=== PATIENT | female | born 1945 | race Caucasian/White ===

== ENCOUNTER 2018-04-29 09:47 | Emergency (ER) | payer MEDICARE, SELFPAY ==
[2018-04-29 09:48] VITALS: BP 160/95; PULSE 89; RESP 18; TEMP 36.4; O2SAT 100; BMI 30.2
--- NOTE | 2018-04-29 10:44 | RAD_ITS ---
STUDY: X-RAY - RIGHT CLAVICLE REASON FOR EXAM: Female, 72 years old. History of fall. Bruising TECHNIQUE: 2 view(s) of the clavicle. COMPARISON: None. FINDINGS: Nondisplaced distal clavicular fracture. No evidence of shoulder dislocation. RAD/Clavicle IMPRESSION: Nondisplaced distal clavicular fracture Electronically Signed: Moe Eller DO at 11:24 EST Tel , Service support ,
[2018-04-29] MEDS: Diphth,Pertuss(Acell),Tet Vac 0.5 ML Vial IM (10:52)
--- NOTE | 2018-04-29 11:38 | ED.VISSUMM ---
- ER Visit Summary Date of Service: 04/29/18 Chief Complaint: Fall History of Present Illness: The patient is a 72 F who presents with right shoulder injury that occurred after a fall last night. Patient states she tripped and fell on her right side. Patient denies any head injury or loss of consciousness. Patient states the pain is worse over the right shoulder. Patient states the pain is worse with any movement. Patient also admits to skin tears of her right forearm. Patient denies any head injury or loss of consciousness. Patient denies any paresthesias or weakness. Physical Examination: Vital signs are stable. Patient is afebrile. Patient is in no acute distress. Musculoskeletal exam reveals tenderness, edema, and ecchymosis over the right clavicle. There is painful range of motion with the right shoulder. There is no deformity noted. There is no tenderness over the cervical spine but there is some mild tenderness of the right cervical paraspinal muscles. There is good range of motion. Strength is 5/5 bilaterally upper and lower extremities. There are no sensory deficits noted. Heart was regular rate and rhythm. Lungs are clear and equal bilaterally. Skin is warm dry. There are superficial skin tears over the ulnar aspect of the right forearm. There is no active bleeding noted. There is no pain over the elbow or forearm. The remaining physical exam is within normal limits. Test Results: X-rays of the right clavicle were obtained. There is a nondisplaced fracture of the distal right clavicle. Emergency Department Course and Treatment: The wounds were cleaned and dressed. Patient was given a tetanus booster. Patient was given a right arm sling for pain. Patient was instructed to follow-up with her primary care physician in 7-10 days. Patient and her understood and were agreeable with the plan. All questions were answered. Disposition: Discharge home Impression: Right clavicle fracture This note was generated with [employer] dictation software. It may contain incorrect words, spelling, and punctuation that were not noted in review of the chart prior to signing ED Disposition - Plan for ED Patient: Disposition: Home or Assisted Living Diagnosis: Right clavicle fracture, Skin tear of right forearm without complication Instructions: ED Fx Clavicle Referrals: Jose Carlos Pompa MD [Primary Care Provider] -
--- NOTE | 2018-04-29 11:46 | ED.DCSUM_ITS ---
- ER Visit Summary Date of Service: 04/29/18 Chief Complaint: Fall History of Present Illness: The patient is a 72 F who presents with right shoulder injury that occurred after a fall last night. Patient states she tripped and fell on her right side. Patient denies any head injury or loss of consciousness. Patient states the pain is worse over the right shoulder. Patient states the pain is worse with any movement. Patient also admits to skin tears of her right forearm. Patient denies any head injury or loss of consciousness. Patient denies any paresthesias or weakness. Physical Examination: Vital signs are stable. Patient is afebrile. Patient is in no acute distress. Musculoskeletal exam reveals tenderness, edema, and ecchymosis over the right clavicle. There is painful range of motion with the right shoulder. There is no deformity noted. There is no tenderness over the cervical spine but there is some mild tenderness of the right cervical paraspinal muscles. There is good range of motion. Strength is 5/5 bilaterally upper and lower extremities. There are no sensory deficits noted. Heart was regular rate and rhythm. Lungs are clear and equal bilaterally. Skin is warm dry. There are superficial skin tears over the ulnar aspect of the right forearm. There is no active bleeding noted. There is no pain over the elbow or forearm. The remaining physical exam is within normal limits. Test Results: X-rays of the right clavicle were obtained. There is a nondisplaced fracture of the distal right clavicle. Emergency Department Course and Treatment: The wounds were cleaned and dressed. Patient was given a tetanus booster. Patient was given a right arm sling for pain. Patient was instructed to follow-up with her primary care physician in 7- 10 days. Patient and her understood and were agreeable with the plan. All questions were answered. Disposition: Discharge home Impression: Right clavicle fracture This note was generated with [employer] dictation software. It may contain incorrect words, spelling, and punctuation that were not noted in review of the chart prior to signing ED Disposition - Plan for ED Patient: Disposition: Home or Assisted Living Diagnosis: Right clavicle fracture, Skin tear of right forearm without complication Instructions: ED Fx Clavicle Referrals: Jose Carlos Pompa MD [Primary Care Provider] -
== END 2018-04-29 11:55 | disposition home or self-care (01) ==
PROVIDERS: Emergency Provider Emergency Medicine; Family Provider Family Medicine; PCP Family Medicine
DX: S42.001A Fracture of unspecified part of right clavicle, initial encounter for closed fracture (principal); S51.811A Laceration without foreign body of right forearm, initial encounter; W18.09XA Striking against other object with subsequent fall, initial encounter; Y93.9 Activity, unspecified; Y92.89 Other specified places as the place of occurrence of the external cause; Y99.9 Unspecified external cause status; Z23 Encounter for immunization; M79.7 Fibromyalgia; M81.0 Age-related osteoporosis without current pathological fracture
CPT/HCPCS: 73000; 90471; 90715; 99284

== ENCOUNTER 2018-11-28 14:06 | Emergency (ER) | payer MEDICARE, SELFPAY ==
[2018-11-28 14:07] VITALS: BP 142/59; PULSE 101; RESP 15; TEMP 36.6; O2SAT 95; BMI 26.4
--- NOTE | 2018-11-28 14:28 | RAD_ITS ---
STUDY: X-RAY - PELVIS AND RIGHT HIP REASON FOR EXAM: Female, 73 years old. Right hip pain following a fall. TECHNIQUE: 3 views of the pelvis and hip. COMPARISON: Comparison is made with prior examination dated December 01, 2015. FINDINGS: Moderate amount of fecal material is seen in the colon. Normal visualized soft tissue structures. Normal bilateral iliac wings, sacroiliac joints and visualized sacrum. Healed right superior and inferior pubic rami fracture. Normal pubic symphysis. Normal bilateral ischial tuberosities. Status post intramedullary adolfo and compression screw fixation of the right intertrochanteric fracture. Normal acetabulum. Normal hip joint. RAD/HIP, UNI W/ Pelvis 2-3 Views IMPRESSION: Healed right superior and inferior pubic rami fractures. Prior ORIF of the right intertrochanteric fracture. Electronically Signed: Ha Stephen, at 15:08 EDT , Service support ,
--- NOTE | 2018-11-28 14:39 | ED.DCSUM_ITS ---
- ER Visit Summary Date of Service: 11/28/18 Chief Complaint: Right hip pain History of Present Illness: The patient is a 73 F who states that today she sustained a fall after tripping on sidewalk and landing on the left hip. She notes superficial abrasion to the right palm. She is eventually able to get up and ambulate. She typically uses a cane and is now switched to a walker. She denies striking her head or any neck or back pain. She notes pain over the medial aspect of the right upper thigh and hip. She has had prior ORIF by Dr. Chavez in 2016 of the left hip (intramedullary rodding and compression screw) Physical Examination: Afebrile vital signs are stable Gen: Well-nourished well-developed Head: Normocephalic atraumatic Eyes: Perrl EOMI ENT: TMs clear no rhinorrhea moist mucous membranes Neck: Supple no lymphadenopathy no JVD nontender CVS: Regular rate rhythm no murmurs normal S1-S2 Respiratory: No distress clear to auscultation bilaterally chest nontender Abdomen: Soft nontender nondistended normal bowel sounds no masses Back: Nontender Extremity: Tender to palpation of the medial proximal thigh. Negative logroll. No shortening. No rotation. Neurovascular intact distal no edema Skin: Normal color no rash Neuro: alert orientated ?3 CN II-XII intact normal strength sensation reflexes Psych: Normal affect normal mood Test Results: X-rays of the right hip and pelvis were obtained this was read as negative for acute fracture Emergency Department Course and Treatment: She was instructed to use her walker. Ice the area anti-inflammatories. Follow-up with primary care if not improving Impression: 1. Mechanical fall 2. Right hip contusion This note was generated with [employer] dictation software. It may contain incorrect words, spelling, and punctuation that were not noted in review of the chart prior to signing ED Disposition - Plan for ED Patient: Disposition: Home or Assisted Living Instructions: Hip Contusion Referrals: Jose Carlos Pompa MD [Primary Care Provider] - 1 Week if not improving
== END 2018-11-28 15:31 | disposition home or self-care (01) ==
PROVIDERS: Emergency Provider Emergency Medicine; Family Provider Family Medicine; PCP Family Medicine
DX: S60.511A Abrasion of right hand, initial encounter (principal); S70.01XA Contusion of right hip, initial encounter; W01.0XXA Fall on same level from slipping, tripping and stumbling without subsequent striking against object, initial encounter; Y92.480 Sidewalk as the place of occurrence of the external cause
CPT/HCPCS: 73502; 99283

== ENCOUNTER 2020-05-22 08:08 | Outpatient (RCR) | payer MEDICARE, SELFPAY ==
[2020-05-22] MEDS: COVID-19 VACC, MRNA(PFIZER)/PF 30 MCG/0.3 ML SYRINGE IM (18:31)
[2020-06-12] MEDS: COVID-19 VACC, MRNA(PFIZER)/PF 30 MCG/0.3 ML SYRINGE IM (18:29)
== END 2020-08-19 23:59 ==
LOC: IMMUN 08:08
PROVIDERS: PCP Family Medicine; Referring Provider Family Medicine; Visit Provider Family Medicine
DX: Z23 Encounter for immunization (principal)
CPT/HCPCS: 0001A; 0002A; 91300

== ENCOUNTER 2022-09-07 16:56 | Inpatient (IN) | payer MEDICARE, SELFPAY ==
[2022-09-07] VITALS (7 sets, daily range): BP systolic 95–176; BP diastolic 60–100; PULSE 86–94; RESP 14–18; TEMP 36.1–36.6; O2SAT 92–100; BMI 30.4; BMI 27.2
--- NOTE | 2022-09-07 17:11 | EKG12_ITS ---
Test Reason : LE PAIN Blood Pressure : / mmHG Vent. Rate : 093 BPM Atrial Rate : 093 BPM P-R Int : 140 ms QRS Dur : 068 ms QT Int : 388 ms P-R-T Axes : 046 010 038 degrees QTc Int : 482 ms Normal sinus rhythm Normal ECG Confirmed by CAITLIN SCHMIDT, TAYLOR ([id number]), script editor ARASH BARRAZA ([id number]) on 09/08/2022 10:05:09 AM Referred By: Confirmed By:TAYLOR TUCKER MD
[2022-09-07 17:35] LABS: Absolute Lymphocyte Count 1.37 X10^3/uL (0.83-4.51); Absolute Neutrophil Count 5.5 X10^3/uL (2.0-7.7); Basophil# 0.05 X10^3/uL; Basophil% 0.6 % (0-1); Eosinophils% 3.8 % (0-5); Hemoglobin 11.7 g/dL (12.0-15.0); Lymphocyte # 1.37 X10^3/ul (0.83-4.51); Lymphocyte % 17.5 % (19-41); Mean Corp Hgb Conc 32.5 g/dL (32-36); Mean Corpuscular Hgb 30.8 pg (27.0-32.0); Mean Corpuscular Volume 94.7 fL (81-99); Mean Platelet Vol. 9.8 fl (6.2-12.0); Monocyte% 7.7 % (0-10); NRBC Flagged by Analyzer 0 % (0-5); Neutrophil # 5.48 X10^3/uL (2.7-7.7); Neutrophil % 70.1 % (47-70); Platelet Count 296 K/mm3 (150-450); RBC Distribution Width SD 45.5 fl (35.1-43.9); White Blood Count 7.8 K/mm3 (4.4-11.0)
--- NOTE | 2022-09-07 17:35 | RAD_ITS ---
INDICATION: pain EXAMINATION/TECHNIQUE: X-RAY - XR Hip Unilateral with Pelvis when performed; 2-3 Views COMPARISON: 11/28/2018. FINDINGS: Acute, comminuted basicervical fracture of the left femoral neck with mild lateral displacement of the femoral shaft and mild varus angulation. No additional fracture. Prior internal fixation of the right hip. No destructive bone changes. Joint spaces are well-maintained. Normal alignment. Soft tissues are unremarkable. No radiopaque foreign body or soft tissue gas. RAD/HIP, UNI W/ Pelvis 2-3 Views IMPRESSION: Acute fracture of the left femoral neck. Electronically Signed: Janette Levine MD at 18:06 EDT Reading Location ID and State: [id number] / Tel , Service support ,
--- NOTE | 2022-09-07 17:35 | RAD_ITS ---
INDICATION: preop EXAMINATION/TECHNIQUE: X-RAY - XR Chest 1 View COMPARISON: 03/17/2016. FINDINGS: LINES/DEVICES: None. LUNGS: No consolidation, edema or effusion. No pneumothorax. MEDIASTINUM AND CARDIOVASCULAR STRUCTURES: Cardiac silhouette not enlarged. Central airways and mediastinal contour are unremarkable. BONES AND SOFT TISSUES: Prior lower thoracic vertebroplasty. Old healed right rib fractures. RAD/Chest 1 View (Portable) IMPRESSION: No radiographic evidence of acute cardiopulmonary disease. Electronically Signed: Janette Levine MD at 18:12 EDT Reading Location ID and State: [id number] / Tel , Service support ,
[2022-09-07 18:09] LABS: Anion Gap 7 (5-15); BUN 21 mg/dL (7-18); BUN/Creat Ratio 25.9 RATIO (10-20); Calcium,Total 8.4 mg/dL (8.5-10.1); Chloride 111 mmol/L (98-107); Creatinine, Serum 0.81 mg/dL (0.55-1.02); EST Glomerular Filtration Rate 73 mL/min (>60); Est Glom Filt Rate - Afr Amer 89 mL/min (>60); Estimated Creatinine Clearance 45.98 ml/min; Glucose 102 mg/dL (74-106); Potassium 4.2 mmol/L (3.5-5.1); Sodium Level 140 mmol/L (136-145)
[2022-09-07 18:32] LABS: Mucous, Urine 0 SEEN /hpf (<or=2+)
[2022-09-07 18:33] LABS: Color, Urine Yellow (Yellow); Glucose, Dipstick Normal (Normal); Ketone-Dipstick 5 mg/dl (Negative); Leukocyte Esterase-Dipstick 25 /ul (Negative); Nitrite-Dipstick Positive (Negative); Occult Blood-Urine 50 /ul (Negative); Protein-Dipstick 15 mg/dl (Negative); Urine Bilirubin Dipstick Negative (Negative); Urine Clarity Sl. Cloudy (Clear); Urine Urobilinogen Normal (Normal)
[2022-09-07] MEDS: Morphine 4 MG/ML Syringe IV ×2 (18:50→19:50)
--- NOTE | 2022-09-07 18:59 | ED.VIS.LOWEX ---
HPI History of Present Illness Chief Complaint: Lower Extremity Injury Narrative Narrative: 76-year-old female status post mechanical fall after tripping and falling onto her left hip. She is unable to ambulate. She was transported by EMS. Report is that they gave her 200 mcg of fentanyl. Patient still having some pain. Denies hitting head or LOC. She is not on anticoagulation. She has history of right hip fracture distantly. [facility] Medical History Fibromyalgia Osteoporosis Home Medications calcium carbonate 600 mg calcium (1,500 mg) tablet 600 mg PO DAILY ##30 06/19/15 [Rx Last Taken Unknown] cholecalciferol (vitamin D3) 25 mcg (1,000 unit) tablet (Vitamin D3) 2,000 unit PO DAILY ##30 06/19/15 [Rx Last Taken Unknown] fluoxetine 20 mg capsule 20 mg PO BID ##60 06/19/15 [Rx Last Taken Unknown] cszedhss-wff-ajrof acid 0.4 mg-lycopene 300 mcg-lutein 250 mcg tablet (Centrum Silver) 1 ea PO DAILY ##30 06/19/15 [Rx Last Taken Unknown] acetaminophen 325 mg tablet (Tylenol) 650 mg PO Q6H PRN PRN Mild Pain (scale 0-3)/T>100.7 ##0 03/20/16 [Rx Last Taken Unknown] alendronate 70 mg tablet (Fosamax) 70 mg PO QWEEK ##1 03/20/16 [Rx Last Taken Unknown] aluminum-mag hydroxide-simethicone 400 mg-400 mg-40 mg/5 mL oral susp (Mag-Al Plus Extra Strength) 30 ml PO Q6H PRN PRN Gastric Burning ##0 03/20/16 [Rx Last Taken Unknown] cyclobenzaprine 10 mg tablet 5 mg PO TID PRN PRN Muscle Spasm ##0 03/20/16 [Rx Last Taken Unknown] docusate sodium 100 mg capsule (DOK) 200 mg PO BID PRN PRN Constipation ##0 03/20/16 [Rx Last Taken Unknown] levothyroxine 112 mcg tablet 88 mcg PO DAILY@0600 04/29/18 [History Last Taken Unknown] Allergy/AdvReac Type Severity Reaction Status Date / Time codeine Allergy Unknown Verified 09/07/22 17:01 codeine phosphate AdvReac Unknown Verified 09/07/22 17:01 [From Tylenol-Codeine #3] nabumetone [From Relafen] AdvReac Unknown Verified 09/07/22 17:01 naproxen AdvReac Unknown Verified 09/07/22 17:01 Social History Smoking Status: Never smoker ROS ROS ED Constitutional Constitutional ED: Denies chills, fever(s) or sweats Eyes Eyes: Denies blurry vision or change in vision ENT ENT ED: Denies ear pain or sore throat Cardiovascular Cardiovascular: Denies chest pain, palpitations or racing heartbeat Respiratory/Chest Respiratory/Chest: Denies cough, dyspnea or sputum Gastrointestinal Gastrointestinal: Denies abdominal pain, constipation, diarrhea, nausea or vomiting Genitourinary Genitourinary ED: Denies dysuria, hematuria or urinary frequency Musculoskeletal Musculoskeletal: Reports other Details: Pain in left hip Integumentary Denies abscess, Abrasions or rash Neurologic Neurologic: Denies headache(s), paresthesias or weakness Psychiatric Psychiatric: Denies anxiety, depression, suicidal ideation or suicidal thoughts Endocrine Endocrinology: Denies polydipsia or polyuria EXAM Physical Exam Const Vital Signs: 09/07/22 16:57 Temperature 97.5 F L Temperature Source Oral Pulse Rate 94 Respiratory Rate 16 Blood Pressure 159/100 H Blood Pressure Mean 119 Pulse Ox 97 Oxygen Delivery Method Room Air Positive well nourished General Appearance ED: NAD HEENT Reports moist mucous membranes normocephalic and atraumatic Resp normal respiratory effort and no retractions Cardio regular rate and regular rhythm Extremity Extremity Narrative: Tenderness palpation left greater trochanter. Positive logroll on the left. Neuro oriented x3 and CN's II-XII intact bilaterally Sensorium / Orientation: alert Psych mental status grossly normal Skin no wounds MDM MDM MDM Narrative Medical decision making narrative: Patient presenting with left hip pain. She states it was a mechanical fall. No head injury or LOC. She is not have any other complaints. CBC was obtained to assess white blood cell count, hemoglobin, platelets, differential. BMP to assess renal function, electrolytes. Urinalysis to assess for UTI. Encinas catheter was placed for patient comfort that she is not can be able to ambulate. Left hip x-ray was obtained as well as a chest x-ray for preoperative planning. EKG was also obtained for this reason. GI my interpretation shows normal sinus rhythm with a ventricular rate 93 bpm without sign of ischemic change or ectopy. Chest x-ray shows no acute process on my interpretation. Radiologist interprets this and agrees. Left hip x-ray shows a femoral neck fracture on my interpretation. Radiology interprets this and agrees. Urinalysis concerning for UTI so she was given a gram of Rocephin. Discussed with Dr. Manriquez. Will discuss with the hospitalist for admission. Impression: 1. Mechanical fall 2. Left hip fracture 3. UTI Lab Data Attestation: I reviewed the patient's lab results. Labs: Laboratory Results - last 24 hr 09/07/22 09/07/22 09/07/22 17:25 17:25 18:25 WBC 7.8 RBC 3.80 L Hgb 11.7 L Hct 36.0 L MCV 94.7 MCH 30.8 MCHC 32.5 RDW Std Deviation 45.5 H RDW Coeff of Serafin 13.0 Plt Count 296 MPV 9.8 Immature Gran % (Auto) 0.300 Neut % (Auto) 70.1 H Lymph % (Auto) 17.5 L Noble % (Auto) 7.7 Eos % (Auto) 3.8 Baso % (Auto) 0.6 Absolute Neuts (auto) 5.5 Absolute Lymphs (auto) 1.37 Nucleated RBC % 0 Sodium 140 Potassium 4.2 Chloride 111 H Carbon Dioxide 22.0 Anion Gap 7 BUN 21 H Creatinine 0.81 Estim Creat Clear Calc 45.98 Est GFR (MDRD) Af Amer 89 Est GFR (MDRD) Non-Af 73 BUN/Creatinine Ratio 25.9 H Glucose 102 Calcium 8.4 L Urine Color Yellow Urine Clarity Sl. Cloudy Urine pH 6.0 Ur Specific [place] 1.020 Urine Protein 15 H Urine Glucose (UA) Normal Urine Ketones 5 H Urine Occult Blood 50 H Urine Nitrite Positive H Urine Bilirubin Negative Urine Urobilinogen Normal Ur Leukocyte Esterase 25 H Radiography Diagnostic Testing: Clinical Impression(s) from Imaging Studies Chest X-Ray 09/07/22 17:35 IMPRESSION: No radiographic evidence of acute cardiopulmonary disease. Electronically Signed: Janette Levine MD at 18:12 EDT Reading Location ID and State: [id number] / Tel , Service support , Hip/Pelvis X-Ray 09/07/22 17:35 IMPRESSION: Acute fracture of the left femoral neck. Electronically Signed: Janette Levine MD at 18:06 EDT , Discharge Plan Triage Chief Complaint: Lower Extremity Injury ED Provider: Giancarlo Wooten Dx/Rx/DC Orders Prescriptions: No Action cholecalciferol (vitamin D3) [Vitamin D3] 1,000 UNIT tablet 2,000 unit PO DAILY Qty: 30 0RF calcium carbonate 600 MG tablet 600 mg PO DAILY Qty: 30 0RF fluoxetine 20 MG capsule 20 mg PO BID Qty: 60 0RF vuneikox-ctp-WB-lycopen-lutein [Centrum Silver] 1 EACH tablet 1 ea PO DAILY Qty: 30 0RF cyclobenzaprine 10 MG tablet 5 mg PO TID PRN PRN (Reason: Muscle Spasm) Qty: 0 0RF acetaminophen [Tylenol] 325 MG tablet 650 mg PO Q6H PRN PRN (Reason: Mild Pain (scale 0-3)/T>100.7) Qty: 0 0RF docusate sodium [DOK] 100 MG capsule 200 mg PO BID PRN PRN (Reason: Constipation ) Qty: 0 0RF alum-mag hydroxide-simeth [Mag-Al Plus Extra Strength] 30 ML suspension 30 ml PO Q6H PRN PRN (Reason: Gastric Burning) Qty: 0 0RF alendronate [Fosamax] 70 MG tablet 70 mg PO QWEEK Qty: 1 0RF levothyroxine 112 MCG tablet 88 mcg PO DAILY@0600 Primary Care Provider: Jose Carlos Pompa Referrals: Jose Carlos Pompa MD [Primary Care Provider] -
[2022-09-07 19:03] LABS: Amorphous Sediment 1+ URATE; Bacteria RARE /hpf (None Seen); Red Blood Cells-Urine 0-5 SEEN /hpf (0-5); Squamous Epithelial Cells - UA 0-5 SEEN /hpf (5-10); White Blood Cells 0-5 SEEN /hpf (0-5)
--- NOTE | 2022-09-07 19:13 | PCM.HP.STD ---
HPI - General General Date of Service: 09/07/22 Chief Complaint: Fall, L hip pain. HPI Narrative The patient is a 76 y/o F w/ PMHx: Chronic normocytic anemia, HLD, GERD, Anxiety and Depression, Hypothyroidism, PAF remotely not on any chronic anticoagulant therapy, Fibromylagia who presents to the [facility] ED on 09/07/22 with history unfortunately chemical fall following tripping and landing on her left hip unable to ambulate with intractable pain prompting EMS call with administration of 200 mcg total of fentanyl while in her pain with no loss of consciousness and nor any history of hitting her head. She does admit to recent several day history of urinary frequency and mild dysuria as well as sensation of incompletely emptying her bladder. Despite recent morphine administration in the ED she notes currently pain is severe, sharp, worse with any movement of the left lower extremity, tentative 10. Work-up in the ED included T97.5, heart rate 94, respiratory rate 16, BP 159/100, 97% room air, CBC with WC 7.8, hemoglobin 11.7, MCV 94.7, platelet 296 without marked shift, BMP with chloride 111, BUN/creatinine 21/0.81, urinalysis not completely resulted but currently specific remedy 1.020, ketone 5, occult blood 50, positive nitrite, 25 leukocyte Estrace, awaiting urine RBC/WBC/urine bacteria assessment, chest x-ray with no acute cardiopulmonary findings, plain film of the left hip with an acute fracture of the left femoral neck demonstrated, EKG SR without acute evidence of ischemia. In the ED patient ministered morphine 4 mg IV x1, Rocephin 1 g IV x1. ED discussed case with Dr. Manriquez. [facility] Medical History (Updated 09/07/22 @ 19:[address] Yessenia Andres MD) Anxiety and depression Chronic anemia Fibromyalgia GERD (gastroesophageal reflux disease) HLD (hyperlipidemia) Hypothyroid Obesity Osteoporosis PAF (paroxysmal atrial fibrillation) Home Medications alendronate 70 mg tablet 70 mg PO UD 09/07/22 [History Last Taken Unknown] atorvastatin 20 mg tablet 20 mg PO QHS 09/07/22 [History Last Taken Unknown] fluoxetine 40 mg capsule 40 mg PO DAILY 09/07/22 [History Last Taken Unknown] levothyroxine 75 mcg tablet 75 mcg PO DAILY 09/07/22 [History Last Taken Unknown] omeprazole 20 mg capsule,delayed release 20 mg PO DAILY 09/07/22 [History Last Taken Unknown] Allergy/AdvReac Type Severity Reaction Status Date / Time codeine Allergy Unknown Verified 09/07/22 17:01 codeine phosphate AdvReac Unknown Verified 09/07/22 17:01 [From Tylenol-Codeine #3] nabumetone [From Relafen] AdvReac Unknown Verified 09/07/22 17:01 naproxen AdvReac Unknown Verified 09/07/22 17:01 Family History (Updated 09/07/22 @ 19:[address] Yessenia Andres MD) Mother Cancer Father Cancer Surgical History (Updated 09/07/22 @ 19:[address] Yessenia Andres MD) H/O ovarian cystectomy History of section History of total right hip replacement S/P kyphoplasty S/P ORIF (open reduction internal fixation) fracture Social History (Updated 09/07/22 @ 19:[address] Yessenia Andres MD) household members: spouse Smoking Status: Never smoker alcohol intake: never substance use type: does not use ROS ROS Narrative Admission Review of Systems: CONSTITUTIONAL: No weight loss, fever, chills, + weakness or fatigue. HEENT: Eyes: No visual loss, blurred vision, double vision or yellow sclerae. Ears, Nose, Throat: No hearing loss, sneezing, congestion, runny nose or sore throat. SKIN: No rash or itching, lesions, wounds. CARDIOVASCULAR: No chest pain, chest pressure or chest discomfort, palpitations, edema, orthopnea, syncopal events. RESPIRATORY: No shortness of breath, cough or sputum, wheezing, hemoptysis. GASTROINTESTINAL: No anorexia, nausea, vomiting or diarrhea, abdominal pain, melena, BRBPR. GENITOURINARY: + Dysuria, sensation retention/incomplete emptying, frequency. NEUROLOGICAL: No headache, dizziness, syncope, paralysis, ataxia, numbness or tingling in the extremities, focal weakness, change in bowel or bladder control, seizure. MUSCULOSKELETAL: + muscle, back pain, joint pain or stiffness. HEMATOLOGIC: + anemia. LYMPHATICS: No enlarged nodes. No history of splenectomy. PSYCHIATRIC: + history of depression or anxiety. ENDOCRINOLOGIC: No reports of sweating, cold or heat intolerance. No polyuria or polydipsia. ALLERGIES: No history of asthma, hives, eczema or rhinitis. Vital Signs Vital Signs Vital Signs: 09/07/22 16:57 Temperature 97.5 F L Temperature Source Oral Pulse Rate 94 Respiratory Rate 16 Blood Pressure 159/100 H Blood Pressure Mean 119 Pulse Ox 97 Oxygen Delivery Method Room Air Weight Weight: 165 lb 2.02 oz Body Mass Index (BMI) 30.4 Physical Exam Narrative Physical Examination: General: Awake, alert, oriented x 3 and cooperative, laying in the ED bed, uncomfortable appearing, reporting 10 of 10 left hip pain. Skin: Normal color, normal turgor, no icterus, no cyanosis. HEENT: AT/NC, EOMI, PERRLA, mildly dry MM, no carotid bruits or JVD noted. Lungs: Mildly diminished, greater bases, proper effort, no rales, ronchi or wheezing. Heart: Currently regular rate and rhythm; no gallop, rub audible. Abdomen: Soft, obese, NTTP, ND, normal BS, no HSM. Extremities: No cyanosis, no clubbing, peripheral pulses intact, status post fall with left hip fracture with external rotation noted. Neurological: Patient awake, alert, oriented as noted, cognitive function intact; pupils equally reactive to light and accommodation, cranial nerves grossly normal, moving extremities however limited left lower extremity given recent fall with hip fracture, accordingly strength severely globally decreased. Psychiatric: Affect appears uncomfortable, no acute evidence of depressive or anxiety feelings but does have underlying history. Results Lab / Micro Data Result Diagrams: 09/07/22 17:25 09/07/22 17:25 Labs: Laboratory Results - last 24 hr 09/07/22 17:25: WBC 7.8, RBC 3.80 L, Hgb 11.7 L, Hct 36.0 L, MCV 94.7, MCH 30.8, MCHC 32.5, RDW Std Deviation 45.5 H, RDW Coeff of Serafin 13.0, Plt Count 296, MPV 9.8, Immature Gran % (Auto) 0.300, Neut % (Auto) 70.1 H, Lymph % (Auto) 17.5 L, [place] % (Auto) 7.7, Eos % (Auto) 3.8, Baso % (Auto) 0.6, Absolute Neuts (auto) 5.5, Absolute Lymphs (auto) 1.37, Nucleated RBC % 0 09/07/22 17:25: Sodium 140, Potassium 4.2, Chloride 111 H, Carbon Dioxide 22.0, Anion Gap 7, BUN 21 H, Creatinine 0.81, Estim Creat Clear Calc 45.98, Est GFR (MDRD) Af Amer 89, Est GFR (MDRD) Non-Af 73, BUN/Creatinine Ratio 25.9 H, Glucose 102, Calcium 8.4 L 09/07/22 18:25: Urine Color Yellow, Urine Clarity Sl. Cloudy, Urine pH 6.0, Ur Specific [place] 1.020, Urine Protein 15 H, Urine Glucose (UA) Normal, Urine Ketones 5 H, Urine Occult Blood 50 H, Urine Nitrite Positive H, Urine Bilirubin Negative, Urine Urobilinogen Normal, Ur Leukocyte Esterase 25 H, Urine RBC 0-5 SEEN, Urine WBC 0-5 SEEN, Ur Squamous Epith Cells 0-5 SEEN, Amorphous Sediment 1+ URATE, Urine Bacteria RARE, Urine Mucus 0 SEEN Radiology Impression Chest X-Ray 09/07/22 17:35 IMPRESSION: No radiographic evidence of acute cardiopulmonary disease. Electronically Signed: Janette Levine MD at 18:12 EDT Reading Location ID and State: Keanu Paiz MD Tel , Service support , Hip/Pelvis X-Ray 09/07/22 17:35 IMPRESSION: Acute fracture of the left femoral neck. Electronically Signed: Janette Levine MD at 18:06 EDT Reading Location ID and State: Keanu Paiz MD Tel , Service support , Assessment & Plan Assessment/Plan (1) Hip fracture: PLAN: Plan The patient is a 76 y/o F w/ PMHx: Chronic normocytic anemia, HLD, GERD, Anxiety and Depression, Hypothyroidism, PAF remotely not on any chronic anticoagulant therapy, Fibromylagia who presents to the [facility] ED on 09/07/22 with history unfortunately chemical fall following tripping and landing on her left hip unable to ambulate with intractable pain prompting EMS call with administration of 200 mcg total of fentanyl while in her pain with no loss of consciousness and nor any history of hitting her head. #1. General debility, left hip pain s/p mechanical fall w/ left femoral neck fracture: Plain film noting left femoral neck. Orthopedic surgery consulted from ED. Will admit to MS, maintain NPO after midnight, continue gentle IVFs, pending UCx w/ concern UTI, continue treatment as noted #2, fuller placement, monitor I/Os, frequent positioning, fall precautions, as needed pain, anti-emetic regimen. PT/OT following operative intervention. CM consulted for discharge planning. Per surgical risk calculator given patient's underlying history, ED evaluation including imaging and EKG would consider patient appropriate risk to proceed to operative intervention. EKG with SR without acute findings. Labs baseline stable. No history of chest pain or dyspnea, able to perform normal activities limited only by arthritic disease and fibromyalgia. Discussed case and agreement with progression with orthopedic surgery. #2. Acute Urinary Tract Infection: UA upon ED evaluation remarkable although full urinalysis is pending but suspicion, pending UCx, will continue IVFs, monitor I/Os, continue IV Rocephin w/ transition as able pending sensitivities and speciation. #3. Elevated BP without hypertensive diagnosis: Significantly elevated BP upon presentation, likely pain related, will continue closely monitor and add regimen if appropriate, as needed IV hydralazine in interim. #4. Hypothyroidism: We will continue patient on levothyroxine regimen. #5. Hyperlipidemia: We will continue patient on statin therapy. #6. History remote PAF: Patient not on any rate or rhythm agent, not anticoagulated possibly secondary to high fall risk, noted history remotely, most recent echocardiogram noted 2012 but again she has had no recurrence, echo with normal LV size, LV systolic function normal, EF 55%, mild SANKET, mild TVI. #7. Obesity: Weight loss and lifestyle changes encouraged. #8. GERD: We will continue patient home PPI. #9. Chronic normocytic anemia: Admission hemoglobin 11.7, MCV 94.7, baseline hemoglobin appears primarily 10-11 although most recent prior noted 03/17/2016 13.2, has vacillated over the years, will continue to trend. #10. Anxiety and depression: We will continue patient home fluoxetine home regimen. #11. DVT prophylaxis: SCDs, defer chemoprophylaxis for planned operative intervention. #12. CODE status: Patient does not have healthcare power of [employer] Supervisor in place however she does have a living will set up. Her who is present regardless she notes would be her decision-maker if she was unable. Discussed CODE status at length including difference between FULL code, DNR-CCA and DNR-CC status. Following discussions about the differences in these status, requested Full Code status. Advanced Care Planning Face to Face Time: 16 minutes. Admission Evaluation Time spent evaluating chart, patient history, patient evaluation, care planning and discussion with specialists: 75 minutes. Charges/Coding Visit Charges Inpatient E&M: 69425 Init Hosp L3 Procedures Hospitalists Procedures: 19059 Advncd Care Plan 30 Min
[2022-09-07] MEDS: Ceftriaxone 1 GM/50 ML BAG IV (19:21)
--- NOTE | 2022-09-07 20:29 | CON.PCM.OR_ITS ---
HPI Consult Data Date of Consult: 09/07/22 HPI Narrative Reason for Consultation: Left hip fracture HPI Narrative: MICAELA COCHRAN, is a 76 F who presents after mechanical fall from standing height onto the left side earlier today. She was brought to [facility] emergency department where x-rays revealed a comminuted intertrochanteric left femur fracture. Patient was admitted under the service of hospitalist. Saw the patient in consultation this evening. She denied any head injury or loss consciousness. Denies any other new pain. Denies fevers, chills, nausea vomiting, chest pain or shortness of breath. Patient is a community ambulator with utilization of both a cane and a walker intermittently. She denies any a ntecedent left hip or groin pain. [facility] Medical History (Updated 09/07/22 @ 19:[address] Yessenia Andres MD) Anxiety and depression Chronic anemia Fibromyalgia GERD (gastroesophageal reflux disease) HLD (hyperlipidemia) Hypothyroid Obesity Osteoporosis PAF (paroxysmal atrial fibrillation) Home Medications alendronate 70 mg tablet 70 mg PO UD 09/07/22 [History Last Taken Unknown] atorvastatin 20 mg tablet 20 mg PO QHS 09/07/22 [History Last Taken Unknown] fluoxetine 40 mg capsule 40 mg PO DAILY 09/07/22 [History Last Taken Unknown] levothyroxine 75 mcg tablet 75 mcg PO DAILY 09/07/22 [History Last Taken Unknown] omeprazole 20 mg capsule,delayed release 20 mg PO DAILY 09/07/22 [History Last Taken Unknown] Allergy/AdvReac Type Severity Reaction Status Date / Time codeine Allergy Unknown Verified 09/07/22 17:01 codeine phosphate AdvReac Unknown Verified 09/07/22 17:01 [From Tylenol-Codeine #3] nabumetone [From Relafen] AdvReac Unknown Verified 09/07/22 17:01 naproxen AdvReac Unknown Verified 09/07/22 17:01 Family History (Updated 09/07/22 @ 19:[address] Yessenia Andres MD) Mother Cancer Father Cancer Surgical History (Updated 09/07/22 @ 19:[address] Yessenia Andres MD) H/O ovarian cystectomy History of section History of total right hip replacement S/P kyphoplasty S/P ORIF (open reduction internal fixation) fracture Social History (Updated 09/07/22 @ 19:[address] Yessenia Andres MD) household members: spouse Smoking Status: Never smoker alcohol intake: never substance use type: does not use ROS ROS Narrative 12 point review systems obtained, negative unless otherwise noted in HPI. Vital Signs Vital Signs Vital Signs: 09/07/22 16:57 09/07/22 19:00 09/07/22 20:03 Temperature 97.5 F L 97 F L Temperature Source Oral Temporal Pulse Rate 94 92 91 Respiratory Rate 16 15 14 Blood Pressure 159/100 H 176/98 H 159/91 H Blood Pressure Mean 119 124 113 Pulse Ox 97 100 92 Oxygen Delivery Method Room Air Room Air Room Air Weight Weight: 165 lb 2.02 oz Body Mass Index (BMI) 30.4 Physical Exam Narrative General -A&Ox3, NAD, appears stated age. Vital signs stable, afebrile. Respiratory -normal work of breathing, no intercostal retractions. CV -pulses regular, brisk capillary refill ?4 limbs. Abdomen-soft, nontender, nondistended. No guarding, rigidity, rebound tenderness. Musculoskeletal/neurologic -full range of motion nontender throughout bilateral upper extremities, right lower extremity with full sensation and strength in all dermatomes and myotomes. No midline cervical tenderness. Left lower extremity-no obvious deformity. Pain with logroll of the left lower extremity. Nontender throughout the left knee femoral shaft, tibial shaft and left foot/ankle. Brisk capillary refill. Sensation intact light touch L3-S1 dermatomes. DF, PF, EHL intact. DP, PT 2+. Pelvis is stable, nontender. Skin is intact without lacerations, abrasions. No ecchymosis noted. Lab / Micro Data Result Diagrams: 09/07/22 17:25 09/07/22 17:25 Labs: Laboratory Results - last 24 hr 09/07/22 17:25: WBC 7.8, RBC 3.80 L, Hgb 11.7 L, Hct 36.0 L, MCV 94.7, MCH 30.8, MCHC 32.5, RDW Std Deviation 45.5 H, RDW Coeff of Serafin 13.0, Plt Count 296, MPV 9.8, Immature Gran % (Auto) 0.300, Neut % (Auto) 70.1 H, Lymph % (Auto) 17.5 L, [place] % (Auto) 7.7, Eos % (Auto) 3.8, Baso % (Auto) 0.6, Absolute Neuts (auto) 5.5, Absolute Lymphs (auto) 1.37, Nucleated RBC % 0 09/07/22 17:25: Sodium 140, Potassium 4.2, Chloride 111 H, Carbon Dioxide 22.0, Anion Gap 7, BUN 21 H, Creatinine 0.81, Estim Creat Clear Calc 45.98, Est GFR (MDRD) Af Amer 89, Est GFR (MDRD) Non-Af 73, BUN/Creatinine Ratio 25.9 H, Glucose 102, Calcium 8.4 L 09/07/22 18:25: Urine Color Yellow, Urine Clarity Sl. Cloudy, Urine pH 6.0, Ur Specific [place] 1.020, Urine Protein 15 H, Urine Glucose (UA) Normal, Urine Ketones 5 H, Urine Occult Blood 50 H, Urine Nitrite Positive H, Urine Bilirubin Negative, Urine Urobilinogen Normal, Ur Leukocyte Esterase 25 H, Urine RBC 0-5 SEEN, Urine WBC 0-5 SEEN, Ur Squamous Epith Cells 0-5 SEEN, Amorphous Sediment 1+ URATE, Urine Bacteria RARE, Urine Mucus 0 SEEN Radiology Impression Chest X-Ray 09/07/22 17:35 IMPRESSION: No radiographic evidence of acute cardiopulmonary disease. Electronically Signed: Janette Levine MD at 18:12 EDT Reading Location ID and State: Keanu Paiz MD Tel , Service support , Hip/Pelvis X-Ray 09/07/22 17:35 IMPRESSION: Acute fracture of the left femoral neck. Electronically Signed: Janette Levine MD at 18:06 EDT Reading Location ID and State: Keanu Paiz MD Tel , Service support , Assessment & Plan Assessment/Plan (1) Hip fracture: PLAN: Patient sustained a left intertrochanteric proximal femur fracture. -Closed, neurovascularly intact -Isolated injury -Recommending surgical intervention in the form of left femur cephalomedullary nailing -I discussed the procedure-its risks, benefits and alternative. Risks include but are not limited to bleeding, infection, loss of life or limb, risk of anesthesia, persistent pain or disability, need for additional surgery, nonunion, malunion, failure of orthopedic hardware, neurovascular injury, DVT or PE. Patient expressed understanding these risks and wished proceed with surgery. -Maintenance IV fluids, clear liquid diet after midnight n.p.o. at 2 hours prior to surgery -Type and screen -2 g Ancef on-call to the OR -Bedrest, heel protectors -Plan to proceed with surgery later today when OR becomes available Thank you for this consultation.
[2022-09-07] MEDS: 0.9% Saline Lock 10 ML Syringe IV (21:46)
[2022-09-07] MEDS: Senna/Docusate Sodium 1 Tablet 2 TABLET PO (21:46)
[2022-09-07] MEDS: 0.9% Normal Saline 1,000 ML 75 ML IV (21:46)
[2022-09-07] MEDS: Morphine 2 MG/ML Syringe IV (21:46)
[2022-09-07] MEDS: Atorvastatin Calcium 20 MG Tablet PO (21:46)
[2022-09-07] MEDS: hydrALAZINE 20 MG/ML Vial 10 MG IV (21:48)
[2022-09-08] VITALS (10 sets, daily range): BP systolic 107–141; BP diastolic 61–96; PULSE 93–104; RESP 16–22; TEMP 36.1–37.4; O2SAT 93–96; BMI 27.3
[2022-09-08] MEDS: Acetaminophen 325 MG Tablet 650 MG PO (00:15)
[2022-09-08] MEDS: oxyCODONE 5 MG Tablet PO (00:15)
--- NOTE | 2022-09-08 04:36 | RAD_ITS ---
INDICATION: pre op EXAMINATION/TECHNIQUE: X-RAY - XR Chest 1 View COMPARISON: 09/07/2022. FINDINGS: LINES/DEVICES: None. LUNGS: No consolidation or evidence of an effusion. No evidence of edema or a pneumothorax. MEDIASTINUM AND CARDIOVASCULAR STRUCTURES: Cardiac silhouette is normal in size and contour. Mediastinum is unremarkable. Moderate size hiatal hernia. BONES AND SOFT TISSUES: No acute abnormality. RAD/Chest 1 View (Portable) IMPRESSION: 1. No evidence of acute cardiopulmonary disease. 2. Moderate size hiatal hernia. Electronically Signed: Ramone hCandler DO at 7:19 EDT ,
--- NOTE | 2022-09-08 07:18 | PN.HOSP_ITS ---
Reason for Visit Reason for Visit: Diagnoses Fracture of unspecified part of neck of unspecified femur, initial encounter for closed fracture (09/07/22) Subjective Subjective No events overnight. States that she falls frequently. Objective Data Objective Data Vital Signs: Vital Signs Temp Pulse Resp BP Pulse Ox O2 Del Method 36.6 C 93 16 108/66 93 Room Air 09/08/22 00:11 09/08/22 00:11 09/08/22 00:11 09/08/22 00:11 09/08/22 00:11 09/08/22 01:52 Oxygen Delivery Method Room Air Weight: 63.276 kg Body Mass Index (BMI) 27.2 Intake & Output: Intake and Output for Last 24 Hours 09/06/22 09/07/22 09/08/22 23:59 23:59 23:59 Intake Total 50 / 50 Output Total 450 / 450 Balance 50 / -400 -450 / -450 Lab / Micro Data 09/08/22 05:35 09/08/22 05:35 Labs: Laboratory Results - last 24 hr 09/07/22 17:25: WBC 7.8, RBC 3.80 L, Hgb 11.7 L, Hct 36.0 L, MCV 94.7, MCH 30.8, MCHC 32.5, RDW Std Deviation 45.5 H, RDW Coeff of Serafin 13.0, Plt Count 296, MPV 9.8, Immature Gran % (Auto) 0.300, Neut % (Auto) 70.1 H, Lymph % (Auto) 17.5 L, [place] % (Auto) 7.7, Eos % (Auto) 3.8, Baso % (Auto) 0.6, Absolute Neuts (auto) 5.5, Absolute Lymphs (auto) 1.37, Nucleated RBC % 0, Sodium 140, Potassium 4.2, Chloride 111 H, Carbon Dioxide 22.0, Anion Gap 7, BUN 21 H, Creatinine 0.81, Estim Creat Clear Calc 45.98, Est GFR (MDRD) Af Amer 89, Est GFR (MDRD) Non-Af 73, BUN/Creatinine Ratio 25.9 H, Glucose 102, Calcium 8.4 L 09/07/22 18:25: Urine Color Yellow, Urine Clarity Sl. Cloudy, Urine pH 6.0, Ur Specific [place] 1.020, Urine Protein 15 H, Urine Glucose (UA) Normal, Urine Ketones 5 H, Urine Occult Blood 50 H, Urine Nitrite Positive H, Urine Bilirubin Negative, Urine Urobilinogen Normal, Ur Leukocyte Esterase 25 H, Urine RBC 0-5 SEEN, Urine WBC 0-5 SEEN, Ur Squamous Epith Cells 0-5 SEEN, Amorphous Sediment 1+ URATE, Urine Bacteria RARE, Urine Mucus 0 SEEN Radiography Diagnostic Testing: Radiology Impression Chest X-Ray 09/07/22 17:35 IMPRESSION: No radiographic evidence of acute cardiopulmonary disease. Electronically Signed: Janette Levine MD at 18:12 EDT Reading Location ID and State: [id number] / Tel , Service support , Hip/Pelvis X-Ray 09/07/22 17:35 IMPRESSION: Acute fracture of the left femoral neck. Electronically Signed: Janette Levine MD at 18:06 EDT Reading Location ID and State: Keanu Paiz MD Tel , Service support , Physical Exam Const alert and no apparent distress HEENT head/scalp atraumatic and moist oral mucous membranes Resp normal respiratory effort, no retractions, no use of accessory muscles and clear to auscultation bilaterally Cardio regular rate, regular rhythm, S1 normal heart sound and S2 normal heart sound GI normal to inspection, nondistended, normoactive bowel sounds, soft to palpation and non-tender Assessment & Plan Assessment/Plan (1) Hip fracture: QUALIFIERS: Encounter type: initial encounter Fracture type: closed Laterality: left Qualified Code(s): S72.002A - Fracture of unspecified part of neck of left femur, initial encounter for closed fracture PLAN: Left femoral neck fracture. Orthopedic surgery consulted from ED. continue treatment as noted #2, fuller placement, monitor I/Os, frequent p ositioning, fall precautions, as needed pain, anti-emetic regimen. PT/OT following operative intervention. CM consulted for discharge planning. Check 25 OH D level. Per surgical risk calculator given patient's underlying history, ED evaluation including imaging and EKG would consider patient appropriate risk to proceed to operative intervention. EKG with SR without acute findings. Labs baseline stable. No history of chest pain or dyspnea, able to perform normal activities limited only by arthritic disease and fibromyalgia. Discussed case and agreement with progression with orthopedic surgery. PLAN: Plan Acute Urinary Tract Infection: ruled out. DC CTX. Elevated BP without hypertensive diagnosis: resolved. Significantly elevated BP upon presentation, likely pain related, will continue closely monitor and add regimen if appropriate, as needed IV hydralazine in interim. Chronic conditions: * Hypothyroidism: We will continue patient on levothyroxine regimen. * Hyperlipidemia: We will continue patient on statin therapy. * History remote PAF: Patient not on any rate or rhythm agent, not anticoagulated possibly secondary to high fall risk, noted history remotely, most recent echocardiogram noted 2012 but again she has had no recurrence, echo with normal LV size, LV systolic function normal, EF 55%, mild SANKET, mild TVI. * Obesity: Weight loss and lifestyle changes encouraged. * GERD: We will continue patient home PPI. * Chronic normocytic anemia: Admission hemoglobin 11.7, MCV 94.7, baseline hemoglobin appears primarily 10-11 although most recent prior noted 03/17/2016 13.2, has vacillated over the years, will continue to trend. * Anxiety and depression: We will continue patient home fluoxetine home regimen. DVT prophylaxis: SCDs, defer chemoprophylaxis for planned operative intervention. CODE status: Full Charges/Coding Visit Charges Inpatient E&M: 95130 Subs Hosp L2
[2022-09-08 07:20] LABS: Absolute Lymphocyte Count 1.18 X10^3/uL (0.83-4.51); Absolute Neutrophil Count 8.8 X10^3/uL (2.0-7.7); Basophil# 0.03 X10^3/uL; Basophil% 0.3 % (0-1); Hematocrit 33.4 % (37-47); Hemoglobin 10.7 g/dL (12.0-15.0); Lymphocyte # 1.18 X10^3/ul (0.83-4.51); Lymphocyte % 10.9 % (19-41); Mean Corpuscular Hgb 30.4 pg (27.0-32.0); Mean Corpuscular Volume 94.9 fL (81-99); Mean Platelet Vol. 10.3 fl (6.2-12.0); Monocyte# 0.77 X10^3/uL; Monocyte% 7.1 % (0-10); NRBC Flagged by Analyzer 0 % (0-5); Neutrophil # 8.84 X10^3/uL (2.7-7.7); Neutrophil % 81.2 % (47-70); Platelet Count 328 K/mm3 (150-450); RBC Distribution Width CV 13.2 % (11.6-14.6); Red Blood Count 3.52 M/mm3 (4.2-5.4); White Blood Count 10.9 K/mm3 (4.4-11.0)
[2022-09-08 07:42] LABS: ALB/GLOB Ratio 0.8 RATIO (0.9-2.4); AST(SGOT) 25 U/L (15-37); Alanine Aminotransfer ALT/SGPT 22 U/L (13-56); Albumin, Serum 2.9 g/dL (3.2-5.0); Alkaline Phosphatase 97 U/L (45-117); Anion Gap 7 (5-15); BUN 19 mg/dL (7-18); BUN/Creat Ratio 23.9 RATIO (10-20); Calcium,Total 8.2 mg/dL (8.5-10.1); Chloride 111 mmol/L (98-107); Creatinine, Serum 0.79 mg/dL (0.55-1.02); EST Glomerular Filtration Rate 75 mL/min (>60); Est Glom Filt Rate - Afr Amer 91 mL/min (>60); Estimated Creatinine Clearance 35.45 ml/min; Globulin 3.8 g/dL (2.2-4.2); Glucose 125 mg/dL (74-106); Potassium 4.2 mmol/L (3.5-5.1); Protein, Total 6.7 g/dL (6.4-8.2); Sodium Level 140 mmol/L (136-145); Thyroid Stim Hormone (TSH) 0.59 uIU/mL (0.358-3.74)
[2022-09-08 07:58] LABS: International Normalized Ratio 1.1; Prothrombin Time (Protime)PT. 14.3 SECONDS (11.7-14.9)
[2022-09-08 07:59] LABS: Partial Thromboplast Time 27.3 Seconds (24.1-36.2)
[2022-09-08] MEDS: Morphine 2 MG/ML Syringe IV ×2 (08:05→14:29)
[2022-09-08] MEDS: 0.9% Saline Lock 10 ML Syringe IV (08:05)
[2022-09-08] MEDS: 0.9% Normal Saline 1,000 ML 75 ML IV (10:04)
--- NOTE | 2022-09-08 12:02 | CASEMGMT ---
Addendum entered by Michelle Roth 09/13/22 10:50: Correction: Insurance: [employer] LNOK: Ankur Gibson, Original Note: RN RAY Assessment: Face to Face with pt for initial transition planning/care coordination assessment. RN RAY introduced self and role at [facility], pt voices understanding and consents to assessment. Pt is A/O x4 and answers all questions appropriately at this time. Pt sitting up in bed with dtr and analytical lead at bedside. Pt agreeable to assessment with visitors present. Care providers, pharmacy, and demographics verified/updated. Admitting Dx: Fall, L hip fracture PCP:[facility] Specialists:Pt denies Preferred Pharmacy: [facility] Insurance: Ankur Gibson, Prescription Benefit: yes LNOK: Vjzanjoseluis Rob Living Arrangements: Pt lives with in a single story home with 4 steps to enter with a rail. Pt reports she is I in ADL's and denies concerns at home. Transportation: Pt has not driven for a year. Pt or dtr transports pt to medical appts. DME/HHC/SNF: Pt has a cane and walker at home. Pt also has a shower chair but does not use. Pt has had HHC in the past but is unsure of the name of the agency. Pt has been to [facility]. Pt to go to OR today. Pt aware RN RAY or MATILDE will follow after surgery and therapy evals. Pt agreeable to this. Pt states no further concerns/needs. CM to follow. Advised pt to ask CM if any further question/concerns/needs arise, voices understanding. Pt Goal: TBD Plan: TBD pending OR and therapy evals
--- NOTE | 2022-09-08 14:51 | CHAPLAIN ---
Type of Pastoral Visit _x__ Initial Visit ___ Follow-up Visit ___ On-call Visit ___ General Patient Visit ___ Spiritual Assessment ___ Family Conference ___ Bereavement ___ Rapid Response ___ Code Blue ___ Other (describe below) Pastoral Care Referral From _x__ Patient ___ Family ___ Nurse ___ Physician ___ Maxillofacial Pathology ___ Facilities Technician ___ Other (describe below) Sacrament/Intervention _x__ Active listening ___ Anointing ___ Methodist ___ Bereavement ___ Communion ___ [place] exploration ___ _x__ Life review _x__ Prayer ___ Reconciliation ___ Sacrament of Sick _x__ Supportive presence ___ Wedding ___ Other (describe below) Pastoral Comments met with patient two hours prior to her surgery time; pt is alone in room and admits to some anxiety and pain; offer of presence, time to talk for diversion, prayer are welcomed;
[2022-09-08] MEDS: Morphine 4 MG/ML Syringe IV (17:52)
--- NOTE | 2022-09-08 18:02 | NURSING ---
pt to surgery via bed
--- NOTE | 2022-09-08 18:38 | RAD_ITS ---
STUDY: X-RAY - PELVIS AND LEFT HIP REASON FOR EXAM: Female, 76 years old. GAMMA NAIL TECHNIQUE: 1 views of the pelvis and hip. COMPARISON: 09/07/2022 FINDINGS: 90 seconds of fluoroscopy for left hip was utilized in the operating room during open reduction internal fixation of fracture of the femoral neck and 13 images are significant for interpretation. . RAD/Hip 1 view with Pelvis IMPRESSION: Fluoroscopy during open reduction internal fixation of femoral neck fracture. Electronically Signed: Ankur Gauthier MD at 20:33 EDT ,
[2022-09-08] MEDS: Cefazolin 2 GM in 0.9% Normal Saline 100 ML IV (18:55)
--- NOTE | 2022-09-08 20:27 | OP.PCM_ITS ---
Report of Operation Date of Procedure: 09/08/22 Description of Surgical Findings:: Preoperative diagnosis: Left intertrochanteric proximal femur fracture Postoperative diagnosis: Left intertrochanteric proximal femur fracture Procedure: Treatment of intertrochanteric hip fracture with intramedullary nail left femur Surgeon: Saúl Manriquez DO Anesthesia: General endotracheal Anesthesiologist: Dr. Benson Complications: None Drains: None Estimated blood loss: 250 cc Urinary output: None recorded IV fluids: 400 cc crystalloid Specimens: None Surgical implants: [place] Gamma3 Cephalomedullary Nail 125 degree 10 x 360 mm left, 10.5 mm x 85 mm lag screw, Interlocking screw size 5 mm x 32.5 mm and 5 x 375. mm Surgical indications: This is a 76 F who presents presented to [facility] emergency department after a mechanical fall in her garage after her foot sunk into a grate.she landed on her left side. X-rays in the ED revealed a comminuted left intertrochanteric femur fracture. She was admitted under the service of the hospitalist. Orthopedics was consulted for surgical recommendations.I recommended cephalomedullary nail fixation of her left intertrochanteric proximal femur fracture. The risks, benefits, alternatives to procedure reviewed with the patient. The risks of the surgery included bleeding, infection, loss of life or limb, malunion, nonunion, damage to vital structures, neurovascular injury, failure of orthopedic hardware, need for additional surgery, persistent pain or disability, risk of anesthesia. The patient expressed understanding of these risks and agreed to proceed with surgery. Blood consent was also obtained. Description of procedure: Patient was seen in preoperative holding area. She was identified by name, medical record number, date of . The operative extremity was marked with a surgical marker. We confirmed informed consent with the patient and questions were answered to her satisfaction. Patient was brought to the operative suite, and general anesthesia was induced on her hospital bed. Endotracheal tube was secured. After adequate anesthesia, patient was transferred to a fracture table with all bony prominences being well-padded. A perineal post was placed to secure the patient on the table. We then applied a ski boot which was well-padded to the operative extremity. The well leg was dropped into extension and secured to the axial post of the fracture table with a pillow and Coban. The left arm was brought across patient's chest with a blanket on her chest. We then performed a closed reduction maneuver with external rotation, traction, internal rotation and adduction. Fluoroscopic images were obtained. Fracture appeared to be acceptably reduced following closed reduction. We then prepped and draped the right lower extremity in normal, sterile orthopedic fashion. A timeout was performed with all parties in attendance in agreement with the side, site, and operation be performed. 2 g Ancef was administered prior to incision. No concerns were voiced and we elected to proceed. I first used fluoroscopy to karlene the level of the fracture and planned incision for insertion of the cephalomedullary nail device. In line with the long axis of the femur, 4 fingerbreadths proximal to the tip of the greater trochanter, a full-thickness skin incision was planned.. Skin was sharply incised with 10 blade scalpel, carried into the subcutaneous tissues. The IT band was encountered and split and planned trajectory of the nail placement. The greater trochanter was then able to be palpated digitally. I then placed a threaded guidewire just medial to the tip of the greater trochanter and in the anterior third of it on the lateral. Opening reamer was then placed over top of the guidewire after placement was confirmed on C arm. A ball-tipped guidewire then was passed into the intramedullary canal after reamer was removed. We used C arm to confirm our placement within the bone. We then sequentially reamed to a final diameter of 11.5 mm using flexible reamers. Reduction was again confirmed. We selected her nail to be 10 x 360 mm. Reamers were removed. Nail was assembled on the back table. We placed it over the ball-tipped guidewire and impacted to an appropriate depth. Rotation was confirmed on the lateral. Drill sleeve was placed through the targeting guide. We drilled the pin for the lag screw at an appropriate position and depth, tip to apex distance less than 25 mm on AP and lateral combined. Depth gauge was used to measure the length of the screw, 85 mm. Prior to drilling, I applied a lateral translation of the femoral neck with a bone hook placed to the lag screw incision. We then used the cannulated drill to drill to an appropriate depth. Drill was removed, drill pin left in place. Lag screw was placed over top of the drill pin and tightened to an appropriate depth. Setscrew was then placed and tightened, and then turned back a quarter turn to allow the lag screw to slide. I then utilized perfect igiugig technique distally to perform to interlocking screws in the static and dynamic slots of the nail. Lateral skin was sharply incised as well as the IT band. I drilled bicortically utilizing perfect igiugig technique. Appropriately sized screws were placed with excellent cortical purchase. Final fluoroscopic images were obtained. We irrigated the wounds copiously with normal saline solution. Hemostasis was excellent at this point. We then closed the deeper layers, IT band with 0 Vicryl. Intradermal buried stitches of 2-0 Vicryl were utilized and skin finally reapproximated with skin madeline. Sterile compression dressing of Xeroform, 4 x 4's, and Tegaderm was applied. Patient tolerated procedure well without complication. She was transferred back to her hospital bed and subsequently to PACU in stable condition. Intraoperative medications: 2 g Ancef IV Post Operative Plan: Weightbearing: Weightbearing as tolerated left lower extremity with a walker Antibiotics: Ancef 2 g x 3 doses postoperatively, 1 dose given preoperatively DVT Prophylaxis: Lovenox to start tomorrow morning Encinas: None Dressing: Dry sterile dressing changes daily and as needed for saturation X-Rays: 2 weeks postop in the office Follow-up: 2 weeks post-operatively with me in the office
[2022-09-08] MEDS: Senna/Docusate Sodium 1 Tablet 2 TABLET PO (23:57)
[2022-09-08] MEDS: Atorvastatin Calcium 20 MG Tablet PO (23:57)
[2022-09-08] MEDS: Nystatin Powder 15gm Bottle 1 APPLIC TOPICAL (23:59)
[2022-09-09] VITALS (9 sets, daily range): BP systolic 109–138; BP diastolic 56–72; PULSE 98–103; RESP 16–17; TEMP 36.4–36.7; O2SAT 89–97
[2022-09-09] MEDS: Cefazolin 2 GM in 0.9% Normal Saline 100 ML IV ×3 (03:19→18:21)
[2022-09-09] MEDS: Levothyroxine 75 MCG Tablet PO (05:22)
[2022-09-09] MEDS: Enoxaparin 40 MG/0.4 ML Syringe SC (05:22)
[2022-09-09 06:14] LABS: Absolute Lymphocyte Count 0.94 X10^3/uL (0.83-4.51); Absolute Neutrophil Count 7.2 X10^3/uL (2.0-7.7); Basophil# 0.03 X10^3/uL; Basophil% 0.3 % (0-1); Eosinophil# 0.01 X10^3/uL; Eosinophils% 0.1 % (0-5); Hematocrit 25.9 % (37-47); Hemoglobin 8.2 g/dL (12.0-15.0); Lymphocyte # 0.94 X10^3/ul (0.83-4.51); Lymphocyte % 10.2 % (19-41); Mean Corp Hgb Conc 31.7 g/dL (32-36); Mean Corpuscular Hgb 30.6 pg (27.0-32.0); Mean Corpuscular Volume 96.6 fL (81-99); Mean Platelet Vol. 9.7 fl (6.2-12.0); Monocyte# 1.01 X10^3/uL; Monocyte% 10.9 % (0-10); NRBC Flagged by Analyzer 0 % (0-5); Neutrophil # 7.22 X10^3/uL (2.7-7.7); Platelet Count 230 K/mm3 (150-450); RBC Distribution Width CV 13.3 % (11.6-14.6); RBC Distribution Width SD 47.9 fl (35.1-43.9); Red Blood Count 2.68 M/mm3 (4.2-5.4); White Blood Count 9.3 K/mm3 (4.4-11.0)
[2022-09-09] MEDS: oxyCODONE 5 MG Tablet PO ×3 (06:28→19:45)
[2022-09-09] MEDS: 0.9% Normal Saline 1,000 ML 75 ML IV ×2 (06:30→20:54)
[2022-09-09 06:40] LABS: Anion Gap 6 (5-15); BUN 14 mg/dL (7-18); BUN/Creat Ratio 21.7 RATIO (10-20); Calcium,Total 7.8 mg/dL (8.5-10.1); Chloride 111 mmol/L (98-107); Creatinine, Serum 0.64 mg/dL (0.55-1.02); EST Glomerular Filtration Rate 96 mL/min (>60); Est Glom Filt Rate - Afr Amer 116 mL/min (>60); Estimated Creatinine Clearance 49.24 ml/min; Glucose 122 mg/dL (74-106); Potassium 4.1 mmol/L (3.5-5.1); Sodium Level 140 mmol/L (136-145)
[2022-09-09 08:16] LABS: Vitamin D,25 Hydroxy 81.1 ng/mL
--- NOTE | 2022-09-09 08:43 | PN.HOSP_ITS ---
Reason for Visit Reason for Visit: Diagnoses Fracture of unspecified part of neck of left femur, initial encounter for closed fracture (09/07/22) Fracture of unspecified part of neck of unspecified femur, initial encounter for closed fracture (09/07/22) Subjective Subjective Feeling well. Objective Data Objective Data Vital Signs: Vital Signs Temp Pulse Resp BP Pulse Ox O2 Del Method O2 Flow Rate 36.5 C L 98 16 119/68 94 Room Air 2 09/09/22 05:18 09/09/22 05:18 09/09/22 05:18 09/09/22 05:18 09/09/22 07:20 09/09/22 07:20 09/09/22 05:18 Oxygen Flow Rate (L/min) 2 Oxygen Delivery Method Room Air Weight: 63.2 kg Body Mass Index (BMI) 27.3 Intake & Output: Intake and Output for Last 24 Hours 09/07/22 09/08/22 09/09/22 23:59 23:59 23:59 Intake Total 50 / 50 2032.5 / 2082.5 460 / 460 Output Total 1875 / 1975 300 / 300 Balance 50 / -400 157.5 / 107.5 160 / 160 Lab / Micro Data 09/09/22 06:00 09/09/22 06:00 Labs: Laboratory Results - last 24 hr 09/09/22 06:00: WBC 9.3, RBC 2.68 L, Hgb 8.2 L, Hct 25.9 L, MCV 96.6, MCH 30.6, MCHC 31.7 L, RDW Std Deviation 47.9 H, RDW Coeff of Serafin 13.3, Plt Count 230, MPV 9.7, Immature Gran % (Auto) 0.500, Neut % (Auto) 78.0 H, Lymph % (Auto) 10.2 L, [place] % (Auto) 10.9 H, Eos % (Auto) 0.1, Baso % (Auto) 0.3, Absolute Neuts (auto) 7.2, Absolute Lymphs (auto) 0.94, Nucleated RBC % 0, Sodium 140, Potassium 4.1, Chloride 111 H, Carbon Dioxide 23.0, Anion Gap 6, BUN 14, Creatinine 0.64, Estim Creat Clear Calc 49.24, Est GFR (MDRD) Af Amer 116, Est GFR (MDRD) Non-Af 96, B UN/Creatinine Ratio 21.7 H, Glucose 122 H, Calcium 7.8 L, Vitamin D 25-Hydroxy 81.1 Micro: Microbiology 09/07/22 18:25 Urine Catheter - Encinas Urine Culture - Final Escherichia coli Radiography Diagnostic Testing: Radiology Impression Hip/Pelvis X-Ray 09/08/22 18:38 IMPRESSION: Fluoroscopy during open reduction internal fixation of femoral neck fracture. Electronically Signed: Ankur Gauthier MD at 20:33 EDT , Physical Exam Const alert and no apparent distress Constitutional Narrative: working with therapy. HEENT head/scalp atraumatic and moist oral mucous membranes Cardio regular rate Extremity Extremity Narrative: left hip surgical site bandaged. some ecchymosis. Assessment & Plan Assessment/Plan (1) Hip fracture: QUALIFIERS: Encounter type: initial encounter Fracture type: closed Laterality: left Qualified Code(s): S72.002A - Fracture of unspecified part of neck of left femur, initial encounter for closed fracture PLAN: Left femoral neck fracture. PT/OT following operative intervention. CM consulted for discharge planning. 25 OH D level 81.1 09/08: treatment of intertrochanteric hip fracture with intramedullary nail left femur (2) Acute blood loss anemia: PLAN: Hg dropped from 11.7 to 8.2 No need for transfusion at this time Monitor PLAN: Plan Acute Urinary Tract Infection: ruled out. DC CTX. UCx positive, but only 0-5 WBCs. No treatment indicated at this time. Elevated BP without hypertensive diagnosis: resolved. Significantly elevated BP upon presentation, likely pain related, will continue closely monitor and add regimen if appropriate, as needed IV hydralazine in interim. Chronic conditions: * Hypothyroidism: We will continue patient on levothyroxine regimen. * Hyperlipidemia: We will continue patient on statin therapy. * History remote PAF: Patient not on any rate or rhythm agent, not anticoagulated possibly secondary to high fall risk, noted history remotely, most recent echocardiogram noted 2012 but again she has had no recurrence, echo with normal LV size, LV systolic function normal, EF 55%, mild SANKET, mild TVI. * Obesity: Weight loss and lifestyle changes encouraged. * GERD: We will continue patient home PPI. * Chronic normocytic anemia: Admission hemoglobin 11.7, MCV 94.7, baseline hemoglobin appears primarily 10-11 although most recent prior noted 03/17/2016 13.2, has vacillated over the years, will continue to trend. * Anxiety and depression: We will continue patient home fluoxetine home regimen. DVT prophylaxis: SCDs, defer chemoprophylaxis for planned operative intervention. CODE status: Full Charges/Coding Visit Charges Inpatient E&M: 36342 Subs Hosp L2
[2022-09-09] MEDS: Pantoprazole Sodium 20 MG Tablet PO (08:52)
[2022-09-09] MEDS: Calcium Carbonate 500 MG Tablet PO ×3 (08:53→16:36)
[2022-09-09] MEDS: Fluoxetine HCl 40 MG CAPSULE PO (08:53)
[2022-09-09] MEDS: Senna/Docusate Sodium 1 Tablet 2 TABLET PO ×2 (08:53→20:58)
[2022-09-09] MEDS: Nystatin Powder 15gm Bottle 1 APPLIC TOPICAL ×2 (08:53→20:58)
--- NOTE | 2022-09-09 13:55 | CASEMGMT ---
Social Work Pt stating she is unsure if she has completed a HCPOA or a living will. SW provided written information on completing advanced directives. TANVIR Gonsalez
--- NOTE | 2022-09-09 14:13 | CASEMGMT ---
Addendum entered by Annie Mckeon 09/09/22 14:37: Social work TCU is able to accept pt and precert to be started at this time. SW met with pt and updated that TCU can accept and on insurance process. SW offered to call pt to update and pt declined stating she will notify him when he visits later today. Plan: TCU, pending TANVIR Romero Original Note: Social Work SW met with pt to discuss discharge plan. Pt lives at home with her spouse but does state she was having problems caring for herself at home prior to fall. Therapy is recommending SNF placement for rehab prior to return home. A list of SNF providers including quality and resource use data and consistent with the patient?s preferred geographic region, medical needs, and insurance network were provided from the [employer] Guide. Pt preferred provider is [facility]. Referral made to TCU. SW will await determination. Pt will need precert prior to discharge to SNF. PLan: TCU, pending acceptance and TANVIR Romero
--- NOTE | 2022-09-09 16:53 | PCM.PN.ORT ---
Subjective Subjective Late entry note: Patient was seen at 0900 this morning Patient seen and examined. She reports her pain to be well controlled. Denies fevers, chills, nausea vomiting, chest pain or shortness of breath. Patient had set up at bedside with nursing staff earlier this morning. Objective Data Objective Data Vital Signs: Vital Signs Temp Pulse Resp BP Pulse Ox O2 Del Method O2 Flow Rate 97.6 F L 103 H 16 109/71 96 Nasal Cannula 2 09/09/22 15:49 09/09/22 15:49 09/09/22 15:49 09/09/22 15:49 09/09/22 15:49 09/09/22 15:49 09/09/22 15:49 Oxygen Flow Rate (L/min) 2 Oxygen Delivery Method Nasal Cannula Weight: 139 lb 5.314 oz Body Mass Index (BMI) 27.3 Intake & Output: Intake and Output for Last 24 Hours 09/07/22 09/08/22 09/09/22 23:59 23:59 23:59 Intake Total 50 / 50 2032.5 / 2082.5 950 / 950 Output Total 1875 / 1975 300 / 300 Balance 50 / -400 157.5 / 107.5 650 / 650 Lab / Micro Data 09/09/22 06:00 09/09/22 06:00 Labs: Laboratory Results - last 24 hr 09/09/22 06:00: WBC 9.3, RBC 2.68 L, Hgb 8.2 L, Hct 25.9 L, MCV 96.6, MCH 30.6, MCHC 31.7 L, RDW Std Deviation 47.9 H, RDW Coeff of Serafin 13.3, Plt Count 230, MPV 9.7, Immature Gran % (Auto) 0.500, Neut % (Auto) 78.0 H, Lymph % (Auto) 10.2 L, [place] % (Auto) 10.9 H, Eos % (Auto) 0.1, Baso % (Auto) 0.3, Absolute Neuts (auto) 7.2, Absolute Lymphs (auto) 0.94, Nucleated RBC % 0, Sodium 140, Potassium 4.1, Chloride 111 H, Carbon Dioxide 23.0, Anion Gap 6, BUN 14, Creatinine 0.64, Estim Creat Clear Calc 49.24, Est GFR (MDRD) Af Amer 116, Est GFR (MDRD) Non-Af 96, BUN/Creatinine Ratio 21.7 H, Glucose 122 H, Calcium 7.8 L, Vitamin D 25-Hydroxy 81.1 Micro: Microbiology 09/07/22 18:25 Urine Catheter - Encinas Urine Culture - Final Escherichia coli Radiography Diagnostic Testing: Radiology Impression Hip/Pelvis X-Ray 09/08/22 18:38 IMPRESSION: Fluoroscopy during open reduction internal fixation of femoral neck fracture. Electronically Signed: Ankur Gauthier MD at 20:33 EDT , Physical Exam Narrative General - A&Ox3, NAD. VSS/AF Left lower extremity -incisional dressing shows scant serosanguineous drainage, otherwise clean dry and intact. SILT Sural, Saphenous, SPN, DPN, Tibial N. distributions. DP, PT 2+. BCR. DF, PF, EHL 5/5. No calf TTP. Assessment & Plan Assessment/Plan (1) Closed intertrochanteric fracture of left femur: QUALIFIERS: Encounter type: initial encounter Fracture alignment: displaced Qualified Code(s): S72.142A - Displaced intertrochanteric fracture of left femur, initial encounter for closed fracture PLAN: POD#1 s/p left femur CMN -Expected drop in hemoglobin consistent with acute blood loss anemia secondary to surgery - Pain control - Medicine following for medical management - PT/OT-weightbearing as tolerated left lower extremity - DVT PPX -Lovenox, SCDs, ANNABELLE hutchinson, early mobilization - Case management - D/C planning
[2022-09-09] MEDS: Morphine 2 MG/ML Syringe IV (20:53)
[2022-09-09] MEDS: Atorvastatin Calcium 20 MG Tablet PO (20:58)
[2022-09-10] VITALS (13 sets, daily range): BP systolic 98–139; BP diastolic 57–74; PULSE 102–116; RESP 16; TEMP 36.6–37.5; O2SAT 92–98
[2022-09-10] MEDS: Levothyroxine 75 MCG Tablet PO (05:31)
[2022-09-10] MEDS: Enoxaparin 40 MG/0.4 ML Syringe SC (05:31)
[2022-09-10 06:13] LABS: Hematocrit 21.5 % (37-47); Hemoglobin 6.8 g/dL (12.0-15.0); Mean Corp Hgb Conc 31.6 g/dL (32-36); Mean Corpuscular Hgb 30.6 pg (27.0-32.0); Mean Corpuscular Volume 96.8 fL (81-99); Mean Platelet Vol. 9.9 fl (6.2-12.0); Platelet Count 214 K/mm3 (150-450); RBC Distribution Width CV 13.2 % (11.6-14.6); Red Blood Count 2.22 M/mm3 (4.2-5.4); White Blood Count 9.8 K/mm3 (4.4-11.0)
[2022-09-10] MEDS: oxyCODONE 5 MG Tablet PO (06:44)
--- NOTE | 2022-09-10 07:54 | PN.ORTHO_ITS ---
Subjective Subjective Patient seen and examined. She reports some soreness in her left hip but otherwise denies any new complaints. Up with therapy yesterday. Denies fevers, chills, nausea vomiting, chest pain or shortness of breath, dizziness, lightheadedness. Does report some general fatigue. Objective Data Objective Data Vital Signs: Vital Signs Temp Pulse Resp BP Pulse Ox O2 Del Method O2 Flow Rate 98.8 F 102 H 16 119/62 92 Nasal Cannula 2 09/10/22 03:13 09/10/22 03:13 09/10/22 03:13 09/10/22 03:13 09/10/22 03:13 09/10/22 03:13 09/10/22 03:13 Oxygen Flow Rate (L/min) 2 Oxygen Delivery Method Nasal Cannula Weight: 139 lb 5.314 oz Body Mass Index (BMI) 27.3 Intake & Output: Intake and Output for Last 24 Hours 09/08/22 09/09/22 09/10/22 23:59 23:59 23:59 Intake Total 2032.5 / 2082.5 1890.00 / 2090.00 400 / 400 Output Total 1874 / 1975 550 / 750 375 / 375 Balance 157.5 / 107.5 1340.00 / 1340.00 25 / 25 Lab / Micro Data 09/10/22 05:45 09/09/22 06:00 Labs: Laboratory Results - last 24 hr 09/09/22 06:00: Vitamin D 25-Hydroxy 81.1 09/10/22 05:45: WBC 9.8, RBC 2.22 L, Hgb 6.8 L, Hct 21.5 L, MCV 96.8, MCH 30.6, MCHC 31.6 L, RDW Std Deviation 47.0 H, RDW Coeff of Serafin 13.2, Plt Count 214, MPV 9.9 Micro: Microbiology 09/07/22 18:25 Urine Catheter - Encinas Urine Culture - Final Escherichia coli Physical Exam Narrative General - A&Ox3, NAD. VSS/AF Left lower extremity -scant serosanguineous drainage noted on dressings, otherwise clean dry and intact. No ecchymosis is noted. Compartments are soft and compressible. SILT Sural, Saphenous, SPN, DPN, Tibial N. distributions. DP, PT 2+. BCR. DF, PF, EHL 5/5. No calf TTP. Assessment & Plan Assessment/Plan (1) Closed intertrochanteric fracture of left femur: QUALIFIERS: Encounter type: initial encounter Fracture alignment: displaced Qualified Code(s): S72.142A - Displaced intertrochanteric fracture of left femur, initial encounter for closed fracture PLAN: POD#2 s/p left femur CMN -Continue acute blood loss anemia noted. Hemoglobin under 7 this morning. 2 u nits packed red blood cells ordered. Recheck H&H tomorrow. No obvious hematoma on exam. Hold Lovenox tomorrow morning until recheck hemoglobin. - Pain control - Medicine following for medical management - PT/OT-weightbearing as tolerated left lower extremity - DVT PPX -Lovenox, [place], ANNABELLE hutchinson, early mobilization - Case management - D/C planning
--- NOTE | 2022-09-10 08:34 | PN.HOSP_ITS ---
Reason for Visit Reason for Visit: Diagnoses Acute posthemorrhagic anemia (09/07/22) Fracture of unspecified part of neck of left femur, initial encounter for closed fracture (09/07/22) Fracture of unspecified part of neck of unspecified femur, initial encounter for closed fracture (09/07/22) Displaced intertrochanteric fracture of left femur, initial encounter for closed fracture (09/07/22) Subjective Subjective Feels well. No events overnight. Objective Data Objective Data Vital Signs: Vital Signs Temp Pulse Resp BP Pulse Ox O2 Del Method O2 Flow Rate 37.1 C 102 H 16 119/62 92 Nasal Cannula 2 09/10/22 03:13 09/10/22 03:13 09/10/22 03:13 09/10/22 03:13 09/10/22 08:04 09/10/22 08:04 09/10/22 08:04 Oxygen Flow Rate (L/min) 2 Oxygen Delivery Method Nasal Cannula Weight: 63.2 kg Body Mass Index (BMI) 27.3 Intake & Output: Intake and Output for Last 24 Hours 09/08/22 09/09/22 09/10/22 23:59 23:59 23:59 Intake Total 2032.5 / 2082.5 1890.00 / 2090.00 400 / 400 Output Total 1874 / 1975 550 / 750 375 / 375 Balance 157.5 / 107.5 1340.00 / 1340.00 25 / 25 Lab / Micro Data 09/10/22 05:45 09/09/22 06:00 Labs: Laboratory Results - last 24 hr 09/08/22 05:35: Crossmatch See Detail 09/10/22 05:45: WBC 9.8, RBC 2.22 L, Hgb 6.8 L, Hct 21.5 L, MCV 96.8, MCH 30.6, MCHC 31.6 L, RDW Std Deviation 47.0 H, RDW Coeff of Serafin 13.2, Plt Count 214, MPV 9.9 Micro: Microbiology 09/07/22 18:25 Urine Catheter - Encinas Urine Culture - Final Escherichia coli Physical Exam Const alert and no apparent distress Extremity Extremity Narrative: left hip bandage intact. no obvious left hip hematoma. Assessment & Plan Assessment/Plan (1) Hip fracture: QUALIFIERS: Encounter type: initial encounter Fracture type: closed Laterality: left Qualified Code(s): S72.002A - Fracture of unspecified part of neck of left femur, initial encounter for closed fracture PLAN: Left femoral neck fracture. PT/OT following operative intervention. CM consulted for discharge planning. 25 OH D level 81.1 09/08: treatment of intertrochanteric hip fracture with intramedullary nail left femur (2) Acute blood loss anemia: PLAN: Hg dropped from 11.7 to 6.8 Transfuse and monitor PLAN: Plan Acute Urinary Tract Infection: ruled out. DC CTX. UCx positive, but only 0-5 WBCs. No treatment indicated at this time. Elevated BP without hypertensive diagnosis: resolved. Significantly elevated BP upon presentation, likely pain related, will continue closely monitor and add regimen if appropriate, as needed IV hydralazine in interim. Chronic conditions: * Hypothyroidism: We will continue patient on levothyroxine regimen. * Hyperlipidemia: We will continue patient on statin therapy. * History remote PAF: Patient not on any rate or rhythm agent, not anticoagulated possibly secondary to high fall risk, noted history remotely, most recent echocardiogram noted 2012 but again she has had no recurrence, echo with normal LV size, LV systolic function normal, EF 55%, mild SANKET, mild TVI. * Obesity: Weight loss and lifestyle changes encouraged. * GERD: We will continue patient home PPI. * Chronic normocytic anemia: Admission hemoglobin 11.7, MCV 94.7, baseline hemoglobin appears primarily 10-11 although most recent prior noted 03/17/2016 13.2, has vacillated over the years, will continue to trend. * Anxiety and depression: We will continue patient home fluoxetine home regimen. DVT prophylaxis: SCDs CODE status: Full Discharged to TCU. Continue to monitor H/H.
[2022-09-10] MEDS: Nystatin Powder 15gm Bottle 1 APPLIC TOPICAL (08:45)
[2022-09-10] MEDS: Calcium Carbonate 500 MG Tablet PO ×2 (08:45→11:11)
[2022-09-10] MEDS: Fluoxetine HCl 40 MG CAPSULE PO (08:46)
[2022-09-10] MEDS: Pantoprazole Sodium 20 MG Tablet PO (08:46)
[2022-09-10] MEDS: Senna/Docusate Sodium 1 Tablet 2 TABLET PO (08:46)
--- NOTE | 2022-09-10 09:37 | CASEMGMT ---
Addendum entered by Annie Mckeon 09/10/22 11:13: Per Physician, pt is ready for discharge today. Discharge orders faxed to TCU and Adrianne in T[facility] notified that pt will be admitted today. Disposition: TCU, skilled level of care [facility] Original Note: Social Work Precert has been obtained for admission to TCU. Physician updated. SW met with pt and updated that authorization has been obtained and pt can d/c when medically ready. With pt permission, phone call to pt spouse and VM left regarding dischage plan. Plan: TCU, when medically ready [facility]
--- NOTE | 2022-09-10 10:08 | TREXTCAR_ITS ---
Diet Diet Order/Speech Therapy: 09/09/22 09:00 Diet: Regular - General Is pt able to select menu?: Yes Wound(s) LEFT HIP/LEG: Wound Type: Surgical Incision Therapies Weight Bearing: Weight bearing as tolerated Physical Therapy: Eval and Treat Occupational Therapy: Eval and Treat Problem/Diagnosis (1) Hip fracture: Status: Acute Code(s): S72.009A - Fracture of unspecified part of neck of unspecified femur, initial encounter for closed fracture Plan: Left femoral neck fracture. PT/OT following operative intervention. CM consulted for discharge planning. 25 OH D level 81.1 09/08: treatment of intertrochanteric hip fracture with intramedullary nail left femur (2) Acute blood loss anemia: Status: Acute Code(s): D62 - Acute posthemorrhagic anemia Plan: Hg dropped from 11.7 to 6.8 Transfuse and monitor Plan Acute Urinary Tract Infection: ruled out. DC CTX. UCx positive, but only 0-5 WBCs. No treatment indicated at this time. Elevated BP without hypertensive diagnosis: resolved. Significantly elevated BP upon presentation, likely pain related, will continue closely monitor and add regimen if appropriate, as needed IV hydralazine in interim. Chronic conditions: * Hypothyroidism: We will continue patient on levothyroxine regimen. * Hyperlipidemia: We will continue patient on statin therapy. * History remote PAF: Patient not on any rate or rhythm agent, not a nticoagulated possibly secondary to high fall risk, noted history remotely, most recent echocardiogram noted 2012 but again she has had no recurrence, echo with normal LV size, LV systolic function normal, EF 55%, mild SANKET, mild TVI. * Obesity: Weight loss and lifestyle changes encouraged. * GERD: We will continue patient home PPI. * Chronic normocytic anemia: Admission hemoglobin 11.7, MCV 94.7, baseline hemoglobin appears primarily 10-11 although most recent prior noted 03/17/2016 13.2, has vacillated over the years, will continue to trend. * Anxiety and depression: We will continue patient home fluoxetine home regimen. DVT prophylaxis: SCDs CODE status: Full Discharged to TCU. Continue to monitor H/H. Allergies/Procedures Done in Hospital Allergies codeine Allergy (Verified 09/07/22 17:01) Unknown codeine phosphate [From Tylenol-Codeine #3] Adverse Reaction (Verified 09/07/22 17:01) Unknown nabumetone [From Relafen] Adverse Reaction (Verified 09/07/22 17:01) Unknown naproxen Adverse Reaction (Verified 09/07/22 17:01) Unknown Procedures: - (left hip IM nail. ) Type of Care/Length of Stay Estimated LOS: Convalescent Care Less Than 30 days Type of Care Needed: Skilled Rehab Potential: Good Prognosis: Good Additional Orders/Day of Discharge Day of Discharge: 09/10/22 Discharge Plan Admission Admit Date/Time: 09/07/22 19:15 Primary Reason for Your Visit: left hip fracture Attending Provider: Luis Ashley Primary Care Provider: Jose Carlos Pompa Consulting Providers: Yessenia Andres; Saúl Manriquez Discharge Orders/Prescriptions Prescriptions: New calcium carbonate 200 mg calcium (500 mg) Tablet,Chewable 500 mg PO TIDCM Qty: 30 0RF enoxaparin 40 mg/0.4 mL Syringe 40 mg subcut 0600 Qty: 4 0RF Rx Instructions: start 09/12/22 melatonin 3 mg Tablet 3 mg PO QHS PRN PRN (Reason: Insomnia) Qty: 0 0RF nystatin [Nyamyc] 100,000 unit/gram Powder 1 applic topical BID Qty: 0 0RF Protocol: *Topical Application Instructions APPLICATION INSTRUCTIONS: under breasts oxycodone 5 mg Tablet 5 mg PO Q6H PRN (Reason: pain) 3 Days Qty: 12 0RF sennosides-docusate sodium [Stool Softener-Stimulant Laxat] 8.6-50 mg Tablet 2 tab PO BID Qty: 0 0RF Continued fluoxetine 40 mg capsule 40 mg PO DAILY atorvastatin 20 mg tablet 20 mg PO QHS alendronate 70 mg tablet 70 mg PO UD Rx Instructions: weekly. omeprazole 20 mg capsule,delayed release(DR/EC) 20 mg PO DAILY levothyroxine 75 mcg tablet 75 mcg PO DAILY Referrals / Follow Up: Jose Carlos Pompa MD [Primary Care Provider] - Within 2 Weeks Saúl Manriquez DO [Med Staff - Active Staff] - Within 2 Weeks Disposition Disposition (needs filled in before D/C Order can be placed): Care Home Facility (1) Hip fracture Qualifiers: Encounter type: initial encounter Fracture type: closed Laterality: left Qualified Code(s): S72.002A - Fracture of unspecified part of neck of left femur, initial encounter for closed fracture
--- NOTE | 2022-09-10 10:15 | DS.PCM_ITS ---
Providers Date of Admission: 09/07/22 Primary Care Physician: Dr. Jose Carlos Pompa MD Consultations 09/07/22 21:00 Consult: Orthopedics Routine Consulting Provider: Saúl Manriquez Reason for Consult: Hip fracture, fall EMERGENT Consult: No MD Notified: Yes Date Notified: 09/07/22 Time Notified: 19:17 Method of Notification: ED Physician Initiated Reason For Visit: FALL, L HIP FRACTURE Diagnosis Discharge Diagnosis (1) Hip fracture: Status: Acute Code(s): S72.009A - Fracture of unspecified part of neck of unspecified femur, initial encounter for closed fracture Qualifiers: Encounter type: initial encounter Fracture type: closed Laterality: left Qualified Code(s): S72.002A - Fracture of unspecified part of neck of left femur, initial encounter for closed fracture Plan: Left femoral neck fracture. PT/OT following operative intervention. CM consulted for discharge planning. 25 OH D level 81.1 09/08: treatment of intertrochanteric hip fracture with intramedullary nail left femur (2) Acute blood loss anemia: Status: Acute Code(s): D62 - Acute posthemorrhagic anemia Plan: Hg dropped from 11.7 to 6.8 Transfuse and monitor Plan Acute Urinary Tract Infection: ruled out. DC CTX. UCx positive, but only 0-5 WBCs. No treatment indicated at this time. Elevated BP without hypertensive diagnosis: resolved. Significantly elevated BP upon presentation, likely pain related, will continue closely monitor and add regimen if appropriate, as needed IV hydralazine in interim. Chronic conditions: * Hypothyroidism: We will continue patient on levothyroxine regimen. * Hyperlipidemia: We will continue patient on statin therapy. * History remote PAF: Patient not on any rate or rhythm agent, not anticoagulated possibly secondary to high fall risk, noted history remotely, most recent echocardiogram noted 2012 but again she has had no recurrence, echo with normal LV size, LV systolic function normal, EF 55%, mild SANKET, mild TVI. * Obesity: Weight loss and lifestyle changes encouraged. * GERD: We will continue patient home PPI. * Chronic normocytic anemia: Admission hemoglobin 11.7, MCV 94.7, baseline hemoglobin appears primarily 10-11 although most recent prior noted 03/17/2016 13.2, has vacillated over the years, will continue to trend. * Anxiety and depression: We will continue patient home fluoxetine home regimen. DVT prophylaxis: SCDs CODE status: Full Discharged to TCU. Continue to monitor H/H. Medications at Discharge Home Medications alendronate 70 mg tablet 70 mg PO UD osteoporosis 09/07/22 atorvastatin 20 mg tablet 20 mg PO QHS HLD 09/07/22 fluoxetine 40 mg capsule 40 mg PO DAILY depression 09/07/22 levothyroxine 75 mcg tablet 75 mcg PO DAILY thyroid 09/07/22 omeprazole 20 mg capsule,delayed release 20 mg PO DAILY GERD 09/07/22 calcium carbonate 200 mg calcium (500 mg) chewable tablet 500 mg (2.5 x 200 mg calcium (500 mg)) PO TIDCM #30 tabs 09/10/22 enoxaparin 40 mg/0.4 mL subcutaneous syringe 40 mg (0.4 mL) subcut 0600 #4 mL 09/10/22 melatonin 3 mg tablet 3 mg PO QHS PRN PRN Insomnia #0 tabs 09/10/22 nystatin 100,000 unit/gram topical powder (Nyamyc) 1 applic topical BID #0 grams 09/10/22 oxycodone 5 mg tablet 5 mg PO Q6H PRN pain 3 days #12 tabs 09/10/22 sennosides 8.6 mg-docusate sodium 50 mg tablet (Stool Softener-Stimulant Laxative) 2 tab PO BID #0 tabs 09/10/22 Hospital Course Operations - (left hip IM nail. ) Summary of Care Provided Minutes Spent on Discharge: 32 Weight / BMI Weight Weight: 63.2 kg Body Mass Index (BMI) 27.3 ABG / Lab / Microbiology Data 09/10/22 05:45 09/09/22 06:00 Laboratory: Laboratory Results - last 24 hr 09/08/22 05:35: Crossmatch See Detail 09/10/22 05:45: WBC 9.8, RBC 2.22 L, Hgb 6.8 L, Hct 21.5 L, MCV 96.8, MCH 30.6, MCHC 31.6 L, RDW Std Deviation 47.0 H, RDW Coeff of Serafin 13.2, Plt Count 214, MPV 9.9 Microbiology: Microbiology 09/07/22 18:25 Urine Catheter - Encinas Urine Culture - Final Escherichia coli Meaningful Use Info Meaningful Use Diagnoses (Choose all that apply): None applicable Discharge Plan Admission Admit Date/Time: 09/07/22 19:15 Primary Reason for Your Visit: left hip fracture Attending Provider: Luis Ashley Primary Care Provider: Jose Carlos Pompa Consulting Providers: Yessenia Andres; Saúl Manriquez Instructions Additional Instructions / Restrictions: SCDs while in bed. Continue enoxaparin for 30 days once it started on 09/12. Discharge Orders/Prescriptions Prescriptions: New calcium carbonate 200 mg calcium (500 mg) Tablet,Chewable 500 mg PO TIDCM Qty: 30 0RF enoxaparin 40 mg/0.4 mL Syringe 40 mg subcut 0600 Qty: 4 0RF Rx Instructions: start 09/12/22 melatonin 3 mg Tablet 3 mg PO QHS PRN PRN (Reason: Insomnia) Qty: 0 0RF nystatin [Nyamyc] 100,000 unit/gram Powder 1 applic topical BID Qty: 0 0RF Protocol: *Topical Application Instructions APPLICATION INSTRUCTIONS: under breasts oxycodone 5 mg Tablet 5 mg PO Q6H PRN (Reason: pain) 3 Days Qty: 12 0RF sennosides-docusate sodium [Stool Softener-Stimulant Laxat] 8.6-50 mg Tablet 2 tab PO BID Qty: 0 0RF Continued fluoxetine 40 mg capsule 40 mg PO DAILY atorvastatin 20 mg tablet 20 mg PO QHS alendronate 70 mg tablet 70 mg PO UD Rx Instructions: weekly. omeprazole 20 mg capsule,delayed release(DR/EC) 20 mg PO DAILY levothyroxine 75 mcg tablet 75 mcg PO DAILY Referrals / Follow Up: Jose Carlos Pompa MD [Primary Care Provider] - Within 2 Weeks Saúl Manriquez DO [Med Staff - Active Staff] - Within 2 Weeks Disposition Disposition (needs filled in before D/C Order can be placed): [facility] Charges/Coding Visit Charges Inpatient E&M: 18819 Disch Hosp >30min
== END 2022-09-10 15:23 | disposition skilled nursing facility (03) | DRG 481 ==
LOC: ED 19:36 → MS3 20:21
PROVIDERS: Anesthesiology; Student in an Organized Health Care Education/Training Program; Admitting Provider Family Medicine; Emergency Provider Student in an Organized Health Care Education/Training Program; PCP Family Medicine
PROC: 0QS736Z Reposition Left Upper Femur with Intramedullary Internal Fixation Device, Percutaneous Approach (ICD-10-PCS; CPT 27245; principal; 2022-09-08 08:00)
DX: S72.142A Displaced intertrochanteric fracture of left femur, initial encounter for closed fracture (principal); D62 Acute posthemorrhagic anemia; I48.0 Paroxysmal atrial fibrillation; E03.9 Hypothyroidism, unspecified; E78.5 Hyperlipidemia, unspecified; K21.9 Gastro-esophageal reflux disease without esophagitis; F32.A Depression, unspecified; W19.XXXA Unspecified fall, initial encounter; Z79.83 Long term (current) use of bisphosphonates; R03.0 Elevated blood-pressure reading, without diagnosis of hypertension; E66.9 Obesity, unspecified
CPT/HCPCS: 36415; 51702; 71045; 73501; 73502; 76000; 80048; 80053; 81001; 82306; 84443; 85025; 85027; 85610; 85730; 86850; 86900; 86901; 86920; 87077; 87086; 87088; 87186; 93005; 97162; 97166; 99285; C1713; J7030; J7050; P9016; A4216

== ENCOUNTER 2022-09-10 15:30 | Inpatient (IN) | payer MEDICARE, SELFPAY ==
[2022-09-10 15:43] VITALS: BMI 28.7
[2022-09-10 15:47] VITALS: BP 162/82; PULSE 101; RESP 16; TEMP 36.8; O2SAT 97
[2022-09-10 15:59] VITALS: BMI 28.5
[2022-09-10 16:22] VITALS: BMI 28.5
--- NOTE | 2022-09-10 17:15 | HP.PCM_ITS ---
[facility] - General General Date of Admission: 09/10/22 Date of Service: 09/10/22 Chief Complaint: Physical debility due to recent Hip fracture with ORIF. HPI Narrative MICAELA COCHRAN, is a 76 YO F with a past medical history of chronic normocytic anemia, hyperlipidemia, GERD, anxiety/depression, hypothyroidism, remote PAF (not currently on chronic anticoagulation), fibromyalgia and osteoporosis who presented to the emergency department at [facility] on 09/07/2022 after a mechanical fall at home. She tripped and fell on her left hip and then was unable to ambulate and had severe pain in the left hip. X-ray in the emergency department showed a fracture of the left femoral neck. Significant lab from the emergency department showed an elevated BUN at 21 with a creatinine of 0.81. White blood cell count was normal and the hemoglobin was 11.7. UA was positive for nitrite and there were 0-5 WBCs per high-power field with rare bacteria. A Encinas catheter was inserted in the emergency department and the UA was drawn from the Encinas catheter. It later grew greater than 100,000 colonies of a pansensitive E. coli. She was admitted to the hospitalist service and a consult was placed for Dr. Manriquez. She was taken to the OR on 09/08/2022 and had an intramedullary nail inserted in the left femur. Post-operatively the HGB dropped to 6.8 from 11.7 at admission. I suspect this was due to a combination of acute blood loss from surgery and hydration. She was very dry at admission and the true HGB was likely not 11.7 but lower. BUN on 09/09/2022 was 14, down from 21 at admission and the creatinine had dropped from 0.81-0.64 which is within her baseline. She was transfused and then transferred to the Transitional Care Unit for strengthening prior to returning home. She is on Oxygen and I am not sure why......she has not had a pulse ox < 90 since admission to the hospital. She has been persistently tachycardic for the past 2 days. She tells me that she is not on oxygen at home and she does not have a Encinas at home. She uses a walker or cane to ambulate at home. She has falls. In the past she has had a right hip fracture secondary to a fall and has also had a vertebral fracture and had a kyphoplasty done by Dr. Jennings. At one point in time she has been on OxyContin. 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 [facility] Medical History (Updated 09/10/22 @ 18:[address] Celeste Lloyd, DO) Anxiety and depression Chronic anemia Closed right hip fracture Fibromyalgia GERD (gastroesophageal reflux disease) HLD (hyperlipidemia) Hypertension Hypothyroid Migraines Non-smoker Obesity Osteoporosis PAF (paroxysmal atrial fibrillation) Paroxysmal atrial fibrillation Sleep apnea Syncope T12 compression fracture Home Medications alendronate 70 mg tablet 70 mg PO UD osteoporosis 09/07/22 [History Last Taken Unknown] atorvastatin 20 mg tablet 20 mg PO QHS HLD 09/07/22 [History Last Taken 09/09/22] fluoxetine 40 mg capsule 40 mg PO DAILY depression 09/07/22 [History Last Taken 09/10/22] levothyroxine 75 mcg tablet 75 mcg PO DAILY thyroid 09/07/22 [History Last Taken 09/10/22] omeprazole 20 mg capsule,delayed release 20 mg PO DAILY GERD 09/07/22 [History Last Taken 09/10/22] calcium carbonate 200 mg calcium (500 mg) chewable tablet 500 mg (2.5 x 200 mg calcium (500 mg)) PO TIDCM supplement #30 tabs 09/10/22 [Rx Last Taken 09/10/22] enoxaparin 40 mg/0.4 mL subcutaneous syringe 40 mg (0.4 mL) subcut 0600 blood thinner #4 mL 09/10/22 [Rx Last Taken 09/10/22] melatonin 3 mg tablet 3 mg PO QHS PRN PRN Insomnia #0 tabs 09/10/22 [Rx Last Taken 09/09/22] nystatin 100,000 unit/gram topical powder (Nyamyc) 1 applic topical BID redness/yeast #0 grams 09/10/22 [Rx Last Taken Unknown] oxycodone 5 mg tablet 5 mg PO Q6H PRN pain 3 days #12 tabs 09/10/22 [Rx Last Taken 09/10/22] sennosides 8.6 mg-docusate sodium 50 mg tablet (Stool Softener-Stimulant Laxative) 2 tab PO BID stool softener #0 tabs 09/10/22 [Rx Last Taken 09/10/22] Allergy/AdvReac Type Severity Reaction Status Date / Time codeine Allergy Unknown Verified 09/07/22 17:01 codeine phosphate AdvReac Unknown Verified 09/07/22 17:01 [From Tylenol-Codeine #3] nabumetone [From Relafen] AdvReac Unknown Verified 09/07/22 17:01 naproxen AdvReac Unknown Verified 09/07/22 17:01 Family History Mother Cancer Father Cancer Surgical History (Updated 09/10/22 @ 18:[address] Celeste Lloyd DO) H/O ovarian cystectomy History of section History of total right hip replacement S/P kyphoplasty S/P ORIF (open reduction internal fixation) fracture S/P ORIF (open reduction internal fixation) fracture Social History household members: spouse Smoking Status: Never smoker alcohol intake: never substance use type: does not use ROS Constitutional Constitutional: Reports weakness; Denies anorexia, change in weight, chills, fatigue, fever(s) or night sweats Eyes Eyes: Denies blurry vision, change in vision, eye pain or loss of vision ENT HEENT: Denies abnormal hearing, dysphagia, headache(s), hearing loss, nasal congestion or sore throat Cardiovascular Cardiovascular: Denies chest pain, dyspnea on exertion, edema, lightheadedness, orthopnea, palpitations, paroxysmal nocturnal dyspnea or syncope Respiratory/Chest Respiratory/Chest: Denies cough, dyspnea, shortness of breath at rest, shortness of breath with exertion or wheezing Gastrointestinal Gastrointestinal: Denies abdominal pain, constipation, diarrhea, dyspepsia, hematemesis, hematochezia, nausea or vomiting Genitourinary Genitourinary: Reports urinary frequency, urinary incontinence, urinary urgency and other Details: She had urinary frequency and urgency prior to being admitted to the hospital and was diagnosed with an E. coli urinary tract infection while in the hospital. She tells me that at home she is sometimes incontinent of both stool and urine. ; Denies dysuria, hematuria, nocturia or urinary hesitancy Musculoskeletal Musculoskeletal: Denies back pain, joint pain, joint swelling or neck pain Integumentary Integumentary: Denies jaundice, pruritus or rash Neurologic Neurologic: Denies confusion, disequilibrium, dizziness, focal weakness, headache(s), paresthesias, seizures or tremor(s) Psychiatric Psychiatric: Reports anxiety and depression; Denies homicidal ideation or suicidal ideation Endocrine Endocrinology: Denies change in body appearance, polydipsia or polyuria Hematologic/Lymphatic Hematologic/Lymphatic: Denies easy bleeding, easy bruising or lymphadenopathy Allergic/Immunologic Allergic/Immunologic: Denies rhinitis, eczemia or asthma Vital Signs Vital Signs Vital Signs: 09/10/22 15:47 09/10/22 16:47 Temperature 98.3 F Temperature Source Oral Pulse Rate 101 H Pulse Rhythm Regular Pulse Strength Normal (2+) Respiratory Rate 16 Respiratory Effort Normal Non-Labored Respiratory Depth Normal Respiratory Pattern Normal Blood Pressure 162/82 H Blood Pressure Mean 108 Blood Pressure Source Monitor Blood Pressure Position Semi-Fowlers Blood Pressure Location Right Arm Pulse Ox 97 Oxygen Delivery Method Nasal Cannula Nasal Cannula Oxygen Flow Rate (L/min) 1.5 1.5 Weight Weight: 146 lb 3 oz Body Mass Index (BMI) 28.5 Physical Exam Const alert, oriented x3 and no apparent distress Constitutional Narrative: Seems older than stated age. She is pleasant and cooperative. She is a little slow to respond to questions at times. General Appearance: cooperative and well kempt HEENT normocephalic, head/scalp atraumatic and moist oral mucous membranes HEENT Narrative: No thrush. Eyes EOMs intact bilaterally, conjunctivae normal and no scleral icterus Eyes Narrative: No DC from the eyes. Making good eye contact when I am talking to her. No visual field cuts. General Eye: normal appearance of both eyes; Negative for exophthalmos or proptosis Chest Chest: symmetrical chest wall rise Resp normal respiratory effort and no use of accessory muscles Resp Narrative: CTA anterior and lateral.....unable to lean forward enough for me to listen to her lungs posteriorly. Not tachypneic, no labored respirations. Effort and Inspection: able to speak in complete sentences Cardio regular rate, regular rhythm, no murmurs, no rub and no gallops Cardio Narrative: No ectopy GI normal to inspection, nondistended, normoactive bowel sounds, soft to palpation and non-tender GI Narrative: No guarding with palpation. Tells me that she has not had a BM since admission. Last BM recorded was on 09/07/22. no CVA tenderness Narrative: Urine in the Encinas bag is pale yellow and clear. Bladder / Kidney Exam: catheter in place Extremity normal capillary refill, no calf tenderness and no pedal edema Skin no jaundice General Skin Exam: no breakdown Rashes: no rashes Wound Narrative: The incision still has the silver dressing on it......will examine when the dressing is discontinued. Neuro oriented x3, CN's II-XII intact bilaterally and moves all extremities Neuro Narrative: Able to follow commands. Psych cooperative, affect normal and speech normal Appearance: grossly normal and appropriate Assessment & Plan Assessment/Plan (1) Physical debility: (2) Fall: QUALIFIERS: Encounter type: subsequent encounter Qualified Code(s): W19.XXXD - Unspecified fall, subsequent encounter PLAN: Mechanical - has a hx of frequent falls (3) Closed intertrochanteric fracture of left femur: QUALIFIERS: Encounter type: initial encounter Fracture alignment: displaced Qualified Code(s): S72.142A - Displaced intertrochanteric fracture of left femur, initial encounter for closed fracture (4) S/P ORIF (open reduction internal fixation) fracture: PLAN: Dr. Manriquez on 09/08/2022 (5) Acute blood loss anemia: PLAN: On chronic anemia (6) UTI (urinary tract infection): QUALIFIERS: Urinary tract infection type: acute cystitis Hematuria presence: without hematuria Qualified Code(s): N30.00 - Acute cystitis without hematuria PLAN: Due to villegas sensitive E. Coli. Has had 5 doses of IV antibiotics while in the hospital......Ceftriaxone X1 and 4 doses of IV Ancef. Will check a UA....I suspect the infection has resolved. (7) Urinary incontinence: QUALIFIERS: Urinary Incontinence type: unspecified incontinence Qualified Code(s): R32 - Unspecified urinary incontinence (8) Fecal incontinence: QUALIFIERS: Fecal incontinence type: unspecified Qualified Code(s): R15.9 - Full incontinence of feces (9) Sleep apnea: QUALIFIERS: Sleep apnea type: unspecified type Qualified Code(s): G47.30 - Sleep apnea, unspecified PLAN: Plan PLAN PT for gait stability OT for ADL's Analgesics as needed Bowel protocol Fall precautions Assess for Anxiety/Depression GI prophylaxis with pantoprazole DVT prophylaxis with enoxaparin Follow up with Dr. Pompa and Dr. Manriquez following DC from IP Rehab AM lab including CMP, CBC, Mag, iron studies, B12, folate and Phos UA to check for resolution of E. Coli UTI Obtain records from Dr. Pompa including a med list and a problem list DC Encinas in the AM Make O2 PRN........if the pulse ox is less than 90. Charges/Coding Visit Charges Inpatient E&M: 95777 SNF Init L2
[2022-09-10] MEDS: Nystatin Powder 15gm Bottle 1 APPLIC TOPICAL (18:47)
[2022-09-10] MEDS: Senna/Docusate Sodium 1 Tablet 2 TABLET PO (18:47)
[2022-09-10] MEDS: Calcium Carbonate 500 MG Tablet PO (18:47)
[2022-09-10] MEDS: MELATONIN 3 MG TABLET PO (22:02)
[2022-09-10] MEDS: Atorvastatin Calcium 20 MG Tablet PO (22:02)
[2022-09-11] MEDS: Fluoxetine HCl 40 MG CAPSULE PO (05:49)
[2022-09-11] MEDS: Pantoprazole Sodium 20 MG Tablet PO (05:49)
[2022-09-11] MEDS: Nystatin Powder 15gm Bottle 1 APPLIC TOPICAL ×2 (05:50→17:13)
[2022-09-11] MEDS: Levothyroxine 75 MCG Tablet PO (05:50)
[2022-09-11] MEDS: Senna/Docusate Sodium 1 Tablet 2 TABLET PO ×2 (05:50→17:13)
[2022-09-11 06:59] LABS: Squamous Epithelial Cells - UA 0 SEEN /hpf (5-10); White Blood Cells 0 SEEN /hpf (0-5)
[2022-09-11 07:01] LABS: Color, Urine Yellow (Yellow); Glucose, Dipstick Normal (Normal); Leukocyte Esterase-Dipstick 25 /ul (Negative); Nitrite-Dipstick Negative (Negative); Occult Blood-Urine 25 /ul (Negative); Protein-Dipstick 30 mg/dl (Negative); Specific Gravity, Urine 1.025 (1.002-1.030); Urine Bilirubin Dipstick Negative (Negative); Urine Clarity Clear (Clear); Urine Urobilinogen Normal (Normal)
[2022-09-11 07:07] LABS: Ketone-Dipstick 150 mg/dl (Negative)
[2022-09-11 07:11] LABS: Mucous, Urine 2+ /hpf (<or=2+); Red Blood Cells-Urine 0-5 SEEN /hpf (0-5)
[2022-09-11 08:07] LABS: AST(SGOT) 33 U/L (15-37); Alanine Aminotransfer ALT/SGPT 19 U/L (13-56); Albumin, Serum 1.9 g/dL (3.2-5.0); Alkaline Phosphatase 101 U/L (45-117); Anion Gap 7 (5-15); BUN 10 mg/dL (7-18); BUN/Creat Ratio 21.8 RATIO (10-20); Bilirubin, Direct 0.34 mg/dL (0.00-0.30); Calcium,Total 7.9 mg/dL (8.5-10.1); Chloride 107 mmol/L (98-107); Creatinine, Serum 0.46 mg/dL (0.55-1.02); EST Glomerular Filtration Rate 142 mL/min (>60); Est Glom Filt Rate - Afr Amer 171 mL/min (>60); Estimated Creatinine Clearance 35.45 ml/min; Globulin 3.8 g/dL (2.2-4.2); Glucose 104 mg/dL (74-106); Potassium 3.4 mmol/L (3.5-5.1); Protein, Total 5.7 g/dL (6.4-8.2); Sodium Level 137 mmol/L (136-145)
[2022-09-11] MEDS: Calcium Carbonate 500 MG Tablet PO ×3 (08:17→17:13)
[2022-09-11 08:20] LABS: Ferritin 66 ng/mL (8-252); Iron 13 ug/dL (50-170); Iron Binding Capacity,Total 191 ug/dL (250-450); PERCENT IRON SATURATION 6.8 % (15.0-55.0); Phosphorus 2.4 mg/dL (2.5-4.9)
[2022-09-11] MEDS: Tuberculin,Purif.prot.deriv. 50 TU/ML Vial 0.1 ML ID (11:53)
[2022-09-11 15:23] VITALS: BP 138/77; PULSE 100; RESP 15; TEMP 36.9; O2SAT 92
--- NOTE | 2022-09-11 17:24 | PCM.PN.BLA ---
Progress Note Afebrile Vital signs stable Maintaining appropriate oxygen saturation of 92% on room air. I reviewed all labs done this morning. She had a CMP and also iron studies, folate and B12. B12 is still pending. Folate is normal at 19.9. The ferritin is 66 which is normal but this is an acute phase reactant and is likely falsely elevated. The serum iron is only 13 and the iron saturation is 6.8% and this is after she was transfused with packed red blood cells yesterday. Total bilirubin is mildly increased at 1.2. Potassium is low at 3.4 and the BUN is 10 with a creatinine of 0.46 and a BUN/creatinine ratio of 21.8. Estimated creatinine clearance is 35.45. Calcium corrected for hypoalbuminemia is within normal limits. Magnesium is normal but phosphorus is low at 2.4. She had a urine sent today and there are no white blood cells and no bacteria reported. Specific gravity is on the high end at 1.025 and she has protein and ketones in her urine. She is not diabetic. She is on no hypoglycemic agents. Impressions 1. dehydration 2. Ketonuria is likely due to poor intake - she only took 25-49% of lunch and I do not see intake for breakfast recorded. MM are very dry. 3. Hypokalemia 4. Hypophosphatemia 5. Iron deficiency Order IV iron sucrose 100 mg today and if no adverse reaction to this will prescribe 200 mg IV daily for 4 doses Check a hemoccult stool Gently hydrate and recheck a BMP on Tuesday and also check a Phos. Supplement K and phos. Recheck a CBC on Tuesday also
[2022-09-11] MEDS: CLARIFY ORDER NOTE (18:19)
[2022-09-11] MEDS: 0.9% Saline Lock 10 ML Syringe IV (18:47)
[2022-09-11] MEDS: Atorvastatin Calcium 20 MG Tablet PO (20:26)
--- NOTE | 2022-09-11 20:43 | NURSING ---
When assisting [employer] with getting patient to bed, patient noted to have several blisters on left leg around where dressings were placed post surgery. Dressings removed, ABD's applied with paper tape. Will continue to monitor.
--- NOTE | 2022-09-12 01:30 | NURSING ---
Phosphate infusion complete. Patient noted to have reddened area to left inner elbow just above IV site, area somewhat firm, but patient denies any pain. IV discontinued at this time. Attempts x 3 to insert new IV unsuccessful. Patient does have IV to right hand. Potassium in Lactated ringers running at this IV site. Will continue to monitor.
[2022-09-12] MEDS: Senna/Docusate Sodium 1 Tablet 2 TABLET PO ×2 (04:36→17:42)
[2022-09-12] MEDS: Enoxaparin 40 MG/0.4 ML Syringe SC (04:36)
[2022-09-12] MEDS: Levothyroxine 75 MCG Tablet PO (04:36)
[2022-09-12] MEDS: Pantoprazole Sodium 20 MG Tablet PO (04:36)
[2022-09-12] MEDS: Fluoxetine HCl 40 MG CAPSULE PO (04:36)
[2022-09-12] MEDS: Nystatin Powder 15gm Bottle 1 APPLIC TOPICAL ×2 (05:13→18:50)
--- NOTE | 2022-09-12 05:14 | NURSING ---
IV started in left hand, 22G in place, flushes without difficulty. Patient tolerated well. Will continue to monitor.
[2022-09-12 07:03] LABS: Absolute Lymphocyte Count 1.12 X10^3/uL (0.83-4.51); Absolute Neutrophil Count 6.1 X10^3/uL (2.0-7.7); Basophil# 0.05 X10^3/uL; Basophil% 0.6 % (0-1); Eosinophil# 0.38 X10^3/uL; Eosinophils% 4.4 % (0-5); Hematocrit 27.4 % (37-47); Lymphocyte # 1.12 X10^3/ul (0.83-4.51); Mean Corp Hgb Conc 32.8 g/dL (32-36); Mean Corpuscular Volume 91.3 fL (81-99); Monocyte# 0.91 X10^3/uL; Monocyte% 10.6 % (0-10); NRBC Flagged by Analyzer 0.2 % (0-5); Neutrophil # 6.07 X10^3/uL (2.7-7.7); Neutrophil % 70.7 % (47-70); Platelet Count 275 K/mm3 (150-450); RBC Distribution Width CV 14.9 % (11.6-14.6); RBC Distribution Width SD 49.9 fl (35.1-43.9); White Blood Count 8.6 K/mm3 (4.4-11.0)
[2022-09-12] MEDS: Calcium Carbonate 500 MG Tablet PO ×3 (08:45→17:42)
[2022-09-12] MEDS: Sodium Ferric Gluconat 250 MG in 0.9% Normal Saline 250 ML 135 MG IV (11:05)
[2022-09-12] MEDS: 0.9% Saline Lock 10 ML Syringe IV (11:05)
[2022-09-12] MEDS: oxyCODONE 5 MG Tablet PO (11:19)
[2022-09-12 13:21] VITALS: BP 108/57; PULSE 104; RESP 18; TEMP 36.6; O2SAT 92
[2022-09-12 20:21] VITALS: PULSE 98; RESP 18; O2SAT 95
[2022-09-12] MEDS: Atorvastatin Calcium 20 MG Tablet PO (20:54)
[2022-09-13] MEDS: Senna/Docusate Sodium 1 Tablet 2 TABLET PO ×2 (04:56→17:32)
[2022-09-13] MEDS: Enoxaparin 40 MG/0.4 ML Syringe SC (04:56)
[2022-09-13] MEDS: Fluoxetine HCl 40 MG CAPSULE PO (04:56)
[2022-09-13] MEDS: Pantoprazole Sodium 20 MG Tablet PO (04:56)
[2022-09-13] MEDS: Levothyroxine 75 MCG Tablet PO (04:57)
[2022-09-13] MEDS: Nystatin Powder 15gm Bottle 1 APPLIC TOPICAL ×2 (05:02→17:32)
[2022-09-13 05:44] LABS: Absolute Lymphocyte Count 1.16 X10^3/uL (0.83-4.51); Absolute Neutrophil Count 5.8 X10^3/uL (2.0-7.7); Basophil# 0.06 X10^3/uL; Basophil% 0.7 % (0-1); Eosinophil# 0.47 X10^3/uL; Eosinophils% 5.5 % (0-5); Hematocrit 28.4 % (37-47); Hemoglobin 9.1 g/dL (12.0-15.0); Lymphocyte # 1.16 X10^3/ul (0.83-4.51); Lymphocyte % 13.6 % (19-41); Mean Corpuscular Hgb 29.7 pg (27.0-32.0); Mean Corpuscular Volume 92.8 fL (81-99); Mean Platelet Vol. 9.5 fl (6.2-12.0); Monocyte# 0.99 X10^3/uL; Monocyte% 11.6 % (0-10); NRBC Flagged by Analyzer 0 % (0-5); Neutrophil # 5.77 X10^3/uL (2.7-7.7); Neutrophil % 67.5 % (47-70); Platelet Count 323 K/mm3 (150-450); RBC Distribution Width SD 50.5 fl (35.1-43.9); Red Blood Count 3.06 M/mm3 (4.2-5.4); White Blood Count 8.5 K/mm3 (4.4-11.0)
[2022-09-13 06:11] LABS: Anion Gap 5 (5-15); BUN 10 mg/dL (7-18); BUN/Creat Ratio 22.9 RATIO (10-20); Calcium,Total 7.9 mg/dL (8.5-10.1); Chloride 110 mmol/L (98-107); Creatinine, Serum 0.44 mg/dL (0.55-1.02); EST Glomerular Filtration Rate 150 mL/min (>60); Est Glom Filt Rate - Afr Amer 181 mL/min (>60); Estimated Creatinine Clearance 35.45 ml/min; Glucose 97 mg/dL (74-106); Phosphorus 3.1 mg/dL (2.5-4.9); Potassium 3.5 mmol/L (3.5-5.1); Sodium Level 140 mmol/L (136-145)
[2022-09-13] MEDS: Calcium Carbonate 500 MG Tablet PO ×3 (08:24→17:32)
[2022-09-13] MEDS: Sodium Ferric Gluconat 250 MG in 0.9% Normal Saline 250 ML 135 MG IV (09:09)
[2022-09-13] MEDS: 0.9% Saline Lock 10 ML Syringe IV ×2 (09:13→21:50)
[2022-09-13 09:53] LABS: Vitamin B12 298 pg/mL (211-911)
--- NOTE | 2022-09-13 12:03 | NURSING ---
Cardiology Clinical Consultant Note; Activity Asset: Sarah Decker is independent in her choice of daily activities. When not in therapy she enjoys visits w/her family, friends and assessment analyst. She reads the daily bread, her magazines and works on word puzzles. She welcomes visit from the haul truck driver and therapy dog. Staff will remind her of daily activities and respect her right to say 'no.
--- NOTE | 2022-09-13 13:15 | NURSING ---
fuller removed at this time per MD order. resting in recliner chair, call light in reach. dressings removed from LT hip incisions, small amt of drng noted to proximal incision. Left all incisions IRRIGATION EQUIPMENT REMOVER d/t large blisters around incisions. pad placed under pt to protect clothing/chair. pt pleasant and cooperative with standing and assessing skin.
[2022-09-13 13:16] VITALS: PULSE 100; RESP 18; O2SAT 92
--- NOTE | 2022-09-13 15:29 | CASEMGMT ---
Social Work See attached social work assessment for completed details. Met with patient in room, introduced self and outreach and education social worker role. Patient agreeable to speak with this outreach and education social worker. Patient spouse present, patient provided verbal permission for this outreach and education social worker to speak openly with patient spouse present. Patient plans to discharge to home with spouse at time of discharge. This outreach and education social worker communicating that insurance update is due on 09/15/2022 with no guarantee of continued stay approval, patient voiced understanding. MOLST form completed with patient, patient wishes to be a Full Code, this outreach and education social worker updated nursing staff. Patient to continue with further care and treatment on the TCU. PLAN: Home with spouse Jose Raul SHORT, CORNELL
[2022-09-13 16:00] VITALS: BP 136/75; PULSE 97; RESP 17; TEMP 36.7; O2SAT 94
[2022-09-13] MEDS: Atorvastatin Calcium 20 MG Tablet PO (21:52)
[2022-09-14] MEDS: oxyCODONE 5 MG Tablet PO ×2 (00:51→23:48)
[2022-09-14] MEDS: MELATONIN 3 MG TABLET PO ×2 (00:51→23:48)
[2022-09-14 06:10] LABS: Absolute Lymphocyte Count 1.29 X10^3/uL (0.83-4.51); Absolute Neutrophil Count 6.7 X10^3/uL (2.0-7.7); Basophil# 0.07 X10^3/uL; Basophil% 0.7 % (0-1); Eosinophil# 0.46 X10^3/uL; Eosinophils% 4.7 % (0-5); Hematocrit 30.2 % (37-47); Hemoglobin 9.5 g/dL (12.0-15.0); Lymphocyte # 1.29 X10^3/ul (0.83-4.51); Lymphocyte % 13.1 % (19-41); Mean Corp Hgb Conc 31.5 g/dL (32-36); Mean Corpuscular Hgb 29.5 pg (27.0-32.0); Mean Corpuscular Volume 93.8 fL (81-99); Mean Platelet Vol. 9.5 fl (6.2-12.0); Monocyte# 1.12 X10^3/uL; Monocyte% 11.4 % (0-10); NRBC Flagged by Analyzer 0 % (0-5); Neutrophil # 6.67 X10^3/uL (2.7-7.7); Neutrophil % 67.7 % (47-70); Platelet Count 401 K/mm3 (150-450); RBC Distribution Width CV 14.9 % (11.6-14.6); RBC Distribution Width SD 50.6 fl (35.1-43.9); Red Blood Count 3.22 M/mm3 (4.2-5.4); White Blood Count 9.9 K/mm3 (4.4-11.0)
[2022-09-14] MEDS: Pantoprazole Sodium 20 MG Tablet PO (06:23)
[2022-09-14] MEDS: Senna/Docusate Sodium 1 Tablet 2 TABLET PO ×2 (06:23→17:44)
[2022-09-14] MEDS: Levothyroxine 75 MCG Tablet PO (06:24)
[2022-09-14] MEDS: Fluoxetine HCl 40 MG CAPSULE PO (06:24)
[2022-09-14] MEDS: Enoxaparin 40 MG/0.4 ML Syringe SC (06:24)
[2022-09-14] MEDS: Nystatin Powder 15gm Bottle 1 APPLIC TOPICAL ×2 (06:24→17:44)
[2022-09-14] MEDS: Sodium Ferric Gluconat 250 MG in 0.9% Normal Saline 250 ML 135 MG IV (06:51)
[2022-09-14] MEDS: Calcium Carbonate 500 MG Tablet PO ×3 (08:30→17:44)
[2022-09-14 09:32] VITALS: PULSE 99; RESP 17; O2SAT 94
[2022-09-14 14:50] VITALS: BMI 29.2
[2022-09-14 16:00] VITALS: BP 135/72; PULSE 88; RESP 14; TEMP 37; O2SAT 91
[2022-09-14] MEDS: Atorvastatin Calcium 20 MG Tablet PO (22:37)
[2022-09-14] MEDS: 0.9% Saline Lock 10 ML Syringe IV (22:40)
[2022-09-14 23:22] VITALS: PULSE 90; RESP 16; O2SAT 91
[2022-09-15] MEDS: Levothyroxine 75 MCG Tablet PO (05:30)
[2022-09-15] MEDS: Enoxaparin 40 MG/0.4 ML Syringe SC (05:30)
[2022-09-15] MEDS: Fluoxetine HCl 40 MG CAPSULE PO (05:30)
[2022-09-15] MEDS: Nystatin Powder 15gm Bottle 1 APPLIC TOPICAL ×2 (05:31→17:44)
[2022-09-15] MEDS: Senna/Docusate Sodium 1 Tablet 2 TABLET PO ×2 (05:31→17:43)
[2022-09-15] MEDS: Pantoprazole Sodium 20 MG Tablet PO (05:31)
[2022-09-15] MEDS: oxyCODONE 5 MG Tablet PO ×2 (05:42→17:43)
[2022-09-15 05:50] LABS: Absolute Lymphocyte Count 1.31 X10^3/uL (0.83-4.51); Absolute Neutrophil Count 6.5 X10^3/uL (2.0-7.7); Basophil# 0.06 X10^3/uL; Basophil% 0.6 % (0-1); Eosinophil# 0.51 X10^3/uL; Eosinophils% 5.3 % (0-5); Hematocrit 28.9 % (37-47); Hemoglobin 9.5 g/dL (12.0-15.0); Lymphocyte # 1.31 X10^3/ul (0.83-4.51); Lymphocyte % 13.6 % (19-41); Mean Corp Hgb Conc 32.9 g/dL (32-36); Mean Corpuscular Hgb 30.4 pg (27.0-32.0); Mean Corpuscular Volume 92.3 fL (81-99); Mean Platelet Vol. 9.2 fl (6.2-12.0); Monocyte# 1.03 X10^3/uL; Monocyte% 10.7 % (0-10); NRBC Flagged by Analyzer 0.3 % (0-5); Neutrophil % 67.4 % (47-70); Platelet Count 427 K/mm3 (150-450); RBC Distribution Width SD 49.2 fl (35.1-43.9); Red Blood Count 3.13 M/mm3 (4.2-5.4); White Blood Count 9.6 K/mm3 (4.4-11.0)
[2022-09-15 07:27] VITALS: O2SAT 94
[2022-09-15] MEDS: Calcium Carbonate 500 MG Tablet PO ×3 (08:09→17:43)
[2022-09-15 13:31] VITALS: BP 137/78; PULSE 87; RESP 14; TEMP 36.1; O2SAT 93
--- NOTE | 2022-09-15 15:52 | NURSING ---
Call from Dr. Manriquez's office. Per his staff he will come see the patient here on TCU for a follow up. They said it will probably be on 09/23.
[2022-09-15] MEDS: Acetaminophen 500 MG Tablet 1000 MG PO (21:23)
[2022-09-15] MEDS: Atorvastatin Calcium 20 MG Tablet PO (21:23)
[2022-09-16] MEDS: Enoxaparin 40 MG/0.4 ML Syringe SC (04:26)
[2022-09-16] MEDS: oxyCODONE 5 MG Tablet PO (04:26)
[2022-09-16] MEDS: Levothyroxine 75 MCG Tablet PO (04:26)
[2022-09-16] MEDS: Senna/Docusate Sodium 1 Tablet 2 TABLET PO ×2 (04:26→17:12)
[2022-09-16] MEDS: Fluoxetine HCl 40 MG CAPSULE PO (04:27)
[2022-09-16] MEDS: Pantoprazole Sodium 20 MG Tablet PO (04:27)
[2022-09-16] MEDS: Acetaminophen 500 MG Tablet 1000 MG PO ×3 (04:28→21:47)
[2022-09-16] MEDS: Nystatin Powder 15gm Bottle 1 APPLIC TOPICAL ×2 (04:38→17:13)
[2022-09-16 05:46] LABS: Absolute Lymphocyte Count 1.81 X10^3/uL (0.83-4.51); Basophil# 0.07 X10^3/uL; Basophil% 0.7 % (0-1); Eosinophil# 0.56 X10^3/uL; Eosinophils% 5.8 % (0-5); Hematocrit 30.8 % (37-47); Hemoglobin 9.7 g/dL (12.0-15.0); Lymphocyte # 1.81 X10^3/ul (0.83-4.51); Lymphocyte % 18.8 % (19-41); Mean Corp Hgb Conc 31.5 g/dL (32-36); Mean Corpuscular Hgb 30.3 pg (27.0-32.0); Mean Corpuscular Volume 96.3 fL (81-99); Mean Platelet Vol. 9.2 fl (6.2-12.0); Monocyte# 0.99 X10^3/uL; Monocyte% 10.3 % (0-10); NRBC Flagged by Analyzer 0.3 % (0-5); Neutrophil # 5.98 X10^3/uL (2.7-7.7); Neutrophil % 62.2 % (47-70); Platelet Count 490 K/mm3 (150-450); RBC Distribution Width CV 15.5 % (11.6-14.6); RBC Distribution Width SD 51.8 fl (35.1-43.9); White Blood Count 9.6 K/mm3 (4.4-11.0)
[2022-09-16] MEDS: Calcium Carbonate 500 MG Tablet PO ×3 (07:58→17:12)
[2022-09-16] MEDS: 0.9% Saline Lock 10 ML Syringe IV (14:07)
[2022-09-16 16:00] VITALS: BP 131/77; PULSE 87; RESP 16; TEMP 36.6; O2SAT 93
[2022-09-16 17:16] VITALS: O2SAT 93
[2022-09-16 21:28] VITALS: PULSE 85; RESP 16; O2SAT 98
[2022-09-16] MEDS: Atorvastatin Calcium 20 MG Tablet PO (21:50)
[2022-09-17] MEDS: Pantoprazole Sodium 20 MG Tablet PO (05:18)
[2022-09-17] MEDS: Enoxaparin 40 MG/0.4 ML Syringe SC (05:18)
[2022-09-17] MEDS: Fluoxetine HCl 40 MG CAPSULE PO (05:18)
[2022-09-17] MEDS: Senna/Docusate Sodium 1 Tablet 2 TABLET PO ×2 (05:18→17:01)
[2022-09-17] MEDS: Levothyroxine 75 MCG Tablet PO (05:18)
[2022-09-17] MEDS: Nystatin Powder 15gm Bottle 1 APPLIC TOPICAL ×2 (05:20→17:02)
[2022-09-17] MEDS: Acetaminophen 500 MG Tablet 1000 MG PO ×3 (05:20→23:16)
[2022-09-17 05:45] LABS: Absolute Lymphocyte Count 1.71 X10^3/uL (0.83-4.51); Basophil# 0.09 X10^3/uL; Basophil% 0.9 % (0-1); Eosinophil# 0.43 X10^3/uL; Eosinophils% 4.1 % (0-5); Hematocrit 32.1 % (37-47); Hemoglobin 10.2 g/dL (12.0-15.0); Lymphocyte # 1.71 X10^3/ul (0.83-4.51); Lymphocyte % 16.4 % (19-41); Mean Corp Hgb Conc 31.8 g/dL (32-36); Mean Corpuscular Hgb 30.2 pg (27.0-32.0); Mean Platelet Vol. 9.1 fl (6.2-12.0); Monocyte# 0.87 X10^3/uL; Monocyte% 8.3 % (0-10); NRBC Flagged by Analyzer 0 % (0-5); Neutrophil % 67.2 % (47-70); Platelet Count 570 K/mm3 (150-450); RBC Distribution Width CV 15.7 % (11.6-14.6); RBC Distribution Width SD 51.2 fl (35.1-43.9); Red Blood Count 3.38 M/mm3 (4.2-5.4); White Blood Count 10.4 K/mm3 (4.4-11.0)
[2022-09-17] MEDS: Calcium Carbonate 500 MG Tablet PO ×3 (07:44→17:01)
--- NOTE | 2022-09-17 09:38 | NURSING ---
High School Football Coach Note; MDS Complete
[2022-09-17] MEDS: oxyCODONE 5 MG Tablet PO ×2 (09:57→20:09)
--- NOTE | 2022-09-17 11:24 | CASEMGMT ---
Social Work BIMS () and PHQ-9 (10/07) completed for MDS assessment. SW explored positive responses. Pt expressed having the lack of mobility impacts her interest and mood. Pt is not as physically active, not burning as many calories, thus loss of appetite, per pt. Pt also explained her 9 year old dog two days after pt admitted, and that has impacted her mood. SW empathized with pt. Provided emotional support. Offered ongoing supportive visits, as needed. SW will continue to monitor. DEJA AshW
--- NOTE | 2022-09-17 15:22 | PCM.PN.DRR ---
TCU RX Drug Regimen Review Subjective/Objective Subjective/Objective: Subjective: TCU Admit. 76 YOF presented to [facility] ED on 09/07 after fall at home. Admitted to TCU on 09/10 for rehabilitation and strengthening prior to discharge home Objective: Allergies codeine Allergy (Verified 09/07/22 17:01) Unknown codeine phosphate [From Tylenol-Codeine #3] Adverse Reaction (Verified 09/07/22 17:01) Unknown nabumetone [From Relafen] Adverse Reaction (Verified 09/07/22 17:01) Unknown naproxen Adverse Reaction (Verified 09/07/22 17:01) Unknown Current Medications Generic Name Dose Route Start Last Admin Trade Name Freq PRN Reason Stop Dose Admin Acetaminophen 1,000 mg 09/15/22 17:45 09/17/22 14:03 Acetaminophen 500 Mg Tablet PO 1,000 mg Q8 LUANA Administration Alendronate Sodium 70 mg 09/20/22 06:00 Alendronate Sodium 70 Mg Tablet PO Mo@0600 LUANA Atorvastatin Calcium 20 mg 09/10/22 22:00 09/16/22 21:50 Atorvastatin Calcium 20 Mg Tablet PO 20 mg QHS LUANA Administration Calcium Carbonate 500 mg 09/10/22 17:45 09/17/22 12:31 Calcium Carbonate 500 Mg Tablet PO 500 mg TIDCM LUANA Administration Enoxaparin Sodium 40 mg 09/12/22 06:00 09/17/22 05:18 Enoxaparin 40 Mg/0.4 Ml Syringe SC 40 mg 0600 LUANA Administration Fluoxetine HCl 40 mg 09/11/22 06:00 09/17/22 05:18 Fluoxetine Hcl 40 Mg Capsule PO 40 mg DAILY LUANA Administration Sodium Chloride 250 mls @ 15 mls/hr 09/10/22 15:45 09/14/22 09:10 IV Infused .[id number] PRN Infusion Saline Flush Levothyroxine Sodium 75 mcg 09/11/22 06:00 09/17/22 05:18 Levothyroxine 75 Mcg Tablet PO 75 mcg DAILY LUANA Administration Melatonin 3 mg 09/10/22 16:14 09/14/22 23:48 Melatonin 3 Mg Tablet PO 3 mg QHS PRN PRN Administration Insomnia Nystatin 1 applic 09/10/22 18:00 09/17/22 05:20 Nystatin Powder 15gm Bottle TOPICAL 1 applic BID LUANA Administration Protocol Oxycodone HCl 5 mg 09/10/22 16:19 09/17/22 09:57 Oxycodone 5 Mg Tablet PO 5 mg Q6H PRN PRN Administration Pain Score 1-10 Pantoprazole Sodium 20 mg 09/11/22 06:00 09/17/22 05:18 Pantoprazole Sodium 20 Mg Tablet PO 20 mg DAILY LUANA Administration Senna/Docusate Sodium 2 tablet 09/10/22 18:00 09/17/22 05:18 Senna/Docusate Sodium 1 Tablet PO 2 tablet BID LUANA Administration Sodium Chloride 10 - 40 ml 09/10/22 15:45 09/16/22 14:07 0.9% Saline Lock 10 Ml Syringe IV 10 ml UD PRN Administration SALINE FLUSH Tuberculin PPD 0.1 ml 09/18/22 10:00 Tuberculin,Purif.Prot.Deriv. 50 Tu/Ml Vial ID 09/18/22 10:01 X1 ONE Problem List (Updated 09/10/22 @ 18:[address] Celeste Lloyd, DO) Fecal incontinence (Acute) Urinary incontinence (Acute) Sleep apnea (Acute) S/P ORIF (open reduction internal fixation) fracture (Acute) Fall (Acute) Physical debility (Acute) Closed intertrochanteric fracture of left femur (Acute) Acute blood loss anemia (Acute) UTI (urinary tract infection) (Acute) Vital Signs Temp Pulse Resp BP Pulse Ox O2 Del Method O2 Flow Rate 97.9 F 85 16 131/77 H 98 Room Air 1.5 09/16/22 16:00 09/16/22 21:28 09/16/22 21:28 09/16/22 16:00 09/16/22 21:28 09/17/22 08:22 09/10/22 16:47 Oxygen Flow Rate (L/min) 1.5 Oxygen Delivery Method Room Air Weight: 68.084 kg Body Mass Index (BMI) 29.2 Sodium 140 mmol/L (136-145) 09/13/22 05:27 Potassium 3.5 mmol/L (3.5-5.1) 09/13/22 05:27 Chloride 110 mmol/L (98-107) H 09/13/22 05:27 Carbon Dioxide 25.0 mmol/L (21.0-32.0) 09/13/22 05:27 Anion Gap 5 (5-15) 09/13/22 05:27 BUN 10 mg/dL (7-18) 09/13/22 05:27 Creatinine 0.44 mg/dL (0.55-1.02) L 09/13/22 05:27 Est GFR (MDRD) Af Amer 181 mL/min (>60) 09/13/22 05:27 Est GFR (MDRD) Non-Af 150 mL/min (>60) 09/13/22 05:27 BUN/Creatinine Ratio 22.9 RATIO (10-20) H 09/13/22 05:27 Glucose 97 mg/dL (74-106) 09/13/22 05:27 Assessment/Plan: 1. Pain: Tylenol 1000mg PO Q8H, oxycodone 5mg PO q6H PRN pain (1-10). Please continue to monitor pain, oversedation, PRN medication use. Pt has had 7 doses of oxycodone to date (for pain 2-10/21 in hip. Pain reassessment: 04/23) 2. DVT prophylaxis: Enoxaparin 40mg SC Daily. Please continue to monitor for s/s of DVT, increased bleeding and bruising, renal function (last Scr: 0.44, CrCl: 35.45 on 09/17), H & H (Hgb: 10.2, Hct: 32.1 on 09/17). 3. Bowel: Senna/docusate 2 T PO BID. Please continue to monitor for increased/decreased constipation/diarrhea. Pt has had 3 bowel movements to date. 4. GI prophylaxis/GERD: Pantprozole 20mg PO daily, TUMS 1 T PO TIDCM. Please continue to monitor for s/s of GERD, educate on non-pharmacological means to prevent GERD symptoms. 5. Hypothyroidism: Levothyroxine 75mcg PO daily. Please continue to monitor TSH/T4 (last TSH: 0.59 on 09/08), s/s of hypo/hyperthyroidism.? 6. Osteoporosis: Alendronate 70mg PO once weekly on tuesday. Please continue to monitor for falls/fractures, BMD. 7. Hyperlipidemia: Atorvastatin 20mg PO QHS. Please continue to monitor muscle pain, lipid panel, s/s of Cardiovascular event.? 8. Insomnia: Melatonin 3mg PO QHS PRN insomnia. Please continue to monitor for oversedation, PRN medication use. Pt has had 3 doses of melatonin to date Assessment/Plan for indications treated with psychotropic medications: 9. Anxiety/Depression: Fluoxetine 40mg PO Daily. Please consider GDR by 04/06 if clinically indicated. Please continue to monitor mental status, fall/fractures (BEERs criteria), suicidal ideation (Black box warning) Medical chart and medication regimen reviewed. The following medication irregularities or issues were identified: 1. Atorvastatin: Please consider updated lipid panel if clinically indicated. Thanks. Date Date of Note:: 09/17/22
[2022-09-17 15:53] VITALS: BP 138/82; PULSE 90; RESP 16; TEMP 36.2; O2SAT 95
[2022-09-17] MEDS: Atorvastatin Calcium 20 MG Tablet PO (23:15)
[2022-09-18] MEDS: Pantoprazole Sodium 20 MG Tablet PO (06:25)
[2022-09-18] MEDS: Levothyroxine 75 MCG Tablet PO (06:26)
[2022-09-18] MEDS: Fluoxetine HCl 40 MG CAPSULE PO (06:26)
[2022-09-18] MEDS: Acetaminophen 500 MG Tablet 1000 MG PO ×3 (06:27→22:27)
[2022-09-18] MEDS: Enoxaparin 40 MG/0.4 ML Syringe SC (06:27)
[2022-09-18] MEDS: Nystatin Powder 15gm Bottle 1 APPLIC TOPICAL ×2 (06:27→17:37)
[2022-09-18] MEDS: 0.9% Saline Lock 10 ML Syringe IV (06:35)
[2022-09-18 07:25] VITALS: O2SAT 95
[2022-09-18] MEDS: Calcium Carbonate 500 MG Tablet PO ×3 (08:16→17:36)
[2022-09-18 08:43] LABS: Anion Gap 5 (5-15); BUN 13 mg/dL (7-18); BUN/Creat Ratio 20.7 RATIO (10-20); Calcium,Total 8.4 mg/dL (8.5-10.1); Chloride 107 mmol/L (98-107); Creatinine, Serum 0.63 mg/dL (0.55-1.02); EST Glomerular Filtration Rate 98 mL/min (>60); Est Glom Filt Rate - Afr Amer 119 mL/min (>60); Estimated Creatinine Clearance 35.45 ml/min; Glucose 112 mg/dL (74-106); Potassium 4.2 mmol/L (3.5-5.1); Sodium Level 138 mmol/L (136-145)
[2022-09-18] MEDS: Tuberculin,Purif.prot.deriv. 50 TU/ML Vial 0.1 ML ID (10:29)
[2022-09-18 13:55] VITALS: BP 132/74; PULSE 86; RESP 16; TEMP 36.4; O2SAT 95
[2022-09-18] MEDS: Atorvastatin Calcium 20 MG Tablet PO (22:28)
[2022-09-19] MEDS: Fluoxetine HCl 40 MG CAPSULE PO (06:43)
[2022-09-19] MEDS: Nystatin Powder 15gm Bottle 1 APPLIC TOPICAL ×2 (06:43→16:59)
[2022-09-19] MEDS: Enoxaparin 40 MG/0.4 ML Syringe SC (06:43)
[2022-09-19] MEDS: Levothyroxine 75 MCG Tablet PO (06:44)
[2022-09-19] MEDS: Pantoprazole Sodium 20 MG Tablet PO (06:44)
[2022-09-19] MEDS: Acetaminophen 500 MG Tablet 1000 MG PO ×3 (06:47→20:41)
[2022-09-19 07:00] VITALS: O2SAT 95
[2022-09-19] MEDS: Calcium Carbonate 500 MG Tablet PO ×3 (07:59→17:00)
[2022-09-19 14:27] VITALS: BP 129/72; PULSE 88; RESP 16; TEMP 36.1; O2SAT 95
[2022-09-19] MEDS: Atorvastatin Calcium 20 MG Tablet PO (20:40)
[2022-09-20] MEDS: Levothyroxine 75 MCG Tablet PO (05:25)
[2022-09-20] MEDS: Fluoxetine HCl 40 MG CAPSULE PO (05:25)
[2022-09-20] MEDS: Pantoprazole Sodium 20 MG Tablet PO (05:25)
[2022-09-20] MEDS: Enoxaparin 40 MG/0.4 ML Syringe SC (05:25)
[2022-09-20] MEDS: Senna/Docusate Sodium 1 Tablet 2 TABLET PO ×2 (05:25→17:46)
[2022-09-20] MEDS: Acetaminophen 500 MG Tablet 1000 MG PO ×3 (05:25→21:21)
[2022-09-20] MEDS: Alendronate Sodium 70 MG Tablet PO (05:25)
[2022-09-20] MEDS: Nystatin Powder 15gm Bottle 1 APPLIC TOPICAL ×2 (05:26→17:46)
[2022-09-20 06:46] VITALS: O2SAT 94
[2022-09-20] MEDS: Calcium Carbonate 500 MG Tablet PO ×3 (07:49→17:46)
[2022-09-20 14:03] VITALS: BP 116/74; PULSE 87; RESP 14; TEMP 36.6; O2SAT 93
[2022-09-20] MEDS: Atorvastatin Calcium 20 MG Tablet PO (21:21)
[2022-09-21] MEDS: Pantoprazole Sodium 20 MG Tablet PO (04:46)
[2022-09-21] MEDS: oxyCODONE 5 MG Tablet PO ×2 (04:46→10:46)
[2022-09-21] MEDS: Senna/Docusate Sodium 1 Tablet 2 TABLET PO ×2 (04:47→17:36)
[2022-09-21] MEDS: Levothyroxine 75 MCG Tablet PO (04:47)
[2022-09-21] MEDS: Enoxaparin 40 MG/0.4 ML Syringe SC (04:47)
[2022-09-21] MEDS: Fluoxetine HCl 40 MG CAPSULE PO (04:47)
[2022-09-21] MEDS: Acetaminophen 500 MG Tablet 1000 MG PO ×3 (04:49→21:57)
[2022-09-21] MEDS: Nystatin Powder 15gm Bottle 1 APPLIC TOPICAL ×2 (04:55→17:38)
[2022-09-21] MEDS: Calcium Carbonate 500 MG Tablet PO ×3 (09:02→17:36)
[2022-09-21 09:45] VITALS: O2SAT 93
[2022-09-21 15:54] VITALS: BP 124/78; PULSE 86; RESP 15; TEMP 36.2; O2SAT 97
[2022-09-21 16:18] VITALS: BMI 26.9
[2022-09-21] MEDS: Atorvastatin Calcium 20 MG Tablet PO (21:57)
[2022-09-22] MEDS: oxyCODONE 5 MG Tablet PO ×2 (05:04→17:21)
[2022-09-22] MEDS: Pantoprazole Sodium 20 MG Tablet PO (05:05)
[2022-09-22] MEDS: Levothyroxine 75 MCG Tablet PO (05:05)
[2022-09-22] MEDS: Senna/Docusate Sodium 1 Tablet 2 TABLET PO ×2 (05:05→17:17)
[2022-09-22] MEDS: Acetaminophen 500 MG Tablet 1000 MG PO ×3 (05:05→20:42)
[2022-09-22] MEDS: Fluoxetine HCl 40 MG CAPSULE PO (05:05)
[2022-09-22] MEDS: Enoxaparin 40 MG/0.4 ML Syringe SC (05:05)
[2022-09-22] MEDS: Nystatin Powder 15gm Bottle 1 APPLIC TOPICAL ×2 (05:11→17:22)
[2022-09-22 07:25] VITALS: O2SAT 96
--- NOTE | 2022-09-22 07:39 | MDS.RN ---
Information for the mds was obtained from review of the clinical record, interview of resident, staff, and direct observation of resident's care.
[2022-09-22] MEDS: Calcium Carbonate 500 MG Tablet PO ×3 (07:51→17:17)
--- NOTE | 2022-09-22 10:18 | CASEMGMT ---
Social Work IDT met with patient and for care plan meeting. Discussed patient's progress in PT/OT/SN. Educated to [facility] insurance with NRD 09/23 with EDC 10/01 and continued stay is not guaranteed with each review. Pt's goal is to DC home with . Pt has 4 ROBIN home. Offered therapy training. SW will continue to follow for DC Planning. Jerilyn Sadler, OPTICAL COATING TECHNICIAN [employer]
[2022-09-22 15:22] VITALS: BP 128/76; PULSE 87; RESP 16; TEMP 35.9; O2SAT 96
[2022-09-22] MEDS: Atorvastatin Calcium 20 MG Tablet PO (20:42)
[2022-09-23] MEDS: Pantoprazole Sodium 20 MG Tablet PO (05:10)
[2022-09-23] MEDS: Fluoxetine HCl 40 MG CAPSULE PO (05:10)
[2022-09-23] MEDS: Acetaminophen 500 MG Tablet 1000 MG PO ×3 (05:10→22:08)
[2022-09-23] MEDS: Levothyroxine 75 MCG Tablet PO (05:10)
[2022-09-23] MEDS: Enoxaparin 40 MG/0.4 ML Syringe SC (05:10)
[2022-09-23] MEDS: Nystatin Powder 15gm Bottle 1 APPLIC TOPICAL ×2 (05:20→17:34)
[2022-09-23] MEDS: Calcium Carbonate 500 MG Tablet PO ×3 (08:37→17:34)
[2022-09-23] MEDS: oxyCODONE 5 MG Tablet PO ×2 (13:24→22:08)
[2022-09-23 14:47] VITALS: BP 133/64; PULSE 85; RESP 16; TEMP 36; O2SAT 96
[2022-09-23] MEDS: Senna/Docusate Sodium 1 Tablet 2 TABLET PO (17:35)
[2022-09-23] MEDS: Atorvastatin Calcium 20 MG Tablet PO (21:56)
[2022-09-24] MEDS: Acetaminophen 500 MG Tablet 1000 MG PO ×3 (05:24→19:38)
[2022-09-24] MEDS: Fluoxetine HCl 40 MG CAPSULE PO (05:26)
[2022-09-24] MEDS: Levothyroxine 75 MCG Tablet PO (05:26)
[2022-09-24] MEDS: oxyCODONE 5 MG Tablet PO (05:26)
[2022-09-24] MEDS: Enoxaparin 40 MG/0.4 ML Syringe SC (05:27)
[2022-09-24] MEDS: Nystatin Powder 15gm Bottle 1 APPLIC TOPICAL ×2 (05:27→17:39)
[2022-09-24] MEDS: Pantoprazole Sodium 20 MG Tablet PO (05:27)
[2022-09-24] MEDS: Senna/Docusate Sodium 1 Tablet 2 TABLET PO ×2 (05:27→17:39)
[2022-09-24] MEDS: Calcium Carbonate 500 MG Tablet PO ×3 (08:14→17:39)
--- NOTE | 2022-09-24 11:39 | RAD_ITS ---
INDICATION: s/p left hip nailing EXAMINATION/TECHNIQUE: X-RAY - XR Hip Unilateral with Pelvis when performed; 2-3 Views: AP pelvis with AP and lateral left femur COMPARISON: 09/07/2022 FINDINGS: PELVIC BONES: Antegrade femoral intramedullary adolfo with femoral neck interlocking adolfo with improved alignment of known intratrochanteric fracture. Mild displacement of lesser trochanter is unchanged. 2 distal femoral interlocking screws are present. No distal femur fracture. Normal left femoral head alignment within the acetabulum. Sacroiliac joints are unremarkable. No widening of the pubic symphysis. Normal right hip alignment with prior femoral internal fixation. SOFT TISSUES: Left lateral pelvic skin madeline and lateral distal femur skin madeline are placed. RAD/HIP, UNI W/ Pelvis 2-3 Views IMPRESSION: Internal fixation of left intratrochanteric fracture without evidence of early complication. Electronically Signed: Randy Sheehan MD at 4:39 EDT ,
--- NOTE | 2022-09-24 12:18 | PN.ORTHO_ITS ---
Subjective Subjective Patient seen and examined. Reports some soreness in her left hip. She is ambulating with a walker with physical therapy. Denies any fevers, chills, nausea vomiting, chest pain or shortness of breath. Objective Data Objective Data General - A&Ox3, NAD. VSS/AF. Able to stand at bedside unassisted. Left lower extremity -incisions are healing well with madeline in place. No erythema or drainage. SILT Sural, Saphenous, SPN, DPN, Tibial N. distributions. DP, PT 2+. BCR. DF, PF, EHL 5/5. No calf TTP. Vital Signs: Vital Signs Temp Pulse Resp BP Pulse Ox O2 Del Method O2 Flow Rate 96.8 F L 85 16 133/64 H 96 Room Air 1.5 09/23/22 14:47 09/23/22 14:47 09/23/22 14:47 09/23/22 14:47 09/23/22 14:47 09/23/22 14:47 09/10/22 16:47 Oxygen Flow Rate (L/min) 1.5 Oxygen Delivery Method Room Air Weight: 138 lb Body Mass Index (BMI) 26.9 Intake & Output: Intake and Output for Last 24 Hours 09/22/22 09/23/22 09/24/22 23:59 23:59 23:59 Intake Total 360 / 360 560 / 560 240 / 240 Balance 360 / 360 560 / 560 240 / 240 Lab / Micro Data 09/17/22 05:29 09/18/22 07:30 Micro: Microbiology 09/13/22 Unknown Stool Stool Occult Blood (YARITZA) - Final Assessment & Plan Assessment/Plan (1) S/P ORIF (open reduction internal fixation) fracture: PLAN: 2 weeks status post left femur CMN -X-rays ordered today left hip for postoperative evaluation -Continue mobilization with therapy -Weightbearing as tolerated left lower extremity -28 days anticoagulation prophylaxis recommended from my standpoint -Plan to follow-up 6 weeks postoperatively in the office with new x-rays. -Mcrae Helena to be removed by nursing staff, order placed today. Please not hesitate to call if any questions or concerns arise in the meantime.
--- NOTE | 2022-09-24 13:53 | NURSING ---
madeline removed from left upper leg incisions without incident. Patient tolerated well. Incisions open to air as ordered no drainage or redness
[2022-09-24 14:15] VITALS: BP 131/71; PULSE 54; RESP 15; TEMP 35.8; O2SAT 91
[2022-09-24] MEDS: Atorvastatin Calcium 20 MG Tablet PO (19:40)
[2022-09-24 19:47] VITALS: PULSE 84; RESP 16; O2SAT 98
[2022-09-25] MEDS: Nystatin Powder 15gm Bottle 1 APPLIC TOPICAL ×2 (04:37→18:04)
[2022-09-25] MEDS: oxyCODONE 5 MG Tablet PO ×2 (04:37→13:55)
[2022-09-25] MEDS: Fluoxetine HCl 40 MG CAPSULE PO (04:38)
[2022-09-25] MEDS: Pantoprazole Sodium 20 MG Tablet PO (04:38)
[2022-09-25] MEDS: Levothyroxine 75 MCG Tablet PO (04:38)
[2022-09-25] MEDS: Acetaminophen 500 MG Tablet 1000 MG PO ×3 (04:38→21:29)
[2022-09-25] MEDS: Enoxaparin 40 MG/0.4 ML Syringe SC (04:39)
[2022-09-25] MEDS: Senna/Docusate Sodium 1 Tablet 2 TABLET PO (04:39)
[2022-09-25] MEDS: Calcium Carbonate 500 MG Tablet PO ×3 (07:47→18:04)
[2022-09-25 07:48] LABS: Anion Gap 7 (5-15); BUN 18 mg/dL (7-18); BUN/Creat Ratio 26.4 RATIO (10-20); Calcium,Total 8.6 mg/dL (8.5-10.1); Chloride 110 mmol/L (98-107); Creatinine, Serum 0.68 mg/dL (0.55-1.02); EST Glomerular Filtration Rate 89 mL/min (>60); Est Glom Filt Rate - Afr Amer 108 mL/min (>60); Estimated Creatinine Clearance 35.45 ml/min; Glucose 93 mg/dL (74-106); Potassium 4.1 mmol/L (3.5-5.1); Sodium Level 142 mmol/L (136-145)
[2022-09-25 15:49] VITALS: BP 137/73; PULSE 87; RESP 16; TEMP 36.3; O2SAT 96
[2022-09-25] MEDS: Atorvastatin Calcium 20 MG Tablet PO (21:20)
[2022-09-26 06:33] LABS: Absolute Lymphocyte Count 1.63 X10^3/uL (0.83-4.51); Absolute Neutrophil Count 4.1 X10^3/uL (2.0-7.7); Basophil% 1.5 % (0-1); Eosinophil# 0.28 X10^3/uL; Eosinophils% 4.2 % (0-5); Hematocrit 35.3 % (37-47); Lymphocyte # 1.63 X10^3/ul (0.83-4.51); Lymphocyte % 24.5 % (19-41); Mean Corp Hgb Conc 31.2 g/dL (32-36); Mean Corpuscular Hgb 30.1 pg (27.0-32.0); Mean Corpuscular Volume 96.7 fL (81-99); Mean Platelet Vol. 9.3 fl (6.2-12.0); Monocyte# 0.56 X10^3/uL; Monocyte% 8.4 % (0-10); NRBC Flagged by Analyzer 0 % (0-5); Neutrophil # 4.07 X10^3/uL (2.7-7.7); Neutrophil % 61.1 % (47-70); Platelet Count 584 K/mm3 (150-450); RBC Distribution Width CV 16.8 % (11.6-14.6); RBC Distribution Width SD 59.7 fl (35.1-43.9); Red Blood Count 3.65 M/mm3 (4.2-5.4); White Blood Count 6.7 K/mm3 (4.4-11.0)
[2022-09-26] MEDS: Fluoxetine HCl 40 MG CAPSULE PO (06:38)
[2022-09-26] MEDS: oxyCODONE 5 MG Tablet PO ×3 (06:38→22:19)
[2022-09-26] MEDS: Levothyroxine 75 MCG Tablet PO (06:39)
[2022-09-26] MEDS: Pantoprazole Sodium 20 MG Tablet PO (06:39)
[2022-09-26] MEDS: Enoxaparin 40 MG/0.4 ML Syringe SC (06:40)
[2022-09-26] MEDS: Nystatin Powder 15gm Bottle 1 APPLIC TOPICAL ×2 (06:40→18:04)
[2022-09-26] MEDS: Acetaminophen 500 MG Tablet 1000 MG PO ×3 (06:42→21:12)
[2022-09-26] MEDS: Calcium Carbonate 500 MG Tablet PO ×3 (09:09→18:03)
[2022-09-26 16:00] VITALS: BP 148/77; PULSE 82; RESP 17; TEMP 36.4; O2SAT 96
[2022-09-26] MEDS: Atorvastatin Calcium 20 MG Tablet PO (21:12)
[2022-09-27] MEDS: Fluoxetine HCl 40 MG CAPSULE PO (04:49)
[2022-09-27] MEDS: Acetaminophen 500 MG Tablet 1000 MG PO ×3 (04:49→20:42)
[2022-09-27] MEDS: Levothyroxine 75 MCG Tablet PO (04:49)
[2022-09-27] MEDS: Senna/Docusate Sodium 1 Tablet 2 TABLET PO (04:49)
[2022-09-27] MEDS: Pantoprazole Sodium 20 MG Tablet PO (04:50)
[2022-09-27] MEDS: Alendronate Sodium 70 MG Tablet PO (04:50)
[2022-09-27] MEDS: Enoxaparin 40 MG/0.4 ML Syringe SC (04:50)
[2022-09-27] MEDS: Nystatin Powder 15gm Bottle 1 APPLIC TOPICAL ×2 (04:51→17:30)
[2022-09-27] MEDS: Calcium Carbonate 500 MG Tablet PO ×3 (07:53→17:28)
[2022-09-27] MEDS: oxyCODONE 5 MG Tablet PO (09:01)
[2022-09-27 13:48] VITALS: BP 121/73; PULSE 80; RESP 18; TEMP 36.6; O2SAT 93
--- NOTE | 2022-09-27 14:31 | NURSING ---
Offered BV covid booster, education about vaccine provided. Patient says she's unsure what to do. Asked if she wanted time to think about it and she said she did. Will check back later this week to see if she's made a decision.
[2022-09-27] MEDS: Atorvastatin Calcium 20 MG Tablet PO (20:42)
[2022-09-28] MEDS: oxyCODONE 5 MG Tablet PO ×2 (03:49→22:30)
[2022-09-28] MEDS: Nystatin Powder 15gm Bottle 1 APPLIC TOPICAL ×2 (05:19→17:25)
[2022-09-28] MEDS: Acetaminophen 500 MG Tablet 1000 MG PO ×3 (05:19→19:38)
[2022-09-28] MEDS: Senna/Docusate Sodium 1 Tablet 2 TABLET PO ×2 (05:19→17:24)
[2022-09-28] MEDS: Fluoxetine HCl 40 MG CAPSULE PO (05:19)
[2022-09-28] MEDS: Levothyroxine 75 MCG Tablet PO (05:19)
[2022-09-28] MEDS: Enoxaparin 40 MG/0.4 ML Syringe SC (05:19)
[2022-09-28] MEDS: Pantoprazole Sodium 20 MG Tablet PO (05:19)
[2022-09-28 08:20] VITALS: BMI 26.6
[2022-09-28] MEDS: Calcium Carbonate 500 MG Tablet PO ×3 (08:33→17:24)
--- NOTE | 2022-09-28 11:22 | CASEMGMT ---
Addendum entered by Jerilyn Sadler 09/29/22 13:24: SW spoke with and /pt is requesting outpatient therapy at [facility]. SW faxed referral to [facility] for PT/OT. Original Note: Social Work Insurance issued LCD 09/30, DC 10/01. SW spoke with pt and pt feels ready to DC home. SW phoned to update. agreeable to DC. SW educated to HHC vs OP therapy. prefers HHC. will visit pt this afternoon and can review HHC list. states pt has a walker and does not have any other DME needs. to transport. SW left printed list of skilled HHC agencies with quality and resource data via [employer] Guide in pt's room for to make selections. Plan: DC home with 10/01, HHC PT/OT DEJA AshW
[2022-09-28 12:49] VITALS: BP 129/76; PULSE 64; RESP 16; TEMP 36.6; O2SAT 98
[2022-09-28] MEDS: Atorvastatin Calcium 20 MG Tablet PO (19:38)
[2022-09-28 19:43] VITALS: PULSE 95; RESP 16; O2SAT 100
--- NOTE | 2022-09-28 21:21 | DS.PCM_ITS ---
Providers Date of Admission: 09/10/22 Primary Care Physician: Dr. Jose Carlos Pompa MD Reason For Visit: left hip fracture Diagnosis Discharge Diagnosis (1) S/P ORIF (open reduction internal fixation) fracture: Status: Acute Code(s): Z98.890 - Other specified postprocedural states; Z87.81 - Personal history of (healed) traumatic fracture Medications at Discharge Home Medications alendronate 70 mg tablet 70 mg PO UD osteoporosis 09/07/22 atorvastatin 20 mg tablet 20 mg PO QHS HLD 09/07/22 fluoxetine 40 mg capsule 40 mg PO DAILY depression 09/07/22 levothyroxine 75 mcg tablet 75 mcg PO DAILY thyroid 09/07/22 omeprazole 20 mg capsule,delayed release 20 mg PO DAILY GERD 09/07/22 calcium carbonate 200 mg calcium (500 mg) chewable tablet 500 mg (2.5 x 200 mg calcium (500 mg)) PO TIDCM supplement #30 tabs 09/10/22 oxycodone 5 mg tablet 5 mg PO Q6H PRN PRN Pain Score 1-10 7 days #28 tabs 09/28/22 sennosides 8.6 mg-docusate sodium 50 mg tablet (Stool Softener-Stimulant Laxative) 2 tab PO BID 30 days #120 tabs 09/28/22 Hospital Course Operations - (See below.) Procedures None Summary of Care Provided Minutes Spent on Discharge: 35 Hospital Course: 76 year old female with below past medical history hospitalized for left hip fracture, underwent intramedullary nail left femur 09/08/2022, complicated by urinary tract infection, admitted to TCU with debility, here for rehabilitation, strengthening, prior to discharge home with . Discharge home with 10/01/2022, Home Health Care PT/OT. Physical Exam Const alert General Appearance: cooperative HEENT normocephalic Eyes PERRL and EOMs intact bilaterally Neck supple, no JVD and no carotid bruits Resp normal respiratory effort, normal air movement and clear to auscultation bilaterally Cardio regular rate and regular rhythm GI normal to inspection, nondistended, normoactive bowel sounds, non-tender and non-distended Extremity normal capillary refill General Extremity: Negative for edema Skin no rashes or lesions noted General Skin Exam: no breakdown Psych affect normal Appearance: appropriate Weight / BMI Weight Weight: 61.507 kg Body Mass Index (BMI) 26.6 ABG / Lab / Microbiology Data 09/26/22 06:26 09/25/22 06:00 Microbiology: Microbiology 09/13/22 Unknown Stool Stool Occult Blood (YARITZA) - Final D/C Instructions Discharge Diet: No restrictions Discharge Activity: Return to Normal Activity, May Shower and Use Walker Weight Bearing Status: Weight bearing as tolerated Call your doctor if you observe: Fever of 101 or Higher, Inability to urinate, Inability to have a bowel movement, Shortness of breath, Dizziness, Fainting spells, Swelling in the ankles, Chest pain and Uncontrolled pain Additional Instructions: Discharge home with 10/01/2022, Home Health Care PT/OT. Please Follow Up With: Saúl Manriquez DO When: As scheduled. Meaningful Use Info Meaningful Use Diagnoses (Choose all that apply): None applicable Discharge Plan Admission Admit Date/Time: 09/10/22 15:30 Primary Reason for Your Visit: Debility. Attending Provider: Odilon Rodríguez Chi Primary Care Provider: Jose Carlos Pompa Instructions Additional Instructions / Restrictions: Discharge home with 10/01/2022, Home Health Care PT/OT. Discharge Orders/Prescriptions Prescriptions: New sennosides-docusate sodium [Stool Softener-Stimulant Laxat] 8.6-50 mg Tablet 2 tab PO BID 30 Days Qty: 120 0RF oxycodone 5 mg Tablet 5 mg PO Q6H PRN PRN (Reason: Pain Score 1-10) 7 Days Qty: 28 0RF Continued fluoxetine 40 mg capsule 40 mg PO DAILY atorvastatin 20 mg tablet 20 mg PO QHS alendronate 70 mg tablet 70 mg PO UD Rx Instructions: weekly. omeprazole 20 mg capsule,delayed release(DR/EC) 20 mg PO DAILY levothyroxine 75 mcg tablet 75 mcg PO DAILY calcium carbonate 200 mg calcium (500 mg) Tablet,Chewable 500 mg PO TIDCM Qty: 30 0RF Discontinued enoxaparin 40 mg/0.4 mL Syringe 40 mg subcut 0600 Qty: 4 0RF Rx Instructions: start 09/12/22 melatonin 3 mg Tablet 3 mg PO QHS PRN PRN (Reason: Insomnia) Qty: 0 0RF nystatin [Nyamyc] 100,000 unit/gram Powder 1 applic topical BID Qty: 0 0RF Protocol: *Topical Application Instructions APPLICATION INSTRUCTIONS: under breasts oxycodone 5 mg Tablet 5 mg PO Q6H PRN (Reason: pain) 3 Days Qty: 12 0RF sennosides-docusate sodium [Stool Softener-Stimulant Laxat] 8.6-50 mg Tablet 2 tab PO BID Qty: 0 0RF Referrals / Follow Up: Jose Carlos Pompa MD [Primary Care Provider] - 10/04/22 11:00 am (will see AMI Gagnon Please arrive by 10:45a) Disposition Disposition (needs filled in before D/C Order can be placed): [facility]
[2022-09-28] MEDS: MELATONIN 3 MG TABLET PO (22:30)
--- NOTE | 2022-09-29 04:06 | NURSING ---
While doing rounds, patient noted to be awake with nosebleed. Stated that it has been happening on and off the last couple of days. Encouraged her to keep applying pressure. Will continue to monitor.
[2022-09-29] MEDS: oxyCODONE 5 MG Tablet PO ×3 (04:34→22:29)
[2022-09-29] MEDS: Acetaminophen 500 MG Tablet 1000 MG PO ×3 (04:35→22:12)
[2022-09-29] MEDS: Senna/Docusate Sodium 1 Tablet 2 TABLET PO ×2 (04:35→18:06)
[2022-09-29] MEDS: Fluoxetine HCl 40 MG CAPSULE PO (04:35)
[2022-09-29] MEDS: Levothyroxine 75 MCG Tablet PO (04:35)
[2022-09-29] MEDS: Pantoprazole Sodium 20 MG Tablet PO (04:36)
[2022-09-29] MEDS: Nystatin Powder 15gm Bottle 1 APPLIC TOPICAL ×2 (04:37→18:06)
[2022-09-29] MEDS: Calcium Carbonate 500 MG Tablet PO ×3 (08:51→18:06)
[2022-09-29 15:54] VITALS: BP 125/69; PULSE 87; RESP 18; TEMP 35.8; O2SAT 92
[2022-09-29] MEDS: Atorvastatin Calcium 20 MG Tablet PO (22:25)
[2022-09-29] MEDS: MELATONIN 3 MG TABLET PO (22:29)
[2022-09-30] MEDS: Acetaminophen 500 MG Tablet 1000 MG PO ×3 (04:59→20:27)
[2022-09-30] MEDS: Pantoprazole Sodium 20 MG Tablet PO (05:00)
[2022-09-30] MEDS: Fluoxetine HCl 40 MG CAPSULE PO (05:00)
[2022-09-30] MEDS: Nystatin Powder 15gm Bottle 1 APPLIC TOPICAL ×2 (05:00→17:55)
[2022-09-30] MEDS: Senna/Docusate Sodium 1 Tablet 2 TABLET PO (05:00)
[2022-09-30] MEDS: Levothyroxine 75 MCG Tablet PO (05:00)
[2022-09-30] MEDS: Calcium Carbonate 500 MG Tablet PO ×3 (08:30→17:55)
[2022-09-30] MEDS: oxyCODONE 5 MG Tablet PO (09:59)
--- NOTE | 2022-09-30 10:55 | CASEMGMT ---
Social Work BIMS () and PHQ-9 (11/07) completed for MDS assessment. SW noted pt's score increased by one. remains positive for feeling down, trouble sleeping and poor appetite. SW left written communication for Dr for possible start of medication. Jerilyn Sadler, MOTOR EQUIPMENT LIEUTENANT G[employer]NER'S MATE M
[2022-09-30 14:24] VITALS: BP 150/69; PULSE 78; RESP 16; TEMP 35.9; O2SAT 92
[2022-09-30] MEDS: Atorvastatin Calcium 20 MG Tablet PO (20:27)
[2022-10-01 05:20] VITALS: BP 136/75; PULSE 80; RESP 16; TEMP 36.4; O2SAT 94
[2022-10-01] MEDS: Fluoxetine HCl 40 MG CAPSULE PO (05:25)
[2022-10-01] MEDS: Pantoprazole Sodium 20 MG Tablet PO (05:25)
[2022-10-01] MEDS: Senna/Docusate Sodium 1 Tablet 2 TABLET PO (05:25)
[2022-10-01] MEDS: Levothyroxine 75 MCG Tablet PO (05:26)
[2022-10-01] MEDS: Acetaminophen 500 MG Tablet 1000 MG PO (05:26)
[2022-10-01] MEDS: Nystatin Powder 15gm Bottle 1 APPLIC TOPICAL (06:24)
[2022-10-01] MEDS: Calcium Carbonate 500 MG Tablet PO (08:48)
[2022-10-01 09:50] VITALS: BP 130/70; PULSE 83; RESP 16; TEMP 36.8; O2SAT 99
== END 2022-10-01 11:18 | disposition home health service (06) | DRG 560 ==
PROVIDERS: Internal Medicine; Admitting Provider Family Medicine Geriatric Medicine; PCP Family Medicine; Visit Provider Family Medicine Geriatric Medicine
DX: S72.142D Displaced intertrochanteric fracture of left femur, subsequent encounter for closed fracture with routine healing (principal); N30.01 Acute cystitis with hematuria; I48.0 Paroxysmal atrial fibrillation; E78.5 Hyperlipidemia, unspecified; G47.30 Sleep apnea, unspecified; I10 Essential (primary) hypertension; W19.XXXD Unspecified fall, subsequent encounter; K21.9 Gastro-esophageal reflux disease without esophagitis; M79.7 Fibromyalgia; E03.9 Hypothyroidism, unspecified; F32.A Depression, unspecified; F41.9 Anxiety disorder, unspecified; B96.20 Unspecified Escherichia coli [E. coli] as the cause of diseases classified elsewhere; Z79.01 Long term (current) use of anticoagulants; Z79.83 Long term (current) use of bisphosphonates; Z79.899 Other long term (current) drug therapy; Z79.890 Hormone replacement therapy
CPT/HCPCS: 36415; 73502; 80048; 80076; 81001; 82274; 82607; 82728; 82746; 83540; 83550; 83735; 84100; 85025; 97110; 97116; 97163; 97166; 97530; 97535; 97802; J1756; J7050; J7120; A4216; J2916

== ENCOUNTER → 2022-11-11 | Outpatient (CLI) | payer MEDICARE, SELFPAY ==
--- NOTE | 2022-11-11 12:26 | BD_ITS ---
STUDY: DUAL ENERGY X-RAY ABSORPTIOMETRY / DXA REASON FOR EXAM: Female, 77 years old. 733.00OsteoporosisBONE DENSITY REASON FOR EXAM TECHNIQUE: Bone Mineral Density (BMD) measurements of lumbar spine and left forearm were obtained. COMPARISON: None. FINDINGS: Lumbar Spine (L1-L4): g/cm2 (0.704) / T-score (-3.1) / Z-score (-0.7) Findings are suggestive of osteoporosis with a high fracture risk. Left Forearm: g/cm2 (0.378) / T-score (-3.7) / Z-score (-1.3) BD/Dexa Bone Density Study IMPRESSION: The patient is considered osteoporotic as outlined below according to World Mitchell Organization (WHO) criteria with a high fracture risk. Reference Information: The T-score is the number of standard deviations above or below the standard which is normal for young adults at their peak bone mineral density. The World Health Organization (WHO) interprets the T-scores as follows: Above -1 Normal bone density Between -1 and -2.5 Osteopenia Equal to / or below -2.5 Osteoporosis As a practical clinical guideline, osteopenia may be graded as follows: Mild -1 through -1.5 Moderate -1.6 through -2.0 Severe -2.1 through -2.4 The Z-score is the number of standard deviations above or below age-matched controls. A Z-score of less than -1.5 would be considered abnormal. References: 1. NIH Osteoporosis and Related Bone Diseases www osteo.org 2. International Society for Clinical Densitometry www iscd.org 3. National Osteoporosis Foundation www nof.org Electronically Signed: Ha Stephen MD at 11:11 EDT ,
== END | disposition home or self-care (01) ==
LOC: OPBD 12:08
PROVIDERS: PCP Family Medicine; Referring Provider Student in an Organized Health Care Education/Training Program; Visit Provider Student in an Organized Health Care Education/Training Program
DX: M85.80 Other specified disorders of bone density and structure, unspecified site (principal); M81.0 Age-related osteoporosis without current pathological fracture
CPT/HCPCS: 77080

== ENCOUNTER 2022-12-01 13:30 | Outpatient (RCR) | payer MEDICARE, SELFPAY ==
--- NOTE | 2022-10-05 12:48 | HP.PTEVAL ---
Patient's Visit Information Visit Information Visit Information: MICAELA COCHRAN is a 76 year old F referred to Physical Therapy by Dr. Odilon Rodríguez MD with a diagnosis of Left Hip Fracture. Date of Evaluation: 10/05/22 Physical Therapist: Chhaya Martinez DPT Visit Plan Frequency: 2-3x /Week Duration: 4 Weeks Plan: Focus on functional mobility- gait, LE strength, endurance. HEP Reviewed from TCU- educated on importance of movement and NOT sitting all day Subjective Subjective: Patient reports that she broke her left hip- she just got out of TCU on Tuesday and they sent her home and to outpatient therapy. She fell at home- she was trying to be careful but she took a wrong step. She is not very stable so before she fell she was using a cane and her and is now using a rollator. She has three stairs to enter but their samaritan is putting a ramp onto the home. She is able to get in/out but its hard. She feels a little more stiff since she got home. Single story once she is inside. She has had a lot of apts since she got out. Before the fall she was up more during the day but sat during the evening. Prior to the fall she was doing all of her own dressing, bathing, cooking and cleaning. She is now having her help her with all of her ADL's. She is sleeping in her bed- she is getting in/out with assistance from her . Sleep: wakes her up some but better than when she was in the hospital. Worst in the last 48 hours: 10/10 Agg: movement. She is not moving as much as she was in the hospital. Eases: pain medication. Pain is located in the thigh and its described as achy. She reports that she tries to do the exercises. PMHx/Meds: see d/c notes from TCU. Goals are to get back to walking Objective Objective: Posture: FH, RS- can correct with verbal and tactile cues but does not maintain Gait: antalgic- decreased stance on the left LE with step to gait pattern- FWW- 150 feet with SBA for safety HR: able with UE A TR: unable in standing but able in sitting Balance: weight shift but unable to SLS ROM: WFL in all planes Strength: Core: poor, Hip: Flexion: 3+/5, Extn: 4-/5, Abd: 4/5, Add: 4/5 Knee: 4/5, Ankle: 4/5 Flex: HS: severe, Gastroc: mod Balance/Special Test Scores Lower Extremity Functional Score: 6 30 Second Chair Rise Test Seconds: 7 Goals Goal 1:: Patient will be I with HEP and progression Goal Time Frame: 4-6 Weeks Goal 2:: Patient will ambulate >300 feet with LRD Goal Time Frame: 4-6 Weeks Goal 3:: Patient will sit to stand 10x in 30 sec Goal Time Frame: 4-6 Weeks Goal 4:: Patient will report 80% improvement Goal Time Frame: 4-6 Weeks Rehabilitation Potential Physical Therapy Diagnosis: Patient presents with hypomobility s/p left hip fracture- she has decreased LE strength, core strength/stabilization, flex and muscular endurance leading to abnormal gait and decreased ability to perform ADL's. Rehabilitation Potential: Fair Anticipated Interventions Patient/Client Instruction: Educate patient on: Benefits of Fitness Program Therapeutic Exercise to Include: Strength training, Endurance training, Balance training, Coordination, Agility training, Body mechanics, Postural training, Flexibilty training, Gait and locomotor training, Neuromotor development, Dynamic Lumbar Stabilization and Scapular Strength/Stabilization For the Purpose of:: To improve muscle performance and motor function Cryotherapy (ice pack, ice massage): Yes Thermo therapy (hot pack): Yes Text: Thank you for the opportunity to evaluate your patient. For Medicare and Medicare HMO plans, please review the plan of care and approve it. It will need to be FAXED BACK to us at [phone] for Medicare purposes. For Medicare only, by signing this I certify the plan of care. Please let me know if there are questions or concerns regarding this plan of care. Physician Signature: Date:
--- NOTE | 2022-12-01 14:17 | HP.PTDCSUM ---
Discharge Summary D/C summary: It has been my pleasure to treat MICAELA COCHRAN referred by Dr. Odilon Rodríguez MD, with the diagnosis of Left Hip Fracture for a total of 17 visit(s). Discharge Date: Please see the following information for a summary of their discharge status. Subjective Subjective: Patient reports that she was using a walker prior to the fall- she is helping make the meals again. Patient reports that she feels that she is back to her baseline. She has intermittent pain in the leg abdi when she sits in the car. She goes back to see the MD in Dec or January- and she also has a primary care doctor too. She had a bone density scan. She feels that she is ready to continue the exercises at home. Pain Left hip: Pain Intensity (Out of 10): 2 Overall Improvement % Improvement: 100 Objective Objective/Function: Posture: FH, RS- can correct with verbal and tactile cues but does not maintain Gait: slightly antalgic- rollator- good zion- safe- >300 feet HR/TR: able with UE A Balance: weight shift but unable to SLS ROM: WFL in all planes Strength: Core: fair, Hip: Flexion: 4/5, Extn: 4/5, Abd: 4+/5, Add: 4+/5 Knee: 4+/5, Ankle: 4+/5 Flex: HS: severe, Gastroc: mod Goals Goal 1:: Patient will be I with HEP and progression Goal Progress: Goal Met Goal 2:: Patient will ambulate >300 feet with LRD Goal Progress: Goal Met Goal 3:: Patient will sit to stand 10x in 30 sec Goal Progress: Progressing Goal 4:: Patient will report 80% improvement Goal Progress: Goal Met Plan Plan: 12/01/22: Discharge to I HEP- encouraged her to continue HEP. 11/03/22: Continue 2x a week 4 weeks. Focus on functional mobility- gait, LE strength, endurance. HEP Reviewed from TCU- educated on importance of movement and NOT sitting all day D/C Information d/c sentence: If there are questions or concerns regarding this patient's physical therapy, please feel free to call me at [phone]. Thank you for the referral of this patient. Sincerely, Chhaya Martinez, DPT Balance/Gait/Functional tests Balance/Special Test Scores Lower Extremity Functional Score: 28 30 Second Chair Rise Test Seconds: 7 Improvement % Improvement: 100
== END 2022-12-01 14:28 | disposition home or self-care (01) ==
LOC: PT 13:30
PROVIDERS: PCP Family Medicine; Referring Provider Family Medicine Geriatric Medicine; Visit Provider Family Medicine Geriatric Medicine
DX: S72.002D Fracture of unspecified part of neck of left femur, subsequent encounter for closed fracture with routine healing (principal)
CPT/HCPCS: 97110; 97162; 97164

== ENCOUNTER 2023-05-25 12:48 | Emergency (ER) | payer MEDICARE, SELFPAY ==
[2023-05-25] VITALS (20 sets, daily range): BP systolic 149–158; BP diastolic 78–82; PULSE 85–97; RESP 12–32; TEMP 36–36.8; O2SAT 95–100; BMI 27.7
--- NOTE | 2023-05-25 13:10 | EKG12_ITS ---
Test Reason : DIZZINESS Blood Pressure : / mmHG Vent. Rate : 088 BPM Atrial Rate : 088 BPM P-R Int : 150 ms QRS Dur : 070 ms QT Int : 388 ms P-R-T Axes : 052 -07 027 degrees QTc Int : 469 ms Normal sinus rhythm Nonspecific ST abnormality Abnormal ECG BASELINE ARTIFACT Confirmed by Renaldo Ruiz ([id number]), editor trade journal ANA MARIA SOTO ([id number]) on 05/27/2023 2:04:50 PM Referred By: Confirmed By:Renaldo Ruiz
--- NOTE | 2023-05-25 13:10 | EDS_ITS ---
HPI History of Present Illness Chief Complaint: Dizziness Informant: patient and spouse/S.O. Onset/Context/Timing Onset: Today and Yesterday Context: Gradual Onset Timing: Continuous Current Severity: Mild Maximum Severity: Mild Narrative Narrative: 77-year-old female history of anemia, hypertension and A-fib. No prior stroke or mini stroke. No history of vertigo. Says since yesterday she has had at times room spinning dizziness. Denies any specific headaches. No falls or head trauma. Does not believe she is on any blood thinners. She has chronic upper and lower extremity weakness from a underlying neurological condition. She was diagnosed by neurologist at [facility] 5 to 10 years ago. But denies any new changes to her arms or legs. No worsening weakness or numbness. Prior similar symptoms: No Recent Illness/Hospitalization: No PFSH PFS Medical History Anxiety and depression Chronic anemia Closed right hip fracture Fibromyalgia GERD (gastroesophageal reflux disease) HLD (hyperlipidemia) Hypertension Hypothyroid Migraines Non-smoker Obesity Osteoporosis PAF (paroxysmal atrial fibrillation) Paroxysmal atrial fibrillation Sleep apnea Syncope T12 compression fracture Home Medications alendronate 70 mg tablet 70 mg PO UD osteoporosis 09/07/22 [History Last Taken Unknown] atorvastatin 20 mg tablet 20 mg PO QHS HLD 09/07/22 [History Last Taken 09/09/22] fluoxetine 40 mg capsule 40 mg PO DAILY depression 09/07/22 [History Last Taken 09/10/22] levothyroxine 75 mcg tablet 75 mcg PO DAILY thyroid 09/07/22 [History Last Taken 09/10/22] omeprazole 20 mg capsule,delayed release 20 mg PO DAILY GERD 09/07/22 [History Last Taken 09/10/22] calcium carbonate 200 mg calcium (500 mg) chewable tablet 500 mg (2.5 x 200 mg calcium (500 mg)) PO TIDCM supplement #30 tabs 09/10/22 [Rx Last Taken 09/10/22] oxycodone 5 mg tablet 5 mg PO Q6H PRN PRN Pain Score 1-10 7 days #28 tabs 09/28/22 [Rx Last Taken Unknown] sennosides 8.6 mg-docusate sodium 50 mg tablet (Stool Softener-Stimulant Laxative) 2 tab PO BID 30 days #120 tabs 09/28/22 [Rx Last Taken Unknown] meclizine 25 mg chewable tablet (Antivert) 25 mg PO TID PRN dizziness #14 tabs 05/25/23 [Rx Last Taken Unknown] Allergy/AdvReac Type Severity Reaction Status Date / Time codeine Allergy Unknown Verified 05/25/23 12:49 codeine phosphate AdvReac Unknown Verified 05/25/23 12:49 [From Tylenol-Codeine #3] nabumetone [From Relafen] AdvReac Unknown Verified 05/25/23 12:49 naproxen AdvReac Unknown Verified 05/25/23 12:49 Family History Mother Cancer Father Cancer Surgical History H/O ovarian cystectomy History of section History of total right hip replacement S/P kyphoplasty S/P ORIF (open reduction internal fixation) fracture S/P ORIF (open reduction internal fixation) fracture Social History household members: spouse Smoking Status: Never smoker alcohol intake: never substance use type: does not use ROS ROS ED ROS Narrative Dizziness. Otherwise denies recent illness. Review of Systems ROS Unobtainable: Denies due to encephalopathy Constitutional Constitutional ED: Denies chills or fever(s) Eyes Eyes: Denies blurry vision ENT ENT ED: Denies ear pain Cardiovascular Cardiovascular: Denies chest pain or palpitations Respiratory/Chest Respiratory/Chest: Denies cough or dyspnea Gastrointestinal Gastrointestinal: Denies abdominal pain, diarrhea, nausea or vomiting Genitourinary Genitourinary ED: Denies dysuria or hematuria Musculoskeletal Musculoskeletal: Denies arthralgias Integumentary Denies abscess Neurologic Neurologic: Denies headache(s) Psychiatric Psychiatric: Denies anxiety or depression Endocrine Endocrinology: Denies cold intolerance Hematologic/Lymphatic Hematologic/Lymphatic: Reports none Allergic/Immunologic Allergic/Immunologic ED: Denies mouth swelling, tongue swelling or urticaria EXAM Physical Exam Narrative Exam Narrative: Well-appearing 77-year-old female. Vital signs stable afebrile. Pulse ox 100% on room air no signs hypoxia. H EENT exam pupils are reactive light extra motions are intact. No facial droop. Normal speech. No trauma to her head or scalp. Bilateral cerumen in both ear canals. Neck nontender. Lungs clear. Heart regular rhythm rate about 95 no murmur. Chest wall and ribs nontender. Abdomen soft nontender. Normal bowel sounds no peritoneal signs. Moving all 4 extremities. 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 Dorsi plantarflexion intact. Fingertip to nose within normal limits. She can raise either leg off the bed. She has generalized upper and lower extremity weakness but it is her baseline. Const Vital Signs: 05/25/23 12:49 05/25/23 14:10 05/25/23 14:20 Temperature 96.8 F L Temperature Source Temporal Pulse Rate 96 93 88 Respiratory Rate 16 32 H 16 Blood Pressure 153/78 H Blood Pressure Mean 103 Pulse Ox 100 Oxygen Delivery Method Room Air 05/25/23 14:30 05/25/23 14:40 05/25/23 14:50 Temperature Temperature Source Pulse Rate 90 88 91 Respiratory Rate 17 20 H 17 Blood Pressure Blood Pressure Mean Pulse Ox Oxygen Delivery Method 05/25/23 15:00 05/25/23 15:10 05/25/23 15:20 Temperature Temperature Source Pulse Rate 92 94 97 Respiratory Rate 15 21 H 32 H Blood Pressure 158/79 H Blood Pressure Mean 103 Pulse Ox Oxygen Delivery Method Positive well nourished and well developed; Negative for obese, cachectic, contractures or unkempt General Appearance ED: well developed and NAD; Negative for unkempt, cachectic, contractures, cyanotic, diaphoretic or pallor Nutritional Appearance: Negative for cachectic or obese HEENT Reports moist mucous membranes; Denies TM's clear or dry mucous membranes HEENT Narrative: Bilateral earwax. Negative for trauma or tenderness Tympanic Membrane ED: Negative for TM's clear Mouth ED: No dry mucous membranes Mouth: No dry mucous membranes Eyes PERRL and EOMs intact bilaterally General Eye ED: Negative for pale conjunctiva, scleral icterus or other Neck no lymphadenopathy, supple and no JVD General: Negative for tenderness Lymph Lymphatic: Negative for other Chest Wall inspection of chest normal and palpation of chest normal Chest: Negative for other Resp normal respiratory effort and clear to auscultation bilaterally Effort and Inspection: Negative for retractions Auscultation: Negative for rales, rhonchi or wheezes Cardio regular rate, regular rhythm, S1 normal heart sound, S2 normal heart sound and no murmurs Palpation: Negative for palpable S3 Rate: Negative for bradycardia Rhythm: Negative for abnormal rhythm GI normal to inspection, nondistended, normoactive bowel sounds, non-tender, non- distended and no masses Inspection: Negative for abdominal distention Auscultation: normoactive bowel sounds Palpation: soft; Negative for tender or guarding Bladder / Kidney Exam: No other Back/Spine no CVA tenderness General Back: Negative for CVA tenderness Cervical Spine: Negative for cervical spine tenderness Thoracic Spine / Upper Back: Negative for thoracic spinal tenderness Lumbar Spine / Lower Back: Negative for lumbar spinal tenderness Extremity normal to inspection General Extremety ED: Negative for edema or tenderness General Extremity: Negative for edema Neuro oriented x3 and CN's II-XII intact bilaterally Sensorium / Orientation: alert; Negative for orientation impaired, lethargic or stuporous Motor Exam: strength 5/5 throughout Psych mental status grossly normal Appearance: Negative for unkempt Attitude: No agitated Mood & Affect: Negative for depressed, anxious or tearful Skin no rashes or lesions noted and no wounds General Skin Exam: elasticity normal; Negative for jaundice or pallor Lesions: No lesion noted Rashes: No rashes noted Trauma: Negative for abrasion Wounds: Negative for wounds noted MDM MDM MDM Narrative Medical decision making narrative: 77-year-old female with room spinning dizziness. Exam is basically unremarkable. Negative Hallpike. She does have bilateral cerumen impactions. CAT scan and labs are pending. Repeat exam at 3:18 PM patient doing well. No significant change. Awaiting ears to be irrigated. Again negative Hallpike. Normal neurologic exam. We have discussed her test results. Nurses are going to irrigate her ears. She will be checked out to the afternoon physician. I have written up ongoing instructions and a prescription for Antivert to be treated as vertigo. History & Record Review Discussion w/independent historian: Patient Additional record(s) reviewed:: Prior inpatient record, Prior outpatient record, Prior ED visit, Prior labs and No prior records Lab Data Attestation: I reviewed the patient's lab results. Lab results narrative: CBC is unremarkable with a white count of 7. H&H 12 and 39. Platelets 301. Chemistries show a gap of 9. BUN 25 creatinine 0.7. Glucose 84. Labs: Laboratory Results - last 24 hr 05/25/23 13:51 WBC 7.4 RBC 4.06 L Hgb 12.5 Hct 39.2 MCV 96.6 MCH 30.8 MCHC 31.9 L RDW Std Deviation 43.7 RDW Coeff of Serafin 12.3 Plt Count 301 MPV 9.8 Immature Gran % (Auto) 0.300 Neut % (Auto) 57.4 Lymph % (Auto) 25.8 Sheridan % (Auto) 9.6 Eos % (Auto) 5.8 H Baso % (Auto) 1.1 H Absolute Neuts (auto) 4.2 Absolute Lymphs (auto) 1.91 Nucleated RBC % 0 Sodium 142 Potassium 4.0 Chloride 110 H Carbon Dioxide 23.0 Anion Gap 9 BUN 25 H Creatinine 0.76 Estim Creat Clear Calc 50.10 Est GFR (MDRD) Af Amer 96 Est GFR (MDRD) Non-Af 79 BUN/Creatinine Ratio 33.0 H Glucose 84 Calcium 9.0 Radiography Diagnostic Testing: Clinical Impression(s) from Imaging Studies Brain CT 05/25/23 14:02 IMPRESSION: Chronic involutional changes of the brain. Electronically Signed: Ha Stephen MD at 14:20 EDT , Rhythm Strip Rhythm Strip: Sinus Rhythm Rate: 88 Ectopy: None EKG Initial EKG: Attestation: I personally reviewed and interpreted this EKG as follows: Interpretation: Sinus Rhythm and No Acute Injury Pattern Comments: Normal sinus rhythm rate 88 no acute signs of DC, ischemia or dysrhythmia. Discharge Plan Triage Chief Complaint: Dizziness ED Provider: Carroll Weaver Dx/Rx/DC Orders Clinical Impression: Dizziness, Vertigo Instructions: ED Vertigo, Unspecified Prescriptions: New meclizine [Antivert] 25 mg tablet,chewable 25 mg PO TID PRN (Reason: dizziness) Qty: 14 0RF No Action fluoxetine 40 mg capsule 40 mg PO DAILY atorvastatin 20 mg tablet 20 mg PO QHS alendronate 70 mg tablet 70 mg PO UD Rx Instructions: weekly. omeprazole 20 mg capsule,delayed release(DR/EC) 20 mg PO DAILY levothyroxine 75 mcg tablet 75 mcg PO DAILY calcium carbonate 200 mg calcium (500 mg) Tablet,Chewable 500 mg PO TIDCM Qty: 30 0RF sennosides-docusate sodium [Stool Softener-Stimulant Laxat] 8.6-50 mg Tablet 2 tab PO BID 30 Days Qty: 120 0RF oxycodone 5 mg Tablet 5 mg PO Q6H PRN PRN (Reason: Pain Score 1-10) 7 Days Qty: 28 0RF Primary Care Provider: Jose Carlos Pompa Referrals: Jose Carlos Pompa MD [Primary Care Provider] - 3-5 Days Activity Restrictions/Additional Instructions: This may be secondary to vertigo which is where your balance center is off. You can use Antivert to help improve those symptoms. You can use it up to 3 times a day as needed. If you do not need it you need to take it at all. If not improving follow-up your primary care physician. Disposition Disposition: Home, Self Care
--- NOTE | 2023-05-25 14:02 | CT_ITS ---
STUDY: CT BRAIN WITHOUT CONTRAST REASON FOR EXAM: Female, 77 years old. Dizziness RADIATION DOSAGE (If Supplied By Facility): CTDIvol = ( 44.99 ) mGy, DLP = ( 779.24 ) mGycm TECHNIQUE: Transaxial CT imaging of the brain was performed without administration of intravenous contrast material. Individualized dose optimization techniques were used for this CT. COMPARISON: Comparison is made with prior study October 27, 2012. FINDINGS: Normal soft tissue structures. Normal calvarium. There is mild cerebral atrophy with widening of the extra-axial spaces and ventricular dilatation. There are areas of decreased attenuation within the white matter tracts of the supratentorial brain, consistent with microvascular disease changes. There are small punctate calcifications of the basal ganglia which are seen in the aging brain as a normal variant. Normal brainstem. Normal cerebellum. There is no intracranial hemorrhage. There are no findings of an acute ischemic infarction. Normal visualized paranasal sinuses. CT/Brain/Head without Contrast IMPRESSION: Chronic involutional changes of the brain. Electronically Signed: Ha Stephen MD at 14:20 EDT ,
[2023-05-25 14:05] LABS: Absolute Lymphocyte Count 1.91 X10^3/uL (0.83-4.51); Absolute Neutrophil Count 4.2 X10^3/uL (2.0-7.7); Basophil# 0.08 X10^3/uL; Basophil% 1.1 % (0-1); Eosinophil# 0.43 X10^3/uL; Eosinophils% 5.8 % (0-5); Hematocrit 39.2 % (37-47); Hemoglobin 12.5 g/dL (12.0-15.0); Lymphocyte # 1.91 X10^3/ul (0.83-4.51); Lymphocyte % 25.8 % (19-41); Mean Corp Hgb Conc 31.9 g/dL (32-36); Mean Corpuscular Hgb 30.8 pg (27.0-32.0); Mean Corpuscular Volume 96.6 fL (81-99); Mean Platelet Vol. 9.8 fl (6.2-12.0); Monocyte# 0.71 X10^3/uL; Monocyte% 9.6 % (0-10); NRBC Flagged by Analyzer 0 % (0-5); Neutrophil # 4.24 X10^3/uL (2.7-7.7); Neutrophil % 57.4 % (47-70); Platelet Count 301 K/mm3 (150-450); RBC Distribution Width CV 12.3 % (11.6-14.6); RBC Distribution Width SD 43.7 fl (35.1-43.9); Red Blood Count 4.06 M/mm3 (4.2-5.4); White Blood Count 7.4 K/mm3 (4.4-11.0)
[2023-05-25 14:18] LABS: Anion Gap 9 (5-15); BUN 25 mg/dL (7-18); Chloride 110 mmol/L (98-107); Creatinine, Serum 0.76 mg/dL (0.55-1.02); EST Glomerular Filtration Rate 79 mL/min (>60); Est Glom Filt Rate - Afr Amer 96 mL/min (>60); Glucose 84 mg/dL (74-106); Sodium Level 142 mmol/L (136-145)
[2023-05-25] MEDS: Carbamide Peroxide 15 ML Bottle 5 DRP OTIC (14:35)
--- OUTSIDE RECORDS SUMMARY | 2023-05-25 21:31 | XMS RPT_ITS | CCD ---
Author Name Unknown Address [address] [place] [address] Organization [facility] Care Team Providers Care Brand Communications Manager Name Role Phone Vera Pelletier MD Primary Care Provider [phone] OPAL CAICEDO Referring Unavailable VERA PELLETIER Primary Care Unavailable VERA PELLETIER Primary Care Unavailable VERA PELLETIER Referring Unavailable SAKSHI GORMAN Attending Unavailable VERA PELLETIER Primary Care Unavailable OPAL CAICEDO Attending Unavailable VERA PELLETIER Primary Care Unavailable Vera Pelletier MD Primary Care Provider Allergies Allergy Classification Reported Allergen(s) Allergy Type Date of Onset Reaction(s) Facility (20 sources) Clarithromycin; Translations: [CLARITHROMYCIN] Drug Allergy 6 Unknown [facility] (20 sources) Codeine; Translations: [CODEINE] Drug Allergy 7 [facility] (20 sources) nabumetone; Translations: [NABUMETONE] Drug Allergy 6 Unknown [facility] (20 sources) Naproxen; Translations: [NAPROXEN] Drug Allergy 8 Rash [facility] Work Phone: (20 sources) tylenol#3 [Other] Propensity to adverse reactions 6 Unknown [facility] (1 source) OTHER; Translations: [OTHER] Propensity to adverse reactions (disorder) 6 [facility] (1 source) Acetaminophen / Codeine Drug Allergy 4 Unknown [facility] Work Phone: Medications Current Medications Medication Drug Class(es) Dates Sig (Normalized) Sig (Original) omeprazole 20 mg delayed release oral capsule (20 sources) Proton Pump Inhibitor Start: 12-07-2021 End: 12-27-2023 take 1 capsule by mouth once daily before breakfast omeprazole (PRILOSEC) 20 mg capsule Indications: Heart burn Take 1 capsule by mouth daily before breakfast. 1/2 hr before meal. 90 capsule 3 12/27/2022 12/27/2023 Active Completed/Discontinued Medications Medication Drug Class(es) Dates Sig (Normalized) Sig (Original) alendronic acid 70 mg oral tablet (20 sources) Bisphosphonate Start: 10-16-2020 End: 12-09-2022 take 1 tablet by mouth every week alendronate (FOSAMAX) 70 mg tablet Indications: Osteoporosis, unspecified osteoporosis type, unspecified pathological fracture presence Take 1 tablet by mouth one time a week. 12 tablet 3 12/09/2022 Active Problems Active Problems Problem Classification Problem Date Documented Da te Episodic/Chronic Acute posthemorrhagic anemia (2 sources) Acute posthemorrhagic anemia; Translations: [Acute posthemorrhagic anemia] Onset: 01-05-2023 01-05-2023 Episodic Disorders of lipid metabolism (20 sources) Mixed hyperlipidemia; Translations: [Mixed hyperlipidemia] Onset: 03-12-2020 Chronic Fracture of neck of femur (hip) (2 sources) Closed fracture of hip; Translations: [Fracture of unspecified part of neck of left femur, sequela] Onset: 01-05-2023 01-05-2023 Episodic Genitourinary symptoms and ill-defined conditions (1 source) Urge incontinence of urine; Translations: [Urge incontinence] Chronic Immunizations and screening for infectious disease (1 source) Encounter for immunization; Translations: [Encounter for immunization] Onset: 01-05-2023 Episodic Mood disorders (20 sources) Recurrent major depressive episodes; Translations: [Major depressive disorder, recurrent, unspecified] Onset: 03-16-2005 Chronic Nutritional deficiencies (20 sources) Vitamin D deficiency; Translations: [Vitamin D deficiency, unspecified] Onset: 07-28-2009 Chronic Osteoporosis (20 sources) Osteoporosis; Translations: [Other osteoporosis without current pathological fracture] Onset: 03-16-2005 Chronic Other gastrointestinal disorders (6 sources) Heartburn; Translations: [Heartburn] Episodic Other hereditary and degenerative nervous system conditions (20 sources) Primary lateral sclerosis; 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 06-11-2013 Chronic Other screening for suspected conditions (not mental disorders or infectious disease) (8 sources) Patient encounter status; Translations: [Encounter for screening mammogram for malignant neoplasm of breast] Onset: 01-05-2023 Episodic Paralysis (20 sources) Paralysis; 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, unspecified] Onset: 11-23-2007 04-10-2009 Chronic Thyroid disorders (20 sources) Hypothyroidism; Translations: [Other specified hypothyroidism] Onset: 03-16-2005 Chronic Past or Other Problems Problem Classification Problem Date Documented Da te Episodic/Chronic Deficiency and other anemia (20 sources) Anemia; Translations: [Anemia, unspecified] Onset: 12-09-2008 Episodic Headache; including migraine (20 sources) Headache; Translations: [Headache] Onset: 03-16-2005 03-16-2005 Episodic Other connective tissue disease (20 sources) Muscle pain; Translations: [Myalgia, unspecified site] Onset: 03-16-2005 07-03-2015 Episodic Other fractures (20 sources) Compression fracture of vertebral column; Translations: [Collapsed vertebra, not elsewhere classified, site unspecified, initial encounter for fracture] Onset: 01-24-2013 01-24-2013 Episodic Spondylosis; intervertebral disc disorders; other back problems (20 sources) Backache; Translations: [Dorsalgia, unspecified] Onset: 01-24-2013 01-24-2013 Episodic Results Test Name Value Interpretation Reference Range Facil ity Vital Signs Date Time Vital Sign Value Performing Clinician Aloki malachi 01-05-2023 12:51-0400 Body weight 61.24 kg Sakshi Gorman APRN.CNP Work Phone: [facility] 01-05-2023 12:51-0400 Diastolic blood pressure 88 mm[Hg] Sakshi Gorman APRN.CNP Work Phone: [facility] 01-05-2023 12:51-0400 Heart rate 86 /min Sakshi Gorman APRN.CNP Work Phone: [facility] 01-05-2023 12:51-0400 Respiratory rate 16 /min Sakshi Gorman APRN.CNP Work Phone: [facility] 01-05-2023 12:51-0400 SaO2% (BldA) [Mass fraction] 98 % Sakshi Tannhof EXHAUSTER.LOADING MACHINE OPERATOR Work Phone: [facility] 01-05-2023 12:51-0400 Systolic blood pressure 128 mm[Hg] Sakshi Tannhof EXHAUSTER.LOADING MACHINE OPERATOR Work Phone: [facility] 12-24-2021 12:09-0400 Diastolic blood pressure 90 mm[Hg] Sakshi Tannhof EXHAUSTER.LOADING MACHINE OPERATOR Work Phone: [facility] 12-24-2021 12:09-0400 Systolic blood pressure 119 mm[Hg] Sakshi Tannhof EXHAUSTER.LOADING MACHINE OPERATOR Work Phone: [facility] 12-24-2021 10:59-0400 Body weight 62.6 kg Sakshi Tannhof EXHAUSTER.LOADING MACHINE OPERATOR Work Phone: [facility] 12-24-2021 10:59-0400 Heart rate 85 /min Sakshi Tannhof EXHAUSTER.LOADING MACHINE OPERATOR Work Phone: [facility] 12-24-2021 10:59-0400 Respiratory rate 16 /min Sakshi Tannhof EXHAUSTER.LOADING MACHINE OPERATOR Work Phone: [facility] 12-24-2021 10:59-0400 SaO2% (BldA) [Mass fraction] 96 % Sakshi Tannhof EXHAUSTER.LOADING MACHINE OPERATOR Work Phone: [facility] 08-24-2021 10:53-0400 Body height 150.5 cm Shanta Washington EXHAUSTER.LOADING MACHINE OPERATOR Work Phone: [facility] 08-24-2021 10:53-0400 Body weight 63.05 kg Shanta Washington EXHAUSTER.LOADING MACHINE OPERATOR Work Phone: [facility] 08-24-2021 10:53-0400 Diastolic blood pressure 80 mm[Hg] Shanta Washington EXHAUSTER.LOADING MACHINE OPERATOR Work Phone: [facility] 08-24-2021 10:53-0400 Heart rate 83 /min Shanta Washington EXHAUSTER.LOADING MACHINE OPERATOR Work Phone: [facility] 08-24-2021 10:53-0400 SaO2% (BldA) [Mass fraction] 98 % Shanta Washington EXHAUSTER.LOADING MACHINE OPERATOR Work Phone: [facility] 08-24-2021 10:53-0400 Systolic blood pressure 132 mm[Hg] Shanta Washington EXHAUSTER.LOADING MACHINE OPERATOR Work Phone: [facility] 06-22-2021 11:38-0400 Body weight 63.19 kg Vera Pelletier MD Work Phone: [facility] 06-22-2021 11:38-0400 Diastolic blood pressure 74 mm[Hg] Vera Pelletier MD Work Phone: [facility] 06-22-2021 11:38-0400 Heart rate 68 /min Vera Pelletier MD Work Phone: [facility] 06-22-2021 11:38-0400 Respiratory rate 16 /min Vera Pelletier MD Work Phone: [facility] 06-22-2021 11:38-0400 Systolic blood pressure 118 mm[Hg] Vera Pelletier MD Work Phone: [facility] Encounters Encounter Date Encounter Type Care Provider Facility Start: 04-07-2023 Refill Vera arriola MD Work Phone: [address] [place] [address] Start: 03-18-2023 End: 03-19-2023 ambulatory OPAL CAICEDO Facility:[facility] Start: 01-28-2023 Telephone encounter Opal rivera EXHAUSTER.LOADING MACHINE OPERATOR Work Phone: [facility] Procedures Date Procedure Procedure Detail Performing Clinician Start: 01-05-2023 INFLUENZA VACCINE, P RSV FREE, AGE 65+ YR, HIGH DOSE, QUADRIVALENT (FLUZONE HIGH-DOSE) Sakshi Gorman EXHAUSTER.LOADING MACHINE OPERATOR Work Phone: Start: 12-24-2021 INFLUENZA SEASONAL QUADRIVALENT HIGH DOSE AGE 65+ Sakshi Gorman APRN.LOADING MACHINE OPERATOR Work Phone: Start: 07-03-2021 Lipid 1996 panel - S vineet or Plasma Vera Pelletier MD Work Phone: Start: 06-24-2021 End: 06-24-2021 Mammography Vera Pelletier MD Work Phone: Start: 01-01-2019 Mammography Vera mendes MD Work Phone: Plan of Treatment Date Care Activity Detail Author Start: 04-29-2028 Urine microalbumin profile DTaP,Tdap,Td Vaccine (4 - Td or Tdap) [facility] Start: 04-04-2028 Urine microalbumin profile [facility] Start: 07-03-2026 Lipid 1996 panel - S vineet or Plasma Lipid Screening [facility] Start: 07-03-2026 Lipid panel Lipid Screening [facility] Start: 07-03-2026 LIPID SCREEN LIPID SCREEN [facility] Start: 01-19-2026 Cologuard (FIT-DNA) Cologuard (FIT-D NA) [facility] Start: 01-19-2026 Colorectal Cancer Screening Colorectal Cancer Screening [facility] Start: 01-19-2026 Screening for malign ant neoplasm of colon [facility] Start: 01-05-2026 [facility] Start: 12-17-2025 LIPID SCREEN LIPID SCREEN [facility] Start: 07-03-2024 DIABETES SCREEN DIABETES SCREEN [facility] Start: 07-03-2024 [facility] Start: 01-06-2024 Annual PCP Team Lace Machine Operator hieu Disease Visit Annual PCP Team Chronic Disease Visit [facility] Start: 12-18-2023 DIABETES SCREEN DIABETES SCREEN [facility] Start: 10-05-2023 ANNUAL PCP TEAM ADMINISTRATOR SOCIAL WELFARE HIEU DISEASE VISIT ANNUAL PCP TEAM CHRONIC DISEASE VISIT [facility] Start: 03-14-2023 Advance Directive Discussion Advance Directive Discussion [facility] Start: 12-24-2022 ANNUAL PCP TEAM ADMINISTRATOR SOCIAL WELFARE HIEU DISEASE VISIT ANNUAL PCP TEAM CHRONIC DISEASE VISIT [facility] Start: 11-12-2022 Covid-19 Vaccine ( season) Covid-19 Vaccine () [facility] Start: 11-12-2022 Influenza vaccination [facility] Start: 06-24-2022 End: 08-24-2022 25-hydroxyvitamin D3 [Mass/volume] in Serum or Plasma VITAMIN D 25 HYDROXY Lab Routine Vitamin D deficiency Expected: 06/24/2022, Expires: 08/24/2022 [facility] Work Phone: Immunizations Immunization Date Immunization Notes Care Provider Deepika rodriguez 01-05-2023 influenza (HD-IIV4) vaccine, age 65+ yr, high dose, quadrivalent, PF (FLUZONE HIGH-DOSE) Sakshi Gorman EXHAUSTER.LOADING MACHINE OPERATOR Work Phone: [facility] 12-24-2021 influenza, high-dose , quadrivalent vaccine (FLUZONE HIGH DOSE QUADRIVALENT) Sakshi Gorman EXHAUSTER.LOADING MACHINE OPERATOR Work Phone: [facility] 12-24-2021 influenza virus vacc ine, unspecified formulation Vera Pelletier MD Work Phone: [facility] 12-17-2020 influenza, high-dose , quadrivalent vaccine (FLUZONE HIGH DOSE QUADRIVALENT) Vera Pelletier MD Work Phone: [facility] 03-12-2020 influenza, high-dose , quadrivalent vaccine (FLUZONE HIGH DOSE QUADRIVALENT) Vera Pelletier MD Work Phone: [facility] 11-24-2018 influenza, high dose seasonal, preservative-free Vera Pelletier MD Work Phone: [facility] 11-24-2017 influenza, high dose seasonal, preservative-free Vera Pelletier MD Work Phone: [facility] 11-26-2016 influenza, high dose seasonal, preservative-free Vera Pelletier MD Work Phone: [facility] 01-30-2015 influenza, high dose seasonal, preservative-free Vera Pelletier MD Work Phone: [facility] 01-30-2015 pneumococcal conjuga te vaccine, 13 valent Vera Pelletier MD Work Phone: [facility] 01-25-2013 influenza virus vacc ine, unspecified formulation Vera Pelletier MD Work Phone: [facility] 10-28-2012 pneumococcal polysaccharide vaccine, 23 valent Vera Pelletier MD Work Phone: [facility] 02-19-2011 influenza virus vacc ine, unspecified formulation Vera Pelletier MD Work Phone: [facility] Work Phone: 03-19-2010 influenza virus vacc ine, unspecified formulation Vera Pelletier MD Work Phone: [facility] Work Phone: 11-06-2004 diphtheria and tetan us toxoids, adsorbed for pediatric use Vera Pelletier MD Work Phone: [facility] Work Phone: Payers Date Payer Category Payer Medicare HU[employer]NA MEDICARE HU[employer]NA MEDICARE PPO [id number] 2020-Present [phone] [id number] [place] [address] PPO [id number] 2020 Medicare HUMANA MEDICARE HU[employer]NA MEDICARE PPO [id number] 2020-Present [phone] [place] [address] PPO [id number] 2020 Medicare [id number] Social History Date Type Detail Facility Start: 12-24-2021 Tobacco smoking stat [facility] Never smoked tobacco [facility] Start: 06-22-2021 End: 01-05-2023 Alcohol intake Current non-drinker of alcohol (finding) [facility] Start: 1945 Sex Assigned At Not on file [facility] Start: 06-12-2021 End: 12-24-2021 Exposure to SARS-CoV-2 (event) Not sure [facility] Start: 12-24-2021 Tobacco use and exposure Smoke less tobacco non-user [facility] Start: 11-24-2018 End: 10-04-2022 History of Social function [facility] Start: 11-24-2018 End: 10-04-2022 Tobacco use panel [facility] Adult Depression Scr eening Assessment 0 [facility] Clinical Notes 06-22-2021 to 04-07-2023 Telephone Encounter - Vera Pelletier MD - 04/07/2023 4:35 PM ESTTelephone Encounter - Carrie Villalta MA - 04/07/2023 4:04 PM ESTPatient InstructionsPatient Instructions Note Date & Type Note Facility 04-07-2023 Miscellaneous Notes OK to refill as ordered Vera Pelletier MD HEMANT: 01/05/23 with AT NOV: 07/07/23-6 month F/U with AT Last refill: 04/05/22 With 270 and 1 refills Carrie Villalta MA Patient has been identified by name and date of : Yes, Provider Dr. Pelletier Date 04/07/2023 Time 3:45 Spouse phones for refill(s): Requested Prescriptions Pending Prescriptions Disp Refills cyclobenzaprine (FLEXERIL) 5 mg tablet 270 tablet 1 Sig: Take 1 tablet by mouth three times a day as needed. Date of last office visit in primary care: Visit date not found Date of next office visit in primary care: Visit date not found Please advise. Thank you. Bekah Goff. documented in this encounter [facility] 03-17-2023 Note HNO ID: [id number] Author: ?, ?, ? Service: ? Author Type: ? Type: Progress Notes Filed: 03/17/2023 17:28 Note Text: POPULATION HEALTH NAVIGATION OUTREACH Action/FYI Letter received and sent to be mailed Navigation Signature: Мария Guevara March 17, 2023 5:28 PM [facility] 03-17-2023 Note HNO ID: [id number] Author: BRANDY PERRY MA Service: ? Author Type: Director For [employer] Type: Progress Notes Filed: 03/17/2023 14:28 Note Text: POPULATION HEALTH NAVIGATION OUTREACH Action/FYI Patient is on HCC list for below gaps and needs appt to address : Unavailable due to report malfunction Care gaps/appts to address: Return in about 6 months (around 07/07/2023) for 6 Month Check . Well exam Outcomes: Attempted to call- no answer- unable to LM-vm not set up no mychart Letter printed to [place] for mailing. Patient Identified by Name and : NO Outreach Outcome/Action Unable to reach patient: Phone number not valid / voicemail full Letter mailed Did you use a PCP flex slot to schedule this appointment? N/A Reason for Outreach HCC or suspected condition Payer: Payor: HUMANA MEDICARE / Plan: [employer] MEDICARE PPO / Product Type: PPO / Care Gap Reviewed:: Annual Wellness visit Follow-up appointment Reminder: Reminder note to check Health Maintenance for items below Health Maintenance items due: Shingrix Vaccine(1 of 2) Never done RSV Vaccine(1 - 1-dose 60+ series) Never done Covid-19 Vaccine( season) due on 11/12/2022 Advance Directive Discussion due on 03/14/2023 Navigation Signature: Brandy Perry MA March 17, 2023 2:24 PM [facility] 03-17-2023 Note Patient Outreach (NE TNAV) BRIANNE COCHRAN ([id number]) 1945 F Date Time Provider Department 03/17/23 BRANDY PERRY During your visit today, we recorded the following information about you: Brandy Perry MA 03/17/2023 2:28 PM Signed POPULATION HEALTH NAVIGATION OUTREACH Action/FYI Patient is on HCC list for below gaps and needs appt to address : Unavailable due to report malfunction Care gaps/appts to address: Return in about 6 months (around 07/07/2023) for 6 Month Check . Well exam Outcomes: Attempted to call- no answer- unable to LM-vm not set up no mychart Letter printed to [place] for mailing. Patient Identified by Name and : NO Outreach Outcome/Action Unable to reach patient: Phone number not valid / voicemail full Letter mailed Did you use a PCP flex slot to schedule this appointment? N/A Reason for Outreach HCC or suspected condition Payer: Payor: HUMANA MEDICARE / Plan: [employer]NA MEDICARE PPO / Product Type: PPO / Care Gap Reviewed:: Annual Wellness visit Follow-up appointment Reminder: Reminder note to check Health Maintenance for items below Health Maintenance items due: Shingrix Vaccine(1 of 2) Never done RSV Vaccine(1 - 1-dose 60+ series) Never done Covid-19 Vaccine( season) due on 11/12/2022 Advance Directive Discussion due on 03/14/2023 Navigation Signature: Brandy Perry MA March 17, 2023 2:24 PM Мария Guevara 03/17/2023 5:28 PM Signed POPULATION HEALTH NAVIGATION OUTREACH Action/FYI Letter received and sent to be mailed Navigation Signature: Мария Guevara March 17, 2023 5:28 PM Allergies As of Date: 03/17/2023 Noted Allergy Reaction BIAXIN (CLARITHROMYCIN) 03/16/2005 16 - Unknown Comments: Doesn't remember, was a long time ago CODEINE 01/05/2007 Comments: unknown-long time ago NAPROXEN 11/23/2007 2 - Rash Comments: Generalized, nonpruritic RELAFEN (NABUMETONE) 03/16/2005 16 - Unknown Comments: Doesn't remember tylenol#3 [Other] 03/16/2005 16 - Unknown Comments: Doesn't remember Date Reviewed: 01/05/2023 Reviewed by: Sakshi Gorman APRN.LOADING MACHINE OPERATOR - Fully Assessed Reason for Visit: Population Health Navigation Outreach [3910] Cmt: HCC Prescriptions as of 03/17/2023 - levothyroxine (SYNTHROID) 88 mcg tablet Take 1 tablet by mouth once daily. - FLUoxetine (PROZAC) 40 mg capsule Take 1 capsule by mouth once daily. - omeprazole (PRILOSEC) 20 mg capsule Take 1 capsule by mouth daily before breakfast. 1/2 hr before meal. - alendronate (FOSAMAX) 70 mg tablet Take 1 tablet by mouth one time a week. - atorvastatin (LIPITOR) 20 mg tablet Take 1 tablet by mouth once daily. - oxyCODONE IR (ROXICODONE) 5 mg immediate release tablet Take 1 tablet by mouth as directed. D/C from [facility]; for HIP fracture - senna-docusate (SENNA-S) 8.6-50 mg per tablet Take 1 tablet by mouth twice daily. - cyclobenzaprine (FLEXERIL) 5 mg tablet TAKE 1 TABLET THREE TIMES DAILY NEEDED - triamcinolone (KENALOG) 0.025 % ointment Apply 1 application to affected area twice daily. - MULTIVITS W-FE,OTHER MIN/LUT (CENTRUM SILVER ULTRA WOMEN'S ORAL) Take 1 tablet by mouth once daily. - calcium carbonate 600 mg-cholecalciferol 400 units 600 mg-10 mcg (400 unit) tab Take 1 tablet by mouth once daily. - Cholecalciferol, Vitamin D3, 2,000 unit ORAL Cap Take 1 capsule by mouth once daily. 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 Pt voices understanding. Madelaine Nath RN Please the patient know that her cologuard testing was normal. This screening is valid for three years. Opal Caicedo APRN.BERNIE documented in this encounter [facility] 01-06-2023 Miscellaneous Notes Already addressed in other note Vera Pelletier MD documented in this encounter [facility] 01-05-2023 Note HNO ID: [id number] Author: Sakshi Gorman APRN.BERNIE Service: ? Author Type: Nurse Practitioner Type: Progress Notes Filed: 01/05/2023 1:44 PM Note Text: This is a 77 year old female who presents today with: Patient presents with: Follow Up: 3 month follow up HISTORY OF PRESENT ILLNESS: Brianne Cochran is a 77 year old female. No chief complaint on file. 3 month follow up Anemia due to blood loss: Repeat labs due for stability. Will have completed today. Closed Fracture Left Hip: Hospital follow up completed in September. Completed PT and released from Orthopedics. Refers that her hip is doing well but has noted left leg pain when sitting in certain positions. Lipids: Taking Lipitor 20 mg daily. Watching diet and staying active. Denies any leg pain. Thyroid: Taking Synthroid 75 mcg daily. Denies any difficulty swallowing, palpitations, or heat/cold intolerances. ALIN/Depression: Taking Prozac 40 mg daily. Symptoms well controlled with medication. Denies any increased sadness, anxiety, SI/HI. Osteoporosis: Fosamax 70 mg weekly. Taking Calcium Incontinence: Noticed about 1 month ago would have the urge to urinate quickly. Will feel like she cant get to the bathroom in time. Has had a couple of accidents. No dysuria or hematuria. Vaccines: Would like flu vaccine PAST MEDICAL HISTORY: PAST MEDICAL HISTORY Diagnosis Date Adjustment disorder with depressed mood Breast calcifications 12/2016 Depression Iron deficiency anemia, unspecified Lateral sclerosis Migraine headache without aura <=1 per month as of May 2013 Myalgia and myositis, unspecified Osteoarthritis Spastic paresis (HCC) Unspecified hypothyroidism PAST SURGICAL HISTORY Procedure Laterality Date BREAST BIOPSY Left 12/16/2016 [facility]-Dr. Sandhu DELIVERY ONLY , low transverse x 2 HIP SURGERY HX Left 09/08/2022 Left, femur fracture. Dr. Benson PAST SURGICAL HISTORY OF cyst removed from ovaries ALLERGIES Biaxin [Clarithromycin], Codeine, Naproxen, Relafen [Nabumetone], and Tylenol#3 [Other] MEDICATIONS Current Outpatient Medications Medication Sig omeprazole (PRILOSEC) 20 mg capsule Take 1 capsule by mouth daily before breakfast. 1/2 hr before meal. alendronate (FOSAMAX) 70 mg tablet Take 1 tablet by mouth one time a week. atorvastatin (LIPITOR) 20 mg tablet Take 1 tablet by mouth once daily. oxyCODONE IR (ROXICODONE) 5 mg immediate release tablet Take 1 tablet by mouth as directed. D/C from [facility]; for HIP fracture senna-docusate (SENNA-S) 8.6-50 mg per tablet Take 1 tablet by mouth twice daily. levothyroxine (SYNTHROID) 75 mcg tablet TAKE 1 TABLET EVERY DAY cyclobenzaprine (FLEXERIL) 5 mg tablet TAKE 1 TABLET THREE TIMES DAILY NEEDED FLUoxetine (PROZAC) 40 mg capsule TAKE 1 CAPSULE EVERY DAY triamcinolone (KENALOG) 0.025 % ointment Apply 1 application to affected area twice daily. MULTIVITS W-FE,OTHER MIN/LUT (CENTRUM SILVER ULTRA WOMEN'S ORAL) Take 1 tablet by mouth once daily. calcium carbonate 600 mg-cholecalciferol 400 units 600 mg-10 mcg (400 unit) tab Take 1 tablet by mouth once daily. Cholecalciferol, Vitamin D3, 2,000 unit ORAL Cap Take 1 capsule by mouth once daily. (Patient taking differently: Take 0.5 capsules by mouth once daily.) No current facility-administered medications for this visit. FAMILY HISTORY Problem Relation Age of Onset Psychiatry Father Cancer Father lymphoma Headache Father other (HTN) Father Cancer Mother brain mets Psychiatry Mother depression/anxiety Headache Mother other (HTN) Mother Colon Cancer Other none Coronary Artery Disease Other none Breast Cancer Sister Social History Tobacco Use Smoking status: Never Smokeless tobacco: Never Vaping Use Vaping Use: Never used Substance Use Topics Alcohol use: No Drug use: No REVIEW OF SYSTEMS GENERAL: No weight loss, malaise or fevers/chills HEENT: Negative for frequent or significant headaches, No changes in hearing or vision. NECK: Negative for lumps, goiter, pain and significant neck swelling RESPIRATORY: Negative for cough, hemoptysis, wheezing, dyspnea or shortness of breath CARDIOVASCULAR: Negative for chest pain, leg swelling, orthopnea, or palpitations GI: No nausea, vomiting, or diarrhea/constipation. No hematochezia/melena. No heartburn or reflux symptoms. : No history of dysuria, frequency or incontinence MUSCULOSKELETAL: Negative for joint pain or swelling. SKIN: Negative for lesions, rash, and itching ENDOCRINE: Negative for cold or heat intolerance, polyuria, polydipsia and goiter NEURO: No history of headaches, syncope, paralysis, seizures or tremors MOOD: Negative for depression, anxiety, or suicidal ideation. EXAM: BP 128/88 Pulse 86 Resp 16 Wt 61.2 kg (135 lb) SpO2 98% BMI 27.04 kg/m? PHYSICAL EXAM: General Appearance: Well appearing, alert, in no acute distress, well-hydrated, wel (more content not included)... [facility] 01-05-2023 Instructions Sakshi Gorman APRN.CNP - 01/05/2023 1:19 PM EDT Get labs completed Continue to take all medication as prescribed. Recommend considering another round of physical therapy if needed Cologuard stool tesitng will be mailed to your home. Flu vaccine given today, may get covid booster or RSV vaccine in the future. Follow up in 6 months. documented in this encounter [facility] 01-05-2023 History of Presen t illness Narrative This is a 77 year old female who presents today with: Patient presents with: Follow Up: 3 month follow up HISTORY OF PRESENT ILLNESS: Brianne Cochran is a 77 year old female. No chief complaint on file. 3 month follow up Anemia due to blood loss: Repeat labs due for stability. Will have completed today. Closed Fracture Left Hip: Hospital follow up completed in September. Completed PT and released from Orthopedics. Refers that her hip is doing well but has noted left leg pain when sitting in certain positions. Lipids: Taking Lipitor 20 mg daily. Watching diet and staying active. Denies any leg pain. Thyroid: Taking Synthroid 75 mcg daily. Denies any difficulty swallowing, palpitations, or heat/cold intolerances. ALIN/Depression: Taking Prozac 40 mg daily. Symptoms well controlled with medication. Denies any increased sadness, anxiety, SI/HI. Osteoporosis: Fosamax 70 mg weekly. Taking Calcium Incontinence: Noticed about 1 month ago would have the urge to urinate quickly. Will feel like she cant get to the bathroom in time. Has had a couple of accidents. No dysuria or hematuria. Vaccines: Would like flu vaccine PAST MEDICAL HISTORY: PAST MEDICAL HISTORY Diagnosis Date Adjustment disorder with depressed mood Breast calcifications 12/2016 Depression Iron deficiency anemia, unspecified Lateral sclerosis Migraine headache without aura <=1 per month as of May 2013 Myalgia and myositis, unspecified Osteoarthritis Spastic paresis (HCC) Unspecified hypothyroidism PAST SURGICAL HISTORY Procedure Laterality Date BREAST BIOPSY Left 12/16/2016 [facility]-Dr. Sandhu DELIVERY ONLY , low transverse x 2 HIP SURGERY HX Left 09/08/2022 Left, femur fracture. Dr. Benson PAST SURGICAL HISTORY OF cyst removed from ovaries ALLERGIES Biaxin [Clarithromycin], Codeine, Naproxen, Relafen [Nabumetone], and Tylenol#3 [Other] MEDICATIONS Current Outpatient Medications Medication Sig omeprazole (PRILOSEC) 20 mg capsule Take 1 capsule by mouth daily before breakfast. 1/2 hr before meal. alendronate (FOSAMAX) 70 mg tablet Take 1 tablet by mouth one time a week. atorvastatin (LIPITOR) 20 mg tablet Take 1 tablet by mouth once daily. oxyCODONE IR (ROXICODONE) 5 mg immediate release tablet Take 1 tablet by mouth as directed. D/C from [facility]; for HIP fracture senna-docusate (SENNA-S) 8.6-50 mg per tablet Take 1 tablet by mouth twice daily. levothyroxine (SYNTHROID) 75 mcg tablet TAKE 1 TABLET EVERY DAY cyclobenzaprine (FLEXERIL) 5 mg tablet TAKE 1 TABLET THREE TIMES DAILY NEEDED FLUoxetine (PROZAC) 40 mg capsule TAKE 1 CAPSULE EVERY DAY triamcinolone (KENALOG) 0.025 % ointment Apply 1 application to affected area twice daily. MULTIVITS W-FE,OTHER MIN/LUT (CENTRUM SILVER ULTRA WOMEN'S ORAL) Take 1 tablet by mouth once daily. calcium carbonate 600 mg-cholecalciferol 400 units 600 mg-10 mcg (400 unit) tab Take 1 tablet by mouth once daily. Cholecalciferol, Vitamin D3, 2,000 unit ORAL Cap Take 1 capsule by mouth once daily. (Patient taking differently: Take 0.5 capsules by mouth once daily.) No current facility-administered medications for this visit. FAMILY HISTORY Problem Relation Age of Onset Psychiatry Father Cancer Father lymphoma Headache Father other (HTN) Father Cancer Mother brain mets Psychiatry Mother depression/anxiety Headache Mother other (HTN) Mother Colon Cancer Other none Coronary Artery Disease Other none Breast Cancer Sister Social History Tobacco Use Smoking status: Never Smokeless tobacco: Never Vaping Use Vaping Use: Never used Substance Use Topics Alcohol use: No Drug use: No REVIEW OF SYSTEMS GENERAL: No weight loss, malaise or fevers/chills HEENT: Negative for frequent or significant headaches, No changes in hearing or vision. NECK: Negative for lumps, goiter, pain and significant neck swelling RESPIRATORY: Negative for cough, hemoptysis, wheezing, dyspnea or shortness of breath CARDIOVASCULAR: Negative for chest pain, leg swelling, orthopnea, or palpitations GI: No nausea, vomiting, or diarrhea/constipation. No hematochezia/melena. No heartburn or reflux symptoms. : No history of dysuria, frequency or incontinence MUSCULOSKELETAL: Negative for joint pain or swelling. SKIN: Negative for lesions, rash, and itching ENDOCRINE: Negative for cold or heat intolerance, polyuria, polydipsia and goiter NEURO: No history of headaches, syncope, paralysis, seizures or tremors MOOD: Negative for depression, anxiety, or suicidal ideation. EXAM: BP 128/88 Pulse 86 Resp 16 Wt 61.2 kg (135 lb) SpO2 98% BMI 27.04 kg/m PHYSICAL EXAM: General Appearance: Well appearing, alert, in no acute distress, well-hydrated, well nourished.. Skin: Skin color, texture, turgor normal, no suspicious rashes or lesions. Head: Normocephalic, no masses, lesions, tenderness or abnormalities. Eyes: Anicteric sclera. Pupils are equally round and reactive to light. Extraocular movements are intact. . Lungs: Lungs clear to auscultation. No wheezing, rhonchi, rales.. Heart: RRR without murmur, gallop, or rubs. No ectopy. Extremities: No deformities, edema, skin discoloration, clubbing or cyanosis. Good capillary refill. . Musculoskeletal: No joint swelling, deformity, or tenderness. Peripheral Pulses: Normal, Capillary refill <2secs, strong peripheral pulses, Pulses palpable. Neurologic: Gait normal. Reflexes normal and symmetric. Sensation grossly intact.. ASSESSMENT/PLAN: 1. Closed fracture of left hip, sequela - ICD9: 905.3, ICD10: S72.002S (primary diagnosis) - Recommend continuing at home PT exercises to help strengthen the legs ad hips. 2. Acute blood loss anemia - ICD9: 285.1, ICD10: D62 - Get labs completed today for reassessment. 3. Hyperlipidemia, mixed - ICD9: 272.2, ICD10: E78.2 - Controlled - Continue current medications - Counseled on healthy diet and regular exercise 4. Episode of recurrent major depressive disorder, unspecified depression episode severity (HCC) - ICD9: 296.30, ICD10: F33.9 - Stable, refill provided. - FLUOXETINE 40 MG CAPSULE 5. Osteoporosis, unspecified osteoporosis type, unspecified pathological fracture presence - ICD9: 733.00, ICD10: M81.0 - continue tx with alendronate (Fosamax) - Reviewed the need for Calcium and Vitamin D supplements and weight bearing exercise as tolerated 6. Other specified hypothyroidism - ICD9: 244.8, ICD10: E03.8 - Instructed patient on importance of taking on an empty stomach either first thing in the morning or at bedtime. - Continue to take medication as prescribed. 7. Screening for colon cancer - ICD9: V76.51, ICD10: Z12.11 - COLOGUARD 8. Encounter for immunization - ICD9: V03.89, ICD10: Z23 - VIS provided. - INFLUENZA VACCINE, PRSV FREE, AGE 65+ YR, HIGH DOSE, QUADRIVALENT (FLUZONE HIGH-DOSE) Follow-up in 6 months or sooner pending test results. Discussed treatment plan and patient voices understanding. Patient's questions answered appropriately. Medications and potential side effects were discussed and patient voices understanding. Sakshi Tannhof, EXHAUSTER.BERNIE This note was partially generated using Circa voice recognition system. Note was reviewed for accuracy. There may be minor misspellings or grammar miscues with Keybroker[employer] voice recognition. documented in this encounter [facility] 12-27-2022 Miscellaneous Notes The following approved medication requests have been transmitted electronically. Requested Prescriptions Signed Prescriptions Disp Refills omeprazole (PRILOSEC) 20 mg capsule 90 capsule 3 Sig: Take 1 capsule by mouth daily before breakfast. 1/2 hr before meal. Authorizing Provider: SAKSHI GORMAN APRN.CNP documented in this encounter [facility] 12-09-2022 Miscellaneous Notes OK to refill as ordered Vera Pelletier MD Last OV: 10/04/22 Next OV: 01/06/23 Last Rx: 10/23/21 #12 w/3. Please send Rx in as I believe this was sent in, incorrectly by the person below. Lisa Fairchild Ma Patient has been identified by name and date of : Yes Last office visit in this department: 10/04/2022 RX INSTRUCTIONS: Patient aware RX will be sent to pharmacy. No need to notify patient. Patient phones requesting refills as follows: Requested Prescriptions Pending Prescriptions Disp Refills alendronate (FOSAMAX) 70 mg tablet 12 tablet 3 Sig: Take 1 tablet by mouth one time a week. Please review and advise. Ayaz Mayer documented in this encounter [facility] 12-01-2022 Note Patient Outreach (IN TMMN) BRIANNE COCHRAN ([id number]) 1945 F Date Time Provider Department 12/01/22 VERA PELLETIER During your visit today, we recorded the following information about you: Allergies As of Date: 12/01/2022 Noted Allergy Reaction BIAXIN (CLARITHROMYCIN) 03/16/2005 16 - Unknown Comments: Doesn't remember, was a long time ago CODEINE 01/05/2007 Comments: unknown-long time ago NAPROXEN 11/23/2007 2 - Rash Comments: Generalized, nonpruritic RELAFEN (NABUMETONE) 03/16/2005 16 - Unknown Comments: Doesn't remember tylenol#3 [Other] 03/16/2005 16 - Unknown Comments: Doesn't remember Date Reviewed: 10/04/2022 Reviewed by: Carrie Villalta MA - Fully Assessed Visit Diagnosis:Encounter for screening mammogram for breast cancer [Z12.31] Order(s):[facility] SCREEN[facility] [[id number]] Order #: [id number] FUTURE Prescriptions as of 12/06/2022 - atorvastatin (LIPITOR) 20 mg tablet Take 1 tablet by mouth once daily. - oxyCODONE IR (ROXICODONE) 5 mg immediate release tablet Take 1 tablet by mouth as directed. D/C from [facility]; for HIP fracture - senna-docusate (SENNA-S) 8.6-50 mg per tablet Take 1 tablet by mouth twice daily. - levothyroxine (SYNTHROID) 75 mcg tablet TAKE 1 TABLET EVERY DAY - cyclobenzaprine (FLEXERIL) 5 mg tablet TAKE 1 TABLET THREE TIMES DAILY NEEDED - FLUoxetine (PROZAC) 40 mg capsule TAKE 1 CAPSULE EVERY DAY - omeprazole (PRILOSEC) 20 mg capsule Take 1 capsule by mouth daily before breakfast. 1/2 hr before meal. - alendronate (FOSAMAX) 70 mg tablet Take 1 tablet by mouth one time a week. - triamcinolone (KENALOG) 0.025 % ointment Apply 1 application to affected area twice daily. - MULTIVITS W-FE,OTHER MIN/LUT (CENTRUM SILVER ULTRA WOMEN'S ORAL) Take 1 tablet by mouth once daily. - calcium carbonate 600 mg-cholecalciferol 400 units 600 mg-10 mcg (400 unit) tab Take 1 tablet by mouth once daily. - Cholecalciferol, Vitamin D3, 2,000 unit ORAL Cap Take 1 capsule by mouth once daily. 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 N/A Reason for Outreach Care Gap or Scheduling/Wellness visits Payer: Payor: [employer] MEDICARE / Plan: [employer] MEDICARE PPO / Product Type: PPO / Care Gap Reviewed:: Breast Cancer screening Colorectal Cancer Screening Reminder: Reminder note to check Health Maintenance for items below Health Maintenance items due: SHINGRIX VACCINE(1 of 2) Never done COVID-19 VACCINE(3 - Pfizer series) due on 08/07/2020 COLORECTAL CANCER SCREENING due on 12/23/2021 ADVANCE DIRECTIVE DISCUSSION Never done MAMMOGRAM due on 06/24/2022 Navigation Signature: Mel Christine MA November 08, 2022 12:21 PM [facility] 11-08-2022 Note Patient Outreach (NE TNKATIE) BRIANNE COCHRAN ([id number]) 1945 F Date Time Provider Department 11/08/22 MEL CHRISTINE During your visit today, we recorded the following information about you: Mel Christine MA 11/08/2022 2:32 PM Signed POPULATION HEALTH NAVIGATION OUTREACH Action/ Due: colonoscopy, mammogram (active order) [facility] GAPS: G83.9 - Paralysis, unspecified - [id number] Last Billed 06/22/2021 F33.9 - Major depressive disorder, recurrent episode (HCC) - [id number] Last Billed 12/24/2021 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 N/A Reason for Outreach Care Gap or Scheduling/Wellness visits Payer: Payor: [employer] MEDICARE / Plan: [employer] MEDICARE PPO / Product Type: PPO / Care Gap Reviewed:: Breast Cancer screening Colorectal Cancer Screening Reminder: Reminder note to check Health Maintenance for items below Health Maintenance items due: SHINGRIX VACCINE(1 of 2) Never done COVID-19 VACCINE(3 - Pfizer series) due on 08/07/2020 COLORECTAL CANCER SCREENING due on 12/23/2021 ADVANCE DIRECTIVE DISCUSSION Never done MAMMOGRAM due on 06/24/2022 Navigation Signature: Mel Christine MA November 08, 2022 12:21 PM Allergies As of Date: 11/08/2022 Noted Allergy Reaction BIAXIN (CLARITHROMYCIN) 03/16/2005 16 - Unknown Comments: Doesn't remember, was a long time ago CODEINE 01/05/2007 Comments: unknown-long time ago NAPROXEN 11/23/2007 2 - Rash Comments: Generalized, nonpruritic RELAFEN (NABUMETONE) 03/16/2005 16 - Unknown Comments: Doesn't remember tylenol#3 [Other] 03/16/2005 16 - Unknown Comments: Doesn't remember Date Reviewed: 10/04/2022 Reviewed by: Carrie Villalta MA - Fully Assessed Reason for Visit: Population Health Navigation Outreach [3910] Cmt: [employer] Prescriptions as of 11/08/2022 - atorvastatin (LIPITOR) 20 mg tablet Take 1 tablet by mouth once daily. - oxyCODONE IR (ROXICODONE) 5 mg immediate release tablet Take 1 tablet by mouth as directed. D/C from [facility]; for HIP fracture - senna-docusate (SENNA-S) 8.6-50 mg per tablet Take 1 tablet by mouth twice daily. - levothyroxine (SYNTHROID) 75 mcg tablet TAKE 1 TABLET EVERY DAY - cyclobenzaprine (FLEXERIL) 5 mg tablet TAKE 1 TABLET THREE TIMES DAILY NEEDED - FLUoxetine (PROZAC) 40 mg capsule TAKE 1 CAPSULE EVERY DAY - omeprazole (PRILOSEC) 20 mg capsule Take 1 capsule by mouth daily before breakfast. 1/2 hr before meal. - alendronate (FOSAMAX) 70 mg tablet Take 1 tablet by mouth one time a week. - triamcinolone (KENALOG) 0.025 % ointment Apply 1 application to affected area twice daily. - MULTIVITS W-FE,OTHER MIN/LUT (CENTRUM SILVER ULTRA WOMEN'S ORAL) Take 1 tablet by mouth once daily. - calcium carbonate 600 mg-cholecalciferol 400 units 600 mg-10 mcg (400 unit) tab Take 1 tablet by mouth once daily. - Cholecalciferol, Vitamin D3, 2,000 unit ORAL Cap Take 1 capsule by mouth once daily. 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
F33.9 - Major depressive disorder, recurrent episode (HCC) - [id number] Last Billed 12/24/2021
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 N/A Reason for Outreach Care Gap or Scheduling/Wellness visits Payer: Payor: [employer] MEDICARE / Plan: [employer] MEDICARE PPO / Product Type: PPO / Care Gap Reviewed:: Breast Cancer screening Colorectal Cancer Screening Reminder: Reminder note to check Health Maintenance for items below Health Maintenance items due: SHINGRIX VACCINE(1 of 2) Never done COVID-19 VACCINE(3 - Pfizer series) due on 08/07/2020 COLORECTAL CANCER SCREENING due on 12/23/2021 ADVANCE DIRECTIVE DISCUSSION Never done MAMMOGRAM due on 06/24/2022 Navigation Signature: Mel Christine MA November 08, 2022 12:21 PM documented in this encounter [facility] 10-04-2022 Note HNO ID: [id number] Author: Opal Caicedo APRN.LOADING MACHINE OPERATOR Service: ? Author Type: Nurse Practitioner Type: Progress Notes Filed: 10/04/2022 11:19 AM Note Text: Chief Complaint Patient presents with: ER F/U: [facility] 09/07/22; LEFT hip fracture HPI Brianne Cochran is a 76 year old female who presents here today for Hospital Discharge Follow up. Here with family member. And in a wheelchair as patient is unable to walk. Patient is here for hospital follow-up. Patient suffered a fall on 09/07 and went to the ER at [facility]. Had a fracture of the proximal left femur. Had subsequent intertrochanteric hip femur nailing completed. Surgeon was Dr. Manriquez. This occurred on 09/08. Had postop anemia. On September 10 her hemoglobin was 6.8, hematocrit 21.5%. September 26, her hemoglobin was 11.0 and hematocrit 35.3%. Her CMP on September 26 was normal. She spent some time in [facility], including their transitional care unit. She has been home for 4 days. She has been home, she has noticed some difficulty with ambulating. Using a walker at home. Stating that it feels different than when she was in a transitional care unit. Feels like a pressure sensation in the left hip area. She denies any chest pain, shortness of breath, dizziness, syncope. She denies any diffuse left leg swelling. It has slowly improved since her surgery. She has no calf pain. She has no fevers. She does not have a follow-up scheduled with her orthopedic surgeon. We will provide her with the contact number. Past medical history, appointments, medications, allergies reviewed. EXAM: BP 136/78 Pulse 76 Resp 16 Wt 61.2 kg (135 lb) SpO2 97% BMI 27.04 kg/m? General Appearance: Well appearing, alert, in no acute distress, well-hydrated, well nourished.. Lungs: Lungs clear to auscultation. No wheezing, rhonchi, rales.. Heart: RRR without murmur, gallop, or rubs. No ectopy. Extremities: No deformities, trace edema around lateral side of left ankle. ASSESSMENT/PLAN: 1. Closed fracture of left hip, sequela - ICD9: 905.3, ICD10: S72.002S (primary diagnosis) -Continue with plan to see physical therapy at [facility] tomorrow, provided patient with surgeon contact number. Encouraged her to call to schedule follow-up. 2. Acute blood loss anemia - ICD9: 285.1, ICD10: D62 -Blood counts were normal 5 days ago, repeat in 3 months to demonstrate stability. - CBC + DIFF 3. Hospital discharge follow-up - ICD9: V67.59, ICD10: Z09 -See above 4. Hypothyroidism, unspecified type - ICD9: 244.9, ICD10: E03.9 -Continue with levothyroxine as prescribed, check TSH in 3 months - COMP METABOLIC PANEL - TSH BLD Opal Caicedo APRN.LOADING MACHINE OPERATOR RTO in 3 months, sooner if needed. I spent a total of 32 minutes on the date of the service which included preparing to see the patient, [id number] patient care, completing clinical documentation, obtaining and/or reviewing separately obtained history, performing a medically appropriate examination, counseling and educating the patient/family/caregiver, and ordering medications, tests, or procedures. This note was partly generated using Circa voice recognition dictation and may contain some misspelled or inaccurate words missed on review. 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 N/A Reason for Outreach HCC or suspected condition Payer: Payor: HUMANA MEDICARE / Plan: HU[employer]NA MEDICARE PPO / Product Type: PPO / Care Gap Reviewed:: Annual Wellness visit Breast Cancer screening Colorectal Cancer Screening Reminder: Reminder note to check Health Maintenance for items below Health Maintenance items due: SHINGRIX VACCINE(1 of 2) Never done COVID-19 VACCINE(3 - Booster for Pfizer series) due on 08/07/2020 COLORECTAL CANCER SCREENING due on 12/23/2021 ADVANCE DIRECTIVE DISCUSSION Never done MAMMOGRAM due on 06/24/2022 Navigation Signature: Brandy Perry MA September 16, 2022 10:22 AM Allergies As of Date: 09/16/2022 Noted Allergy Reaction BIAXIN (CLARITHROMYCIN) 03/16/2005 16 - Unknown Comments: Doesn't remember, was a long time ago CODEINE 01/05/2007 Comments: unknown-long time ago NAPROXEN 11/23/2007 2 - Rash Comments: Generalized, nonpruritic RELAFEN (NABUMETONE) 03/16/2005 16 - Unknown Comments: Doesn't remember tylenol#3 [Other] 03/16/2005 16 - Unknown Comments: Doesn't remember Date Reviewed: 12/24/2021 Reviewed by: Sakshi Gorman APRN.LOADING MACHINE OPERATOR - Fully Assessed Reason for Visit: Population Health Navigation Outreach [3910] Cmt: HCC Prescriptions as of 09/16/2022 - levothyroxine (SYNTHROID) 75 mcg tablet TAKE 1 TABLET EVERY DAY - cyclobenzaprine (FLEXERIL) 5 mg tablet TAKE 1 TABLET THREE TIMES DAILY NEEDED - FLUoxetine (PROZAC) 40 mg capsule TAKE 1 CAPSULE EVERY DAY - omeprazole (PRILOSEC) 20 mg capsule Take 1 capsule by mouth daily before breakfast. 1/2 hr before meal. - alendronate (FOSAMAX) 70 mg tablet Take 1 tablet by mouth one time a week. - atorvastatin (LIPITOR) 20 mg tablet TAKE 1 TABLET EVERY DAY - triamcinolone (KENALOG) 0.025 % ointment Apply 1 application to affected area twice daily. - MULTIVITS W-FE,OTHER MIN/LUT (CENTRUM SILVER ULTRA WOMEN'S ORAL) Take 1 tablet by mouth once daily. - calcium carbonate 600 mg-cholecalciferol 400 units 600 mg-10 mcg (400 unit) tab Take 1 tablet by mouth once daily. - Cholecalciferol, Vitamin D3, 2,000 unit ORAL Cap Take 1 capsule by mouth once daily. 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 N/A Reason for Outreach HCC or suspected condition Payer: Payor: HUMANA MEDICARE / Plan: HU[employer]NA MEDICARE PPO / Product Type: PPO / Care Gap Reviewed:: Annual Wellness visit Breast Cancer screening Colorectal Cancer Screening Reminder: Reminder note to check Health Maintenance for items below Health Maintenance items due: SHINGRIX VACCINE(1 of 2) Never done COVID-19 VACCINE(3 - Booster for Pfizer series) due on 08/07/2020 COLORECTAL CANCER SCREENING due on 12/23/2021 ADVANCE DIRECTIVE DISCUSSION Never done MAMMOGRAM due on 06/24/2022 Navigation Signature: Brandy Perry MA September 16, 2022 10:22 AM [facility] 09-16-2022 History of Presen t illness Narrative POPULATION HEALTH NAVIGATION OUTREACH Action/I Patient is on HCC list for below gaps and needs appt to address : G83.9 - Paralysis, unspecified - [id number] Last Billed 06/22/2021
F33.9 - Major depressive disorder, recurrent episode (HCC) - [id number] Last Billed 12/24/2021
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
Care gaps/appts to address: Well exam COLORECTAL CANCER SCREENING MAMMOGRAM Outcomes: Spoke to pt- she is currently admitted to [facility] for a fall- will call upon discharge to [facility] follow up Patient Identified by Name and : YES, via phone Outreach Outcome/Action Spoke to patient / parent / legal guardian: Patient will return the call or ask for return call Did you use a PCP flex slot to schedule this appointment? N/A Reason for Outreach HCC or suspected condition Payer: Payor: HUMANA MEDICARE / Plan: HUMANA MEDICARE PPO / Product Type: PPO / Care Gap Reviewed:: Annual Wellness visit Breast Cancer screening Colorectal Cancer Screening Reminder: Reminder note to check Health Maintenance for items below Health Maintenance items due: SHINGRIX VACCINE(1 of 2) Never done COVID-19 VACCINE(3 - Booster for Pfizer series) due on 08/07/2020 COLORECTAL CANCER SCREENING due on 12/23/2021 ADVANCE DIRECTIVE DISCUSSION Never done MAMMOGRAM due on 06/24/2022 Navigation Signature: Brandy Perry MA September 16, 2022 10:22 AM documented in this encounter [facility] 08-10-2022 Note HNO ID: [id number] Author: Brandy Perry MA Service: ? 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 no mychart Patient Identified by Name and : NO Outreach Outcome/Action Unable to reach patient: Left message Did you use a PCP flex slot to schedule this appointment? N/A Reason for Outreach HCC or suspected condition Payer: Payor: HUMANA MEDICARE / Plan: HUMANA MEDICARE PPO / Product Type: PPO / Care Gap Reviewed:: Annual Wellness visit Breast Cancer screening Colorectal Cancer Screening Reminder: Reminder note to check Health Maintenance for items below Health Maintenance items due: SHINGRIX VACCINE(1 of 2) Never done COVID-19 VACCINE(3 - Booster for Pfizer series) due on 08/07/2020 COLORECTAL CANCER SCREENING due on 12/23/2021 ADVANCE DIRECTIVE DISCUSSION Never done MAMMOGRAM due on 06/24/2022 Navigation Signature: Brandy Perry MA August 10, 2022 2:27 PM [facility] 08-10-2022 History of Presen t illness Narrative POPULATION HEALTH NAVIGATION OUTREACH Action/FYI Patient is on HCC list for below gaps and needs appt to address : G83.9 - Paralysis, unspecified - [id number] Last Billed 06/22/2021
F33.9 - Major depressive disorder, recurrent episode (HCC) - [id number] Last Billed 12/24/2021
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
Care gaps/appts to address: Well exam COLORECTAL CANCER SCREENING MAMMOGRAM Outcomes: Left message for patient to call me back directly to schedule. no mychart Patient Identified by Name and : NO Outreach Outcome/Action Unable to reach patient: Left message Did you use a PCP flex slot to schedule this appointment? N/A Reason for Outreach HCC or suspected condition Payer: Payor: [employer] MEDICARE / Plan: HUMANA MEDICARE PPO / Product Type: PPO / Care Gap Reviewed:: Annual Wellness visit Breast Cancer screening Colorectal Cancer Screening Reminder: Reminder note to check Health Maintenance for items below Health Maintenance items due: SHINGRIX VACCINE(1 of 2) Never done COVID-19 VACCINE(3 - Booster for Pfizer series) due on 08/07/2020 COLORECTAL CANCER SCREENING due on 12/23/2021 ADVANCE DIRECTIVE DISCUSSION Never done MAMMOGRAM due on 06/24/2022 Navigation Signature: Brandy Perry MA August 10, 2022 2:27 PM documented in this encounter [facility] 08-10-2022 Note Patient Outreach (NE TNAV) BRIANNE COCHRAN ([id number]) 1945 F Date Time Provider Department 08/10/22 BRANDY PERRY During your visit today, we recorded the following information about you: Brandy Perry MA 08/10/2022 2:31 PM Signed POPULATION HEALTH NAVIGATION OUTREACH Action/ Patient is on HCC list for below gaps and needs appt to address : G83.9 - Paralysis, unspecified - [id number] Last Billed 06/22/2021 F33.9 - Major depressive disorder, recurrent episode (HCC) - [id number] Last Billed 12/24/2021 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 no mychart Patient Identified by Name and : NO Outreach Outcome/Action Unable to reach patient: Left message Did you use a PCP flex slot to schedule this appointment? N/A Reason for Outreach HCC or suspected condition Payer: Payor: HUMANA MEDICARE / Plan: HUMANA MEDICARE PPO / Product Type: PPO / Care Gap Reviewed:: Annual Wellness visit Breast Cancer screening Colorectal Cancer Screening Reminder: Reminder note to check Health Maintenance for items below Health Maintenance items due: SHINGRIX VACCINE(1 of 2) Never done COVID-19 VACCINE(3 - Booster for Pfizer series) due on 08/07/2020 COLORECTAL CANCER SCREENING due on 12/23/2021 ADVANCE DIRECTIVE DISCUSSION Never done MAMMOGRAM due on 06/24/2022 Navigation Signature: Brandy Perry MA August 10, 2022 2:27 PM Allergies As of Date: 08/10/2022 Noted Allergy Reaction BIAXIN (CLARITHROMYCIN) 03/16/2005 16 - Unknown Comments: Doesn't remember, was a long time ago CODEINE 01/05/2007 Comments: unknown-long time ago NAPROXEN 11/23/2007 2 - Rash Comments: Generalized, nonpruritic RELAFEN (NABUMETONE) 03/16/2005 16 - Unknown Comments: Doesn't remember tylenol#3 [Other] 03/16/2005 16 - Unknown Comments: Doesn't remember Date Reviewed: 12/24/2021 Reviewed by: Sakshi Gorman APRN.LOADING MACHINE OPERATOR - Fully Assessed Reason for Visit: Population Health Navigation Outreach [3910] Cmt: [facility] Prescriptions as of 08/10/2022 - levothyroxine (SYNTHROID) 75 mcg tablet TAKE 1 TABLET EVERY DAY - cyclobenzaprine (FLEXERIL) 5 mg tablet TAKE 1 TABLET THREE TIMES DAILY NEEDED - FLUoxetine (PROZAC) 40 mg capsule TAKE 1 CAPSULE EVERY DAY - omeprazole (PRILOSEC) 20 mg capsule Take 1 capsule by mouth daily before breakfast. 1/2 hr before meal. - alendronate (FOSAMAX) 70 mg tablet Take 1 tablet by mouth one time a week. - atorvastatin (LIPITOR) 20 mg tablet TAKE 1 TABLET EVERY DAY - triamcinolone (KENALOG) 0.025 % ointment Apply 1 application to affected area twice daily. - MULTIVITS W-FE,OTHER MIN/LUT (CENTRUM SILVER ULTRA WOMEN'S ORAL) Take 1 tablet by mouth once daily. - calcium carbonate 600 mg-cholecalciferol 400 units 600 mg-10 mcg (400 unit) tab Take 1 tablet by mouth once daily. - Cholecalciferol, Vitamin D3, 2,000 unit ORAL Cap Take 1 capsule by mouth once daily. 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 Mona Day LPN documented in this encounter [facility] 03-25-2022 Miscellaneous Notes Spoke with pt who agrees to have mailed to home address on file. Lisa Fairchild Ma Rx printed for parking chris Pelletier MD Routed to PCP to complete. Will call to see if pt wants mailed to home or seed cone picker, once complete. Lisa Fairchild Ma Type of form: renewal of disability placard Form received via delivered to wrong providers mailbox When form is completed, contact pt for further instructions. Form has been forwarded to provider's nurse. Nick Lamar LPN documented in this encounter [facility] 01-28-2022 Miscellaneous Notes OK to refill as ordered Vera Pelletier MD Patient has been identified by name and date of : Yes Last office visit in this department: 12/24/2021 RX INSTRUCTIONS: Patient aware RX will be sent to pharmacy. No need to notify patient. Patient phones requesting refills as follows: Requested Prescriptions Pending Prescriptions Disp Refills omeprazole (PRILOSEC) 20 mg capsule 30 capsule 3 Sig: Take 1 capsule by mouth daily before breakfast. 1/2 hr before meal. Please review and advise. Radha Prince documented in this encounter [facility] 12-24-2021 Instructions Sakshi Gorman APRN.BERNIE - 12/24/2021 11:27 AM EDT Get repeat fasting labs in 6 months, 06/24/2021 Recommend setting a bathroom schedule to see if incontinence improves. Schedule appointment for Mammogram in June. You can consider colonoscopy or stool testing next year. Continue to eat a balanced diet. Follow up in 6 months or sooner as needed. documented in this encounter [facility] 12-24-2021 History of Presen t illness Narrative This is a 76 year old female who presents today with: Patient presents with: 6 Month Exam HISTORY OF PRESENT ILLNESS: Brianne Cochran is a 76 year old female. Patient presents with: 6 Month Exam Here in the office for 6-month follow-up. Lipids: Taking Lipitor 20 mg daily. Watching diet and staying active. Denies any leg pain. Thyroid: Taking Synthroid 75 mcg daily. Denies any difficulty swallowing, palpitations, or heat/cold intolerances. ALIN/Depression: Taking Prozac 40 mg daily. Symptoms well controlled with medication. Denies any increased sadness, anxiety, SI/HI. Osteoporosis: Fosamax 70 mg weekly. Incontinence: Noticed about 1 month ago would have the urge to urinate quickly. Will feel like she cant get to the bathroom in time. Has had a couple of accidents. No dysuria or hematuria. Labs completed in June, CMP, lipids, CBC, TSH, and vitamin D all within normal limits. Colonoscopy: Occult stool testing in 2020 was normal. Mammogram: Due in June 2022, past mammogram have been normal. Vaccines: Would like flu vaccine today. PAST MEDICAL HISTORY: PAST MEDICAL HISTORY Diagnosis Date Adjustment disorder with depressed mood Breast calcifications 12/2016 Depression Iron deficiency anemia, unspecified Lateral sclerosis Migraine headache without aura <=1 per month as of May 2013 Myalgia and myositis, unspecified Osteoarthritis Spastic paresis (HCC) Unspecified hypothyroidism PAST SURGICAL HISTORY Procedure Laterality Date BREAST BIOPSY Left 12/16/2016 [facility]-Dr. Sandhu DELIVERY ONLY , low transverse x 2 PAST SURGICAL HISTORY OF cyst removed from ovaries ALLERGIES Biaxin [Clarithromycin], Codeine, Naproxen, Relafen [Nabumetone], and Tylenol#3 [Other] MEDICATIONS Current Outpatient Medications Medication Sig omeprazole (PRILOSEC) 20 mg capsule Take 1 capsule by mouth daily before breakfast. 1/2 hr before meal. cyclobenzaprine (FLEXERIL) 5 mg tablet Take 1 tablet by mouth three times daily as needed. alendronate (FOSAMAX) 70 mg tablet Take 1 tablet by mouth one time a week. atorvastatin (LIPITOR) 20 mg tablet TAKE 1 TABLET EVERY DAY levothyroxine (SYNTHROID) 75 mcg tablet TAKE 1 TABLET ONCE DAILY FLUoxetine HCl (PROZAC) 40 mg capsule Take 1 capsule by mouth once daily. triamcinolone (KENALOG) 0.025 % ointment Apply 1 application to affected area twice daily. MULTIVITS W-FE,OTHER MIN/LUT (CENTRUM SILVER ULTRA WOMEN'S ORAL) Take 1 tablet by mouth once daily. calcium carbonate 600 mg-cholecalciferol 400 units (CALCIUM 600 + D) 600 mg(1,500mg) -400 unit Tab Take 1 tablet by mouth once daily. Cholecalciferol, Vitamin D3, 2,000 unit ORAL Cap Take 1 capsule by mouth once daily. (Patient taking differently: Take 0.5 capsules by mouth once daily.) No current facility-administered medications for this visit. FAMILY HISTORY Problem Relation Age of Onset Psychiatry Father Cancer Father lymphoma Headache Father other (HTN) Father Cancer Mother brain mets Psychiatry Mother depression/anxiety Headache Mother other (HTN) Mother Colon Cancer Other none Coronary Artery Disease Other none Breast Cancer Sister Social History Tobacco Use Smoking status: Never Smokeless tobacco: Never Vaping Use Vaping Use: Never used Substance Use Topics Alcohol use: No Drug use: No REVIEW OF SYSTEMS GENERAL: No weight loss, malaise or fevers/chills HEENT: Negative for frequent or significant headaches, No changes in hearing or vision. NECK: Negative for lumps, goiter, pain and significant neck swelling RESPIRATORY: Negative for cough, hemoptysis, wheezing, dyspnea or shortness of breath CARDIOVASCULAR: Negative for chest pain, leg swelling, orthopnea, or palpitations GI: No nausea, vomiting, or diarrhea/constipation. No hematochezia/melena. No heartburn or reflux symptoms. : + Incontinence MUSCULOSKELETAL: Negative for joint pain or swelling. SKIN: Negative for lesions, rash, and itching ENDOCRINE: Negative for cold or heat intolerance, polyuria, polydipsia and goiter NEURO: No history of headaches, syncope, paralysis, seizures or tremors MOOD: Negative for depression, anxiety, or suicidal ideation. EXAM: BP 142/90 Pulse 85 Resp 16 Wt 62.6 kg (138 lb) SpO2 96% BMI 27.64 kg/m BP 119/90 Pulse 85 Resp 16 Wt 62.6 kg (138 lb) SpO2 96% BMI 27.64 kg/m PHYSICAL EXAM: General Appearance: Well appearing, alert, in no acute distress, well-hydrated, well nourished. Skin: Skin color, texture, turgor normal, no suspicious rashes or lesions. Head: Normocephalic, no masses, lesions, tenderness or abnormalities. Eyes: Anicteric sclera. Extraocular movements are intact. Lungs: Lungs clear to auscultation. No wheezing, rhonchi, rales. Heart: RRR without murmur, gallop, or rubs. No ectopy. Extremities: No deformities, edema, skin discoloration, clubbing or cyanosis. Good capillary refill. Peripheral Pulses: Normal, Capillary refill <2secs, strong peripheral pulses, Pulses palpable. Neurologic: Gait normal. Reflexes normal and symmetric. Sensation grossly intact. ASSESSMENT/PLAN: 1. Hyperlipidemia, mixed - ICD9: 272.2, ICD10: E78.2 (primary diagnosis) - to be determined upon return of lab results - Continue current medication. - Get repeat labs in 6 months. - COMP METABOLIC PANEL - LIPID PANEL BASIC 2. Episode of recurrent major depressive disorder, unspecified depression episode severity (HCC) - ICD9: 296.30, ICD10: F33.9 - Continue to take Prozac. 3. Osteoporosis, unspecified osteoporosis type, unspecified pathological fracture presence - ICD9: 733.00, ICD10: M81.0 - continue tx with alendronate (Fosamax) - Reviewed the need for Calcium and Vitamin D supplements and weight bearing exercise as tolerated - CBC + DIFF 4. Hypothyroidism, unspecified type - ICD9: 244.9, ICD10: E03.9 - Instructed patient on importance of taking on an empty stomach either first thing in the morning or at bedtime. Stable - Continue current medications - TSH BLD 5. Vitamin D deficiency - ICD9: 268.9, ICD10: E55.9 - Continue to take OTC supplement. - VITAMIN D 25 HYDROXY 6. Encounter for screening mammogram for malignant neoplasm of breast - ICD9: V76.12, ICD10: Z12.31 - [place] SCREENING 7. Urge incontinence - ICD9: 788.31, ICD10: N39.41 - Denied wanting further workup or treatment at this time. - Recommend setting a bathroom schedule to see if symptoms improve. - Discussed possible causes, if needed can refer to urology, Dr. Chaidez Local to Rob. 8. Encounter for immunization - ICD9: V03.89, ICD10: Z23 - VIS provided. - INFLUENZA SEASONAL QUADRIVALENT HIGH DOSE AGE 65+ Follow-up in 6 months or sooner as needed. Discussed treatment plan and patient voices understanding. Patient's questions answered appropriately. Medications and potential side effects were discussed and patient voices understanding. Sakshi Gorman APRN.LOADING MACHINE OPERATOR This note was partially generated using Lexy recognition system. Note was reviewed for accuracy. There may be minor misspellings or grammar miscues with [employer] voice recognition. documented in this encounter [facility] 12-07-2021 Miscellaneous Notes The following approved medication requests have been transmitted electronically. Requested Prescriptions Pending Prescriptions Disp Refills omeprazole (PRILOSEC) 20 mg capsule 30 capsule 3 Sig: Take 1 capsule by mouth daily before breakfast. 1/2 hr before meal. Opal Caicedo APRN.CNP Last office visit: 06/22/21 F/u scheduled: 12/23/21 Nettie Brandt Ma Patient has been identified by name and date of : Yes Patient phones for refill(s): Requested Prescriptions Pending Prescriptions Disp Refills omeprazole (PRILOSEC) 20 mg capsule 30 capsule 3 Sig: Take 1 capsule by mouth daily before breakfast. 1/2 hr before meal. Date of last office visit in primary care: 06-22-21 Last 2 Encounter Wt Readings: Date: Wt: 08/24/2021 63 kg (139 lb) 06/22/2021 63.2 kg (139 lb 4.8 oz) Previous labs/tests for medication: Not applicable Please advise. Thank you. Millie Sterling documented in this encounter [facility] 10-27-2021 Miscellaneous Notes The following approved medication requests have been transmitted electronically. Requested Prescriptions Pending Prescriptions Disp Refills cyclobenzaprine (FLEXERIL) 5 mg tablet 270 tablet 1 Sig: Take 1 tablet by mouth three times daily as needed. Opal Caicedo APRN.CNP Patient last visit with PCP 06/22/21 Follow up appointment scheduled 12/23/21 Hayley Bridges Ma Patient has been identified by name and date of : Yes Requested Prescriptions Pending Prescriptions Disp Refills cyclobenzaprine (FLEXERIL) 5 mg tablet 270 tablet 1 Sig: Take 1 tablet by mouth three times daily as needed. RX INSTRUCTIONS: Patient aware RX will be sent to pharmacy. No need to notify patient. Annetta Baig documented in this encounter [facility] 10-23-2021 Miscellaneous Notes The following approved medication requests have been transmitted electronically. Requested Prescriptions Pending Prescriptions Disp Refills alendronate (FOSAMAX) 70 mg tablet 12 tablet 3 Sig: Take 1 tablet by mouth one time a week. Opal Caicedo APRN.CNP Patient has been identified by name and date of : Yes Requested Prescriptions Pending Prescriptions Disp Refills alendronate (FOSAMAX) 70 mg tablet 12 tablet 3 Sig: Take 1 tablet by mouth one time a week. HEMANT-06/22/21 Labs-07/03/21 NOV-12/23/21 med filled 10/16/20 RX INSTRUCTIONS: Patient aware RX will be sent to pharmacy. No need to notify patient. Annetta Baig documented in this encounter [facility] 09-11-2021 Miscellaneous Notes The following approved medication requests have been transmitted electronically. Pending Prescriptions Disp Refills OMEPRAZOLE 20 MG CAPSULE,DELAYED RELEASE 30 capsule 3 Sig: Take 1 capsule by mouth daily before breakfast. 1/2 hr before meal. HENNA: No Opal Caicedo APRN.CNP Patient has been identified by name and date of : Yes Pending Prescriptions Disp Refills OMEPRAZOLE 20 MG CAPSULE,DELAYED RELEASE 90 capsule 2 Sig: Take 1 capsule by mouth daily before breakfast. 1/2 hr before meal. HENNA: No HEMANT-06/22/21 Labs-07/03/21 NOV-12/23/21 med filled 06/22/21 RX INSTRUCTIONS: Patient aware RX escripted to mail away pharmacy. No need to notify patient. Mandy Wilson Pss documented in this encounter [facility] 08-24-2021 Instructions Shanta Washington APRN.BERNIE - 08/24/2021 11:20 AM EDT Continue omeprazole 20mg daily on empty stomach and wait 30 min before eating Avoid NSAIDs (such as Advil, Ibuprofen, Excedrin, Mobic), tobacco, alcohol, carbonated beverages, caffeine, chocolate, tomato based sauces, spicy/fatty foods, and peppermint Avoid eating large meals. Avoid eating less than 3 hours before bed. Weight loss. Elevate the head of the bed 6 inches, or at least invest in a wedge pillow. documented in this encounter [facility] 08-24-2021 History of Presen t illness Narrative CHIEF COMPLAINT: Patient presents with: Heartburn: with sharp chest pain treats with omeprazole This consult was requested by Vera Pelletier MD for an opinion regarding heartburn . My final recommendations will be communicated to the requesting health care provider by way of the shared medical record for internal providers or letter via the [employer] for external providers. Brianne Cochran is a 75 year old female who presents for heartburn HPI: Patient was having heartburn, chest pain and nausea and was placed omeprazole 20mg daily in 06/2021 and patient reports this has been improving symptoms. She reports when she was having symptoms they would occur at bedtime. She reports in the past took omeprazole She denies dysphagia, heartburn, or regurgitation She reports at times will need to take NSAIDs for HALL - Denies taking this frequently. Denies having EGD done in the past Record Review: [facility] / Outside records reviewed. PAST MEDICAL HISTORY Diagnosis Date Adjustment disorder with depressed mood Breast calcifications 12/2016 Depression Iron deficiency anemia, unspecified Lateral sclerosis Migraine headache without aura <=1 per month as of May 2013 Myalgia and myositis, unspecified Osteoarthritis Spastic paresis (HCC) Unspecified hypothyroidism PAST SURGICAL HISTORY Procedure Laterality Date BREAST BIOPSY Left 12/16/2016 [facility]-Dr. Sandhu DELIVERY ONLY , low transverse x 2 PAST SURGICAL HISTORY OF cyst removed from ovaries Allergies: ALLERGIES Allergen Reactions Biaxin [Clarithromy* Unknown Doesn't remember, was a long time ago Codeine unknown-long time ago Naproxen Rash Generalized, nonpruritic Relafen [Nabumetone] Unknown Doesn't remember Tylenol#3 [Other] Unknown Doesn't remember Medications: atorvastatin (LIPITOR) 20 mg tablet TAKE 1 TABLET EVERY DAY levothyroxine (SYNTHROID) 75 mcg tablet TAKE 1 TABLET ONCE DAILY omeprazole (PRILOSEC) 20 mg capsule Take 1 capsule by mouth daily before breakfast. 1/2 hr before meal. FLUoxetine HCl (PROZAC) 40 mg capsule Take 1 capsule by mouth once daily. cyclobenzaprine (FLEXERIL) 5 mg tablet Take 1 tablet by mouth three times daily as needed. alendronate (FOSAMAX) 70 mg tablet Take 1 tablet by mouth one time a week. triamcinolone (KENALOG) 0.025 % ointment Apply 1 application to affected area twice daily. MULTIVITS W-FE,OTHER MIN/LUT (CENTRUM SILVER ULTRA WOMEN'S ORAL) Take 1 tablet by mouth once daily. calcium carbonate 600 mg-cholecalciferol 400 units (CALCIUM 600 + D) 600 mg(1,500mg) -400 unit Tab Take 1 tablet by mouth once daily. Cholecalciferol, Vitamin D3, 2,000 unit ORAL Cap Take 1 capsule by mouth once daily. 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 Are you taking any blood thinners? No Physical Examination: BP 132/80 Pulse 83 Ht 4' 11.252 (1.51m) Wt 139 lb (63.1kg) SpO2 98% BMI 27.84 kg/(m^2). Physical Exam Constitutional: Appearance: Normal appearance. She is normal weight. HENT: Head: Normocephalic and atraumatic. Eyes: Extraocular Movements: Extraocular movements intact. Pupils: Pupils are equal, round, and reactive to light. Cardiovascular: Rate and Rhythm: Normal rate and regular rhythm. Pulses: Normal pulses. Heart sounds: Normal heart sounds. Pulmonary: Effort: Pulmonary effort is normal. Breath sounds: Normal breath sounds. Abdominal: General: Abdomen is flat. Bowel sounds are normal. Palpations: Abdomen is soft. Musculoskeletal: General: Normal range of motion. Cervical back: Normal range of motion and neck supple. Skin: General: Skin is warm and dry. Neurological: General: No focal deficit present. Mental Status: She is alert and oriented to person, place, and time. Psychiatric: Mood and Affect: Mood normal. Behavior: Behavior normal. ASSESSMENT: Heart burn PLAN: Assessment/Plan (R12) Heart burn 1. Heart burn - Patient reports was having symptoms of heartburn, nausea and chest pain. Since starting omeprazole 20mg in June she reports her symptoms have improved. At this time will continue to monitor. Discussed GERD lifestyle changes - CONSULT TO GASTROENTEROLOGY Follow up in office 3 months/PRN. Recommended to please call office/go to ER if fever, chills, chest pain, SOB, diarrhea, nausea, emesis, worsening abdominal pain, dehydration occurs I spent a total of 30 minutes on the date of the service which included preparing to see the patient, [id number] patient care, completing clinical documentation, obtaining and/or reviewing separately obtained history, performing a medically appropriate examination, counseling and educating the patient/family/caregiver, ordering medications, tests, or procedures, communicating with other HCPs (not separately reported), independently interpreting results (not separately reported), communicating results to the patient/family/caregiver, and care coordination (not separately reported). Shanta Washington APRN.CNP DATE: 08/24/21 TIME: 10:30 AM documented in this encounter [facility] 08-17-2021 Miscellaneous Notes OK to refill as ordered Vera Pelletier MD Patient phones requesting refills as follows: Pending Prescriptions Disp Refills ATORVASTATIN 20 MG TABLET 90 tablet 2 Sig: TAKE 1 TABLET EVERY DAY HENNA: Yes HEMANT-06/22/21 Labs-06/22/21 NOV-12/23/21 med filled 12/24/20 ends Please review and advise. Mona Day LPN documented in this encounter [facility] 07-13-2021 Miscellaneous Notes TC to patient who verbalizes understanding of providers message below. No questions at this time. SERA Hardin Please inform patient that her vitamin D level is adequate. Continue on current supplement. Her TSH is at target range. Continue on current dose of Levothyroxine. Her complete blood count is normal, no anemia. Cholesterol panel is good. Other labs are fine. Opal Caicedo APRN.BERNIE documented in this encounter [facility] 06-24-2021 Miscellaneous Notes Letter mailed to pt notifying her of normal mammogram and recommendation below from PCP. Lisa Fairchild Ma Please notify patient that her mammogram is normal; recheck in 1 year Vera Pelletier MD documented in this encounter [facility] 06-24-2021 Miscellaneous Notes June 24, 2021 PID: [id number] Brianne Cochran [address] [place] [address] Dear Ms. Cochran, We are pleased to inform you that the results of your recent breast imaging exam on 06/24/2021 are normal. Early detection of cancer is very important. We also understand recommendations regarding breast cancer screening are controversial. Please discuss with your primary care provider which strategy is best for you and whether a mammogram is right for you. Your imaging studies and report will be kept on file at [facility] as part of your permanent medical record and are available for your continuing care. Thank you for allowing us to help in meeting your health care needs. Sincerely, Dr. Diaz Interpreting Radiologist [facility] (Normal over 40) documented in this encounter [facility] 06-24-2021 History of Presen t illness Narrative Radiology Service Progress Note PATIENT NAME: Brianne Cochran DATE OF SERVICE: June 24, 2021 TIME: 10:10 AM PATIENT IDENTITY VERIFICATION COMPLETED USING TWO (2) IDENTIFIERS: Name and Date of confirmed by patient verbally. FALL SCREENING: Has the patient had 2 falls in the last year or 1 fall with injury or currently using an Ambulatory Assistive Device (Walker, Cane, Wheelchair, Crutches, etc.)? Yes, Patient High Risk for Falls What interventions were put in place to prevent falls during this visit? Increased Observations by Caregivers Patient uses a cane PATIENT GENDER DATA: Female. status: : No status: NO. PATIENT RELEVANT IMPLANT DATA REVIEWED: Not Applicable RADIOLOGY DEPARTMENT: Mammography PERIPHERAL IV DATA: Not applicable SIGNED BY: Kinjal Fowler [employer] June 24, 2021 10:10 AM documented in this encounter [facility] 06-22-2021 History of Presen t illness Narrative Chief Complaint Patient presents with: 6 Month Exam HPI Brianne Cochran is a 75 year old female who presents here today for 6 month follow up. Denies any bowel or urinary issues. Has been having issues with heartburn, nausea, pain in the upper mid stomach off and on for the past few months. She has tried using Omeprazole which did help, has only been taking it when she needs it. Does not get the sx every day. She notices it more at night. She has tried to avoid eating too late at night and not drinking pop towards the night. Denies any trouble swallowing. No history of heartburn in the past. Thyroid: Taking Synthroid 75 mcg daily. No missed dosages. Lipid: taking Lipitor 20 mg daily, tolerating well, no myalgia or gi upset. Denies any regular exercise, tries to watch diet. She tried doing a little exercise and stated she hurt for days so doesn't think she wants to do that again. Depression/ALIN: Stable on Prozac 40 mg daily. Osteoporosis: Taking Fosamax 70 mg once a week. Has not done the Bone Density Test or Mammogram that was ordered. Past medical history, appointments, medications, allergies reviewed. Previous Medical History PAST MEDICAL HISTORY Diagnosis Date Adjustment disorder with depressed mood Breast calcifications 12/2016 Depression Iron deficiency anemia, unspecified Lateral sclerosis Migraine headache without aura <=1 per month as of May 2013 Myalgia and myositis, unspecified Osteoarthritis Spastic paresis (HCC) Unspecified hypothyroidism Previous Surgical History PAST SURGICAL HISTORY Procedure Laterality Date BREAST BIOPSY Left 12/16/2016 [facility]-Dr. Sandhu DELIVERY ONLY , low transverse x 2 PAST SURGICAL HISTORY OF cyst removed from ovaries Family History FAMILY HISTORY Problem Relation Age of Onset Psychiatry Father Cancer Father lymphoma Headache Father other (HTN) Father Cancer Mother brain mets Psychiatry Mother depression/anxiety Headache Mother other (HTN) Mother Colon Cancer Other none Coronary Artery Disease Other none Breast Cancer Sister Patient Allergies ALLERGIES Allergen Reactions Biaxin [Clarithromy* Unknown Doesn't remember, was a long time ago Codeine unknown-long time ago Naproxen Rash Generalized, nonpruritic Relafen [Nabumetone] Unknown Doesn't remember Tylenol#3 [Other] Unknown Doesn't remember Current Medications Current Outpatient Medications on File Prior to Visit Medication Sig FLUoxetine HCl (PROZAC) 40 mg capsule Take 1 capsule by mouth once daily. cyclobenzaprine (FLEXERIL) 5 mg tablet Take 1 tablet by mouth three times daily as needed. atorvastatin (LIPITOR) 20 mg tablet Take 1 tablet by mouth once daily. alendronate (FOSAMAX) 70 mg tablet Take 1 tablet by mouth one time a week. levothyroxine (SYNTHROID) 75 mcg tablet Take 1 tablet by mouth once daily. triamcinolone (KENALOG) 0.025 % ointment Apply 1 application to affected area twice daily. (Patient not taking: Reported on 12/17/2020 ) MULTIVITS W-FE,OTHER MIN/LUT (CENTRUM SILVER ULTRA WOMEN'S ORAL) Take 1 tablet by mouth once daily. calcium carbonate 600 mg-cholecalciferol 400 units (CALCIUM 600 + D) 600 mg(1,500mg) -400 unit Tab Take 1 tablet by mouth once daily. Cholecalciferol, Vitamin D3, 2,000 unit ORAL Cap Take 1 capsule by mouth once daily. (Patient taking differently: Take 0.5 capsules by mouth once daily.) No current facility-administered medications on file prior to visit. Social History Social History Tobacco Use Smoking status: Never Smoker Smokeless tobacco: Never Used Vaping Use Vaping Use: Never used Substance Use Topics Alcohol use: No Drug use: No EXAM: BP 118/74 Pulse 68 Resp 16 Wt 63.2 kg (139 lb 4.8 oz) BMI 28.08 kg/m General Appearance: Well appearing, alert, in no acute distress, well-hydrated, well nourished.. Neck: Supple, no adenopathy; thyroid symmetric, normal size. Lungs: Lungs clear to auscultation. No wheezing, rhonchi, rales.. Heart: RRR without murmur, gallop, or rubs. No ectopy. Abdomen: Normal abdominal exam, Abdomen soft, non-tender. Bowel sounds normal. No masses, organomegaly. Health Maintenance List SHINGRIX VACCINE(1 of 2) Never done MAMMOGRAM due on 01/02/2020 COVID-19 VACCINE(3 - Booster for Pfizer series) due on 11/12/2020 ADVANCE DIRECTIVE DISCUSSION Never done ANNUAL PCP TEAM CHRONIC DISEASE VISIT due on 12/17/2021 COLORECTAL CANCER SCREENING due on 12/23/2021 DIABETES SCREEN due on 12/18/2023 LIPID SCREEN due on 12/17/2025 DTAP,TDAP,TD(3 - Td or Tdap) due on 04/04/2028 BONE DENSITY Completed INFLUENZA Completed HEPATITIS C SCREENING Completed PNEUMOVAX AGE 65 AND OVER WITH 5YR LOOKBACK Completed MENINGOCOCCAL CONJUGATE Aged Out Data reviewed none ASSESSMENT/PLAN: 1. Episode of recurrent major depressive disorder, unspecified depression episode severity (HCC) - ICD9: 296.30, ICD10: F33.9 (primary diagnosis) Stable Continue current medications. 2. Hyperlipidemia, mixed - ICD9: 272.2, ICD10: E78.2 - to be determined upon return of lab results - Continue current medication. - Encouraged following a low fat, low cholesterol diet. - Discussed the benefits of regular aerobic exercise and weight loss. 3. Other specified hypothyroidism - ICD9: 244.8, ICD10: E03.8 - Instructed patient on importance of taking on an empty stomach either first thing in the morning or at bedtime. Continue current medications. 4. Other osteoporosis without current pathological fracture - ICD9: 733.09, ICD10: M81.8 - continue tx with alendronate (Fosamax) - Reviewed the need for Calcium and Vitamin D supplements and weight bearing exercise as tolerated 5. Vitamin D deficiency - ICD9: 268.9, ICD10: E55.9 Continue current medications. Check labs 6. Heart burn - ICD9: 787.1, ICD10: R12 New onset Consult Gastro for consideration for EGD, given new onset symptoms in 75 year old Rx given for Omeprazole 7. Anemia, unspecified type - ICD9: 285.9, ICD10: D64.9 Check CBC with Diff 8. Encounter for screening mammogram for malignant neoplasm of breast - ICD9: V76.12, ICD10: Z12.31 Mammogram order placed Follow up in 6 months. Will call with lab results. I agree with the Chief Complaint, ROS, and Past Histories independently gathered by the clinical account support manager and the remaining scribed note accurately describes my personal service to the patient. Medical Decision Making: Problems: Moderate: New problem with uncertain prognosis and 2+ stable chronic illnesses Data: Unique test(s) ordered: 3+ Risk: Moderate: Drug management Medical Decision Making Level: 4 - Moderate Vera Pelletier MD The documentation for this note was completed by Nettie Brandt Ma acting as scribe for Vera Pelletier MD. June 22, 2021 11:33 AM. Nettie Brandt Ma documented in this encounter [facility] 06-22-2021 Nurse Note Falls Risk Intake: 1. Patient age 65 or over, unsteady, or was advised to use special equipment to aid ambulation (i.e., cane or walker)? Yes 2. Has the patient had two falls in the past year, or one with injury? No 3. Does the patient need to use their hands when pushing up from chair, or hold onto furniture when ambulating at home? Yes 4. Is the patient worried about falling? Yes Please inform patient that answering Yes to one or more of the questions above can increase their risk of falling Patient is at greater risk for falls. Falls Instruction: Teaching document below - reviewed and given to patient [facility] - Preventing Falls and Maintaining Balance documented in this encounter [facility] Diagnosis Encounter for screening mammogram for malignant neoplasm of breast Other screening mammogram [facility] Diagnosis Hyperlipidemia, mixed Mixed hyperlipidemia [facility] Diagnosis Heart burn Heartburn [facility] Diagnosis Osteoporosis, unspecified osteoporosis type, unspecified pathological fracture presence [facility] Diagnosis Primary lateral sclerosis (HCC) Primary lateral sclerosis [facility] Diagnosis Heart burn Heartburn [facility] Diagnosis Hyperlipidemia, mixed- Primary Mixed hyperlipidemia Episode of recurrent major depressive disorder, unspecified depression episode severity (HCC) Osteoporosis, unspecified osteoporosis type, unspecified pathological fracture presence Hypothyroidism, unspecified type Vitamin D deficiency Unspecified vitamin D deficiency Encounter for screening mammogram for malignant neoplasm of breast Other screening mammogram Urge incontinence Encounter for immunization Need for other specified prophylactic vaccination against single bacterial disease [facility] Diagnosis Encounter for screening mammogram for breast cancer documented in this encounter [facility] note* Diagnosis Osteoporosis, unspecified osteoporosis type, unspecified pathological fracture presence documented in this encounter [facility] note* Diagnosis Heart burn- Primary Heartburn documented in this encounter [facility] note* Diagnosis Closed fracture of left hip, sequela- Primary Acute blood loss anemia Acute posthemorrhagic anemia Hyperlipidemia, mixed Mixed hyperlipidemia Episode of recurrent major depressive disorder, unspecified depression episode severity (HCC) Osteoporosis, unspecified osteoporosis type, unspecified pathological fracture presence Other specified hypothyroidism Screening for colon cancer Special screening for malignant neoplasms, colon Encounter for immunization Need for other specified prophylactic vaccination against single bacterial disease documented in this encounter [facility] note* Diagnosis Primary lateral sclerosis (HCC) Primary lateral sclerosis documented in this encounter [facility] for referral (narrative)* Diagnostic Procedure Only (Routine) - Authorized Specialty Diagnoses / Procedures Referred By Farshad huggins Referred To Contact [facility] Diagnoses Encounter for screening mammogram for malignant neoplasm of breast Procedures GENOVEVA SCREENING SCREENING MAMMOGRAPHY BI 2-VIEW BREAST INC CAD Vera Pelletier MD [address] [place] [id number] [facility] [address] [facility] [place] [place] [address] Referral ID Status Reason Start Date Expiration Date Visits Requested Visits Authorized [id number] Authorized Auto-Generat ed Referral 06/22/2021 07/22/2022 1 1 * Consult, Test, Treat (Routine) - Authorized Specialty Diagnoses / Procedures Referred By Farshad huggins Referred To Contact Gastroenterology Diagnoses Heart burn Procedures CONSULT TO GASTROENTEROLOGY OFFICE/OUTPATIENT [facility] 60-74 MINUTES Vera Pelletier MD [address] [place] [id number] Referral ID Status Reason Start Date Expiration Date Visits Requested Visits Authorized [id number] Authorized PCP Requested Referral 06/22/2021 06/22/2022 1 1 [facility] for referral (narrative)* Diagnostic Procedure Only (Routine) - Closed Specialty Diagnoses / Procedures Referred By Farshad huggins Referred To Contact [facility] Diagnoses Encounter for screening mammogram for malignant neoplasm of breast Procedures GENOVEVA SCREENING SCREENING MAMMOGRAPHY BI 2-VIEW BREAST INC Vera Mobley MD [address] [place] [address] [facility] [address] [place] [address] Referral ID Status Reason Start Date Expiration Date V isits Requested Visits Authorized [id number] Closed Auto-Generate d Referral 06/22/2021 07/22/2022 1 1 T [facility] for referral (narrative)* Diagnostic Procedure Only (Routine) - Pending Review Specialty Diagnoses / Procedures Referred By Farshad t Referred To Contact [facility] Diagnoses Encounter for screening mammogram for malignant neoplasm of breast Procedures GENOVEVA SCREENING SCREENING MAMMOGRAPHY BI 2-VIEW BREAST INC Sakshi Burris APRN.CNP [address] [place] [address] [facility] [address] [address] Referral ID Status Reason Start Date Expiration Date Visits Requested Visits Authorized [id number] Pending Review Auto-Generat ed Referral 06/24/2022 01/23/2023 1 1 T [facility] for referral (narrative)* Diagnostic Procedure Only (Routine) - Pending Review Specialty Diagnoses / Procedures Referred By Olgaac t Referred To Contact [facility] Diagnoses Encounter for screening mammogram for breast cancer Procedures GENOVEVA SCREENING SCREENING MAMMOGRAPHY BI 2-VIEW BREAST INC Vera Mobley MD [address] [place] [address] [facility] [address] [place] [address] Referral ID Status Reason Start Date Expiration Date Visits Requested Visits Authorized [id number] Pending Review Auto-Generat ed Referral 12/01/2022 12/31/2023 1 [facility] Diagnostic Procedure Only (Routine) - Closed Specialty Diagnoses / Procedures Referred By Contac t Referred To Contact [facility] Diagnoses Encounter for screening mammogram for malignant neoplasm of breast Procedures GENOVEVA SCREENING SCREENING MAMMOGRAPHY BI 2-VIEW BREAST INC CAD Vera Pelletier MD [address] [place] [address] [facility] [address] [place] [address] Referral ID Status Reason Start Date Expiration Date V isits Requested Visits Authorized [id number] Closed Auto-Generate d Referral 06/22/2021 07/22/2022 1 1 [facility] Summary Purpose Family History No Family History Records Found Advance Directives No Advanced Directives Records Found Additional Source Comments Source Comments (unrecognize d section and content) In the event this informatio n is protected by the Federal Confidentiality of Alcohol and Drug Abuse Patient Records regulations: The Federal rules restrict any use of the information to criminally investigate or prosecute any alcohol or drug abuse patient.[facility] the event this information is protected by the Federal Confidentiality of Alcohol and Drug Abuse Patient Records regulations: The Federal rules restrict any use of the information to criminally investigate or prosecute any alcohol or drug abuse patient.[facility] CampusIn the event this information is protected by the Federal Confidentiality of Alcohol and Drug Abuse Patient Records regulations: The Federal rules restrict any use of the information to criminally investigate or prosecute any alcohol or drug abuse patient.[facility] CampusIn the event this information is protected by the Federal Confidentiality of Alcohol and Drug Abuse Patient Records regulations: The Federal rules restrict any use of the information to criminally investigate or prosecute any alcohol or drug abuse patient.[facility] CampusIn the event this information is protected by the Federal Confidentiality of Alcohol and Drug Abuse Patient Records regulations: The Federal rules restrict any use of the information to criminally investigate or prosecute any alcohol or drug abuse patient.[facility] CampusIn the event this information is protected by the Federal Confidentiality of Alcohol and Drug Abuse Patient Records regulations: The Federal rules restrict any use of the information to criminally investigate or prosecute any alcohol or drug abuse patient.[facility] CampusIn the event this information is protected by the Federal Confidentiality of Alcohol and Drug Abuse Patient Records regulations: The Federal rules restrict any use of the information to criminally investigate or prosecute any alcohol or drug abuse patient.[facility] CampusIn the event this information is protected by the Federal Confidentiality of Alcohol and Drug Abuse Patient Records regulations: The Federal rules restrict any use of the information to criminally investigate or prosecute any alcohol or drug abuse patient.[facility] CampusIn the event this information is protected by the Federal Confidentiality of Alcohol and Drug Abuse Patient Records regulations: The Federal rules restrict any use of the information to criminally investigate or prosecute any alcohol or drug abuse patient.[facility] CampusIn the event this information is protected by the Federal Confidentiality of Alcohol and Drug Abuse Patient Records regulations: The Federal rules restrict any use of the information to criminally investigate or prosecute any alcohol or drug abuse patient.[facility] CampusIn the event this information is protected by the Federal Confidentiality of Alcohol and Drug Abuse Patient Records regulations: The Federal rules restrict any use of the information to criminally investigate or prosecute any alcohol or drug abuse patient.[facility] CampusIn the event this information is protected by the Federal Confidentiality of Alcohol and Drug Abuse Patient Records regulations: The Federal rules restrict any use of the information to criminally investigate or prosecute any alcohol or drug abuse patient.[facility] CampusIn the event this information is protected by the Federal Confidentiality of Alcohol and Drug Abuse Patient Records regulations: The Federal rules restrict any use of the information to criminally investigate or prosecute any alcohol or drug abuse patient.[facility] CampusIn the event this information is protected by the Federal Confidentiality of Alcohol and Drug Abuse Patient Records regulations: The Federal rules restrict any use of the information to criminally investigate or prosecute any alcohol or drug abuse patient.[facility] CampusIn the event this information is protected by the Federal Confidentiality of Alcohol and Drug Abuse Patient Records regulations: The Federal rules restrict any use of the information to criminally investigate or prosecute any alcohol or drug abuse patient.[facility] CampusIn the event this information is protected by the Federal Confidentiality of Alcohol and Drug Abuse Patient Records regulations: The Federal rules restrict any use of the information to criminally investigate or prosecute any alcohol or drug abuse patient.[facility] CampusIn the event this information is protected by the Federal Confidentiality of Alcohol and Drug Abuse Patient Records regulations: The Federal rules restrict any use of the information to criminally investigate or prosecute any alcohol or drug abuse patient.[facility] CampusIn the event this information is protected by the Federal Confidentiality of Alcohol and Drug Abuse Patient Records regulations: The Federal rules restrict any use of the information to criminally investigate or prosecute any alcohol or drug abuse patient.[facility] the event this information is protected by the Federal Confidentiality of Alcohol and Drug Abuse Patient Records regulations: The Federal rules restrict any use of the information to criminally investigate or prosecute any alcohol or drug abuse patient.[facility] CampusIn the event this information is protected by the Federal Confidentiality of Alcohol and Drug Abuse Patient Records regulations: The Federal rules restrict any use of the information to criminally investigate or prosecute any alcohol or drug abuse patient.[facility] CampusIn the event this information is protected by the Federal Confidentiality of Alcohol and Drug Abuse Patient Records regulations: The Federal rules restrict any use of the information to criminally investigate or prosecute any alcohol or drug abuse patient.[facility] CampusIn the event this information is protected by the Federal Confidentiality of Alcohol and Drug Abuse Patient Records regulations: The Federal rules restrict any use of the information to criminally investigate or prosecute any alcohol or drug abuse patient.[facility] CampusIn the event this information is protected by the Federal Confidentiality of Alcohol and Drug Abuse Patient Records regulations: The Federal rules restrict any use of the information to criminally investigate or prosecute any alcohol or drug abuse patient.[facility] CampusIn the event this information is protected by the Federal Confidentiality of Alcohol and Drug Abuse Patient Records regulations: The Federal rules restrict any use of the information to criminally investigate or prosecute any alcohol or drug abuse patient.[facility] CampusIn the event this information is protected by the Federal Confidentiality of Alcohol and Drug Abuse Patient Records regulations: The Federal rules restrict any use of the information to criminally investigate or prosecute any alcohol or drug abuse patient.[facility] Reason for Visit (unrecogniz ed section and content) Reason Comments Results Reason Comments Refill Request Reason Comments 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 Specialty Diagnoses / Procedures Referred By Farshad huggins Referred To Contact Gastroenterology Diagnoses Heart burn Procedures CONSULT TO GASTROENTEROLOGY OFFICE/OUTPATIENT [facility] MDM 60-74 MINUTES Vera Pelletier MD [address] [place] [address] Referral ID Status Reason Start Date Expiration Date V isits Requested Visits Authorized [id number] Closed PCP Requested Referral 06/22/2021 06/22/2022 1 1 Reason Onset Date Comments Refill Request 09/11/2021 Reason Onset Date Comments Refill Request 10/23/2021 Reason Onset Date Comments Refill Request 10/27/2021 Reason Onset Date Comments Refill Request 12/05/2021 Reason Comments 6 Month Exam Reason Onset Date Comments Refill Request 01/28/2022 Reason Comments Forms Reason Onset Date Comments Population Health Navigation Outreach 08/10/2022 HCC Reason Onset Date Comments Population Health Navigation Outreach 09/16/2022 HCC Reason Onset Date Comments Population Health Navigation Outreach 11/08/2022 [employer] Reason Onset Date Comments Refill Request 12/09/2022 Reason Comments Orders Medication Refill. Reason Comments Follow Up 3 month follow up Care Teams (unrecognized sec tion and content) Brand Communications Manager Relationship Specialty Start Date End Date Vera Pelletier MD [address] [place], [place] [id number] PCP - General Family Practice 12/06/11 Brand Communications Manager Relationship Specialty Start Date End Date Vera Pelletier MD [address] [place] [address] PCP - General Family Practice 12/06/11 Brand Communications Manager Relationship Specialty Start Date End Date Vera Pelletier MD [address] [place] [address] PCP - General Family Practice 12/06/11 Brand Communications Manager Relationship Specialty Start Date End Date Vera Pelletier MD [address] [place], [place] [id number] PCP - General Family Practice 12/06/11 Brand Communications Manager Relationship Specialty Start Date End Date Vera Pelletier MD [address] [place] [address] PCP - General Family Practice 12/06/11 Brand Communications Manager Relationship Specialty Start Date End Date Vera Pelletier MD [address] [place] [address] PCP - General Family Medicine 12/06/11 Brand Communications Manager Relationship Specialty Start Date End Date Vera Pelletier MD [address] [place] [address] PCP - General Family Medicine 12/06/11 Brand Communications Manager Relationship Specialty Start Date End Date Vera Pelletier MD [address] [place] [address] PCP - General Family Medicine 12/06/11 Brand Communications Manager Relationship Specialty Start Date End Date Vera Pelletier MD [address] [place] [address] PCP - General Family Medicine 12/06/11 Brand Communications Manager Relationship Specialty Start Date End Date Vera Pelletier MD [address] [place] [address] PCP - General Family Medicine 12/06/11 Brand Communications Manager Relationship Specialty Start Date End Date Vera Pelletier MD [address] [place] [address] PCP - General Family Medicine 12/06/11 Brand Communications Manager Relationship Specialty Start Date End Date Vera Pelletier MD [address] [place] [address] PCP - General Family Medicine 12/06/11 Brand Communications Manager Relationship Specialty Start Date End Date Vera Pelletier MD [address] [place], [place] [id number] PCP - General Family Medicine 12/06/11 Brand Communications Manager Relationship Specialty Start Date End Date Vera Pelletier MD [address] [place], [place] [id number] PCP - General Family Medicine 12/06/11 Brand Communications Manager Relationship Specialty Start Date End Date Vera Pelletier MD [address] [place], [place] [id number] PCP - General Family Medicine 12/06/11 Brand Communications Manager Relationship Specialty Start Date End Date Vera Pelletier MD [address] [place], [place] [id number] PCP - General Family Medicine 12/06/11 INFORMATION SOURCE (unrecogn ized section and content) FOR RECORDS PERTAINING TO PATIENTS WHO ARE OR HAVE BEEN ENROLLED IN A CHEMICAL DEPENDENCY/SUBSTANCEABUSE PROGRAM, SOME INFORMATION MAY BE OMITTED. This clinical summary was aggregated from multiple sources. Caution should be exercised in using it in the provision of clinical care. This summary normalizes information from multiple sources, and as a consequence, information in this document may materially change the coding, format and clinical context of patient data. In addition, data may be omitted in some cases. CLINICAL DECISIONS SHOULD BE BASED ON THE PRIMARY CLINICAL RECORDS. [facility] [employer] [facility]. provides no warranty or guarantee of the accuracy or completeness of information in this document.
== END 2023-05-25 17:36 | disposition home or self-care (01) ==
PROVIDERS: Emergency Provider Emergency Medicine; PCP Family Medicine; Visit Provider Emergency Medicine
DX: R42 Dizziness and giddiness (principal); I48.0 Paroxysmal atrial fibrillation; I10 Essential (primary) hypertension; E78.5 Hyperlipidemia, unspecified; M81.0 Age-related osteoporosis without current pathological fracture; K21.9 Gastro-esophageal reflux disease without esophagitis; F41.8 Other specified anxiety disorders; E03.9 Hypothyroidism, unspecified; Z79.899 Other long term (current) drug therapy; Z90.6 Acquired absence of other parts of urinary tract; Z96.641 Presence of right artificial hip joint; H61.23 Impacted cerumen, bilateral
CPT/HCPCS: 70450; 80048; 85025; 93005; 99283; A4216

== ENCOUNTER 2023-11-03 11:10 | Inpatient (IN) | payer MEDICARE, SELFPAY ==
[2023-11-03 11:10] VITALS: BP 124/74; PULSE 99; RESP 12; TEMP 36.6; O2SAT 96
--- NOTE | 2023-11-03 11:41 | EDS_ITS ---
HPI History of Present Illness Chief Complaint: Weakness Detail of Chief Complaint: Generalized weakness. Fatigue. Informant: patient and family Onset/Context/Timing Onset: Today and Yesterday Context: Gradual Onset Timing: Continuous Current Severity: Moderate Maximum Severity: Moderate Narrative Narrative: 78-year-old female history of eighth fib and hypothyroidism anemia. 62 send really felt well last 2 days complain generalized weakness and fatigue. Denies any vomiting had mild nausea yesterday it is resolved. No diarrhea or fever. No melena or dysuria. No chest pain or shortness of breath. Said today she does try to walk out of her house and she has so weak she had to have help. Prior similar symptoms: No Recent Illness/Hospitalization: No PFSH PFSH Medical History Non-smoker Sleep apnea Hypertension Migraines Chronic anemia Obesity Anxiety and depression GERD (gastroesophageal reflux disease) HLD (hyperlipidemia) PAF (paroxysmal atrial fibrillation) Fibromyalgia Osteoporosis Paroxysmal atrial fibrillation T12 compression fracture Closed right hip fracture Syncope Hypothyroid Home Medications ?Medication ?Instructions ?Recorded ?Last Taken ?Type alendronate 70 mg tablet 70 mg PO UD osteoporosis 09/07/22 Unknown History atorvastatin 20 mg tablet 20 mg PO QHS HLD 09/07/22 09/09/22 History fluoxetine 40 mg capsule 40 mg PO DAILY depression 09/07/22 09/10/22 History levothyroxine 75 mcg tablet 75 mcg PO DAILY thyroid 09/07/22 09/10/22 History omeprazole 20 mg capsule,delayed 20 mg PO DAILY GERD 09/07/22 09/10/22 History release calcium carbonate 500 mg (2.5 x 200 mg calcium (500 09/10/22 09/10/22 Rx mg)) PO TIDCM supplement #30 tabs oxycodone 5 mg tablet 5 mg PO Q6H PRN PRN Pain Score 09/28/22 Unknown Rx 1-10 7 days #28 tabs sennosides 8.6 mg-docusate sodium 2 tab PO BID 30 days #120 tabs 09/28/22 Unknown Rx 50 mg tablet (Stool Softener-Stimulant Laxative) meclizine 25 mg chewable tablet 25 mg PO TID PRN dizziness #14 tabs 05/25/23 Unknown Rx (Antivert) Allergy/AdvReac Type Severity Reaction Status Date / Time codeine Allergy Unknown Verified 11/03/23 11:11 codeine phosphate (From AdvReac Unknown Verified 11/03/23 11:11 Tylenol-Codeine #3) nabumetone (From Relafen) AdvReac Unknown Verified 11/03/23 11:11 naproxen AdvReac Unknown Verified 11/03/23 11:11 Family History Mother Cancer Father Cancer Surgical History S/P ORIF (open reduction internal fixation) fracture History of section H/O ovarian cystectomy History of total right hip replacement S/P kyphoplasty S/P ORIF (open reduction internal fixation) fracture Social History household members: spouse Smoking Status: Never smoker alcohol intake: never substance use type: does not use ROS ROS ED ROS Narrative Generalized weakness. Nausea resolved. No dysuria. No fever. No melena. No diarrhea. Review of Systems ROS Unobtainable: Denies due to encephalopathy Constitutional Constitutional ED: Denies chills or fever(s) Eyes Eyes: Denies blurry vision ENT ENT ED: Denies ear pain Cardiovascular Cardiovascular: Denies chest pain Respiratory/Chest Respiratory/Chest: Denies cough or dyspnea Gastrointestinal Gastrointestinal: Reports nausea; Denies abdominal pain, diarrhea or vomiting Genitourinary Genitourinary ED: Denies dysuria or hematuria Musculoskeletal Musculoskeletal: Denies arthralgias or back pain Integumentary Denies abscess or Abrasions Neurologic Neurologic: Denies headache(s) Psychiatric Psychiatric: Denies anxiety or depression Endocrine Endocrinology: Denies cold intolerance Hematologic/Lymphatic Hematologic/Lymphatic: Reports none Allergic/Immunologic Allergic/Immunologic ED: Denies mouth swelling, tongue swelling or urticaria EXAM Physical Exam Narrative Exam Narrative: 78-year-old female no acute distress sitting in bed. Family at bedside. Vital signs are stable afebrile. Pulse ox 96% on room air no signs hypoxia. H EENT exam unremarkable. No droop. No trauma mildly dry mucous membranes. Normal speech. Neck nontender no lymphadenopathy. Lungs clear to auscultation bilaterally. Heart regular rhythm no murmur. Chest wall nontender. Abdomen soft nontender. Moving all 4 extremities. 5 out of 5 optics engineer strength. Dorsi plantarflexion intact. Fingertip to nose within normal limits. She can lift either leg. Neurologically she is awake alert. Normal speech no droop. NIH 0. But she is generally weak all over. Const Vital Signs: 11/03/23 11:10 11/03/23 11:21 11/03/23 13:11 Temperature 98 F Temperature Source Temporal Pulse Rate 99 86 Respiratory Rate 12 17 Respiratory Effort Normal Non-Labored Respiratory Pattern Normal Blood Pressure 124/74 H 148/86 H Blood Pressure Mean 90 106 Pulse Ox 96 96 Oxygen Delivery Method Room Air Positive well nourished and well developed; Negative for obese, cachectic, contractures or unkempt General Appearance ED: well developed and NAD; Negative for unkempt, cachectic, contractures, cyanotic, diaphoretic or pallor Nutritional Appearance: Negative for cachectic or obese HEENT Reports dry mucous membranes; Denies moist mucous membranes Negative for trauma or tenderness Mouth ED: Yes dry mucous membranes Mouth: dry mucous membranes Eyes PERRL and EOMs intact bilaterally General Eye ED: Negative for pale conjunctiva or scleral icterus Neck no lymphadenopathy, supple and no JVD General: Negative for tenderness Lymph Lymphatic: Negative for other Chest Wall inspection of chest normal and palpation of chest normal Chest: Negative for other Resp normal respiratory effort and clear to auscultation bilaterally Effort and Inspection: Negative for retractions Auscultation: Negative for rales, rhonchi, wheezes or diminished lung sounds Cardio regular rate, regular rhythm, S1 normal heart sound, S2 normal heart sound and no murmurs Rhythm: Negative for abnormal rhythm GI normal to inspection, nondistended, normoactive bowel sounds, non-tender, non- distended and no masses Inspection: Negative for abdominal distention Palpation: soft; Negative for tender, guarding, mass or rebound tenderness present Back/Spine no CVA tenderness General Back: Negative for CVA tenderness Cervical Spine: Negative for cervical spine tenderness Thoracic Spine / Upper Back: Negative for thoracic spinal tenderness or paraspinal muscle tenderness Lumbar Spine / Lower Back: Negative for lumbar spinal tenderness Extremity normal to inspection General Extremety ED: Negative for edema or tenderness General Extremity: Negative for edema Neuro oriented x3 and CN's II-XII intact bilaterally Sensorium / Orientation: alert; Negative for orientation impaired or lethargic Motor Exam: strength 5/5 throughout; Negative for general weakness or strength abnormal Psych mental status grossly normal Appearance: Negative for unkempt Attitude: No agitated Mood & Affect: Negative for depressed or anxious Skin no rashes or lesions noted and no wounds General Skin Exam: Negative for jaundice or pallor Lesions: No lesion noted Rashes: No rashes noted Trauma: Negative for abrasion Wounds: Negative for wounds noted MDM MDM MDM Narrative Medical decision making narrative: 78-year-old female generalized weakness and fatigue. Exam benign but she does seem generally weak. No acute signs of stroke. She may be dehydrated. Screening labs to be obtained and she will be treated with a liter normal saline. Rule out UTI other signs of infection versus electrolyte abnormalities versus other etiologies. Repeat exam unchanged at 2:42 PM. Given the amount of weakness she has I do not think she can be discharged home. She cannot really get up and walk. Due to the UTI she will be treated with IV Rocephin. Urine culture was sent. She has been given IV fluids. History & Record Review Discussion w/independent historian: Patient Additional record(s) reviewed:: Prior inpatient record, Prior outpatient record, Prior ED visit and Prior labs Lab Data Attestation: I reviewed the patient's lab results. Lab results narrative: CBC white count 7. H&H 13 and 41. Platelets 334. Electrolytes show gap 8. Normal BUN and creatinine. Glucose 110. Troponin is normal at 8. Urine looks infected with positive nitrates 10-25 white cells and 4+ bacteria. Culture will be sent. Due to her generalized weakness she will be admitted. Labs: Laboratory Results - last 24 hr 11/03/23 11/03/23 11:50 12:44 WBC 7.2 RBC 4.44 Hgb 13.3 Hct 41.6 MCV 93.7 MCH 30.0 MCHC 32.0 RDW Std Deviation 42.7 RDW Coeff of Serafin 12.3 Plt Count 334 MPV 10.2 Immature Gran % (Auto) 0.100 Neut % (Auto) 68.9 Lymph % (Auto) 20.2 [place] % (Auto) 6.6 Eos % (Auto) 3.2 Baso % (Auto) 1.0 Absolute Neuts (auto) 4.9 Absolute Lymphs (auto) 1.45 Nucleated RBC % 0 Sodium 140 Potassium 3.7 Chloride 106 Carbon Dioxide 26.0 Anion Gap 8 BUN 16 Creatinine 0.85 Est GFR (MDRD) Af Amer 84 Est GFR (MDRD) Non-Af 69 BUN/Creatinine Ratio 18.9 Glucose 110 H Calcium 9.3 Troponin I High Sens 8 Urine Color Yellow Urine Clarity Cloudy Urine pH 7.0 Ur Specific [place] 1.010 Urine Protein 15 H Urine Glucose (UA) Normal Urine Ketones Negative Urine Occult Blood 50 H Urine Nitrite Positive H Urine Bilirubin Negative Urine Urobilinogen Normal Ur Leukocyte Esterase 100 H Urine RBC 0-5 SEEN Urine WBC 10-25 SEEN Ur Squamous Epith Cells 0-5 SEEN Urine Bacteria 4+ Urine Mucus RARE Radiography Chest X-Ray - ED: 1 View, Read by ED Physician, Read by Radiologist, Heart, Lungs, Mediastinum, Bony Structures, No Acute Disease and Chronic Changes Diagnostic Testing: Clinical Impression(s) from Imaging Studies Chest X-Ray 11/03/23 11:55 IMPRESSION: Stable chest with no acute or active cardiopulmonary disease. Electronically Signed: Duane Ya MD at 12:18 EDT Reading Location ID and State: [facility] / [place] , Service support , Chest x-ray portable, single view interpreted both by myself and the radiologist shows no acute abnormality. Normal cardiac silhouette. Normal lung myers. Rhythm Strip Rhythm Strip: Sinus Rhythm Rate: 90 Ectopy: None EKG Initial EKG: Attestation: I personally reviewed and interpreted this EKG as follows: Interpretation: Sinus Rhythm and No Acute Injury Pattern Comments: Normal sinus rhythm rate of 90 no acute signs of NC nor ischemia. Discharge Plan Triage Chief Complaint: Weakness ED Provider: Carroll Weaver Dx/Rx/DC Orders Clinical Impression: Generalized weakness, Acute UTI, Unable to ambulate, History of atrial fibrillation Prescriptions: No Action fluoxetine 40 mg capsule 40 mg PO DAILY atorvastatin 20 mg tablet 20 mg PO QHS alendronate 70 mg tablet 70 mg PO UD Rx Instructions: weekly. omeprazole 20 mg capsule,delayed release(DR/EC) 20 mg PO DAILY levothyroxine 75 mcg tablet 75 mcg PO DAILY calcium carbonate 200 mg calcium (500 mg) Tablet,Chewable 500 mg PO TIDCM Qty: 30 0RF sennosides-docusate sodium [Stool Softener-Stimulant Laxat] 8.6-50 mg Tablet 2 tab PO BID 30 Days Qty: 120 0RF oxycodone 5 mg Tablet 5 mg PO Q6H PRN PRN (Reason: Pain Score 1-10) 7 Days Qty: 28 0RF meclizine [Antivert] 25 mg tablet,chewable 25 mg PO TID PRN (Reason: dizziness) Qty: 14 0RF Primary Care Provider: Jose Carlos Pompa Referrals: Jose Carlos Pompa MD [Primary Care Provider] - Print Language: Ukrainian Disposition Disposition: Acute Care Hospital [facility]
[2023-11-03] MEDS: 0.9% Normal Saline (1000mL) 1,000 ML 1000 ML IV (11:51)
--- NOTE | 2023-11-03 11:55 | RAD_ITS ---
STUDY: X-RAY CHEST REASON FOR EXAM: Female, 78 years old. Weakness. TECHNIQUE: Single frontal view of the chest. COMPARISON: September 08, 2022 FINDINGS: Stable mild hyperinflation. There is no demonstrated pleural abnormality. Mild cardiomegaly unchanged. Normal mediastinum and colin. Normal visualized pulmonary arteries. Aortic tortuosity with calcification unchanged. Kyphoplasty of a lower thoracic vertebral body. Healed right ribs laterally unchanged. Small hiatal hernia. RAD/Chest 1 View (Portable) IMPRESSION: Stable chest with no acute or active cardiopulmonary disease. Electronically Signed: Duane Ya MD at 12:18 EDT ,
[2023-11-03 12:23] LABS: Absolute Lymphocyte Count 1.45 X10^3/uL (0.83-4.51); Absolute Neutrophil Count 4.9 X10^3/uL (2.0-7.7); Basophil# 0.07 X10^3/uL; Eosinophil# 0.23 X10^3/uL; Eosinophils% 3.2 % (0-5); Hematocrit 41.6 % (37-47); Hemoglobin 13.3 g/dL (12.0-15.0); Lymphocyte # 1.45 X10^3/ul (0.83-4.51); Lymphocyte % 20.2 % (19-41); Mean Corpuscular Volume 93.7 fL (81-99); Mean Platelet Vol. 10.2 fl (6.2-12.0); Monocyte# 0.47 X10^3/uL; Monocyte% 6.6 % (0-10); NRBC Flagged by Analyzer 0 % (0-5); Neutrophil # 4.94 X10^3/uL (2.7-7.7); Neutrophil % 68.9 % (47-70); Platelet Count 334 K/mm3 (150-450); RBC Distribution Width CV 12.3 % (11.6-14.6); RBC Distribution Width SD 42.7 fl (35.1-43.9); Red Blood Count 4.44 M/mm3 (4.2-5.4); White Blood Count 7.2 K/mm3 (4.4-11.0)
[2023-11-03 12:26] LABS: Anion Gap 8 (5-15); BUN 16 mg/dL (7-18); BUN/Creat Ratio 18.9 RATIO (10-20); Calcium,Total 9.3 mg/dL (8.5-10.1); Chloride 106 mmol/L (98-107); Creatinine, Serum 0.85 mg/dL (0.55-1.02); EST Glomerular Filtration Rate 69 mL/min (>60); Est Glom Filt Rate - Afr Amer 84 mL/min (>60); Glucose 110 mg/dL (74-106); Potassium 3.7 mmol/L (3.5-5.1); Sodium Level 140 mmol/L (136-145); Troponin-I HS 8 pg/mL (3.0-54.0)
[2023-11-03 12:50] LABS: Color, Urine Yellow (Yellow); Glucose, Dipstick Normal (Normal); Ketone-Dipstick Negative (Negative); Leukocyte Esterase-Dipstick 100 /ul (Negative); Nitrite-Dipstick Positive (Negative); Occult Blood-Urine 50 /ul (Negative); Protein-Dipstick 15 mg/dl (Negative); Urine Bilirubin Dipstick Negative (Negative); Urine Clarity Cloudy (Clear); Urine Urobilinogen Normal (Normal)
[2023-11-03 12:55] LABS: Red Blood Cells-Urine 0-5 SEEN /hpf (0-5); Squamous Epithelial Cells - UA 0-5 SEEN /hpf (5-10); White Blood Cells 10-25 SEEN /hpf (0-5)
[2023-11-03 12:56] LABS: Bacteria 4+ /hpf (None Seen); Mucous, Urine RARE /hpf (<or=2+)
[2023-11-03 13:11] VITALS: BP 148/86; PULSE 86; RESP 17; O2SAT 96
[2023-11-03] MEDS: Ceftriaxone 1 GM/50 ML BAG IV (14:52)
[2023-11-03 14:57] VITALS: BP 135/85; PULSE 85; RESP 15; TEMP 36.1; O2SAT 98
--- NOTE | 2023-11-03 15:33 | PCM.HP.STD ---
HPI - General General Date of Admission: 11/03/23 Date of Service: 11/03/23 Chief Complaint: Generalized weakness, dizziness for last 2 days. HPI Narrative MICAELA COCHRAN, is a 78 F was brought to ED for dizziness that started yesterday when she was not feeling well, generalized weakness and in bed all day yesterday. In the morning today she felt very weak and she could not climb down on steps. She said she could not walk and required help in order to walk. Her baseline is walking on cane. She also had nausea and felt like chills but denies fever. She does not have focal signs and symptoms pointing to TIA or stroke. In ED, UA shows positive for pyuria but she denies symptoms of burning micturition/dysuria, increased frequency or urgency or new symptoms. She had a UTI in the past Vital signs in the ED within normal limit. No fever. Labs, chest x-ray and EKG reviewed discussion assessment and. [facility] Medical History Non-smoker Sleep apnea Hypertension Migraines Chronic anemia Obesity Anxiety and depression GERD (gastroesophageal reflux disease) HLD (hyperlipidemia) PAF (paroxysmal atrial fibrillation) Fibromyalgia Osteoporosis Paroxysmal atrial fibrillation T12 compression fracture Closed right hip fracture Syncope Hypothyroid Home Medications ?Medication ?Instructions ?Recorded ?Last Taken ?Type alendronate 70 mg tablet 70 mg PO UD osteoporosis 09/07/22 Unknown History atorvastatin 20 mg tablet 20 mg PO QHS HLD 09/07/22 09/09/22 History fluoxetine 40 mg capsule 40 mg PO DAILY depression 09/07/22 09/10/22 History levothyroxine 75 mcg tablet 75 mcg PO DAILY thyroid 09/07/22 09/10/22 History omeprazole 20 mg capsule,delayed 20 mg PO DAILY GERD 09/07/22 09/10/22 History release calcium carbonate 500 mg (2.5 x 200 mg calcium (500 09/10/22 09/10/22 Rx mg)) PO TIDCM supplement #30 tabs oxycodone 5 mg tablet 5 mg PO Q6H PRN PRN Pain Score 09/28/22 Unknown Rx 1-10 7 days #28 tabs sennosides 8.6 mg-docusate sodium 2 tab PO BID 30 days #120 tabs 09/28/22 Unknown Rx 50 mg tablet (Stool Softener-Stimulant Laxative) meclizine 25 mg chewable tablet 25 mg PO TID PRN dizziness #14 tabs 05/25/23 Unknown Rx (Antivert) Allergy/AdvReac Type Severity Reaction Status Date / Time codeine Allergy Unknown Verified 11/03/23 11:11 codeine phosphate (From AdvReac Unknown Verified 11/03/23 11:11 Tylenol-Codeine #3) nabumetone (From Relafen) AdvReac Unknown Verified 11/03/23 11:11 naproxen AdvReac Unknown Verified 11/03/23 11:11 Family History Mother Cancer Father Cancer Surgical History S/P ORIF (open reduction internal fixation) fracture History of section H/O ovarian cystectomy History of total right hip replacement S/P kyphoplasty S/P ORIF (open reduction internal fixation) fracture Social History household members: spouse Smoking Status: Never smoker alcohol intake: never substance use type: does not use ROS ROS Narrative Constitutional: Reports acute onset of generalized fatigue and weakness. No fever. HEENT: Mild dizziness. No vertigo. No diplopia/loss of vision or hemianopia. Reports systems reviewed and no addt'l complaints, except as documented Respiratory/Chest: No acute shortness of breath or respiratory distress or wheezing. CVS: No chest pain pressure or tightness. No syncope. Gastrointestinal: Mild nausea but no vomiting. Denies coffee ground emesis, hematemesis or melena Genitourinary: Denies burning urination or new urinary tract symptoms Musculoskeletal: Denies acute joint pain or limited range of motion. No acute injury Neurologic: Denies seizure-like symptoms. No acute strokelike symptoms skin: No ulcer. No rash Endocrinology: Reports systems reviewed and no addt'l complaints, except as documented Hematologic/Lymphatic: Reports systems reviewed and no addt'l complaints, except as documented Rest 14 ROS are negative except as mentioned in HPI Vital Signs Vital Signs Vital Signs: 11/03/23 11:10 11/03/23 11:21 11/03/23 13:11 Temperature 98 F Temperature Source Temporal Pulse Rate 99 86 Respiratory Rate 12 17 Respiratory Effort Normal Non-Labored Respiratory Pattern Normal Blood Pressure 124/74 H 148/86 H Blood Pressure Mean 90 106 Pulse Ox 96 96 Oxygen Delivery Method Room Air 11/03/23 14:57 Temperature 97 F L Temperature Source Pulse Rate 85 Respiratory Rate 15 Respiratory Effort Respiratory Pattern Blood Pressure 135/85 H Blood Pressure Mean 101 Pulse Ox 98 Oxygen Delivery Method Physical Exam Narrative General: Alert, Oriented x3, Cooperative. Looks fatigued and tired. HEENT: Atraumatic, PERRLA, EOMI, Normocephalic Oral: Oral mucosa dry no Gingival or Mucosal Lesions/ Ulcerations Neck: Supple, No JVD, Negative Carotid Bruits Chest wall/Lungs: Air entry diminished in bilateral lung bases. No crepitation/rhonchi Cardiovascular: Regular rate, Regular Rhythm, Normal S1, Normal S2, No M/G/R Abdomen: Bowel Sounds Present, Soft, Non Tender, Non-Distended : No dysuria. No renal angle tenderness. No suprapubic tenderness. Extremities: No edema, Capillary Refill Less than 3 Seconds Skin: No rashes, No breakdown Musculoskeletal: Muscle strength 4/5 at both knees and hip joints. History of bilateral hip fracture status post ORIF. No acute tenderness to Palpation of Joints or Extremities Neurological: Cranial nerves II-XII grossly intact, DTR 2+/4. No acute focal neurological deficit. Psych/Mental Status: Flat affect Results Lab / Micro Data 11/03/23 11:50 11/03/23 11:50 Labs: Laboratory Results - last 24 hr 11/03/23 11:50: WBC 7.2, RBC 4.44, Hgb 13.3, Hct 41.6, MCV 93.7, MCH 30.0, MCHC 32.0, RDW Std Deviation 42.7, RDW Coeff of Serafin 12.3, Plt Count 334, MPV 10.2, Immature Gran % (Auto) 0.100, Neut % (Auto) 68.9, Lymph % (Auto) 20.2, [place] % (Auto) 6.6, Eos % (Auto) 3.2, Baso % (Auto) 1.0, Absolute Neuts (auto) 4.9, Absolute Lymphs (auto) 1.45, Nucleated RBC % 0, Sodium 140, Potassium 3.7, Chloride 106, Carbon Dioxide 26.0, Anion Gap 8, BUN 16, Creatinine 0.85, Est GFR (MDRD) Af Amer 84, Est GFR (MDRD) Non-Af 69, BUN/Creatinine Ratio 18.9, Glucose 110 H, Calcium 9.3, Troponin I High Sens 8 11/03/23 12:44: Urine Color Yellow, Urine Clarity Cloudy, Urine pH 7.0, Ur Specific [place] 1.010, Urine Protein 15 H, Urine Glucose (UA) Normal, Urine Ketones Negative, Urine Occult Blood 50 H, Urine Nitrite Positive H, Urine Bilirubin Negative, Urine Urobilinogen Normal, Ur Leukocyte Esterase 100 H, Urine RBC 0-5 SEEN, Urine WBC 10-25 SEEN, Ur Squamous Epith Cells 0-5 SEEN, Urine Bacteria 4+, Urine Mucus RARE Rhythm Strip Rhythm Strip: Sinus Rhythm Rate: 90 Ectopy: None Imaging Radiology Impression Chest X-Ray 11/03/23 11:55 IMPRESSION: Stable chest with no acute or active cardiopulmonary disease. Electronically Signed: Duane Ya MD at 12:18 EDT , Assessment & Plan Assessment/Plan (1) Generalized weakness: PLAN: Plan This is 78-year-old female came to ED for acute onset of fatigue, dizziness, generalized weakness not able to walk even with a cane. 1. Acute onset of fatigue/generalized weakness: More than her baseline: [facility]. She had chronic bilateral weakness secondary to bilateral hip/femur fracture in the past and kyphoplasty. Her presentation does not seem to be acute stroke or TIA. PT OT ordered. Incentive spirometry. Chest x-ray does not show any acute or active cardiopulmonary disease. Twelve-lead EKG shows normal sinus rhythm 90 beats per 1, QTc 479 ms. She was last admitted in August 2022 for left humeral neck fracture. 2. Abnormal UA, possible UTI: Urine nitrite positive, LE 100, WBC 10-25 cells, bacteria 4+. Most likely UTI with nitrite and LE positive. Started on IV ceftriaxone in the ED and continue. Urine culture pending. 3. History of transient/remote PAF: As mentioned above EKG normal sinus rhythm. Not on anticoagulant. Heart rate is controlled. Last 2D echo in March 2016 patient showed normal LV size, systolic function, EF 55%, mild AI and TR. No acute symptoms pertaining to ACS or heart failure. Troponin done in ED normal. 4. Other comorbidities include dyslipidemia, hypothyroidism, GERD, anxiety and depression: Home medication reconciliation done. No acute issues. 5. DVT prophylaxis, moderate risk: Enoxaparin 40 mill subcu daily ordered. Living will/advanced directive/end of life care: Patient does not have living will or advanced directive. 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 Patient does want artificial life support including intubation, tube feed, ventilator and/chest compression, central venous catheter, vasopressor and DC shock if needed Total time spent in [id number] encounter in discussion of advanced directive 17 minutes. Laboratory Results 11/03/23 11:50: WBC 7.2, RBC 4.44, Hgb 13.3, Hct 41.6, MCV 93.7, MCH 30.0, MCHC 32.0, RDW Std Deviation 42.7, RDW Coeff of Serafin 12.3, Plt Count 334, MPV 10.2, Immature Gran % (Auto) 0.100, Neut % (Auto) 68.9, Lymph % (Auto) 20.2, [place] % (Auto) 6.6, Eos % (Auto) 3.2, Baso % (Auto) 1.0, Absolute Neuts (auto) 4.9, Absolute Lymphs (auto) 1.45, Nucleated RBC % 0, Sodium 140, Potassium 3.7, Chloride 106, Carbon Dioxide 26.0, Anion Gap 8, BUN 16, Creatinine 0.85, Est GFR (MDRD) Af Amer 84, Est GFR (MDRD) Non-Af 69, BUN/Creatinine Ratio 18.9, Glucose 110 H, Calcium 9.3, Phosphorus 3.6, Magnesium 2.0, Troponin I High Sens 8 11/03/23 12:44: Urine Color Yellow, Urine Clarity Cloudy, Urine pH 7.0, Ur Specific [place] 1.010, Urine Protein 15 H, Urine Glucose (UA) Normal, Urine Ketones Negative, Urine Occult Blood 50 H, Urine Nitrite Positive H, Urine Bilirubin Negative, Urine Urobilinogen Normal, Ur Leukocyte Esterase 100 H, Urine RBC 0-5 SEEN, Urine WBC 10-25 SEEN, Ur Squamous Epith Cells 0-5 SEEN, Urine Bacteria 4+, Urine Mucus RARE Clinical Impression(s) from Imaging Studies Chest X-Ray 11/03/23 11:55 IMPRESSION: Stable chest with no acute or active cardiopulmonary disease. Charges/Coding Visit Charges Inpatient E&M: 75864 Init Hosp L3 Procedures Hospitalists Procedures: 87972 Advncd Care Plan 30 Min
[2023-11-03 16:20] LABS: Phosphorus 3.6 mg/dL (2.5-4.9)
[2023-11-03 16:38] VITALS: BMI 26.4
[2023-11-03 17:04] VITALS: BP 149/88; PULSE 84; RESP 18; TEMP 36.4; O2SAT 97
[2023-11-03] MEDS: KCL 20MEQ in 0.9% NS 20 MEQ/1,000 ML IV.SOLN. 100 MEQ IV (19:56)
[2023-11-03 22:55] VITALS: BP 144/88; PULSE 89; RESP 18; TEMP 36.7; O2SAT 94
[2023-11-04 01:52] VITALS: BP 124/79; PULSE 84; RESP 15; TEMP 36.6; O2SAT 95
[2023-11-04] MEDS: 0.9% Saline Lock 10 ML Syringe IV (02:04)
[2023-11-04 05:07] VITALS: BMI 26.6
[2023-11-04 06:53] VITALS: BP 144/82; PULSE 82; RESP 15; TEMP 36.5; O2SAT 98
[2023-11-04 07:10] LABS: Absolute Lymphocyte Count 2.26 X10^3/uL (0.83-4.51); Absolute Neutrophil Count 4.4 X10^3/uL (2.0-7.7); Basophil# 0.08 X10^3/uL; Eosinophils% 5.1 % (0-5); Hematocrit 36.9 % (37-47); Lymphocyte # 2.26 X10^3/ul (0.83-4.51); Lymphocyte % 28.9 % (19-41); Mean Corp Hgb Conc 32.5 g/dL (32-36); Mean Corpuscular Hgb 30.6 pg (27.0-32.0); Mean Corpuscular Volume 94.1 fL (81-99); Mean Platelet Vol. 10.2 fl (6.2-12.0); NRBC Flagged by Analyzer 0 % (0-5); Neutrophil # 4.35 X10^3/uL (2.7-7.7); Neutrophil % 55.7 % (47-70); Platelet Count 289 K/mm3 (150-450); RBC Distribution Width CV 12.6 % (11.6-14.6); RBC Distribution Width SD 43.3 fl (35.1-43.9); Red Blood Count 3.92 M/mm3 (4.2-5.4); White Blood Count 7.8 K/mm3 (4.4-11.0)
--- NOTE | 2023-11-04 07:21 | PCM.PN.HOSP ---
Reason for Visit Reason for Visit: Diagnoses Weakness (11/03/23) Subjective Subjective Patient is a 78-year-old lady admitted with progressive generalized weakness found to have abnormal urinalysis consistent with cystitis admitted to regular nursing floor for further management Objective Data Objective Data Vital Signs: Vital Signs Temp Pulse Resp BP Pulse Ox O2 Del Method 97.7 F L 82 15 144/82 H 98 Room Air 11/04/23 06:53 11/04/23 06:53 11/04/23 06:53 11/04/23 06:53 11/04/23 06:53 11/04/23 06:53 Oxygen Delivery Method Room Air Weight: 62 kg Body Mass Index (BMI) 26.6 Intake & Output: Intake and Output for Last 24 Hours 11/02/23 11/03/23 11/04/23 23:59 23:59 23:59 Intake Total 1270 / 1470 815 / 815 Balance 1270 / 1470 815 / 815 Lab / Micro Data 11/04/23 06:04 11/04/23 06:04 Labs: Laboratory Results - last 24 hr 11/03/23 11:50: WBC 7.2, RBC 4.44, Hgb 13.3, Hct 41.6, MCV 93.7, MCH 30.0, MCHC 32.0, RDW Std Deviation 42.7, RDW Coeff of Serafin 12.3, Plt Count 334, MPV 10.2, Immature Gran % (Auto) 0.100, Neut % (Auto) 68.9, Lymph % (Auto) 20.2, [place] % (Auto) 6.6, Eos % (Auto) 3.2, Baso % (Auto) 1.0, Absolute Neuts (auto) 4.9, Absolute Lymphs (auto) 1.45, Nucleated RBC % 0, Sodium 140, Potassium 3.7, Chloride 106, Carbon Dioxide 26.0, Anion Gap 8, BUN 16, Creatinine 0.85, Est GFR (MDRD) Af Amer 84, Est GFR (MDRD) Non-Af 69, BUN/Creatinine Ratio 18.9, Glucose 110 H, Calcium 9.3, Phosphorus 3.6, Magnesium 2.0, Troponin I High Sens 8 11/03/23 12:44: Urine Color Yellow, Urine Clarity Cloudy, Urine pH 7.0, Ur Specific [place] 1.010, Urine Protein 15 H, Urine Glucose (UA) Normal, Urine Ketones Negative, Urine Occult Blood 50 H, Urine Nitrite Positive H, Urine Bilirubin Negative, Urine Urobilinogen Normal, Ur Leukocyte Esterase 100 H, Urine RBC 0-5 SEEN, Urine WBC 10-25 SEEN, Ur Squamous Epith Cells 0-5 SEEN, Urine Bacteria 4+, Urine Mucus RARE 11/04/23 06:04: WBC 7.8, RBC 3.92 L, Hgb 12.0, Hct 36.9 L, MCV 94.1, MCH 30.6, MCHC 32.5, RDW Std Deviation 43.3, RDW Coeff of Serafin 12.6, Plt Count 289, MPV 10.2, Immature Gran % (Auto) 0.300, Neut % (Auto) 55.7, Lymph % (Auto) 28.9, [place] % (Auto) 9.0, Eos % (Auto) 5.1 H, Baso % (Auto) 1.0, Absolute Neuts (auto) 4.4, Absolute Lymphs (auto) 2.26, Nucleated RBC % 0 Radiography Diagnostic Testing: Radiology Impression Chest X-Ray 11/03/23 11:55 IMPRESSION: Stable chest with no acute or active cardiopulmonary disease. Electronically Signed: Duane Ya MD at 12:18 EDT , Rhythm Strip Rhythm Strip: Sinus Rhythm Rate: 90 Ectopy: None Physical Exam Narrative GENERAL: cooperative HEENT: Atraumatic; normocephalic EYES; Anicteric, Normal Conjunctiva NECK; supple, normal thyroid, RESPIRATORY: Diminished to auscultation CARDIOVASCULAR: Regular S1 S2, GI: soft, normoactive bowel sounds, : No Renal angle tenderness; EXTREMITIES: No edema, no clubbing, MUSCULOSKELETAL: no muscle wasting NEURO: Awake; no lateralizing signs. SKIN: No Rash PSYCH; Flat affect Assessment & Plan Assessment/Plan (1) Generalized weakness: PLAN: Plan Patient is a 78-year-old lady admitted with progressive generalized weakness found to have abnormal urinalysis consistent with cystitis admitted to regular nursing floor for further management 1. Acute cystitis ? Patient has been admitted to regular nursing floor started on ceftriaxone urine culture sent 2. Physical deconditioning ? Requested for PT OT eval and social work coordinator to assist with discharge planning 3. Hypothyroidism ? Patient is on levothyroxine home dose continued 4. Paroxysmal atrial fibrillation ? Patient EKG on admission?sinus rhythm 5. GERD ? Patient is on PPI 6. Depression ? Patient is on fluoxetine 7. Dyslipidemia ?Patient is on statin therapy, continued at home dose 8. Osteoporosis ? Patient is on alendronate 8. DVT prophylaxis ? On enoxaparin Time spent in the patient's overall evaluation,decision-making process, review of diagnostic data, adjustment of management, discussion with other providers, nursing nursing and ancillary staff involved in patient's care documentation, 38 Minutes Charges/Coding Visit Charges Inpatient E&M: 64785 Subs Hosp L2
[2023-11-04 08:06] LABS: Anion Gap 7 (5-15); BUN 20 mg/dL (7-18); BUN/Creat Ratio 33.6 RATIO (10-20); Calcium,Total 8.3 mg/dL (8.5-10.1); Chloride 110 mmol/L (98-107); EST Glomerular Filtration Rate 104 mL/min (>60); Est Glom Filt Rate - Afr Amer 126 mL/min (>60); Estimated Creatinine Clearance 49.21 ml/min; Glucose 95 mg/dL (74-106); Potassium 3.7 mmol/L (3.5-5.1); Sodium Level 141 mmol/L (136-145)
--- NOTE | 2023-11-04 09:30 | CASEMGMT ---
KHADAR BELL Face to Face with patient for initial transition planning/care coordination assessment. RN CM introduced self and role at [facility]. Patient lying in bed, alert and oriented. Patient willing to participate in assessment and is able to answer all questions appropriately. Care providers, pharmacy, and demographics verified. Strata: 2 PCP: Aletha Specialists: none Preferred Pharmacy: [facility] Insurance: [employer] [facility] Prescription Benefit: yes Living Will/HPOA: yes, Ankur Gibson LNOK: Living Arrangements: Patient lives with in a single story home with ramp to enter the home. Patient states she toilets self, assists with bathing and dressing. Transportation: DME/HHC: Patient has shower chair, raised toilet, cane, walker, at home . Patient had been to [facility] and [facility] in the past. Patient has had HHC in the past but could not recall agency. Patient wishes to discharge home, will monitor progress with therapy. Patient states she has no further needs or concerns at this time. CM to follow for discharge planning needs that may arise. Disposition Plan: TBD, pending progress with therapy, anticipate HHC at discharge. Valorie PERKINS, RN, CM
[2023-11-04] MEDS: Enoxaparin 40 MG/0.4 ML Syringe SC (10:04)
[2023-11-04] MEDS: Ceftriaxone 1 GM/50 ML BAG IV (10:04)
[2023-11-04 11:50] VITALS: BP 154/95; PULSE 93; RESP 16; TEMP 36.6; O2SAT 99
--- NOTE | 2023-11-04 12:27 | CHAPLAIN ---
Type of Pastoral Visit _x__ Initial Visit ___ Follow-up Visit ___ On-call Visit ___ General Patient Visit ___ Spiritual Assessment ___ Family Conference ___ Bereavement ___ Rapid Response ___ Code Blue ___ Other (describe below) Pastoral Care Referral From _x__ Patient ___ Family ___ Nurse ___ Physician ___ Production Machine Operator ___ Gas Turbine Assembler ___ Other (describe below) Sacrament/Intervention ___ Active listening ___ Anointing ___ Yarsanism ___ Bereavement ___ Communion ___ [place] exploration ___ ___ Life review ___ Prayer ___ Reconciliation ___ Sacrament of Sick _x__ Supportive presence ___ Wedding ___ Other (describe below) Pastoral Comments a brief hello to the patient who got a phone call and preferred to talk to that friend; pt says return to visit is optional
--- NOTE | 2023-11-04 13:32 | CASEMGMT ---
KHADAR BELL NOTE: Therapy evals have been completed and verbal report received from them, stating pt is safe to discharge home and does not need HHC. RN RAY to room. Pt sitting up in chair. @ bedside. Introduced self and role. Pt states she feels she is back to her baseline and also feels she does not need HHC. Discussed OP therapy and she declines this as well, stating she plans to work on exercises @ home that she has been given in the past, as well as walk around for exercise. agreeable to this plan as well. They were made aware if they change their mind about HHC or OP therapy once returning home, to discuss this w/her PCP. They voice understanding. Pt and both deny having any discharge needs/concerns at this time. Wil PERKINS RN CM
[2023-11-04 16:21] VITALS: BP 147/85; PULSE 86; RESP 15; TEMP 36.3; O2SAT 97
[2023-11-04 20:28] VITALS: BP 128/89; PULSE 95; RESP 18; TEMP 36.3; O2SAT 96
[2023-11-05 04:44] VITALS: BP 125/74; PULSE 79; RESP 16; TEMP 36.4; O2SAT 96
[2023-11-05 06:00] VITALS: BMI 26.2
[2023-11-05 06:10] LABS: Absolute Lymphocyte Count 2.17 X10^3/uL (0.83-4.51); Absolute Neutrophil Count 4.1 X10^3/uL (2.0-7.7); Basophil# 0.08 X10^3/uL; Basophil% 1.1 % (0-1); Eosinophils% 6.7 % (0-5); Hematocrit 38.7 % (37-47); Hemoglobin 12.3 g/dL (12.0-15.0); Lymphocyte # 2.17 X10^3/ul (0.83-4.51); Mean Corp Hgb Conc 31.8 g/dL (32-36); Mean Corpuscular Volume 94.4 fL (81-99); NRBC Flagged by Analyzer 0 % (0-5); Neutrophil # 4.12 X10^3/uL (2.7-7.7); Neutrophil % 54.9 % (47-70); Platelet Count 260 K/mm3 (150-450); RBC Distribution Width CV 12.4 % (11.6-14.6); RBC Distribution Width SD 42.9 fl (35.1-43.9); White Blood Count 7.5 K/mm3 (4.4-11.0)
[2023-11-05 06:55] LABS: Anion Gap 7 (5-15); BUN 21 mg/dL (7-18); BUN/Creat Ratio 33.3 RATIO (10-20); Calcium,Total 8.4 mg/dL (8.5-10.1); Chloride 110 mmol/L (98-107); Creatinine, Serum 0.63 mg/dL (0.55-1.02); EST Glomerular Filtration Rate 98 mL/min (>60); Est Glom Filt Rate - Afr Amer 118 mL/min (>60); Estimated Creatinine Clearance 48.79 ml/min; Glucose 80 mg/dL (74-106); Sodium Level 136 mmol/L (136-145)
--- NOTE | 2023-11-05 07:08 | PN.HOSP_ITS ---
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; [place] Count >100,000 CFU/mL Objective Data Objective Data Vital Signs: Vital Signs Temp Pulse Resp BP Pulse Ox O2 Del Method 97.5 F L 79 16 125/74 H 96 Room Air 11/05/23 04:44 11/05/23 04:44 11/05/23 04:44 11/05/23 04:44 11/05/23 04:44 11/05/23 04:44 Oxygen Delivery Method Room Air Weight: 60.9 kg Body Mass Index (BMI) 26.2 Intake & Output: Intake and Output for Last 24 Hours 11/03/23 11/04/23 11/05/23 23:59 23:59 23:59 Intake Total 1270 / 1470 1585 / 1585 200 / 200 Balance 1270 / 1470 1585 / 1585 200 / 200 Lab / Micro Data 11/05/23 05:10 11/05/23 05:10 Labs: Laboratory Results - last 24 hr 11/04/23 06:04: WBC 7.8, RBC 3.92 L, Hgb 12.0, Hct 36.9 L, MCV 94.1, MCH 30.6, MCHC 32.5, RDW Std Deviation 43.3, RDW Coeff of Serafin 12.6, Plt Count 289, MPV 10.2, Immature Gran % (Auto) 0.300, Neut % (Auto) 55.7, Lymph % (Auto) 28.9, [place] % (Auto) 9.0, Eos % (Auto) 5.1 H, Baso % (Auto) 1.0, Absolute Neuts (auto) 4.4, Absolute Lymphs (auto) 2.26, Nucleated RBC % 0, Sodium 141, Potassium 3.7, Chloride 110 H, Carbon Dioxide 24.0, Anion Gap 7, BUN 20 H, Creatinine 0.60, Estim Creat Clear Calc 49.21, Est GFR (MDRD) Af Amer 126, Est GFR (MDRD) Non-Af 104, BUN/Creatinine Ratio 33.6 H, Glucose 95, Calcium 8.3 L 11/05/23 05:10: WBC 7.5, RBC 4.10 L, Hgb 12.3, Hct 38.7, MCV 94.4, MCH 30.0, M CHC 31.8 L, RDW Std Deviation 42.9, RDW Coeff of Serafin 12.4, Plt Count 260, MPV 10.0, Immature Gran % (Auto) 0.300, Neut % (Auto) 54.9, Lymph % (Auto) 29.0, [place] % (Auto) 8.0, Eos % (Auto) 6.7 H, Baso % (Auto) 1.1 H, Absolute Neuts (auto) 4.1, Absolute Lymphs (auto) 2.17, Nucleated RBC % 0, Sodium 136, Potassium 4.0, Chloride 110 H, Carbon Dioxide 19.0 L, Anion Gap 7, BUN 21 H, Creatinine 0.63, Estim Creat Clear Calc 48.79, Est GFR (MDRD) Af Amer 118, Est GFR (MDRD) Non-Af 98, BUN/Creatinine Ratio 33.3 H, Glucose 80, Calcium 8.4 L Micro: Microbiology 11/03/23 12:44 Urine, Catheterized Urine Culture - Preliminary 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 SKIN: No Rash PSYCH; Flat affect Assessment & Plan Assessment/Plan (1) Generalized weakness: PLAN: Plan Patient is a 78-year-old lady admitted with progressive generalized weakness found to have abnormal urinalysis consistent with cystitis admitted to regular nursing floor for further management 1. Acute cystitis ? 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 Physical deconditioning ? Requested for PT OT eval and social psychologist to assist with discharge planning 3. Hypothyroidism ? Patient is on levothyroxine home dose continued 4. Paroxysmal atrial fibrillation ? Patient EKG on admission?sinus rhythm 5. GERD ? Patient is on PPI 6. Depression ? Patient is on fluoxetine 7. Dyslipidemia ?Patient is on statin therapy, continued at home dose 8. Osteoporosis ? Patient is on alendronate 8. DVT prophylaxis ? On enoxaparin Time spent in the patient's overall evaluation,decision-making process, review of diagnostic data, adjustment of management, discussion with other providers, nursing nursing and ancillary staff involved in patient's care documentation, 36 Minutes Charges/Coding Visit Charges Inpatient E&M: 24608 Subs Hosp L2
[2023-11-05 09:24] VITALS: BP 147/97; PULSE 81; RESP 18; TEMP 36.8; O2SAT 97
[2023-11-05] MEDS: 0.9% Saline Lock 10 ML Syringe IV (09:29)
[2023-11-05] MEDS: Ceftriaxone 1 GM/50 ML BAG IV (09:29)
[2023-11-05] MEDS: Enoxaparin 40 MG/0.4 ML Syringe SC (09:30)
--- NOTE | 2023-11-05 11:27 | PCM.DC.SUM ---
Providers Date of Admission: 11/03/23 Date of Discharge: 11/05/23 Primary Care Physician: Dr. Jose Carlos Pompa MD Reason For Visit: GEN WEAKNESS Diagnosis Discharge Diagnosis (1) Generalized weakness: Status: Acute Code(s): R53.1 - Weakness Plan Patient is a 78-year-old lady admitted with progressive generalized weakness found to have abnormal urinalysis consistent with cystitis admitted to regular nursing floor for further management 1. Acute cystitis ? Patient has been admitted to regular nursing floor started on ceftriaxone urine culture sent -11/05/2023; Patient urine cultures so far positive for GNR lactose medical transcription; [place] Count >100,000 CFU/mL ? Urine cultures came back positive for E. coli; patient was discharged on ciprofloxacin 2. Physical deconditioning ? Requested for PT OT eval and delinquency prevention social worker to assist with discharge planning 3. Hypothyroidism ? Patient is on levothyroxine home dose continued 4. Paroxysmal atrial fibrillation ? Patient EKG on admission?sinus rhythm 5. GERD ? Patient is on PPI 6. Depression ? Patient is on fluoxetine 7. Dyslipidemia ?Patient is on statin therapy, continued at home dose 8. Osteoporosis ? Patient is on alendronate 8. DVT prophylaxis ? On enoxaparin Time spent in the patient's overall evaluation,decision-making process, review of diagnostic data, adjustment of management, discussion with other providers, nursing nursing and ancillary staff involved in patient's care documentation, 36 Minutes Medications at Discharge Home Medications alendronate 70 mg tablet 70 mg PO UD osteoporosis 09/07/22 atorvastatin 20 mg tablet 20 mg PO QHS HLD 09/07/22 fluoxetine 40 mg capsule 40 mg PO DAILY depression 09/07/22 levothyroxine 75 mcg tablet 75 mcg PO DAILY thyroid 09/07/22 omeprazole 20 mg capsule,delayed release 20 mg PO DAILY GERD 09/07/22 calcium carbonate 500 mg (2.5 x 200 mg calcium (500 mg)) PO TIDCM supplement #30 tabs 09/10/22 oxycodone 5 mg tablet 5 mg PO Q6H PRN PRN Pain Score 1-10 7 days #28 tabs 09/28/22 sennosides 8.6 mg-docusate sodium 50 mg tablet (Stool Softener-Stimulant Laxative) 2 tab PO BID 30 days #120 tabs 09/28/22 meclizine 25 mg chewable tablet (Antivert) 25 mg PO TID PRN dizziness #14 tabs 05/25/23 ciprofloxacin HCl 500 mg tablet (Cipro) 500 mg PO BID #14 tabs 11/05/23 Physical Exam Narrative GENERAL: cooperative HEENT: Atraumatic; normocephalic EYES; Anicteric, Normal Conjunctiva NECK; supple, normal thyroid, RESPIRATORY: Diminished to auscultation CARDIOVASCULAR: Regular S1 S2, GI: soft, normoactive bowel sounds, : No Renal angle tenderness; EXTREMITIES: No edema, no clubbing, MUSCULOSKELETAL: no muscle wasting NEURO: Awake; no lateralizing signs. SKIN: No Rash PSYCH; Flat affect Weight / BMI Weight Weight: 60.9 kg Body Mass Index (BMI) 26.2 ABG / Lab / Microbiology Data 11/05/23 05:10 11/05/23 05:10 Laboratory: Laboratory Results - last 24 hr 11/05/23 05:10: WBC 7.5, RBC 4.10 L, Hgb 12.3, Hct 38.7, MCV 94.4, MCH 30.0, MCHC 31.8 L, RDW Std Deviation 42.9, RDW Coeff of Serafin 12.4, Plt Count 260, MPV 10.0, Immature Gran % (Auto) 0.300, Neut % (Auto) 54.9, Lymph % (Auto) 29.0, [place] % (Auto) 8.0, Eos % (Auto) 6.7 H, Baso % (Auto) 1.1 H, Absolute Neuts (auto) 4.1, Absolute Lymphs (auto) 2.17, Nucleated RBC % 0, Sodium 136, Potassium 4.0, Chloride 110 H, Carbon Dioxide 19.0 L, Anion Gap 7, BUN 21 H, Creatinine 0.63, Estim Creat Clear Calc 48.79, Est GFR (MDRD) Af Amer 118, Est GFR (MDRD) Non-Af 98, BUN/Creatinine Ratio 33.3 H, Glucose 80, Calcium 8.4 L Microbiology: Microbiology 11/03/23 12:44 Urine, Catheterized Urine Culture - Final Escherichia coli D/C Instructions Discharge Diet: No restrictions Discharge Activity: Return to Normal Activity Call your doctor if you observe: Fever of 101 or Higher, Shortness of breath, Fainting spells and Chest pain Meaningful Use Info Meaningful Use Meaningful Use Diagnoses (Choose all that apply): None applicable Ischemic Stroke Statin Dosing Therapy Reference: STATIN DOSE THERAPY REFERENCE: * Patients > 75 years receive moderate or high dose statin therapy. * Patients 75 years or YOUNGER should receive HIGH intensity statin dose unless contraindicated. You will be required to document reason for non-treatment if statin daily dose does not meet guidelines. HIGH DOSE STATIN THERAPY DAILY Atorvastatin > than or = to 40 mg Rosuvastatin > than or = to 20 mg Amlodipine + Atorvastatin > than or = to 2.5/40 mg Ezetimibe + Simvastatin 10/80 mg Simvastatin 80mg Discharge Plan Admission Admit Date/Time: 11/03/23 15:33 Attending Provider: Venancio Shrestha Primary Care Provider: Jose Carlos Pompa Consulting Providers: James Sánchez Discharge Orders/Prescriptions Prescriptions: New ciprofloxacin HCl [Cipro] 500 mg tablet 500 mg PO BID Qty: 14 0RF Continued fluoxetine 40 mg capsule 40 mg PO DAILY atorvastatin 20 mg tablet 20 mg PO QHS alendronate 70 mg tablet 70 mg PO UD Rx Instructions: weekly. omeprazole 20 mg capsule,delayed release(DR/EC) 20 mg PO DAILY levothyroxine 75 mcg tablet 75 mcg PO DAILY calcium carbonate 200 mg calcium (500 mg) Tablet,Chewable 500 mg PO TIDCM Qty: 30 0RF sennosides-docusate sodium [Stool Softener-Stimulant Laxat] 8.6-50 mg Tablet 2 tab PO BID 30 Days Qty: 120 0RF oxycodone 5 mg Tablet 5 mg PO Q6H PRN PRN (Reason: Pain Score 1-10) 7 Days Qty: 28 0RF meclizine [Antivert] 25 mg tablet,chewable 25 mg PO TID PRN (Reason: dizziness) Qty: 14 0RF Referrals / Follow Up: Jose Carlos Pompa MD [Primary Care Provider] - Within 1 Week Disposition Disposition (needs filled in before D/C Order can be placed): Home, Self Care Charges/Coding Visit Charges Inpatient E&M: 74844 Disch Hosp >30min
[2023-11-05 14:44] VITALS: BP 133/82; PULSE 98; RESP 16; TEMP 36.6; O2SAT 98
== END 2023-11-05 14:43 | disposition home or self-care (01) | DRG 690 ==
LOC: ED 14:43 → MS3 16:05
PROVIDERS: Admitting Provider Internal Medicine; Emergency Provider Emergency Medicine; PCP Family Medicine; Visit Provider Internal Medicine
DX: N30.00 Acute cystitis without hematuria (principal); B96.20 Unspecified Escherichia coli [E. coli] as the cause of diseases classified elsewhere; E03.9 Hypothyroidism, unspecified; I35.1 Nonrheumatic aortic (valve) insufficiency; I10 Essential (primary) hypertension; F32.A Depression, unspecified; I48.0 Paroxysmal atrial fibrillation; E78.5 Hyperlipidemia, unspecified; K21.9 Gastro-esophageal reflux disease without esophagitis; Z51.5 Encounter for palliative care; Z66 Do not resuscitate; M81.0 Age-related osteoporosis without current pathological fracture; Z87.440 Personal history of urinary (tract) infections
CPT/HCPCS: 36415; 71045; 80048; 81001; 83735; 84100; 84484; 85025; 87077; 87086; 87088; 87186; 93005; 94668; 97162; 97165; 99285; J7030; P9612; A4216

== ENCOUNTER 2024-05-05 15:03 | Emergency (ER) | payer MEDICARE, SELFPAY ==
[2024-05-05 15:04] VITALS: BP 177/89; PULSE 88; RESP 16; TEMP 36.6; O2SAT 96
--- NOTE | 2024-05-05 15:22 | CT_ITS ---
PROCEDURE: CHEST WITHOUT CONTRAST REASON FOR EXAM: Left rib trauma TECHNIQUE: Chest CT without contrast. COMPARISON: None. FINDINGS: Hardware: None. Lymph nodes: No mediastinal hilar or axillary lymphadenopathy. Heart and Vasculature: Coronary artery calcifications are noted. Atherosclerotic calcifications of the thoracic aorta. Thoracic aorta and pulmonary arteries have normal contours; noncontrast technique limits evaluation. Lungs and Airways: Mild dependent atelectasis and scarring. Pleura: No pleural effusion. No pneumothorax. Upper Abdomen: Visualized portions of the upper abdominal viscera are unremarkable. Bones: Nondisplaced posterior 10th and 11th right rib fractures and nondisplaced lateral 4th, 5th, 6, 7th, and 8th left rib fractures. There is severe compression fracture of T11. Vertebroplasty has been performed on T12. Other: Moderate hiatal hernia. CT/Chest without Contrast IMPRESSION: 1. Multiple bilateral rib fractures 2. Compression fracture of T11; treated compression fracture at T12 One or more dose reduction techniques were used (e.g., Automated exposure contr ol, adjustment of the mA and/or kV according to patient size, use of iterative reconstruction technique). Reading Location: [facility]
--- NOTE | 2024-05-05 15:25 | ED.VIS.FALL ---
HPI HPI - Fall History of Present Illness Chief Complaint: Fall Narrative Narrative: 78-year-old female past medical history of frequent falls, experienced a fall today when she was going to go to the stove in the kitchen. At times, she often gets tripped up on her own feet and falls. She has a baseline general weakness according to her . Although he was not there at the time, he was only a few minutes away. They came home and put her in the car. She states that after she fell, she banged her right wrist on the floor trying to prevent her fall and brace it. She sustained a skin tear to her left proximal forearm as well. She denies hitting her head or loss of consciousness, states she does not take a blood thinner. She complains of left-sided posterior rib pain. No difficulty breathing. No other injuries. She is unsure of her last tetanus immunization. [facility] Medical History Non-smoker Sleep apnea Hypertension Migraines Chronic anemia Obesity Anxiety and depression GERD (gastroesophageal reflux disease) HLD (hyperlipidemia) PAF (paroxysmal atrial fibrillation) Fibromyalgia Osteoporosis Paroxysmal atrial fibrillation T12 compression fracture Closed right hip fracture Syncope Hypothyroid Home Medications ?Medication ?Instructions ?Recorded ?Last Taken ?Type alendronate 70 mg tablet 70 mg PO UD osteoporosis 09/07/22 Unknown History atorvastatin 20 mg tablet 20 mg PO QHS HLD 09/07/22 09/09/22 History fluoxetine 40 mg capsule 40 mg PO DAILY depression 09/07/22 09/10/22 History omeprazole 20 mg capsule,delayed 20 mg PO DAILY GERD 09/07/22 09/10/22 History release calcium carbonate 500 mg (2.5 x 200 mg calcium (500 09/10/22 09/10/22 Rx mg)) PO TIDCM supplement #30 tabs oxycodone 5 mg tablet 5 mg PO Q6H PRN PRN Pain Score 09/28/22 Unknown Rx 1-10 7 days #28 tabs sennosides 8.6 mg-docusate sodium 2 tab PO BID 30 days #120 tabs 09/28/22 Unknown Rx 50 mg tablet (Stool Softener-Stimulant Laxative) levothyroxine 100 mcg tablet 100 mcg PO DAILY 05/05/24 Unknown History Allergy/AdvReac Type Severity Reaction Status Date / Time codeine Allergy Unknown Verified 05/05/24 15:08 codeine phosphate (From AdvReac Unknown Verified 05/05/24 15:08 Tylenol-Codeine #3) nabumetone (From Relafen) AdvReac Unknown Verified 05/05/24 15:08 naproxen AdvReac Unknown Verified 05/05/24 15:08 Family History Mother Cancer Father Cancer Surgical History S/P ORIF (open reduction internal fixation) fracture History of section H/O ovarian cystectomy History of total right hip replacement S/P kyphoplasty S/P ORIF (open reduction internal fixation) fracture Social History household members: spouse Smoking Status: Never smoker alcohol intake: never substance use type: does not use ROS ROS ED ROS Narrative Review of systems positive for right wrist pain and bruising as well as left proximal forearm skin tear with hematoma and tenderness. No elbow pain on the left. She is right-hand dominant. She also complains of left-sided posterior rib pain worse with movement. No headache or neck pain. Denies other injury. EXAM Physical Exam Narrative Exam Narrative: GCS 15. ABCs are intact. Neck soft and supple without meningismus. Mild tenderness to palpation left posterior ribs. No crepitance. Cardiovascular examination reveals a regular rate and rhythm. Lungs are clear to auscultation bilaterally with equal breath sounds. Abdomen is soft and nontender. Inspection of the right wrist does reveal mild ecchymosis about the right wrist running linearly. She is neurovascularly intact distally with palpable radial pulse and able to oppose thumb. Good capillary refill of fingers. Full range of motion of digits. No crepitance or pain with flexion extension of right wrist. Uninjured at the right elbow and above. Inspection of the left forearm does reveal a moderately sized skin tear at least 3 to 4 cm with underlying hematoma distally. She is able to flex and extend her left elbow as well. Palpable radial pulse distally. Neurological examination nonfocal and nonlateralizing. Const Vital Signs: 05/05/24 15:04 05/05/24 15:32 Temperature 97.8 F Temperature Source Temporal Pulse Rate 88 Respiratory Rate 16 Blood Pressure 177/89 H Blood Pressure Mean 118 Pulse Ox 96 Oxygen Delivery Method Room Air MDM MDM MDM Narrative Medical decision making narrative: I reviewed the patient's prior records and her last Tdap was in 2019, within 6 years and current. Her wound will be cleansed and dressed. Differential diagnosis includes but not limited to right wrist fracture versus contusion and left forearm contusion versus fracture of the radius and/or ulna. Regarding her left chest tenderness, concern would be for rib contusion versus fracture. I do not feel she requires CT imaging of the brain or of the neck. She is at her baseline according to her . She was given an oxycodone tablet for analgesia which she had been previously prescribed. On my independent interpretation of the left forearm x-rays, there is no evidence of an acute fracture but noted hematoma and swelling laterally. I reviewed the radiology report which confirms that there is no evidence of fracture. On my independent interpretation of the right wrist x-rays in 3 views, there is no evidence of an acute fracture. I reviewed the radiology report which confirms my independent interpretation. I reviewed the radiology report of the CT of the chest. There are multiple bilateral rib fractures. They are mainly posterior #10 and 11 on the right and 4 through 8 on the left without evidence of pneumothorax. Given her multiple rib fractures, although her pulse ox is 96% on room air, given her age I feel she meets geriatric trauma criteria. I will add CBC, CMP, EKG, and EtOH level. I do feel that the patient will require transfer for at least observation. Patient was discussed with the [facility] transfer line. I discussed patient with Dr. Gray and she accepts her in transfer. I did obtain an EKG prior to transfer and interpreted it myself independently which demonstrates normal sinus rhythm at 96 bpm without ectopy or acute ST changes. No STEMI. She does have slightly prolonged QT interval at 492 ms. Disposition is transferred in stable condition. History & Record Review Discussion w/independent historian: Patient and Family Lab Data Attestation: I reviewed the patient's lab results. Labs: Laboratory Results - last 24 hr 05/05/24 16:25 WBC 10.1 RBC 4.23 Hgb 13.1 Hct 39.6 MCV 93.6 MCH 31.0 MCHC 33.1 RDW Std Deviation 43.2 RDW Coeff of Serafin 12.5 Plt Count 316 MPV 10.1 Immature Gran % (Auto) 0.500 Neut % (Auto) 84.9 H Lymph % (Auto) 8.9 L [place] % (Auto) 4.2 Eos % (Auto) 0.9 Baso % (Auto) 0.6 Absolute Neuts (auto) 8.6 H Absolute Lymphs (auto) 0.90 Nucleated RBC % 0 Radiography Diagnostic Testing: Clinical Impression(s) from Imaging Studies Chest CT 05/05/24 15:22 IMPRESSION: 1. Multiple bilateral rib fractures 2. Compression fracture of T11; treated compression fracture at T12 One or more dose reduction techniques were used (e.g., Automated exposure control, adjustment of the mA and/or kV according to patient size, use of iterative reconstruction technique). [facility] 05/05/24 15:44 IMPRESSION: Degenerative changes with no acute osseous abnormality in the left forearm Reading Location: [facility] Wrist X-Ray 05/05/24 15:44 IMPRESSION: Degenerative changes with no acute osseous abnormality of the right wrist Reading Location: [facility] Management Discussion w/another healthcare provider: [employer] (Dr. Sears, Trauma transfer line) Discharge Plan Triage Chief Complaint: Fall ED Provider: Edmundo Judd Dx/Rx/DC Orders Clinical Impression: Fall, Multiple rib fractures, Contusion of right wrist Prescriptions: No Action fluoxetine 40 mg capsule 40 mg PO DAILY atorvastatin 20 mg tablet 20 mg PO QHS alendronate 70 mg tablet 70 mg PO UD Rx Instructions: weekly. omeprazole 20 mg capsule,delayed release(DR/EC) 20 mg PO DAILY calcium carbonate 200 mg calcium (500 mg) Tablet,Chewable 500 mg PO TIDCM Qty: 30 0RF sennosides-docusate sodium [Stool Softener-Stimulant Laxat] 8.6-50 mg Tablet 2 tab PO BID 30 Days Qty: 120 0RF oxycodone 5 mg Tablet 5 mg PO Q6H PRN PRN (Reason: Pain Score 1-10) 7 Days Qty: 28 0RF levothyroxine 100 mcg tablet 100 mcg PO DAILY Patient Comments: [NO ORIGINAL SIG] Primary Care Provider: Jose Carlos Pompa Referrals: Jose Carlos Pompa MD [Primary Care Provider] - Print Language: [place]
--- NOTE | 2024-05-05 15:44 | RAD_ITS ---
PROCEDURE: WRIST MIN 3 VIEWS REASON FOR EXAM: Trauma TECHNIQUE: Three views of the right wrist COMPARISON: None. FINDINGS: RIGHT WRIST: No visible fracture. No suspicious bone lesion. Osteopenia. Moderate joint space narrowing in the radiocarpal joint. Normal alignment. Soft tissues are unremarkable. RAD/Wrist min 3 Views IMPRESSION: Degenerative changes with no acute osseous abnormality of the right wrist Reading Location: [facility]
--- NOTE | 2024-05-05 15:44 | RAD_ITS ---
PROCEDURE: FOREARM 2 VIEWS REASON FOR EXAM: Trauma TECHNIQUE: Two views of the left forearm COMPARISON: None. FINDINGS: LEFT FOREARM: No fracture. No suspicious bone lesion. Mild osteopenia Normal alignment at the wrist and elbow. Soft tissues are unremarkable. RAD/Forearm 2 Views IMPRESSION: Degenerative changes with no acute osseous abnormality in the left forearm Reading Location: [facility]
[2024-05-05] MEDS: oxyCODONE 5 MG Tablet PO (16:04)
[2024-05-05 16:06] VITALS: BMI 27.0
--- NOTE | 2024-05-05 16:14 | EKG12_ITS ---
Test Reason : FALL Blood Pressure : */* mmHG Vent. Rate : 96 BPM Atrial Rate : 96 BPM P-R Int : 142 ms QRS Dur : 74 ms QT Int : 390 ms P-R-T Axes : 14 -8 39 degrees QTcB Int : 492 ms Normal sinus rhythm Nonspecific ST abnormality Prolonged QT Abnormal ECG BASELINE ARTIFACT Confirmed by Renaldo Ruiz ([id number]), editor magazine [facility] ([id number]) on 05/07/2024 10:16:02 AM Referred By: Confirmed By: Renaldo Ruiz
[2024-05-05 16:31] LABS: Absolute Neutrophil Count 8.6 X10^3/uL (2.0-7.7); Basophil# 0.06 X10^3/uL; Basophil% 0.6 % (0-1); Eosinophil# 0.09 X10^3/uL; Eosinophils% 0.9 % (0-5); Hematocrit 39.6 % (37-47); Hemoglobin 13.1 g/dL (12.0-15.0); Lymphocyte % 8.9 % (19-41); Mean Corp Hgb Conc 33.1 g/dL (32-36); Mean Corpuscular Volume 93.6 fL (81-99); Mean Platelet Vol. 10.1 fl (6.2-12.0); Monocyte# 0.42 X10^3/uL; Monocyte% 4.2 % (0-10); NRBC Flagged by Analyzer 0 % (0-5); Neutrophil # 8.56 X10^3/uL (2.7-7.7); Neutrophil % 84.9 % (47-70); Platelet Count 316 K/mm3 (150-450); RBC Distribution Width CV 12.5 % (11.6-14.6); RBC Distribution Width SD 43.2 fl (35.1-43.9); Red Blood Count 4.23 M/mm3 (4.2-5.4); White Blood Count 10.1 K/mm3 (4.4-11.0)
[2024-05-05 16:59] VITALS: BP 161/85; PULSE 95; RESP 18; TEMP 36.6; O2SAT 95
[2024-05-05 17:00] LABS: Alcohol, Blood (Medical)-Serum < 3.0 mg/dL
[2024-05-05 17:09] LABS: ALB/GLOB Ratio 0.8 RATIO (0.9-2.4); AST(SGOT) 34 U/L (15-37); Alanine Aminotransfer ALT/SGPT 39 U/L (13-56); Albumin, Serum 3.7 g/dL (3.2-5.0); Alkaline Phosphatase 105 U/L (45-117); Anion Gap 8 (5-15); BUN 18 mg/dL (7-18); BUN/Creat Ratio 25.6 RATIO (10-20); Calcium,Total 9.7 mg/dL (8.5-10.1); Chloride 108 mmol/L (98-107); EST Glomerular Filtration Rate 86 mL/min (>60); Est Glom Filt Rate - Afr Amer 104 mL/min (>60); Estimated Creatinine Clearance 49.51 ml/min; Globulin 4.4 g/dL (2.2-4.2); Glucose 106 mg/dL (74-106); Potassium 4.2 mmol/L (3.5-5.1); Protein, Total 8.1 g/dL (6.4-8.2); Sodium Level 139 mmol/L (136-145)
[2024-05-05 19:00] VITALS: BP 159/86; PULSE 95; RESP 18; O2SAT 95
== END 2024-05-05 19:55 | disposition short-term general hospital (02) ==
LOC: ED 15:28
PROVIDERS: Emergency Provider Emergency Medicine; PCP Family Medicine; Visit Provider Emergency Medicine
DX: S22.43XA Multiple fractures of ribs, bilateral, initial encounter for closed fracture (principal); E78.5 Hyperlipidemia, unspecified; I10 Essential (primary) hypertension; S60.211A Contusion of right wrist, initial encounter; W19.XXXA Unspecified fall, initial encounter; S51.802A Unspecified open wound of left forearm, initial encounter; E03.9 Hypothyroidism, unspecified; R29.6 Repeated falls; K21.9 Gastro-esophageal reflux disease without esophagitis; F41.9 Anxiety disorder, unspecified; F32.A Depression, unspecified
CPT/HCPCS: 71250; 73090; 73110; 80053; 82077; 85025; 93005; 99283; A4216

== ENCOUNTER 2024-05-09 21:36 | Inpatient (IN) | payer MEDICARE, SELFPAY ==
[2024-05-09 21:55] VITALS: BP 159/83; PULSE 84; RESP 16; TEMP 36.7; O2SAT 97; BMI 25.2
--- NOTE | 2024-05-09 22:54 | NURSING ---
Per Dr. Rodríguez will address admission in AM via confidential backline text. Duplicate synthroid and fluoxetine orders noted on discharge med list, written communication left for Dr. Rodríguez review in AM
[2024-05-09] MEDS: Senna/Docusate Sodium 1 Tablet PO (23:21)
[2024-05-09] MEDS: Gabapentin 100 MG Capsule PO (23:21)
[2024-05-10] MEDS: Methocarbamol 500 MG Tablet PO (00:37)
[2024-05-10 05:47] LABS: Absolute Lymphocyte Count 2.19 X10^3/uL (0.83-4.51); Absolute Neutrophil Count 4.6 X10^3/uL (2.0-7.7); Basophil# 0.06 X10^3/uL; Basophil% 0.7 % (0-1); Eosinophil# 0.52 X10^3/uL; Eosinophils% 6.4 % (0-5); Hematocrit 37.2 % (37-47); Lymphocyte # 2.19 X10^3/ul (0.83-4.51); Lymphocyte % 26.9 % (19-41); Mean Corp Hgb Conc 32.3 g/dL (32-36); Mean Corpuscular Hgb 30.6 pg (27.0-32.0); Mean Corpuscular Volume 94.9 fL (81-99); Mean Platelet Vol. 10.1 fl (6.2-12.0); Monocyte# 0.71 X10^3/uL; Monocyte% 8.7 % (0-10); NRBC Flagged by Analyzer 0 % (0-5); Neutrophil # 4.63 X10^3/uL (2.7-7.7); Neutrophil % 57.1 % (47-70); Platelet Count 304 K/mm3 (150-450); RBC Distribution Width CV 12.9 % (11.6-14.6); RBC Distribution Width SD 44.9 fl (35.1-43.9); Red Blood Count 3.92 M/mm3 (4.2-5.4); White Blood Count 8.1 K/mm3 (4.4-11.0)
[2024-05-10] MEDS: Gabapentin 100 MG Capsule PO ×3 (06:09→21:08)
[2024-05-10] MEDS: Levothyroxine 100 MCG Tablet PO (06:09)
[2024-05-10] MEDS: Acetaminophen 325 MG Tablet 975 MG PO (06:10)
[2024-05-10 06:47] LABS: Anion Gap 12 (5-15); BUN 23 mg/dL (4-19); BUN/Creat Ratio 41.5 RATIO (10-20); Carbon Dioxide 23.6 mmol/L (22.0-29.0); Chloride 104 mmol/L (96-108); Creatinine, Serum 0.6 mg/dL (0.6-1.0); EST Glomerular Filtration Rate 94 (>60); Glucose 92 mg/dL (70-99); Potassium 4.6 mmol/L (3.3-5.1); Sodium Level 140 mmol/L (133-145)
[2024-05-10 06:55] VITALS: O2SAT 96
--- NOTE | 2024-05-10 07:44 | PCM.HP.STD ---
[facility] General Date of Admission: 05/09/24 Date of Service: 05/10/24 Chief Complaint: Here for rehabilitation. [facility] Narrative MICAELA COCHRAN, is a 78 Female who presents with followin05/05/2024 Admit to [facility] for ground level fall, trauma. Traumatic injuries: 1. Nondisplaced posterior 10th and 11th right rib fractures. 2. Nondisplaced lateral 4th-8th left rib fractures. 3. Severe compression fracture of T11. Neurosurgery was consulted to help manage her spine fracture. Ultimately all of her injuries were treated conservatively with non-operative management. She was given a TLSO back brace to wear whenever she was out of bed. She was given as needed pain medication. A repeat chest x-ray was completed on 05/06/2024 and was stable. She was evaluated by physical therapy who recommended placement at [facility]. 05/09/2024 Admit to TCU with debility, here for rehabilitation, strengthening, prior to discharge home with . [facility] Medical History (Updated 05/10/24 @ 07:[address] Odilon Rodríguez MD) Hypothyroid Non-smoker Sleep apnea Hypertension Migraines Chronic anemia Obesity Anxiety and depression GERD (gastroesophageal reflux disease) HLD (hyperlipidemia) PAF (paroxysmal atrial fibrillation) Fibromyalgia Osteoporosis Paroxysmal atrial fibrillation T12 compression fracture Closed right hip fracture Syncope Home Medications ?Medication ?Instructions ?Recorded ?Last Taken ?Type alendronate 70 mg tablet 70 mg PO UD osteoporosis 09/07/22 Unknown History atorvastatin 20 mg tablet 20 mg PO QHS HLD 09/07/22 09/09/22 History fluoxetine 40 mg capsule 40 mg PO DAILY depression 09/07/22 09/10/22 History omeprazole 20 mg capsule,delayed 20 mg PO DAILY GERD 09/07/22 05/09/24 History release calcium carbonate 500 mg (2.5 x 200 mg calcium (500 09/10/22 09/10/22 Rx mg)) PO TIDCM supplement #30 tabs oxycodone 5 mg tablet 5 mg PO Q6H PRN PRN Pain Score 09/28/22 05/09/24 18:10 Rx 1-10 7 days #28 tabs sennosides 8.6 mg-docusate sodium 2 tab PO BID 30 days #120 tabs 09/28/22 Unknown Rx 50 mg tablet (Stool Softener-Stimulant Laxative) levothyroxine 100 mcg tablet 100 mcg PO DAILY THYROID 05/05/24 05/09/24 History meclizine 25 mg chewable tablet 25 mg PO TID PRN PRN dizziness 05/09/24 Unknown History Allergy/AdvReac Type Severity Reaction Status Date / Time codeine Allergy Unknown Verified 05/05/24 15:08 codeine phosphate (From AdvReac Unknown Verified 05/05/24 15:08 Tylenol-Codeine #3) nabumetone (From Relafen) AdvReac Unknown Verified 05/05/24 15:08 naproxen AdvReac Unknown Verified 05/05/24 15:08 Family History Mother Cancer Father Cancer Surgical History S/P ORIF (open reduction internal fixation) fracture History of section H/O ovarian cystectomy History of total right hip replacement S/P kyphoplasty S/P ORIF (open reduction internal fixation) fracture Social History household members: spouse Smoking Status: Never smoker alcohol intake: never substance use type: does not use ROS Constitutional Constitutional: Reports weakness; Denies chills, fever(s) or weight gain ENT HEENT: Denies headache(s), nasal congestion or nasal discharge Cardiovascular Cardiovascular: Denies chest pain or palpitations Respiratory/Chest Respiratory/Chest: Denies cough, excessive phlegm production or shortness of breath with exertion Gastrointestinal Gastrointestinal: Denies abdominal pain, nausea or vomiting Genitourinary Genitourinary: Denies dysuria Musculoskeletal Musculoskeletal: Denies joint pain or joint swelling Integumentary Integumentary: Denies rash or wounds Neurologic Neurologic: Denies focal weakness, numbness or tingling Psychiatric Psychiatric: Denies anxiety, auditory hallucinations, depression, homicidal ideation or suicidal ideation Vital Signs Vital Signs Vital Signs: 05/09/24 21:55 05/09/24 21:55 Temperature 98.0 F Temperature Source Temporal Pulse Rate 84 84 Pulse Rhythm Regular Pulse Strength Normal (2+) Respiratory Rate 16 16 Respiratory Effort Normal Non-Labored Respiratory Depth Normal Respiratory Pattern Normal Blood Pressure 159/83 H Blood Pressure Mean 108 Pulse Ox 97 Oxygen Delivery Method Nasal Cannula Nasal Cannula Oxygen Flow Rate (L/min) 2 2 Weight Weight: 58.542 kg Body Mass Index (BMI) 25.2 Physical Exam Const alert General Appearance: cooperative HEENT normocephalic Eyes PERRL and EOMs intact bilaterally Neck supple, no JVD and no carotid bruits Resp normal respiratory effort, normal air movement and clear to auscultation bilaterally Cardio regular rate and regular rhythm GI normal to inspection, nondistended, normoactive bowel sounds, non-tender and non-distended Extremity normal capillary refill General Extremity: Negative for edema Skin no rashes or lesions noted General Skin Exam: no breakdown Psych affect normal Appearance: appropriate Results Lab / Micro Data 05/10/24 05:15 05/10/24 05:15 Labs: Laboratory Results - last 24 hr 05/10/24 05:15: WBC 8.1, RBC 3.92 L, Hgb 12.0, Hct 37.2, MCV 94.9, MCH 30.6, MCHC 32.3, RDW Std Deviation 44.9 H, RDW Coeff of Serafin 12.9, Plt Count 304, MPV 10.1, Immature Gran % (Auto) 0.200, Neut % (Auto) 57.1, Lymph % (Auto) 26.9, [place] % (Auto) 8.7, Eos % (Auto) 6.4 H, Baso % (Auto) 0.7, Absolute Neuts (auto) 4.6, Absolute Lymphs (auto) 2.19, Nucleated RBC % 0, Sodium 140, Potassium 4.6, Chloride Direct 104, Carbon Dioxide 23.6, Anion Gap 12, BUN 23 H, Creatinine 0.6, Estim Creat Clear Calc 47.90, Est GFR (MDRD) Non-Af 94, BUN/Creatinine Ratio 41.5 H, Glucose 92, Calcium 9.0 Assessment & Plan Assessment/Plan (1) Debility: (2) Multiple rib fractures: (3) Compression fracture of T11 vertebra: (4) Osteoporosis: (5) HLD (hyperlipidemia): (6) Depression: (7) Hypothyroid: QUALIFIERS: Hypothyroidism type: unspecified Qualified Code(s): E03.9 - Hypothyroidism, unspecified (8) GERD (gastroesophageal reflux disease): (9) BPPV (benign paroxysmal positional vertigo): (10) Migraines: PLAN: Plan 78 year old female with below past medical history hospitalized for fall, multiple rib fractures, compression fracture T11, treated non-operatively, admitted to TCU with debility, here for rehabilitation, strengthening, prior to discharge home with . Debility - PT/OT. Dysphagia - ST. Pain - Tylenol 1000mg q8, Oxycodone 5mg q4 prn pain (1-10), Lidoderm 1 patch td daily. Bowel - Miralax 17gm daily, senna/colace 2 tablets bid, Magnesium citrate 300mL po x 1 dose, KUB. Adult immunization - Administer pneumonia vaccine, covid vaccine, flu vaccine as appropriate. DVT prophylaxis - Lovenox 40mg sc daily. Osteoporosis - Alendronate 70mg qweek, Calcium D 1 tablet daily, Vitamin D3 50mcg daily. 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 Neuropathic pain - Gabapentin 100mg tid thru 05/23/2024. Hypothyroidism - Levothyroxine 100mcg daily. BPPV - Meclizine 25mg tid prn. Muscle spasm - Robaxin 500mg tid prn. Nutrition - MVI 1 tablet daily. GERD - Pantoprazole 20mg daily. Rash - Triamcinolone cream topical bid.
[2024-05-10] MEDS: Senna/Docusate Sodium 1 Tablet 2 TABLET PO ×2 (09:03→21:08)
[2024-05-10] MEDS: Pantoprazole Sodium 20 MG Tablet PO (09:03)
[2024-05-10] MEDS: Multivitamins,Ther W-Minerals Tablet 1 TABLET PO (09:04)
[2024-05-10] MEDS: Calcium Carb/Vitamin D 1 TABLET Tablet PO (09:04)
[2024-05-10] MEDS: Cholecalciferol (VIT D3) 25 MCG TABLET (1,000 UNITS) 50 MCG PO (09:04)
[2024-05-10] MEDS: Fluoxetine HCl 40 MG CAPSULE PO (09:04)
[2024-05-10] MEDS: Polyethylene Glycol 3350 17 GM PACKET PO (09:04)
[2024-05-10] MEDS: Lidocaine 5% Patch 1 PATCH TOPICAL (09:05)
[2024-05-10] MEDS: Triamcinolone 0.1% Ointment 15 gm tube 1 APPLIC TOPICAL (09:06)
--- NOTE | 2024-05-10 09:14 | NURSING ---
Addendum entered by Lexis Boyle 05/10/24 09:32: Call back from Tory, she clarified brace only needs to be worn for comfort. Asked about follow-up appts, she said she has one scheduled for June 18, at 10:00. Xrays scheduled for 944 same morning. Original Note: Left VM with Dr. Akers's office about brace, asking if resident could be allowed to use only with long ambulation as it's bulky and uncomfortable while sitting up. Await return call.
[2024-05-10 09:22] VITALS: BP 133/74; PULSE 105; RESP 16; TEMP 36.4; O2SAT 98
--- NOTE | 2024-05-10 09:25 | RAD_ITS ---
PROCEDURE: ABDOMEN SINGLE VIEW REASON FOR EXAM: Constipation TECHNIQUE: Single view abdomen. COMPARISON: None FINDINGS: Bowel gas pattern is normal. No evidence of bowel obstruction. Large amount of fecal debris throughout the colon. No suspicious calcifications. Status post vertebral body augmentation at T12. compression screws and intramedullary rods are noted fixing old bilateral intertrochanteric fractures. Osteoporosis. Old fracture deformity of the right superior and inferior pubic rami. RAD/Abdomen Single View IMPRESSION: Large amount of fecal debris throughout the colon consistent with constipation. Other nonacute findings detailed above. Reading Location: [place] [id number]
[2024-05-10] MEDS: Tuberculin,Purif.prot.deriv. 50 TU/ML Vial 0.1 ML ID (10:54)
[2024-05-10] MEDS: Magnesium Citrate 300 ML PO (10:54)
[2024-05-10] MEDS: FLU VACCINE **HIGH DOSE** TV 24-25 180 MCG/0.5 ML SYRINGE IM (10:54)
--- NOTE | 2024-05-10 14:07 | CASEMGMT ---
Social Work SW met with patient to complete initial assessment. Introduced self and role. Verified/updated contacts. Patient confirmed code status full code. Educated to [facility] insurance with [employer] 05/14 and continued stay is not guaranteed with each review. Pt's goal is to return home with . SW will continue to follow for DC planning. Jerilyn Sadler MSW COSTUME SHOP COORDINATOR
[2024-05-10] MEDS: Acetaminophen 500 MG Tablet 1000 MG PO ×2 (14:22→21:09)
--- NOTE | 2024-05-10 15:09 | PCM.PN.DRR ---
Documented by User: Mildred Salas 05/10/24 15:26 TCU RX Drug Regimen Review Subjective/Objective Subjective/Objective Subjective: TCU Admission. 78 YOF presented to ER after a fall, transferred to [facility]. Hospitalized for fall, multiple rib fractures, compression fracture T11, treated non-operatively. Admitted to TCU with debility for strengthening and rehabilitation. Objective: Allergies codeine Allergy (Verified 05/05/24 15:08) Unknown codeine phosphate (From Tylenol-Codeine #3) Adverse Reaction (Verified 05/05/24 15:08) Unknown nabumetone (From Relafen) Adverse Reaction (Verified 05/05/24 15:08) Unknown naproxen Adverse Reaction (Verified 05/05/24 15:08) Unknown Current Medications Generic Name Dose Route Start Last Admin Trade Name Freq PRN Reason Stop Dose Admin Acetaminophen 1,000 mg 05/10/24 14:00 05/10/24 14:22 Acetaminophen 500 Mg Tablet PO 1,000 mg Q8 LUANA Administration Alendronate Sodium 70 mg 05/13/24 06:00 Alendronate Sodium 70 Mg Tablet PO Isbell@0600 LUANA Atorvastatin Calcium 20 mg 05/10/24 22:00 Atorvastatin Calcium 20 Mg Tablet PO QHS LUANA Calcium/Vitamin D 1 tablet 05/10/24 08:00 05/10/24 09:04 Calcium Carb/Vitamin D 1 Tablet Tablet PO 1 tablet DAILYCM LUANA Administration Cholecalciferol 50 mcg 05/10/24 10:00 05/10/24 09:04 Cholecalciferol (Vit D3) 25 Mcg Tablet (1,000 Units) PO 50 mcg DAILY LUANA Administration Enoxaparin Sodium 40 mg 05/11/24 06:00 Enoxaparin 40 Mg/0.4 Ml Syringe SC DAILY@0600 LUANA Fluoxetine HCl 40 mg 05/10/24 10:00 05/10/24 09:04 Fluoxetine Hcl 40 Mg Capsule PO 40 mg DAILY LUANA Administration Gabapentin 100 mg 05/09/24 22:37 05/10/24 14:22 Gabapentin 100 Mg Capsule PO 05/23/24 22:38 100 mg Q8 LUANA Administration Levothyroxine Sodium 100 mcg 05/10/24 06:00 05/10/24 06:09 Levothyroxine 100 Mcg Tablet PO 100 mcg DAILY@0600 [facility] Administration Lidocaine 1 patch 05/10/24 10:00 05/10/24 09:05 Lidocaine 5% Patch TOPICAL 1 patch DAILY LUANA Administration Protocol Meclizine HCl 25 mg 05/09/24 22:20 Meclizine Hcl 25 Mg Tablet PO TID PRN PRN dizziness Methocarbamol 500 mg 05/09/24 22:39 05/10/24 00:37 Methocarbamol 500 Mg Tablet PO 500 mg TID PRN PRN Administration muscle spasm Multivitamins/Minerals 1 tablet 05/10/24 08:00 05/10/24 09:04 Multivitamins,Ther W-Minerals Tablet PO 1 tablet DAILYCM LUANA Administration Oxycodone HCl 5 mg 05/10/24 07:43 Oxycodone 5 Mg Tablet PO Q4H PRN PRN Pain Score 1-10 Pantoprazole Sodium 20 mg 05/10/24 10:00 05/10/24 09:03 Pantoprazole Sodium 20 Mg Tablet PO 20 mg DAILY LUANA Administration Polyethylene Glycol 17 gm 05/10/24 10:00 05/10/24 09:04 Polyethylene Glycol 3350 17 Gm Packet PO 17 gm DAILY LUANA Administration Senna/Docusate Sodium 2 tablet 05/10/24 10:00 05/10/24 09:03 Senna/Docusate Sodium 1 Tablet PO 2 tablet BID LUANA Administration Sodium Chloride 10 - 40 ml 05/09/24 23:03 0.9% Saline Lock 10 Ml Syringe IV UD PRN SALINE FLUSH Triamcinolone Acetonide 1 applic 05/09/24 22:30 05/10/24 09:06 Triamcinolone 0.1% Ointment 15 Gm Tube TOPICAL 1 appful BID LUANA Administration Protocol Tuberculin PPD 0.1 ml 05/17/24 10:00 Tuberculin,Purif.Prot.Deriv. 50 Tu/Ml Vial ID 05/17/24 10:01 X1 ONE Problem List Migraines (Acute) BPPV (benign paroxysmal positional vertigo) (Acute) GERD (gastroesophageal reflux disease) (Acute) Hypothyroid (Acute) Depression (Acute) HLD (hyperlipidemia) (Acute) Osteoporosis (Acute) Debility (Acute) Compression fracture of T11 vertebra (Acute) Multiple rib fractures (Acute) Vital Signs Temp Pulse Resp BP Pulse Ox O2 Del Method O2 Flow Rate 97.6 F L 105 H 16 133/74 H 98 Nasal Cannula 2 05/10/24 09:22 05/10/24 09:22 05/10/24 09:22 05/10/24 09:22 05/10/24 09:22 05/10/24 09:22 05/10/24 11:26 Oxygen Flow Rate (L/min) 2 Oxygen Delivery Method Nasal Cannula Weight: 58.542 kg Body Mass Index (BMI) 25.2 Sodium 140 mmol/L (133-145) 05/10/24 05:15 Potassium 4.6 mmol/L (3.3-5.1) 05/10/24 05:15 Carbon Dioxide 23.6 mmol/L (22.0-29.0) 05/10/24 05:15 Anion Gap 12 (5-15) 05/10/24 05:15 BUN 23 mg/dL (4-19) H 05/10/24 05:15 Creatinine 0.6 mg/dL (0.6-1.0) 05/10/24 05:15 Est GFR (MDRD) Non-Af 94 (>60) 05/10/24 05:15 BUN/Creatinine Ratio 41.5 RATIO (10-20) H 05/10/24 05:15 Glucose 92 mg/dL (70-99) 05/10/24 05:15 Assessment/Plan: 1. Pain: acetaminophen 1000mg PO Q8, oxycodone 5mg PO Q4H PRN pain (1-10) and lidocaine 5% patch topical daily. Please continue to monitor for increased pain, rash and PRN usage. 2. Bowel: Miralax 17gm PO daily, senna/docusate 2T PO BID and magnesium citrate 300mL PO x1 today. Please continue to monitor for constipation and PRN usage. Last documented bowel movement 05/05. 3. DVT prophylaxis: enoxaparin 40mg SC daily. Please continue to monitor for S/S of bleeding/DVT, hemoglobin (last 12g/dL), platelets (last 304,000) and renal function. 4. Osteoporosis: alendronate 70mg PO weekly, calcium/vitamin D 1T PO daily and cholecalciferol 50mcg PO daily. Please continue to monitor calcium (last 9mg/dL), vitamin D (last 09/09/22), renal function, jaw pain and BMD. Please administer alendronate first thing in the morning with a full glass of water on an empty stomach. 5. Hypothyroidism: levothyroxine 100mcg PO daily. Please continue to monitor TSH (last 09/08/22) and S/S of hypo/hyperthyroidism. 6. BPPV: meclizine 25mg PO TID PRN dizziness. No doses given. Please continue to monitor for PRN usage and dizziness. 7. Muscle spasm: methocarbamol 500mg PO TID PRN muscle spasm. Resident has had 1 dose. Please continue to monitor for PRN usage, muscle spasm and anticholinergic side effects (BEERs). 8. GERD: pantoprazole 20mg PO daily. Please continue to monitor for S/S of GERD and diarrhea (BEERs). 9. Rash: triamcinolone cream topical BID. Please continue to monitor for rash. 10. Nutrition: multivitamin with minerals. Please continue to monitor. 11. Hyperlipidemia: atorvastatin 20mg PO QHS. Please consider ordering a lipid panel as the last panel is from 2016. Thanks. Please continue to monitor for muscle pain and LFTs (last 05/05/24). Assessment/Plan for indications treated with psychotropic medications: 1. Depression: fluoxetine 40mg PO daily. Please see physician note regarding GDR. Please continue to monitor for suicidal ideation (suicidal ideation), falls/fractures (BEERs) and sodium (last 140mmol/L). 2. Neuropathic pain: gabapentin 100mg PO TID thru 05/23/24. Please continue to monitor for neuropathic pain, confusion, renal function and falls/fractures (BEERs). Medical chart and medication regimen reviewed. The following medication irregularities or issues were identified: 1. Atorvastatin 20mg PO QHS. Please consider ordering a lipid panel as the last panel is from 2016. Thanks. Date Date of Note: 05/10/24 Documented by User: Dr. Odilon Rodríguez MD 05/10/24 17:22 TCU RX Drug Regimen Review Provider Comments Provider responsibility Provider Comments to Recommendations by Pharmacy Agree
[2024-05-10 20:13] VITALS: PULSE 65; RESP 18
[2024-05-10] MEDS: Atorvastatin Calcium 20 MG Tablet PO (21:10)
[2024-05-11] MEDS: Acetaminophen 500 MG Tablet 1000 MG PO ×3 (05:22→21:13)
[2024-05-11] MEDS: Enoxaparin 40 MG/0.4 ML Syringe SC (05:22)
[2024-05-11] MEDS: Levothyroxine 100 MCG Tablet PO (05:22)
[2024-05-11] MEDS: Gabapentin 100 MG Capsule PO ×3 (05:22→21:13)
--- NOTE | 2024-05-11 06:58 | NURSING ---
Pt. requests Kenalog be changed to PRN, crackles auscultated to posterior lower lobes bilat. Written communication left for .
[2024-05-11 07:48] LABS: Cholesterol 124 mg/dL (<=200); High Density Lipoprotein 52 mg/dL; Low Density Lipoprotein Calc. 59 mg/dL; Triglycerides 65 mg/dL; Very Low Density Lipoprotein 13 mg/dL (5-40)
--- NOTE | 2024-05-11 07:49 | RAD_ITS ---
PROCEDURE: CHEST PA AND LATERAL REASON FOR EXAM: Bibasilar crackles. TECHNIQUE: PA and lateral chest radiographs were obtained. COMPARISON: Comparison is made with prior study dated November 03, 2023 FINDINGS: Mild cardiomegaly. Bibasilar patchy infiltrates worse on the left side with blunting of the left costophrenic angle. Linear densities in the right mid lung suggestive of atelectasis. Healed right rib fractures. Calcification of the aortic arch. Large hiatal hernia. Almost complete collapse of the L1 vertebrae with prior vertebroplasty. RAD/Chest PA and Lateral IMPRESSION: Patchy bibasilar infiltrates more prominent on the left side with blunting of t he left costophrenic angle. Increased markings in the right mid lung. Large hiatal hernia. Reading Location: [id number]
[2024-05-11] MEDS: Multivitamins,Ther W-Minerals Tablet 1 TABLET PO (09:07)
[2024-05-11] MEDS: Senna/Docusate Sodium 1 Tablet 2 TABLET PO ×2 (09:07→21:13)
[2024-05-11] MEDS: Lidocaine 5% Patch 1 PATCH TOPICAL (09:07)
[2024-05-11] MEDS: Cholecalciferol (VIT D3) 25 MCG TABLET (1,000 UNITS) 50 MCG PO (09:07)
[2024-05-11] MEDS: Pantoprazole Sodium 20 MG Tablet PO (09:07)
[2024-05-11] MEDS: Polyethylene Glycol 3350 17 GM PACKET PO (09:07)
[2024-05-11] MEDS: Calcium Carb/Vitamin D 1 TABLET Tablet PO (09:07)
[2024-05-11] MEDS: Fluoxetine HCl 40 MG CAPSULE PO (09:07)
[2024-05-11 09:11] VITALS: BP 122/72; PULSE 96; RESP 16; TEMP 36.7; O2SAT 92
[2024-05-11] MEDS: Electrolyte Solution/Peg's 4000 ML 1000 ML PO (09:44)
[2024-05-11 13:42] VITALS: O2SAT 93
[2024-05-11] MEDS: levoFLOXacin 750 MG Tablet PO (15:41)
--- NOTE | 2024-05-11 15:52 | CHAPLAIN ---
Type of Pastoral Visit _x__ Initial Visit ___ Follow-up Visit ___ On-call Visit ___ General Patient Visit ___ Spiritual Assessment ___ Family Conference ___ Bereavement ___ Rapid Response ___ Code Blue ___ Other (describe below) Pastoral Care Referral From _x__ Patient ___ Family ___ Nurse ___ Physician ___ Video Production Assistant ___ Geochemical Manager ___ Other (describe below) Sacrament/Intervention _x__ Active listening ___ Anointing ___ Denominational ___ Bereavement ___ Communion _x__ [place] exploration ___ ___ Life review _x__ Prayer ___ Reconciliation ___ Sacrament of Sick _x__ Supportive presence ___ Wedding ___ Other (describe below) Pastoral Comments patient and spouse are in the room; both are welcoming but patient says that she hopes to get a nap soon; offered support and listened to patient lament her recent falls and injury with a sense of being so clumsy; patient has a good connection with a local orthodox and has many family members that live close by; both welcome a prayer for today; brief visit since pt wanted to rest
[2024-05-11] MEDS: Atorvastatin Calcium 20 MG Tablet PO (21:13)
[2024-05-12] MEDS: Acetaminophen 500 MG Tablet 1000 MG PO ×3 (05:00→21:03)
[2024-05-12] MEDS: Gabapentin 100 MG Capsule PO ×3 (05:00→21:03)
[2024-05-12] MEDS: Levothyroxine 100 MCG Tablet PO (05:00)
[2024-05-12] MEDS: Enoxaparin 40 MG/0.4 ML Syringe SC (05:00)
[2024-05-12 07:35] VITALS: O2SAT 93
[2024-05-12] MEDS: Lidocaine 5% Patch 1 PATCH TOPICAL (09:39)
[2024-05-12] MEDS: Calcium Carb/Vitamin D 1 TABLET Tablet PO (09:40)
[2024-05-12] MEDS: Multivitamins,Ther W-Minerals Tablet 1 TABLET PO (09:40)
[2024-05-12] MEDS: Polyethylene Glycol 3350 17 GM PACKET PO (09:40)
[2024-05-12] MEDS: Cholecalciferol (VIT D3) 25 MCG TABLET (1,000 UNITS) 50 MCG PO (09:40)
[2024-05-12] MEDS: Pantoprazole Sodium 20 MG Tablet PO (09:40)
[2024-05-12] MEDS: Fluoxetine HCl 40 MG CAPSULE PO (09:40)
[2024-05-12] MEDS: Senna/Docusate Sodium 1 Tablet 2 TABLET PO ×2 (09:40→21:03)
[2024-05-12 14:28] VITALS: BP 121/78; PULSE 100; RESP 20; TEMP 36.7; O2SAT 94
--- NOTE | 2024-05-12 18:56 | NURSING ---
Pt C/O of not being able to sleep last night. Dr. Rodríguez Updated N.O. for Melatonin 3mg PRN QHS. Order read back.
[2024-05-12] MEDS: Atorvastatin Calcium 20 MG Tablet PO (21:03)
[2024-05-12 21:20] VITALS: PULSE 89; RESP 16; O2SAT 95
[2024-05-12] MEDS: MELATONIN 3 MG TABLET PO (22:24)
[2024-05-13] MEDS: Enoxaparin 40 MG/0.4 ML Syringe SC (06:17)
[2024-05-13] MEDS: Levothyroxine 100 MCG Tablet PO (06:18)
[2024-05-13] MEDS: levoFLOXacin 750 MG Tablet PO (06:19)
[2024-05-13] MEDS: Acetaminophen 500 MG Tablet 1000 MG PO ×3 (06:19→21:29)
[2024-05-13] MEDS: Alendronate Sodium 70 MG Tablet PO (06:19)
[2024-05-13] MEDS: Gabapentin 100 MG Capsule PO ×3 (06:22→21:28)
[2024-05-13 08:05] VITALS: O2SAT 93
[2024-05-13] MEDS: Calcium Carb/Vitamin D 1 TABLET Tablet PO (08:12)
[2024-05-13] MEDS: Multivitamins,Ther W-Minerals Tablet 1 TABLET PO (08:12)
[2024-05-13] MEDS: Pantoprazole Sodium 20 MG Tablet PO (09:21)
[2024-05-13] MEDS: Lidocaine 5% Patch 1 PATCH TOPICAL (09:21)
[2024-05-13] MEDS: Polyethylene Glycol 3350 17 GM PACKET PO (09:21)
[2024-05-13] MEDS: Fluoxetine HCl 40 MG CAPSULE PO (09:22)
[2024-05-13] MEDS: Senna/Docusate Sodium 1 Tablet 2 TABLET PO ×2 (09:23→21:30)
[2024-05-13] MEDS: Cholecalciferol (VIT D3) 25 MCG TABLET (1,000 UNITS) 50 MCG PO (13:08)
[2024-05-13 15:47] VITALS: BP 130/72; PULSE 91; RESP 17; TEMP 36.4; O2SAT 95
[2024-05-13] MEDS: Atorvastatin Calcium 20 MG Tablet PO (21:29)
[2024-05-14] MEDS: Gabapentin 100 MG Capsule PO ×3 (06:15→20:41)
[2024-05-14] MEDS: Enoxaparin 40 MG/0.4 ML Syringe SC (06:15)
[2024-05-14] MEDS: Levothyroxine 100 MCG Tablet PO (06:15)
[2024-05-14] MEDS: Acetaminophen 500 MG Tablet 1000 MG PO ×3 (06:25→20:41)
[2024-05-14] MEDS: Senna/Docusate Sodium 1 Tablet 2 TABLET PO (07:54)
[2024-05-14] MEDS: Lidocaine 5% Patch 1 PATCH TOPICAL (07:54)
[2024-05-14] MEDS: Polyethylene Glycol 3350 17 GM PACKET PO (07:54)
[2024-05-14] MEDS: Multivitamins,Ther W-Minerals Tablet 1 TABLET PO (07:54)
[2024-05-14] MEDS: Cholecalciferol (VIT D3) 25 MCG TABLET (1,000 UNITS) 50 MCG PO (07:54)
[2024-05-14] MEDS: Pantoprazole Sodium 20 MG Tablet PO (07:54)
[2024-05-14] MEDS: Calcium Carb/Vitamin D 1 TABLET Tablet PO (07:54)
[2024-05-14] MEDS: Fluoxetine HCl 40 MG CAPSULE PO (07:54)
[2024-05-14 08:00] VITALS: BP 128/72; PULSE 93; RESP 18; O2SAT 95
--- NOTE | 2024-05-14 08:22 | NURSING ---
Radiation Protection Technician Note; Activity Asset: Sarah Decker has returned to TCU for Therapy. She remains in dependent in her choice of daily activities. Brianne enjoys reading, tv, word puzzles, talking w/others and spending time w/family and friends. She welcomes visits from the electronic parts designer and therapy dog when available. Staff will encourage social activities, remind her of groups activities and respect her right to say no.
[2024-05-14 09:28] VITALS: O2SAT 94
--- NOTE | 2024-05-14 10:36 | NURSING ---
Offered covid vaccine, VIS provided. Resident declines at this time.
[2024-05-14 11:46] VITALS: O2SAT 92
[2024-05-14 13:15] VITALS: PULSE 93; RESP 18; O2SAT 95
--- NOTE | 2024-05-14 13:47 | NURSING ---
Dressing to left forearm changed per orders. Tolerated well. Scant amount of drainage noted on old bandage. Area cleansed and dried. Adaptic applied topically to wound bed. Cover with gauze and wrapped with Kerlix. No C/O's voiced.
[2024-05-14] MEDS: Magnesium Citrate 300 ML PO (17:31)
[2024-05-14] MEDS: Atorvastatin Calcium 20 MG Tablet PO (20:42)
[2024-05-15] MEDS: Enoxaparin 40 MG/0.4 ML Syringe SC (05:45)
[2024-05-15] MEDS: levoFLOXacin 750 MG Tablet PO (05:45)
[2024-05-15] MEDS: Gabapentin 100 MG Capsule PO ×3 (05:46→21:17)
[2024-05-15] MEDS: Acetaminophen 500 MG Tablet 1000 MG PO ×3 (05:46→21:17)
[2024-05-15] MEDS: Levothyroxine 100 MCG Tablet PO (05:46)
[2024-05-15] MEDS: Pantoprazole Sodium 20 MG Tablet PO (07:46)
[2024-05-15] MEDS: Cholecalciferol (VIT D3) 25 MCG TABLET (1,000 UNITS) 50 MCG PO (07:46)
[2024-05-15] MEDS: Fluoxetine HCl 40 MG CAPSULE PO (07:46)
[2024-05-15] MEDS: Calcium Carb/Vitamin D 1 TABLET Tablet PO (07:46)
[2024-05-15] MEDS: Polyethylene Glycol 3350 17 GM PACKET PO (07:46)
[2024-05-15] MEDS: Multivitamins,Ther W-Minerals Tablet 1 TABLET PO (07:46)
[2024-05-15] MEDS: Senna/Docusate Sodium 1 Tablet 2 TABLET PO (07:46)
[2024-05-15] MEDS: Lidocaine 5% Patch 1 PATCH TOPICAL (07:46)
[2024-05-15 09:49] VITALS: BP 121/67; PULSE 82; RESP 18; TEMP 36.2; O2SAT 99
[2024-05-15 10:00] VITALS: O2SAT 99
[2024-05-15 13:31] VITALS: BMI 25.9
[2024-05-15] MEDS: Atorvastatin Calcium 20 MG Tablet PO (21:17)
[2024-05-16] MEDS: Enoxaparin 40 MG/0.4 ML Syringe SC (06:16)
[2024-05-16] MEDS: Levothyroxine 100 MCG Tablet PO (06:16)
[2024-05-16] MEDS: Gabapentin 100 MG Capsule PO ×3 (06:16→21:45)
[2024-05-16] MEDS: Acetaminophen 500 MG Tablet 1000 MG PO ×3 (06:16→21:47)
[2024-05-16 08:00] VITALS: BP 133/77; PULSE 80; RESP 17; TEMP 36.2; O2SAT 92
[2024-05-16] MEDS: Fluoxetine HCl 40 MG CAPSULE PO (08:07)
[2024-05-16] MEDS: Calcium Carb/Vitamin D 1 TABLET Tablet PO (08:07)
[2024-05-16] MEDS: Cholecalciferol (VIT D3) 25 MCG TABLET (1,000 UNITS) 50 MCG PO (08:07)
[2024-05-16] MEDS: Lidocaine 5% Patch 1 PATCH TOPICAL (08:08)
[2024-05-16] MEDS: Multivitamins,Ther W-Minerals Tablet 1 TABLET PO (08:08)
[2024-05-16] MEDS: Pantoprazole Sodium 20 MG Tablet PO (08:08)
[2024-05-16] MEDS: Senna/Docusate Sodium 1 Tablet 2 TABLET PO (08:10)
--- NOTE | 2024-05-16 08:30 | NURSING ---
Collection Systems Technician Note; MDS for 05/16/2024 Complete
--- NOTE | 2024-05-16 13:25 | CASEMGMT ---
Social Work IDT met with patient, , son, dtr, dtr's friend and aerospace engineer for care plan meeting. Discussed patient's progress in PT/OT/ST/SN. Educated to [facility] insurance with [employer] 05/18 and continued stay is not guaranteed with each review. Provided with written communication on insurance process and copay coverage during stay. Pt has spinal precautions and mild cognitive impairment. Encouraged to participate in therapy training to ensure he can care for pt at home. Recommended pt has 04/10 assistance. All parties expressed understanding. Pt is new on O22 as well. SW will continue to follow to assist with DC planning. Jerilyn Sadler INSURANCE BILLING SPECIALIST PHARMACY CLERK
[2024-05-16 14:12] VITALS: O2SAT 96
--- NOTE | 2024-05-16 16:41 | CASEMGMT ---
Social Work SW completed BIMS () and PHQ-2 () for MDS assessment. Jerilyn Sadler [employer]IGARET[employer] MACHINES MECHANIC ROUGH AND TRUING MACHINE OPERATOR
[2024-05-16] MEDS: Methocarbamol 500 MG Tablet PO (21:47)
[2024-05-16] MEDS: Atorvastatin Calcium 20 MG Tablet PO (21:47)
[2024-05-17] MEDS: Acetaminophen 500 MG Tablet 1000 MG PO ×3 (06:21→21:12)
[2024-05-17] MEDS: Gabapentin 100 MG Capsule PO ×3 (06:21→21:24)
[2024-05-17] MEDS: Levothyroxine 100 MCG Tablet PO (06:21)
[2024-05-17] MEDS: Methocarbamol 500 MG Tablet PO (06:21)
[2024-05-17] MEDS: Enoxaparin 40 MG/0.4 ML Syringe SC (06:21)
[2024-05-17] MEDS: levoFLOXacin 750 MG Tablet PO (06:21)
[2024-05-17 06:59] LABS: Absolute Lymphocyte Count 2.21 X10^3/uL (0.83-4.51); Absolute Neutrophil Count 4.9 X10^3/uL (2.0-7.7); Basophil# 0.09 X10^3/uL; Basophil% 1.1 % (0-1); Eosinophil# 0.38 X10^3/uL; Eosinophils% 4.5 % (0-5); Hematocrit 33.6 % (37-47); Lymphocyte # 2.21 X10^3/ul (0.83-4.51); Lymphocyte % 26.2 % (19-41); Mean Corp Hgb Conc 32.7 g/dL (32-36); Mean Corpuscular Hgb 31.2 pg (27.0-32.0); Mean Corpuscular Volume 95.2 fL (81-99); Mean Platelet Vol. 9.7 fl (6.2-12.0); Monocyte# 0.87 X10^3/uL; Monocyte% 10.3 % (0-10); NRBC Flagged by Analyzer 0 % (0-5); Neutrophil # 4.85 X10^3/uL (2.7-7.7); Neutrophil % 57.3 % (47-70); Platelet Count 435 K/mm3 (150-450); RBC Distribution Width CV 13.6 % (11.6-14.6); RBC Distribution Width SD 47.1 fl (35.1-43.9); Red Blood Count 3.53 M/mm3 (4.2-5.4); White Blood Count 8.5 K/mm3 (4.4-11.0)
[2024-05-17 07:35] LABS: Anion Gap 13 (5-15); BUN 24 mg/dL (4-19); BUN/Creat Ratio 34.2 RATIO (10-20); Calcium 8.6 mg/dL (7.6-11.0); Chloride 105 mmol/L (96-108); EST Glomerular Filtration Rate 90 (>60); Estimated Creatinine Clearance 48.49 ml/min (50-250); Glucose 90 mg/dL (70-99); Potassium 4.2 mmol/L (3.3-5.1); Sodium Level 139 mmol/L (133-145)
[2024-05-17] MEDS: Senna/Docusate Sodium 1 Tablet 2 TABLET PO ×2 (07:53→21:25)
[2024-05-17] MEDS: Multivitamins,Ther W-Minerals Tablet 1 TABLET PO (07:53)
[2024-05-17] MEDS: Fluoxetine HCl 40 MG CAPSULE PO (07:53)
[2024-05-17] MEDS: Cholecalciferol (VIT D3) 25 MCG TABLET (1,000 UNITS) 50 MCG PO (07:53)
[2024-05-17] MEDS: Pantoprazole Sodium 20 MG Tablet PO (07:53)
[2024-05-17] MEDS: Calcium Carb/Vitamin D 1 TABLET Tablet PO (07:53)
[2024-05-17] MEDS: Lidocaine 5% Patch 1 PATCH TOPICAL (07:53)
[2024-05-17 09:35] VITALS: BP 126/75; PULSE 90; RESP 18; TEMP 36.4; O2SAT 95
[2024-05-17] MEDS: Tuberculin,Purif.prot.deriv. 50 TU/ML Vial 0.1 ML ID (11:58)
[2024-05-17] MEDS: Atorvastatin Calcium 20 MG Tablet PO (21:25)
[2024-05-18] MEDS: Enoxaparin 40 MG/0.4 ML Syringe SC (05:32)
[2024-05-18] MEDS: Levothyroxine 100 MCG Tablet PO (05:32)
[2024-05-18] MEDS: Gabapentin 100 MG Capsule PO ×3 (05:32→22:12)
[2024-05-18] MEDS: Acetaminophen 500 MG Tablet 1000 MG PO ×3 (05:32→22:14)
[2024-05-18] MEDS: Fluoxetine HCl 40 MG CAPSULE PO (08:30)
[2024-05-18] MEDS: Multivitamins,Ther W-Minerals Tablet 1 TABLET PO (08:30)
[2024-05-18] MEDS: Calcium Carb/Vitamin D 1 TABLET Tablet PO (08:30)
[2024-05-18] MEDS: Senna/Docusate Sodium 1 Tablet 2 TABLET PO ×2 (08:31→22:13)
[2024-05-18] MEDS: Cholecalciferol (VIT D3) 25 MCG TABLET (1,000 UNITS) 50 MCG PO (08:31)
[2024-05-18] MEDS: Pantoprazole Sodium 20 MG Tablet PO (08:31)
[2024-05-18] MEDS: Polyethylene Glycol 3350 17 GM PACKET PO (08:31)
[2024-05-18] MEDS: Lidocaine 5% Patch 1 PATCH TOPICAL (08:31)
[2024-05-18 08:45] VITALS: BP 119/72; PULSE 89; RESP 18; TEMP 36.3; O2SAT 92
[2024-05-18 13:30] VITALS: PULSE 89; RESP 18; O2SAT 92
[2024-05-18] MEDS: Methocarbamol 500 MG Tablet PO (22:12)
[2024-05-18] MEDS: Atorvastatin Calcium 20 MG Tablet PO (22:15)
[2024-05-19] MEDS: Enoxaparin 40 MG/0.4 ML Syringe SC (06:53)
[2024-05-19] MEDS: Gabapentin 100 MG Capsule PO ×3 (06:53→21:00)
[2024-05-19] MEDS: Acetaminophen 500 MG Tablet 1000 MG PO ×3 (06:53→21:00)
[2024-05-19] MEDS: Levothyroxine 100 MCG Tablet PO (06:54)
[2024-05-19] MEDS: levoFLOXacin 750 MG Tablet PO (06:55)
[2024-05-19 06:57] VITALS: PULSE 77; RESP 16; O2SAT 95
[2024-05-19] MEDS: Multivitamins,Ther W-Minerals Tablet 1 TABLET PO (07:50)
[2024-05-19] MEDS: Cholecalciferol (VIT D3) 25 MCG TABLET (1,000 UNITS) 50 MCG PO (07:51)
[2024-05-19] MEDS: Calcium Carb/Vitamin D 1 TABLET Tablet PO (07:51)
[2024-05-19] MEDS: Lidocaine 5% Patch 1 PATCH TOPICAL (07:51)
[2024-05-19] MEDS: Fluoxetine HCl 40 MG CAPSULE PO (07:51)
[2024-05-19] MEDS: Senna/Docusate Sodium 1 Tablet 2 TABLET PO ×2 (07:51→21:00)
[2024-05-19] MEDS: Pantoprazole Sodium 20 MG Tablet PO (07:51)
[2024-05-19 13:40] VITALS: BP 144/75; PULSE 72; RESP 16; TEMP 36.6
[2024-05-19 16:33] VITALS: O2SAT 97
[2024-05-19] MEDS: Atorvastatin Calcium 20 MG Tablet PO (21:00)
[2024-05-20] MEDS: Enoxaparin 40 MG/0.4 ML Syringe SC (06:23)
[2024-05-20] MEDS: Gabapentin 100 MG Capsule PO ×3 (06:26→21:54)
[2024-05-20] MEDS: Acetaminophen 500 MG Tablet 1000 MG PO ×3 (06:26→21:54)
[2024-05-20] MEDS: Alendronate Sodium 70 MG Tablet PO (06:26)
[2024-05-20] MEDS: Levothyroxine 100 MCG Tablet PO (06:27)
[2024-05-20 07:06] VITALS: O2SAT 98
[2024-05-20 08:00] VITALS: BP 115/66; PULSE 88; RESP 16; TEMP 36.4; O2SAT 92
[2024-05-20] MEDS: Polyethylene Glycol 3350 17 GM PACKET PO (09:01)
[2024-05-20] MEDS: Lidocaine 5% Patch 1 PATCH TOPICAL (09:01)
[2024-05-20] MEDS: Pantoprazole Sodium 20 MG Tablet PO (09:02)
[2024-05-20] MEDS: Calcium Carb/Vitamin D 1 TABLET Tablet PO (09:02)
[2024-05-20] MEDS: Senna/Docusate Sodium 1 Tablet 2 TABLET PO (09:02)
[2024-05-20] MEDS: Cholecalciferol (VIT D3) 25 MCG TABLET (1,000 UNITS) 50 MCG PO (09:02)
[2024-05-20] MEDS: Fluoxetine HCl 40 MG CAPSULE PO (09:02)
[2024-05-20] MEDS: Multivitamins,Ther W-Minerals Tablet 1 TABLET PO (09:02)
[2024-05-20 09:30] VITALS: PULSE 88; RESP 16; O2SAT 92
[2024-05-20] MEDS: Atorvastatin Calcium 20 MG Tablet PO (21:54)
[2024-05-21] MEDS: Gabapentin 100 MG Capsule PO ×3 (06:27→21:02)
[2024-05-21] MEDS: Levothyroxine 100 MCG Tablet PO (06:28)
[2024-05-21] MEDS: Acetaminophen 500 MG Tablet 1000 MG PO ×3 (06:28→21:02)
[2024-05-21] MEDS: Enoxaparin 40 MG/0.4 ML Syringe SC (06:28)
[2024-05-21 07:20] VITALS: O2SAT 98
[2024-05-21] MEDS: Lidocaine 5% Patch 1 PATCH TOPICAL (08:08)
[2024-05-21] MEDS: Multivitamins,Ther W-Minerals Tablet 1 TABLET PO (08:10)
[2024-05-21] MEDS: Cholecalciferol (VIT D3) 25 MCG TABLET (1,000 UNITS) 50 MCG PO (08:10)
[2024-05-21] MEDS: Calcium Carb/Vitamin D 1 TABLET Tablet PO (08:10)
[2024-05-21] MEDS: Pantoprazole Sodium 20 MG Tablet PO (08:10)
[2024-05-21] MEDS: Fluoxetine HCl 40 MG CAPSULE PO (08:10)
--- NOTE | 2024-05-21 13:57 | MDS.RN ---
Information for the MDS was obtained from review of the clinical record, interview of resident, staff, and direct observation of resident?s care.
[2024-05-21 14:22] VITALS: BP 138/78; PULSE 76; RESP 16; TEMP 36.3; O2SAT 96
[2024-05-21 21:00] VITALS: PULSE 80; RESP 18; O2SAT 93
[2024-05-21] MEDS: Atorvastatin Calcium 20 MG Tablet PO (21:02)
[2024-05-22 01:00] VITALS: PULSE 87; RESP 16; O2SAT 95
[2024-05-22] MEDS: Acetaminophen 500 MG Tablet 1000 MG PO ×3 (06:29→21:18)
[2024-05-22] MEDS: Enoxaparin 40 MG/0.4 ML Syringe SC (06:29)
[2024-05-22] MEDS: Gabapentin 100 MG Capsule PO ×3 (06:29→21:18)
[2024-05-22] MEDS: Levothyroxine 100 MCG Tablet PO (06:29)
[2024-05-22] MEDS: Calcium Carb/Vitamin D 1 TABLET Tablet PO (08:34)
[2024-05-22] MEDS: Lidocaine 5% Patch 1 PATCH TOPICAL (08:34)
[2024-05-22] MEDS: Pantoprazole Sodium 20 MG Tablet PO (08:34)
[2024-05-22] MEDS: Cholecalciferol (VIT D3) 25 MCG TABLET (1,000 UNITS) 50 MCG PO (08:34)
[2024-05-22] MEDS: Fluoxetine HCl 40 MG CAPSULE PO (08:34)
[2024-05-22] MEDS: Multivitamins,Ther W-Minerals Tablet 1 TABLET PO (08:34)
[2024-05-22 09:38] VITALS: O2SAT 94
--- NOTE | 2024-05-22 10:02 | CASEMGMT ---
Addendum entered by Jerilyn Sadler 05/23/24 14:44: Pt is tolerating room air and no longer needs O2. [employer] updated. Addendum entered by Jerilyn Sadler 05/22/24 14:26: After family training, MAC requesting FWW for pt at home. Pt stated her current FWW is from [facility]. SW sent referral to [employer]. Addendum entered by Jerilyn Sadler 05/22/24 10:12: HHC SN was ordered as well. Original Note: Social Work Insurance issued LCD 05/24, DC 05/25 SW phoned to notify of DC date. Explained appeal rights. is ready for pt to come home. SW offered for to attend therapy session for hands-on training. stated he will be visiting this afternoon. Pt receives OT apprx 1300. agreed to be present. SW recommending skilled HHC. agreed and denied preference. SW offered list of agencies that include quality and resource data. agreed to [facility], but to ensure pt is agreeable as well. SW confirmed. to transport home. - SW updated MAC on family training. - SW spoke with pt on above. Pt agreeable to DC home with [facility]. Pt will get updated O2 testing to determine need for home. Likely will need at home and SW to refer to [employer]. - SW phoned referral to [facility] for PT/OT/ST. Referred to [employer] to O2. Plan: DC home with 05/25, [facility] PT/OT/ST, new O2. Jerilyn Sadler COMPENSATION ANALYST BUSINESS SUPPORT LIAISON
[2024-05-22 12:09] VITALS: BMI 25.4
[2024-05-22 15:05] VITALS: BP 133/72; PULSE 75; RESP 18; TEMP 36.5; O2SAT 95
[2024-05-22 15:21] VITALS: BP 133/72; PULSE 75; RESP 18; TEMP 36.5; O2SAT 93
--- NOTE | 2024-05-22 19:59 | PCM.DC.SUM ---
Providers Date of Admission: 05/09/24 Primary Care Physician: Dr. Jose Carlos Pompa MD Consultations 05/22/24 19:14 Consult: Onc/Wound/school childcare attendant Routine Comment: Reason For Visit: RIB FRACTURES Diagnosis Discharge Diagnosis (1) Debility: Status: Acute Code(s): R53.81 - Other malaise (2) Multiple rib fractures: Status: Inactive Code(s): S22.49XA - Multiple fractures of ribs, unspecified side, initial encounter for closed fracture (3) Compression fracture of T11 vertebra: Status: Inactive Code(s): S22.080A - Wedge compression fracture of T11-T12 vertebra, initial encounter for closed fracture (4) Osteoporosis: Status: Acute Code(s): M81.0 - Age-related osteoporosis without current pathological fracture (5) HLD (hyperlipidemia): Status: Acute Code(s): E78.5 - Hyperlipidemia, unspecified (6) Depression: Status: Acute Code(s): F32.A - Depression, unspecified (7) Hypothyroid: Status: Acute Code(s): E03.9 - Hypothyroidism, unspecified Qualifiers: Hypothyroidism type: unspecified Qualified Code(s): E03.9 - Hypothyroidism, unspecified (8) GERD (gastroesophageal reflux disease): Status: Acute Code(s): K21.9 - Gastro-esophageal reflux disease without esophagitis (9) BPPV (benign paroxysmal positional vertigo): Status: Acute Code(s): H81.10 - Benign paroxysmal vertigo, unspecified ear (10) Migraines: Status: Acute Code(s): G43.909 - Migraine, unspecified, not intractable, without status migrainosus Plan 78 year old female with below past medical history hospitalized for fall, multiple rib fractures, compression fracture T11, treated non-operatively, admitted to TCU with debility, here for rehabilitation, strengthening, prior to discharge home with . Debility - PT/OT. Dysphagia - ST. Pain - Tylenol 1000mg q8, Oxycodone 5mg q4 prn pain (1-10), Lidoderm 1 patch td daily. Bowel - Miralax 17gm daily, senna/colace 2 tablets bid, Magnesium citrate 300mL po x 1 dose, KUB. Adult immunization - Administer pneumonia vaccine, covid vaccine, flu vaccine as appropriate. DVT prophylaxis - Lovenox 40mg sc daily. Osteoporosis - Alendronate 70mg qweek, Calcium D 1 tablet daily, Vitamin D3 50mcg daily. Depression - Fluoxetine 40mg daily, stable chronic retirement use, GDR not recommended. Neuropathic pain - Gabapentin 100mg tid thru 05/23/2024. Hypothyroidism - Levothyroxine 100mcg daily. BPPV - Meclizine 25mg tid prn. Muscle spasm - Robaxin 500mg tid prn. Nutrition - MVI 1 tablet daily. GERD - Pantoprazole 20mg daily. Rash - Triamcinolone cream topical bid. Medications at Discharge Home Medications alendronate 70 mg tablet 70 mg PO UD osteoporosis 09/07/22 atorvastatin 20 mg tablet 20 mg PO QHS HLD 09/07/22 fluoxetine 40 mg capsule 40 mg PO DAILY depression 09/07/22 omeprazole 20 mg capsule,delayed release 20 mg PO DAILY GERD 09/07/22 calcium carbonate 500 mg (2.5 x 200 mg calcium (500 mg)) PO TIDCM supplement #30 tabs 09/10/22 levothyroxine 100 mcg tablet 100 mcg PO DAILY THYROID 05/05/24 acetaminophen 500 mg tablet 1,000 mg (2 x 500 mg) PO Q8 #0 tabs 05/22/24 cholecalciferol (vitamin D3) 25 mcg (1,000 unit) tablet 50 mcg (2 x 25 mcg (1,000 unit)) PO DAILY #0 tabs 05/22/24 gabapentin 100 mg capsule 100 mg PO Q8 30 days #90 caps 05/22/24 methocarbamol 500 mg tablet 500 mg PO TID PRN PRN muscle spasm 30 days #90 tabs 05/22/24 multivitamin-iron 9 mg-folic acid 400 mcg-calcium and minerals tablet (Therapeutic-M) 1 tab PO DAILYCM #0 tabs 05/22/24 Hospital Course Operations None Procedures None Summary of Care Provided Minutes Spent on Discharge: 35 Hospital Course: 78 year old female with below past medical history hospitalized for fall, multiple rib fractures, compression fracture T11, treated non-operatively, admitted to TCU with debility, here for rehabilitation, strengthening, prior to discharge home with . Discharge home with 05/25/2024, [facility] PT/OT/ST, new O2. Oxygen: Patient requires 1LPM of oxygen via nasal cannula d/t chronic respiratory failure 2/2 multiple rib fractures; requires a concentrator and portable O2 tanks to allow patient to be mobile in the home and the community; O2 will improve the patient's condition in the home setting. Physical Exam Const alert General Appearance: cooperative HEENT normocephalic Eyes PERRL and EOMs intact bilaterally Neck supple, no JVD and no carotid bruits Resp normal respiratory effort, normal air movement and clear to auscultation bilaterally Cardio regular rate and regular rhythm GI normal to inspection, nondistended, normoactive bowel sounds, non-tender and non-distended Extremity normal capillary refill General Extremity: Negative for edema Skin no rashes or lesions noted General Skin Exam: no breakdown Psych affect normal Appearance: appropriate Weight / BMI Weight Weight: 59.137 kg Body Mass Index (BMI) 25.4 ABG / Lab / Microbiology Data 05/17/24 05:14 05/17/24 05:14 D/C Instructions Discharge Diet: No restrictions Discharge Activity: Return to Normal Activity, May Shower and Use Walker Weight Bearing Status: Weight bearing as tolerated Call your doctor if you observe: Fever of 101 or Higher, Inability to urinate, Inability to have a bowel movement, Shortness of breath, Dizziness, Fainting spells, Swelling in the ankles, Chest pain and Uncontrolled pain DC O2, CPAP, BIPAP Needs PSN CPAP & BiPAP: BiPAP & CPAP Settings per PSN Fraction of Inspired Oxygen ( 99 05/15/24 11:50 FIO2) Home O2 Discharge instructions: Yes Type of respiratory needs?: Oxygen Oxygen frequency: Continuous Continuous oxygen liters per minute: 1 DC home with Oxygen: Yes Home O2 MD Review: I have reviewed the oxygen testing, and the patient qualifies for home oxygen equipment and portability. The patient is mobile in the home and the community. Please Follow Up With: TERRANCE AKERS MD When: As scheduled. Meaningful Use Info Meaningful Use Meaningful Use Diagnoses (Choose all that apply): None applicable Ischemic Stroke Statin Dosing Therapy Reference: STATIN DOSE THERAPY REFERENCE: * Patients > 75 years receive moderate or high dose statin therapy. * Patients 75 years or YOUNGER should receive HIGH intensity statin dose unless contraindicated. You will be required to document reason for non-treatment if statin daily dose does not meet guidelines. HIGH DOSE STATIN THERAPY DAILY Atorvastatin > than or = to 40 mg Rosuvastatin > than or = to 20 mg Amlodipine + Atorvastatin > than or = to 2.5/40 mg Ezetimibe + Simvastatin 10/80 mg Simvastatin 80mg Discharge Plan Admission Admit Date/Time: 05/09/24 21:36 Primary Reason for Your Visit: Debility. Attending Provider: Odilon Rodríguez Chi Primary Care Provider: Jose Carlos Pompa Instructions Additional Instructions / Restrictions: Discharge home with 05/25/2024, [facility] PT/OT/ST, new O2. Oxygen: Patient requires 1LPM of oxygen via nasal cannula d/t chronic respiratory failure 2/2 multiple rib fractures; requires a concentrator and portable O2 tanks to allow patient to be mobile in the home and the community; O2 will improve the patient's condition in the home setting. Discharge Orders/Prescriptions Prescriptions: New methocarbamol 500 mg Tablet 500 mg PO TID PRN PRN (Reason: muscle spasm) 30 Days Qty: 90 0RF acetaminophen 500 mg Tablet 1,000 mg PO Q8 Qty: 0 0RF gabapentin 100 mg Capsule 100 mg PO Q8 30 Days Qty: 90 0RF cholecalciferol (vitamin D3) 25 mcg (1,000 unit) Tablet 50 mcg PO DAILY Qty: 0 0RF Therapeutic-M 9 mg iron-400 mcg Tablet 1 tab PO DAILYCM Qty: 0 0RF Continued fluoxetine 40 mg capsule 40 mg PO DAILY atorvastatin 20 mg tablet 20 mg PO QHS alendronate 70 mg tablet 70 mg PO UD Rx Instructions: weekly. omeprazole 20 mg capsule,delayed release(DR/EC) 20 mg PO DAILY calcium carbonate 200 mg calcium (500 mg) Tablet,Chewable 500 mg PO TIDCM Qty: 30 0RF levothyroxine 100 mcg tablet 100 mcg PO DAILY Patient Comments: [NO ORIGINAL SIG] Discontinued sennosides-docusate sodium [Stool Softener-Stimulant Laxat] 8.6-50 mg Tablet 2 tab PO BID 30 Days Qty: 120 0RF oxycodone 5 mg Tablet 5 mg PO Q6H PRN PRN (Reason: Pain Score 1-10) 7 Days Qty: 28 0RF meclizine 25 mg tablet,chewable 25 mg PO TID PRN PRN (Reason: dizziness) Referrals / Follow Up: Terrance Akers [Other] - 06/18/24 9:45 am (Xrays at [address] Akers at 1000) Jose Carlos Pompa MD [Primary Care Provider] - (pt will make appt ) Disposition Disposition (needs filled in before D/C Order can be placed): Home Health Service
[2024-05-22] MEDS: Atorvastatin Calcium 20 MG Tablet PO (21:18)
[2024-05-23 00:37] VITALS: RESP 16; O2SAT 92
[2024-05-23] MEDS: Enoxaparin 40 MG/0.4 ML Syringe SC (05:40)
[2024-05-23] MEDS: Gabapentin 100 MG Capsule PO ×3 (05:40→21:29)
[2024-05-23] MEDS: Levothyroxine 100 MCG Tablet PO (05:41)
[2024-05-23] MEDS: Acetaminophen 500 MG Tablet 1000 MG PO ×3 (05:41→21:30)
[2024-05-23 08:00] VITALS: O2SAT 95; O2SAT 96
[2024-05-23 09:20] VITALS: BP 117/64; PULSE 81; RESP 18; O2SAT 93
[2024-05-23] MEDS: Pantoprazole Sodium 20 MG Tablet PO (09:23)
[2024-05-23] MEDS: Senna/Docusate Sodium 1 Tablet 2 TABLET PO ×2 (09:23→21:30)
[2024-05-23] MEDS: Lidocaine 5% Patch 1 PATCH TOPICAL (09:24)
[2024-05-23] MEDS: Calcium Carb/Vitamin D 1 TABLET Tablet PO (09:24)
[2024-05-23] MEDS: Multivitamins,Ther W-Minerals Tablet 1 TABLET PO (09:24)
[2024-05-23] MEDS: Fluoxetine HCl 40 MG CAPSULE PO (09:24)
[2024-05-23] MEDS: Cholecalciferol (VIT D3) 25 MCG TABLET (1,000 UNITS) 50 MCG PO (09:24)
--- NOTE | 2024-05-23 12:13 | CASEMGMT ---
BIMS () and PHQ2 () interviews completed on this date for MDS assessment. TANVIR Gonsalez
[2024-05-23 15:13] VITALS: TEMP 36.3
[2024-05-23] MEDS: Atorvastatin Calcium 20 MG Tablet PO (21:30)
[2024-05-23 21:35] VITALS: PULSE 74; RESP 14; O2SAT 96
[2024-05-24] MEDS: Levothyroxine 100 MCG Tablet PO (04:58)
[2024-05-24] MEDS: Acetaminophen 500 MG Tablet 1000 MG PO ×3 (04:58→21:56)
[2024-05-24] MEDS: Enoxaparin 40 MG/0.4 ML Syringe SC (04:58)
[2024-05-24 06:05] LABS: Absolute Lymphocyte Count 2.11 X10^3/uL (0.83-4.51); Absolute Neutrophil Count 4.5 X10^3/uL (2.0-7.7); Basophil# 0.05 X10^3/uL; Basophil% 0.6 % (0-1); Eosinophil# 0.35 X10^3/uL; Eosinophils% 4.5 % (0-5); Hematocrit 34.2 % (37-47); Hemoglobin 11.4 g/dL (12.0-15.0); Lymphocyte # 2.11 X10^3/ul (0.83-4.51); Lymphocyte % 27.4 % (19-41); Mean Corp Hgb Conc 33.3 g/dL (32-36); Mean Corpuscular Hgb 31.2 pg (27.0-32.0); Mean Corpuscular Volume 93.7 fL (81-99); Mean Platelet Vol. 9.3 fl (6.2-12.0); Monocyte# 0.63 X10^3/uL; Monocyte% 8.2 % (0-10); NRBC Flagged by Analyzer 0 % (0-5); Neutrophil # 4.54 X10^3/uL (2.7-7.7); Neutrophil % 58.9 % (47-70); Platelet Count 477 K/mm3 (150-450); RBC Distribution Width CV 13.9 % (11.6-14.6); RBC Distribution Width SD 47.6 fl (35.1-43.9); Red Blood Count 3.65 M/mm3 (4.2-5.4); White Blood Count 7.7 K/mm3 (4.4-11.0)
[2024-05-24 06:43] LABS: Anion Gap 13 (5-15); BUN 19 mg/dL (4-19); BUN/Creat Ratio 31.4 RATIO (10-20); Calcium 8.5 mg/dL (7.6-11.0); Carbon Dioxide 20.9 mmol/L (22.0-29.0); Chloride 106 mmol/L (96-108); Creatinine, Serum 0.61 mg/dL (0.70-1.20); EST Glomerular Filtration Rate 93 (>60); Estimated Creatinine Clearance 48.12 ml/min (50-250); Glucose 86 mg/dL (70-99); Potassium 4.1 mmol/L (3.3-5.1); Sodium Level 139 mmol/L (133-145)
[2024-05-24] MEDS: Calcium Carb/Vitamin D 1 TABLET Tablet PO (07:59)
[2024-05-24] MEDS: Multivitamins,Ther W-Minerals Tablet 1 TABLET PO (07:59)
[2024-05-24] MEDS: Lidocaine 5% Patch 1 PATCH TOPICAL (07:59)
[2024-05-24] MEDS: Pantoprazole Sodium 20 MG Tablet PO (08:00)
[2024-05-24] MEDS: Senna/Docusate Sodium 1 Tablet 2 TABLET PO (08:00)
[2024-05-24] MEDS: Fluoxetine HCl 40 MG CAPSULE PO (08:00)
[2024-05-24] MEDS: Cholecalciferol (VIT D3) 25 MCG TABLET (1,000 UNITS) 50 MCG PO (08:01)
--- NOTE | 2024-05-24 11:03 | MDS.RN ---
Pain assessment for MDS complete.
[2024-05-24 13:45] VITALS: BP 115/63; PULSE 76; RESP 14; TEMP 36.3; O2SAT 95
[2024-05-24] MEDS: Atorvastatin Calcium 20 MG Tablet PO (21:56)
[2024-05-24] MEDS: Methocarbamol 500 MG Tablet PO (22:16)
[2024-05-25] MEDS: Enoxaparin 40 MG/0.4 ML Syringe SC (05:20)
[2024-05-25] MEDS: Acetaminophen 500 MG Tablet 1000 MG PO (05:20)
[2024-05-25] MEDS: Levothyroxine 100 MCG Tablet PO (05:20)
[2024-05-25 05:27] VITALS: PULSE 77; RESP 16; O2SAT 95
[2024-05-25] MEDS: Lidocaine 5% Patch 1 PATCH TOPICAL (07:50)
[2024-05-25] MEDS: Multivitamins,Ther W-Minerals Tablet 1 TABLET PO (07:50)
[2024-05-25] MEDS: Calcium Carb/Vitamin D 1 TABLET Tablet PO (07:50)
[2024-05-25] MEDS: Fluoxetine HCl 40 MG CAPSULE PO (07:51)
[2024-05-25] MEDS: Cholecalciferol (VIT D3) 25 MCG TABLET (1,000 UNITS) 50 MCG PO (07:51)
[2024-05-25] MEDS: Pantoprazole Sodium 20 MG Tablet PO (07:51)
[2024-05-25 11:00] VITALS: BP 158/82; PULSE 75; RESP 16; TEMP 36.6; O2SAT 95
== END 2024-05-25 11:35 | disposition home health service (06) | DRG 559 ==
PROVIDERS: Admitting Provider Family Medicine Geriatric Medicine; PCP Family Medicine; Visit Provider Family Medicine Geriatric Medicine
DX: M80.0AXD Age-related osteoporosis with current pathological fracture, other site, subsequent encounter for fracture with routine healing (principal); J18.9 Pneumonia, unspecified organism; J96.10 Chronic respiratory failure, unspecified whether with hypoxia or hypercapnia; E03.9 Hypothyroidism, unspecified; I48.0 Paroxysmal atrial fibrillation; G62.9 Polyneuropathy, unspecified; F32.A Depression, unspecified; I10 Essential (primary) hypertension; E78.5 Hyperlipidemia, unspecified; K21.9 Gastro-esophageal reflux disease without esophagitis; W18.30XD Fall on same level, unspecified, subsequent encounter; M79.7 Fibromyalgia; H81.10 Benign paroxysmal vertigo, unspecified ear; M80.08XD Age-related osteoporosis with current pathological fracture, vertebra(e), subsequent encounter for fracture with routine healing; Z79.899 Other long term (current) drug therapy; Z79.890 Hormone replacement therapy; Z23 Encounter for immunization; Y95 Nosocomial condition
CPT/HCPCS: 36415; 71046; 74018; 80048; 80061; 85025; 90662; 92508; 92523; 92610; 97110; 97116; 97129; 97130; 97162; 97166; 97530; 97535; 97802; G0008

== ENCOUNTER 2024-08-21 15:44 | Emergency (ER) | payer MEDICARE, SELFPAY ==
[2024-08-21 15:44] VITALS: BP 159/88; PULSE 86; RESP 18; TEMP 36.3; O2SAT 98
--- NOTE | 2024-08-21 16:14 | EX.ED.DYSGE1 ---
HPI History of Present Illness Chief Complaint: Nosebleed Detail of Chief Complaint: Spontaneous nosebleed left naris Informant: patient Onset/Context/Timing Onset: Hours (45 minutes prior to arrival) Context: Sudden Onset Timing: Continuous Quality: Bleeding from left naris Location: Left Current Severity: Mild Maximum Severity: Mild Worsened by: Nothing Relieved by: Nothing Associated Symptoms Associated Symptoms: None Narrative Narrative: Patient is a 78-year-old woman. She states she was sitting when she noted blood from the left nares. There is no trauma. She does not have history of hypertension. She is not on antithrombotic or anticoagulant to her knowledge. She states she took 2 acetaminophen prior to the nosebleed. Patient denies headache. Patient [place] visual, ocular auditory symptoms. Prior similar symptoms: Yes Recent Illness/Hospitalization: No PFSH PFS Medical History Hypothyroid Non-smoker Sleep apnea Hypertension Migraines Chronic anemia Obesity Anxiety and depression GERD (gastroesophageal reflux disease) HLD (hyperlipidemia) PAF (paroxysmal atrial fibrillation) Fibromyalgia Osteoporosis Paroxysmal atrial fibrillation T12 compression fracture Closed right hip fracture Syncope Home Medications ?Medication ?Instructions ?Recorded ?Last Taken ?Type alendronate 70 mg tablet 70 mg PO UD osteoporosis 09/07/22 08/16/24 History atorvastatin 20 mg tablet 20 mg PO QHS HLD 09/07/22 09/09/22 History fluoxetine 40 mg capsule 40 mg PO DAILY depression 09/07/22 09/10/22 History omeprazole 20 mg capsule,delayed 20 mg PO DAILY GERD 09/07/22 05/09/24 History release calcium carbonate 500 mg (2.5 x 200 mg calcium (500 09/10/22 08/21/24 Rx mg)) PO TIDCM supplement #30 tabs levothyroxine 100 mcg tablet 100 mcg PO DAILY THYROID 05/05/24 08/21/24 History cholecalciferol (vitamin D3) 25 50 mcg (2 x 25 mcg (1,000 unit)) 05/22/24 Unknown Rx mcg (1,000 unit) tablet PO DAILY #0 tabs multivitamin-iron 9 mg-folic acid 1 tab PO DAILYCM #0 tabs 05/22/24 Unknown Rx 400 mcg-calcium and minerals tablet (Therapeutic-M) acetaminophen 500 mg tablet 1,000 mg PO Q8 PRN pain 08/21/24 08/21/24 History Allergy/AdvReac Type Severity Reaction Status Date / Time codeine Allergy Unknown Verified 08/21/24 15:45 codeine phosphate (From AdvReac Unknown Verified 08/21/24 15:45 Tylenol-Codeine #3) nabumetone (From Relafen) AdvReac Unknown Verified 08/21/24 15:45 naproxen AdvReac Unknown Verified 08/21/24 15:45 Family History Mother Cancer Father Cancer Surgical History S/P ORIF (open reduction internal fixation) fracture History of section H/O ovarian cystectomy History of total right hip replacement S/P kyphoplasty S/P ORIF (open reduction internal fixation) fracture Social History household members: spouse Smoking Status: Never smoker alcohol intake: never substance use type: does not use ROS ROS ED Constitutional Constitutional ED: Denies chills or fever(s) Eyes Eyes: Denies blurry vision or change in vision ENT ENT ED: Reports other Details: Per HPI narrative ; Denies ear pain, rhinorrhea or sore throat Cardiovascular Cardiovascular: Reports chest pain and palpitations Respiratory/Chest Respiratory/Chest: Reports dyspnea and dyspnea on exertion Hematologic/Lymphatic Hematologic/Lymphatic: Reports systems reviewed and no addt'l complaints, except as documented; Denies easy bleeding or easy bruising EXAM Physical Exam Const Vital Signs: 08/21/24 15:44 Temperature 97.4 F L Temperature Source Temporal Pulse Rate 86 Respiratory Rate 18 Blood Pressure 159/88 H Blood Pressure Mean 111 Pulse Ox 98 Oxygen Delivery Method Room Air Positive well nourished and well developed General Appearance ED: well developed and NAD; Negative for pallor HEENT Reports moist mucous membranes HEENT Narrative: Head is atraumatic and normocephalic. Ears normal. In the middle of Calci-Mix plexus on the left there is a small arterial bleed noted. Plan is to anesthetize her nose using Hilaria solution and then cauterized the area around the bleeding site. Eyes PERRL and EOMs intact bilaterally General Eye ED: Negative for pale conjunctiva or scleral icterus Resp normal respiratory effort Cardio regular rate and regular rhythm Neuro oriented x3 and CN's II-XII intact bilaterally Sensorium / Orientation: alert Psych mental status grossly normal Skin no rashes or lesions noted, no wounds and skin turgor normal General Skin Exam: Negative for jaundice or pallor MDM MDM MDM Narrative Medical decision making narrative: Patient with spontaneous epistaxis due to arterial bleed on the left. Plan is to anesthetize area and then cauterized using silver nitrate. Patient's blood pressure is elevated. Review of her meds indicates she is on no antihypertensive medication. Procedures Other Procedures Procedure(s): Left naris was anesthetized using Hilaria solution. After 20 minutes passed the saturated cotton with manage solution was removed. There was no active bleeding noted. The area was cauterized i.e. around the bleeding site. There is no further bleeding. In light of this patient was discharged to home with appropriate home-going instructions. Discharge Plan Triage Chief Complaint: Nosebleed ED Provider: Graham Lozano Dx/Rx/DC Orders Clinical Impression: Acute anterior epistaxis, HLD (hyperlipidemia), GERD (gastroesophageal reflux disease), Elevated blood-pressure reading without diagnosis of hypertension, History of hypothyroidism Instructions: ED Epistaxis (Adult), ED Hypertension, To Be Confirmed Prescriptions: No Action fluoxetine 40 mg capsule 40 mg PO DAILY atorvastatin 20 mg tablet 20 mg PO QHS Patient Comments: PT THINKS SHE IS TAKING SOMETHING FOR CHOLESTEROL AND THAT IT MAY BE ATORVASTATIN alendronate 70 mg tablet 70 mg PO UD Rx Instructions: weekly. omeprazole 20 mg capsule,delayed release(DR/EC) 20 mg PO DAILY calcium carbonate 200 mg calcium (500 mg) Tablet,Chewable 500 mg PO TIDCM Qty: 30 0RF cholecalciferol (vitamin D3) 25 mcg (1,000 unit) Tablet 50 mcg PO DAILY Qty: 0 0RF Therapeutic-M 9 mg iron-400 mcg Tablet 1 tab PO DAILYCM Qty: 0 0RF levothyroxine 100 mcg tablet 100 mcg PO DAILY Patient Comments: [NO ORIGINAL SIG] acetaminophen 500 mg Tablet 1,000 mg PO Q8 PRN (Reason: pain) Primary Care Provider: Jose Carlos Pompa Referrals: Jose Carlos Pompa MD [Primary Care Provider] - 1-2 Weeks Activity Restrictions/Additional Instructions: Need to make an appointment to see your doctor, Dr. Jose Carlos Pompa, for blood pressure recheck in 1 to 2 weeks. Your blood pressure was elevated in the emergency department at 159/88. Since you do not have a history of hypertension no further action/workup is needed. Is needed rechecked. Print Language: [place] Island[place] Disposition Disposition: Home, Self Care
[2024-08-21] MEDS: Mixture 30 ML Bottle TOPICAL (16:15)
[2024-08-21] MEDS: Silver Nitrate (BKC) 3 EACH TOPICAL (16:25)
[2024-08-21 17:54] VITALS: BP 168/84; PULSE 74; RESP 16; TEMP 36.3; O2SAT 98
== END 2024-08-21 17:54 | disposition home or self-care (01) ==
PROVIDERS: Emergency Provider Emergency Medicine; PCP Family Medicine; Visit Provider Emergency Medicine
DX: R04.0 Epistaxis (principal); E78.5 Hyperlipidemia, unspecified; R03.0 Elevated blood-pressure reading, without diagnosis of hypertension; K21.9 Gastro-esophageal reflux disease without esophagitis; E03.9 Hypothyroidism, unspecified
CPT/HCPCS: 30901; 99282

== ENCOUNTER 2024-09-13 14:54 | Emergency (ER) | payer MEDICARE, SELFPAY ==
[2024-09-13 14:56] VITALS: BP 147/89; PULSE 94; RESP 18; TEMP 36.3; O2SAT 98
[2024-09-13 16:48] VITALS: BP 141/86; PULSE 89; RESP 16; TEMP 36.6; O2SAT 99
== END 2024-09-13 16:50 | disposition home or self-care (01) ==
PROVIDERS: Emergency Provider Emergency Medicine; PCP Family Medicine; Visit Provider Emergency Medicine
DX: S80.01XA Contusion of right knee, initial encounter (principal); M25.461 Effusion, right knee; I10 Essential (primary) hypertension; E78.5 Hyperlipidemia, unspecified; R29.6 Repeated falls; Z91.81 History of falling; K21.9 Gastro-esophageal reflux disease without esophagitis; Z96.641 Presence of right artificial hip joint; S30.0XXA Contusion of lower back and pelvis, initial encounter; W18.30XA Fall on same level, unspecified, initial encounter
CPT/HCPCS: 73502; 73564; 99282

== ENCOUNTER 2024-09-23 10:23 | Emergency (ER) | payer MEDICARE, SELFPAY ==
[2024-09-23 10:24] VITALS: BP 153/91; PULSE 88; RESP 14; TEMP 36.8; O2SAT 96
--- NOTE | 2024-09-23 10:30 | EX.ED.DYSGE1 ---
HPI History of Present Illness Chief Complaint: Weakness [facility] Medical History Hypothyroid Non-smoker Sleep apnea Hypertension Migraines Chronic anemia Obesity Anxiety and depression GERD (gastroesophageal reflux disease) HLD (hyperlipidemia) PAF (paroxysmal atrial fibrillation) Fibromyalgia Osteoporosis Paroxysmal atrial fibrillation T12 compression fracture Closed right hip fracture Syncope Home Medications ?Medication ?Instructions ?Recorded ?Last Taken ?Type alendronate 70 mg tablet 70 mg PO UD osteoporosis 09/07/22 08/16/24 History atorvastatin 20 mg tablet 20 mg PO QHS HLD 09/07/22 09/09/22 History fluoxetine 40 mg capsule 40 mg PO DAILY depression 09/07/22 09/10/22 History omeprazole 20 mg capsule,delayed 20 mg PO DAILY GERD 09/07/22 05/09/24 History release calcium carbonate 500 mg (2.5 x 200 mg calcium (500 09/10/22 08/21/24 Rx mg)) PO TIDCM supplement #30 tabs levothyroxine 100 mcg tablet 100 mcg PO DAILY THYROID 05/05/24 08/21/24 History cholecalciferol (vitamin D3) 25 50 mcg (2 x 25 mcg (1,000 unit)) 05/22/24 Unknown Rx mcg (1,000 unit) tablet PO DAILY #0 tabs multivitamin-iron 9 mg-folic acid 1 tab PO DAILYCM #0 tabs 05/22/24 Unknown Rx 400 mcg-calcium and minerals tablet (Therapeutic-M) acetaminophen 500 mg tablet 1,000 mg PO Q8 PRN pain 08/21/24 08/21/24 History ondansetron 4 mg disintegrating 4 mg PO Q8H PRN PRN Nausea #10 tabs 09/23/24 Unknown Rx tablet Allergy/AdvReac Type Severity Reaction Status Date / Time codeine Allergy Unknown Verified 09/23/24 10:25 codeine phosphate (From AdvReac Unknown Verified 09/23/24 10:25 Tylenol-Codeine #3) nabumetone (From Relafen) AdvReac Unknown Verified 09/23/24 10:25 naproxen AdvReac Unknown Verified 09/23/24 10:25 Family History Mother Cancer Father Cancer Surgical History S/P ORIF (open reduction internal fixation) fracture History of section H/O ovarian cystectomy History of total right hip replacement S/P kyphoplasty S/P ORIF (open reduction internal fixation) fracture Social History household members: spouse Smoking Status: Never smoker alcohol intake: never substance use type: does not use EXAM Physical Exam Const Vital Signs: 09/23/24 10:24 09/23/24 10:25 09/23/24 12:23 Temperature 98.3 F Temperature Source Oral Pulse Rate 88 78 Respiratory Rate 14 15 Respiratory Effort Normal Respiratory Pattern Normal Blood Pressure 153/91 H 166/94 H Blood Pressure Mean 111 118 Pulse Ox 96 98 Oxygen Delivery Method Room Air Room Air 09/23/24 14:00 Temperature Temperature Source Pulse Rate 74 Respiratory Rate 16 Respiratory Effort Respiratory Pattern Blood Pressure 181/91 H Blood Pressure Mean 121 Pulse Ox 93 Oxygen Delivery Method Room Air MDM MDM MDM Narrative Medical decision making narrative: HISTORY OF PRESENT ILLNESS: Chief complaint: Fatigue 78-year-old female presents with feeling rundown. She notes this has been going on for 3 days. She states she had a fall 10 days ago and injured her right knee and right hip. States she is able to ambulate although difficulty secondary diffuse weakness. notes decreased p.o. intake and she has been feeling more fatigued the last 3 days. Denies any head trauma or loss of conscious during initial fall they both deny any new headaches, chest pain, shortness of breath, palpitations, cough, fever, chills. Denies any abdominal pain, vomiting, diarrhea, nausea. Denies difficulty urination, urgency, frequency. Denies paleness of skin. Denies any new falls. REVIEW OF SYSTEMS: Pertinent positives: Fatigue Pertinent negatives: As per HPI PHYSICAL EXAM: Nursing triage notes reviewed, Vital signs reviewed Constitutional: please see mdm HENT: MMM Eyes: Pupils equal round and reactive to light, Extraocular muscles intact Neck: No stridor, no JVD, full neck ROM Lungs: Clear to auscultation, No wheezing or rales. No increased work of breathing, no conversational dyspnea, no accessory muscle use, no nasal flaring. No respiratory distress noted Heart: Regular rate and rhythm, No murmurs, No rubs and No gallops, 2+ distal pulses (radial, femoral, posterior tibial) in all extremities Abdomen: Soft, there is no tenderness, rigidity, rebound or guarding, no obvious peritoneal signs, no palpable pulsatile abdominal masses, no auscultated abdominal bruit : No CVAT Extremities: No edema Neuro: No new focal neurological deficits, cranial nerves II through XII intact, 5/5 strength in all present extremities. Intact sensation to light touch in all present extremities, 2+ reflexes bilateral patella tendons. Skin: No rash or lesions noted MEDICAL DECISION MAKING: Chief Complaint: please see HPI External records reviewed: Reviewed prior cardiovascular testing: Reviewed echocardiogram from 2017 which showed ejection fraction of 65%. No wall motion abnormalities were noted during the study. Factors affecting care: Atrial fibrillation no anticoagulation osteoporosis, hyperlipidemia, GERD hypothyroidism, Social determinants of health: none History obtained from others: none Consults: none [facility] Narrative: The patient was initially hemodynamically stable, afebrile and nontoxic-appearing. Exam without focal neurologic deficits. Noted healing ecchymosis to the right knee. No abdominal TTP. Lungs were clear no murmurs or auscultated rhythm abnormalities. I considered the following differential diagnosis: Dehydration, UTI, hypothyroidism, arrhythmia, ACS, anemia, electrolyte disturbance, pneumonia, viral illness amongst others I obtained a broad lab and imaging to further determine if the patient was suffering from a life-threatening etiology. Initially treated the patient with a 500 cc bolus of normal saline given report of decreased p.o. intake ALL IMAGES (IF OBTAINED) HAVE BEEN PERSONALLY REVIEWED AND INTERPRETED BY MYSELF. EKG with normal sinus rhythm, left axis deviation, prolonged QTc interval with a 485, no STEMI, no arrhythmia. I have personally reviewed the patient's chest x-ray. Chest x-ray is unremarkable for pulmonary edema, pneumothorax, pneumonia or focal cardiopulmonary abnormality. CBC without leukocytosis, severe anemia, no thrombocytopenia. High-sensitivity troponin is negative, no evidence of myocardial ischemia Lipase is wnl indicating no pancreatic inflammation. TSH elevated consistent hypothyroidism, T4 normal, T3 slightly low again consistent with hypothyroidism will encourage continuation of home levothyroxine COVID flu RSV negative BMP without significant electrolyte abnormalities, there is a anion gap of suggest endorgan hypoperfusion likely suggesting dehydration in the clinical context of decreased p.o. intake. LFTs with slight elevations in AST, ALT and alk phos has no right upper quadrant abdominal pain, no GI specific symptoms such as nausea or vomiting. She is not jaundiced. Will encourage outpatient follow-up Urinalysis without UTI The patient was able to ambulate here in the ED without significant difficulty with her home walker. Her labs images suggest no acute life or limb threatening etiology. Likely dehydration from decreased p.o. intake. Will prescribe Zofran encouraged increase oral fluid intake The patient and/or family, caregivers express understanding. The patient and/or family, caregivers agrees with the plan. Shared decision making: I will have a discussion with the patient and or visitors regarding risk/benefits of further testing or admission. They will be made aware of of the risk/benefits inherent in this decision they will be given the opportunity to voice understanding. Total critical care time today provided was at least 0 minutes. This excludes separately billable procedures. Critical care time (if documented) is secondary to the patient having high probability of clinically significant/life threatening deterioration in the patient's condition which required my urgent intervention. Impression: 1. Fatigue 2. Dehydration Dispo: Discharge This note was generated with [employer] dictation software. It may contain incorrect words, spelling, and punctuation that were not noted in review of the chart prior to signing. Lab Data Labs: Laboratory Results - last 24 hr 09/23/24 09/23/24 10:44 12:54 WBC 9.4 RBC 4.18 L Hgb 12.8 Hct 38.3 MCV 91.6 MCH 30.6 MCHC 33.4 RDW Std Deviation 41.5 RDW Coeff of Serafin 12.4 Plt Count 442 MPV 9.4 Sodium 138 Potassium 3.7 Chloride 99 Carbon Dioxide 21.8 Anion Gap 17 H BUN 14 Creatinine 0.66 L Est GFR (MDRD) Non-Af 91 BUN/Creatinine Ratio 21.4 H Glucose 104 H Calcium 9.8 Total Bilirubin 0.75 AST 45 H ALT 63 H Alkaline Phosphatase 300 H Troponin T High Sens 10 Total Protein 7.9 Albumin 3.9 Globulin 4.0 Albumin/Globulin Ratio 1.0 Lipase 23 TSH 22.800 H Free T4 1.20 Free T3 pg/dL 1.5 L Urine Color Yellow Urine Clarity Clear Urine pH 6.0 Ur Specific [place] 1.015 Urine Protein 30 H Urine Glucose (UA) Normal Urine Ketones 15 H Urine Occult Blood 25 H Urine Nitrite Negative Urine Bilirubin Negative Urine Urobilinogen Normal Ur Leukocyte Esterase 25 H Urine RBC 0-5 SEEN Urine WBC 0-5 SEEN Ur Squamous Epith Cells 0-5 SEEN Calcium Oxalate Crystal 1+ Urine Bacteria 0 SEEN Urine Mucus 2+ Radiography Diagnostic Testing: Clinical Impression(s) from Imaging Studies Chest X-Ray 09/23/24 10:55 IMPRESSION: No Acute Findings. Reading Location: [facility] Discharge Plan Triage Chief Complaint: Weakness ED Provider: Arcenio Trammell Dx/Rx/DC Orders Clinical Impression: Acute dehydration, Hypothyroid Instructions: ED Dehydration (Adult) Prescriptions: New ondansetron 4 mg tablet,disintegrating 4 mg PO Q8H PRN PRN (Reason: Nausea) Qty: 10 0RF No Action fluoxetine 40 mg capsule 40 mg PO DAILY atorvastatin 20 mg tablet 20 mg PO QHS Patient Comments: PT THINKS SHE IS TAKING SOMETHING FOR CHOLESTEROL AND THAT IT MAY BE ATORVASTATIN alendronate 70 mg tablet 70 mg PO UD Rx Instructions: weekly. omeprazole 20 mg capsule,delayed release(DR/EC) 20 mg PO DAILY calcium carbonate 200 mg calcium (500 mg) Tablet,Chewable 500 mg PO TIDCM Qty: 30 0RF cholecalciferol (vitamin D3) 25 mcg (1,000 unit) Tablet 50 mcg PO DAILY Qty: 0 0RF Therapeutic-M 9 mg iron-400 mcg Tablet 1 tab PO DAILYCM Qty: 0 0RF levothyroxine 100 mcg tablet 100 mcg PO DAILY Patient Comments: [NO ORIGINAL SIG] acetaminophen 500 mg Tablet 1,000 mg PO Q8 PRN (Reason: pain) Primary Care Provider: Jose Carlos Pompa Referrals: Jose Carlos Pompa MD [Primary Care Provider] - Activity Restrictions/Additional Instructions: Thank you for trusting us with your care today! Your presentation is likely secondary to dehydration and hypothyroidism. Please drink plenty of electrolyte containing beverages such as Body Armor, Pedialyte or Gatorade. Please follow with your primary care physician for further treatment of hypothyroidism. Please continue taking your already prescribed levothyroxine. This likely need to be adjusted Please take Tylenol (2 pills, 650 mg), ibuprofen (2 pills, 400 mg) every 6 hours as needed for pain and fever control. Please return to the emergency department if your symptoms change or worsen. Please follow with your primary care physician for further outpatient evaluation and management. Print Language: Kinyarwanda Disposition Disposition: Home, Self Care
--- NOTE | 2024-09-23 10:44 | EKG12_ITS ---
Test Reason : WEAKNESS Blood Pressure : */* mmHG Vent. Rate : 81 BPM Atrial Rate : 81 BPM P-R Int : 136 ms QRS Dur : 72 ms QT Int : 418 ms P-R-T Axes : 44 1 59 degrees QTcB Int : 485 ms Normal sinus rhythm QTcB >= 480 msec Abnormal ECG Confirmed by Renaldo Ruiz ([id number]), deputy editor in chief ANA MARIA SOTO ([id number]) on 09/24/2024 1:10:24 PM Referred By: Confirmed By: Renaldo Ruiz
--- NOTE | 2024-09-23 10:55 | RAD_ITS ---
PROCEDURE: CHEST 1 VIEW (PORTABLE) 09/23/2024 REASON FOR EXAM: FATIGUE TECHNIQUE: Frontal view of the chest. COMPARISON: Chest radiograph 05/11/2024. FINDINGS: Hardware: Prior cement augmentation of the lower thoracic spine. Heart: The heart size is normal. Lungs: No focal consolidation, pleural effusion or pneumothorax. Bones: Degenerative changes are identified within the thoracic spine. Chronic bilateral rib fracture deformities. RAD/Chest 1 View (Portable) IMPRESSION: No Acute Findings. Reading Location: [id number]
[2024-09-23 11:18] LABS: Hematocrit 38.3 % (37-47); Hemoglobin 12.8 g/dL (12.0-15.0); Mean Corp Hgb Conc 33.4 g/dL (32-36); Mean Corpuscular Volume 91.6 fL (81-99); Mean Platelet Vol. 9.4 fl (6.2-12.0); Platelet Count 442 K/mm3 (150-450); RBC Distribution Width CV 12.4 % (11.6-14.6); RBC Distribution Width SD 41.5 fl (35.1-43.9); Red Blood Count 4.18 M/mm3 (4.2-5.4); White Blood Count 9.4 K/mm3 (4.4-11.0)
[2024-09-23 11:24] LABS: Troponin T High Sensitivity 10 ng/L (<=14)
--- OUTSIDE RECORDS SUMMARY | 2024-09-23 11:36 | XMS RPT_ITS | CCD ---
Author Organization [facility] CliniSyva Care Team Providers Care Bulb Sorter Name Role Phone Vera Pompa MD Primary Care Provider Dr. Vera Pompa Primary Care Provider Dr. Giancarlo Wooten Emergency Provider [phone] Dr. Yessenia Andres Attending Provider Dr. Yessenia Andres Admit Provider Dr. Yessenia Andres Other Provider Dr. Saúl Manriquez Other Provider [phone] Dr. Luis Ashley Attending Provider Dr. Luis Ashley Other Provider Vera Pompa MD Primary Care Provider Dr. Odilon Rodríguez Chi Admit Provider Dr. Odilon Rodríguez Chi Other Provider Dr. Celeste Lloyd Attending Provider Vera Pompa MD Primary Care Provider Tannhof CORPORATE BOND TRADER.AUTOMATION ANALYST, Apryl Unavailable Kalin CORPORATE BOND TRADER.AUTOMATION ANALYST, Luis Enriuqe Unavailable Dr. Vera Pompa MD Primary Care Provider Edmundo Judd MD Attending Provider Edmundo Judd MD Emergency Provider Dr. Odilon Rodríguez MD, Chi Admit Provider Dr. Odilon Rodríguez MD, Chi Attending Provider CYNTHIA TOMAS Referring Unavailable VERA POMPA Primary Care Unavailable NUZHAT NAIK Attending Unavailable CYNTHIA TOAMS Referring Unavailable VERA POMPA Primary Care Unavailable VERA POMPA Primary Care Unavailable HORACE NOGUERA RHONDA Admitting UnavailTERRANCE Clark Consulting Unavailable SILVINO JONES Attending Unavailable Sherif CORPORATE BOND TRADER.AUTOMATION ANALYST, Apryl Unavailable Unavail able Blake SCHMIDT, Dr. Stevenson Emergency Provider Dr. Vera Pompa MD Primary Care Provider Dr. Graham Lozano MD Attending Provider [phone] Owen SCHMIDT, Dr. Hodges Emergency Provider Venancio Shrestha Attending Unavailable Gonzalo, James Consulting Unavailable Gonzalo, James Admitting Unavailable Eldercinthay, Vera Primary Care Unavailable Marcos, Odilon Chi Attending Unavailable Marcos, Odilon Chi Admitting Unavailable Elderzeusck, Vera Primary Care Unavailable Eldercinthya, Vera Primary Care Unavailable Edmundo Judd Attending Unavailable Carroll Weaver Attending Unavailable Eldercinthya, Vera Primary Care Unavailable Graham Lozano Attending Unavailable Eldercinthya, Vera Primary Care Unavailable Venancio Shrestha Attending Unavailable Gonzalo, James Admitting Unavailable Gonzalo, James Consulting Unavailable Aletha, Vera Primary Care Unavailable Venancio Shrestha Consulting Unavailable Gonzalo, James Attending Unavailable VERA POMPA Attending Unavailable VERA POMPA Primary Care Unavailable Allergies Allergy Classification Reported Allergen(s) Allergy Type Date of Onset Reaction(s) Facility Acetaminophen / Codeine (3 sources) Acetaminophen / Codeine Drug Allergy 04-07-19 24 Unknown [facility] Work Phone: Macrolides (antibiotic) (3 sources) Clarithromycin Drug Allergy 03-16-19 Unknown [facility] NSAIDs (6 sources) Naproxen Drug Allergy 03-16-19 06 Rash, Unknown [facility] Work Phone: Opioid Agonists (3 sources) Codeine Drug Allergy 01-06-20 07 [facility] (20 sources) Clarithromycin; Translations: [CLARITHROMYCIN] Drug Allergy 03-16-19 Unknown [facility] (20 sources) Codeine; Translations: [CODEINE] Drug Allergy 01-06-20 07 Unknown [facility] (20 sources) nabumetone; Translations: [NABUMETONE] Drug Allergy 03-16-19 06 Unknown [facility] (20 sources) Naproxen; Translations: [NAPROXEN] Drug Allergy 11-23-19 08 Rash [facility] Work Phone: (20 sources) tylenol#3 [Other] Propensity to adverse reactions 03-16-19 06 Unknown [facility] (9 sources) Codeine; Translations: [codeine phosphate] Drug Allergy 09-08-19 23 Unknown [facility] (20 sources) Acetaminophen / Codeine; Translations: [ACETAMINOPHEN-COD EINE] Drug Allergy 04-07-19 24 Unknown [facility] Work Phone: (1 source) Codeine Drug Allergy 09-14-19 25 [facility] Repository (1 source) nabumetone Drug Allergy 09-14-19 25 [facility] Repository (1 source) Naproxen Drug Allergy 09-14-19 [facility] Repository Medications Current Medications Medication Drug Class(es) Dates Sig (Normalized) Sig (Original) acetaminophen 500 mg oral tablet (20 sources) Start: 05-22-2024 End: 08-21-2024 acetaminophen (TYLENOL) 500 mg tablet 1,000 mg. 05/22/2024 Active Start: 05-09-2024 End: 06-08-2024 take 3 tablets by mouth every eight hours acetaminophen (TYLENOL) 325 mg tablet Take 3 tablets by mouth every 8 hours. 270 tablet 05/09/2024 06/08/2024 Active Start: 03-20-2016 End: 09-07-2022 Acetaminophen (Tylenol) 325 MG tablet Discontinued 650 mg PO EVERY 6 HOURS NEEDED as needed for Mild Pain (scale 0-3)/T>100.7 0 0 March 20, 2016 1:00am September 07, 2022 7:21pm Start: 06-10-2015 End: 09-07-2022 take 2 tablets by mouth every six hours as needed for pain Acetaminophen (Tylenol) 325 MG tablet Discontinued 650 mg PO EVERY 6 HOURS NEEDED as needed for Pain 0 0 June 10, 2015 12:00am March 20, 2016 11:09am alendronic acid 70 mg oral tablet (20 sources) Bisphosphonate Start: 03-20-2016 End: 11-08-2023 take 1 tablet by mouth every week alendronate (FOSAMAX) 70 mg tablet Indications: Osteoporosis, unspecified osteoporosis type, unspecified pathological fracture presence Take 1 tablet by mouth one time a week. 12 tablet 3 11/08/2023 Active Start: 03-17-2016 End: 03-20-2016 take 1 tablet by mouth once daily Alendronate (Fosamax) 70 MG tablet Discontinued 70 mg PO DAILY March 17, 2016 1:00am March 20, 2016 11:21am Comment on above: Take 1 tablet by james th one time a week. atorvastatin 20 mg oral tablet (20 sources) HMG-CoA Reductase Inhibitor Start: 2 End: take 1 tablet by mouth once daily atorvastatin (LIPITOR) 20 mg tablet Indications: Hyperlipidemia, mixed Take 1 tablet by mouth once daily. 90 tablet 3 10/07/2023 Active Start: 12-24-2020 take 1 tablet by james th once daily atorvastatin (LIPITOR) 20 mg tablet Indications: Hyperlipidemia, mixed Take 1 tablet by mouth once daily. 90 tablet 2 12/24/2020 Active Comment on above: Take 1 tablet by james th once daily. TAKE 1 TABLET EVERY DAY calcium carbonate 500 mg chewable tablet (20 sources) Start: 09-10-2022 take 1 tablet by mouth three times daily at mealtime Calcium Carbonate 200 mg calcium (500 mg) Tablet,Chewable Active 500 mg PO 3 TIMES DAILY WITH MEALS September 10, 2022 12:00am supplement Start: 06-05-2015 End: 09-07-2022 take 1 tablet by mouth once daily Calcium Carbonate 600 MG tablet Discontinued 600 mg PO DAILY June 19, 2015 9:57pm September 07, 2022 7:21pm calcium carbonate 1500 mg / cholecalciferol 0.01 mg oral tablet (20 sources) Vitamin D Start: 09-01-2012 take 1 tablet by mouth once daily calcium carbonate 600 mg-cholecalciferol 400 units 600 mg-10 mcg (400 unit) tab Take 1 tablet by mouth once daily. 09/01/2012 Active Comment on above: Take 1 tablet by james th once daily. carbamide peroxide 65 mg/ml otic solution (1 source) Start: 05-30-2023 End: 06-04-2023 carbamide peroxide (DEBROX) 6.5 % otic solution Indications: Bilateral impacted cerumen Use 5 Drops in both ears two times a day for 5 days. 15 mL 0 05/30/2023 06/04/2023 Active Comment on above: Use 5 Drops in both ears two times a day for 5 days. cholecalciferol 0.025 mg oral tablet (20 sources) Vitamin D Start: 05-22-2024 take 1 tablet by mouth once daily Cholecalciferol (Vitamin D3) 25 mcg (1,000 unit) Tablet Active 50 ug PO DAILY 0 May 22, 2024 12:00am Start: 06-19-2015 End: 09-07-2022 take 2 tablets by mouth once daily Cholecalciferol (Vitamin D3) (Vitamin D3) 1,000 UNIT tablet Discontinued 2000 U PO DAILY 30 June 19, 2015 12:00am September 07, 2022 7:21pm Start: 01-14-2013 End: 06-19-2015 take 1 tablet by mouth once daily Cholecalciferol (Vitamin D3) (Vitamin D3) 2,000 UNIT tablet Discontinued 2000 U PO DAILY January 14, 2013 12:00am June 19, 2015 9:55pm Start: 06-22-2011 take 1 capsule by mo [facility] once daily Cholecalciferol, Vitamin D3, 2,000 unit ORAL Cap Take 1 capsule by mouth once daily. 0 06/22/2011 Active Comment on above: Take 1 capsule by mo [facility] once daily. cyclobenzaprine hydrochloride 5 mg oral tablet (20 sources) Muscle Relaxant Start: 08-24-19 take 1 tablet by mouth three times daily as needed cyclobenzaprine (FLEXERIL) 5 mg tablet Indications: Primary lateral sclerosis (HCC) Take 1 tablet by mouth three times a day as needed. 270 tablet 1 08/23/2024 Active Start: 01-29-2021 End: 10-21-2023 take 1 tablet by mouth three times daily as needed cyclobenzaprine (FLEXERIL) 5 mg tablet Indications: Primary lateral sclerosis (HCC) Take 1 tablet by mouth three times a day as needed. 270 tablet 1 10/21/2023 Active Start: 03-20-2016 End: 09-07-2022 take 5 mg by mouth three times daily as needed for muscle spasms Cyclobenzaprine 10 MG tablet Discontinued 5 mg PO 3 TIMES DAILY NEEDED as needed for Muscle Spasm 0 March 20, 2016 1:00am September 07, 2022 7:21pm Start: 03-20-2016 End: 09-07-2022 take 5 mg by mouth three times daily as needed Cyclobenzaprine Discontinued 5 MG PO 3 TIMES DAILY NEEDED 0 March 20, 2016 1:00am September 07, 2022 7:21pm Comment on above: Take 1 tablet by james three times daily as needed. TAKE 1 TABLET THREE TIMES DAILY NEEDED Take 1 tablet by james th three times a day as needed. FLUoxetine 40 mg oral capsule (20 sources) Serotonin Reuptake Inhibitor Start: 02-03-2022 End: 06-21-2024 take 1 capsule by mouth once daily FLUoxetine (PROZAC) 40 mg capsule Indications: Episode of recurrent major depressive disorder, unspecified depression episode severity Take 1 capsule by mouth once daily. 90 capsule 3 05/31/2024 Active Start: 03-30-2021 take 1 capsule by mo [facility] once daily FLUoxetine HCl (PROZAC) 40 mg capsule Indications: Episode of recurrent major depressive disorder, unspecified depression episode severity (HCC) Take 1 capsule by mouth once daily. 90 capsule 3 03/30/2021 Active Start: 01-14-2013 End: 09-07-2022 take 1 capsule by mouth twice daily Fluoxetine 20 MG capsule Discontinued 20 mg PO TWICE A DAY 60 0 June 19, 2015 9:57pm September 07, 2022 7:21pm Comment on above: Take 1 capsule by mo [facility] once daily. TAKE 1 CAPSULE EVERY DAY levothyroxine sodium 0.1 mg oral tablet (20 sources) l-Thyroxine Start: End: take 1 tablet by mouth once daily levothyroxine (SYNTHROID) 100 mcg tablet Indications: Hypothyroidism, unspecified type Take 1 tablet by mouth once daily. 90 tablet 3 12/05/2023 Active Start: 01-06-2023 take 1 tablet by james once daily levothyroxine (SYNTHROID) 88 mcg tablet Indications: Hypothyroidism, unspecified type Take 1 tablet by mouth once daily. 90 tablet 0 01/06/2023 Active Start: 05-19-2022 End: 05-05-2024 take 1 tablet by mouth once daily Levothyroxine 75 mcg tablet Discontinued 75 ug PO DAILY September 07, 2022 12:00am May 05, 2024 5:40pm thyroid Start: 07-01-2021 levothyroxine (SYNTHROID) 75 mcg tablet Indications: Hypothyroidism, unspecified type TAKE 1 TABLET ONCE DAILY 90 tablet 3 07/01/2021 Active Start: 08-19-2020 take 1 tablet by james th once daily levothyroxine (SYNTHROID) 75 mcg tablet Indications: Hypothyroidism, unspecified type Take 1 tablet by mouth once daily. 90 tablet 3 08/19/2020 Active Start: 04-29-2018 End: 09-07-2022 Levothyroxine 112 MCG tablet Discontinued 88 ug PO DAILY@0600 April 29, 2018 11:22am September 07, 2022 7:21pm Start: 04-29-2018 End: 09-07-2022 take 88 ug by mouth once daily Levothyroxine Discontinued 88 MCG PO DAILY@0600 April 29, 2018 11:22am September 07, 2022 7:21pm Start: 03-20-2016 End: 04-29-2018 take 1 tablet by mouth once daily Levothyroxine 112 MCG tablet Discontinued 112 ug PO DAILY@0600 0 March 20, 2016 1:00am April 29, 2018 11:22am Start: 01-14-2013 End: 03-20-2016 take 1 tablet by mouth once daily Levothyroxine 88 MCG tablet Discontinued 88 ug PO DAILY 30 0 June 19, 2015 9:57pm March 20, 2016 11:11am Comment on above: Take 1 tablet by james once daily. TAKE 1 TABLET ONCE D AILY TAKE 1 TABLET EVERY DAY Rljppmex-Xfmt-Pc-Ca lcium-Mins (Therapeutic-M) 9 mg iron-400 mcg Tablet (3 sources) Start: 05-22-2024 take 9 tablets by mouth once daily at mealtime Bupljexg-Nmbd-Vq- Calcium-Mins (Therapeutic-M) 9 mg iron-400 mcg Tablet Active 1 {tbl} PO DAILY WITH MEALS 0 May 22, 2024 12:00am Start: 05-22-2024 take 9 tablets by mo [facility] once daily at mealtime Qjhfimzk-Sfyu-Uk-Calcium-Mins (Therapeutic-M) 9 mg iron-400 mcg Tablet Active 1 {tbl} PO DAILY WITH MEALS May 22, 2024 12:00am MULTIVITS W-FE,OTHER MIN/LUT (CENTRUM SILVER ULTRA WOMEN'S ORAL) (20 sources) take 1 tablet by james th once daily MULTIVITS W-FE,OTHER MIN/LUT (CENTRUM SILVER ULTRA WOMEN'S ORAL) Take 1 tablet by mouth once daily. Active take 1 tablet by mouth once veronica y MULTIVITS W-FE,OTHER MIN/LUT (CENTRUM SILVER ULTRA WOMEN'S ORAL) Take 1 tablet by mouth once daily. 0 Active Comment on above: Take 1 tablet by james th once daily. omeprazole 20 mg delayed release oral capsule (20 sources) Proton Pump Inhibitor Start: 2 End: 6 take 1 capsule by mouth once daily before breakfast omeprazole (PRILOSEC) 20 mg capsule Indications: Heart burn Take 1 capsule by mouth daily before breakfast. 1/2 hr before meal. 90 capsule 3 08/28/2024 08/28/2025 Active Start: 06-22-2021 End: 12-05-2021 take 1 capsule by mouth once daily before breakfast omeprazole (PRILOSEC) 20 mg capsule Indications: Heart burn Take 1 capsule by mouth daily before breakfast. 1/2 hr before meal. 30 capsule 3 09/11/2021 12/05/2021 Discontinued Comment on above: Take 1 capsule by mo [facility] daily before breakfast. 1/2 hr before meal. oxyCODONE hydrochloride 5 mg oral tablet (20 sources) Opioid Agonist Start: 3 take 1 tablet by mouth once daily oxyCODONE IR (ROXICODONE) 5 mg immediate release tablet Take 1 tablet by mouth as directed. D/C from [facility]; for HIP fracture 09/29/2022 Active Start: 09-10-2022 End: 05-22-2024 take 1 tablet by mouth every six hours as needed for pain Oxycodone 5 mg Tablet Discontinued 5 mg PO EVERY 6 HOURS NEEDED as needed for Pain Score 1-10 28 7 0 September 28, 2022 May 22, 2024 8:05pm Status post open reduction and internal fixation (ORIF) of fracture Other specified postprocedural states Personal history of (healed) traumatic fracture Start: 06-10-2015 End: 06-19-2015 take 1 tablet by mouth every four hours as needed for pain Oxycodone 5 MG tablet Discontinued 5 mg PO EVERY 4 HOURS NEEDED as needed for Moderate Pain (pain scale 4-5) 60 0 June 10, 2015 12:00am June 19, 2015 9:56pm Comment on above: Take 1 tablet by james th as directed. D/C from [facility]; for HIP fracture triamcinolone acetonide 0.90272 mg/mg topical ointment (20 sources) Corticosteroid Start: 11-24-2017 triamcinolone (KENALOG) 0.025 % ointment Indications: Rash Apply 1 application to affected area twice daily. 15 g 1 11/24/2017 Active Comment on above: Apply 1 application to affected area twice daily. Completed/Discontinued Medications Medication Drug Class(es) Dates Sig (Normalized) Sig (Original) aluminum hydroxide 80 mg/ml / magnesium hydroxide 80 mg/ml / simethicone 8 mg/ml oral suspension (8 sources) Start: 03-20-2016 End: 09-07-2022 take 1 mL by mouth every six hours as needed Alum-Mag Hydroxide-Simeth (Mag-Al Plus Extra Strength) 30 ML suspension Discontinued 30 mL PO EVERY 6 HOURS NEEDED as needed for Gastric Burning 0 0 March 20, 2016 1:00am September 07, 2022 7:21pm Start: 03-20-2016 End: 09-07-2022 take 1 mL by mouth every six hours as needed Alum-Mag Hydroxide-Simeth (Mag-Al Plus Extra Strength) 30 ML suspension Discontinued 30 ML PO EVERY 6 HOURS NEEDED 0 March 20, 2016 1:00am September 07, 2022 7:21pm baclofen 10 mg oral tablet (16 sources) gamma-Aminobutyric Acid-ergic Agonist Start: 03-17-2016 End: 03-20-2016 take 1 tablet by mouth three times daily Baclofen 10 MG tablet Discontinued 10 mg PO THREE TIMES A DAY March 17, 2016 1:00am March 20, 2016 11:10am Start: 01-14-2013 End: 06-10-2015 take 1 tablet by mouth three times daily Baclofen 10 MG tablet Discontinued 10 mg PO THREE TIMES A DAY January 14, 2013 12:00am June 10, 2015 10:34am ciprofloxacin 500 mg oral tablet (3 sources) Quinolone Antimicrobial Start: 11-05-2023 End: 05-05-2024 take 1 tablet by mouth twice daily Ciprofloxacin Hcl (Cipro) 500 mg tablet Discontinued 500 mg PO TWICE A DAY 14 0 November 05, 2023 12:00am May 05, 2024 5:39pm docusate sodium 100 mg oral capsule (8 sources) Start: 03-20-2016 End: 09-07-2022 take 2 capsules by mouth twice daily as needed for constipation Docusate Sodium (Dok) 100 MG capsule Discontinued 200 mg PO TWICE DAILY NEEDED as needed for Constipation 0 0 March 20, 2016 1:00am September 07, 2022 7:21pm docusate sodium 50 mg / sennosides, longterm 8.6 mg oral tablet (20 sources) Start: 09-10-2022 End: 06-21-2024 Sennosides-Docusa te Sodium (Stool Softener-Stimulan t Laxat) 8.6-50 mg Tablet Discontinued 2 {tbl} PO TWICE A DAY 120 30 0 September 28, 2022 12:00am May 22, 2024 8:05pm Start: 06-10-2015 End: 06-19-2015 take 1 tablet by mouth twice daily Sennosides-Docusate Sodium (Stool Softener-Stimulant Laxat) 1 TABLET tablet Discontinued 2 {tbl} PO TWICE A DAY 0 June 10, 2015 12:00am June 19, 2015 9:56pm Comment on above: Take 1 tablet by james twice daily. 0.4 ml enoxaparin sodium 100 mg/ml prefilled syringe (7 sources) Low Molecular Weight Heparin Start: 09-11-19 End: 09-29-19 Enoxaparin 40 mg/0.4 mL Syringe Discontinued 40 mg SC 0600 4 0 September 10, 2022 12:00am September 28, 2022 9:24pm blood thinner start 09/12/22 ferrous sulfate 325 mg oral tablet (8 sources) Start: 06-10-19 16 End: 06-19-19 16 take 1 tablet by mouth twice daily at mealtime Ferrous Sulfate 325 MG tablet Discontinued 325 mg PO TWICE DAILY WITH MEALS 0 June 10, 2015 12:00am June 19, 2015 9:56pm gabapentin 100 mg oral capsule (14 sources) Anti-epileptic Agent Start: 05-09-19 End: 09-04-19 take 1 capsule by mouth every eight hours Gabapentin 100 mg Capsule Discontinued 100 mg PO EVERY 8 HOURS 90 30 0 May 22, 2024 12:00am August 21, 2024 4:55pm 1 ml heparin sodium, porcine 5000 unt/ml cartridge (8 sources) Unfractionated Heparin, Anti-coagulant Start: 06-10-19 End: 06-19-19 Heparin (Porcine) 5,000 UNITS/ML syringe Discontinued 5000 U SC TWICE A DAY 0 June 10, 2015 12:00am June 19, 2015 9:55pm USE FOR 3 WEEKS Start: 06-10-2015 End: 06-19-2015 Heparin (Porcine) Discontinu ed 5000 UNITS SC TWICE A DAY June 10, 2015 12:00am June 19, 2015 9:55pm USE FOR 3 WEEKS lidocaine 0.04 mg/mg medicated patch (11 sources) Antiarrhythmic, Amide Local Anesthetic Start: 05-09-2024 End: 09-03-2024 apply 1 dose transdermal route once daily lidocaine (SALONPAS) 4 % patch Apply 1 Patch as directed once daily. 05/09/2024 09/03/2024 Discontinued meclizine hydrochloride 25 mg chewable tablet (20 sources) Antiemetic Start: 05-25-2023 End: 09-03-2024 take 1 tablet by mouth three times daily as needed for dizziness Meclizine 25 mg tablet,chewable Discontinued 25 mg PO 3 TIMES DAILY NEEDED as needed for dizziness May 09, 2024 1:00am May 22, 2024 8:05pm Comment on above: CHEW AND SWALLOW 1 T ABLET THREE TIMES DAILY NEEDED FOR DIZZINESS melatonin 3 mg oral tablet (7 sources) Start: 09-10-2022 End: 09-28-2022 take 1 tablet by mouth at bedtime as needed Melatonin 3 mg Tablet Discontinued 3 mg PO AT BEDTIME NEEDED as needed for Insomnia 0 0 September 10, 2022 12:00am September 28, 2022 9:24pm methocarbamol 500 mg oral tablet (12 sources) Muscle Relaxant Start: 05-22-2024 End: 08-21-2024 take 1 tablet by mouth three times daily as needed for muscle spasms Methocarbamol 500 mg Tablet Discontinued 500 mg PO 3 TIMES DAILY NEEDED as needed for muscle spasm 90 30 0 May 22, 2024 12:00am August 21, 2024 4:55pm Fyqkbtqp-Jtp-Rn-Ly copen-Lutein (Centrum Silver) 1 EACH tablet (16 sources) Start: 06-19-2015 End: 09-07-2022 take 1 tablet by mouth once daily Balmezny-Igl-Ay-L ycopen-Lutein (Centrum Silver) 1 EACH tablet Discontinued 1 NMA PO DAILY 30 0 June 19, 2015 9:57pm September 07, 2022 7:21pm Start: 06-19-2015 End: 09-07-2022 take 1 tablet by mouth once daily Uzlqhbju-Scu-Nl-Lycopen-Lutein (Centrum Silver) 1 EACH tablet Discontinued 1 NMA PO DAILY June 19, 2015 9:57pm September 07, 2022 7:21pm Start: 06-19-2015 End: 09-07-2022 take 1 tablet by mouth once daily Uwvfnnrv-Qxi-Qn-Lycopen-Lutein (Centrum Silver) 1 EACH tablet Discontinued 1 EACH PO DAILY June 19, 2015 9:57pm September 07, 2022 7:21pm Start: 06-05-2015 End: 06-19-2015 take 1 tablet by mouth once daily Alukuaye-Fxl-Cw-Lycopen-Lutein (Centrum Silver) 1 EACH tablet Discontinued 1 NMA PO DAILY June 05, 2015 12:00am June 19, 2015 9:57pm Start: 06-05-2015 End: 06-19-2015 take 1 tablet by mouth once daily Liwdarwb-Cmo-Sd-Lycopen-Lutein (Centrum Silver) 1 EACH tablet Discontinued 1 EACH PO DAILY June 05, 2015 12:00am June 19, 2015 9:57pm nystatin 100 unt/mg topical powder (7 sources) Polyene Antifungal Start: 09-10-2022 End: 09-28-2022 Nystatin (Nyamyc) 100,000 unit/gram Powder Discontinued 1 NMA TOPICAL TWICE A DAY 0 0 September 10, 2022 12:00am September 28, 2022 9:24pm redness/yeast Please contact the information source for Protocol details. Start: 09-10-2022 End: 09-28-2022 Nystatin (Nyamyc) 100,000 un it/gram Powder Discontinued 1 APPLIC TOPICAL TWICE A DAY 0 September 10, 2022 12:00am September 28, 2022 9:24pm polyethylene glycol 3350 29539 mg powder for oral solution (5 sources) Osmotic Laxative Start: 05-09-2024 End: 06-21-2024 polyethylene glycol 3350 17 gram packet Take 1 Packet by mouth once daily. Dissolve dose in 4 - 8 ounces of liquid and take as directed. 05/09/2024 06/21/2024 Discontinued propranolol hydrochloride 20 mg oral tablet (16 sources) beta-Adrenergic Azra Start: 01-14-2013 End: 03-20-2016 take 20 mg by mouth twice daily Propranolol HCl Discontinued 20 mg PO TWICE A DAY 60 0 June 19, 2015 9:57pm March 20, 2016 11:11am Problems Active Problems Problem Classification Problem Date Documented Da te Episodic/Chronic Acute posthemorrhagic anemia (13 sources) Acute posthemorrhagic anemia; Translations: [Acute posthemorrhagic anemia] 09-09-2022 Episodic Anxiety disorders (1 source) Mixed anxiety and depressive disorder; Translations: [Other specified anxiety disorders] 09-01-2023 Chronic Cardiac dysrhythmias (8 sources) Paroxysmal atrial fibrillation; Translations: [Paroxysmal atrial fibrillation] 03-20-2016 Chronic Comment on above: not a candidate for anticoagulation due to falls Conditions associated with dizziness or vertigo (16 sources) Dizziness; Translations: [Dizziness and giddiness] 05-25-2023 Episodic Deficiency and other anemia (2 sources) Anemia due to blood loss; Translations: [Iron deficiency anemia secondary to blood loss (chronic)] 06-10-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 Disorders of lipid metabolism (20 sources) Mixed hyperlipidemia; Translations: [Mixed hyperlipidemia] Onset: Chronic Esophageal disorders (6 sources) Gastroesophageal reflux disease; Translations: [Gastro-esophageal reflux disease without esophagitis] 05-10-2024 Chronic Fracture of neck of femur (hip) (20 sources) Fracture of bone of hip region; Translations: [Fracture of unspecified part of neck of unspecified femur, initial encounter for closed fracture] 06-05-2015 Episodic Fracture of upper limb (8 sources) Fracture of clavicle; Translations: [Fracture of unspecified part of right clavicle, initial encounter for closed fracture] 04-30-2018 Episodic Genitourinary symptoms and ill-defined conditions (9 sources) Urge incontinence of urine; Translations: [Urge incontinence] Chronic Comment on above: intermittent Headache; including migraine (6 sources) Migraine; Translations: [Migraine, unspecified, not intractable, without status migrainosus] 05-10-2024 Chronic Mood disorders (20 sources) Recurrent major depressive episodes; Translations: [Major depressive disorder, recurrent, unspecified] Onset: 6 Chronic Nutritional deficiencies (20 sources) Vitamin D deficiency; Translations: [Vitamin D deficiency, unspecified] Onset: 0 Chronic Open wounds of extremities (9 sources) Tear of skin; Translations: [Laceration without foreign body of right forearm, initial encounter] Onset: 04-30-2018 Episodic Osteoporosis (20 sources) Osteoporosis; Translations: [Other osteoporosis without current pathological fracture] Onset: 6 Chronic Other aftercare (1 source) Post-discharge follow-up; Translations: [Encounter for follow-up examination after completed treatment for conditions other than malignant neoplasm] 05-27-2023 Episodic Other aftercare (1 source) Long-term current use of bisphosphonates; Translations: [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 bisphosphonates] 09-03-2024 Episodic Other aftercare (1 source) 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; Translations: [Long-term (current) use of other medications] 09-03-2024 Episodic Other circulatory disease (3 sources) H/O: atrial fibrillation; Translations: [Personal history of other diseases of the circulatory system] 11-03-2023 Episodic Other circulatory disease (2 sources) Elevated blood-pressure reading without diagnosis of hypertension; Translations: [Elevated blood-pressure reading, without diagnosis of hypertension] 08-21-2024 Episodic Other ear and sense organ disorders (4 sources) Impacted cerumen; Translations: [Impacted cerumen, unspecified ear] 05-25-2023 Episodic Other ear and sense organ disorders (1 source) Impacted cerumen of bilateral ears; Translations: [Impacted cerumen, bilateral] 05-30-2023 Episodic Other fractures (6 sources) Compression fracture of thoracic spine; Translations: [Wedge compression fracture of T11-T12 vertebra, initial encounter for closed fracture] 05-13-2024 Episodic Other fractures (1 source) Wedge compression fracture of T11-T12 vertebra, sequela; Translations: [Closed wedge compression fracture of T12 vertebra, sequela] Onset: Episodic Other fractures (1 source) Wedge compression fracture of T11-T12 vertebra, initial encounter for closed fracture; Translations: [Closed wedge compression fracture of T11 vertebra, initial encounter ([facility])] Onset: 5 Episodic Other gastrointestinal disorders (8 sources) Heartburn; Translations: [Heartburn] Episodic Other gastrointestinal disorders (6 sources) Incontinence of feces; Translations: [Full incontinence of feces] 10-09-2022 Episodic Comment on above: intermittent Other gastrointestinal disorders (2 sources) Full incontinence of feces; Translations: [Full incontinence of feces] 10-01-2022 Episodic Other hereditary and degenerative nervous system conditions (20 sources) Primary lateral sclerosis; 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] Onset: 4 06-11-2013 Chronic Other hereditary and degenerative nervous system conditions (1 source) Primary lateral sclerosis; 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)] Onset: 4 Chronic Other injuries and conditions due to external causes (1 source) History of fall; Translations: [History of falling] 09-03-2024 Episodic Other nervous system disorders (3 sources) Unable to walk; Translations: [Difficulty in walking, not elsewhere classified] 11-13-2023 Chronic Other nervous system disorders (11 sources) Abnormal gait; Translations: [Unsteadiness on feet] Onset: 5 06-21-2024 Episodic Other nervous system disorders (1 source) Unsteadiness on feet; Translations: [Gait instability] Onset: 5 Episodic Other non-traumatic joint disorders (1 source) Ankle edema; Translations: [Effusion, right ankle] 08-31-2023 Episodic Other non-traumatic joint disorders (1 source) Effusion of right knee joint; Translations: [Effusion, right knee] 09-13-2024 Episodic Other nutritional; endocrine; and metabolic disorders (2 sources) H/O: hypothyroidism; Translations: [Personal history of other endocrine, nutritional and metabolic disease] 08-21-2024 Episodic Other screening for suspected conditions (not mental disorders or infectious disease) (8 sources) Patient encounter status; Translations: [Encounter for screening mammogram for malignant neoplasm of breast] Episodic Other upper respiratory disease (2 sources) Anterior epistaxis; Translations: [Epistaxis] 08-21-2024 Episodic Other upper respiratory disease (1 source) Epistaxis; Translations: [Epistaxis] Onset: 5 Episodic Residual codes; unclassified (6 sources) Sleep apnea; Translations: [Sleep apnea, unspecified] 10-09-2022 Chronic Residual codes; unclassified (2 sources) Sleep apnea, unspecified; Translations: [Unspecified sleep apnea] 10-01-2022 Chronic Residual codes; unclassified (14 sources) History of operation on musculoskeletal system; Translations: [Other specified postprocedural states] 09-07-2022 Episodic Residual codes; unclassified (8 sources) H/O Spinal surgery; Translations: [Other specified postprocedural states] 09-07-2022 Episodic Comment on above: T12 - 03/18/16 Residual codes; unclassified (2 sources) Other specified postprocedural states; Translations: [Other postprocedural status] 10-01-2022 Episodic Residual codes; unclassified (1 source) Bilateral lower limb edema; Translations: [Localized edema] 08-29-2023 Episodic Screening and history of mental health and substance abuse codes (1 source) Encounter for screening examination for other mental health and behavioral disorders; Translations: [Encounter for screening examination for other mental health and behavioral disorders] Onset: 5 Episodic Spondylosis; intervertebral disc disorders; other back problems (10 sources) Lumbar spondylosis; Translations: [Spondylosis without myelopathy or radiculopathy, lumbar region] Onset: 5 06-21-2024 Chronic Superficial injury; contusion (5 sources) Right wrist contusion; Translations: [Contusion of right wrist, initial encounter] 05-13-2024 Episodic Thyroid disorders (20 sources) Hypothyroidism; Translations: [Other specified hypothyroidism] Onset: 6 Chronic Unclassified (3 sources) Xrays at 0945 Unclassified (3 sources) pt will make appt Unclassified (1 source) Age-related osteoporosis with current pathological fracture, other site, subsequent encounter for fracture with routine healing; Translations: [Age-related osteoporosis with current pathological fracture, other site, subsequent encounter for fracture with routine healing] Onset: 5 Urinary tract infections (12 sources) Urinary tract infectious disease; Translations: [Urinary tract infection, site not specified] 09-08-2022 Episodic Past or Other Problems Problem Classification Problem Date Documented Date Episodic/Chronic Deficiency and other anemia (20 sources) Anemia; Translations: [Anemia, unspecified] Onset: 12-09-2008 Episodic Deficiency and other anemia (1 source) Anemia, unspecified; Translations: [Anemia, unspecified type] Onset: 12-09-2008 Episodic E Codes: Fall (20 sources) Fall; Translations: [Unspecified fall, initial encounter] Onset: 05-06-2024 10-09-2022 Episodic Headache; including migraine (20 sources) Headache; Translations: [Headache] Onset: 03-16-2005 03-16-2005 Episodic Malaise and fatigue (19 sources) Asthenia; Translations: [Other malaise] Onset: 11-05-2023 10-09-2022 Episodic Other connective tissue disease (20 sources) Muscle pain; Translations: [Myalgia, unspecified site] Onset: 03-16-2005 07-03-2015 Episodic Other fractures (20 sources) Compression fracture of vertebral column; Translations: [Collapsed vertebra, not elsewhere classified, site unspecified, initial encounter for fracture] Onset: 01-24-2013 01-24-2013 Episodic Other fractures (20 sources) Fracture of twelfth thoracic vertebra; Translations: [Wedge compression fracture of T11-T12 vertebra, initial encounter for closed fracture] Onset: 05-06-2024 03-17-2016 Episodic Other fractures (19 sources) Fracture of multiple ribs ; Translations: [Multiple fractures of ribs, unspecified side, initial encounter for closed fracture] Onset: 05-06-2024 05-08-2024 Episodic Other fractures (13 sources) Closed fracture of multiple left and right ribs; Translations: [Multiple fractures of ribs, bilateral, initial encounter for closed fracture] Onset: 05-06-2024 05-09-2024 Episodic Other fractures (14 sources) Closed fracture thoracic vertebra, wedge; Translations: [Wedge compression fracture of T11-T12 vertebra, subsequent encounter for fracture with routine healing] Onset: 05-08-2024 05-08-2024 Episodic Other fractures (2 sources) Multiple fractures of ribs, bilateral, initial encounter for closed fracture; Translations: [Closed fracture of multiple ribs of both sides, initial encounter] Onset: 05-09-2024 Episodic Other injuries and conditions due to external causes (13 sources) Traumatic injury; Translations: [Injury, unspecified, initial encounter] Onset: 05-08-2024 05-08-2024 Episodic Other lower respiratory disease (13 sources) Respiratory insufficiency; Translations: [Other abnormalities of breathing] Onset: 05-07-2024 05-07-2024 Episodic Other nervous system disorders (13 sources) Acute pain due to injury; Translations: [Acute pain due to trauma] Onset: 05-07-2024 05-07-2024 Episodic Paralysis (20 sources) Paralysis; 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, unspecified] Onset: 11-23-2007 Resolved: 09-03-2024 04-10-2009 Chronic Spondylosis; intervertebral disc disorders; other back problems (20 sources) Backache; Translations: [Dorsalgia, unspecified] Onset: 01-24-2013 01-24-2013 Episodic Syncope (20 sources) Syncope; Translations: [Syncope and collapse] Onset: 05-08-2024 03-17-2016 Episodic Results Test Name Value Interpretation Reference Range Facility Emergency Department Summary on 09-13-2024 Emergency Department Summary [facility] Medical Records Department [address] [place] [address] Emergency Department Summary 09/13/24 MR#: [id number] Acct: [id number] Name: BRIANNE COCHRAN Rep #: [id number] : 1945 78 From: Carroll Weaver MD PCP: Dr. Vera Pompa MD Status:REG ER Location: ED HPI HPI - Fall History of Present Illness Chief Complaint: Fall Informant: patient Occured/Mechanism Occurred: Today and Hours Mechanism/Context: Yes same level fall Usually ambulates: Without assistance Pain/Injury Pain Location: lower extremity (Right hip and right knee pain post fall.) Quality of Pain: Sharp Current Severity: Moderate Maximum Severity: Moderate Associated Symptoms Associated Symptoms: Negative for Parasthesias, Weakness, Loss of function, Inability to ambulate, Loss of consciousness or Amnesia Narrative Narrative: 78 year-old female says she occasionally falls at home. Today she just lost her balance fell on the hardwood floor. Injuring her right knee and right hip. Denies any head injury. No headache. No LOC. This occurred around 130 today. Complaining primarily of right knee and right leg posterior hip iliac crest pain. She believes she hit her knee and then landed on her buttock. She is on no blood thinners. She denies recent illness or recent hospitalization. Prior similar symptoms: Yes Recent Illness/Hospitalizati on: No PFSH PFSH Medical History Hypothyroid Non-smoker Sleep apnea Hypertension Migraines Chronic anemia Obesity Anxiety and depression GERD (gastroesophageal reflux disease) HLD (hyperlipidemia) PAF (paroxysmal atrial fibrillation) Fibromyalgia Osteoporosis Paroxysmal atrial fibrillation T12 compression fracture Closed right hip fracture Syncope Home Medications ???Medication ???Instructions ???Recorded ???Last Taken ???Type alendronate 70 mg tablet 70 mg PO UD osteoporosis 09/07/22 08/16/24 History atorvastatin 20 mg tablet 20 mg PO QHS HLD 09/07/22 09/09/22 History fluoxetine 40 mg capsule 40 mg PO DAILY depression 09/07/22 09/10/22 History omeprazole 20 mg capsule,delayed 20 mg PO DAILY GERD 09/07/2205/09 History release calcium carbonate 500 mg (2.5 x 200 mg calcium (500 09/10/22 08/21/24 Rx mg)) PO TIDCM supplement #30 tabs levothyroxine 100 mcg tablet 100 mcg PO DAILY THYROID 05/05/24 08/21/24 History cholecalciferol (vitamin D3) 25 50 mcg (2 x 25 mcg (1,000 unit)) 0 05/22/24 Unknown Rx mcg (1,000 unit) tablet PO DAILY #0 tabs multivitamin-iron 9 mg-folic acid 1 tab PO DAILYCM #0 tabs 05/22/24 Unknown Rx 400 mcg-calcium and minerals tablet (Therapeutic-M) acetaminophen 500 mg tablet 1,000 mg PO Q8 PRN pain 08/21/24 0 08/21/24 History Allergy/AdvReac Type Severity Reaction Status Date / Time codeine Allergy Unknown Verified 09/13/24 14:56 codeine phosphate (From AdvReac Unknown Verified 09/13/24 14:56 Tylenol-Codeine #3) nabumetone (From Relafen) AdvReac Unknown Verified 09/13/24 14:56 naproxen AdvReac Unknown Verified 09/13/24 14:56 Family History Mother Cancer Father Cancer Surgical History S/P ORIF (open reduction internal fixation) fracture History of section H/O ovarian cystectomy History of total right hip replacement S/P kyphoplasty S/P ORIF (open reduction internal fixation) fracture Social History household members: spouse Smoking Status: Never smoker alcohol intake: never substance use type: does not use ROS ROS ED ROS Narrative Denies recent illness Constitutional Constitutional ED: Denies chills Eyes Eyes: Denies blurry vision ENT ENT ED: Denies ear pain Cardiovascular Cardiovascular: Denies chest pain Respiratory/Chest Respiratory/Chest: Denies cough or dyspnea Gastrointestinal Gastrointestinal: Denies abdominal pain Genitourinary Genitourinary ED: Denies dysuria or hematuria Musculoskeletal Musculoskeletal: Denies arthralgias Integumentary Denies abscess Neurologic Neurologic: Denies headache(s) Psychiatric Psychiatric: Denies anxiety Endocrine Endocrinology: Denies polydipsia, polyphagia or polyuria Hematologic/Lymphatic Hematologic/Lymphatic : Denies easy bleeding or easy bruising Allergic/Immunologic Allergic/Immunologic ED: Denies mouth swelling, tongue swelling or urticaria EXAM Physical Exam Narrative Exam Narrative: 78-year-old female sitting upright in a wheelchair in triage room 2 due to current volume and acuity. Vital signs are stable afebrile. No acute distress. Currently no family present. H EENT exam pupils round react light. Mytrex membranes. No traum (more content not included)... Normal [facility] HIP, UNI W/ Pelvis 2-3 Views on 09-13-2024 HIP, UNI W/ Pelvis 2-[address] [facility] Imaging Services [address] [place] [address] HIP, UNI W/ Pelvis 2-3 Views MR#: [id number] Acct: [id number] Name: BRIANNE COCHRAN Rep #: [id number] : 1945 F 78 From: Yanci Jo nd, MD PCP: Dr. Vera Pompa MD Status: REG ER Study: HIP, UNI W/ Pelvis 2-3 Views Date of Exam: 06/05 Exam# [id number] Ordering Dr: Carroll Weaver MD PROCEDURE: HIP, UNI W/ PELVIS 2-3 VIEWS 09/13/2024 REASON FOR EXAM: FALL AND PAIN TECHNIQUE: HIP, UNI W/ PELVIS 2-3 VIEWS COMPARISON: Prior hip and pelvis radiographs 09/24/2022. FINDINGS: Bones: Increased interval bone demineralization. Prior ORIF of the bilateral hips, unchanged. Interval osseous healing of the prior left lesser trochanter fracture. No obvious acute fracture. Joints: Normal alignment. Moderate degenerative changes. Soft tissues: Soft tissues are unremarkable. Other: The visualized bowel loops are normal caliber. RAD/HIP, UNI W/ Pelvis 2-3 Views IMPRESSION: Prior ORIF of the bilateral hips. No obvious acute fracture. Reading Location: [facility] CC: Dr. Carroll Weaver MD; Dr. Vera Pompa MD Dip Dyer: Signed Normal [facility] Knee 4 or More Viewson 09-[address] [facility] Imaging Services [facility] [place] [address] Knee 4 or More Views MR#: [id number] Acct: [id number] Name: BRIANNE COCHRAN Rep #: [id number] : 1945 F 78 From: Yanci Jo nd, MD PCP: Dr. Vera Pompa MD Status: REG ER Study: Knee 4 or More Views Date of Exam: 09/13/24 Exam# [id number] Ordering Dr: Carroll Weaver MD PROCEDURE: KNEE 4 OR MORE VIEWS 09/13/2024 REASON FOR EXAM: FALL AND PAIN TECHNIQUE: KNEE 4 OR MORE VIEWS COMPARISON: None. FINDINGS: Bones: Severe diffuse bone demineralization. No obvious acute fracture. No aggressive osseous lesion. Joints: Moderate degenerative changes. Effusion: Small joint effusion. Soft tissues: Soft tissues are unremarkable. RAD/Knee 4 or More Views IMPRESSION: Severe diffuse bone demineralization, which limits osseous evaluation. No obvious acute fracture. Small effusion. Reading Location: [facility] CC: Dr. Carroll Weaver MD; Dr. Vera Pompa MD Dip Dyer: Signed [facility] CNOVon 09-03-2024 CNOV Office Visit (FAMPWS ) DIMASBETZYBRIANNE Ricardo ([id number]) 1945 F Date Time Provider Department 09/03/24 12:00 PM VERA POMPA FAMPWS During your visit today, we recorded the following information about you: Pulse Respiration Blood pressure Weight 86/minute 16/minute 128/78 59.8 kg Height 1.499 m Vera Pompa MD 09/03/2024 12:39 PM Signed Brianne Cochran is a 78 year old female here for a Medicare wellness visit. Medicare Health Risk Assessment General Health Fair Exercise: Minutes/Day 0 min Exercise: Days/Week 0 days Alcohol: Daily Use Never Alcohol: Drinks/Day Patient does not drink Alcohol: 6 or more drinks Never Feel off balance Yes (uses a walker) Concerns: Teeth/Dentures No Concerns: Sexual function No Troubled by feelings None of the above Frequency: Eating healthy diet More than half the days ADLs requiring help None of the above; Driving Safety precautions in home/vehicle Yes Smoke, vape, chews tobacco No Difficulty hearing No Difficulty seeing Yes Current Providers Specialists: I have reviewed specialist-related care of the patient in the medical record. Current care team: Patient Care Team: Vera Pompa MD as PCP - General (Family Medicine) Luis Enrique Caicedo APRN.CNP as Medical Assistant Cardiology (Family Medicine) Medical/Family history review Reviewed and updated problem list, medical/surgical/fami ly/social history, medications, and allergies. Opioid use review Opioid Medications (last 90 days) No data to display Anxiety/Depression screening PHQ-2 Score: 1 (Lower risk for depression) Recommendation: no further intervention at this time Cognitive screening Mini Cog Score: 4 Cognitive screening reviewed and No further action needed (score 3-5). Functional Observation Was the patient's Timed Up AND Go test unsteady or >= 12 seconds? Yes Advance Care Planning Surrogate decision maker and/or advance care plan documented Measurements BP 128/78 Pulse 86 Resp 16 Ht 149.9 cm (4' 11) Wt 59.8 kg (131 lb 13.4 oz) SpO2 99% BMI 26.63 kg/m? Vision Screening: Right: 20/40 Left: 20/ 40 Both: 2030 Assessment/Plan Medicare annual wellness visit, initial (Z00.00) - Counseled on healthy diet and regular exercise - Fall avoidance information provided - Personalized prevention plan provided - Discussed need for and benefit of weight loss. BMI 26.63 kg/(m2) Chief Complaint Patient presents with: Medicare Wellness Exam Follow up HPI Brianne Cochran is a 78 year old female who presents here today for follow up BP and Nose bleed. Here with . Brianne Cochran is a 78-year-old female, with a history of falls, osteoporosis, and depression, presenting for a Medicare Annual Wellness Visit. Brianne reports difficulty with mobility and balance, stating, It's just hard for me to do anything. She uses a walker for ambulation and has experienced multiple falls, with the most recent fall occurring a few months ago. She also had a fall earlier this year, resulting in rib fractures and a compression fracture of the spine, for which she was hospitalized and underwent rehabilitation. She reports recovery from these injuries but notes a perceived worsening of strength and balance over time, stating, I feel like it's getting worse, I can't do nothing anymore. She denies understanding the cause of her falls, stating, I don't know why. Brianne has a son who lives nearby and monitors her well-being, especially in the evenings. She has a ramp built by her religious to facilitate easier access to her home. She has participated in physical therapy in the past but has not done so recently. She possesses weights and resistance bands at home but admits to forgetting to use them regularly. Brianne was seen in the emergency room a few weeks ago for a nosebleed, which was treated with cauterization. She denies a history of epistaxis and reports no issues since the incident. She is currently on multiple medications, including levothyroxine 100 mcg daily, atorvastatin 20 mg daily, omeprazole, fluoxetine for depression, calcium, and alendronate once a week for osteoporosis. She denies current use of gabapentin and has Flexeril prescribed as needed. She reports doing okay on her medications and denies needing any refills at this time. Brianne tries to maintain a healthy diet, consuming vegetables and fruits daily, but admits to enjoying ice cream and candy. She denies seeing any other specialists and has advanced directives set up, though they have not been distributed. Past medical history, appointments, medications, allergies reviewed. Previous Medical History PAST MEDICAL HISTORY Diagnosis Date Adjustment disorder with depressed mood Breast calcifications 12/2016 Depression Iron deficiency anemia, unspecified Lateral sclerosis Migraine headache without aura < (more content not included)... Normal [facility] Emergency Department Summary on 08-21-2024 Emergency Department Summary [facility] Medical Records Department [address] [address] Emergency Department Summary 08/21/24 MR#: [id number] Acct: [id number] Name: BRIANNE COCHRAN Rep #: [id number] : 1945 78 From: Graham Lzoano MD PCP: Dr. Vera Pompa MD Status:REG ER Location: ED HPI History of Present Illness Chief Complaint: Nosebleed Detail of Chief Complaint: Spontaneous nosebleed left naris Informant: patient Onset/Context/Timing Onset: Hours (45 minutes prior to arrival) Context: Sudden Onset Timing: Continuous Quality: Bleeding from left naris Location: Left Current Severity: Mild Maximum Severity: Mild Worsened by: Nothing Relieved by: Nothing Associated Symptoms Associated Symptoms: None Narrative Narrative: Patient is a 78-year-old woman. She states she was sitting when she noted blood from the left nares. There is no trauma. She does not have history of hypertension. She is not on antithrombotic or anticoagulant to her knowledge. She states she took 2 acetaminophen prior to the nosebleed. Patient denies headache. Patient [place] visual, ocular auditory symptoms. Prior similar symptoms: Yes Recent Illness/Hospitalizati on: No PFSH PFSH Medical History Hypothyroid Non-smoker Sleep apnea Hypertension Migraines Chronic anemia Obesity Anxiety and depression GERD (gastroesophageal reflux disease) HLD (hyperlipidemia) PAF (paroxysmal atrial fibrillation) Fibromyalgia Osteoporosis Paroxysmal atrial fibrillation T12 compression fracture Closed right hip fracture Syncope Home Medications ???Medication ???Instructions ???Recorded ???Last Taken ???Type alendronate 70 mg tablet 70 mg PO UD osteoporosis 09/07/22 08/16/24 History atorvastatin 20 mg tablet 20 mg PO QHS HLD 09/07/22 09/09/22 History fluoxetine 40 mg capsule 40 mg PO DAILY depression 09/07/22 09/10/22 History omeprazole 20 mg capsule,delayed 20 mg PO DAILY GERD 09/07/2205/09 History release calcium carbonate 500 mg (2.5 x 200 mg calcium (500 09/10/22 08/21/24 Rx mg)) PO TIDCM supplement #30 tabs levothyroxine 100 mcg tablet 100 mcg PO DAILY THYROID 05/05/24 08/21/24 History cholecalciferol (vitamin D3) 25 50 mcg (2 x 25 mcg (1,000 unit)) 0 05/22/24 Unknown Rx mcg (1,000 unit) tablet PO DAILY #0 tabs multivitamin-iron 9 mg-folic acid 1 tab PO DAILYCM #0 tabs 05/22/24 Unknown Rx 400 mcg-calcium and minerals tablet (Therapeutic-M) acetaminophen 500 mg tablet 1,000 mg PO Q8 PRN pain 08/21/24 0 08/21/24 History Allergy/AdvReac Type Severity Reaction Status Date / Time codeine Allergy Unknown Verified 08/21/24 15:45 codeine phosphate (From AdvReac Unknown Verified 08/21/24 15:45 Tylenol-Codeine #3) nabumetone (From Relafen) AdvReac Unknown Verified 08/21/24 15:45 naproxen AdvReac Unknown Verified 08/21/24 15:45 Family History Mother Cancer Father Cancer Surgical History S/P ORIF (open reduction internal fixation) fracture History of section H/O ovarian cystectomy History of total right hip replacement S/P kyphoplasty S/P ORIF (open reduction internal fixation) fracture Social History household members: spouse Smoking Status: Never smoker alcohol intake: never substance use type: does not use ROS ROS ED Constitutional Constitutional ED: Denies chills or fever(s) Eyes Eyes: Denies blurry vision or change in vision ENT ENT ED: Reports other Details: Per HPI narrative ; Denies ear pain, rhinorrhea or sore throat Cardiovascular Cardiovascular: Reports chest pain and palpitations Respiratory/Chest Respiratory/Chest: Reports dyspnea and dyspnea on exertion Hematologic/Lymphatic Hematologic/Lymphatic : Reports systems reviewed and no addt'l complaints, except as documented; Denies easy bleeding or easy bruising EXAM Physical Exam Const Vital Signs: 08/21/24 15:44 Temperature 97.4 F L Temperature Source Temporal Pulse Rate 86 Respiratory Rate 18 Blood Pressure 159/88 H Blood Pressure Mean 111 Pulse Ox 98 Oxygen Delivery Method Room Air Positive well nourished and well developed General Appearance ED: well developed and NAD; Negative for pallor HEENT Reports moist mucous membranes HEENT Narrative: Head is atraumatic and normocephalic. Ears normal. In the middle of Calci-Mix plexus on the left there is a small arterial bleed noted. Plan is to anesthetize her nose using Hilaria solution and then cauterized the area around the bleeding site. Eyes PERRL and EOMs intact bilaterally General Eye ED: Negative for pale conjunctiva or scle (more content not included)... Normal [facility] 06-22-2024 [facility] Telephone ([facility]) BRIANNE COCHRAN ([id number]) 1945 F Date Time Provider Department 06/22/24 [facility] During your visit today, we recorded the following information about you: Nuzhat Naik APRN.[facility] 06/22/2024 9:43 AM Signed Patient last seen in the office on 06/21/2024 by myself. Please refer to office note for complete documentation. Patient had known compression deformities at T11 and T12 with associated thoracolumbar kyphosis. Thoracolumbar x-rays were unable to be viewed at office visit due to computer difficulties. Thoracolumbar x-rays performed on 06/21/2024 reviewed, unchanged compared to previous imaging. Redemonstration of severe compression deformity at T11. Known compression fracture at T12 with previous kyphosis. Stable alignment compared to previous imaging. Attempted to contact patient to discuss radiographic imaging results, no answer. Unable to leave voicemail as voicemail box has not been set up yet. At last office visit, patient denied back or radicular pain. She had not been utilizing TLSO brace. Recommend continuing plan of care as previously discussed with patient to include gradually increasing activity as tolerated but caution not to overdo activity can continue TLSO brace as needed for comfort and support. Recommended participation in physical therapy for gait instability and fall prevention. Follow-up with neurosurgery on an as-needed basis if any new or worsening symptoms arise. @JAYLENE@ Nuzhat Naik APRN-[facility] Allergies As of Date: 06/22/2024 Noted Allergy Reaction ACETAMINOPHEN-CODEINE 04/07/2023 16 - Unknown BIAXIN (CLARITHROMYCIN) 03/16/2005 16 - Unknown Comments: Doesn't remember, was a long time ago CODEINE 01/05/2007 Comments: unknown-long time ago NAPROXEN 11/23/2007 2 - Rash Comments: Generalized, nonpruritic RELAFEN (NABUMETONE) 03/16/2005 16 - Unknown Comments: Doesn't remember Date Reviewed: 06/21/2024 Reviewed by: Josefina Schuster MA - Fully Assessed Prescriptions as of 06/22/2024 - acetaminophen (TYLENOL) 500 mg tablet 1,000 mg. - methocarbamol (ROBAXIN) 500 mg tablet Take 500 mg by mouth three times a day as needed. - FLUoxetine (PROZAC) 40 mg capsule Take 1 capsule by mouth once daily. - gabapentin (NEURONTIN) 100 mg capsule Take 1 capsule by mouth every 8 hours for 14 days. - lidocaine (SALONPAS) 4 % patch Apply 1 Patch as directed once daily. - levothyroxine (SYNTHROID) 100 mcg tablet Take 1 tablet by mouth once daily. - alendronate (FOSAMAX) 70 mg tablet Take 1 tablet by mouth one time a week. - omeprazole (PRILOSEC) 20 mg capsule Take 1 capsule by mouth daily before breakfast. 1/2 hr before meal. - atorvastatin (LIPITOR) 20 mg tablet Take 1 tablet by mouth once daily. - meclizine 25 mg chewable tablet(s) CHEW AND SWALLOW 1 TABLET THREE TIMES DAILY NEEDED FOR DIZZINESS - triamcinolone (KENALOG) 0.025 % ointment Apply [...] once daily. 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] 06/11/2013 Hyperlipidemia, mixed [E78.2] 03/12/2020 Multiple rib fractures involving four or more r*05/06/2024 Fall [W19.XXXA] 05/06/2024 Multiple closed fractures of ribs of both sides*05/06/2024 Closed wedge compression fracture of T12 verteb*05/06/2024 Acute pain due to trauma [G89.11] 05/07/2024 Acute respiratory insufficiency [R06.89] 05/07/2024 Closed wedge compression fracture of T11 verteb*05/08/2024 Trauma [T14.90XA] 05/08/2024 Syncope and collapse [R55] 05/08/2024 Lumbar spondylosis [M47.816] 06/21/2024 Gait instability [R26.81] 06/21/2024 Encounter Status:Closed by NUZHAT NAIK on 06/22/24 [facility] 06-21-2024 [facility] Office Visit ([facility]) BRIANNE COCHRAN ([id number]) 1945 F Date Time Provider Department 06/21/24 2:00 PM [facility] During your visit today, we recorded the following information about you: Pulse Blood pressure Weight Height 84/minute 131/84 59 kg 1.524 m Nuzhat Naik APRN.[employer] 06/21/2024 2:42 PM Signed SPINE SURGERY FOLLOW UP NOTE Nuzhat Naik APRN-[facility] Date of visit: June 21, 2024 Patient Name: Ms.Joyce Ricardo Cochran Date of : 1945 Current Age: [age] year old Sex: female MRN/E# [id number] Last Office Visit: 05/10/2024 Chief Complaint: Patient presents with: [facility] Neurosurgery Encounter: Dr. Benedict progress note from 05/06/24: NS plan of care - MRI reviewed; chronic T11, T12 fractures. No edema to suggest any acuity. Pain seems to be coming from rib fractures. Neuro intact on exam. TLSO brace for comfort. Upright films in brace. Will repeat XR in 6 weeks in the outpatient setting. Terrance Benedict MD HPI: Ms.Joyce Ricardo Cochran presented to [facility] on 05/05/2024 after a ground level fall. Neurosurgery, Dr. Benedict, consulted for thoracic fractures. MRI of thoracic spine reviewed by Dr. Benedict and noted chronic T11 and 12 fracture with no edema to suggest acuity. Nonoperative management with a TLSO brace for comfort was recommended. She was asked to follow-up outpatient with neurosurgery in 6 weeks time with repeat thoracic x-rays, prompting her visit today. Brianne is a 78-year-old female presenting for follow-up after a recent hospitalization. Brianne reports significant improvement in back pain, currently rating it as 0/10. She does not endorse any sharp, shooting, or stabbing pain radiating into her legs. She has not been wearing her TLSO brace, which was previously recommended for comfort and support. She does not report any falls since her last hospitalization. She describes difficulty with leg strength, particularly when climbing stairs, and notes a decrease in arm strength. She has not been participating in physical therapy recently but expresses willingness to resume exercises at home. Symptoms: Gait instability. Denied back or radicular pain PAIN EVALUATION No data found in the last 1 encounters. PAST MEDICAL HISTORY Diagnosis Date Adjustment disorder with depressed mood Breast calcifications 12/2016 Depression Iron deficiency anemia, unspecified Lateral sclerosis Migraine headache without aura <=1 per month as of May 2013 Myalgia and myositis, unspecified Osteoarthritis Spastic paresis (HCC) Unspecified hypothyroidism PAST SURGICAL HISTORY Procedure Laterality Date BREAST BIOPSY Left 12/16/2016 [facility]-Dr. Sandhu DELIVERY ONLY , low transverse x 2 HIP SURGERY HX Left 09/08/[address], [address] Benson PAST SURGICAL HISTORY OF cyst removed from ovaries FAMILY HISTORY Problem Relation Age of Onset Psychiatry Father Cancer Father lymphoma Headache Father other (HTN) Father Cancer Mother brain mets Psychiatry Mother depression/anxiety Headache Mother other (HTN) Mother Colon Cancer Other none Coronary Artery Disease Other none Breast Cancer Sister ALLERGIES Allergen Reactions Acetaminophen-Codei* Unknown Biaxin [Clarithromy* Unknown Doesn't remember, was a long time ago Codeine unknown-long time ago Naproxen Rash Generalized, nonpruritic Relafen [Nabumetone] Unknown Doesn't remember Current Outpatient Medications Medication Sig Dispense Refill acetaminophen (TYLENOL) 500 mg tablet 1,000 mg. methocarbamol (ROBAXIN) 500 mg tablet Take 500 mg by mouth three times a day as needed. FLUoxetine (PROZAC) 40 mg capsule Take 1 capsule by mouth once daily. 90 capsule 3 gabapentin (NEURONTIN) 100 mg capsule Take 1 capsule by mouth every 8 hours for 14 days. 42 capsule 0 levothyroxine (SYNTHROID) 100 mcg tablet Take 1 tablet by mouth once daily. 90 tablet 3 alendronate (FOSAMAX) 70 mg tablet Take 1 tablet by mouth one time a week. 12 tablet 3 omeprazole (PRILOSEC) 20 mg capsule Take 1 capsule by mouth daily before breakfast. 1/2 hr before meal. 90 capsule 3 atorvastatin (LIPITOR) 20 mg tablet Take 1 tablet by mouth once daily. 90 tablet 3 meclizine 25 mg chewable tablet(s) CHEW AND SWALLOW 1 TABLET THREE TIMES DAILY NEEDED FOR DIZZINESS triamcinolone (KENALOG) 0.025 % ointment Apply 1 application to affected area twice daily. 15 g 1 MULTIVITS W-FE,OTHER MIN/LUT (CENTRUM SILVER ULTRA WOMEN'S ORAL) Take 1 tablet by mouth once daily. calcium carbonate 600 mg-cholecalciferol 400 units 600 mg-10 mcg (400 unit) tab Take 1 tablet by mouth once daily. Cholecalciferol, Vitamin D3, 2,000 unit ORAL Cap Take 1 capsule by mouth once daily. 0 lidocaine (SALONPAS) 4 % patch Apply 1 Patch as directed once daily. (Patient not taking: Reporte (more content not included)... Normal [facility] XR THORACO LUMBAR JNCT 2V AP /LATon 06-21-2024 XR THORACO LUMBAR JNCT 2V AP/LAT * * *Final Report* * * DATE OF EXAM: Jun 21 2024 2:38PM [id number] - XR THORACO LUMBAR JNCT 2V AP/LAT / PROCEDURE REASON: Closed wedge compression fracture of T11 vertebra, initial encounter ([facility]) * * * * Physician Interpretation * * * * EXAMINATION: XR THORACO LUMBAR JNCT 2V AP/LAT HISTORY: closed wedge compression of T11, 6 week follow up Closed wedge compression fracture of T11 vertebra, initial encounter ([facility]) . TECHNIQUE: XR THORACO LUMBAR JNCT 2V AP/LAT Laterality: NOT APPLICABLE Number of different views (projections): 2 M: XB_1 COMPARISON: Radiograph 05/07/2024 and MRI 05/06/2024 RESULT: There is again noted to be a severe compression fracture of T11 with 90% loss of vertebral body height. This is similar compared to prior. Also again noted is a chronic compression fracture with vertebroplasty cement of T12. This is similar compared to prior. There is some retropulsion of the posterior portion of the vertebral body with no obvious change compared to prior. No other significant abnormality. IMPRESSION: Fractures of T11 and T12 with no obvious change compared to prior. No new abnormality is seen. Dip Dyer: REANNA Transcribe Date/Time: Jun 26 2024 12:27P Dictated by : GUERDA DIAZ MD This examination was interpreted and the report reviewed and electronically signed by: GUERDA DIAZ MD on Jun 26 2024 12:31PM EST [id number] Normal [facility] Basic Metabolic Profile (BMP )on 06-07-2024 Anion Gap Normal 5-15 [facility] Comment on above: Result Comment: Canc elled via OM: Order cancelled - Patient discharged Performed By: #### L 100.0100, L500.2500 #### [facility] [address] [facility] [address] BUN Normal 4-19 [facility] Comment on above: Result Comment: Canc elled via OM: Order cancelled - Patient discharged Performed By: #### L 100.0100, L500.2500 #### [facility] [address] [place], [address] BUN/CRE Normal 10-20 [facility] Comment on above: Result Comment: Canc elled via OM: Order cancelled - Patient discharged Performed By: #### L 100.0100, L500.2500 #### [facility] [address] [place], [address] Calcium Normal 7.6-11.0 [facility] Comment on above: Result Comment: Canc elled via OM: Order cancelled - Patient discharged Performed By: #### L 100.0100, L500.2500 #### [facility] [address] [place], [address] Chloride Normal 96-108 [facility] Comment on above: Result Comment: Canc elled via OM: Order cancelled - Patient discharged Performed By: #### L 100.0100, L500.2500 #### [facility] [address] [place], [address] CO2 Normal 22.0-29.0 [facility] Comment on above: Result Comment: Canc elled via OM: Order cancelled - Patient discharged Performed By: #### L 100.0100, L500.2500 #### [facility] [address] [place], [address] CREAT,SERUM Normal 0.6-1.0 [facility] Comment on above: Result Comment: Canc elled via OM: Order cancelled - Patient discharged Performed By: #### L 100.0100, L500.2500 #### [facility] [address] [place], [address] eGFR Normal >60 [facility] Comment on above: Result Comment: Canc elled via OM: Order cancelled - Patient discharged Performed By: #### L 100.0100, L500.2500 #### [facility] [address] [place], [address] GLU Normal 70-99 [facility] Comment on above: Result Comment: Canc elled via OM: Order cancelled - Patient discharged Performed By: #### L 100.0100, L500.2500 #### [facility] [address] [place], [address] Potassium Normal 3.3-5.1 [facility] Comment on above: Result Comment: Canc elled via OM: Order cancelled - Patient discharged Performed By: #### L 100.0100, L500.2500 #### [facility] [address] [place], [address] Sodium Normal 133-145 [facility] Comment on above: Result Comment: Canc elled via OM: Order cancelled - Patient discharged Performed By: #### L 100.0100, L500.2500 #### [facility] [address] [place], [address] CBC W/Diff, Automatedon 03-2 Absolute Neut Normal 2.0-7.7 [facility] Comment on above: Result Comment: Canc elled via OM: Order cancelled - Patient discharged Performed By: #### L 100.0100, L500.2500 #### [facility] [address] [place], [address] HCT Normal 37-47 [facility] Comment on above: Result Comment: Canc elled via OM: Order cancelled - Patient discharged Performed By: #### L 100.0100, L500.2500 #### [facility] [address] [place], [address] HGB Normal 12.0-15.0 [facility] Comment on above: Result Comment: Canc elled via OM: Order cancelled - Patient discharged Performed By: #### L 100.0100, L500.2500 #### [facility] [address] [place], [address] MCH Normal 27.0-32.0 [facility] Comment on above: Result Comment: Canc elled via OM: Order cancelled - Patient discharged Performed By: #### L 100.0100, L500.2500 #### [facility] [address] [place], [address] MCHC Normal 32-36 [facility] Comment on above: Result Comment: Canc elled via OM: Order cancelled - Patient discharged Performed By: #### L 100.0100, L500.2500 #### [facility] [address] [place], [address] MCV Normal 81-99 [facility] Comment on above: Result Comment: Canc elled via OM: Order cancelled - Patient discharged Performed By: #### L 100.0100, L500.2500 #### [facility] [address] [place], [address] NEUT% Normal 47-70 [facility] Comment on above: Result Comment: Canc elled via OM: Order cancelled - Patient discharged Performed By: #### L 100.0100, L500.2500 #### [facility] [address] [place], [address] PLT Normal 150-450 [facility] Comment on above: Result Comment: Canc elled via OM: Order cancelled - Patient discharged Performed By: #### L 100.0100, L500.2500 #### [facility] [address] [place], [address] RBC Normal 4.2-5.4 [facility] Comment on above: Result Comment: Canc elled via OM: Order cancelled - Patient discharged Performed By: #### L 100.0100, L500.2500 #### [facility] [address] [place], [address] RDW CV Normal 11.6-14.6 [facility] Comment on above: Result Comment: Canc elled via OM: Order cancelled - Patient discharged Performed By: #### L 100.0100, L500.2500 #### [facility] [address] [place], [address] RDW SD Normal 35.1-43.9 [facility] Comment on above: Result Comment: Canc elled via OM: Order cancelled - Patient discharged Performed By: #### L 100.0100, L500.2500 #### [facility] [address] [place], [address] WBC Normal 4.4-11.0 [facility] Comment on above: Result Comment: Canc elled via OM: Order cancelled - Patient discharged Performed By: #### L 100.0100, L500.2500 #### [facility] [address] [place], [address] Basic Metabolic Profile (BMP )on 05-31-2024 Anion Gap Normal 5-15 [facility] Comment on above: Result Comment: Canc elled via OM: Order cancelled - Patient discharged Performed By: #### L 100.0100, L500.2500 #### [facility] [address] [place], [address] BUN Normal 4-19 [facility] Comment on above: Result Comment: Canc elled via OM: Order cancelled - Patient discharged Performed By: #### L 100.0100, L500.2500 #### [facility] [address] [place], [address] BUN/CRE Normal 10-20 [facility] Comment on above: Result Comment: Canc elled via OM: Order cancelled - Patient discharged Performed By: #### L 100.0100, L500.2500 #### [facility] [address] [place], [address] Calcium Normal 7.6-11.0 [facility] Comment on above: Result Comment: Canc elled via OM: Order cancelled - Patient discharged Performed By: #### L 100.0100, L500.2500 #### [facility] [address] [place], [address] Chloride Normal 96-108 [facility] Comment on above: Result Comment: Canc elled via OM: Order cancelled - Patient discharged Performed By: #### L 100.0100, L500.2500 #### [facility] [address] [place], [address] CO2 Normal 22.0-29.0 [facility] Comment on above: Result Comment: Canc elled via OM: Order cancelled - Patient discharged Performed By: #### L 100.0100, L500.2500 #### [facility] [address] [place], [address] CREAT,SERUM Normal 0.6-1.0 [facility] Comment on above: Result Comment: Canc elled via OM: Order cancelled - Patient discharged Performed By: #### L 100.0100, L500.2500 #### [facility] [address] [place], [address] eGFR Normal >60 [facility] Comment on above: Result Comment: Canc elled via OM: Order cancelled - Patient discharged Performed By: #### L 100.0100, L500.2500 #### [facility] [address] [place], [address] GLU Normal 70-99 [facility] Comment on above: Result Comment: Canc elled via OM: Order cancelled - Patient discharged Performed By: #### L 100.0100, L500.2500 #### [facility] [address] [place], [address] Potassium Normal 3.3-5.1 [facility] Comment on above: Result Comment: Canc elled via OM: Order cancelled - Patient discharged Performed By: #### L 100.0100, L500.2500 #### [facility] [address] [place], [address] Sodium Normal 133-145 [facility] Comment on above: Result Comment: Canc elled via OM: Order cancelled - Patient discharged Performed By: #### L 100.0100, L500.2500 #### [facility] [address] [place], [address] CBC W/Diff, Automatedon 03-2 0-2024 Absolute Neut Normal 2.0-7.7 [facility] Comment on above: Result Comment: Canc elled via OM: Order cancelled - Patient discharged Performed By: #### L 100.0100, L500.2500 #### [facility] [address] [place], [address] HCT Normal 37-47 [facility] Comment on above: Result Comment: Canc elled via OM: Order cancelled - Patient discharged Performed By: #### L 100.0100, L500.2500 #### [facility] [address] [place], [address] HGB Normal 12.0-15.0 [facility] Comment on above: Result Comment: Canc elled via OM: Order cancelled - Patient discharged Performed By: #### L 100.0100, L500.2500 #### [facility] [address] [place], [address] MCH Normal 27.0-32.0 [facility] Comment on above: Result Comment: Canc elled via OM: Order cancelled - Patient discharged Performed By: #### L 100.0100, L500.2500 #### [facility] [address] [place], [address] MCHC Normal 32-36 [facility] Comment on above: Result Comment: Canc elled via OM: Order cancelled - Patient discharged Performed By: #### L 100.0100, L500.2500 #### [facility] [address] [place], [address] MCV Normal 81-99 [facility] Comment on above: Result Comment: Canc elled via OM: Order cancelled - Patient discharged Performed By: #### L 100.0100, L500.2500 #### [facility] [address] [place], [address] NEUT% Normal 47-70 [facility] Comment on above: Result Comment: Canc elled via OM: Order cancelled - Patient discharged Performed By: #### L 100.0100, L500.2500 #### [facility] [address] [place], [address] PLT Normal 150-450 [facility] Comment on above: Result Comment: Canc elled via OM: Order cancelled - Patient discharged Performed By: #### L 100.0100, L500.2500 #### [facility] [address] [place], [address] RBC Normal 4.2-5.4 [facility] Comment on above: Result Comment: Canc elled via OM: Order cancelled - Patient discharged Performed By: #### L 100.0100, L500.2500 #### [facility] [address] [place], [address] RDW CV Normal 11.6-14.6 [facility] Comment on above: Result Comment: Canc elled via OM: Order cancelled - Patient discharged Performed By: #### L 100.0100, L500.2500 #### [facility] [address] [place], [address] RDW SD Normal 35.1-43.9 [facility] Comment on above: Result Comment: Canc elled via OM: Order cancelled - Patient discharged Performed By: #### L 100.0100, L500.2500 #### [facility] [address] [place], [address] WBC Normal 4.4-11.0 [facility] Comment on above: Result Comment: Canc elled via OM: Order cancelled - Patient discharged Performed By: #### L 100.0100, L500.2500 #### [facility] [address] [place], [address] CNCOon 05-31-2024 CNCO Letter Text Normal [facility] CNPKelly 05-25-2024 [facility] BRIANNE COCHRAN ([id number]) 1945 F Date Time Provider Department 05/25/24 VERA POMPA [facility] During your visit today, we recorded the following information about you: Madelaine Nath RN 05/25/2024 10:56 AM Signed [place] Staff Respiratory Therapist with [facility] called and reports Pt is scheduled to be discharged from [facility] on 05/25/24 for bibasilar pneumonia, rib fracture, and back fracture. She states the Pt is supposed to be going home on O2, but they still have to do the walking test. She is asking if provider will follow for SN/PT/OT/ST. She states she may send a nurse out this weekend because the Pt may get sent home on O2 or they may go out on Tuesday05/28/24. Please call and advise. Vera Pompa MD 05/25/2024 11:50 AM Signed Yes, I will follow for SN/PT/OT/ST MD Pham [place] Amanda, KHADAR 05/25/2024 11:56 AM Signed [place] Staff Respiratory Therapist with [facility] called and is notified of providers message and instructions. She voices understanding. Madelaine Nath RN Allergies As of Date: 05/25/2024 Noted Allergy Reaction ACETAMINOPHEN-CODEINE 04/07/2023 16 - Unknown BIAXIN (CLARITHROMYCIN) 03/16/2005 16 - Unknown Comments: Doesn't remember, was a long time ago CODEINE 01/05/2007 Comments: unknown-long time ago NAPROXEN 11/23/2007 2 - Rash Comments: Generalized, nonpruritic RELAFEN (NABUMETONE) 03/16/2005 16 - Unknown Comments: Doesn't remember Date Reviewed: 05/06/2024 Reviewed by: Sheryl Solitario, KHADAR - Fully Assessed Reason for Visit: Follow HH Orders [Other] Prescriptions as of 05/25/2024 - acetaminophen (TYLENOL) 325 mg tablet Take 3 tablets by mouth every 8 hours. - gabapentin (NEURONTIN) 100 mg capsule Take 1 capsule by mouth every 8 hours for 14 days. - lidocaine (SALONPAS) 4 % patch Apply 1 Patch as directed once daily. - polyethylene glycol 3350 17 gram packet Take 1 Packet by mouth once daily. Dissolve dose in 4 - 8 ounces of liquid and take as directed. - levothyroxine (SYNTHROID) 100 mcg tablet Take 1 tablet by mouth once daily. - levothyroxine (SYNTHROID) 100 mcg tablet Take 1 tablet by mouth once daily. Take on empty stomach - alendronate (FOSAMAX) 70 mg tablet Take 1 tablet by mouth one time a week. - omeprazole (PRILOSEC) 20 mg capsule Take 1 capsule by mouth daily before breakfast. 1/2 hr before meal. - atorvastatin (LIPITOR) 20 mg tablet Take 1 tablet by mouth once daily. - FLUoxetine (PROZAC) 40 mg capsule Take 1 capsule by mouth once daily. - meclizine 25 mg chewable tablet(s) CHEW AND SWALLOW 1 TABLET THREE TIMES DAILY NEEDED FOR DIZZINESS - FLUoxetine (PROZAC) 40 mg capsule Take 1 capsule by mouth once daily. - senna-docusate (SENNA-S) 8.6-50 mg per tablet Take 1 tablet by mouth twice daily. - triamcinolone (KENALOG) 0.025 % ointment Apply [...] once daily. 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] 06/11/2013 Hyperlipidemia, mixed [E78.2] 03/12/2020 Multiple rib fractures involving four or more r*05/06/2024 Fall [W19.XXXA] 05/06/2024 Multiple closed fractures of ribs of both sides*05/06/2024 Closed wedge compression fracture of T12 verteb*05/06/2024 Acute pain due to trauma [G89.11] 05/07/2024 Acute respiratory insufficiency [R06.89] 05/07/2024 Closed wedge compression fracture of T11 verteb*05/08/2024 Trauma [T14.90XA] 05/08/2024 Syncope and collapse [R55] 05/08/2024 Encounter Status:Closed by MADELAINE NATH on 05/25/24 Normal [facility] Absolute lymphocyte countOrd ered By: Odilon Rodríguez on 05-24-2024 Lymphocytes Auto (Unsp spec) [#/Vol] 2.11 10*3/uL 0.83-4.51 [facility] Absolute neutrophil countOrd ered By: [facility] Marcos on 05-24-2024 Neutrophils (Bld) [#/Vol] 4.5 10*3/uL 2.0-7.7 [facility] Automated lymphocyte count a s percentage of total leukocytesOrdered By: Odilon Rodríguez on 05-24-2024 Lymphocytes/100 WBC Auto (Unsp spec) 27.4 % 19-41 [facility] BUN/creatinine ratioOrdered By: Odilon Rodríguez on 05-24-2024 Urea nitrogen/Creatinine [Mass ratio] 31.4 mg/mg High [facility] Basic Metabolic Profile (BMP )on 05-24-2024 Anion gap [Moles/Vol] 13 mmol/L Normal 5-15 [facility] Comment on above: Performed By: #### L 500.2500, L100.0100 #### [facility] [address] [place], [place], [address] BUN/CRE 31.4 RATIO High 12-31 [facility] Comment on above: Performed By: #### L 500.2500, L100.0100 #### [facility] [address] [place], [address] Calcium [Mass/Vol] 8.5 mg/dL Normal 7.6-11.0 [facility] Comment on above: Performed By: #### L 500.2500, L100.0100 #### [facility] [address] [place], [address] Chloride [Moles/Vol] 106 mmol/L Normal 96-108 [facility] Comment on above: Performed By: #### L 500.2500, L100.0100 #### [facility] [address] [place], [address] CO2 [Moles/Vol] 20.9 mmol/L Low 22.0-29.0 [facility] Comment on above: Performed By: #### L 500.2500, L100.0100 #### [facility] [address] [place], [address] Creatinine [Mass/Vol] 0.61 mg/dL Low 0.70-1.20 [facility] Comment on above: Performed By: #### L 500.2500, L100.0100 #### [facility] [address] [place], [address] ECRCL 48.12 ml/min Low 50-250 [facility] Comment on above: Performed By: #### L 500.2500, L100.0100 #### [facility] [address] [place], [address] GFR/1.73 sq M.predicted among non-blacks MDRD (S/P/Bld) [Vol rate/Area] 93 mL/min/{1.73_m2} Normal >60 [facility] Comment on above: Result Comment: mL/m in/1.73m2 CKD-EPI Creatinine Equation (2020) Performed By: #### L 500.2500, L100.0100 #### [facility] [address] [place], [address] Glucose [Mass/Vol] 86 mg/dL Normal 70-99 [facility] Comment on above: Performed By: #### L 500.2500, L100.0100 #### [facility] [address] [place], [address] Potassium [Moles/Vol] 4.1 mmol/L Normal 3.3-5.1 [facility] Comment on above: Performed By: #### L 500.2500, L100.0100 #### [facility] [address] [place], [address] Sodium [Moles/Vol] 139 mmol/L Normal 133-145 [facility] Comment on above: Performed By: #### L 500.2500, L100.0100 #### [facility] [address] [place], [address] Urea nitrogen [Mass/Vol] 19 mg/dL Normal 4-19 [facility] Comment on above: Performed By: #### L 500.2500, L100.0100 #### [facility] [address] [place], [address] Basophil percentageOrdered B y: Odilon Rodríguez on 05-24-2024 Basophils/100 WBC (Bld) 0.6 % 0-1 [facility] CBC W/Diff, Automatedon 05-12 Absolute Lymph 2.11 X10 3/uL Normal 0.83-4.51 [facility] Comment on above: Performed By: #### L 500.2500, L100.0100 #### [facility] [address] [place], [address] Absolute Neut 4.5 X10 3/uL Normal 2.0-7.7 [facility] Comment on above: Performed By: #### L 500.2500, L100.0100 #### [facility] [address] [place], [address] Basophils/100 WBC (Bld) 0.6 % Normal 0-1 [facility] Comment on above: Performed By: #### L 500.2500, L100.0100 #### [facility] [address] [place], [address] Eosinophils/100 WBC (Bld) 4.5 % Normal 0-5 [facility] Comment on above: Performed By: #### L 500.2500, L100.0100 #### [facility] [address] [place], [address] Erythrocyte distribution width (RBC) [Ratio] 13.9 % Normal 11.6-14.6 [facility] Comment on above: Performed By: #### L 500.2500, L100.0100 #### [facility] [address] [place], [address] Hematocrit (Bld) [Volume fraction] 34.2 % Low 37-47 [facility] Comment on above: Performed By: #### L 500.2500, L100.0100 #### [facility] [address] [place], [address] Hemoglobin (Bld) [Mass/Vol] 11.4 g/dL Low 12.0-15.0 [facility] Comment on above: Performed By: #### L 500.2500, L100.0100 #### [facility] [address] [place], [address] IG% 0.400 Normal 0.0-0.9 [facility] Comment on above: Result Comment: IG% - Immature Granulocytes (promyelocytes, myelocytes and metamyelocytes) > 1% indicates that a LEFT SHIFT is Present. Performed By: #### L 500.2500, L100.0100 #### [facility] [address] [place], [address] Lymphocytes/100 WBC (Bld) 27.4 % Normal 19-41 [facility] Comment on above: Performed By: #### L 500.2500, L100.0100 #### [facility] [address] [place], [address] MCH (RBC) [Entitic mass] 31.2 pg Normal 27.0-32.0 [facility] Comment on above: Performed By: #### L 500.2500, L100.0100 #### [facility] [address] [place], [address] MCHC (RBC) [Mass/Vol] 33.3 g/dL Normal 32-36 [facility] Comment on above: Performed By: #### L 500.2500, L100.0100 #### [facility] [address] [place], [address] MCV (RBC) [Entitic vol] 93.7 fL Normal 81-99 [facility] Comment on above: Performed By: #### L 500.2500, L100.0100 #### [facility] [address] [place], [address] Monocytes/100 WBC (Bld) 8.2 % Normal 0-10 [facility] Comment on above: Performed By: #### L 500.2500, L100.0100 #### [facility] [address] [place], [address] Neutrophils/100 WBC (Bld) 58.9 % Normal 47-70 [facility] Comment on above: Performed By: #### L 500.2500, L100.0100 #### [facility] [address] [place], [address] Nucleated RBC (Bld) [#/Vol] 0 10*3/uL Normal 0-5 [facility] Comment on above: Performed By: #### L 500.2500, L100.0100 #### [facility] [address] [place], [address] Platelet mean volume (Bld) [Entitic vol] 9.3 fL Normal 6.2-12.0 [facility] Comment on above: Performed By: #### L 500.2500, L100.0100 #### [facility] [address] [place], [address] Platelets (Bld) [#/Vol] 477 10*3/uL High 150-450 [facility] Comment on above: Performed By: #### L 500.2500, L100.0100 #### [facility] [address] [place], [address] RBC (Bld) [#/Vol] 3.65 10*6/uL Low 4.2-5.4 [facility] Comment on above: Performed By: #### L 500.2500, L100.0100 #### [facility] [address] [place], [address] RDW SD 47.6 fl High 35.1-43.9 [facility] Comment on above: Performed By: #### L 500.2500, L100.0100 #### [facility] [address] [place], [address] WBC (Bld) [#/Vol] 7.7 10*3/uL Normal 4.4-11.0 [facility] Comment on above: Performed By: #### L 500.2500, L100.0100 #### [facility] [address] [place], [address] Carbon dioxide measurementOr dered By: Odilon Rodríguez on 05-24-2024 CO2 [Moles/Vol] 20.9 mmol/L Low 22.0-29.0 [facility] Chloride measurementOrdered By: Odilon Rodríguez on 05-24-2024 Chloride [Moles/Vol] 106 mmol/L 96-108 [facility] Eosinophil percentageOrdered By: Odilon Rodríguez on 05-24-2024 Eosinophils/100 WBC (Bld) 4.5 % 0-5 [facility] Erythrocyte distribution wid th ratioOrdered By: Odilon Rodríguez on 05-24-2024 Erythrocyte distribution width (RBC) [Ratio] 13.9 % 11.6-14.6 [facility] Erythrocyte distribution wid th standard deviationOrdered By: Odilon Rodríguez on 05-24-2024 Erythrocyte distribution width (RBC) [Entitic vol] 47.6 fL High 35.1-43.9 [facility] Erythrocyte distribution width (RBC) [Ratio] 47.6 fl High 35.1-43.9 [facility] Estimation of creatinine magno aranceOrdered By: Odilon Rodríguez on 05-24-2024 Estimated Creatinine Clearance Calc 48.12 ml/min Low 50-250 [facility] GFR/1.73 sq M.predicted simba g non-blacks MDRD (S/P/Bld) [Vol rate/Area]Ordered By: Odilon Rodríguez on 05-24-2024 Estimated GFR (MDRD) Non-Af Amer 93 >60 [facility] Comment on above: mL/min/1.73m2 CKD-EP I Creatinine Equation (2020) Glomerular filtration rate ( GFR) estimation/1.73 sq m using serum, plasma, or whole bOrdered By: Odilon Rodríguez 05-24-2024 GFR/1.73 sq M.predicted among non-blacks MDRD (S/P/Bld) [Vol rate/Area] 93 mL/min/{1.73_m2} >60 [facility] Comment on above: mL/min/1.73m2 CKD-EP I Creatinine Equation (2020) Hematocrit Auto (Bld) [Volum e fraction]Ordered By: Odilon Rodríguez 05-24-2024 Hematocrit (Bld) [Volume fraction] 34.2 % Low 37-47 [facility] Hemoglobin measurementOrdere d By: Odilon Rodríguez 05-24-2024 Hemoglobin (Bld) [Mass/Vol] 11.4 g/dL Low 12.0-15.0 [facility] Immature granulocytes/100 WB C Auto (Bld)Ordered By: Odilon Rodríguez 05-24-2024 Immature granulocytes/100 WBC (Bld) 0.400 % 0.0-0.9 [facility] Comment on above: IG% - Immature Granu locytes (promyelocytes, myelocytes and metamyelocytes) > 1% indicates that a LEFT SHIFT is Present. Lymphocytes Auto (Unsp spec) [#/Vol]Ordered By: Odilon Rodríguez 05-24-2024 Lymphocytes (Bld) [#/Vol] 2.11 10*3/uL 0.83-4.51 [facility] Lymphocytes/100 WBC Auto (Un sp spec)Ordered By: Odilon Rodríguez on 05-24-2024 Lymphocytes/100 WBC (Bld) 27.4 % 19-41 [facility] MCV (mean corpuscular volume ) determinationOrdered By: Odilon Rodríguez on 05-24-2024 MCV (RBC) [Entitic vol] 93.7 fL 81-99 [facility] Mean corpuscular hemoglobin (MCH) determinationOrdered By: Odilon Rodríguez on 05-24-2024 MCH (RBC) [Entitic mass] 31.2 pg 27.0-32.0 [facility] Mean corpuscular hemoglobin concentration (MCHC) determinationOrdered By: Odilon Rodríguez on 05-24-2024 MCHC (RBC) [Mass/Vol] 33.3 g/dL 32-36 [facility] Mean platelet volume determi nationOrdered By: Odilon Rodríguez on 05-24-2024 Platelet mean volume (Bld) [Entitic vol] 9.3 fL 6.2-12.0 [facility] Monocyte percentageOrdered B y: Odilon Rodríguez on 05-24-2024 Monocytes/100 WBC (Bld) 8.2 % 0-10 [facility] Neutrophil percentageOrdered By: Odilon Rodríguez on 05-24-2024 Neutrophils/100 WBC (Bld) 58.9 % 47-70 [facility] Nucleated red blood cell per centageOrdered By: Odilon Rodríguez on 05-24-2024 Nucleated RBC/100 WBC (Bld) [Ratio] 0 % 0-5 [facility] Platelet countOrdered By: Christoph Rodríguez on 05-24-2024 Platelets (Bld) [#/Vol] 477 10*3/uL High 150-450 [facility] RBC Auto (Bld) [#/Vol]Ordere d By: Odilon Rodríguez on 05-24-2024 RBC (Bld) [#/Vol] 3.65 10*6/uL Low 4.2-5.4 [facility] Serum creatinine measurement (mass/volume)Ordered By: Odilon Rodríguez on 05-24-2024 Creatinine [Mass/Vol] 0.61 mg/dL Low 0.70-1.20 [facility] Serum glucose measurement (m ass/volume)Ordered By: Odilon Rodríguez on 05-24-2024 Glucose [Mass/Vol] 86 mg/dL 70-99 [facility] Serum or plasma anion gap de termination (moles/volume)Ordered By: Odilon Rodríguez on 05-24-2024 Anion gap [Moles/Vol] 13 mmol/L - [facility] Serum or plasma calcium criss urement (mass/volume)Ordered By: Odilon Rodríguez on 05-24-2024 Calcium [Mass/Vol] 8.5 mg/dL 7.6-11.0 [facility] Serum or plasma potassium me asurementOrdered By: Odilon Rodríguez on 05-24-2024 Potassium [Moles/Vol] 4.1 mmol/L 3.3-5.1 [facility] Serum or plasma sodium measu rement (moles/volume)Ordered By: Odilon Rodríguez on 05-24-2024 Sodium [Moles/Vol] 139 mmol/L 133-145 [facility] Serum or plasma urea nitroge n measurement (mass/volume)Ordered By: Odilon Rodríguez on 05-24-2024 Urea nitrogen [Mass/Vol] 19 mg/dL 4-19 [facility] White blood cell (WBC) count Ordered By: Odilon Rodríguez on 05-24-2024 WBC (Bld) [#/Vol] 7.7 10*3/uL 4.4-11.0 [facility] Basic Metabolic Profile (BMP )on 05-17-2024 Anion gap [Moles/Vol] 13 mmol/L Normal 07-26 [facility] Comment on above: Performed By: #### L 500.2500, L100.0100 #### [facility] [address] [place], [address] BUN/CRE 34.2 RATIO High 10-20 [facility] Comment on above: Performed By: #### L 500.2500, L100.0100 #### [facility] [address] [place], [address] Calcium [Mass/Vol] 8.6 mg/dL Normal 7.6-11.0 [facility] Comment on above: Performed By: #### L 500.2500, L100.0100 #### [facility] [address] [place], [address] Chloride [Moles/Vol] 105 mmol/L Normal 96-108 [facility] Comment on above: Performed By: #### L 500.2500, L100.0100 #### [facility] [address] [place], [address] CO2 [Moles/Vol] 21.0 mmol/L Low 22.0-29.0 [facility] Comment on above: Performed By: #### L 500.2500, L100.0100 #### [facility] [address] [place], [address] Creatinine [Mass/Vol] 0.70 mg/dL Normal 0.70-1.20 [facility] Comment on above: Performed By: #### L 500.2500, L100.0100 #### [facility] [address] [place], [address] ECRCL 48.49 ml/min Low 50-250 [facility] Comment on above: Performed By: #### L 500.2500, L100.0100 #### [facility] [address] [place], [address] GFR/1.73 sq M.predicted among non-blacks MDRD (S/P/Bld) [Vol rate/Area] 90 mL/min/{1.73_m2} Normal >60 [facility] Comment on above: Result Comment: mL/m in/1.73m2 CKD-EPI Creatinine Equation (2020) Performed By: #### L 500.2500, L100.0100 #### [facility] [address] [place], [address] Glucose [Mass/Vol] 90 mg/dL Normal 70-99 [facility] Comment on above: Performed By: #### L 500.2500, L100.0100 #### [facility] [address] [place], [address] Potassium [Moles/Vol] 4.2 mmol/L Normal 3.3-5.1 [facility] Comment on above: Performed By: #### L 500.2500, L100.0100 #### [facility] [address] [place], [address] Sodium [Moles/Vol] 139 mmol/L Normal 133-145 [facility] Comment on above: Performed By: #### L 500.2500, L100.0100 #### [facility] [address] [place], [address] Urea nitrogen [Mass/Vol] 24 mg/dL High 4-19 [facility] Comment on above: Performed By: #### L 500.2500, L100.0100 #### [facility] [address] [place], [address] CBC W/Diff, Automatedon 03-0 6-2024 Absolute Lymph 2.21 X10 3/uL Normal 0.83-4.51 [facility] Comment on above: Performed By: #### L 500.2500, L100.0100 #### [facility] [address] [place], [address] Absolute Neut 4.9 X10 3/uL Normal 2.0-7.7 [facility] Comment on above: Performed By: #### L 500.2500, L100.0100 #### [facility] [address] [place], [address] Basophils/100 WBC (Bld) 1.1 % High 0-1 [facility] Comment on above: Performed By: #### L 500.2500, L100.0100 #### [facility] [address] [place], [address] Eosinophils/100 WBC (Bld) 4.5 % Normal 0-5 [facility] Comment on above: Performed By: #### L 500.2500, L100.0100 #### [facility] [address] [place], [address] Erythrocyte distribution width (RBC) [Ratio] 13.6 % Normal 11.6-14.6 [facility] Comment on above: Performed By: #### L 500.2500, L100.0100 #### [facility] [address] [place], [address] Hematocrit (Bld) [Volume fraction] 33.6 % Low 37-47 [facility] Comment on above: Performed By: #### L 500.2500, L100.0100 #### [facility] [address] [place], [address] Hemoglobin (Bld) [Mass/Vol] 11.0 g/dL Low 12.0-15.0 [facility] Comment on above: Performed By: #### L 500.2500, L100.0100 #### [facility] [address] [place], [address] IG% 0.600 Normal 0.0-0.9 [facility] Comment on above: Result Comment: IG% - Immature Granulocytes (promyelocytes, myelocytes and metamyelocytes) > 1% indicates that a LEFT SHIFT is Present. Performed By: #### L 500.2500, L100.0100 #### [facility] [address] [place], [address] Lymphocytes/100 WBC (Bld) 26.2 % Normal 19-41 [facility] Comment on above: Performed By: #### L 500.2500, L100.0100 #### [facility] [address] [place], [address] MCH (RBC) [Entitic mass] 31.2 pg Normal 27.0-32.0 [facility] Comment on above: Performed By: #### L 500.2500, L100.0100 #### [facility] [address] [place], [address] MCHC (RBC) [Mass/Vol] 32.7 g/dL Normal 32-36 [facility] Comment on above: Performed By: #### L 500.2500, L100.0100 #### [facility] [address] [place], [address] MCV (RBC) [Entitic vol] 95.2 fL Normal 81-99 [facility] Comment on above: Performed By: #### L 500.2500, L100.0100 #### [facility] [address] [place], [address] Monocytes/100 WBC (Bld) 10.3 % High 0-10 [facility] Comment on above: Performed By: #### L 500.2500, L100.0100 #### [facility] [address] [place], [address] Neutrophils/100 WBC (Bld) 57.3 % Normal 47-70 [facility] Comment on above: Performed By: #### L 500.2500, L100.0100 #### [facility] [address] [place], [address] Nucleated RBC (Bld) [#/Vol] 0 10*3/uL Normal 0-5 [facility] Comment on above: Performed By: #### L 500.2500, L100.0100 #### [facility] [address] [place], [address] Platelet mean volume (Bld) [Entitic vol] 9.7 fL Normal 6.2-12.0 [facility] Comment on above: Performed By: #### L 500.2500, L100.0100 #### [facility] [address] [place], [address] Platelets (Bld) [#/Vol] 435 10*3/uL Normal 150-450 [facility] Comment on above: Performed By: #### L 500.2500, L100.0100 #### [facility] [address] [place], [address] RBC (Bld) [#/Vol] 3.53 10*6/uL Low 4.2-5.4 [facility] Comment on above: Performed By: #### L 500.2500, L100.0100 #### [facility] [address] [place], [address] RDW SD 47.1 fl High 35.1-43.9 [facility] Comment on above: Performed By: #### L 500.2500, L100.0100 #### [facility] [address] [place], [address] WBC (Bld) [#/Vol] 8.5 10*3/uL Normal 4.4-11.0 [facility] Comment on above: Performed By: #### L 500.2500, L100.0100 #### [facility] [address] [place], [address] Calculated very low density lipoprotein (VLDL) cholesterol measurementOrdered By: Odilon Rodríguez on 05-11-2024 Calculated very low density lipoprotein (VLDL) cholesterol measurement 13 mg/dL 5-40 [facility] VLDL Cholesterol 13 mg/dL 5-40 [facility] Chest PA and Lateralon 05-[address] L[address] [facility] Imaging Services [address] [place] [address] Chest PA and Lateral MR#: [id number] Acct: [id number] Name: BRIANNE COCHRAN Rep #: [id number] : 1945 F 78 From: Ha merchant MD PCP: Dr. Vera Pompa MD Status: ADM IN Study: Chest PA and Lateral Date of Exam: 05/11/24 Exam# [id number] Ordering Dr: Odilon Rodríguez MD PROCEDURE: CHEST PA AND LATERAL REASON FOR EXAM: Bibasilar crackles. TECHNIQUE: PA and lateral chest radiographs were obtained. COMPARISON: Comparison is made with prior study dated November 03, 2023 FINDINGS: Mild cardiomegaly. Bibasilar patchy infiltrates worse on the left side with blunting of the left costophrenic angle. Linear densities in the right mid lung suggestive of atelectasis. Healed right rib fractures. Calcification of the aortic arch. Large hiatal hernia. Almost complete collapse of the L1 vertebrae with prior vertebroplasty. RAD/Chest PA and Lateral IMPRESSION: Patchy bibasilar infiltrates more prominent on the left side with blunting of the left costophrenic angle. Increased markings in the right mid lung. Large hiatal hernia. Reading Location: [id number] CC: Dr. Vera Pompa MD; Dr. Odilon Rodríguez MD Dip Dyer: Signed Normal [facility] LDL calc ser/plasOrdered By: Odilon Rodríguez on 05-11-2024 Cholesterol in LDL [Mass/Vol] 59 mg/dL [facility] Comment on above: Dtzuswuxkc=249-413 m g/dL & Higher Ctvc=162 mg/dL or greater LDL Cholesterol, Calculated 59 mg/dL [facility] Comment on above: Phcxmnfmev=830-935 m g/dL & Higher Wxpc=767 mg/dL or greater Lipid Profileon 05-11-2024 CHOL:HDL 2.40 Normal [facility] Comment on above: Performed By: #### L 500.4100 #### [facility] [address] [place], [address] Cholesterol [Mass/Vol] 124 mg/dL Normal <=200 [facility] Comment on above: Result Comment: Chol esterol level, Desirable <200 mg/dL Borderline high cholesterol 200-239 mg/dL High cholesterol >=240 mg/dL Recommendations of the NCEP Adult Treatment Panel for the following risk-cutoff thresholds for the [place] population. Performed By: #### L 500.4100 #### [facility] [address] [place], [address] Cholesterol in HDL [Mass/Vol] 52 mg/dL Normal [facility] Comment on above: Result Comment: Mita onal Cholesterol Education Program (NCEP) guidelines: <40 mg/dL: Low HDL-cholesterol (major risk factor for CHD) >= 60 mg/dL: High HDL-cholesterol (negative risk factor for CHD) HDL-cholesterol is affected by a number of factors, e.g. smoking, exercise, hormones, sex and age. Performed By: #### L 500.4100 #### [facility] [address] [place], [address] Cholesterol in LDL [Mass/Vol] 59 mg/dL Normal [facility] Comment on above: Result Comment: Bord stjrjv=996-205 mg/dL Higher Ustb=381 mg/dL or greater Performed By: #### L 500.4100 #### [facility] [address] [place], [address] Cholesterol in VLDL [Mass/Vol] 13 mg/dL Normal 5-40 [facility] Comment on above: Performed By: #### L 500.4100 #### [facility] [address] [place], [address] Triglyceride [Mass/Vol] 65 mg/dL Normal [facility] Comment on above: Result Comment: The drugs N-Acetylcysteine and Metamizole may falsely depress this assay. Normal range: <150 mg/dL Borderline High: 150-199 mg/dL High: 200-499 mg/dL Very High: >500 mg/dL Performed By: #### L 500.4100 #### [facility] [address] [place], [address] Screening total cholesterol/ high density lipoprotein (HDL) cholesterol ratioOrdered By: Odilon Rodríguez on 05-11-2024 Cholesterol.total/Choles terol in HDL [Mass ratio] 2.40 {ratio} [facility] Serum or plasma cholesterol in HDL measurement (mass/volume)Ordered By: Odilon Rodríguez on 05-11-2024 Cholesterol in HDL [Mass/Vol] 52 mg/dL >40 [facility] Comment on above: National Cholesterol Education Program (NCEP) guidelines:<40 mg/dL: Low HDL-cholesterol (major risk factor for CHD)>= 60 mg/dL: High HDL-cholesterol (negative risk factor for CHD)HDL-cholesterol is affected by a number of factors, e.g. smoking, exercise, hormones, sex and age. Serum or plasma cholesterol measurement (mass/volume)Ordered By: Odilon Rodríguez on 05-11-2024 Cholesterol [Mass/Vol] 124 mg/dL <201 [facility] Comment on above: Cholesterol level, D esirable <200 mg/dLBorderline high cholesterol 200-239 mg/dLHigh cholesterol >=240 mg/dLRecommendations of the NCEP Adult Treatment Panel for the following risk-cutoff thresholds for the [place] population. Triglycerides measurementOrd ered By: Odilon Rodríguez on 05-11-2024 Triglyceride [Mass/Vol] 65 mg/dL <199 [facility] Comment on above: The drugs N-Acetylcy steine and Metamizole may falsely depress this assay. Normal range: <150 mg/dLBorderline High: 150-199 mg/dLHigh: 200-499 mg/dLVery High: >500 mg/dL Abdomen Single Viewon [address] [facility] Imaging Services [address] [place], [place] [address] Abdomen Single View MR#: [id number] Acct: [id number] Name: BRIANNE COCHRAN [place] Rep #: [id number] : 1945 F 78 From: Luis Peralta MD PCP: Dr. Vera Pompa MD Status: ADM IN Study: Abdomen Single View Date of Exam: 05/10/24 Exam# [id number] Ordering Dr: Odilon Rodríguez MD PROCEDURE: ABDOMEN SINGLE VIEW REASON FOR EXAM: Constipation TECHNIQUE: Single view abdomen. COMPARISON: None FINDINGS: Bowel gas pattern is normal. No evidence of bowel obstruction. Large amount of fecal debris throughout the colon. No suspicious calcifications. Status post vertebral body augmentation at T12. compression screws and intramedullary rods are noted fixing old bilateral intertrochanteric fractures. Osteoporosis. Old fracture deformity of the right superior and inferior pubic rami. RAD/Abdomen Single View IMPRESSION: Large amount of fecal debris throughout the colon consistent with constipation. Other nonacute findings detailed above. Reading Location: [place] [address] CC: Dr. Vera Pompa MD; Dr. Odilon Rodríguez MD Dip Dyer: Signed Normal [facility] Basic Metabolic Profile (BMP )on 05-10-2024 Anion gap [Moles/Vol] 12 mmol/L Normal 5-15 [facility] Comment on above: Performed By: #### L 501.5200, L501.2300 #### [facility] [address] [place], [address] BUN/CRE 41.5 RATIO High 10-20 [facility] Comment on above: Performed By: #### L 501.5200, L501.2300 #### [facility] [address] [place], [address] Calcium [Mass/Vol] 9.0 mg/dL Normal 7.6-11.0 [facility] Comment on above: Performed By: #### L 501.5200, L501.2300 #### [facility] [address] [place], [address] Chloride [Moles/Vol] 104 mmol/L Normal 96-108 [facility] Comment on above: Performed By: #### L 501.5200, L501.2300 #### [facility] [address] [place], [address] CO2 [Moles/Vol] 23.6 mmol/L Normal 22.0-29.0 [facility] Comment on above: Performed By: #### L 501.5200, L501.2300 #### [facility] [address] [place], [address] Creatinine [Mass/Vol] 0.6 mg/dL Normal 0.6-1.0 [facility] Comment on above: Performed By: #### L 501.5200, L501.2300 #### [facility] [address] [place], [address] ECRCL 47.90 ml/min Normal [facility] Comment on above: Performed By: #### L 501.5200, L501.2300 #### [facility] [address] [place], [address] GFR/1.73 sq M.predicted among non-blacks MDRD (S/P/Bld) [Vol rate/Area] 94 mL/min/{1.73_m2} Normal >60 [facility] Comment on above: Result Comment: mL/m in/1.73m2 CKD-EPI Creatinine Equation (2020) Performed By: #### L 501.5200, L501.2300 #### [facility] [address] [place], [address] Glucose [Mass/Vol] 92 mg/dL Normal 70-99 [facility] Comment on above: Performed By: #### L 501.5200, L501.2300 #### [facility] [address] [place], [address] Potassium [Moles/Vol] 4.6 mmol/L Normal 3.3-5.1 [facility] Comment on above: Performed By: #### L 501.5200, L501.2300 #### [facility] [address] [place], [address] Sodium [Moles/Vol] 140 mmol/L Normal 133-145 [facility] Comment on above: Performed By: #### L 501.5200, L501.2300 #### [facility] [address] [place], [address] Urea nitrogen [Mass/Vol] 23 mg/dL High 4-19 [facility] Comment on above: Performed By: #### L 501.5200, L501.2300 #### [facility] [address] [place], [address] CBC W/Diff, Automatedon - Absolute Lymph 2.19 X10 3/uL Normal 0.83-4.51 [facility] Comment on above: Performed By: #### L 501.5200, L501.2300 #### [facility] [address] [place], [address] Absolute Neut 4.6 X10 3/uL Normal 2.0-7.7 [facility] Comment on above: Performed By: #### L 501.5200, L501.2300 #### [facility] [address] [place], [address] Basophils/100 WBC (Bld) 0.7 % Normal 0-1 [facility] Comment on above: Performed By: #### L 501.5200, L501.2300 #### [facility] [address] [place], [address] Eosinophils/100 WBC (Bld) 6.4 % High 0-5 [facility] Comment on above: Performed By: #### L 501.5200, L501.2300 #### [facility] [address] [place], [address] Erythrocyte distribution width (RBC) [Ratio] 12.9 % Normal 11.6-14.6 [facility] Comment on above: Performed By: #### L 501.5200, L501.2300 #### [facility] [address] [place], [address] Hematocrit (Bld) [Volume fraction] 37.2 % Normal 37-47 [facility] Comment on above: Performed By: #### L 501.5200, L501.2300 #### [facility] [address] [place], [address] Hemoglobin (Bld) [Mass/Vol] 12.0 g/dL Normal 12.0-15.0 [facility] Comment on above: Performed By: #### L 501.5200, L501.2300 #### [facility] [address] [place], [address] IG% 0.200 Normal 0.0-0.9 [facility] Comment on above: Result Comment: IG% - Immature Granulocytes (promyelocytes, myelocytes and metamyelocytes) > 1% indicates that a LEFT SHIFT is Present. Performed By: #### L 501.5200, L501.2300 #### [facility] [address] [place], [address] Lymphocytes/100 WBC (Bld) 26.9 % Normal 19-41 [facility] Comment on above: Performed By: #### L 501.5200, L501.2300 #### [facility] [address] [place], [address] MCH (RBC) [Entitic mass] 30.6 pg Normal 27.0-32.0 [facility] Comment on above: Performed By: #### L 501.5200, L501.2300 #### [facility] [address] [place], [address] MCHC (RBC) [Mass/Vol] 32.3 g/dL Normal 32-36 [facility] Comment on above: Performed By: #### L 501.5200, L501.2300 #### [facility] [address] [place], [address] MCV (RBC) [Entitic vol] 94.9 fL Normal 81-99 [facility] Comment on above: Performed By: #### L 501.5200, L501.2300 #### [facility] [address] [place], [address] Monocytes/100 WBC (Bld) 8.7 % Normal 0-10 [facility] Comment on above: Performed By: #### L 501.5200, L501.2300 #### [facility] [address] [place], [address] Neutrophils/100 WBC (Bld) 57.1 % Normal 47-70 [facility] Comment on above: Performed By: #### L 501.5200, L501.2300 #### [facility] [address] [place], [address] Nucleated RBC (Bld) [#/Vol] 0 10*3/uL Normal 0-5 [facility] Comment on above: Performed By: #### L 501.0, L501.2300 #### [facility] [address] [place], [address] Platelet mean volume (Bld) [Entitic vol] 10.1 fL Normal 6.2-12.0 [facility] Comment on above: Performed By: #### L 501.0, L501.2300 #### [facility] [address] [place], [address] Platelets (Bld) [#/Vol] 304 10*3/uL Normal 150-450 [facility] Comment on above: Performed By: #### L 501.0, L501.2300 #### [facility] [address] [place], [address] RBC (Bld) [#/Vol] 3.92 10*6/uL Low 4.2-5.4 [facility] Comment on above: Performed By: #### L 501.5200, L501.2300 #### [facility] [address] [place], [address] RDW SD 44.9 fl High 35.1-43.9 [facility] Comment on above: Performed By: #### L 501.5200, L501.2300 #### [facility] [address] [place], [address] WBC (Bld) [#/Vol] 8.1 10*3/uL Normal 4.4-11.0 [facility] Comment on above: Performed By: #### L 501.5200, L501.2300 #### [facility] [address] [place], [address] CNPNon 05-10-2024 CNPN Telephone ([facility]AGCL[facility]) BRIANNE COCHRAN ([id number]) 1945 F Date Time Provider Department 05/10/24 [facility] During your visit today, we recorded the following information about you: Yancy Alonso RN 05/10/2024 9:27 AM Signed [place] nurse from [facility] [phone] called in regards to patiens brace. Verified per last hospital note patient was to wear TLSO for comfort. Verified with them she had a 6 week follow up visit with xray's. Verified time, date and location with them. She was thankful and understanding. Encouraged them to call with further questions or concerns. 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 - gabapentin (NEURONTIN) 100 mg capsule Take 1 capsule by mouth every 8 hours for 14 days. - lidocaine (SALONPAS) 4 % patch Apply 1 Patch as directed once daily. - methocarbamol (ROBAXIN) 500 mg tablet Take 1 tablet by mouth three times a day as needed for up to 14 days. - polyethylene glycol 3350 17 gram packet Take 1 Packet by mouth once daily. Dissolve dose in 4 - 8 ounces of liquid and take as directed. - oxyCODONE IR (ROXICODONE) 5 mg immediate release tablet Take 1 tablet by mouth every 6 hours as needed for pain for up to 1 day. - levothyroxine (SYNTHROID) 100 mcg tablet Take 1 tablet by mouth once daily. - levothyroxine (SYNTHROID) 100 mcg tablet Take 1 tablet by mouth once daily. Take on empty stomach - alendronate (FOSAMAX) 70 mg tablet Take 1 tablet by mouth one time a week. - omeprazole (PRILOSEC) 20 mg capsule Take 1 capsule by mouth daily before breakfast. 1/2 hr before meal. - atorvastatin (LIPITOR) 20 mg tablet Take 1 tablet by mouth once daily. - FLUoxetine (PROZAC) 40 mg capsule Take 1 capsule by mouth once daily. - meclizine 25 mg chewable tablet(s) CHEW AND SWALLOW 1 TABLET THREE TIMES DAILY NEEDED FOR DIZZINESS - FLUoxetine (PROZAC) 40 mg capsule Take 1 capsule by mouth once daily. - senna-docusate (SENNA-S) 8.6-50 mg per tablet Take 1 tablet by mouth twice daily. - triamcinolone (KENALOG) 0.025 % ointment Apply [...] once daily. 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] 06/11/2013 Hyperlipidemia, mixed [E78.2] 03/12/2020 Multiple rib fractures involving four or more r*05/06/2024 Fall [W19.XXXA] 05/06/2024 Multiple closed fractures of ribs of both sides*05/06/2024 Closed wedge compression fracture of T12 verteb*05/06/2024 Acute pain due to trauma [G89.11] 05/07/2024 Acute respiratory insufficiency [R06.89] 05/07/2024 Closed wedge compression fracture of T11 verteb*05/08/2024 Trauma [T14.90XA] 05/08/2024 Syncope and collapse [R55] 05/08/2024 Encounter Status:Closed by YANCY ALONSO on 05/10/24 Normal [facility] Basic metabolic 2000 panelon 05-09-2024 Anion gap [Moles/Vol] 12 mmol/L Normal 8-15 [facility] Comment on above: Order Comment: Speci men Type: BLOOD SPECIMENOrdering Facility: [facility] Address: [address] [place] [address] Performed By: #### 2 4321-2, 31966-6 ####[facility] LABORATORYCLIA [id number] [place] [address] [place] Calcium [Mass/Vol] 9.2 mg/dL Normal 8.5-10.2 [facility] Comment on above: Order Comment: Speci men Type: BLOOD SPECIMENOrdering Facility: [facility] Address: [address] [place] [address] Performed By: #### 2 4322, ####[facility] LABORATORYCLIA [id number] [place] [address] [place] Chloride [Moles/Vol] 108 mmol/L High 98-107 [facility] Comment on above: Order Comment: Speci men Type: BLOOD SPECIMENOrdering Facility: [facility] Address: [address] [place] [address] Performed By: #### 2 432-2, ####[facility] LABORATORYCLIA [id number] [place] [id number] [employer] [place] CO2 [Moles/Vol] 23 mmol/L Normal 22-30 [facility] Comment on above: Order Comment: Speci men Type: BLOOD SPECIMENOrdering Facility: [facility] Address: [address] [place] [address] Performed By: #### 2 4320-04, ####[facility] LABORATORYCLIA [id number] [address] [place] Creatinine [Mass/Vol] 0.59 mg/dL Normal 0.58-0.96 [facility] Comment on above: Order Comment: Speci men Type: BLOOD SPECIMENOrdering Facility: [facility] Address: [address] [place] [address] Performed By: #### 2 4320-04, ####[facility] LABORATORYCLIA [id number] [address] Creatinine and Glomerular filtration rate.predicted panel (S/P/Bld) 94 mL/min/1.73m??? Normal >=60 [facility] Comment on above: Order Comment: Speci men Type: BLOOD SPECIMENOrdering Facility: [facility] Address: [address] [place] [address] Result Comment: Reema mated Glomerular Filtration Rate (eGFR) is calculated using the 2020 CKD-EPI creatinine equation. This equation utilizes serum creatinine, sex, and age as parameters. The creatinine assay has traceable calibration to isotope dilution-mass spectrometry. Refer to KDIGO guidelines for clinical interpretation. In patients with unstable renal function, e.g. those with acute kidney injury, the eGFR may not accurately reflect actual GFR. Performed By: #### 2 4320-04, ####[facility] LABORATORYCLIA [id number] [place] [address] [place] Glucose [Mass/Vol] 104 mg/dL High 74-99 [facility] Comment on above: Order Comment: Speci men Type: BLOOD SPECIMENOrdering Facility: [facility] Address: [address] [place] [address] Result Comment: The [place] Diabetes Association (ADA) provides guidance for cutoff values for fasting glucose and random glucose. The ADA defines fasting as no caloric intake for at least 8 hours. Fasting plasma glucose results between 100 to 125 mg/dL indicate increased risk for diabetes (prediabetes). Fasting plasma glucose results greater than or equal to 126 mg/dL meet the criteria for diagnosis of diabetes. In the absence of unequivocal hyperglycemia, results should be confirmed by repeat testing. In a patient with classic symptoms of hyperglycemia or hyperglycemic crisis, random plasma glucose results greater than or equal to 200 mg/dL meet the criteria for diagnosis of diabetes. Reference: Standards of Medical Care in Diabetes 2016, [place] Diabetes Association. Diabetes Care. 2016.39(Suppl 1). Performed By: #### 2 4320-04, ####[facility] LABORATORYCLIA [id number] [place] [address] [place] Potassium [Moles/Vol] 4.6 mmol/L Normal 3.7-5.1 [facility] Comment on above: Order Comment: Glendy lizama Type: BLOOD SPECIMENOrdering Facility: [facility] Address: [address] [id number] Performed By: #### 2 4320-04, ####[facility] LABORATORYCLIA [id number] [place] [address] [place] Sodium [Moles/Vol] 143 mmol/L Normal 136-144 [facility] Comment on above: Order Comment: Madaii men Type: BLOOD SPECIMENOrdering Facility: [facility] Address: [address] [place] [address] Performed By: #### 2 4321-2, 81271-4 ####[facility] LABORATORYCLIA [id number] [place] [id number] [place] [facility] Urea nitrogen [Mass/Vol] 23 mg/dL High 7-21 [facility] Comment on above: Order Comment: Speci men Type: BLOOD SPECIMENOrdering Facility: [facility] Address: [address] [place] [address] Performed By: #### 2 4321-2, ####[facility] LABORATORYCLIA [id number] [address] [place] CBC panel Auto (Bld)on 05-09 Erythrocyte distribution width (RBC) [Ratio] 12.9 % Normal 11.5-15.0 [facility] Comment on above: Order Comment: Speci men Type: BLOOD SPECIMENOrdering Facility: [facility] Address: [address] [place] [address] Performed By: #### 5 8410-2 ####[facility] LABORATORYCLIA [id number] [address] OF [facility] Hematocrit (Bld) [Volume fraction] 37.8 % Normal 36.0-46.0 [facility] Comment on above: Order Comment: Speci men Type: BLOOD SPECIMENOrdering Facility: [facility] Address: [address] [place] [address] Performed By: #### 5 8410-2 ####[facility] LABORATORYCLIA [id number] [address] [place] Hemoglobin (Bld) [Mass/Vol] 12.2 g/dL Normal 11.5-15.5 [facility] Comment on above: Order Comment: Speci men Type: BLOOD SPECIMENOrdering Facility: [facility] Address: [address] [place] [address] Performed By: #### 5 8410-2 ####[facility] LABORATORYCLIA [id number] [address] MCH (RBC) [Entitic mass] 30.6 pg Normal 26.0-34.0 [facility] Comment on above: Order Comment: Speci men Type: BLOOD SPECIMENOrdering Facility: [facility] Address: [address] [place] [address] Performed By: #### 5 8410-2 ####[facility] LABORATORYCLIA [id number] [address] [place] MCHC (RBC) [Mass/Vol] 32.3 g/dL Normal 30.5-36.0 [facility] Comment on above: Order Comment: Speci men Type: BLOOD SPECIMENOrdering Facility: [facility] Address: [address] [place] [address] Performed By: #### 5 8410-2 ####[facility] LABORATORYCLIA [id number] [address] MCV (RBC) [Entitic vol] 94.7 fL Normal 80.0-100.0 [facility] Comment on above: Order Comment: Speci men Type: BLOOD SPECIMENOrdering Facility: [facility] Address: [address] [place] [address] Performed By: #### 5 8410-2 ####[facility] LABORATORYCLIA [id number] [address] Nucleated RBC (Bld) [#/Vol] 10*3/uL Normal <0.01 [facility] Comment on above: Order Comment: Speci men Type: BLOOD SPECIMENOrdering Facility: [facility] Address: [address] [place] [address] Performed By: #### 5 8410-2 ####[facility] LABORATORYCLIA [id number] [address] Platelet mean volume (Bld) [Entitic vol] 10.0 fL Normal 9.0-12.7 [facility] Comment on above: Order Comment: Speci men Type: BLOOD SPECIMENOrdering Facility: [facility] Address: [address] [place], [place] [address] Performed By: #### 5 8410-2 ####[facility] LABORATORYCLIA [id number] [address] Platelets (Bld) [#/Vol] 295 10*3/uL Normal 150-400 [facility] Comment on above: Order Comment: Speci men Type: BLOOD SPECIMENOrdering Facility: [facility] Address: [address] [place] [address] Performed By: #### 5 8410-2 ####[facility] LABORATORYCLIA [id number] [address] RBC (Bld) [#/Vol] 3.99 10*6/uL Normal 3.90-5.20 [facility] Comment on above: Order Comment: Speci men Type: BLOOD SPECIMENOrdering Facility: [facility] Address: [address] [place] [address] Performed By: #### 5 8410-2 ####[facility] LABORATORYCLIA [id number] [address] WBC (Bld) [#/Vol] 8.68 10*3/uL Normal 3.70-11.00 [facility] Comment on above: Order Comment: Speci men Type: BLOOD SPECIMENOrdering Facility: [facility] Address: [address] [place] [address] Performed By: #### 5 8410-2 ####[facility] LABORATORYCLIA [id number] [address] CNDSon 05-09-2024 CNDS HNO ID: [id number] Author: SILVINO JONES MD Service: General Surgery Author Type: Nurse Practitioner Type: Discharge Summary Filed: 05/10/2024 09:27 Note Text: Attestation signed by Silvino Jones MD at 05/10/2024 9:27 AM Attending Note I discussed with resident. The patient was not examined by the attending. I reviewed the resident's note. I agree with the resident's assessment and plan unless otherwise noted. Signature: Silvino Jones MD Date: 05/10/2024. Time: 9:27 AM DISCHARGE SUMMARY PATIENT NAME: Brianne Cochran Code Status: Full Code Highest Readmission Risk Score: 10 The 30 day readmissions risk score is derived from an internally validated risk model which evaluates patient level characteristics, utilization history, medication orders and lab results up until the day of discharge. Patients with a score of 39 or above are considered highest risk for readmission. Specific patient level drivers will be listed at the bottom of the summary. Admission Information Admission Information ADMIT DATE: 05/05/2024 DISCHARGE DATE: 05/09/2024 MY DOCTORS AND MEDICAL TEAM: My Main Hospital Doctor: Silvino Jones MD Primary Care Provider: Vera Pompa MD My Medical Team Members: Treatment Team: Attending Provider: Silvino Jones MD MY CONDITION AT DISCHARGE: Stable REASON I WAS IN THE HOSPITAL: For evaluation and treatment of injuries sustained from a fall. SUMMARY OF WHAT HAPPENED WHILE I WAS IN THE HOSPITAL: Patient was admitted to the intensive care unit under the trauma surgery service at [facility] on 05/05/2024 after sustaining a ground level fall. Her workup would reveal the following listed traumatic injuries: Traumatic Injuries: 1. Nondisplaced posterior 10th AND 11th right rib fractures 2. Nondisplaced lateral 4th-8th left rib fractures 3. Severe compression fracture of T11 Neurosurgery was consulted to help manage her spine fracture. Ultimately all of her injuries were treated conservatively with non-operative management. She was given a TLSO back brace to wear whenever she is out of bed. She was given as needed pain medication. A repeat chest x-ray was completed on 05/06 and was stable. She was evaluated by physical therapy who recommended placement at a correction facility. She was deemed medically stable for discharge to a correction facility on 05/09/2024. She will require follow up with neurosurgery and her primary care provider after hospital discharge. OTHER PROBLEMS/DIAGNOSIS: Principal Problem: Multiple fractures of ribs, bilateral, initial encounter for closed fracture Active Problems: Hypothyroidism Fall Closed wedge compression fracture of T12 vertebra (HCC) Acute pain due to trauma Acute respiratory insufficiency Closed wedge compression fracture of T11 vertebra with routine healing Trauma Syncope and collapse Resolved Problems: * No resolved hospital problems. * OPERATIONS PERFORMED WHILE IN THE HOSPITAL: None IMPORTANT TEST/PROCEDURES: No procedures performed TEST RESULTS NOT AVAILABLE AT THIS TIME: No pending results Discharge Disposition Discharge Disposition: Retirement Facility - Less than 30 Days Activity When You Leave the Hospital Do not bend over at the waist to lift heavy objects May walk with a walker No prolonged bedrest, longer than 8 hours in a 24 hour period Other: Please continue wearing your back brace whenever you are out of bed. Diet Instructions Avoid Alcohol Drink 6 to 8 glasses of fluids per day Resume your pre-hospital diet For Pain When You Leave the Hospital Apply a covered cold pack to the area If you become constipated, you may use any xpeh-dwj-vbmpmdf treatment such as Milk of Magnesia, Sennakot, Prune Juice, Suppositories, etc. in addition to the stool softener/fiber supplement Keep area at rest and elevate it to reduce pain and swelling No alcohol or driving while on pain medication Use acetaminophen (Tylenol) as recommended on the bottle Use the dispensed medication (see prescription) You should use an vrqp-huy-jpeebgu stool softener (Docusate sodium) and/or a fiber supplement (Metamucil, Fiber Con) every day while taking prescribed pain medication Call Your Doctor If Other: Please call your doctor or return to the ED if you develop any new or worsening numbness, tingling, burning, or weakness in your arms, hands, legs, or feet. You have difficulty urinating or pain when urinating You have lightheadedness, fainting, or confusion You have pain and swelling in your legs, especially if it is only on one side and not the other You have pain with urination, cloudy urine or foul smelling urine You have persistent nausea/vomiting over 24 hours You have persistent or heavy bleeding You (more content not included)... Normal [facility] Magnesium SerPl-mCncon 05-09 Magnesium [Mass/Vol] 1.9 mg/dL Normal 1.7-2.3 [facility] Comment on above: Order Comment: Speci men Type: BLOOD SPECIMENOrdering Facility: [facility] Address: [address] [place] [address] Performed By: #### 2 4321-2, 00920-6 ####[facility] LABORATORYCLIA [id number] [place] [address] [facility] THERAPY NTon 05-09-2024 THERAPY NT HNO ID: [id number] Author: PRISCA MARSHALL PT Service: Physical Therapy Author Type: Sanitation Director Type: Therapy (PT/OT/Speech/Resp) Filed: 05/09/2024 16:23 Note Text: Attestation signed by Prisca Marshall, PT at 05/09/2024 4:23 PM I reviewed and agree with the documentation corresponding to this therapy visit. SIGNATURE: Prisca Marshall, MIGUEL DATE: May 09, 2024 TIME: 4:23 PM Physical Therapy Treatment Summary SERVICE DATE: 05/09/2024 SERVICE TIME: 1008 to 0223 ROOM: [place] [address] PT 6 Clicks Score: 15 DISCHARGE RECOMMENDATIONS Subacute/SNF Recommended Discharge Disposition Due to: Functional deficits requiring ongoing therapy service prior to discharge home., Functional status decline, Requires multiple therapy disciplines ASSESSMENT Response to Therapy Interventions: Good Participation in Activities Patient with improved mobility this session. Patient with increased gait distances this session. Patient requiring up to moderate assist to mobilize this session. Patient continues to be recommended for subacute/SNF to improve strength, balance, endurance, increased ambulation distances with normalize gait pattern, and increased independence with functional task performance/mobility to prior level of function. Additional personnel present during visit: Jeanette Ko PRECAUTIONS Bed/Chair Alarm, Fall Risk, Lines/Tubes/Drains, Brace CURRENT HOSPITAL COURSE presented to ED after fall--found to have chronic T11, 12 compression fxs and R rib 10-11 fx, L rib 4-8 fx; TLSO for comfort Relevant Past Medical History: adjustment d/o, migraines, L hip fx s/p fixation; does report fall last month HOME LIVING Patient Lives With: Spouse Assistance Available: Part-Time Entry To Home: Stairs Tub/Shower Type: walk in shower Equipment Owned: Walker- Wheeled, Cane PRIOR FUNCTIONAL LEVEL Required Assistance, History of Falls Assistance Required With: Cleaning, Laundry, Meals, Shopping, Transportation pt ambulates with wh walker at baseline; reports fairl indep with self care, but spouse occasionally assists with LB dressing. Spouse provides transportation SUBJECTIVE agreeable to PT/mobility THERAPY DIAGNOSIS Reduced mobility-other, Muscle Weakness (generalized), Unsteadiness on feet, Abnormalities of gait and mobility-other TREATMENT INTERVENTIONS Therapeutic Exercise (99257), Therapeutic Activity (63277) Therapeutic Exercise (33285) Treatment Minutes: 14 $ Therapeutic Exercise (35905) Billed Units: 1 unit Patient completed BLE AROM (ankle pump, quad set, gluteal set, heel slide, hip abd/add to neutral, short arc quad, hip adductor squeeze) rib mobilization shoulder shrugs, rolls, retraction, shoulder elevated with hands clasped in front of body x 10 reps with cuing/set up amount of assist. Therapeutic Activity (35296) Treatment Minutes: 11 $ Therapeutic Activity (83661) Billed Units: 1 unit cuing/assist with rolling, scooting, log roll technique, transfer to/from various surface, standing balance with hand washing, and short distance gait training. Positioned for comfort at end of session. Timed Code Treatment (minutes): 25 Skilled Treatment Time (minutes): 25 TRAINING AND EDUCATION PROVIDED Assistive Device Use, Bed Mobility, Exercise Program, Gait Pattern, Reduction of Deviations, Positioning, Precautions/Restricti ons, Transfers THERAPEUTIC SKILLS USED Cues for Sequencing/Proper Technique for Activity, Cuing Tactile, Cuing Verbal, Cuing Visual, Movement Facilitation, Physical Assist, Postural Alignment Correction FUNCTIONAL STATUS mobility performed during session in bold, other mobility completed during prior session and may no longer be correct or appropriate to complete. Bed Mobility Rolling: Moderate Assistance assist with trunk/LE to roll to right Supine To Sit: Maximal Assistance, Additional Information via log roll technique, cuing for proper movements--assist with trunk/LEs Scooting: Minimal Assistance Transfers Sit To Stand: Minimal Assistance, Additional Information cuing to scoot forward, proper UE support, powering up with LEs Stand To Sit: Minimal Assistance, Additional Information cuing/assist to square up to seated surface, proper UE support, assist with eccentric control Bed to Chair Minimal Assistance Bed To Chair Transfer Type: Stepping Bed To Chair Transfer Equipment: Gait Belt, Wheeled Walker Gait Minimal Assistance, Additional Information cuing for proper posture, step length, walker management, object negotiation, safety with turning Gait Device: Wheeled Walker General Deviations/Observatio ns: Antalgic gait, [place] decreased, Difficulty changing direction/turning, Narrow Base of Support, Non-functional gait speed, Step lengt (more content not included)... Normal [facility] Basic metabolic 2000 panelon 05-08-2024 Anion gap [Moles/Vol] 10 mmol/L Normal 8-15 [facility] Comment on above: Order Comment: Speci men Type: BLOOD SPECIMENOrdering Facility: [facility] Address: [address] [place] [address] Performed By: #### 1 9123-9, 02918-9 ####[facility] LABORATORYCLIA [id number] [place] [address] [place] Calcium [Mass/Vol] 8.9 mg/dL Normal 8.5-10.2 [facility] Comment on above: Order Comment: Speci men Type: BLOOD SPECIMENOrdering Facility: [facility] Address: [address] [place] [address] Performed By: #### 1 9123-9, 86059-5 ####[facility] LABORATORYCLIA [id number] [address] OF [facility] Chloride [Moles/Vol] 102 mmol/L Normal 98-107 [facility] Comment on above: Order Comment: Speci men Type: BLOOD SPECIMENOrdering Facility: [facility] Address: [address] [place] [address] Performed By: #### 1 9123-9, 01231-0 ####[facility] LABORATORYCLIA [id number] [place] [id number] [facility] CO2 [Moles/Vol] 26 mmol/L Normal 22-30 [facility] Comment on above: Order Comment: Speci men Type: BLOOD SPECIMENOrdering Facility: [facility] Address: [address] [place] [address] Performed By: #### 1 9123-9, 51434-7 ####[facility] LABORATORYCLIA [id number] [address] OF [facility] Creatinine [Mass/Vol] 0.69 mg/dL Normal 0.58-0.96 [facility] Comment on above: Order Comment: Speci men Type: BLOOD SPECIMENOrdering Facility: [facility] Address: [address] [place] [address] Performed By: #### 1 9123-9, 53024-8 ####[facility] LABORATORYCLIA [id number] [address] Creatinine and Glomerular filtration rate.predicted panel (S/P/Bld) 90 mL/min/1.73m??? Normal >=60 [facility] Comment on above: Order Comment: Speci men Type: BLOOD SPECIMENOrdering Facility: [facility] Address: [address] [place] [address] Result Comment: Reema mated Glomerular Filtration Rate (eGFR) is calculated using the 2020 CKD-EPI creatinine equation. This equation utilizes serum creatinine, sex, and age as parameters. The creatinine assay has traceable calibration to isotope dilution-mass spectrometry. Refer to KDIGO guidelines for clinical interpretation. In patients with unstable renal function, e.g. those with acute kidney injury, the eGFR may not accurately reflect actual GFR. Performed By: #### 1 9123-9, 08882-7 ####[facility] LABORATORYCLIA [id number] [place] [address] [place] Glucose [Mass/Vol] 120 mg/dL High 74-99 [facility] Comment on above: Order Comment: Speci men Type: BLOOD SPECIMENOrdering Facility: [facility] Address: [address] [place] [address] Result Comment: The [place] Diabetes Association (ADA) provides guidance for cutoff values for fasting glucose and random glucose. The ADA defines fasting as no caloric intake for at least 8 hours. Fasting plasma glucose results between 100 to 125 mg/dL indicate increased risk for diabetes (prediabetes). Fasting plasma glucose results greater than or equal to 126 mg/dL meet the criteria for diagnosis of diabetes. In the absence of unequivocal hyperglycemia, results should be confirmed by repeat testing. In a patient with classic symptoms of hyperglycemia or hyperglycemic crisis, random plasma glucose results greater than or equal to 200 mg/dL meet the criteria for diagnosis of diabetes. Reference: Standards of Medical Care in Diabetes 2016, [place] Diabetes Association. Diabetes Care. 2016.39(Suppl 1). Performed By: #### 1 9123-9, 00726-9 ####[facility] LABORATORYCLIA [id number] [place] [address] [place] Potassium [Moles/Vol] 4.2 mmol/L Normal 3.7-5.1 [facility] Comment on above: Order Comment: Speci men Type: BLOOD SPECIMENOrdering Facility: [facility] Address: [address] [place] [address] Performed By: #### 1 91239, 40721-1 ####[facility] LABORATORYCLIA [id number] [place] [id number] [place] Sodium [Moles/Vol] 138 mmol/L Normal 136-144 [facility] Comment on above: Order Comment: Speci men Type: BLOOD SPECIMENOrdering Facility: [facility] Address: [address] [place] [address] Performed By: #### 1 91239, 50187-8 ####[facility] LABORATORYCLIA [id number] [address] [place] Urea nitrogen [Mass/Vol] 26 mg/dL High 7-21 [facility] Comment on above: Order Comment: Speci men Type: BLOOD SPECIMENOrdering Facility: [facility] Address: [address] [place] [address] Performed By: #### 1 9123-9, 06811-7 ####[facility] LABORATORYCLIA [id number] [address] OF [facility] CASE MANAGEMon 05-08-2024 CASE MANAGEM HNO ID: [id number] Author: MYRTLE PICKENS, ? Service: ? Author Type: ? Type: Care Mgt Progress Note Filed: 05/08/2024 14:26 Note Text: [facility] PRECERT NOTE [employer] MEDICARE PPO approved [facility] Facility for [facility]. Precert approved through 05/14. For any additional questions regarding approvals, transport or care management needs, please contact the CM assigned to this patient in the Treatment Team. SIGNATURE: Myrtle Pickens DATE: May 08, 2024 TIME: 2:25 PM Normal [facility] CBC panel Auto (Bld)on 05-08 Erythrocyte distribution width (RBC) [Ratio] 12.9 % Normal 11.5-15.0 [facility] Comment on above: Order Comment: Speci dl Type: BLOOD SPECIMENOrdering Facility: [facility] Address: [address] [place] [address] Performed By: #### 5 8410-2 ####[facility] LABORATORYCLIA [id number] [address] STATES OF [facility] Hematocrit (Bld) [Volume fraction] 42.6 % Normal 36.0-46.0 [facility] Comment on above: Order Comment: Speci men Type: BLOOD SPECIMENOrdering Facility: [facility] Address: [address] [place] [address] Performed By: #### 5 8410-2 ####[facility] LABORATORYCLIA [id number] [place] [address] [place] Hemoglobin (Bld) [Mass/Vol] 13.4 g/dL Normal 11.5-15.5 [facility] Comment on above: Order Comment: Speci men Type: BLOOD SPECIMENOrdering Facility: [facility] Address: [address] [place] [address] Performed By: #### 5 8410-2 ####[facility] LABORATORYCLIA [id number] [address] STATES OF [facility] MCH (RBC) [Entitic mass] 30.6 pg Normal 26.0-34.0 [facility] Comment on above: Order Comment: Speci men Type: BLOOD SPECIMENOrdering Facility: [facility] Address: [address] [place] [address] Performed By: #### 5 8410-2 ####[facility] LABORATORYCLIA [id number] [address] [place] MCHC (RBC) [Mass/Vol] 31.5 g/dL Normal 30.5-36.0 [facility] Comment on above: Order Comment: Speci men Type: BLOOD SPECIMENOrdering Facility: [facility] Address: [address] [place] [address] Performed By: #### 5 8410-2 ####[facility] LABORATORYCLIA [id number] [address] [place] MCV (RBC) [Entitic vol] 97.3 fL Normal 80.0-100.0 [facility] Comment on above: Order Comment: Speci men Type: BLOOD SPECIMENOrdering Facility: [facility] Address: [address] [place] [address] Performed By: #### 5 8410-2 ####[facility] LABORATORYCLIA [id number] [address] Nucleated RBC (Bld) [#/Vol] 10*3/uL Normal <0.01 [facility] Comment on above: Order Comment: Speci men Type: BLOOD SPECIMENOrdering Facility: [facility] Address: [address] [place] [address] Performed By: #### 5 8410-2 ####[facility] LABORATORYCLIA [id number] [place] [address] [place] Platelet mean volume (Bld) [Entitic vol] 9.9 fL Normal 9.0-12.7 [facility] Comment on above: Order Comment: Speci men Type: BLOOD SPECIMENOrdering Facility: [facility] Address: [address] [place] [address] Performed By: #### 5 8410-2 ####[facility] LABORATORYCLIA [id number] [place] [address] [place] Platelets (Bld) [#/Vol] 289 10*3/uL Normal 150-400 [facility] Comment on above: Order Comment: Speci men Type: BLOOD SPECIMENOrdering Facility: [facility] Address: [address] [place] [address] Performed By: #### 5 8410-2 ####[facility] LABORATORYCLIA [id number] [place] [address] [place] RBC (Bld) [#/Vol] 4.38 10*6/uL Normal 3.90-5.20 [facility] Comment on above: Order Comment: Speci men Type: BLOOD SPECIMENOrdering Facility: [facility] Address: [address] [place] [address] Performed By: #### 5 8410-2 ####[facility] LABORATORYCLIA [id number] [place] [address] [place] WBC (Bld) [#/Vol] 9.93 10*3/uL Normal 3.70-11.00 [facility] Comment on above: Order Comment: Speci men Type: BLOOD SPECIMENOrdering Facility: [facility] Address: [address] [place] [address] Performed By: #### 5 8410-2 ####[facility] LABORATORYCLIA [id number] [address] [place] CONSULTon 05-08-2024 CONSULT HNO ID: [id number] Author: SHANNAN BREEN MD Service: General Surgery Author Type: Resident Type: Consults Filed: 05/14/2024 22:29 Note Text: Attestation signed by Shannan Breen MD at 05/14/2024 10:29 PM Patient was seen and evaluated by myself on this day May 08, 2024. I agree with the presented documentation unless specifically noted. SIGNATURE: Shannan Breen MD PATIENT NAME: Brianne Cochran DATE: May 14, 2024 TIME: 10:28 PM Pager: [phone] CONSULT: CHEST WALL SERVICE SERVICE DATE: 05/08/2024 SERVICE TIME: 12:55 PM ASSESSMENT AND PLAN: Active Hospital Problems Diagnosis Date Noted Multiple fractures of ribs, bilateral, initial encounter for closed fracture 05/06/2024 Closed wedge compression fracture of T11 vertebra with routine healing 05/08/2024 Trauma 05/08/2024 Syncope and collapse 05/08/2024 Acute pain due to trauma 05/07/2024 Acute respiratory insufficiency 05/07/2024 Fall 05/06/2024 Closed wedge compression fracture of T12 vertebra (HCC) 05/06/2024 Hypothyroidism 03/16/2005 Brianne Cochran is a 78 year old female with a history of migraines, , and L hip fracture s/p repair, here as a trauma transfer from [place] after GLF at home on 05/05/2024. Her traumatic injuries include right rib 10-11 fractures, left rib 4-5-6-7-8 fractures, and a T11 compression fracture. She is being evaluated for the appropriateness of rib plating. Indications: Fracture locations: R CC A L P P RIB P P L A CC L 1 2 3 4 S 5 S 6 S 7 S 8 S 9 S 10 S: simple; W: wedge; C: complex *: offset: <10% cross-sectional overlap : displaced: no cross-sectional overlap (The above table may get intermittent updates to reflect the most accurate fracture pattern possible by using updated imaging or operating room findings.) Flail Chest: No Flail Segment: No Three or more fractures with > 50% displacement: No Currently Intubated: No If YES, failure to wean thought to be 2/2 rib fractures: No IF NO, Pulmonary derangements: RR >20: No Best IS: 400 IS < 50% predicted (chart below): Yes Pain with Inspiration > 5/10: Yes Poor Cough: Yes > 2 Pulmonary derangements: Yes Instability or clicking: No Hemothorax: No Pneumothorax: No If YES to either of the above, chest tube present: No Evidence of diaphragmatic injury: No Vit D Level on admission: 99.9 RibScore: 2 Ni BC, Julian B, Renata M, Flavioo J, [place] RT, Biffl W, Maikel J, Sagew CC, Pritchett C, Sellers C, Wilson EE, Kristin GJ, Jean FM. RibScore: A novel radiographic score based on fracture pattern that predicts pneumonia, respiratory failure, and tracheostomy. J Trauma Acute Care Surg. 2016 Mar;80(1):95-101. doi: 10.1097/TA.[id number] 356427. PMID: 43327066. One point for each of the following: six or more ribs fractured, bilateral fractures, flail chest, three or more severely (bicortical) displaced fractures, first rib fracture, and at least one fracture in each of the three anatomic areas. RFF Index: 14.6 (for supplemental O2, osteoarthritis) Zbigniew J, Nichol BJ, Britney EB, Paula L, Snehal M, David DA, Pa YOUNG. Rib Fracture Frailty Index: A risk stratification tool for geriatric patients with multiple rib fractures. J Trauma Acute Care Surg. 2020Feb 11;91(6):932-939. doi: 10.1097/TA.[id number] 969773. PMID: 68936650. Contraindications: Shock: No Severe TBI: No Acute [place]: No Relative Contraindications: Existing injuries that take precedence (spine, abdomen, vascular, pelvis): No Age < 18: No Significant comorbidities: No Unstable spine: No Empyema: No History of chest wall radiation: No Mild/Moderate TBI: No Critical decision points noted in red. Final recommendation based on above: rib plating is not indicated at this time. Patient has multiple rib fractures with decreased capacity on incentive spirometry, but her ribs are not significantly displaced and her supplemental O2 requirement is minimal at 2L currently. She does not have flail chest, pneumo/hemothorax, or diaphragmatic injury. Her RFF score is 14.6, placing her at the medium frailty risk category; however, this score was the result of her being on supplemental O2 and her history of osteoarthritis. Weaning her off O2 would be sufficient for her to drop into the low risk category. At this time I recommend continuing aggressive pulmonary hygiene and mobility with weaning of O2 as able as well as continuing multi-modal pain control. SIGNATURE: Duane Ramon MD PATIENT NAME: Brianne Cochran DATE: May 08, 2024 TIME: 12:54 PM Pager: [phone] Subjective Brianne Cochran is a 78 year old female with a history of migraines, , and L hip fracture (more content not included)... Normal [facility] ECHO LIMITEDon 05-08-2024 ECHO LIMITED Echocardiography Report: [facility] Date of service: 05/08/2024 10:10:[facility] Ordering physician: DAVID HOROWITZ Indication: Sustained atrial fibrillation Technologist: Radha Gilliam [facility] Interpreting physician: Forrest Coleman MD PATIENT: Name: MRS. BRIANNE COCHRAN : 1945 Age: 78 years Gender: F Primary rhythm: sinus. Height: 152.40 cm BSA: 1.62 m Weight: 61.69 kg BMI: 26.6 kg/m Heart rate 95 bpm Blood pressure 153/91 mmHg Technically difficult exam due to suboptimal positioning and bandages/chest tubes/wound. Color Doppler was utilized to interrogate the cardiac valves assessed and spectral Doppler was utilized to determine the flow velocities and pressure gradients reported in this exam. Myocardial strain analysis was performed in this exam to aid in the assessment of cardiac function. MEASUREMENTS: Value Indexed Normal Max aortic dimension 3.3 cm Ao < 3.8 LV ID (diastole) 4.1 cm (2D) 2.56 cm/m LV ID (systole) 2.5 cm (2D) 1.52 cm/m IVS, leaflet tips 0.9 cm (2D) Posterior wall thickness 1.0 cm (2D) Left ventricular mass 117 g (2D) 72 g/m Global peak long strain -18.3 % Ejection Fraction 75 % (visual est.) EF > 54 FINDINGS: LEFT VENTRICLE There is mild upper septal left ventricular hypertrophy. Left ventricular systolic function is hyperdynamic globally. Global LV myocardial strain is normal. Left ventricular diastolic function was not evaluated due to inconsistent or technically suboptimal data. Mitral annular lateral E/e': 9.7. Mitral annular septal E/e': 11.1. Wall Motion: All scored segments are normal. RIGHT VENTRICLE The right ventricle is normal in size. Right ventricular systolic function is normal. RV systolic tissue Doppler velocity is 18.0 cm/s. Estimated right ventricular systolic pressure is 27 mmHg consistent with normal pulmonary artery pressures. Estimated right atrial pressure is 3 mmHg based on IVC assessment. LEFT ATRIUM Unable to reliably measure LA volume due to technical limitations. RIGHT ATRIUM The right atrial cavity is normal in size. Inferior Vena Cava: The inferior vena cava appears normal measuring 1.5 cm. The vessel decreases greater than 50 percent with inspiration. MITRAL VALVE There is trace mitral valve regurgitation. There is no thickening. The pressure half time is 43 msec. The peak mitral E/A ratio is 0.66. The average mitral E/e' ratio is 10.4. The mitral flow deceleration time is 147 msec. TRICUSPID VALVE There is mild (1+) tricuspid valve regurgitation. There is no thickening. AORTIC VALVE Tricuspid aortic valve. There is no thickening. The peak gradient is 6 mmHg (peak velocity = 125.2 cm/s). The mean gradient is 3 mmHg. The LVOT mean velocity is 82.9 cm/s. The aortic VTI is 15.6 cm. The mean velocity in the aortic valve is 82.9 cm/s. The dimensionless valve index is 1.29. PULMONIC VALVE The pulmonic valve was not seen or not interrogated. AORTA The visualized aorta is normal in size. Measurements - Sinus: 3.3 cm. Sinotubular junction 2.4 cm. PERICARDIUM There is a trivial pericardial effusion. CONCLUSIONS: - Technically difficult exam due to suboptimal positioning and bandages/chest tubes/wound. - Exam indication: Sustained atrial fibrillation - There is mild upper septal left ventricular hypertrophy. Left ventricular systolic function is hyperdynamic. EF = 75 5% (visual est.) Left ventricular diastolic function was not evaluated due to inconsistent or technically suboptimal data. - The right ventricle is normal in size. Right ventricular systolic function is normal. -Resting LVOT gradient 9mmHg (93bpm), pt unable to valsalva. Gradient due to hyperdynamic LV. - Exam was compared with the prior OUTSIDE echocardiographic exam performed on 03/19/2016(RICHARD). * * * Final * * * CC [employer] Image : [id number] amicsSISUID Normal [facility] Magnesium SerPl-mCncon 05-08 Magnesium [Mass/Vol] 2.1 mg/dL Normal 1.7-2.3 [facility] Comment on above: Order Comment: Speci men Type: BLOOD SPECIMENOrdering Facility: [facility] Address: [address] [place] [address] Performed By: #### 1 9123-9, 29447-1 ####[facility] LABORATORYCLIA [id number] [address] [place] THERAPY NTon 05-08-2024 THERAPY NT HNO ID: [id number] Author: PRISCA MARSHALL PT Service: Physical Therapy Author Type: Physical Therapist Type: Therapy (PT/OT/Speech/Resp) Filed: 05/08/2024 14:00 Note Text: Physical Therapy Treatment Summary SERVICE DATE: 05/08/2024 SERVICE TIME: 1314 to 1331 ROOM: [place] [address] PT 6 Clicks Score: 12 DISCHARGE RECOMMENDATIONS Subacute/SNF Recommended Discharge Disposition Due to: Functional deficits requiring ongoing therapy service prior to discharge home., Functional status decline, Requires multiple therapy disciplines ASSESSMENT Response to Therapy Interventions: Good Participation in Activities, Pain, Low Activity Tolerance, Multiple Ongoing Medical Issues pt able to ambulate arounnd bed and get set up in recliner; family present and eager for visit PRECAUTIONS Bed/Chair Alarm, Fall Risk, Lines/Tubes/Drains, Brace CURRENT HOSPITAL COURSE presented to ED after fall--found to have chronic T11, 12 compression fxs and R rib 10-11 fx, L rib 4-8 fx; TLSO for comfort Relevant Past Medical History: adjustment d/o, migraines, L hip fx s/p fixation; does report fall last month HOME LIVING Patient Lives With: Spouse Assistance Available: Part-Time Entry To Home: Stairs Tub/Shower Type: walk in shower Equipment Owned: Walker- Wheeled, Cane PRIOR FUNCTIONAL LEVEL Required Assistance, History of Falls Assistance Required With: Cleaning, Laundry, Meals, Shopping, Transportation pt ambulates with wh walker at baseline; reports fairl indep with self care, but spouse occasionally assists with LB dressing. Spouse provides transportation SUBJECTIVE agreeable to PT/mobility THERAPY DIAGNOSIS Reduced mobility-other, Muscle Weakness (generalized), Unsteadiness on feet, Abnormalities of gait and mobility-other TREATMENT INTERVENTIONS Therapeutic Activity (03345) Timed Code Treatment (minutes): 17 Skilled Treatment Time (minutes): 17 Therapeutic Activity (53917) Treatment Minutes: 17 $ Therapeutic Activity (19536) Billed Units: 1 unit Cues for log roll technique for bed mobility--needed assist to roll onto side--cues to reach for rail but needed assist to come onto side then cues to bring LEs off bed and push trunk into upright position--needed assist to complete Cues for hand placement and safety with transfers Cues for wheeled walker use and safety TRAINING AND EDUCATION PROVIDED Bed Mobility, Benefits of In-Hospital Mobility, Discharge Planning, Disease Specific Education, Falls Prevention, Role of Physical Therapy, Transfers THERAPEUTIC SKILLS USED Activity Dosing, Assessment of Tolerance Including Vitals Response to Activity, Cues for Sequencing/Proper Technique for Activity, Physical Assist, Movement Facilitation FUNCTIONAL STATUS mobility performed during session in bold, other mobility completed during prior session(s) and may no longer be correct or appropriate to complete. Bed Mobility Rolling: Maximal Assistance, Additional Information cues to reach for bed rail and then needed assist to bring trunk onto side Supine To Sit: Maximal Assistance, Additional Information needed assist to bring LEs off bed and trunk into upright position--via log roll technique Transfers Sit To Stand: Moderate Assistance, Additional Information cues for hand placement and safety Stand To Sit: Minimal Assistance, Additional Information cues for hand placement and safety Bed to Chair Gait Moderate Assistance cues for upright posture and stay close to the walker Gait Device: Wheeled Walker General Deviations/Observatio ns: Antalgic gait, [place] decreased, Flexed trunk posture, Step length decreased Gait Distance (feet): ambulate around bed approx 15 feet Stairs GOALS Transfer Supine to/from Sit with: Contact Guard Assistance (via log roll) Transfer Sit to/from Stand with: Stand By Assistance Ambulate with: Stand By Assistance Distance: 40'x2 Device: Wheeled Walker Goal: sit to/from stand x10 reps SBA Rehab Potential: Good Progress Toward Goals: Progressing slower than expected PLAN PT Frequency: 6 Times Per Week (4-6) Treatment Interventions: Education, Functional Mobility Training, Balance Training, Strengthening SIGNATURE: Prisca Marshall, PT PATIENT NAME: Brianne Cochran DATE: May 08, 2024 TIME: 1:59 PM Normal [facility] Basic metabolic 2000 panelon 05-07-2024 Anion gap [Moles/Vol] 10 mmol/L Normal 8-15 [facility] Comment on above: Order Comment: Speci men Type: BLOOD SPECIMENOrdering Facility: [facility] Address: [address] [place] [address] Performed By: #### 2 432-, ####[facility] LABORATORYCLIA [id number] [place] [address] [place] Calcium [Mass/Vol] 8.7 mg/dL Normal 8.5-10.2 [facility] Comment on above: Order Comment: Speci men Type: BLOOD SPECIMENOrdering Facility: [facility] Address: [address] [place] [address] Performed By: #### 2 4321-, ####[facility] LABORATORYCLIA [id number] [place] [address] [place] Chloride [Moles/Vol] 106 mmol/L Normal 98-107 [facility] Comment on above: Order Comment: Speci men Type: BLOOD SPECIMENOrdering Facility: [facility] Address: [address] [place] [address] Performed By: #### 2 2, ####[facility] LABORATORYCLIA [id number] [address] CO2 [Moles/Vol] 24 mmol/L Normal 22-30 [facility] Comment on above: Order Comment: Speci men Type: BLOOD SPECIMENOrdering Facility: [facility] Address: [address] [place] [address] Performed By: #### 2 4320-04, ####[facility] LABORATORYCLIA [id number] [address] Creatinine [Mass/Vol] 0.65 mg/dL Normal 0.58-0.96 [facility] Comment on above: Order Comment: Speci men Type: BLOOD SPECIMENOrdering Facility: [facility] Address: [address] [place] [address] Performed By: #### 2 4320-04, ####[facility] LABORATORYCLIA [id number] [address] Creatinine and Glomerular filtration rate.predicted panel (S/P/Bld) 91 mL/min/1.73m??? Normal >=60 [facility] Comment on above: Order Comment: Speci men Type: BLOOD SPECIMENOrdering Facility: [facility] Address: [address] [place] [address] Result Comment: Reema mated Glomerular Filtration Rate (eGFR) is calculated using the 2020 CKD-EPI creatinine equation. This equation utilizes serum creatinine, sex, and age as parameters. The creatinine assay has traceable calibration to isotope dilution-mass spectrometry. Refer to KDIGO guidelines for clinical interpretation. In patients with unstable renal function, e.g. those with acute kidney injury, the eGFR may not accurately reflect actual GFR. Performed By: #### 2 4320-04, ####[facility] LABORATORYCLIA [id number] [place] [address] [place] Glucose [Mass/Vol] 117 mg/dL High 74-99 [facility] Comment on above: Order Comment: Glendy lizama Type: BLOOD SPECIMENOrdering Facility: [facility] Address: [address] [place], [place] [id number] Result Comment: The [place] Diabetes Association (ADA) provides guidance for cutoff values for fasting glucose and random glucose. The ADA defines fasting as no caloric intake for at least 8 hours. Fasting plasma glucose results between 100 to 125 mg/dL indicate increased risk for diabetes (prediabetes). Fasting plasma glucose results greater than or equal to 126 mg/dL meet the criteria for diagnosis of diabetes. In the absence of unequivocal hyperglycemia, results should be confirmed by repeat testing. In a patient with classic symptoms of hyperglycemia or hyperglycemic crisis, random plasma glucose results greater than or equal to 200 mg/dL meet the criteria for diagnosis of diabetes. Reference: Standards of Medical Care in Diabetes 2016, [place] Diabetes Association. Diabetes Care. 2016.39(Suppl 1). Performed By: #### 2 43203-15, ####[facility] LABORATORYCLIA [id number] [place] [address] [place] Potassium [Moles/Vol] 4.3 mmol/L Normal 3.7-5.1 [facility] Comment on above: Order Comment: Glendy lizama Type: BLOOD SPECIMENOrdering Facility: [facility] Address: [address] [place] [address] Performed By: #### 2 432 ####[facility] LABORATORYCLIA [id number] [place] [id number] [place] Sodium [Moles/Vol] 140 mmol/L Normal 136-144 [facility] Comment on above: Order Comment: Glendy lizama Type: BLOOD SPECIMENOrdering Facility: [facility] Address: [address] [place], [place] [address] Performed By: #### 2 432 ####[facility] LABORATORYCLIA [id number] [place] [address] [place] Urea nitrogen [Mass/Vol] 17 mg/dL Normal 7-21 [facility] Comment on above: Order Comment: Speci men Type: BLOOD SPECIMENOrdering Facility: [facility] Address: [address] [place] [address] Performed By: #### 2 4321-2, 92429-4 ####[facility]ORATORYCLIA [id number] [place] [address] [place] CBC panel Auto (Bld)on 05-07 Erythrocyte distribution width (RBC) [Ratio] 12.8 % Normal 11.5-15.0 [facility] Comment on above: Order Comment: Speci men Type: BLOOD SPECIMENOrdering Facility: [facility] Address: [address] [place] [address] Performed By: #### 5 8410-2 ####[facility] LABORATORYCLIA [id number] [address] [place] Hematocrit (Bld) [Volume fraction] 38.5 % Normal 36.0-46.0 [facility] Comment on above: Order Comment: Speci men Type: BLOOD SPECIMENOrdering Facility: [facility] Address: [address] [place] [address] Performed By: #### 5 8410-2 ####[facility]ORATORYCLIA [id number] [address] [place] Hemoglobin (Bld) [Mass/Vol] 12.4 g/dL Normal 11.5-15.5 [facility] Comment on above: Order Comment: Speci men Type: BLOOD SPECIMENOrdering Facility: [facility] Address: [address] [place] [address] Performed By: #### 5 8410-2 ####[facility] LABORATORYCLIA [id number] [address] [place] MCH (RBC) [Entitic mass] 30.9 pg Normal 26.0-34.0 [facility] Comment on above: Order Comment: Speci men Type: BLOOD SPECIMENOrdering Facility: [facility] Address: [address] [place] [address] Performed By: #### 5 8410-2 ####[facility] LABORATORYCLIA [id number] [address] MCHC (RBC) [Mass/Vol] 32.2 g/dL Normal 30.5-36.0 [facility] Comment on above: Order Comment: Speci men Type: BLOOD SPECIMENOrdering Facility: [facility] Address: [address] [place] [address] Performed By: #### 5 8410-2 ####[facility]ORATORYCLIA [id number] [address] [place] MCV (RBC) [Entitic vol] 96.0 fL Normal 80.0-100.0 [facility] Comment on above: Order Comment: Speci men Type: BLOOD SPECIMENOrdering Facility: [facility] Address: [address] [place] [address] Performed By: #### 5 8410-2 ####[facility] LABORATORYCLIA [id number] [address] OF [facility] Nucleated RBC (Bld) [#/Vol] 10*3/uL Normal <0.01 [facility] Comment on above: Order Comment: Speci men Type: BLOOD SPECIMENOrdering Facility: [facility] Address: [address] [place] [address] Performed By: #### 5 8410-2 ####[facility] LABORATORYCLIA [id number] [address] [facility] Platelet mean volume (Bld) [Entitic vol] 10.1 fL Normal 9.0-12.7 [facility] Comment on above: Order Comment: Speci men Type: BLOOD SPECIMENOrdering Facility: [facility] Address: [address] [place] [address] Performed By: #### 5 8410-2 ####[facility]ORATORYCLIA [id number] [address] [place] Platelets (Bld) [#/Vol] 302 10*3/uL Normal 150-400 [facility] Comment on above: Order Comment: Speci men Type: BLOOD SPECIMENOrdering Facility: [facility] Address: [address] [place] [address] Performed By: #### 5 8410-2 ####[facility]ORATORYCLIA [id number] [address] OF [facility] RBC (Bld) [#/Vol] 4.01 10*6/uL Normal 3.90-5.20 [facility] Comment on above: Order Comment: Speci men Type: BLOOD SPECIMENOrdering Facility: [facility] Address: [address] [place] [address] Performed By: #### 5 8410-2 ####[facility] LABORATORYCLIA [id number] [address] WBC (Bld) [#/Vol] 10.52 10*3/uL Normal 3.70-11.00 [facility] Comment on above: Order Comment: Speci men Type: BLOOD SPECIMENOrdering Facility: [facility] Address: [address] [place] [address] Performed By: #### 5 8410-2 ####[facility] LABORATORYCLIA [id number] [address] CONSULT PROGon 05-07-2024 CONSULT PROG HNO ID: [id number] Author: CRISSY GODDARD APRN.AUTOMATION ANALYST Service: Neurosurgery Author Type: Nurse Practitioner Type: Consult Progress Note Filed: 05/07/2024 10:33 Note Text: Neurosurgery Progress Note SERVICE DATE: 05/07/2024 SUBJECTIVE: NAEON. Patient denies back pain, endorses bilateral rib pain from fx with movement. OBJECTIVE: Vitals: Temp (24hrs), Av ?C (98.6 ?F), Min:36.8 ?C (98.3 ?F), Max:37.1 ?C (98.8 ?F) BP 127/74 Pulse 85 Temp 37.1 ?C (98.8 ?F) Resp 16 Ht 152.4 cm (5') Wt 59 kg (130 lb) SpO2 93% BMI 25.39 kg/m? O2 Therapy: Nasal Cannula IANDO: MEDICATIONS Current Facility-Administered Medications Medication Dose Route Frequency enoxaparin 30 mg injection (LOVENOX) 30 mg SUBCUTANEOUS q 12 HR methocarbamol 500 mg tab(s) (ROBAXIN) 500 mg ORAL TID PRN acetaminophen 975 mg tab(s) (TYLENOL) 975 mg ORAL q 8 H gabapentin 100 mg cap(s) (NEURONTIN) 100 mg ORAL q 8 H atorvastatin 20 mg tab(s) (LIPITOR) 20 mg ORAL DAILY pantoprazole DR 20 mg tab(s) (PROTONIX) 20 mg ORAL DAILY (6 AM) senna-docusate 8.6-50 mg 1 tablet (SENNA-S) 1 tablet ORAL BID FLUoxetine 40 mg cap(s) (PROzac) 40 mg ORAL DAILY levothyroxine 100 mcg tab(s) (SYNTHROID) 100 mcg ORAL DAILY (6 AM) ipratropium-albuterol 3 mL nebulizer solution (DUONEB) 3 mL INHALATION q 6 H PRN ondansetron 4 mg tab(s) (ZOFRAN) 4 mg ORAL q 6 H PRN Or ondansetron (PF) 4 mg injection (ZOFRAN) 4 mg INTRAVENOUS q 6 H PRN oxyCODONE IR 5-10 mg tab(s) (ROXICODONE) 5-10 mg ORAL q 6 H PRN sodium chloride 0.9 % (flush) 2-10 mL (BD POSIFLUSH) 2-10 mL INTRAVENOUS DIRECTED PRN And perflutren lipid microspheres 1.1 mg/mL 1.3 mL injection (DEFINITY) 1.3 mL INTRAVENOUS DIRECTED PRN lidocaine 4 % 1 Patch (SALONPAS) 1 Patch TRANSDERMAL DAILY And lidocaine patch - REMOVE OTHER AT BEDTIME And lidocaine - VERIFY PATCH OTHER q 8 H polyethylene glycol 3350 17 g packet 17 g ORAL DAILY Labs: Recent Labs 05/07/24 0253 05/06/24 0424 05/06/24 0102 NA 140 139 -- K 4.3 4.2 -- CHLOR 106 104 -- CO2 24 19* -- BUN 17 14 -- CREAT 0.65 0.52* -- GLUC 117* 156* -- ANION 10 16* -- CA 8.7 8.9 -- MG 1.9 1.7 -- P -- 3.3 -- WBC 10.52 8.12 -- HB 12.4 13.0 -- HCT 38.5 39.9 -- PLT 302 308 -- INR -- -- 1.0 Exam: GENERAL: Awake and alert; NAD; cooperative; pleasant NEURO: Orientedx3; speech clear and fluent; FAM; no arm drift STRENGTH: 5/5 BUE, 4/5 BLE HEENT: Normocephalic; atraumatic; perrl/eomi; no facial droop LUNGS: Unlabored breathing CARDIAC: Rate and rhythm as above ABDOMEN: Soft, non-tender, non-distended EXTREMITIES: No deformities, No edema SKIN: Skin color normal; Temperature normal; no rashes or lesions ASSESSMENT AND PLAN: Active Hospital Problems Diagnosis Date Noted Multiple rib fractures involving four or more ribs 05/06/2024 Acute pain due to trauma 05/07/2024 Acute respiratory insufficiency 05/07/2024 Fall 05/06/2024 Closed fracture of multiple ribs of both sides 05/06/2024 Closed wedge compression fracture of T12 vertebra (HCC) 05/06/2024 Hypothyroidism 03/16/2005 Myalgia 03/16/2005 Overview Note: fibromyalgia Ms. Cochran is a 78 y/o female that presents from OSH after a fall who is found to have multiple compression fx, T3, T11 and T12 - neuro as above - MRI C/T/L reviewed, no operative- appear chronic - TLSO for comfort - PT/OT eval and TX - pain management per primary - DVT ppx per primary - UR XR when brace arrives Parts of this note may have been copied from one of my previous notes and remain pertinent. The documentation has been reviewed and edited as necessary to support the clinical decision making for today's visit. SIGNATURE: Crissy Goddard APRN.AUTOMATION ANALYST PATIENT NAME: Brianne Cochran DATE: May 07, 2024 TIME: 10:21 AM Pager: [phone] [facility] Magnesium SerPl-mCncon 05-07 Magnesium [Mass/Vol] 1.9 mg/dL Normal 1.7-2.3 [facility] Comment on above: Order Comment: Speci men Type: BLOOD SPECIMENOrdering Facility: [facility] Address: [address] [place] [address] Performed By: #### 2 4321-2, 04592-7 ####[facility] LAB[facility]ATORYCLIA [id number] [address] STAPHYLOCOCCUS AUREUS AND MR SA SCREEN, PCR, NASALon 05-07-2024 S. aureus and MRSA panel LAVERNE+probe (Nose) Not detected Normal Not Detected [facility] Comment on above: Order Comment: Speci men Type: SWABOrdering Facility: [facility] Address: [address] [place] [address] Performed By: #### S APCR ####[facility] LABORATORYCLIA [id number] [place] [id number] [facility] THERAPY NTon 05-07-2024 THERAPY NT HNO ID: [id number] Author: PRISCA MARSHALL PT Service: Physical Therapy Author Type: Physical Therapist Type: Therapy (PT/OT/Speech/Resp) Filed: 05/07/2024 15:07 Note Text: Physical Therapy Evaluation Summary SERVICE DATE: 05/07/2024 SERVICE TIME: 1421 to 1436 ROOM: [place] [address] PT 6 Clicks Score: 14 DISCHARGE RECOMMENDATIONS Subacute/SNF Recommended Discharge Disposition Due to: Functional deficits requiring ongoing therapy service prior to discharge home., Functional status decline, Requires multiple therapy disciplines ASSESSMENT Response to Therapy Interventions: Good Participation in Activities, Low Activity Tolerance, Multiple Ongoing Medical Issues, Pain PRECAUTIONS Bed/Chair Alarm, Fall Risk, Lines/Tubes/Drains, Brace CURRENT HOSPITAL COURSE presented to ED after fall--found to have chronic T11, 12 compression fxs and R rib 10-11 fx, L rib 4-8 fx; TLSO for comfort Relevant Past Medical History: adjustment d/o, migraines, L hip fx s/p fixation; does report fall last month HOME LIVING Patient Lives With: Spouse Assistance Available: Part-Time Entry To Home: Stairs Tub/Shower Type: walk in shower Equipment Owned: Walker- Wheeled, Cane PRIOR FUNCTIONAL LEVEL Required Assistance, History of Falls Assistance Required With: Cleaning, Laundry, Meals, Shopping, Transportation pt ambulates with wh walker at baseline; reports fairl indep with self care, but spouse occasionally assists with LB dressing. Spouse provides transportation SUBJECTIVE agreeable to PT/mobility THERAPY DIAGNOSIS Reduced mobility-other, Muscle Weakness (generalized), Unsteadiness on feet, Abnormalities of gait and mobility-other TREATMENT INTERVENTIONS Evaluation Skilled Treatment Time (minutes): 15 $ Evaluation-Moderate (11945) Billed Units: 1 unit Cues for log roll technique--needed assist at LEs and trunk to achieve upright at edge of bed Cues for hand placement and safety with transfers Cues for wheeled walker use and upright posture Ambulate around bed and then rest at edge of bed and got recliner set up with alarm TRAINING AND EDUCATION PROVIDED Bed Mobility, Benefits of In-Hospital Mobility, Discharge Planning, Disease Specific Education, Falls Prevention, Home Safety, Role of Physical Therapy, Transfers THERAPEUTIC SKILLS USED Activity Dosing, Assessment of Tolerance Including Vitals Response to Activity, Cues for Sequencing/Proper Technique for Activity, Physical Assist, Movement Facilitation FUNCTIONAL STATUS Bed Mobility Rolling: Maximal Assistance, Additional Information cues to reach across body for railing and needed assist to roll onto side Supine To Sit: Maximal Assistance, Additional Information needed assist at LEs and trunk to achieve upright at EOB Transfers Sit To Stand: Additional Information, Minimal Assistance cues for hand placement and safety Stand To Sit: Minimal Assistance, Additional Information cues to reach back for bed and slowly sit down Bed to Chair Gait Moderate Assistance, Additional Information cues for upright posture and stay close to the walker Gait Device: Wheeled Walker General Deviations/Observatio ns: Antalgic gait, [place] decreased, Flexed trunk posture, Step length decreased Gait Distance (feet): ambulate around bed approx 12 feet Stairs Range of Motion: ROM Limitation Comments ROM Limitation Comments: limited bilat LE AROM in supine Strength: Strength Limitation Comments Strength Limitation Comments: unable to move fully against gravity GOALS Transfer Supine to/from Sit with: Contact Guard Assistance (via log roll) Transfer Sit to/from Stand with: Stand By Assistance Ambulate with: Stand By Assistance Distance: 40'x2 Device: Wheeled Walker Goal: sit to/from stand x10 reps SBA Rehab Potential: Good PLAN PT Frequency: 6 Times Per Week (4-6) Treatment Interventions: Education, Functional Mobility Training, Balance Training, Strengthening SIGNATURE: Prisca Marshall PT PATIENT NAME: Brianne Cochran DATE: May 07, 2024 TIME: 3:04 PM [facility] THERAPY NT HNO ID: [id number] Author: FRANCISCO J NAVARRO, OTR/L Service: Occupational Therapy Author Type: Occupational Therapist Type: Therapy (PT/OT/Speech/Resp) Filed: 05/07/2024 15:05 Note Text: Occupational Therapy Evaluation Summary SERVICE DATE: 05/07/2024 SERVICE TIME: 1437 to 1452 ROOM: [place] [address] OT 6 Clicks Score: 14 DISCHARGE RECOMMENDATIONS Subacute/SNF Recommended Discharge Disposition Due to: ADL impairment, Functional deficits requiring ongoing therapy service prior to discharge home., Functional status decline, Requires multiple therapy disciplines ASSESSMENT Response to Therapy Interventions: Good Participation in Activities, Pain Instructed in spine protection strategies during ADLs to maintain BLT precautions. Allowed time for teach-back. Needs ongoing education Provided instruction, cuing and facilitation for lower body dressing via figure-4 technique. Allowed time for patient to simulate but unable to complete. Would benefit from trial of AD. Facilitated transfer to bedside chair. Takes small, shuffling steps and requires min assist overall to maintain safety. Will continue to progress as able. Will benefit from placement at discharge to maximize safety/independence. PRECAUTIONS Bed/Chair Alarm, Fall Risk, Lines/Tubes/Drains, Brace CURRENT HOSPITAL COURSE presented to ED after fall--found to have chronic T11, 12 compression fxs and R rib 10-11 fx, L rib 4-8 fx; TLSO for comfort Relevant Past Medical History: adjustment d/o, migraines, L hip fx s/p fixation; does report fall last month HOME LIVING Patient Lives With: Spouse Assistance Available: Part-Time Entry To Home: Stairs Tub/Shower Type: walk in shower Equipment Owned: Walker- Wheeled, Cane PRIOR FUNCTIONAL LEVEL Required Assistance, History of Falls Assistance Required With: Cleaning, Laundry, Meals, Shopping, Transportation pt ambulates with wh walker at baseline; reports fairl indep with self care, but spouse occasionally assists with LB dressing. Spouse provides transportation Baseline Cognition: Oriented to self, Oriented to place, Oriented to time SUBJECTIVE awake, agreeable to OT session COGNITION Orientation Deficits: Not oriented to Time Responsiveness: Alert, Awake Follows Commands: 2-step Commands, Cueing Needed Cueing to Follow Commands: Minimum Attention Deficits: Divided Executive Function Deficits: Safety Awareness, Insight to Deficits THERAPY DIAGNOSIS Reduced mobility-other, Decreased activities of daily living (ADL), Muscle Weakness (generalized) TREATMENT INTERVENTIONS Evaluation Skilled Treatment Time (minutes): 15 $ Evaluation - Moderate (63889) Billed Units: 1 unit TRAINING AND EDUCATION PROVIDED Role of Occupational Therapy, Expected Functional Level, Discharge Planning, Lower Extremity Dressing, Lower Extremity Bathing, Safety/Judgment, Precautions/Restricti ons, Sling/Brace Management THERAPEUTIC SKILLS USED Activity Dosing, Cues for Sequencing/Proper Technique for Activity, Physical Assist, Therapeutic Use of Self, Movement Facilitation, Cuing Verbal FUNCTIONAL STATUS Activities of Daily Living Assist Level Additional Information Feeding Set Up Grooming Minimal Assistance Bathing Upper Body Moderate Assistance Bathing Lower Body Maximal Assistance Dressing Upper Body Moderate Assistance Dressing Lower Body Maximal Assistance, Additional Information unable to complete figure 4 technique. May benefit from AD next session Toileting Maximal Assistance Mobility Assist Level Additional Information Bed Mobility Sit to Stand Minimal Assistance Stand to Sit Minimal Assistance Bed to Chair Minimal Assistance Bed To Chair Transfer Type: Stepping Bed To Chair Transfer Equipment: Wheeled Walker Toilet/Commode Shower Functional Mobility Minimal Assistance Functional Mobility Device: Wheeled Walker Range of Motion: Functional ROM Within Precautions Strength: Strength Limitation Comments Strength Limitation Comments: 4-/5 throughout Vision Deficits: Wears Corrective Lenses GOALS Upper Body Bathing with: Contact Guard Assistance Upper Body Dressing with: Contact Guard Assistance Lower Body Bathing with: Moderate Assistance Lower Body Dressing with: Moderate Assistance Toilet Hygiene with: Minimal Assistance Toilet Transfer with: Minimal Assistance Tolerate (minutes of functional activity): 20 Functional Activity with: Minimal Assistance Demonstrate Competence with Education with: Verbal Cues Only (spine precautions, brace management) Rehab Potential: Fair PLAN OT Frequency: 2 Times Per Week Treatment Interventions: Education, Self Care/Home Management, Functional Mobility Training SIGNATURE: MELINDA Johnson PATIENT NAME: Brianne Cochran DATE: May 07, 2024 TIME: 3:03 PM [facility] THERAPY NT HNO ID: [id number] Author: PRISCA MARSHALL PT Service: Physical Therapy Author Type: Physical Therapist Type: Therapy (PT/OT/Speech/Resp) Filed: 05/07/2024 11:38 Note Text: PHYSICAL THERAPY MISSED VISIT SERVICE DATE: 05/07/2024 SERVICE TIME: 836 ROOM: [place] [address] Patient not seen due to Clinical Appropriateness (brace has not arrived yet). SIGNATURE: Prisca Marshall, PT PATIENT NAME: Brianne Cochran DATE: May 07, 2024 TIME: 9:00 AM PHYSICAL THERAPY MISSED VISIT SERVICE DATE: 05/07/2024 SERVICE TIME: 1134 ROOM: [place] [address] Patient not seen due to Test / Procedure. SIGNATURE: Prisca Marshall PT PATIENT NAME: Brianne Cochran DATE: May 07, 2024 TIME: 11:38 AM [facility] XR THORACO LUMBAR JNCT 2V AP /LATon 05-07-2024 XR THORACO LUMBAR JNCT 2V AP/LAT * * *Final Report* * * DATE OF EXAM: May 07 2024 11:58AM AKX [id number] - XR THORACO LUMBAR JNCT 2V AP/LAT / PROCEDURE REASON: Suspected fracture * * * * Physician Interpretation * * * * EXAMINATION: XR THORACO LUMBAR JNCT 2V AP/LAT HISTORY: UPRIGHT IN BRACE IMAGES OBTAINED SITTING Suspected fracture. TECHNIQUE: XR THORACO LUMBAR JNCT 2V AP/LAT Laterality: NOT APPLICABLE Number of different views (projections): 2 M: XB_1 COMPARISON: CT examination of the thoracic spine without contrast dated 05/06/2024. CT examination of the chest without contrast dated 05/05/2024. RESULT: Examination mildly limited, due to technique and patient rotation. Osteopenia. Again demonstrated are severe compression deformities of the T11 and T12 vertebral bodies with vertebral plana as well as postprocedural changes from previous vertebral body augmentation at T12. Previously demonstrated retropulsion of the posterior endplate at T11-T12 not well-visualized on this examination, due to technique. There is associated moderate thoracolumbar kyphosis centered at T11 and T12. Otherwise, vertebral heights are maintained. No discrete significant listhesis. Multilevel age-related degenerative changes of the thoracic and lumbar spine without discrete significant listhesis. Visualized pedicles appear to be intact. Again demonstrated are left-sided acute mildly displaced rib fractures. Again noted is large hiatal hernia. Again demonstrated is prominent amount of fecal material within mildly dilated large bowel loops throughout the abdomen and pelvis. No other significant abnormality. IMPRESSION: Little interval change regarding severe compression deformities of the T11 and T12 vertebral bodies with associated thoracolumbar kyphosis. Findings compatible with constipation again noted. Dip Dyer: REANNA Transcribe Date/Time: May 08 2024 7:46A Dictated by : ANDREI DELUCA MD This examination was interpreted and the report reviewed and electronically signed by: ANDREI DELUCA MD on May 08 2024 7:51AM EST [id number] Normal [facility] 25(OH)D3 SerPl-mCncon 2024 25-hydroxyvitamin D3 [Mass/Vol] 99.9 ng/mL Normal >=30.0 [facility] Comment on above: Order Comment: Speci men Type: BLOOD SPECIMENOrdering Facility: [facility] Address: [address] [place] [address] Result Comment: Clas sification of 25 OH Vitamin D status: Deficiency: <= 20.0 ng/ml. Insufficiency: 21.0-29.0 ng/ml. Sufficiency: >= 30.0 ng/ml. Performed By: #### 1 989-3 ####[facility] LABORATORYCLIA [id number] [address] ALLIED HEALTHon 05-06-2024 ALLIED HEALTH HNO ID: [id number] Author: MARIANNE PHILLIPS RT(R) Service: Radiology Author Type: Technologist Type: Allied Health Filed: 05/06/2024 09:08 Note Text: Radiology Service Progress Note PATIENT NAME: Brianne Cochran DATE OF SERVICE: May 06, 2024 TIME: 9:08 AM PATIENT IDENTITY VERIFICATION COMPLETED USING TWO (2) IDENTIFIERS: Name and Date of confirmed by patient verbally and Name and Date of confirmed by identification band. FALL SCREENING: Has the patient had 2 falls in the last year or 1 fall with injury or currently using an Ambulatory Assistive Device (Walker, Cane, Wheelchair, Crutches, etc.)? Emergency Room Patient: Screened in ED PATIENT GENDER DATA: Assigned female at . status: : No status: NO. PATIENT RELEVANT IMPLANT DATA REVIEWED: Yes PATIENT PRESENTS WITH AN IMPLANTABLE OR ATTACHED QUARTER FOLDER: No RADIOLOGY DEPARTMENT: MR; Exam(s) Completed: Spine: Cervical spine, Thoracic spine, and Lumbar spine PERIPHERAL IV DATA: Not applicable SIGNED BY: RT Landon(R) May 06, 2024 9:08 AM [facility]IED [facility] HNO ID: [id number] Author: JULIO LAEJANDRA RT(R) Service: Radiology Author Type: Technologist Type: Allied Health Filed: 05/06/2024 02:24 Note Text: Radiology Service Progress Note PATIENT NAME: Brianne Cochran DATE OF SERVICE: May 06, 2024 TIME: 2:23 AM PATIENT IDENTITY VERIFICATION COMPLETED USING TWO (2) IDENTIFIERS: Name and Date of confirmed by patient verbally and Name and Date of confirmed by identification band. FALL SCREENING: Has the patient had 2 falls in the last year or 1 fall with injury or currently using an Ambulatory Assistive Device (Walker, Cane, Wheelchair, Crutches, etc.)? Emergency Room Patient: Screened in ED PATIENT GENDER DATA: Assigned female at . status: : No status: NO. PATIENT RELEVANT IMPLANT DATA REVIEWED: Yes PATIENT PRESENTS WITH AN IMPLANTABLE OR ATTACHED QUARTER FOLDER: No RADIOLOGY DEPARTMENT: CT; Exam(s) Completed: Brain and Spine PERIPHERAL IV DATA: Inpatient: see LDA documentation SIGNED BY: RT Emery(R) May 06, 2024 2:23 AM Normal [facility] Amylase SerPl-cCncon 025 Amylase [Catalytic activity/Vol] 137 U/L High 30-104 [facility] Comment on above: Order Comment: Speci men Type: BLOOD SPECIMENOrdering Facility: [facility] Address: [address] [place] [address] Performed By: #### 3 040-3, 1798-8 ####[facility] LABORATORYCLIA [id number] [place] [address] [place] Basic metabolic 2000 panelon 05-06-2024 Anion gap [Moles/Vol] 16 mmol/L High 8-15 [facility] Comment on above: Order Comment: Speci men Type: BLOOD SPECIMENOrdering Facility: [facility] Address: [address] [place] [address] Performed By: #### 2 4321-2, 10471-5, 2777-1 ####[facility] LABORATORYCLIA [id number] [place] [address] [place] Calcium [Mass/Vol] 8.9 mg/dL Normal 8.5-10.2 [facility] Comment on above: Order Comment: Speci men Type: BLOOD SPECIMENOrdering Facility: [facility] Address: [address] [place] [address] Performed By: #### 2 4321-2, , 2776-03 ####[facility] LABORATORYCLIA [id number] [place] [id number] [place] Chloride [Moles/Vol] 104 mmol/L Normal 98-107 [facility] Comment on above: Order Comment: Speci men Type: BLOOD SPECIMENOrdering Facility: [facility] Address: [address] [place] [address] Performed By: #### 2 4321-2, , 2776-03 ####[facility] LABORATORYCLIA [id number] [address] STATES OF [facility] CO2 [Moles/Vol] 19 mmol/L Low 22-30 [facility] Comment on above: Order Comment: Speci men Type: BLOOD SPECIMENOrdering Facility: [facility] Address: [address] [place] [address] Performed By: #### 2 4321-2, , 2776-03 ####[facility] LABORATORYCLIA [id number] [place] [address] [place] Creatinine [Mass/Vol] 0.52 mg/dL Low 0.58-0.96 [facility] Comment on above: Order Comment: Speci men Type: BLOOD SPECIMENOrdering Facility: [facility] Address: [address] [place] [address] Performed By: #### 2 4321-2, , 2776-03 ####[facility] LABORATORYCLIA [id number] [place] [address] [place] Creatinine and Glomerular filtration rate.predicted panel (S/P/Bld) 96 mL/min/1.73m??? Normal >=60 [facility] Comment on above: Order Comment: Glendy lizama Type: BLOOD SPECIMENOrdering Facility: [facility] Address: [address] [place] [address] Result Comment: Reema mated Glomerular Filtration Rate (eGFR) is calculated using the 2020 CKD-EPI creatinine equation. This equation utilizes serum creatinine, sex, and age as parameters. The creatinine assay has traceable calibration to isotope dilution-mass spectrometry. Refer to KDIGO guidelines for clinical interpretation. In patients with unstable renal function, e.g. those with acute kidney injury, the eGFR may not accurately reflect actual GFR. Performed By: #### 2 4321-2, 71815-3, 2776-03 ####[facility] [id number] [place] [address] [place] Glucose [Mass/Vol] 156 mg/dL High 74-99 [facility] Comment on above: Order Comment: Glendy lizama Type: BLOOD SPECIMENOrdering Facility: [facility] Address: [address] [place] [address] Result Comment: The [place] Diabetes Association (ADA) provides guidance for cutoff values for fasting glucose and random glucose. The ADA defines fasting as no caloric intake for at least 8 hours. Fasting plasma glucose results between 100 to 125 mg/dL indicate increased risk for diabetes (prediabetes). Fasting plasma glucose results greater than or equal to 126 mg/dL meet the criteria for diagnosis of diabetes. In the absence of unequivocal hyperglycemia, results should be confirmed by repeat testing. In a patient with classic symptoms of hyperglycemia or hyperglycemic crisis, random plasma glucose results greater than or equal to 200 mg/dL meet the criteria for diagnosis of diabetes. Reference: Standards of Medical Care in Diabetes 2016, [place] Diabetes Association. Diabetes Care. 2016.39(Suppl 1). Performed By: #### 2 4321-2, 04043-5, 277- ####[facility] [id number] [place] [id number] [place] Potassium [Moles/Vol] 4.2 mmol/L Normal 3.7-5.1 [facility] Comment on above: Order Comment: Glendy lizama Type: BLOOD SPECIMENOrdering Facility: [facility] Address: [address] [place] [id number] Performed By: #### 2 4321-2, 49362-5, 2776-03 ####[facility] LABORATORYCLIA [id number] [address] [place] [facility] Sodium [Moles/Vol] 139 mmol/L Normal 136-144 [facility] Comment on above: Order Comment: Speci men Type: BLOOD SPECIMENOrdering Facility: [facility] Address: [address] [place] [address] Performed By: #### 2 4321-2, , 2776-03 ####[facility]ORATORYCLIA [id number] [address] [place] Urea nitrogen [Mass/Vol] 14 mg/dL Normal 7-21 [facility] Comment on above: Order Comment: Speci men Type: BLOOD SPECIMENOrdering Facility: [facility] Address: [address] [place] [address] Performed By: #### 2 4321-2, , 2776-03 ####[facility]ORATORYCLIA [id number] [address] [place] CBC panel Auto (Bld)on 05-06 Erythrocyte distribution width (RBC) [Ratio] 12.6 % Normal 11.5-15.0 [facility] Comment on above: Order Comment: Speci men Type: BLOOD SPECIMENOrdering Facility: [facility] Address: [address] [place] [address] Performed By: #### 5 8410-2 ####[facility] LABORATORYCLIA [id number] [address] [place] Hematocrit (Bld) [Volume fraction] 39.9 % Normal 36.0-46.0 [facility] [facility] Comment on above: Order Comment: Speci men Type: BLOOD SPECIMENOrdering Facility: [facility] Address: [address] [place] [address] Performed By: #### 5 8410-2 ####[facility]ATORYCLIA [id number] [address] [facility] Hemoglobin (Bld) [Mass/Vol] 13.0 g/dL Normal 11.5-15.5 [facility] Comment on above: Order Comment: Speci men Type: BLOOD SPECIMENOrdering Facility: [facility] Address: [address] [place] [address] Performed By: #### 5 8410-2 ####[facility] LABORATORYCLIA [id number] [address] MCH (RBC) [Entitic mass] 30.7 pg Normal 26.0-34.0 [facility] Comment on above: Order Comment: Speci men Type: BLOOD SPECIMENOrdering Facility: [facility] Address: [address] [place] [address] Performed By: #### 5 8410-2 ####[facility] LABORATORYCLIA [id number] [address] MCHC (RBC) [Mass/Vol] 32.6 g/dL Normal 30.5-36.0 [facility] Comment on above: Order Comment: Speci men Type: BLOOD SPECIMENOrdering Facility: [facility] Address: [address] [place] [address] Performed By: #### 5 8410-2 ####[facility] LABORATORYCLIA [id number] [address] MCV (RBC) [Entitic vol] 94.1 fL Normal 80.0-100.0 [facility] Comment on above: Order Comment: Speci men Type: BLOOD SPECIMENOrdering Facility: [facility] Address: [address] [place] [address] Performed By: #### 5 8410-2 ####[facility] LABORATORYCLIA [id number] [address] Nucleated RBC (Bld) [#/Vol] 10*3/uL Normal <0.01 [facility] Comment on above: Order Comment: Speci men Type: BLOOD SPECIMENOrdering Facility: [facility] Address: [address] [place] [address] Performed By: #### 5 8410-2 ####[facility] LABORATORYCLIA [id number] [address] Platelet mean volume (Bld) [Entitic vol] 10.0 fL Normal 9.0-12.7 [facility] Comment on above: Order Comment: Speci men Type: BLOOD SPECIMENOrdering Facility: [facility] Address: [address] [place] [address] Performed By: #### 5 8410-2 ####[facility] LABORATORYCLIA [id number] [address] [place] Platelets (Bld) [#/Vol] 308 10*3/uL Normal 150-400 [facility] Comment on above: Order Comment: Speci men Type: BLOOD SPECIMENOrdering Facility: [facility] Address: [address] [place] [address] Performed By: #### 5 8410-2 ####[facility] LABORATORYCLIA [id number] [address] [place] RBC (Bld) [#/Vol] 4.24 10*6/uL Normal 3.90-5.20 [facility] Comment on above: Order Comment: Speci men Type: BLOOD SPECIMENOrdering Facility: [facility] Address: [address] [place] [address] Performed By: #### 5 8410-2 ####[facility] LABORATORYCLIA [id number] [address] [place] WBC (Bld) [#/Vol] 8.12 10*3/uL Normal 3.70-11.00 [facility] Comment on above: Order Comment: Speci men Type: BLOOD SPECIMENOrdering Facility: [facility] Address: [address] [place] [address] Performed By: #### 5 8410-2 ####[facility] LABORATORYCLIA [id number] [address] CONFIRM BLOOD TYPEon 02-23-2 025 ABO O Normal [facility] Comment on above: Order Comment: Speci men Type: BLOOD SPECIMENOrdering Facility: [facility] Address: [address] [place] [address] Performed By: #### C ONABO ####[facility] BLOOD BANKCLIA [id number] [address] Rh Nom (Bld) Positive Normal [facility] Comment on above: Order Comment: Speci men Type: BLOOD SPECIMENOrdering Facility: [facility] Address: [address] [place] [address] Performed By: #### C ONABO ####[facility] BLOOD BANKCLIA [id number] [address] CONSULTon 05-06-2024 CONSULT HNO ID: [id number] Author: HORACE NOGUERA MD Service: General Surgery Author Type: Physician Type: Consults Filed: 05/06/2024 09:17 Note Text: Surgical ICU Consult Note This note was partially generated using beModel voice recognition system, and there may be some incorrect words, spellings, and punctuation that were not noted in checking the note before saving. SERVICE DATE: 05/06/2024 SERVICE TIME: 1:21 AM REASON: multiple rib fractures REQUESTING PHYSICIAN: Dr. Noguera PRIMARY CARE PHYSICIAN: Vera Pompa MD Subjective HISTORY OF PRESENT ILLNESS: 78 year old female w hx of migraines, L hip fx s/p repair, here as a trauma transfer from [place] after GLF at home, pt does not recall falling, does not recall if she passed out or she hit her head. Denies use of blood thinners GCS at Scene was 14. Minus one for confusion. Complains of pain in chest and tender to touch. CT Chest frm outside facility noticble for biltal rib fractures, T11 fx compression. Neg wrist R imagining, or L forearm imaging. PAST MEDICAL HISTORY Diagnosis Date Adjustment disorder with depressed mood Breast calcifications 12/2016 Depression Iron deficiency anemia, unspecified Lateral sclerosis Migraine headache without aura <=1 per month as of May 2013 Myalgia and myositis, unspecified Osteoarthritis Spastic paresis (HCC) Unspecified hypothyroidism PAST SURGICAL HISTORY Procedure Laterality Date BREAST BIOPSY Left 12/16/2016 [facility]-Dr. Sandhu DELIVERY ONLY , low transverse x 2 HIP SURGERY HX Left 09/08/[address], femur [address] Dr[address] Benson PAST SURGICAL HISTORY OF cyst removed from ovaries FAMILY HISTORY Problem Relation Age of Onset Psychiatry Father Cancer Father lymphoma Headache Father other (HTN) Father Cancer Mother brain mets Psychiatry Mother depression/anxiety Headache Mother other (HTN) Mother Colon Cancer Other none Coronary Artery Disease Other none Breast Cancer Sister Social History Tobacco Use Smoking status: Never Smokeless tobacco: Never Vaping Use Vaping status: Never Used Substance Use Topics Alcohol use: No Drug use: No (Not in a hospital admission) Current Facility-Administered Medications Medication Dose Route Frequency atorvastatin 20 mg tab(s) (LIPITOR) 20 mg ORAL DAILY pantoprazole DR 20 mg tab(s) (PROTONIX) 20 mg ORAL DAILY (6 AM) senna-docusate 8.6-50 mg 1 tablet (SENNA-S) 1 tablet ORAL BID FLUoxetine 40 mg cap(s) (PROzac) 40 mg ORAL DAILY levothyroxine 100 mcg tab(s) (SYNTHROID) 100 mcg ORAL DAILY (6 AM) lactated ringers iv infusion 75 mL/hr INTRAVENOUS CONTINUOUS acetaminophen 975 mg tab(s) (TYLENOL) 975 mg ORAL/FEEDING TUBE q 6 H ipratropium-albuterol 3 mL nebulizer solution (DUONEB) 3 mL INHALATION q 6 H PRN ondansetron 4 mg tab(s) (ZOFRAN) 4 mg ORAL q 6 H PRN Or ondansetron (PF) 4 mg injection (ZOFRAN) 4 mg INTRAVENOUS q 6 H PRN potassium chloride 20-40 mEq oral powder (KLOR-CON) 20-40 mEq ORAL/FEEDING TUBE PRN Or potassium chloride iv piggyback 20 mEq/100 mL 20 mEq INTRAVENOUS PRN magnesium sulfate iv piggyback in sterile water 2 g 50 mL 2 g INTRAVENOUS PRN calcium gluconate iv piggyback 2 g in NaCl (iso-osmotic) 100 mL 2 g INTRAVENOUS PRN(NO DISPENSE) oxyCODONE IR 5-10 mg tab(s) (ROXICODONE) 5-10 mg ORAL q 6 H PRN fentaNYL 50 mcg/mL 25 mcg injection (SUBLIMAZE) 25 mcg INTRAVENOUS q 2 H PRN sodium chloride 0.9 % (flush) 2-10 mL (BD POSIFLUSH) 2-10 mL INTRAVENOUS DIRECTED PRN And perflutren lipid microspheres 1.1 mg/mL 1.3 mL injection (DEFINITY) 1.3 mL INTRAVENOUS DIRECTED PRN ALLERGIES Allergen Reactions Acetaminophen-Codei* Unknown Biaxin [Clarithromy* Unknown Doesn't remember, was a long time ago Codeine unknown-long time ago Naproxen Rash Generalized, nonpruritic Relafen [Nabumetone] Unknown Doesn't remember COMPLETE REVIEW OF SYSTEMS: PAIN ASSESSMENT: . GENERAL: No weight loss, malaise or fevers NECK: Negative for lumps or significant neck swelling RESPIRATORY: Negative for cough, dyspnea or shortness of breath CARDIOVASCULAR: Negative for chest pain or palpitations GI: Negative for nausea or emesis : No history of dysuria, frequency or incontinence MUSCULOSKELETAL: Negative for joint pain or swelling SKIN: Negative for lesions, rash, and itching NEURO: No history of headaches or seizures Objective PHYSICAL EXAM: GENERAL: Alert, no distress, cooperative HEENT: Normocephalic, atraumatic, EOMI NECK: Trachea midline, no JVD SKIN: Color, texture, turgor normal. No rashes or lesions. LUNGS: Normal respiratory rate and effort, on room air CARDIAC: Normal rate, BP as below, good peripheral perfusion, warm extremtities ABDOMEN: soft, non tende,r non distended, no guarding EXTREMITIES: Normal, no deformities, edema, clubbing or skin discoloration. Good capillary refill. NEURO: Sensation grossly in (more content not included)... Normal [facility] CONSULT HNO ID: [id number] Author: LATRELL WOLF PA-C Service: Neurosurgery Author Type: Physician Mutual Fund Accountant Type: Consults Filed: 05/06/2024 01:30 Note Text: Attestation signed by Terrance Benedict MD at 05/06/2024 9:41 AM HANDP reviewed, and I agree with the above. 78F hx T11 burst fracture (seen initially on MRI in 2013), chronic T12 fracture s/p vertebroplasty (unclear timing), who presents after a fall. Her CT shows that her T11 fracture is largely stable compared to 2013, but she does have some slightly worsened kyphosis, likely due to the chronic T12 fracture. MRI T-spine pending. Will likely treat in a TLSO brace. Terrance Benedict MD CONSULT: NEUROSURGERY SERVICE SERVICE DATE: 05/06/2024 SERVICE TIME: 12 REASON FOR CONSULT: Trauma, T11 burst fracture REQUESTING PHYSICIAN: Dr. Bates PRIMARY CARE PHYSICIAN: Vrea Pompa MD Consultation requested by Dr. Horowitz for an opinion regarding T11 burst fracture. My final recommendations will be communicated back to the requesting physician by way of shared Medical record or letter to requesting physician via US mail. Trauma Level: Transfer Mechanism: Fall HISTORY OF PRESENT ILLNESS: Subjective Ms. Cochran is a 78 year old female with PMHx significant for OA, spastic paresis, MDD, JAN, who presents for trauma transfer from [place] after fall. Neurosurgery consulted for T11 burst fracture. Patient poor historian. Was grabbing firewood and twisted and fell, was not using walker at the time. Reports 10 back pain. Prior T12 fracture s/p kyphoplasty. Denies any difficulty with fine motor control. Has reported increasing falls. Antiplatelet/Anticoag ulants: Possible ASA use today, patient unsure Past Medical History: PAST MEDICAL HISTORY Diagnosis Date Adjustment disorder with depressed mood Breast calcifications 12/2016 Depression Iron deficiency anemia, unspecified Lateral sclerosis Migraine headache without aura <=1 per month as of May 2013 Myalgia and myositis, unspecified Osteoarthritis Spastic paresis (HCC) Unspecified hypothyroidism Past Surgical History: PAST SURGICAL HISTORY Procedure Laterality Date BREAST BIOPSY Left 12/16/2016 [facility]-Dr. Sandhu DELIVERY ONLY , low transverse x 2 HIP SURGERY HX Left 09/08/2022 Left, femur fracture. Dr. Benson PAST SURGICAL HISTORY OF cyst removed from ovaries Family History: FAMILY HISTORY Problem Relation Age of Onset Psychiatry Father Cancer Father lymphoma Headache Father other (HTN) Father Cancer Mother brain mets Psychiatry Mother depression/anxiety Headache Mother other (HTN) Mother Colon Cancer Other none Coronary Artery Disease Other none Breast Cancer Sister Social History: Social History Tobacco Use Smoking status: Never Smokeless tobacco: Never Vaping Use Vaping status: Never Used Substance Use Topics Alcohol use: No Drug use: No COMPLETE REVIEW OF SYSTEMS: 10 point ROS negative except as above Objective MEDS: (Not in a hospital admission) Current Facility-Administered Medications Medication Dose Route Frequency atorvastatin 20 mg tab(s) (LIPITOR) 20 mg ORAL DAILY pantoprazole DR 20 mg tab(s) (PROTONIX) 20 mg ORAL DAILY (6 AM) senna-docusate 8.6-50 mg 1 tablet (SENNA-S) 1 tablet ORAL BID FLUoxetine 40 mg cap(s) (PROzac) 40 mg ORAL DAILY levothyroxine 100 mcg tab(s) (SYNTHROID) 100 mcg ORAL DAILY (6 AM) lactated ringers iv infusion 75 mL/hr INTRAVENOUS CONTINUOUS acetaminophen 975 mg tab(s) (TYLENOL) 975 mg ORAL/FEEDING TUBE q 6 H ipratropium-albuterol 3 mL nebulizer solution (DUONEB) 3 mL INHALATION q 6 H PRN ondansetron 4 mg tab(s) (ZOFRAN) 4 mg ORAL q 6 H PRN Or ondansetron (PF) 4 mg injection (ZOFRAN) 4 mg INTRAVENOUS q 6 H PRN potassium chloride 20-40 mEq oral powder (KLOR-CON) 20-40 mEq ORAL/FEEDING TUBE PRN Or potassium chloride iv piggyback 20 mEq/100 mL 20 mEq INTRAVENOUS PRN magnesium sulfate iv piggyback in sterile water 2 g 50 mL 2 g INTRAVENOUS PRN calcium gluconate iv piggyback 2 g in NaCl (iso-osmotic) 100 mL 2 g INTRAVENOUS PRN(NO DISPENSE) oxyCODONE IR 5-10 mg tab(s) (ROXICODONE) 5-10 mg ORAL q 6 H PRN fentaNYL 50 mcg/mL 25 mcg injection (SUBLIMAZE) 25 mcg INTRAVENOUS q 2 H PRN Allergies As of Date: 05/05/2024 Allergen Noted Reaction ACETAMINOPHEN-CODEINE 04/07/2023 Unknown BIAXIN [CLARITHROMYCIN] 03/16/2005 Unknown CODEINE 01/05/2007 NAPROXEN 11/23/2007 Rash RELAFEN [NABUMETONE] 03/16/2005 Unknown Fully Assessed 05/05/2024 ALLERGIES: ALLERGIES Allergen Reactions Acetaminophen-Codei* Unknown Biaxin [Clarithromy* Unknown Doesn't remember, was a long time ago Codeine unknown-long time ago Naproxen Rash Generalized, nonpruritic Relafen [Nabumetone] U (more content not included)... Normal [facility] CT BRAIN WO IVCONon 05-06-19 CT BRAIN WO IVCON * * *Final Report* * * DATE OF EXAM: May 06 2024 2:21AM [facility] 0504 - CT BRAIN WO IVCON / PROCEDURE REASON: Head trauma, moderate-severe * * * * Physician Interpretation * * * * EXAMINATION: CT BRAIN WO IVCON CLINICAL HISTORY: TECHNIQUE: Serial axial images without IV contrast were obtained from the vertex to the foramen magnum. MQ: CTBWO_3 CT Radiation dose: Integrated Dose-Length Product (DLP) for this visit = 1039 mGy*cm CT Dose Reduction Employed: Automated exposure control(AEC) and iterative recon COMPARISON: None. RESULT: Localizer images: Post-operative change: None. Acute change: No evidence of an acute infarct or other acute parenchymal process. Hemorrhage: No evidence of acute intracranial hemorrhage. ECASS hemorrhagic transformation score: Not Applicable Mass Lesion / Mass Effect: There is no evidence of an intracranial mass or extraaxial fluid collection. No significant mass effect. Chronic change: Scattered patchy foci of low attenuation are present within the supratentorial white matter, a nonspecific finding that most commonly represents mild small vessel disease. Incidental mineralization in the bilateral deep quezada nuclei Parenchyma: There is mild to moderate generalized volume loss. The brain parenchyma is otherwise within normal limits for age. Ventricles: Ventricular enlargement concordant with the degree of parenchymal volume loss. Paranasal sinuses and skull base: The visualized paranasal sinuses are grossly clear. The skull base and imaged soft tissues are unremarkable. IMPRESSION: No acute intracranial abnormality. Dip Dyer: REANNA Transcribe Date/Time: May 06 2024 2:38A Dictated by : JACQUELINE FARMER MD This examination was interpreted and the report reviewed and electronically signed by: JACQUELINE FARMER MD on May 06 2024 2:42AM EST [id number] Normal [facility] CT CERVICAL SPINE WO IVCONon 05-06-2024 CT CERVICAL SPINE WO IVCON * * *Final Report* * * DATE OF EXAM: May 06 2024 2:21AM [facility] 0505 - CT CERVICAL SPINE WO IVCON / PROCEDURE REASON: Spine fracture, cervical, pathological * * * * Physician Interpretation * * * * EXAMINATION: CT CERVICAL SPINE WO IVCON CLINICAL HISTORY: Spine fracture, cervical, pathological TECHNIQUE: Spiral, high resolution axial unenhanced images were obtained from the skull base to the cervicothoracic junction with sagittal and coronal planar reconstructions. MQ: CTCSPWO_5 CT Radiation dose: Integrated CT Dose-Length Product (DLP) for this visit = 1039 mGy*cm CT Dose Reduction Employed: Automated exposure control(AEC) and iterative recon COMPARISON: None. RESULT: Counting reference: Craniocervical junction. Anatomic Variants: None. Mold Maker Helper (topogram) images: Alignment: Nonspecific straightening of the normal cervical lordosis. Craniocervical junction: Craniocervical junction is normal. Osseous structures/fracture: No evidence of a lytic or blastic process in the visualized spine. No evidence of acute or chronic fracture. Cervical soft tissues: The paraspinal soft tissues are within normal limits. Degenerative changes: Cervical spine degenerative changes as follows: Some degree of uncovertebral hypertrophy at every level with most significant facet changes at bilateral C3-4, right C4-5, and bilaterally slightly right greater than left C5-6. THIS RESULTS IN MILD TO MODERATE RIGHT, MILD LEFT FORAMINAL STENOSIS AT C3-4 MODERATE RIGHT, MILD TO MODERATE LEFT AT C4-5, AND MILD TO MODERATE LEFT, MILD RIGHT AT C5-6. ADDITIONALLY, LEFT AT C6-7 WITH NO SIGNIFICANT FORAMINAL STENOSIS AT C7-T1 WELL C2-3. Additionally, lordosis straightening in conjunction with discogenic disease including disc space loss with disc bulge and right central calcified protrusion and endplate osteophyte at C3-4, disc space loss with minimal disc bulge at C4-5 as well as C5-6 which also has slight adjacent endplate osteophyte. Minimal disc bulge with disc space loss at C6-7 with no significant discogenic disease at C7-T1. Also, disc space loss with disc bulge at C2-3 THIS RESULTS IN MINIMAL FLATTENING OF THE CERVICAL CORD WITH NO SIGNIFICANT STENOSIS AT C2-3, MILD TO POSSIBLY MILD TO MODERATE CENTRAL CANAL STENOSIS PARTICULARLY ON THE RIGHT AT C3-4, MILD TO AT MOST MILD TO MODERATE CENTRAL CANAL STENOSIS AT C4-5 AND C5-6 WITH AT MOST MILD CENTRAL CANAL STENOSIS AT C6-7. NO SIGNIFICANT CENTRAL CANAL STENOSIS AT C7-T1 OR THE INCLUDED UPPER THORACIC SPINE LEVELS IMPRESSION: No acute fracture or malalignment. Cervical spine degenerative changes with at most mild to moderate central canal stenosis involving C3-4, C4-5 and C5-6 as discussed above. Multilevel foraminal stenosis as discussed above. Anatomic Variant: None. Assume 7 cervical vertebrae with counting from the craniocervical junction. Dip Dyer: REANNA Transcribe Date/Time: May 06 2024 2:24A Dictated by : JACQUELINE FARMER MD This examination was interpreted and the report reviewed and electronically signed by: JACQUELINE FARMER MD on May 06 2024 2:38AM EST [id number] Normal [facility] CT LUMBAR SPINE WO IVCONon 0 05-06-2024 CT LUMBAR SPINE WO IVCON * * *Final Repo rt* * * DATE OF EXAM: May 06 2024 2:26AM [facility] 0508 - CT LUMBAR SPINE WO IVCON / PROCEDURE REASON: Low back pain, trauma * * * * Physician Interpretation * * * * EXAMINATION: CT LUMBAR SPINE WO IVCON CLINICAL HISTORY: Low back pain, trauma TECHNIQUE: Spiral, high resolution axial unenhanced images were obtained from the thoracolumbar junction to the sacrum with sagittal and coronal planar reconstructions. MQ: CTLSPWO_3 CT Radiation dose: Integrated Dose-Length Product (DLP) for this visit = 1068 mGy*cm. CT Dose Reduction Employed: Automated exposure control (AEC) COMPARISON: None. RESULT: Counting reference: Lumbosacral junction. For the purposes of this report, Mold Maker Helper (topogram) images: Alignment: Minimal retrolisthesis of L1 on L2. Bone marrow /fracture: No evidence of a lytic or blastic process in the visualized spine. No evidence of acute or chronic fracture. Paraspinal soft tissues: The paraspinal soft tissues planes are maintained. Lower thoracic spine: The visualized lower thoracic bony canal and foramina are patent. L1-L2: Mild to possibly mild to moderate central canal stenosis secondary to slight retrolisthesis, disc space loss, circumferential disc bulge eccentric right, and suggestion of some degree of overall slight pedicle shortening. No significant foraminal stenosis at this level. L2-L3: No significant central canal or foraminal stenosis. Incidental disc space loss with minimal disc bulge at this level. L3-L4: Mild to at most mild to moderate central canal stenosis related to disc space loss, circumferential disc bulge eccentric right, some degree of pedicle shortening, and facet hypertrophy/arthropat hy with minimal prominence of the ligamentum flavum. No significant foramen stenosis. L4-L5: Moderate to possibly moderate to severe central canal stenosis secondary to disc space loss/circumferential disc bulge, some degree of congenitally shortened pedicles, facet hypertrophy/arthropat hy, and ligamentum flavum thickening/calcificat ion. No significant foramen stenosis at this level. L5-S1: Mild to possibly mild to moderate central canal stenosis secondary to disc space loss, circumferential disc bulge which does come in somewhat close proximity to the bilateral intrathecal S1 nerve so correlation for any associated radiculopathy recommended. Additionally, central canal stenosis is also related to facet hypertrophy/arthropat hy and ligamentum flavum thickening in addition to some degree of overall congenitally shortened pedicles. No significant foramen stenosis. Partially imaged incidental nonspecific bladder wall distention. Sacrum and iliac wings: The visualized sacrum and iliac wings do not have acute fracture within limits of bony demineralization. IMPRESSION: No acute fracture or malalignment. Lumbar spine degenerative changes which are most severe at L4-5 where some degree of congenital pedicle shortening in conjunction with facet disease/ligamentum flavum thickening and disc bulge cause moderate to possibly moderate to severe central canal stenosis. Other incidental findings as above. Anatomic Lumbar Variant: Dip Dyer: PSCThea Transcribe Date/Time: May 06 2024 3:06A Dictated by : JACQUELINE FARMER MD This examination was interpreted and the report reviewed and electronically signed by: JACQUELINE FARMER MD on May 06 2024 3:20AM EST [id number] Normal [facility] CT THORACIC SPINE WO IVCONon 05-06-2024 CT THORACIC SPINE WO IVCON * * *Final Report* * * DATE OF EXAM: May 06 2024 2:26AM [facility] 0514 - CT THORACIC SPINE WO IVCON / PROCEDURE REASON: Spine fracture, thoracic, traumatic * * * * Physician Interpretation * * * * EXAMINATION: CT THORACIC SPINE WO IVCON CLINICAL HISTORY: Spine fracture, thoracic, traumatic TECHNIQUE: Spiral, high resolution unenhanced axial images were obtained from the cervicothoracic junction to the thoracolumbar junction with sagittal and coronal planar reconstructions. MQ: CTTSWO_3 CT Radiation dose: Integrated Dose-Length Product (DLP) for this visit = 1068 mGy*cm. CT Dose Reduction Employed: Automated exposure control (AEC) COMPARISON: MRI thoracic spine January 2013. RESULT: Counting reference: Cervicothoracic and lumbosacral junctions. Assume first thoracic rib is the T1 level. For the purposes of this report, Mold Maker Helper (topogram) images: Alignment: Intervally increased focal kyphosis at T11 and T12 from 2013 comparison Bone marrow / fracture: T11 compression fracture with vertebra plana morphology is similar in appearance to 2013 comparison as is similar appearance of somewhat extensive retropulsion causing moderate to possibly moderate to severe effacement of the central canal. New from 2013 compression fracture at T12 with near vertebral plana morphology as well as previous kyphoplasty which also has somewhat significant retropulsion which measures approximately 8 mm. This also results in moderate to severe effacement of the central canal best seen on image 248 series 3. Also, T3 compression fracture was present on 2013 exam and has similar morphology. Otherwise, no acute thoracic spine fracture. Right T11 and T12 chronic rib fractures. Incidental nonspecific T7 rounded subcentimeter sclerotic focus within the vertebral body. Image 46 series 7. Thoracic paraspinal soft tissues: Scattered atelectasis of the included lung myers as well as incidental small to moderate hiatal hernia. Some degree of nonsevere incidental coronary artery calcification. Additionally, incidental cholelithiasis with some degree of slight nonspecific distention of the partially included gallbladder. Incidental punctate left calyceal renal calcification. Degenerative change: Multilevel age-related degenerative changes of the thoracic spine with multilevel disc space loss, and discogenic disease with multilevel minimal disc bulges and/or protrusions. No significant central canal stenosis related to degenerative discogenic disease and/or facet disease. No severe foraminal stenosis. IMPRESSION: No acute thoracic spine fracture. T11 and T3 fractures were present on 2013 exam and have unchanged appearance. This includes unchanged retropulsion at T11 which causes moderate to possibly moderate to severe central canal effacement. Focal kyphosis at T11 and T12 has intervally increased from 2013 comparison. Any degree of associated cord compression can be further evaluated with ordered MRI. T12 fracture is new from 2013 but has kyphoplasty. This also causes moderate to possibly moderate to severe central canal effacement secondary to retropulsion from near vertebral plana morphology. Other relevant incidental findings as above Anatomic Thoracic/Lumbar Variant: Dip Dyer: REANNA Transcribe Date/Time: May 06 2024 2:42A Dictated by : JACQUELINE FARMER MD This examination was interpreted and the report reviewed and electronically signed by: JACQUELINE FARMER MD on May 06 2024 3:06AM EST [id number] Normal [facility] Calcium.ionized [Moles/Vol]o n 05-06-2024 Calcium.ionized (BldV) [Mass/Vol] 1.15 mmol/L Normal 1.08-1.30 [facility] Comment on above: Order Comment: Speci men Type: BLOOD SPECIMENOrdering Facility: [facility] Address: [address] [place] [address] Performed By: #### 1 995-0 ####[facility] [id number] [address] [place] [facility] Calcium.ionized adjusted to pH 7.4 (Bld) [Moles/Vol] 1.12 mmol/L Normal 1.08-1.30 [facility] Comment on above: Order Comment: Speci men Type: BLOOD SPECIMENOrdering Facility: [facility] Address: [address] [place] [address] Performed By: #### 1 995-0 ####[facility] LABORATORYCLIA [id number] [address] [place] ECG COMPLETEon 05-06-2024 ECG COMPLETE Ventricular Rate : 9 6 BPM Atrial Rate : 96 BPM P-R Interval : 148 ms QRS Duration : 66 ms Q-T Interval : 392 ms QTC Calculation(Bazett) : 495 ms Calculated P [place] : 38 degrees Calculated R [place] : -8 degrees Calculated T [place] : 25 degrees NORMAL SINUS RHYTHM LOW VOLTAGE QRS POSSIBLE LATERAL INFARCT , AGE UNDETERMINED ABNORMAL ECG NO PREVIOUS ECGS AVAILABLE Confirmed by MD HARRIS CAROL ([id number]) on 05/06/2024 8:06:44 AM NAME : BRIANNE COCHRAN PID : [id number] : 1945 Gender : Female Race : ORD : [id number] Procedure Date : May 06 2024 01:54:10 Edit Date : May 06 2024 08:06:49 Diagnosis: NORMAL SINUS RHYTHM LOW VOLTAGE QRS POSSIBLE LATERAL INFARCT , AGE UNDETERMINED ABNORMAL ECG NO PREVIOUS ECGS AVAILABLE Confirmed by MD HARRIS CAROL ([id number]) on 05/06/2024 8:06:44 AM Test Reason : Arrhythmia Location : 4 : AKED EM Overread By : MD HARRIS CAROL Edited By : MD HARRIS CAROL Referred By : , Acquired by : CHAR THOMASON [facility] ED NOTEon 05-06-2024 ED NOTE HNO ID: [id number] Author: RAPHAEL LANE RN Service: ? Author Type: Registered Nurse Type: ED Notes Filed: 05/06/2024 16:26 Note Text: Arterial line attempt not successful. Dr. Paiz at bedside to attempt. [facility] ED NOTE HNO ID: [id number] Author: DEVEN GÓMEZ, KHADAR Service: Emergency Medicine Author Type: Registered Nurse Type: ED Notes Filed: 05/06/2024 13:22 Note Text: [place] sandwich, applesauce, and jello given to patient along with macarena pola [facility] ED NOTE HNO ID: [id number] Author: EFE RICKETTS, KHADAR Service: ? Author Type: Registered Nurse Type: ED Notes Filed: 05/06/2024 02:38 Note Text: Pt back from CT scan, monitors reattached. Pt requesting sth for pain after the transfers from bed to table. [facility] ED NOTE HNO ID: [id number] Author: EFE RICKETTS, KHADAR Service: ? Author Type: Registered Nurse Type: ED Notes Filed: 05/06/2024 02:21 Note Text: Pt to CT in cart [facility] ED NOTE HNO ID: [id number] Author: EFE RICKETTS, RN Service: ? Author Type: Registered Nurse Type: ED Notes Filed: 05/06/2024 01:46 Note Text: CT notified of pt. Normal [facility] ED PROV NOTEon 05-06-2024 ED PROV NOTE HNO ID: [id number] Author: BC HARRIS MD Service: Emergency Medicine Author Type: Physician Type: ED Provider Notes Filed: 05/06/2024 14:36 Note Text: This patient was signed out to me by Dr. Horowitz. The patient was originally admitted to the surgical ICU. The surgical team has now downgraded her to a regular surgical floor. BC HARRIS 05/06/24 1436 Normal [facility] HIGH SENSITIVITY TROPONIN To n 05-06-2024 Troponin T.cardiac High sensitivity method [Mass/Vol] 20 ng/L High <12 [facility] Comment on above: Order Comment: Speci men Type: BLOOD SPECIMENOrdering Facility: [facility] Address: [address] [place] [address] Performed By: #### H STNT ####[facility] LABORATORYCLIA [id number] [address] [place] HISTORY PHYSICALon HISTORY PHYSICAL HNO ID: [id number] Author: HORACE NOGUERA MD Service: General Surgery Author Type: Physician Type: H&P Filed: 05/06/2024 09:19 Note Text: TRAUMA SURGERY [facility] ARRIVAL DATE: 05/05/2024 ARRIVAL TIME: 11:32 PM CATEGORY: consult INJURY DATE: 05/05/2024 INJURY TIME: 11:32 PM Subjective 78 year old female w hx of migraines, L hip fx s/p repair, here as a trauma transfer from [place] after GLF at home, pt does not recall falling, does not recall if she passed out or she hit her head. Denies use of blood thinners GCS at Scene was 14. Minus one for confusion. Complains of pain in chest and tender to touch. CT Chest frm outside facility noticble for biltal rib fractures, T11 fx compression. Neg wrist R imagining, or L forearm imaging. HPI/CHIEF COMPLAINT: GLF BRIEF DESCRIPTION OF INJURIES: rib fxs, T11 fx LAST FLUIDS/MEAL: 05/05 CODE STATUS: Discussed with patient FuLL code ALLERGIES Allergen Reactions Acetaminophen-Codei* Unknown Biaxin [Clarithromy* Unknown Doesn't remember, was a long time ago Codeine unknown-long time ago Naproxen Rash Generalized, nonpruritic Relafen [Nabumetone] Unknown Doesn't remember (Not in a hospital admission) DATE OF LAST TETANUS: unknown Immunization History Administered Date(s) Administered COVID-19 original vaccine, age 12+ yr, monovalent ([employer] - PURPLE TOP) 05/22/2020 06/12/2020 diphtheria tetanus (DT) vaccine, pediatric 11/06/2004 influenza (HD-IIV3) vaccine, age 65+ yr, high dose, trivalent, PF (FLUZONE HIGH-DOSE) 01/30/2015 11/26/2016 11/24/2017 11/24/2018 influenza (HD-IIV4) vaccine, age 65+ yr, high dose, quadrivalent, PF (FLUZONE HIGH-DOSE) 03/12/2020 12/17/2020 12/24/2021 01/05/2023 influenza vaccine, unspecified formulation 03/19/2010 02/19/2011 01/25/2013 pneumococcal conjugate (PCV13) vaccine, 13 valent (PREVNAR 13) 01/30/2015 pneumococcal polysaccharide (PPV23) vaccine, 23 valent (PNEUMOVAX 23) 10/28/2012 PAST MEDICAL HISTORY Diagnosis Date Adjustment disorder with depressed mood Breast calcifications 12/2016 Depression Iron deficiency anemia, unspecified Lateral sclerosis Migraine headache without aura <=1 per month as of May 2013 Myalgia and myositis, unspecified Osteoarthritis Spastic paresis (HCC) Unspecified hypothyroidism PAST SURGICAL HISTORY Procedure Laterality Date BREAST BIOPSY Left 12/16/2016 [facility]-Dr. Sandhu DELIVERY ONLY , low transverse x 2 HIP SURGERY HX Left 09/08/2022 Left, femur fracture. Dr. Benson PAST SURGICAL HISTORY OF cyst removed from ovaries Social History Tobacco Use Smoking status: Never Smokeless tobacco: Never Vaping Use Vaping status: Never Used Substance Use Topics Alcohol use: No Drug use: No FAMILY HISTORY Problem Relation Age of Onset Psychiatry Father Cancer Father lymphoma Headache Father other (HTN) Father Cancer Mother brain mets Psychiatry Mother depression/anxiety Headache Mother other (HTN) Mother Colon Cancer Other none Coronary Artery Disease Other none Breast Cancer Sister ROS: Is the patient having any pain? Yes LOCATION: Rib fx Constitutional: Negative Eye/Ear/Nose: Negative Respiratory: Negative Cardiovascular: Negative GI/Liver/Biliary: Negative Genitourinary: Negative Psychiatric: Negative Neurologic: Negative Musculoskeletal: Negative Integument: Negative Endocrine: Negative Heme/Lymph: Negative Objective PRIMARY SURVEY AIRWAY: Patent BREATHING: Breath sounds equal CIRCULATION: PT/DP 2, Radials 2, Femoral 2 DISABILITY: Eye: 4=Spontaneous Verbal: 4=Disoriented and Converses Motor: 6=Obeys Commands Total GCS: 15=4 Resp Rate: 10 to 29=4 Syst BP: > than 89=4 REVISED TRAUMA SCORE: 12 EXPOSE / ENVIRONMENT: Warm Blankets PROCEDURES: na SECONDARY SURVEY VITALS: 05/05/242054 BP: 177/93 Pulse: (!) 97 Resp: 20 Temp: 36.5 ?C (97.7 ?F) TempSrc: Oral SpO2: (!) 93% Weight: 61.7 kg (136 lb) Height: 152.4 cm (5') NEURO: Alert AND Oriented x 3, GCS 15, Cranial Nerves II-XII grossly Intact, Moves All Extremities, Strength Symmetrical, No Sensory Deficits. HEENT: Head: No lacerations or abrasions, no bony step-offs, midface stable to palpation. Eyes: PERRL, conjunctiva/corneas without lesions, EOMI. Ears: Canals without blood or CSF drainage, TMs clear, external ears without lacerations. Nose: Septum midline, no crepitus with motion. Throat: Oral mucosa without lacerations, teeth in place, tongue without lacerations. NECK: No midline pain with palpation, no lacerations/wounds, trachea midline. RESPIRATORY: No abrasions or contusions, no crepitus, chest wall without ttp, equal excursion. Unlabored breathing on 3LNC CARDIOVASCULAR: regular rate, good perfusion throughout ABDOMEN: Soft, non-distended, non-tender, no scars or lacerations, no rebound or guarding. No masses or organome (more content not included)... Normal [facility] Lipase SerPl-cCncon 05-06-19 25 Lipase [Catalytic activity/Vol] 11 U/L Low 16-61 [facility] Comment on above: Order Comment: Speci men Type: BLOOD SPECIMENOrdering Facility: [facility] Address: [facility] [address] Performed By: #### 3 040-3, 1798-8 ####[facility] LABORATORYCLIA [id number] [place] [address] [place] MRI CERVICAL SPINE WO IVCONo n 05-06-2024 MRI CERVICAL SPINE WO IVCON * * *Final Report* * * DATE OF EXAM: May 06 2024 9:10AM [place] 0297 - MRI CERVICAL SPINE WO IVCON / PROCEDURE REASON: Spinal stenosis, cervical * * * * Physician Interpretation * * * * EXAMINATION: MRI CERVICAL SPINE WO IVCON, MRI THORACIC SPINE WO IVCON, MRI LUMBAR SPINE WO IVCON CLINICAL HISTORY: Spinal stenosis, cervical TECHNIQUE: Routine cervical, thoracic, and lumbosacral spine MR protocol without gadolinium. MQ: [id number] COMPARISON: MRI cervical spine 03/27/2007. MRI thoracic spine 02/05/2013. CT of the cervical spine 05/06/2024. RESULT: CERVICAL: Counting reference: Craniocervical junction. Anatomic Variants: None. Localizer images: No additional findings. Alignment: Alignment is anatomic. Craniocervical junction: Craniocervical junction is normal. Cord: The cervical spinal cord is within normal limits of signal intensity and morphology. Bone marrow signal/fracture: No evidence of pathologic marrow infiltration. No evidence of prior fracture. Cervical soft tissues: The paraspinal soft tissues are within normal limits. Canal and foramina: C2-C3: Canal and foramina are patent. C3-C4: Disc/osteophyte complex bulge abuts cord ventrally. Facet and uncinate hypertrophy with mild bilateral foraminal stenosis, right greater than left. C4-C5: Disc/osteophyte complex bulge with cord abutment ventrally. No cord compression. Mild bilateral foraminal stenosis. C5-C6: Disc/osteophyte complex bulge abuts cord ventrally without compression. Facet and uncinate hypertrophy with mild bilateral foraminal stenosis, right greater than left. C6-C7: Disc/osteophyte complex bulge with partial effacement of the thecal sac anteriorly. No significant foraminal stenosis. C7-T1: Canal and foramina are patent. THORACIC: Counting reference: Craniocervical and lumbosacral junctions. For the purposes of this report, L4-5 is considered the level of the iliac crest and assume there are 5 lumbar-type vertebrae. Anatomic variant: None. Localizer images: No additional findings. Alignment: Increased kyphosis centered at T11-T12 secondary to severe compression deformities. Alignment of the thoracic region is otherwise preserved. Cord: The thoracic spinal cord is within normal limits of signal intensity and morphology. Bone marrow signal/fracture: Chronic compression deformity of T3 with 80% height loss, no retropulsion. Chronic compression deformity of T11 with vertebral planum appearance and mild retropulsion of the posterior wall contributing to mild to moderate spinal canal stenosis. No cord compression identified. There is chronic compression deformity of T12 with 80% height loss and vertebroplasty changes, retropulsion of the posterior wall of T12 contributing to mild to moderate spinal canal stenosis, no cord compression. No other thoracic compression deformity or pathologic bone marrow signal identified. Bone island is seen at T7 level. Thoracic soft tissues: The paraspinal soft tissues are within normal limits. Canal and foramina: Mild to moderate spinal canal stenosis at the level of T11 and T12 compression deformities with mild to moderate bilateral foraminal narrowing at T10-L1 levels bilaterally. No other significant canal or foraminal stenosis. LUMBAR: Counting reference: Craniocervical and lumbosacral junctions. For the purposes of this report, L4-5 is considered the level of the iliac crest and assume there are 5 lumbar-type vertebrae. Anatomic variant: None. Localizer images: Bilateral femoral hardware. Alignment: 2 mm retrolisthesis of L1 on L2. Alignment is otherwise preserved. Bone marrow signal/fracture: No evidence of pathologic marrow infiltration. No evidence of prior fracture. Conus: The conus is within normal limits of signal intensity and morphology. Paraspinal soft tissues: Paraspinal soft tissues are within normal limits. Canal and foramina: L1-L2: Retrolisthesis with mild spinal canal and mild lateral foraminal stenosis. L2-L3: Disc bulge with minimal bilateral foraminal narrowing. No significant canal narrowing. L3-L4: Disc bulge with mild spinal canal and mild bilateral foraminal stenosis. L4-L5: Disc bulge and facet/ligamentous hypertrophy resulting in drcn-kg-[id number] spinal canal stenosis and mild bilateral foraminal stenosis. L5-S1: Disc bulge with mild bilateral foraminal narrowing. No significant canal narrowing. Sacrum and iliac wings: The visualized sacrum and iliac wings are within normal limits. The presacral soft tissues are normal in appearance. IMPRESSION: Chronic compression deformities involving T3, T11 and T12 levels with retropulsion at T11 and T12 levels contributing to mild-moderate spinal canal stenosis. No cord compression. No bone marrow edema to suggest acute fracture elsewhere. Normal morphology and signal intensity of the spinal cord and cauda equina. No severe spinal flakito (more content not included)... Normal [facility] MRI LUMBAR SPINE WO IVCONon 05-06-2024 MRI LUMBAR SPINE WO IVCON * * *Final Report* * * DATE OF EXAM: May 06 2024 9:10AM [facility] 0303 - MRI LUMBAR SPINE WO IVCON / PROCEDURE REASON: Low back pain, trauma * * * * Physician Interpretation * * * * EXAMINATION: MRI CERVICAL SPINE WO IVCON, MRI THORACIC SPINE WO IVCON, MRI LUMBAR SPINE WO IVCON CLINICAL HISTORY: Spinal stenosis, cervical TECHNIQUE: Routine cervical, thoracic, and lumbosacral spine MR protocol without gadolinium. MQ: [id number]_3 COMPARISON: MRI cervical spine 03/27/2007. MRI thoracic spine 02/05/2013. CT of the cervical spine 05/06/2024. RESULT: CERVICAL: Counting reference: Craniocervical junction. Anatomic Variants: None. Localizer images: No additional findings. Alignment: Alignment is anatomic. Craniocervical junction: Craniocervical junction is normal. Cord: The cervical spinal cord is within normal limits of signal intensity and morphology. Bone marrow signal/fracture: No evidence of pathologic marrow infiltration. No evidence of prior fracture. Cervical soft tissues: The paraspinal soft tissues are within normal limits. Canal and foramina: C2-C3: Canal and foramina are patent. C3-C4: Disc/osteophyte complex bulge abuts cord ventrally. Facet and uncinate hypertrophy with mild bilateral foraminal stenosis, right greater than left. C4-C5: Disc/osteophyte complex bulge with cord abutment ventrally. No cord compression. Mild bilateral foraminal stenosis. C5-C6: Disc/osteophyte complex bulge abuts cord ventrally without compression. Facet and uncinate hypertrophy with mild bilateral foraminal stenosis, right greater than left. C6-C7: Disc/osteophyte complex bulge with partial effacement of the thecal sac anteriorly. No significant foraminal stenosis. C7-T1: Canal and foramina are patent. THORACIC: Counting reference: Craniocervical and lumbosacral junctions. For the purposes of this report, L4-5 is considered the level of the iliac crest and assume there are 5 lumbar-type vertebrae. Anatomic variant: None. Localizer images: No additional findings. Alignment: Increased kyphosis centered at T11-T12 secondary to severe compression deformities. Alignment of the thoracic region is otherwise preserved. Cord: The thoracic spinal cord is within normal limits of signal intensity and morphology. Bone marrow signal/fracture: Chronic compression deformity of T3 with 80% height loss, no retropulsion. Chronic compression deformity of T11 with vertebral planum appearance and mild retropulsion of the posterior wall contributing to mild to moderate spinal canal stenosis. No cord compression identified. There is chronic compression deformity of T12 with 80% height loss and vertebroplasty changes, retropulsion of the posterior wall of T12 contributing to mild to moderate spinal canal stenosis, no cord compression. No other thoracic compression deformity or pathologic bone marrow signal identified. Bone island is seen at T7 level. Thoracic soft tissues: The paraspinal soft tissues are within normal limits. Canal and foramina: Mild to moderate spinal canal stenosis at the level of T11 and T12 compression deformities with mild to moderate bilateral foraminal narrowing at T10-L1 levels bilaterally. No other significant canal or foraminal stenosis. LUMBAR: Counting reference: Craniocervical and lumbosacral junctions. For the purposes of this report, L4-5 is considered the level of the iliac crest and assume there are 5 lumbar-type vertebrae. Anatomic variant: None. Localizer images: Bilateral femoral hardware. Alignment: 2 mm retrolisthesis of L1 on L2. Alignment is otherwise preserved. Bone marrow signal/fracture: No evidence of pathologic marrow infiltration. No evidence of prior fracture. Conus: The conus is within normal limits of signal intensity and morphology. Paraspinal soft tissues: Paraspinal soft tissues are within normal limits. Canal and foramina: L1-L2: Retrolisthesis with mild spinal canal and mild lateral foraminal stenosis. L2-L3: Disc bulge with minimal bilateral foraminal narrowing. No significant canal narrowing. L3-L4: Disc bulge with mild spinal canal and mild bilateral foraminal stenosis. L4-L5: Disc bulge and facet/ligamentous hypertrophy resulting in iwtm-vo-cimdelon spinal canal stenosis and mild bilateral foraminal stenosis. L5-S1: Disc bulge with mild bilateral foraminal narrowing. No significant canal narrowing. Sacrum and iliac wings: The visualized sacrum and iliac wings are within normal limits. The presacral soft tissues are normal in appearance. IMPRESSION: Chronic compression deformities involving T3, T11 and T12 levels with retropulsion at T11 and T12 levels contributing to mild-moderate spinal canal stenosis. No cord compression. No bone marrow edema to suggest acute fracture elsewhere. Normal morphology and signal intensity of the spinal cord and cauda equina. No severe spinal canal sten (more content not included)... Normal [facility] MRI THORACIC SPINE WO IVCONo n 05-06-2024 MRI THORACIC SPINE WO IVCON * * *Final Report* * * DATE OF EXAM: May 06 2024 9:10AM [facility] 0325 - MRI THORACIC SPINE WO IVCON / PROCEDURE REASON: Spine fracture, thoracic, traumatic * * * * Physician Interpretation * * * * EXAMINATION: MRI CERVICAL SPINE WO IVCON, MRI THORACIC SPINE WO IVCON, MRI LUMBAR SPINE WO IVCON CLINICAL HISTORY: Spinal stenosis, cervical TECHNIQUE: Routine cervical, thoracic, and lumbosacral spine MR protocol without gadolinium. MQ: [id number]_[id number] COMPARISON: MRI cervical spine 03/27/2007. MRI thoracic spine 02/05/2013. CT of the cervical spine 05/06/2024. RESULT: CERVICAL: Counting reference: Craniocervical junction. Anatomic Variants: None. Localizer images: No additional findings. Alignment: Alignment is anatomic. Craniocervical junction: Craniocervical junction is normal. Cord: The cervical spinal cord is within normal limits of signal intensity and morphology. Bone marrow signal/fracture: No evidence of pathologic marrow infiltration. No evidence of prior fracture. Cervical soft tissues: The paraspinal soft tissues are within normal limits. Canal and foramina: C2-C3: Canal and foramina are patent. C3-C4: Disc/osteophyte complex bulge abuts cord ventrally. Facet and uncinate hypertrophy with mild bilateral foraminal stenosis, right greater than left. C4-C5: Disc/osteophyte complex bulge with cord abutment ventrally. No cord compression. Mild bilateral foraminal stenosis. C5-C6: Disc/osteophyte complex bulge abuts cord ventrally without compression. Facet and uncinate hypertrophy with mild bilateral foraminal stenosis, right greater than left. C6-C7: Disc/osteophyte complex bulge with partial effacement of the thecal sac anteriorly. No significant foraminal stenosis. C7-T1: Canal and foramina are patent. THORACIC: Counting reference: Craniocervical and lumbosacral junctions. For the purposes of this report, L4-5 is considered the level of the iliac crest and assume there are 5 lumbar-type vertebrae. Anatomic variant: None. Localizer images: No additional findings. Alignment: Increased kyphosis centered at T11-T12 secondary to severe compression deformities. Alignment of the thoracic region is otherwise preserved. Cord: The thoracic spinal cord is within normal limits of signal intensity and morphology. Bone marrow signal/fracture: Chronic compression deformity of T3 with 80% height loss, no retropulsion. Chronic compression deformity of T11 with vertebral planum appearance and mild retropulsion of the posterior wall contributing to mild to moderate spinal canal stenosis. No cord compression identified. There is chronic compression deformity of T12 with 80% height loss and vertebroplasty changes, retropulsion of the posterior wall of T12 contributing to mild to moderate spinal canal stenosis, no cord compression. No other thoracic compression deformity or pathologic bone marrow signal identified. Bone island is seen at T7 level. Thoracic soft tissues: The paraspinal soft tissues are within normal limits. Canal and foramina: Mild to moderate spinal canal stenosis at the level of T11 and T12 compression deformities with mild to moderate bilateral foraminal narrowing at T10-L1 levels bilaterally. No other significant canal or foraminal stenosis. LUMBAR: Counting reference: Craniocervical and lumbosacral junctions. For the purposes of this report, L4-5 is considered the level of the iliac crest and assume there are 5 lumbar-type vertebrae. Anatomic variant: None. Localizer images: Bilateral femoral hardware. Alignment: 2 mm retrolisthesis of L1 on L2. Alignment is otherwise preserved. Bone marrow signal/fracture: No evidence of pathologic marrow infiltration. No evidence of prior fracture. Conus: The conus is within normal limits of signal intensity and morphology. Paraspinal soft tissues: Paraspinal soft tissues are within normal limits. Canal and foramina: L1-L2: Retrolisthesis with mild spinal canal and mild lateral foraminal stenosis. L2-L3: Disc bulge with minimal bilateral foraminal narrowing. No significant canal narrowing. L3-L4: Disc bulge with mild spinal canal and mild bilateral foraminal stenosis. L4-L5: Disc bulge and facet/ligamentous hypertrophy resulting in aviv-lr-[id number] spinal canal stenosis and mild bilateral foraminal stenosis. L5-S1: Disc bulge with mild bilateral foraminal narrowing. No significant canal narrowing. Sacrum and iliac wings: The visualized sacrum and iliac wings are within normal limits. The presacral soft tissues are normal in appearance. IMPRESSION: Chronic compression deformities involving T3, T11 and T12 levels with retropulsion at T11 and T12 levels contributing to mild-moderate spinal canal stenosis. No cord compression. No bone marrow edema to suggest acute fracture elsewhere. Normal morphology and signal intensity of the spinal cord and cauda equina. No severe s (more content not included)... Normal [facility] Magnesium SerPl-mCncon 05-06 Magnesium [Mass/Vol] 1.7 mg/dL Normal 1.7-2.3 [facility] Comment on above: Order Comment: Glendy lizama Type: BLOOD SPECIMENOrdering Facility: [facility] Address: [address] [place] [address] Performed By: #### 2 4321-2, 08478-1, 2777-1 ####[facility] LABORATORYCLIA [id number] [place] [address] [place] PT panel Coag (PPP)on 2024 INR Coag (PPP) [Relative time] 1.0 {INR} Normal 0.9-1.3 [facility] Comment on above: Order Comment: Glendy lizama Type: BLOOD SPECIMENOrdering Facility: [facility] Address: [address] [place] [address] Result Comment: Maggi min K Antagonist (VKA) Therapeutic Range: INR 2 to 3 (Target INR of 2.5) Note: For patients treated with VKA drugs, such as warfarin, the [employer] 2012 Guideline recommends a therapeutic INR range of 2 to 3 (target INR of 2.5). This recommendation includes high-risk patients with antiphospholipid syndrome with previous arterial or venous thromboembolism, current-generation mechanical or bioprosthetic aortic heart valve replacement. Note: Patients with mechanical aortic valve replacement and additional risk factors for thromboembolic events (atrial fibrillation, previous thromboembolism, LV dysfunction, hypercoagulable conditions) or an older generation mechanical AVR (i.e., ball in-Cage) or any mechanical MVR should have a INR therapeutic range of 2.5 to 3.5 (target INR of 3). Reji GH, et al. Chest 2012, 141:7S-47S Malka RA, et al. [facility] 2017, 70: 252-289 Performed By: #### 3 4528-0, 20855-6 ####[facility] LABORATORYCLIA [id number] [place] [address] [place] PT Coag (PPP) [Time] 11.3 s Normal 9.7-13.0 [facility] Comment on above: Order Comment: Speci men Type: BLOOD SPECIMENOrdering Facility: [facility] Address: [address] [place] [address] Performed By: #### 3 4528-0, 30166-9 ####[facility] LABORATORYCLIA [id number] [place] [address] [place] Phosphate SerPl-mCncon 05-06 Phosphate [Mass/Vol] 3.3 mg/dL Normal 2.7-4.8 [facility] Comment on above: Order Comment: Speci men Type: BLOOD SPECIMENOrdering Facility: [facility] Address: [address] [place] [address] Performed By: #### 2 4321-2, 41681-3, 2777-1 ####[facility] LABORATORYCLIA [id number] [place] [address] [place] TYPE + SCREENon 05-06-2024 ABO O Normal [facility] Comment on above: Order Comment: Speci men Type: BLOOD SPECIMENOrdering Facility: [facility] Address: [address] [place] [address] Performed By: #### T SCR ####[facility] BLOOD BANKCLIA [id number] [place] [id number] [facility] Rh Nom (Bld) Positive Normal [facility] Comment on above: Order Comment: Speci men Type: BLOOD SPECIMENOrdering Facility: [facility] Address: [address] [place] [address] Performed By: #### T SCR ####[facility] BLOOD BANKCLIA [id number] [address] OF [facility] TYPE AND SCREEN EXPIRATION 05/09/2024 23:59 Normal [facility] Comment on above: Order Comment: Speci men Type: BLOOD SPECIMENOrdering Facility: [facility] Address: [address] [place] [address] Performed By: #### T SCR ####[facility] BLOOD BANKCLIA [id number] [address] Urinalysis complete panel (U )on 05-06-2024 Bilirubin Ql (U) Negative Normal Negative [facility] Comment on above: Order Comment: Speci men Type: URINE SPECIMENOrdering Facility: [facility] Address: [address] [place] [address] Performed By: #### 2 4356-8 ####[facility] LABORATORYCLIA [id number] [address] Clarity (Unsp spec) Turbid Abnormal Clear [facility] Comment on above: Order Comment: Speci men Type: URINE SPECIMENOrdering Facility: [facility] Address: [address] [place] [address] Performed By: #### 2 4356-8 ####[facility] LABORATORYCLIA [id number] [address] Color (U) Yellow Normal yellow [facility] Comment on above: Order Comment: Speci men Type: URINE SPECIMENOrdering Facility: [facility] Address: [address] [place] [address] Performed By: #### 2 4356-8 ####[facility] LABORATORYCLIA [id number] [address] Glucose Test strip (U) [Mass/Vol] Negative Normal Trace, Negative [facility] Comment on above: Order Comment: Speci men Type: URINE SPECIMENOrdering Facility: [facility] Address: [address] [place] [address] Performed By: #### 2 4356-8 ####[facility] LABORATORYCLIA [id number] [address] OF [facility] Hemoglobin Ql (U) Trace Normal Negative, Trace [facility] Comment on above: Order Comment: Speci men Type: URINE SPECIMENOrdering Facility: [facility] Address: [address] [place] [address] Performed By: #### 2 4356-8 ####[facility] LABORATORYCLIA [id number] [address] Ketones Ql (U) 2+ Abnormal Negative, Trace [facility] Comment on above: Order Comment: Speci men Type: URINE SPECIMENOrdering Facility: [facility] Address: [address] [place] [address] Performed By: #### 2 4356-8 ####[facility] LABORATORYCLIA [id number] [address] Leukocyte esterase Test strip Ql (U) 25 Bella/uL Normal Negative, 25 Bella/uL [facility] Comment on above: Order Comment: Speci men Type: URINE SPECIMENOrdering Facility: [facility] Address: [address] [place] [address] Performed By: #### 2 4356-8 ####[facility] LABORATORYCLIA [id number] [address] Nitrite Ql (U) Negative Normal Negative [facility] Comment on above: Order Comment: Speci men Type: URINE SPECIMENOrdering Facility: [facility] Address: [address] [place] [address] Performed By: #### 2 4356-8 ####[facility] LABORATORYCLIA [id number] [address] [place] pH (U) 6.0 [pH] Normal 5.0-8.0 [facility] Comment on above: Order Comment: Speci men Type: URINE SPECIMENOrdering Facility: [facility] Address: [address] [place] [address] Performed By: #### 2 4356-8 ####[facility] LABORATORYCLIA [id number] [place] [address] [place] Protein (U) [Mass/Vol] Trace Normal Trace , Negative [facility] Comment on above: Order Comment: Speci men Type: URINE SPECIMENOrdering Facility: [facility] Address: [address] [place] [address] Performed By: #### 2 4356-8 ####[facility] LABORATORYCLIA [id number] [address] [place] RBC LM.HPF (Urine sed) [#/Area] 3-5 /HPF Abnormal 0-3 /HPF [facility] Comment on above: Order Comment: Speci men Type: URINE SPECIMENOrdering Facility: [facility] Address: [address] [place] [address] Performed By: #### 2 4356-8 ####[facility] LABORATORYCLIA [id number] [address] [place] Specific gravity (U) [Rel density] 1.022 Normal 1.005-1.030 [facility] Comment on above: Order Comment: Speci men Type: URINE SPECIMENOrdering Facility: [facility] Address: [address] [place] [address] Performed By: #### 2 4356-8 ####[facility] LABORATORYCLIA [id number] [address] Urobilinogen Ql (U) Normal Normal Normal [facility] Comment on above: Order Comment: Speci men Type: URINE SPECIMENOrdering Facility: [facility] Address: [address] [place] [address] Performed By: #### 2 4356-8 ####[facility] LABORATORYCLIA [id number] [place] [address] [employer] [place] [facility] WBC LM.HPF (Urine sed) [#/Area] 0-5 /HPF Normal 0-5 /HPF [facility] Comment on above: Order Comment: Speci men Type: URINE SPECIMENOrdering Facility: [facility] Address: [address] [place] [address] Performed By: #### 2 4356-8 ####[facility] LABORATORYCLIA [id number] [place] [address] [employer] [place] XR CHEST 2V FRONTAL/LATon XR CHEST 2V FRONTAL/LAT * * *Final Repor t* * * DATE OF EXAM: May 06 2024 5:25AM AKX [id number] - XR CHEST 2V FRONTAL/LAT / PROCEDURE REASON: Chest Pain * * * * Physician Interpretation * * * * EXAMINATION: CHEST RADIOGRAPH (2 VIEW FRONTAL and LATERAL) CLINICAL HISTORY: Chest Pain MQ: [id number]_6 EXAM DATE/TIME: 05/06/2024 5:25 AM COMPARISON: 03/15/2013 RESULT: Lines, tubes, and devices: None. Lungs and pleura: Prominent bilateral interstitial opacities, similar to 2014. More focal infiltrate/consolidat ion in the left lower lung is new. No pneumothorax. Cardiomediastinal silhouette: Stable cardiomediastinal silhouette. Atherosclerotic calcifications of the aorta. Bones and soft tissues: Degenerative changes in the spine, kyphosis, osteopenia, and multiple age-indeterminate compression deformities. IMPRESSION: Prominent bilateral interstitial opacities, representing chronic interstitial changes, similar to the prior exam. More focal opacity noted in the left lung base could represent an acute infiltrate or consolidation. Degenerative changes in the spine, kyphosis, osteopenia, and multiple age indeterminate compression deformities. Consider additional imaging if there is back pain. Dip Dyer: REANNA Transcribe Date/Time: May 06 2024 8:08A Dictated by : CECILIA HARRIS MD This examination was interpreted and the report reviewed and electronically signed by: CECILIA HARRIS MD on May 06 2024 8:11AM EST [id number] Normal [facility] aPTT PPPon 05-06-2024 aPTT Coag (PPP) [Time] 28.2 s Normal 23.0-32.4 [facility] Comment on above: Order Comment: Speci men Type: BLOOD SPECIMENOrdering Facility: [facility] Address: [address] [place] [address] Performed By: #### 3 4528-0, 09902-1 ####[facility] LABORATORYCLIA [id number] [place] [address] [facility] 12 Lead EKGon 05-05-[address] [facility] [address] [place] [address] 12 Lead EKG 05/05/24 1621 MR#: [id number] Acct: [id number] Name: BRIANNE COCHRAN Rep #: [id number] : 1945 78 From: Renaldo Ruiz MD Attending Dr: Status: DEP ER Ordering Dr: Edmundo Judd MD Date: 05/05/24 Location: ED Sex: F C Admitted: Test Reason : FALL Blood Pressure : */* mmHG Vent. Rate : 96 BPM Atrial Rate : 96 BPM P-R Int : 142 ms QRS Dur : 74 ms QT Int : 390 ms P-R-T Axes : 14 -8 39 degrees QTcB Int : 492 ms Normal sinus rhythm Nonspecific ST abnormality Prolonged QT Abnormal ECG BASELINE ARTIFACT Confirmed by Renaldo Ruiz ([id number]), legal editor ANA MARIA SOTO ([id number]) on 05/07/2024 10:16:02 AM Referred By: Confirmed By: Renaldo Ruiz 05/07/24 1016 Date Renaldo Ruiz MD CC: Dr. Edmundo Judd MD; Dr. Vera Pompa MD Signed Normal [facility] Absolute lymphocyte countOrd ered By: Edmundo Judd on 05-05-2024 Lymphocytes Auto (Unsp spec) [#/Vol] 0.90 10*3/uL 0.83-4.51 [facility] Absolute neutrophil countOrd ered By: Edmundo Marinchris on 05-05-2024 Neutrophils (Bld) [#/Vol] 8.6 10*3/uL High 2.0-7.7 [facility] Albumin to globulin ratioOrd ered By: Edmundo Taniachris on 05-05-2024 Albumin/Globulin [Mass ratio] 0.8 {ratio} Low 0.9-2.4 [facility] Alcohol, Blood (Medical)-Ser umon 05-05-2024 SERUM ETOH < 3.0 Normal [facility] Comment on above: Result Comment: The serum:whole blood ethanol ratio is approximately 1.14 and varies slightly with hematocrit. Medical Alcohol reference interval and critical value in non-tolerant individuals; 50 - 100 Impairment 100 Intoxication 100 - 250 Severe Poisoning 250 - 400 Deep/possible fatal coma Performed By: #### L 501.5200, L501.2300 #### [facility] Laboratory [address] [place], [place], [address] Automated lymphocyte count a s percentage of total leukocytesOrdered By: Edmundo Judd on 05-05-2024 Lymphocytes/100 WBC Auto (Unsp spec) 8.9 % Low 19-41 [facility] Basophil percentageOrdered B y: Edmundo Taniachris on 05-05-2024 Basophils/100 WBC (Bld) 0.6 % 0-1 [facility] Bilirubin, totalOrdered By: Edmundo Judd on 05-05-2024 Bilirubin [Mass/Vol] 0.80 mg/dL 0.20-1.00 [facility] Comment on above: For patients on eltr ombopag therapy, use of Dimension [place] TBIL is not recommended. Blood urea nitrogen (BUN)/cr eatinine ratioOrdered By: Edmundo Judd on 05-05-2024 Urea nitrogen/Creatinine [Mass ratio] 25.6 mg/mg High 10-20 [facility] CBC W/Diff, Automatedon 04-15 Absolute Lymph 0.90 X10 3/uL Normal 0.83-4.51 [facility] Comment on above: Performed By: #### L 501.5200, L501.2300 #### [facility] [address] [place], [address] Absolute Neut 8.6 X10 3/uL High 2.0-7.7 [facility] Comment on above: Performed By: #### L 501.5200, L501.2300 #### [facility] [address] [place], [address] Basophils/100 WBC (Bld) 0.6 % Normal 0-1 [facility] Comment on above: Performed By: #### L 501.5200, L501.2300 #### [facility] [address] [place], [address] Eosinophils/100 WBC (Bld) 0.9 % Normal 0-5 [facility] Comment on above: Performed By: #### L 501.5200, L501.2300 #### [facility] [address] [place], [address] Erythrocyte distribution width (RBC) [Ratio] 12.5 % Normal 11.6-14.6 [facility] Comment on above: Performed By: #### L 501.5200, L501.2300 #### [facility] [address] [place], [address] Hematocrit (Bld) [Volume fraction] 39.6 % Normal 37-47 [facility] Comment on above: Performed By: #### L 501.5200, L501.2300 #### [facility] [address] [place], [address] Hemoglobin (Bld) [Mass/Vol] 13.1 g/dL Normal 12.0-15.0 [facility] Comment on above: Performed By: #### L 501.5200, L501.2300 #### [facility] [address] [place], [address] IG% 0.500 Normal 0.0-0.9 [facility] Comment on above: Result Comment: IG% - Immature Granulocytes (promyelocytes, myelocytes and metamyelocytes) > 1% indicates that a LEFT SHIFT is Present. Performed By: #### L 501.5200, L501.2300 #### [facility] [address] [place], [address] Lymphocytes/100 WBC (Bld) 8.9 % Low 19-41 [facility] Comment on above: Performed By: #### L 501.5200, L501.2300 #### [facility] [address] [place], [address] MCH (RBC) [Entitic mass] 31.0 pg Normal 27.0-32.0 [facility] Comment on above: Performed By: #### L 501.5200, L501.2300 #### [facility] [address] [place], [address] MCHC (RBC) [Mass/Vol] 33.1 g/dL Normal 32-36 [facility] Comment on above: Performed By: #### L 501.5200, L501.2300 #### [facility] [address] [place], [address] MCV (RBC) [Entitic vol] 93.6 fL Normal 81-99 [facility] Comment on above: Performed By: #### L 501.5200, L501.2300 #### [facility] [address] [place], [address] Monocytes/100 WBC (Bld) 4.2 % Normal 0-10 [facility] Comment on above: Performed By: #### L 501.5200, L501.2300 #### [facility] [address] [place], [address] Neutrophils/100 WBC (Bld) 84.9 % High 47-70 [facility] Comment on above: Performed By: #### L 501.5200, L501.2300 #### [facility] [address] [place], [address] Nucleated RBC (Bld) [#/Vol] 0 10*3/uL Normal 0-5 [facility] Comment on above: Performed By: #### L 501.5200, L501.2300 #### [facility] [address] [place], [address] Platelet mean volume (Bld) [Entitic vol] 10.1 fL Normal 6.2-12.0 [facility] Comment on above: Performed By: #### L 501.5200, L501.2300 #### [facility] [address] [place], [address] Platelets (Bld) [#/Vol] 316 10*3/uL Normal 150-450 [facility] Comment on above: Performed By: #### L 501.5200, L501.2300 #### [facility] [address] [place], [address] RBC (Bld) [#/Vol] 4.23 10*6/uL Normal 4.2-5.4 [facility] Comment on above: Performed By: #### L 501.5200, L501.2300 #### [facility] [address] [place], [address] RDW SD 43.2 fl Normal 35.1-43.9 [facility] Comment on above: Performed By: #### L 501.5200, L501.2300 #### [facility] [address] [place], [address] WBC (Bld) [#/Vol] 10.1 10*3/uL Normal 4.4-11.0 [facility] Comment on above: Performed By: #### L 501.5200, L501.2300 #### [facility] [address] [place], [address] Carbon dioxide measurementOr dered By: Edmundo Judd on 05-05-2024 CO2 [Moles/Vol] 23.0 mmol/L 21.0-32.0 [facility] Chest without Contraston Chest without Contrast [facility] Imaging Services [address] [place] [place] [address] Chest without Contrast MR#: [id number] Acct: [id number] Name: BRIANNE COCHRAN Rep #: [id number] : 1945 F 78 From: James Betancur MD PCP: Dr. Vera Pompa MD Status: REG ER Study: Chest without Contrast Date of Exam: 05/05/24 Exam# [id number] Ordering Dr: Edmundo Judd MD PROCEDURE: CHEST WITHOUT CONTRAST REASON FOR EXAM: Left rib trauma TECHNIQUE: Chest CT without contrast. COMPARISON: None. FINDINGS: Hardware: None. Lymph nodes: No mediastinal hilar or axillary lymphadenopathy. Heart and Vasculature: Coronary artery calcifications are noted. Atherosclerotic calcifications of the thoracic aorta. Thoracic aorta and pulmonary arteries have normal contours; noncontrast technique limits evaluation. Lungs and Airways: Mild dependent atelectasis and scarring. Pleura: No pleural effusion. No pneumothorax. Upper Abdomen: Visualized portions of the upper abdominal viscera are unremarkable. Bones: Nondisplaced posterior 10th and 11th right rib fractures and nondisplaced lateral 4th, 5th, 6, 7th, and 8th left rib fractures. There is severe compression fracture of T11. Vertebroplasty has been performed on T12. Other: Moderate hiatal hernia. CT/Chest without Contrast IMPRESSION: 1. Multiple bilateral rib fractures 2. Compression fracture of T11; treated compression fracture at T12 One or more dose reduction techniques were used (e.g., Automated exposure control, adjustment of the mA and/or kV according to patient size, use of iterative reconstruction technique). [facility] CC: Dr. Edmundo Judd MD; Dr. Vera Pompa MD Dip Dyer: Signed Normal [facility] Chloride measurementOrdered By: Edmundo Judd on 05-05-2024 Chloride [Moles/Vol] 108 mmol/L High 98-107 [facility] Comprehensive Metabolic Prof ilon 05-05-2024 Albumin [Mass/Vol] 3.7 g/dL Normal 3.2-5.0 [facility] Comment on above: Performed By: #### L 501.5200, L501.2300 #### [facility] [address] [place], [address] Albumin/Globulin [Mass ratio] 0.8 {ratio} Low 0.9-2.4 [facility] Comment on above: Performed By: #### L 501.5200, L501.2300 #### [facility] [address] [place], [address] ALK P 105 U/L Normal 45-117 [facility] Comment on above: Performed By: #### L 501.5200, L501.2300 #### [facility] [address] [place], [address] ALT [Catalytic activity/Vol] 39 U/L Normal 13-56 [facility] Comment on above: Performed By: #### L 501.5200, L501.2300 #### [facility] [address] [place], [address] AST [Catalytic activity/Vol] 34 U/L Normal 15-37 [facility] Comment on above: Result Comment: Slig ht Hemolysis, Result may be falsely increased. Performed By: #### L 501.5200, L501.2300 #### [facility] [address] [place], [address] Bilirubin [Mass/Vol] 0.80 mg/dL Normal 0.20-1.00 [facility] Comment on above: Result Comment: For patients on eltrombopag therapy, use of Dimension [place] TBIL is not recommended. Performed By: #### L 501.5200, L501.2300 #### [facility] [address] [place], [address] BUN/CRE 25.6 RATIO High 10-20 [facility] Comment on above: Performed By: #### L 501.5200, L501.2300 #### [facility] [address] [place], [address] CA,Total 9.7 mg/dL Normal 8.5-10.1 [facility] Comment on above: Performed By: #### L 501.5200, L501.2300 #### [facility] [address] [place], [address] Chloride [Moles/Vol] 108 mmol/L High 98-107 [facility] Comment on above: Performed By: #### L 501.5200, L501.2300 #### [facility] [address] [place], [address] CO2 [Moles/Vol] 23.0 mmol/L Normal 21.0-32.0 [facility] Comment on above: Performed By: #### L 501.5200, L501.2300 #### [facility] [address] [place], [address] Creatinine [Mass/Vol] 0.70 mg/dL Normal 0.55-1.02 [facility] Comment on above: Result Comment: The validity of the calculated GFR GFRAA in patients over 70 years has not been determined. Clinical correlation is essential. Performed By: #### L 501.5200, L501.2300 #### [facility] [address] [place], [address] ECRCL 49.51 ml/min Normal [facility] Comment on above: Performed By: #### L 501.5200, L501.2300 #### [facility] [address] [place], [address] EST GFR - AA 104 mL/min Normal >60 [facility] Comment on above: Result Comment: Afri can Welsh GFR Calc Performed By: #### L 501.5200, L501.2300 #### [facility] [address] [place], [address] GAP 8 Normal 5-15 [facility] Comment on above: Performed By: #### L 501.5200, L501.2300 #### [facility] [address] [place], [address] GFR/1.73 sq M.predicted among non-blacks MDRD (S/P/Bld) [Vol rate/Area] 86 mL/min/{1.73_m2} Normal >60 [facility] Comment on above: Result Comment: Non- GFR Calc Performed By: #### L 501.5200, L501.2300 #### [facility] [address] [place], [address] Globulin (S) [Mass/Vol] 4.4 g/dL High 2.2-4.2 [facility] Comment on above: Performed By: #### L 501.5200, L501.2300 #### [facility] [address] [place], [address] Glucose [Mass/Vol] 106 mg/dL Normal 74-106 [facility] Comment on above: Result Comment: Fast ing Glucose result from 100 to 125 mg/dL suggests IMPAIRED HOMEOSTASIS per A.D.A. criteria. Performed By: #### L 501.5200, L501.2300 #### [facility] [address] [place], [address] Potassium [Moles/Vol] 4.2 mmol/L Normal 3.5-5.1 [facility] Comment on above: Result Comment: Slig ht Hemolysis, Result may be falsely increased. Performed By: #### L 501.5200, L501.2300 #### [facility] [address] [place], [address] Sodium [Moles/Vol] 139 mmol/L Normal 136-145 [facility] Comment on above: Performed By: #### L 501.5200, L501.2300 #### [facility] [address] [place], [address] T PROT 8.1 g/dL Normal 6.4-8.2 [facility] Comment on above: Performed By: #### L 501.5200, L501.2300 #### [facility] [address] [place], [address] Urea nitrogen [Mass/Vol] 18 mg/dL Normal 7-18 [facility] Comment on above: Performed By: #### L 501.5200, L501.2300 #### [facility] [address] [place], [address] ED NOTEon 05-05-2024 ED NOTE HNO ID: [id number] Author: EFE RICKETTS RN Service: ? Author Type: Registered Nurse Type: ED Notes Filed: 05/06/2024 01:07 Note Text: CMS intact at 30 minutes post block. [facility] ED NOTE HNO ID: [id number] Author: EFE RICKETTS RN Service: ? Author Type: Registered Nurse Type: ED Notes Filed: 05/06/2024 01:06 Note Text: CMS intact @ 15 after nerve block. [facility] ED NOTE HNO ID: [id number] Author: EFE RICKETTS RN Service: ? Author Type: Registered Nurse Type: ED Notes Filed: 05/05/2024 21:21 Note Text: Pt on monitors, spo2, NBP from arrival to ED. Dr. Garcia and Dr. Harrington at bedside for nerve block procedure at this time. [facility] ED NOTE HNO ID: [id number] Author: EFE RICKETTS RN Service: ? Author Type: Registered Nurse Type: ED Notes Filed: 05/05/2024 21:06 Note Text: Placed on 2L nc d/t chest injury. 97% on 2L. [facility] ED PROV NOTEon 05-05-2024 ED PROV NOTE HNO ID: [id number] Author: NASREEN HARRINGTON MD Service: Emergency Medicine Author Type: Physician Type: ED Provider Notes Filed: 05/08/2024 21:29 Note Text: ED Provider Note Patient Name: Brianne Cochran : 1945 SERVICE DATE: 05/05/24 History Patient presents with: Functional Transfers: Pt arrives via [facility] from [facility] as transfer for trauma consult. Pt. Fell early this afternoon at home, sustained multiple b/l rib fx 4-8 on left side, as well as T12 compression fx. C-spine cleared. Pt arrives AANDO3, GCS 15. 93% on RA, Hx frequent falls recently. 78-year-old female presenting to the emergency department via EMS as transfer from [place] for trauma evaluation. Patient ports earlier this morning she sustained a fall while attempting to transport would from the stack into her furnace. She denies tripping over anything. She states that recently she has been having increasing ambulatory dysfunction resulting in falls. She denies preceding chest pain, shortness of breath, headache, dizziness, or syncope. Upon descent she hit her left back on the wood stove prior to falling to the floor. At present her only complaint is left-sided back pain. She currently rates it a 10 out of 10. She denies blood thinner complaints. Upon initial evaluation at [place] earlier today she was found to have nondisplaced posterior 10th and 11th rib fractures as well as nondisplaced lateral fourth, fifth, sixth, seventh and eighth left-sided rib fractures. Additional findings includesevere compression fracture of T11. Previous vertebroplasty on T12 mentioned. Labs completed at [place] including CBC, CMP, and alcohol level unrevealing. PAST MEDICAL HISTORY Diagnosis Date Adjustment disorder with depressed mood Breast calcifications 12/2016 Depression Iron deficiency anemia, unspecified Lateral sclerosis Migraine headache without aura <=1 per month as of May 2013 Myalgia and myositis, unspecified Osteoarthritis Spastic paresis (HCC) Unspecified hypothyroidism PAST SURGICAL HISTORY Procedure Laterality Date BREAST BIOPSY Left 12/16/2016 [facility]-Dr. Sandhu DELIVERY ONLY , low transverse x 2 HIP SURGERY HX Left 09/08/[address], [address] Benson PAST SURGICAL HISTORY OF cyst removed from ovaries FAMILY HISTORY Problem Relation Age of Onset Psychiatry Father Cancer Father lymphoma Headache Father other (HTN) Father Cancer Mother brain mets Psychiatry Mother depression/anxiety Headache Mother other (HTN) Mother Colon Cancer Other none Coronary Artery Disease Other none Breast Cancer Sister Social History Tobacco Use Smoking status: Never Smokeless tobacco: Never Vaping Use Vaping status: Never Used Substance and Sexual Activity Alcohol use: No Drug use: No Sexual activity: Not on file ALLERGIES Allergen Reactions Acetaminophen-Codei* Unknown Biaxin [Clarithromy* Unknown Doesn't remember, was a long time ago Codeine unknown-long time ago Naproxen Rash Generalized, nonpruritic Relafen [Nabumetone] Unknown Doesn't remember Review of Systems Respiratory: Negative for cough and shortness of breath. Cardiovascular: Negative for chest pain and leg swelling. Gastrointestinal: Negative for abdominal pain, diarrhea, nausea and vomiting. Genitourinary: Negative for dysuria and hematuria. Musculoskeletal: Positive for back pain (left). Negative for neck pain. Skin: Negative for rash and wound. Neurological: Negative for headaches. Physical Exam Vitals [05/05/242054] BP Pulse Temp Temp src Resp SpO2 Weight Height 177/93 (!) 97 36.5 ?C (97.7 ?F) Oral 20 (!) 93 % 61.7 kg (136 lb) 1.524 m (5') Physical Exam Vitals and nursing note reviewed. Constitutional: General: She is not in acute distress. Appearance: Normal appearance. She is not ill-appearing. HENT: Head: Normocephalic and atraumatic. Mouth/Throat: Comments: Tacky mucous membranes. Eyes: Conjunctiva/sclera: Conjunctivae normal. Pupils: Pupils are equal, round, and reactive to light. Cardiovascular: Rate and Rhythm: Normal rate and regular rhythm. Pulses: Radial pulses are 2+ on the right side and 2+ on the left side. Heart sounds: No murmur heard. Pulmonary: Effort: Pulmonary effort is normal. No respiratory distress. Breath sounds: Normal breath sounds. No decreased breath sounds. Abdominal: General: Abdomen is flat. Tenderness: There is no abdominal tenderness. Musculoskeletal: General: No swelling. Comments: Tenderness and bruising overlying left flank. Tenderness without overlying ecchymosis to right lower back. Patient moves all 4 extremities spontaneously. Skin: General: Skin is warm and dry. Findings: No rash. Comments: Large skin tear over left forearm. Some oozing of blood. Neurological: Mental Status: She is alert. Psychiatric: Mood and Affect: Mood (more content not included)... Normal [facility] Emergency Department Summary on 05-05-2024 Emergency Department Summary [facility] Medical Records Department [address] [place] [address] Emergency Department Summary 05/05/24 MR#: [id number] Acct: [id number] Name: BRIANNE COCHRAN Rep #: [id number] : 1945 78 From: Edmundo Judd MD PCP: Dr. Vera Pompa MD Status:REG ER Location: ED HPI HPI - Fall History of Present Illness Chief Complaint: Fall Narrative Narrative: 78-year-old female past medical history of frequent falls, experienced a fall today when she was going to go to the stove in the kitchen. At times, she often gets tripped up on her own feet and falls. She has a baseline general weakness according to her . Although he was not there at the time, he was only a few minutes away. They came home and put her in the car. She states that after she fell, she banged her right wrist on the floor trying to prevent her fall and brace it. She sustained a skin tear to her left proximal forearm as well. She denies hitting her head or loss of consciousness, states she does not take a blood thinner. She complains of left-sided posterior rib pain. No difficulty breathing. No other injuries. She is unsure of her last tetanus immunization. [facility] Medical History Non-smoker Sleep apnea Hypertension Migraines Chronic anemia Obesity Anxiety and depression GERD (gastroesophageal reflux disease) HLD (hyperlipidemia) PAF (paroxysmal atrial fibrillation) Fibromyalgia Osteoporosis Paroxysmal atrial fibrillation T12 compression fracture Closed right hip fracture Syncope Hypothyroid Home Medications ???Medication ???Instructions ???Recorded ???Last Taken ???Type alendronate 70 mg tablet 70 mg PO UD osteoporosis 09/07/22 Unknown History atorvastatin 20 mg tablet 20 mg PO QHS HLD 09/07/22 09/09/22 History fluoxetine 40 mg capsule 40 mg PO DAILY depression 09/07/22 09/10/22 History omeprazole 20 mg capsule,delayed 20 mg PO DAILY GERD 09/07/2209/10 History release calcium carbonate 500 mg (2.5 x 200 mg calcium (500 09/10/22 09/10/22 Rx mg)) PO TIDCM supplement #30 tabs oxycodone 5 mg tablet 5 mg PO Q6H PRN PRN Pain Score Unknown Rx 1-10 7 days #28 tabs sennosides 8.6 mg-docusate sodium 2 tab PO BID 30 days #120 tabs Unknown Rx 50 mg tablet (Stool Softener-Stimulant Laxative) levothyroxine 100 mcg tablet 100 mcg PO DAILY 05/05/24 Unknown History Allergy/AdvReac Type Severity Reaction Status Date / Time codeine Allergy Unknown Verified 05/05/24 15:08 codeine phosphate (From AdvReac Unknown Verified 05/05/24 15:08 Tylenol-Codeine #3) nabumetone (From Relafen) AdvReac Unknown Verified 05/05/24 15:08 naproxen AdvReac Unknown Verified 05/05/24 15:08 Family History Mother Cancer Father Cancer Surgical History S/P ORIF (open reduction internal fixation) fracture History of section H/O ovarian cystectomy History of total right hip replacement S/P kyphoplasty S/P ORIF (open reduction internal fixation) fracture Social History household members: spouse Smoking Status: Never smoker alcohol intake: never substance use type: does not use ROS ROS ED ROS Narrative Review of systems positive for right wrist pain and bruising as well as left proximal forearm skin tear with hematoma and tenderness. No elbow pain on the left. She is right-hand dominant. She also complains of left-sided posterior rib pain worse with movement. No headache or neck pain. Denies other injury. EXAM Physical Exam Narrative Exam Narrative: GCS 15. ABCs are intact. Neck soft and supple without meningismus. Mild tenderness to palpation left posterior ribs. No crepitance. Cardiovascular examination reveals a regular rate and rhythm. Lungs are clear to auscultation bilaterally with equal breath sounds. Abdomen is soft and nontender. Inspection of the right wrist does reveal mild ecchymosis about the right wrist running linearly. She is neurovascularly intact distally with palpable radial pulse and able to oppose thumb. Good capillary refill of fingers. Full range of motion of digits. No crepitance or pain with flexion extension of right wrist. Uninjured at the right elbow and above. Inspection of the left forearm does reveal a moderately sized skin tear at least 3 to 4 cm with underlying hematoma distally. She is able to flex and extend her left elbow as well. Palpable radial pulse distally. Neurological examination nonfocal and nonlateralizing. Const Vital Signs: 05/05/24 15:04 05/05/24 15:32 Temperature 97.8 F Temperature Source Temporal Pulse Rate 88 Respiratory Rate 16 (more content not included)... Normal [facility] Eosinophil percentageOrdered By: Edmundo Judd on 05-05-2024 Eosinophils/100 WBC (Bld) 0.9 % 0-5 [facility] Erythrocyte distribution wid th ratioOrdered By: Edmundo Judd on 05-05-2024 Erythrocyte distribution width (RBC) [Ratio] 12.5 % 11.6-14.6 [facility] Erythrocyte distribution wid th standard deviationOrdered By: Edmundo Judd on 05-05-2024 Erythrocyte distribution width (RBC) [Entitic vol] 43.2 fL 35.1-43.9 [facility] Erythrocyte distribution width (RBC) [Ratio] 43.2 fl 35.1-43.9 [facility] Estimated glomerular filtrat ion rate (GFR) AmericanOrdered By: Edmundo Judd on 05-05-2024 Estimated GFR (MDRD) Amer 104 mL/min >60 [facility] Comment on above: GFR Calc Estimation of creatinine magno aranceOrdered By: Edmundo Judd on 05-05-2024 Estimated Creatinine Clearance Calc 49.51 ml/min [facility] Forearm 2 Viewson 05-05-[address] [facility] Imaging Services [address] [place] [address] Forearm 2 Views MR#: [id number] Acct: [id number] Name: BRIANNE COCHRAN Rep #: [id number] : 1945 F 78 From: James Betancur MD PCP: Dr. Vear Pompa MD Status: REG ER Study: Forearm 2 Views Date of Exam: 05/05/24 Exam# [id number] Ordering Dr: Edmundo Judd MD PROCEDURE: FOREARM 2 VIEWS REASON FOR EXAM: Trauma TECHNIQUE: Two views of the left forearm COMPARISON: None. FINDINGS: LEFT FOREARM: No fracture. No suspicious bone lesion. Mild osteopenia Normal alignment at the wrist and elbow. Soft tissues are unremarkable. RAD/Forearm 2 Views IMPRESSION: Degenerative changes with no acute osseous abnormality in the left forearm Reading Location: [facility] CC: Dr. Edmundo Judd MD; Dr. Vera Pompa MD Dip Dyer: Signed Normal [facility] Glomerular filtration rate ( GFR) estimationOrdered By: Edmundo Judd on 05-05-2024 Estimated GFR (MDRD) Non-Af Amer 86 mL/min >60 [facility] Comment on above: Non- GFR Calc GFR/1.73 sq M.predicted among non-blacks MDRD (S/P/Bld) [Vol rate/Area] 86 mL/min/{1.73_m2} >60 [facility] Comment on above: Non- GFR Calc Glucose measurementOrdered B y: Edmundo Judd on 05-05-2024 Glucose [Mass/Vol] 106 mg/dL 74-106 [facility] Comment on above: Fasting Glucose resu lt from 100 to 125 mg/dL suggests IMPAIRED HOMEOSTASIS per A.D.A. criteria. Hematocrit Auto (Bld) [Volum e fraction]Ordered By: Edmundo Judd on 05-05-2024 Hematocrit (Bld) [Volume fraction] 39.6 % 37-47 [facility] Hemoglobin measurementOrdere d By: Edmundo Judd on 05-05-2024 Hemoglobin (Bld) [Mass/Vol] 13.1 g/dL 12.0-15.0 [facility] Immature granulocytes/100 WB C Auto (Bld)Ordered By: Edmundo Judd on 05-05-2024 Immature granulocytes/100 WBC (Bld) 0.500 % 0.0-0.9 [facility] Comment on above: IG% - Immature Granu locytes (promyelocytes, myelocytes and metamyelocytes) > 1% indicates that a LEFT SHIFT is Present. Laboratory - Chemistry and C hemistry - challengeOrdered By: Edmundo Judd on 05-05-2024 AST [Catalytic activity/Vol] 34 U/L 15-37 [facility] Comment on above: Slight Hemolysis, Re sult may be falsely increased. Lymphocytes Auto (Unsp spec) [#/Vol]Ordered By: Edmundo Judd on 05-05-2024 Lymphocytes (Bld) [#/Vol] 0.90 10*3/uL 0.83-4.51 [facility] Lymphocytes/100 WBC Auto (Un sp spec)Ordered By: Edmundo Judd on 05-05-2024 Lymphocytes/100 WBC (Bld) 8.9 % Low 19-41 [facility] MCV (mean corpuscular volume ) determinationOrdered By: Edmundo Judd on 05-05-2024 MCV (RBC) [Entitic vol] 93.6 fL 81-99 [facility] Mean corpuscular hemoglobin (MCH) determinationOrdered By: Edmundo Judd on 05-05-2024 MCH (RBC) [Entitic mass] 31.0 pg 27.0-32.0 [facility] Mean corpuscular hemoglobin concentration (MCHC) determinationOrdered By: Edmundo Judd on 05-05-2024 MCHC (RBC) [Mass/Vol] 33.1 g/dL 32-36 [facility] Mean platelet volume determi nationOrdered By: Edmundo Judd on 05-05-2024 Platelet mean volume (Bld) [Entitic vol] 10.1 fL 6.2-12.0 [facility] Monocyte percentageOrdered B y: Edmundo Judd on 05-05-2024 Monocytes/100 WBC (Bld) 4.2 % 0-10 [facility] Neutrophil percentageOrdered By: Edmundo Judd on 05-05-2024 Neutrophils/100 WBC (Bld) 84.9 % High 47-70 [facility] Nucleated red blood cell per centageOrdered By: Edmundo Judd on 05-05-2024 Nucleated RBC/100 WBC (Bld) [Ratio] 0 % 0-5 [facility] Platelet countOrdered By: Dennis Judd on 05-05-2024 Platelets (Bld) [#/Vol] 316 10*3/uL 150-450 [facility] Potassium measurementOrdered By: Edmundo Judd on 05-05-2024 Potassium [Moles/Vol] 4.2 mmol/L 3.5-5.1 [facility] Comment on above: Slight Hemolysis, Re sult may be falsely increased. RBC Auto (Bld) [#/Vol]Ordere d By: Edmundo Judd on 05-05-2024 RBC (Bld) [#/Vol] 4.23 10*6/uL 4.2-5.4 [facility] Serum anion gap measurementO rdered By: Edmundo Judd on 05-05-2024 Anion gap [Moles/Vol] 8 mmol/L 5-15 [facility] Serum ethanol measurementOrd ered By: Edmundo Judd on 05-05-2024 Ethyl Alcohol Level < 3.0 mg/dL [facility] Comment on above: The serum:whole bloo d ethanol ratio is approximately 1.14and varies slightly with hematocrit. Medical Alcohol reference interval and critical value innon-tolerant individuals; 50 - 100 Impairment 100 Intoxication 100 - 250 Severe Poisoning 250 - 400 Deep/possible fatal coma Serum globulin measurementOr dered By: Edmundo Judd on 05-05-2024 Globulin (S) [Mass/Vol] 4.4 g/dL High 2.2-4.2 [facility] Serum or plasma alanine spann otransferase (ALT) measurementOrdered By: Edmundo Judd on 05-05-2024 ALT [Catalytic activity/Vol] 39 U/L 13-56 [facility] Serum or plasma albumin criss urement (mass/volume)Ordered By: Edmundo Judd on 05-05-2024 Albumin [Mass/Vol] 3.7 g/dL 3.2-5.0 [facility] Serum or plasma alkaline irene sphatase measurementOrdered By: Edmundo Judd on 05-05-2024 ALP [Catalytic activity/Vol] 105 U/L 45-117 [facility] Serum or plasma calcium criss urement (mass/volume)Ordered By: Edmundo Judd on 05-05-2024 Calcium [Mass/Vol] 9.7 mg/dL 8.5-10.1 [facility] Serum or plasma creatinine m easurement (mass/volume)Ordered By: Edmundo Judd on 05-05-2024 Creatinine [Mass/Vol] 0.70 mg/dL 0.55-1.02 [facility] Comment on above: The validity of the calculated GFR & GFRAA in patients over 70 years has not been determined. Clinical correlation is essential. Serum or plasma urea nitroge n measurement (mass/volume)Ordered By: Edmundo Judd on 05-05-2024 Urea nitrogen [Mass/Vol] 18 mg/dL 7-18 [facility] Sodium levelOrdered By: Edmundo Judd on 05-05-2024 Sodium [Moles/Vol] 139 mmol/L 136-145 [facility] Total proteinOrdered By: Pola Judd on 05-05-2024 Protein [Mass/Vol] 8.1 g/dL 6.4-8.2 [facility] White blood cell (WBC) count Ordered By: Edmundo Judd on 05-05-2024 WBC (Bld) [#/Vol] 10.1 10*3/uL 4.4-11.0 [facility] Wrist min 3 Viewson 05-05-[address] [facility] Imaging Services [address] [place] [address] Wrist min 3 Views MR#: [id number] Acct: [id number] Name: BRIANNE COCHRAN Rep #: [id number] : 1945 F 78 From: James Betancur MD PCP: Dr. Vera Pompa MD Status: [facility] ER Study: Wrist min 3 Views Date of Exam: 05/05/24 Exam# [id number] Ordering Dr: Edmundo Judd MD PROCEDURE: WRIST MIN 3 VIEWS REASON FOR EXAM: Trauma TECHNIQUE: Three views of the right wrist COMPARISON: None. FINDINGS: RIGHT WRIST: No visible fracture. No suspicious bone lesion. Osteopenia. Moderate joint space narrowing in the radiocarpal joint. Normal alignment. Soft tissues are unremarkable. RAD/Wrist min 3 Views IMPRESSION: Degenerative changes with no acute osseous abnormality of the right wrist Reading Location: [facility] CC: Dr. Edmundo Judd MD; Dr. Vera Pompa MD Dip Dyer: Signed Normal [facility] 12-05-2023 [facility] Telephone (FAMWS) BRIANNE COCHRAN ([id number]) 1945 F Date Time Provider Department 12/05/23 APRYL GORMAN [facility] During your visit today, we recorded the following information about you: Allergies As of Date: 12/05/2023 Noted Allergy Reaction ACETAMINOPHEN-CODEINE 04/07/2023 16 - Unknown BIAXIN (CLARITHROMYCIN) 03/16/2005 16 - Unknown Comments: Doesn't remember, was a long time ago CODEINE 01/05/2007 Comments: unknown-long time ago NAPROXEN 11/23/2007 2 - Rash Comments: Generalized, nonpruritic RELAFEN (NABUMETONE) 03/16/2005 16 - Unknown Comments: Doesn't remember Date Reviewed: 09/01/2023 Reviewed by: Celso Day LPN - Fully Assessed Visit Diagnosis:Hypothyroid ism, unspecified type [E03.9] Prescriptions as of 12/30/2023 - levothyroxine (SYNTHROID) 100 mcg tablet Take 1 tablet by mouth once daily. - levothyroxine (SYNTHROID) 100 mcg tablet Take 1 tablet by mouth once daily. Take on empty stomach - alendronate (FOSAMAX) 70 mg tablet Take 1 tablet by mouth one time a week. - cyclobenzaprine (FLEXERIL) 5 mg tablet Take 1 tablet by mouth three times a day as needed. - omeprazole (PRILOSEC) 20 mg capsule Take 1 capsule by mouth daily before breakfast. 1/2 hr before meal. - atorvastatin (LIPITOR) 20 mg tablet Take 1 tablet by mouth once daily. - FLUoxetine (PROZAC) 40 mg capsule Take 1 capsule by mouth once daily. - meclizine 25 mg chewable tablet(s) CHEW AND SWALLOW 1 TABLET THREE TIMES DAILY NEEDED FOR DIZZINESS - FLUoxetine (PROZAC) 40 mg capsule Take 1 capsule by mouth once daily. - oxyCODONE IR (ROXICODONE) 5 mg immediate release tablet Take 1 tablet by mouth as directed. D/C from [facility]; for HIP fracture - senna-docusate (SENNA-S) 8.6-50 mg per tablet Take 1 tablet by mouth twice daily. - triamcinolone (KENALOG) 0.025 % ointment Apply [...] once daily. 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] 06/11/2013 Hyperlipidemia, mixed [E78.2] 03/12/2020 Encounter Status:Closed by CELSO DAY [facility]30/23 [facility] DIMASBRI[facility]NE Ricardo ([id number]) 1945 F Date Time Provider Department 12/05/23 APRYL GORMAN During your visit today, we recorded the following information about you: Celso Day LPN 12/05/2023 11:39 AM Signed .rx Allergies As of Date: 12/05/2023 Noted Allergy Reaction ACETAMINOPHEN-CODEINE 04/07/2023 16 - Unknown BIAXIN (CLARITHROMYCIN) 03/16/2005 16 - Unknown Comments: Doesn't remember, was a long time ago CODEINE 01/05/2007 Comments: unknown-long time ago NAPROXEN 11/23/2007 2 - Rash Comments: Generalized, nonpruritic RELAFEN (NABUMETONE) 03/16/2005 16 - Unknown Comments: Doesn't remember Date Reviewed: 09/01/2023 Reviewed by: Celso Day LPN - Fully Assessed Visit Diagnosis:Hypothyroid ism, unspecified type [E03.9] Order(s):levothyroxin e (SYNTHROID) 100 mcg tabletTake 1 tablet by mouth once daily.Disp: 90 tabletRfl: 3 levothyroxine (SYNTHROID) 100 mcg tabletTake 1 tablet by mouth once daily. Take on empty stomachDisp: 30 tabletRfl: 0 Prescriptions as of 12/05/2023 - levothyroxine (SYNTHROID) 100 mcg tablet Take 1 tablet by mouth once daily. - levothyroxine (SYNTHROID) 100 mcg tablet Take 1 tablet by mouth once daily. Take on empty stomach - alendronate (FOSAMAX) 70 mg tablet Take 1 tablet by mouth one time a week. - cyclobenzaprine (FLEXERIL) 5 mg tablet Take 1 tablet by mouth three times a day as needed. - omeprazole (PRILOSEC) 20 mg capsule Take 1 capsule by mouth daily before breakfast. 1/2 hr before meal. - atorvastatin (LIPITOR) 20 mg tablet Take 1 tablet by mouth once daily. - FLUoxetine (PROZAC) 40 mg capsule Take 1 capsule by mouth once daily. - meclizine 25 mg chewable tablet(s) CHEW AND SWALLOW 1 TABLET THREE TIMES DAILY NEEDED FOR DIZZINESS - FLUoxetine (PROZAC) 40 mg capsule Take 1 capsule by mouth once daily. - oxyCODONE IR (ROXICODONE) 5 mg immediate release tablet Take 1 tablet by mouth as directed. D/C from [facility]; for HIP fracture - senna-docusate (SENNA-S) 8.6-50 mg per tablet Take 1 tablet by mouth twice daily. - triamcinolone (KENALOG) 0.025 % ointment Apply [...] once daily. 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 Cosign required by APRYL GORMAN[[id number]] LEVOTHYROXINE 100 MCG TABLET 30 t* 0 12/05/2023 01/04/2024 Route: ORAL Sig: Take 1 tablet by mouth once daily. Take on empty stomach Cosign required by APRYL GORMAN[[id number]] Medications Discontinued During This Encounter Prescriptions - levothyroxine (SYNTHROID) 100 mcg tablet (Discontinued) Take 1 tablet by mouth once daily. Encounter Status:Closed by CELSO ADY on 12/05/23 Normal [facility] Basic Metabolic Profile (BMP )on 11-07-2023 BUN Normal 7-18 [facility] Comment on above: Result Comment: Canc elled via OM: Order cancelled - Patient discharged Performed By: #### L 100.0100, L500.2500 #### [facility] [address] [place], [address] BUN/CRE Normal 10-20 [facility] Comment on above: Result Comment: Canc elled via OM: Order cancelled - Patient discharged Performed By: #### L 100.0100, L500.2500 #### [facility] [address] [place], [address] CA,Total Normal 8.5-10.1 [facility] Comment on above: Result Comment: Canc elled via OM: Order cancelled - Patient discharged Performed By: #### L 100.0100, L500.2500 #### [facility] [address] [place], [address] CL Normal 98-107 [facility] Comment on above: Result Comment: Canc elled via OM: Order cancelled - Patient discharged Performed By: #### L 100.0100, L500.2500 #### [facility] [address] [place], [address] CO2 Normal 21.0-32.0 [facility] Comment on above: Result Comment: Canc elled via OM: Order cancelled - Patient discharged Performed By: #### L 100.0100, L500.2500 #### [facility] [address] [place], [address] CREAT,SERUM Normal 0.55-1.02 [facility] Comment on above: Result Comment: Canc elled via OM: Order cancelled - Patient discharged Performed By: #### L 100.0100, L500.2500 #### [facility] [address] [place], [address] EST GFR Normal >60 [facility] Comment on above: Result Comment: Canc elled via OM: Order cancelled - Patient discharged Performed By: #### L 100.0100, L500.2500 #### [facility] [address] [place], [address] EST GFR - AA Normal >60 [facility] Comment on above: Result Comment: Canc elled via OM: Order cancelled - Patient discharged Performed By: #### L 100.0100, L500.2500 #### [facility] [address] [place], [address] GAP Normal 5-15 [facility] Comment on above: Result Comment: Canc elled via OM: Order cancelled - Patient discharged Performed By: #### L 100.0100, L500.2500 #### [facility] [address] [place], [address] GLU Normal 74-106 [facility] Comment on above: Result Comment: Canc elled via OM: Order cancelled - Patient discharged Performed By: #### L 100.0100, L500.2500 #### [facility] [address] [place], [address] Potassium Normal 3.5-5.1 [facility] Comment on above: Result Comment: Canc elled via OM: Order cancelled - Patient discharged Performed By: #### L 100.0100, L500.2500 #### [facility] [address] [place], [address] Basic Metabolic Profile (BMP) Normal 136-145 [facility] Comment on above: Result Comment: Canc elled via OM: Order cancelled - Patient discharged Performed By: #### L 100.0100, L500.2500 #### [facility] [address] [place], [address] CBC W/Diff, Automatedon 08-2 Absolute Neut Normal 2.0-7.7 [facility] Comment on above: Result Comment: Canc elled via OM: Order cancelled - Patient discharged Performed By: #### L 100.0100, L500.2500 #### [facility] [address] [place], [address] HCT Normal 37-47 [facility] Comment on above: Result Comment: Canc elled via OM: Order cancelled - Patient discharged Performed By: #### L 100.0100, L500.2500 #### [facility] [address] [place], [address] HGB Normal 12.0-15.0 [facility] Comment on above: Result Comment: Canc elled via OM: Order cancelled - Patient discharged Performed By: #### L 100.0100, L500.2500 #### [facility] [address] [place], [address] MCH Normal 27.0-32.0 [facility] Comment on above: Result Comment: Canc elled via OM: Order cancelled - Patient discharged Performed By: #### L 100.0100, L500.2500 #### [facility] [address] [place], [address] MCHC Normal 32-36 [facility] Comment on above: Result Comment: Canc elled via OM: Order cancelled - Patient discharged Performed By: #### L 100.0100, L500.2500 #### [facility] [address] [place], [address] MCV Normal 81-99 [facility] Comment on above: Result Comment: Canc elled via OM: Order cancelled - Patient discharged Performed By: #### L 100.0100, L500.2500 #### [facility] [address] [place], [address] NEUT% Normal 47-70 [facility] Comment on above: Result Comment: Canc elled via OM: Order cancelled - Patient discharged Performed By: #### L 100.0100, L500.2500 #### [facility] [address] [place], [address] PLT Normal 150-450 [facility] Comment on above: Result Comment: Canc elled via OM: Order cancelled - Patient discharged Performed By: #### L 100.0100, L500.2500 #### [facility] [address] [place], [address] RBC Normal 4.2-5.4 [facility] Comment on above: Result Comment: Canc elled via OM: Order cancelled - Patient discharged Performed By: #### L 100.0100, L500.2500 #### [facility] [address] [place], [address] RDW CV Normal 11.6-14.6 [facility] Comment on above: Result Comment: Canc elled via OM: Order cancelled - Patient discharged Performed By: #### L 100.0100, L500.2500 #### [facility] [address] [place], [address] RDW SD Normal 35.1-43.9 [facility] Comment on above: Result Comment: Canc elled via OM: Order cancelled - Patient discharged Performed By: #### L 100.0100, L500.2500 #### [facility] [address] [place], [address] WBC Normal 4.4-11.0 [facility] Comment on above: Result Comment: Canc elled via OM: Order cancelled - Patient discharged Performed By: #### L 100.0100, L500.2500 #### [facility] [address] [place], [address] Basic Metabolic Profile (BMP )on 11-06-2023 BUN Normal 7-18 [facility] Comment on above: Result Comment: Canc elled via OM: Order cancelled - Patient discharged Performed By: #### L 501.5200, L501.2300 #### [facility] [address] [place], [address] BUN/CRE Normal 10-20 [facility] Comment on above: Result Comment: Canc elled via OM: Order cancelled - Patient discharged Performed By: #### L 501.5200, L501.2300 #### [facility] [address] [place], [address] CA,Total Normal 8.5-10.1 [facility] Comment on above: Result Comment: Canc elled via OM: Order cancelled - Patient discharged Performed By: #### L 501.5200, L501.2300 #### [facility] [address] [place], [address] CL Normal 98-107 [facility] Comment on above: Result Comment: Canc elled via OM: Order cancelled - Patient discharged Performed By: #### L 501.5200, L501.2300 #### [facility] [address] [place], [address] CO2 Normal 21.0-32.0 [facility] Comment on above: Result Comment: Canc elled via OM: Order cancelled - Patient discharged Performed By: #### L 501.5200, L501.2300 #### [facility] [address] [place], [address] CREAT,SERUM Normal 0.55-1.02 [facility] Comment on above: Result Comment: Canc elled via OM: Order cancelled - Patient discharged Performed By: #### L 501.5200, L501.2300 #### [facility] [address] [place], [address] EST GFR Normal >60 [facility] Comment on above: Result Comment: Canc elled via OM: Order cancelled - Patient discharged Performed By: #### L 501.5200, L501.2300 #### [facility] [address] [place], [address] EST GFR - AA Normal >60 [facility] Comment on above: Result Comment: Canc elled via OM: Order cancelled - Patient discharged Performed By: #### L 501.5200, L501.2300 #### [facility] [address] [place], [address] GAP Normal 5-15 [facility] Comment on above: Result Comment: Canc elled via OM: Order cancelled - Patient discharged Performed By: #### L 501.5200, L501.2300 #### [facility] [address] [place], [address] GLU Normal 74-106 [facility] Comment on above: Result Comment: Canc elled via OM: Order cancelled - Patient discharged Performed By: #### L 501.5200, L501.2300 #### [facility] [address] [place], [address] Potassium Normal 3.5-5.1 [facility] Comment on above: Result Comment: Canc elled via OM: Order cancelled - Patient discharged Performed By: #### L 501.5200, L501.2300 #### [facility] [address] [place], [address] Basic Metabolic Profile (BMP) Normal 136-145 [facility] Comment on above: Result Comment: Canc elled via OM: Order cancelled - Patient discharged Performed By: #### L 501.5200, L501.2300 #### [facility] [address] [place], [address] CBC W/Diff, Automatedon 08-2 Absolute Neut Normal 2.0-7.7 [facility] Comment on above: Result Comment: Canc elled via OM: Order cancelled - Patient discharged Performed By: #### L 501.5200, L501.2300 #### [facility] [address] [place], [address] HCT Normal 37-47 [facility] Comment on above: Result Comment: Canc elled via OM: Order cancelled - Patient discharged Performed By: #### L 501.5200, L501.2300 #### [facility] [address] [place], [address] HGB Normal 12.0-15.0 [facility] Comment on above: Result Comment: Canc elled via OM: Order cancelled - Patient discharged Performed By: #### L 501.5200, L501.2300 #### [facility] [address] [place], [address] MCH Normal 27.0-32.0 [facility] Comment on above: Result Comment: Canc elled via OM: Order cancelled - Patient discharged Performed By: #### L 501.5200, L501.2300 #### [facility] [address] [place], [address] MCHC Normal 32-36 [facility] Comment on above: Result Comment: Canc elled via OM: Order cancelled - Patient discharged Performed By: #### L 501.5200, L501.2300 #### [facility] [address] [place], [address] MCV Normal 81-99 [facility] Comment on above: Result Comment: Canc elled via OM: Order cancelled - Patient discharged Performed By: #### L 501.5200, L501.2300 #### [facility] [address] [place], [address] NEUT% Normal 47-70 [facility] Comment on above: Result Comment: Canc elled via OM: Order cancelled - Patient discharged Performed By: #### L 501.5200, L501.2300 #### [facility] [address] [place], [address] PLT Normal 150-450 [facility] Comment on above: Result Comment: Canc elled via OM: Order cancelled - Patient discharged Performed By: #### L 501.5200, L501.2300 #### [facility] [address] [place], [address] RBC Normal 4.2-5.4 [facility] Comment on above: Result Comment: Canc elled via OM: Order cancelled - Patient discharged Performed By: #### L 501.5200, L501.2300 #### [facility] [address] [place], [address] RDW CV Normal 11.6-14.6 [facility] Comment on above: Result Comment: Canc elled via OM: Order cancelled - Patient discharged Performed By: #### L 501.5200, L501.2300 #### [facility] [address] [place], [address] RDW SD Normal 35.1-43.9 [facility] Comment on above: Result Comment: Canc elled via OM: Order cancelled - Patient discharged Performed By: #### L 501.5200, L501.2300 #### [facility] [address] [place], [address] WBC Normal 4.4-11.0 [facility] Comment on above: Result Comment: Canc elled via OM: Order cancelled - Patient discharged Performed By: #### L 501.5200, L501.2300 #### [facility] [address] [place], [address] Basic Metabolic Profile (BMP )on 11-05-2023 BUN/CRE 33.3 RATIO High 10-20 [facility] Comment on above: Performed By: #### L 100.0100, L500.2500 #### [facility] [address] [place], [address] CA,Total 8.4 mg/dL Low 8.5-10.1 [facility] Comment on above: Performed By: #### L 100.0100, L500.2500 #### [facility] [address] [place], [address] Chloride [Moles/Vol] 110 mmol/L High 98-107 [facility] Comment on above: Performed By: #### L 100.0100, L500.2500 #### [facility] [address] [place], [address] CO2 [Moles/Vol] 19.0 mmol/L Low 21.0-32.0 [facility] Comment on above: Performed By: #### L 100.0100, L500.2500 #### [facility] [address] [place], [address] Creatinine [Mass/Vol] 0.63 mg/dL Normal 0.55-1.02 [facility] Comment on above: Result Comment: The validity of the calculated GFR GFRAA in patients over 70 years has not been determined. Clinical correlation is essential. Performed By: #### L 100.0100, L500.2500 #### [facility] [address] [place], [address] ECRCL 48.79 ml/min Normal [facility] Comment on above: Performed By: #### L 100.0100, L500.2500 #### [facility] [address] [place], [address] EST GFR - AA 118 mL/min Normal >60 [facility] Comment on above: Result Comment: Afri can [place] GFR Calc Performed By: #### L 100.0100, L500.2500 #### [facility] [address] [place], [address] GAP 7 Normal 5-15 [facility] Comment on above: Performed By: #### L 100.0100, L500.2500 #### [facility] [address] [place], [address] GFR/1.73 sq M.predicted among non-blacks MDRD (S/P/Bld) [Vol rate/Area] 98 mL/min/{1.73_m2} Normal >60 [facility] Comment on above: Result Comment: Non- GFR Calc Performed By: #### L 100.0100, L500.2500 #### [facility] [address] [place], [address] Glucose [Mass/Vol] 80 mg/dL Normal 74-106 [facility] Comment on above: Performed By: #### L 100.0100, L500.2500 #### [facility] [address] [place], [address] Potassium [Moles/Vol] 4.0 mmol/L Normal 3.5-5.1 [facility] Comment on above: Result Comment: Mode rate Hemolysis, Result may be falsely increased. Performed By: #### L 100.0100, L500.2500 #### [facility] [address] [place], [address] Sodium [Moles/Vol] 136 mmol/L Normal 136-145 [facility] Comment on above: Performed By: #### L 100.0100, L500.2500 #### [facility] [address] [place], [address] Urea nitrogen [Mass/Vol] 21 mg/dL High 7-18 [facility] Comment on above: Performed By: #### L 100.0100, L500.2500 #### [facility] [address] [place], [address] CBC W/Diff, Automatedon 08-2 4-2024 Absolute Lymph 2.17 X10 3/uL Normal 0.83-4.51 [facility] Comment on above: Performed By: #### L 100.0100, L500.2500 #### [facility] [address] [place], [address] Absolute Neut 4.1 X10 3/uL Normal 2.0-7.7 [facility] Comment on above: Performed By: #### L 100.0100, L500.2500 #### [facility] [address] [place], [address] Basophils/100 WBC (Bld) 1.1 % High 0-1 [facility] Comment on above: Performed By: #### L 100.0100, L500.2500 #### [facility] [address] [place], [address] Eosinophils/100 WBC (Bld) 6.7 % High 0-5 [facility] Comment on above: Performed By: #### L 100.0100, L500.2500 #### [facility] [address] [place], [address] Erythrocyte distribution width (RBC) [Ratio] 12.4 % Normal 11.6-14.6 [facility] Comment on above: Performed By: #### L 100.0100, L500.2500 #### [facility] [address] [place], [address] Hematocrit (Bld) [Volume fraction] 38.7 % Normal 37-47 [facility] Comment on above: Performed By: #### L 100.0100, L500.2500 #### [facility] [address] [place], [address] Hemoglobin (Bld) [Mass/Vol] 12.3 g/dL Normal 12.0-15.0 [facility] Comment on above: Performed By: #### L 100.0100, L500.2500 #### [facility] [address] [place], [address] IG% 0.300 Normal 0.0-0.9 [facility] Comment on above: Result Comment: IG% - Immature Granulocytes (promyelocytes, myelocytes and metamyelocytes) > 1% indicates that a LEFT SHIFT is Present. Performed By: #### L 100.0100, L500.2500 #### [facility] [address] [place], [address] Lymphocytes/100 WBC (Bld) 29.0 % Normal 19-41 [facility] Comment on above: Performed By: #### L 100.0100, L500.2500 #### [facility] [address] [place], [address] MCH (RBC) [Entitic mass] 30.0 pg Normal 27.0-32.0 [facility] Comment on above: Performed By: #### L 100.0100, L500.2500 #### [facility] [address] [place], [address] MCHC (RBC) [Mass/Vol] 31.8 g/dL Low 32-36 [facility] Comment on above: Performed By: #### L 100.0100, L500.2500 #### [facility] [address] [place], [address] MCV (RBC) [Entitic vol] 94.4 fL Normal 81-99 [facility] Comment on above: Performed By: #### L 100.0100, L500.2500 #### [facility] [address] [place], [address] Monocytes/100 WBC (Bld) 8.0 % Normal 0-10 [facility] Comment on above: Performed By: #### L 100.0100, L500.2500 #### [facility] [address] [place], [address] Neutrophils/100 WBC (Bld) 54.9 % Normal 47-70 [facility] [facility] Comment on above: Performed By: #### L 100.0100, L500.2500 #### [facility] [address] [place], [address] Nucleated RBC (Bld) [#/Vol] 0 10*3/uL Normal 0-5 [facility] Comment on above: Performed By: #### L 100.0100, L500.2500 #### [facility] [address] [place], [address] Platelet mean volume (Bld) [Entitic vol] 10.0 fL Normal 6.2-12.0 [facility] Comment on above: Performed By: #### L 100.0100, L500.2500 #### [facility] [address] [place], [address] Platelets (Bld) [#/Vol] 260 10*3/uL Normal 150-450 [facility] Comment on above: Performed By: #### L 100.0100, L500.2500 #### [facility] [address] [place], [address] RBC (Bld) [#/Vol] 4.10 10*6/uL Low 4.2-5.4 [facility] Comment on above: Performed By: #### L 100.0100, L500.2500 #### [facility] [address] [place], [address] RDW SD 42.9 fl Normal 35.1-43.9 [facility] Comment on above: Performed By: #### L 100.0100, L500.2500 #### [facility] [address] [place], [address] WBC (Bld) [#/Vol] 7.5 10*3/uL Normal 4.4-11.0 [facility] Comment on above: Performed By: #### L 100.0100, L500.2500 #### [facility] [address] [place], [address] Urine Cultureon 11-05-2023 [facility] Escherichia coli [place] Count >100,000 Escherichia coli: REACTION Ampicillin Islt YARITZA 8 S Ampicillin+Sulbac Islt YARITZA <=2 S ceFAZolin Islt YARITZA <=4 S Cefepime Islt YARITZA <=0.12 S cefTRIAXone Islt YARITZA <=0.25 S Ciprofloxacin Islt YARITZA <=0.25 S Ertapenem Islt YARITZA <=0.12 S B-Lactamase Extended Susc Islt NEG Gentamicin Islt YARITZA <=1 S Imipenem Islt YARITZA <=0.25 S levoFLOXacin Islt YARITZA <=0.12 S Nitrofurantoin Islt YARITZA <=16 S Pip+Tazo Islt YARITZA <=4 S Tobramycin Islt YARITZA <=1 S TMP SMX Islt YARITZA <=20 S Normal [facility] Comment on above: Performed By: #### L 100.0100, L500.2500 #### [facility] [address] [place], [address] Basic Metabolic Profile (BMP )on 11-04-2023 BUN/CRE 33.6 RATIO High 10-20 [facility] Comment on above: Performed By: #### L 100.0100, L500.2500 #### [facility] [address] [place], [address] CA,Total 8.3 mg/dL Low 8.5-10.1 [facility] Comment on above: Performed By: #### L 100.0100, L500.2500 #### [facility] [address] [place], [address] Chloride [Moles/Vol] 110 mmol/L High 98-107 [facility] Comment on above: Performed By: #### L 100.0100, L500.2500 #### [facility] [address] [place], [address] CO2 [Moles/Vol] 24.0 mmol/L Normal 21.0-32.0 [facility] Comment on above: Performed By: #### L 100.0100, L500.2500 #### [facility] [address] [place], [address] Creatinine [Mass/Vol] 0.60 mg/dL Normal 0.55-1.02 [facility] Comment on above: Result Comment: The validity of the calculated GFR GFRAA in patients over 70 years has not been determined. Clinical correlation is essential. Performed By: #### L 100.0100, L500.2500 #### [facility] [address] [place], [address] ECRCL 49.21 ml/min Normal [facility] Comment on above: Performed By: #### L 100.0100, L500.2500 #### [facility] [address] [place], [address] EST GFR - AA 126 mL/min Normal >60 [facility] Comment on above: Result Comment: Afri can Welsh GFR Calc Performed By: #### L 100.0100, L500.2500 #### [facility] [address] [place], [address] GAP 7 Normal 5-15 [facility] Comment on above: Performed By: #### L 100.0100, L500.2500 #### [facility] [address] [place], [address] GFR/1.73 sq M.predicted among non-blacks MDRD (S/P/Bld) [Vol rate/Area] 104 mL/min/{1.73_m2} Normal >60 [facility] Comment on above: Result Comment: Non- GFR Calc Performed By: #### L 100.0100, L500.2500 #### [facility] [address] [place], [address] Glucose [Mass/Vol] 95 mg/dL Normal 74-106 [facility] Comment on above: Performed By: #### L 100.0100, L500.2500 #### [facility] [address] [place], [address] Potassium [Moles/Vol] 3.7 mmol/L Normal 3.5-5.1 [facility] Comment on above: Performed By: #### L 100.0100, L500.2500 #### [facility] [address] [place], [address] Sodium [Moles/Vol] 141 mmol/L Normal 136-145 [facility] Comment on above: Performed By: #### L 100.0100, L500.2500 #### [facility] [address] [place], [address] Urea nitrogen [Mass/Vol] 20 mg/dL High 7-18 [facility] Comment on above: Performed By: #### L 100.0100, L500.2500 #### [facility] [address] [place], [address] CBC W/Diff, Automatedon 08-2 -2023 Absolute Lymph 2.26 X10 3/uL Normal 0.83-4.51 [facility] Comment on above: Performed By: #### L 100.0100, L500.2500 #### [facility] [address] [place], [address] Absolute Neut 4.4 X10 3/uL Normal 2.0-7.7 [facility] Comment on above: Performed By: #### L 100.0100, L500.2500 #### [facility] [address] [place], [address] Basophils/100 WBC (Bld) 1.0 % Normal 0-1 [facility] Comment on above: Performed By: #### L 100.0100, L500.2500 #### [facility] [address] [place], [address] Eosinophils/100 WBC (Bld) 5.1 % High 0-5 [facility] Comment on above: Performed By: #### L 100.0100, L500.2500 #### [facility] [address] [place], [address] Erythrocyte distribution width (RBC) [Ratio] 12.6 % Normal 11.6-14.6 [facility] Comment on above: Performed By: #### L 100.0100, L500.2500 #### [facility] [address] [place], [address] Hematocrit (Bld) [Volume fraction] 36.9 % Low 37-47 [facility] Comment on above: Performed By: #### L 100.0100, L500.2500 #### [facility] [address] [place], [address] Hemoglobin (Bld) [Mass/Vol] 12.0 g/dL Normal 12.0-15.0 [facility] Comment on above: Performed By: #### L 100.0100, L500.2500 #### [facility] [address] [place], [address] IG% 0.300 Normal 0.0-0.9 [facility] Comment on above: Result Comment: IG% - Immature Granulocytes (promyelocytes, myelocytes and metamyelocytes) > 1% indicates that a LEFT SHIFT is Present. Performed By: #### L 100.0100, L500.2500 #### [facility] [address] [place], [address] Lymphocytes/100 WBC (Bld) 28.9 % Normal 19-41 [facility] Comment on above: Performed By: #### L 100.0100, L500.2500 #### [facility] [address] [place], [address] MCH (RBC) [Entitic mass] 30.6 pg Normal 27.0-32.0 [facility] Comment on above: Performed By: #### L 100.0100, L500.2500 #### [facility] [address] [place], [address] MCHC (RBC) [Mass/Vol] 32.5 g/dL Normal 32-36 [facility] Comment on above: Performed By: #### L 100.0100, L500.2500 #### [facility] [address] [place], [address] MCV (RBC) [Entitic vol] 94.1 fL Normal 81-99 [facility] Comment on above: Performed By: #### L 100.0100, L500.2500 #### [facility] [address] [place], [address] Monocytes/100 WBC (Bld) 9.0 % Normal 0-10 [facility] Comment on above: Performed By: #### L 100.0100, L500.2500 #### [facility] [address] [place], [address] Neutrophils/100 WBC (Bld) 55.7 % Normal 47-70 [facility] Comment on above: Performed By: #### L 100.0100, L500.2500 #### [facility] [address] [place], [address] Nucleated RBC (Bld) [#/Vol] 0 10*3/uL Normal 0-5 [facility] Comment on above: Performed By: #### L 100.0100, L500.2500 #### [facility] [address] [place], [address] Platelet mean volume (Bld) [Entitic vol] 10.2 fL Normal 6.2-12.0 [facility] Comment on above: Performed By: #### L 100.0100, L500.2500 #### [facility] [address] [place], [address] Platelets (Bld) [#/Vol] 289 10*3/uL Normal 150-450 [facility] Comment on above: Performed By: #### L 100.0100, L500.2500 #### [facility] [address] [place], [address] RBC (Bld) [#/Vol] 3.92 10*6/uL Low 4.2-5.4 [facility] Comment on above: Performed By: #### L 100.0100, L500.2500 #### [facility] [address] [place], [address] RDW SD 43.3 fl Normal 35.1-43.9 [facility] Comment on above: Performed By: #### L 100.0100, L500.2500 #### [facility] [address] [place], [address] WBC (Bld) [#/Vol] 7.8 10*3/uL Normal 4.4-11.0 [facility] Comment on above: Performed By: #### L 100.0100, L500.2500 #### [facility] [address] [place], [address] Basic Metabolic Profile (BMP )on 11-03-2023 BUN/CRE 18.9 RATIO Normal 10-20 [facility] Comment on above: Order Comment: 'TROP ' Serial specimen #1, #2 or #3: 1 Performed By: #### L 100.0100, L500.2500 #### [facility] [address] [place], [address] CA,Total 9.3 mg/dL Normal 8.5-10.1 [facility] Comment on above: Order Comment: 'TROP ' Serial specimen #1, #2 or #3: 1 Performed By: #### L 100.0100, L500.2500 #### [facility] [address] [place], [address] Chloride [Moles/Vol] 106 mmol/L Normal 98-107 [facility] Comment on above: Order Comment: 'TROP ' Serial specimen #1, #2 or #3: 1 Performed By: #### L 100.0100, L500.2500 #### [facility] [address] [place], [address] CO2 [Moles/Vol] 26.0 mmol/L Normal 21.0-32.0 [facility] Comment on above: Order Comment: 'TROP ' Serial specimen #1, #2 or #3: 1 Performed By: #### L 100.0100, L500.2500 #### [facility] [address] [place], [address] Creatinine [Mass/Vol] 0.85 mg/dL Normal 0.55-1.02 [facility] Comment on above: Order Comment: 'TROP ' Serial specimen #1, #2 or #3: 1 Result Comment: The validity of the calculated GFR GFRAA in patients over 70 years has not been determined. Clinical correlation is essential. Performed By: #### L 100.0100, L500.2500 #### [facility] [address] [place], [address] EST GFR - AA 84 mL/min Normal >60 [facility] Comment on above: Order Comment: 'TROP ' Serial specimen #1, #2 or #3: 1 Result Comment: Afri can Welsh GFR Calc Performed By: #### L 100.0100, L500.2500 #### [facility] [address] [place], [address] GAP 8 Normal 5-15 [facility] Comment on above: Order Comment: 'TROP ' Serial specimen #1, #2 or #3: 1 Performed By: #### L 100.0100, L500.2500 #### [facility] [address] [place], [address] GFR/1.73 sq M.predicted among non-blacks MDRD (S/P/Bld) [Vol rate/Area] 69 mL/min/{1.73_m2} Normal >60 [facility] Comment on above: Order Comment: 'TROP ' Serial specimen #1, #2 or #3: 1 Result Comment: Non- GFR Calc Performed By: #### L 100.0100, L500.2500 #### [facility] [address] [place], [address] Glucose [Mass/Vol] 110 mg/dL High 74-106 [facility] Comment on above: Order Comment: 'TROP ' Serial specimen #1, #2 or #3: 1 Result Comment: Fast ing Glucose result from 100 to 125 mg/dL suggests IMPAIRED HOMEOSTASIS per A.D.A. criteria. Performed By: #### L 100.0100, L500.2500 #### [facility] [address] [place], [address] Potassium [Moles/Vol] 3.7 mmol/L Normal 3.5-5.1 [facility] Comment on above: Order Comment: 'TROP ' Serial specimen #1, #2 or #3: 1 Performed By: #### L 100.0100, L500.2500 #### [facility] [address] [place], [address] Sodium [Moles/Vol] 140 mmol/L Normal 136-145 [facility] Comment on above: Order Comment: 'TROP ' Serial specimen #1, #2 or #3: 1 Performed By: #### L 100.0100, L500.2500 #### [facility] [address] [place], [address] Urea nitrogen [Mass/Vol] 16 mg/dL Normal 7-18 [facility] Comment on above: Order Comment: 'TROP ' Serial specimen #1, #2 or #3: 1 Performed By: #### L 100.0100, L500.2500 #### [facility] [address] [place], [address] CBC W/Diff, Automatedon 08-2 -2023 Absolute Lymph 1.45 X10 3/uL Normal 0.83-4.51 [facility] Comment on above: Performed By: #### L 100.0100, L500.2500 #### [facility] [address] [place], [address] Absolute Neut 4.9 X10 3/uL Normal 2.0-7.7 [facility] Comment on above: Performed By: #### L 100.0100, L500.2500 #### [facility] [address] [place], [address] Basophils/100 WBC (Bld) 1.0 % Normal 0-1 [facility] Comment on above: Performed By: #### L 100.0100, L500.2500 #### [facility] [address] [place], [address] Eosinophils/100 WBC (Bld) 3.2 % Normal 0-5 [facility] Comment on above: Performed By: #### L 100.0100, L500.2500 #### [facility] [address] [place], [address] Erythrocyte distribution width (RBC) [Ratio] 12.3 % Normal 11.6-14.6 [facility] Comment on above: Performed By: #### L 100.0100, L500.2500 #### [facility] [address] [place], [address] Hematocrit (Bld) [Volume fraction] 41.6 % Normal 37-47 [facility] Comment on above: Performed By: #### L 100.0100, L500.2500 #### [facility] [address] [place], [address] Hemoglobin (Bld) [Mass/Vol] 13.3 g/dL Normal 12.0-15.0 [facility] Comment on above: Performed By: #### L 100.0100, L500.2500 #### [facility] [address] [place], [address] IG% 0.100 Normal 0.0-0.9 [facility] Comment on above: Result Comment: IG% - Immature Granulocytes (promyelocytes, myelocytes and metamyelocytes) > 1% indicates that a LEFT SHIFT is Present. Performed By: #### L 100.0100, L500.2500 #### [facility] [address] [place], [address] Lymphocytes/100 WBC (Bld) 20.2 % Normal 19-41 [facility] Comment on above: Performed By: #### L 100.0100, L500.2500 #### [facility] [address] [place], [address] MCH (RBC) [Entitic mass] 30.0 pg Normal 27.0-32.0 [facility] Comment on above: Performed By: #### L 100.0100, L500.2500 #### [facility] [address] [place], [address] MCHC (RBC) [Mass/Vol] 32.0 g/dL Normal 32-36 [facility] Comment on above: Performed By: #### L 100.0100, L500.2500 #### [facility] [address] [place], [address] MCV (RBC) [Entitic vol] 93.7 fL Normal 81-99 [facility] Comment on above: Performed By: #### L 100.0100, L500.2500 #### [facility] [address] [place], [address] Monocytes/100 WBC (Bld) 6.6 % Normal 0-10 [facility] Comment on above: Performed By: #### L 100.0100, L500.2500 #### [facility] [address] [place], [address] Neutrophils/100 WBC (Bld) 68.9 % Normal 47-70 [facility] Comment on above: Performed By: #### L 100.0100, L500.2500 #### [facility] [address] [place], [address] Nucleated RBC (Bld) [#/Vol] 0 10*3/uL Normal 0-5 [facility] Comment on above: Performed By: #### L 100.0100, L500.2500 #### [facility] [address] [place], [address] Platelet mean volume (Bld) [Entitic vol] 10.2 fL Normal 6.2-12.0 [facility] Comment on above: Performed By: #### L 100.0100, L500.2500 #### [facility] [address] [place], [address] Platelets (Bld) [#/Vol] 334 10*3/uL Normal 150-450 [facility] Comment on above: Performed By: #### L 100.0100, L500.2500 #### [facility] [address] [place], [address] RBC (Bld) [#/Vol] 4.44 10*6/uL Normal 4.2-5.4 [facility] Comment on above: Performed By: #### L 100.0100, L500.2500 #### [facility] [address] [place], [address] RDW SD 42.7 fl Normal 35.1-43.9 [facility] Comment on above: Performed By: #### L 100.0100, L500.2500 #### [facility] [address] [place], [address] WBC (Bld) [#/Vol] 7.2 10*3/uL Normal 4.4-11.0 [facility] Comment on above: Performed By: #### L 100.0100, L500.2500 #### [facility] [address] [place], [address] Chest 1 View (Portable)on Chest 1 View (Portable) [facility] Imaging Services [address] [place] [address] Chest 1 View (Portable) MR#: [id number] Acct: [id number] Name: BRIANNE COCHRAN Rep #: [id number] : 1945 F 78 From: Duane Ya MD PCP: Dr. Vera Pompa MD Status: REG ER Study: Chest 1 View (Portable) Date of Exam: 11/03/23 Exam# [id number] Ordering Dr: Carroll Weaver MD [id number] STUDY: X-RAY CHEST REASON FOR EXAM: Female, 78 years old. Weakness. TECHNIQUE: Single frontal view of the chest. COMPARISON: September 08, 2022 FINDINGS: Stable mild hyperinflation. There is no demonstrated pleural abnormality. Mild cardiomegaly unchanged. Normal mediastinum and colin. Normal visualized pulmonary arteries. Aortic tortuosity with calcification unchanged. Kyphoplasty of a lower thoracic vertebral body. Healed right ribs laterally unchanged. Small hiatal hernia. RAD/Chest 1 View (Portable) IMPRESSION: Stable chest with no acute or active cardiopulmonary disease. Electronically Signed: Duane Ya MD at 12:18 EDT , CC: Dr. Carroll Weaver MD; Dr. Vera Pompa MD Dip Dyer: Signed Normal [facility] Emergency Department Summary on 11-03-2023 Emergency Department Summary [facility] Medical Records Department [address] [place] [address] Emergency Department Summary 11/03/23 MR#: [id number] Acct: [id number] Name: BRIANNE COCHRAN Rep #: [id number] : 1945 78 From: Carroll Weaver MD PCP: Dr. Vera Pompa MD Status:ADM IN Location: MS3 [id number] HPI History of Present Illness Chief Complaint: Weakness Detail of Chief Complaint: Generalized weakness. Fatigue. Informant: patient and family Onset/Context/Timing Onset: Today and Yesterday Context: Gradual Onset Timing: Continuous Current Severity: Moderate Maximum Severity: Moderate Narrative Narrative: 78-year-old female history of eighth fib and hypothyroidism anemia. 62 send really felt well last 2 days complain generalized weakness and fatigue. Denies any vomiting had mild nausea yesterday it is resolved. No diarrhea or fever. No melena or dysuria. No chest pain or shortness of breath. Said today she does try to walk out of her house and she has so weak she had to have help. Prior similar symptoms: No Recent Illness/Hospitalizati on: No PFSH PFSH Medical History Non-smoker Sleep apnea Hypertension Migraines Chronic anemia Obesity Anxiety and depression GERD (gastroesophageal reflux disease) HLD (hyperlipidemia) PAF (paroxysmal atrial fibrillation) Fibromyalgia Osteoporosis Paroxysmal atrial fibrillation T12 compression fracture Closed right hip fracture Syncope Hypothyroid Home Medications ???Medication ???Instructions ???Recorded ???Last Taken ???Type alendronate 70 mg tablet 70 mg PO UD osteoporosis 09/07/22 Unknown History atorvastatin 20 mg tablet 20 mg PO QHS HLD 09/07/22 09/09/22 History fluoxetine 40 mg capsule 40 mg PO DAILY depression 09/07/22 09/10/22 History levothyroxine 75 mcg tablet 75 mcg PO DAILY thyroid 09/07/22 09/10/22 History omeprazole 20 mg capsule,delayed 20 mg PO DAILY GERD 09/07/22 09/10/22 History release calcium carbonate 500 mg (2.5 x 200 mg calcium (500 09/10/22 09/10/22 Rx mg)) PO TIDCM supplement #30 tabs oxycodone 5 mg tablet 5 mg PO Q6H PRN PRN Pain Score 09/28/22 Unknown Rx 1-10 7 days #28 tabs sennosides 8.6 mg-docusate sodium 2 tab PO BID 30 days #120 tabs 09/28/22 Unknown Rx 50 mg tablet (Stool Softener-Stimulant Laxative) meclizine 25 mg chewable tablet 25 mg PO TID PRN dizziness #14 tabs 05/25/23 Unknown Rx (Antivert) Allergy/AdvReac Type Severity Reaction Status Date / Time codeine Allergy Unknown Verified 11/03/23 11:11 codeine phosphate (From AdvReac Unknown Verified 11/03/23 11:11 Tylenol-Codeine #3) nabumetone (From Relafen) AdvReac Unknown Verified 11/03/23 11:11 naproxen AdvReac Unknown Verified 11/03/23 11:11 Family History Mother Cancer Father Cancer Surgical History S/P ORIF (open reduction internal fixation) fracture History of section H/O ovarian cystectomy History of total right hip replacement S/P kyphoplasty S/P ORIF (open reduction internal fixation) fracture Social History household members: spouse Smoking Status: Never smoker alcohol intake: never substance use type: does not use ROS ROS ED ROS Narrative Generalized weakness. Nausea resolved. No dysuria. No fever. No melena. No diarrhea. Review of Systems ROS Unobtainable: Denies due to encephalopathy Constitutional Constitutional ED: Denies chills or fever(s) Eyes Eyes: Denies blurry vision ENT ENT ED: Denies ear pain Cardiovascular Cardiovascular: Denies chest pain Respiratory/Chest Respiratory/Chest: Denies cough or dyspnea Gastrointestinal Gastrointestinal: Reports nausea; Denies abdominal pain, diarrhea or vomiting Genitourinary Genitourinary ED: Denies dysuria or hematuria Musculoskeletal Musculoskeletal: Denies arthralgias or back pain Integumentary Denies abscess or Abrasions Neurologic Neurologic: Denies headache(s) Psychiatric Psychiatric: Denies anxiety or depression Endocrine Endocrinology: Denies cold intolerance Hematologic/Lymphatic Hematologic/Lymphatic : Reports none Allergic/Immunologic Allergic/Immunologic ED: Denies mouth swelling, tongue swelling or urticaria EXAM Physical Exam Narrative Exam Narrative: 78-year-old female no acute distress sitting in bed. Family at bedside. Vital signs are stable afebrile. Pulse ox 96% on room air no signs hypoxia. H EENT exam unremarkable. No droop. No trauma mildly dry mucous membranes. Normal speech. Neck nontender no lymphadenopathy. Lungs clear to auscultation bilaterally. Heart regular rhythm no murmur. Chest wall nontender. Abdomen soft nontender. Moving all (more content not included)... Normal [facility] H AND P Exam - [place] 11-03-2023 H&P Exam - Hospitalist [facility] Medical Records Department [address] [place] [address] H P Exam - Hospitalist 11/03/23 1533 MR#: [id number] Acct: [id number] Name: BRIANNE COCHRAN Rep #: [id number] : 1945 78 From: James Sánchez MD PCP: Dr. Vera Pompa MD Status:ADM IN Location: AL3 [id number] HPI - General General Date of Admission: 11/03/23 Date of Service: 11/03/23 Chief Complaint: Generalized weakness, dizziness for last 2 days. HPI Narrative BRIANNE COCHRAN, is a 78 F was brought to ED for dizziness that started yesterday when she was not feeling well, generalized weakness and in bed all day yesterday. In the morning today she felt very weak and she could not climb down on steps. She said she could not walk and required help in order to walk. Her baseline is walking on cane. She also had nausea and felt like chills but denies fever. She does not have focal signs and symptoms pointing to TIA or stroke. In ED, UA shows positive for pyuria but she denies symptoms of burning micturition/dysuria, increased frequency or urgency or new symptoms. She had a UTI in the past Vital signs in the ED within normal limit. No fever. Labs, chest x-ray and EKG reviewed discussion assessment and. PFSH Medical History Non-smoker Sleep apnea Hypertension Migraines Chronic anemia Obesity Anxiety and depression GERD (gastroesophageal reflux disease) HLD (hyperlipidemia) PAF (paroxysmal atrial fibrillation) Fibromyalgia Osteoporosis Paroxysmal atrial fibrillation T12 compression fracture Closed right hip fracture Syncope Hypothyroid Home Medications ???Medication ???Instructions ???Recorded ???Last Taken ???Type alendronate 70 mg tablet 70 mg PO UD osteoporosis 09/07/22 Unknown History atorvastatin 20 mg tablet 20 mg PO QHS HLD 09/07/22 09/09/22 History fluoxetine 40 mg capsule 40 mg PO DAILY depression 09/07/22 09/10/22 History levothyroxine 75 mcg tablet 75 mcg PO DAILY thyroid 09/07/22 09/10/22 History omeprazole 20 mg capsule,delayed 20 mg PO DAILY GERD 09/07/22 09/10/22 History release calcium carbonate 500 mg (2.5 x 200 mg calcium (500 09/10/22 09/10/22 Rx mg)) PO TIDCM supplement #30 tabs oxycodone 5 mg tablet 5 mg PO Q6H PRN PRN Pain Score 09/28/22 Unknown Rx 1-10 7 days #28 tabs sennosides 8.6 mg-docusate sodium 2 tab PO BID 30 days #120 tabs 09/28/22 Unknown Rx 50 mg tablet (Stool Softener-Stimulant Laxative) meclizine 25 mg chewable tablet 25 mg PO TID PRN dizziness #14 tabs 05/25/23 Unknown Rx (Antivert) Allergy/AdvReac Type Severity Reaction Status Date / Time codeine Allergy Unknown Verified 11/03/23 11:11 codeine phosphate (From AdvReac Unknown Verified 11/03/23 11:11 Tylenol-Codeine #3) nabumetone (From Relafen) AdvReac Unknown Verified 11/03/23 11:11 naproxen AdvReac Unknown Verified 11/03/23 11:11 Family History Mother Cancer Father Cancer Surgical History S/P ORIF (open reduction internal fixation) fracture History of section H/O ovarian cystectomy History of total right hip replacement S/P kyphoplasty S/P ORIF (open reduction internal fixation) fracture Social History household members: spouse Smoking Status: Never smoker alcohol intake: never substance use type: does not use ROS ROS Narrative Constitutional: Reports acute onset of generalized fatigue and weakness. No fever. HEENT: Mild dizziness. No vertigo. No diplopia/loss of vision or hemianopia. Reports systems reviewed and no addt'l complaints, except as documented Respiratory/Chest: No acute shortness of breath or respiratory distress or wheezing. CVS: No chest pain pressure or tightness. No syncope. Gastrointestinal: Mild nausea but no vomiting. Denies coffee ground emesis, hematemesis or melena Genitourinary: Denies burning urination or new urinary tract symptoms Musculoskeletal: Denies acute joint pain or limited range of motion. No acute injury Neurologic: Denies seizure-like symptoms. No acute strokelike symptoms skin: No ulcer. No rash Endocrinology: Reports systems reviewed and no addt'l complaints, except as documented Hematologic/Lymphatic : Reports systems reviewed and no addt'l complaints, except as documented Rest 14 ROS are negative except as mentioned in HPI Vital Signs Vital Signs Vital Signs: 11/03/23 11:10 11/03/23 11:21 11/03/23 13:11 Temperature 98 F Temperature Source Temporal Pulse Rate 99 86 Respiratory Rate 12 17 Respiratory Effort Normal Non-Labored Respiratory Pattern Normal Blood Pressure 124/74 H 148/86 H Blood Pressure Mean 90 106 Pu (more content not included)... Normal [facility] L501.4020on 11-03-2023 TROPONIN-I HS 8 pg/mL Normal 3.0-54.0 [facility] Comment on above: Order Comment: 'TROP ' Serial specimen #1, #2 or #3: 1 Result Comment: Rose tapia Note: New Test Units and Gender Specific Reference Ranges. For more information see Policy Stat Procedure [place] High Sensitivity Troponin (TNIH) and attachments. Performed By: #### L 100.0100, L500.2500 #### [facility] Laboratory [facility] [place], [address] Magnesiumon 11-03-2023 Magnesium [Mass/Vol] 2.0 mg/dL Normal 1.6-2.6 [facility] Comment on above: Performed By: #### L 501.5200, L501.2300 #### [facility] Laboratory [address] [place], [address] Phosphoruson 11-03-2023 Phosphate [Mass/Vol] 3.6 mg/dL Normal 2.5-4.9 [facility] Comment on above: Performed By: #### L 501.5200, L501.2300 #### [facility] Laboratory [address] [place], [address] Urinalysis, Completeon 11-02 BACTERIA 4+ /hpf Normal None Seen [facility] Comment on above: Order Comment: CLEAN CATCH Performed By: #### L 400.0001 #### [facility] Laboratory [address] [place], [address] Mucus Ql (Urine sed) RARE Normal [facility] Comment on above: Order Comment: CLEAN CATCH Performed By: #### L 400.0001 #### [facility] [address] [place], [address] EPI,SQUAMOUS 0-5 SEEN Normal 5-10 [facility] Comment on above: Order Comment: CLEAN CATCH Performed By: #### L 400.0001 #### [facility] Laboratory [address] [place], [address] RBC 0-5 SEEN Normal 0-5 [facility] Comment on above: Order Comment: CLEAN CATCH Performed By: #### L 400.0001 #### [facility] Laboratory [address] [place], [address] WBC 10-25 SEEN Normal 0-5 [facility] Comment on above: Order Comment: CLEAN CATCH Performed By: #### L 400.0001 #### [facility] [address] [place], [address] CBC W Auto Differential pane l (Bld)on 08-29-2023 Basophils (Bld) [#/Vol] 0.07 10*3/uL [facility] Basophils/100 WBC (Bld) 0.9 % [facility] Differential cell count method Nom (Bld) Auto [facility] Eosinophils (Bld) [#/Vol] 0.39 10*3/uL [facility] Eosinophils/100 WBC (Bld) 4.8 % [facility] Erythrocyte distribution width (RBC) [Ratio] 12.8 % 11.5 - 15.0 % [facility] Hematocrit (Bld) [Volume fraction] 38.9 % 36.0 - 46.0 % [facility] Hemoglobin (Bld) [Mass/Vol] 12.4 g/dL 11.5 - 15.5 g/dL [facility] Immature granulocytes (Bld) [#/Vol] 0.03 10*3/uL [facility] Immature granulocytes/100 WBC (Bld) 0.4 % [facility] Lymphocytes (Bld) [#/Vol] 1.76 10*3/uL [facility] Lymphocytes/100 WBC (Bld) 21.7 % [facility] MCH (RBC) [Entitic mass] 30.5 pg 26. 0 - 34.0 pg [facility] MCHC (RBC) [Mass/Vol] 31.9 g/dL 30.5 - 36.0 g/dL [facility] MCV (RBC) [Entitic vol] 95.8 fL 80.0 - 100.0 fL [facility] Monocytes (Bld) [#/Vol] 0.68 10*3/uL [facility] Monocytes/100 WBC (Bld) 8.4 % [facility] Neutrophils (Bld) [#/Vol] 5.17 10*3/uL [facility] Neutrophils/100 WBC (Bld) 63.8 % [facility] Nucleated RBC (Bld) [#/Vol] [facility] Nucleated RBC/100 WBC (Bld) [Ratio] 0.0 % /100 WBC [facility] Platelet mean volume (Bld) [Entitic vol] 10.5 fL 9.0 - 12.7 fL [facility] Platelets (Bld) [#/Vol] 362 10*3/uL [facility] RBC (Bld) [#/Vol] 4.06 10*6/uL 3.90 - 5.2 0 m/uL [facility] WBC (Bld) [#/Vol] 8.10 10*3/uL [facility] Absolute lymphocyte countOrd ered By: Carroll Weaver on 05-25-2023 Lymphocytes Auto (Unsp spec) [#/Vol] 1.91 10*3/uL 0.83-4.51 [facility] Automated lymphocyte count a s percentage of total leukocytesOrdered By: Carroll Weaver on 05-25-2023 Lymphocytes/100 WBC Auto (Unsp spec) 25.8 % 19-41 [facility] Basophil percentageOrdered B y: Carroll Weaver on 05-25-2023 Basophils/100 WBC (Bld) 1.1 % 0-1 [facility] Chloride [Moles/Vol] 110 mmol/L 98-107 [facility] Eosinophils/100 WBC (Bld) 5.8 % 0-5 [facility] Glucose [Mass/Vol] 84 mg/dL 74-106 [facility] Hemoglobin (Bld) [Mass/Vol] 12.5 g/dL 12.0-15.0 [facility] Monocytes/100 WBC (Bld) 9.6 % 0-10 [facility] Neutrophils (Bld) [#/Vol] 4.2 10*3/uL 2.0-7.7 [facility] Neutrophils/100 WBC (Bld) 57.4 % 47-70 [facility] Potassium [Moles/Vol] 4.0 mmol/L 3.5-5.1 [facility] Sodium [Moles/Vol] 142 mmol/L 136-145 [facility] WBC (Bld) [#/Vol] 7.4 10*3/uL 4.4-11.0 [facility] Determination of erythrocyte mean corpuscular volume (MCV)Ordered By: Carroll Weaver on 05-25-2023 MCV (RBC) [Entitic vol] 96.6 fL 81-99 [facility] Erythrocyte distribution wid th ratioOrdered By: Carroll Weaver on 05-25-2023 Erythrocyte distribution width (RBC) [Ratio] 12.3 % 11.6-14.6 [facility] Erythrocyte distribution wid th standard deviationOrdered By: Carroll Weaver on 05-25-2023 Erythrocyte distribution width (RBC) [Entitic vol] 43.7 fL 35.1-43.9 [facility] Hematocrit Auto (Bld) [Volum e fraction]Ordered By: Carroll Weaver on 05-25-2023 Hematocrit (Bld) [Volume fraction] 39.2 % 37-47 [facility] Immature granulocytes/100 WB C Auto (Bld)Ordered By: Carroll Weaver on 05-25-2023 Immature granulocytes/100 WBC (Bld) 0.300 % 0.0-0.9 [facility] Comment on above: IG% - Immature Granu locytes (promyelocytes, myelocytes and metamyelocytes) > 1% indicates that a LEFT SHIFT is Present. Laboratory - Chemistry and C hemistry - challengeOrdered By: Carroll Weaver on 05-25-2023 CO2 [Moles/Vol] 23.0 mmol/L 21.0-32.0 [facility] Urea nitrogen/Creatinine [Mass ratio] 33.0 mg/mg 10-20 [facility] Laboratory - Hematology and Cell countsOrdered By: Carroll Weaver on 05-25-2023 MCH (RBC) [Entitic mass] 30.8 pg 27.0-32.0 [facility] MCHC (RBC) [Mass/Vol] 31.9 g/dL 32-36 [facility] Nucleated RBC/100 WBC (Bld) [Ratio] 0 % 0-5 [facility] Platelet mean volume (Bld) [Entitic vol] 9.8 fL 6.2-12.0 [facility] Platelets (Bld) [#/Vol] 301 10*3/uL 150-450 [facility] No Panel InformationOrdered By: Carroll Weaver on 05-25-2023 Estimated Creatinine Clearance Calc 50.10 ml/min [facility] Estimated GFR (MDRD) Amer 96 mL/min >60 [facility] Comment on above: GFR Calc Estimated GFR (MDRD) Non-Af Amer 79 mL/min >60 [facility] Comment on above: Non- GFR Calc RBC Auto (Bld) [#/Vol]Ordere d By: Carroll Weaver on 05-25-2023 RBC (Bld) [#/Vol] 4.06 10*6/uL 4.2-5.4 [facility] Serum or plasma calcium criss urement (mass/volume)Ordered By: Carroll Weaver on 05-25-2023 Calcium [Mass/Vol] 9.0 mg/dL 8.5-10.1 [facility] Serum or plasma creatinine m easurement (mass/volume)Ordered By: Carroll Weaver on 05-25-2023 Creatinine [Mass/Vol] 0.76 mg/dL 0.55-1.02 [facility] Comment on above: The validity of the calculated GFR & GFRAA in patients over 70 years has not been determined. Clinical correlation is essential. Serum or plasma urea nitroge n measurement (mass/volume)Ordered By: Carroll Weaver on 05-25-2023 Urea nitrogen [Mass/Vol] 25 mg/dL 7-18 [facility] Thin prep Papanicolaou smear with manual screeningOrdered By: Carroll Weaver on 05-25-2023 Thin prep Papanicolaou smear with manual screening 9 5-15 [facility] Absolute lymphocyte countOrd ered By: Odilon Rodríguez on 09-26-2022 Lymphocytes Auto (Unsp spec) [#/Vol] 1.63 10*3/uL 0.83-4.51 [facility] Basophil percentageOrdered B y: Odilon Rodríguez on 09-26-2022 Basophils/100 WBC (Bld) 1.5 % 0-1 [facility] Eosinophils/100 WBC (Bld) 4.2 % 0-5 [facility] Neutrophils (Bld) [#/Vol] 4.1 10*3/uL 2.0-7.7 [facility] Neutrophils/100 WBC (Bld) 61.1 % 47-70 [facility] WBC (Bld) [#/Vol] 6.7 10*3/uL 4.4-11.0 [facility] Blood erythrocytes count (nu mber/volume)Ordered By: Odilon Rodríguez on 09-26-2022 RBC (Bld) [#/Vol] 3.65 10*6/uL 4.2-5.4 [facility] Blood hemoglobin measurement (mass/volume)Ordered By: Odilon Rodríguez on 09-26-2022 Hemoglobin (Bld) [Mass/Vol] 11.0 g/dL 12.0-15.0 [facility] Blood lymphocytes/100 leukoc ytesOrdered By: Odilon Rodríguez on 09-26-2022 Lymphocytes/100 WBC (Bld) 24.5 % 19-41 [facility] Blood monocytes/100 leukocyt esOrdered By: Odilon Rodríguez on 09-26-2022 Monocytes/100 WBC (Bld) 8.4 % 0-10 [facility] Blood platelet mean volumeOr dered By: Odilon Rodríguez on 09-26-2022 Platelet mean volume (Bld) [Entitic vol] 9.3 fL 6.2-12.0 [facility] Determination of erythrocyte mean corpuscular volume (MCV)Ordered By: Odilon Rodríguez 09-26-2022 MCV (RBC) [Entitic vol] 96.7 fL 81-99 [facility] Hematocrit Auto (Bld) [Volum e fraction]Ordered By: Odilon Rodríguez 09-26-2022 Hematocrit (Bld) [Volume fraction] 35.3 % 37-47 [facility] Laboratory - Hematology and Cell countsOrdered By: Odilon Rodríguez 09-26-2022 Erythrocyte distribution width (RBC) [Entitic vol] 59.7 fL 35.1-43.9 [facility] Erythrocyte distribution width (RBC) [Ratio] 16.8 % 11.6-14.6 [facility] Immature granulocytes/100 WBC (Bld) 0.300 % 0.0-0.9 [facility] Comment on above: IG% - Immature Granu locytes (promyelocytes, myelocytes and metamyelocytes) > 1% indicates that a LEFT SHIFT is Present. MCH (RBC) [Entitic mass] 30.1 pg 27.0-32.0 [facility] Nucleated RBC/100 WBC (Bld) [Ratio] 0 % 0-5 [facility] MCHC Auto (RBC) [Mass/Vol]Or dered By: Odilon Rodríguez on 09-26-2022 MCHC (RBC) [Mass/Vol] 31.2 g/dL 32-36 [facility] Platelets bldOrdered By: Odilon Rodríguez on 09-26-2022 Platelets (Bld) [#/Vol] 584 10*3/uL 150-450 [facility] Basophil percentageOrdered B y: Celeste Prema on 09-25-2022 Chloride [Moles/Vol] 110 mmol/L 98-107 [facility] Glucose [Mass/Vol] 93 mg/dL 74-106 [facility] Potassium [Moles/Vol] 4.1 mmol/L 3.5-5.1 [facility] Sodium [Moles/Vol] 142 mmol/L 136-145 [facility] Laboratory - Chemistry and C hemistry - challengeOrdered By: Celeste Lloyd on 09-25-2022 CO2 [Moles/Vol] 25.0 mmol/L 21.0-32.0 [facility] Urea nitrogen/Creatinine [Mass ratio] 26.4 mg/mg 10-20 [facility] No Panel InformationOrdered By: Celeste Prema on 09-25-2022 Estimated Creatinine Clearance Calc 35.45 ml/min [facility] Estimated GFR (MDRD) Amer 108 mL/min >60 [facility] Comment on above: GFR Calc Estimated GFR (MDRD) Non-Af Amer 89 mL/min >60 [facility] Comment on above: Non- GFR Calc Serum or plasma calcium criss urement (mass/volume)Ordered By: Celeste Lloyd on 09-25-2022 Calcium [Mass/Vol] 8.6 mg/dL 8.5-10.1 [facility] Serum or plasma creatinine m easurement (mass/volume)Ordered By: Celeste Lloyd on 09-25-2022 Creatinine [Mass/Vol] 0.68 mg/dL 0.55-1.02 [facility] Comment on above: The validity of the calculated GFR & GFRAA in patients over 70 years has not been determined. Clinical correlation is essential. Serum or plasma urea nitroge n measurement (mass/volume)Ordered By: Celeste Lloyd on 09-25-2022 Urea nitrogen [Mass/Vol] 18 mg/dL 7-18 [facility] Thin prep Papanicolaou smear with manual screeningOrdered By: Celeste Lloyd on 09-25-2022 Thin prep Papanicolaou smear with manual screening 7 5-15 [facility] Basophil percentageOrdered B y: Celeste Lloyd on 09-13-2022 Basophil percentage 3.1 mg/dL 2.5-4.9 [facility] Stool gastrointestinal hemog lobin detection by immunologic methodOrdered By: Celeste Prema on 09-13-2022 Lower GI hemoglobin IA Ql (Stl) [facility] Basophil percentageOrdered B y: Celeste Comerperico on 09-11-2022 Bilirubin [Mass/Vol] 1.20 mg/dL 0.20-1.00 [facility] Comment on above: For patients on eltr ombopag therapy, use of Dimension [place] TBIL is not recommended. Protein [Mass/Vol] 5.7 g/dL 6.4-8.2 [facility] Basophil percentage 0 SEEN /hpf 0-5 [facility] Bilirubin Test strip Ql (U)O rdered By: Celeste Prema on 09-11-2022 Bilirubin Ql (U) Negative Negative [facility] Direct bilirubinOrdered By: Celeste Prema on 09-11-2022 Bilirubin.direct [Mass/Vol] 0.34 mg/dL 0.00-0.30 [facility] Iron measurement (mass/mass) Ordered By: Celeste Prema on 09-11-2022 Iron (Unsp spec) [Mass/Mass] 13 ug/dL 50-170 [facility] Ketones Test strip Ql (U)Ord ered By: Celeste Prema on 09-11-2022 Ketones Ql (U) 150 mg/dl Negative [facility] Comment on above: CRITICAL VALUE *HCRI TICAL VALUE VERIFIED. CALLED TO Giovanni LOYA RN [facility]09/11/22 0707 Gurvinder Etses.RESULTS READ BACK BY SAME. Laboratory - Chemistry and C hemistry - challengeOrdered By: Celeste Prema on 09-11-2022 ALP [Catalytic activity/Vol] 101 U/L 45-117 [facility] ALT [Catalytic activity/Vol] 19 U/L 13-56 [facility] Cobalamin (Vitamin B12) [Mass/Vol] 298 pg/mL 211-911 [facility] Globulin (S) [Mass/Vol] 3.8 g/dL 2.2-4.2 [facility] Magnesium [Mass/Vol] 2.0 mg/dL 1.6-2.6 [facility] Mucus LM Ql (Urine sed)Order ed By: Celeste Lloyd on 09-11-2022 Mucus Ql (Urine sed) 2+ /hpf [facility] Nitrite Test strip Ql (U)Ord ered By: Celeste Lloyd on 09-11-2022 Nitrite Ql (U) Negative Negative [facility] No Panel InformationOrdered By: Celeste Lloyd on 09-11-2022 Total Iron Binding Capacity 191 ug/dL 250-450 [facility] Protein Test strip Ql (U)Ord ered By: Celeste Lloyd on 09-11-2022 Protein Ql (U) 30 mg/dl Negative [facility] Serum or plasma albumin criss urement (mass/volume)Ordered By: Celeste Lloyd on 09-11-2022 Albumin [Mass/Vol] 1.9 g/dL 3.2-5.0 [facility] Serum or plasma ferritin trinity surement (mass/volume)Ordered By: Celeste Lloyd on 09-11-2022 Ferritin [Mass/Vol] 66 ng/mL 8-252 [facility] Serum or plasma folate measu rement (mass/volume)Ordered By: Celeste Lloyd on 09-11-2022 Folate [Mass/Vol] 19.90 ng/mL 3.1-55.4 [facility] Serum or plasma iron saturat ion measurement (mass fraction)Ordered By: Celeste Lloyd on 09-11-2022 Iron saturation [Mass fraction] 6.8 % 15.0-55.0 [facility] Squamous epithelial cells de tection in urine sediment by light microscopyOrdered By: Celeste Lloyd on 09-11-2022 Epithelial cells.squamous LM Ql (Urine sed) 0 SEEN /hpf 5-10 [facility] Thin prep Papanicolaou smear with manual screeningOrdered By: Celeste Lloyd on 09-11-2022 Thin prep Papanicolaou smear with manual screening 33 U/L 15-37 [facility] Urine blood detectionOrdered By: Celeste Lloyd on 09-11-2022 RBC Ql (U) 25 /ul Negative [facility] RBC Ql (U) 0-5 SEEN /hpf 0-5 [facility] Urine clarityOrdered By: Yola Lloyd on 09-11-2022 Clarity (U) Clear Clear [facility] Urine color determinationOrd ered By: Celeste Lloyd on 09-11-2022 Color (U) Yellow Yellow [facility] Urine glucose detectionOrder ed By: Celeste Lloyd on 09-11-2022 Glucose Ql (U) Normal mg/dl Normal [facility] Urine leukocyte esterase det ection by dipstickOrdered By: Celeste Lloyd on 09-11-2022 Leukocyte esterase Test strip Ql (U) 25 /ul Negative [facility] Urine pHOrdered By: Celeste delcid on 09-11-2022 pH (U) 6.0 [pH] 5.0 - 8.0 [facility] Urine sediment bacteria coun t by microscopy (number/high power field)Ordered By: Celeste Lloyd on 09-11-2022 Bacteria LM.HPF (Urine sed) [#/Area] Not Reportable [facility] Urine specific gravity measu rementOrdered By: Celeste Lloyd on 09-11-2022 Specific gravity (U) [Rel density] 1.025 1.002-1.030 [facility] Urobilinogen Auto test strip Ql (U)Ordered By: Celeste Lloyd on 09-11-2022 Urobilinogen Ql (U) Normal mg/dl Normal [facility] Basophil percentageOrdered B y: Saúl Manriquez on 09-10-2022 WBC (Bld) [#/Vol] 9.8 10*3/uL 4.4-11.0 [facility] Blood erythrocytes count (nu mber/volume)Ordered By: Saúl Manriquez on 09-10-2022 RBC (Bld) [#/Vol] 2.22 10*6/uL 4.2-5.4 [facility] Blood hemoglobin measurement (mass/volume)Ordered By: Saúl Manriquez on 09-10-2022 Hemoglobin (Bld) [Mass/Vol] 6.8 g/dL 12.0-15.0 [facility] Blood platelet mean volumeOr dered By: Saúl Manriquez on 09-10-2022 Platelet mean volume (Bld) [Entitic vol] 9.9 fL 6.2-12.0 [facility] Determination of erythrocyte mean corpuscular volume (MCV)Ordered By: Saúl Manriquez on 09-10-2022 MCV (RBC) [Entitic vol] 96.8 fL 81-99 [facility] Hematocrit Auto (Bld) [Volum e fraction]Ordered By: Saúl Manriquez on 09-10-2022 Hematocrit (Bld) [Volume fraction] 21.5 % 37-47 [facility] Laboratory - Hematology and Cell countsOrdered By: Saúl Manriquez on 09-10-2022 Erythrocyte distribution width (RBC) [Entitic vol] 47.0 fL 35.1-43.9 [facility] Erythrocyte distribution width (RBC) [Ratio] 13.2 % 11.6-14.6 [facility] MCH (RBC) [Entitic mass] 30.6 pg 27.0-32.0 [facility] MCHC Auto (RBC) [Mass/Vol]Or dered By: Saúl Manriquez on 09-10-2022 MCHC (RBC) [Mass/Vol] 31.6 g/dL 32-36 [facility] Platelets bldOrdered By: Alexy Manriquez on 09-10-2022 Platelets (Bld) [#/Vol] 214 10*3/uL 150-450 [facility] Absolute lymphocyte countOrd ered By: Luis Ashley on 09-09-2022 Lymphocytes Auto (Unsp spec) [#/Vol] 0.94 10*3/uL 0.83-4.51 [facility] Basophil percentageOrdered B y: Luis Ashley on 09-09-2022 Basophils/100 WBC (Bld) 0.3 % 0-1 [facility] Chloride [Moles/Vol] 111 mmol/L 98-107 [facility] Eosinophils/100 WBC (Bld) 0.1 % 0-5 [facility] Glucose [Mass/Vol] 122 mg/dL 74-106 [facility] Comment on above: Fasting Glucose resu lt from 100 to 125 mg/dL suggests IMPAIRED HOMEOSTASIS per A.D.A. criteria. Neutrophils (Bld) [#/Vol] 7.2 10*3/uL 2.0-7.7 [facility] Neutrophils/100 WBC (Bld) 78.0 % 47-70 [facility] Potassium [Moles/Vol] 4.1 mmol/L 3.5-5.1 [facility] Sodium [Moles/Vol] 140 mmol/L 136-145 [facility] Blood lymphocytes/100 leukoc ytesOrdered By: Luis Ashley on 09-09-2022 Lymphocytes/100 WBC (Bld) 10.2 % 19-41 [facility] Blood monocytes/100 leukocyt esOrdered By: Luis Ashley on 09-09-2022 Monocytes/100 WBC (Bld) 10.9 % 0-10 [facility] Laboratory - Chemistry and C hemistry - challengeOrdered By: Luis Ashley on 09-09-2022 CO2 [Moles/Vol] 23.0 mmol/L 21.0-32.0 [facility] Urea nitrogen/Creatinine [Mass ratio] 21.7 mg/mg 10-20 [facility] Laboratory - Hematology and Cell countsOrdered By: Luis Ashley on 09-09-2022 Immature granulocytes/100 WBC (Bld) 0.500 % 0.0-0.9 [facility] Comment on above: IG% - Immature Granu locytes (promyelocytes, myelocytes and metamyelocytes) > 1% indicates that a LEFT SHIFT is Present. Nucleated RBC/100 WBC (Bld) [Ratio] 0 % 0-5 [facility] No Panel InformationOrdered By: Luis Ashley on 09-09-2022 Estimated Creatinine Clearance Calc 49.24 ml/min [facility] Estimated GFR (MDRD) Amer 116 mL/min >60 [facility] Comment on above: GFR Calc Estimated GFR (MDRD) Non-Af Amer 96 mL/min >60 [facility] Comment on above: Non- GFR Calc Vitamin D 25-Hydroxy 81.1 ng/mL [facility] Comment on above: Vitamin D 25(OH) Sta tus Range Deficiency <20 ng/mL (50nmol/L) Insufficiency 20 - 30 ng/mL (50 - 75 nmol/L) Sufficiency 30 - 100 ng/mL (75 - 250 nmol/L) Toxicity >100 ng/mL (>250 nmol/L) Serum or plasma calcium criss urement (mass/volume)Ordered By: Luis Ashley on 09-09-2022 Calcium [Mass/Vol] 7.8 mg/dL 8.5-10.1 [facility] Serum or plasma creatinine m easurement (mass/volume)Ordered By: Luis Ashley on 09-09-2022 Creatinine [Mass/Vol] 0.64 mg/dL 0.55-1.02 [facility] Comment on above: The validity of the calculated GFR & GFRAA in patients over 70 years has not been determined. Clinical correlation is essential. Serum or plasma urea nitroge n measurement (mass/volume)Ordered By: Luis Ashley on 09-09-2022 Urea nitrogen [Mass/Vol] 14 mg/dL 7-18 [facility] Thin prep Papanicolaou smear with manual screeningOrdered By: Luis Ashley on 09-09-2022 Thin prep Papanicolaou smear with manual screening 6 5-15 [facility] Basophil percentageOrdered B y: Yessenia Andres on 09-08-2022 Bilirubin [Mass/Vol] 0.80 mg/dL 0.20-1.00 [facility] Comment on above: For patients on eltr ombopag therapy, use of Dimension [place] TBIL is not recommended. Protein [Mass/Vol] 6.7 g/dL 6.4-8.2 [facility] INR in Blood by Coagulation assayOrdered By: Pawel Raygoza on 09-08-2022 INR Coag (Bld) [Relative time] 1.1 {INR} [facility] Laboratory - Chemistry and C hemistry - challengeOrdered By: Yessenia Andres on 09-08-2022 ALP [Catalytic activity/Vol] 97 U/L 45-117 [facility] ALT [Catalytic activity/Vol] 22 U/L 13-56 [facility] Globulin (S) [Mass/Vol] 3.8 g/dL 2.2-4.2 [facility] Laboratory - CoagulationOrde red By: Pawel Raygoza on 09-08-2022 aPTT Coag (Bld) [Time] 27.3 s 24.1-36.2 [facility] PT Coag (PPP) [Time] 14.3 s 11.7-14.9 [facility] No Panel InformationOrdered By: Pawel Raygoza on 09-08-2022 Thyroid Stimulating Hormone (TSH) 0.59 uIU/mL 0.358-3.74 [facility] Serum or plasma albumin criss urement (mass/volume)Ordered By: Yessenia Andres on 09-08-2022 Albumin [Mass/Vol] 2.9 g/dL 3.2-5.0 [facility] Serum or plasma albumin/glob ulin mass ratioOrdered By: Yessenia White on 09-08-2022 Albumin/Globulin [Mass ratio] 0.8 {ratio} 0.9-2.4 [facility] Thin prep Papanicolaou smear with manual screeningOrdered By: Yessenia White on 09-08-2022 Thin prep Papanicolaou smear with manual screening 25 U/L 15-37 [facility] Absolute lymphocyte countOrd ered By: Dr. Wooten on 09-07-2022 Lymphocytes Auto (Unsp spec) [#/Vol] 1.37 10*3/uL 0.83-4.51 [facility] Amorphous sediment detection in urine sediment by light microscopyOrdered By: Dr. Wooten on 09-07-2022 Amorphous sediment LM Ql (Urine sed) 1+ URATE [facility] Basophil percentageOrdered B y: Dr. Wooten on 09-07-2022 Basophil percentage 0-5 SEEN /hpf 0-5 [facility] Basophils/100 WBC (Bld) 0.6 % 0-1 [facility] Chloride [Moles/Vol] 111 mmol/L 98-107 [facility] Eosinophils/100 WBC (Bld) 3.8 % 0-5 [facility] Glucose [Mass/Vol] 102 mg/dL 74-106 [facility] Comment on above: Fasting Glucose resu lt from 100 to 125 mg/dL suggests IMPAIRED HOMEOSTASIS per A.D.A. criteria. Neutrophils (Bld) [#/Vol] 5.5 10*3/uL 2.0-7.7 [facility] Neutrophils/100 WBC (Bld) 70.1 % 47-70 [facility] Potassium [Moles/Vol] 4.2 mmol/L 3.5-5.1 [facility] Sodium [Moles/Vol] 140 mmol/L 136-145 [facility] WBC (Bld) [#/Vol] 7.8 10*3/uL 4.4-11.0 [facility] Bilirubin Test strip Ql (U)O rdered By: Dr. Wooten on 09-07-2022 Bilirubin Ql (U) Negative Negative [facility] Blood erythrocytes count (nu mber/volume)Ordered By: Dr. Wooten on 09-07-2022 RBC (Bld) [#/Vol] 3.80 10*6/uL 4.2-5.4 [facility] Blood hemoglobin measurement (mass/volume)Ordered By: Dr. Wooten on 09-07-2022 Hemoglobin (Bld) [Mass/Vol] 11.7 g/dL 12.0-15.0 [facility] Blood lymphocytes/100 leukoc ytesOrdered By: Dr. Wooten on 09-07-2022 Lymphocytes/100 WBC (Bld) 17.5 % 19-41 [facility] Blood monocytes/100 leukocyt esOrdered By: Dr. Wooten on 09-07-2022 Monocytes/100 WBC (Bld) 7.7 % 0-10 [facility] Blood platelet mean volumeOr dered By: Dr. Wooten on 09-07-2022 Platelet mean volume (Bld) [Entitic vol] 9.8 fL 6.2-12.0 [facility] Culture, urineOrdered By: Agnieszka Andres on 09-07-2022 Bacteria identified Cx Nom (U) Escherichia coli [facility] Determination of erythrocyte mean corpuscular volume (MCV)Ordered By: Dr. Wooten on 09-07-2022 MCV (RBC) [Entitic vol] 94.7 fL 81-99 [facility] Hematocrit Auto (Bld) [Volum e fraction]Ordered By: Dr. Wooten on 09-07-2022 Hematocrit (Bld) [Volume fraction] 36.0 % 37-47 [facility] Ketones Test strip Ql (U)Ord ered By: Dr. Wooten on 09-07-2022 Ketones Ql (U) 5 mg/dl Negative [facility] Laboratory - Chemistry and C hemistry - challengeOrdered By: Dr. Wooten on 09-07-2022 CO2 [Moles/Vol] 22.0 mmol/L 21.0-32.0 [facility] Urea nitrogen/Creatinine [Mass ratio] 25.9 mg/mg 10-20 [facility] Laboratory - Hematology and Cell countsOrdered By: Dr. Wooten on 09-07-2022 Erythrocyte distribution width (RBC) [Entitic vol] 45.5 fL 35.1-43.9 [facility] Erythrocyte distribution width (RBC) [Ratio] 13.0 % 11.6-14.6 [facility] Immature granulocytes/100 WBC (Bld) 0.300 % 0.0-0.9 [facility] Comment on above: IG% - Immature Granu locytes (promyelocytes, myelocytes and metamyelocytes) > 1% indicates that a LEFT SHIFT is Present. MCH (RBC) [Entitic mass] 30.8 pg 27.0-32.0 [facility] Nucleated RBC/100 WBC (Bld) [Ratio] 0 % 0-5 [facility] MCHC Auto (RBC) [Mass/Vol]Or dered By: Dr. Wooten on 09-07-2022 MCHC (RBC) [Mass/Vol] 32.5 g/dL 32-36 [facility] Mucus LM Ql (Urine sed)Order ed By: Dr. Wooten on 09-07-2022 Mucus Ql (Urine sed) 0 SEEN /hpf [facility] Nitrite Test strip Ql (U)Ord ered By: Dr. Wooten on 09-07-2022 Nitrite Ql (U) Positive Negative [facility] No Panel InformationOrdered By: Dr. Wooten on 09-07-2022 Estimated Creatinine Clearance Calc 45.98 ml/min [facility] Estimated GFR (MDRD) Amer 89 mL/min >60 [facility] Comment on above: GFR Calc Estimated GFR (MDRD) Non-Af Amer 73 mL/min >60 [facility] Comment on above: Non- GFR Calc Platelets bldOrdered By: Dr. Wooten on 09-07-2022 Platelets (Bld) [#/Vol] 296 10*3/uL 150-450 [facility] Protein Test strip Ql (U)Ord ered By: Dr. Wooten on 09-07-2022 Protein Ql (U) 15 mg/dl Negative [facility] Serum or plasma calcium criss urement (mass/volume)Ordered By: Dr. Wooten on 09-07-2022 Calcium [Mass/Vol] 8.4 mg/dL 8.5-10.1 [facility] Serum or plasma creatinine m easurement (mass/volume)Ordered By: Dr. Wooten on 09-07-2022 Creatinine [Mass/Vol] 0.81 mg/dL 0.55-1.02 [facility] Comment on above: The validity of the calculated GFR & GFRAA in patients over 70 years has not been determined. Clinical correlation is essential. Serum or plasma urea nitroge n measurement (mass/volume)Ordered By: Dr. Wooten on 09-07-2022 Urea nitrogen [Mass/Vol] 21 mg/dL 7-18 [facility] Squamous epithelial cells de tection in urine sediment by light microscopyOrdered By: Dr. Wooten on 09-07-2022 Epithelial cells.squamous LM Ql (Urine sed) 0-5 SEEN /hpf 5-10 [facility] Thin prep Papanicolaou smear with manual screeningOrdered By: Dr. Wooten on 09-07-2022 Thin prep Papanicolaou smear with manual screening 7 5-15 [facility] Urine blood detectionOrdered By: Dr. Wooten on 09-07-2022 RBC Ql (U) 50 /ul Negative [facility] RBC Ql (U) 0-5 SEEN /hpf 0-5 [facility] Urine clarityOrdered By: Dr. Wooten on 09-07-2022 Clarity (U) Sl. Cloudy Clear [facility] Urine color determinationOrd ered By: Dr. Wooten on 09-07-2022 Color (U) Yellow Yellow [facility] Urine glucose detectionOrder ed By: Dr. Wooten on 09-07-2022 Glucose Ql (U) Normal mg/dl Normal [facility] Urine leukocyte esterase det ection by dipstickOrdered By: Dr. Wooten on 09-07-2022 Leukocyte esterase Test strip Ql (U) 25 /ul Negative [facility] Urine pHOrdered By: Dr. Farhat anderson on 09-07-2022 pH (U) 6.0 [pH] 5.0 - 8.0 [facility] Urine sediment bacteria coun t by microscopy (number/high power field)Ordered By: Dr. Wooten on 09-07-2022 Bacteria LM.HPF (Urine sed) [#/Area] RARE /hpf None Seen [facility] Urine specific gravity measu rementOrdered By: Dr. Wooten on 09-07-2022 Specific gravity (U) [Rel density] 1.020 1.002-1.030 [facility] Urobilinogen Auto test strip Ql (U)Ordered By: Dr. Wooten on 09-07-2022 Urobilinogen Ql (U) Normal mg/dl Normal [facility] GENOVEVA SCREENINGon 06-24-2021 [facility] Vital Signs Date Time Vital Sign Value Performing Clinician Facility 09-13-2024 16:48-0400 Body temperature 97.9 [degF] Dr. Vera Pompa MD Work Phone: [facility] 09-13-2024 16:48-0400 Diastolic blood pressure 86 mm[Hg] Dr. Vera Pompa MD Work Phone: [facility] 09-13-2024 16:48-0400 Heart rate 89 /min Dr. Vera Pompa MD Work Phone: [facility] 09-13-2024 16:48-0400 Respiratory rate 16 /min Dr. Vera Pompa MD Work Phone: [facility] 09-13-2024 16:48-0400 SaO2% (BldA) [Mass fraction] 99 % Dr. Vera Pompa MD Work Phone: [facility] 09-13-2024 16:48-0400 Systolic blood pressure 141 mm[Hg] Dr. Vera Pompa MD Work Phone: [facility] 09-13-2024 14:56-0400 Body height 149.[address] Vera Pompa MD Work Phone: [facility] 09-03-2024 11:57-0400 Body height 149.9 cm Vera Pompa MD Work Phone: [facility] 09-03-2024 11:57-0400 Body mass index (BMI) [Ratio] 26.63 kg/m2 Vera Pompa MD Work Phone: [facility] 09-03-2024 11:57-0400 Body weight 59.8 kg Vera Pompa MD Work Phone: [facility] 09-03-2024 11:57-0400 Diastolic blood pressure 78 mm[Hg] Vera Pompa MD Work Phone: [facility] 09-03-2024 11:57-0400 Heart rate 86 /min Vera Pompa MD Work Phone: [facility] 09-03-2024 11:57-0400 Respiratory rate 16 /min Vera Pompa MD Work Phone: [facility] 09-03-2024 11:57-0400 SaO2% (BldA) [Mass fraction] 99 % Vera Pompa MD Work Phone: [facility] 09-03-2024 11:57-0400 Systolic blood pressure 128 mm[Hg] Vera Pompa MD Work Phone: [facility] 08-21-2024 17:54-0400 Body temperature 97.4 [degF] Dr. Vera Pompa MD Work Phone: [facility] 08-21-2024 17:54-0400 Diastolic blood pressure 84 mm[Hg] Dr. Vera Pompa MD Work Phone: [facility] 08-21-2024 17:54-0400 Heart rate 74 /min Dr. Vera Pompa MD Work Phone: [facility] 08-21-2024 17:54-0400 Respiratory rate 16 /min Dr. Vera Pompa MD Work Phone: [facility] 08-21-2024 17:54-0400 SaO2% (BldA) [Mass fraction] 98 % Dr. Vera Pompa MD Work Phone: [facility] 08-21-2024 17:54-0400 Systolic blood pressure 168 mm[Hg] Dr. Vera Pompa MD Work Phone: [facility] 08-21-2024 15:44-0400 Body height 152.[address] Vera Pompa MD Work Phone: [facility] 06-21-2024 14:28-0400 Diastolic blood pressure 84 mm[Hg] Nuzhat Naik APRN.CNP Work Phone: [facility] 06-21-2024 14:28-0400 Systolic blood pressure 131 mm[Hg] Nuzhat Naik CORPORATE BOND TRADER.AUTOMATION ANALYST Work Phone: [facility] 06-21-2024 13:56-0400 Body height 152.4 cm Nuzhat Naik CORPORATE BOND TRADER.AUTOMATION ANALYST Work Phone: [facility] 06-21-2024 13:56-0400 Body mass index (BMI) [Ratio] 25.39 kg/m2 Nuzhat Naik CORPORATE BOND TRADER.AUTOMATION ANALYST Work Phone: [facility] 06-21-2024 13:56-0400 Body weight 58.97 kg Nuzhat Naik CORPORATE BOND TRADER.AUTOMATION ANALYST Work Phone: [facility] 06-21-2024 13:56-0400 Heart rate 84 /min Nuzhat Naik CORPORATE BOND TRADER.AUTOMATION ANALYST Work Phone: [facility] 06-21-2024 13:56-0400 SaO2% (BldA) [Mass fraction] 96 % Nuzhat Naik CORPORATE BOND TRADER.AUTOMATION ANALYST Work Phone: [facility] 05-25-2024 11:00-0400 Body temperature 97.9 [degF] Dr. Vera Pompa MD Work Phone: [facility] 05-25-2024 11:00-0400 Diastolic blood pressure 82 mm[Hg] Dr. Vera Pompa MD Work Phone: [facility] 05-25-2024 11:00-0400 Heart rate 75 /min Dr. Vera Pompa MD Work Phone: [facility] 05-25-2024 11:00-0400 Respiratory rate 16 /min Dr. Vera Pompa MD Work Phone: [facility] 05-25-2024 11:00-0400 SaO2% (BldA) [Mass fraction] 95 % Dr. Vera Pompa MD Work Phone: [facility] 05-25-2024 11:00-0400 Systolic blood pressure 158 mm[Hg] Dr. Vera Pompa MD Work Phone: 6(497)988-325436 [place] [address] 05-23-2024 13:17-0400 Inhaled oxygen flow rate 98 L/min Dr. Vera Pompa MD Work Phone: 1(464)145-540336 [place] [address] 05-22-2024 12:09-0400 Body mass index (BMI) [Ratio] 25.4 kg/m2 Dr. Vera Pompa MD Work Phone: 2(728)489-203436 [place] [address] 05-22-2024 12:09-0400 Body weight 59.[address] Vera Pompa MD Work Phone: 4(003)350-269336 [place] [address] 05-16-2024 13:39-0500 Body height 152.[address] Vera Pompa MD Work Phone: 3(980)389-869636 [place] [address] 05-15-2024 11:50-0500 Inhaled oxygen concentration 99 % Dr. Vera Pompa MD Work Phone: 8(701)[phone] [place] [address] 05-05-2024 19:00-0500 Diastolic blood pressure 86 mm[Hg] Dr. Vera Pompa MD Work Phone: 5(317)[phone] [place] [address] 05-05-2024 19:00-0500 Heart rate 95 /min Dr. Vera Pompa MD Work Phone: 9(950)364-500836 [place] [address] 05-05-2024 19:00-0500 Respiratory rate 18 /min Dr. Vera Pompa MD Work Phone: 6(420)321-680436 [place] [address] 05-05-2024 19:00-0500 SaO2% (BldA) [Mass fraction] 95 % Dr. Vera Pompa MD Work Phone: 2(188)934-100536 [place] [address] 05-05-2024 19:00-0500 Systolic blood pressure 159 mm[Hg] Dr. Vera Pompa MD Work Phone: 2(714)[phone] [place] [address] 05-05-2024 16:59-0500 Body temperature 97.9 [degF] Dr. Vera Pompa MD Work Phone: 3(062)771-625036 [place] [address] 05-05-2024 16:06-0500 Body mass index (BMI) [Ratio] 27 kg/m2 Dr. Vera Pompa MD Work Phone: [facility] 05-05-2024 16:06-0500 Body weight 62.[address] Vera Pompa MD Work Phone: [facility] 09-01-2023 09:43-0400 Body mass index (BMI) [Ratio] 27.24 kg/m2 Apryl Gorman CORPORATE BOND TRADER.AUTOMATION ANALYST Work Phone: [facility] 09-01-2023 09:43-0400 Body weight 61.69 kg Apryl Gorman CORPORATE BOND TRADER.AUTOMATION ANALYST Work Phone: [facility] 09-01-2023 09:43-0400 Diastolic blood pressure 80 mm[Hg] Apryl Gorman CORPORATE BOND TRADER.AUTOMATION ANALYST Work Phone: [facility] 09-01-2023 09:43-0400 Heart rate 83 /min Apryl Daniellef CORPORATE BOND TRADER.AUTOMATION ANALYST Work Phone: [facility] 09-01-2023 09:43-0400 Respiratory rate 16 /min Apryl Gorman CORPORATE BOND TRADER.AUTOMATION ANALYST Work Phone: [facility] 09-01-2023 09:43-0400 SaO2% (BldA) [Mass fraction] 95 % Apryl Gorman CORPORATE BOND TRADER.AUTOMATION ANALYST Work Phone: [facility] 09-01-2023 09:43-0400 Systolic blood pressure 114 mm[Hg] Apryl Gorman CORPORATE BOND TRADER.AUTOMATION ANALYST Work Phone: [facility] 08-29-2023 12:59-0400 Body mass index (BMI) [Ratio] 27.81 kg/m2 Julio Sheppard MD Work Phone: [facility] 08-29-2023 12:59-0400 Body temperature 98.29 [degF] Julio Sheppard MD Work Phone: [facility] 08-29-2023 12:59-0400 Body weight 63 kg Julio Sheppard MD Work Phone: [facility] 08-29-2023 12:59-0400 Diastolic blood pressure 84 mm[Hg] Julio Sheppard MD Work Phone: [facility] 08-29-2023 12:59-0400 Heart rate 99 /min Julio Sheppard MD Work Phone: [facility] 08-29-2023 12:59-0400 Respiratory rate 21 /min Julio Sheppard MD Work Phone: [facility] 08-29-2023 12:59-0400 SaO2% (BldA) [Mass fraction] 95 % Julio Sheppard MD Work Phone: [facility] 08-29-2023 12:59-0400 Systolic blood pressure 140 mm[Hg] Julio Sheppard MD Work Phone: [facility] 05-30-2023 12:27-0400 Body weight 63.05 kg Aprylyash Daniellef CORPORATE BOND TRADER.AUTOMATION ANALYST Work Phone: [facility] 05-30-2023 12:27-0400 Diastolic blood pressure 88 mm[Hg] Apryl Hernandezhof CORPORATE BOND TRADER.AUTOMATION ANALYST Work Phone: [facility] 05-30-2023 12:27-0400 Heart rate 90 /min Aprylyash Hernandezhof CORPORATE BOND TRADER.AUTOMATION ANALYST Work Phone: [facility] 05-30-2023 12:27-0400 Respiratory rate 16 /min Apryl Hernandezhof CORPORATE BOND TRADER.AUTOMATION ANALYST Work Phone: [facility] 05-30-2023 12:27-0400 SaO2% (BldA) [Mass fraction] 97 % Aprylyash Hernandezhof CORPORATE BOND TRADER.AUTOMATION ANALYST Work Phone: [facility] 05-30-2023 12:27-0400 Systolic blood pressure 136 mm[Hg] Apryl Tannhof CORPORATE BOND TRADER.AUTOMATION ANALYST Work Phone: [facility] 05-25-2023 17:35-0400 Body temperature 98.3 [degF] [facility] 05-25-2023 17:35-0400 Diastolic blood pressure 82 mm[Hg] [facility] 05-25-2023 17:35-0400 Heart rate 86 /min [facility] 05-25-2023 17:35-0400 Respiratory rate 16 /min [facility] 05-25-2023 17:35-0400 SaO2% (BldA) [Mass fraction] 95 % [facility] 05-25-2023 17:35-0400 Systolic blood pressure 149 mm[Hg] [facility] 05-25-2023 12:49-0400 Body height 149.86 cm [facility] 05-25-2023 12:49-0400 Body mass index (BMI) [Ratio] 27.7 kg/m2 [facility] 05-25-2023 12:49-0400 Body weight 62.32 kg [facility] 01-05-2023 12:51-0400 Body weight 61.24 kg Apryl Daniellef CORPORATE BOND TRADER.AUTOMATION ANALYST Work Phone: [facility] 01-05-2023 12:51-0400 Diastolic blood pressure 88 mm[Hg] Apryl Hernandezhof CORPORATE BOND TRADER.AUTOMATION ANALYST Work Phone: [facility] 01-05-2023 12:51-0400 Heart rate 86 /min Apryl Hernandezhof CORPORATE BOND TRADER.AUTOMATION ANALYST Work Phone: [facility] 01-05-2023 12:51-0400 Respiratory rate 16 /min Apryl Daniellef CORPORATE BOND TRADER.AUTOMATION ANALYST Work Phone: [facility] 01-05-2023 12:51-0400 SaO2% (BldA) [Mass fraction] 98 % Apryl Daniellef CORPORATE BOND TRADER.AUTOMATION ANALYST Work Phone: [facility] 01-05-2023 12:51-0400 Systolic blood pressure 128 mm[Hg] Apryl Hernandezhof CORPORATE BOND TRADER.AUTOMATION ANALYST Work Phone: [facility] 10-01-2022 09:50-0400 Body temperature 98.3 [degF] Dr. Vera Pompa Work Phone: [facility] 10-01-2022 09:50-0400 Diastolic blood pressure 70 mm[Hg] Dr. Vera Pompa Work Phone: 5(969)176-148954 [place] [address] 10-01-2022 09:50-0400 Heart rate 83 /min Dr. Vera Pompa Work Phone: 9(211)913-222836 [place] [address] 10-01-2022 09:50-0400 Respiratory rate 16 /min Dr. Vera Pompa Work Phone: 2(086)060-773336 [place] [address] 10-01-2022 09:50-0400 SaO2% (BldA) [Mass fraction] 99 % Dr. Vera Pompa Work Phone: 6(661)993-416536 [place] [address] 10-01-2022 09:50-0400 Systolic blood pressure 130 mm[Hg] Dr. Vera Pompa Work Phone: 3(399)172-666736 [place] [address] 09-28-2022 08:20-0400 Body mass index (BMI) [Ratio] 26.6 kg/m2 Dr. Vera Pompa Work Phone: 6(239)781-410336 [place] [address] 09-28-2022 08:20-0400 Body weight 61.[address] Vera Pompa Work Phone: 3(560)208-226936 [place] [address] 09-22-2022 12:01-0400 Body height 152.[address] Vera Pompa Work Phone: 5(505)418-838336 [place] [address] 09-10-2022 16:47-0400 Inhaled oxygen flow rate 1.5 L/min Dr. Vera Pompa Work Phone: 3(232)768-354036 [place] [address] 09-10-2022 13:29-0400 Body temperature 99.1 [degF] Dr. Vera Pompa Work Phone: 2(228)627-525436 [place] [address] 09-10-2022 13:29-0400 Diastolic blood pressure 74 mm[Hg] Dr. Vera Pompa Work Phone: 7(178)930-582736 [place] [address] 09-10-2022 13:29-0400 Heart rate 106 /min Dr. Vera Pompa Work Phone: 2(561)043-639036 [place] [address] 09-10-2022 13:29-0400 Inhaled oxygen flow rate 1.5 L/min Dr. Vera Pompa Work Phone: 5(038)758-939136 [place] [address] 09-10-2022 13:29-0400 Respiratory rate 16 /min Dr. Vera Pompa Work Phone: 9(995)396-814236 [place] [address] 09-10-2022 13:29-0400 SaO2% (BldA) [Mass fraction] 93 % Dr. Vera Pompa Work Phone: 1(760)867-158836 [place] [address] 09-10-2022 13:29-0400 Systolic blood pressure 127 mm[Hg] Dr. Vera Pompa Work Phone: 5(320)848-586736 [place] [address] 09-08-2022 14:16-0400 Body height 151.[address] Vera Pompa Work Phone: 6(872)371-944336 [place] [address] 09-08-2022 14:16-0400 Body mass index (BMI) [Ratio] 27.3 kg/m2 Dr. Vera Pompa Work Phone: 3(565)732-688336 [place] [address] 09-08-2022 14:16-0400 Body weight 63.[address] Vera Pompa Work Phone: 7(349)697-791536 [place] [address] 09-07-2022 20:03-0400 Body temperature 97 [degF] Dr. Vera Pompa Work Phone: 4(662)152-854736 [place] [address] 09-07-2022 20:03-0400 Diastolic blood pressure 91 mm[Hg] Dr. Vera Pompa Work Phone: 1(989)553-506436 [place] [address] 09-07-2022 20:03-0400 Heart rate 91 /min Dr. Vera Pompa Work Phone: 8(065)607-625036 [place] [address] 09-07-2022 20:03-0400 Respiratory rate 14 /min Dr. Vera Pompa Work Phone: 4(333)517-217436 [place] [address] 09-07-2022 20:03-0400 SaO2% (BldA) [Mass fraction] 92 % Dr. Vera Pompa Work Phone: 6(933)008-797836 [place] [address] 09-07-2022 20:03-0400 Systolic blood pressure 159 mm[Hg] Dr. Vera Pompa Work Phone: 1(481)059-094536 [place] [address] 09-07-2022 16:57-0400 Body height [address] Vera Pompa Work Phone: [facility] 09-07-2022 16:57-0400 Body mass index (BMI) [Ratio] 30.4 kg/m2 Dr. Vera Pompa Work Phone: [facility] 09-07-2022 16:57-0400 Body weight 74.[address] Vera Pompa Work Phone: [facility] 12-24-2021 12:09-0400 Diastolic blood pressure 90 mm[Hg] Apryl Hernandezhof CORPORATE BOND TRADER.AUTOMATION ANALYST Work Phone: [facility] 12-24-2021 12:09-0400 Systolic blood pressure 119 mm[Hg] Apryl Hernandezhof CORPORATE BOND TRADER.AUTOMATION ANALYST Work Phone: [facility] 12-24-2021 10:59-0400 Body weight 62.6 kg Apryl Hernandezhof CORPORATE BOND TRADER.AUTOMATION ANALYST Work Phone: [facility] 12-24-2021 10:59-0400 Heart rate 85 /min Apryl Hernandezhof CORPORATE BOND TRADER.AUTOMATION ANALYST Work Phone: [facility] 12-24-2021 10:59-0400 Respiratory rate 16 /min Apryl Hernandezhof CORPORATE BOND TRADER.AUTOMATION ANALYST Work Phone: [facility] 12-24-2021 10:59-0400 SaO2% (BldA) [Mass fraction] 96 % Aprylyash Hernandezhof CORPORATE BOND TRADER.AUTOMATION ANALYST Work Phone: [facility] 08-24-2021 10:53-0400 Body height 150.5 cm Shanta Washington CORPORATE BOND TRADER.AUTOMATION ANALYST Work Phone: [facility] 08-24-2021 10:53-0400 Body weight 63.05 kg Shanta Washington CORPORATE BOND TRADER.AUTOMATION ANALYST Work Phone: [facility] 08-24-2021 10:53-0400 Diastolic blood pressure 80 mm[Hg] Shanta Washington CORPORATE BOND TRADER.AUTOMATION ANALYST Work Phone: [facility] 08-24-2021 10:53-0400 Heart rate 83 /min Shanta Washington CORPORATE BOND TRADER.AUTOMATION ANALYST Work Phone: [facility] 08-24-2021 10:53-0400 SaO2% (BldA) [Mass fraction] 98 % Shanta Washington CORPORATE BOND TRADER.AUTOMATION ANALYST Work Phone: [facility] 08-24-2021 10:53-0400 Systolic blood pressure 132 mm[Hg] Shanta Washington CORPORATE BOND TRADER.AUTOMATION ANALYST Work Phone: [facility] 06-22-2021 11:38-0400 Body weight 63.19 kg Vera Pompa MD Work Phone: [facility] 06-22-2021 11:38-0400 Diastolic blood pressure 74 mm[Hg] Vera Pompa MD Work Phone: [facility] 06-22-2021 11:38-0400 Heart rate 68 /min Vera Pompa MD Work Phone: [facility] 06-22-2021 11:38-0400 Respiratory rate 16 /min Vera Pompa MD Work Phone: [facility] 06-22-2021 11:38-0400 Systolic blood pressure 118 mm[Hg] Vera Pompa MD Work Phone: [facility] Encounters Encounter Date Encounter Type Care Provider Facility Start: 09-18-2024 End: 09-18-2024 ambulatory Vera Pompa MD Work Phone: [facility] Comment on above: Allied Health Visit (Medication Adherence Outreach ) Start: 09-17-2024 End: 09-17-2024 ambulatory Flakito Roger RN [facility] Comment on above: JACQUES FOSTER RN ( Chart review per payor request) Start: 09-13-2024 End: 09-13-2024 Emergency department patient visit Dr. Vera Pompa MD Work Phone: -Emergency Department Work Phone: Start: 09-03-2024 End: 09-03-2024 Patient encounter procedure Vera Pompa MD Work Phone: [facility] Comment on above: Encounter for Medica re annual wellness exam (Primary Dx); Encounter for screening examination for other mental health and behavioral disorders; Osteoporosis, unspecified osteoporosis type, unspecified pathological fracture presence; Other specified hypothyroidism; Anemia, unspecified type; Hyperlipidemia, mixed; Primary lateral sclerosis (HCC); Major depressive disorder, single episode, in partial remission; skilled nursing (current) use of bisphosphonates; Long-term current use of proton pump inhibitor therapy; History of falling Start: 09-03-2024 End: 09-03-2024 ambulatory VERA POMPA Facility:[facility] Start: 08-28-2024 End: 08-28-2024 Refill Vera Pompa MD Work Phone: [facility] Comment on above: Refill Request Start: 08-22-2024 End: 08-28-2024 Refill Vera Pompa MD Work Phone: [facility] Comment on above: Refill Request Start: 08-21-2024 End: 08-21-2024 Emergency department patient visit Dr. Vera Pompa MD Work Phone: -Emergency Department Work Phone: Start: 07-03-2024 End: 07-03-2024 ambulatory Renea Leary RN Work Phone: [facility] Start: 07-03-2024 End: 07-03-2024 Coordination of care plan Renea Leary RN Work Phone: [facility] Comment on above: Care Coordination (/ ) Start: 06-22-2024 End: 06-22-2024 Telephone encounter Nuzhat Naik APRN.AUTOMATION ANALYST Work Phone: [facility] Start: 06-21-2024 End: 06-21-2024 Patient encounter procedure Nuzhat Naik APRN.AUTOMATION ANALYST Work Phone: [facility] Comment on above: Closed wedge kyle lópez fracture of T12 vertebra, sequela (Primary Dx); Gait instability Start: 06-21-2024 End: 06-21-2024 ambulatory [facility] Facility:[facility] Start: 06-21-2024 End: 06-21-2024 Subsequent hospital visit by physician X[facility] [employer] [facility] Comment on above: Closed wedge kyle lópez fracture of T11 vertebra, initial encounter ([facility]) [S22.080A] Start: 06-01-2024 End: 06-01-2024 ambulatory Luis Eduardo Banerjee MA [facility] [place] Start: 06-01-2024 End: 06-01-2024 Patient encounter procedure Luis Eduardo Banerjee MA [facility] [place] Comment on above: Population Health Na vigation Outreach ([employer] richard) Start: 05-31-2024 End: 05-31-2024 Refill [facility] [address] Comment on above: Refill Request Start: 05-25-2024 End: 05-25-2024 Telephone encounter Vera Pompa MD Work Phone: [facility] Comment on above: Follow HH Orders Start: 05-24-2024 End: 05-28-2024 Patient Outreach Vera Pompa MD Work Phone: [facility] Comment on above: Transition Of Care Start: 05-09-2024 End: 05-25-2024 Evaluation and management of inpatient Dr. Odilon Rodríguez MD -Transitional Care Unit Start: 05-05-2024 End: 05-09-2024 Evaluation and management of inpatient VERA POMPA Facility:[facility] Start: 05-05-2024 End: 05-05-2024 Emergency department patient visit Dr. Edmundo Judd MD -Emergency Department Work Phone: Start: 04-27-2024 End: 04-27-2024 ambulatory Luis Eduardo Banerjee MA [facility] [place] Start: 04-27-2024 End: 04-27-2024 Patient encounter procedure Luis Eduardo Banerjee MA [facility] [place] Comment on above: Population Health Na vigation Outreach ([employer] richard) Start: 12-05-2023 End: 12-30-2023 Telephone encounter pAryl Gorman APRN.CNP Work Phone: [facility] [place] Start: 11-08-2023 End: 11-08-2023 Refill Vear Pompa MD Work Phone: [facility] Comment on above: Refill Request Start: 11-07-2023 End: 11-30-2023 Patient Outreach Vera Pompa MD Work Phone: [facility] Comment on above: Transition Of Care Start: 11-03-2023 ambulatory [facility] Facility:[facility] Start: 11-03-2023 End: 11-05-2023 Evaluation and management of inpatient [facility] Facility:[facility] Start: 10-30-2023 End: 10-31-2023 Refill Luis Enrique Caicedo APRN.AUTOMATION ANALYST Work Phone: [facility] Comment on above: Refill Request Start: 10-21-2023 Refill Vera arriola MD Work Phone: [facility] Comment on above: Refill Request Start: 10-18-2023 Refill Vera arriola MD Work Phone: [facility] Comment on above: Refill Request Start: 10-07-2023 Refill Vera arriola MD Work Phone: [facility] Comment on above: Refill Request Start: 10-01-2023 Refill Luis Enrique PALACIO RN.AUTOMATION ANALYST Work Phone: [facility] Comment on above: Refill Request Start: 09-01-2023 End: 09-01-2023 Patient encounter procedure Apryl Gorman APRN.AUTOMATION ANALYST Work Phone: [facility] Comment on above: Hypothyroidism, unsp ecified type (Primary Dx); Ankle edema, bilateral; Hyperlipidemia, mixed; Anxiety with depression; Osteoporosis, unspecified osteoporosis type, unspecified pathological fracture presence Start: 08-30-2023 Telephone encounter Jeny lee APRN.AUTOMATION ANALYST Work Phone: [facility] Comment on above: Results Start: 08-29-2023 End: 08-29-2023 Office outpatient visit 25 minutes Julio Sheppard MD Work Phone: [facility] Comment on above: Bilateral leg edema (Primary Dx); Other specified hypothyroidism Start: 08-16-2023 Refill Luis Enrique PALACIO RN.AUTOMATION ANALYST Work Phone: [facility] Comment on above: Refill Request Start: 08-16-2023 Refill Vera arriola MD Work Phone: [facility] Comment on above: Refill Request Start: 08-10-2023 Telephone encounter Vera davies MD Work Phone: [facility] Comment on above: refill - short term Start: 06-07-2023 Refill Vera arriola MD Work Phone: [facility] Comment on above: Refill Request Start: 05-30-2023 End: 05-30-2023 Patient encounter procedure Apryl Gorman APRN.AUTOMATION ANALYST Work Phone: [facility] Comment on above: Hospital discharge f ollow-up (Primary Dx); Vertigo; Bilateral impacted cerumen Start: 05-25-2023 End: 05-25-2023 Emergency department patient visit [facility]-Emergency Department Work Phone: Start: 05-25-2023 End: 05-25-2023 Patient encounter procedure Julio Sheppard MD Work Phone: [facility] Comment on above: Dizziness (Primary D x) Start: 04-07-2023 Refill Vera arriola MD Work Phone: [address] [place] [address] Start: 01-28-2023 Telephone encounter Luis Enrique rivera CORPORATE BOND TRADER.AUTOMATION ANALYST Work Phone: [facility] Comment on above: Results Start: 01-06-2023 Telephone encounter Vera davies MD Work Phone: [facility] Start: 01-05-2023 End: 01-05-2023 Patient encounter procedure Apryl Gorman APRN.AUTOMATION ANALYST Work Phone: [facility] Comment on above: Closed fracture of l eft hip, sequela (Primary Dx); Acute blood loss anemia; Hyperlipidemia, mixed; Episode of recurrent major depressive disorder, unspecified depression episode severity (HCC); Osteoporosis, unspecified osteoporosis type, unspecified pathological fracture presence; Other specified hypothyroidism; Screening for colon cancer; Encounter for immunization Start: 12-27-2022 Telephone encounter Apryl Wilkerson milan GILL Work Phone: [facility] Comment on above: Orders (Medication R efill. ) Start: 12-09-2022 Refill Vera arriola MD Work Phone: [facility] Comment on above: Refill Request Start: 12-01-2022 End: 12-01-[address] Vera Pompa Work Phone: [facility] Work Phone: Start: 12-01-2022 End: 12-01-[address] Vera Pompa Work Phone: [facility]-Physical Therapy Work Phone: Start: 11-17-[address] Vera Pompa Work Phone: [facility]-Physical Therapy Work Phone: Start: 11-11-2022 End: 11-11-[address] Vera Pompa Work Phone: [facility] Work Phone: Start: 11-11-2022 End: 11-11-[address] Vera Pompa Work Phone: [facility]-Outpatient Bone Densitometry Work Phone: Start: 11-08-2022 ambulatory Mel Ye MA [facility] Comment on above: Population Health Na vigation Outreach ([employer]/) Start: 09-16-2022 [facility] [place] Comment on above: Population Health Na vigation Outreach (HCC) Start: 09-11-2022 Non-patient / Non-visit Dr. Alisa Pompa Work Phone: [facility] Work Phone: Start: 09-10-2022 End: 10-01-2022 Evaluation and management of inpatient Dr. Vera Pompa Work Phone: [facility]-Transitional Care Unit Start: 09-10-2022 Non-patient / Non-visit Dr. Alisa Pompa Work Phone: [facility] Work Phone: Start: 09-09-2022 Non-patient / Non-visit Dr. Alisa Pompa Work Phone: [facility] Work Phone: Start: 09-08-2022 Non-patient / Non-visit Dr. Alisa Pompa Work Phone: [facility] Work Phone: Start: 09-07-2022 End: 09-10-2022 Evaluation and management of inpatient Dr. Vera Pompa Work Phone: [facility]-Medical Surgical 3 Start: 09-07-2022 Non-patient / Non-visit Dr. Alisa Pompa Work Phone: [facility] Start: 08-10-2022 ambulatory Madyson Perry MA [facility] Comment on above: Population Health Na vigation Outreach (HCC) Start: 04-05-2022 Refill Luis Enrique PALACIO RN.AUTOMATION ANALYST Work Phone: [facility] Comment on above: Refill Request Start: 03-24-2022 Telephone encounter Vera davies MD Work Phone: [facility] Comment on above: Forms Start: 01-28-2022 Refill Vera arriola MD Work Phone: [facility] Comment on above: Refill Request Start: 12-24-2021 End: 12-24-2021 Patient encounter procedure Apryl Gorman APRN.AUTOMATION ANALYST Work Phone: [facility] Comment on above: Hyperlipidemia, mixe d (Primary Dx); Episode of recurrent major depressive disorder, unspecified depression episode severity (HCC); Osteoporosis, unspecified osteoporosis type, unspecified pathological fracture presence; Hypothyroidism, unspecified type; Vitamin D deficiency; Encounter for screening mammogram for malignant neoplasm of breast; Urge incontinence; Encounter for immunization Start: 12-05-2021 Refill Vera arriola MD Work Phone: [facility] Comment on above: Refill Request Start: 10-27-2021 Refill Vera arriola MD Work Phone: [facility] [place] Comment on above: Refill Request Start: 10-23-2021 Refill Vera arriola MD Work Phone: [facility] [place] Comment on above: Refill Request Start: 09-11-2021 Refill Vera arriola MD Work Phone: [facility] Comment on above: Refill Request Start: 08-24-2021 End: 08-24-2021 Patient encounter procedure Shanta Washington APRN.AUTOMATION ANALYST Work Phone: [facility] Comment on above: Heart burn Start: 08-14-2021 Refill Luis Enrique PALACIO RN.[facility] Work Phone: [facility] [place] Comment on above: Refill Request Start: 07-13-2021 Telephone encounter Luis Enrique rivera APRN.AUTOMATION ANALYST Work Phone: [facility] [place] Comment on above: Results Start: 06-24-2021 Documentation procedure Mammog teddy Coordinator [facility] Start: 06-24-2021 Letter encounter Mammography Coordinator [facility] Department Start: 06-24-2021 Telephone encounter Vera davies MD Work Phone: [facility] [place] Comment on above: Results Start: 06-24-2021 End: 06-24-2021 Subsequent hospital visit by physician Screen Mammo [facility] Comment on above: Encounter for screen ing mammogram for malignant neoplasm of breast [Z12.31] Start: 06-22-2021 End: 06-22-2021 Patient encounter procedure Vera Pompa MD Work Phone: [facility] [place] Comment on above: Episode of recurrent major depressive disorder, unspecified depression episode severity (HCC) (Primary Dx); Hyperlipidemia, mixed; Other specified hypothyroidism; Other osteoporosis without current pathological fracture; Vitamin D deficiency; Heart burn; Anemia, unspecified type; Encounter for screening mammogram for malignant neoplasm of breast Start: 04-10-2009 Patient encounter status Vera Pompa MD Work Phone: [facility] Work Phone: Procedures Date Procedure Procedure Detail Performing Clinician Start: 09-13-2024 Plain x-ray of pelvi s and lower extremity Dr. Vera Pompa MD Work Phone: Start: 09-13-2024 X-ray of knee, four or more views Dr. Vera Pompa MD Work Phone: Start: 05-24-[address] Vera Pompa MD Work Phone: Start: 05-11-2024 X-ray of chest, PA a nd lateral views Dr. Vera Pompa MD Work Phone: Start: 05-10-2024 Plain X-ray abdomen Dr. Vera Pompa MD Work Phone: Start: 05-06-2024 Antibody screen CYNTHIA TOMAS Comment on above: Order Comment: Speci men Type: BLOOD SPECIMENOrdering Facility: [facility] Address: [address] [place] [address] Performed By: #### T SCR ####[facility] BLOOD BANKCLIA [id number] [place] [address] [place] Start: 05-05-[address] Vera Pompa MD Work Phone: Start: 05-05-2024 Measurement of renal function Dr. Vera Pompa MD Work Phone: Comment on above: GFR Calc Start: 05-05-[address] Vera Pompa MD Work Phone: Comment on above: The serum:whole bloo d ethanol ratio is approximately 1.14and varies slightly with hematocrit. Medical Alcohol reference interval and critical value innon-tolerant individuals; 50 - 100 Impairment 100 Intoxication 100 - 250 Severe Poisoning 250 - 400 Deep/possible fatal coma Start: 05-05-2024 Plain x-ray of wrist Dr German Pompa MD Work Phone: Start: 05-05-2024 XR forearm, [address] Vera Pompa MD Work Phone: Start: 05-05-2024 CT of chest without contrast Dr. Vera Pompa MD Work Phone: Start: 05-25-2023 CT of head without contrast Start: 01-05-2023 INFLUENZA VACCINE, P RSV FREE, AGE 65+ YR, HIGH DOSE, QUADRIVALENT (FLUZONE HIGH-DOSE) Apryl Gorman CORPORATE BOND TRADER.AUTOMATION ANALYST Work Phone: Start: 11-11-2022 Dual energy X-ray absorptiometry Dr. Vera Pompa Work Phone: Start: 09-24-2022 Plain x-ray of pelvi s and lower extremity Dr. Vera Pompa Work Phone: Start: 09-13-2022 Measurement of occul t blood in stool specimen using immunoassay Dr. Vera Pompa Work Phone: Start: 09-08-2022 Fluoroscopic guidance Cathleen Pompa Work Phone: Start: 09-08-2022 Plain x-ray of pelvi s and lower extremity Dr. Vera Pompa Work Phone: Start: 09-08-2022 Open reduction of fr acture of femur with internal fixation Dr. Vera Pompa Work Phone: Start: 09-08-2022 Plain chest X-ray Dr. Duke Pompa Work Phone: Start: 09-07-2022 Plain chest X-ray Dr. Duke Pompa Work Phone: Start: 09-07-2022 Plain x-ray of pelvi s and lower extremity Dr. Vera Pompa Work Phone: Start: 09-07-[address] Vera Pompa Work Phone: Start: 12-24-2021 INFLUENZA SEASONAL QUADRIVALENT HIGH DOSE AGE 65+ Apryl Gorman BRIDGET Work Phone: Start: 07-03-2021 Lipid 1996 panel - S vineet or Plasma Vera Pompa MD Work Phone: Start: 06-24-2021 End: 06-24-2021 Mammography Vera Pompa MD Work Phone: Start: 01-01-2019 Mammography Vera mendes MD Work Phone: Plan of Treatment Date Care Activity Detail Author Start: 04-29-2028 Urine microalbumin profile DTa P,Tdap,Td Vaccine (4 - Td or Tdap) [facility] Start: 04-04-2028 Urine microalbumin profile [facility] Start: 05-09-2027 [facility] Start: 08-28-2026 [facility] Start: 07-03-2026 Lipid 1996 panel - S vineet or Plasma Lipid Screening [facility] Start: 07-03-2026 Lipid panel Lipid Screening 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 Annual PCP Team Chronic Disease Visit [facility] Start: 09-03-2025 Anxiety Screening Anxiety Screening [facility] Start: 09-03-2025 Covid-19 Vaccine ( season) Covid-19 Vaccine () [facility] Comment on above: Postponed from 11/12 (Declined at this time) Start: 11-12-2024 Influenza vaccination Influenza Vacc ine (#1) [facility] Start: 09-13-2024 [facility] Start: 09-03-2024 End: 12-03-2024 CBC panel - Blood by Automated count COMPLETE BLOOD COUNT Lab Routine Anemia, unspecified type Expected: 09/03/2024 (Approximate), Expires: 12/03/2024 [facility] Comment on above: Expected: 09/03/2024 (Approximate), Expires: 12/03/2024 Start: 09-03-2024 End: 12-03-2024 Comprehensive metabolic 2000 panel - Serum or Plasma COMPREHENSIVE METABOLIC PANEL Lab Routine Hyperlipidemia, mixed Expected: 09/03/2024 (Approximate), Expires: 12/03/2024 [facility] Work Phone: Comment on above: Expected: 09/03/2024 (Approximate), Expires: 12/03/2024 Start: 09-03-2024 End: 12-03-2024 Lipid 1996 panel - Serum or Plasma LIPID PANEL, FASTING Lab Routine Hyperlipidemia, mixed Expected: 09/03/2024 (Approximate), Expires: 12/03/2024 [facility] Comment on above: Expected: 09/03/2024 (Approximate), Expires: 12/03/2024 Start: 09-03-2024 End: 12-03-2024 Thyrotropin [Units/volume] in Serum or Plasma THYROID STIMULATING HORMONE Lab Routine Other specified hypothyroidism Expected: 09/03/2024 (Approximate), Expires: 12/03/2024 [facility] Comment on above: Expected: 09/03/2024 (Approximate), Expires: 12/03/2024 Start: 09-03-2024 End: 09-03-2024 Patient encounter procedure 09/03/2024 12:00 PM EDT Office Visit [facility] [address] [place] [id number] Vera Pompa MD [address] [place] [phone] medicare wellness/BP check [facility] Comment on above: medicare wellness/BP check Start: 08-31-2024 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 Annual PCP Team Chronic Disease Visit [facility] Start: 08-21-2024 [facility] Start: 08-21-2024 Control nasal hemorr jad anterior simple CONTROL OF NOSEBLEED [facility] Start: 07-03-2024 DIABETES SCREEN DIABETES SCREEN [facility] Start: 07-03-2024 Diabetes Screening Diabetes Screenin g [facility] Start: 06-18-2024 End: 06-18-2024 Patient encounter procedure [employer] [employer]REATH Comment on above: XR THORACO LUMBAR JU NCT 2V AP/LAT 6 week hosp f/u XR THORACOLUMBAR AP/ LAT Start: 05-31-2024 End: 05-31-2024 Patient encounter procedure 05/31/2024 2:20 PM EDT Office Visit Family Medicine [facility] [address] [place] [id number] Vera Pompa MD [address] [place] [phone] Hospital follow up Family [facility] Comment on above: Hospital follow up Start: 05-29-2024 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 Annual PCP Team Chronic Disease Visit [facility] Start: 05-25-2024 Patient discharge [facility] Start: 05-24-2024 Developing a treatme nt plan [facility] Start: 05-24-2024 Development of care plan [facility] Start: 05-24-2024 [facility] Start: 05-22-2024 Referral to service [facility] Start: 05-17-2024 End: 05-17-2024 Patient encounter procedure 05/17/2024 2:00 PM EST Office Visit Family Medicine [facility] [address] [place] [address] Vera Pompa MD [address] [place] [phone] follow up, influenza, hcc gap closure, review due Family [facility] Comment on above: follow up, influenza , hcc gap closure, review due hm Start: 05-11-2024 Speech therapy management [facility] Start: 05-10-2024 Speech therapy assessment [facility] Start: 05-10-2024 Development of care plan [facility] Start: 05-10-2024 Developing a treatme nt plan [facility] Start: 05-10-2024 Following clinical p athway protocol [facility] Start: 05-10-2024 End: 05-10-2024 [facility] Start: 05-10-2024 Application of device [facility] Start: 05-09-2024 Speech therapy assessment [facility] Start: 05-09-2024 Following clinical p athway protocol [facility] Start: 05-09-2024 Admission procedure [facility] Start: 05-09-2024 Introduction of urin rosanne catheter [facility] Start: 05-09-2024 Measuring intake and output [facility] Start: 05-09-2024 Patient referral to dietitian [facility] Start: 05-09-2024 Referral to occupati onal therapist [facility] Start: 05-09-2024 Referral to service [facility] Start: 05-09-2024 Vital signs measurements [facility] Start: 05-09-2024 [facility] Start: 05-05-2024 [facility] Start: 03-14-2024 Advance Directive Discussion Advance Directive Discussion [facility] Start: 03-14-2024 Medicare Advantage A nnual Wellness Visit Medicare Advantage Annual Wellness Visit [facility] Start: 01-18-2024 End: 01-18-2024 Patient encounter procedure 01/18/2024 3:00 PM EST Office Visit Family Mirian Ramos [address] [place] [address] Apryl Gorman, CORPORATE BOND TRADER.AUTOMATION ANALYST [address] [place] [address] 4 month follow up Family Mirian Ramos Comment on above: 4 month follow up Start: 01-06-2024 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 Annual PCP Team Chronic Disease Visit [facility] Start: 12-30-2023 End: 12-30-2023 Patient encounter procedure 12/30/2023 10:00 AM EDT Office Visit Family Mirian Ramos [address] [place] [id number] Apryl Gorman, CORPORATE BOND TRADER.AUTOMATION ANALYST [address] [place] [address] 4 month follow up and labs [facility] Comment on above: 4 month follow up an d labs Start: 12-18-2023 DIABETES SCREEN DIABETES SCREEN [facility] Start: 11-15-2023 End: 11-15-2023 Patient encounter procedure 11/15/2023 11:20 AM EDT Office Visit Family Medicine [facility] [address] [facility] [place] [address] Apryl Gorman, CORPORATE BOND TRADER.AUTOMATION ANALYST [address] [place], [place] [phone] TCM 14 day [facility] Hospital f/u [facility] Comment on above: TCM 14 day [facility] Hospi taylor f/u Start: 11-13-2023 Covid-19 Vaccine ( season) Covid-19 Vaccine ( season) [facility] Start: 11-13-2023 Covid-19 Vaccine ( season) Covid-19 Vaccine ( season) [facility] Start: 11-13-2023 Influenza vaccination Influenza Vacc ine (#1) [facility] Start: 10-05-2023 ANNUAL PCP TEAM PUGGER HELPER ALEXY DISEASE VISIT ANNUAL PCP TEAM CHRONIC DISEASE VISIT [facility] Start: 10-01-2023 End: 12-31-2023 Thyrotropin [Units/volume] in Serum or Plasma THYROID STIMULATING HORMONE Lab Routine Hypothyroidism, unspecified type Expected: 10/01/2023, Expires: 12/31/2023 [facility] Work Phone: Comment on above: Expected: 10/01/2023 , Expires: 12/31/2023 Start: 10-01-2023 End: 12-31-2023 Thyroxine (T4) free [Mass/volume] in Serum or Plasma T4 FREE/FREE THYROXINE Lab Routine Hypothyroidism, unspecified type Expected: 10/01/2023, Expires: 12/31/2023 [facility] Comment on above: Expected: 10/01/2023 , Expires: 12/31/2023 Start: 09-01-2023 End: 12-01-2023 Lipid 1996 panel - Serum or Plasma LIPID PANEL BASIC Lab Routine Hyperlipidemia, mixed Expected: 09/01/2023, Expires: 12/01/2023 [facility] Comment on above: Expected: 09/01/2023 , Expires: 12/01/2023 Start: 09-01-2023 End: 09-01-2023 Patient encounter procedure 09/01/2023 11:00 AM EDT Office Visit Family [facility] [place] [address] [place] [address] Apryl Gorman APRN.AUTOMATION ANALYST [address] [place] [address] f/u leg swelling and lab results [facility] Comment on above: f/u leg swelling and lab results Start: 08-29-2023 End: 11-28-2023 Comprehensive metabolic 2000 panel - Serum or Plasma [facility] Work Phone: Comment on above: Expected: 08/29/2023 , Expires: 11/28/2023 Start: 08-29-2023 End: 11-28-2023 Thyrotropin [Units/volume] in Serum or Plasma [facility] Comment on above: Expected: 08/29/2023 , Expires: 11/28/2023 Start: 05-25-2023 [facility] Start: 03-14-2023 Advance Directive Discussion Advance Directive Discussion [facility] Start: 12-24-2022 ANNUAL PCP TEAM PUGGER HELPER ALEXY DISEASE VISIT ANNUAL PCP TEAM CHRONIC DISEASE VISIT [facility] Start: 11-12-2022 Covid-19 Vaccine ( season) Covid-19 Vaccine ( season) [facility] Start: 11-12-2022 Influenza vaccination [facility] Start: 10-21-2022 RSV Vaccine (1 - 1-d ose 75+ series) RSV Vaccine (1 - 1-dose 75+ series) [facility] Start: 10-03-2022 Development of care plan [facility] Start: 10-01-2022 Patient discharge [facility] Start: 09-24-2022 [facility] Start: 09-11-2022 Development of care plan [facility] Start: 09-11-2022 Developing a treatme nt plan [facility] Start: 09-11-2022 Removal of urinary catheter [facility] Start: 09-10-2022 Admission procedure [facility] Start: 09-10-2022 Measuring intake and output [facility] Start: 09-10-2022 Patient referral to dietitian [facility] Start: 09-10-2022 Referral to occupati onal therapist [facility] Start: 09-10-2022 Referral to service [facility] Start: 09-10-2022 Vital signs measurements [facility] Start: 09-10-2022 End: 09-10-2022 [facility] Start: 09-10-2022 Following clinical p athway protocol [facility] Start: 09-10-2022 Patient discharge [facility] Start: 09-10-2022 End: 09-10-2022 Administration of blood product [facility] Start: 09-08-2022 Ambulation therapy management [facility] Start: 09-08-2022 Application of device [facility] Start: 09-08-2022 Exercises [facility] Start: 09-08-2022 Following clinical p athway protocol [facility] Start: 09-08-2022 Introduction of urin rosanne catheter [facility] Start: 09-08-2022 Neurovascular assessment [facility] Start: 09-08-2022 Patient education [facility] Start: 09-08-2022 Provision of activit y privileges [facility] Start: 09-08-2022 Recommendation to co ntinue with treatment [facility] Start: 09-08-2022 Referral to occupati onal therapist [facility] Start: 09-08-2022 Referral to service [facility] Start: 09-08-2022 Vital signs measurements [facility] Start: 09-08-2022 Wound care [facility] Start: 09-08-2022 End: 09-08-2022 [facility] Start: 09-08-2022 [facility] Start: 09-08-2022 End: 09-08-2022 Measuring intake and output [facility] Start: 09-07-2022 Following clinical p athway protocol [facility] Start: 09-07-2022 End: 09-07-2022 [facility] Start: 09-07-2022 Application of ice c ollar, cap or bag [facility] Start: 09-07-2022 Aspiration precautions [facility] Start: 09-07-2022 Assessment of risk o f venous thromboembolism [facility] Start: 09-07-2022 Bedrest [facility] Start: 09-07-2022 Consultation [facility] Start: 09-07-2022 Fall prevention [facility] Start: 09-07-2022 Inhalation therapy procedure [facility] Start: 09-07-2022 Insertion of cathete r into peripheral vein [facility] Start: 09-07-2022 Introduction of urin rosanne catheter [facility] Start: 09-07-2022 Neurovascular assessment [facility] Start: 09-07-2022 Oxygen therapy [facility] Start: 09-07-2022 Providing care accor ding to standard [facility] Start: 09-07-2022 Referral to occupati onal therapist [facility] Start: 09-07-2022 Referral to service [facility] Start: 09-07-2022 Skin care [facility] Start: 09-07-2022 Measuring intake and output [facility] Start: 09-07-2022 Admission procedure [facility] Start: 09-07-2022 Verification routine [facility] Start: 09-07-2022 [facility] Start: 06-24-2022 End: 08-24-2022 25-hydroxyvitamin D3 [Mass/volume] in Serum or Plasma VITAMIN D 25 HYDROXY Lab Routine Vitamin D deficiency Expected: 06/24/2022, Expires: 08/24/2022 [facility] Work Phone: Comment on above: Expected: 06/24/2022 , Expires: 08/24/2022 Start: 06-24-2022 End: 08-24-2022 CBC W Auto Differential panel - Blood CBC + DIFF Lab Routine Osteoporosis, unspecified osteoporosis type, unspecified pathological fracture presence Expected: 06/24/2022, Expires: 08/24/2022 [facility] Work Phone: Comment on above: Expected: 06/24/2022 , Expires: 08/24/2022 Start: 06-24-2022 End: 08-24-2022 Comprehensive metabolic 2000 panel - Serum or Plasma COMP METABOLIC PANEL Lab Routine Hyperlipidemia, mixed Expected: 06/24/2022, Expires: 08/24/2022 [facility] Work Phone: Comment on above: Expected: 06/24/2022 , Expires: 08/24/2022 Start: 06-24-2022 End: 08-24-2022 Lipid 1996 panel - Serum or Plasma LIPID PANEL BASIC Lab Routine Hyperlipidemia, mixed Expected: 06/24/2022, Expires: 08/24/2022 [facility] Work Phone: Comment on above: Expected: 06/24/2022 , Expires: 08/24/2022 Start: 06-24-2022 Mammography MAMMOGRAM [facility] Start: 06-24-2022 End: 01-23-2023 Screening mammography bi 2-view breast inc cad [facility] SCREENING Radiology Routine Encounter for screening mammogram for malignant neoplasm of breast Expected: 06/24/2022, Expires: 01/23/2023 [facility] Work Phone: Comment on above: Expected: 06/24/2022 , Expires: 01/23/2023 Start: 06-24-2022 End: 08-24-2022 Thyrotropin [Units/volume] in Serum or Plasma TSH BLD Lab Routine Hypothyroidism, unspecified type Expected: 06/24/2022, Expires: 08/24/2022 [facility] Work Phone: Comment on above: Expected: 06/24/2022 , Expires: 08/24/2022 Start: 06-22-2022 ANNUAL PCP TEAM PUGGER HELPER ALEXY DISEASE VISIT ANNUAL PCP TEAM CHRONIC DISEASE VISIT [facility] Start: 03-14-2022 ADVANCE DIRECTIVE DISCUSSION ADVANCE DIRECTIVE DISCUSSION [facility] Start: 12-23-2021 COLORECTAL CANCER SCREENING COLORECTAL CANCER SCREENING [facility] Start: 12-23-2021 FECAL OCCULT BLOOD FECAL OCCULT BLOO D [facility] Start: 12-23-2021 Screening for malign ant neoplasm of colon Fecal Occult Blood [facility] Start: 11-12-2021 Influenza vaccination INFLUENZA (#1) [facility] Start: 06-23-2021 End: 08-23-2021 CBC W Auto Differential panel - Blood CBC + DIFF Lab Routine Anemia, unspecified type Expected: 06/23/2021 (Approximate), Expires: 08/23/2021 [facility] Work Phone: Comment on above: Expected: 06/23/2021 (Approximate), Expires: 08/23/2021 Start: 06-23-2021 End: 08-23-2021 Comprehensive metabolic 2000 panel - Serum or Plasma COMP METABOLIC PANEL Lab Routine Hyperlipidemia, mixed Expected: 06/23/2021 (Approximate), Expires: 08/23/2021 [facility] Work Phone: Comment on above: Expected: 06/23/2021 (Approximate), Expires: 08/23/2021 Start: 06-23-2021 End: 08-23-2021 LIPID PANEL BASIC LIPID PANEL BASIC Lab Routine Hyperlipidemia, mixed Expected: 06/23/2021 (Approximate), Expires: 08/23/2021 [facility] Work Phone: Comment on above: Expected: 06/23/2021 (Approximate), Expires: 08/23/2021 Start: 06-23-2021 End: 08-23-2021 Thyrotropin [Units/volume] in Serum or Plasma TSH BLD Lab Routine Other specified hypothyroidism Expected: 06/23/2021 (Approximate), Expires: 08/23/2021 [facility] Work Phone: Comment on above: Expected: 06/23/2021 (Approximate), Expires: 08/23/2021 Start: 06-23-2021 End: 08-23-2021 VITAMIN D 25 HYDROXY VITAMIN D 25 HYDROXY Lab Routine Vitamin D deficiency Expected: 06/23/2021 (Approximate), Expires: 08/23/2021 [facility] Work Phone: Comment on above: Expected: 06/23/2021 (Approximate), Expires: 08/23/2021 Start: 03-14-2021 ADVANCE DIRECTIVE DISCUSSION ADVANCE DIRECTIVE DISCUSSION [facility] Start: 11-12-2020 COVID-19 VACCINE (3 - Booster for Pfizer series) COVID-19 VACCINE (3 - Booster for Pfizer series) [facility] Start: 08-07-2020 COVID-19 VACCINE (3 - Booster for Pfizer series) COVID-19 VACCINE (3 - Booster for Pfizer series) [facility] Start: 08-07-2020 COVID-19 VACCINE (3 - Pfizer series) COVID-19 VACCINE (3 - Pfizer series) [facility] Start: 01-02-2020 Mammography MAMMOGRAM [facility] Start: 05-22-2015 Screening for osteoporosis Bone Dens ity Screening [facility] Start: 2007 RSV Vaccine (1 - 1-d ose 60+ series) RSV Vaccine (1 - 1-dose 60+ series) [facility] Start: 10-21-1997 SHINGRIX VACCINE (1 of 2) OWENS GRIX VACCINE (1 of 2) [facility] Start: 10-21-1992 COLOGUARD (FIT-DNA) COLOGUARD (FIT-D NA) [facility] Start: 10-21-1992 Colonoscopy COLONOSCOPY [facility] Start: 10-21-[address] COLONOGRAPHY [facility] Start: 10-21-1992 Screening for malign ant neoplasm of colon [facility] Start: 10-21-1992 SIGMOIDOSCOPY SIGMOIDOSCOPY [facility] Start: 10-21-1965 Anxiety Screening Anxiety Screening [facility] Alanine aminotransfe rase [Enzymatic activity/volume] in Serum or Plasma [facility] Albumin [Mass/volume ] in Serum or Plasma [facility] Alkaline phosphatase [Enzymatic activity/volume] in Serum or Plasma [facility] Anion gap measurement [facility] Aspartate aminotrans ferase [Enzymatic activity/volume] in Serum or Plasma [facility] Bilirubin, total measurement [facility] BUN/Creatinine ratio [facility] Calcium [Mass/volume ] in Serum or Plasma [facility] Carbon dioxide, tota l [Moles/volume] in Serum or Plasma [facility] Chloride [Moles/volu me] in Serum or Plasma [facility] COLOGUARD COLOGUARD Lab Carline dunn Screening for colon cancer Ordered: 01/05/2023 [facility] Work Phone: Comment on above: Ordered: 01/05/2023 Creatinine [Moles/vo lume] in Serum or Plasma [facility] Glucose [Mass/volume ] in Serum or Plasma [facility] Hematocrit [Volume Fraction] of Blood [facility] Hemoglobin [Mass/vol ume] in Blood [facility] Leukocytes [#/volume ] in Blood [facility] End: 12-31-2023 [facility] SCREENING [facility] SCREENING Radiology Routine Encounter for screening mammogram for breast cancer 1 Occurrences starting 12/01/2022 until 12/31/2023 [facility] Work Phone: Comment on above: 1 Occurrences starti ng 12/01/2022 until 12/31/2023 Mean corpuscular hemoglobin concentration determination [facility] Mean corpuscular hemoglobin determination [facility] Measurement of renal function [facility] Neutrophil count [facility] Neutrophil percent differential count [facility] Patient Education [facility] Work Phone: Patient referral [facility] Work Phone: Platelets [#/volume] in Blood [facility] Potassium [Moles/vol ume] in Serum or Plasma [facility] Red blood cell count [facility] Red cell distributio n width determination [facility] End: 07-22-2022 Screening mammography bi 2-view breast inc cad [facility] SCREENING Radiology Routine Encounter for screening mammogram for malignant neoplasm of breast 1 Occurrences starting 06/22/2021 until 07/22/2022 [facility] Work Phone: Comment on above: 1 Occurrences starti ng 06/22/2021 until 07/22/2022 Sodium [Moles/volume ] in Serum or Plasma [facility] Total protein measurement [facility] Urea nitrogen [Mass/volume] in Serum or Plasma [facility] XR Spine thoracolumb ar junction 2 Views XR THORACO LUMBAR JUNCT 2V AP/LAT Radiology Routine Closed wedge compression fracture of T11 vertebra, initial encounter ([facility]) 06/21/2024 2:38 PM EDT [facility] Work Phone: [facility] Immunizations Immunization Date Immunization Notes Care Provider Deepika rodriguez 05-10-2024 influenza, high dose seasonal, preservative-free Dr. Vera Pompa MD Work Phone: [facility] 05-10-2024 influenza virus vacc ine, unspecified formulation Flakito Roger RN [facility] 01-05-2023 influenza (HD-IIV4) vaccine, age 65+ yr, high dose, quadrivalent, PF (FLUZONE HIGH-DOSE) Apryl Gorman CORPORATE BOND TRADER.AUTOMATION ANALYST Work Phone: [facility] 01-05-2023 influenza virus vacc ine, unspecified formulation Luis Enrique Caicedo CORPORATE BOND TRADER.AUTOMATION ANALYST Work Phone: [facility] 12-24-2021 Influenza, high dose seasonal Dr. Vera Pompa MD Work Phone: [facility] 12-24-2021 influenza, high dose seasonal, preservative-free Dr. Vera Pompa Work Phone: [facility] 12-24-2021 influenza, high-dose , quadrivalent vaccine (FLUZONE HIGH DOSE QUADRIVALENT) Apryl Gorman CORPORATE BOND TRADER.AUTOMATION ANALYST Work Phone: [facility] 12-24-2021 influenza virus vacc ine, unspecified formulation Vera Pompa MD Work Phone: [facility] 12-17-2020 influenza, high-dose , quadrivalent vaccine (FLUZONE HIGH DOSE QUADRIVALENT) Vera Pompa MD Work Phone: [facility] 06-12-2020 Covid (Pfizer) Dr. Vera stanley Work Phone: [facility] 05-22-2020 Covid (Pfizer) Dr. Vera stanley Work Phone: [facility] 03-12-2020 influenza, high-dose , quadrivalent vaccine (FLUZONE HIGH DOSE QUADRIVALENT) Vera Pompa MD Work Phone: [facility] 11-24-2018 influenza, high dose seasonal, preservative-free Vera Pompa MD Work Phone: [facility] 04-29-2018 tetanus toxoid, redu jarvis diphtheria toxoid, and acellular pertussis vaccine, adsorbed Dr. Vera Pompa Work Phone: [facility] 11-24-2017 influenza, high dose seasonal, preservative-free Vera Pompa MD Work Phone: [facility] 11-26-2016 influenza, high dose seasonal, preservative-free Vera Pompa MD Work Phone: [facility] 03-18-2016 influenza, injectabl e, quadrivalent, preservative free Dr. Vera Pompa Work Phone: [facility] 03-18-2016 influenza, seasonal, injectable Dr. Vera Pompa Work Phone: [facility] 01-30-2015 influenza, high dose seasonal, preservative-free Vera Pompa MD Work Phone: [facility] 01-30-2015 pneumococcal conjuga te vaccine, 13 valent Vera Pompa MD Work Phone: [facility] 12-12-[address] Vera Pompa Work Phone: [facility] 01-25-2013 influenza virus vacc ine, unspecified formulation Vera Pompa MD Work Phone: [facility] 10-28-2012 pneumococcal polysaccharide vaccine, 23 valent Vera Pompa MD Work Phone: [facility] 02-19-2011 influenza virus vacc ine, unspecified formulation Vera Pompa MD Work Phone: [facility] Work Phone: 03-19-2010 influenza virus vacc ine, unspecified formulation Vera Pompa MD Work Phone: [facility] Work Phone: 11-06-2004 diphtheria and tetan us toxoids, adsorbed for pediatric use Vera Pompa MD Work Phone: [facility] Work Phone: Payers Date Payer Category Payer Self-pay [id number] 2020 Medicare HUMANA MEDICARE HUMANA MEDICARE PPO [id number] 2020-Present [phone] [address] [place] [address] PPO [id number] 2020 Medicare HUMANA MEDICARE HUMANA MEDICARE PPO [id number] 2020-Present [phone] [place] [address] PPO [id number] 2020 Medicare (Managed Care) HUMANA EDICARE [id number] 2013 Medicare [id number] Medicare MEDICARE PART A B [id number] Unknown [id number] Unknown [id number] Unknown [id number] Unknown [id number] Unknown [id number] Unknown [id number] Unknown [id number] Unknown [id number] Social History Date Type Detail Facility Start: 12-24-2021 End: 09-13-2024 Tobacco smoking status NHIS Never smoked tobacco [facility] Start: 06-22-2021 End: 09-03-2024 Alcohol intake Current non-drinker of alcohol (finding) [facility] Start: 1945 Sex Assigned At Not on file [facility] Start: 06-12-2021 End: 12-24-2021 Exposure to SARS-CoV-2 (event) Not sure [facility] Start: 12-24-2021 Tobacco use and exposure Smokeless tobacco non-user [facility] Start: 09-07-2022 End: 05-25-2023 Tobacco smoking status MDIS Unknown if ever smoked [facility] Start: 03-19-2016 None [facility] Start: 09-07-2022 Homeless [facility] Start: 04-08-2016 Non-smoker [facility] Start: 1945 Sex Assigned At Female [facility] Start: 10-04-2022 End: 05-07-2024 History of Social function [facility] Start: 10-04-2022 End: 05-07-2024 Tobacco use panel [facility] Adult Depression Screening Assessment 0 [facility] Has the [employer], or water Yhat threatened to shut off services in your home in past 12Mo No [facility] (I/We) worried wheth er (my/our) food would run out before (I/we) got money to buy more. Never true [facility] Start: 05-25-2024 Sex Female (finding) [facility] How often to you hav e a drink containing alcohol? Never [facility] NEGATED: Highlighted shahram ang [facility] Medical Equipment Procedure Code Equipment Code Equipment Origin al Text Equipment Identifier Dates ORIF, hip, using Gamma nail LONG NAIL KIT FDA Start: 09-08-2022 ORIF, hip, using Gamma nail ([id number]) Orthopaedic bone screw, non-bioabsorbable, sterile [id number] FDA Start: 09-08-2022 ORIF, hip, using Gamma nail ([id number]) Orthopaedic bone screw, non-bioabsorbable, sterile [id number] FDA Start: 09-08-2022 ORIF, hip, using Gamma nail ([id number]) Orthopaedic bone screw, non-bioabsorbable, sterile ()[id number] FDA Start: 09-08-2022 ORIF, hip, using Gamma nail LONG NAIL KIT FDA Start: 09-08-2022 ORIF, hip, using Gamma nail LONG NAIL KIT FDA Start: 09-08-2022 ORIF, hip, using Gamma nail LONG NAIL KIT FDA Start: 09-08-2022 ORIF, hip, using Gamma nail LONG NAIL KIT FDA Start: 09-08-2022 ORIF, hip, using Gamma nail LONG NAIL KIT FDA Start: 09-08-2022 ORIF, hip, using Gamma nail LONG NAIL KIT FDA Start: 09-08-2022 Goals Date Patient Goal Desired Activity /State Functional Status Date Assessment Result Facility 09-03-2024 Total score [AUDIT-C] 0 09/04/19 25 12:02 PM Nettie Chi MA [facility] 05-25-2024 Functional status Chair;Bathroom Privileg e [facility] Work Phone: 05-23-2024 Functional status Tolerates Activity Well [facility] Work Phone: 05-09-2024 Are you deaf, or do you have serious difficulty hearing No 05/09/2024 5:10 PM Muna Cordero RN No [facility] 05-09-2024 Are you blind, or do you have serious difficulty seeing, even when wearing glasses No 05/09/2024 5:10 PM Muna Cordero RN No [facility] 05-09-2024 Do you have serious difficulty walking or climbing stairs Yes 05/09/2024 5:10 PM Muna Cordero RN Yes [facility] 05-09-2024 Do you have difficul ty dressing or bathing Yes 05/09/2024 5:10 PM Muna Cordero RN Yes [facility] 05-09-2024 Because of a physica l, mental, or emotional condition, do you have difficulty doing errands alone such as visiting a physician's office or shopping Yes 05/09/2024 5:10 PM Muna Cordero RN Yes [facility] 10-01-2022 Functional status Chair [facility] Work Phone: 09-10-2022 Functional status Bedrest [facility] Work Phone: 07-16-2014 Are you deaf, or do you have serious difficulty hearing No 07/16/2014 10:11 AM Nettie Chi MA No [facility] 07-16-2014 Are you blind, or do you have serious difficulty seeing, even when wearing glasses No 07/16/2014 10:11 AM Nettie Chi MA No [facility] 07-16-2014 Do you have serious difficulty walking or climbing stairs Yes 07/16/2014 10:11 AM Nettie Chi MA Yes [facility] 07-16-2014 Do you have difficul ty dressing or bathing No 07/16/2014 10:11 AM Nettie Chi MA No [facility] 07-16-2014 Because of a physica l, mental, or emotional condition, do you have difficulty doing errands alone such as visiting a physician's office or shopping No 07/16/2014 10:11 AM Nettie Chi MA No [facility] Mental Status Date Assessment Result Facility 05-25-2024 Cognitive function Voice/Name [facility] Work Phone: 05-17-2024 Cognitive function Appropriate;C [facility] Work Phone: 05-09-2024 Because of a physica l, mental, or emotional condition, do you have serious difficulty concentrating, remembering, or making decisions No 05/09/2024 5:10 PM Muna Cordero RN No [facility] 10-01-2022 Cognitive function Voice/Name [facility] Work Phone: 09-30-2022 [facility] 09-10-2022 Cognitive function Voice/Name [facility] Work Phone: 07-16-2014 Because of a physica l, mental, or emotional condition, do you have serious difficulty concentrating, remembering, or making decisions No 07/16/2014 10:11 AM EDT Nettie Brandt MA No [facility] Clinical Notes 06-22-2021 to 09-19-2024 Cynthia Vigil CPhT - 09/18/2024 3:22 PM Renea Canales MA - 09/17/2024 12:12 PM Flakito Call RN - 09/17/2024 11:54 AM EDT Note Date & Type Note Facility 09-19-2024 Note HNO ID: [id number] Author: RENEA CARL MA Service: ? Author Type: Engraving Plate Maker Type: Progress Notes Filed: 09/19/2024 08:31 Note Text: POPULATION HEALTH NAVIGATION OUTREACH Action/FYI CM Pool Message: Type: ACM A follow-up appointment is not noted in patient's record. We are forwarding this patient to Network [facility] to schedule a PCP follow-up appointment following recent 09/13/2024 [facility] visit. ED Follow up [facility] 09/13/24 Fall [facility] care gaps: Last wellness visit 09/03/24. Follow up due in February. MyChart Outcome: Final attempt. Patient has [employer] which does not allow a voice mail option. Not MyChart active. Reason for Outreach Community Monitoring/Network Navigator Pools AND Phone Line: CM Pool Care Gaps due: Follow-up Appointment Patient Contacted: Unable or unnecessary to reach patient: Unable to leave message Navigation Signature: Renea Carl MA September 19, 2024 8:27 AM [facility] 09-18-2024 Note HNO ID: [id number] Author: CYNTHIA VIGIL CPhT Service: ? Author Type: Casing Grader Type: Progress Notes Filed: 09/18/2024 15:23 Note Text: Patient is identified through a medication adherence outreach initiative based on pharmacy claims data from: [employer] Medication Adherence Category: Statins First Review Attribution Status: Correct attribution Medication(s) Atorvastatin 20 mg Medication Status per portal/Epic Reconcile Dispense: Not filled Medication Status per Profile Review: No issues per profile review Patient/provider appropriate for outreach? Yes Patient identified by name and Outreach to patient: Left Voicemail/message for return call What was primary intervention? Remind patient to supervisor opening and picking or fill Cynthia Vigil CPhT [facility] 09-18-2024 History of Present illness Narrative Patient is identified through a medication adherence outreach initiative based on pharmacy claims data from: [employer] Medication Adherence Category: Statins First Review Attribution Status: Correct attribution Medication(s) Atorvastatin 20 mg Medication Status per portal/Epic Reconcile Dispense: Not filled Medication Status per Profile Review: No issues per profile review Patient/provider appropriate for outreach? Yes Patient identified by name and Outreach to patient: Left Voicemail/message for return call What was primary intervention? Remind patient to supervisor opening and picking or fill Cynthia Vigil CPhT [facility] documented in this encounter [facility] 09-18-2024 Note Patient Outreach ( POHE) BRIANNE COCHRAN ([id number]) 1945 F Date Time Provider Department 09/18/24 VERA POMPA PHPOHE During your visit today, we recorded the following information about you: Cynthia Vigil CPhT 09/18/2024 3:23 PM Signed Patient is identified through a medication adherence outreach initiative based on pharmacy claims data from: [employer] Medication Adherence Category: Statins First Review Attribution Status: Correct attribution Medication(s) Atorvastatin 20 mg Medication Status per portal/Epic Reconcile Dispense: Not filled Medication Status per Profile Review: No issues per profile review Patient/provider appropriate for outreach? Yes Patient identified by name and Outreach to patient: Left Voicemail/message for return call What was primary intervention? Remind patient to supervisor opening and picking or fill Cynthia Vigil CPhT [facility] Pharm[facility] Team Allergies As of Date: 09/18/2024 Noted Allergy Reaction ACETAMINOPHEN-CODEINE 04/07/2023 16 - Unknown BIAXIN (CLARITHROMYCIN) 03/16/2005 16 - Unknown Comments: Doesn't remember, was a long time ago CODEINE 01/05/2007 Comments: unknown-long time ago NAPROXEN 11/23/2007 2 - Rash Comments: Generalized, nonpruritic RELAFEN (NABUMETONE) 03/16/2005 16 - Unknown Comments: Doesn't remember Date Reviewed: 09/03/2024 Reviewed by: Nettie Brandt MA - Fully Assessed Reason for Visit: Allied Health Visit [5] Cmt: Medication Adherence Outreach Prescriptions as of 09/18/2024 - omeprazole (PRILOSEC) 20 mg capsule Take 1 capsule by mouth daily before breakfast. 1/2 hr before meal. - cyclobenzaprine (FLEXERIL) 5 mg tablet Take 1 tablet by mouth three times a day as needed. - acetaminophen (TYLENOL) 500 mg tablet 1,000 mg. - methocarbamol (ROBAXIN) 500 mg tablet Take 500 mg by mouth three times a day as needed. - FLUoxetine (PROZAC) 40 mg capsule Take 1 capsule by mouth once daily. - levothyroxine (SYNTHROID) 100 mcg tablet Take 1 tablet by mouth once daily. - alendronate (FOSAMAX) 70 mg tablet Take 1 tablet by mouth one time a week. - atorvastatin (LIPITOR) 20 mg tablet Take 1 tablet by mouth once daily. - triamcinolone (KENALOG) 0.025 % ointment Apply [...] once daily. 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] 06/11/2013 Hyperlipidemia, mixed [E78.2] 03/12/2020 Multiple rib fractures involving four or more r*05/06/2024 Fall [W19.XXXA] 05/06/2024 Multiple closed fractures of ribs of both sides*05/06/2024 Closed wedge compression fracture of T12 verteb*05/06/2024 Acute pain due to trauma [G89.11] 05/07/2024 Acute respiratory insufficiency [R06.89] 05/07/2024 Closed wedge compression fracture of T11 verteb*05/08/2024 Trauma [T14.90XA] 05/08/2024 Syncope and collapse [R55] 05/08/2024 Lumbar spondylosis [M47.816] 06/21/2024 Gait instability [R26.81] 06/21/2024 Encounter Status:Closed by CYNTHIA VIGIL on 09/18/24 [facility] 09-17-2024 Note HNO ID: [id number] Author: RENEA CARL MA Service: ? Author Type: Engraving Plate Maker Type: Progress Notes Filed: 09/17/2024 12:20 Note Text: POPULATION HEALTH NAVIGATION OUTREACH Action/FYI CM Pool Message: Type: ACM A follow-up appointment is not noted in patient's record. We are forwarding this patient to [employer] to schedule a PCP follow-up appointment following recent 09/13/2024 [facility] visit. ED Follow up [facility] 09/13/24 Fall care gaps: Last wellness visit 09/03/24. Follow up due in February. MyChart Outcome: 1st attempt. Patient has [employer] which does not allow a voice mail option. Not MyChart active. Reason for Outreach Community Monitoring/Network Navigator Pools AND Phone Line: CM Pool Care Gaps due: Follow-up Appointment Patient Contacted: Unable or unnecessary to reach patient: Unable to leave message Navigation Signature: Renea Carl MA September 17, 2024 12:12 PM [facility] 09-17-2024 History of Present illness Narrative POPULATION HEALTH NAVIGATION OUTREACH Action/FYI CM Pool Message: Type: ACM A follow-up appointment is not noted in patient's record. We are forwarding this patient to [employer] to schedule a PCP follow-up appointment following recent 09/13/2024 [facility] visit. ED Follow up [facility] 09/13/24 Fall care gaps: Last wellness visit 09/03/24. Follow up due in February. MyChart Outcome: 1st attempt. Patient has [employer] which does not allow a voice mail option. Not MyChart active. Reason for Outreach Community Monitoring/Network Navigator Pools & Phone Line: CM Pool Care Gaps due: Follow-up Appointment Patient Contacted: Unable or unnecessary to reach patient: Unable to leave message Navigation Signature: Renea Carl MA September 17, 2024 12:12 PM Summary: Chart review per payor request ACM [place] RN Patient identified by name and date of . Reason for review or outreach: Chart Review [facility] Utilization REQUESTED ACTION/FYI: A follow-up appointment is not noted in patient's record. We are forwarding this patient to [facility] to schedule a PCP follow-up appointment following recent 09/13/2024 [facility] visit. Thank you! ED DIAGNOSES/REASON(S) FOR ED USE: 09/13/2024 [facility] for fall OTHER FINDINGS/SUMMARY: XR right hip/pelvis, XR right knee, labs Patient Attributed To: PALMA Payer: Sharif ALEMAN Action Taken: Referrals/Routed: [facility] Navigation: Appointment. Router to [facility] [[id number]] Contact made with patient: No, Chart review only. Signature: Flakito Roger RN documented in this encounter [facility] 09-17-2024 Note HNO ID: [id number] Author: FLAKITO ROGER RN Service: ? Author Type: Registered Nurse Type: Progress Notes Filed: 09/17/2024 11:59 Note Text: Summary: Chart review per payor request AC MARIETTA RN Patient identified by name and date of . Reason for review or outreach: Chart Review [facility] Utilization REQUESTED ACTION/FYI: A follow-up appointment is not noted in patient's record. We are forwarding this patient to [facility] to schedule a PCP follow-up appointment following recent 09/13/2024 [facility] visit. Thank you! ED DIAGNOSES/REASON(S) FOR ED USE: 09/13/2024 [facility] for fall OTHER FINDINGS/SUMMARY: XR right hip/pelvis, XR right knee, labs Patient Attributed To: PALMA Payer: Sharif ALEMAN Action Taken: Referrals/Routed: Population Health Navigation: Appointment. Router to [facility] [[id number]] Contact made with patient: No, Chart review only. Signature: Flakito Roger RN [facility] 09-17-2024 Note Patient Outreach ([facility] BRIANNE COCHRAN ([id number]) 1945 F Date Time Provider Department 09/17/[facility] During your visit today, we recorded the following information about you: Flakito Roger RN 09/17/2024 11:59 AM Signed ACM [place] RN Patient identified by name and date of . Reason for review or outreach: Chart Review [facility] Utilization REQUESTED ACTION/FYI: A follow-up appointment is not noted in patient's record. We are forwarding this patient to [facility] to schedule a PCP follow-up appointment following recent 09/13/2024 [facility] visit. Thank you! ED DIAGNOSES/REASON(S) FOR ED USE: 09/13/2024 [facility] for fall OTHER FINDINGS/SUMMARY: XR right hip/pelvis, XR right knee, labs Patient Attributed To: QAE Payer: Sharif ALEMAN Action Taken: Referrals/Routed: Population Health Navigation: Appointment. Router to [facility] [[id number]] Contact made with patient: No, Chart review only. Signature: KHADAR Ospina Lisa L, MA 09/17/2024 12:20 PM Signed POPULATION HEALTH NAVIGATION OUTREACH Action/FYI [facility] Message: Type: ACM A follow-up appointment is not noted in patient's record. We are forwarding this patient to [facility] to schedule a PCP follow-up appointment following recent 09/13/2024 [facility] visit. ED Follow up [facility] 09/13/24 Fall HM care gaps: Last wellness visit 09/03/24. Follow up due in February. MyChart Outcome: 1st attempt. Patient has [employer] which does not allow a voice mail option. Not MyChart active. Reason for Outreach Community Monitoring/Network Navigator Pools AND Phone Line: CM Pool Care Gaps due: Follow-up Appointment Patient Contacted: Unable or unnecessary to reach patient: Unable to leave message Navigation Signature: Renea Carl MA September 17, 2024 12:12 PM Renea Carl MA 09/19/2024 8:31 AM Signed POPULATION HEALTH NAVIGATION OUTREACH Action/FYI CM Pool Message: Type: ACM A follow-up appointment is not noted in patient's record. We are forwarding this patient to [facility] to schedule a PCP follow-up appointment following recent 09/13/2024 [facility] visit. ED Follow up [facility] 09/13/24 [facility] care gaps: Last wellness visit 09/03/24. Follow up due in February. MyChart Outcome: Final attempt. Patient has [employer] which does not allow a voice mail option. Not MyChart active. Reason for Outreach Community Monitoring/Network Navigator Pools AND Phone Line: CM Pool Care Gaps due: Follow-up Appointment Patient Contacted: Unable or unnecessary to reach patient: Unable to leave message Navigation Signature: Renea Carl MA September 19, 2024 8:27 AM Allergies As of Date: 09/17/2024 Noted Allergy Reaction ACETAMINOPHEN-CODEINE 04/07/2023 16 - Unknown BIAXIN (CLARITHROMYCIN) 03/16/2005 16 - Unknown Comments: Doesn't remember, was a long time ago CODEINE 01/05/2007 Comments: unknown-long time ago NAPROXEN 11/23/2007 2 - Rash Comments: Generalized, nonpruritic RELAFEN (NABUMETONE) 03/16/2005 16 - Unknown Comments: Doesn't remember Date Reviewed: 09/03/2024 Reviewed by: Nettie Brandt MA - Fully Assessed Reason for Visit: ACM MARIETTA RN [[id number]] Cmt: Chart review per payor request Prescriptions as of 09/19/2024 - omeprazole (PRILOSEC) 20 mg capsule Take 1 capsule by mouth daily before breakfast. 1/2 hr before meal. - cyclobenzaprine (FLEXERIL) 5 mg tablet Take 1 tablet by mouth three times a day as needed. - acetaminophen (TYLENOL) 500 mg tablet 1,000 mg. - methocarbamol (ROBAXIN) 500 mg tablet Take 500 mg by mouth three times a day as needed. - FLUoxetine (PROZAC) 40 mg capsule Take 1 capsule by mouth once daily. - levothyroxine (SYNTHROID) 100 mcg tablet Take 1 tablet by mouth once daily. - alendronate (FOSAMAX) 70 mg tablet Take 1 tablet by mouth one time a week. - atorvastatin (LIPITOR) 20 mg tablet Take 1 tablet by mouth once daily. - triamcinolone (KENALOG) 0.025 % ointment Apply [...] once daily. Problem List As Of Date 09/17/2024 Noted Resolved Major depressive disorder, recurrent episode (H*03/16/2005 Myalgia [M79.10] 03/16/2005 Osteoporosis [M81.0] 03/16/2005 HEADACHE [R51] 03/16/2005 Hypothyroidism [E03.9] 03/16/2005 Paralysis, unspecified [G83.9] 11/23/2007 09/03/2024 Anemia [D64.9] 12/09/2008 Routine Gynecological Examination [Z01.419] 04/10/2009 Class: Chronic Vitamin D Deficiency [E55.9] 07/28/2009 Buck (more content not included)... [facility] 09-13-2024 Discharge summary [facility] 09-13-2024 Radiology Diagnostic study note [facility] Imaging Services [address] [place] [address] HIP, UNI W/ Pelvis 2-3 Views MR#: [id number] Acct: [id number] Name: BRIANNE COCHRAN Rep #: [id number] : 1945 F 78 From: Charleen Foster MD PCP: Dr. Vera Pompa MD Status: RE G ER Study:HIP, UNI W/ Pelvis 2-3 Views Date of Ex am: 09/13/24 Exam# [id number] Ordering Dr: Giovanni Weaver MD PROCEDURE: HIP, UNI W/ PELVIS 2-3 VIEWS 09/13/2024 REASON FOR EXAM: FALL AND PAIN TECHNIQUE: HIP, UNI W/ PELVIS 2-3 VIEWS COMPARISON: Prior hip and pelvis radiographs 09/24/2022. FINDINGS: Bones: Increased interval bone demineralization. Prior ORIF of the bilateral hips, unchanged. Interval osseous healing of the prior left lesser trochanter fracture. No obvious acute fracture. Joints: Normal alignment. Moderate degenerative changes. Soft tissues: Soft tissues are unremarkable. Other: The visualized bowel loops are normal caliber. RAD/HIP, UNI W/ Pelvis 2-3 Views IMPRESSION: Prior ORIF of the bilateral hips. No obvious acute fracture. Reading Location: [facility] CC: Dr. Carroll Weaver MD; Dr. Vera Pompa MD ~ Dip Dyer: Signed [facility] [facility] 09-13-2024 Rad[address] note [facility] Imaging Services [address] [place] [address] [id number] Knee 4 or More Views MR#: [id number] Acct: [id number] Name: BRIANNE COCHRAN Rep #: [id number] : 1945 F 78 From: Charleen Foster MD PCP: Dr. Vera Pompa MD Status: RE G ER Study:Knee 4 or More Views Date of Exam: 09/13/24 Exam# [id number] Ordering Dr: Giovanni Weaver MD PROCEDURE: KNEE 4 OR MORE VIEWS 09/13/2024 REASON FOR EXAM: FALL AND PAIN TECHNIQUE: KNEE 4 OR MORE VIEWS COMPARISON: None. FINDINGS: Bones: Severe diffuse bone demineralization. No obvious acute fracture. No aggressive osseous lesion. Joints: Moderate degenerative changes. Effusion: Small joint effusion. Soft tissues: Soft tissues are unremarkable. RAD/Knee 4 or More Views IMPRESSION: Severe diffuse bone demineralization, which limits osseous evaluation. No obvious acute fracture. Small effusion. Reading Location: [facility] CC: Dr. Carroll Weaver MD; Dr. Vera Pompa MD ~ Dip Dyer: Signed [facility] 09-13-2024 Discharge summary Note Date/Time September 13, 2024 4:49p m [facility] Medical Records Department [address] [place] [address] Emergency Department Summary 09/13/24 MR#: [id number] Acct: [id number] Name: BRIANNE COCHRAN Rep #:[id number] : 1945 78 From: Carroll Weaver MD PCP: Dr. Vera Pompa MD Status:RE G ER Location: ED HPI HPI - Fall History of Present Illness Chief Complaint: Fall Informant: patient Occured/Mechanism Occurred: Today and Hours Mechanism/Context: Yes same level fall Usually ambulates: Without assistance Pain/Injury Pain Location: lower extremity (Right hip and right knee pain post fall.) Quality of Pain: Sharp Current Severity: Moderate Maximum Severity: Moderate Associated Symptoms Associated Symptoms: Negative for Parasthesias, Weakness, Loss of function, Inability to ambulate, Loss of consciousness or Amnesia Narrative Narrative: 78 year-old female says she occasionally falls at home. Today she just lost herbalance fell on the hardwood floor. Injuring her right knee and right hip. Denies any head injury. No headache. No LOC. This occurred around 130 today. Complaining primarily of right knee and right leg posterior hip iliac crest pain. She believes she hit her knee and then landed on her buttock. She is on no blood thinners. She denies recent illness or recent hospitalization. Prior similar symptoms: Yes Recent Illness/Hospitalization: No PFSH PFSH Medical History Hypothyroid Non-smoker Sleep apnea Hypertension Migraines Chronic anemia Obesity Anxiety and depression GERD (gastroesophageal reflux disease) HLD (hyperlipidemia) PAF (paroxysmal atrial fibrillation) Fibromyalgia Osteoporosis Paroxysmal atrial fibrillation T12 compression fracture Closed right hip fracture Syncope Home Medications ?Medication ?Instructions ?Recorded ?Last Taken ?Type alendronate 70 mg tablet 70 mg PO UD osteoporosis 08/16/24 History atorvastatin 20 mg tablet 20 mg PO QHS HLD 06/27/23 06 /29/23 History fluoxetine 40 mg capsule 40 mg PO DAILY depression 09/10/22 History omeprazole 20 mg capsule,delayed 20 mg PO DAILY GERD 0 09/07/22 05/09/24 History release calcium carbonate 500 mg (2.5 x 200 mg calcium (500 09/10/22 08/21/24 Rx mg)) PO TIDCM supplement #30 tabs levothyroxine 100 mcg tablet 100 mcg PO DAILY THYROID 05/05/24 08/21/24 History cholecalciferol (vitamin D3) 25 50 mcg (2 x 25 mcg (1, 000 unit)) 05/22/24 Unknown Rx mcg (1,000 unit) tablet PO DAILY #0 tabs multivitamin-iron 9 mg-folic acid 1 tab PO DAILYCM #0 tabs 05/22/24 Unknown Rx 400 mcg-calcium and minerals tablet (Therapeutic-M) acetaminophen 500 mg tablet 1,000 mg PO Q8 PRN pain 08/21/24 History Allergy/AdvReac Type Severity Reaction Status Date / Time codeine Allergy Unknown Verified 09/13/24 14:56 codeine phosphate (From AdvReac Unknown Verified 09/13/24 14:56 Tylenol-Codeine #3) nabumetone (From Relafen) AdvReac Unknown Verified 09/13/24 14:56 naproxen AdvReac Unknown Verified 09/13/24 14:56 Family History Mother Cancer Father Cancer Surgical History S/P ORIF (open reduction internal fixation) fracture History of section H/O ovarian cystectomy History of total right hip replacement S/P kyphoplasty S/P ORIF (open reduction internal fixation) fracture Social History household members: spouse Smoking Status: Never smoker alcohol intake: never substance use type: does not use ROS ROS ED ROS Narrative Denies recent illness Constitutional Constitutional ED: Denies chills Eyes Eyes: Denies blurry vision ENT ENT ED: Denies ear pain Cardiovascular Cardiovascular: Denies chest pain Respiratory/Chest Respiratory/Chest: Denies cough or dyspnea Gastrointestinal Gastrointestinal: Denies abdominal pain Genitourinary Genitourinary ED: Denies dysuria or hematuria Musculoskeletal Musculoskeletal: Denies arthralgias Integumentary Denies abscess Neurologic Neurologic: Denies headache(s) Psychiatric Psychiatric: Denies anxiety Endocrine Endocrinology: Denies polydipsia, polyphagia or polyuria Hematologic/Lymphatic Hematologic/Lymphatic: Denies easy bleeding or easy bruising Allergic/Immunologic Allergic/Immunologic ED: Denies mouth swelling, tongue swelling or urticaria EXAM Physical Exam Narrative Exam Narrative: 78-year-old female sitting upright in a wheelchair in triage room 2 due to current volume and acuity. Vital signs are stable afebrile. No acute distress. Currently no family present. H EENT exam pupils round react light. Mytrex membranes. No trauma or tenderness to her face or scalp. C-spine and back thoracic and lumbar spine all nontender. Mild tenderness right posterior iliac crest. Lungs clear to auscultation. Heart regular rhythm rate about 90 no murmur. Chest wall ribs nontender. Abdomen soft nontender. Pelvic girdle intact. She really does not have any significant right hip pain. There is no shortening or rotation. All appears to be primarily over the right iliac crest. Both femurs are nontender. The right knee is swollen and tender. Limited range of motion due to pain. Distal right lower leg tib-fib, right ankle and right foot are nontender. Normal dorsi plantarflexion. Both upper extremities are nontender without deformity. Neurologically she is awake and alert. Answering questions following commands. Const Vital Signs: 09/13/24 14:54 09/13/24 14:56 Temperature 97.4 F L Temperature Source Temporal Pulse Rate 94 Respiratory Rate 18 Respiratory Effort Normal Non-Labored Respiratory Depth Normal Respiratory Pattern Normal Blood Pressure 147/89 H Blood Pressure Mean 108 Pulse Ox 98 Oxygen Delivery Method Room Air Room Air Positive well nourished and well developed; Negative for obese, cachectic, contractures or unkempt General Appearance ED: well developed and NAD; Negative for unkempt, cachectic or contractures Nutritional Appearance: Negative for cachectic or obese HEENT Reports normocephalic atraumatic; Negative for trauma, contusion, hematoma or tenderness Eyes PERRL and EOMs intact bilaterally General Eye ED: Negative for pale conjunctiva or scleral icterus Neck full ROM, no lymphadenopathy and supple General: Negative for tenderness Chest Wall inspection of chest normal and palpation of chest normal Resp normal respiratory effort, no retractions and clear to auscultation bilaterally Cardio regular rate, regular rhythm, S1 normal heart sound, S2 normal heart sound and no murmurs Rate: Negative for bradycardia or tachycardic Rhythm: Negative for abnormal rhythm GI non-tender, non-distended and no masses Auscultation: normoactive bowel sounds Palpation: soft; Negative for guarding or rebound tenderness present Back/Spine no CVA tenderness Back/Spine Narrative: Cervical, thoracic and lumbar spine are all nontender. Mild tenderness right iliac crest. General Back: Negative for CVA tenderness Cervical Spine: Negative for cervical spine tenderness Thoracic Spine / Upper Back: Negative for ROM limited Lumbar Spine / Lower Back: lumbar spinal tenderness Extremity Extremity Narrative: Tenderness and swelling right knee. Decreased range of motion due to pain but she is able to flex and extend somewhat. Right hip, ankle and foot are nontender. Normal touch sensation. Normal dorsi plantarflexion. Neuro oriented x3 and CN's II-XII intact bilaterally Sensorium / Orientation: alert, oriented to person, oriented to place and oriented to time; Negative for orientation impaired, confused, lethargic or stuporous Motor Exam: strength 5/5 throughout; Negative for general weakness or strength abnormal Psych mental status grossly normal and thought process normal Appearance: Negative for unkempt Mood & Affect: Negative for depressed, anxious or tearful Skin Lesions: no lesions Rashes: no rashes Trauma: Negative for abrasion MDM MDM MDM Narrative Medical decision making narrative: 78-year-old female fell at home complaining of right knee and iliac crest pain on the right. She has bilateral femoral rods from prior falls. She denies any femur pain. X-rays of be obtained of her right knee, right hip and pelvis. Shetook Tylenol at home did not want a thing currently for pain. Initially seen intriage once the room becomes available to be brought back. Repeat exam patient is doing well. She has a mild to moderate effusion of the right knee. She therefore consented. Hip is no shortening or rotation. I did go over the films with the patient she has bilateral prior hip surgery from fractures not femoral rods like she thought. History & Record Review Discussion w/independent historian: Patient Additional record(s) reviewed:: Prior inpatient record, Prior outpatient record,Prior ED visit and Prior labs Radiography Diagnostic Testing: Clinical Impression(s) from Imaging Studies Knee X-Ray 09/13/24 15:19 IMPRESSION: Severe diffuse bone demineralization, which limits osseous evaluation. No obvious acute fracture. Small effusion. Reading Location: [facility] Hip/Pelvis X-Ray 09/13/24 16:00 IMPRESSION: Prior ORIF of the bilateral hips. No obvious acute fracture. Reading Location: [facility] Right hip and pelvis x-ray 3 views interpreted by myself shows prior hip surgerybilaterally. No acute fracture or dislocation of either the pelvis or the righthip. Also read by the radiologist agrees. Right knee x-ray, 4 views, interpreted by myself and the radiologist. Shows chronic degenerative changes. No fracture or dislocation. Discharge Plan Triage Chief Complaint: Fall ED Provider: Carroll Weaver Dx/Rx/DC Orders Clinical Impression: Fall, Contusion of knee, right, Effusion of right knee, Contusion of pelvis Instructions: ED Knee Effusion Prescriptions: No Action fluoxetine 40 mg capsule 40 mg PO DAILY atorvastatin 20 mg tablet 20 mg PO QHS Patient Comments: PT THINKS SHE IS TAKING SOMETHING FOR CHOLESTEROL AND THAT IT MAY BE ATORVASTATIN alendronate 70 mg tablet 70 mg PO UD Rx Instructions: weekly. omeprazole 20 mg capsule,delayed release(DR/EC) 20 mg PO DAILY calcium carbonate 200 mg calcium (500 mg) Tablet,Chewable 500 mg PO TIDCM Qty: 30 0RF cholecalciferol (vitamin D3) 25 mcg (1,000 unit) Tablet 50 mcg PO DAILY Qty: 0 0RF Therapeutic-M 9 mg iron-400 mcg Tablet 1 tab PO DAILYCM Qty: 0 0RF levothyroxine 100 mcg tablet 100 mcg PO DAILY Patient Comments: [NO ORIGINAL SIG] acetaminophen 500 mg Tablet 1,000 mg PO Q8 PRN (Reason: pain) Primary Care Provider: Vera Pompa Referrals: Vera Pompa MD [Primary Care Provider] - 1 Week if not improving Activity Restrictions/Additional Instructions: Tylenol and/or ibuprofen for pain and swelling. Ice and elevate your right knee is much as possible to decrease pain and swelling also your right buttock area. Follow-up with your doctor if not improving but the x-rays tonight showed no fracture of either the hip, pelvis or right knee. The swelling in the right knee may take several weeks to go away. If it is not improving follow-up. Print Language: Andorran Disposition Disposition: Home, Self Care What to do if you have Problems For any increased pain, shortness of breath, bleeding, nausea or vomiting, chestpain, or any unexpected problems, contact your Primary Care Provider. Call [facility] ([phone]) or report to the closest Emergency Room. Call 911 if necessary. 09/13/24 [id number] <Electronically signed by Carroll Weaver MD> Cosigner Signature (if applicable): CC: Dr. Vera Pompa MD ~ Signed [facility] Work Phone: [phone] Instructions* Patient Instructions* Vera Pompa MD - 09/03/2024 12:36 PM EDT We discussed your overall health and wellness: - Your Medicare wellness exam was completed today. - Your blood pressure was 128/78, which is within a healthy range. We discussed your history of falls and balance issues: - You reported that your strength and balance have been worsening over time, and you are unable to do as much as you used to. - You have not had any recent falls, but you mentioned two falls in the past, including one earlierthis year that resulted in rib and spine fractures. - You are encouraged to continue using your walker for safety and to avoid falls. - Physical therapy may be helpful to improve your strength and balance. You can also try doing strengthening exercises at home, such as using resistance bands or light weights, to maintain your strength and function. We discussed your medications: - You are currently taking the following medications: - Levothyroxine 100 mcg daily for your thyroid. - Lipitor (atorvastatin) 20 mg daily for cholesterol. - Omeprazole for your stomach. - Prozac (fluoxetine) for depression. - Calcium and Fosamax (alendronate) once weekly for osteoporosis. - Flexeril (cyclobenzaprine) as needed for muscle relaxation. - Gabapentin (Neurontin) was removed from your medication list, as you are no longer taking it. - You do not need any medication refills at this time. We discussed your diet and lifestyle: - You are encouraged to continue eating a healthy diet with plenty of fruits and vegetables. - Try to limit your intake of sweets and junk food, such as ice cream and candy. - Continue getting outside and walking in your yard with your walker when the weather permits, as fresh air and light activity are beneficial. We discussed your recent emergency room visit: - You were seen in the ER recently for a nosebleed, which was treated with cauterization. You have not had any further issues since then. We discussed your upcoming lab work: - You are due for fasting blood work to check your thyroid levels, cholesterol, and blood count. Please come to the clinic in the morning after fasting (no food or drink except water for 8-12 hours) within the next week to complete this. We discussed follow-up care: - You will follow up in 6 months. - Since I will be retiring in the fall, you may choose to establish care with another provider hereor with Apryl at her new location. Please let us know if you have any questions or concerns. [facility] History of Present illness Narrative* Vera Pompa MD - 09/03/2024 12:00 PM EDT Images from the original note were not included. Brianne Cochran is a 78 year old female here for a Medicare wellness visit. Medicare Health Risk Assessment General Health Fair Exercise: Minutes/Day 0 min Exercise: Days/Week 0 days Alcohol: Daily Use Never Alcohol: Drinks/Day Patient does not drink Alcohol: 6 or more drinks Never Feel off balance Yes (uses a walker) Concerns: Teeth/Dentures No Concerns: Sexual function No Troubled by feelings None of the above Frequency: Eating healthy diet More than half the days ADLs requiring help None of the above; Driving Safety precautions in home/vehicle Yes Smoke, vape, chews tobacco No Difficulty hearing No Difficulty seeing Yes Current Providers Specialists: I have reviewed specialist-related care of the patient in the medical record. Current care team: Patient Care Team: Vera Pompa MD as PCP - General (Family Medicine) Luis Enrique Caicedo APRN.AUTOMATION ANALYST as Medical Assistant Cardiology (Family Medicine) Medical/Family history review Reviewed and updated problem list, medical/surgical/family/social history, medications, and allergies. Opioid use review Opioid Medications (last 90 days) No data to display Anxiety/Depression screening PHQ-2 Score: 1 (Lower risk for depression) Recommendation: no further intervention at this time Cognitive screening Mini Cog Score: 4 Cognitive screening reviewed and No further action needed (score 3-5). Functional Observation Was the patient's Timed Up & Go test unsteady or >= 12 seconds? Yes Advance Care Planning Surrogate decision maker and/or advance care plan documented Measurements BP 128/78 Pulse 86 Resp 16 Ht 149.9 cm (4' 11) Wt 59.8 kg (131 lb 13.4 oz) SpO2 99% BMI 26.63 kg/m Vision Screening: Right: 40 Left: 20 40 Both: Assessment/Plan Medicare annual wellness visit, initial (Z00.00) - Counseled on healthy diet and regular exercise - Fall avoidance information provided - Personalized prevention plan provided - Discussed need for and benefit of weight loss. BMI 26.63 kg/(m^2) Chief Complaint Patient presents with: Medicare Wellness Exam Follow up HPI Brianne Cochran is a 78 year old female who presents here today for follow up BP and Nose bleed. Here with . Brianne Cochran is a 78-year-old female, with a history of falls, osteoporosis, and depression, presenting for a Medicare Annual Wellness Visit. Brianne reports difficulty with mobility and balance, stating, It's just hard for me to do anything. She uses a walker for ambulation and has experienced multiple falls, with the most recent fall occurring a few months ago. She also had a fall earlier this year, resulting in rib fractures and a compression fracture of the spine, for which she was hospitalized and underwent rehabilitation. She reports recovery from these injuries but notes a perceived worsening of strength and balance over time,stating, I feel like it's getting worse, I can't do nothing anymore. She denies understanding thecause of her falls, stating, I don't know why. Brianne has a son who lives nearby and monitors her well-being, especially in the evenings. She has aramp built by her religious to facilitate easier access to her home. She has participated in physical therapy in the past but has not done so recently. She possesses weights and resistance bands at homebut admits to forgetting to use them regularly. Brianne was seen in the emergency room a few weeks ago for a nosebleed, which was treated with cauterization. She denies a history of epistaxis and reports no issues since the incident. She is currently on multiple medications, including levothyroxine 100 mcg daily, atorvastatin 20 mgdaily, omeprazole, fluoxetine for depression, calcium, and alendronate once a week for osteoporosis. She denies current use of gabapentin and has Flexeril prescribed as needed. She reports doing okayon her medications and denies needing any refills at this time. Brianne tries to maintain a healthy diet, consuming vegetables and fruits daily, but admits to enjoying ice cream and candy. She denies seeing any other specialists and has advanced directives set up, though they have not been distributed. Past medical history, appointments, medications, allergies reviewed. [...] Procedure Laterality Date BREAST BIOPSY Left 12/16/2016 [facility]-Dr. Sandhu DELIVERY ONLY , low transverse x [...] Cancer Sister Patient Allergies ALLERGIES Allergen Reactions Acetaminophen-Codei* Unknown Biaxin [Clarithromy* Unknown Doesn't remember, was a long time ago Codeine unknown-long time ago Naproxen Rash Generalized, nonpruritic Relafen [Nabumetone] Unknown Doesn't remember Current Medications Current Outpatient Medications on File Prior to Visit Medication Sig omeprazole (PRILOSEC) 20 mg capsule Take 1 capsule by mouth daily before breakfast. 1/2 hr before meal. cyclobenzaprine (FLEXERIL) 5 mg tablet Take 1 tablet by mouth three times a day as needed. acetaminophen (TYLENOL) 500 mg tablet 1,000 mg. methocarbamol (ROBAXIN) 500 mg tablet Take 500 mg by mouth three times a day as needed. FLUoxetine (PROZAC) 40 mg capsule Take 1 capsule by mouth once daily. gabapentin (NEURONTIN) 100 mg capsule Take 1 capsule by mouth every 8 hours for 14 days. lidocaine (SALONPAS) 4 % patch Apply 1 Patch as directed once daily. (Patient not taking: Reported on 06/21/2024) levothyroxine (SYNTHROID) 100 mcg tablet Take 1 tablet by mouth once daily. alendronate (FOSAMAX) 70 mg tablet Take 1 tablet by mouth one time a week. atorvastatin (LIPITOR) 20 mg tablet Take 1 tablet by mouth once daily. meclizine 25 mg chewable tablet(s) CHEW AND SWALLOW 1 TABLET THREE TIMES DAILY NEEDED FOR DIZZINESS triamcinolone (KENALOG) 0.025 % ointment Apply 1 application to affected area twice daily. MULTIVITS W-FE,OTHER MIN/LUT (CENTRUM SILVER ULTRA WOMEN'S ORAL) Take 1 tablet by mouth once daily. calcium carbonate 600 mg-cholecalciferol 400 units 600 mg-10 mcg (400 unit) tab Take 1 tablet by mouth once daily. Cholecalciferol, Vitamin D3, 2,000 unit ORAL Cap Take 1 capsule by mouth once daily. No current facility-administered medications on file prior to visit. Social History Social History Tobacco Use Smoking status: Never Smokeless tobacco: Never Vaping Use Vaping status: Never Used Substance Use Topics Alcohol use: No Drug use: No EXAM: BP 128/78 Pulse 86 Resp 16 Ht 149.9 cm (4' 11) Wt 59.8 kg (131 lb 13.4 oz) SpO2 99% BMI 26.63 kg/m General Appearance: Well appearing, alert, in no acute distress, well-hydrated, well nourished. andWalker. Lungs: Lungs clear to auscultation. No wheezing, rhonchi, rales.. Heart: RRR without murmur, gallop, or rubs. No ectopy. Health Maintenance List Anxiety Screening Never done Shingrix Vaccine(1 of 2) Never done Bone Density Screening due on 05/22/2015 RSV Vaccine(1 - 1-dose 75+ series) Never done Advance Directive Discussion due on 03/14/2024 Medicare Advantage Annual Wellness Visit Never done Annual PCP Team Chronic Disease Visit due on 08/31/2024 Covid-19 Vaccine( season) due on 09/03/2025 Diabetes Screening due on 05/09/2027 DTaP,Tdap,Td Vaccine(4 - Td or Tdap) due on 04/29/2028 Influenza Vaccine Completed Hepatitis C Screening Completed Pneumococcal Vaccine: 50+ Completed Mammogram Screening Discontinued Colorectal Cancer Screening Discontinued Data reviewed none 1. Encounter for screening examination for other mental health and behavioral disorders (Z13.39) Screening performed during visit. 2. Osteoporosis, unspecified osteoporosis type, unspecified pathological fracture presence (M81.0) Managed with Fosamax once weekly. 3. Other specified hypothyroidism (E03.8) Stable on levothyroxine 100 mcg daily. - Ordered TSH level to monitor thyroid function. 4. Anemia, unspecified type (D64.9) - Ordered CBC to evaluate hemoglobin and hematocrit levels. 5. Hyperlipidemia, mixed (E78.2) Managed with atorvastatin 20 mg daily. - Ordered lipid panel to assess cholesterol levels. 6. 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 Patient reports difficulty with mobility and frequent falls. - Encouraged continuation of physical therapy exercises at home to maintain strength and balance. 7. 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 8. skilled nursing (current) use of bisphosphonates (Z79.83) Taking Fosamax once weekly. 9. Long-term current use of proton pump inhibitor therapy (Z79.899) Taking omeprazole for gastric acid suppression. 10. History of falling (Z91.81) Recent falls reported, with the last incident occurring a few months ago. Patient uses a walker formobility. - Reinforced the importance of using the walker consistently to prevent further falls. 11. Encounter for Medicare annual wellness exam (Z00.00) Completed during visit. Blood pressure recorded at 128/78 mmHg. - Scheduled follow-up in 6 months. I agree with the Chief Complaint, ROS, and Past Histories independently gathered by the clinical community support associate and the remaining scribed note accurately describes my personal service to the patient. Recording using ambient [employer] software for draft documentation of the visit was discussed with the patient/authorized senior human resources representative; all questions welcomed and answered. Patient/authorized senior human resources representative agreed to proceed Medical Decision Making: Problems: Moderate: 2+ stable chronic illnesses Data: Unique test(s) ordered: 3+ Risk: Moderate: Drug management Medical Decision Making Level: 4 - Moderate Vera Pompa MD The documentation for this note was completed by Nettie Brandt MA acting as scribe for Vera Pompa MD. September 03, 2024 12:06 PM. Nettie Brandt MA documented in this encounterK[facility] NoteHNO ID: [id number] Author: VERA POMPA MD Service: ? Author Type: Physician Type: Progress Notes Filed: 09/03/2024 12:39 Note Text: Brianne Cochran is a 78 year old female here for a Medicare wellness visit. Medicare Health Risk Assessment General Health Fair Exercise: Minutes/Day 0 min Exercise: Days/Week 0 days Alcohol: Daily Use Never Alcohol: Drinks/Day Patient does not drink Alcohol: 6 or more drinks Never Feel off balance Yes (uses a walker) Concerns: Teeth/Dentures No Concerns: Sexual function No Troubled by feelings None of the above Frequency: Eating healthy diet More than half the days ADLs requiring help None of the above; Driving Safety precautions in home/vehicle Yes Smoke, vape, chews tobacco No Difficulty hearing No Difficulty seeing Yes Current Providers Specialists: I have reviewed specialist-related care of the patient in the medical record. Current care team: Patient Care Team: Vera Pompa MD as PCP - General (Family Medicine) Luis Enrique Caicedo APRN.BERNIE as Medical Assistant Cardiology (Family Medicine) Medical/Family history review Reviewed and updated problem list, medical/surgical/family/social history, medications, and allergies. Opioid use review Opioid Medications (last 90 days) No data to display Anxiety/Depression screening PHQ-2 Score: 1 (Lower risk for depression) Recommendation: no further intervention at this time Cognitive screening Mini Cog Score: 4 Cognitive screening reviewed and No further action needed (score 3-5). Functional Observation Was the patient's Timed Up AND Go test unsteady or >= 12 seconds? Yes Advance Care Planning Surrogate decision maker and/or advance care plan documented Measurements BP 128/78 Pulse 86 Resp 16 Ht 149.9 cm (4' 11) Wt 59.8 kg (131 lb 13.4 oz) SpO2 99% BMI 26.63 kg/m? Vision Screening: Right: 20/40 Left: 20/ 40 Both: Assessment/Plan Medicare annual wellness visit, initial (Z00.00) - Counseled on healthy diet and regular exercise - Fall avoidance information provided - Personalized prevention plan provided - Discussed need for and benefit of weight loss. BMI 26.63 kg/(m2) Chief Complaint Patient presents with: Medicare Wellness Exam Follow up HPI Brianne Cochran is a 78 year old female who presents here today for follow up BP and Nose bleed. Here with . Brianne Cochran is a 78-year-old female, with a history of falls, osteoporosis, and depression, presenting for a Medicare Annual Wellness Visit. Brianne reports difficulty with mobility and balance, stating, It's just hard for me to do anything. She uses a walker for ambulation and has experienced multiple falls, with the most recent fall occurring a few months ago. She also had a fall earlier this year, resulting in rib fractures and a compression fracture of the spine, for which she was hospitalized and underwent rehabilitation. She reports recovery from these injuries but notes a perceived worsening of strength and balance over time, stating, I feel like it's getting worse, I can't do nothing anymore. She denies understanding the cause of her falls, stating, I don't know why. Brianne has a son who lives nearby and monitors her well-being, especially in the evenings. She has a ramp built by her religious to facilitate easier access to her home. She has participated in physical therapy in the past but has not done so recently. She possesses weights and resistance bands at home but admits to forgetting to use them regularly. Brianne was seen in the emergency room a few weeks ago for a nosebleed, which was treated with cauterization. She denies a history of epistaxis and reports no issues since the incident. She is currently on multiple medications, including levothyroxine 100 mcg daily, atorvastatin 20 mg daily, omeprazole, fluoxetine for depression, calcium, and alendronate once a week for osteoporosis. She denies current use of gabapentin and has Flexeril prescribed as needed. She reports doing okay on her medications and denies needing any refills at this time. Brianne tries to maintain a healthy diet, consuming vegetables and fruits daily, but admits to enjoying ice cream and candy. She denies seeing any other specialists and has advanced directives set up, though they have not been distributed. Past medical history, appointments, medications, allergies reviewed. [...] Procedure Laterality Date BREAST BIOPSY Left 12/16/2016 [facility]-Dr. Sandhu DELIVERY ONLY C-sect (more content not included)...[facility]06-17-2025 Telephone encounter Note* Telephone Encounter - Luis Enrique Caicedo APRN.CNP - 08/28/2024 9:47 AM EDT The following approved medication requests have been transmitted electronically. Requested Prescriptions Pending Prescriptions Disp Refills omeprazole (PRILOSEC) 20 mg capsule 90 capsule 3 Sig: Take 1 capsule by mouth daily before breakfast. 1/2 hr before meal. Luis Enrique Caicedo APRN.CNP [facility]06-17-2025 Miscellaneous Notes* Telephone Encounter - Luis Enrique Caicedo APRN.CNP - 08/28/2024 9:47 AM EDT The following approved medication requests have been transmitted electronically. Requested Prescriptions Pending Prescriptions Disp Refills omeprazole (PRILOSEC) 20 mg capsule 90 capsule 3 Sig: Take 1 capsule by mouth daily before breakfast. 1/2 hr before meal. Luis Enrique Caicedo APRN.CNP * Telephone Encounter - Carole Joy RN - 08/28/2024 9:22 AM EDT The patient has been identified by name and date of : Yes Caregiver verified no other encounters exist for this prescription request: Yes Caregiver confirmed with patient/requestor that no other refills are due, in the near future, with this provider at this time: Yes The last office visit in the department: 09/01/2023 Does the patient have a future office visit with this provider/department: 09/03/2024 Requested Prescriptions Pending Prescriptions Disp Refills omeprazole (PRILOSEC) 20 mg capsule 90 capsule 3 Sig: Take 1 capsule by mouth daily before breakfast. 1/2 hr before meal. Carole Joy RN August 28, 2024 9:22 AM documented in this encounterK[facility]06-[facility]-2025 Telephone encounter Note * Telephone Encounter - Carole Joy RN - 08/28/2024 9:22 AM EDT The patient has been identified by name and date of : Yes Caregiver verified no other encounters exist for this prescription request: Yes Caregiver confirmed with patient/requestor that no other refills are due, in the near future, with this provider at this time: Yes The last office visit in the department: 09/01/2023 Does the patient have a future office visit with this provider/department: 09/03/2024 Requested Prescriptions Pending Prescriptions Disp Refills omeprazole (PRILOSEC) 20 mg capsule 90 capsule 3 Sig: Take 1 capsule by mouth daily before breakfast. 1/2 hr before meal. Carole Joy RN August 28, 2024 9:22 AM [facility]06-12-2025 Telephone encounter Note* Telephone Encounter - Vera Pompa MD - 08/23/2024 8:16 AM EDT OK to refill as ordered Vera Pompa MD [facility]06-12-2025 Miscellaneous Notes* Telephone Encounter - Vera Pompa MD - 08/23/2024 8:16 AM EDT OK to refill as ordered Vera Pompa MD * Telephone Encounter - Celso Gutierres RN - 08/22/2024 11:16 AM EDT Next OV with Dr. Pompa on 09/03/24. Last visit with neurosurgery was 06/21/24. PT was recommended. * Telephone Encounter - Kim Golden - 08/22/2024 9:13 AM EDT Spouse, Berny is calling Vera Pompa MD today to request medication not on current med list: cyclobenzaprine (FLEXERIL) 5 mg tablet taking one tablet 3 times daily as needed Last filled on 01/02/2024 Please send to [facility] mail order for 90 day rx Patient has been identified by name and birthdate. Duration of symptoms: N/A Person calling: self Call patient at: at home [phone] (home) [phone] (cell) Was an appointment scheduled: No Kim Das documented in this encounterK[facility]06-[facility]-2025 Telephone encounter Note * Telephone Encounter - Celso Gutierres RN - 08/22/2024 11:16 AM EDT Next OV with Dr. Pompa on 09/03/24. Last visit with neurosurgery was 06/21/24. PT was recommended. [facility]06-11-20[facility] Telephone encounter Note* Telephone Encounter - Kim Golden - 08/22/2024 9:13 AM EDT Spouse, Berny is calling Vera Pompa MD today to request medication not on current med list: cyclobenzaprine (FLEXERIL) 5 mg tablet taking one tablet 3 times daily as needed Last filled on 01/02/2024 Please send to [facility] mail order for 90 day rx Patient has been identified by name and birthdate. Duration of symptoms: N/A Person calling: self Call patient at: at home [phone] (home) [phone] (cell) Was an appointment scheduled: Juliette Dsa [facility]06-10-2025 Discharge summary [facility] Medical Records Department [address] [place] [id number] Emergency Department Summary 08/21/24 MR#: [id number] Acct: [id number] Name: BRIANNE COCHRAN Rep #:[id number] : 1945 78 From: Graham Lozano MD PCP: Dr. Vera Pompa MD Status:RE G ER Location: ED HPI History of Present Illness Chief Complaint: Nosebleed Detail of Chief Complaint: Spontaneous nosebleed left naris Informant: patient Onset/Context/Timing Onset: Hours (45 minutes prior to arrival) Context: Sudden Onset Timing: Continuous Quality: Bleeding from left naris Location: Left Current Severity: Mild Maximum Severity: Mild Worsened by: Nothing Relieved by: Nothing Associated Symptoms Associated Symptoms: None Narrative Narrative: Patient is a 78-year-old woman. She states she was sitting when she noted bloodfrom the left nares.There is no trauma. She does not have history of hypertension. She is not on antithrombotic or anticoagulant to her knowledge. She states she took 2 acetaminophen prior to the nosebleed. Patient denies headache. Patient Nuys visual, ocular auditory symptoms. Prior similar symptoms: Yes Recent Illness/Hospitalization: No PFSH PFSH Medical History Hypothyroid Non-smoker Sleep apnea Hypertension Migraines Chronic anemia Obesity Anxiety and depression GERD (gastroesophageal reflux disease) HLD (hyperlipidemia) PAF (paroxysmal atrial fibrillation) Fibromyalgia Osteoporosis Paroxysmal atrial fibrillation T12 compression fracture Closed right hip fracture Syncope Home Medications ?Medication ?Instructions ?Recorded ?Last Taken ?Type alendronate 70 mg tablet 70 mg PO UD osteoporosis 08/16/24 History atorvastatin 20 mg tablet 20 mg PO QHS HLD 09/07/22 History fluoxetine 40 mg capsule 40 mg PO DAILY depression 09/10/22 History omeprazole 20 mg capsule,delayed 20 mg PO DAILY GERD 0 09/07/22 05/09/24 History release calcium carbonate 500 mg (2.5 x 200 mg calcium (500 09/10/22 08/21/24 Rx mg)) PO TIDCM supplement #30 tabs levothyroxine 100 mcg tablet 100 mcg PO DAILY THYROID 05/05/24 08/21/24 History cholecalciferol (vitamin D3) 25 50 mcg (2 x 25 mcg (1, 000 unit)) 05/22/24 Unknown Rx mcg (1,000 unit) tablet PO DAILY #0 tabs multivitamin-iron 9 mg-folic acid 1 tab PO DAILYCM #0 tabs 05/22/24 Unknown Rx 400 mcg-calcium and minerals tablet (Therapeutic-M) acetaminophen 500 mg tablet 1,000 mg PO Q8 PRN pain 08/21/24 History Allergy/AdvReac Type Severity Reaction Status Date / Time codeine Allergy Unknown Verified 08/21/24 15:45 codeine phosphate (From AdvReac Unknown Verified 08/21/24 15:45 Tylenol-Codeine #3) nabumetone (From Relafen) AdvReac Unknown Verified 08/21/24 15:45 naproxen AdvReac Unknown Verified 08/21/24 15:45 Family History Mother Cancer Father Cancer Surgical History S/P ORIF (open reduction internal fixation) fracture History of section H/O ovarian cystectomy History of total right hip replacement S/P kyphoplasty S/P ORIF (open reduction internal fixation) fracture Social History household members: spouse Smoking Status: Never smoker alcohol intake: never substance use type: does not use ROS ROS ED Constitutional Constitutional ED: Denies chills or fever(s) Eyes Eyes: Denies blurry vision or change in vision ENT ENT ED: Reports other Details: Per HPI narrative ; Denies ear pain, rhinorrhea or sore throat Cardiovascular Cardiovascular: Reports chest pain and palpitations Respiratory/Chest Respiratory/Chest: Reports dyspnea and dyspnea on exertion Hematologic/Lymphatic Hematologic/Lymphatic: Reports systems reviewed and no addt'l complaints, exceptas documented; Denies easy bleeding or easy bruising EXAM Physical Exam Const Vital Signs: 08/21/24 15:44 Temperature 97.4 F L Temperature Source Temporal Pulse Rate 86 Respiratory Rate 18 Blood Pressure 159/88 H Blood Pressure Mean 111 Pulse Ox 98 Oxygen Delivery Method Room Air Positive well nourished and well developed General Appearance ED: well developed and NAD; Negative for pallor HEENT Reports moist mucous membranes HEENT Narrative: Head is atraumatic and normocephalic. Ears normal. In the middle of Calci-Mix plexus on the left there is a small arterial bleed noted. Plan is to anesthetize her nose using Hilaria solution and then cauterized the area around the bleeding site. Eyes PERRL and EOMs intact bilaterally General Eye ED: Negative for pale conjunctiva or scleral icterus Resp normal respiratory effort Cardio regular rate and regular rhythm Neuro oriented x3 and CN's II-XII intact bilaterally Sensorium / Orientation: alert Psych mental status grossly normal Skin no rashes or lesions noted, no wounds and skin turgor normal General Skin Exam: Negative for jaundice or pallor MDM MDM MDM Narrative Medical decision making narrative: Patient with spontaneous epistaxis due to arterial bleed on the left. Plan is to anesthetize area and then cauterized using silver nitrate. Patient's blood pressure is elevated. Review of her meds indicates she is on no antihypertensive medication. Procedures Other Procedures Procedure(s): Left naris was anesthetized using Hilaria solution. After 20 minutes passed the saturated cotton with manage solution was removed. There wasno active bleeding noted. The area was cauterized i.e. around the bleeding site. There is no further bleeding. In light of this patient was [facility] with appropriate home-going instructions. Discharge Plan Triage Chief Complaint: Nosebleed ED Provider: Graham Lozano Dx/Rx/DC Orders Clinical Impression: Acute anterior epistaxis, HLD (hyperlipidemia), GERD (gastroesophageal reflux disease), Elevated blood-pressure reading without diagnosis of hypertension, History of hypothyroidism Instructions: ED Epistaxis (Adult), ED Hypertension, To Be Confirmed Prescriptions: No Action fluoxetine 40 mg capsule 40 mg PO DAILY atorvastatin 20 mg tablet 20 mg PO QHS Patient Comments: PT THINKS SHE IS TAKING SOMETHING FOR CHOLESTEROL AND THAT IT MAY BE ATORVASTATIN alendronate 70 mg tablet 70 mg PO UD Rx Instructions: weekly. omeprazole 20 mg capsule,delayed release(DR/EC) 20 mg PO DAILY calcium carbonate 200 mg calcium (500 mg) Tablet,Chewable 500 mg PO TIDCM Qty: 30 0RF cholecalciferol (vitamin D3) 25 mcg (1,000 unit) Tablet 50 mcg PO DAILY Qty: 0 0RF Therapeutic-M 9 mg iron-400 mcg Tablet 1 tab PO DAILYCM Qty: 0 0RF levothyroxine 100 mcg tablet 100 mcg PO DAILY Patient Comments: [NO ORIGINAL SIG] acetaminophen 500 mg Tablet 1,000 mg PO Q8 PRN (Reason: pain) Primary Care Provider: Vera Pompa Referrals: Vera Pompa MD [Primary Care Provider] - 1-2 Weeks Activity Restrictions/Additional Instructions: Need to make an appointment to see your doctor, Dr. Vera Pompa, for blood pressure recheck in 1 to 2 weeks. Your blood pressure was elevated in the emergency department at 159/88. Since you do not have a history of hypertensionno further action/workup is needed. Is needed rechecked. Print Language: Andorran Disposition Disposition: Home, Self Care What to do if you have Problems For any increased pain, shortness of breath, bleeding, nausea or vomiting, chestpain, or any unexpected problems, contact your Primary Care Provider. Call [facility] ([phone]) or report tothe closest Emergency Room. Call 911 if necessary. 08/21/241744 Cosigner Signature (if applicable): CC: Dr. Vera Pompa MD ~ Signed [facility]06-10-2025 Discharge summary Author Graham Lozano [facility] Note Date/Time August 21, 2024 5:45 pm [facility] Medical Records Department [address] [place] [address] Emergency Department Summary 08/21/24 MR#: [id number] Acct: [id number] Name: BRIANNE COCHRAN Rep #:[id number] : 1945 78 From: Graham Lozano MD PCP: Dr. Vera Pompa MD Status:RE G ER Location: ED HPI History of Present Illness Chief Complaint: Nosebleed Detail of Chief Complaint: Spontaneous nosebleed left naris Informant: patient Onset/Context/Timing Onset: Hours (45 minutes prior to arrival) Context: Sudden Onset Timing: Continuous Quality: Bleeding from left naris Location: Left Current Severity: Mild Maximum Severity: Mild Worsened by: Nothing Relieved by: Nothing Associated Symptoms Associated Symptoms: None Narrative Narrative: Patient is a 78-year-old woman. She states she was sitting when she noted bloodfrom the left nares. There is no trauma. She does not have history of hypertension. She is not on antithrombotic or anticoagulant to her knowledge. She states she took 2 acetaminophen prior to the nosebleed. Patient denies headache. Patient Nuys visual, ocular auditory symptoms. Prior similar symptoms: Yes Recent Illness/Hospitalization: No PFSH PFSH Medical History Hypothyroid Non-smoker Sleep apnea Hypertension Migraines Chronic anemia Obesity Anxiety and depression GERD (gastroesophageal reflux disease) HLD (hyperlipidemia) PAF (paroxysmal atrial fibrillation) Fibromyalgia Osteoporosis Paroxysmal atrial fibrillation T12 compression fracture Closed right hip fracture Syncope Home Medications ?Medication ?Instructions ?Recorded ?Last Taken ?Type alendronate 70 mg tablet 70 mg PO UD osteoporosis 08/16/24 History atorvastatin 20 mg tablet 20 mg PO QHS HLD 09/07/22 History fluoxetine 40 mg capsule 40 mg PO DAILY depression 09/10/22 History omeprazole 20 mg capsule,delayed 20 mg PO DAILY GERD 0 09/07/22 05/09/24 History release calcium carbonate 500 mg (2.5 x 200 mg calcium (500 09/10/22 08/21/24 Rx mg)) PO TIDCM supplement #30 tabs levothyroxine 100 mcg tablet 100 mcg PO DAILY THYROID 05/05/24 08/21/24 History cholecalciferol (vitamin D3) 25 50 mcg (2 x 25 mcg (1, 000 unit)) 05/22/24 Unknown Rx mcg (1,000 unit) tablet PO DAILY #0 tabs multivitamin-iron 9 mg-folic acid 1 tab PO DAILYCM #0 tabs 05/22/24 Unknown Rx 400 mcg-calcium and minerals tablet (Therapeutic-M) acetaminophen 500 mg tablet 1,000 mg PO Q8 PRN pain 08/21/24 History Allergy/AdvReac Type Severity Reaction Status Date / Time codeine Allergy Unknown Verified 08/21/24 15:45 codeine phosphate (From AdvReac Unknown Verified 08/21/24 15:45 Tylenol-Codeine #3) nabumetone (From Relafen) AdvReac Unknown Verified 08/21/24 15:45 naproxen AdvReac Unknown Verified 08/21/24 15:45 Family History Mother Cancer Father Cancer Surgical History S/P ORIF (open reduction internal fixation) fracture History of section H/O ovarian cystectomy History of total right hip replacement S/P kyphoplasty S/P ORIF (open reduction internal fixation) fracture Social History household members: spouse Smoking Status: Never smoker alcohol intake: never substance use type: does not use ROS ROS ED Constitutional Constitutional ED: Denies chills or fever(s) Eyes Eyes: Denies blurry vision or change in vision ENT ENT ED: Reports other Details: Per HPI narrative ; Denies ear pain, rhinorrhea or sore throat Cardiovascular Cardiovascular: Reports chest pain and palpitations Respiratory/Chest Respiratory/Chest: Reports dyspnea and dyspnea on exertion Hematologic/Lymphatic Hematologic/Lymphatic: Reports systems reviewed and no addt'l complaints, exceptas documented; Denies easy bleeding or easy bruising EXAM Physical Exam Const Vital Signs: 08/21/24 15:44 Temperature 97.4 F L Temperature Source Temporal Pulse Rate 86 Respiratory Rate 18 Blood Pressure 159/88 H Blood Pressure Mean 111 Pulse Ox 98 Oxygen Delivery Method Room Air Positive well nourished and well developed General Appearance ED: well developed and NAD; Negative for pallor HEENT Reports moist mucous membranes HEENT Narrative: Head is atraumatic and normocephalic. Ears normal. In the middle of Calci-Mix plexus on the left there is a small arterial bleed noted. Plan is to anesthetize her nose using Hilaria solution and then cauterized the area around the bleeding site. Eyes PERRL and EOMs intact bilaterally General Eye ED: Negative for pale conjunctiva or scleral icterus Resp normal respiratory effort Cardio regular rate and regular rhythm Neuro oriented x3 and CN's II-XII intact bilaterally Sensorium / Orientation: alert Psych mental status grossly normal Skin no rashes or lesions noted, no wounds and skin turgor normal General Skin Exam: Negative for jaundice or pallor MDM MDM MDM Narrative Medical decision making narrative: Patient with spontaneous epistaxis due to arterial bleed on the left. Plan is to anesthetize area and then cauterized using silver nitrate. Patient's blood pressure is elevated. Review of her meds indicates she is on no antihypertensive medication. Procedures Other Procedures Procedure(s): Left naris was anesthetized using Hilaria solution. After 20 minutes passed the saturated cotton with manage solution was removed. There wasno active bleeding noted. The area was cauterized i.e. around the bleeding site. There is no further bleeding. In light of this patient was [facility] with appropriate home-going instructions. Discharge Plan Triage Chief Complaint: Nosebleed ED Provider: Graham Lozano Dx/Rx/DC Orders Clinical Impression: Acute anterior epistaxis, HLD (hyperlipidemia), GERD (gastroesophageal reflux disease), Elevated blood-pressure reading without diagnosis of hypertension, History of hypothyroidism Instructions: ED Epistaxis (Adult), ED Hypertension, To Be Confirmed Prescriptions: No Action fluoxetine 40 mg capsule 40 mg PO DAILY atorvastatin 20 mg tablet 20 mg PO QHS Patient Comments: PT THINKS SHE IS TAKING SOMETHING FOR CHOLESTEROL AND THAT IT MAY BE ATORVASTATIN alendronate 70 mg tablet 70 mg PO UD Rx Instructions: weekly. omeprazole 20 mg capsule,delayed release(DR/EC) 20 mg PO DAILY calcium carbonate 200 mg calcium (500 mg) Tablet,Chewable 500 mg PO TIDCM Qty: 30 0RF cholecalciferol (vitamin D3) 25 mcg (1,000 unit) Tablet 50 mcg PO DAILY Qty: 0 0RF Therapeutic-M 9 mg iron-400 mcg Tablet 1 tab PO DAILYCM Qty: 0 0RF levothyroxine 100 mcg tablet 100 mcg PO DAILY Patient Comments: [NO ORIGINAL SIG] acetaminophen 500 mg Tablet 1,000 mg PO Q8 PRN (Reason: pain) Primary Care Provider: Vera Pompa Referrals: Vera Pompa MD [Primary Care Provider] - 1-2 Weeks Activity Restrictions/Additional Instructions: Need to make an appointment to see your doctor, Dr. Vera Pompa, for blood pressure recheck in 1 to 2 weeks. Your blood pressure was elevated in the emergency department at 159/88. Since you do not have a history of hypertensionno further action/workup is needed. Is needed rechecked. Print Language: Andorran Disposition Disposition: Home, Self Care What to do if you have Problems For any increased pain, shortness of breath, bleeding, nausea or vomiting, chestpain, or any unexpected problems, contact your Primary Care Provider. Call [facility] ([phone]) or report to the closest Emergency Room. Call 911 if necessary. 08/21/241744 <Electronically signed by Graham Lozano MD> Cosigner Signature (if applicable): CC: Dr. Vera Pompa MD ~ Signed [facility] Work Phone: [phone]) 211-159006-10-2025 Hospital Discharge instructions Additional Instructions Need to make an appointment to see your doctor, Dr. Vera Pompa, for blood pressure recheck in 1 to 2 weeks. Your blood pressure was elevated in the emergency department at 159/88. Since you do not have a history of hypertension no further action/workup is needed. Is needed rechecked.[facility] Work Phone: [phone]) 191-550904-25-2025 NoteHNO ID: [id number] Author: ?, ?, ? Service: ? Author Type: ? Type: Progress Notes Filed: 07/06/2024 12:54 Note Text: POPULATION HEALTH NAVIGATION OUTREACH Action/FYI Patient outreach for HCC gaps; AWV. Spoke with patient and scheduled with pcp Reason for Outreach Care Gap/HCC or Scheduling Wellness Visits Care Gaps due: Medicare Annual Wellness Visit Patient Contacted: Spoke to patient/parent/or legal guardian Patient identified by name and : Yes Care Gap/HCC/Scheduling Wellness actions taken: Patient scheduled/pended orders: Medicare Annual Wellness Visit 09/03/2024 in [facility] with VERA POMPA - medicare wellness , hcc gaps Navigation Signature: Desire Barker [facility] July 06, 2024 12:53 [facility]04-25-2025 NotePatient Outreach (NETNAV) BRIANNE COCHRAN ([id number]) 1945 F Date Time Provider Department 07/06/24 VERA POMPA NETNIKUNJ During your visit today, we recorded the following information about you: Desire Guan 07/06/2024 12:54 PM Signed POPULATION HEALTH NAVIGATION OUTREACH Action/ Patient outreach for HCC gaps; AWV. Spoke with patient and scheduled with pcp Reason for Outreach Care Gap/HCC or Scheduling Wellness Visits Care Gaps due: Medicare Annual Wellness Visit Patient Contacted: Spoke to patient/parent/or legal guardian Patient identified by name and : Yes Care Gap/HCC/Scheduling Wellness actions taken: Patient scheduled/pended orders: Medicare Annual Wellness Visit 09/03/2024 in [facility] with VERA POMPA - medicare wellness , hcc gaps Navigation Signature: Desire Onofre July 06, 2024 12:53 PM Allergies As of Date: 07/06/2024 Noted Allergy Reaction ACETAMINOPHEN-CODEINE 04/07/2023 16 - Unknown BIAXIN (CLARITHROMYCIN) 03/16/2005 16 - Unknown Comments: Doesn't remember, was a long time ago CODEINE 01/05/2007 Comments: unknown-long time ago NAPROXEN 11/23/2007 2 - Rash Comments: Generalized, nonpruritic RELAFEN (NABUMETONE) 03/16/2005 16 - Unknown Comments: Doesn't remember Date Reviewed: 06/21/2024 Reviewed by: Josefina Schuster MA - Fully Assessed Reason for Visit: Population Health Navigation Outreach [3910] Cmt: Sharif Marcelo [facility] Prescriptions as of 07/06/2024 - acetaminophen (TYLENOL) 500 mg tablet 1,000 mg. - methocarbamol (ROBAXIN) 500 mg tablet Take 500 mg by mouth three times a day as needed. - FLUoxetine (PROZAC) 40 mg capsule Take 1 capsule by mouth once daily. - gabapentin (NEURONTIN) 100 mg capsule Take 1 capsule by mouth every 8 hours for 14 days. - lidocaine (SALONPAS) 4 % patch Apply 1 Patch as directed once daily. - levothyroxine (SYNTHROID) 100 mcg tablet Take 1 tablet by mouth once daily. - alendronate (FOSAMAX) 70 mg tablet Take 1 tablet by mouth one time a week. - omeprazole (PRILOSEC) 20 mg capsule Take 1 capsule by mouth daily before breakfast. 1/2 hr before meal. - atorvastatin (LIPITOR) 20 mg tablet Take 1 tablet by mouth once daily. - meclizine 25 mg chewable tablet(s) CHEW AND SWALLOW 1 TABLET THREE TIMES DAILY NEEDED FOR DIZZINESS - triamcinolone (KENALOG) 0.025 % ointment Apply [...] once daily. 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] 06/11/2013 Hyperlipidemia, mixed [E78.2] 03/12/2020 Multiple rib fractures involving four or more r*05/06/2024 Fall [W19.XXXA] 05/06/2024 Multiple closed fractures of ribs of both sides*05/06/2024 Closed wedge compression fracture of T12 verteb*05/06/2024 Acute pain due to trauma [G89.11] 05/07/2024 Acute respiratory insufficiency [R06.89] 05/07/2024 Closed wedge compression fracture of T11 verteb*05/08/2024 Trauma [T14.90XA] 05/08/2024 Syncope and collapse [R55] 05/08/2024 Lumbar spondylosis [M47.816] 06/21/2024 Gait instability [R26.81] 06/21/2024 Encounter Status:Closed by DESIRE GUAN on 07/06/24[facility]04-22-2025 NoteHNO ID: [id number] Author: RENEA LEARY RN Service: ? Author Type: Registered Nurse Type: Progress Notes Filed: 07/03/2024 10:31 Note Text: Value Based Care Coordination Chart Review Provider Action / FYI: Deferred, no CDM DX Upon review of patient chart, the patient is excluded from Chronic Disease Management Patient is not a candidate for CDM at this time and placed in the following status: Deferred Action taken: Patient routed to Navigation Team Schedule PCP appointment(s), due for annual with PCP August 2024 . Rneea Leary RN July 03, 2024 10:29 [facility]04-22-2025 History of Present illness Narrative* Renea Leary RN - 07/03/2024 10:29 AM EDT Value Based Care Coordination Chart Review Provider Action / FYI: Deferred, no CDM DX Upon review of patient chart, the patient is excluded from Chronic Disease Management Patient is not a candidate for CDM at this time and placed in the following status: Deferred Action taken: Patient routed to Navigation Team Schedule PCP appointment(s), due for annual with PCP August 2024 . Renea Leary RN July 03, 2024 10:29 AM documented in this encounterK[facility]04-22-2025 NotePatient Outreach (AMBCMG) BRIANNE COCHRAN ([id number]) 1945 F Date Time Provider Department 07/03/24 RENEA LEARY [facility] During your visit today, we recorded the following information about you: Renea Leary RN 07/03/2024 10:31 AM Signed Value Based Care Coordination Chart Review Provider Action / FYI: Deferred, no CDM DX Upon review of patient chart, the patient is excluded from Chronic Disease Management Patient is not a candidate for CDM at this time and placed in the following status: Deferred Action taken: Patient routed to Navigation Team Schedule PCP appointment(s), due for annual with PCP August 2024 . Renea Leary RN July 03, 2024 10:29 AM Allergies As of Date: 07/03/2024 Noted Allergy Reaction ACETAMINOPHEN-CODEINE 04/07/2023 16 - Unknown BIAXIN (CLARITHROMYCIN) 03/16/2005 16 - Unknown Comments: Doesn't remember, was a long time ago CODEINE 01/05/2007 Comments: unknown-long time ago NAPROXEN 11/23/2007 2 - Rash Comments: Generalized, nonpruritic RELAFEN (NABUMETONE) 03/16/2005 16 - Unknown Comments: Doesn't remember Date Reviewed: 06/21/2024 Reviewed by: Josefina Schuster MA - Fully Assessed Reason for Visit: Care Coordination [3491] Cmt: Prescriptions as of 07/03/2024 - acetaminophen (TYLENOL) 500 mg tablet 1,000 mg. - methocarbamol (ROBAXIN) 500 mg tablet Take 500 mg by mouth three times a day as needed. - FLUoxetine (PROZAC) 40 mg capsule Take 1 capsule by mouth once daily. - gabapentin (NEURONTIN) 100 mg capsule Take 1 capsule by mouth every 8 hours for 14 days. - lidocaine (SALONPAS) 4 % patch Apply 1 Patch as directed once daily. - levothyroxine (SYNTHROID) 100 mcg tablet Take 1 tablet by mouth once daily. - alendronate (FOSAMAX) 70 mg tablet Take 1 tablet by mouth one time a week. - omeprazole (PRILOSEC) 20 mg capsule Take 1 capsule by mouth daily before breakfast. 1/2 hr before meal. - atorvastatin (LIPITOR) 20 mg tablet Take 1 tablet by mouth once daily. - meclizine 25 mg chewable tablet(s) CHEW AND SWALLOW 1 TABLET THREE TIMES DAILY NEEDED FOR DIZZINESS - triamcinolone (KENALOG) 0.025 % ointment Apply [...] once daily. 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] 06/11/2013 Hyperlipidemia, mixed [E78.2] 03/12/2020 Multiple rib fractures involving four or more r*05/06/2024 Fall [W19.XXXA] 05/06/2024 Multiple closed fractures of ribs of both sides*05/06/2024 Closed wedge compression fracture of T12 verteb*05/06/2024 Acute pain due to trauma [G89.11] 05/07/2024 Acute respiratory insufficiency [R06.89] 05/07/2024 Closed wedge compression fracture of T11 verteb*05/08/2024 Trauma [T14.90XA] 05/08/2024 Syncope and collapse [R55] 05/08/2024 Lumbar spondylosis [M47.816] 06/21/2024 Gait instability [R26.81] 06/21/2024 Encounter Status:Closed by RENEA LEARY on 07/03/24[facility]04-11-2025 Telephone encounter Note* Telephone Encounter - Nuzhat Naik APRN.CNP - 06/22/2024 9:38 AM EDT Patient last seen in the office on 06/21/2024 by myself. Please refer to office note for complete documentation. Patient had known compression deformities at T11 and T12 with associated thoracolumbar kyphosis. Thoracolumbar x-rays were unable to be viewed at office visit due to computer difficulties. Thoracolumbar x-rays performed on 06/21/2024 reviewed, unchanged compared to previous imaging. Redemonstration of severe compression deformity at T11. Known compression fracture at T12 with previous kyphosis. Stable alignment compared to previous imaging. Attempted to contact patient to discuss radiographic imaging results, no answer. Unable to leave voicemail as voicemail box has not been set up yet. At last office visit, patient denied back or radicular pain. She had not been utilizing TLSO brace.Recommend continuing plan of care as previously discussed with patient to include gradually increasing activity as tolerated but caution not to overdo activity can continue TLSO brace as needed for comfort and support. Recommended participation in physical therapy for gait instability and fall prevention. Follow-up with neurosurgery on an as-needed basis if any new or worsening symptoms arise. @[email or web address]@ Nuzhat Naik APRN-BERNIE [facility]04-11-2025 Miscellaneous Notes* Telephone Encounter - Nuzhat Naik APRN.CNP - 06/22/2024 9:38 AM EDT Patient last seen in the office on 06/21/2024 by myself. Please refer to office note for complete documentation. Patient had known compression deformities at T11 and T12 with associated thoracolumbar kyphosis. Thoracolumbar x-rays were unable to be viewed at office visit due to computer difficulties. Thoracolumbar x-rays performed on 06/21/2024 reviewed, unchanged compared to previous imaging. Redemonstration of severe compression deformity at T11. Known compression fracture at T12 with previous kyphosis. Stable alignment compared to previous imaging. Attempted to contact patient to discuss radiographic imaging results, no answer. Unable to leave voicemail as voicemail box has not been set up yet. At last office visit, patient denied back or radicular pain. She had not been utilizing TLSO brace.Recommend continuing plan of care as previously discussed with patient to include gradually increasing activity as tolerated but caution not to overdo activity can continue TLSO brace as needed for comfort and support. Recommended participation in physical therapy for gait instability and fall prevention. Follow-up with neurosurgery on an as-needed basis if any new or worsening symptoms arise. @SYEDABANNER BAYWOOD MEDICAL CENTERToney@ JOSEP Sosa [facility] documented in this encounterKettering Health [facility]04-10-2025 Instructions* Patient Instructions* Nuzhat Naik APRN.CNP - 06/21/2024 2:29 PM EDT - You will receive a physical therapy order. Use it if you decide to pursue physical therapy for strengthening and gait stability. - Continue home exercises and stretches as previously instructed. - Follow up with your primary care doctor to monitor your blood pressure. - I will contact you once imaging is available to review if any change in imaging compared to previous. - Follow up on as needed basis. Monitor for any new or worsening back or leg pain, or any changes in strength. Contact our office if these symptoms occur. documented in this encounterKettering Health [facility]04-10-2025 History of Present illness Narrative* Nuzhat Naik APRN.CNP - 06/21/2024 2:00 PM EDT SPINE SURGERY FOLLOW UP NOTE Nuzhat Naik APRN-BERNIE Date of visit: June 21, 2024 Patient Name: Ms.Joyce Ricardo Cochran Date of : 1945 Current Age: [age] year old Sex: female MRN/E# [id number] Last Office Visit: 05/10/2024 Chief Complaint: Patient presents with: [facility] Neurosurgery Encounter: Dr. Benedict progress note from 05/06/24: NS plan of care - MRI reviewed; chronic T11, T12 fractures. No edema to suggest any acuity. Pain seems to be coming from rib fractures. Neuro intact on exam. TLSO brace for comfort. Upright films in brace. Will repeat XR in 6 weeks in the outpatient setting. Terrance Benedict MD HPI: Ms.Joyce Ricardo Cochran presented to [facility] on 05/05/2024 after a ground level fall. Neurosurgery, Dr. Benedict, consulted for thoracic fractures. MRI of thoracic spine reviewed by Dr. Benedict and noted chronic T11 and 12 fracture with no edema to suggest acuity. Nonoperative management with a TLSO brace for comfort was recommended. She was asked to follow-up outpatient with neurosurgery in 6 weeks time with repeat thoracic x-rays, prompting her visit today. Brianne is a 78-year-old female presenting for follow-up after a recent hospitalization. Brianne reports significant improvement in back pain, currently rating it as 0/10. She does not endorse any sharp,shooting, or stabbing pain radiating into her legs. She has not been wearing her TLSO brace, which was previously recommended for comfort and support. She does not report any falls since her last hospitalization. She describes difficulty with leg strength, particularly when climbing stairs, and notes a decrease in arm strength. She has not been participating in physical therapy recently but expresses willingness to resume exercises at home. Symptoms: Gait instability. Denied back or radicular pain PAIN EVALUATION No data found in the last 1 encounters. PAST MEDICAL HISTORY Diagnosis Date Adjustment disorder with depressed mood Breast calcifications 12/2016 Depression Iron deficiency anemia, unspecified Lateral sclerosis Migraine headache without aura <=1 per month as of May 2013 Myalgia and myositis, unspecified Osteoarthritis Spastic paresis (HCC) Unspecified hypothyroidism PAST SURGICAL HISTORY Procedure Laterality Date BREAST BIOPSY Left 12/16/2016 [facility]-Dr. Sandhu DELIVERY ONLY , low transverse x 2 HIP SURGERY HX Left 09/08/[address], [address] Benson PAST SURGICAL HISTORY OF cyst removed from ovaries FAMILY HISTORY Problem Relation Age of Onset Psychiatry Father Cancer Father lymphoma Headache Father other (HTN) Father Cancer Mother brain mets Psychiatry Mother depression/anxiety Headache Mother other (HTN) Mother Colon Cancer Other none Coronary Artery Disease Other none Breast Cancer Sister ALLERGIES Allergen Reactions Acetaminophen-Codei* Unknown Biaxin [Clarithromy* Unknown Doesn't remember, was a long time ago Codeine unknown-long time ago Naproxen Rash Generalized, nonpruritic Relafen [Nabumetone] Unknown Doesn't remember Current Outpatient Medications Medication Sig Dispense Refill acetaminophen (TYLENOL) 500 mg tablet 1,000 mg. methocarbamol (ROBAXIN) 500 mg tablet Take 500 mg by mouth three times a day as needed. FLUoxetine (PROZAC) 40 mg capsule Take 1 capsule by mouth once daily. 90 capsule 3 gabapentin (NEURONTIN) 100 mg capsule Take 1 capsule by mouth every 8 hours for 14 days. 42 capsule0 levothyroxine (SYNTHROID) 100 mcg tablet Take 1 tablet by mouth once daily. 90 tablet 3 alendronate (FOSAMAX) 70 mg tablet Take 1 tablet by mouth one time a week. 12 tablet 3 omeprazole (PRILOSEC) 20 mg capsule Take 1 capsule by mouth daily before breakfast. 1/2 hr before meal. 90 capsule 3 atorvastatin (LIPITOR) 20 mg tablet Take 1 tablet by mouth once daily. 90 tablet 3 meclizine 25 mg chewable tablet(s) CHEW AND SWALLOW 1 TABLET THREE TIMES DAILY NEEDED FOR DIZZINESS triamcinolone (KENALOG) 0.025 % ointment Apply 1 application to affected area twice daily. 15 g 1 MULTIVITS W-FE,OTHER MIN/LUT (CENTRUM SILVER ULTRA WOMEN'S ORAL) Take 1 tablet by mouth once daily. calcium carbonate 600 mg-cholecalciferol 400 units 600 mg-10 mcg (400 unit) tab Take 1 tablet by mouth once daily. Cholecalciferol, Vitamin D3, 2,000 unit ORAL Cap Take 1 capsule by mouth once daily. 0 lidocaine (SALONPAS) 4 % patch Apply 1 Patch as directed once daily. (Patient not taking: Reported on 06/21/2024) No current facility-administered medications for this visit. REVIEW OF SYSTEMS Review of Systems Constitutional: Positive for activity change. Negative for chills, diaphoresis and fever. Respiratory: Negative for cough, shortness of breath and wheezing. Genitourinary: Negative for difficulty urinating, frequency and urgency. Musculoskeletal: Positive for gait problem. Negative for back pain and neck pain. Skin: Negative for rash and wound. Neurological: Positive for weakness. Negative for dizziness and numbness. Hematological: Does not bruise/bleed easily. Psychiatric/Behavioral: Negative for agitation. The patient is not nervous/anxious. OBJECTIVE: BP 131/84 Pulse 84 Ht 5' 0 (1.52m) Wt 130 lb (59.0kg) SpO2 96% BMI 25.39 kg/(m^2). PHYSICAL EXAM: General appearance: No apparent distress. Mental State : Oriented to person, place and time. Pulmonary: Respirations regular and unlabored. Skin: Intact, warm, dry. MUSCULOSKELETAL Sensory: Sensation intact to light touch Palpation: SPINOUS PROCESS: No thoracic TTP Motor: Normal muscle tone and bulk. No tremor or uncontrollable movements. Gait and Station: In wheelchair MUSCLE TONE and BULK: Symmetrical in the upper & lower extremities. Upper Extremity Strength Exam Right Left Deltoid 5/5 5/5 Biceps 5/5 5/5 Triceps 5/5 5/5 Wrist Extension 5/5 5/5 Interossei 5/5 5/5 Lower Extremity Strength Exam Right Left Psoas 5/5 5/5 Quadriceps 5/5 5/5 DF 5/5 5/5 EHL 5/5 5/5 PF 5/5 5/5 Data Review: CT thoracic spine completed on 05/06/24: IMPRESSION: No acute thoracic spine fracture. T11 and T3 fractures were present on 2013 exam and have unchanged appearance. This includes unchanged retropulsion at T11 which causes moderate to possibly moderate to severe central canal effacement. Focal kyphosis at T11 and T12 has intervally increased from 2013 comparison. Any degree of associated cord compression can be further evaluated with ordered MRI. T12 fracture is new from 2013 but has kyphoplasty. This also causes moderate to possibly moderate to severe central canal effacement secondary to retropulsion from near vertebral plana morphology. Other relevant incidental findings as above Anatomic Thoracic/Lumbar Variant: MRI cervical, thoracic, and lumbar spine completed on 05/06/2024: IMPRESSION: Chronic compression deformities involving T3, T11 and T12 levels with retropulsion at T11 and T12 levels contributing to mild-moderate spinal canal stenosis. No cord compression. No bone marrow edema to suggest acute fracture elsewhere. Normal morphology and signal intensity of the spinal cord and cauda equina. No severe spinal canal stenosis throughout the cervical, thoracic, and lumbar regions. Cervical Anatomic Variant: None. Assume 7 cervical vertebrae with counting from the craniocervical junction. Anatomic Thoracic/Lumbar Variant: None. L4-5 is considered the level of the iliac crest and assume there are 5 lumbar-type vertebrae. Thoracolumbar x-rays completed on 05/07/2024: IMPRESSION: Little interval change regarding severe compression deformities of the T11 and T12 vertebral bodies with associated thoracolumbar kyphosis. Findings compatible with constipation again noted. Thoracolumbar x-rays completed on 06/21/2024: Pending- unable to upload due to computer malfunctions Assessment/Plan: -Closed wedge compression fracture of T12 vertebra, sequela (S22.080S) -No current back pain at todays visit -No thoracic TTP -Previous MRI thoracic spine indicated old fractures per Dr. Benedict [facility] progress note; no surgical intervention required. -Repeat thoracolumbar x-rays unavailable to view at this time due to imaging uploading difficulties; will review and contact patient if abnormalities are found. - Advised use of TLSO brace as needed for comfort and support. -Recommended participation in physical therapy for gait instability and fall prevention - Follow-up on an as-needed basis for any new or worsening symptoms. Gait instability (R26.81) - No recent falls reported; no dizziness or tripping incidents. - Full strength in upper and lower extremities on examination. - Discussed benefits of physical therapy for gait and fall prevention. - Provided order for physical therapy at [facility]; patient to initiate if desired. The patient consented to the use of Waking[employer] software for draft documentation of the visit consistent with [facility] Notice of Privacy Practices. Nuzhat Naik APRN-AUTOMATION ANALYST [facility] This note was partially generated using beModel voice recognition system, and there may be some incorrect words, spellings, and punctuation that were not noted in checking the note before saving. documented in this encounterKettering Health [facility]04-10-2025 History of Present illness Narrative* Madelaine Arredondo RT(R) - 06/21/2024 2:00 PM EDT Radiology Service Progress Note PATIENT NAME: Brianne Cochran DATE OF SERVICE: June 21, 2024 TIME: 1:33 PM PATIENT IDENTITY VERIFICATION COMPLETED USING TWO (2) IDENTIFIERS: Name and Date of confirmedby patient verbally. FALL SCREENING: Has the patient had 2 falls in the last year or 1 fall with injury or currently using an Ambulatory Assistive Device (Walker, Cane, Wheelchair, Crutches, etc.)? No PATIENT GENDER DATA: PATIENT RELEVANT IMPLANT DATA REVIEWED: Not Applicable PATIENT PRESENTS WITH AN IMPLANTABLE OR ATTACHED QUARTER FOLDER: No RADIOLOGY DEPARTMENT: General X-ray: Exam(s) Completed: Spine X-Ray(s): Thoraco Lumbar Junction PERIPHERAL IV DATA: Not applicable SIGNED BY: RT Bran(R) June 21, 2024 1:33 PM documented in this encounterKettering Health [facility]04-10-2025 NoteHNO ID: [id number] Author: MADELAINE ARREDONDO RT(R) Service: ? Author Type: Technologist Type: Progress Notes Filed: 06/21/2024 13:34 Note Text: Radiology Service Progress Note PATIENT NAME: Brianne Cochran DATE OF SERVICE: June 21, 2024 TIME: 1:33 PM PATIENT IDENTITY VERIFICATION COMPLETED USING TWO (2) IDENTIFIERS: Name and Date of confirmed by patient verbally. FALL SCREENING: Has the patient had 2 falls in the last year or 1 fall with injury or currently using an Ambulatory Assistive Device (Walker, Cane, Wheelchair, Crutches, etc.)? No PATIENT GENDER DATA: PATIENT RELEVANT IMPLANT DATA REVIEWED: Not Applicable PATIENT PRESENTS WITH AN IMPLANTABLE OR ATTACHED QUARTER FOLDER: No RADIOLOGY DEPARTMENT: General X-ray: Exam(s) Completed: Spine X-Ray(s): Thoraco Lumbar Junction PERIPHERAL IV DATA: Not applicable SIGNED BY: RT Bran(R) June 21, 2024 1:33 [facility]04-10-2025 NoteHNO ID: [id number] Author: NUZHAT NAIK APRN.BERNIE Service: ? Author Type: Nurse Practitioner Type: Progress Notes Filed: 06/21/2024 14:42 Note Text: SPINE SURGERY FOLLOW UP NOTE Nuzhat Naik APRN-BERNIE Date of visit: June 21, 2024 Patient Name: Ms.Joyce Ricardo Cochran Date of : 1945 Current Age: [age] year old Sex: female MRN/E# [id number] Last Office Visit: 05/10/2024 Chief Complaint: Patient presents with: [facility] Neurosurgery Encounter: Dr. Benedict progress note from 05/06/24: NS plan of care - MRI reviewed; chronic T11, T12 fractures. No edema to suggest any acuity. Pain seems to be coming from rib fractures. Neuro intact on exam. TLSO brace for comfort. Upright films in brace. Will repeat XR in 6 weeks in the outpatient setting. Terrance Benedict MD HPI: Ms.Joyce Ricardo Cochran presented to [facility] on 05/05/2024 after a ground level fall. Neurosurgery, Dr. Benedict, consulted for thoracic fractures. MRI of thoracic spine reviewed by Dr. Benedict and noted chronic T11 and 12 fracture with no edema to suggest acuity. Nonoperative management with a TLSO brace for comfort was recommended. She was asked to follow-up outpatient with neurosurgery in 6 weeks time with repeat thoracic x-rays, prompting her visit today. Brianne is a 78-year-old female presenting for follow-up after a recent hospitalization. Brianne reports significant improvement in back pain, currently rating it as 0/10. She does not endorse any sharp, shooting, or stabbing pain radiating into her legs. She has not been wearing her TLSO brace, which was previously recommended for comfort and support. She does not report any falls since her last hospitalization. She describes difficulty with leg strength, particularly when climbing stairs, and notes a decrease in arm strength. She has not been participating in physical therapy recently but expresses willingness to resume exercises at home. Symptoms: Gait instability. Denied back or radicular pain PAIN EVALUATION No data found in the last 1 encounters. PAST MEDICAL HISTORY Diagnosis Date Adjustment disorder with depressed mood Breast calcifications 12/2016 Depression Iron deficiency anemia, unspecified Lateral sclerosis Migraine headache without aura <=1 per month as of May 2013 Myalgia and myositis, unspecified Osteoarthritis Spastic paresis (HCC) Unspecified hypothyroidism PAST SURGICAL HISTORY Procedure Laterality Date BREAST BIOPSY Left 12/16/2016 [facility]-Dr. Sandhu DELIVERY ONLY , low transverse x 2 HIP SURGERY HX Left 09/08/[address], [address] Benson PAST SURGICAL HISTORY OF cyst removed from ovaries FAMILY HISTORY Problem Relation Age of Onset Psychiatry Father Cancer Father lymphoma Headache Father other (HTN) Father Cancer Mother brain mets Psychiatry Mother depression/anxiety Headache Mother other (HTN) Mother Colon Cancer Other none Coronary Artery Disease Other none Breast Cancer Sister ALLERGIES Allergen Reactions Acetaminophen-Codei* Unknown Biaxin [Clarithromy* Unknown Doesn't remember, was a long time ago Codeine unknown-long time ago Naproxen Rash Generalized, nonpruritic Relafen [Nabumetone] Unknown Doesn't remember Current Outpatient Medications Medication Sig Dispense Refill acetaminophen (TYLENOL) 500 mg tablet 1,000 mg. methocarbamol (ROBAXIN) 500 mg tablet Take 500 mg by mouth three times a day as needed. FLUoxetine (PROZAC) 40 mg capsule Take 1 capsule by mouth once daily. 90 capsule 3 gabapentin (NEURONTIN) 100 mg capsule Take 1 capsule by mouth every 8 hours for 14 days. 42 capsule 0 levothyroxine (SYNTHROID) 100 mcg tablet Take 1 tablet by mouth once daily. 90 tablet 3 alendronate (FOSAMAX) 70 mg tablet Take 1 tablet by mouth one time a week. 12 tablet 3 omeprazole (PRILOSEC) 20 mg capsule Take 1 capsule by mouth daily before breakfast. 1/2 hr before meal. 90 capsule 3 atorvastatin (LIPITOR) 20 mg tablet Take 1 tablet by mouth once daily. 90 tablet 3 meclizine 25 mg chewable tablet(s) CHEW AND SWALLOW 1 TABLET THREE TIMES DAILY NEEDED FOR DIZZINESS triamcinolone (KENALOG) 0.025 % ointment Apply 1 application to affected area twice daily. 15 g 1 MULTIVITS W-FE,OTHER MIN/LUT (CENTRUM SILVER ULTRA WOMEN'S ORAL) Take 1 tablet by mouth once daily. calcium carbonate 600 mg-cholecalciferol 400 units 600 mg-10 mcg (400 unit) tab Take 1 tablet by mouth once daily. Cholecalciferol, Vitamin D3, 2,000 unit ORAL Cap Take 1 capsule by mouth once daily. 0 lidocaine (SALONPAS) 4 % patch Apply 1 Patch as directed once daily. (Patient not taking: Reported on 06/21/2024) No current facility-administered medications for this visit. REVIEW OF SYSTEMS Review of Systems Constitutional: Positive for activity change. Negative for chills, diaphoresis and fever. Respiratory: Negative for cough, shor (more content not included)...[facility]03-21-2025 NoteHNO ID: [id number] Author: LUIS EDUARDO BANERJEE MA Service: ? Author Type: Engraving Plate Maker Type: Progress Notes Filed: 06/01/2024 13:56 Note Text: POPULATION HEALTH NAVIGATION OUTREACH Action/FYI spoke to pt to schedule wellness, hcc gap closure, follow up- pt asked for call back once her is home to check their schedules Reason for Outreach Care Gap/HCC or Scheduling Wellness Visits Care Gaps due: Medicare Annual Wellness Visit Follow-up Appointment Patient Contacted: Spoke to patient/parent/or legal guardian Patient identified by name and : Yes Care Gap/HCC/Scheduling Wellness actions taken: Patient declined: Patient requested call back from navigator/ will call navigator back HCC related Navigation Signature: Luis Eduardo Banerjee MA June 01, 2024 1:[address] History of Present illness Narrative* Luis Eduardo Banerjee MA - 06/01/2024 1:55 PM EDT POPULATION HEALTH NAVIGATION OUTREACH Action/FYI spoke to pt to schedule wellness, hcc gap closure, follow up- pt asked for call back once her is home to check their schedules Reason for Outreach Care Gap/HCC or Scheduling Wellness Visits Care Gaps due: Medicare Annual Wellness Visit Follow-up Appointment Patient Contacted: Spoke to patient/parent/or legal guardian Patient identified by name and : Yes Care Gap/HCC/Scheduling Wellness actions taken: Patient declined: Patient requested call back from navigator/ will call navigator back HCC related Navigation Signature: Luis Eduardo Banerjee MA June 01, 2024 1:55 PM documented in [facility] encounterK[facility] NotePatient Outreach (NETNAV) BRIANNE COCHRAN ([id number]) 1945 F Date Time Provider Department 06/01/24 LUIS EDUARDO BANERJEE During your visit today, we recorded the following information about you: Luis Eduardo Banerjee MA 06/01/2024 1:56 PM Signed POPULATION HEALTH NAVIGATION OUTREACH Action/FYI spoke to pt to schedule wellness, hcc gap closure, follow up- pt asked for call back once her is home to check their schedules Reason for Outreach Care Gap/HCC or Scheduling Wellness Visits Care Gaps due: Medicare Annual Wellness Visit Follow-up Appointment Patient Contacted: Spoke to patient/parent/or legal guardian Patient identified by name and : Yes Care Gap/HCC/Scheduling Wellness actions taken: Patient declined: Patient requested call back from navigator/ will call navigator back HCC related Navigation Signature: Luis Eduardo Banerjee MA June 01, 2024 1:55 PM Allergies As of Date: 06/01/2024 Noted Allergy Reaction ACETAMINOPHEN-CODEINE 04/07/2023 16 - Unknown BIAXIN (CLARITHROMYCIN) 03/16/2005 16 - Unknown Comments: Doesn't remember, was a long time ago CODEINE 01/05/2007 Comments: unknown-long time ago NAPROXEN 11/23/2007 2 - Rash Comments: Generalized, nonpruritic RELAFEN (NABUMETONE) 03/16/2005 16 - Unknown Comments: Doesn't remember Date Reviewed: 05/06/2024 Reviewed by: Sheryl Solitario, RN - Fully Assessed Reason for Visit: Population Health Navigation Outreach [3910] Cmt: sharif ramos Prescriptions as of 06/01/2024 - FLUoxetine (PROZAC) 40 mg capsule Take 1 capsule by mouth once daily. - acetaminophen (TYLENOL) 325 mg tablet Take 3 tablets by mouth every 8 hours. - gabapentin (NEURONTIN) 100 mg capsule Take 1 capsule by mouth every 8 hours for 14 days. - lidocaine (SALONPAS) 4 % patch Apply 1 Patch as directed once daily. - polyethylene glycol 3350 17 gram packet Take 1 Packet by mouth once daily. Dissolve dose in 4 - 8 ounces of liquid and take as directed. - levothyroxine (SYNTHROID) 100 mcg tablet Take 1 tablet by mouth once daily. - levothyroxine (SYNTHROID) 100 mcg tablet Take 1 tablet by mouth once daily. Take on empty stomach - alendronate (FOSAMAX) 70 mg tablet Take 1 tablet by mouth one time a week. - omeprazole (PRILOSEC) 20 mg capsule Take 1 capsule by mouth daily before breakfast. 1/2 hr before meal. - atorvastatin (LIPITOR) 20 mg tablet Take 1 tablet by mouth once daily. - FLUoxetine (PROZAC) 40 mg capsule Take 1 capsule by mouth once daily. - meclizine 25 mg chewable tablet(s) CHEW AND SWALLOW 1 TABLET THREE TIMES DAILY NEEDED FOR DIZZINESS - senna-docusate (SENNA-S) 8.6-50 mg per tablet Take 1 tablet by mouth twice daily. - triamcinolone (KENALOG) 0.025 % ointment Apply [...] once daily. 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] 06/11/2013 Hyperlipidemia, mixed [E78.2] 03/12/2020 Multiple rib fractures involving four or more r*05/06/2024 Fall [W19.XXXA] 05/06/2024 Multiple closed fractures of ribs of both sides*05/06/2024 Closed wedge compression fracture of T12 verteb*05/06/2024 Acute pain due to trauma [G89.11] 05/07/2024 Acute respiratory insufficiency [R06.89] 05/07/2024 Closed wedge compression fracture of T11 verteb*05/08/2024 Trauma [T14.90XA] 05/08/2024 Syncope and collapse [R55] 05/08/2024 Encounter Status:Closed by LUIS EDUARDO BANERJEE on 06/01/24[facility] 05-31-2024 Telephone encounter Note* Telephone Encounter - Vera Pompa MD - 05/31/2024 3:53 PM EDT OK to refill as ordered Vera Pompa MD [facility]03-20-2025 Miscellaneous Notes* Telephone Encounter - Vera Pompa MD - 05/31/2024 3:53 PM EDT OK to refill as ordered Vera Pompa MD * Telephone Encounter - Lisa Fairchild MA - 05/31/2024 3:24 PM EDT Prescription Refill Information The patient has been identified by name and date of : Yes Caregiver verified no other encounters exist for this prescription request: Yes Caregiver confirmed with patient/requestor that no other refills are due, in the near future, with this provider at this time: Yes The last office visit in the department: 09/01/23 Does the patient have a future office visit with this provider/department: No, pt no showed her appt today for a Hospital follow up. Requested Prescriptions Pending Prescriptions Disp Refills FLUoxetine (PROZAC) 40 mg capsule 90 capsule 3 Sig: Take 1 capsule by mouth once daily. Lisa Fairchild MA May 31, 2024 3:24 PM * Telephone Encounter - Crystal Toussaint PSS - 05/31/2024 2:48 PM EDT Patient would like her FLUoxetime (PROZAC) 40 mg capsule refilled and sent to [facility]. This PSS was unable to reorder the medication. Please advice. documented in this encounterK[facility]03-20-2025 Telephone encounter Note * Telephone Encounter - Lisa Fairchild MA - 05/31/2024 3:24 PM EDT Prescription Refill Information The patient has been identified by name and date of : Yes Caregiver verified no other encounters exist for this prescription request: Yes Caregiver confirmed with patient/requestor that no other refills are due, in the near future, with this provider at this time: Yes The last office visit in the department: 09/01/23 Does the patient have a future office visit with this provider/department: No, pt no showed her appt today for a Hospital follow up. Requested Prescriptions Pending Prescriptions Disp Refills FLUoxetine (PROZAC) 40 mg capsule 90 capsule 3 Sig: Take 1 capsule by mouth once daily. Lisa Fairchild MA May 31, 2024 3:24 PM [facility]03-20-2025 Telephone encounter Note* Telephone Encounter - Crystal Toussaint PSS - 05/31/2024 2:48 PM EDT Patient would like her FLUoxetime (PROZAC) 40 mg capsule refilled and sent to [facility]. This PSS was unable to reorder the medication. Please advice. [facility]03-14-2025 Telephone encounter Note* Telephone Encounter - Madelaine Nath RN - 05/25/2024 11:56 AM EDT Apryl Staff Respiratory Therapist with [facility] called and is notified of providers message and instructions.She voices understanding. Madelaine Nath RN [facility]03-14-2025 Miscellaneous Notes* Telephone Encounter - Madelaine Nath RN - 05/25/2024 11:56 AM EDT Apryl Staff Respiratory Therapist with [facility] called and is notified of providers message and instructions.She voices understanding. Madelaine Nath RN * Telephone Encounter - Vera Pompa MD - 05/25/2024 11:50 AM EDT Yes, I will follow for SN/PT/OT/ST Vera Pompa MD * Telephone Encounter - Madelaine Nath RN - 05/25/2024 10:51 AM EDT Apryl Staff Respiratory Therapist with [facility] called and reports Pt is scheduled to be discharged from [facility] on 05/25/24 for bibasilar pneumonia, rib fracture, and back fracture. She states the Pt is supposed to be going home on O2, but they still have to do the walking test. She is asking if provider will follow for SN/PT/OT/ST. She states she may send a nurse out this weekend because the Pt may get sent home on O2 or they may go out on Tuesday05/28/24. Please call and advise. documented in this encounterK[facility]03-14-2025 Telephone encounter Note * Telephone Encounter - Vera Pompa MD - 05/25/2024 11:50 AM EDT Yes, I will follow for SN/PT/OT/ST Vera Pompa MD [facility]03-14-2025 Telephone encounter Note* Telephone Encounter - Madelaine Nath RN - 05/25/2024 10:51 AM EDT Apryl Staff Respiratory Therapist with [facility] called and reports Pt is scheduled to be discharged from [facility] on 05/25/24 for bibasilar pneumonia, rib fracture, and back fracture. She states the Pt is supposed to be going home on O2, but they still have to do the walking test. She is asking if provider will follow for SN/PT/OT/ST. She states she may send a nurse out this weekend because the Pt may get sent home on O2 or they may go out on Tuesday05/28/24. Please call and advise. [facility]03-13-2025 NoteHNO ID: [id number] Author: NETTIE BRANDT MA Service: ? Author Type: Engraving Plate Maker Type: Progress Notes Filed: 05/28/2024 09:55 Note Text: TRANSITION CARE MANAGEMENT (TCM) INITIAL CONTACT Engraving Plate Maker Outreach Provider Action/FYI: Office received discharge summary from [facility] on 05/22/24 but states in note she will be discharged home 05/25/24. Will need to call next week to do TCM. No appt scheduled with PCP at this time. Pt discharged home with [facility] PT/OT/ST. Has appt to follow up with Dr. Terrance Benedict on 06/18/24 at 10:00 AM with xrays prior. New O2 Initial contact with patient post discharge, spoke to patient. Patient identified by name and . TRANSITION CARE MANAGEMENT INITIAL OUTREACH DOCUMENTATION: No data to display SUMMARY: -Pt discharged from [facility] on 05/22/24. -Admitted for: 1) Debility 2) multiple rib fractures 3) Compression fracture of T11 vertebra 4) osteoporosis 5) HDL 6) Depression 7) Hypothyroidism 8) GERD 9) BPPV 10) Migraines Below copied from [employer]: Chief Complaint: Fall Narrative Narrative: 78-year-old female past medical history of frequent falls, experienced a fall today when she was going to go to the stove in the kitchen. At times, she often gets tripped up on her own feet and falls. She has a baseline general weakness according to her . Although he was not there at the time, he was only a few minutes away. They came home and put her in the car. She states that after she fell, she banged her right wrist on the floor trying to prevent her fall and brace it. She sustained a skin tear to her left proximal forearm as well. She denies hitting her head or loss of consciousness, states she does not take a blood thinner. She complains of left-sided posterior rib pain. No difficulty breathing. No other injuries. She is unsure of her last tetanus immunization. [facility] Narrative Medical decision making narrative: I reviewed the patient's prior records and her last Tdap was in 2019, within 6 years and current. Her wound will be cleansed and dressed. Differential diagnosis includes but not limited to right wrist fracture versus contusion and left forearm contusion versus fracture of the radius and/or ulna. Regarding her left chest tenderness, concern would be for rib contusion versus fracture. I do not feel she requires CT imaging of the brain or of the neck. She is at her baseline according to her . She was given an oxycodone tablet for analgesia which she had been previously prescribed. On my independent interpretation of the left forearm x-rays, there is no evidence of an acute fracture but noted hematoma and swelling laterally. I reviewed the radiology report which confirms that there is no evidence of fracture. On my independent interpretation of the right wrist x-rays in 3 views, there is no evidence of an acute fracture. I reviewed the radiology report which confirms my independent interpretation. I reviewed the radiology report of the CT of the chest. There are multiple bilateral rib fractures. They are mainly posterior #10 and 11 on the right and 4 through 8 on the left without evidence of pneumothorax. Given her multiple rib fractures, although her pulse ox is 96% on room air, given her age I feel she meets geriatric trauma criteria. I will add CBC, CMP, EKG, and EtOH level. I do feel that the patient will require transfer for at least observation. Patient was discussed with the [facility] Trauma transfer line. I discussed patient with Dr. Gray and she accepts her in transfer. I did obtain an EKG prior to transfer and interpreted it myself independently which demonstrates normal sinus rhythm at 96 bpm without ectopy or acute ST changes. No STEMI. She does have slightly prolonged QT interval at 492 ms. Disposition is transferred in stable condition. Hospital Course: 78 year old female with below past medical history hospitalized for fall, multiple rib fractures, compression fracture T11, treated non-operatively, admitted to TCU with debility, here for rehabilitation, strengthening, prior to discharge home with . Discharge home with 05/25/2024, [facility] PT/OT/ST, new O2. Oxygen: Patient requires 1LPM of oxygen via nasal cannula d/t chronic respiratory failure 2/2 multiple rib fractures; requires a concentrator and portable O2 tanks to allow patient to be mobile in the home and the community; O2 will improve the patient's condition in the home setting. Do you have a hospital follow up appointment with your PCP? Appointment on 05/31/24 with PCP. Yes. Remind patient of appointment date, time, and location. If not within 14 calendar days of discharge - please reschedule accordingly. MEDICATIONS: Many patients have questions or concerns about their medications once they are home. Were you prescribed any new medications? If yes, what are those medications? Methocar (more content not included)...[facility]03-13-2025 History of Present illness Narrative* Nettie Brandt MA - 05/24/2024 11:14 AM EDT Images from the original note were not included. TRANSITION CARE MANAGEMENT (TCM) INITIAL CONTACT Engraving Plate Maker Outreach Provider Action/FYI: Office received discharge summary from [facility] on 05/22/24 but states in note she will be discharged home 05/25/24. Will need to call next week to do TCM. No appt scheduled with PCP at this time. Pt discharged home with [facility] PT/OT/ST. Has appt to follow up with Dr. Terrance Benedict on 06/18/24 at 10:00 AM with xrays prior. New O2 Initial contact with patient post discharge, spoke to patient. Patient identified by name and . TRANSITION CARE MANAGEMENT INITIAL OUTREACH DOCUMENTATION: No data to display SUMMARY: -Pt discharged from [facility] on 05/22/24. -Admitted for: 1) Debility 2) multiple rib fractures 3) Compression fracture of T11 vertebra 4) osteoporosis 5) HDL 6) Depression 7) Hypothyroidism 8) GERD 9) BPPV 10) Migraines Below copied from [employer]: Chief Complaint: Fall Narrative Narrative: 78-year-old female past medical history of frequent falls, experienced a fall today when she was going to go to the stove in the kitchen. At times, she often gets tripped up on her own feet and falls. She has a baseline general weakness according to her . Although he was not there at the time, he was only a few minutes away. They came home and put her in the car. She states that after she fell, she banged her right wrist on the floor trying to prevent her fall and brace it. She sustaineda skin tear to her left proximal forearm as well. She denies hitting her head or loss of consciousness, states she does not take a blood thinner. She complains of left-sided posterior rib pain. No difficulty breathing. No other injuries. She is unsure of her last tetanus immunization. MDM Narrative Medical decision making narrative: I reviewed the patient's prior records and her last Tdap was in 2019, within 6 years and current. Her wound will be cleansed and dressed. Differential diagnosis includes but not limited to right wrist fracture versus contusion and left forearm contusion versus fracture of the radius and/or ulna. Regarding her left chest tenderness, concern would be for rib contusion versus fracture. I do not feelshe requires CT imaging of the brain or of the neck. She is at her baseline according to her . She was given an oxycodone tablet for analgesia which she had been previously prescribed. On my independent interpretation of the left forearm x-rays, there is no evidence of an acute fracture but noted hematoma and swelling laterally. I reviewed the radiology report which confirms that there is no evidence of fracture. On my independent interpretation of the right wrist x-rays in 3 views, there is no evidence of an acute fracture. I reviewed the radiology report which confirms my independent interpretation. I reviewed the radiology report of the CT of the chest. There are multiple bilateral rib fractures.They are mainly posterior #10 and 11 on the right and 4 through 8 on the left without evidence of pneumothorax. Given her multiple rib fractures, although her pulse ox is 96% on room air, given her age I feel she meets geriatric trauma criteria. I will add CBC, CMP, EKG, and EtOH level. I do feel that the patient will require transfer for at least observation. Patient was discussed with the [facility] Trauma transfer line. I discussed patient with Dr. Gray and she accepts her in transfer. I did obtain an EKG prior to transfer and interpreted it myself independently which demonstrates normal sinus rhythm at 96 bpm without ectopy or acute ST changes. No STEMI. She does have slightly prolonged QT interval at 492 ms. Disposition is transferred in stable condition. Hospital Course: 78 year old female with below past medical history hospitalized for fall, multiple rib fractures, compression fracture T11, treated non-operatively, admitted to TCU with debility, here for rehabilitation, strengthening, prior to discharge home with . Discharge home with 05/25/2024, [facility] PT/OT/ST, new O2. Oxygen: Patient requires 1LPM of oxygen via nasal cannula d/t chronic respiratory failure 2/2 multiple rib fractures; requires a concentrator and portable O2 tanks to allow patient to be mobile in the home and the community; O2 will improve the patient's condition in the home setting. Do you have a hospital follow up appointment with your PCP? Appointment on 05/31/24 with PCP. Yes. Remind patient of appointment date, time, and location. If not within 14 calendar days of discharge - please reschedule accordingly. MEDICATIONS: Many patients have questions or concerns about their medications once they are home. Were you prescribed any new medications? If yes, what are those medications? Methocarbamol 500 mg 1 pill TID prn Tylenol 500 mg taking 2 pills every 8 hours prn Gabapentin 100 mg daily Vitamin D3 25 mcg, taking 2 pills daily Iron daily Were you told to hold any medications? No Were any of your medications discontinued? If yes, what are those medications? Sennosides-docusate sodium Oxycodone 5 mg Meclizine 25 mg Do you have any questions about getting or taking your medications? No Your discharge instructions/After visit Summary (AVS) are important in guiding you through the recovery process. Is there anything I might help you understand? No Do you have all the necessary equipment and supplies at home? Yes Medical records from recent hospitalization: Placed for provider to review [facility] NotePatient Outreach (FAMPWS) BRIANNE COCHRAN ([id number]) 1945 F Date Time Provider Department 05/24/24 VERA POMPAPWS During your visit today, we recorded the following information about you: Nettie Brandt MA 05/28/2024 9:55 AM Signed TRANSITION CARE MANAGEMENT (TCM) INITIAL CONTACT [employer] Outreach Provider Action/FYI: Office received discharge summary from [facility] on 05/22/24 but states in note she will be discharged home 05/25/24. Will need to call next week to do TCM. No appt scheduled with PCP at this time. Pt discharged home with [facility] PT[facility]OT/ST. Has appt to follow up with Dr. Terrance Benedict on 06/18/24 at 10:00 AM with xrays prior. New O2 Initial contact with patient post discharge, spoke to patient. Patient identified by name and . TRANSITION CARE MANAGEMENT INITIAL OUTREACH DOCUMENTATION: No data to display SUMMARY: -Pt discharged from [facility] on 05/22/24. -Admitted for: 1) Debility 2) multiple rib fractures 3) Compression fracture of T11 vertebra 4) osteoporosis 5) HDL 6) Depression 7) Hypothyroidism 8) GERD 9) BPPV 10) Migraines Below copied from [employer]: Chief Complaint: Fall Narrative Narrative: 78-year-old female past medical history of frequent falls, experienced a fall today when she was going to go to the stove in the kitchen. At times, she often gets tripped up on her own feet and falls. She has a baseline general weakness according to her . Although he was not there at the time, he was only a few minutes away. They came home and put her in the car. She states that after she fell, she banged her right wrist on the floor trying to prevent her fall and brace it. She sustained a skin tear to her left proximal forearm as well. She denies hitting her head or loss of consciousness, states she does not take a blood thinner. She complains of left-sided posterior rib pain. No difficulty breathing. No other injuries. She is unsure of her last tetanus immunization. MDM Narrative Medical decision making narrative: I reviewed the patient's prior records and her last Tdap was in 2019, within 6 years and current. Her wound will be cleansed and dressed. Differential diagnosis includes but not limited to right wrist fracture versus contusion and left forearm contusion versus fracture of the radius and/or ulna. Regarding her left chest tenderness, concern would be for rib contusion versus fracture. I do not feel she requires CT imaging of the brain or of the neck. She is at her baseline according to her . She was given an oxycodone tablet for analgesia which she had been previously prescribed. On my independent interpretation of the left forearm x-rays, there is no evidence of an acute fracture but noted hematoma and swelling laterally. I reviewed the radiology report which confirms that there is no evidence of fracture. On my independent interpretation of the right wrist x-rays in 3 views, there is no evidence of an acute fracture. I reviewed the radiology report which confirms my independent interpretation. I reviewed the radiology report of the CT of the chest. There are multiple bilateral rib fractures. They are mainly posterior #10 and 11 on the right and 4 through 8 on the left without evidence of pneumothorax. Given her multiple rib fractures, although her pulse ox is 96% on room air, given her age I feel she meets geriatric trauma criteria. I will add CBC, CMP, EKG, and EtOH level. I do feel that the patient will require transfer for at least observation. Patient was discussed with the [facility] Trauma transfer line. I discussed patient with Dr. Gray and she accepts her in transfer. I did obtain an EKG prior to transfer and interpreted it myself independently which demonstrates normal sinus rhythm at 96 bpm without ectopy or acute ST changes. No STEMI. She does have slightly prolonged QT interval at 492 ms. Disposition is transferred in stable condition. Hospital Course: 78 year old female with below past medical history hospitalized for fall, multiple rib fractures, compression fracture T11, treated non-operatively, admitted to TCU with debility, here for rehabilitation, strengthening, prior to discharge home with . Discharge home with 05/25/2024, [facility] PT/OT/ST, new O2. Oxygen: Patient requires 1LPM of oxygen via nasal cannula d/t chronic respiratory failure 2/2 multiple rib fractures; requires a concentrator and portable O2 tanks to allow patient to be mobile in the home and the community; O2 will improve the patient's condition in the home setting. Do you have a hospital follow up appointment with your PCP? Appointment on 05/31/24 with PCP. Yes. Remind patient of appointment date, time, and location. If not within 14 calendar days of discharge - please reschedule accordingly. MEDICATIO (more content not included)...[facility]03-11-2025 Discharge summary Author Odilon Rodríguez [facility] Note Date/Time May 22, 2024 8:0 7pm [facility] Medical Records Department [address] [place] [address] Discharge Summary 05/22/241958 MR#: [id number] Acct: [id number] Name: BRIANNE COCHRAN Rep #:[id number] : 1945 78 From: Odilon Rodríguez MD PCP: Dr. Vera Pompa MD Status:AD M IN [facility] Date of Admission: 05/09/24 Primary Care Physician: Dr. Vera Pompa MD Consultations 05/22/24 19:14 Consult: Onc/Wound/contact center engineer Routine Comment: Reason For Visit: RIB FRACTURES Diagnosis Discharge Diagnosis (1) Debility: Status: Acute Code(s): R53.81 - Other malaise (2) Multiple rib fractures: Status: Inactive Code(s): S22.49XA - Multiple fractures of ribs, unspecified side, initial encounter for closed fracture (3) Compression fracture of T11 vertebra: Status: Inactive Code(s): S22.080A - Wedge compression fracture of T11-T12 vertebra, initial encounter forclosed fracture (4) Osteoporosis: Status: Acute Code(s): M81.0 - Age-related osteoporosis without current pathological fracture (5) HLD (hyperlipidemia): Status: Acute Code(s): E78.5 - Hyperlipidemia, unspecified (6) Depression: Status: Acute Code(s): F32.A - Depression, unspecified (7) Hypothyroid: Status: Acute Code(s): E03.9 - Hypothyroidism, unspecified Qualifiers: Hypothyroidism type: unspecified Qualified Code(s): E03.9 - Hypothyroidism, unspecified (8) GERD (gastroesophageal reflux disease): Status: Acute Code(s): K21.9 - Gastro-esophageal reflux disease without esophagitis (9) BPPV (benign paroxysmal positional vertigo): Status: Acute Code(s): H81.10 - Benign paroxysmal vertigo, unspecified ear (10) Migraines: Status: Acute Code(s): G43.909 - Migraine, unspecified, not intractable, without status migrainosus Plan 78 year old female with below past medical history hospitalized for fall, multiple rib fractures, compression fracture T11, treated non-operatively, admitted to TCU with debility, here for rehabilitation, strengthening, prior to discharge home with . * Debility - PT/OT. * Dysphagia - ST. * Pain - Tylenol 1000mg q8, Oxycodone 5mg q4 prn pain (1-10), Lidoderm 1 patch td daily. * Bowel - Miralax 17gm daily, senna/colace 2 tablets bid, Magnesium citrate 300mL po x 1 dose, KUB. * Adult immunization - Administer pneumonia vaccine, covid vaccine, flu vaccine as appropriate. * DVT prophylaxis - Lovenox 40mg sc daily. * Osteoporosis - Alendronate 70mg qweek, Calcium D 1 tablet daily, Vitamin D3 50mcg daily. 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 * Neuropathic pain - Gabapentin 100mg tid thru 05/23/2024. * Hypothyroidism - Levothyroxine 100mcg daily. * BPPV - Meclizine 25mg tid prn. * Muscle spasm - Robaxin 500mg tid prn. * Nutrition - MVI 1 tablet daily. * GERD - Pantoprazole 20mg daily. * Rash - Triamcinolone cream topical bid. Medications at Discharge Home Medications alendronate 70 mg tablet 70 mg PO UD osteoporosis 09/07/22 atorvastatin 20 mg tablet 20 mg PO QHS HLD 09/07/22 fluoxetine 40 mg capsule 40 mg PO DAILY depression 09/07/22 omeprazole 20 mg capsule,delayed release 20 mg PO DAILY GERD 09/07/22 calcium carbonate 500 mg (2.5 x 200 mg calcium (500 mg)) PO TIDCM supplement #30tabs 09/10/22 levothyroxine 100 mcg tablet 100 mcg PO DAILY THYROID 05/05/24 acetaminophen 500 mg tablet 1,000 mg (2 x 500 mg) PO Q8 #0 tabs 05/22/24 cholecalciferol (vitamin D3) 25 mcg (1,000 unit) tablet 50 mcg (2 x 25 mcg (1,000 unit)) PO DAILY #0 tabs 05/22/24 gabapentin 100 mg capsule 100 mg PO Q8 30 days #90 caps 05/22/24 methocarbamol 500 mg tablet 500 mg PO TID PRN PRN muscle spasm 30 days #90 tabs 05/22/24 multivitamin-iron 9 mg-folic acid 400 mcg-calcium and minerals tablet (Therapeutic-M) 1 tab PO DAILYCM #0 tabs 05/22/24 Hospital Course Operations None Procedures None Summary of Care Provided Minutes Spent on Discharge: 35 Hospital Course: 78 year old female with below past medical history hospitalized for fall, multiple rib fractures, compression fracture T11, treated non-operatively, admitted to TCU with debility, here for rehabilitation, strengthening, prior to discharge home with . Discharge home with 05/25/2024, [facility] PT/OT/ST, new O2. Oxygen: Patient requires 1LPM of oxygen via nasal cannula d/t chronic respiratory failure 2/2 multiple rib fractures; requires a concentrator and portable O2 tanks to allow patient to be mobile in the home and the community; O2 will improve the patient's condition in the home setting. Physical Exam Const alert General Appearance: cooperative HEENT normocephalic Eyes PERRL and EOMs intact bilaterally Neck supple, no JVD and no carotid bruits Resp normal respiratory effort, normal air movement and clear to auscultation bilaterally Cardio regular rate and regular rhythm GI normal to inspection, nondistended, normoactive bowel sounds, non-tender and non-distended Extremity normal capillary refill General Extremity: Negative for edema Skin no rashes or lesions noted General Skin Exam: no breakdown Psych affect normal Appearance: appropriate Weight / BMI Weight Weight: 59.137 kg Body Mass Index (BMI) 25.4 ABG / Lab / Microbiology Data 05/17/24 05:14 05/17/24 05:14 D/C Instructions Discharge Diet: No restrictions Discharge Activity: Return to Normal Activity, May Shower and Use Walker Weight Bearing Status: Weight bearing as tolerated Call your doctor if you observe: Fever of 101 or Higher, Inability to urinate, Inability to have a bowel movement, Shortness of breath, Dizziness, Fainting spells, Swelling in the ankles, Chest pain and Uncontrolled pain DC O2, CPAP, BIPAP Needs PSN CPAP & BiPAP: BiPAP & CPAP Settings per PSN Fraction of Inspired Oxygen ( 99 05/15/24 11:50 FIO2) Home O2 Discharge instructions: Yes Type of respiratory needs?: Oxygen Oxygen frequency: Continuous Continuous oxygen liters per minute: 1 DC home with Oxygen: Yes Home O2 MD Review: I have reviewed the oxygen testing, and the patient qualifies for home oxygen equipment and portability. The patient is mobile in the home and the community. Please Follow Up With: TERRANCE BENEDICT MD When: As scheduled. Meaningful Use Info Meaningful Use Meaningful Use Diagnoses (Choose all that apply): None applicable Ischemic Stroke Statin Dosing Therapy Reference: STATIN DOSE THERAPY REFERENCE: * Patients > 75 years receive moderate or high dose statin therapy. * Patients 75 years or YOUNGER should receive HIGH intensity statin dose unless contraindicated. You will be required to document reason for non-treatment if statin daily dose does not meet guidelines. HIGH DOSE STATIN THERAPY DAILY Atorvastatin > than or = to 40 mg Rosuvastatin > than or = to 20 mg Amlodipine + Atorvastatin > than or = to 2.5/40 mg Ezetimibe + Simvastatin 10/80 mg Simvastatin 80mg Discharge Plan Admission Admit Date/Time: 05/09/24 21:36 Primary Reason for Your Visit: Debility. Attending Provider: Odilon Rodríguez Chi Primary Care Provider: Vera Pompa Instructions Additional Instructions / Restrictions: Discharge home with 05/25/2024, [facility] PT/OT/ST, new O2. Oxygen: Patient requires 1LPM of oxygen via nasal cannula d/t chronic respiratory failure 2/2 multiple rib fractures; requires a concentrator and portable O2 tanks to allow patient to be mobile in the home and the community; O2 will improve the patient's condition in the home setting. Discharge Orders/Prescriptions Prescriptions: New methocarbamol 500 mg Tablet 500 mg PO TID PRN PRN (Reason: muscle spasm) 30 Days Qty: 90 0RF acetaminophen 500 mg Tablet 1,000 mg PO Q8 Qty: 0 0RF gabapentin 100 mg Capsule 100 mg PO Q8 30 Days Qty: 90 0RF cholecalciferol (vitamin D3) 25 mcg (1,000 unit) Tablet 50 mcg PO DAILY Qty: 0 0RF Therapeutic-M 9 mg iron-400 mcg Tablet 1 tab PO DAILYCM Qty: 0 0RF Continued fluoxetine 40 mg capsule 40 mg PO DAILY atorvastatin 20 mg tablet 20 mg PO QHS alendronate 70 mg tablet 70 mg PO UD Rx Instructions: weekly. omeprazole 20 mg capsule,delayed release(DR/EC) 20 mg PO DAILY calcium carbonate 200 mg calcium (500 mg) Tablet,Chewable 500 mg PO TIDCM Qty: 30 0RF levothyroxine 100 mcg tablet 100 mcg PO DAILY Patient Comments: [NO ORIGINAL SIG] Discontinued sennosides-docusate sodium [Stool Softener-Stimulant Laxat] 8.6-50 mg Tablet 2 tab PO BID 30 Days Qty: 120 0RF oxycodone 5 mg Tablet 5 mg PO Q6H PRN PRN (Reason: Pain Score 1-10) 7 Days Qty: 28 0RF meclizine 25 mg tablet,chewable 25 mg PO TID PRN PRN (Reason: dizziness) Referrals / Follow Up: Terrance Benedict [Other] - 06/18/24 9:45 am (Xrays at [address] Benedict at 1000) Vera Pompa MD [Primary Care Provider] - (pt will make appt ) Disposition Disposition (needs filled in before D/C Order can be placed): Home Health Service 05/22/242006 <Electronically signed by Odilon Rodríguez MD> Cosigner Signature (if applicable): CC: Dr. Vera Pompa MD; Dr. Odilon Rodríguez MD~ Signed [facility] Work Phone: [phone] 865-141903-11-2025 Discharge summary [facility] Medical Records Department [address] [place] [address] Discharge Summary 05/22/241958 MR#: [id number] Acct: [id number] Name: BRIANNE COCHRAN Rep #:[id number] : 1945 78 From: Odilon Rodríguez MD PCP: Dr. Vera Pompa MD Status:AD M IN Location: [place] [address] Providers Date of Admission: 05/09/24 Primary Care Physician: Dr. Vera Pompa MD Consultations 05/22/24 19:14 Consult: Onc/Wound/contact center engineer Routine Comment: Reason For Visit: RIB FRACTURES Diagnosis Discharge Diagnosis (1) Debility: Status: Acute Code(s): R53.81 - Other malaise (2) Multiple rib fractures: Status: Inactive Code(s): S22.49XA - Multiple fractures of ribs, unspecified side, initial encounter for closed fracture (3) Compression fracture of T11 vertebra: Status: Inactive Code(s): S22.080A - Wedge compression fracture of T11-T12 vertebra, initial encounter forclosed fracture (4) Osteoporosis: Status: Acute Code(s): M81.0 - Age-related osteoporosis without current pathological fracture (5) HLD (hyperlipidemia): Status: Acute Code(s): E78.5 - Hyperlipidemia, unspecified (6) Depression: Status: Acute Code(s): F32.A - Depression, unspecified (7) Hypothyroid: Status: Acute Code(s): E03.9 - Hypothyroidism, unspecified Qualifiers: Hypothyroidism type: unspecified Qualified Code(s): E03.9 - Hypothyroidism, unspecified (8) GERD (gastroesophageal reflux disease): Status: Acute Code(s): K21.9 - Gastro-esophageal reflux disease without esophagitis (9) BPPV (benign paroxysmal positional vertigo): Status: Acute Code(s): H81.10 - Benign paroxysmal vertigo, unspecified ear (10) Migraines: Status: Acute Code(s): G43.909 - Migraine, unspecified, not intractable, without status migrainosus Plan 78 year old female with below past medical history hospitalized for fall, multiple rib fractures, compression fracture T11, treated non-operatively, admitted to TCU with debility, here for rehabilitation, strengthening, prior to discharge home with . * Debility - PT/OT. * Dysphagia - ST. * Pain - Tylenol 1000mg q8, Oxycodone 5mg q4 prn pain (1-10), Lidoderm 1 patch td daily. * Bowel - Miralax 17gm daily, senna/colace 2 tablets bid, Magnesium citrate 300mL po x 1 dose, KUB. * Adult immunization - Administer pneumonia vaccine, covid vaccine, flu vaccine as appropriate. * DVT prophylaxis - Lovenox 40mg sc daily. * Osteoporosis - Alendronate 70mg qweek, Calcium D 1 tablet daily, Vitamin D3 50mcg daily. 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 * Neuropathic pain - Gabapentin 100mg tid thru 05/23/2024. * Hypothyroidism - Levothyroxine 100mcg daily. * BPPV - Meclizine 25mg tid prn. * Muscle spasm - Robaxin 500mg tid prn. * Nutrition - MVI 1 tablet daily. * GERD - Pantoprazole 20mg daily. * Rash - Triamcinolone cream topical bid. Medications at Discharge Home Medications alendronate 70 mg tablet 70 mg PO UD osteoporosis 09/07/22 atorvastatin 20 mg tablet 20 mg PO QHS HLD 09/07/22 fluoxetine 40 mg capsule 40 mg PO DAILY depression 09/07/22 omeprazole 20 mg capsule,delayed release 20 mg PO DAILY GERD 09/07/22 calcium carbonate 500 mg (2.5 x 200 mg calcium (500 mg)) PO TIDCM supplement #30tabs 09/10/22 levothyroxine 100 mcg tablet 100 mcg PO DAILY THYROID 05/05/24 acetaminophen 500 mg tablet 1,000 mg (2 x 500 mg) PO Q8 #0 tabs 05/22/24 cholecalciferol (vitamin D3) 25 mcg (1,000 unit) tablet 50 mcg (2 x 25 mcg (1,000 unit)) PO DAILY #0 tabs 05/22/24 gabapentin 100 mg capsule 100 mg PO Q8 30 days #90 caps 05/22/24 methocarbamol 500 mg tablet 500 mg PO TID PRN PRN muscle spasm 30 days #90 tabs 05/22/24 multivitamin-iron 9 mg-folic acid 400 mcg-calcium and minerals tablet (Therapeutic-M) 1 tab PO DAILYCM #0 tabs 05/22/24 Hospital Course Operations None Procedures None Summary of Care Provided Minutes Spent on Discharge: 35 Hospital Course: 78 year old female with below past medical history hospitalized for fall, multiple rib fractures, compression fracture T11, treated non-operatively, admitted to TCU with debility, here for rehabilitation, strengthening, prior to discharge home with . Discharge home with 05/25/2024, [facility] PT/OT/ST, new O2. Oxygen: Patient requires 1LPM of oxygen via nasal cannula d/t chronic respiratory failure 2/2 multiple rib fractures; requires a concentrator and portable O2 tanks to allow patient to be mobile in the home and the community; O2 will improve the patient's condition in the home setting. Physical Exam Const alert General Appearance: cooperative HEENT normocephalic Eyes PERRL and EOMs intact bilaterally Neck supple, no JVD and no carotid bruits Resp normal respiratory effort, normal air movement and clear to auscultation bilaterally Cardio regular rate and regular rhythm GI normal to inspection, nondistended, normoactive bowel sounds, non-tender and non-distended Extremity normal capillary refill General Extremity: Negative for edema Skin no rashes or lesions noted General Skin Exam: no breakdown Psych affect normal Appearance: appropriate Weight / BMI Weight Weight: 59.137 kg Body Mass Index (BMI) 25.4 ABG / Lab / Microbiology Data 05/17/24 05:14 05/17/24 05:14 D/C Instructions Discharge Diet: No restrictions Discharge Activity: Return to Normal Activity, May Shower and Use Walker Weight Bearing Status: Weight bearing as tolerated Call your doctor if you observe: Fever of 101 or Higher, Inability to urinate, Inability to have a bowel movement, Shortness of breath, Dizziness, Fainting spells, Swelling in the ankles, Chest pain and Uncontrolled pain DC O2, CPAP, BIPAP Needs PSN CPAP & BiPAP: BiPAP & CPAP Settings per PSN Fraction of Inspired Oxygen ( 99 05/15/24 11:50 FIO2) Home O2 Discharge instructions: Yes Type of respiratory needs?: Oxygen Oxygen frequency: ContinuousContinuous oxygen liters per minute: 1 DC home with Oxygen: Yes Home O2 MD Review: I have reviewed the oxygen testing, and the patient qualifies for home oxygen equipment and portability. The patient is mobile in the home and the community. Please Follow Up With: TERRANCE BENEDICT MD When: As scheduled. Meaningful Use Info Meaningful Use Meaningful Use Diagnoses (Choose all that apply): None applicable Ischemic Stroke Statin Dosing Therapy Reference: STATIN DOSE THERAPY REFERENCE: * Patients > 75 years receive moderate or high dose statin therapy. * Patients 75 years or YOUNGER should receive HIGH intensity statin dose unless contraindicated. You will be required to document reason for non-treatment if statin daily dose does not meet guidelines. HIGH DOSE STATIN THERAPY DAILY Atorvastatin > than or = to 40 mg Rosuvastatin > than or = to 20 mg Amlodipine + Atorvastatin > than or = to 2.5/40 mg Ezetimibe + Simvastatin 10/80 mg Simvastatin 80mg Discharge Plan Admission Admit Date/Time: 05/09/24 21:36 Primary Reason for Your Visit: Debility. Attending Provider: Odilon Rodríguez Chi Primary Care Provider: Vera Pompa Instructions Additional Instructions / Restrictions: Discharge home with 05/25/2024, [facility] PT/OT/ST, new O2. Oxygen: Patient requires 1LPM of oxygen via nasal cannula d/t chronic respiratory failure 2/2 multiple rib fractures; requires a concentrator and portable O2 tanks to allow patient to be mobile in the home and the community; O2 will improve the patient's condition in the home setting. Discharge Orders/Prescriptions Prescriptions: New methocarbamol 500 mg Tablet 500 mg PO TID PRN PRN (Reason: muscle spasm) 30 Days Qty: 90 0RF acetaminophen 500 mg Tablet 1,000 mg PO Q8 Qty: 0 0RF gabapentin 100 mg Capsule 100 mg PO Q8 30 Days Qty: 90 0RF cholecalciferol (vitamin D3) 25 mcg (1,000 unit) Tablet 50 mcg PO DAILY Qty: 0 0RF Therapeutic-M 9 mg iron-400 mcg Tablet 1 tab PO DAILYCM Qty: 0 0RF Continued fluoxetine 40 mg capsule 40 mg PO DAILY atorvastatin 20 mg tablet 20 mg PO QHS alendronate 70 mg tablet 70 mg PO UD Rx Instructions: weekly. omeprazole 20 mg capsule,delayed release(DR/EC) 20 mg PO DAILY calcium carbonate 200 mg calcium (500 mg) Tablet,Chewable 500 mg PO TIDCM Qty: 30 0RF levothyroxine 100 mcg tablet 100 mcg PO DAILY Patient Comments: [NO ORIGINAL SIG] Discontinued sennosides-docusate sodium [Stool Softener-Stimulant Laxat] 8.6-50 mg Tablet 2 tab PO BID 30 Days Qty: 120 0RF oxycodone 5 mg Tablet 5 mg PO Q6H PRN PRN (Reason: Pain Score 1-10) 7 Days Qty: 28 0RF meclizine 25 mg tablet,chewable 25 mg PO TID PRN PRN (Reason: dizziness) Referrals / Follow Up: Terrance Benedict [Other] - 06/18/24 9:45 am (Xrays at [address] Benedict at 1000) Vera Pompa MD [Primary Care Provider] - (pt will make appt ) Disposition Disposition (needs filled in before D/C Order can be placed): Home Health Service 05/22/242006 Cosigner Signature (if applicable): CC: Dr. Vera Pompa MD; Dr. Odilon Rodríguez MD~ Signed [facility]03-11-2025 [facility] Medical Records Department [address] [place], [id number] Discharge Summary 05/22/241958 MR#: [id number] Acct: [id number] Name: BRIANNE COCHRAN Rep #: [id number] : 1945 78 From: Odilon Rodríguez MD PCP: Dr. Vera Pompa MD Status:ADM IN Location: [place] [address] Providers Date of Admission: 05/09/24 Primary Care Physician: Dr. Vera Pompa MD Consultations 05/22/24 19:14 Consult: Onc/Wound/contact center engineer Routine Comment: Reason For Visit: RIB FRACTURES Diagnosis Discharge Diagnosis (1) Debility: Status: Acute Code(s): R53.81 - Other malaise (2) Multiple rib fractures: Status: Inactive Code(s): S22.49XA - Multiple fractures of ribs, unspecified side, initial encounter for closed fracture (3) Compression fracture of T11 vertebra: Status: Inactive Code(s): S22.080A - Wedge compression fracture of T11-T12 vertebra, initial encounter for closed fracture (4) Osteoporosis: Status: Acute Code(s): M81.0 - Age-related osteoporosis without current pathological fracture (5) HLD (hyperlipidemia): Status: Acute Code(s): E78.5 - Hyperlipidemia, unspecified (6) Depression: Status: Acute Code(s): F32.A - Depression, unspecified (7) Hypothyroid: Status: Acute Code(s): E03.9 - Hypothyroidism, unspecified Qualifiers: Hypothyroidism type: unspecified Qualified Code(s): E03.9 - Hypothyroidism, unspecified (8) GERD (gastroesophageal reflux disease): Status: Acute Code(s): K21.9 - Gastro-esophageal reflux disease without esophagitis (9) BPPV (benign paroxysmal positional vertigo): Status: Acute Code(s): H81.10 - Benign paroxysmal vertigo, unspecified ear (10) Migraines: Status: Acute Code(s): G43.909 - Migraine, unspecified, not intractable, without status migrainosus Plan 78 year old female with below past medical history hospitalized for fall, multiple rib fractures, compression fracture T11, treated non-operatively, admitted to TCU with debility, here for rehabilitation, strengthening, prior to discharge home with . * Debility - PT/OT. * Dysphagia - ST. * Pain - Tylenol 1000mg q8, Oxycodone 5mg q4 prn pain (1-10), Lidoderm 1 patch td daily. * Bowel - Miralax 17gm daily, senna/colace 2 tablets bid, Magnesium citrate 300mL po x 1 dose, KUB. * Adult immunization - Administer pneumonia vaccine, covid vaccine, flu vaccine as appropriate. * DVT prophylaxis - Lovenox 40mg sc daily. * Osteoporosis - Alendronate 70mg qweek, Calcium D 1 tablet daily, Vitamin D3 50mcg daily. 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 * Neuropathic pain - Gabapentin 100mg tid thru 05/23/2024. * Hypothyroidism - Levothyroxine 100mcg daily. * BPPV - Meclizine 25mg tid prn. * Muscle spasm - Robaxin 500mg tid prn. * Nutrition - MVI 1 tablet daily. * GERD - Pantoprazole 20mg daily. * Rash - Triamcinolone cream topical bid. Medications at Discharge Home Medications alendronate 70 mg tablet 70 mg PO UD osteoporosis 09/07/22 atorvastatin 20 mg tablet 20 mg PO QHS HLD 09/07/22 fluoxetine 40 mg capsule 40 mg PO DAILY depression 09/07/22 omeprazole 20 mg capsule,delayed release 20 mg PO DAILY GERD 09/07/22 calcium carbonate 500 mg (2.5 x 200 mg calcium (500 mg)) PO TIDCM supplement #30 tabs 09/10/22 levothyroxine 100 mcg tablet 100 mcg PO DAILY THYROID 05/05/24 acetaminophen 500 mg tablet 1,000 mg (2 x 500 mg) PO Q8 #0 tabs 05/22/24 cholecalciferol (vitamin D3) 25 mcg (1,000 unit) tablet 50 mcg (2 x 25 mcg (1,000 unit)) PO DAILY #0 tabs 05/22/24 gabapentin 100 mg capsule 100 mg PO Q8 30 days #90 caps 05/22/24 methocarbamol 500 mg tablet 500 mg PO TID PRN PRN muscle spasm 30 days #90 tabs 05/22/24 multivitamin-iron 9 mg-folic acid 400 mcg-calcium and minerals tablet (Therapeutic-M) 1 tab PO DAILYCM #0 tabs 05/22/24 Hospital Course Operations None Procedures None Summary of Care Provided Minutes Spent on Discharge: 35 Hospital Course: 78 year old female with below past medical history hospitalized for fall, multiple rib fractures, compression fracture T11, treated non-operatively, admitted to TCU with debility, here for rehabilitation, strengthening, prior to discharge home with . Discharge home with 05/25/2024, [facility] PT/OT/ST, new O2. Oxygen: Patient requires 1LPM of oxygen via nasal cannula d/t chronic respiratory failure 2/2 multiple rib fractures; requires a concentrator and portable O2 tanks to allow patient to be mobile in the home and the community; O2 will improve the patient's condition in the home setting. Physical Exam Const alert General Appearance: cooperative HEENT normocephalic Eyes PERRL and EOMs intact bilaterally Neck supple, no JVD and no carotid bruits Resp normal respiratory effort, normal air movement and clear to auscultation bilaterally Cardio (more content not included)...[facility]02-28-2025 History and physical note Author Odilon Rodríguez [facility] Note Date/Time May 11, 2024 12:48pm [facility] Medical Records Department [address] [place] [address] History & Physical Exam 05/10/24 0744 MR#: [id number] Acct: [id number] Name: BRIANNE COCHRAN Rep #:[id number] : 1945 78 From: Odilon Rodríguez MD PCP: Dr. Vera Pompa MD Status:AD M IN Location: [facility]- [facility] Date of Admission: 05/09/24 Date of Service: 05/10/24 Chief Complaint: Here for rehabilitation. [facility] Narrative BRIANNE COCHRAN, is a 78 Female who presents with followin05/05/2024 Admit to [facility] for ground level fall, trauma. Traumatic injuries: 1. Nondisplaced posterior 10th and 11th right rib fractures. 2. Nondisplaced lateral 4th-8th left rib fractures. 3. Severe compression fracture of T11. Neurosurgery was consulted to help manage her spine fracture. Ultimately all ofher injuries were treated conservatively with non-operative management. She wasgiven a TLSO back brace to wear whenever she was out of bed. She was given as needed pain medication. A repeat chest x-ray was completed on 05/06/2024 and wasstable. She was evaluated by physical therapy who recommended placement at correction facility. 05/09/2024 Admit to TCU with debility, here for rehabilitation, strengthening, prior to discharge home with . [facility] Medical History (Updated 05/10/24 @ 07:[address] Odilon Rodríguez MD) Hypothyroid Non-smoker Sleep apnea Hypertension Migraines Chronic anemia Obesity Anxiety and depression GERD (gastroesophageal reflux disease) HLD (hyperlipidemia) PAF (paroxysmal atrial fibrillation) Fibromyalgia Osteoporosis Paroxysmal atrial fibrillation T12 compression fracture Closed right hip fracture Syncope Home Medications ?Medication ?Instructions ?Recorded ?Last Taken ?Type alendronate 70 mg tablet 70 mg PO UD osteoporosis Unknown History atorvastatin 20 mg tablet 20 mg PO QHS HLD 09/07/22 History fluoxetine 40 mg capsule 40 mg PO DAILY depression 09/10/22 History omeprazole 20 mg capsule,delayed 20 mg PO DAILY GERD 0 09/07/22 05/09/24 History release calcium carbonate 500 mg (2.5 x 200 mg calcium (500 09/10/22 09/10/22 Rx mg)) PO TIDCM supplement #30 tabs oxycodone 5 mg tablet 5 mg PO Q6H PRN PRN Pain Sco re 09/28/22 05/09/24 18:10 Rx 1-10 7 days #28 tabs sennosides 8.6 mg-docusate sodium 2 tab PO BID 30 days #120 tabs 09/28/22 Unknown Rx 50 mg tablet (Stool Softener-Stimulant Laxative) levothyroxine 100 mcg tablet 100 mcg PO DAILY THYROID 05/05/24 05/09/24 History meclizine 25 mg chewable tablet 25 mg PO TID PRN PRN d izziness 05/09/24 Unknown History Allergy/AdvReac Type Severity Reaction Status Date / Time codeine Allergy Unknown Verified 05/05/24 15:08 codeine phosphate (From AdvReac Unknown Verified 05/05/24 15:08 Tylenol-Codeine #3) nabumetone (From Relafen) AdvReac Unknown Verified 05/05/24 15:08 naproxen AdvReac Unknown Verified 05/05/24 15:08 Family History Mother Cancer Father Cancer Surgical History S/P ORIF (open reduction internal fixation) fracture History of section H/O ovarian cystectomy History of total right hip replacement S/P kyphoplasty S/P ORIF (open reduction internal fixation) fracture Social History household members: spouse Smoking Status: Never smoker alcohol intake: never substance use type: does not use ROS Constitutional Constitutional: Reports weakness; Denies chills, fever(s) or weight gain ENT HEENT: Denies headache(s), nasal congestion or nasal discharge Cardiovascular Cardiovascular: Denies chest pain or palpitations Respiratory/Chest Respiratory/Chest: Denies cough, excessive phlegm production or shortness of breath with exertion Gastrointestinal Gastrointestinal: Denies abdominal pain, nausea or vomiting Genitourinary Genitourinary: Denies dysuria Musculoskeletal Musculoskeletal: Denies joint pain or joint swelling Integumentary Integumentary: Denies rash or wounds Neurologic Neurologic: Denies focal weakness, numbness or tingling Psychiatric Psychiatric: Denies anxiety, auditory hallucinations, depression, homicidal ideation or suicidal ideation Vital Signs Vital Signs Vital Signs: 05/09/24 21:55 05/09/24 21:55 Temperature 98.0 F Temperature Source Temporal Pulse Rate 84 84 Pulse Rhythm Regular Pulse Strength Normal (2+) Respiratory Rate 16 16 Respiratory Effort Normal Non-Labored Respiratory Depth Normal Respiratory Pattern Normal Blood Pressure 159/83 H Blood Pressure Mean 108 Pulse Ox 97 Oxygen Delivery Method Nasal Cannula Nasal Cannula Oxygen Flow Rate (L/min) 2 2 Weight Weight: 58.542 kg Body Mass Index (BMI) 25.2 Physical Exam Const alert General Appearance: cooperative HEENT normocephalic Eyes PERRL and EOMs intact bilaterally Neck supple, no JVD and no carotid bruits Resp normal respiratory effort, normal air movement and clear to auscultation bilaterally Cardio regular rate and regular rhythm GI normal to inspection, nondistended, normoactive bowel sounds, non-tender and non-distended Extremity normal capillary refill General Extremity: Negative for edema Skin no rashes or lesions noted General Skin Exam: no breakdown Psych affect normal Appearance: appropriate Results Lab / Micro Data 05/10/24 05:15 05/10/24 05:15 Labs: Laboratory Results - last 24 hr 05/10/24 05:15: WBC 8.1, RBC 3.92 L, Hgb 12.0, Hct 37.2, MCV 94.9, MCH 30.6, MCHC 32.3, RDW Std Deviation 44.9 H, RDW Coeff of Serafin 12.9, Plt Count 304, MPV 10.1, Immature Gran % (Auto) 0.200, Neut % (Auto) 57.1, Lymph % (Auto) 26.9, [place] % (Auto) 8.7, Eos % (Auto) 6.4 H, Baso % (Auto) 0.7, Absolute Neuts (auto) 4.6, Absolute Lymphs (auto) 2.19, Nucleated RBC % 0, Sodium 140, Potassium 4.6, Chloride Direct 104, Carbon Dioxide 23.6, Anion Gap 12, BUN 23 H, Creatinine 0.6, Estim Creat Clear Calc 47.90, Est GFR (MDRD) Non-Af 94, BUN/Creatinine Ratio 41.5 H, Glucose 92, Calcium 9.0 Assessment & Plan Assessment/Plan (1) Debility: (2) Multiple rib fractures: (3) Compression fracture of T11 vertebra: (4) Osteoporosis: (5) HLD (hyperlipidemia): (6) Depression: (7) Hypothyroid: QUALIFIERS: Hypothyroidism type: unspecified Qualified Code(s): E03.9 - Hypothyroidism, unspecified (8) GERD (gastroesophageal reflux disease): (9) BPPV (benign paroxysmal positional vertigo): (10) Migraines: PLAN: Plan 78 year old female with below past medical history hospitalized for fall, multiple rib fractures, compression fracture T11, treated non-operatively, admitted to TCU with debility, here for rehabilitation, strengthening, prior to discharge home with . * Debility - PT/OT. * Dysphagia - ST. * Pain - Tylenol 1000mg q8, Oxycodone 5mg q4 prn pain (1-10), Lidoderm 1 patch td daily. * Bowel - Miralax 17gm daily, senna/colace 2 tablets bid, Magnesium citrate 300mL po x 1 dose, KUB. * Adult immunization - Administer pneumonia vaccine, covid vaccine, flu vaccine as appropriate. * DVT prophylaxis - Lovenox 40mg sc daily. * Osteoporosis - Alendronate 70mg qweek, Calcium D 1 tablet daily, Vitamin D3 50mcg daily. 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 * Neuropathic pain - Gabapentin 100mg tid thru 05/23/2024. * Hypothyroidism - Levothyroxine 100mcg daily. * BPPV - Meclizine 25mg tid prn. * Muscle spasm - Robaxin 500mg tid prn. * Nutrition - MVI 1 tablet daily. * GERD - Pantoprazole 20mg daily. * Rash - Triamcinolone cream topical bid. 05/10/24 0800 <Electronically signed by Odilon Rodríguez MD> Cosigner Signature (if applicable): CC: Dr. Vera Pompa MD; Dr. Odilon Rodríguez MD~ Signed ADDENDUM by Dr. Odilon Rodríguez MD on 05/11/24 at 1348 Addendum Bibasilar pneumonia - hospital acquired, Levaquin 750mg daily x 7 days. 05/11/24 1347<Electronically signed by Odilon Rodríguez MD> Cosigner Signature (if applicable): cc: Dr. Vera Pompa MD; Dr. Odilon Rodríguez MD ~* Signed [facility] Work Phone: [phone]) 603-676702-28-2025 History and physical note [facility] Medical Records Department [address] [place] [address] History & Physical Exam 05/10/24 0744 MR#: [id number] Acct: [id number] Name: BRIANNE COCHRAN Rep #:[id number] : 1945 78 From: Odilon Rodríguez MD PCP: Dr. Vera Pompa MD Status:AD M IN Location: [address] - General General Date of Admission: 05/09/24 Date of Service: 05/10/24 Chief Complaint: Here for rehabilitation. HPI Narrative BRIANNE COCHRAN, is a 78 Female who presents with followin05/05/2024 Admit to [facility] for ground level fall, trauma. Traumatic injuries: 1. Nondisplaced posterior 10th and 11th right rib fractures. 2. Nondisplaced lateral 4th-8th left rib fractures. 3. Severe compression fracture of T11. Neurosurgery was consulted to help manage her spine fracture. Ultimately all ofher injuries were treated conservatively with non-operative management. She wasgiven a TLSO back brace to wear whenever she was out of bed. She was given as needed pain medication. A repeat chest x-ray was completed on 05/06/2024 and wasstable. She was evaluated by physical therapy who recommended placement at correction facility. 05/09/2024 Admit to TCU with debility, here for rehabilitation, strengthening, prior to discharge home with . [facility] Medical History (Updated 05/10/24 @ 07:[address] Odilon Rodríguez MD) Hypothyroid Non-smoker Sleep apnea Hypertension Migraines Chronic anemia Obesity Anxiety and depression GERD (gastroesophageal reflux disease) HLD (hyperlipidemia) PAF (paroxysmal atrial fibrillation) Fibromyalgia Osteoporosis Paroxysmal atrial fibrillation T12 compression fracture Closed right hip fracture Syncope Home Medications ?Medication ?Instructions ?Recorded ?Last Taken ?Type alendronate 70 mg tablet 70 mg PO UD osteoporosis Unknown History atorvastatin 20 mg tablet 20 mg PO QHS HLD 09/07/22 History fluoxetine 40 mg capsule 40 mg PO DAILY depression 09/10/22 History omeprazole 20 mg capsule,delayed 20 mg PO DAILY GERD 0 09/07/22 05/09/24 History release calcium carbonate 500 mg (2.5 x 200 mg calcium (500 09/10/22 09/10/22 Rx mg)) PO TIDCM supplement #30 tabs oxycodone 5 mg tablet 5 mg PO Q6H PRN PRN Pain Sco re 09/28/22 05/09/24 18:10 Rx 1-10 7 days #28 tabs sennosides 8.6 mg-docusate sodium 2 tab PO BID 30 days #120 tabs 09/28/22 Unknown Rx 50 mg tablet (Stool Softener-Stimulant Laxative) levothyroxine 100 mcg tablet 100 mcg PO DAILY THYROID 05/05/24 05/09/24 History meclizine 25 mg chewable tablet 25 mg PO TID PRN PRN d izziness 05/09/24 Unknown History Allergy/AdvReac Type Severity Reaction Status Date / Time codeine Allergy Unknown Verified 05/05/24 15:08 codeine phosphate (From AdvReac Unknown Verified 05/05/24 15:08 Tylenol-Codeine #3) nabumetone (From Relafen) AdvReac Unknown Verified 05/05/24 15:08 naproxen AdvReac Unknown Verified 05/05/24 15:08 Family History Mother Cancer Father Cancer Surgical History S/P ORIF (open reduction internal fixation) fracture History of section H/O ovarian cystectomy History of total right hip replacement S/P kyphoplasty S/P ORIF (open reduction internal fixation) fracture Social History household members: spouse Smoking Status: Never smoker alcohol intake: never substance use type: does not use ROS Constitutional Constitutional: Reports weakness; Denies chills, fever(s) or weight gain ENT HEENT: Denies headache(s), nasal congestion or nasal discharge Cardiovascular Cardiovascular: Denies chest pain or palpitations Respiratory/Chest Respiratory/Chest: Denies cough, excessive phlegm production or shortness of breath with exertion Gastrointestinal Gastrointestinal: Denies abdominal pain, nausea or vomiting Genitourinary Genitourinary: Denies dysuria Musculoskeletal Musculoskeletal: Denies joint pain or joint swelling Integumentary Integumentary: Denies rash or wounds Neurologic Neurologic: Denies focal weakness, numbness or tingling Psychiatric Psychiatric: Denies anxiety, auditory hallucinations, depression, homicidal ideation or suicidal ideation Vital Signs Vital Signs Vital Signs: 05/09/24 21:55 05/09/24 21:55 Temperature 98.0 F Temperature Source Temporal Pulse Rate 84 84 Pulse Rhythm Regular Pulse Strength Normal (2+) Respiratory Rate 16 16 Respiratory Effort Normal Non-Labored Respiratory Depth Normal Respiratory Pattern Normal Blood Pressure 159/83 H Blood Pressure Mean 108 Pulse Ox 97 Oxygen Delivery Method Nasal Cannula Nasal Cannula Oxygen Flow Rate (L/min) 2 2 Weight Weight: 58.542 kg Body Mass Index (BMI) 25.2 Physical Exam Const alert General Appearance: cooperative HEENT normocephalic Eyes PERRL and EOMs intact bilaterally Neck supple, no JVD and no carotid bruits Resp normal respiratory effort, normal air movement and clear to auscultation bilaterally Cardio regular rate and regular rhythm GI normal to inspection, nondistended, normoactive bowel sounds, non-tender and non-distended Extremity normal capillary refill General Extremity: Negative for edema Skin no rashes or lesions noted General Skin Exam: no breakdown Psych affect normal Appearance: appropriate Results Lab / Micro Data 05/10/24 05:15 05/10/24 05:15 Labs: Laboratory Results - last 24 hr 05/10/24 05:15: WBC 8.1, RBC 3.92 L, Hgb 12.0, Hct 37.2, MCV 94.9, MCH 30.6, MCHC 32.3, RDW Std Deviation 44.9 H, RDW Coeff of Serafin 12.9, Plt Count 304, MPV 10.1, Immature Gran % (Auto) 0.200, Neut % (Auto) 57.1, Lymph % (Auto) 26.9, [place] % (Auto) 8.7, Eos % (Auto) 6.4 H, Baso % (Auto) 0.7, AbsoluteNeuts (auto) 4.6, Absolute Lymphs (auto) 2.19, Nucleated RBC % 0, Sodium 140, Potassium 4.6, Chloride Direct 104, Carbon Dioxide 23.6, Anion Gap 12, BUN 23 H, Creatinine 0.6, Estim Creat Clear Calc 47.90, Est GFR (MDRD) Non-Af 94, BUN/Creatinine Ratio 41.5 H, Glucose 92, Calcium 9.0 Assessment & Plan Assessment/Plan (1) Debility: (2) Multiple rib fractures: (3) Compression fracture of T11 vertebra: (4) Osteoporosis: (5) HLD (hyperlipidemia): (6) Depression: (7) Hypothyroid: QUALIFIERS: Hypothyroidism type: unspecified Qualified Code(s): E03.9 - Hypothyroidism, unspecified (8) GERD (gastroesophageal reflux disease): (9) BPPV (benign paroxysmal positional vertigo): (10) Migraines: PLAN: Plan 78 year old female with below past medical history hospitalized for fall, multiple rib fractures, compression fracture T11, treated non-operatively, admitted to TCU with debility, here for rehabilitation, strengthening, prior to discharge home with . * Debility - PT/OT. * Dysphagia - ST. * Pain - Tylenol 1000mg q8, Oxycodone 5mg q4 prn pain (1-10), Lidoderm 1 patch td daily. * Bowel - Miralax 17gm daily, senna/colace 2 tablets bid, Magnesium citrate 300mL po x 1 dose, KUB. * Adult immunization - Administer pneumonia vaccine, covid vaccine, flu vaccine as appropriate. * DVT prophylaxis - Lovenox 40mg sc daily. * Osteoporosis - Alendronate 70mg qweek, Calcium D 1 tablet daily, Vitamin D3 50mcg daily. 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 * Neuropathic pain - Gabapentin 100mg tid thru 05/23/2024. * Hypothyroidism - Levothyroxine 100mcg daily. * BPPV - Meclizine 25mg tid prn. * Muscle spasm - Robaxin 500mg tid prn. * Nutrition - MVI 1 tablet daily. * GERD - Pantoprazole 20mg daily. * Rash - Triamcinolone cream topical bid. 05/10/24 0800 Cosigner Signature (if applicable): CC: Dr. Vera Pompa MD; Dr. Odilon Rodríguez MD~ Signed ADDENDUM by Dr. Odilon Rodríguez MD on 05/11/24 at 1348 Addendum Bibasilar pneumonia - hospital acquired, Levaquin 750mg daily x 7 days. 05/11/24 1347 Cosigner Signature (if applicable): cc: Dr. Vera Pompa MD; Dr. Odilon Rodríguez MD ~* Signed [facility]02-28-2025 Radiology Diagnostic study note [facility] Imaging Services [address] [place] [address] Chest PA and Lateral MR#: [id number] Acct: [id number] Name: BRIANNE COCHRAN Rep #: [id number] : 1945 F 78 From: Bucky Stephen MD PCP: Dr. Vera Pompa MD Status: AD M IN Study:Chest PA and Lateral Date of Exam: 05/11/24 Exam# [id number] Ordering Dr: Odilon Rodríguez MD PROCEDURE: CHEST PA AND LATERAL REASON FOR EXAM: Bibasilar crackles. TECHNIQUE: PA and lateral chest radiographs were obtained. COMPARISON: Comparison is made with prior study dated November 03, 2023 FINDINGS: Mild cardiomegaly. Bibasilar patchy infiltrates worse on the left side with blunting of the left costophrenic angle. Linear densities in the right mid lung suggestive of atelectasis. Healed right rib fractures. Calcification of the aortic arch. Large hiatal hernia. Almost complete collapse of the L1 vertebrae with prior vertebroplasty. RAD/Chest PA and Lateral IMPRESSION: Patchy bibasilar infiltrates more prominent on the left side with blunting of the left costophrenicangle. Increased markings in the right mid lung. Large hiatal hernia. Reading Location: [id number] CC: Dr. Vera Pompa MD; Dr. Odilon Rodríguez MD ~ Dip Dyer: Signed [facility]02-27-2025 Progress note Author Mildred Salas [facility] Note Date/Time May 10, 2024 4:22pm [facility] Medical Records Department [address] [place] [address] Progress Note - Pharmacy 05/10/24 1509 MR#: [id number] Acct: [id number] Name: BRIANNE COCHRAN Rep #:[id number] : 1945 78 From: Mildred Salas PCP: Dr. Vera oPmpa MD Status:AD M IN Location: TCU TC09-1 Documented by User: Mildred Salas 05/10/24 15:26 TCU RX Drug Regimen Review Subjective/Objective Subjective/Objective Subjective: TCU Admission. 78 YOF presented to ER after a fall, transferred to [facility]. Hospitalized for fall, multiple rib fractures, compression fracture T11, treated non-operatively. Admitted to TCU with debility for strengthening and rehabilitation. Objective: Allergies codeine Allergy (Verified 05/05/24 15:08) Unknown codeine phosphate (From Tylenol-Codeine #3) Adverse Reaction (Verified 05/05/24 15:08) Unknown nabumetone (From Relafen) Adverse Reaction (Verified 05/05/24 15:08) Unknown naproxen Adverse Reaction (Verified 05/05/24 15:08) Unknown Current Medications Generic Name Dose Route Start Last Admin Trade Name Freq PRN Reason Stop Dose Admin Acetaminophen 1,000 mg 05/10/24 14:00 05/10/24 14:22 Acetaminophen 500 Mg Tablet PO 1,000 mg Q8 LUANA Administration Alendronate Sodium 70 mg 05/13/24 06:00 Alendronate Sodium 70 Mg Tablet PO Isbell@0600 LUANA Atorvastatin Calcium 20 mg 05/10/24 22:00 Atorvastatin Calcium 20 Mg Tablet PO QHS LUANA Calcium/Vitamin D 1 tablet 05/10/24 08:00 05/10/24 09:04 Calcium Carb/Vitamin D 1 Tablet Tablet PO 1 tablet DAILYCM LUANA Administration Cholecalciferol 50 mcg 05/10/24 10:00 05/10/24 09:04 Cholecalciferol (Vit D3) 25 Mcg Tablet (1,000 Units) PO 50 mcg DAILY LUANA Administration Enoxaparin Sodium 40 mg 05/11/24 06:00 Enoxaparin 40 Mg/0.4 Ml Syringe SC DAILY@0600 [facility] Fluoxetine HCl 40 mg 05/10/24 10:00 05/10/24 09:04 Fluoxetine Hcl 40 Mg Capsule PO 40 mg DAILY LUANA Administration Gabapentin 100 mg 05/09/24 22:37 05/10/24 14:22 Gabapentin 100 Mg Capsule PO 05/23/24 22:38 100 mg Q8 LUANA Administration Levothyroxine Sodium 100 mcg 05/10/24 06:00 05/10/24 06:09 Levothyroxine 100 Mcg Tablet PO 100 mcg DAILY@0600 LUANA Administration Lidocaine 1 patch 05/10/24 10:00 05/10/24 09:05 Lidocaine 5% Patch TOPICAL 1 patch DAILY [facility] Administration Protocol Meclizine HCl 25 mg 05/09/24 22:20 Meclizine Hcl 25 Mg Tablet PO TID PRN PRN dizziness Methocarbamol 500 mg 05/09/24 22:39 05/10/24 00:37 Methocarbamol 500 Mg Tablet PO 500 mg TID PRN PRN Administration muscle spasm Multivitamins/Minerals 1 tablet 05/10/24 08:00 05/10/24 09:04 Multivitamins,Ther W-Minerals Tablet PO 1 tablet DAILYCM LUANA Administration Oxycodone HCl 5 mg 05/10/24 07:43 Oxycodone 5 Mg Tablet PO Q4H PRN PRN Pain Score 1-10 Pantoprazole Sodium 20 mg 05/10/24 10:00 05/10/24 09:03 Pantoprazole Sodium 20 Mg Tablet PO 20 mg DAILY [facility] Administration Polyethylene Glycol 17 gm 05/10/24 10:00 05/10/24 09:04 Polyethylene Glycol 3350 17 Gm Packet PO 17 gm DAILY [facility] Administration Senna/Docusate Sodium 2 tablet 05/10/24 10:00 05/10/24 09:03 Senna/Docusate Sodium 1 Tablet PO 2 tablet BID LUA[facility] Administration Sodium Chloride 10 - 40 ml 05/09/24 23:03 0.9% Saline Lock 10 Ml Syringe IV UD PRN SALINE FLUSH Triamcinolone Acetonide 1 applic 05/09/24 22:30 05/10/24 09:06 Triamcinolone 0.1% Ointment 15 Gm Tube TOPICAL 1 appful BID [facility] Administration Protocol Tuberculin PPD 0.1 ml 05/17/24 10:00 Tuberculin,Purif.Prot.Deriv. 50 Tu/Ml Vial ID 05/17/24 10:01 X1 ONE Problem List Migraines (Acute) BPPV (benign paroxysmal positional vertigo) (Acute) GERD (gastroesophageal reflux disease) (Acute) Hypothyroid (Acute) Depression (Acute) HLD (hyperlipidemia) (Acute) Osteoporosis (Acute) Debility (Acute) Compression fracture of T11 vertebra (Acute) Multiple rib fractures (Acute) Vital Signs Temp Pulse Resp BP Pulse Ox O2 Del Method O2 Flow Rate 97.6 F L 105 H 16 133/74 H 98 Nasal Cannula 2 05/10/24 09:22 05/10/24 09:22 05/10/24 09:22 05/10/24 09:22 05/10/24 09:22 05/10/24 09:22 05/10/24 11:26 Oxygen Flow Rate (L/min) 2 Oxygen Delivery Method Nasal Cannula Weight: 58.542 kg Body Mass Index (BMI) 25.2 Sodium 140 mmol/L (133-145) 05/10/24 05:15 Potassium 4.6 mmol/L (3.3-5.1) 05/10/24 05:15 Carbon Dioxide 23.6 mmol/L (22.0-29.0) 05/10/24 05:15 Anion Gap 12 (5-15) 05/10/24 05:15 BUN 23 mg/dL (4-19) H 05/10/24 05:15 Creatinine 0.6 mg/dL (0.6-1.0) 05/10/24 05:15 Est GFR (MDRD) Non-Af 94 (>60) 05/10/24 05:15 BUN/Creatinine Ratio 41.5 RATIO (10-20) H 05/10/24 05:15 Glucose 92 mg/dL (70-99) 05/10/24 05:15 Assessment/Plan: 1. Pain: acetaminophen 1000mg PO Q8, oxycodone 5mg PO Q4H PRN pain (1-10) and lidocaine 5% patch topical daily. Please continue to monitor for increased pain,rash and PRN usage. 2. Bowel: Miralax 17gm PO daily, senna/docusate 2T PO BID and magnesium citrate 300mL PO x1 today. Please continue to monitor for constipation and PRN usage. Last documented bowel movement 05/05. 3. DVT prophylaxis: enoxaparin 40mg SC daily. Please continue to monitor for S/Sof bleeding/DVT, hemoglobin (last 12g/dL), platelets (last 304,000) and renal function. 4. Osteoporosis: alendronate 70mg PO weekly, calcium/vitamin D 1T PO daily and cholecalciferol 50mcg PO daily. Please continue to monitor calcium (last 9mg/dL), vitamin D (last 09/09/22), renal function, jaw pain and BMD. Please administer alendronate first thing in the morning with a full glass of water on an empty stomach. 5. Hypothyroidism: levothyroxine 100mcg PO daily. Please continue to monitor TSH(last 09/08/22) and S/S of hypo/hyperthyroidism. 6. BPPV: meclizine 25mg PO TID PRN dizziness. No doses given. Please continue tomonitor for PRN usage and dizziness. 7. Muscle spasm: methocarbamol 500mg PO TID PRN muscle spasm. Resident has had 1dose. Please continue to monitor for PRN usage, muscle spasm and anticholinergicside effects (BEERs). 8. GERD: pantoprazole 20mg PO daily. Please continue to monitor for S/S of GERD and diarrhea (BEERs). 9. Rash: triamcinolone cream topical BID. Please continue to monitor for rash. 10. Nutrition: multivitamin with minerals. Please continue to monitor. 11. Hyperlipidemia: atorvastatin 20mg PO QHS. Please consider ordering a lipid panel as the last panel is from 2016. Thanks. Please continue to monitor for muscle pain and LFTs (last 05/05/24). Assessment/Plan for indications treated with psychotropic medications: 1. Depression: fluoxetine 40mg PO daily. Please see physician note regarding GDR. Please continue to monitor for suicidal ideation (suicidal ideation), falls/fractures (BEERs) and sodium (last 140mmol/L). 2. Neuropathic pain: gabapentin 100mg PO TID thru 05/23/24. Please continue to monitor for neuropathic pain, confusion, renal function and falls/fractures (BEERs). Medical chart and medication regimen reviewed. The following medication irregularities or issues were identified: 1. Atorvastatin 20mg PO QHS. Please consider ordering a lipid panel as the last panel is from 2016. Thanks. Date Date of Note: 05/10/24 Documented by User: Dr. Odilon Rodríguez MD 05/10/24 17:22 TCU RX Drug Regimen Review Provider Comments Provider responsibility Provider Comments to Recommendations by Pharmacy Agree 05/10/24 1526 <Electronically signed by Mildred Salas> Mildred Salas Cosigner Signature (if applicable): 05/10/24 1722 <Electronically signed by Odilon Rodrgíuez MD> CC: ~ Signed [facility] Work Phone: [phone]) 357-958402-27-2025 Progress note [facility] Medical Records Department [address] [place] [id number] Progress Note - Pharmacy 05/10/24 1509 MR#: [id number] Acct: [id number] Name: BRIANNE COCHRAN Rep #:[id number] : 1945 78 From: Mildred Salas PCP: Dr. Vera Pompa MD Status:AD M IN Location: [place] [address] Documented by User: Mildred Salas 05/10/24 15:26 TCU RX Drug Regimen Review Subjective/Objective Subjective/Objective Subjective: TCU Admission. 78 YOF presented to ER after a fall, transferred to [facility]. Hospitalized for fall, multiple rib fractures, compression fracture T11, treated non-operatively. Admitted to TCU with debility for strengthening and rehabilitation. Objective: Allergies codeine Allergy (Verified 05/05/24 15:08) Unknown codeine phosphate (From Tylenol-Codeine #3) Adverse Reaction (Verified 05/05/24 15:08) Unknown nabumetone (From Relafen) Adverse Reaction (Verified 05/05/24 15:08) Unknown naproxen Adverse Reaction (Verified 05/05/24 15:08) Unknown Current Medications Generic Name Dose Route Start Last Admin Trade Name Freq PRN Reason Stop Dose Admin Acetaminophen 1,000 mg 05/10/24 14:00 05/10/24 14:22 Acetaminophen 500 Mg Tablet PO 1,000 mg Q8 [facility] Administration Alendronate Sodium 70 mg 05/13/24 06:00 Alendronate Sodium 70 Mg Tablet PO Isbell@0600 [facility] Atorvastatin Calcium 20 mg 05/10/24 22:00 Atorvastatin Calcium 20 Mg Tablet PO QHS [facility] Calcium/Vitamin D 1 tablet 05/10/24 08:00 05/10/24 09:04 Calcium Carb/Vitamin D 1 [facility] Cholecalciferol 50 mcg 05/10/24 10:00 05/10/24 09:04 Cholecalciferol (Vit D3) 25 Mcg Tablet (1,000 Units) PO 50 mcg DAILY [facility] Administration Enoxaparin Sodium 40 mg 05/11/24 06:00 Enoxaparin 40 Mg/0.4 Ml Syringe SC DAILY@0600 [facility] Fluoxetine HCl 40 mg 05/10/24 10:00 05/10/24 09:04 Fluoxetine Hcl 40 Mg Capsule PO 40 mg DAILY [facility] Administration Gabapentin 100 mg 05/09/24 22:37 05/10/24 14:22 Gabapentin 100 Mg Capsule PO 05/23/24 22:38 100 mg Q8 [facility] Administration Levothyroxine Sodium 100 mcg 05/10/24 06:00 05/10/24 06:09 Levothyroxine 100 Mcg Tablet PO 100 mcg DAILY@0600 [facility] Administration Lidocaine 1 patch 05/10/24 10:00 05/10/24 09:05 Lidocaine 5% Patch TOPICAL 1 patch DAILY [facility] Administration Protocol Meclizine HCl 25 mg 05/09/24 22:20 Meclizine Hcl 25 Mg Tablet PO TID PRN PRN dizziness Methocarbamol 500 mg 05/09/24 22:39 05/10/24 00:37 Methocarbamol 500 Mg Tablet PO 500 mg TID PRN PRN Administration muscle spasm Multivitamins/Minerals 1 tablet 05/10/24 08:00 05/10/24 09:04 Multivitamins,Ther W-Minerals [facility]t [facility] Administration Oxycodone HCl 5 mg 05/10/24 07:43 Oxycodone 5 Mg Tablet PO Q4H PRN PRN Pain Score 1-10 Pantoprazole Sodium 20 mg 05/10/24 10:00 05/10/24 09:03 Pantoprazole Sodium 20 Mg Tablet PO 20 mg DAILY [facility] Administration Polyethylene Glycol 17 gm 05/10/24 10:00 05/10/24 09:04 Polyethylene Glycol 3350 17 Gm Packet PO 17 gm DAILY [facility] Administration Senna/Docusate Sodium 2 tablet 05/10/24 10:00 05/10/24 09:03 Senna/Docusate Sodium 1 Tablet PO 2 tablet BID [facility] Administration Sodium Chloride 10 - 40 ml 05/09/24 23:03 0.9% Saline Lock 10 Ml Syringe IV UD PRN SALINE FLUSH Triamcinolone Acetonide 1 applic 05/09/24 22:30 05/10/24 09:06 Triamcinolone 0.1% Ointment 15 Gm Tube TOPICAL 1 appful BID [facility] Administration Protocol Tuberculin PPD 0.1 ml 05/17/24 10:00 Tuberculin,Purif.Prot.Deriv. 50 Tu/Ml Vial ID 05/17/24 10:01 X1 ONE Problem List Migraines (Acute) BPPV (benign paroxysmal positional vertigo) (Acute) GERD (gastroesophageal reflux disease) (Acute) Hypothyroid (Acute) Depression (Acute) HLD (hyperlipidemia) (Acute) Osteoporosis (Acute) Debility (Acute) Compression fracture of T11 vertebra (Acute) Multiple rib fractures (Acute) Vital Signs Temp Pulse Resp BP Pulse Ox O2 Del Method O2 Flow Rate 97.6 F L 105 H 16 133/74 H 98 Nasal Cannula 2 05/10/24 09:22 05/10/24 09:22 05/10/24 09:22 05/10/24 09:22 05/10/24 09:22 05/10/24 09:22 05/10/24 11:26 Oxygen Flow Rate (L/min) 2 Oxygen Delivery Method Nasal Cannula Weight: 58.542 kg Body Mass Index (BMI) 25.2 Sodium 140 mmol/L (133-145) 05/10/24 05:15 Potassium 4.6 mmol/L (3.3-5.1) 05/10/24 05:15 Carbon Dioxide 23.6 mmol/L (22.0-29.0) 05/10/24 05:15 Anion Gap 12 (5-15) 05/10/24 05:15 BUN 23 mg/dL (4-19) H 05/10/24 05:15 Creatinine 0.6 mg/dL (0.6-1.0) 05/10/24 05:15 Est GFR (MDRD) Non-Af 94 (>60) 05/10/24 05:15 BUN/Creatinine Ratio 41.5 RATIO (10-20) H 05/10/24 05:15 Glucose 92 mg/dL (70-99) 05/10/24 05:15 Assessment/Plan: 1. Pain: acetaminophen 1000mg PO Q8, oxycodone 5mg PO Q4H PRN pain (1-10) and lidocaine 5% patch topical daily. Please continue to monitor for increased pain,rash and PRN usage. 2. Bowel: Miralax 17gm PO daily, senna/docusate 2T PO BID and magnesium citrate 300mL PO x1 today. Please continue to monitor for constipation and PRN usage. Last documented bowel movement 05/05. 3. DVT prophylaxis: enoxaparin 40mg SC daily. Please continue to monitor for S/Sof bleeding/DVT, hemoglobin (last 12g/dL), platelets (last 304,000) and renal function. 4. Osteoporosis: alendronate 70mg PO weekly, calcium/vitamin D 1T PO daily and cholecalciferol 50mcg PO daily. Please continue to monitor calcium (last 9mg/dL), vitamin D (last 09/09/22), renal function, jaw pain and BMD. Please administer alendronate first thing in the morning with a full glass of water on an empty stomach. 5. Hypothyroidism: levothyroxine 100mcg PO daily. Please continue to monitor TSH(last 09/08/22) and S/S of hypo/hyperthyroidism. 6. BPPV: meclizine 25mg PO TID PRN dizziness. No doses given. Please continue tomonitor for PRN usage and dizziness. 7. Muscle spasm: methocarbamol 500mg PO TID PRN muscle spasm. Resident has had 1dose. Please continue to monitor for PRN usage, muscle spasm and anticholinergicside effects (COLEs). 8. GERD: pantoprazole 20mg PO daily. Please continue to monitor for S/S of GERD and diarrhea (BEERs). 9. Rash: triamcinolone cream topical BID. Please continue to monitor for rash. 10. Nutrition: multivitamin with minerals. Please continue to monitor. 11. Hyperlipidemia: atorvastatin 20mg PO QHS. Please consider ordering a lipid panel as the last panel is from 2016. Thanks. Please continue to monitor for muscle pain and LFTs (last 05/05/24). Assessment/Plan for indications treated with psychotropic medications: 1. Depression: fluoxetine 40mg PO daily. Please see physician note regarding GDR. Please continue to monitor for suicidal ideation (suicidal ideation), falls/fractures (BEERs) and sodium (last 140mmol/L). 2. Neuropathic pain: gabapentin 100mg PO TID thru 05/23/24. Please continue to monitor for neuropathic pain, confusion, renal function and falls/fractures (BEERs). Medical chart and medication regimen reviewed. The following medication irregularities or issues were identified: 1. Atorvastatin 20mg PO QHS. Please consider ordering a lipid panel as the last panel is from 2016.Thanks. Date Date of Note: 05/10/24 Documented by User: Dr. Odilon Rodríguez MD 05/10/24 17:22 TCU RX Drug Regimen Review Provider Comments Provider responsibility Provider Comments to Recommendations by Pharmacy Agree 05/10/24 1526 Mildred Goins Signature (if applicable): 05/10/24 1722 CC: ~ Signed [facility]02-27-2025 Radiology Diagnostic study note [facility] Imaging Services [address] [place] [id number] Abdomen Single View MR#: [id number] Acct: [id number] Name: BRIANNE COCHRAN Rep #: [id number] : 1945 F 78 From: Kaela Peralta MD PCP: Dr. Vera Pompa MD Status: AD M IN Study:Abdomen Single View Date of Exam: 05/10/24 Exam# [id number] Ordering Dr: Odilon Rodríguez MD PROCEDURE: ABDOMEN SINGLE VIEW REASON FOR EXAM: Constipation TECHNIQUE: Single view abdomen. COMPARISON: None FINDINGS: Bowel gas pattern is normal. No evidence of bowel obstruction. Large amount of fecal debris throughout the colon. No suspicious calcifications. Status post vertebral body augmentation at T12. compression screws and intramedullary rods are noted fixing old bilateral intertrochanteric fractures. Osteoporosis. Old fracture deformity of the rightsuperior and inferiorpubic rami. RAD/Abdomen Single View IMPRESSION: Large amount of fecal debris throughout the colon consistent with constipation. Other nonacute findings detailed above. Reading Location: [place] [address] CC: Dr. Vera Pompa MD; Dr. Odilon Rodríguez MD ~ Dip Dyer: Signed [facility]02-27-2025 [facility] Medical Records Department [address] [place] [address] History Physical Exam 05/10/24 0744 MR#: [id number] Acct: [id number] Name: BRIANNE COCHRAN Rep #: [id number] : 1945 78 From: Odilon Rodríguez MD PCP: Dr. Vera Pompa MD Status:ADM IN Location: [facility] General General Date of Admission: 05/09/24 Date of Service: 05/10/24 Chief Complaint: Here for rehabilitation. HPI Narrative BRIANNE COCHRAN, is a 78 Female who presents with followin05/05/2024 Admit to [facility] for ground level fall, trauma. Traumatic injuries: 1. Nondisplaced posterior 10th and 11th right rib fractures. 2. Nondisplaced lateral 4th-8th left rib fractures. 3. Severe compression fracture of T11. Neurosurgery was consulted to help manage her spine fracture. Ultimately all of her injuries were treated conservatively with non-operative management. She was given a TLSO back brace to wear whenever she was out of bed. She was given as needed pain medication. A repeat chest x-ray was completed on 05/06/2024 and was stable. She was evaluated by physical therapy who recommended placement at correction facility. 05/09/2024 Admit to TCU with debility, here for rehabilitation, strengthening, prior to discharge home with . [facility] Medical History (Updated 05/10/24 @ 07:[address] Odilon Rodríguez MD) Hypothyroid Non-smoker Sleep apnea Hypertension Migraines Chronic anemia Obesity Anxiety and depression GERD (gastroesophageal reflux disease) HLD (hyperlipidemia) PAF (paroxysmal atrial fibrillation) Fibromyalgia Osteoporosis Paroxysmal atrial fibrillation T12 compression fracture Closed right hip fracture Syncope Home Medications ???Medication ???Instructions ???Recorded ???Last Taken ???Type alendronate 70 mg tablet 70 mg PO UD osteoporosis 09/07/22 Unknown History atorvastatin 20 mg tablet 20 mg PO QHS HLD 09/07/22 09/09/22 History fluoxetine 40 mg capsule 40 mg PO DAILY depression 09/07/22 09/10/22 History omeprazole 20 mg capsule,delayed 20 mg PO DAILY GERD 09/07/2205/09 History release calcium carbonate 500 mg (2.5 x 200 mg calcium (500 09/10/22 09/10/22 Rx mg)) PO TIDCM supplement #30 tabs oxycodone 5 mg tablet 5 mg PO Q6H PRN PRN Pain Score 05/09/24 18:10 Rx 1-10 7 days #28 tabs sennosides 8.6 mg-docusate sodium 2 tab PO BID 30 days #120 tabs Unknown Rx 50 mg tablet (Stool Softener-Stimulant Laxative) levothyroxine 100 mcg tablet 100 mcg PO DAILY THYROID 05/05/24 05/09/24 History meclizine 25 mg chewable tablet 25 mg PO TID PRN PRN dizziness Unknown History Allergy/AdvReac Type Severity Reaction Status Date / Time codeine Allergy Unknown Verified 05/05/24 15:08 codeine phosphate (From AdvReac Unknown Verified 05/05/24 15:08 Tylenol-Codeine #3) nabumetone (From Relafen) AdvReac Unknown Verified 05/05/24 15:08 naproxen AdvReac Unknown Verified 05/05/24 15:08 Family History Mother Cancer Father Cancer Surgical History S/P ORIF (open reduction internal fixation) fracture History of section H/O ovarian cystectomy History of total right hip replacement S/P kyphoplasty S/P ORIF (open reduction internal fixation) fracture Social History household members: spouse Smoking Status: Never smoker alcohol intake: never substance use type: does not use ROS Constitutional Constitutional: Reports weakness; Denies chills, fever(s) or weight gain ENT HEENT: Denies headache(s), nasal congestion or nasal discharge Cardiovascular Cardiovascular: Denies chest pain or palpitations Respiratory/Chest Respiratory/Chest: Denies cough, excessive phlegm production or shortness of breath with exertion Gastrointestinal Gastrointestinal: Denies abdominal pain, nausea or vomiting Genitourinary Genitourinary: Denies dysuria Musculoskeletal Musculoskeletal: Denies joint pain or joint swelling Integumentary Integumentary: Denies rash or wounds Neurologic Neurologic: Denies focal weakness, numbness or tingling Psychiatric Psychiatric: Denies anxiety, auditory hallucinations, depression, homicidal ideation or suicidal ideation Vital Signs Vital Signs Vital Signs: 05/09/24 21:55 05/09/24 21:55 Temperature 98.0 F Temperature Source Temporal Pulse Rate 84 84 Pulse Rhythm Regular Pulse Strength Normal (2+) Respiratory Rate 16 16 Respiratory Effort Normal Non-Labored Respiratory Depth Normal Respiratory Pattern Normal Blood Pressure 159/83 H Blood Pressure Mean 108 Pulse Ox 97 Oxygen Delivery Method Nasal Can (more content not included)...[facility]02-26-2025 Evaluation note* Diagnosis Onset Date Resolution Status Admit Date BPPV (benign paroxysmal positional vertigo) acute April 9:36pm Debility acute May 09, 2024 9:36pm Depression acute May 09, 2024 9:36pm GERD (gastroesophageal reflu x disease) acute May 09 025 9:36pm HLD (hyperlipidemia) acute 2024 9:36pm Hypothyroid acute April 9:36pm Migraines acute May 09, 2024 9:36pm Osteoporosis acute April 9:36pm Compression fracture of T11 vertebra inactive May 09 025 9:36pm Multiple rib fractures inactive [facility] 2024 9:36pm [facility] Work Phone: 1(343) 804-109602-26-2025 Evaluation note* Diagnosis Onset Date Resolution Status Admit Date Debility acute May 09, 2024 9:36pm Depression acute May 09, 2024 9:36pm GERD (gastroesophageal reflu x disease) acute May 09 9:36pm HLD (hyperlipidemia) acute Febr ua2024 9:36pm Hypothyroid acute April 9:36pm Osteoporosis acute April 9:36pm BPPV (benign paroxysmal positional vertigo) resolved April 9:36pm Migraines resolved May 09, 2024 9:36pm Compression fracture of T11 vertebra inactive May 09 9:36pm Multiple rib fractures inactive Fe bruary 2024 9:36pm [facility] Work Phone: [phone]) 786-554602-26-2025 NoteHNO ID: [id number] Author: ALEJANDRO SANDERS RN Service: Care Management Author Type: Registered Nurse Type: Care Mgt Progress Note Filed: 05/09/2024 13:57 Note Text: CARE MANAGEMENT DISCHARGE NOTE SERVICE DATE: May 09, 2024 SERVICE TIME: 1:56 PM Admission Date: 05/05/2024 LOS: 3 days Discharge Arrangement Discharge Arrangement: Retirement Facility Services Arranged Provider Name: [facility] Care Unit Caregiver Assessment Caregiver is ready, willing and able to meet the patient's needs as recommended by the inter-professional team: Yes Name of Caregiver: [facility] Care Unit [facility] [address] [place] [address] Transportation Arrangements Transportation Arrangements: Ambulance Transportation Agency and Phone #:: Other: See Comment ([facility] - [phone]) Date of Trip: 05/09/24 Time of Trip: 1800 Type of Service: BLS Non-emergency Is Patient Medicaid Pending?: No Was transportation financial coverage discussed with family?: 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 Plan for DC today to [facility]. Patient agreeable. [facility] to transport via cot at 1800. Transport packet placed on front of chart. RN made aware. Current CM needs addressed. No new needs identified at this time. CM will continue to follow clinical course for further transitional, discharge or POC needs. Discharge Information Row Name ED to Hosp-Admission (Current) from 05/05/[address] [facility] Agency [facility] Transitional Care Unit SN[facility] [address] [place] [address] SIGNATURE: Alejandro Sanders RN PATIENT NAME: Brianne Cochran DATE: May 09, 2024 TIME: 1:56 [facility]02-26-2025 NoteHNO ID: [id number] Author: DARIUS MCNEIL APRN.CNP Service: General Surgery Author Type: Nurse Practitioner Type: Progress Notes Filed: 05/09/2024 11:24 Note Text: Documentation Query Please clarify the T11 Compression Fracture such as: T11 Compression fracture, due to trauma This document will become part of the patient's medical record.[facility]02-25-2025 NoteHNO ID: [id number] Author: ALEJANDRO SANDERS RN Service: Care Management Author Type: Registered Nurse Type: Care Mgt Progress Note Filed: 05/08/2024 13:07 Note Text: CARE MANAGEMENT PROGRESS NOTE SERVICE DATE: 05/08/2024 SERVICE TIME: 10:10 AM LOS: 2 days Post-Acute Discharge Planning Patient Goal(s): Independent living, General wellness, Be able to go home, Increase strength, Ambulate a little better, Better mobility, Less pain [place] [facility] Explained: Discharge Planning Participant(s): Patient/Family Comments: Anticipated # of Days Until Discharge: Transport at Discharge: Needs Prior to Discharge: Needs Prior to Discharge: To Be Determined, Discharge Prescriptions, OT/PT Evaluation, Discharge Transportation IMM Follow Up Copy Given: Yes Copy given to:: Patient Method: In Person (verbalized understanding) Post-Acute Discharge Plan: Chart reviewed, [facility] is able to accept. Facility will start precert. Will need DC tx when ready. Forms on chart. CM will continue to follow clinical course for further transitional, discharge or POC needs. Update May 08, 2024 1:00 PM Precert is approved for [facility] through 05/14. Patient not medically ready as of yet. SIGNATURE: Alejandro Sanders RN PATIENT NAME: Brianne Cochran DATE: May 08, 2024 TIME: 10:10 [facility]02-25-2025 NoteHNO ID: [id number] Author: CAMERON ALVAREZ PA-C Service: General Surgery Author Type: Physician [employer] Accountant Type: Progress Notes Filed: 05/08/2024 09:54 Note Text: Trauma Surgery Progress Note SERVICE DATE: 05/08/2024 Trauma Service Pager: For questions or concerns Mon-Fri 6a-5p please page [phone]. After 5pm and on Weekends and Holidays, please page [phone] if in ICU or [phone] if on RNF. SUBJECTIVE: Patient was asleep but woke to voice. She follows all commands. No new or acute events reported overnight. Her pain is a 3/10 at rest this morning. She denied any current HALL, SOB, N/V, or ABD pain. Reaching 400 on her IS. She was able to get to the chair at the bedside with PT yesterday. No new focal concerns. OBJECTIVE: Vitals: Temp (24hrs), Av.5 ?C (97.7 ?F), Min:36.4 ?C (97.6 ?F), Max:36.5 ?C (97.7 ?F) BP 153/91 Pulse 85 Temp 36.5 ?C (97.7 ?F) Resp 18 Ht 152.4 cm (5') Wt 59 kg (130 lb) SpO2 94% BMI 25.39 kg/m? O2 Therapy: Nasal Cannula IANDO: Date 05/07/24699 - 05/08/24 0659 05/08/24 07 - 05/09/24 0659 Shift 5545-6385 1298-9819 9312-7632 24 Hour Total 9911-5630 6560-6302 4830-3047 24 Hour Total INTAKE PO 240 680 920 PO 240 680 920 Shift Total 240 680 920 OUTPUT Urine Urine Not Saved. 1 x 1 x 2 x Shift Total Weight (kg) 59 59 59 59 59 59 59 59 MEDICATIONS: Current Facility-Administered Medications Medication Dose Route Frequency enoxaparin 30 mg injection (LOVENOX) 30 mg SUBCUTANEOUS q 12 HR methocarbamol 500 mg tab(s) (ROBAXIN) 500 mg ORAL TID PRN acetaminophen 975 mg tab(s) (TYLENOL) 975 mg ORAL q 8 H gabapentin 100 mg cap(s) (NEURONTIN) 100 mg ORAL q 8 H atorvastatin 20 mg tab(s) (LIPITOR) 20 mg ORAL DAILY pantoprazole DR 20 mg tab(s) (PROTONIX) 20 mg ORAL DAILY (6 AM) senna-docusate 8.6-50 mg 1 tablet (SENNA-S) 1 tablet ORAL BID FLUoxetine 40 mg cap(s) (PROzac) 40 mg ORAL DAILY levothyroxine 100 mcg tab(s) (SYNTHROID) 100 mcg ORAL DAILY (6 AM) ipratropium-albuterol 3 mL nebulizer solution (DUONEB) 3 mL INHALATION q 6 H PRN ondansetron 4 mg tab(s) (ZOFRAN) 4 mg ORAL q 6 H PRN Or ondansetron (PF) 4 mg injection (ZOFRAN) 4 mg INTRAVENOUS q 6 H PRN oxyCODONE IR 5-10 mg tab(s) (ROXICODONE) 5-10 mg ORAL q 6 H PRN sodium chloride 0.9 % (flush) 2-10 mL (BD POSIFLUSH) 2-10 mL INTRAVENOUS DIRECTED PRN And perflutren lipid microspheres 1.1 mg/mL 1.3 mL injection (DEFINITY) 1.3 mL INTRAVENOUS DIRECTED PRN lidocaine 4 % 1 Patch (SALONPAS) 1 Patch TRANSDERMAL DAILY And lidocaine patch - REMOVE OTHER AT BEDTIME And lidocaine - VERIFY PATCH OTHER q 8 H polyethylene glycol 3350 17 g packet 17 g ORAL DAILY Labs: Recent Labs 05/08/24 0442 05/07/24 0253 05/06/24 0424 05/06/24 0424 05/06/24 0102 NA 138 140 < > 139 -- K 4.2 4.3 < > 4.2 -- CHLOR 102 106 < > 104 -- CO2 26 24 < > 19* -- BUN 26* 17 < > 14 -- CREAT 0.69 0.65 < > 0.52* -- GLUC 120* 117* < > 156* -- ANION 10 10 < > 16* -- CA 8.9 8.7 < > 8.9 -- MG 2.1 1.9 < > 1.7 -- P -- -- -- 3.3 -- WBC 9.93 10.52 < > 8.12 -- HB 13.4 12.4 < > 13.0 -- HCT 42.6 38.5 < > 39.9 -- PLT 289 302 < > 308 -- INR -- -- -- -- 1.0 < > = values in this interval not displayed. PHYSICAL EXAM: Genl: Appears age appropriate. No acute distress. Resting comfortably. Head/Face: Normocephalic. Atraumatic Eyes: EOMI. PERRLA. Sclera not icteric, not injected Resp: Lungs CTAB. No wheezes, rales or rhonchi. Respiratory status stable on 2L NC @ 94%. Mild bilateral chest wall TTP. CVS: HR as above. 2+ RA, DP pulses bilaterally. GI: Abdomen is soft, non-tender, non-distended. No guarding or peritoneal signs. MSK: No gross deformities. No clubbing, cyanosis or edema. Normal AROM x 4. Skin: Warm and dry. Not jaundiced. Neuro: AANDOx3. Strength and sensation grossly intact in all extremities. FAM. GCS15. Psych: Normal mood. Normal affect. Appropriate insight into current situation. ASSESSMENT AND PLAN: Assessment Active Hospital Problems Diagnosis Date Noted Closed wedge compression fracture of T11 vertebra with routine healing 05/08/2024 Trauma 05/08/2024 Syncope and collapse 05/08/2024 Acute pain due to trauma 05/07/2024 Acute respiratory insufficiency 05/07/2024 Multiple rib fractures involving four or more ribs 05/06/2024 Fall 05/06/2024 Multiple fractures of ribs, bilateral, initial encounter for closed fracture 05/06/2024 Closed wedge compression fracture of T12 vertebra (HCC) 05/06/2024 Hypothyroidism 03/16/2005 78-year old female s/p ground level fall on 05/05/24 (Trauma transfer from [facility]) Imaging performed: CT chest, XR left forearm, XR right wrist (05/05) CT HNTL-spine, CXR, MRI CTL-spine (05/06) XR T/L-spine (05/07) Traumatic Injuries: Nondisplaced posterior 10th AND 11th right rib fractures Nondisplaced lateral 4th-8th left rib fractures Severe compression fracture of T11 Operations/Procedures: None Care Plan: Bilateral (more content not included)...[facility]02-24-2025 NoteHNO ID: [id number] Author: ALEJANDRO SANDERS RN Service: Care Management Author Type: Registered Nurse Type: Care Mgt Progress Note Filed: 05/07/2024 15:36 Note Text: CARE MANAGEMENT PROGRESS NOTE SERVICE DATE: 05/07/2024 SERVICE TIME: 3:36 PM LOS: 1 day Post-Acute Discharge Planning Patient Goal(s): Independent living, General wellness, Be able to go home, Increase strength, Ambulate a little better, Better mobility, Less pain [place] Explained: [place] of Choice Given: Yes Level of Care Discussed: Retirement Facility Discharge Planning Participant(s): Patient Patient/Family Comments: Anticipated # of Days Until Discharge: Transport at Discharge: Transportation Arrangements: To Be Determined Needs Prior to Discharge: Needs Prior to Discharge: To Be Determined, Discharge Prescriptions, OT/PT Evaluation, Discharge Transportation Post-Acute Discharge Plan: Chart reviewed, referral sent to [facility]. CM will continue to follow clinical course for further transitional, discharge or POC needs. SIGNATURE: Alejandro Sanders RN PATIENT NAME: Brianne Cochran DATE: May 07, 2024 TIME: 3:36 [facility]02-24-2025 NoteHNO ID: [id number] Author: CRISSY GODDARD APRN.AUTOMATION ANALYST Service: Neurosurgery Author Type: Nurse Practitioner Type: Plan of Care Filed: 05/07/2024 15:01 Note Text: Neurosurgery plan of care UR XR Thoraco-lumbar reviewed, stable. Rec 4 week follow up with repeat UR XR. We will sign off, please call with any questions or concerns. Discussed with Dr. Benedict. Crissy Goddard CORPORATE BOND TRADER.AUTOMATION ANALYST [phone] [facility][id number] NoteHNO ID: [id number] Author: CHAR PAUL RN Service: Care Management Author Type: Registered Nurse Type: Care Mgt Initial Assessment Filed: 05/07/2024 13:55 Note Text: CARE MANAGEMENT: ASSESSMENT AND DISCHARGE PLAN SERVICE DATE: May 07, 2024 SERVICE TIME: 1:53 PM PCP: Vera Pompa MD Primary Contact: Extended Emergency Contact Information Primary Emergency Contact: Berny Cochran Address: [address] [address] [place] [address] Mobile Relation: Spouse Admission Status: Inpatient Insurance Provider: [employer] MEDICARE PPO Discharge Planning requested by: Per Department Practice Potential Transition Plans To Be Determined, Retirement Facility/Intermediate Care Facility Advance Directives Current Advance Directive: Health Care Power of [place], Living Will In Chart: No Current Living Arrangements and Support Lives with: Spouse/significant other Type of Residence: Private Residence (House) Does the patient have to climb stairs at home?: Yes, stairs outside the home, stairs within the home Support: Family members, Friends/neighbors, Spouse/significant other How do you manage to accomplish the following: Independent: Ambulation, Bathe/Shower, Dress, Meals/Meal Prep, Going to the bathroom, Medication Management Dependent: Transportation to appointments/community Current Services/Equipment Current Post-Acute Service(s): DME Current DME Type: Walker Discharge Planning Patient Goal(s): Independent living, General wellness, Be able to go home, Increase strength, Ambulate a little better, Better mobility, Less pain [place] Choice Explained: [place] of Choice Given: Yes Level of Care Discussed: Retirement Facility Are you interested in bedside delivery of your medications? No Discharge Planning Participant(s): Patient Patient/Family Comments: Caregiver Assessment: Caregiver is ready, willing and able to meet the patient's needs as recommended by the inter-professional team: No Transport at Discharge: Transportation Arrangements: To Be Determined Needs Prior to Discharge: Needs Prior to Discharge: To Be Determined, Discharge Prescriptions, OT/PT Evaluation, Discharge Transportation Post-Acute Discharge Plan: Patient is from home with spouse. Bedroom on main level. IND REPAIR ARMATURE WINDER. +Walker and ramp. -Driving, dependent on spouse for transportation. Uses [facility] for short term scripts. States she has AD's, not on file. Room air at baseline, currently on 2L/NC. Patient is retired. PT/OT recs are pending. Brace in place. If needed, patient would like [facility] for SNF. Will follow for transitional care planning. SIGNATURE: Char Paul RN PATIENT NAME: Brianne Cochran DATE: May 07, 2024 TIME: 1:53 [facility]02-24-2025 NoteHNO ID: [id number] Author: DARIUS MCNEIL APRN.BERNIE Service: General Surgery Author Type: Nurse Practitioner Type: Progress Notes Filed: 05/07/2024 09:55 Note Text: Trauma Surgery Progress Note SERVICE DATE: 05/07/2024 Trauma Service Pager: For questions or concerns Mon-Fri 6a-5p please page [phone]. After 5pm and on Weekends and Holidays, please page [phone] if in ICU or [phone] if on RNF. SUBJECTIVE: No acute overnight events. Patient is drowsy, but easily arousable to voice. She is alert and oriented x 3, FC, FAM. No new focal deficits. She reports that her pain is uncontrolled with her current regimen. Respiratory status stable on 2L NC. Only able to pull approximately 500 ml on IS. Awaiting TLSO brace and PT/OT evaluations. OBJECTIVE: Vitals: Temp (24hrs), Av ?C (98.6 ?F), Min:36.8 ?C (98.3 ?F), Max:37.1 ?C (98.8 ?F) BP 127/74 Pulse 85 Temp 37.1 ?C (98.8 ?F) Resp 16 Ht 152.4 cm (5') Wt 59 kg (130 lb) SpO2 93% BMI 25.39 kg/m? O2 Therapy: Nasal Cannula IANDO: MEDICATIONS: Current Facility-Administered Medications Medication Dose Route Frequency enoxaparin 30 mg injection (LOVENOX) 30 mg SUBCUTANEOUS q 12 HR methocarbamol 500 mg tab(s) (ROBAXIN) 500 mg ORAL TID PRN acetaminophen 975 mg tab(s) (TYLENOL) 975 mg ORAL q 8 H atorvastatin 20 mg tab(s) (LIPITOR) 20 mg ORAL DAILY pantoprazole DR 20 mg tab(s) (PROTONIX) 20 mg ORAL DAILY (6 AM) senna-docusate 8.6-50 mg 1 tablet (SENNA-S) 1 tablet ORAL BID FLUoxetine 40 mg cap(s) (PROzac) 40 mg ORAL DAILY levothyroxine 100 mcg tab(s) (SYNTHROID) 100 mcg ORAL DAILY (6 AM) ipratropium-albuterol 3 mL nebulizer solution (DUONEB) 3 mL INHALATION q 6 H PRN ondansetron 4 mg tab(s) (ZOFRAN) 4 mg ORAL q 6 H PRN Or ondansetron (PF) 4 mg injection (ZOFRAN) 4 mg INTRAVENOUS q 6 H PRN oxyCODONE IR 5-10 mg tab(s) (ROXICODONE) 5-10 mg ORAL q 6 H PRN sodium chloride 0.9 % (flush) 2-10 mL (BD POSIFLUSH) 2-10 mL INTRAVENOUS DIRECTED PRN And perflutren lipid microspheres 1.1 mg/mL 1.3 mL injection (DEFINITY) 1.3 mL INTRAVENOUS DIRECTED PRN lidocaine 4 % 1 Patch (SALONPAS) 1 Patch TRANSDERMAL DAILY And lidocaine patch - REMOVE OTHER AT BEDTIME And lidocaine - VERIFY PATCH OTHER q 8 H polyethylene glycol 3350 17 g packet 17 g ORAL DAILY Labs: Recent Labs 05/07/24 0253 05/06/24 0424 05/06/24 0102 NA 140 139 -- K 4.3 4.2 -- CHLOR 106 104 -- CO2 24 19* -- BUN 17 14 -- CREAT 0.65 0.52* -- GLUC 117* 156* -- ANION 10 16* -- CA 8.7 8.9 -- MG 1.9 1.7 -- P -- 3.3 -- WBC 10.52 8.12 -- HB 12.4 13.0 -- HCT 38.5 39.9 -- PLT 302 308 -- INR -- -- 1.0 PHYSICAL EXAM: Genl: Appears age appropriate. No acute distress. Resting comfortably. Head/Face: Normocephalic. Atraumatic Eyes: EOMI. PERRLA. Sclera not icteric, not injected Neck: No mid-line masses. C-spine non-tender. Back: No midline tenderness, step-offs or deformities. Resp: Lungs CTAB. No wheezes, rales or rhonchi. Respiratory status stable on 2L NC @ 93%. CVS: RRR as above. 2+ RA, DP, PT pulses bilaterally. GI: Abdomen is soft, non-tender, non-distended. No guarding or peritoneal signs. MSK: No gross deformities. No clubbing, cyanosis or edema. Normal AROM x 4. Skin: Warm and dry. Not jaundiced. Neuro: AANDOx3. Strength and sensation grossly intact in all extremities. FAM. GCS15. Psych: Normal mood. Normal affect. Appropriate insight into current situation. ASSESSMENT AND PLAN: Assessment Active Hospital Problems Diagnosis Date Noted Multiple rib fractures involving four or more ribs 05/06/2024 Fall 05/06/2024 Closed fracture of multiple ribs of both sides 05/06/2024 Closed wedge compression fracture of T12 vertebra (HCC) 05/06/2024 Hypothyroidism 03/16/2005 Myalgia 03/16/2005 Overview Note: fibromyalgia 78-year old female s/p ground level fall on 05/05/24 (Trauma transfer from [facility]) Imaging performed: CT chest, XR left forearm, XR right wrist (05/05) CT HNTL-spine, CXR, MRI CTL-spine (05/06) Traumatic Injuries: Nondisplaced posterior 10th, 11th right rib fractures Nondisplaced lateral 4th-8th left rib fractures Severe compression fracture of T11 Operations/Procedures: None Care Plan: Bilateral rib fractures Respiratory status stable on 2L NC CXR (05/06): No acute process Wean supplemental oxygen as tolerated Aggressive pulmonary hygiene Multimodal pain control T11 compression fracture NSGY consulted, appreciate recommendations MRI T-spine (05/06): Chronic compression deformities involving T3, T11, and T12 levels Anticipate non-operative management Obtain TLSO brace and upright imaging Bedrest until final recommendations given by NSGY Multimodal pain control PT/OT ?Syncope EKG (05/06): NSR Obtain ECHO, orthostatic vital signs Continuous cardiac monitoring Continue home medications as ordered Current diet order: Regular Pain regimen: Scheduled Tylenol, Gabapentin, Li (more content not included)... [facility]02-23-2025 NoteHNO ID: [id number] Author: TERRANCE BENEDICT MD Service: Neurosurgery Author Type: Physician Type: Plan of Care Filed: 05/06/2024 16:39 Note Text: NS plan of care - MRI reviewed; chronic T11, T12 fractures. No edema to suggest any acuity. Pain seems to be coming from rib fractures. Neuro intact on exam. TLSO brace for comfort. Upright films in brace. Will repeat XR in 6 weeks in the outpatient setting. Terrance Benedict, [facility]02-14-2025 NoteHNO ID: [id number] Author: LUIS EDUARDO BANERJEE MA Service: ? Author Type: Engraving Plate Maker Type: Progress Notes Filed: 04/27/2024 13:47 Note Text: POPULATION HEALTH NAVIGATION OUTREACH Action/FYI spoke to pt to schedule wellness, follow up, hcc gap closure, influenza. follow up was scheduled- pt said that she didn't get an influenza vaccine this year but she didn't say if she wanted one at [facility] Reason for Outreach Care Gap/HCC or Scheduling Wellness Visits Care Gaps due: Medicare Annual Wellness Visit Follow-up Appointment Flu Vaccine Patient Contacted: Spoke to patient/parent/or legal guardian Patient identified by name and : Yes Care Gap/HCC/Scheduling Wellness actions taken: Patient scheduled/pended orders: Follow-up Appointment 05/17/2024 in [facility] with VERA POMPA - follow up, influenza, hcc gap closure, review due hm HCC related Navigation Signature: Luis Eduardo Banerjee MA April 27, 2024 1:[address] of Present illness Narrative* Luis Eduardo Banerjee MA - 04/27/2024 1:44 PM EST POPULATION HEALTH NAVIGATION OUTREACH Action/FYI spoke to pt to schedule wellness, follow up, hcc gap closure, influenza. follow up was scheduled- pt said that she didn't get an influenza vaccine this year but she didn't say if she wanted one at [facility] Reason for Outreach Care Gap/HCC or Scheduling Wellness Visits Care Gaps due: Medicare Annual Wellness Visit Follow-up Appointment Flu Vaccine Patient Contacted: Spoke to patient/parent/or legal guardian Patient identified by name and : Yes Care Gap/HCC/Scheduling Wellness actions taken: Patient scheduled/pended orders: Follow-up Appointment 05/17/2024 in [facility] with VERA POMPA - follow up, influenza, hcc gap closure, review due hm HCC related Navigation Signature: Luis Eduardo Banerjee MA April 27, 2024 1:44 PM [facility] NotePatient Outreach (NETNAV) BRIANNE COCHRAN ([id number]) 1945 F Date Time Provider Department 04/27/24 LUIS EDUARDO BANERJEE During your visit today, we recorded the following information about you: Luis Eduardo Banerjee MA 04/27/2024 1:47 PM Signed POPULATION HEALTH NAVIGATION OUTREACH Action/FYI spoke to pt to schedule wellness, follow up, hcc gap closure, influenza. follow up was scheduled- pt said that she didn't get an influenza vaccine this year but she didn't say if she wanted one at [facility] Reason for Outreach Care Gap/HCC or Scheduling Wellness Visits Care Gaps due: Medicare Annual Wellness Visit Follow-up Appointment Flu Vaccine Patient Contacted: Spoke to patient/parent/or legal guardian Patient identified by name and : Yes Care Gap/HCC/Scheduling Wellness actions taken: Patient scheduled/pended orders: Follow-up Appointment 05/17/2024 in [facility] with VERA POMPA - follow up, influenza, hcc gap closure, review due hm HCC related Navigation Signature: Luis Eduardo Banerjee MA April 27, 2024 1:44 PM Allergies As of Date: 04/27/2024 Noted Allergy Reaction ACETAMINOPHEN-CODEINE 04/07/2023 16 - Unknown BIAXIN (CLARITHROMYCIN) 03/16/2005 16 - Unknown Comments: Doesn't remember, was a long time ago CODEINE 01/05/2007 Comments: unknown-long time ago NAPROXEN 11/23/2007 2 - Rash Comments: Generalized, nonpruritic RELAFEN (NABUMETONE) 03/16/2005 16 - Unknown Comments: Doesn't remember Date Reviewed: 09/01/2023 Reviewed by: Celso Day LPN - Fully Assessed Reason for Visit: Population Health Navigation Outreach [3910] Cmt: sharif ramos Prescriptions as of 04/27/2024 - levothyroxine (SYNTHROID) 100 mcg tablet Take 1 tablet by mouth once daily. - levothyroxine (SYNTHROID) 100 mcg tablet Take 1 tablet by mouth once daily. Take on empty stomach - alendronate (FOSAMAX) 70 mg tablet Take 1 tablet by mouth one time a week. - cyclobenzaprine (FLEXERIL) 5 mg tablet Take 1 tablet by mouth three times a day as needed. - omeprazole (PRILOSEC) 20 mg capsule Take 1 capsule by mouth daily before breakfast. 1/2 hr before meal. - atorvastatin (LIPITOR) 20 mg tablet Take 1 tablet by mouth once daily. - FLUoxetine (PROZAC) 40 mg capsule Take 1 capsule by mouth once daily. - meclizine 25 mg chewable tablet(s) CHEW AND SWALLOW 1 TABLET THREE TIMES DAILY NEEDED FOR DIZZINESS - FLUoxetine (PROZAC) 40 mg capsule Take 1 capsule by mouth once daily. - oxyCODONE IR (ROXICODONE) 5 mg immediate release tablet Take 1 tablet by mouth as directed. D/C from [facility]; for HIP fracture - senna-docusate (SENNA-S) 8.6-50 mg per tablet Take 1 tablet by mouth twice daily. - triamcinolone (KENALOG) 0.025 % ointment Apply [...] once daily. 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 He voices understanding. Madelaine Nath RN [facility]08-27-2024 Miscellaneous Notes* Telephone Encounter - Madelaine Nath RN - 11/08/2023 12:12 PM EDT Pts called and is notified of providers message. He voices understanding. Madelaine Nath RN * Telephone Encounter - Vera Pompa MD - 11/08/2023 11:45 AM EDT OK to refill as ordered Vera Pompa MD * Telephone Encounter - Madelaine Nath RN - 11/08/2023 11:36 AM EDT The patient has been identified by name and date of : Yes Caregiver verified no other encounters exist for this prescription request: Yes Caregiver confirmed with patient/requestor that no other refills are due, in the near future, with this provider at this time: Yes The last office visit in the department: 09/01/2023 Does the patient have a future office visit with this provider/department: Yes 11/15/2023 Requested Prescriptions Pending Prescriptions Disp Refills alendronate (FOSAMAX) 70 mg tablet 12 tablet 3 Sig: Take 1 tablet by mouth one time a week. Madelaine Nath RN November 08, 2023 11:36 AM documented in this encounterK[facility]08-27-2024 Telephone encounter Note * Telephone Encounter - Vera Pompa MD - 11/08/2023 11:45 AM EDT OK to refill as ordered Vera Pompa MD [facility]08-27-2024 Telephone encounter Note* Telephone Encounter - Madelaine Nath RN - 11/08/2023 11:36 AM EDT The patient has been identified by name and date of : Yes Caregiver verified no other encounters exist for this prescription request: Yes Caregiver confirmed with patient/requestor that no other refills are due, in the near future, with this provider at this time: Yes The last office visit in the department: 09/01/2023 Does the patient have a future office visit with this provider/department: Yes 11/15/2023 Requested Prescriptions Pending Prescriptions Disp Refills alendronate (FOSAMAX) 70 mg tablet 12 tablet 3 Sig: Take 1 tablet by mouth one time a week. Madelaine Nath RN November 08, 2023 11:36 AM [facility]08-26-2024 NoteHNO ID: [id number] Author: LISA FAIRCHILD MA Service: ? Author Type: Engraving Plate Maker Type: Progress Notes Filed: 11/30/2023 10:11 Note Text: TRANSITION CARE MANAGEMENT (TCM) INITIAL CONTACT Engraving Plate Maker Outreach Provider Action/FYI: Called and spoke with pt who reports she overall feels the same, but no worse. Pt reports she feels tired, but this is an ongoing issue for her. Willing to setup appt requesting appt around 11:20 am next week, due to spouse having an appt this week in [place]. Initial contact with patient post discharge, spoke to patient. Patient identified by name and . TRANSITION CARE MANAGEMENT INITIAL OUTREACH DOCUMENTATION: No data to display SUMMARY: -Pt discharged from [facility] on 11/05/23. -Admitted for: Diagnosis Discharge Diagnosis (1) Generalized weakness: Status: Acute Code(s): R53.1 - Weakness Plan Patient is a 78-year-old lady admitted with progressive generalized weakness found to have abnormal urinalysis consistent with cystitis admitted to regular nursing floor for further management 1. Acute cystitis ? 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 Urine cultures came back positive for E. coli; patient was discharged on ciprofloxacin 2. Physical deconditioning ? Requested for PT OT eval and social sciences lecturer to assist with discharge planning 3. Hypothyroidism ? Patient is on levothyroxine home dose continued 4. Paroxysmal atrial fibrillation ? Patient EKG on admission?sinus rhythm 5. GERD ? Patient is on PPI 6. Depression ? Patient is on fluoxetine 7. Dyslipidemia ?Patient is on statin therapy, continued at home dose 8. Osteoporosis ? Patient is on alendronate 8. DVT prophylaxis ? On enoxaparin Pt given Cipro 500 mg 1 tab po bid #14. 11/03/23 Hospitalist Intake: Chief Complaint: Generalized weakness, dizziness for last 2 days. HPI Narrative BRIANNE COCHRAN, is a 78 F was brought to ED for dizziness that started yesterday when she was not feeling well, generalized weakness and in bed all day yesterday. In the morning today she felt very weak and she could not climb downon steps. She said she could not walk and required help in order to walk. Her baseline is walking on cane. She also had nausea and felt like chills but denies fever. She does not have focal signs and symptoms pointing to TIA or stroke. In ED, UAshows positive for pyuria but she denies symptoms of burning micturition/dysuria, increased frequency or urgency or new symptoms. She had a UTI in the past Vital signs in the ED within normal limit. No fever. Hospital records have been copied from [facility]/[employer] Do you have a hospital follow up appointment with your PCP? Appointment on 11/15/23 at 11:20 am with Apryl Gorman CNP. MEDICATIONS: Many patients have questions or concerns about their medications once they are home. Were you prescribed any new medications? Yes, Cipro 500 mg bid #14 Were you told to hold any medications? No Were any of your medications discontinued? No Do you have any questions about getting or taking your medications? No Your discharge instructions/After visit Summary (AVS) are important in guiding you through the recovery process. Is there anything I might help you understand? No Do you have all the necessary equipment and supplies at home? Yes Medical records from recent hospitalization: [facility]08-26-2024 History of Present illness Narrative* FairchildLisa chiang MA - 11/07/2023 12:28 PM EDT Images from the original note were not included. TRANSITION CARE MANAGEMENT (TCM) INITIAL CONTACT [employer] [facility] Provider Action/FYI: Called and spoke with pt who reports she overall feels the same, but no worse. Pt reports she feelstired, but this is an ongoing issue for her. Willing to setup appt requesting appt around 11:20 am next week, due to spouse having an appt this week in [place]. Initial contact with patient post discharge, spoke to patient. Patient identified by name and . TRANSITION CARE MANAGEMENT INITIAL OUTREACH DOCUMENTATION: No data to display SUMMARY: -Pt discharged from [facility] on 11/05/23. -Admitted for: Diagnosis Discharge Diagnosis (1) Generalized weakness: Status: Acute Code(s): R53.1 - Weakness Plan Patient is a 78-year-old lady admitted with progressive generalized weakness found to have abnormalurinalysis consistent with cystitis admitted to regular nursing floor for further management 1. Acute cystitis ? 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 Urine cultures came back positive for E. coli; patient was discharged on ciprofloxacin 2. Physical deconditioning ? Requested for PT OT eval and social sciences lecturer to assist with discharge planning 3. Hypothyroidism ? Patient is on levothyroxine home dose continued 4. Paroxysmal atrial fibrillation ? Patient EKG on admission?sinus rhythm 5. GERD ? Patient is on PPI 6. Depression ? Patient is on fluoxetine 7. Dyslipidemia ?Patient is on statin therapy, continued at home dose 8. Osteoporosis ? Patient is on alendronate 8. DVT prophylaxis ? On enoxaparin Pt given Cipro 500 mg 1 tab po bid #14. 11/03/23 Hospitalist Intake: Chief Complaint: Generalized weakness, dizziness for last 2 days. HPI Narrative BRIANNE COCHRAN, is a 78 F was brought to ED for dizziness that started yesterday when she was not feeling well, generalized weakness and in bed all day yesterday. In the morning today she felt very weakand she could not climb downon steps. She said she could not walk and required help in order to walk. Her baseline is walking on cane. She also had nausea and felt like chills but denies fever. She does not have focal signs and symptoms pointing to TIA or stroke. In ED, UAshows positive for pyuria but she denies symptoms of burning micturition/dysuria, increased frequency or urgency or new symptoms. She had a UTI in the past Vital signs in the ED within normal limit. No fever. Hospital records have been copied from [facility] [employer] Do you have a hospital follow up appointment with your PCP? Appointment on 11/15/23 at 11:20 am with Apryl Gorman CNP. MEDICATIONS: Many patients have questions or concerns about their medications once they are home. Were you prescribed any new medications? Yes, Cipro 500 mg bid #14 Were you told to hold any medications? No Were any of your medications discontinued? No Do you have any questions about getting or taking your medications? No Your discharge instructions/After visit Summary (AVS) are important in guiding you through the recovery process. Is there anything I might help you understand? No Do you have all the necessary equipment and supplies at home? Yes Medical records from recent hospitalization: [facility] Everywhere [facility] NotePatient Outreach (FAMPWS) BRIANNE COCHRAN ([id number]) 1945 F Date Time Provider Department 11/07/23 VERA POMPAPWS During your visit today, we recorded the following information about you: Lisa Fairchild MA 11/30/2023 10:11 AM Signed TRANSITION CARE MANAGEMENT (TCM) INITIAL CONTACT [employer] Out[facility] Provider Action/FYI: Called and spoke with pt who reports she overall feels the same, but no worse. Pt reports she feels tired, but this is an ongoing issue for her. Willing to setup appt requesting appt around 11:20 am next week, due to spouse having an appt this week in [place]. Initial contact with patient post discharge, spoke to patient. Patient identified by name and . TRANSITION CARE MANAGEMENT INITIAL OUTREACH DOCUMENTATION: No data to display SUMMARY: -Pt discharged from [facility] on 11/05/23. -Admitted for: Diagnosis Discharge Diagnosis (1) Generalized weakness: Status: Acute Code(s): R53.1 - Weakness Plan Patient is a 78-year-old lady admitted with progressive generalized weakness found to have abnormal urinalysis consistent with cystitis admitted to regular nursing floor for further management 1. Acute cystitis ? 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 Urine cultures came back positive for E. coli; patient was discharged on ciprofloxacin 2. Physical deconditioning ? Requested for PT OT eval and social sciences lecturer to assist with discharge planning 3. Hypothyroidism ? Patient is on levothyroxine home dose continued 4. Paroxysmal atrial fibrillation ? Patient EKG on admission?sinus rhythm 5. GERD ? Patient is on PPI 6. Depression ? Patient is on fluoxetine 7. Dyslipidemia ?Patient is on statin therapy, continued at home dose 8. Osteoporosis ? Patient is on alendronate 8. DVT prophylaxis ? On enoxaparin Pt given Cipro 500 mg 1 tab po bid #14. 11/03/23 Hospitalist Intake: Chief Complaint: Generalized weakness, dizziness for last 2 days. HPI Narrative BRIANNE COCHRAN, is a 78 F was brought to ED for dizziness that started yesterday when she was not feeling well, generalized weakness and in bed all day yesterday. In the morning today she felt very weak and she could not climb downon steps. She said she could not walk and required help in order to walk. Her baseline is walking on cane. She also had nausea and felt like chills but denies fever. She does not have focal signs and symptoms pointing to TIA or stroke. In ED, UAshows positive for pyuria but she denies symptoms of burning micturition/dysuria, increased frequency or urgency or new symptoms. She had a UTI in the past Vital signs in the ED within normal limit. No fever. Hospital records have been copied from [facility] Do you have a hospital follow up appointment with your PCP? Appointment on 11/15/23 at 11:20 am with Apryl Gorman CNP. MEDICATIONS: Many patients have questions or concerns about their medications once they are home. Were you prescribed any new medications? Yes, Cipro 500 mg bid #14 Were you told to hold any medications? No Were any of your medications discontinued? No Do you have any questions about getting or taking your medications? No Your discharge instructions/After visit Summary (AVS) are important in guiding you through the recovery process. Is there anything I might help you understand? No Do you have all the necessary equipment and supplies at home? Yes Medical records from recent hospitalization: [facility] Everywhere Allergies As of Date: 11/07/2023 Noted Allergy Reaction ACETAMINOPHEN-CODEINE 04/07/2023 16 - Unknown BIAXIN (CLARITHROMYCIN) 03/16/2005 16 - Unknown Comments: Doesn't remember, was a long time ago CODEINE 01/05/2007 Comments: unknown-long time ago NAPROXEN 11/23/2007 2 - Rash Comments: Generalized, nonpruritic RELAFEN (NABUMETONE) 03/16/2005 16 - Unknown Comments: Doesn't remember Date Reviewed: 09/01/2023 Reviewed by: Celso Day LPN - Fully Assessed Reason for Visit: Transition Of Care [4074] Prescriptions as of 11/30/2023 - alendronate (FOSAMAX) 70 mg tablet Take 1 tablet by mouth one time a week. - cyclobenzaprine (FLEXERIL) 5 mg tablet Take 1 tablet by mouth three times a day as needed. - omeprazole (PRILOSEC) 20 mg capsule Take 1 capsule by mouth daily before breakfast. 1/2 hr before meal. - atorvastatin (LIPITOR) 20 mg tablet Take 1 tablet by mouth once daily. - levothyroxine (SYNTHROID) 100 mcg tablet Take 1 tablet by mouth once daily. - FLUoxetine (PROZAC) 40 mg capsule Take 1 capsule by mouth once daily. - meclizine 25 mg chewable tablet(s) CHEW AND SWALLOW 1 TABLET THREE TIMES DAILY NEEDED FOR DIZZIN (more content not included)...[facility]08-24-2024 [facility] Medical Records Department [address] [place] [address] Discharge Summary 11/05/23 1127 MR#: [id number] Acct: [id number] Name: BRIANNE COCHRAN Rep #: [id number] : 1945 78 From: Venancio Shrestha MD PCP: Dr. Vera Pompa MD Status:ADM IN Location: [facility] [id number] Providers Date of Admission: 11/03/23 Date of Discharge: 11/05/23 Primary Care Physician: Dr. Vera Pompa MD Reason For Visit: GEN WEAKNESS Diagnosis Discharge Diagnosis (1) Generalized weakness: Status: Acute Code(s): R53.1 - Weakness Plan Patient is a 78-year-old lady admitted with progressive generalized weakness found to have abnormal urinalysis consistent with cystitis admitted to regular nursing floor for further management 1. Acute cystitis ??? 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 Urine cultures came back positive for E. coli; patient was discharged on ciprofloxacin 2. Physical deconditioning ??? Requested for PT OT eval and social sciences lecturer to assist with discharge planning 3. Hypothyroidism ??? Patient is on levothyroxine home dose continued 4. Paroxysmal atrial fibrillation ??? Patient EKG on admission???sinus rhythm 5. GERD ??? Patient is on PPI 6. Depression ??? Patient is on fluoxetine 7. Dyslipidemia ???Patient is on statin therapy, continued at home dose 8. Osteoporosis ??? Patient is on alendronate 8. DVT prophylaxis ??? On enoxaparin Time spent in the patient's overall evaluation,decision-making process, review of diagnostic data, adjustment of management, discussion with other providers, nursing nursing and ancillary staff involved in patient's care documentation, 36 Minutes Medications at Discharge Home Medications alendronate 70 mg tablet 70 mg PO UD osteoporosis 09/07/22 atorvastatin 20 mg tablet 20 mg PO QHS HLD 09/07/22 fluoxetine 40 mg capsule 40 mg PO DAILY depression 09/07/22 levothyroxine 75 mcg tablet 75 mcg PO DAILY thyroid 09/07/22 omeprazole 20 mg capsule,delayed release 20 mg PO DAILY GERD 09/07/22 calcium carbonate 500 mg (2.5 x 200 mg calcium (500 mg)) PO TIDCM supplement #30 tabs 09/10/22 oxycodone 5 mg tablet 5 mg PO Q6H PRN PRN Pain Score 1-10 7 days #28 tabs 09/28/22 sennosides 8.6 mg-docusate sodium 50 mg tablet (Stool Softener-Stimulant Laxative) 2 tab PO BID 30 days #120 tabs 09/28/22 meclizine 25 mg chewable tablet (Antivert) 25 mg PO TID PRN dizziness #14 tabs 05/25/23 ciprofloxacin HCl 500 mg tablet (Cipro) 500 mg PO BID #14 tabs 11/05/23 Physical Exam Narrative GENERAL: cooperative HEENT: Atraumatic; normocephalic EYES; Anicteric, Normal Conjunctiva NECK; supple, normal thyroid, RESPIRATORY: Diminished to auscultation CARDIOVASCULAR: Regular S1 S2, GI: soft, normoactive bowel sounds, : No Renal angle tenderness; EXTREMITIES: No edema, no clubbing, MUSCULOSKELETAL: no muscle wasting NEURO: Awake; no lateralizing signs. SKIN: No Rash PSYCH; Flat affect Weight / BMI Weight Weight: 60.9 kg Body Mass Index (BMI) 26.2 ABG / Lab / Microbiology Data 11/05/23 05:10 11/05/23 05:10 Laboratory: Laboratory Results - last 24 hr 11/05/23 05:10: WBC 7.5, RBC 4.10 L, Hgb 12.3, Hct 38.7, MCV 94.4, MCH 30.0, MCHC 31.8 L, RDW Std Deviation 42.9, RDW Coeff of Serafin 12.4, Plt Count 260, MPV 10.0, Immature Gran % (Auto) 0.300, Neut % (Auto) 54.9, Lymph % (Auto) 29.0, [place] % (Auto) 8.0, Eos % (Auto) 6.7 H, Baso % (Auto) 1.1 H, Absolute Neuts (auto) 4.1, Absolute Lymphs (auto) 2.17, Nucleated RBC % 0, Sodium 136, Potassium 4.0, Chloride 110 H, Carbon Dioxide 19.0 L, Anion Gap 7, BUN 21 H, Creatinine 0.63, Estim Creat Clear Calc 48.79, Est GFR (MDRD) Af Amer 118, Est GFR (MDRD) Non-Af 98, BUN/Creatinine Ratio 33.3 H, Glucose 80, Calcium 8.4 L Microbiology: Microbiology 11/03/23 12:44 Urine, Catheterized Urine Culture - Final Escherichia coli D/C Instructions Discharge Diet: No restrictions Discharge Activity: Return to Normal Activity Call your doctor if you observe: Fever of 101 or Higher, Shortness of breath, Fainting spells and Chest pain Meaningful Use Info Meaningful Use Meaningful Use Diagnoses (Choose all that apply): None applicable Ischemic Stroke Statin Dosing Therapy Reference: STATIN DOSE THERAPY REFERENCE: * Patients > 75 years receive moderate or high dose statin therapy. * Patients 75 years or YOUNGER should receive HIGH intensity statin dose unless contraindicated. You will be required to document reason for non-treatment if statin daily dose does not meet guidelines. HIGH DOSE STATIN THERAPY DAILY Atorvastatin > than or = to 40 mg Rosuvastatin > than or = to 20 mg (more content not included)...[facility]08-09-2024 Telephone encounter Note* Telephone Encounter - Vera Pompa MD - 10/21/2023 11:36 AM EDT OK to refill as ordered Vera Pompa MD [facility]08-09-2024 Miscellaneous Notes* Telephone Encounter - Vera Pompa MD - 10/21/2023 11:36 AM EDT OK to refill as ordered Vera Pompa MD * Telephone Encounter - Janette Piña LPN - 10/21/2023 9:48 AM EDT The patient has been identified by name and date of : Yes Caregiver verified no other encounters exist for this prescription request: Yes Caregiver confirmed with patient/requestor that no other refills are due, in the near future, with this provider at this time: Yes The last office visit in the department: 09/01/2023 Does the patient have a future office visit with this provider/department: Yes 12/30/2023 Requested Prescriptions Pending Prescriptions Disp Refills cyclobenzaprine (FLEXERIL) 5 mg tablet 270 tablet 1 Sig: Take 1 tablet by mouth three times a day as needed. Janette Piña LPN October 21, 2023 9:49 AM [facility] in [facility] Telephone encounter Note * Telephone Encounter - Janette Piña LPN - 10/21/2023 9:48 AM EDT The patient has been identified by name and date of : Yes Caregiver verified no other encounters exist for this prescription request: Yes Caregiver confirmed with patient/requestor that no other refills are due, in the near future, with this provider at this time: Yes The last office visit in the department: 09/01/2023 Does the patient have a future office visit with this provider/department: Yes 12/30/2023 Requested Prescriptions Pending Prescriptions Disp Refills cyclobenzaprine (FLEXERIL) 5 mg tablet 270 tablet 1 Sig: Take 1 tablet by mouth three times a day as needed. Janette Piña LPN October 21, 2023 9:49 AM [facility]08-06-2024 Telephone encounter Note* Telephone Encounter - Apryl Gorman APRN.CNP - 10/18/2023 11:01 AM EDT The following approved medication requests have been transmitted electronically. Requested Prescriptions Pending Prescriptions Disp Refills omeprazole (PRILOSEC) 20 mg capsule 90 capsule 3 Sig: Take 1 capsule by mouth daily before breakfast. 1/2 hr before meal. Apryl Gorman APRN.CNP [facility]08-06-2024 Miscellaneous Notes* Telephone Encounter - Apryl Gorman APRN.CNP - 10/18/2023 11:01 AM EDT The following approved medication requests have been transmitted electronically. Requested Prescriptions Pending Prescriptions Disp Refills omeprazole (PRILOSEC) 20 mg capsule 90 capsule 3 Sig: Take 1 capsule by mouth daily before breakfast. 1/2 hr before meal. Apryl Gorman APRN.CNP * Telephone Encounter - Madelaine Nath RN - 10/18/2023 10:54 AM EDT The patient has been identified by name and date of : Yes Caregiver verified no other encounters exist for this prescription request: Yes Caregiver confirmed with patient/requestor that no other refills are due, in the near future, with this provider at this time: Yes The last office visit in the department: 09/01/2023 Does the patient have a future office visit with this provider/department: Yes 12/30/2023 Requested Prescriptions Pending Prescriptions Disp Refills omeprazole (PRILOSEC) 20 mg capsule 90 capsule 3 Sig: Take 1 capsule by mouth daily before breakfast. 1/2 hr before meal. Madelaine Nath RN October 18, 2023 10:54 AM documented in this encounterK[facility]08-[facility]-2024 Telephone encounter Note * Telephone Encounter - Madelaine Nath RN - 10/18/2023 10:54 AM EDT The patient has been identified by name and date of : Yes Caregiver verified no other encounters exist for this prescription request: Yes Caregiver confirmed with patient/requestor that no other refills are due, in the near future, with this provider at this time: Yes The last office visit in the department: 09/01/2023 Does the patient have a future office visit with this provider/department: Yes 12/30/2023 Requested Prescriptions Pending Prescriptions Disp Refills omeprazole (PRILOSEC) 20 mg capsule 90 capsule 3 Sig: Take 1 capsule by mouth daily before breakfast. 1/2 hr before meal. Madelaine Nath RN October 18, 2023 10:54 AM [facility]07-26-2024 Telephone encounter Note* Telephone Encounter - Luis Enrique Caicedo APRN.CNP - 10/07/2023 2:11 PM EDT The following approved medication requests have been transmitted electronically. Requested Prescriptions Pending Prescriptions Disp Refills atorvastatin (LIPITOR) 20 mg tablet 90 tablet 3 Sig: Take 1 tablet by mouth once daily. Luis Enrique Caicedo APRN.CNP [facility]07-26-2024 Miscellaneous Notes* Telephone Encounter - Luis Enrique Caicedo APRN.CNP - 10/07/2023 2:11 PM EDT The following approved medication requests have been transmitted electronically. Requested Prescriptions Pending Prescriptions Disp Refills atorvastatin (LIPITOR) 20 mg tablet 90 tablet 3 Sig: Take 1 tablet by mouth once daily. Luis Enrique Caicedo APRN.CNP * Telephone Encounter - Lise Gardiner - 10/07/2023 1:06 PM EDT Patient has been identified by name and date of : Yes, Patient phones for refill(s): Requested Prescriptions Pending Prescriptions Disp Refills atorvastatin (LIPITOR) 20 mg tablet 90 tablet 3 Sig: Take 1 tablet by mouth once daily. Date of last office visit in primary care: 09/01/2023 Date of next office visit in primary care: 12/30/2023 Please advise. Thank you. Lise Gardiner. documented in this encounterK[facility]07-[facility]-2024 Telephone encounter Note * Telephone Encounter - Lise Gardiner - 10/07/2023 1:06 PM EDT Patient has been identified by name and date of : Yes, Patient phones for refill(s): Requested Prescriptions Pending Prescriptions Disp Refills atorvastatin (LIPITOR) 20 mg tablet 90 tablet 3 Sig: Take 1 tablet by mouth once daily. Date of last office visit in primary care: 09/01/2023 Date of next office visit in primary care: 12/30/2023 Please advise. Thank you. Lise Gardiner. [facility]06-20-2024 Instructions* Patient Instructions* Apryl Gorman APRN.CNP - 09/01/2023 9:58 AM EDT Get repeat fasting labs in 4-6 weeks Continue to take all medication as prescribed Watch salt and processed foods in the diet May use compression socks and elevate the legs when needed Follow up pending lab results or sooner as needed. documented in this encounterK[facility]06-20-2024 History of Present illness Narrative* Apryl Gorman APRN.BERNIE - 09/01/2023 9:40 AM EDT This is a 77 year old female who presents today with: Patient presents with: Acute Visit: bilat ankle swelling HISTORY OF PRESENT ILLNESS: Brianne Cochran is a 77 year old female. Patient presents with: Acute Visit: bilat ankle swelling Here in the office for express care follow up. Was seen in express care on 08/29/2023 for bilateralankle swelling. History of hypothyroidism, CMP, CBC, and TSH were ordered. TSH was elevated in March, recent labs revealed low TSH at 0.043. Currently taking Synthroid 100 mcg daily.Denies any difficulty swallowing, palpitations, or heat/cold intolerances. Lipids: Taking Lipitor 20 mg daily. Watching diet and staying active. Denies any leg pain. ALIN/Depression: Taking Prozac 40 mg daily. Symptoms well controlled with medication. Denies any increased sadness, anxiety, SI/HI. Osteoporosis: Fosamax 70 mg weekly. Taking Calcium PAST MEDICAL HISTORY: PAST MEDICAL HISTORY Diagnosis Date Adjustment disorder with depressed mood Breast calcifications 12/2016 Depression Iron deficiency anemia, unspecified Lateral sclerosis Migraine headache without aura <=1 per month as of May 2013 Myalgia and myositis, unspecified Osteoarthritis Spastic paresis (HCC) Unspecified hypothyroidism PAST SURGICAL HISTORY Procedure Laterality Date BREAST BIOPSY Left 12/16/2016 [facility]-Dr. Sandhu DELIVERY ONLY , low transverse x 2 HIP SURGERY HX Left 09/08/2022 Left, femur fracture. Dr. Benson PAST SURGICAL HISTORY OF cyst removed from ovaries ALLERGIES Acetaminophen-Codeine, Biaxin [Clarithromycin], Codeine, Naproxen, and Relafen [Nabumetone] MEDICATIONS Current Outpatient Medications Medication Sig levothyroxine (SYNTHROID) 100 mcg tablet Take 1 tablet by mouth once daily. FLUoxetine (PROZAC) 40 mg capsule Take 1 capsule by mouth once daily. meclizine 25 mg chewable tablet(s) CHEW AND SWALLOW 1 TABLET THREE TIMES DAILY NEEDED FOR DIZZINESS cyclobenzaprine (FLEXERIL) 5 mg tablet Take 1 tablet by mouth three times a day as needed. FLUoxetine (PROZAC) 40 mg capsule Take 1 capsule by mouth once daily. omeprazole (PRILOSEC) 20 mg capsule Take 1 capsule by mouth daily before breakfast. 1/2 hr before meal. alendronate (FOSAMAX) 70 mg tablet Take 1 tablet by mouth one time a week. atorvastatin (LIPITOR) 20 mg tablet Take 1 tablet by mouth once daily. oxyCODONE IR (ROXICODONE) 5 mg immediate release tablet Take 1 tablet by mouth as directed. D/C from [facility]; for HIP fracture (Patient not taking: Reported on 05/30/2023) senna-docusate (SENNA-S) 8.6-50 mg per tablet Take 1 tablet by mouth twice daily. triamcinolone (KENALOG) 0.025 % ointment Apply [...] depression, anxiety, or suicidal ideation. EXAM: BP 114/80 Pulse 83 Resp 16 Wt 61.7 kg (136 lb) SpO2 95% BMI 27.24 kg/m PHYSICAL EXAM: General Appearance: Well appearing, alert, in no acute distress, well-hydrated, well nourished.. Skin: Skin color, texture, turgor normal, no suspicious rashes or lesions. Head: Normocephalic, no masses, lesions, tenderness or abnormalities. Eyes: Anicteric sclera. Pupils are equally round and reactive to light. Extraocular movements are intact. . Neck: Supple, no adenopathy; thyroid symmetric, normal size, no bruits. Lungs: Lungs clear to auscultation. No wheezing, rhonchi, rales.. Heart: RRR without murmur, gallop, or rubs. No ectopy. Extremities: No deformities, edema, skin discoloration, clubbing or cyanosis. Good capillary refill. . Musculoskeletal: No joint swelling, deformity, or tenderness. Peripheral Pulses: Normal, Capillary refill <2secs, strong peripheral pulses, Pulses palpable. Neurologic: Gait normal. Reflexes normal and symmetric. Sensation grossly intact.. ASSESSMENT/PLAN: 1. Hypothyroidism, unspecified type - ICD9: 244.9, ICD10: E03.9 (primary diagnosis) - Instructed patient on importance of taking on an empty stomach either first thing in the morning or at bedtime. - Due to past lab trends will hold off on making medication adjustments, repeat labs in 4 weeks. Patient asymptomatic. - THYROID STIMULATING HORMONE - T4 FREE/FREE THYROXINE 2. Ankle edema, bilateral - ICD9: 719.07, ICD10: M25.471, M25.472 - Resolved - Instructed to watch salt and processed foods in the diet. - May use compression socks and elevate the legs as needed. 3. Hyperlipidemia, mixed - ICD9: 272.2, ICD10: E78.2 - Control undetermined, due for labs - Continue current medications - Counseled on healthy diet and regular exercise - LIPID PANEL BASIC 4. Anxiety with depression - ICD9: 300.4, ICD10: F41.8 - Stable, continue to take all medication as prescribed. 5. Osteoporosis, unspecified osteoporosis type, unspecified pathological fracture presence - ICD9: 733.00, ICD10: M81.0 - continue tx with alendronate (Fosamax) - Reviewed the need for Calcium and Vitamin D supplements and weight bearing exercise as tolerated Follow-up in 6 months or sooner pending test results. Discussed treatment plan and patient voices understanding. Patient's questions answered appropriately. Medications and potential side effects were discussed and patient voices understanding. Apryl Gorman APRN.BERNIE This note was partially generated using beModel voice recognition system. Note was reviewed for accuracy. There may be minor misspellings or grammar miscues with beModel voice recognition. documented [facility] encounterK[facility] Telephone encounter Note * Telephone Encounter - Mildred Le LPN - 08/30/2023 8:33 AM EDT Patient given results and verbalized understanding of instructions given. Appt is on and pt is aware. Mildred Le LPN [facility] Miscellaneous Notes* Telephone Encounter - Mildred Le LPN - 08/30/2023 8:33 AM EDT Patient given results and verbalized understanding of instructions given. Appt is on and pt is aware. Mildred Le LPN * Telephone Encounter - Jeny Cristobal APRN.CNP - 08/30/2023 7:12 AM EDT CBC normal CMP normal TSH is outside of normal (history of same) Patient has appt this Tuesday with Fernando Bingham) Please advise. Telephone encounter CC Fernando Wilkersonsamara FYI documented in this encounterK[facility]06-[facility] Telephone encounter Note * Telephone Encounter - Jeny Cristobal APRN.CNP - 08/30/2023 7:12 AM EDT CBC normal CMP normal TSH is outside of normal (history of same) Patient has appt this Tuesday with DoGerman Wilkersonsamara) Please advise. Telephone encounter CC Fernando Bingham FYI [facility] Work Phone: [phone]) 209-480306-17-2024 History of Present illness Narrative* Julio Sheppard MD - 08/29/2023 1:14 PM EDT Patient presents with: Edema: Bilateral ankle swelling x 4 weeks HPI: Patient reports bilateral lower leg edema for the last month. No known injury. Swelling increases throughout the day and improves overnight. Denies pain or pruritus. No significant change in back or leg pain. She does have discomfort in her left hip replacement. Denies chest pain, shortness of breath, palpitations. Medication compliance: Reports no recent change in medications. TSH was 33 in March. She has fatigue, constipation, and diminished memory. Denies temperature intolerance. Levothyroxine dose was increased to 100 mcg in March. She did not complete follow-up labs. She does not recall if she changed her dose. She had ER follow-up for dizziness in May but missed her routine follow-up in June (not rescheduled). PAST MEDICAL HISTORY Diagnosis Date Adjustment disorder with depressed mood Breast calcifications 12/2016 Depression Iron deficiency anemia, unspecified Lateral sclerosis Migraine headache without aura <=1 per month as of May 2013 Myalgia and myositis, unspecified Osteoarthritis Spastic paresis (HCC) Unspecified hypothyroidism MEDICATIONS: levothyroxine (SYNTHROID) 100 mcg tablet Take 1 tablet by mouth once daily. FLUoxetine (PROZAC) 40 mg capsule Take 1 capsule by mouth once daily. meclizine 25 mg chewable tablet(s) CHEW AND SWALLOW 1 TABLET THREE TIMES DAILY NEEDED FOR DIZZINESS cyclobenzaprine (FLEXERIL) 5 mg tablet Take 1 tablet by mouth three times a day as needed. FLUoxetine (PROZAC) 40 mg capsule Take 1 capsule by mouth once daily. omeprazole (PRILOSEC) 20 mg capsule Take 1 capsule by mouth daily before breakfast. 1/2 hr before meal. alendronate (FOSAMAX) 70 mg tablet Take 1 tablet by mouth one time a week. atorvastatin (LIPITOR) 20 mg tablet Take 1 tablet by mouth once daily. senna-docusate (SENNA-S) 8.6-50 mg per tablet Take 1 tablet by mouth twice daily. triamcinolone (KENALOG) 0.025 % ointment Apply [...] Take 0.5 capsules by mouth once daily.) oxyCODONE IR (ROXICODONE) 5 mg immediate release tablet Take 1 tablet by mouth as directed. D/C from [facility]; for HIP fracture (Patient not taking: Reported on 05/30/2023) ALLERGIES: ALLERGIES Allergen Reactions Acetaminophen-Codei* Unknown Biaxin [Clarithromy* Unknown Doesn't remember, was a long time ago Codeine unknown-long time ago Naproxen Rash Generalized, nonpruritic Relafen [Nabumetone] Unknown Doesn't remember VITALS: BP 140/84 Pulse 99 Temp 36.8 C (98.3 F) Resp 21 Wt 63 kg (138 lb 14.2 oz) SpO2 95% BMI 27.81 kg/m Last 4 Encounter Wt Readings: Date: Wt: 08/29/2023 63 kg (138 lb 14.2 oz) 05/30/2023 63 kg (139 lb) 01/05/2023 61.2 kg (135 lb) 10/04/2022 61.2 kg (135 lb) PHYSICAL EXAM: GEN: pleasant, no acute distress, alert. Ambulates with a walker. Accompanied by her . HEENT: PERRL, EOMI, MMM NECK: supple, HEART: regular rate, regular rhythm, no murmurs LUNGS: no wheezes, fine crackles left lower lung base, no increased WOB EXT: no clubbing, no cyanosis, bilateral 1+ pitting foot and ankle edema Latest Ref Rng 07/03/2021 01/05/2023 03/18/2023 TSH 0.270 - 4.200 mIU/L 2.250 8.930 (H) 33.800 (H) ASSESSMENT/PLAN: 1. Bilateral leg edema - ICD9: 782.3, ICD10: R60.0 (primary diagnosis) 2. Other specified hypothyroidism - ICD9: 244.8, ICD10: E03.8 Dependent edema. Very low suspicion for DVT, fracture, or cellulitis. Draw labs and follow-up with primary care. - COMPREHENSIVE METABOLIC PANEL - COMPLETE BLOOD COUNT AND DIFFERENTIAL - THYROID STIMULATING HORMONE Julio Sheppard MD documented in this encounterK[facility]06-04-2024 Telephone encounter Note * Telephone Encounter - Mandy Alexander MA - 08/16/2023 1:34 PM EDT Pharmacy request denied. Patient needs to contact office for refills. Mandy Alexander MA [facility]06[facility] Miscellaneous Notes* Telephone Encounter - Mandy Alexander MA - 08/16/2023 1:34 PM EDT Pharmacy request denied. Patient needs to contact office for refills. Mandy Alexander MA documented in this encounterK[facility]06-04-2024 Telephone encounter Note * Telephone Encounter - Luis Enrique Caicedo APRN.CNP - 08/16/2023 12:57 PM EDT The following approved medication requests have been transmitted electronically. Requested Prescriptions Pending Prescriptions Disp Refills levothyroxine (SYNTHROID) 100 mcg tablet 90 tablet 0 Sig: Take 1 tablet by mouth once daily. Luis Enrique Caicedo APRN.CNP [facility]06-04-2024 Miscellaneous Notes* Telephone Encounter - Luis Enrique Caicedo APRN.CNP - 08/16/2023 12:57 PM EDT The following approved medication requests have been transmitted electronically. Requested Prescriptions Pending Prescriptions Disp Refills levothyroxine (SYNTHROID) 100 mcg tablet 90 tablet 0 Sig: Take 1 tablet by mouth once daily. Luis Enrique Caicedo APRN.CNP * Telephone Encounter - Annetta Baig - 08/16/2023 12:12 PM EDT Patient has been identified by name and date of : Patient phones for refill(s): Requested Prescriptions Pending Prescriptions Disp Refills levothyroxine (SYNTHROID) 100 mcg tablet 90 tablet 0 Sig: Take 1 tablet by mouth once daily. Date of last office visit in primary care: 05/30/2023 Date of next office visit in primary care: Visit date not found Please advise. Thank you. Annetta Baig. documented in this encounterK[facility]06-04-2024 Telephone encounter Note * Telephone Encounter - Annetta Baig - 08/16/2023 12:12 PM EDT Patient has been identified by name and date of : Patient phones for refill(s): Requested Prescriptions Pending Prescriptions Disp Refills levothyroxine (SYNTHROID) 100 mcg tablet 90 tablet 0 Sig: Take 1 tablet by mouth once daily. Date of last office visit in primary care: 05/30/2023 Date of next office visit in primary care: Visit date not found Please advise. Thank you. Annetta Baig. [facility] Telephone encounter Note* Telephone Encounter - Mary Lou Mark OCCA - 08/10/2023 3:22 PM EDT TC to patient who is informed of below. SHIREEN Hardin [facility]05-29-2024 Miscellaneous Notes* Telephone Encounter - Mary Lou Mark OCCA - 08/10/2023 3:22 PM EDT TC to patient who is informed of below. SHIREEN Hardin * Telephone Encounter - Janette Piña LPN - 08/10/2023 2:04 PM EDT Attempted to reach spouse by phone without success. No voicemail set up. Janette Piña LPN * Telephone Encounter - Luis Enrique Caicedo APRN.CNP - 08/10/2023 11:35 AM EDT Please let the patient know that I have sent to [facility]. The following approved medication requests have been transmitted electronically. Requested Prescriptions Signed Prescriptions Disp Refills FLUoxetine (PROZAC) 40 mg capsule 5 capsule 0 Sig: Take 1 capsule by mouth once daily. Authorizing Provider: LUIS ENRIQEU CAICEDO APRN.CNP * Telephone Encounter - Janette Piña LPN - 08/10/2023 9:38 AM EDT Spouse called to request a short term on medication below. pt waiting on mail order to come. Pt is out of medication. Patient has been identified by name and date of : Yes, Provider Date 08/10/23 Time 9:39 am Spouse phones for refill(s): Requested Prescriptions Pending Prescriptions Disp Refills FLUoxetine (PROZAC) 40 mg capsule 5 capsule 0 Sig: Take 1 capsule by mouth once daily. Date of last office visit in primary care: 05/30/2023 Date of next office visit in primary care: Visit date not found Thank you. Janette Piña LPN. documented in this encounterK[facility]05-29-2024 Telephone encounter Note * Telephone Encounter - Janette Piña LPN - 08/10/2023 2:04 PM EDT Attempted to reach spouse by phone without success. No voicemail set up. Janette Piña LPN [facility] Telephone encounter Note* Telephone Encounter - Luis Enrique Caicedo APRN.CNP - 08/10/2023 11:35 AM EDT [facility] the [facility] know [facility] The following approved medication requests have been transmitted electronically. Requested Prescriptions Signed Prescriptions Disp Refills FLUoxetine (PROZAC) 40 mg capsule 5 capsule 0 Sig: Take 1 capsule by mouth once daily. Authorizing Provider: LUIS ENRIQUE CAICEDO APRN.CNP [facility]-29-[facility] Telephone encounter Note* Telephone Encounter - Janette Piña LPN - 08/10/2023 9:38 AM EDT Spouse called to request a short term on medication below. pt waiting on mail order to come. Pt is out of medication. Patient has been identified by name and date of : Yes, Provider Date 08/10/23 Time 9:39 am Spouse phones for refill(s): Requested Prescriptions Pending Prescriptions Disp Refills FLUoxetine (PROZAC) 40 mg capsule 5 capsule 0 Sig: Take 1 capsule by mouth once daily. Date of last office visit in primary care: 05/30/2023 Date of next office visit in primary care: Visit date not found Thank you. Janette Piña LPN. [facility] Miscellaneous Notes* Telephone Encounter - Luis Enrique Caicedo APRN.CNP - 06/07/2023 1:24 PM EDT The following approved medication requests have been transmitted electronically. Requested Prescriptions Pending Prescriptions Disp Refills levothyroxine (SYNTHROID) 100 mcg tablet 90 tablet 0 Sig: Take 1 tablet by mouth once daily. Luis Enrique Caicedo APRN.CNP * Telephone Encounter - Trish Quezada - 06/07/2023 1:18 PM EDT Patient has been identified by name and date of : Yes Patient phones for refill(s): Requested Prescriptions Pending Prescriptions Disp Refills levothyroxine (SYNTHROID) 100 mcg tablet 90 tablet 0 Sig: Take 1 tablet by mouth once daily. Date of last office visit in primary care: 05/30/2023 Date of next office visit in primary care: 07/07/2023 Please advise. Thank you. Trish Quezada. documented in this encounterK[facility]03-18-2024 History of Present illness Narrative* Apryl Gorman APRN.CNP - 05/30/2023 12:40 PM EDT This is a 77 year old female who presents today with: No chief complaint on file. HISTORY OF PRESENT ILLNESS: Brianne Cochran is a 77 year old female. No chief complaint on file. HOSPITAL/ER FOLLOW UP: Reason for visit: Dizziness Which facility: [facility] ER Date of visit: 05/25/2023 Diagnosis: Vertigo Testing done: Negative Asim-Hallpike. CBC and CMP relatively normal. Brain CT showed chronic involutional changes. EKG showed normal sinus rhythm. Treatment given: Cerumen, ear lavage. Prescription given for meclizine 25 mg chewable 3 times dailyas needed. Current symptoms: Mild improvement in dizziness since ER. Had one episode today when looking up. Has been taking Meclizine. Dizziness seems to be random and usually positional. Patient chest pain, palpitations, or LOC. PAST MEDICAL HISTORY: PAST MEDICAL HISTORY Diagnosis Date Adjustment disorder with depressed mood Breast calcifications 12/2016 Depression Iron deficiency anemia, unspecified Lateral sclerosis Migraine headache without aura <=1 per month as of May 2013 Myalgia and myositis, unspecified Osteoarthritis Spastic paresis (HCC) Unspecified hypothyroidism PAST SURGICAL HISTORY Procedure Laterality Date BREAST BIOPSY Left 12/16/2016 [facility]-Dr. Sandhu DELIVERY ONLY , low transverse x 2 HIP SURGERY HX Left 09/08/2022 Left, femur fracture. Dr. Benson PAST SURGICAL HISTORY OF cyst removed from ovaries ALLERGIES Acetaminophen-Codeine, Biaxin [Clarithromycin], Codeine, Naproxen, and Relafen [Nabumetone] MEDICATIONS Current Outpatient Medications Medication Sig cyclobenzaprine (FLEXERIL) 5 mg tablet Take 1 tablet by mouth three times a day as needed. levothyroxine (SYNTHROID) 100 mcg tablet Take 1 tablet by mouth once daily. FLUoxetine (PROZAC) 40 mg capsule Take 1 capsule by mouth once daily. omeprazole (PRILOSEC) 20 mg capsule Take 1 capsule by mouth daily before breakfast. 1/2 hr before meal. alendronate (FOSAMAX) 70 mg tablet Take 1 tablet by mouth one time a week. atorvastatin (LIPITOR) 20 mg tablet Take 1 tablet by mouth once daily. oxyCODONE IR (ROXICODONE) 5 mg immediate release tablet Take 1 tablet by mouth as directed. D/C from [facility]; for HIP fracture senna-docusate (SENNA-S) 8.6-50 mg per tablet Take 1 tablet by mouth twice daily. triamcinolone (KENALOG) 0.025 % ointment Apply [...] heat intolerance, polyuria, polydipsia and goiter NEURO: + Dizziness MOOD: Negative for depression, anxiety, or suicidal ideation. EXAM: BP 136/88 Pulse 90 Resp 16 Wt 63 kg (139 lb) SpO2 97% BMI 27.84 kg/m PHYSICAL EXAM: General Appearance: Well appearing, alert, in no acute distress, well-hydrated, well nourished. Skin: Skin color, texture, turgor normal, no suspicious rashes or lesions. Head: Normocephalic, no masses, lesions, tenderness or abnormalities. Eyes: Anicteric sclera. Pupils are equally round and reactive to light. Extraocular movements are intact. Ears: External ears normal, canals clear, + bilateral cerumen impaction noted, unable to visualize TMs. Cerumen very hard. Lungs: Lungs clear to auscultation. No wheezing, rhonchi, rales.. Heart: RRR without murmur, gallop, or rubs. No ectopy. Extremities: No deformities, edema, skin discoloration, clubbing or cyanosis. Good capillary refill. Peripheral Pulses: Normal, Capillary refill <2secs, strong peripheral pulses, Pulses palpable. Neurologic: Gait normal. Sensation grossly intact. ASSESSMENT/PLAN: 1. Hospital discharge follow-up - ICD9: V67.59, ICD10: Z09 (primary diagnosis) - Still having on going dizziness since discharge. 2. Vertigo - ICD9: 780.4, ICD10: R42 - Positional in nature - Cerumen impaction more than likely causing symptoms. 3. Bilateral impacted cerumen - ICD9: 380.4, ICD10: H61.23 - Use debrox ear drops and follow up with ENT. - DEBROX 6.5 % EAR DROPS - CONSULT TO ENT Follow-up if no improvement. Discussed treatment plan and patient voices understanding. Patient's questions answered appropriately. Medications and potential side effects were discussed and patient voices understanding. Apryl Gorman APRN.CNP This note was partially generated using beModel voice recognition system. Note was reviewed for accuracy. There may be minor misspellings or grammar miscues with beModel voice recognition. documented in this encounterK[facility]03-18-2024 Instructions* Patient Instructions* Apryl Gorman APRN.CNP - 05/30/2023 12:40 PM EDT Images from the original note were not included. Recommend consult with ENT Use the drbrox ear drops into both ears for the next 5 days to help soften ear wax May continue with the Meclizine as needed. Be mindful with position changes. Follow up if no improvement. Benign Paroxysmal Positional Vertigo (BPPV) What is BPPV? Benign Paroxysmal Positional Vertigo (BPPV) is an inner ear disorder in which changes to the position of the head, such as tipping the head backward, lead to sudden vertigo -- a feeling that the roomis spinning. Vertigo can vary in intensity from mild to severe and usually lasts only a few minutes. It may be accompanied by other symptoms, including dizziness lightheadedness a sense of imbalance nausea vomiting Anatomy of the right inner ear. Particle repositioning therapy moves the otoconia out of the semicircular canals and into the utricle where they dissolve naturally. BPPV is not a sign of a serious problem, and it usually disappears on its own within 6 weeks of thefirst episode. However, the symptoms of BPPV can be very frightening and may be dangerous, especially in older individuals. The unsteadiness associated with BPPV can lead to falls. About half of all people over age 65 experience an episode of BPPV, and falls are a leading cause of fractures in thisage-range. What causes BPPV? BPPV develops when calcium carbonate crystals, which are known as otoconia, shift into and become trapped within the semicircular canals (one of the vestibular organs of the inner ear that controls balance). The otoconia make up a normal part of the structure of the utricle, a vestibular organ nextto the semicircular canals. (see illustration to the right.) In the utricle, the otoconia may be loosened as a result of injury, infection, or age, and they land in a sac -- the utricle -- where they are naturally dissolved. However, otoconia in the semicircular canals will not dissolve. As a person s head position changes, the otoconia begin to roll around and push on the tiny hairs that line the semicircular canals. Those hairs act as sensors to give thebrain information about balance. Vertigo develops when the hairs are stimulated by the rolling otoconia. What head positions trigger BPPV? Movements that can trigger an episode of BPPV include rolling over or sitting up in bed, bending the head forward to look down, or tipping the head backward. In most people, only a single ear is affected by BPPV, although both ears may be involved on occasion. How is BPPV diagnosed and treated? With advances in medical technology, BPPV can easily be diagnosed and treated. The diagnosis can usually be made in the office based on medical history and a physical exam. Treatment also involves a short, simple in-office procedure known as the particle repositioning maneuver. (See addendum below.) How can I identify the affected side? Steps to determine affected side: Sit on bed so that if you lie down, your head hangs slightly over the end of the bed. Turn head to the right and lie back quickly. Wait 1 minute. If you feel dizzy, then the right ear is your affected ear. If no dizziness occurs, sit up. Wait 1 minute. Turn head to the left and lie back quickly. Wait 1 minute. If you feel dizzy, then the left ear is your affected ear. Right position Left position How successful is the treatment? A single particle repositioning procedure is effective in treating about 80% to 90% of cases of BPPV. Additional exercise or repositioning maneuvers may be needed if symptoms persist. Can BPPV recur? If so, what can I do? A new episode of BPPV can develop after successful treatment -- on average there is a 15 percent rate of recurrence each year. However, it may be possible to treat recurrent BPPV at home by performing a series of movements at the time an episode occurs. Patients will receive information on ways to handle recurrences on their own or they can work with a physical therapist to develop a plan. In general, if you wake up with positional vertigo, slowly move into the [id number] position andwait for a minute. Next, slowly move into a face-down position and slide to the foot of the bed. Keep your head down until you reach the end of the bed and are kneeling or standing on the floor. Slowly bring your head backward into an upright position. Hold on to the bed at all times. Another method is to sit toward the foot of the bed, leaving enough room to lay back with your headresting comfortably at the end of the bed, slightly extended. Be careful not to overextend your neck, as this may aggravate existing neck problems. If your symptoms are severe, you may need assistance to complete the maneuver. Follow the same steps as described in the boxed instructions on the next page. Without treatment, the symptoms of BPPV may worsen. However, with time, the otoconia dissolve on their own, which is usually within 6 weeks. Until the time the otoconia dissolve on their own, the number and severity of episodes may be reduced simply by paying careful attention to head position. In addition, anti- motion sickness drugs can be given to control nausea. However, before drugs are taken, it is usually best to try the particle repositioning procedure first. It is a very safe and rapid way to relieve symptoms and reduce the chance for falls. Medications should not be taken for a long period of time. ADDENDUM Particle repositioning procedure: [id number] instructions The particle repositioning procedure takes about 15 minutes to complete and involves a series of physical movements that change the position of the head and body. These actions shift the otoconia outof the semicircular canals and back into their proper location in the utricle. The particle repositioning procedure begins with the patient is sitting up and then lying down on a treatment table. Theprocedure is very easy to perform. Patients should wear comfortable clothing that will allow them to move freely. Hold each of the following positions for 1 to 2 minutes. Step 1: Turn your head toward your affected ear. Step 2: Lay back quickly. Hold. Step 3: Keep your head back against the bed and turn it toward the good ear. Hold. Step 4: Roll onto your side with your good ear down. Your nose should be turned toward the floor. Hold. Step 5: Sit up, keeping your chin tucked in toward your shoulder. Hold. When you end, you should besitting over the side of your bed so your feet touch the floor. Step 6: Follow your post-particle repositioning instructions. BPPV: Glossary of Terms Semicircular canals: These structures act like a gyroscope, with canals positioned in three dimensions -- upward, downward, and horizontal. Together, the canals send signals to the brain about the rotation/positioning of the head (for example, when you bend over or spin around.) Cupula: Detects the flow of fluid within the semicircular canals. The flow of fluid gives the body a sense of motion. Utricle: An organ located in the inner ear that helps control balance. The utricle contains hair cells, which are covered with otoconia. The otoconia sway with gravity, sending signals to the brain about the position of the head and body (upright, tilted, etc). Otoconia: The tiny calcium crystal particles that become dislodged from within the utricle (where they can dissolve) and move into the semicircular canals (where they can t dissolve). Cochlea: The 'snail-shell' sense organ of the inner ear that translates sound into nerve impulses and sent to the brain. References Linda BT, Lukasz LB. Jonel ALEMAN. Peripheral Vestibular Disorders. In: [facility], Head and Neck Surgery, 3-Volume Set. Soni; 2014. Jose Carlos Davila. Benign Paroxysmal Positional Vertigo (BPPV): History, Pathophysiology, Office Treatment and Future Directions. International Journal of Otolaryngology. 2011;2011:540043. Donna JS, Teressa DS. Clinical practice. Benign paroxysmal positional vertigo. N Engl J Med. 2013May 31;370(12):1138-47. Maldonado Cabrales DD, Kodak Paredes. The Head and Neck. In: Maldonado Cabrales DD, Althea Wall, Kodak VARELA. eds. DeGericksonin s Diagnostic Examination, 10e. [place], [place]: [facility]; 2015. Copyright 5806-7451 [facility]. All rights reserved This information is provided by the [facility] and is not intended to replace the medical advice of your doctor or health care provider. Please consult your health care provider for advice about a specific medical condition. For additional health information, please contact the Center for Consumer Health Information at the [facility] or toll-free extension [phone]. If you prefer, you may visit [email or web address] or [email or web address]. This document was last reviewed on: 2014 documented in this encounterKettering Health [facility]03-13-2024 Discharge summary Author Edmundo Judd [facility] May 25, 2023 5:21pm Note Date/Time May 25, 2023 1:1 5pm [facility] Medical Records Department [address] [place] [address] Emergency Department Summary 05/25/23 MR#: [id number] Acct: [id number] Name: BRIANNE COCHRAN Ricardo Rep #:[id number] : 1945 77 From: Carroll Weaver MD PCP: Dr. Vera Pompa MD Status:RE G ER Location: ED ADDENDUM by Dr. Edmundo Judd MD on 05/25/23 at 1721 Patient endorsed to me by Dr. Ramone Weaver to reassess the patient after irrigation of her ears for cerumen impaction. RN reports that she was able to get a large chunk out of 1 ear, but not the other as it is too deep. Upon repeat examination, patient is feeling well, and she and her are agreeable to discharge. She was able to stand without difficulty. At this point in time, I feel she can be discharged to follow-up with her primary care provider and that she does not require observation or admission at this time. Patient and her are agreeable to the plan. Disposition is discharged home in stable condition. 05/25/23 1721<Electronically signed by Edmundo Judd MD> Cosigner Signature (if applicable): cc: Dr. Vera Pompa MD ~* Signed HPI History of Present Illness Chief Complaint: Dizziness Informant: patient and spouse/S.O. Onset/Context/Timing Onset: Today and Yesterday Context: Gradual Onset Timing: Continuous Current Severity: Mild Maximum Severity: Mild Narrative Narrative: 77-year-old female history of anemia, hypertension and A-fib. No prior stroke or mini stroke. No history of vertigo. Says since yesterday she has had at times room spinning dizziness. Denies any specific headaches. No falls or headtrauma. Does not believe she is on any blood thinners. She has chronic upper and lower extremity weakness from a underlying neurological condition. She was diagnosed by neurologist at [facility] 5 to 10 years ago. But denies any new changes to her arms or legs. No worsening weakness or numbness. Prior similar symptoms: No Recent Illness/Hospitalization: No PFSH PFS Medical History Anxiety and depression Chronic anemia Closed right hip fracture Fibromyalgia GERD (gastroesophageal reflux disease) HLD (hyperlipidemia) Hypertension Hypothyroid Migraines Non-smoker Obesity Osteoporosis PAF (paroxysmal atrial fibrillation) Paroxysmal atrial fibrillation Sleep apnea Syncope T12 compression fracture Home Medications alendronate 70 mg tablet 70 mg PO UD osteoporosis 09/07/22 [History Last Taken Unknown] atorvastatin 20 mg tablet 20 mg PO QHS HLD 09/07/22 [History Last Taken 09/09/22] fluoxetine 40 mg capsule 40 mg PO DAILY depression 09/07/22 [History Last Taken 06/30/23] levothyroxine 75 mcg tablet 75 mcg PO DAILY thyroid 09/07/22 [History Last Taken 09/10/22] omeprazole 20 mg capsule,delayed release 20 mg PO DAILY GERD 09/07/22 [History Last Taken 09/10/22] calcium carbonate 200 mg calcium (500 mg) chewable tablet 500 mg (2.5 x 200 mg calcium (500 mg)) PO TIDCM supplement #30 tabs 09/10/22 [Rx Last Taken 09/10/22] oxycodone 5 mg tablet 5 mg PO Q6H PRN PRN Pain Score 1-10 7 days #28 tabs 09/28/22 [Rx Last Taken Unknown] sennosides 8.6 mg-docusate sodium 50 mg tablet (Stool Softener-Stimulant Laxative) 2 tab PO BID 30 days #120 tabs 09/28/22 [Rx Last Taken Unknown] meclizine 25 mg chewable tablet (Antivert) 25 mg PO TID PRN dizziness #14 tabs 05/25/23 [Rx Last Taken Unknown] Allergy/AdvReac Type Severity Reaction Status Date / Time codeine Allergy Unknown Verified 05/25/23 12:49 codeine phosphate AdvReac Unknown Verified 05/25/23 12:49 [From Tylenol-Codeine #3] nabumetone [From Relafen] AdvReac Unknown Verified 05/25/23 12:49 naproxen AdvReac Unknown Verified 05/25/23 12:49 Family History Mother Cancer Father Cancer Surgical History H/O ovarian cystectomy History of section History of total right hip replacement S/P kyphoplasty S/P ORIF (open reduction internal fixation) fracture S/P ORIF (open reduction internal fixation) fracture Social History household members: spouse Smoking Status: Never smoker alcohol intake: never substance use type: does not use ROS ROS ED ROS Narrative Dizziness. Otherwise denies recent illness. Review of Systems ROS Unobtainable: Denies due to encephalopathy Constitutional Constitutional ED: Denies chills or fever(s) Eyes Eyes: Denies blurry vision ENT ENT ED: Denies ear pain Cardiovascular Cardiovascular: Denies chest pain or palpitations Respiratory/Chest Respiratory/Chest: Denies cough or dyspnea Gastrointestinal Gastrointestinal: Denies abdominal pain, diarrhea, nausea or vomiting Genitourinary Genitourinary ED: Denies dysuria or hematuria Musculoskeletal Musculoskeletal: Denies arthralgias Integumentary Denies abscess Neurologic Neurologic: Denies headache(s) Psychiatric Psychiatric: Denies anxiety or depression Endocrine Endocrinology: Denies cold intolerance Hematologic/Lymphatic Hematologic/Lymphatic: Reports none Allergic/Immunologic Allergic/Immunologic ED: Denies mouth swelling, tongue swelling or urticaria EXAM Physical Exam Narrative Exam Narrative: Well-appearing 77-year-old female. Vital signs stable afebrile. Pulse ox 100% on room air no signs hypoxia. H EENT exam pupils are reactive light extra motions are intact. No facial droop. Normal speech. No trauma to her head or scalp. Bilateral cerumen in both ear canals. Neck nontender. Lungs clear. Heart regular rhythm rate about 95 no murmur. Chest wall and ribs nontender. Abdomen soft nontender. Normal bowel sounds no peritoneal signs. Moving all 4 extremities. 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 Dorsi plantarflexion intact. Fingertipto nose within normal limits. She can raise either leg off the bed. She has generalized upper and lower extremity weakness but it is her baseline. Const Vital Signs: 05/25/23 12:49 05/25/23 14:10 05/25/23 14:20 Temperature 96.8 F L Temperature Source Temporal Pulse Rate 96 93 88 Respiratory Rate 16 32 H 16 Blood Pressure 153/78 H Blood Pressure Mean 103 Pulse Ox 100 Oxygen Delivery Method Room Air 05/25/23 14:30 05/25/23 14:40 05/25/23 14:50 Temperature Temperature Source Pulse Rate 90 88 91 Respiratory Rate 17 20 H 17 Blood Pressure Blood Pressure Mean Pulse Ox Oxygen Delivery Method 05/25/23 15:00 05/25/23 15:10 05/25/23 15:20 Temperature Temperature Source Pulse Rate 92 94 97 Respiratory Rate 15 21 H 32 H Blood Pressure 158/79 H Blood Pressure Mean 103 Pulse Ox Oxygen Delivery Method Positive well nourished and well developed; Negative for obese, cachectic, contractures or unkempt General Appearance ED: well developed and NAD; Negative for unkempt, cachectic, contractures, cyanotic, diaphoretic or pallor Nutritional Appearance: Negative for cachectic or obese HEENT Reports moist mucous membranes; Denies TM's clear or dry mucous membranes HEENT Narrative: Bilateral earwax. Negative for trauma or tenderness Tympanic Membrane ED: Negative for TM's clear Mouth ED: No dry mucous membranes Mouth: No dry mucous membranes Eyes PERRL and EOMs intact bilaterally General Eye ED: Negative for pale conjunctiva, scleral icterus or other Neck no lymphadenopathy, supple and no JVD General: Negative for tenderness Lymph Lymphatic: Negative for other Chest Wall inspection of chest normal and palpation of chest normal Chest: Negative for other Resp normal respiratory effort and clear to auscultation bilaterally Effort and Inspection: Negative for retractions Auscultation: Negative for rales, rhonchi or wheezes Cardio regular rate, regular rhythm, S1 normal heart sound, S2 normal heart sound and no murmurs Palpation: Negative for palpable S3 Rate: Negative for bradycardia Rhythm: Negative for abnormal rhythm GI normal to inspection, nondistended, normoactive bowel sounds, non-tender, non-distended and no masses Inspection: Negative for abdominal distention Auscultation: normoactive bowel sounds Palpation: soft; Negative for tender or guarding Bladder / Kidney Exam: No other Back/Spine no CVA tenderness General Back: Negative for CVA tenderness Cervical Spine: Negative for cervical spine tenderness Thoracic Spine / Upper Back: Negative for thoracic spinal tenderness Lumbar Spine / Lower Back: Negative for lumbar spinal tenderness Extremity normal to inspection General Extremety ED: Negative for edema or tenderness General Extremity: Negative for edema Neuro oriented x3 and CN's II-XII intact bilaterally Sensorium / Orientation: alert; Negative for orientation impaired, lethargic or stuporous Motor Exam: strength 5/5 throughout Psych mental status grossly normal Appearance: Negative for unkempt Attitude: No agitated Mood & Affect: Negative for depressed, anxious or tearful Skin no rashes or lesions noted and no wounds General Skin Exam: elasticity normal; Negative for jaundice or pallor Lesions: No lesion noted Rashes: No rashes noted Trauma: Negative for abrasion Wounds: Negative for wounds noted MDM MDM MDM Narrative Medical decision making narrative: 77-year-old female with room spinning dizziness. Exam is basically unremarkable. Negative Hallpike. She does have bilateral cerumen impactions. CAT scan and labs are pending. Repeat exam at 3:18 PM patient doing well. No significant change. Awaiting ears to be irrigated. Again negative Hallpike. Normal neurologic exam. We havediscussed her test results. Nurses are going to irrigate her ears. She will bechecked out to the afternoon physician. I have written up ongoing instructions and a prescription for Antivert to be treated as vertigo. History & Record Review Discussion w/independent historian: Patient Additional record(s) reviewed:: Prior inpatient record, Prior outpatient record,Prior ED visit, Prior labs and No prior records Lab Data Attestation: I reviewed the patient's lab results. Lab results narrative: CBC is unremarkable with a white count of 7. H&H 12 and 39. Platelets 301. Chemistries show a gap of 9. BUN 25 creatinine 0.7. Glucose 84. Labs: Laboratory Results - last 24 hr 05/25/23 13:51 WBC 7.4 RBC 4.06 L Hgb 12.5 Hct 39.2 MCV 96.6 MCH 30.8 MCHC 31.9 L RDW Std Deviation 43.7 RDW Coeff of Serafin 12.3 Plt Count 301 MPV 9.8 Immature Gran % (Auto) 0.300 Neut % (Auto) 57.4 Lymph % (Auto) 25.8 [place] % (Auto) 9.6 Eos % (Auto) 5.8 H Baso % (Auto) 1.1 H Absolute Neuts (auto) 4.2 Absolute Lymphs (auto) 1.91 Nucleated RBC % 0 Sodium 142 Potassium 4.0 Chloride 110 H Carbon Dioxide 23.0 Anion Gap 9 BUN 25 H Creatinine 0.76 Estim Creat Clear Calc 50.10 Est GFR (MDRD) Af Amer 96 Est GFR (MDRD) Non-Af 79 BUN/Creatinine Ratio 33.0 H Glucose 84 Calcium 9.0 Radiography Diagnostic Testing: Clinical Impression(s) from Imaging Studies Brain CT 05/25/23 14:02 IMPRESSION: Chronic involutional changes of the brain. Electronically Signed: Ha Stephen MD at 14:20 EDT , Rhythm Strip Rhythm Strip: Sinus Rhythm Rate: 88 Ectopy: None EKG Initial EKG: Attestation: I personally reviewed and interpreted this EKG as follows: Interpretation: Sinus Rhythm and No Acute Injury Pattern Comments: Normal sinus rhythm rate 88 no acute signs of OK, ischemia or dysrhythmia. Discharge Plan Triage Chief Complaint: Dizziness ED Provider: Carroll Weaver Dx/Rx/DC Orders Clinical Impression: Dizziness, Vertigo Instructions: ED Vertigo, Unspecified Prescriptions: New meclizine [Antivert] 25 mg tablet,chewable 25 mg PO TID PRN (Reason: dizziness) Qty: 14 0RF No Action fluoxetine 40 mg capsule 40 mg PO DAILY atorvastatin 20 mg tablet 20 mg PO QHS alendronate 70 mg tablet 70 mg PO UD Rx Instructions: weekly. omeprazole 20 mg capsule,delayed release(DR/EC) 20 mg PO DAILY levothyroxine 75 mcg tablet 75 mcg PO DAILY calcium carbonate 200 mg calcium (500 mg) Tablet,Chewable 500 mg PO TIDCM Qty: 30 0RF sennosides-docusate sodium [Stool Softener-Stimulant Laxat] 8.6-50 mg Tablet 2 tab PO BID 30 Days Qty: 120 0RF oxycodone 5 mg Tablet 5 mg PO Q6H PRN PRN (Reason: Pain Score 1-10) 7 Days Qty: 28 0RF Primary Care Provider: Vera Pompa Referrals: Vera Pompa MD [Primary Care Provider] - 3-5 Days Activity Restrictions/Additional Instructions: This may be secondary to vertigo which is where your balance center is off. Youcan use Antivert to help improve those symptoms. You can use it up to 3 times aday as needed. If you do not need it you need to take it at all. If not improving follow-up your primary care physician. Disposition Disposition: Home, Self Care What to do if you have Problems For any increased pain, shortness of breath, bleeding, nausea or vomiting, chestpain, or any unexpected problems, contact your Primary Care Provider. Call [facility] ([phone]) or report to the closest Emergency Room. Call 911 if necessary. 05/25/23 7170 <Electronically signed by Carroll Weaver MD> Cosigner Signature (if applicable): CC: Dr. Vera Pompa MD ~ Signed [facility] Work Phone: 1(412) 261-121703-13-2024 History of Present illness Narrative* Julio Sheppard MD - 05/25/2023 12:39 PM EDT [facility] Care Triage Note: [facility] with complaint of dizziness the last 2 days. She does not feelnear syncopal but feels spinning, especially when she turns her head. Denies injury, ear pain, or regular issues with vertigo (EMR shows PT referral for vertigo in 2017). She ambulates with a walker,no facial droop. She will go to the ER for further evaluation of vertigo. [facility] in this [facility]01-25-2024 Miscellaneous Notes* Telephone Encounter - Vera Pompa MD - 04/07/2023 4:35 PM EST OK to refill as ordered Vera Pompa MD * Telephone Encounter - Carrie Villalta MA - 04/07/2023 4:04 PM EST HEMANT: 01/05/23 with AT NOV: 07/07/23-6 month F/U with AT Last refill: 04/05/22 With 270 and 1 refills Carrie Villalta MA * Telephone Encounter - Bekah Goff - 04/07/2023 3:42 PM EST Patient has been identified by name and date of : Yes, Provider Dr. Pompa Date 04/07/2023 Time 3:45 Spouse phones for [...] Thank you. Bekah Goff. documented in this [facility]11-17-2023 Miscellaneous Notes* Telephone Encounter - Madelaine Nath RN - 01/28/2023 8:46 AM EST Pt called and is notified of providers results and instructions. Pt voices understanding. Madelaine Nath RN * Telephone Encounter - Luis Enrique Caicedo APRN.CNP - 01/28/2023 8:38 AM EST Please the patient know that her cologuard testing was normal. This screening is valid for three years. Luis Enrique Caicedo APRN.CNP documented in this [facility]10-26-2023 Miscellaneous Notes* Telephone Encounter - Vera Pompa MD - 01/06/2023 4:58 PM EDT Already addressed in other note Vera Pompa MD documented in this [facility]10-25-2023 Instructions* Patient Instructions* Apryl Gorman APRN.CNP - 01/05/2023 1:19 PM EDT Get labs completed Continue to take all medication as prescribed. Recommend considering another round of physical therapy if needed Cologuard stool tesitng will be mailed to your home. Flu vaccine given today, may get covid booster or RSV vaccine in the future. Follow up in 6 months. documented in this [facility]10-25-2023 History of Present illness Narrative* Apryl Gorman APRN.CNP - 01/05/2023 1:00 PM EDT This is a 77 year old female [...] Procedure Laterality Date BREAST BIOPSY Left 12/16/2016 [facility]-Dr. Sandhu DELIVERY ONLY , low transverse x [...] tablet by mouth as directed. D/C from [facility]; for HIP fracture senna-docusate (SENNA-S) 8.6-50 mg [...] effects were discussed and patient voices understanding. Apryl Gorman APRN.CNP This note was partially generated using beModel voice recognition system. Note was reviewed for accuracy. There may be minor misspellings or grammar miscues with beModel voice recognition. documented in this encounterK[facility]10-16-2023 Miscellaneous Notes* Telephone Encounter - Apryl Gorman APRN.CNP - 12/27/2022 3:13 PM EDT The following approved medication requests have been transmitted electronically. Requested Prescriptions Signed Prescriptions Disp Refills omeprazole (PRILOSEC) 20 mg capsule 90 capsule 3 Sig: Take 1 capsule by mouth daily before breakfast. 1/2 hr before meal. Authorizing Provider: APRYL GORMAN APRN.CNP documented in this encounterK[facility]09-28-2023 Miscellaneous Notes* Telephone Encounter - Vera Pompa MD - 12/09/2022 2:25 PM EDT OK to refill as ordered Vera Pompa MD * Telephone Encounter - Lisa Fairchild Ma - 12/09/2022 1:52 PM EDT Last OV: 10/04/22 Next OV: 01/06/23 Last Rx: 10/23/21 #12 w/3. Please send Rx in as I believe this was sent in, incorrectly by the person below. Lisa Fairchild Ma * Telephone Encounter - Ayaz Mayer - 12/09/2022 1:35 PM EDT Patient has been identified by name and [...] and advise. Ayaz Mayer documented in this encounterK[facility]09-20-2023 Discharge summary Author Chhaya Martinez [facility] December 01, 2022 2:17pm Note Date/Time December 01, 2022 2:17pm [facility] Physical Therapy [facility] [address] [place] [address] [address] [place] [address] / REHABILITATION SERVICES DISCHARGE SUMMARY MR#: [id number] Acct: [id number] Name: BRIANNE COCHRAN Rep #: [id number] : 1945 77 From: Chhaya Huggins Referring Dr.: Dr. Odilon Rodríguez MD Status: REG RCR Insurance: [employer] MEDICARE PPO SELF PAY INSURANCE Discharge Summary D/C summary: It has been my pleasure to treat BRIANNE COCHRAN referred by Dr. Odilon Rodríguez MD,with the diagnosis of Left Hip Fracture for a total of 17 visit(s). Discharge Date: Please see the following information for a summary of their discharge status. Subjective Subjective: Patient reports that she was using a walker prior to the fall- she is helping make the meals again. Patient reports that she feels that she is backto her baseline. She has intermittent pain in the leg abdi when she sits in the car. She goes back to see the MD in Dec or January- and she also has a primarycare doctor too. She had a bone density scan. She feels that she is ready to continue the exercises at home. Pain Left hip: Pain Intensity (Out of 10): 2 Overall Improvement % Improvement: 100 Objective Objective/Function: Posture: FH, RS- can correct with verbal and tactile cues but does not maintain Gait: slightly antalgic- rollator- good zion- safe- >300 feet HR/TR: able with UE A Balance: weight shift but unable to SLS ROM: WFL in all planes Strength: Core: fair, Hip: Flexion: 4/5, Extn: 4/5, Abd: 4+/5, Add: 4+/5 Knee: 4+/5, Ankle: 4+/5 Flex: HS: severe, Gastroc: mod Goals Goal 1:: Patient will be I with HEP and progression Goal Progress: Goal Met Goal 2:: Patient will ambulate >300 feet with LRD Goal Progress: Goal Met Goal 3:: Patient will sit to stand 10x in 30 sec Goal Progress: Progressing Goal 4:: Patient will report 80% improvement Goal Progress: Goal Met Plan Plan: 12/01/22: Discharge to I HEP- encouraged her to continue HEP. 11/03/22: Continue 2x a week 4 weeks. Focus on functional mobility- gait, LE strength, endurance. HEP Reviewed from TCU- educated on importance of movement and NOT sitting all day D/C Information d/c sentence: If there are questions or concerns regarding this patient's physical therapy, please feel free to call me at [phone]. Thank you for the referral of thispatient. Sincerely, Chhaya Martinez DPT Balance/Gait/Functional tests Balance/Special Test Scores Lower Extremity Functional Score: 28 30 Second Chair Rise Test Seconds: 7 Improvement % Improvement: 100 <Electronically signed by Chhaya Martinez DPT> 12/01/22 4572 CC: Dr. Vera Pompa MD; Dr. Odilon Rodríguez MD ~ ELR Signed [facility] Work Phone: 1(959) 581-390808-28-2023 History of Present illness Narrative* Mel Ye MA - 11/08/2022 12:21 PM EDT POPULATION HEALTH NAVIGATION OUTREACH Action/ Due: colonoscopy, mammogram (active order) HCC GAPS: G83.9 - Paralysis, unspecified - [id number] Last Billed 06/22/2021
F33.9 - Major depressive disorder, recurrent episode (HCC) - [id number] Last Billed 12/24/2021
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
F33.9 - Major depressivedisorder, recurrent episode (HCC) - [id number] Last Billed 12/24/2021
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
Care gaps/appts to address: Well exam COLORECTAL CANCER SCREENING MAMMOGRAM Outcomes: Spoke to pt- she is currently admitted to [facility] for a fall- will call upon discharge to [facility] follow up Patient Identified by Name and : YES, via phone Outreach Outcome/Action Spoke to patient / parent / legal guardian: Patient will return the call or ask for return call Did you use a PCP flex slot to schedule this appointment? N/A Reason for Outreach HCC or suspected condition Payer: Payor: [email or web address] MEDICARE / Plan: [employer] MEDICARE PPO / Product Type: PPO / [...] done MAMMOGRAM due on 06/24/2022 Navigation Signature: Madyson Perry MA September 16, 2022 10:22 AM documented in this encounterK[facility]06-30-2023 Discharge summary Author Luis Ashley [facility] September 10, 2022 10:16am Note Date/Time September 10, 2022 10:1 5am [facility] Medical Records Department [address] [place] [address] Discharge Summary 09/10/22 1015 MR#: [id number] Acct: [id number] Name: BRIANNE COCHRAN Rep #:[id number] : 1945 76 From: Luis Ashley DO PCP: Dr. Vera Pompa MD Status:AD M IN Location: [facility] [id number] Providers Date of Admission: 09/07/22 Primary Care Physician: Dr. Vera Pompa MD Consultations 09/07/22 21:00 Consult: Orthopedics Routine Consulting Provider: Saúl Manriquez Reason for Consult: Hip fracture, fall EMERGENT Consult: No MD Notified: Yes Date Notified: 09/07/22 Time Notified: 19:17 Method of Notification: ED Physician Initiated Reason For Visit: FALL, L HIP FRACTURE Diagnosis Discharge Diagnosis (1) Hip fracture: Status: Acute Code(s): S72.009A - Fracture of unspecified part of neck of unspecified femur, initial encounter for closed fracture Qualifiers: Encounter type: initial encounter Fracture type: closed Laterality: left Qualified Code(s): S72.002A - Fracture of unspecified part of neck of leftfemur, initial encounter for closed fracture Plan: Left femoral neck fracture. PT/OT following operative intervention. CM consulted for discharge planning. 25 [place] D level 81.1 09/08: treatment of intertrochanteric hip fracture with intramedullary nail left femur (2) Acute blood loss anemia: Status: Acute Code(s): D62 - Acute posthemorrhagic anemia Plan: Hg dropped from 11.7 to 6.8 Transfuse and monitor Plan Acute Urinary Tract Infection: ruled out. DC CTX. UCx positive, but only 0-5 WBCs. No treatment indicated at this time. Elevated BP without hypertensive diagnosis: resolved. Significantly elevated BP upon presentation, likely pain related, will continue closely monitor and add regimen if appropriate, as needed IV hydralazine in interim. Chronic conditions: * Hypothyroidism: We will continue patient on levothyroxine regimen. * Hyperlipidemia: We will continue patient on statin therapy. * History remote PAF: Patient not on any rate or rhythm agent, not antic oagulated possibly secondary to high fall risk, noted history remotely, most recent echocardiogram noted 2012 but again she has had no recurrence, echo with normal LV size, LV systolic function normal, EF 55%, mild SANKET, mild TVI. * Obesity: Weight loss and lifestyle changes encouraged. * GERD: We will continue patient home PPI. * Chronic normocytic anemia: Admission hemoglobin 11.7, MCV 94.7, baseline hemoglobin appears primarily 10-11 although most recent prior noted 03/17/2016 13.2, has vacillated over the years, will continue to trend. * Anxiety and depression: We will continue patient home fluoxetine home regimen. DVT prophylaxis: SCDs CODE status: Full Discharged to TCU. Continue to monitor H/H. Medications at Discharge Home Medications alendronate 70 mg tablet 70 mg PO UD osteoporosis 09/07/22 atorvastatin 20 mg tablet 20 mg PO QHS HLD 09/07/22 fluoxetine 40 mg capsule 40 mg PO DAILY depression 09/07/22 levothyroxine 75 mcg tablet 75 mcg PO DAILY thyroid 09/07/22 omeprazole 20 mg capsule,delayed release 20 mg PO DAILY GERD 09/07/22 calcium carbonate 200 mg calcium (500 mg) chewable tablet 500 mg (2.5 x 200 mg calcium (500 mg)) PO TIDCM #30 tabs 09/10/22 enoxaparin 40 mg/0.4 mL subcutaneous syringe 40 mg (0.4 mL) subcut 0600 #4 mL 09/10/22 melatonin 3 mg tablet 3 mg PO QHS PRN PRN Insomnia #0 tabs 09/10/22 nystatin 100,000 unit/gram topical powder (Nyamyc) 1 applic topical BID #0 grams09/10/22 oxycodone 5 mg tablet 5 mg PO Q6H PRN pain 3 days #12 tabs 09/10/22 sennosides 8.6 mg-docusate sodium 50 mg tablet (Stool Softener-Stimulant Laxative) 2 tab PO BID #0 tabs 09/10/22 Hospital Course Operations - (left hip IM nail. ) Summary of Care Provided Minutes Spent on Discharge: 32 Weight / BMI Weight Weight: 63.2 kg Body Mass Index (BMI) 27.3 ABG / Lab / Microbiology Data 09/10/22 05:45 09/09/22 06:00 Laboratory: Laboratory Results - last 24 hr 09/08/22 05:35: Crossmatch See Detail 09/10/22 05:45: WBC 9.8, RBC 2.22 L, Hgb 6.8 L, Hct 21.5 L, MCV 96.8, MCH 30.6, MCHC 31.6 L, RDW Std Deviation 47.0 H, RDW Coeff of Serafin 13.2, Plt Count 214, MPV9.9 Microbiology: Microbiology 09/07/22 18:25 Urine Catheter - Encinas Urine Culture - Final Escherichia coli Meaningful Use Info Meaningful Use Diagnoses (Choose all that apply): None applicable Discharge Plan Admission Admit Date/Time: 09/07/22 19:15 Primary Reason for Your Visit: left hip fracture Attending Provider: Luis Ashley Primary Care Provider: Vera Pompa Consulting Providers: Yessenia Andres; Saúl Manriquez Instructions Additional Instructions / Restrictions: SCDs while in bed. Continue enoxaparin for 30 days once it started on 09/12. Discharge Orders/Prescriptions Prescriptions: New calcium carbonate 200 mg calcium (500 mg) Tablet,Chewable 500 mg PO TIDCM Qty: 30 0RF enoxaparin 40 mg/0.4 mL Syringe 40 mg subcut 0600 Qty: 4 0RF Rx Instructions: start 09/12/22 melatonin 3 mg Tablet 3 mg PO QHS PRN PRN (Reason: Insomnia) Qty: 0 0RF nystatin [Nyamyc] 100,000 unit/gram Powder 1 applic topical BID Qty: 0 0RF Protocol: *Topical Application Instructions APPLICATION INSTRUCTIONS: under breasts oxycodone 5 mg Tablet 5 mg PO Q6H PRN (Reason: pain) 3 Days Qty: 12 0RF sennosides-docusate sodium [Stool Softener-Stimulant Laxat] 8.6-50 mg Tablet 2 tab PO BID Qty: 0 0RF Continued fluoxetine 40 mg capsule 40 mg PO DAILY atorvastatin 20 mg tablet 20 mg PO QHS alendronate 70 mg tablet 70 mg PO UD Rx Instructions: weekly. omeprazole 20 mg capsule,delayed release(DR/EC) 20 mg PO DAILY levothyroxine 75 mcg tablet 75 mcg PO DAILY Referrals / Follow Up: Vera Pompa MD [Primary Care Provider] - Within 2 Weeks Saúl Manriquez DO [Med Staff - Active Staff] - Within 2 Weeks Disposition Disposition (needs filled in before D/C Order can be placed): Retirement Facility Charges/Coding Visit Charges Inpatient E&M: 86187 Disch Hosp >30min 09/10/22 1016 <Electronically signed by Luis Ashley DO> Cosigner Signature (if applicable): CC: Dr. Luis Ashley DO; Dr. Vera Pompa MD~ Signed [facility] Work Phone: [phone]) 633-523906-30-2023 Discharge summary Author Luis Ashley [facility] September 10, 2022 10:14am Note Date/Time September 10, 2022 10:1 0am [facility] Medical Records Department [address] [place] [address] Transfer to [facility] MR#: [id number] Acct: [id number] Name: BRIANNE COCHRAN Rep #:[id number] : 1945 76 From: Luis Ashley DO PCP: Dr. Vera Pompa MD Status:AD M IN Certification of patient admission REQUIRED AT TIME OF ADMISSION. I CERTIFY THAT POST-HOSPITAL ECF SERVICES ARE REQUIRED TO BE GIVEN ON AN IN-PATIENT BASIS BECAUSE OF THE ABOVE NAMED PATIENT'S NEED FOR FPC CARE ON A CONTINUING BASIS FOR THE CONDITION(S) FOR WHICH HE/SHE WAS RECEIVINGIN-PATIENT HOSPITAL SERVICES PRIOR TO HIS/HER TRANSFER TO THE ECF. 09/10/22 1014<Electronically signed by Luis Ashley DO> Diet Diet Order/Speech Therapy: 09/09/22 09:00 Diet: Regular - General Is pt able to select menu?: Yes Wound(s) LEFT HIP/LEG: Wound Type: Surgical Incision Therapies Weight Bearing: Weight bearing as tolerated Physical Therapy: Eval and Treat Occupational Therapy: Eval and Treat Problem/Diagnosis (1) Hip fracture: Status: Acute Code(s): S72.009A - Fracture of unspecified part of neck of unspecified femur, initial encounter for closed fracture Plan: Left femoral neck fracture. PT/OT following operative intervention. CM consulted for discharge planning. 25 [place] D level 81.1 09/08: treatment of intertrochanteric hip fracture with intramedullary nail left femur (2) Acute blood loss anemia: Status: Acute Code(s): D62 - Acute posthemorrhagic anemia Plan: Hg dropped from 11.7 to 6.8 Transfuse and monitor Plan Acute Urinary Tract Infection: ruled out. DC CTX. UCx positive, but only 0-5 WBCs. No treatment indicated at this time. Elevated BP without hypertensive diagnosis: resolved. Significantly elevated BP upon presentation, likely pain related, will continue closely monitor and add regimen if appropriate, as needed IV hydralazine in interim. Chronic conditions: * Hypothyroidism: We will continue patient on levothyroxine regimen. * Hyperlipidemia: We will continue patient on statin therapy. * History remote PAF: Patient not on any rate or rhythm agent, not anticoagulated possibly secondary to high fall risk, noted history remotely, most recent echocardiogram noted 2012 but again she has had no recurrence, echo with normal LV size, LV systolic function normal, EF 55%, mild SANKET, mild TVI. * Obesity: Weight loss and lifestyle changes encouraged. * GERD: We will continue patient home PPI. * Chronic normocytic anemia: Admission hemoglobin 11.7, MCV 94.7, baseline hemoglobin appears primarily 10-11 although most recent prior noted 03/17/2016 13.2, has vacillated over the years, will continue to trend. * Anxiety and depression: We will continue patient home fluoxetine home regimen. DVT prophylaxis: SCDs CODE status: Full Discharged to TCU. Continue to monitor H/H. Allergies/Procedures Done in Hospital Allergies codeine Allergy (Verified 09/07/22 17:01) Unknown codeine phosphate [From Tylenol-Codeine #3] Adverse Reaction (Verified 09/07/22 17:01) Unknown nabumetone [From Relafen] Adverse Reaction (Verified 09/07/22 17:01) Unknown naproxen Adverse Reaction (Verified 09/07/22 17:01) Unknown Procedures: - (left hip IM nail. ) Type of Care/Length of Stay Estimated LOS: Convalescent Care Less Than 30 days Type of Care Needed: Skilled Rehab Potential: Good Prognosis: Good Additional Orders/Day of Discharge Day of Discharge: 09/10/22 Discharge Plan Admission Admit Date/Time: 09/07/22 19:15 Primary Reason for Your Visit: left hip fracture Attending Provider: Luis Ashley Primary Care Provider: Vera Pompa Consulting Providers: Yessenia Andres; Saúl Manriquez Discharge Orders/Prescriptions Prescriptions: New calcium carbonate 200 mg calcium (500 mg) Tablet,Chewable 500 mg PO TIDCM Qty: 30 0RF enoxaparin 40 mg/0.4 mL Syringe 40 mg subcut 0600 Qty: 4 0RF Rx Instructions: start 09/12/22 melatonin 3 mg Tablet 3 mg PO QHS PRN PRN (Reason: Insomnia) Qty: 0 0RF nystatin [Nyamyc] 100,000 unit/gram Powder 1 applic topical BID Qty: 0 0RF Protocol: *Topical Application Instructions APPLICATION INSTRUCTIONS: under breasts oxycodone 5 mg Tablet 5 mg PO Q6H PRN (Reason: pain) 3 Days Qty: 12 0RF sennosides-docusate sodium [Stool Softener-Stimulant Laxat] 8.6-50 mg Tablet 2 tab PO BID Qty: 0 0RF Continued fluoxetine 40 mg capsule 40 mg PO DAILY atorvastatin 20 mg tablet 20 mg PO QHS alendronate 70 mg tablet 70 mg PO UD Rx Instructions: weekly. omeprazole 20 mg capsule,delayed release(DR/EC) 20 mg PO DAILY levothyroxine 75 mcg tablet 75 mcg PO DAILY Referrals / Follow Up: Vera Pompa MD [Primary Care Provider] - Within 2 Weeks Saúl Manriquez DO [Med Staff - Active Staff] - Within 2 Weeks Disposition Disposition (needs filled in before D/C Order can be placed): Retirement Facility (1) Hip fracture Qualifiers: Encounter type: initial encounter Fracture type: closed Laterality: left Qualified Code(s): S72.002A - Fracture of unspecified part of neck of left femur, initial encounter for closed fracture 09/10/22 1014 <Electronically signed by Luis Ashley DO> Cosigner Signature (if applicable): CC: Dr. Yessenia Andres MD; Dr. Vera Pompa MD; Dr. Saúl Manriquez DO ~ [facility] Work Phone: [phone]) 601-326806-30-2023 Progress note Author Luis [facility] September 10, 2022 10:08am Note Date/Time September 10, 2022 8:36 am [facility] Medical Records Department [address] [place] [address] Progress Note - Hospitalist 09/10/22 0834 MR#: [id number] Acct: [id number] Name: BRIANNE COCHRAN Rep #:[id number] : 1945 76 From: Luis Ashley DO PCP: Dr. Vera Pompa MD Status:AD M IN Location: [place] [address] Reason for Visit Reason for Visit: Diagnoses Acute posthemorrhagic anemia (09/07/22) Fracture of unspecified part of neck of left femur, initial encounter for closedfracture (09/07/22) Fracture of unspecified part of neck of unspecified femur, initial encounter forclosed fracture (09/07/22) Displaced intertrochanteric fracture of left femur, initial encounter for closedfracture (09/07/22) Subjective Subjective Feels well. No events overnight. Objective Data Objective Data Vital Signs: Vital Signs Temp Pulse Resp BP Pulse Ox O2 Del Method O2 Flow Rate 37.1 C 102 H 16 119/62 92 Nasal Cannula 2 09/10/22 03:13 09/10/22 03:13 09/10/22 03:13 09/10/22 03:13 09/10/22 08:04 09/10/22 08:04 09/10/22 08:04 Oxygen Flow Rate (L/min) 2 Oxygen Delivery Method Nasal Cannula Weight: 63.2 kg Body Mass Index (BMI) 27.3 Intake & Output: Intake and Output for Last 24 Hours 09/08/22 09/09/22 09/10/22 23:59 23:59 23:59 Intake Total 2032.5 / 2082.5 1890.00 / 2090.00 400 / 400 Output Total 1874 / 1974 550 / 750 375 / 375 Balance 157.5 / 107.5 1340.00 / 1340.00 25 Lab / Micro Data 09/10/22 05:45 09/09/22 06:00 Labs: Laboratory Results - last 24 hr 09/08/22 05:35: Crossmatch See Detail 09/10/22 05:45: WBC 9.8, RBC 2.22 L, Hgb 6.8 L, Hct 21.5 L, MCV 96.8, MCH 30.6, MCHC 31.6 L, RDW Std Deviation 47.0 H, RDW Coeff of Serafin 13.2, Plt Count 214, MPV9.9 Micro: Microbiology 09/07/22 18:25 Urine Catheter - Encinas Urine Culture - Final Escherichia coli Physical Exam Const alert and no apparent distress Extremity Extremity Narrative: left hip bandage intact. no obvious left hip hematoma. Assessment & Plan Assessment/Plan (1) Hip fracture: QUALIFIERS: Encounter type: initial encounter Fracture type: closed Laterality: left Qualified Code(s): S72.002A - Fracture of unspecified part of neck of left femur, initial encounter for closed fracture PLAN: Left femoral neck fracture. PT/OT following operative intervention. CM consulted for discharge planning. 25 [place] D level 81.1 09/08: treatment of intertrochanteric hip fracture with intramedullary nail left femur (2) Acute blood loss anemia: PLAN: Hg dropped from 11.7 to 6.8 Transfuse and monitor PLAN: Plan Acute Urinary Tract Infection: ruled out. DC CTX. UCx positive, but only 0-5 WBCs. No treatment indicated at this time. Elevated BP without hypertensive diagnosis: resolved. Significantly elevated BP upon presentation, likely pain related, will continue closely monitor and add regimen if appropriate, as needed IV hydralazine in interim. Chronic conditions: * Hypothyroidism: We will continue patient on levothyroxine regimen. * Hyperlipidemia: We will continue patient on statin therapy. * History remote PAF: Patient not on any rate or rhythm agent, not anticoagulated possibly secondary to high fall risk, noted history remotely, most recent echocardiogram noted 2012 but again she has had no recurrence, echo with normal LV size, LV systolic function normal, EF 55%, mild SANKET, mild TVI. * Obesity: Weight loss and lifestyle changes encouraged. * GERD: We will continue patient home PPI. * Chronic normocytic anemia: Admission hemoglobin 11.7, MCV 94.7, baseline hemoglobin appears primarily 10-11 although most recent prior noted 03/17/2016 13.2, has vacillated over the years, will continue to trend. * Anxiety and depression: We will continue patient home fluoxetine home regimen. DVT prophylaxis: SCDs CODE status: Full Discharged to TCU. Continue to monitor H/H. 09/10/22 1008 <Electronically signed by Luis Ashley DO> Cosigner Signature (if applicable): CC: ~ Signed [facility] Work Phone: [phone]) 589-325306-30-2023 Progress note Author Saúl Manriquez [facility] September 10, 2022 7:56am Note Date/Time September 10, 2022 7:57 am [facility] Medical Records Department [address] [place] [address] Progress Note - Orthopedic 09/10/22 0754 MR#: [id number] Acct: [id number] Name: BRIANNE COCHRAN Rep #:[id number] : 1945 76 From: Saúl isaacs DO PCP: Dr. Vera Pompa MD Status:AD M IN Location: [facility] [id number] Subjective Subjective Patient seen and examined. She reports some soreness in her left hip but otherwise denies any new complaints. Up with therapy yesterday. Denies fevers,chills, nausea vomiting, chest pain or shortness of breath, dizziness, lightheadedness. Does report some general fatigue. Objective Data Objective Data Vital Signs: Vital Signs Temp Pulse Resp BP Pulse Ox O2 Del Method O2 Flow Rate 98.8 F 102 H 16 119/62 92 Nasal Cannula 2 09/10/22 03:13 09/10/22 03:13 09/10/22 03:13 09/10/22 03:13 09/10/22 03:13 09/10/22 03:13 09/10/22 03:13 Oxygen Flow Rate (L/min) 2 Oxygen Delivery Method Nasal Cannula Weight: 139 lb 5.314 oz Body Mass Index (BMI) 27.3 Intake & Output: Intake and Output for Last 24 Hours 09/08/22 09/09/22 09/10/22 23:59 23:59 23:59 Intake Total 2032.5 / 2082.5 1890.00 / 2090.00 400 / 400 Output Total 1874 / 1975 550 / 750 375 / 375 Balance 157.5 / 107.5 1340.00 / 1340.00 25 / Lab / Micro Data 09/10/22 05:45 09/09/22 06:00 Labs: Laboratory Results - last 24 hr 09/09/22 06:00: Vitamin D 25-Hydroxy 81.1 09/10/22 05:45: WBC 9.8, RBC 2.22 L, Hgb 6.8 L, Hct 21.5 L, MCV 96.8, MCH 30.6, MCHC 31.6 L, RDW Std Deviation 47.0 H, RDW Coeff of Serafin 13.2, Plt Count 214, MPV9.9 Micro: Microbiology 09/07/22 18:25 Urine Catheter - Encinas Urine Culture - Final Escherichia coli Physical Exam Narrative General - A&Ox3, NAD. VSS/AF Left lower extremity -scant serosanguineous drainage noted on dressings, otherwise clean dry and intact. No ecchymosis is noted. Compartments are softand compressible. SILT Sural, Saphenous, SPN, DPN, Tibial N. distributions. DP,PT 2+. BCR. DF, PF, EHL 5/5. No calf TTP. Assessment & Plan Assessment/Plan (1) Closed intertrochanteric fracture of left femur: QUALIFIERS: Encounter type: initial encounter Fracture alignment:displaced Qualified Code(s): S72.142A - Displaced intertrochanteric fracture ofleft femur, initial encounter for closed fracture PLAN: POD#2 s/p left femur CMN -Continue acute blood loss anemia noted. Hemoglobin under 7 this morning. 2 units packed red blood cells ordered. Recheck H&H tomorrow. No obvious hematoma on exam. Hold Lovenox tomorrow morning until recheck hemoglobin. - Pain control - Medicine following for medical management - PT/OT-weightbearing as tolerated left lower extremity - DVT PPX -Lovenox, SCDs, ANNABELLE jine, early mobilization - Case management - D/C planning 09/10/22 0756 <Electronically signed by Saúl Manriquez DO> Cosigner Signature (if applicable): CC: ~ Signed [facility] Work Phone: [phone]) 441-688506-29-2023 Progress note Author Saúl Manriquez [facility] September 09, 2022 4:56pm Note Date/Time September 09, 2022 4:54 pm [facility] Medical Records Department [address] [place] [address] Progress Note - Orthopedic 09/09/221652 MR#: [id number] Acct: [id number] Name: BRIANNE COCHRAN Rep #:[id number] : 1945 76 From: Saúl isaacs DO PCP: Dr. Vera Pompa MD Status:AD M IN Location: [place] [address]-1 Subjective Subjective Late entry note: Patient was seen at 0900 this morning Patient seen and examined. She reports her pain to be well controlled. Denies fevers, chills, nausea vomiting, chest pain or shortness of breath. Patient hadset up at bedside with nursing staff earlier this morning. Objective Data Objective Data Vital Signs: Vital Signs Temp Pulse Resp BP Pulse Ox O2 Del Method O2 Flow Rate 97.6 F L 103 H 16 109/71 96 Nasal Cannula 2 09/09/22 15:49 09/09/22 15:49 09/09/22 15:49 09/09/22 15:49 09/09/22 15:49 09/09/22 15:49 09/09/22 15:49 Oxygen Flow Rate (L/min) 2 Oxygen Delivery Method Nasal Cannula Weight: 139 lb 5.314 oz Body Mass Index (BMI) 27.3 Intake & Output: Intake and Output for Last 24 Hours 09/07/22 09/08/22 09/09/22 23:59 23:59 23:59 Intake Total 50 / 50 2032.5 / 2082.5 950 / 950 Output Total 1874 300 / 300 Balance 50 / -400 157.5 / 107.5 650 / 650 Lab / Micro Data 09/09/22 06:00 09/09/22 06:00 Labs: Laboratory Results - last 24 hr 09/09/22 06:00: WBC 9.3, RBC 2.68 L, Hgb 8.2 L, Hct 25.9 L, MCV 96.6, MCH 30.6, MCHC 31.7 L, RDW Std Deviation 47.9 H, RDW Coeff of Serafin 13.3, Plt Count 230, MPV9.7, Immature Gran % (Auto) 0.500, Neut % (Auto) 78.0 H, Lymph % (Auto) 10.2 L, [place] % (Auto) 10.9 H, Eos % (Auto) 0.1, Baso % (Auto) 0.3, Absolute Neuts (auto)7.2, Absolute Lymphs (auto) 0.94, Nucleated RBC % 0, Sodium 140, Potassium 4.1, Chloride 111 H, Carbon Dioxide 23.0, Anion Gap 6, BUN 14, Creatinine 0.64, EstimCreat Clear Calc 49.24, Est GFR (MDRD) Af Amer 116, Est GFR (MDRD) Non-Af 96, BUN/Creatinine Ratio 21.7 H, Glucose 122 H, Calcium 7.8 L, Vitamin D 25-Hydroxy 81.1 Micro: Microbiology 09/07/22 18:25 Urine Catheter - Encinas Urine Culture - Final Escherichia coli Radiography Diagnostic Testing: Radiology Impression Hip/Pelvis X-Ray 09/08/22 18:38 IMPRESSION: Fluoroscopy during open reduction internal fixation of femoral neck fracture. Electronically Signed: Berny Gauthier MD at 20:33 EDT , Physical Exam Narrative General - A&Ox3, NAD. VSS/AF Left lower extremity -incisional dressing shows scant serosanguineous drainage, otherwise clean dry and intact. SILT Sural, Saphenous, SPN, DPN, Tibial N. distributions. DP, PT 2+. BCR. DF, PF, EHL 5/5. No calf TTP. Assessment & Plan Assessment/Plan (1) Closed intertrochanteric fracture of left femur: QUALIFIERS: Encounter type: initial encounter Fracture alignment:displaced Qualified Code(s): S72.142A - Displaced intertrochanteric fracture ofleft femur, initial encounter for closed fracture PLAN: POD#1 s/p left femur CMN -Expected drop in hemoglobin consistent with acute blood loss anemia secondary to surgery - Pain control - Medicine following for medical management - PT/OT-weightbearing as tolerated left lower extremity - DVT PPX -Lovenox, SCDs, ANNABELLE hose, early mobilization - Case management - D/C planning 09/09/221655 <Electronically signed by Saúl Manriquez DO> Cosigner Signature (if applicable): CC: ~ Signed [facility] Work Phone: [phone]) 198-218406-29-2023 Progress note Author Luis Ashley [facility] September 09, 2022 11:12am Note Date/Time September 09, 2022 8:47 am [facility] Medical Records Department [address] [place] [address] Progress Note - Hospitalist 09/09/22 0843 MR#: [id number] Acct: [id number] Name: BRIANNE COCHRAN Rep #:[id number] : 1945 76 From: Luis Ashley DO PCP: Dr. Vera Pompa MD Status:AD M IN Location: [facility] [id number] Reason for Visit Reason for Visit: Diagnoses Fracture of unspecified part of neck of left femur, initial encounter for closedfracture (09/07/22) Fracture of unspecified part of neck of unspecified femur, initial encounter forclosed fracture (09/07/22) Subjective Subjective Feeling well. Objective Data Objective Data Vital Signs: Vital Signs Temp Pulse Resp BP Pulse Ox O2 Del Method O2 Flow Rate 36.5 C L 98 16 119/68 94 Room Air 2 09/09/22 05:18 09/09/22 05:18 09/09/22 05:18 09/09/22 05:18 09/09/22 07:20 09/09/22 07:20 09/09/22 05:18 Oxygen Flow Rate (L/min) 2 Oxygen Delivery Method Room Air Weight: 63.2 kg Body Mass Index (BMI) 27.3 Intake & Output: Intake and Output for Last 24 Hours 09/07/22 09/08/22 09/09/22 23:59 23:59 23:59 Intake Total 50 / 50 2032.5 / 2082.5 460 / 460 Output Total 1874 300 / 300 Balance 50 / -400 157.5 / 107.5 160 / 160 Lab / Micro Data 09/09/22 06:00 09/09/22 06:00 Labs: Laboratory Results - last 24 hr 09/09/22 06:00: WBC 9.3, RBC 2.68 L, Hgb 8.2 L, Hct 25.9 L, MCV 96.6, MCH 30.6, MCHC 31.7 L, RDW Std Deviation 47.9 H, RDW Coeff of Serafin 13.3, Plt Count 230, MPV9.7, Immature Gran % (Auto) 0.500, Neut % (Auto) 78.0 H, Lymph % (Auto) 10.2 L, [place] % (Auto) 10.9 H, Eos % (Auto) 0.1, Baso % (Auto) 0.3, Absolute Neuts (auto)7.2, Absolute Lymphs (auto) 0.94, Nucleated RBC % 0, Sodium 140, Potassium 4.1, Chloride 111 H, Carbon Dioxide 23.0, Anion Gap 6, BUN 14, Creatinine 0.64, EstimCreat Clear Calc 49.24, Est GFR (MDRD) Af Amer 116, Est GFR (MDRD) Non-Af 96, BUN/Creatinine Ratio 21.7 H, Glucose 122 H, Calcium 7.8 L, Vitamin D 25-Hydroxy 81.1 Micro: Microbiology 09/07/22 18:25 Urine Catheter - Encinas Urine Culture - Final Escherichia coli Radiography Diagnostic Testing: Radiology Impression Hip/Pelvis X-Ray 09/08/22 18:38 IMPRESSION: Fluoroscopy during open reduction internal fixation of femoral neck fracture. Electronically Signed: Berny Gauthier MD at 20:33 EDT , Physical Exam Const alert and no apparent distress Constitutional Narrative: working with therapy. HEENT head/scalp atraumatic and moist oral mucous membranes Cardio regular rate Extremity Extremity Narrative: left hip surgical site bandaged. some ecchymosis. Assessment & Plan Assessment/Plan (1) Hip fracture: QUALIFIERS: Encounter type: initial encounter Fracture type: closed Laterality: left Qualified Code(s): S72.002A - Fracture of unspecified part of neck of left femur, initial encounter for closed fracture PLAN: Left femoral neck fracture. PT/OT following operative intervention. CM consulted for discharge planning. 25 [place] D level 81.1 09/08: treatment of intertrochanteric hip fracture with intramedullary nail left femur (2) Acute blood loss anemia: PLAN: Hg dropped from 11.7 to 8.2 No need for transfusion at this time Monitor PLAN: Plan Acute Urinary Tract Infection: ruled out. DC CTX. UCx positive, but only 0-5 WBCs. No treatment indicated at this time. Elevated BP without hypertensive diagnosis: resolved. Significantly elevated BP upon presentation, likely pain related, will continue closely monitor and add regimen if appropriate, as needed IV hydralazine in interim. Chronic conditions: * Hypothyroidism: We will continue patient on levothyroxine regimen. * Hyperlipidemia: We will continue patient on statin therapy. * History remote PAF: Patient not on any rate or rhythm agent, not anticoagulated possibly secondary to high fall risk, noted history remotely, most recent echocardiogram noted 2012 but again she has had no recurrence, echo with normal LV size, LV systolic function normal, EF 55%, mild SANKET, mild TVI. * Obesity: Weight loss and lifestyle changes encouraged. * GERD: We will continue patient home PPI. * Chronic normocytic anemia: Admission hemoglobin 11.7, MCV 94.7, baseline hemoglobin appears primarily 10-11 although most recent prior noted 03/17/2016 13.2, has vacillated over the years, will continue to trend. * Anxiety and depression: We will continue patient home fluoxetine home regimen. DVT prophylaxis: SCDs, defer chemoprophylaxis for planned operative intervention. CODE status: Full Charges/Coding Visit Charges Inpatient E&M: 89596 Subs Hosp L2 09/09/22 1112 <Electronically signed by Luis Ashley DO> Cosigner Signature (if applicable): CC: ~ Signed [facility] Work Phone: 1(403) 806-888206-28-2023 Procedure [facility] 09-08-2022 Progress note Author Luis Ashley [facility] September 08, 2022 10:51am Note Date/Time September 08, 2022 7:23 am [facility] Medical Records Department [address] [place] [address] Progress Note - Hospitalist 09/08/2218 MR#: [id number] Acct: [id number] Name: BRIANNE COCHRAN Rep #:[id number] : 1945 76 From: Luis Ashley DO PCP: Dr. Vera Pompa MD Status:AD M IN Location: [place] [address] Reason for Visit Reason for Visit: Diagnoses Fracture of unspecified part of neck of unspecified femur, initial encounter forclosed fracture (09/07/22) Subjective Subjective No events overnight. States that she falls frequently. Objective Data Objective Data Vital Signs: Vital Signs Temp Pulse Resp BP Pulse Ox O2 Del Method 36.6 C 93 16 108/66 93 Room Air 09/08/22 00:11 09/08/22 00:11 09/08/22 00:11 09/08/22 00:11 09/08/22 00:11 09/08/22 01:52 Oxygen Delivery Method Room Air Weight: 63.276 kg Body Mass Index (BMI) 27.2 Intake & Output: Intake and Output for Last 24 Hours 09/06/22 09/07/22 09/08/22 23:59 23:59 23:59 Intake Total 50 / 50 Output Total 450 / 450 Balance 50 / -400 -450 / -450 Lab / Micro Data 09/08/22 05:35 09/08/22 05:35 Labs: Laboratory Results - last 24 hr 09/07/22 17:25: WBC 7.8, RBC 3.80 L, Hgb 11.7 L, Hct 36.0 L, MCV 94.7, MCH 30.8,MCHC 32.5, RDW Std Deviation 45.5 H, RDW Coeff of Serafin 13.0, Plt Count 296, MPV 9.8, Immature Gran % (Auto) 0.300, Neut % (Auto) 70.1 H, Lymph % (Auto) 17.5 L, [place] % (Auto) 7.7, Eos % (Auto) 3.8, Baso % (Auto) 0.6, Absolute Neuts (auto) 5.5, Absolute Lymphs (auto) 1.37, Nucleated RBC % 0, Sodium 140, Potassium 4.2, Chloride 111 H, Carbon Dioxide 22.0, Anion Gap 7, BUN 21 H, Creatinine 0.81, Estim Creat Clear Calc 45.98, Est GFR (MDRD) Af Amer 89, Est GFR (MDRD) Non-Af 73, BUN/Creatinine Ratio 25.9 H, Glucose 102, Calcium 8.4 L 09/07/22 18:25: Urine Color Yellow, Urine Clarity Sl. Cloudy, Urine pH 6.0, Ur Specific [place] 1.020, Urine Protein 15 H, Urine Glucose (UA) Normal, Urine Ketones 5 H, Urine Occult Blood 50 H, Urine Nitrite Positive H, Urine Bilirubin Negative, Urine Urobilinogen Normal, Ur Leukocyte Esterase 25 H, Urine RBC 0-5 SEEN, Urine WBC 0-5 SEEN, Ur Squamous Epith Cells 0-5 SEEN, Amorphous Sediment 1+ URATE, Urine Bacteria RARE, Urine Mucus 0 SEEN Radiography Diagnostic Testing: Radiology Impression Chest X-Ray 09/07/22 17:35 IMPRESSION: No radiographic evidence of acute cardiopulmonary disease. Electronically Signed: Janette Levine MD at 18:12 EDT Reading Location ID and State: [place] Paiz MD Tel , Service support , Hip/Pelvis X-Ray 09/07/22 17:35 IMPRESSION: Acute fracture of the left femoral neck. Electronically Signed: Janette Levine MD at 18:06 EDT Reading Location ID and State: [place] Paiz MD Tel , Service support , Physical Exam Const alert and no apparent distress HEENT head/scalp atraumatic and moist oral mucous membranes Resp normal respiratory effort, no retractions, no use of accessory muscles and clearto auscultation bilaterally Cardio regular rate, regular rhythm, S1 normal heart sound and S2 normal heart sound GI normal to inspection, nondistended, normoactive bowel sounds, soft to palpation and non-tender Assessment & Plan Assessment/Plan (1) Hip fracture: QUALIFIERS: Encounter type: initial encounter Fracture type: closed Laterality: left Qualified Code(s): S72.002A - Fracture of unspecified part of neck of left femur, initial encounter for closed fracture PLAN: Left femoral neck fracture. Orthopedic surgery consulted from ED. continue treatment as noted #2, encinas placement, monitor I/Os, frequent positioning, fall precautions, as needed pain, anti-emetic regimen. PT/OT following operative intervention. CM consulted for discharge planning. Check 25 [place] D level. Per surgical risk calculator given patient's underlying history, ED evaluation including imaging and EKG would consider patient appropriate risk to proceed to operative intervention. EKG with SR without acute findings. Labs baseline stable. No history of chest pain or dyspnea, able to perform normal activities limited only by arthritic disease and fibromyalgia. Discussed case and agreementwith progression with orthopedic surgery. PLAN: Plan Acute Urinary Tract Infection: ruled out. DC CTX. Elevated BP without hypertensive diagnosis: resolved. Significantly elevated BP upon presentation, likely pain related, will continue closely monitor and add regimen if appropriate, as needed IV hydralazine in interim. Chronic conditions: * Hypothyroidism: We will continue patient on levothyroxine regimen. * Hyperlipidemia: We will continue patient on statin therapy. * History remote PAF: Patient not on any rate or rhythm agent, not anticoagulated possibly secondary to high fall risk, noted history remotely, most recent echocardiogram noted 2012 but again she has had no recurrence, echo with normal LV size, LV systolic function normal, EF 55%, mild SANKET, mild TVI. * Obesity: Weight loss and lifestyle changes encouraged. * GERD: We will continue patient home PPI. * Chronic normocytic anemia: Admission hemoglobin 11.7, MCV 94.7, baseline hemoglobin appears primarily 10-11 although most recent prior noted 03/17/2016 13.2, has vacillated over the years, will continue to trend. * Anxiety and depression: We will continue patient home fluoxetine home regimen. DVT prophylaxis: SCDs, defer chemoprophylaxis for planned operative intervention. CODE status: Full Charges/Coding Visit Charges Inpatient E&M: 96490 Subs Hosp L2 09/08/22 1051 <Electronically signed by Luis Ashley DO> Cosigner Signature (if applicable): CC: ~ Signed [facility] Work Phone: 1(501) 393-531106-27-2023 Consult note Author Saúl Manriquez [facility] September 07, 2022 8:32pm Note Date/Time September 07, 2022 8:32 pm [facility] Medical Records Department [address] [place] [address] Consultation - Orthopedics 09/07/222028 MR#: [id number] Acct: [id number] Name: BRIANNE COCHRAN Rep #:[id number] : 1945 76 From: Saúl isaacs DO PCP: Dr. Vera Pompa MD Status:AD M IN Location: [place] [address] HPI Consult Data Date of Consult: 09/07/22 HPI Narrative Reason for Consultation: Left hip fracture HPI Narrative: BRIANNE COCHRAN, is a 76 F who presents after mechanical fall from standing height onto the left side earlier today. [facility] revealed a comminuted intertrochanteric left femur fracture. Patient was admitted under the service of hospitalist. Saw thepatient in consultation this evening. She denied any head injury or loss consciousness. Denies any other new pain. Denies fevers, chills, nausea vomiting, chest pain or shortness of breath. Patient is a community ambulator with utilization of both a cane and a walker intermittently. She denies any antecedent left hip or groin pain. [facility] Medical History (Updated 09/07/22 @ 19:[address] Yessenia Andres MD) Anxiety and depression Chronic anemia Fibromyalgia GERD (gastroesophageal reflux disease) HLD (hyperlipidemia) Hypothyroid Obesity Osteoporosis PAF (paroxysmal atrial fibrillation) Home Medications alendronate 70 mg tablet 70 mg PO UD 09/07/22 [History Last Taken Unknown] atorvastatin 20 mg tablet 20 mg PO QHS 09/07/22 [History Last Taken Unknown] fluoxetine 40 mg capsule 40 mg PO DAILY 09/07/22 [History Last Taken Unknown] levothyroxine 75 mcg tablet 75 mcg PO DAILY 09/07/22 [History Last Taken Unknown] omeprazole 20 mg capsule,delayed release 20 mg PO DAILY 09/07/22 [History Last Taken Unknown] Allergy/AdvReac Type Severity Reaction Status Date / Time codeine Allergy Unknown Verified 09/07/22 17:01 codeine phosphate AdvReac Unknown Verified 09/07/22 17:01 [From Tylenol-Codeine #3] nabumetone [From Relafen] AdvReac Unknown Verified 09/07/22 17:01 naproxen AdvReac Unknown Verified 09/07/22 17:01 Family History (Updated 09/07/22 @ 19:[address] Yessenia Andres MD) Mother Cancer Father Cancer Surgical History (Updated 09/07/22 @ 19:[address] Yessenia Andres MD) H/O ovarian cystectomy History of section History of total right hip replacement S/P kyphoplasty S/P ORIF (open reduction internal fixation) fracture Social History (Updated 09/07/22 @ 19:[address] Yessenia Andres MD) household members: spouse Smoking Status: Never smoker alcohol intake: never substance use type: does not use ROS ROS Narrative 12 point review systems obtained, negative unless otherwise noted in HPI. Vital Signs Vital Signs Vital Signs: 09/07/22 16:57 09/07/22 19:00 09/07/22 20:03 Temperature 97.5 F L 97 F L Temperature Source Oral Temporal Pulse Rate 94 92 91 Respiratory Rate 16 15 14 Blood Pressure 159/100 H 176/98 H 159/91 H Blood Pressure Mean 119 124 113 Pulse Ox 97 100 92 Oxygen Delivery Method Room Air Room Air Room Air Weight Weight: 165 lb 2.02 oz Body Mass Index (BMI) 30.4 Physical Exam Narrative General -A&Ox3, NAD, appears stated age. Vital signs stable, afebrile. Respiratory -normal work of breathing, no intercostal retractions. CV -pulses regular, brisk capillary refill ?4 limbs. Abdomen-soft, nontender, nondistended. No guarding, rigidity, rebound tenderness. Musculoskeletal/neurologic -full range of motion nontender throughout bilateral upper extremities, right lower extremity with full sensation and strength in alldermatomes and myotomes. No midline cervical tenderness. Left lower extremity-no obvious deformity. Pain with logroll of the left lower extremity. Nontender throughout the left knee femoral shaft, tibial shaft and left foot/ankle. Brisk capillary refill. Sensation intact light touch L3-S1 dermatomes. DF, PF, EHL intact. DP, PT 2+. Pelvis is stable, nontender. Skinis intact without lacerations, abrasions. No ecchymosis noted. Lab / Micro Data Result Diagrams: 09/07/22 17:25 09/07/22 17:25 Labs: Laboratory Results - last 24 hr 09/07/22 17:25: WBC 7.8, RBC 3.80 L, Hgb 11.7 L, Hct 36.0 L, MCV 94.7, MCH 30.8,MCHC 32.5, RDW Std Deviation 45.5 H, RDW Coeff of Serafin 13.0, Plt Count 296, MPV 9.8, Immature Gran % (Auto) 0.300, Neut % (Auto) 70.1 H, Lymph % (Auto) 17.5 L, [place] % (Auto) 7.7, Eos % (Auto) 3.8, Baso % (Auto) 0.6, Absolute Neuts (auto) 5.5, Absolute Lymphs (auto) 1.37, Nucleated RBC % 0 09/07/22 17:25: Sodium 140, Potassium 4.2, Chloride 111 H, Carbon Dioxide 22.0, Anion Gap 7, BUN 21 H, Creatinine 0.81, Estim Creat Clear Calc 45.98, Est GFR (MDRD) Af Amer 89, Est GFR (MDRD) Non-Af 73, BUN/Creatinine Ratio 25.9 H, Glucose 102, Calcium 8.4 L 09/07/22 18:25: Urine Color Yellow, Urine Clarity Sl. Cloudy, Urine pH 6.0, Ur Specific [place] 1.020, Urine Protein 15 H, Urine Glucose (UA) Normal, Urine Ketones 5 H, Urine Occult Blood 50 H, Urine Nitrite Positive H, Urine Bilirubin Negative, Urine Urobilinogen Normal, Ur Leukocyte Esterase 25 H, Urine RBC 0-5 SEEN, Urine WBC 0-5 SEEN, Ur Squamous Epith Cells 0-5 SEEN, Amorphous Sediment 1+ URATE, Urine Bacteria RARE, Urine Mucus 0 SEEN Radiology Impression Chest X-Ray 09/07/22 17:35 IMPRESSION: No radiographic evidence of acute cardiopulmonary disease. Electronically Signed: Janette Levine MD at 18:12 EDT Reading Location ID and State: [place] / Tel , Service support , Hip/Pelvis X-Ray 09/07/22 17:35 IMPRESSION: Acute fracture of the left femoral neck. Electronically Signed: Janette Levine MD at 18:06 EDT Reading Location ID and State: [place] / Tel , Service support , Assessment & Plan Assessment/Plan (1) Hip fracture: PLAN: Patient sustained a left intertrochanteric proximal femur fracture. -Closed, neurovascularly intact -Isolated injury -Recommending surgical intervention in the form of left femur cephalomedullary nailing -I discussed the procedure-its risks, benefits and alternative. Risks include but are not limited to bleeding, infection, loss of life or limb, risk of anesthesia, persistent pain or disability, need for additional surgery, nonunion, malunion, failure of orthopedic hardware, neurovascular injury, DVT orPE. Patient expressed understanding these risks and wished proceed with surgery. -Maintenance IV fluids, clear liquid diet after midnight n.p.o. at 2 hours priorto surgery -Type and screen -2 g Ancef on-call to the OR -Bedrest, heel protectors -Plan to proceed with surgery later today when OR becomes available Thank you for this consultation. 09/07/222031 <Electronically signed by Saúl Manriquez DO> Cosigner Signature (if applicable): CC: Dr. Vera Pompa MD~ Signed [facility] Work Phone: [phone]) 702-935806-27-2023 History and physical note Author Yessenia Andres [facility] September 07, 2022 8:17pm Note Date/Time September 07, 2022 7:20 pm [facility] Medical Records Department [address] [place] [address] H&P Exam - Hospitalist 09/07/221912 MR#: [id number] Acct: [id number] Name: BRIANNE COCHRAN Rep #:[id number] : 1945 76 From: Yessenia Andres MD PCP: Dr. Vera Pompa MD Status:RE G ER Location: ED HPI - General General Date of Service: 09/07/22 Chief Complaint: Fall, L hip pain. HPI Narrative The patient is a 76 y/o F w/ PMHx: Chronic normocytic anemia, HLD, GERD, Anxietyand Depression, Hypothyroidism, PAF remotely not on any chronic anticoagulant therapy, Fibromylagia who presents to the [facility] ED on 09/07/22 with history unfortunately chemical fall following tripping and landing on her left hip unable to ambulate with intractable pain prompting EMS call with administration of 200 mcg total of fentanyl while in her pain with no loss of consciousness andnor any history of hitting her head. She does admit to recent several day history of urinary frequency and mild dysuria as well as sensation of incompletely emptying her bladder. Despite recent morphine administration in theED she notes currently pain is severe, sharp, worse with any movement of the left lower extremity, tentative 10. Work-up in the ED included T97.5, heart rate94, respiratory rate 16, BP 159/100, 97% room air, CBC with WC 7.8, hemoglobin 11.7, MCV 94.7, platelet 296 without marked shift, BMP with chloride 111, BUN/creatinine 21/0.81, urinalysis not completely resulted but currently specific remedy 1.020, ketone 5, occult blood 50, positive nitrite, 25 leukocyte Estrace, awaiting urine RBC/WBC/urine bacteria assessment, chest x-ray with no acute cardiopulmonary findings, plain film of the left hip with an acute fracture of the left femoral neck demonstrated, EKG SR without acute evidence ofischemia. In the ED patient ministered morphine 4 mg IV x1, Rocephin 1 g IV x1.ED discussed case with Dr. Manriquez. [facility] Medical History (Updated 09/07/22 @ 19:[address] Yessenia Andres MD) Anxiety and depression Chronic anemia Fibromyalgia GERD (gastroesophageal reflux disease) HLD (hyperlipidemia) Hypothyroid Obesity Osteoporosis PAF (paroxysmal atrial fibrillation) Home Medications alendronate 70 mg tablet 70 mg PO UD 09/07/22 [History Last Taken Unknown] atorvastatin 20 mg tablet 20 mg PO QHS 09/07/22 [History Last Taken Unknown] fluoxetine 40 mg capsule 40 mg PO DAILY 09/07/22 [History Last Taken Unknown] levothyroxine 75 mcg tablet 75 mcg PO DAILY 09/07/22 [History Last Taken Unknown] omeprazole 20 mg capsule,delayed release 20 mg PO DAILY 09/07/22 [History Last Taken Unknown] Allergy/AdvReac Type Severity Reaction Status Date / Time codeine Allergy Unknown Verified 09/07/22 17:01 codeine phosphate AdvReac Unknown Verified 09/07/22 17:01 [From Tylenol-Codeine #3] nabumetone [From Relafen] AdvReac Unknown Verified 09/07/22 17:01 naproxen AdvReac Unknown Verified 09/07/22 17:01 Family History (Updated 09/07/22 @ 19:[address] Yessenia Andres MD) Mother Cancer Father Cancer Surgical History (Updated 09/07/22 @ 19:[address] Yessenia Andres MD) H/O ovarian cystectomy History of section History of total right hip replacement S/P kyphoplasty S/P ORIF (open reduction internal fixation) fracture Social History (Updated 09/07/22 @ 19:[address] Yessenia Andres MD) household members: spouse Smoking Status: Never smoker alcohol intake: never substance use type: does not use ROS ROS Narrative Admission Review of Systems: CONSTITUTIONAL: No weight loss, fever, chills, + weakness or fatigue. HEENT: Eyes: No visual loss, blurred vision, double vision or yellow sclerae. Ears, Nose, Throat: No hearing loss, sneezing, congestion, runny nose or sore throat. SKIN: No rash or itching, lesions, wounds. CARDIOVASCULAR: No chest pain, chest pressure or chest discomfort, palpitations,edema, orthopnea, syncopal events. RESPIRATORY: No shortness of breath, cough or sputum, wheezing, hemoptysis. GASTROINTESTINAL: No anorexia, nausea, vomiting or diarrhea, abdominal pain, melena, BRBPR. GENITOURINARY: + Dysuria, sensation retention/incomplete emptying, frequency. NEUROLOGICAL: No headache, dizziness, syncope, paralysis, ataxia, numbness or tingling in the extremities, focal weakness, change in bowel or bladder control,seizure. MUSCULOSKELETAL: + muscle, back pain, joint pain or stiffness. HEMATOLOGIC: + anemia. LYMPHATICS: No enlarged nodes. No history of splenectomy. PSYCHIATRIC: + history of depression or anxiety. ENDOCRINOLOGIC: No reports of sweating, cold or heat intolerance. No polyuria orpolydipsia. ALLERGIES: No history of asthma, hives, eczema or rhinitis. Vital Signs Vital Signs Vital Signs: 09/07/22 16:57 Temperature 97.5 F L Temperature Source Oral Pulse Rate 94 Respiratory Rate 16 Blood Pressure 159/100 H Blood Pressure Mean 119 Pulse Ox 97 Oxygen Delivery Method Room Air Weight Weight: 165 lb 2.02 oz Body Mass Index (BMI) 30.4 Physical Exam Narrative Physical Examination: General: Awake, alert, oriented x 3 and cooperative, laying in the ED bed, uncomfortable appearing, reporting 10 of 10 left hip pain. Skin: Normal color, normal turgor, no icterus, no cyanosis. HEENT: AT/NC, EOMI, PERRLA, mildly dry MM, no carotid bruits or JVD noted. Lungs: Mildly diminished, greater bases, proper effort, no rales, ronchi or wheezing. Heart: Currently regular rate and rhythm; no gallop, rub audible. Abdomen: Soft, obese, NTTP, ND, normal BS, no HSM. Extremities: No cyanosis, no clubbing, peripheral pulses intact, status post fall with left hip fracture with external rotation noted. Neurological: Patient awake, alert, oriented as noted, cognitive function intact; pupils equally reactive to light and accommodation, cranial nerves grossly normal, moving extremities however limited left lower extremity given recent fall with hip fracture, accordingly strength severely globally decreased. Psychiatric: Affect appears uncomfortable, no acute evidence of depressive or anxiety feelings but does have underlying history. Results Lab / Micro Data Result Diagrams: 09/07/22 17:25 09/07/22 17:25 Labs: Laboratory Results - last 24 hr 09/07/22 17:25: WBC 7.8, RBC 3.80 L, Hgb 11.7 L, Hct 36.0 L, MCV 94.7, MCH 30.8,MCHC 32.5, RDW Std Deviation 45.5 H, RDW Coeff of Serafin 13.0, Plt Count 296, MPV 9.8, Immature Gran % (Auto) 0.300, Neut % (Auto) 70.1 H, Lymph % (Auto) 17.5 L, [place] % (Auto) 7.7, Eos % (Auto) 3.8, Baso % (Auto) 0.6, Absolute Neuts (auto) 5.5, Absolute Lymphs (auto) 1.37, Nucleated RBC % 0 09/07/22 17:25: Sodium 140, Potassium 4.2, Chloride 111 H, Carbon Dioxide 22.0, Anion Gap 7, BUN 21 H, Creatinine 0.81, Estim Creat Clear Calc 45.98, Est GFR (MDRD) Af Amer 89, Est GFR (MDRD) Non-Af 73, BUN/Creatinine Ratio 25.9 H, Glucose 102, Calcium 8.4 L 09/07/22 18:25: Urine Color Yellow, Urine Clarity Sl. Cloudy, Urine pH 6.0, Ur Specific [place] 1.020, Urine Protein 15 H, Urine Glucose (UA) Normal, Urine Ketones 5 H, Urine Occult Blood 50 H, Urine Nitrite Positive H, Urine Bilirubin Negative, Urine Urobilinogen Normal, Ur Leukocyte Esterase 25 H, Urine RBC 0-5 SEEN, Urine WBC 0-5 SEEN, Ur Squamous Epith Cells 0-5 SEEN, Amorphous Sediment 1+ URATE, Urine Bacteria RARE, Urine Mucus 0 SEEN Radiology Impression Chest X-Ray 09/07/22 17:35 IMPRESSION: No radiographic evidence of acute cardiopulmonary disease. Electronically Signed: Janette Levine MD at 18:12 EDT Reading Location ID and State: [place] Paiz MD Tel , Service support , Hip/Pelvis X-Ray 09/07/22 17:35 IMPRESSION: Acute fracture of the left femoral neck. Electronically Signed: Janette Levine MD at 18:06 EDT Reading Location ID and State: [place] Paiz MD Tel , Service support , Assessment & Plan Assessment/Plan (1) Hip fracture: PLAN: Plan The patient is a 76 y/o F w/ PMHx: Chronic normocytic anemia, HLD, GERD, Anxietyand Depression, Hypothyroidism, PAF remotely not on any chronic anticoagulant therapy, Fibromylagia who presents to the [facility] ED on 09/07/22 with history unfortunately chemical fall following tripping and landing on her left hip unable to ambulate with intractable pain prompting EMS call with administration of 200 mcg total of fentanyl while in her pain with no loss of consciousness andnor any history of hitting her head. #1. General debility, left hip pain s/p mechanical fall w/ left femoral neck fracture: Plain film noting left femoral neck. Orthopedic surgery consulted from ED. Will admit to MS, maintain NPO after midnight, continue gentle IVFs, pending UCx w/ concern UTI, continue treatment as noted #2, encinas placement, monitor I/Os, frequent positioning, fall precautions, as needed pain, anti-emetic regimen. PT/OT following operative intervention. CM consulted for discharge planning. Per surgical risk calculator given patient's underlying history, ED evaluation including imaging and EKG would consider patient appropriate risk to proceed to operative intervention. EKG with SR without acute findings. Labs baseline stable. No history of chest pain or dyspnea, able to perform normal activities limited only by arthritic disease and fibromyalgia. Discussed case and agreementwith progression with orthopedic surgery. #2. Acute Urinary Tract Infection: UA upon ED evaluation remarkable although full urinalysis is pending but suspicion, pending UCx, will continue IVFs, monitor I/Os, continue IV Rocephin w/ transition as able pending sensitivities and speciation. #3. Elevated BP without hypertensive diagnosis: Significantly elevated BP upon presentation, likely pain related, will continue closely monitor and add regimenif appropriate, as needed IV hydralazine in interim. #4. Hypothyroidism: We will continue patient on levothyroxine regimen. #5. Hyperlipidemia: We will continue patient on statin therapy. #6. History remote PAF: Patient not on any rate or rhythm agent, not anticoagulated possibly secondary to high fall risk, noted history remotely, most recent echocardiogram noted 2012 but again she has had no recurrence, echo with normal LV size, LV systolic function normal, EF 55%, mild SANKET, mild TVI. #7. Obesity: Weight loss and lifestyle changes encouraged. #8. GERD: We will continue patient home PPI. #9. Chronic normocytic anemia: Admission hemoglobin 11.7, MCV 94.7, baseline hemoglobin appears primarily 10-11 although most recent prior noted 03/17/2016 13.2, has vacillated over the years, will continue to trend. #10. Anxiety and depression: We will continue patient home fluoxetine home regimen. #11. DVT prophylaxis: SCDs, defer chemoprophylaxis for planned operative intervention. #12. CODE status: Patient does not have healthcare power of [place] in place however she does have a living will set up. Her who is present regardless she notes would be her decision-maker if she was unable. Discussed CODE status at length including difference between FULL code, DNR-CCA and DNR-CCstatus. Following discussions about the differences in these status, requested Full Code status. Advanced Care Planning Face to Face Time: 16 minutes. Admission Evaluation Time spent evaluating chart, patient history, patient evaluation, care planning and discussion with specialists: 75 minutes. Charges/Coding Visit Charges Inpatient E&M: 66539 Init Hosp L3 Procedures Hospitalists Procedures: 85264 Advncd Care Plan 30 Min 09/07/222016 <Electronically signed by Yessenia Andres MD> Cosigner Signature (if applicable): CC: Dr. Yessenia Andres MD; Dr. Vera Pompa MD~ Signed [facility] Work Phone: 1(907) 575-423306-27-[address] Wooten [facility] September 07, 2022 7:03pm Note Date/Time September 07, 2022 7:01 pm [facility] Medical Records Department [address] [place] [address] Emergency Department Summary 09/07/22 MR#: [id number] Acct: [id number] Name: BRIANNE COCHRAN Rep #:[id number] : 1945 76 From: Giancarlo Wooten DO PCP: Dr. Vera Pompa MD Status:RE G ER Location: ED HPI History of Present Illness Chief Complaint: Lower Extremity Injury Narrative Narrative: 76-year-old female status post mechanical fall after tripping and falling onto her left hip. She is unable to ambulate. She was transported by EMS. Report is that they gave her 200 mcg of fentanyl. Patient still having some pain. Denies hitting head or LOC. She is not on anticoagulation. She has history of right hip fracture distantly. [facility] Medical History Fibromyalgia Osteoporosis Home Medications calcium carbonate 600 mg calcium (1,500 mg) tablet 600 mg PO DAILY ##30 06/19/15[Rx Last Taken Unknown] cholecalciferol (vitamin D3) 25 mcg (1,000 unit) tablet (Vitamin D3) 2,000 unit PO DAILY ##30 06/19/15 [Rx Last Taken Unknown] fluoxetine 20 mg capsule 20 mg PO BID ##60 06/19/15 [Rx Last Taken Unknown] oswbstdp-uvm-surry acid 0.4 mg-lycopene 300 mcg-lutein 250 mcg tablet (Centrum Silver) 1 ea PO DAILY ##30 06/19/15 [Rx Last Taken Unknown] acetaminophen 325 mg tablet (Tylenol) 650 mg PO Q6H PRN PRN Mild Pain (scale 0-3)/T>100.7 ##0 03/20/16 [Rx Last Taken Unknown] alendronate 70 mg tablet (Fosamax) 70 mg PO QWEEK ##1 03/20/16 [Rx Last Taken Unknown] aluminum-mag hydroxide-simethicone 400 mg-400 mg-40 mg/5 mL oral susp (Mag-Al Plus Extra Strength) 30 ml PO Q6H PRN PRN Gastric Burning ##0 03/20/16 [Rx Last Taken Unknown] cyclobenzaprine 10 mg tablet 5 mg PO TID PRN PRN Muscle Spasm ##0 03/20/16 [Rx Last Taken Unknown] docusate sodium 100 mg capsule (DOK) 200 mg PO BID PRN PRN Constipation ##0 03/20/16 [Rx Last Taken Unknown] levothyroxine 112 mcg tablet 88 mcg PO DAILY@0600 04/29/18 [History Last Taken Unknown] Allergy/AdvReac Type Severity Reaction Status Date / Time codeine Allergy Unknown Verified 09/07/22 17:01 codeine phosphate AdvReac Unknown Verified 09/07/22 17:01 [From Tylenol-Codeine #3] nabumetone [From Relafen] AdvReac Unknown Verified 09/07/22 17:01 naproxen AdvReac Unknown Verified 09/07/22 17:01 Social History Smoking Status: Never smoker ROS ROS ED Constitutional Constitutional ED: Denies chills, fever(s) or sweats Eyes Eyes: Denies blurry vision or change in vision ENT ENT ED: Denies ear pain or sore throat Cardiovascular Cardiovascular: Denies chest pain, palpitations or racing heartbeat Respiratory/Chest Respiratory/Chest: Denies cough, dyspnea or sputum Gastrointestinal Gastrointestinal: Denies abdominal pain, constipation, diarrhea, nausea or vomiting Genitourinary Genitourinary ED: Denies dysuria, hematuria or urinary frequency Musculoskeletal Musculoskeletal: Reports other Details: Pain in left hip Integumentary Denies abscess, Abrasions or rash Neurologic Neurologic: Denies headache(s), paresthesias or weakness Psychiatric Psychiatric: Denies anxiety, depression, suicidal ideation or suicidal thoughts Endocrine Endocrinology: Denies polydipsia or polyuria EXAM Physical Exam Const Vital Signs: 09/07/22 16:57 Temperature 97.5 F L Temperature Source Oral Pulse Rate 94 Respiratory Rate 16 Blood Pressure 159/100 H Blood Pressure Mean 119 Pulse Ox 97 Oxygen Delivery Method Room Air Positive well nourished General Appearance ED: NAD HEENT Reports moist mucous membranes normocephalic and atraumatic Resp normal respiratory effort and no retractions Cardio regular rate and regular rhythm Extremity Extremity Narrative: Tenderness palpation left greater trochanter. Positive logroll on the left. Neuro oriented x3 and CN's II-XII intact bilaterally Sensorium / Orientation: alert Psych mental status grossly normal Skin no wounds MDM MDM MDM Narrative Medical decision making narrative: Patient presenting with left hip pain. She states it was a mechanical fall. Nohead injury or LOC. She is not have any other complaints. CBC was obtained to assess white blood cell count, hemoglobin, platelets, differential. BMP to assess renal function, electrolytes. Urinalysis to assess for UTI. Encinas catheter was placed for patient comfort that she is not can be able to ambulate. Left hip x-ray was obtained as well as a chest x-ray for preoperative planning. EKG was also obtained for this reason. GI my interpretation shows normal sinusrhythm with a ventricular rate 93 bpm without sign of ischemic change or ectopy. Chest x-ray shows no acute process on my interpretation. Radiologist interprets this and agrees. Left hip x-ray shows a femoral neck fracture on my interpretation. Radiology interprets this and agrees. Urinalysis concerning for UTI so she was given a gram of Rocephin. Discussed with Dr. Manriquez. Will discuss with the hospitalist for admission. Impression: 1. Mechanical fall 2. Left hip fracture 3. UTI Lab Data Attestation: I reviewed the patient's lab results. Labs: Laboratory Results - last 24 hr 09/07/22 09/07/22 09/07/22 17:25 17:25 18:25 WBC 7.8 RBC 3.80 L Hgb 11.7 L Hct 36.0 L MCV 94.7 MCH 30.8 MCHC 32.5 RDW Std Deviation 45.5 H RDW Coeff of Serafin 13.0 Plt Count 296 MPV 9.8 Immature Gran % (Auto) 0.300 Neut % (Auto) 70.1 H Lymph % (Auto) 17.5 L [place] % (Auto) 7.7 Eos % (Auto) 3.8 Baso % (Auto) 0.6 Absolute Neuts (auto) 5.5 Absolute Lymphs (auto) 1.37 Nucleated RBC % 0 Sodium 140 Potassium 4.2 Chloride 111 H Carbon Dioxide 22.0 Anion Gap 7 BUN 21 H Creatinine 0.81 Estim Creat Clear Calc 45.98 Est GFR (MDRD) Af Amer 89 Est GFR (MDRD) Non-Af 73 BUN/Creatinine Ratio 25.9 H Glucose 102 Calcium 8.4 L Urine Color Yellow Urine Clarity Sl. Cloudy Urine pH 6.0 Ur Specific [place] 1.020 Urine Protein 15 H Urine Glucose (UA) Normal Urine Ketones 5 H Urine Occult Blood 50 H Urine Nitrite Positive H Urine Bilirubin Negative Urine Urobilinogen Normal Ur Leukocyte Esterase 25 H Radiography Diagnostic Testing: Clinical Impression(s) from Imaging Studies Chest X-Ray 09/07/22 17:35 IMPRESSION: No radiographic evidence of acute cardiopulmonary disease. Electronically Signed: Janette Levine MD at 18:12 EDT Reading Location ID and State: [place] Paiz MD Tel , Service support , Hip/Pelvis X-Ray 09/07/22 17:35 IMPRESSION: Acute fracture of the left femoral neck. Electronically Signed: Janette Levine MD at 18:06 EDT Reading Location ID and State: [place] Paiz MD Tel , Service support , Discharge Plan Triage Chief Complaint: Lower Extremity Injury ED Provider: Giancarlo Wooten Dx/Rx/DC Orders Prescriptions: No Action cholecalciferol (vitamin D3) [Vitamin D3] 1,000 UNIT tablet 2,000 unit PO DAILY Qty: 30 0RF calcium carbonate 600 MG tablet 600 mg PO DAILY Qty: 30 0RF fluoxetine 20 MG capsule 20 mg PO BID Qty: 60 0RF qkvhrsjn-dqs-ZY-lycopen-lutein [Centrum Silver] 1 EACH tablet 1 ea PO DAILY Qty: 30 0RF cyclobenzaprine 10 MG tablet 5 mg PO TID PRN PRN (Reason: Muscle Spasm) Qty: 0 0RF acetaminophen [Tylenol] 325 MG tablet 650 mg PO Q6H PRN PRN (Reason: Mild Pain (scale 0-3)/T>100.7) Qty: 0 0RF docusate sodium [DOK] 100 MG capsule 200 mg PO BID PRN PRN (Reason: Constipation ) Qty: 0 0RF alum-mag hydroxide-simeth [Mag-Al Plus Extra Strength] 30 ML suspension 30 ml PO Q6H PRN PRN (Reason: Gastric Burning) Qty: 0 0RF alendronate [Fosamax] 70 MG tablet 70 mg PO QWEEK Qty: 1 0RF levothyroxine 112 MCG tablet 88 mcg PO DAILY@0600 Primary Care Provider: Vera Pompa Referrals: Vera Pompa MD [Primary Care Provider] - What to do if you have Problems For any increased pain, shortness of breath, bleeding, nausea or vomiting, chestpain, or any unexpected problems, contact your Primary Care Provider. Call [facility] ([phone]) or report to the closest Emergency Room. Call 911 if necessary. 09/07/221902 <Electronically signed by Giancarlo Wooten DO> Cosigner Signature (if applicable): CC: Dr. Vera Pompa MD ~ Signed [facility] Work Phone: 1(381) 254-853106-27-2023 Discharge summary Author Giancarlo Wooten [facility] September 07, 2022 7:03pm Note Date/Time September 07, 2022 7:01 pm [facility] Medical Records Department [address] [place], [place] [address] [place] [address] Emergency Department Summary 09/07/22 MR#: [id number] Acct: [id number] Name: BRIANNE COCHRAN Rep #:[id number] : 1945 76 From: Giancarlo Wooten DO PCP: Dr. Vera Pompa MD Status:RE G ER Location: ED HPI History of Present Illness Chief Complaint: Lower Extremity Injury Narrative Narrative: 76-year-old female status post mechanical fall after tripping and falling onto her left hip. She is unable to ambulate. She was transported by EMS. Report is that they gave her 200 mcg of fentanyl. Patient still having some pain. Denies hitting head or LOC. She is not on anticoagulation. She has history of right hip fracture distantly. [facility] Medical History Fibromyalgia Osteoporosis Home Medications calcium carbonate 600 mg calcium (1,500 mg) tablet 600 mg PO DAILY ##30 06/19/15[Rx Last Taken Unknown] cholecalciferol (vitamin D3) 25 mcg (1,000 unit) tablet (Vitamin D3) 2,000 unit PO DAILY ##30 06/19/15 [Rx Last Taken Unknown] fluoxetine 20 mg capsule 20 mg PO BID ##60 06/19/15 [Rx Last Taken Unknown] lgesuxsp-jyi-qfgpk acid 0.4 mg-lycopene 300 mcg-lutein 250 mcg tablet (Centrum Silver) 1 ea PO DAILY ##30 06/19/15 [Rx Last Taken Unknown] acetaminophen 325 mg tablet (Tylenol) 650 mg PO Q6H PRN PRN Mild Pain (scale 0-3)/T>100.7 ##0 03/20/16 [Rx Last Taken Unknown] alendronate 70 mg tablet (Fosamax) 70 mg PO QWEEK ##1 03/20/16 [Rx Last Taken Unknown] aluminum-mag hydroxide-simethicone 400 mg-400 mg-40 mg/5 mL oral susp (Mag-Al Plus Extra Strength) 30 ml PO Q6H PRN PRN Gastric Burning ##0 03/20/16 [Rx Last Taken Unknown] cyclobenzaprine 10 mg tablet 5 mg PO TID PRN PRN Muscle Spasm ##0 03/20/16 [Rx Last Taken Unknown] docusate sodium 100 mg capsule (DOK) 200 mg PO BID PRN PRN Constipation ##0 03/20/16 [Rx Last Taken Unknown] levothyroxine 112 mcg tablet 88 mcg PO DAILY@0600 04/29/18 [History Last Taken Unknown] Allergy/AdvReac Type Severity Reaction Status Date / Time codeine Allergy Unknown Verified 09/07/22 17:01 codeine phosphate AdvReac Unknown Verified 09/07/22 17:01 [From Tylenol-Codeine #3] nabumetone [From Relafen] AdvReac Unknown Verified 09/07/22 17:01 naproxen AdvReac Unknown Verified 09/07/22 17:01 Social History Smoking Status: Never smoker ROS ROS ED Constitutional Constitutional ED: Denies chills, fever(s) or sweats Eyes Eyes: Denies blurry vision or change in vision ENT ENT ED: Denies ear pain or sore throat Cardiovascular Cardiovascular: Denies chest pain, palpitations or racing heartbeat Respiratory/Chest Respiratory/Chest: Denies cough, dyspnea or sputum Gastrointestinal Gastrointestinal: Denies abdominal pain, constipation, diarrhea, nausea or vomiting Genitourinary Genitourinary ED: Denies dysuria, hematuria or urinary frequency Musculoskeletal Musculoskeletal: Reports other Details: Pain in left hip Integumentary Denies abscess, Abrasions or rash Neurologic Neurologic: Denies headache(s), paresthesias or weakness Psychiatric Psychiatric: Denies anxiety, depression, suicidal ideation or suicidal thoughts Endocrine Endocrinology: Denies polydipsia or polyuria EXAM Physical Exam Const Vital Signs: 09/07/22 16:57 Temperature 97.5 F L Temperature Source Oral Pulse Rate 94 Respiratory Rate 16 Blood Pressure 159/100 H Blood Pressure Mean 119 Pulse Ox 97 Oxygen Delivery Method Room Air Positive well nourished General Appearance ED: NAD HEENT Reports moist mucous membranes normocephalic and atraumatic Resp normal respiratory effort and no retractions Cardio regular rate and regular rhythm Extremity Extremity Narrative: Tenderness palpation left greater trochanter. Positive logroll on the left. Neuro oriented x3 and CN's II-XII intact bilaterally Sensorium / Orientation: alert Psych mental status grossly normal Skin no wounds MDM MDM MDM Narrative Medical decision making narrative: Patient presenting with left hip pain. She states it was a mechanical fall. Nohead injury or LOC. She is not have any other complaints. CBC was obtained to assess white blood cell count, hemoglobin, platelets, differential. BMP to assess renal function, electrolytes. Urinalysis to assess for UTI. Encinas catheter was placed for patient comfort that she is not can be able to ambulate. Left hip x-ray was obtained as well as a chest x-ray for preoperative planning. EKG was also obtained for this reason. GI my interpretation shows normal sinusrhythm with a ventricular rate 93 bpm without sign of ischemic change or ectopy. Chest x-ray shows no acute process on my interpretation. Radiologist interprets this and agrees. Left hip x-ray shows a femoral neck fracture on my interpretation. Radiology interprets this and agrees. Urinalysis concerning for UTI so she was given a gram of Rocephin. Discussed with Dr. Manriquez. Will discuss with the hospitalist for admission. Impression: 1. Mechanical fall 2. Left hip fracture 3. UTI Lab Data Attestation: I reviewed the patient's lab results. Labs: Laboratory Results - last 24 hr 09/07/22 09/07/22 09/07/22 17:25 17:25 18:25 WBC 7.8 RBC 3.80 L Hgb 11.7 L Hct 36.0 L MCV 94.7 MCH 30.8 MCHC 32.5 RDW Std Deviation 45.5 H RDW Coeff of Serafin 13.0 Plt Count 296 MPV 9.8 Immature Gran % (Auto) 0.300 Neut % (Auto) 70.1 H Lymph % (Auto) 17.5 L [place] % (Auto) 7.7 Eos % (Auto) 3.8 Baso % (Auto) 0.6 Absolute Neuts (auto) 5.5 Absolute Lymphs (auto) 1.37 Nucleated RBC % 0 Sodium 140 Potassium 4.2 Chloride 111 H Carbon Dioxide 22.0 Anion Gap 7 BUN 21 H Creatinine 0.81 Estim Creat Clear Calc 45.98 Est GFR (MDRD) Af Amer 89 Est GFR (MDRD) Non-Af 73 BUN/Creatinine Ratio 25.9 H Glucose 102 Calcium 8.4 L Urine Color Yellow Urine Clarity Sl. Cloudy Urine pH 6.0 Ur Specific [place] 1.020 Urine Protein 15 H Urine Glucose (UA) Normal Urine Ketones 5 H Urine Occult Blood 50 H Urine Nitrite Positive H Urine Bilirubin Negative Urine Urobilinogen Normal Ur Leukocyte Esterase 25 H Radiography Diagnostic Testing: Clinical Impression(s) from Imaging Studies Chest X-Ray 09/07/22 17:35 IMPRESSION: No radiographic evidence of acute cardiopulmonary disease. Electronically Signed: Janette Levine MD at 18:12 EDT Reading Location ID and State: [place] / Tel , Service support , Hip/Pelvis X-Ray 09/07/22 17:35 IMPRESSION: Acute fracture of the left femoral neck. Electronically Signed: Janette Levine MD at 18:06 EDT Reading Location ID and State: [place] / Tel , Service support , Discharge Plan Triage Chief Complaint: Lower Extremity Injury ED Provider: Giancarlo Wooten Dx/Rx/DC Orders Prescriptions: No Action cholecalciferol (vitamin D3) [Vitamin D3] 1,000 UNIT tablet 2,000 unit PO DAILY Qty: 30 0RF calcium carbonate 600 MG tablet 600 mg PO DAILY Qty: 30 0RF fluoxetine 20 MG capsule 20 mg PO BID Qty: 60 0RF yfwzykxf-uvl-DI-lycopen-lutein [Centrum Silver] 1 EACH tablet 1 ea PO DAILY Qty: 30 0RF cyclobenzaprine 10 MG tablet 5 mg PO TID PRN PRN (Reason: Muscle Spasm) Qty: 0 0RF acetaminophen [Tylenol] 325 MG tablet 650 mg PO Q6H PRN PRN (Reason: Mild Pain (scale 0-3)/T>100.7) Qty: 0 0RF docusate sodium [DOK] 100 MG capsule 200 mg PO BID PRN PRN (Reason: Constipation ) Qty: 0 0RF alum-mag hydroxide-simeth [Mag-Al Plus Extra Strength] 30 ML suspension 30 ml PO Q6H PRN PRN (Reason: Gastric Burning) Qty: 0 0RF alendronate [Fosamax] 70 MG tablet 70 mg PO QWEEK Qty: 1 0RF levothyroxine 112 MCG tablet 88 mcg PO DAILY@0600 Primary Care Provider: Vera Pompa Referrals: Vera Pompa MD [Primary Care Provider] - What to do if you have Problems For any increased pain, shortness of breath, bleeding, nausea or vomiting, chestpain, or any unexpected problems, contact your Primary Care Provider. Call [facility] ([phone]) or report to the closest Emergency Room. Call 911 if necessary. 09/07/221902 <Electronically signed by Giancarlo Wooten DO> Cosigner Signature (if applicable): CC: Dr. Vera Pompa MD ~ Signed [facility] Work Phone: 1(154) 499-372705-30-2023 History of Present illness Narrative* Madyson Perry MA - 08/10/2022 2:14 PM EDT POPULATION HEALTH NAVIGATION OUTREACH Action/FYI Patient is on HCC list for below gaps and needs appt to address : G83.9 - Paralysis, unspecified - [id number] Last Billed 06/22/2021
F33.9 - Major depressivedisorder, recurrent episode (HCC) - [id number] Last Billed 12/24/2021
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
Care gaps/appts to address: Well exam COLORECTAL CANCER SCREENING MAMMOGRAM Outcomes: Left message for patient to call me back directly to schedule. no mychart Patient Identified by Name and : NO Outreach Outcome/Action Unable to reach patient: Left message Did you use a PCP flex slot to schedule this appointment? N/A Reason for Outreach HCC or suspected condition Payer: Payor: [email or web address] MEDICARE / Plan: [employer] MEDICARE PPO / [...] done MAMMOGRAM due on 06/24/2022 Navigation Signature: Madyson Perry MA August 10, 2022 2:27 PM [facility]-2023 Miscellaneous Notes* Telephone Encounter - Vera Pompa MD - 04/05/2022 12:03 PM EST OK to refill as ordered Vera Pompa MD * Telephone Encounter - Celso Day LPN - 04/05/2022 12:00 PM EST Patient phones requesting refills as follows: Requested Prescriptions Pending Prescriptions Disp Refills cyclobenzaprine (FLEXERIL) 5 mg tablet [Pharmacy Med Name: CYCLOBENZAPRINE HYDROCHLORIDE 5 MG Tablet] 270 tablet 1 Sig: TAKE 1 TABLET THREE TIMES DAILY NEEDED HEMANT-12/24/21 Labs-07/03/21 NOV-06/24/22 med filled 10/27/21 Please review and advise. Celso Day LPN documented in this encounterK[facility]01-12-2023 Miscellaneous Notes* Telephone Encounter - Lisa Fairchild Ma - 03/25/2022 12:46 PM EST Spoke with pt who agrees to have mailed to home address on file. Lisa Fairchild Ma * Telephone Encounter - Vera Pompa MD - 03/25/2022 11:58 AM EST Rx printed for parking placard Vera Pompa MD * Telephone Encounter - Lisa Fairchild Ma - 03/25/2022 8:30 AM EST Routed to PCP to complete. Will call to see if pt wants mailed to home or supervisor opening and picking, once complete. Lisa Fairchild Ma * Telephone Encounter - Nick Lamar LPN - 03/24/2022 4:09 PM EST Type of form: renewal of disability placard Form received via delivered to wrong providers mailbox When form is completed, contact pt for further instructions. Form has been forwarded to provider's nurse. Nick Lamar LPN documented in this encounterK[facility]11-17-2022 Miscellaneous Notes* Telephone Encounter - Vera Pompa MD - 01/28/2022 3:06 PM EST OK to refill as ordered Vera Pompa MD * Telephone Encounter - Radha Prince - 01/28/2022 2:33 PM EST Patient has been identified by name and [...] and advise. Radha Prince documented in this encounterK[facility]10-13-2022 Instructions* Patient Instructions* Apryl Gorman APRN.CNP - 12/24/2021 11:27 AM EDT Get repeat fasting labs in 6 months, 06/24/2021 Recommend setting a bathroom schedule to see if incontinence improves. Schedule appointment for Mammogram in June. You can consider colonoscopy or stool testing next year. Continue to eat a balanced diet. Follow up in 6 months or sooner as needed. documented in this encounterK[facility]10-13-2022 History of Present illness Narrative* Apryl Gorman APRN.CNP - 12/24/2021 11:00 AM EDT This is a 76 year old female [...] Procedure Laterality Date BREAST BIOPSY Left 12/16/2016 [facility]-Dr. Sandhu DELIVERY ONLY , low transverse x [...] refer to urology, Dr. Chaidez Local to [place]. 8. Encounter for immunization - ICD9: V03.89, ICD10: Z23 - VIS provided. - INFLUENZA SEASONAL QUADRIVALENT HIGH DOSE AGE 65+ Follow-up in 6 months or sooner as needed. Discussed treatment plan and patient voices understanding. Patient's questions answered appropriately. Medications and potential side effects were discussed and patient voices understanding. Apryl Gorman APRN.CNP This note was partially generated using beModel voice recognition system. Note was reviewed for accuracy. There may be minor misspellings or grammar miscues with beModel voice recognition. documented in this encounterK[facility]09-26-2022 Miscellaneous Notes* Telephone Encounter - Luis Enrique Caicedo APRN.CNP - 12/07/2021 6:58 AM EDT The following approved medication requests have been transmitted electronically. Requested Prescriptions Pending Prescriptions Disp Refills omeprazole (PRILOSEC) 20 mg capsule 30 capsule 3 Sig: Take 1 capsule by mouth daily before breakfast. 1/2 hr before meal. Luis Enrique Caicedo APRN.CNP * Telephone Encounter - Nettie Brandt Ma - 12/05/2021 9:33 AM EDT Last office visit: 06/22/21 F/u scheduled: 12/23/21 Nettie Brandt Ma * Telephone Encounter - Millie Sterling - 12/05/2021 9:27 AM EDT Patient has been identified by name and [...] Thank you. Millie Sterling documented in this encounterK[facility]08-16-2022 Miscellaneous Notes* Telephone Encounter - Luis Enrique Caicedo APRN.CNP - 10/27/2021 12:02 PM EDT The following approved medication requests have been transmitted electronically. Requested Prescriptions Pending Prescriptions Disp Refills cyclobenzaprine (FLEXERIL) 5 mg tablet 270 tablet 1 Sig: Take 1 tablet by mouth three times daily as needed. Luis Enrique Caicedo APRN.CNP * Telephone Encounter - Hayley Bridges Ma - 10/27/2021 11:55 AM EDT Patient last visit with PCP 06/22/21 Follow up appointment scheduled 12/23/21 Hayley Bridges Ma * Telephone Encounter - Annetta Baig - 10/27/2021 11:44 AM EDT Patient has been identified by name and date of : Yes Requested Prescriptions Pending Prescriptions Disp Refills cyclobenzaprine (FLEXERIL) 5 mg tablet 270 tablet 1 Sig: Take 1 tablet by mouth three times daily as needed. RX INSTRUCTIONS: Patient aware RX will be sent to pharmacy. No need to notify patient. Annetta Baig documented in this encounterK[facility]-2022 Miscellaneous Notes* Telephone Encounter - Luis Enrique Caicedo APRN.CNP - 10/23/2021 9:51 AM EDT The following approved medication requests have been transmitted electronically. Requested Prescriptions Pending Prescriptions Disp Refills alendronate (FOSAMAX) 70 mg tablet 12 tablet 3 Sig: Take 1 tablet by mouth one time a week. Luis Enrique Caicedo APRN.CNP * Telephone Encounter - Annetta Baig - 10/23/2021 8:23 AM EDT Patient has been identified by name and date of : Yes Requested Prescriptions Pending Prescriptions Disp Refills alendronate (FOSAMAX) 70 mg tablet 12 tablet 3 Sig: Take 1 tablet by mouth one time a week. HEMANT-06/22/21 Labs-07/03/21 NOV-12/23/21 med filled 10/16/20 RX INSTRUCTIONS: Patient aware RX will be sent to pharmacy. No need to notify patient. Annetta Baig documented in this encounterK[facility]07-01-2022 Miscellaneous Notes* Telephone Encounter - Luis Enrique Caicedo APRN.CNP - 09/11/2021 2:24 PM EDT The following approved medication requests have been transmitted electronically. Pending Prescriptions Disp Refills OMEPRAZOLE 20 MG CAPSULE,DELAYED RELEASE 30 capsule 3 Sig: Take 1 capsule by mouth daily before breakfast. 1/2 hr before meal. HENNA: No Luis Enrique Caicedo APRN.CNP * Telephone Encounter - Mandy Wilson Pss - 09/11/2021 1:18 PM EDT Patient has been identified by name and [...] patient. Mandy Wilson Pss documented in this encounterK[facility]06-13-2022 Instructions* Patient Instructions* Shanta Washington APRN.CNP - 08/24/2021 11:20 AM EDT Continue omeprazole [...] in a wedge pillow. documented in this encounterKet[facility]06-13-2022 History of Present illness Narrative* Shanta Washington APRN.CNP - 08/24/2021 11:00 AM EDT CHIEF COMPLAINT: Patient presents with: Heartburn: with sharp chest pain treats with omeprazole This consult was requested by Vera Pompa MD for an opinion regarding heartburn . My final recommendations will be communicated to the requesting health care provider by way of the shared medical record for internal providers or letter via the [employer] for external providers. Brianne Cochran is [...] Procedure Laterality Date BREAST BIOPSY Left 12/16/2016 [facility]-Dr. Sandhu DELIVERY ONLY , low transverse x [...] Education Completed: 10 years Marital Status: to Berny with 3 children Social History Tobacco Use [...] which included preparing to see the patient, [id number] patient care, completing clinical documentation, obtaining and/or reviewing separately obtained history, performing a medically appropriate examination, counseling and educating the pat ient/family/caregiver, ordering medications, tests, or procedures, communicating with other HCPs (not separately reported), independently interpreting results (not separately reported), communicatingresults to the patient/family/caregiver, and care coordination (not separately reported). Shanta Washington APRN.CNP DATE: 08/24/21 TIME: 10:30 AM documented in this encounterK[facility]06-06-2022 Miscellaneous Notes* Telephone Encounter - Vera Pompa MD - 08/17/2021 8:16 AM EDT OK to refill as ordered Vera Pompa MD * Telephone Encounter - Celso Day LPN - 08/17/2021 8:07 AM EDT Patient phones requesting refills as follows: Pending Prescriptions Disp Refills ATORVASTATIN 20 MG TABLET 90 tablet 2 Sig: TAKE 1 TABLET EVERY DAY HENNA: Yes HEMANT-06/22/21 Labs-06/22/21 NOV-12/23/21 med filled 12/24/20 ends Please review and advise. Celso Day LPN documented in this encounterK[facility]05-02-2022 Miscellaneous Notes* Telephone Encounter - SERA Hardin - 07/13/2021 10:44 AM EDT TC to patient who verbalizes understanding of providers message below. No questions at this time. SERA Hardin * Telephone Encounter - Luis Enrique Caicedo APRN.CNP - 07/13/2021 10:35 AM EDT Please inform patient that her vitamin D level is adequate. Continue on current supplement. Her TSHis at target range. Continue on current dose of Levothyroxine. Her complete blood count is normal, no anemia. Cholesterol panel is good. Other labs are fine. Luis Enrique Caicedo APRN.BERNIE documented in this encounterK[facility]04-13-2022 Miscellaneous Notes* Telephone Encounter - Lisa Fairchild Ma - 06/24/2021 3:15 PM EDT Letter mailed to pt notifying her of normal mammogram and recommendation below from PCP. Lisa Fairchild Ma * Telephone Encounter - Vera Pompa MD - 06/24/2021 2:56 PM EDT Please notify patient that her mammogram is normal; recheck in 1 year Vera Pompa MD documented in this encounterKet[facility]04-13-2022 Miscellaneous Notes* Letter - Mammography Coordinator - 06/24/2021 11:05 AM EDT June 24, 2021 PID: [id number] Briannegerardo Cochran [address] [place] [address] Dear Ms. Cochran, We are pleased to [...] be [facility] as part of your permanent medical record and are available for your continuing care. Thank you for allowing us to help in meeting your health care needs. Sincerely, Dr. Diaz Interpreting Radiologist [facility] (Normal over 40) documented in this encounterKettering [facility]04-13-2022 History of Present illness Narrative* Kinjal Fowler Mammo Tech - 06/24/2021 10:10 AM EDT Radiology Service Progress Note PATIENT NAME: Brianne Cochran DATE OF SERVICE: June 24, 2021 TIME: 10:10 AM PATIENT IDENTITY VERIFICATION COMPLETED USING TWO (2) IDENTIFIERS: Name and Date of confirmedby patient verbally. FALL SCREENING: Has the patient had 2 falls in the last year or 1 fall with injury or currently using an Ambulatory Assistive Device (Walker, Cane, Wheelchair, Crutches, etc.)? Yes, Patient High Riskfor Falls What interventions were put in place to prevent falls during this visit? Increased Observations by Caregivers Patient uses a cane PATIENT GENDER DATA: Female. status: : No status: NO. PATIENT RELEVANT IMPLANT DATA REVIEWED: Not Applicable RADIOLOGY DEPARTMENT: Mammography PERIPHERAL IV DATA: Not applicable SIGNED BY: Kinjal Fowler [employer] June 24, 2021 10:10 AM documented in this encounterK[facility]04-11-2022 History of Present illness Narrative* Vera Pompa MD - 06/22/2021 11:40 AM EDT Chief Complaint Patient presents with: 6 Month Exam HPI Brianne Cochran is a 75 year old female who presents here today for 6 month follow up. Denies any bowel or urinary issues. Has been having issues with heartburn, nausea, pain in the upper mid stomach off and on for the past few months. She has tried using Omeprazole which did help, hasonly been taking it when she needs it. Does not get the sx every day. She notices it more at night.She has tried to avoid eating too late [...] and stated she hurt for days so doesn'tthink she wants to do that again. Depression/ALIN: [...] Procedure Laterality Date BREAST BIOPSY Left 12/16/2016 [facility]-Dr. Sandhu DELIVERY ONLY , low transverse x [...] 1 application to affected area twice daily. (Patientnot taking: Reported on 12/17/2020 ) MULTIVITS W-FE,OTHER [...] Past Histories independently gathered by the clinical community support associate and the remaining scribed note accurately describes my personal service to the patient. Medical Decision Making: Problems: Moderate: New problem with uncertain prognosis and 2+ stable chronic illnesses Data: Unique test(s) ordered: 3+ Risk: Moderate: Drug management Medical Decision Making Level: 4 - Moderate Vera Pompa MD The documentation for this note was completed by Nettie Brandt Ma acting as scribe for Vera Pompa MD. June 22, 2021 11:33 AM. Nettie Brandt Ma documented in this encounterK[facility]04-11-2022 Nurse Note* Nettie Brandt Ma - 06/22/2021 11:35 AM EDT Falls Risk Intake: 1. Patient age 65 or over, unsteady, or was advised to use special equipment to aid ambulation (i.e., cane or walker)? Yes 2. Has the patient had two falls in the past year, or one with injury? No 3. Does the patient need to use their hands when pushing up from chair, or hold onto furniture whenambulating at home? Yes 4. Is the patient worried about falling? Yes Please inform patient that answering Yes to one or more of the questions above can increase theirrisk of falling Patient is at greater risk for falls. Falls Instruction: Teaching document below - reviewed and given to patient [facility] - Preventing Falls and Maintaining Balance documented in this encounterKettering Health DaytonConsult note Author Dr. Manriquez [facility] September 07, 2022 8:32pm Note Date/Time September 07, 2022 8:32 pm [facility] Medical Records Department [facility] [place] [address] Consultation - Orthopedics 09/07/222028 MR#: [id number] Acct: [id number] Name: BRIANNE COCHRAN Rep #:[id number] : 1945 76 From: Saúl isaacs DO PCP: Dr. Vera Pompa MD Status:AD M IN Location: MS3 NP102-0 HPI Consult Data Date of Consult: 09/07/22 HPI Narrative Reason for Consultation: Left hip fracture HPI Narrative: BRIANNE COCHRAN, is a 76 F who presents after mechanical fall from standing height onto the left side earlier today. [facility] revealed a comminuted intertrochanteric left femur fracture. Patient was admitted under the service of hospitalist. Saw thepatient in consultation this evening. She denied any head injury or loss consciousness. Denies any other new pain. Denies fevers, chills, nausea vomiting, chest pain or shortness of breath. Patient is a community ambulator with utilization of both a cane and a walker intermittently. She denies any antecedent left hip or groin pain. [facility] Medical History (Updated 09/07/22 @ 19:[address] Yessenia Andres MD) Anxiety and depression Chronic anemia Fibromyalgia GERD (gastroesophageal reflux disease) HLD (hyperlipidemia) Hypothyroid Obesity Osteoporosis PAF (paroxysmal atrial fibrillation) Home Medications alendronate 70 mg tablet 70 mg PO UD 09/07/22 [History Last Taken Unknown] atorvastatin 20 mg tablet 20 mg PO QHS 09/07/22 [History Last Taken Unknown] fluoxetine 40 mg capsule 40 mg PO DAILY 09/07/22 [History Last Taken Unknown] levothyroxine 75 mcg tablet 75 mcg PO DAILY 09/07/22 [History Last Taken Unknown] omeprazole 20 mg capsule,delayed release 20 mg PO DAILY 09/07/22 [History Last Taken Unknown] Allergy/AdvReac Type Severity Reaction Status Date / Time codeine Allergy Unknown Verified 09/07/22 17:01 codeine phosphate AdvReac Unknown Verified 09/07/22 17:01 [From Tylenol-Codeine #3] nabumetone [From Relafen] AdvReac Unknown Verified 09/07/22 17:01 naproxen AdvReac Unknown Verified 09/07/22 17:01 Family History (Updated 09/07/22 @ 19:[address] Yessenia Andres MD) Mother Cancer Father Cancer Surgical History (Updated 09/07/22 @ 19:[address] Yessenia Andres MD) H/O ovarian cystectomy History of section History of total right hip replacement S/P kyphoplasty S/P ORIF (open reduction internal fixation) fracture Social History (Updated 09/07/22 @ 19:[address] Yessenia Andres MD) household members: spouse Smoking Status: Never smoker alcohol intake: never substance use type: does not use ROS ROS Narrative 12 point review systems obtained, negative unless otherwise noted in HPI. Vital Signs Vital Signs Vital Signs: 09/07/22 16:57 09/07/22 19:00 09/07/22 20:03 Temperature 97.5 F L 97 F L Temperature Source Oral Temporal Pulse Rate 94 92 91 Respiratory Rate 16 15 14 Blood Pressure 159/100 H 176/98 H 159/91 H Blood Pressure Mean 119 124 113 Pulse Ox 97 100 92 Oxygen Delivery Method Room Air Room Air Room Air Weight Weight: 165 lb 2.02 oz Body Mass Index (BMI) 30.4 Physical Exam Narrative General -A&Ox3, NAD, appears stated age. Vital signs stable, afebrile. Respiratory -normal work of breathing, no intercostal retractions. CV -pulses regular, brisk capillary refill ?4 limbs. Abdomen-soft, nontender, nondistended. No guarding, rigidity, rebound tenderness. Musculoskeletal/neurologic -full range of motion nontender throughout bilateral upper extremities, right lower extremity with full sensation and strength in alldermatomes and myotomes. No midline cervical tenderness. Left lower extremity-no obvious deformity. Pain with logroll of the left lower extremity. Nontender throughout the left knee femoral shaft, tibial shaft and left foot/ankle. Brisk capillary refill. Sensation intact light touch L3-S1 dermatomes. DF, PF, EHL intact. DP, PT 2+. Pelvis is stable, nontender. Skinis intact without lacerations, abrasions. No ecchymosis noted. Lab / Micro Data Result Diagrams: 09/07/22 17:25 09/07/22 17:25 Labs: Laboratory Results - last 24 hr 09/07/22 17:25: WBC 7.8, RBC 3.80 L, Hgb 11.7 L, Hct 36.0 L, MCV 94.7, MCH 30.8,MCHC 32.5, RDW Std Deviation 45.5 H, RDW Coeff of Serafin 13.0, Plt Count 296, MPV 9.8, Immature Gran % (Auto) 0.300, Neut % (Auto) 70.1 H, Lymph % (Auto) 17.5 L, [place] % (Auto) 7.7, Eos % (Auto) 3.8, Baso % (Auto) 0.6, Absolute Neuts (auto) 5.5, Absolute Lymphs (auto) 1.37, Nucleated RBC % 0 09/07/22 17:25: Sodium 140, Potassium 4.2, Chloride 111 H, Carbon Dioxide 22.0, Anion Gap 7, BUN 21 H, Creatinine 0.81, Estim Creat Clear Calc 45.98, Est GFR (MDRD) Af Amer 89, Est GFR (MDRD) Non-Af 73, BUN/Creatinine Ratio 25.9 H, Glucose 102, Calcium 8.4 L 09/07/22 18:25: Urine Color Yellow, Urine Clarity Sl. Cloudy, Urine pH 6.0, Ur Specific [place] 1.020, Urine Protein 15 H, Urine Glucose (UA) Normal, Urine Ketones 5 H, Urine Occult Blood 50 H, Urine Nitrite Positive H, Urine Bilirubin Negative, Urine Urobilinogen Normal, Ur Leukocyte Esterase 25 H, Urine RBC 0-5 SEEN, Urine WBC 0-5 SEEN, Ur Squamous Epith Cells 0-5 SEEN, Amorphous Sediment 1+ URATE, Urine Bacteria RARE, Urine Mucus 0 SEEN Radiology Impression Chest X-Ray 09/07/22 17:35 IMPRESSION: No radiographic evidence of acute cardiopulmonary disease. Electronically Signed: Janette Levine MD at 18:12 EDT Reading Location ID and State: Keanu Paiz MD Tel , Service support , Hip/Pelvis X-Ray 09/07/22 17:35 IMPRESSION: Acute fracture of the left femoral neck. Electronically Signed: Janette Levine MD at 18:06 EDT Reading Location ID and State: Keanu Paiz MD Tel , Service support , Assessment & Plan Assessment/Plan (1) Hip fracture: PLAN: Patient sustained a left intertrochanteric proximal femur fracture. -Closed, neurovascularly intact -Isolated injury -Recommending surgical intervention in the form of left femur cephalomedullary nailing -I discussed the procedure-its risks, benefits and alternative. Risks include but are not limited to bleeding, infection, loss of life or limb, risk of anesthesia, persistent pain or disability, need for additional surgery, nonunion, malunion, failure of orthopedic hardware, neurovascular injury, DVT orPE. Patient expressed understanding these risks and wished proceed with surgery. -Maintenance IV fluids, clear liquid diet after midnight n.p.o. at 2 hours priorto surgery -Type and screen -2 g Ancef on-call to the OR -Bedrest, heel protectors -Plan to proceed with surgery later today when OR becomes available Thank you for this consultation. 09/07/222031 <Electronically signed by Saúl Manriquez DO> Cosigner Signature (if applicable): CC: Dr. Vera Pompa MD~ Signed [facility] Work Phone: Evaluation note* Diagnosis Episode of recurrent major depressive disorder, unspecified depression episode severity (HCC)- Primary Hyperlipidemia, mixed Mixed hyperlipidemia Other specified hypothyroidism Other osteoporosis without current pathological fracture Vitamin D deficiency Unspecified vitamin D deficiency Heart burn Heartburn Anemia, unspecified type Encounter for screening mammogram for malignant neoplasm of breast Other screening mammogram [facility]* Diagnosis Encounter for screening mammogram for malignant neoplasm of breast Other screening mammogram [facility]* Diagnosis Hyperlipidemia, mixed Mixed hyperlipidemia [facility]* Diagnosis Heart burn Heartburn [facility]* Diagnosis Heart burn Heartburn [facility]* Diagnosis Osteoporosis, unspecified osteoporosis type, unspecified pathological fracture presence [facility]* Diagnosis Primary lateral sclerosis (HCC) Primary lateral sclerosis [facility]* Diagnosis Heart burn Heartburn [facility]* Diagnosis Hyperlipidemia, mixed- Primary Mixed hyperlipidemia [...] single bacterial disease [facility]* Diagnosis Onset Date Resolution Status Hip fracture acute [facility] Work Phone: Evaluation note* Diagnosis Onset Date Resolution Status Acute blood loss anemia acut e Closed intertrochanteric fracture of left femur acute Hip fracture acute [facility] Work Phone: Evaluation note* Diagnosis Onset Date Resolution Status Acute blood loss anemia reso lved Closed intertrochanteric fracture of left femur resolved Hip fracture resolved Fecal incontinence acute Physical debility acute S/P ORIF (open reduction internal fixation) fracture acute Sleep apnea acute Urinary incontinence acute Acute blood loss anemia reso lved Closed intertrochanteric fracture of left femur resolved Fall resolved UTI (urinary tract infection) resolved [facility] Work Phone: Evaluation note* Diagnosis Encounter for screening mammogram for breast cancer [facility]* Diagnosis Osteoporosis, unspecified osteoporosis type, unspecified pathological fracture presence [facility]* Diagnosis Heart burn- Primary Heartburn documented in this encounter [facility] note* Diagnosis Closed fracture of left hip, [...] single bacterial disease [facility]* Diagnosis Primary lateral sclerosis (HCC) Primary lateral sclerosis [facility] noteNo assessment information availableWGreen [facility] Work Phone: Evaluation note* Diagnosis Dizziness- Primary Dizziness and giddiness documented in this encounter [facility] note* Diagnosis Hospital discharge follow-up- Primary Other follow-up examination Vertigo Dizziness and giddiness Bilateral impacted cerumen Impacted cerumen documented in this encounter [facility] note* Diagnosis Hypothyroidism, unspecified type documented in this encounter [facility] note* Diagnosis Hypothyroidism, unspecified type documented in this encounter [facility] note* Diagnosis Hypothyroidism, unspecified type documented in this encounter [facility] note* Diagnosis Bilateral leg edema- Primary Edema Other specified hypothyroidism documented in this encounter [facility] note* Diagnosis Hypothyroidism, unspecified type- Primary Ankle edema, bilateral Hyperlipidemia, mixed Mixed hyperlipidemia Anxiety with depression Osteoporosis, unspecified osteoporosis type, unspecified pathological fracture presence documented in this encounter [facility] note* Diagnosis Hyperlipidemia, mixed Mixed hyperlipidemia documented in this encounter [facility] note* Diagnosis Hyperlipidemia, mixed Mixed hyperlipidemia documented in this encounter [facility] note* Diagnosis Heart burn Heartburn documented in this encounter [facility] note* Diagnosis Primary lateral sclerosis (HCC) Primary lateral sclerosis documented in this encounter [facility] note* Diagnosis Osteoporosis, unspecified osteoporosis type, unspecified pathological fracture presence documented in this encounter [facility] note* Diagnosis Hypothyroidism, unspecified type documented in this encounter [facility] note* Diagnosis Hypothyroidism, unspecified type documented in this encounter [facility] note* Diagnosis Episode of recurrent major depressive disorder, unspecified depression episode severity (HCC) documented in this encounter [facility] note* Diagnosis Closed wedge compression fracture of T12 vertebra, sequela- Primary Gait instability Abnormality of gait documented in this encounter [facility] note* Diagnosis Closed wedge compression fracture of T11 vertebra, initial encounter (HCC) documented in this encounter [facility] note* Diagnosis Primary lateral sclerosis (HCC) Primary lateral sclerosis documented in this encounter [facility] note* Diagnosis Heart burn Heartburn documented in this encounter [facility] note* Diagnosis Encounter for Medicare annual wellness exam- Primary Routine general medical examination at a health care facility Encounter for screening examination for other mental health and behavioral disorders Osteoporosis, unspecified osteoporosis type, unspecified pathological fracture presence Other specified hypothyroidism Anemia, unspecified type Hyperlipidemia, mixed Mixed hyperlipidemia 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 Andres [facility] September 07, 2022 8:17pm Note Date/Time September 07, 2022 7:20 pm [facility] Medical Records Department [address] [place] [address] H&P Exam - Hospitalist 09/07/221912 MR#: [id number] Acct: [id number] Name: BRIANNE COCHRAN Rep #:[id number] : 1945 76 From: Yessenia Andres MD PCP: Dr. Vera Pompa MD Status:RE G ER Location: ED HPI - General General Date of Service: 09/07/22 Chief Complaint: Fall, L hip pain. HPI Narrative The patient is a 76 y/o F w/ PMHx: Chronic normocytic anemia, HLD, GERD, Anxietyand Depression, Hypothyroidism, PAF remotely not on any chronic anticoagulant therapy, Fibromylagia who presents to the [facility] ED on 09/07/22 with history unfortunately chemical fall following tripping and landing on her left hip unable to ambulate with intractable pain prompting EMS call with administration of 200 mcg total of fentanyl while in her pain with no loss of consciousness andnor any history of hitting her head. She does admit to recent several day history of urinary frequency and mild dysuria as well as sensation of incompletely emptying her bladder. Despite recent morphine administration in theED she notes currently pain is severe, sharp, worse with any movement of the left lower extremity, tentative 10. Work-up in the ED included T97.5, heart rate94, respiratory rate 16, BP 159/100, 97% room air, CBC with WC 7.8, hemoglobin 11.7, MCV 94.7, platelet 296 without marked shift, BMP with chloride 111, BUN/creatinine 21/0.81, urinalysis not completely resulted but currently specific remedy 1.020, ketone 5, occult blood 50, positive nitrite, 25 leukocyte Estrace, awaiting urine RBC/WBC/urine bacteria assessment, chest x-ray with no acute cardiopulmonary findings, plain film of the left hip with an acute fracture of the left femoral neck demonstrated, EKG SR without acute evidence ofischemia. In the ED patient ministered morphine 4 mg IV x1, Rocephin 1 g IV x1.ED discussed case with Dr. Manriquez. [facility] Medical History (Updated 09/07/22 @ 19:[address] Yessenia Andres MD) Anxiety and depression Chronic anemia Fibromyalgia GERD (gastroesophageal reflux disease) HLD (hyperlipidemia) Hypothyroid Obesity Osteoporosis PAF (paroxysmal atrial fibrillation) Home Medications alendronate 70 mg tablet 70 mg PO UD 09/07/22 [History Last Taken Unknown] atorvastatin 20 mg tablet 20 mg PO QHS 09/07/22 [History Last Taken Unknown] fluoxetine 40 mg capsule 40 mg PO DAILY 09/07/22 [History Last Taken Unknown] levothyroxine 75 mcg tablet 75 mcg PO DAILY 09/07/22 [History Last Taken Unknown] omeprazole 20 mg capsule,delayed release 20 mg PO DAILY 09/07/22 [History Last Taken Unknown] Allergy/AdvReac Type Severity Reaction Status Date / Time codeine Allergy Unknown Verified 09/07/22 17:01 codeine phosphate AdvReac Unknown Verified 09/07/22 17:01 [From Tylenol-Codeine #3] nabumetone [From Relafen] AdvReac Unknown Verified 09/07/22 17:01 naproxen AdvReac Unknown Verified 09/07/22 17:01 Family History (Updated 09/07/22 @ 19:[address] Yessenia Andres MD) Mother Cancer Father Cancer Surgical History (Updated 09/07/22 @ 19:[address] Yessenia Andres MD) H/O ovarian cystectomy History of section History of total right hip replacement S/P kyphoplasty S/P ORIF (open reduction internal fixation) fracture Social History (Updated 09/07/22 @ 19:[address] Yessenia Andres MD) household members: spouse Smoking Status: Never smoker alcohol intake: never substance use type: does not use ROS ROS Narrative Admission Review of Systems: CONSTITUTIONAL: No weight loss, fever, chills, + weakness or fatigue. HEENT: Eyes: No visual loss, blurred vision, double vision or yellow sclerae. Ears, Nose, Throat: No hearing loss, sneezing, congestion, runny nose or sore throat. SKIN: No rash or itching, lesions, wounds. CARDIOVASCULAR: No chest pain, chest pressure or chest discomfort, palpitations,edema, orthopnea, syncopal events. RESPIRATORY: No shortness of breath, cough or sputum, wheezing, hemoptysis. GASTROINTESTINAL: No anorexia, nausea, vomiting or diarrhea, abdominal pain, melena, BRBPR. GENITOURINARY: + Dysuria, sensation retention/incomplete emptying, frequency. NEUROLOGICAL: No headache, dizziness, syncope, paralysis, ataxia, numbness or tingling in the extremities, focal weakness, change in bowel or bladder control,seizure. MUSCULOSKELETAL: + muscle, back pain, joint pain or stiffness. HEMATOLOGIC: + anemia. LYMPHATICS: No enlarged nodes. No history of splenectomy. PSYCHIATRIC: + history of depression or anxiety. ENDOCRINOLOGIC: No reports of sweating, cold or heat intolerance. No polyuria orpolydipsia. ALLERGIES: No history of asthma, hives, eczema or rhinitis. Vital Signs Vital Signs Vital Signs: 09/07/22 16:57 Temperature 97.5 F L Temperature Source Oral Pulse Rate 94 Respiratory Rate 16 Blood Pressure 159/100 H Blood Pressure Mean 119 Pulse Ox 97 Oxygen Delivery Method Room Air Weight Weight: 165 lb 2.02 oz Body Mass Index (BMI) 30.4 Physical Exam Narrative Physical Examination: General: Awake, alert, oriented x 3 and cooperative, laying in the ED bed, uncomfortable appearing, reporting 10 of 10 left hip pain. Skin: Normal color, normal turgor, no icterus, no cyanosis. HEENT: AT/NC, EOMI, PERRLA, mildly dry MM, no carotid bruits or JVD noted. Lungs: Mildly diminished, greater bases, proper effort, no rales, ronchi or wheezing. Heart: Currently regular rate and rhythm; no gallop, rub audible. Abdomen: Soft, obese, NTTP, ND, normal BS, no HSM. Extremities: No cyanosis, no clubbing, peripheral pulses intact, status post fall with left hip fracture with external rotation noted. Neurological: Patient awake, alert, oriented as noted, cognitive function intact; pupils equally reactive to light and accommodation, cranial nerves grossly normal, moving extremities however limited left lower extremity given recent fall with hip fracture, accordingly strength severely globally decreased. Psychiatric: Affect appears uncomfortable, no acute evidence of depressive or anxiety feelings but does have underlying history. Results Lab / Micro Data Result Diagrams: 09/07/22 17:25 09/07/22 17:25 Labs: Laboratory Results - last 24 hr 09/07/22 17:25: WBC 7.8, RBC 3.80 L, Hgb 11.7 L, Hct 36.0 L, MCV 94.7, MCH 30.8,MCHC 32.5, RDW Std Deviation 45.5 H, RDW Coeff of Serafin 13.0, Plt Count 296, MPV 9.8, Immature Gran % (Auto) 0.300, Neut % (Auto) 70.1 H, Lymph % (Auto) 17.5 L, [place] % (Auto) 7.7, Eos % (Auto) 3.8, Baso % (Auto) 0.6, Absolute Neuts (auto) 5.5, Absolute Lymphs (auto) 1.37, Nucleated RBC % 0 09/07/22 17:25: Sodium 140, Potassium 4.2, Chloride 111 H, Carbon Dioxide 22.0, Anion Gap 7, BUN 21 H, Creatinine 0.81, Estim Creat Clear Calc 45.98, Est GFR (MDRD) Af Amer 89, Est GFR (MDRD) Non-Af 73, BUN/Creatinine Ratio 25.9 H, Glucose 102, Calcium 8.4 L 09/07/22 18:25: Urine Color Yellow, Urine Clarity Sl. Cloudy, Urine pH 6.0, Ur Specific [place] 1.020, Urine Protein 15 H, Urine Glucose (UA) Normal, Urine Ketones 5 H, Urine Occult Blood 50 H, Urine Nitrite Positive H, Urine Bilirubin Negative, Urine Urobilinogen Normal, Ur Leukocyte Esterase 25 H, Urine RBC 0-5 SEEN, Urine WBC 0-5 SEEN, Ur Squamous Epith Cells 0-5 SEEN, Amorphous Sediment 1+ URATE, Urine Bacteria RARE, Urine Mucus 0 SEEN Radiology Impression Chest X-Ray 09/07/22 17:35 IMPRESSION: No radiographic evidence of acute cardiopulmonary disease. Electronically Signed: Janette Levine MD at 18:12 EDT Reading Location ID and State: Keanu Paiz MD Tel , Service support , Hip/Pelvis X-Ray 09/07/22 17:35 IMPRESSION: Acute fracture of the left femoral neck. Electronically Signed: Janette Levine MD at 18:06 EDT Reading Location ID and State: Keanu Paiz MD Tel , Service support , Assessment & Plan Assessment/Plan (1) Hip fracture: PLAN: Plan The patient is a 76 y/o F w/ PMHx: Chronic normocytic anemia, HLD, GERD, Anxietyand Depression, Hypothyroidism, PAF remotely not on any chronic anticoagulant therapy, Fibromylagia who presents to the [facility] ED on 09/07/22 with history unfortunately chemical fall following tripping and landing on her left hip unable to ambulate with intractable pain prompting EMS call with administration of 200 mcg total of fentanyl while in her pain with no loss of consciousness andnor any history of hitting her head. #1. General debility, left hip pain s/p mechanical fall w/ left femoral neck fracture: Plain film noting left femoral neck. Orthopedic surgery consulted from ED. Will admit to MS, maintain NPO after midnight, continue gentle IVFs, pending UCx w/ concern UTI, continue treatment as noted #2, necinas placement, monitor I/Os, frequent positioning, fall precautions, as needed pain, anti-emetic regimen. PT/OT following operative intervention. CM consulted for discharge planning. Per surgical risk calculator given patient's underlying history, ED evaluation including imaging and EKG would consider patient appropriate risk to proceed to operative intervention. EKG with SR without acute findings. Labs baseline stable. No history of chest pain or dyspnea, able to perform normal activities limited only by arthritic disease and fibromyalgia. Discussed case and agreementwith progression with orthopedic surgery. #2. Acute Urinary Tract Infection: UA upon ED evaluation remarkable although full urinalysis is pending but suspicion, pending UCx, will continue IVFs, monitor I/Os, continue IV Rocephin w/ transition as able pending sensitivities and speciation. #3. Elevated BP without hypertensive diagnosis: Significantly elevated BP upon presentation, likely pain related, will continue closely monitor and add regimenif appropriate, as needed IV hydralazine in interim. #4. Hypothyroidism: We will continue patient on levothyroxine regimen. #5. Hyperlipidemia: We will continue patient on statin therapy. #6. History remote PAF: Patient not on any rate or rhythm agent, not anticoagulated possibly secondary to high fall risk, noted history remotely, most recent echocardiogram noted 2012 but again she has had no recurrence, echo with normal LV size, LV systolic function normal, EF 55%, mild SANKET, mild TVI. #7. Obesity: Weight loss and lifestyle changes encouraged. #8. GERD: We will continue patient home PPI. #9. Chronic normocytic anemia: Admission hemoglobin 11.7, MCV 94.7, baseline hemoglobin appears primarily 10-11 although most recent prior noted 03/17/2016 13.2, has vacillated over the years, will continue to trend. #10. Anxiety and depression: We will continue patient home fluoxetine home regimen. #11. DVT prophylaxis: SCDs, defer chemoprophylaxis for planned operative intervention. #12. CODE status: Patient does not have healthcare power of Tenterer in place however she does have a living will set up. Her who is present regardless she notes would be her decision-maker if she was unable. Discussed CODE status at length including difference between FULL code, DNR-CCA and DNR-CCstatus. Following discussions about the differences in these status, requested Full Code status. Advanced Care Planning Face to Face Time: 16 minutes. Admission Evaluation Time spent evaluating chart, patient history, patient evaluation, care planning and discussion with specialists: 75 minutes. Charges/Coding Visit Charges Inpatient E&M: 50840 Init Hosp L3 Procedures Hospitalists Procedures: 88036 Advncd Care Plan 30 Min 09/07/222016 <Electronically signed by Yessenia Andres MD> Cosigner Signature (if applicable): CC: Dr. Yessenia Andres MD; Dr. Vera Pompa MD~ Signed [facility] Work Phone: Hospital Discharge instructions Additional Instructions This may be secondary to vertigo which is where your balance center is off. You can use Antivert to help improve those symptoms. You can use it up to 3 times a day as needed. If you do not need it you need to take it at all. If not improving follow-up your primary care physician.[facility] Work Phone: Hospital Discharge instructions Additional Instructions Discharge home with 05/25/2024, [facility] PT/OT/ST.[facility] Work Phone: Hospital Discharge instructionsAdditional Instructions Tylenol and/or ibuprofen for pain and swelling. Ice and elevate your right knee is much as possible to decrease pain and swelling also your right buttock area. Follow-up with your doctor if not improving but the x-rays tonight showed no fracture of either the hip, pelvis or right knee. The swelling in the right knee may take several weeks to go away. If it is not improving follow-up.[facility] Work Phone: Reason for referral (narrative)* Diagnostic Procedure Only (Routine) - Authorized Specialty Diagnoses / Procedures Referred By Contac t Referred To Contact BR IMAGING Diagnoses Encounter for screening mammogram for malignant neoplasm of breast Procedures GENOVEVA SCREENING SCREENING MAMMOGRAPHY BI 2-VIEW BREAST INC Vera Mobley MD [address] [place] [address] [facility] [address] [place] [address] Referral ID Status Reason Start Date Expiration Date Visits Requested Visits Authorized [id number] Authorized Auto-Generat ed Referral 06/22/2021 07/22/2022 1 1 * Consult, Test, Treat (Routine) - Authorized Specialty Diagnoses / Procedures Referred By Farshad t Referred To Contact Gastroenterology Diagnoses Heart burn Procedures CONSULT TO GASTROENTEROLOGY OFFICE/OUTPATIENT REPLACED BY [facility] MDM 60-74 MINUTES Vera Pompa MD [address] [place] [id number] Referral ID Status Reason Start Date Expiration Date Visits Requested Visits Authorized [id number] Authorized PCP Requested Referral 06/22/2021 06/22/2022 1 1 [facility] for referral (narrative)* Diagnostic Procedure Only (Routine) - Closed Specialty Diagnoses / Procedures Referred By Farshad t Referred To Contact BR IMAGING Diagnoses Encounter for screening mammogram for malignant neoplasm of breast Procedures GENOVEVA SCREENING SCREENING MAMMOGRAPHY BI 2-VIEW BREAST INC Vera Mobley MD [address] [place] [address] [facility] Imaging [address] [place] [address] Referral ID Status Reason Start Date Expiration Date V isits Requested Visits Authorized [id number] Closed Auto-Generate d Referral 06/22/2021 07/22/2022 1 1 [facility] for referral (narrative)* Diagnostic Procedure Only (Routine) - Pending Review Specialty Diagnoses / Procedures Referred By Farshad t Referred To Contact BR IMAGING Diagnoses Encounter for screening mammogram for malignant neoplasm of breast Procedures GENOVEVA SCREENING SCREENING MAMMOGRAPHY BI 2-VIEW BREAST INC Apryl Burris, [facility] [address] [place] [address] [facility] Imaging [address] [place] [address] Referral ID Status Reason Start Date Expiration Date Visits Requested Visits Authorized [id number] Pending Review Auto-Generat ed Referral 06/24/2022 01/23/2023 1 1 [facility] for referral (narrative)* Diagnostic Procedure Only (Routine) - Pending Review Specialty Diagnoses / Procedures Referred By Farshad huggins Referred To Contact BR IMAGING Diagnoses Encounter for screening mammogram for breast cancer Procedures GENOVEVA SCREENING SCREENING MAMMOGRAPHY BI 2-VIEW BREAST INC Vera Mobley MD [address] [place] [address] [facility] [address] [place] [address] Referral ID Status Reason Start Date Expiration Date Visits Requested Visits Authorized [id number] Pending Review Auto-Generat ed Referral 12/01/2022 12/31/2023 1 1 T [facility] for visit Narrative* Diagnostic Procedure Only (Routine) - Closed Specialty Diagnoses / Procedures Referred By Farshad huggins Referred To Contact BR IMAGING Diagnoses Encounter for screening mammogram for malignant neoplasm of breast Procedures GENOVEVA SCREENING SCREENING MAMMOGRAPHY BI 2-VIEW BREAST INC Vera Mobley MD [address] [place] [address] [facility] Imaging [address] [place] [address] Referral ID Status Reason Start Date Expiration Date V isits Requested Visits Authorized [id number] Closed Auto-Generate d Referral 06/22/2021 07/22/2022 [facility] Diagnostic Procedure Only (Routine) - Closed Specialty Diagnoses / Procedures Referred By Contac t Referred To Contact XR IMAGING Diagnoses Closed wedge compression fracture of T11 vertebra, initial encounter ([facility]) Procedures XR THORACO LUMBAR JUNCT 2V AP/LAT RADEX SPINE THORACOLUMBAR JUNCTION MIN 2 VIEWS Cynthia Tomas PA-C [address] [place] [address] Phone: tel: fax: [place] [phone] Referral ID Status Reason Start Date Expiration Date V isits Requested Visits Authorized [id number] Closed Auto-Generate d Referral 05/07/2024 06/06/2025 1 1 [facility] Chief Complaint and Reason for Visit Chief Complaint LOWER FALL, L HIP FRACTURE Reason for Visit Hip fracture Chief Complaint LOWER FALL, L HIP FRACTURE FALL, L HIP FRACTURE FALL, L HIP FRACTURE FALL, L HIP FRACTURE Reason for Visit Acute blood loss ane clint Closed intertrochanteric fracture of left femur Hip fracture Chief Complaint LOWER FALL, L HIP FRACTURE FALL, L HIP FRACTURE FALL, L HIP FRACTURE FALL, L HIP FRACTURE left hip fracture LT FEMUR DISPLACED FX L HIP FX/RX HERE Reason for Visit Acute blood loss ane clint Closed intertrochanteric fracture of left femur Hip fracture Fecal incontinence Physical debility S/P ORIF (open reduction internal fixation) fracture Sleep apnea Urinary incontinence Acute blood loss anemia Closed intertrochanteric fracture of left femur Fall UTI (urinary tract infection) Chief Complaint DIZZINESS Chief Complaint Admit Date FALL May 05, 2024 3:03pm RIB FRACTURES May 09, 2024 9:36pm Reason for Visit Admit Date BPPV (benign paroxysmal positional verti go) May 09, 2024 9:36pm Debility May 09, 2024 9:36pm Depression May 09, 2024 9:36pm GERD (gastroesophageal reflux disease) F ebruary 2024 9:36pm HLD (hyperlipidemia) May 09, 2024 9:36pm Hypothyroid May 09, 2024 9:36pm Migraines May 09, 2024 9:36pm Osteoporosis May 09, 2024 9:36pm Compression fracture of T11 vertebra Feb ruary 2024 9:36pm Multiple rib fractures May 09 9:36pm Chief Complaint Admit Date FALL May 05, 2024 3:03pm RIB FRACTURES May 09, 2024 9:36pm NOSEBLEED August 21, 2024 3:44 pm Reason for Visit Admit Date Debility May 09, 2024 9:36pm Depression May 09, 2024 9:36pm GERD (gastroesophageal reflux disease) F ebruary 2024 9:36pm HLD (hyperlipidemia) May 09, 2024 9:36pm Hypothyroid May 09, 2024 9:36pm Osteoporosis May 09, 2024 9:36pm BPPV (benign paroxysmal positional verti go) May 09, 2024 9:36pm Migraines May 09, 2024 9:36pm Compression fracture of T11 vertebra Feb ruary 2024 9:36pm Multiple rib fractures May 09 9:36pm Chief Complaint Admit Date RIB FRACTURES May 09, 2024 9:36pm NOSEBLEED August 21, 2024 3:44 pm fall September 13, 2024 2:54p m Family History No Family History Records Found Relationship Condition Age at Onset Recorded Date/T loly mother Malignant neoplasm Unknown father Malignant neoplasm Unknown Advance Directives No Advanced Directives Records Found Advance Directive Response Recorded Date/ Time Advance Directives Yes March 17, 2016 12:38pm Living Will Yes September 07, 2022 5:01pm Power of Tenterer No September 07 5:01pm Advance Directive Response Recorded Date/ Time Advance Directives Yes March 17, 2016 12:38pm Living Will Yes September 07, 2022 9:18pm Power of Tenterer No September 07 9:18pm Advance Directive Response Recorded Date/ Time Name of Medical Power of Tenterer Berny Summerset September 13, 2022 3:25pm Advance Directives Yes March 17, 2016 12:38pm Living Will Yes September 13, 2022 3 :25pm Power of Tenterer Yes September 13, 2022 3:25pm Advance Directive Response Recorded Date/ Time Advance Directives Yes March 17, 2016 12:38pm Living Will Yes May 25, 2023 12:48pm Power of Tenterer Yes May 24 12:48pm Name of Medical Power of Tenterer . May 25, 2023 12:48pm Date Activated Date Inactivated Comments 05/06/2024 12:04 AM 05/10/2024 12:16 AM Question Answer Comments Full Code Order Discussed With: Patient Advance Directive Response Recorded Date/ Time Living Will Yes May 10 2:54pm Power of Tenterer Yes May 10, 2024 2:54pm Name of Medical Power of Tenterer BERNY COCHRAN, May 10, 2024 2:54pm Living Will No May 05 4:32pm Power of Tenterer Yes May 05, 2024 4:32pm Name of Medical Power of Tenterer Berny contreras May 05, 2024 4:32pm Advance Directives Yes March 17, 2016 12:38pm Date Activated Date Inactivated Comments 05/06/2024 12:04 AM 05/10/2024 12:16 AM Question Answer Comments Full Code Order Discussed With: Patient Advance Directive Response Recorded Date/ Time Living Will Yes May 10 2:54pm Do you have a Healthcare Pow er of Tenterer? Yes May 10, 2024 2:54pm Name of Medical Power of Tenterer BERNY COCHRAN, May 10, 2024 2:54pm Living Will No May 05 4:32pm Do you have a Healthcare Pow er of Tenterer? Yes May 05, 2024 4:32pm Name of Medical Power of Tenterer Berny contreras May 05, 2024 4:32pm Do you have a Healthcare Pow er of Tenterer? No August 21, 2024 4:17pm Advance Directives Yes March 17, 2016 12:38pm Advance Directive Response Recorded Date/ Time Living Will Yes May 10 2:54pm Do you have a Healthcare Pow er of Tenterer? Yes May 10, 2024 2:54pm Name of Medical Power of Tenterer BERNY COCHRAN, May 10, 2024 2:54pm Do you have a Healthcare Pow er of Tenterer? No August 21, 2024 4:17pm Do you have a Healthcare Pow er of Tenterer? No September 13, 2024 2:54pm Advance Directives Yes March 17, 2016 12:38pm Reason for Referral Specialty Diagnoses / Procedures Referred By Contac t Referred To Contact Ent - Otolaryngology Diagnoses Bilateral impacted cerumen Procedures CONSULT TO ENT OFFICE/OUTPATIENT NEW HIGH MDM 60 MINUTES Apryl Gorman APRN.AUTOMATION ANALYST [address] [place] [address] Referral ID Status Reason Start Date Expiration Date Visits Requested Visits Authorized [id number] Authorized PCP Requested Referral 05/30/2023 05/29/2024 1 1 Specialty Diagnoses / Procedures Referred By Contac t Referred To Contact Diagnoses Bilateral impacted cerumen Apryl Gorman APRN.AUTOMATION ANALYST [address] [place] [address] Referral ID Status Reason Start Date Expiration Date Visits Re quested Visits Authorized [id number] Closed 1 1 Summary Purpose Additional Source Comments Source Comments (unrecognize d section and content) In the event this informatio n is protected by the Federal Confidentiality of Alcohol and Drug Abuse Patient Records regulations: The Federal rules restrict any use of the information to criminally investigate or prosecute any alcohol or drug abuse patient.[facility] the event this information is protected by the Federal Confidentiality of Alcohol and Drug Abuse Patient Records regulations: The Federal rules restrict any use of the information to criminally investigate or prosecute any alcohol or drug abuse patient.[facility] the event this information is protected by the Federal Confidentiality of Alcohol and Drug Abuse Patient Records regulations: The Federal rules restrict any use of the information to criminally investigate or prosecute any alcohol or drug abuse patient.[facility] the event this information is protected by the Federal Confidentiality of Alcohol and Drug Abuse Patient Records regulations: The Federal rules restrict any use of the information to criminally investigate or prosecute any alcohol or drug abuse patient.[facility] the event this information is protected by the Federal Confidentiality of Alcohol and Drug Abuse Patient Records regulations: The Federal rules restrict any use of the information to criminally investigate or prosecute any alcohol or drug abuse patient.[facility] the event this information is protected by the Federal Confidentiality of Alcohol and Drug Abuse Patient Records regulations: The Federal rules restrict any use of the information to criminally investigate or prosecute any alcohol or drug abuse patient.[facility] the event this information is protected by the Federal Confidentiality of Alcohol and Drug Abuse Patient Records regulations: The Federal rules restrict any use of the information to criminally investigate or prosecute any alcohol or drug abuse patient.[facility] the event this information is protected by the Federal Confidentiality of Alcohol and Drug Abuse Patient Records regulations: The Federal rules restrict any use of the information to criminally investigate or prosecute any alcohol or drug abuse patient.[facility] the event this information is protected by the Federal Confidentiality of Alcohol and Drug Abuse Patient Records regulations: The Federal rules restrict any use of the information to criminally investigate or prosecute any alcohol or drug abuse patient.[facility] the event this information is protected by the Federal Confidentiality of Alcohol and Drug Abuse Patient Records regulations: The Federal rules restrict any use of the information to criminally investigate or prosecute any alcohol or drug abuse patient.[facility] the event this information is protected by the Federal Confidentiality of Alcohol and Drug Abuse Patient Records regulations: The Federal rules restrict any use of the information to criminally investigate or prosecute any alcohol or drug abuse patient.[facility] the event this information is protected by the Federal Confidentiality of Alcohol and Drug Abuse Patient Records regulations: The Federal rules restrict any use of the information to criminally investigate or prosecute any alcohol or drug abuse patient.[facility] DaytonIn the event this information is protected by the Federal Confidentiality of Alcohol and Drug Abuse Patient Records regulations: The Federal rules restrict any use of the information to criminally investigate or prosecute any alcohol or drug abuse patient.[facility] DaytonIn the event this information is protected by the Federal Confidentiality of Alcohol and Drug Abuse Patient Records regulations: The Federal rules restrict any use of the information to criminally investigate or prosecute any alcohol or drug abuse patient.[facility] DaytonIn the event this information is protected by the Federal Confidentiality of Alcohol and Drug Abuse Patient Records regulations: The Federal rules restrict any use of the information to criminally investigate or prosecute any alcohol or drug abuse patient.[facility] DaytonIn the event this information is protected by the Federal Confidentiality of Alcohol and Drug Abuse Patient Records regulations: The Federal rules restrict any use of the information to criminally investigate or prosecute any alcohol or drug abuse patient.[facility] DaytonIn the event this information is protected by the Federal Confidentiality of Alcohol and Drug Abuse Patient Records regulations: The Federal rules restrict any use of the information to criminally investigate or prosecute any alcohol or drug abuse patient.[facility] DaytonIn the event this information is protected by the Federal Confidentiality of Alcohol and Drug Abuse Patient Records regulations: The Federal rules restrict any use of the information to criminally investigate or prosecute any alcohol or drug abuse patient.[facility] DaytonIn the event this information is protected by the Federal Confidentiality of Alcohol and Drug Abuse Patient Records regulations: The Federal rules restrict any use of the information to criminally investigate or prosecute any alcohol or drug abuse patient.[facility] DaytonIn the event this information is protected by the Federal Confidentiality of Alcohol and Drug Abuse Patient Records regulations: The Federal rules restrict any use of the information to criminally investigate or prosecute any alcohol or drug abuse patient.[facility] DaytonIn the event this information is protected by the Federal Confidentiality of Alcohol and Drug Abuse Patient Records regulations: The Federal rules restrict any use of the information to criminally investigate or prosecute any alcohol or drug abuse patient.[facility] DaytonIn the event this information is protected by the Federal Confidentiality of Alcohol and Drug Abuse Patient Records regulations: The Federal rules restrict any use of the information to criminally investigate or prosecute any alcohol or drug abuse patient.[facility] the event this information is protected by the Federal Confidentiality of Alcohol and Drug Abuse Patient Records regulations: The Federal rules restrict any use of the information to criminally investigate or prosecute any alcohol or drug abuse patient.[facility] DaytonIn the event this information is protected by the Federal Confidentiality of Alcohol and Drug Abuse Patient Records regulations: The Federal rules restrict any use of the information to criminally investigate or prosecute any alcohol or drug abuse patient.[facility] DaytonIn the event this information is protected by the Federal Confidentiality of Alcohol and Drug Abuse Patient Records regulations: The Federal rules restrict any use of the information to criminally investigate or prosecute any alcohol or drug abuse patient.[facility] DaytonIn the event this information is protected by the Federal Confidentiality of Alcohol and Drug Abuse Patient Records regulations: The Federal rules restrict any use of the information to criminally investigate or prosecute any alcohol or drug abuse patient.[facility] DaytonIn the event this information is protected by the Federal Confidentiality of Alcohol and Drug Abuse Patient Records regulations: The Federal rules restrict any use of the information to criminally investigate or prosecute any alcohol or drug abuse patient.[facility] DaytonIn the event this information is protected by the Federal Confidentiality of Alcohol and Drug Abuse Patient Records regulations: The Federal rules restrict any use of the information to criminally investigate or prosecute any alcohol or drug abuse patient.[facility] DaytonIn the event this information is protected by the Federal Confidentiality of Alcohol and Drug Abuse Patient Records regulations: The Federal rules restrict any use of the information to criminally investigate or prosecute any alcohol or drug abuse patient.[facility] DaytonIn the event this information is protected by the Federal Confidentiality of Alcohol and Drug Abuse Patient Records regulations: The Federal rules restrict any use of the information to criminally investigate or prosecute any alcohol or drug abuse patient.[facility] DaytonIn the event this information is protected by the Federal Confidentiality of Alcohol and Drug Abuse Patient Records regulations: The Federal rules restrict any use of the information to criminally investigate or prosecute any alcohol or drug abuse patient.[facility] DaytonIn the event this information is protected by the Federal Confidentiality of Alcohol and Drug Abuse Patient Records regulations: The Federal rules restrict any use of the information to criminally investigate or prosecute any alcohol or drug abuse patient.[facility] DaytonIn the event this information is protected by the Federal Confidentiality of Alcohol and Drug Abuse Patient Records regulations: The Federal rules restrict any use of the information to criminally investigate or prosecute any alcohol or drug abuse patient.[facility] DaytonIn the event this information is protected by the Federal Confidentiality of Alcohol and Drug Abuse Patient Records regulations: The Federal rules restrict any use of the information to criminally investigate or prosecute any alcohol or drug abuse patient.[facility] DaytonIn the event this information is protected by the Federal Confidentiality of Alcohol and Drug Abuse Patient Records regulations: The Federal rules restrict any use of the information to criminally investigate or prosecute any alcohol or drug abuse patient.[facility] DaytonIn the event this information is protected by the Federal Confidentiality of Alcohol and Drug Abuse Patient Records regulations: The Federal rules restrict any use of the information to criminally investigate or prosecute any alcohol or drug abuse patient.[facility] DaytonIn the event this information is protected by the Federal Confidentiality of Alcohol and Drug Abuse Patient Records regulations: The Federal rules restrict any use of the information to criminally investigate or prosecute any alcohol or drug abuse patient.[facility] DaytonIn the event this information is protected by the Federal Confidentiality of Alcohol and Drug Abuse Patient Records regulations: The Federal rules restrict any use of the information to criminally investigate or prosecute any alcohol or drug abuse patient.[facility] DaytonIn the event this information is protected by the Federal Confidentiality of Alcohol and Drug Abuse Patient Records regulations: The Federal rules restrict any use of the information to criminally investigate or prosecute any alcohol or drug abuse patient.[facility] DaytonIn the event this information is protected by the Federal Confidentiality of Alcohol and Drug Abuse Patient Records regulations: The Federal rules restrict any use of the information to criminally investigate or prosecute any alcohol or drug abuse patient.[facility] DaytonIn the event this information is protected by the Federal Confidentiality of Alcohol and Drug Abuse Patient Records regulations: The Federal rules restrict any use of the information to criminally investigate or prosecute any alcohol or drug abuse patient.[facility] DaytonIn the event this information is protected by the Federal Confidentiality of Alcohol and Drug Abuse Patient Records regulations: The Federal rules restrict any use of the information to criminally investigate or prosecute any alcohol or drug abuse patient.[facility] DaytonIn the event this information is protected by the Federal Confidentiality of Alcohol and Drug Abuse Patient Records regulations: The Federal rules restrict any use of the information to criminally investigate or prosecute any alcohol or drug abuse patient.[facility] DaytonIn the event this information is protected by the Federal Confidentiality of Alcohol and Drug Abuse Patient Records regulations: The Federal rules restrict any use of the information to criminally investigate or prosecute any alcohol or drug abuse patient.[facility] DaytonIn the event this information is protected by the Federal Confidentiality of Alcohol and Drug Abuse Patient Records regulations: The Federal rules restrict any use of the information to criminally investigate or prosecute any alcohol or drug abuse patient.[facility] DaytonIn the event this information is protected by the Federal Confidentiality of Alcohol and Drug Abuse Patient Records regulations: The Federal rules restrict any use of the information to criminally investigate or prosecute any alcohol or drug abuse patient.[facility] DaytonIn the event this information is protected by the Federal Confidentiality of Alcohol and Drug Abuse Patient Records regulations: The Federal rules restrict any use of the information to criminally investigate or prosecute any alcohol or drug abuse patient.[facility] DaytonIn the event this information is protected by the Federal Confidentiality of Alcohol and Drug Abuse Patient Records regulations: The Federal rules restrict any use of the information to criminally investigate or prosecute any alcohol or drug abuse patient.[facility] DaytonIn the event this information is protected by the Federal Confidentiality of Alcohol and Drug Abuse Patient Records regulations: The Federal rules restrict any use of the information to criminally investigate or prosecute any alcohol or drug abuse patient.[facility] DaytonIn the event this information is protected by the Federal Confidentiality of Alcohol and Drug Abuse Patient Records regulations: The Federal rules restrict any use of the information to criminally investigate or prosecute any alcohol or drug abuse patient.[facility] DaytonIn the event this information is protected by the Federal Confidentiality of Alcohol and Drug Abuse Patient Records regulations: The Federal rules restrict any use of the information to criminally investigate or prosecute any alcohol or drug abuse patient.[facility] DaytonIn the event this information is protected by the Federal Confidentiality of Alcohol and Drug Abuse Patient Records regulations: The Federal rules restrict any use of the information to criminally investigate or prosecute any alcohol or drug abuse patient.[facility] DaytonIn the event this information is protected by the Federal Confidentiality of Alcohol and Drug Abuse Patient Records regulations: The Federal rules restrict any use of the information to criminally investigate or prosecute any alcohol or drug abuse patient.[facility] DaytonIn the event this information is protected by the Federal Confidentiality of Alcohol and Drug Abuse Patient Records regulations: The Federal rules restrict any use of the information to criminally investigate or prosecute any alcohol or drug abuse patient.[facility] DaytonIn the event this information is protected by the Federal Confidentiality of Alcohol and Drug Abuse Patient Records regulations: The Federal rules restrict any use of the information to criminally investigate or prosecute any alcohol or drug abuse patient.[facility] DaytonIn the event this information is protected by the Federal Confidentiality of Alcohol and Drug Abuse Patient Records regulations: The Federal rules restrict any use of the information to criminally investigate or prosecute any alcohol or drug abuse patient.[facility] DaytonIn the event this information is protected by the Federal Confidentiality of Alcohol and Drug Abuse Patient Records regulations: The Federal rules restrict any use of the information to criminally investigate or prosecute any alcohol or drug abuse patient.[facility] Reason for Visit (unrecogniz ed section and content) Reason Comments 6 Month Exam Reason Comments Results Reason Comments Refill Request Reason Comments 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 Specialty Diagnoses / Procedures Referred By Farshad t Referred To Contact Gastroenterology Diagnoses Heart burn Procedures CONSULT TO GASTROENTEROLOGY OFFICE/OUTPATIENT REPLACED BY [facility] MDM 60-74 MINUTES Vera Pompa MD [address] [place] [address] Referral ID Status Reason Start Date Expiration Date V isits Requested Visits Authorized [id number] Closed PCP Requested Referral 06/22/2021 06/22/2022 1 [...] Comments Follow Up 3 month follow up Reason Comments Follow Up ER follow up Reason Onset Date Comments Refill Request 06/07/2023 Reason Comments refill - short term Reason Onset Date Comments Refill Request 08/16/2023 Reason Comments Edema Bilateral ankle swel ling x 4 weeks Reason Comments Acute Visit bilat ankle swelling Reason Onset Date Comments Refill Request 10/07/2023 Reason Onset Date Comments Refill Request 10/18/2023 Reason Onset Date Comments Refill Request 10/21/2023 Reason Onset Date Comments Refill Request 11/08/2023 Reason Onset Date Comments Transition Of Care 11/07/2023 Reason Onset Date Comments Population Health Navigation Outreach 04/27/2024 [employer] richard Reason Comments Follow HH Orders Reason Onset Date Comments Transition Of Care 05/24/2024 Reason Onset Date Comments Refill Request 05/31/2024 Reason Onset Date Comments Population Health Navigation Outreach 06/01/2024 [employer] richard Reason Comments Established Patient Reason Onset Date Comments Care Coordination 07/03/2024 Reason Onset Date Comments Refill Request 08/22/2024 Reason Onset Date Comments Refill Request 08/28/2024 Reason Comments Medicare Wellness Exam Reason Onset Date Comments ACM [place] RN 09/17/2024 Chart review per payor request Reason Onset Date Comments Allied Health Visit 09/18/2024 Medication A dherence Outreach Care Teams (unrecognized sec tion and content) Bulb Sorter Relationship Specialty Start Date End Date Vera Pompa MD [address] [place] [address] PCP - General Family Practice 12/06/11 Bulb Sorter Relationship Specialty Start Date End Date Vera Pompa MD [address] [place] [address] PCP - General Family Practice 12/06/11 Bulb Sorter Relationship Specialty Start Date End Date Vera Pompa MD [address] [place] [address] PCP - General Family Practice 12/06/11 Bulb Sorter Relationship Specialty Start Date End Date Vera Pompa MD [address] [place] [address] PCP - General Family Practice 12/06/11 Bulb Sorter Relationship Specialty Start Date End Date Vera Pompa MD [address] [place] [address] PCP - General Family Practice 12/06/11 Bulb Sorter Relationship Specialty Start Date End Date Vera Pompa MD [address] [place] [address] PCP - General Family Practice 12/06/11 Bulb Sorter Relationship Specialty Start Date End Date Vera Pompa MD [address] [place] [address] PCP - General Family Medicine 12/06/11 Bulb Sorter Relationship Specialty Start Date End Date Vera Pompa MD [address] [place] [address] PCP - General Family Medicine 12/06/11 Bulb Sorter Relationship Specialty Start Date End Date Vera Pompa MD [address] [place] [address] PCP - General Family Medicine 12/06/11 Bulb Sorter Relationship Specialty Start Date End Date Vera Pompa MD [address] [place] [address] PCP - General Family Medicine 12/06/11 Team Status: Active Member Role Status Dates Dr. Vera Pompa MD Family Provider Active Dr. Vera Pompa MD Primary Care Provider Active Team Status: Active Member Role Status Dates Dr. Vera Pompa MD Primary Care Provider Active Dr. Giancarlo Wooten , DO Emergency Provider Active Dr. Yessenia Andres MD Attending Provider Active Team Status: Active Member Role Status Dates Dr. Vera Pompa MD Primary Care Provider Active Dr. Giancarlo Wooten , DO Emergency Provider Active Dr. Yessenia Andres MD Admit Provider, Attending Prov ider Active Dr. Saúl Manriquez , DO Other Provider Active Team Status: Active Member Role Status Dates Dr. Vera Pompa MD Primary Care Provider Active Dr. Giancarlo Wooten , DO Emergency Provider Active Dr. Yessenia Andres MD Admit Provider, Other Provider Active Dr. Saúl Manriquez , DO Other Provider Active Dr. Luis Ashley , DO Attending Provider, Other Provid er Active Team Status: Active Member Role Status Dates Dr. Vera Pompa MD Primary Care Provider Active Dr. Giancarlo Wooten , Emergency Provider Active Dr. Yessenia Andres MD Admit Provider, Other Provider Active Dr. Luis Ashley DO Attending Provider, Other Provid er Active Dr. Saúl Manriquez DO Other Provider Active Team Status: Inactive Member Role Status Dates Dr. Vera Pompa MD Primary Care Provider Active Dr. Giancarlo Wooten , Emergency Provider Active Dr. Yessenia Andres MD Admit Provider, Other Provider Active Dr. Luis Ashley DO Attending Provider Active Dr. Saúl Manriquez DO Other Provider Active Bulb Sorter Relationship Specialty Start Date End Date Vera Pompa MD [address] [place] [address] PCP - General Family Medicine 12/06/11 Team Status: Active Member Role Status Dates Dr. Vera Pompa MD Primary Care Provider Active Dr. Odilon Rodríguez MD Admit Provider, Other Provider A ctive Dr. Celeste Lloyd DO Attending Provider Act miguel Team Status: Inactive Member Role Status Dates Dr. Vera Pompa MD Primary Care Provider Active Dr. Odilon Rodríguez MD Admit Provider, Attending Provid er Active Team Status: Active Member Role Status Dates Dr. Vera Pompa MD Primary Care Provider Active Dr. Odilon Rodríguez MD Attending Provider, Referring Pr ovider Active Team Status: Inactive Member Role Status Dates Dr. Vera Pompa MD Primary Care Provider Active Dr. Saúl Manriquez DO Attending Provider, Referrin g Provider Active Team Status: Inactive Member Role Status Dates Dr. Vera Pompa MD Primary Care Provider Active Dr. Odilon Rodríguez MD Attending Provider, Referring Pr ovider Active Bulb Sorter Relationship Specialty Start Date End Date Vera Pomap MD [address] [place] [address] PCP - General Family Medicine 12/06/11 Bulb Sorter Relationship Specialty Start Date End Date Vera Pompa MD [address] [place] [address] PCP - General Family Medicine 12/06/11 Bulb Sorter Relationship Specialty Start Date End Date Vera Pompa MD [address] [place] [address] PCP - General Family Medicine 12/06/11 Bulb Sorter Relationship Specialty Start Date End Date Vera Pompa MD [address] [place] [address] PCP - General Family Medicine 12/06/11 Bulb Sorter Relationship Specialty Start Date End Date Vera Pompa MD [address] [place] [address] PCP - General Family Medicine 12/06/11 Bulb Sorter Relationship Specialty Start Date End Date Vera Pompa MD [address] [place] [address] PCP - General Family Medicine 12/06/11 Team Status: Inactive Member Role Status Dates Dr. Vera Pompa MD Primary Care Provider Active Dr. Carroll Weaver MD Emergency Provider Active Bulb Sorter Relationship Specialty Start Date End Date Vera Pompa MD [address] [place] [address] PCP - General Family Medicine 12/06/11 Bulb Sorter Relationship Specialty Start Date End Date Vera Pompa MD [address] [place] [address] PCP - General Family Medicine 12/06/11 Bulb Sorter Relationship Specialty Start Date End Date Vera Pompa MD [address] [place] [address] PCP - General Family Medicine 12/06/11 Bulb Sorter Relationship Specialty Start Date End Date Vera Pompa MD [address] [place] [address] PCP - General Family Medicine 12/06/11 Bulb Sorter Relationship Specialty Start Date End Date Vera Pompa MD [address] [place] [address] PCP - General Family Medicine 12/06/11 Bulb Sorter Relationship Specialty Start Date End Date Vera Pompa MD [address] [place] [address] PCP - General Family Medicine 12/06/11 Bulb Sorter Relationship Specialty Start Date End Date Vera Pompa MD [address] [place] [address] PCP - General Family Medicine 12/06/11 Bulb Sorter Relationship Specialty Start Date End Date Vera Pompa MD [address] [place] [address] PCP - General Family Medicine 12/06/11 Bulb Sorter Relationship Specialty Start Date End Date Vera Pompa MD [address] [place] [address] PCP - General Family Medicine 12/06/11 Apryl Gorman APRN.AUTOMATION ANALYST [address] [place] [address] Medical Assistant Cardiology Family Medicine 02/19/24 Luis Enrique Caicedo APRN.AUTOMATION ANALYST [address] [place] [address] Medical Assistant Cardiology Family Medicine 02/28/24 Bulb Sorter Relationship Specialty Start Date End Date Vera Pompa MD [address] [facility] [place] [place] [address] PCP - General Family Medicine 12/06/11 Apryl Gorman APRN.AUTOMATION ANALYST [address] [place] [address] Medical Assistant Cardiology Family Medicine 02/19/24 Luis Enrique Caicedo APRN.AUTOMATION ANALYST [address] [place] [address] [facility] Bulb Sorter Relationship Specialty Start Date End Date Vera Pompa MD [address] [place] [address] PCP - General Family Medicine 12/06/11 Apryl Gorman APRN.AUTOMATION ANALYST [address] [place] [address] Medical Assistant Cardiology Family Medicine 02/19/24 Luis Enrique Caicedo APRN.AUTOMATION ANALYST [address] [place] [address] Medical Assistant Cardiology Family Medicine 02/28/24 Bulb Sorter Relationship Specialty Start Date End Date Vera Pompa MD [address] [place] [address] PCP - General Family Medicine 12/06/11 Apryl Gorman APRN.AUTOMATION ANALYST [address] [place] [address] [facility] 02/19/24 Luis Enrique Caicedo CORPORATE BOND TRADER.AUTOMATION ANALYST [address] [place], [place] [address] [facility] 02/28/24 Bulb Sorter Relationship Specialty Start Date End Date Vera Pompa MD [address] [place], [place] [address] PCP - General Family Medicine 12/06/11 Apryl Gorman CORPORATE BOND TRADER.AUTOMATION ANALYST [address] [place], [place] [address] [facility] 02/19/24 Luis Enrique Caicedo CORPORATE BOND TRADER.AUTOMATION ANALYST [address] [place], [place] [address] [facility] 02/28/24 Team Status: Active Member Role Status Dates Dr. Vera Pompa MD Primary Care Provider Active Team Status: Inactive Member Role Status Dates Dr. Vera Pompa MD Primary Care Provider Active Start: May 05, 2024 End: May 05, 2024 Edmundo Judd MD Attending Provider Active Star t: May 05, 2024 End: May 05, 2024 Edmundo Judd MD Emergency Provider Active Star t: May 05, 2024 End: May 05, 2024 Team Status: Inactive Member Role Status Dates Dr. Vera Pompa MD Primary Care Provider Active Start: May 09, 2024 End: May 25, 2024 Dr. Odilon Rodríguez MD Admit Provider Active Star t: May 09, 2024 End: May 25, 2024 Dr. Odilon Rodríguez MD Attending Provider Active Start: May 09, 2024 End: May 25, 2024 Bulb Sorter Relationship Specialty Start Date End Date Vera Pompa MD [address] [place], [place] [id number] PCP - General Family Medicine 12/06/11 Apryl Gorman APRN.AUTOMATION ANALYST [address] [place] [address] Medical Assistant Cardiology Family Medicine 02/19/24 Luis Enrique Caicedo APRN.AUTOMATION ANALYST [address] [place] [address] Medical Assistant Cardiology Family Medicine 02/28/24 Bulb Sorter Relationship Specialty Start Date End Date Vera Pompa MD [address] [place] [address] PCP - General Family Medicine 12/06/11 Apryl Gorman APRN.AUTOMATION ANALYST [address] [place] [address] Medical Assistant Cardiology Family Medicine 02/19/24 Luis Enrique Caicedo CORPORATE BOND TRADER.AUTOMATION ANALYST [address] [place] [address] Medical Assistant Cardiology Family Medicine 02/28/24 Bulb Sorter Relationship Specialty Start Date End Date Vera Pompa MD [address] [place] [address] PCP - General Family Medicine 12/06/11 Apryl Gorman CORPORATE BOND TRADER.AUTOMATION ANALYST [address] [place] [address] Medical Assistant Cardiology Family Medicine 02/19/24 Luis Enrique Caicedo APRN.AUTOMATION ANALYST [address] [place] [address] Medical Assistant Cardiology Family Medicine 02/28/24 Bulb Sorter Relationship Specialty Start Date End Date Vera Pompa MD [address] [place] [address] PCP - General Family Medicine 12/06/11 Apryl Gorman APRN.AUTOMATION ANALYST [address] [place] [address] Medical Assistant Cardiology Family Medicine 02/19/24 Luis Enrique Caicedo APRN.AUTOMATION ANALYST [address] [place] [address] Medical Assistant Cardiology Family Medicine 02/28/24 Team Status: Inactive Member Role Status Dates Dr. Vera Pompa MD Primary Care Provider Active Start: August 21, 2024 End: August 21, 2024 Dr. Graham Lozano MD Emergency Provider Active Sta rt: August 21, 2024 End: August 21, 2024 Bulb Sorter Relationship Specialty Start Date End Date Vera Pompa MD [address] [place] [address] PCP - General Family Medicine 12/06/11 Luis Enrique Caicedo APRN.AUTOMATION ANALYST [address] [place] [address] Medical Assistant Cardiology Family Medicine 02/28/24 Bulb Sorter Relationship Specialty Start Date End Date Vera Pompa MD [address] [place] [address] PCP - General Family Medicine 12/06/11 Luis Enrique Caicedo APRN.AUTOMATION ANALYST [address] [place] [address] Medical Assistant Cardiology Family Medicine 02/28/24 Bulb Sorter Relationship Specialty Start Date End Date Vera Pompa MD [address] [place] [address] PCP - General Family Medicine 12/06/11 Luis Enrique Caicedo APRN.AUTOMATION ANALYST [address] [place], [place] [address] Medical Assistant Cardiology Family Medicine 02/28/24 Team Status: Active Member Role/Relationship Status Dates Dr. Vera Pompa MD Primary Care Provider Active Team Status: Inactive Member Role/Relationship Status Dates Dr. Vera Pompa MD Primary Care Provider Active Start: May 09, 2024 End: May 25, 2024 Dr. Odilon Rodríguez MD Admit Provider Active Star t: May 09, 2024 End: May 25, 2024 Dr. Odilon Rodríguez MD Attending Provider Active Start: May 09, 2024 End: May 25, 2024 Team Status: Inactive Member Role/Relationship Status Dates Dr. Vera Pompa MD Primary Care Provider Active Start: August 21, 2024 End: August 21, 2024 Dr. Graham Lozano MD Attending Provider Active Sta rt: August 21, 2024 End: August 21, 2024 Dr. Graham Lozano MD Emergency Provider Active Sta rt: August 21, 2024 End: August 21, 2024 Team Status: Inactive Member Role/Relationship Status Dates Dr. Vera Pompa MD Primary Care Provider Active Start: September 13, 2024 End: September 13, 2024 Dr. Carroll Weaver MD Emergency Provider Active S tart: September 13, 2024 End: September 13, 2024 Bulb Sorter Relationship Specialty Start Date End Date Vera Pompa MD [address] [place] [address] PCP - General Family Medicine 12/06/11 Luis Enrique Caicedo APRN.AUTOMATION ANALYST [address] [place], [place] [id number] Medical Assistant Cardiology Family Medicine 02/28/24 Bulb Sorter Relationship Specialty Start Date End Date Vera Pompa MD [address] [place] [place], [place] [address] PCP - General Family Medicine 12/06/11 Luis Enrique Caicedo APRN.BERNIE [address] [place] [place], [place] [address] Medical Assistant Cardiology Family Medicine 02/28/24 Goals (unrecognized section and content) Goals may be documented in a n alternate sectionGoals may be documented in an alternate section INFORMATION SOURCE (unrecogn ized section and content) DATE CREATED AUTHOR 06/28/2024 [facility] DATE CREATED AUTHOR AUTHOR'S ORGANIZ ATION 09/16/2024 [facility] DATE CREATED AUTHOR AUTHOR'S ORGANIZ ATION 09/21/2024 [facility] FOR RECORDS PERTAINING TO PATIENTS WHO ARE [...] BE BASED ON THE PRIMARY CLINICAL RECORDS. [employer] [facility]. provides no warranty or guarantee of the accuracy or completeness of information in this document.
[2024-09-23 11:41] LABS: AST(SGOT) 45 U/L (<=31); Alanine Aminotransfer ALT/SGPT 63 U/L (<=34); Albumin, Serum 3.9 g/dL (3.4-4.8); Alkaline Phosphatase 300 U/L (35-104); Anion Gap 17 (5-15); BUN 14 mg/dL (4-19); BUN/Creat Ratio 21.4 RATIO (10-20); Calcium,Total 9.8 mg/dL (7.6-11.0); Carbon Dioxide 21.8 mmol/L (21.0-32.0); Chloride 99 mmol/L (98-108); Globulin 4.0 g/dL (2.2-4.2); Glucose 104 mg/dL (70-99); Lipase 23 U/L (13-75); Potassium 3.7 mmol/L (3.3-5.1)
[2024-09-23] MEDS: 0.9% Normal Saline (500mL Bag) 500 ML 1000 ML IV (11:55)
[2024-09-23 12:07] LABS: Free T3 1.5 pg/mL (2.18-3.98)
[2024-09-23 12:23] VITALS: BP 166/94; PULSE 78; RESP 15; O2SAT 98
[2024-09-23 13:06] LABS: Color, Urine Yellow (Yellow); Glucose, Dipstick Normal (Normal); Ketone-Dipstick 15 mg/dl (Negative); Leukocyte Esterase-Dipstick 25 /ul (Negative); Nitrite-Dipstick Negative (Negative); Occult Blood-Urine 25 /ul (Negative); Protein-Dipstick 30 mg/dl (Negative); Specific Gravity, Urine 1.015 (1.002-1.030); Urine Bilirubin Dipstick Negative (Negative)
[2024-09-23 13:12] LABS: Mucous, Urine 2+ /hpf (<or=2+); Squamous Epithelial Cells - UA 0-5 SEEN /hpf (5-10)
[2024-09-23 13:13] LABS: Calcium Oxalate Crystals Ur 1+ /hpf (<or=2+); Red Blood Cells-Urine 0-5 SEEN /hpf (0-5)
[2024-09-23 14:00] VITALS: BP 181/91; PULSE 74; RESP 16; O2SAT 93
[2024-09-23 14:34] VITALS: BP 181/91; PULSE 74; RESP 16; TEMP 36.8; O2SAT 93
== END 2024-09-23 14:42 | disposition home or self-care (01) ==
PROVIDERS: Emergency Provider Emergency Medicine; PCP Family Medicine; Visit Provider Emergency Medicine
DX: E86.0 Dehydration (principal); I48.91 Unspecified atrial fibrillation; E03.9 Hypothyroidism, unspecified; I10 Essential (primary) hypertension; E78.5 Hyperlipidemia, unspecified; R53.83 Other fatigue; M79.7 Fibromyalgia; R53.1 Weakness; F32.A Depression, unspecified; Z79.899 Other long term (current) drug therapy
CPT/HCPCS: 71045; 80053; 81001; 83690; 84439; 84443; 84481; 84484; 85027; 87631; 93005; 99284; A4216

== ENCOUNTER → 2024-09-27 | Outpatient (CLI) | payer MEDICARE, SELFPAY ==
--- NOTE | 2024-09-27 15:00 | MRI_ITS ---
PROCEDURE: BRAIN W/WO CONTRAST 09/27/2024 REASON FOR EXAM: DIPLOPIA; blurred vision, TECHNIQUE: Multiplanar and multisequential MRI of the brain/orbits was performed without and with IV gadolinium based contrast. Dedicated thin slice small [id number] sequences through the orbits were performed pre and postcontrast. CONTRAST: Clariscan VOLUME: 13 mL COMPARISON: CT head 05/25/2023. FINDINGS: No regions of abnormal restricted diffusion to indicate recent infarct. Small nonenhancing densely calcified extra-axial nodular focus at the inner table of the right frontal convexity measuring roughly 10 mm, either a small heavily calcified meningioma versus inner table calvarial osteoma, benign. No mass-effect on the underlying right frontal lobe. No additional intracranial mass lesion, or areas of pathologic enhancement. Mild age-appropriate generalized brain parenchymal volume loss, and mild scattered foci of chronic small-vessel ischemic-gliotic change throughout the supratentorial white matter. No findings suggestive of a demyelinating process within the brain. Normal ventricular caliber. Mildly prominent benign perivascular spaces within the bilateral basal ganglia noted. Orbital contents appear normal and symmetric bilaterally. No orbital mass lesion, pathologic enhancement, or infiltration of the retrobulbar fat planes. No abnormal signal or pathologic enhancement involving the optic nerves or chiasm appreciated. The pituitary gland and parasellar structures are normal in appearance. Midline infundibulum. Preserved major vascular flow voids. Well-aerated paranasal sinuses and mastoid air cells. MRI/Brain W/WO Contrast IMPRESSION: No acute intracranial abnormality or specific cause for patient's visual sympto ms. No mass lesion or pathologic enhancement. No evidence for demyelinating disease/optic neuritis. Reading Location: [id number]
== END | disposition home or self-care (01) ==
LOC: MRI 14:33
PROVIDERS: PCP Family Medicine; Referring Provider Ophthalmology; Visit Provider Ophthalmology
DX: H53.2 Diplopia (principal)
CPT/HCPCS: 70553; A9575

== ENCOUNTER 2024-10-09 12:58 | Emergency (ER) | payer MEDICARE, SELFPAY ==
[2024-10-09 13:00] VITALS: BP 130/90; PULSE 101; RESP 16; TEMP 36.3; O2SAT 96
[2024-10-09 13:25] VITALS: BMI 26.3
--- NOTE | 2024-10-09 13:38 | EKG12_ITS ---
Test Reason : WEAKNESS Blood Pressure : */* mmHG Vent. Rate : 77 BPM Atrial Rate : 77 BPM P-R Int : 142 ms QRS Dur : 68 ms QT Int : 410 ms P-R-T Axes : 45 -13 32 degrees QTcB Int : 463 ms Normal sinus rhythm Normal ECG Confirmed by CAITLIN SCHMIDT, TAYLOR ([id number]), newspaper or periodical editor ARASH BARRAZA ([id number]) on 10/10/2024 8:37:59 AM Referred By: Confirmed By: TAYLOR TUCKER MD
--- NOTE | 2024-10-09 13:39 | EX.ED.DYSGE1 ---
HPI History of Present Illness Chief Complaint: Confusion Detail of Chief Complaint: Not feeling well Informant: patient Narrative Narrative: Patient presents to the emergency department with vague complaint of not feeling well. She has a hard time describing how she does not feel well. She describes feeling like she is only half there. states that while in the bathroom today she seemed a little disoriented. She for over the last week or so has been having some issue with her left eye. She has been seen by ophthalmology who ordered an MRI of her brain that was performed and was unremarkable. More blood testing was ordered yesterday. Patient denies recent illness. She has had some intermittent double vision. She denies chest pain or abdominal pain. She denies urinary symptoms. She has had no fever. [facility] Medical History Hypothyroid Non-smoker Sleep apnea Hypertension Migraines Chronic anemia Obesity Anxiety and depression GERD (gastroesophageal reflux disease) HLD (hyperlipidemia) PAF (paroxysmal atrial fibrillation) Fibromyalgia Osteoporosis Paroxysmal atrial fibrillation T12 compression fracture Closed right hip fracture Syncope Home Medications ?Medication ?Instructions ?Recorded ?Last Taken ?Type alendronate 70 mg tablet 70 mg PO QWEEK osteoporosis 09/07/22 08/16/24 History atorvastatin 20 mg tablet 20 mg PO QHS HLD 09/07/22 10/08/24 History fluoxetine 40 mg capsule 40 mg PO DAILY depression 09/07/22 10/08/24 History omeprazole 20 mg capsule,delayed 20 mg PO DAILY GERD 09/07/22 10/08/24 History release calcium carbonate 500 mg (2.5 x 200 mg calcium (500 09/10/22 10/08/24 Rx mg)) PO TIDCM supplement #30 tabs levothyroxine 100 mcg tablet 100 mcg PO DAILY THYROID 05/05/24 10/09/24 History cholecalciferol (vitamin D3) 25 50 mcg (2 x 25 mcg (1,000 unit)) 05/22/24 10/08/24 Rx mcg (1,000 unit) tablet PO DAILY #0 tabs multivitamin-iron 9 mg-folic acid 1 tab PO DAILYCM #0 tabs 05/22/24 10/08/24 Rx 400 mcg-calcium and minerals tablet (Therapeutic-M) acetaminophen 500 mg tablet 1,000 mg PO Q8 PRN pain 08/21/24 08/21/24 History cyclobenzaprine 5 mg tablet 5 mg PO TID PRN pain 10/09/24 10/09/24 History Allergy/AdvReac Type Severity Reaction Status Date / Time codeine Allergy Unknown Verified 10/09/24 13:02 codeine phosphate (From AdvReac Unknown Verified 10/09/24 13:02 Tylenol-Codeine #3) nabumetone (From Relafen) AdvReac Unknown Verified 10/09/24 13:02 naproxen AdvReac Unknown Verified 10/09/24 13:02 Family History Mother Cancer Father Cancer Surgical History S/P ORIF (open reduction internal fixation) fracture History of section H/O ovarian cystectomy History of total right hip replacement S/P kyphoplasty S/P ORIF (open reduction internal fixation) fracture Social History household members: spouse Smoking Status: Never smoker alcohol intake: never substance use type: does not use ROS ROS ED Review of Systems ROS Unobtainable: other Constitutional Constitutional ED: Reports lethargy; Denies chills, fever(s), sweats or weight loss Eyes Eyes: Reports diplopia; Denies blurry vision or change in vision ENT ENT ED: Denies rhinorrhea or sore throat Cardiovascular Cardiovascular: Denies chest pain, orthopnea or racing heartbeat Respiratory/Chest Respiratory/Chest: Denies cough, dyspnea, dyspnea on exertion, orthopnea or sputum Gastrointestinal Gastrointestinal: Denies abdominal pain, diarrhea, nausea or vomiting Genitourinary Genitourinary ED: Denies dysuria, hematuria or urinary frequency Musculoskeletal Musculoskeletal: Denies arthralgias, back pain, myalgias or neck pain Integumentary Denies abscess, Abrasions or rash Neurologic Neurologic: Reports weakness; Denies headache(s) Psychiatric Psychiatric: Denies anxiety, depression or suicidal thoughts Endocrine Endocrinology: Denies polydipsia, polyphagia or polyuria Hematologic/Lymphatic Hematologic/Lymphatic: Denies easy bleeding, easy bruising or lymphadenopathy Allergic/Immunologic Allergic/Immunologic ED: Denies mouth swelling, tongue swelling or urticaria EXAM Physical Exam Const Vital Signs: 10/09/24 13:00 Temperature 97.3 F L Temperature Source Oral Pulse Rate 101 H Respiratory Rate 16 Blood Pressure 130/90 H Blood Pressure Mean 103 Pulse Ox 96 Oxygen Delivery Method Room Air Positive well nourished and well developed General Appearance ED: well developed and NAD HEENT Reports TM's clear and moist mucous membranes HEENT Narrative: Left upper eyelid slightly weak compared to the right. normocephalic and atraumatic; Negative for trauma or tenderness Tympanic Membrane ED: Yes TM's clear Eyes PERRL and EOMs intact bilaterally General Eye ED: Negative for pale conjunctiva or scleral icterus Neck no lymphadenopathy, supple and no JVD General: Negative for tenderness Chest Wall inspection of chest normal and palpation of chest normal Chest: Negative for tenderness Resp normal respiratory effort and clear to auscultation bilaterally Effort and Inspection: Negative for respiratory distress or pain with movement Auscultation: Negative for rhonchi, wheezes or diminished lung sounds Cardio regular rate, regular rhythm, S1 normal heart sound, S2 normal heart sound and no murmurs Peripheral Pulses: pulses 2+ throughout GI normal to inspection, nondistended, normoactive bowel sounds, soft to palpation, non-tender, non-distended and no masses Back/Spine no CVA tenderness and no thoracic nor lumbar tenderness Extremity normal to inspection General Extremety ED: Negative for edema General Extremity: Negative for edema Neuro oriented x3, CN's II-XII intact bilaterally, no sensory deficits noted and gait normal Sensorium / Orientation: awake, alert, oriented to person, oriented to place and oriented to time Motor Exam: strength 5/5 throughout and strength abnormal Psych mental status grossly normal Skin no rashes or lesions noted and no wounds MDM MDM MDM Narrative Medical decision making narrative: Patient presents the emergency department with vague complaint of chest not feeling right. Currently being followed by ophthalmology and had recent MRI of the brain on September 23 that was normal. I spoke with ophthalmology Dr. Ayala who stated that he is not certain the etiology of her symptoms and did order more labs yesterday to evaluate for myasthenia gravis. He recommended CTA of head and neck to rule out posterior circulation aneurysm and also recommended outpatient follow-up with neurology. Lab testing for myasthenia gravis typically can take up to 2 weeks. On arrival her EKG showed sinus rhythm with rate of 77 bpm with no acute ST segment changes. CBC with differential showed a normal white count of 7.2 with hemoglobin 11.9 and platelet count of 429. Chemistries were unremarkable. Sed rate slightly elevated 40. Alkaline phosphatase was 305 with an AST of 57 and ALT of 82. TSH was elevated at 16.4 but it is down from 20. Care of patient turned over to evening physician awaiting CTA results and final disposition. Lab Data Attestation: I reviewed the patient's lab results. Labs: Laboratory Results - last 24 hr 10/09/24 10/09/24 13:20 13:50 WBC 7.2 RBC 3.91 L Hgb 11.9 L Hct 37.6 MCV 96.2 MCH 30.4 MCHC 31.6 L RDW Std Deviation 46.2 H RDW Coeff of Serafin 13.2 Plt Count 429 MPV 9.8 Immature Gran % (Auto) 0.400 Neut % (Auto) 68.4 Lymph % (Auto) 18.9 L Barry % (Auto) 7.3 Eos % (Auto) 4.2 Baso % (Auto) 0.8 Absolute Neuts (auto) 4.9 Absolute Lymphs (auto) 1.35 Nucleated RBC % 0 ESR 40 H Sodium 137 Potassium 4.3 Chloride 103 Carbon Dioxide 20.2 L Anion Gap 14 BUN 14 Creatinine 0.67 L Estim Creat Clear Calc 48.11 L Est GFR (MDRD) Non-Af 90 BUN/Creatinine Ratio 20.9 H Glucose 92 Calcium 8.6 Magnesium 2.0 Total Bilirubin 0.76 AST 67 H ALT 82 H Alkaline Phosphatase 305 H C-React Prot Ext Range 5.52 H Total Protein 7.0 Albumin 3.4 Globulin 3.6 Albumin/Globulin Ratio 0.9 TSH 16.400 H Discharge Plan Triage Chief Complaint: Confusion ED Provider: Nataly Vaughn Dx/Rx/DC Orders Clinical Impression: Weakness, Diplopia Prescriptions: No Action fluoxetine 40 mg capsule 40 mg PO DAILY atorvastatin 20 mg tablet 20 mg PO QHS Patient Comments: PT THINKS SHE IS TAKING SOMETHING FOR CHOLESTEROL AND THAT IT MAY BE ATORVASTATIN alendronate 70 mg tablet 70 mg PO QWEEK Rx Instructions: weekly. omeprazole 20 mg capsule,delayed release(DR/EC) 20 mg PO DAILY calcium carbonate 200 mg calcium (500 mg) Tablet,Chewable 500 mg PO TIDCM Qty: 30 0RF cholecalciferol (vitamin D3) 25 mcg (1,000 unit) Tablet 50 mcg PO DAILY Qty: 0 0RF Therapeutic-M 9 mg iron-400 mcg Tablet 1 tab PO DAILYCM Qty: 0 0RF cyclobenzaprine 5 mg tablet 5 mg PO TID PRN (Reason: pain) levothyroxine 100 mcg tablet 100 mcg PO DAILY Patient Comments: [NO ORIGINAL SIG] acetaminophen 500 mg Tablet 1,000 mg PO Q8 PRN (Reason: pain) Primary Care Provider: Jose Carlos Pompa Referrals: Jose Carlos Pompa MD [Primary Care Provider] - gio [Other] Alcides Mcneil MD [Non-Staff -Ordering Privileges] - 3-5 Days Print Language: Nepali
[2024-10-09 14:22] LABS: Hematocrit 37.6 % (37-47); Hemoglobin 11.9 g/dL (12.0-15.0); Immature Granulocytes Count 0.030 X10^3/uL (0.0-0.0); Mean Corp Hgb Conc 31.6 g/dL (32-36); Mean Corpuscular Volume 96.2 fL (81-99); Mean Platelet Vol. 9.8 fl (6.2-12.0); NRBC Flagged by Analyzer 0 % (0-5); Platelet Count 429 K/mm3 (150-450); RBC Distribution Width CV 13.2 % (11.6-14.6); RBC Distribution Width SD 46.2 fl (35.1-43.9); Red Blood Count 3.91 M/mm3 (4.2-5.4); White Blood Count 7.2 K/mm3 (4.4-11.0)
[2024-10-09] MEDS: 0.9% Normal Saline (1000mL) 1,000 ML 150 ML IV (14:29)
--- NOTE | 2024-10-09 14:43 | CT_ITS ---
PROCEDURE: CTA HEAD AND NECK W/ CONTRAST 10/09/2024 REASON FOR EXAM: DIFFICULTY WITH VISION TECHNIQUE: CTA HEAD AND NECK W/ CONTRAST Multiplanar Sagittal and Coronal images were obtained. 3D post processing was performed CONTRAST: Isovue 370 VOLUME: 75 mL One or more dose reduction techniques were used (e.g., Automated exposure control, adjustment of the mA and/or kV according to patient size, use of iterative reconstruction technique). RADIATION DOSE SUMMARY: CTDlvol: 24 mGy DLP: 1307.26 mGycm COMPARISON: Prior CT scan of the head dated May 25, 2023. FINDINGS: Aortic Arch: Normal size and branching pattern. Mild atherosclerotic plaque. Brachiocephalic and Subclavians: Mild atherosclerotic plaque without significant stenosis. RIGHT Carotid: Right CCA: Unremarkable. Right ICA: Maximum stenosis (NASCET): <50 % Right ECA: Unremarkable. LEFT Carotid: Left CCA: Unremarkable. Left ICA: Mild calcified and soft plaque. Maximum stenosis (NASCET): <50 % Left ECA: Unremarkable. Vertebrals: Codominant. Arise from the subclavians. Both vertebrals form the basilar. RIGHT Vertebral: Unremarkable. LEFT Vertebral: Unremarkable. Anatomy: [place] anatomy is normal. Aneurysm or avm: No intracranial aneurysms or large vascular malformations are identified. Anterior cerebral arteries: Unremarkable: Middle cerebral arteries: Unremarkable. Basilar artery: Unremarkable. Posterior cerebral arteries: Unremarkable. Other major branches of the posterior circulation: Unremarkable. Major venous structures: Unremarkable. Other findings: Chronic changes on the unenhanced CT scan of the brain with the dense calcifications of the basal ganglia bilaterally. CT/CTA Head AND Neck W/ Contrast IMPRESSION: No significant plaque formation is seen. Chronic changes on the unenhanced CT scan of the brain. Reading Location: [id number]
[2024-10-09 14:57] LABS: AST(SGOT) 67 U/L (<=31); Alanine Aminotransfer ALT/SGPT 82 U/L (<=34); Albumin, Serum 3.4 g/dL (3.4-4.8); Alkaline Phosphatase 305 U/L (35-104); Anion Gap 14 (5-15); BUN 14 mg/dL (4-19); BUN/Creat Ratio 20.9 RATIO (10-20); CRP 5.52 mg/L (0.0-3.0); Calcium,Total 8.6 mg/dL (7.6-11.0); Carbon Dioxide 20.2 mmol/L (21.0-32.0); Chloride 103 mmol/L (98-108); Estimated Creatinine Clearance 48.11 ml/min (50-250); Globulin 3.6 g/dL (2.2-4.2); Glucose 92 mg/dL (70-99); Magnesium 2.0 mg/dL (1.5-2.2); Potassium 4.3 mmol/L (3.3-5.1)
[2024-10-09 15:00] VITALS: BP 158/86; PULSE 83; RESP 17; O2SAT 96
[2024-10-09 15:44] LABS: Mucous, Urine 0 SEEN /hpf (<or=2+)
[2024-10-09 16:25] LABS: Color, Urine Straw (Yellow); Glucose, Dipstick Normal (Normal); Ketone-Dipstick Negative (Negative); Leukocyte Esterase-Dipstick Negative /ul (Negative); Nitrite-Dipstick Negative (Negative); Occult Blood-Urine Negative /ul (Negative); Protein-Dipstick Negative (Negative); Specific Gravity, Urine 1.010 (1.002-1.030); Urine Bilirubin Dipstick Negative (Negative)
[2024-10-09 17:00] VITALS: BP 152/89; PULSE 75; RESP 16; O2SAT 98
[2024-10-09 17:19] LABS: Red Blood Cells-Urine 0-5 SEEN /hpf (0-5); Squamous Epithelial Cells - UA 0-5 SEEN /hpf (5-10)
[2024-10-09 18:37] VITALS: BP 137/87; PULSE 72; RESP 16; TEMP 36.4; O2SAT 100
== END 2024-10-09 18:39 | disposition home or self-care (01) ==
PROVIDERS: Emergency Provider Emergency Medicine; PCP Family Medicine; Visit Provider Emergency Medicine
DX: R41.0 Disorientation, unspecified (principal); I48.0 Paroxysmal atrial fibrillation; R53.1 Weakness; H53.2 Diplopia; E78.5 Hyperlipidemia, unspecified; I10 Essential (primary) hypertension; M81.0 Age-related osteoporosis without current pathological fracture; F41.8 Other specified anxiety disorders; Z79.899 Other long term (current) drug therapy; K21.9 Gastro-esophageal reflux disease without esophagitis; Z90.6 Acquired absence of other parts of urinary tract; Z96.641 Presence of right artificial hip joint
CPT/HCPCS: 70496; 70498; 80053; 81001; 83735; 84443; 85025; 85652; 86140; 93005; 96360; 96361; 99285; Q9967; A4216

== ENCOUNTER 2025-01-03 11:21 | Emergency (ER) | payer MEDICARE, SELFPAY ==
[2025-01-03 11:22] VITALS: BP 134/80; PULSE 93; RESP 18; TEMP 36.1; O2SAT 97
[2025-01-03 14:27] LABS: Hematocrit 38.8 % (37-47); Hemoglobin 12.4 g/dL (12.0-15.0); Immature Granulocytes Count 0.050 X10^3/uL (0.0-0.0); Mean Corp Hgb Conc 32.0 g/dL (32-36); Mean Corpuscular Volume 93.7 fL (81-99); Mean Platelet Vol. 10.1 fl (6.2-12.0); NRBC Flagged by Analyzer 0 % (0-5); Platelet Count 350 K/mm3 (150-450); RBC Distribution Width CV 12.8 % (11.6-14.6); RBC Distribution Width SD 44.3 fl (35.1-43.9); Red Blood Count 4.14 M/mm3 (4.2-5.4); White Blood Count 8.7 K/mm3 (4.4-11.0)
[2025-01-03 15:00] LABS: Mucous, Urine 0 SEEN /hpf (<or=2+); Squamous Epithelial Cells - UA 0 SEEN /hpf (5-10)
[2025-01-03 15:02] LABS: Color, Urine Yellow (Yellow); Glucose, Dipstick Normal (Normal); Ketone-Dipstick Negative (Negative); Leukocyte Esterase-Dipstick 500 /ul (Negative); Nitrite-Dipstick Positive (Negative); Occult Blood-Urine 150 /ul (Negative); Protein-Dipstick 30 mg/dl (Negative); Specific Gravity, Urine 1.010 (1.002-1.030); Urine Bilirubin Dipstick Negative (Negative)
[2025-01-03 15:08] LABS: Red Blood Cells-Urine 25-50 SEEN /hpf (0-5)
[2025-01-03 15:14] LABS: AST(SGOT) 44 U/L (<=31); Alanine Aminotransfer ALT/SGPT 34 U/L (<=34); Albumin, Serum 3.5 g/dL (3.4-4.8); Alkaline Phosphatase 145 U/L (35-104); Anion Gap 12 (5-15); BUN 16 mg/dL (4-19); BUN/Creat Ratio 25.3 RATIO (10-20); Calcium,Total 9.0 mg/dL (7.6-11.0); Carbon Dioxide 19.6 mmol/L (21.0-32.0); Chloride 107 mmol/L (98-108); Globulin 3.6 g/dL (2.2-4.2); Glucose 82 mg/dL (70-99); Potassium 4.8 mmol/L (3.3-5.1)
[2025-01-03 15:17] VITALS: BP 110/58; PULSE 91; RESP 18; O2SAT 100
[2025-01-03 16:02] VITALS: BMI 25.3
[2025-01-03 16:03] VITALS: BP 131/76; PULSE 82; RESP 18; TEMP 36.8; O2SAT 96
== END 2025-01-03 16:28 | disposition home or self-care (01) ==
PROVIDERS: Emergency Provider Emergency Medicine; PCP Nurse Practitioner Family; Visit Provider Emergency Medicine
DX: N39.0 Urinary tract infection, site not specified (principal); E78.5 Hyperlipidemia, unspecified; M54.50 Low back pain, unspecified; B96.20 Unspecified Escherichia coli [E. coli] as the cause of diseases classified elsewhere; I10 Essential (primary) hypertension; K21.9 Gastro-esophageal reflux disease without esophagitis
CPT/HCPCS: 72100; 80053; 81001; 85025; 87086; 87088; 87186; 96374; 99283; A4216

== ENCOUNTER 2025-01-14 10:26 | Emergency (ER) | payer MEDICARE, SELFPAY ==
[2025-01-14 10:27] VITALS: BP 136/80; PULSE 87; RESP 18; TEMP 36.4; O2SAT 100
[2025-01-14 11:49] VITALS: BMI 25.0
[2025-01-14 11:57] LABS: Hematocrit 40.7 % (37-47); Hemoglobin 12.9 g/dL (12.0-15.0); Immature Granulocytes Count 0.030 X10^3/uL (0.0-0.0); Mean Corp Hgb Conc 31.7 g/dL (32-36); Mean Corpuscular Volume 94.4 fL (81-99); Mean Platelet Vol. 10.0 fl (6.2-12.0); NRBC Flagged by Analyzer 0 % (0-5); Platelet Count 314 K/mm3 (150-450); RBC Distribution Width CV 12.5 % (11.6-14.6); RBC Distribution Width SD 43.8 fl (35.1-43.9); Red Blood Count 4.31 M/mm3 (4.2-5.4); White Blood Count 11.6 K/mm3 (4.4-11.0)
[2025-01-14] MEDS: Lidocaine 5% Patch 1 PATCH TOPICAL (12:05)
[2025-01-14 12:47] LABS: Anion Gap 13 (5-15); BUN 21 mg/dL (4-19); BUN/Creat Ratio 32.7 RATIO (10-20); Calcium,Total 9.9 mg/dL (7.6-11.0); Carbon Dioxide 21.5 mmol/L (21.0-32.0); Chloride 109 mmol/L (98-108); Estimated Creatinine Clearance 46.95 ml/min (50-250); Glucose 96 mg/dL (70-99); Potassium 3.9 mmol/L (3.3-5.1)
--- NOTE | 2025-01-14 13:00 | CT_ITS ---
PROCEDURE: CT/Abdomen/Pelvis without Cont
[2025-01-14 13:24] VITALS: BP 122/54; PULSE 93; RESP 16; O2SAT 98
[2025-01-14 13:28] LABS: Mucous, Urine 0 SEEN /hpf (<or=2+); Squamous Epithelial Cells - UA 0 SEEN /hpf (5-10)
[2025-01-14 13:29] LABS: Color, Urine Yellow (Yellow); Glucose, Dipstick Normal (Normal); Ketone-Dipstick Negative (Negative); Leukocyte Esterase-Dipstick 100 /ul (Negative); Nitrite-Dipstick Positive (Negative); Occult Blood-Urine 250 /ul (Negative); Protein-Dipstick 15 mg/dl (Negative); Specific Gravity, Urine 1.020 (1.002-1.030); Urine Bilirubin Dipstick Negative (Negative)
[2025-01-14 13:46] LABS: Red Blood Cells-Urine 5-10 SEEN /hpf (0-5)
[2025-01-14 16:00] VITALS: BP 118/76; PULSE 94; RESP 18; TEMP 36.8; O2SAT 98
--- NOTE | 2025-01-14 18:11 | EX.ED.DYSGE1 ---
HPI History of Present Illness Chief Complaint: Flank Pain Narrative Narrative: Patient is a 79-year-old female presenting to the emergency department for right sided flank pain. Patient states that she was here on 01/03 and diagnosed with a UTI. She states that she was having the flank pain at that time. States that she took all of her antibiotics, she was prescribed Keflex. States that she still having the right sided flank pain. She states it worsens with any movement or twisting of her back. States if she is sitting still she is not having pain. She denies any fever, chills, abdominal pain, nausea, vomiting, diarrhea. She denies any trauma to her back. Denies any falls. Denies any saddle anesthesia, bowel or bladder retention or incontinence. She is denying any dysuria or hematuria. Denying any frequency or urgency. States that she is been taking Tylenol at home for pain control. [facility] Medical History Hypothyroid Non-smoker Sleep apnea Hypertension Migraines Chronic anemia Obesity Anxiety and depression GERD (gastroesophageal reflux disease) HLD (hyperlipidemia) PAF (paroxysmal atrial fibrillation) Fibromyalgia Osteoporosis Paroxysmal atrial fibrillation T12 compression fracture Closed right hip fracture Syncope Home Medications ?Medication ?Instructions ?Recorded ?Last Taken ?Type alendronate 70 mg tablet 70 mg PO QWEEK osteoporosis 09/07/22 08/16/24 History atorvastatin 20 mg tablet 20 mg PO QHS HLD 09/07/22 10/08/24 History fluoxetine 40 mg capsule 40 mg PO DAILY depression 09/07/22 10/08/24 History omeprazole 20 mg capsule,delayed 20 mg PO DAILY GERD 09/07/22 10/08/24 History release calcium carbonate 500 mg (2.5 x 200 mg calcium (500 09/10/22 10/08/24 Rx mg)) PO TIDCM supplement #30 tabs levothyroxine 100 mcg tablet 100 mcg PO DAILY THYROID 05/05/24 10/09/24 History cholecalciferol (vitamin D3) 25 50 mcg (2 x 25 mcg (1,000 unit)) 05/22/24 10/08/24 Rx mcg (1,000 unit) tablet PO DAILY #0 tabs multivitamin-iron 9 mg-folic acid 1 tab PO DAILYCM #0 tabs 05/22/24 10/08/24 Rx 400 mcg-calcium and minerals tablet (Therapeutic-M) acetaminophen 500 mg tablet 1,000 mg PO Q8 PRN pain 08/21/24 08/21/24 History cyclobenzaprine 5 mg tablet 5 mg PO TID PRN pain 10/09/24 10/09/24 History cephalexin 500 mg capsule 500 mg PO Q12 #14 CAPSULES 01/03/25 Unknown Rx hydrocodone-acetaminophen 5-325mg 1 tab PO Q8H PRN Pain 3 days #10 01/03/25 Unknown Rx 5mg-325mg TABLETS ciprofloxacin HCl 500 mg tablet 500 mg PO BID 7 days #14 tabs 01/14/25 Unknown Rx (Cipro) tamsulosin 0.4 mg capsule (Flomax) 0.4 mg PO QHS #14 caps 01/14/25 Unknown Rx Allergy/AdvReac Type Severity Reaction Status Date / Time codeine Allergy Unknown Verified 01/14/25 10:27 codeine phosphate (From AdvReac Unknown Verified 01/14/25 10:27 Tylenol-Codeine #3) nabumetone (From Relafen) AdvReac Unknown Verified 01/14/25 10:27 naproxen AdvReac Unknown Verified 01/14/25 10:27 Family History Mother Cancer Father Cancer Surgical History S/P ORIF (open reduction internal fixation) fracture History of section H/O ovarian cystectomy History of total right hip replacement S/P kyphoplasty S/P ORIF (open reduction internal fixation) fracture Social History household members: spouse Smoking Status: Never smoker alcohol intake: never substance use type: does not use ROS ROS ED ROS Narrative See HPI EXAM Physical Exam Narrative Exam Narrative: Vital signs: Reviewed General: Alert and oriented x 3. No acute distress. Chronically ill-appearing. HEENT: Head is normocephalic and atraumatic, sinuses nontender, pupils equal round and reactive. Nares are patent. Oropharynx and throat exams normal. Neck: Supple without lymphadenopathy nontender Cardiovascular: Regular rate and rhythm, no murmurs. No rubs or gallops. Normal S1 and S2 Respiratory: Clear to auscultation bilaterally. No wheezes, rales, rhonchi Abdominal: Soft and nontender. Normal bowel sounds. No guarding or rebound. Nonsurgical abdomen Extremities: There is no midline cervical, thoracic or lumbar spinal tenderness to palpation. No step-offs or deformities. There is right CVA tenderness to palpation. There is also right lumbar paraspinal tenderness to palpation. There is no erythema or rashes noted to the back or flank. No tenderness. No bruising. Normal range of motion. Normal sensation. Skin: No rash or redness. Neurological: Cranial nerves II through XII are grossly intact. 5 out of 5 strength in bilateral lower extremities. Sensation intact in bilateral lower extremities. Normal cerebellar function The rest of the physical exam is unremarkable Const Vital Signs: 01/14/25 10:27 01/14/25 13:24 01/14/25 16:00 Temperature 97.6 F L 98.2 F Temperature Source Oral Pulse Rate 87 93 94 Respiratory Rate 18 16 18 Blood Pressure 136/80 H 122/54 H 118/76 Blood Pressure Mean 98 76 90 Pulse Ox 100 98 98 Oxygen Delivery Method Room Air Room Air MDM MDM MDM Narrative Medical decision making narrative: Patient is a 79-year-old female presenting to the emergency department for right sided flank pain. Patient was seen and examined. Vitals are stable. Patient resting bed comfortably no acute distress. Patient Toradol for pain control. Lidoderm patch was also placed. It seems to be more musculoskeletal related but given the recent UTI and continued flank pain with CVA tenderness will obtain CT to rule out nephrolithiasis. The visit from 01/03 was reviewed. It appears that she was diagnosed with a urinary tract infection and was placed on Keflex. She did not have any imaging done at that time. With the continued right flank pain we will obtain a CT to rule out nephrolithiasis or pyelonephritis. She has no midline back pain I do not think this is a vertebrae or spinal cord issue. She is not having any chest pain or shortness of breath, I do not think this is aortic pathology. CBC with a mild nonspecific leukocytosis of 11.6 and a normal hemoglobin. BMP with a BUN of 21 otherwise no significant abnormalities. Urinalysis with positive nitrites, leukocyte esterase and 2+ bacteria consistent with a urinary tract infection. Urine culture sent today. Prior urine culture from 01/03 was reviewed and is pansensitive and grew E. coli. CT of the abdomen pelvis shows right hydronephrosis and right hydroureter due to a 5.2 mm calculus in the distal portion of the right ureter just proximal to the right ureterovesical junction. Multiple small gallstones along the dependent portion the gallbladder lumen. The gallbladder slightly distended. Hiatal hernia. With the patient's UTI and stone I did speak with on-call urologist, Dr. Chaidez, who recommended outpatient management with ciprofloxacin and Flomax and she will follow-up closely with her outpatient as long as her pain is under control here. Patient was reevaluated. She is pain-free at time of evaluation. Able to tolerate p.o. Patient and were updated on the lab and imaging findings. Explained that she will be discharged on a different antibiotic ciprofloxacin and how to take this. Prescribed Flomax for home. Instructed to take NSAIDs at home for pain control. Urine strainer was ordered and will be sent home with the patient. Patient discharged from the Emergency Department. I do not feel that the patient's evaluation reveals any acute reason for admission at this time. I instructed them to either follow-up with their primary care physician or promptly return to the Emergency Department for reevaluation should symptoms worsen or new symptoms develop. I explained what symptoms would indicate the need to return to the emergency department. Shared decision making was used. The patient voiced understanding of the treatment plan and is agreeable with it. Clinical impression UTI Nephrolithiasis History & Record Review Discussion w/independent historian: Patient and Significant other Additional record(s) reviewed:: Prior ED visit and Prior labs Lab Data Attestation: I reviewed the patient's lab results. Labs: Laboratory Results - last 24 hr 01/14/25 01/14/25 10:53 13:20 WBC 11.6 H RBC 4.31 Hgb 12.9 Hct 40.7 MCV 94.4 MCH 29.9 MCHC 31.7 L RDW Std Deviation 43.8 RDW Coeff of Serafin 12.5 Plt Count 314 MPV 10.0 Immature Gran % (Auto) 0.300 Neut % (Auto) 90.1 H Lymph % (Auto) 7.6 L [place] % (Auto) 0.3 Eos % (Auto) 1.3 Baso % (Auto) 0.4 Absolute Neuts (auto) 10.4 H Absolute Lymphs (auto) 0.88 Nucleated RBC % 0 Sodium 143 Potassium 3.9 Chloride 109 H Carbon Dioxide 21.5 Anion Gap 13 BUN 21 H Creatinine 0.66 L Estim Creat Clear Calc 46.95 L Est GFR (MDRD) Non-Af 90 BUN/Creatinine Ratio 32.7 H Glucose 96 Calcium 9.9 Urine Color Yellow Urine Clarity Clear Urine pH 5.0 Ur Specific [place] 1.020 Urine Protein 15 H Urine Glucose (UA) Normal Urine Ketones Negative Urine Occult Blood 250 H Urine Nitrite Positive H Urine Bilirubin Negative Urine Urobilinogen Normal Ur Leukocyte Esterase 100 H Urine RBC 5-10 SEEN Urine WBC 0-5 SEEN Ur Squamous Epith Cells 0 SEEN Urine Bacteria 2+ Urine Mucus 0 SEEN Radiography Diagnostic Testing: Clinical Impression(s) from Imaging Studies Abdomen/Pelvis CT 01/14/25 13:00 IMPRESSION: Right hydronephrosis and right hydroureter due to a 5.2 mm calculus in the distal portion of the right ureter just proximal to the right ureterovesical junction. Multiple small gallstones along the dependent portion the gallbladder lumen. The gallbladder slightly distended. Hiatal hernia. Reading Location: [id number] Discharge Plan Triage Chief Complaint: Flank Pain ED Provider: Felicita Ambrosio Dx/Rx/DC Orders Clinical Impression: Nephrolithiasis, UTI (urinary tract infection) Instructions: UTIs, ED Urine Strainer, ED Kidney Stone with Pain Prescriptions: New ciprofloxacin HCl [Cipro] 500 mg tablet 500 mg PO BID 7 Days Qty: 14 0RF tamsulosin [Flomax] 0.4 mg capsule 0.4 mg PO QHS Qty: 14 0RF No Action fluoxetine 40 mg capsule 40 mg PO DAILY atorvastatin 20 mg tablet 20 mg PO QHS Patient Comments: PT THINKS SHE IS TAKING SOMETHING FOR CHOLESTEROL AND THAT IT MAY BE ATORVASTATIN alendronate 70 mg tablet 70 mg PO QWEEK Rx Instructions: weekly. omeprazole 20 mg capsule,delayed release(DR/EC) 20 mg PO DAILY calcium carbonate 200 mg calcium (500 mg) Tablet,Chewable 500 mg PO TIDCM Qty: 30 0RF cholecalciferol (vitamin D3) 25 mcg (1,000 unit) Tablet 50 mcg PO DAILY Qty: 0 0RF Therapeutic-M 9 mg iron-400 mcg Tablet 1 tab PO DAILYCM Qty: 0 0RF cyclobenzaprine 5 mg tablet 5 mg PO TID PRN (Reason: pain) levothyroxine 100 mcg tablet 100 mcg PO DAILY Patient Comments: [NO ORIGINAL SIG] acetaminophen 500 mg Tablet 1,000 mg PO Q8 PRN (Reason: pain) cephalexin 500 mg capsule 500 mg PO Q12 Qty: 14 0RF hydrocodone-acetaminophen 5-325 mg tablet 1 tab PO Q8H PRN (Reason: Pain) 3 Days Qty: 10 0RF Primary Care Provider: Apryl Gorman Referrals: Monika Chaidez MD [Med Staff - Active Staff, Urology] - As soon as possible Apryl Gorman, ENVIRONMENTAL PROJECTS ADVISOR-C [Primary Care Provider, Family Practice] Activity Restrictions/Additional Instructions: Take the antibiotic as prescribed. Take the Flomax nightly. The urologist office will call you either today or tomorrow for close follow-up. Your evaluation in the Emergency Department did not reveal any acute reason for admission. However, I want to emphasize that you may be early in the course of a disease process or illness even if it is not present. For this reason you should follow-up within 24 hours for reevaluation with either your primary care physician or if necessary back here in the Emergency Department. You should return to the Emergency Department immediately if your symptoms worsen or new symptoms develop. Print Language: Kyrgyz Disposition Disposition: Home, Self Care Discharge Date/Time: 01/14/25 16:09
== END 2025-01-14 16:09 | disposition home or self-care (01) ==
LOC: ED 11:47
PROVIDERS: Emergency Provider Student in an Organized Health Care Education/Training Program; PCP Nurse Practitioner Family; Visit Provider Student in an Organized Health Care Education/Training Program
DX: N13.6 Pyonephrosis (principal); K80.20 Calculus of gallbladder without cholecystitis without obstruction; I10 Essential (primary) hypertension; E78.5 Hyperlipidemia, unspecified; K44.9 Diaphragmatic hernia without obstruction or gangrene; K21.9 Gastro-esophageal reflux disease without esophagitis
CPT/HCPCS: 74176; 80048; 81001; 85025; 87077; 87086; 87088; 87186; 96374; 99283; A4216

== ENCOUNTER 2025-01-24 09:44 | Day surgery (SDC) | payer MEDICARE, SELFPAY ==
[2025-01-24] VITALS (10 sets, daily range): BP systolic 124–159; BP diastolic 71–90; PULSE 80–106; RESP 16–18; TEMP 36.4–37.1; O2SAT 85–97; BMI 26.2
--- NOTE | 2025-01-24 09:57 | EKG12_ITS ---
Test Reason : PREOP Blood Pressure : */* mmHG Vent. Rate : 85 BPM Atrial Rate : 85 BPM P-R Int : 152 ms QRS Dur : 72 ms QT Int : 416 ms P-R-T Axes : 68 20 50 degrees QTcB Int : 495 ms Sinus rhythm with Premature atrial complexes Prolonged QT Abnormal ECG When compared with ECG of 09-Oct-2024 13:58, Premature atrial complexes are now Present Confirmed by BK SCHMIDT, SHAUNNA ([id number]), senior editor ANA MARIA SOTO ([id number]) on 01/28/2025 9:45:08 AM Referred By: Monika Chaidez Confirmed By: SHAUNNA BOURGEOIS MD
[2025-01-24] MEDS: Lactated Ringers 1,000 ML 15 ML IV (10:24)
--- NOTE | 2025-01-24 11:13 | PRE.ANES_ITS ---
ASA Classification* ASA Classification ASA Classification: 3 Assessment & Plan Anesthesia* Anesthesia Assessment Anesthesia Assessment: Discussed sedation and/or anesthesia options, risks, benefits, and alternatives with patient/parents/legal guardian/POA. Questions invited. The patient/parents/legal guardian/POA seems to understand and agrees to proceed with anesthesia plan. Reviewed the physical assessment, medical history, allergy history and patient home medications list prior to surgery/procedure/anesthetic and documented any changes. Performed airway and anesthesia risk assessments. Anesthesia Type Anesthesia Type: General History Source History Obtained from:: Patient and Chart Anesthesia Focused Assessment* Temperature: 98.7 F Pulse Rate: 80 Blood Pressure: 159/71 Respiratory Rate: 18 Pulse Ox: 97 Oxygen Delivery Method: Room Air Airway Assessment Mouth opens: >3 cm Mallampati Score: IV Teeth Condition: Dentures (Patient has full upper dentures.) and Missing (Patient is missing several teeth on the bottom. Rest of the teeth are tight.) Neck Range of motion (ROM): Limited ROM (Slight Decrease) Comment: Somewhat short thyromental distance. Labs Anesthesia Preop lab: CBC WBC, (4.4-11.0) 11.6 K/mm3 H 01/14/25, 10:53 RBC, (4.2-5.4) 4.31 M/mm3 01/14/25, 10:53 Hgb, (12.0-15.0) 12.9 g/dL 01/14/25, 10:53 Hct, (37-47) 40.7 % 01/14/25, 10:53 Plt Count, (150-450) 314 K/mm3 01/14/25, 10:53 CHEMISTRY Potassium, (3.3-5.1) 3.9 mmol/L 01/14/25, 10:53 Sodium, (133-145) 143 mmol/L 01/14/25, 10:53 Magnesium, (1.5-2.2) 2.0 mg/dL 10/09/24, 13:20 Phosphorus, (2.5-4.9) 3.6 mg/dL 11/03/23, 11:50 BUN, (4-19) 21 mg/dL H 01/14/25, 10:53 Creatinine, (0.70-1.20) 0.66 mg/dL L 01/14/25, 10:53 Glucose, (70-99) 96 mg/dL 01/14/25, 10:53 TSH, (0.300-4.200) 16.400 uIU/mL H 10/09/24, 13:20 COAG PT, (11.7-14.9) 14.3 SECONDS 09/08/22, 05:35 Pre-Assessment Diagnosis/Proposed Procedure Planned Operative Procedure(s): (R) Cysto, right ureteroscopy, laser litho, stone basket extraction, stent insertion Anesthesia History 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 When Was Last Pacemaker Check QUESTION #4 FULL TEXT: You/Your Family Experience fever (hyperthermia) with Anesthesia Last Oral Intake Last Oral intake: Last Oral Intake NPO since 22:00 01/24/25 10:10 Meds taken in AM with sips of No 01/24/25 10:10 water? Meds patient instructed to take am of surgery PONV PONV - manager mechanical maintenance: PONV - manager mechanical maintenance Female Yes 01/17/25 15:23 HX of Motion Sickness No 01/17/25 15:23 HX of N/V After Surgery No 01/17/25 15:23 Non-Smoker Yes 01/17/25 15:23 Duration of Surgery greater No 01/17/25 15:23 than 60 minutes Number of Risk Factors 2 01/17/25 15:23 PONV Score Moderate Risk 01/17/25 15:23 Height & Weight Height & Weight: Anesthesia: Height & Weight Height 4 ft 11 in 01/24/25 10:10 Weight: 59 kg 01/24/25 10:10 Body Mass Index (BMI) 26.2 01/24/25 10:10 Respiratory Assessment Respiratory Assessment - manager mechanical maintenance: Respiratory Tract Infection Hx - manager mechanical maintenance Hx Respiratory Tract Infection No 01/17/25 15:23 STOP Sleep Apnea STOP Sleep Apnea - manager mechanical maintenance: STOP Sleep Apnea - manager mechanical maintenance Hx Hypertension No 01/17/25 15:23 Hx Sleep Apnea No 01/17/25 15:23 CPAP No 01/17/25 15:23 BIPAP No 01/17/25 15:23 Do you snore loudly (louder No 01/17/25 15:23 than talking or can be heard Do you often feel tired/ No 01/17/25 15:23 fatigued/ sleepy during daytime? Has anyone observed you stop No 01/17/25 15:23 breathing during sleep? STOP Results Negative 01/17/25 15:23 QUESTION #5 FULL TEXT : Do you snore loudly (louder than talking or can be heard through closed doors)? 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 Specify any problems Hx of Preganancy in last 3 No 01/17/25 15:23 Months Nurse Filling Out Transfusion VCHRISTIN 01/17/25 15:23 & Questions: Date: 01/17/25 01/17/25 15:23 Time: 15:24 01/17/25 15:23 Patient unable to answer at this time (ie. confused, unrespo /Reproduction History /Reproductive History - manager mechanical maintenance: /Reproductive Hx- manager mechanical maintenance Hx Now No 01/17/25 15:23 Gestational Age (in weeks): EDC: Hx Hx Para Hx Section SAB No 01/17/25 15:23 Does the father of the baby or his family experience fever w Father of the baby Malignant Hypertension history comment Active Medications Active Medications: Current Medications Generic Name Dose Route Start Last Admin Trade Name Brice PRN Reason Stop Dose Admin Lactated Ringer's 1,000 mls @ 15 mls/hr 01/24/25 10:00 01/24/25 10:24 IV 15 mls/hr .Q48H LUANA Administration PFSH Medical History Wears dentures Wears glasses Post-menopausal Anxiety Thyroid disease Risk for falls Difficulty swallowing History of echocardiogram Poor historian Non-smoker Sleep apnea Hypertension Migraines Chronic anemia Obesity Anxiety and depression GERD (gastroesophageal reflux disease) HLD (hyperlipidemia) PAF (paroxysmal atrial fibrillation) Fibromyalgia Osteoporosis Paroxysmal atrial fibrillation T12 compression fracture Closed right hip fracture Syncope Hypothyroid Home Medications Medication Instructions Recorded Last Taken Type alendronate 70 mg tablet 70 mg PO QWEEK osteoporosis 09/07/22 01/17/25 History atorvastatin 20 mg tablet 20 mg PO QHS HLD 09/07/22 History fluoxetine 40 mg capsule 40 mg PO DAILY depression 01/23/25 History omeprazole 20 mg capsule,delayed 20 mg PO DAILY GERD 0 09/07/22 01/23/25 History release calcium carbonate 500 mg (2.5 x 200 mg calcium (500 09/10/22 01/14/25 Rx mg)) PO TIDCM supplement #30 tabs cholecalciferol (vitamin D3) 25 50 mcg (2 x 25 mcg (1, 000 unit)) 05/22/24 01/14/25 Rx mcg (1,000 unit) tablet PO DAILY #0 tabs multivitamin-iron 9 mg-folic acid 1 tab PO DAILYCM #0 tabs 05/22/24 01/14/25 Rx 400 mcg-calcium and minerals tablet (Therapeutic-M) acetaminophen 500 mg tablet 1,000 mg PO Q8 PRN pain 08/21/24 History cyclobenzaprine 5 mg tablet 5 mg PO TID PRN pain 10/0901/23/25 History levothyroxine 125 mcg tablet 125 mcg PO DAILY 01/17/25 01/23/25 History Allergy/AdvReac Type Severity Reaction Status Date / Time codeine Allergy Unknown Verified 01/24/25 10:06 codeine phosphate (From AdvReac Unknown Verified 01/24/25 10:06 Tylenol-Codeine #3) nabumetone (From Relafen) AdvReac Unknown Verified 01/24/25 10:06 naproxen AdvReac Unknown Verified 01/24/25 10:06 Family History Mother Cancer Father Cancer Surgical History S/P ORIF (open reduction internal fixation) fracture History of section H/O ovarian cystectomy History of total right hip replacement S/P kyphoplasty S/P ORIF (open reduction internal fixation) fracture Social History household members: spouse Smoking Status: Never smoker alcohol intake: never substance use type: does not use Review of Systems (Anesthesia) ROS Narrative System reviewed and no additional complaints, except as documented.
--- NOTE | 2025-01-24 11:20 | CALC_PTH ---
PATIENT: MICAELA COCHRAN [place] [facility] [place][id number] AGE/SX: 79/F ROOM: RE01/24/[address]: Dr. Monika Chaidez MD : [id number] BED: DIS: 01/24/2025 SPEC #: [id number] RECD: 01/24/25 12:22 STATUS: LAURA ESTRELLA #: [id number] VIDAL: 01/24/25 11:[address]: Monika Chaidez DEPT: SURGICAL PATHOLOGY RECD BY: Lokesh Leon ENTERED: 01/24/25 13:23 SP TYPE: Calculi OTHR DR: Apryl Gorman, OSKAR-C Tissues: A - CALCULI Procedures: Surgery Specimen Level I HEADER OPERATION: Cysto, right ureteroscopy, laser lithotripsy, stone basket extraction PRE-OP DIAGNOSIS: Right ureteral stone, left renal stone, hydronephrosis TISSUE SUBMITTED: A- Right ureteral calculi GROSS DIAGNOSIS A. Right ureter: - Urinary calculi submitted for chemical analysis (gross examination only) COMMENT The calculus is submitted in its entirety for chemical stone analysis. The results from this study will be reported separately. GROSS DESCRIPTION A. Received fresh labeled the patient's name and date of . Designated as "right ureteral calculi in OR" are 2 brown irregular calculi, 0.2 cm each. No sections are submitted. The specimen is for gross examination only. The specimen is sent for stone analysis. AR 01/24/2025 CPT:61351
--- NOTE | 2025-01-24 11:24 | PCM.HP.BLA ---
History and Physical Date of Admission: 01/24/25 Date of Service: 01/15/25 MR#: [id number] Acct: [id number] Name: BRIANNE COCHRAN Rep #: [id number] : 1945 Provider: Dr. 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 Required: No Accompanied by: Is patient in pain?: No Allergies codeine Allergy (Verified 01/24/25 10:06) Unknown codeine phosphate (From Tylenol-Codeine #3) Adverse Reaction (Verified 01/24/25 10:06) Unknown nabumetone (From Relafen) Adverse Reaction (Verified 01/24/25 10:06) Unknown naproxen Adverse Reaction (Verified 01/24/25 10:06) Unknown Medications Medication Instructions Recorded Confirmed Type alendronate 70 mg tablet 70 mg PO QWEEK osteoporosis 09/07/22 01/24/25 History atorvastatin 20 mg tablet 20 mg PO QHS HLD 09/07/22 01/24/25 History fluoxetine 40 mg capsule 40 mg PO DAILY depression 09/07/22 01/24/25 History omeprazole 20 mg capsule,delayed 20 mg PO DAILY GERD 09/07/22 01/24/25 History release calcium carbonate 500 mg (2.5 x 200 mg calcium (500 09/10/22 01/24/25 Rx mg)) PO TIDCM supplement #30 tabs cholecalciferol (vitamin D3) 25 50 mcg (2 x 25 mcg (1,000 unit)) 05/22/24 01/24/25 Rx mcg (1,000 unit) tablet PO DAILY #0 tabs multivitamin-iron 9 mg-folic acid 1 tab PO DAILYCM #0 tabs 05/22/24 01/24/25 Rx 400 mcg-calcium and minerals tablet (Therapeutic-M) acetaminophen 500 mg tablet 1,000 mg PO Q8 PRN pain 08/21/24 01/24/25 History cyclobenzaprine 5 mg tablet 5 mg PO TID PRN pain 10/09/24 01/24/25 History levothyroxine 125 mcg tablet 125 mcg PO DAILY 01/17/25 01/24/25 History Have you fallen in the past year?: No Nurse's Note: bladder scan PVR 14cc PFSH Medical History Wears dentures Wears glasses Post-menopausal Anxiety Thyroid disease Risk for falls Difficulty swallowing History of echocardiogram Poor historian Non-smoker Sleep apnea Hypertension Migraines Chronic anemia Obesity Anxiety and depression GERD (gastroesophageal reflux disease) HLD (hyperlipidemia) PAF (paroxysmal atrial fibrillation) Fibromyalgia Osteoporosis Paroxysmal atrial fibrillation T12 compression fracture Closed right hip fracture Syncope Hypothyroid Surgical History S/P ORIF (open reduction internal fixation) fracture History of section H/O ovarian cystectomy History of total right hip replacement S/P kyphoplasty S/P ORIF (open reduction internal fixation) fracture Family History Mother Cancer Father Cancer Social History household members: spouse Smoking Status: Never smoker alcohol intake: never substance use type: does not use HPI HPI Urology Chief Complaint: new patient stones Details: BRIANNE COCHRAN, is a 79 F. Brianne is a new patient here after being diagnosed with a right ureteral stone with urinary tract infection. This is the first stone she has struggled with. She started having pain about 2 weeks ago with right sided back pain. No nauesa, vomiting, fever, chills, dysuria. There is no gross hematuria. The pain is the issue. She has chronic pain, and this is worse than her usual pain. She is still having intermittent significant pain. She was given cipro and flomax in the ER. ROS Const Constitutional: No chills, fatigue, fever(s), headache(s), night sweats, weakness, weight change, abnormal sleep pattern or change in appetite Eyes Eyes: No change in vision ENT ENT: No headache(s) or dry mouth Resp Respiratory: No cough, chest congestion, shortness of breath or wheezing Cardio Cardiology: Positive for other (No chest pain.); No shortness of breath, irregular heart rhythm or lightheadedness Gastro GI: Positive for other (No nausea.); No abdominal pain, change in bowel habits, constipation, diarrhea or vomiting Musc Musculoskeletal: Positive for back pain; No abnormal gait Skin Skin: No yellowing of the eye, lesions, itchy eyes, rash or skin ulcer Neuro Neurology: No abnormal gait, confusion, dizziness, weakness, headache(s) or memory loss Psych Psychiatric: No abnormal sleep pattern, No change in appetite, No confusion and No memory loss Endo Endocrine: No fatigue, increased thirst/drinking or weight change Aller/Imm Allergy/Immunologic: No itchy eyes or wheezing Riky/Lymp Hematologic/Lymphatic: No easy bleeding, easy bruising or enlarged lymph nodes Exam Const General: cooperative, healthy appearing, comfortable and no acute distress [facility] Head: normocephalic and atraumatic Ears: hearing grossly normal bilaterally and external ears normal Nose: external nose normal Eyes General: appearance normal, both eyes and all related structures Neck Neck: normal visual inspection and trachea midline Chest Chest palpation & inspection: normal inspection of the chest Resp Effort & Inspection: normal respiratory effort, able to speak in complete sentences and symmetric chest movement Cardio Rate: regular rate GI Inspection: normal to inspection Palpation: soft and nontender General: CVA tenderness on the right Skin General: no rashes or lesions noted Neuro General: patient alert, patient awake, patient oriented x3 and CN's II-XI intact bilaterally Extrem General: normal to inspection Psych Appearance: grossly normal and well kempt Mental Status: mental status grossly normal Results POC Urinalysis w/Micro Office Urine Color Last Edit by Felicita Cancino on 01/15/25 13:28 Office Urine Clarity Last Edit by Felicita Cancino on 01/15/25 13:28 Office Urine Glucose Negative Last Edit by Felicita Cancino on 01/15/25 13:28 Office Urine Ketones Negative Last Edit by Felicita Cancino on 01/15/25 13:28 Office Urine Bilirubin Negative Last Edit by Felicita Cancino on 01/15/25 13:28 Office Urine Urobilinogen 0.2 mg/dL Last Edit by Felicita Cancino on 01/15/25 13:28 Off Ur Spec [place] 1.030 Last Edit by Felicita Cancino on 01/15/25 13:28 Office Urine pH 5.5 Last Edit by Felicita Cancino on 01/15/25 13:28 Office Urine Protein 1+ Last Edit by Felicita Cancino on 01/15/25 13:28 Office Urine Blood Large Last Edit by Felicita Cancino on 01/15/25 13:28 Office Urine Blood Hemolyzed Negative Last Edit by Felicita Cancino on 01/15/25 13:28 Office Urine Nitrate Negative Last Edit by Felicita Cancino on 01/15/25 13:28 Off Ur Leukocytes Positive Last Edit by Felicita Cancino on 01/15/25 13:28 Off Ur WBC Microscopic Last Edit by Felicita Cancino on 01/15/25 13:28 Off Ur RBC Microscopic Last Edit by Felicita Cancino on 01/15/25 13:28 Off Ur Bacteria Microscopic Last Edit by Felicita Cancino on 01/15/25 13:28 leuks 125 Coding Level of Care Code Off vis,new,level 4 Diagnoses Right ureteral stone N20.1 Left renal stone N20.0 Hydronephrosis N13.30 Assessment and Plan Assessment and Plan (1) Right ureteral stone: Status: Acute (2) Left renal stone: Status: Acute (3) Hydronephrosis: Status: Acute Orders: Orders POC UA Automated w/Microscopy 01/15/25 N39.0 - Urinary tract infection, site not specified Medications: New oxycodone-acetaminophen 5-325 mg 1 TAB PO TID 7 days PRN 20 tabs 0RF pain N20.1 - Calculus of ureter Discontinued hydrocodone-acetaminophen 5-325 mg Discontinued Reason: Order Completed 1 TAB PO Q8H 3 days PRN 10 TABLETS 0RF Pain M54.50 - Low back pain, unspecified cephalexin Discontinued Reason: Order Completed 500 mg PO Q12 14 CAPSULES 0RF Plan Details Additional Comments: Schedule for cystoscopy with right ureteroscopy, laser lithotripsy, stone basket extraction, right ureteral stent insertion Pain control Urine culture The procedure, recovery and expectations were explained. The risks, benefits and alternatives were discussed, including but not limited to, the risks of anesthesia, bleeding, infection, injury, pain and the need for further intervention. We have discussed the risk of exposure to and/or potential harm posed by the COVID-19 virus with having a surgery/procedure at this time. A joint decision was made at this time to proceed with the scheduled surgery/procedure as indicated on the consent form Clinical Quality Measures Falls Risk Screening/Assistive Devices Have you fallen in the past year?: No 01/24/25 1124 <Electronically signed by Monika Chaidez MD> Date Monika Chaidez MD
[2025-01-24] MEDS: Cefazolin 1 GM/5 ML Vial 2 GM IV (11:30)
--- NOTE | 2025-01-24 11:31 | DCINST_ITS ---
Discharge Instructions Diet Discharge Diet: No restrictions Activity Discharge Activity: Return to Normal Activity Dressing / Incision Call your doctor if you observe: Fever of 101 or Higher, Inability to urinate and Inability to have a bowel movement Follow Up Care Please Follow Up With: Monika Chaidez MD Test Results: Test results from this visit will be discussed in further detail at your follow- up appointment, if applicable. Discharge Plan Admission Attending Provider: Monika Chaidez Primary Care Provider: Apryl Gorman Instructions Print Language: Surinamese Discharge Orders/Prescriptions Prescriptions: New oxycodone-acetaminophen 5-325 mg tablet 1 tab PO Q8H PRN (Reason: pain) 3 Days Qty: 10 0RF cephalexin 500 mg capsule 500 mg PO Q12 3 Days Qty: 6 0RF ondansetron 4 mg tablet,disintegrating 4 mg PO Q8H PRN (Reason: nausea and vomiting) Qty: 10 0RF phenazopyridine 100 mg tablet 100 mg PO TID PRN (Reason: pain) 30 Days Qty: 30 3RF Continued fluoxetine 40 mg capsule 40 mg PO DAILY atorvastatin 20 mg tablet 20 mg PO QHS Patient Comments: PT THINKS SHE IS TAKING SOMETHING FOR CHOLESTEROL AND THAT IT MAY BE ATORVASTATIN alendronate 70 mg tablet 70 mg PO QWEEK Rx Instructions: weekly. omeprazole 20 mg capsule,delayed release(DR/EC) 20 mg PO DAILY calcium carbonate 200 mg calcium (500 mg) Tablet,Chewable 500 mg PO TIDCM Qty: 30 0RF cholecalciferol (vitamin D3) 25 mcg (1,000 unit) Tablet 50 mcg PO DAILY Qty: 0 0RF Therapeutic-M 9 mg iron-400 mcg Tablet 1 tab PO DAILYCM Qty: 0 0RF cyclobenzaprine 5 mg tablet 5 mg PO TID PRN (Reason: pain) levothyroxine 125 mcg tablet 125 mcg PO DAILY acetaminophen 500 mg Tablet 1,000 mg PO Q8 PRN (Reason: pain) Referrals / Follow Up: Apryl Gorman, [employer] [Primary Care Provider, Family Practice] Disposition Disposition (needs filled in before D/C Order can be placed): Home, Self Care
[2025-01-24] MEDS: Lidocaine 1% (5 ml sdv) 5 ML Vial IV (11:34)
[2025-01-24] MEDS: fentaNYL 100 MCG/2 ML Ampul 50 MCG IV (11:34)
--- NOTE | 2025-01-24 11:35 | OP.PCM_ITS ---
Multi Select Codes Urology Urology Charge Forwarding-multi code: [id number] Cysto w/ insert Ureteral Stent and Attention Flor Operative Report (Standard) Operative Information Date of Procedure: 01/24/25 Pre-Operative Diagnosis: Right ureteral calculus Post-Operative Diagnosis: Same Surgery/Procedure Performed: Cystoscopy, right ureteroscopy, thulium laser lithotripsy, stone basket extraction, right ureteral stent insertion blower feeder dyed raw stock: No Type of Anesthesia: General RN Documented Start/Stop Times: Operation Date: 01/24/25 11:20 Case Time Into Pre-Op 01/24/25 09:57 Out of Pre-Op 01/24/25 11:15 Anesthesia Start 01/24/25 11:27 Into Room 01/24/25 11:27 Procedure Start 01/24/25 11:46 Procedure End 01/24/25 12:01 Anesthesia End 01/24/25 12:13 Out of Room 01/24/25 12:13 Into Recovery 01/24/25 12:15 Procedure Start Time: 11:46 Procedure Stop Time: 12:01 Select all DRAINS/GRAFTS/IMPLANTS that apply: Drains Drain details: 6 Jamaican x 20 cm JJ stent Estimated Blood Loss: <5cc Specimen collected: Yes Description of specimen(s) removed: Right ureteral stone fragments Description of surgery: The patient was taken to the operating room and placed on the operating room table. Anesthesia monitored the head, neck, airway, IV access and vital signs t hroughout the case. Once anesthesia was appropriate ministered, she was placed into dorsolithotomy position was prepped and draped in usual sterile fashion. The cystoscope was inserted through the urethra under direct visualization into the urinary bladder. Bladder mucosa revealed no evidence of mass, erythema, ulceration or foreign body. The right ureteral orifice was intubated with a 0.035 Glidewire that advanced into the renal pelvis is seen on fluoroscopy. Alongside of this safety wire, the semirigid ureteroscope was advanced into the distal ureter and the stone was identified. Using a 200 µm laser fiber, the stone was broken into small pieces that were removed with a stone basket. When the fragments were removed, the entire length of the ureter from the UPJ down to the ureteral orifice, the ureter was directly visualized revealing no evidence of laceration, injury or other abnormality. At this time the cystoscope was used with the pusher to backloaded the safety wire and a 6 Jamaican 20 cm JJ stent was placed over the wire into the renal pelvis with good positioning there and in the urinary bladder. The patient's bladder was then emptied and the cystoscope was removed. She was awakened and taken to the recovery room in good condition. There were no complications during the procedure. Surgical Findings: Distal right ureteral calculus, laser lithotripsy stone removal and stent. Complications Complications: No Admit VTE Documentation VTE Present on Admission: Yes VTE Mechan Device Prophylaxis: SCD's VTE Pharm Prophylaxis ordered?: No Reason prophylaxis not ordered: Treatment Not Indicated
--- NOTE | 2025-01-24 12:24 | PCM.POST.ANE ---
Anesthesia: Postop Eval I Current Vital Signs Temperature: 97.6 F Pulse Rate: 106 Blood Pressure: 145/89 Respiratory Rate: 16 Pulse Ox: 93 Oxygen Delivery Method: Nasal Cannula Oxygen Flow Rate (L/min): 3 Assessment Airway patent: Yes Spontaneous unlabored respirations: Yes Mental status: Awake and Calm nausea: No Vomiting: No Anesthesia Complication: No Fluid Hydration Crystalloid volume administer (ml): 300 Total IV fluid infused: 300 Progress Note Anesthesia document: Postop Eval 1 completed: Yes
--- NOTE | 2025-01-24 14:31 | POSTOPAN2_ITS ---
Anesthesia Postop Eval I Sum Postop Eval Completion status Anesthesia document: Postop Eval 1 completed: Yes Anesthesia Postop Eval I Summary Anesthesia Postop Eval I Summary: Anesthesia Postop Eval I: Assessment Summary Airway patent Yes 01/24/25 12:25 INDUSTRIAL REFRIGERATION MECHANIC.GDOTT Spontaneous unlabored Yes 01/24/25 12:25 INDUSTRIAL REFRIGERATION MECHANIC.GDOTT respirations Mental status Awake,Calm 01/24/25 12:25 INDUSTRIAL REFRIGERATION MECHANIC.GDOTT nausea No 01/24/25 12:25 INDUSTRIAL REFRIGERATION MECHANIC.GDOTT Vomiting No 01/24/25 12:25 INDUSTRIAL REFRIGERATION MECHANIC.GDOTT Anesthesia Postop Eval I: Fluid Summary Crystalloid volume administer 300 01/24/25 12:25 INDUSTRIAL REFRIGERATION MECHANIC.GDOTT (ml) Colloids volume administered ( ml) Blood Product volume administered (ml) Total IV fluid infused 300 01/24/25 12:25 INDUSTRIAL REFRIGERATION MECHANIC.GDOTT Anesthesia Postop Eval I: Summary Notes Anesthesia Complication No 01/24/25 12:25 INDUSTRIAL REFRIGERATION MECHANIC.GDOTT Anesthesia Complication Comment: Post-operative progress note Anesthesia: Postop Eval II Evaluation Mental status: Awake and Calm Pain Level: 0 nausea: No Vomiting: No Complications Anesthesia Complication: No
--- NOTE | 2025-01-24 14:31 | PCM.POSTANE2 ---
Anesthesia Postop Eval I Sum Postop Eval Completion status Anesthesia document: Postop Eval 1 completed: Yes Anesthesia Postop Eval I Summary Anesthesia Postop Eval I Summary: Anesthesia Postop Eval I: Assessment Summary Airway patent Yes 01/24/25 12:25 NURSE ORTHO.[email or web address] Spontaneous unlabored Yes 01/24/25 12:25 NURSE ORTHO.GDOTT respirations Mental status Awake,Calm 01/24/25 12:25 NURSE ORTHO.GDOTT nausea No 01/24/25 12:25 NURSE ORTHO.GDOTT Vomiting No 01/24/25 12:25 NURSE ORTHO.GDOTT Anesthesia Postop Eval I: Fluid Summary Crystalloid volume administer 300 01/24/25 12:25 NURSE ORTHO.GDOTT (ml) Colloids volume administered ( ml) Blood Product volume administered (ml) Total IV fluid infused 300 01/24/25 12:25 NURSE ORTHO.GDOTT Anesthesia Postop Eval I: Summary Notes Anesthesia Complication No 01/24/25 12:25 NURSE ORTHO.GDOTT Anesthesia Complication Comment: Post-operative progress note Anesthesia: Postop Eval II Evaluation Mental status: Awake and Calm Pain Level: 0 nausea: No Vomiting: No Complications Anesthesia Complication: No
== END 2025-01-24 14:31 | disposition home or self-care (01) ==
PROVIDERS: PCP Nurse Practitioner Family; Referring Provider Urology; Visit Provider Urology
DX: N13.2 Hydronephrosis with renal and ureteral calculous obstruction (principal); E78.5 Hyperlipidemia, unspecified; I10 Essential (primary) hypertension; G89.29 Other chronic pain; K21.9 Gastro-esophageal reflux disease without esophagitis
CPT/HCPCS: 52356; 52352; 00873; 76000; 82360; 88300; 93005; C1769; C2617; J2405

== ENCOUNTER 2025-02-25 16:27 | Observation (INO) | payer MEDICARE, SELFPAY ==
[2025-02-25] VITALS (7 sets, daily range): BP systolic 139–182; BP diastolic 74–98; PULSE 79–99; RESP 14–16; TEMP 36.6–37.1; O2SAT 92–99; BMI 40.8; BMI 25.6
--- NOTE | 2025-02-25 17:55 | EX.ED.DYSGE1 ---
HPI History of Present Illness Chief Complaint: Fall [facility] Medical History Wears dentures Wears glasses Post-menopausal Anxiety Thyroid disease Risk for falls Difficulty swallowing History of echocardiogram Poor historian Non-smoker Sleep apnea Hypertension Migraines Chronic anemia Obesity Anxiety and depression GERD (gastroesophageal reflux disease) HLD (hyperlipidemia) PAF (paroxysmal atrial fibrillation) Fibromyalgia Osteoporosis Paroxysmal atrial fibrillation T12 compression fracture Closed right hip fracture Syncope Hypothyroid Home Medications ?Medication ?Instructions ?Recorded ?Last Taken ?Type alendronate 70 mg tablet 70 mg PO QWEEK osteoporosis 09/07/22 02/21/25 History atorvastatin 20 mg tablet 20 mg PO QHS HLD 09/07/22 02/24/25 History fluoxetine 40 mg capsule 40 mg PO DAILY depression 09/07/22 02/24/25 History omeprazole 20 mg capsule,delayed 20 mg PO DAILY GERD 09/07/22 02/24/25 History release calcium carbonate 500 mg (2.5 x 200 mg calcium (500 09/10/22 02/25/25 Rx mg)) PO TIDCM supplement #30 tabs cholecalciferol (vitamin D3) 25 50 mcg (2 x 25 mcg (1,000 unit)) 05/22/24 02/24/25 Rx mcg (1,000 unit) tablet PO DAILY #0 tabs multivitamin-iron 9 mg-folic acid 1 tab PO DAILYCM #0 tabs 05/22/24 02/24/25 Rx 400 mcg-calcium and minerals tablet (Therapeutic-M) acetaminophen 500 mg tablet 1,000 mg PO Q8 PRN pain 08/21/24 08/21/24 History cyclobenzaprine 5 mg tablet 5 mg PO TID PRN pain 10/09/24 01/23/25 History levothyroxine 125 mcg tablet 125 mcg PO DAILY 01/17/25 02/24/25 History Allergy/AdvReac Type Severity Reaction Status Date / Time codeine Allergy Unknown Verified 02/25/25 16:32 codeine phosphate (From AdvReac Unknown Verified 02/25/25 16:32 Tylenol-Codeine #3) nabumetone (From Relafen) AdvReac Unknown Verified 02/25/25 16:32 naproxen AdvReac Unknown Verified 02/25/25 16:32 Family History Mother Cancer Father Cancer Surgical History S/P ORIF (open reduction internal fixation) fracture History of section H/O ovarian cystectomy History of total right hip replacement S/P kyphoplasty S/P ORIF (open reduction internal fixation) fracture Social History household members: spouse Smoking Status: Never smoker alcohol intake: never substance use type: does not use EXAM Physical Exam Const Vital Signs: 02/25/25 16:27 02/25/25 18:17 02/25/25 18:25 Temperature 98.2 F Temperature Source Oral Pulse Rate 92 90 Respiratory Rate 16 14 Respiratory Effort Normal Respiratory Depth Normal Respiratory Pattern Normal Blood Pressure 182/95 H 175/98 H Blood Pressure Mean 124 123 Pulse Ox 99 97 Oxygen Delivery Method Room Air Room Air 02/25/25 19:00 02/25/25 20:00 02/25/25 21:00 Temperature Temperature Source Pulse Rate 79 Respiratory Rate Respiratory Effort Respiratory Depth Respiratory Pattern Blood Pressure 168/87 H 143/84 H 139/75 H Blood Pressure Mean 114 103 96 Pulse Ox 96 92 Oxygen Delivery Method MDM MDM MDM Narrative Medical decision making narrative: HISTORY OF PRESENT ILLNESS: Chief complaint: Confusion 79-year-old female history of debility, GERD, kidney stone, hypothyroid hyperlipidemia presents with confusion and report of fall. Per triage note patient came home and found patient on the floor. thinks patient fell however the patient remember that she fell patient with left forearm pain. Patient notes she felt confused earlier. Denies prodromal symptoms such as syncope. Denies chest pain, shortness of breath. Denies cough fever chills. Denies urinary complaints. Denies abdominal pain. Is unsure if she had any head trauma. REVIEW OF SYSTEMS: Pertinent positives: Fall, confusion, left forearm pain Pertinent negatives: As per HPI PHYSICAL EXAM: Nursing triage notes reviewed, Vital signs reviewed Constitutional: please see mdm HENT: MMM Eyes: Pupils equal round and reactive to light, Extraocular muscles intact Neck: No stridor, no JVD, full neck ROM, no midline cervical spine cefalexin deformities Lungs: Clear to auscultation, No wheezing or rales. No increased work of breathing, no conversational dyspnea, no accessory muscle use, no nasal flaring. No respiratory distress noted Heart: Regular rate and rhythm, No murmurs, No rubs and No gallops, 2+ distal pulses (radial, femoral, posterior tibial) in all extremities Abdomen: Soft, there is no tenderness, rigidity, rebound or guarding, no obvious peritoneal signs, no palpable pulsatile abdominal masses, no auscultated abdominal bruit : No CVAT Back: No midline step-offs deformities or tenderness to palpation to thoracic and lumbar spine Extremities: No edema, TTP over left mid forearm. No obvious deformities. Left upper extremity neurovascularly intact. No tenderness to palpation over left elbow or shoulder. Neuro: Patient was alert, oriented to person place and time. She follows commands. She had 5/5 strength of bilateral upper and lower extremities. Intact strength in upper and lower extremities. Intact coordination. Skin: No rash or lesions noted MEDICAL DECISION MAKING: Chief Complaint: please see [facility] External records reviewed: Reviewed prior inpatient record. Factors affecting care: As per [facility] Social determinants of health: elder History obtained from others: Consults: Internal Medicine (Dr. Perea) MDM Narrative: Patient was initially hemodynamically stable, afebrile and nontoxic-appearing. Exam with left forearm TTP otherwise no obvious signs of trauma. Patient's neurologic exam is intact. She is not altered here initially on exam however notes she has been more forgetful. I considered the following differential diagnosis: ICH, CVA, metabolic or infectious encephalopathy, bony abnormality left forearm, thyroid dysfunction While I considered thyroid dysfunction the patient's vital signs history and physical exam do not suggest a thyroid emergency such as thyroid storm or myxedema coma. I obtained a broad lab and imaging workup to further determine if the patient was suffering from a life-threatening etiology. Initially treated the patient's forearm pain with Tylenol ALL IMAGES (IF OBTAINED) HAVE BEEN PERSONALLY REVIEWED AND INTERPRETED BY MYSELF. Jiflc-wa-ozzo glucose acceptable at 104 Xray of the left forearm was read and reviewed personally by myself shows distal radial ulnar fracture. I have personally reviewed the patient's chest x-ray. Chest x-ray is unremarkable for pulmonary edema, pneumothorax, pneumonia or focal cardiopulmonary abnormality. EKG with normal sinus rhythm rate 95, normal axis, normal intervals, no STEMI CT scan of the brain showed no evidence of obvious ICH or acute traumatic injury CBC with leukocytosis suggestive of systemic inflammation, no anemia or thrombocytopenia BMP without evidence of significant electrolyte abnormalities, no anion gap, no acute kidney injury. Urinalysis is not consistent with acute infection however there is leuk esterase and bacteria so I did send for urine culture The patient typically walks with a walker. Given her inability to ambulate given broken arm and need for immobilization in sling as well as her altered mental status the patient should be admitted to the inpatient setting to undergo further evaluation and possible MRI, PT/OT and placement. Discussed with Dr. Perea. The patient and/or family, caregivers express understanding. The patient and/or family, caregivers agrees with the plan. Shared decision making: I will have a discussion with the patient and or visitors regarding risk/benefits of further testing or admission. They will be made aware of of the risk/benefits inherent in this decision they will be given the opportunity to voice understanding. Total critical care time today provided was at least 0 minutes. This excludes separately billable procedures. Critical care time (if documented) is secondary to the patient having high probability of clinically significant/life threatening deterioration in the patient's condition which required my urgent intervention. Impression: 1. Altered mental status 2. Left radial ulnar fracture 3. Inability to ambulate Dispo: Admit to [facility] floor This note was generated with [employer] dictation software. It may contain incorrect words, spelling, and punctuation that were not noted in review of the chart prior to signing. Lab Data Labs: Laboratory Results - last 24 hr 02/25/25 02/25/25 02/25/25 16:34 18:12 19:02 WBC 12.7 H RBC 4.34 Hgb 12.6 Hct 39.6 MCV 91.2 MCH 29.0 MCHC 31.8 L RDW Std Deviation 42.5 RDW Coeff of Serafin 12.8 Plt Count 346 MPV 9.7 Immature Gran % (Auto) 0.400 Neut % (Auto) 83.4 H Lymph % (Auto) 11.2 L Bowie % (Auto) 3.9 Eos % (Auto) 0.6 Baso % (Auto) 0.5 Absolute Neuts (auto) 10.6 H Absolute Lymphs (auto) 1.42 Nucleated RBC % 0 Sodium 139 Potassium 4.5 Chloride 103 Carbon Dioxide 23.8 Anion Gap 13 BUN 20 H Creatinine 0.71 Estim Creat Clear Calc 59.52 Est GFR (MDRD) Non-Af 88 BUN/Creatinine Ratio 27.6 H Glucose 107 H Calcium 9.2 Urine Color Yellow Urine Clarity Clear Urine pH 7.0 Ur Specific [place] 1.010 Urine Protein 15 H Urine Glucose (UA) Normal Urine Ketones Negative Urine Occult Blood 10 H Urine Nitrite Negative Urine Bilirubin Negative Urine Urobilinogen Normal Ur Leukocyte Esterase 100 H Urine RBC 0-5 SEEN Urine WBC 5-10 SEEN Ur Squamous Epith Cells 0-5 SEEN Ur Renal Epithelial Cell 0 SEEN Urine Bacteria 1+ Hyaline Casts 0-5 SEEN Urine Mucus 1+ POC Glucose 104 Radiography Diagnostic Testing: Clinical Impression(s) from Imaging Studies Brain CT 02/25/25 18:02 IMPRESSION: No acute intracranial process. Reading Location: [facility] Chest X-Ray 02/25/25 18:02 IMPRESSION: Bilateral multilevel rib deformities likely chronic although if there is concern for acute fractures, consider dedicated rib series or CT for further evaluation. Reading Location: [facility] Forearm X-Ray 02/25/25 18:03 IMPRESSION: 1. Nondisplaced impacted transverse fracture of the distal radial metadiaphysis. 2. Minimally displaced oblique fracture of the distal ulnar shaft. 3. Nondisplaced fracture at the tip of the ulnar styloid process. Reading Location: [facility] Discharge Plan Triage Chief Complaint: Fall Other Complaint: Confusion ED Provider: Arcenio Trammell Dx/Rx/DC Orders Prescriptions: No Action fluoxetine 40 mg capsule 40 mg PO DAILY atorvastatin 20 mg tablet 20 mg PO QHS Patient Comments: PT THINKS SHE IS TAKING SOMETHING FOR CHOLESTEROL AND THAT IT MAY BE ATORVASTATIN alendronate 70 mg tablet 70 mg PO QWEEK Rx Instructions: weekly. omeprazole 20 mg capsule,delayed release(DR/EC) 20 mg PO DAILY calcium carbonate 200 mg calcium (500 mg) Tablet,Chewable 500 mg PO TIDCM Qty: 30 0RF cholecalciferol (vitamin D3) 25 mcg (1,000 unit) Tablet 50 mcg PO DAILY Qty: 0 0RF Therapeutic-M 9 mg iron-400 mcg Tablet 1 tab PO DAILYCM Qty: 0 0RF cyclobenzaprine 5 mg tablet 5 mg PO TID PRN (Reason: pain) levothyroxine 125 mcg tablet 125 mcg PO DAILY acetaminophen 500 mg Tablet 1,000 mg PO Q8 PRN (Reason: pain) Primary Care Provider: Apryl Gorman Referrals: Apryl Gorman [employer] [Primary Care Provider, Family Practice] Print Language: Icelandic
--- NOTE | 2025-02-25 18:02 | CT_ITS ---
PROCEDURE: BRAIN/HEAD WITHOUT CONTRAST 02/25/2025 REASON FOR EXAM: FALL, QUESTIONABLE HEAD TRAUMA TECHNIQUE: Procedure Code: CTBR Modality: CT Procedure: BRAIN/HEAD WITHOUT CONTRAST Coronal and Sagittal reconstruction series were provided. One or more dose reduction techniques were used (e.g., Automated exposure control, adjustment of the mA and/or kV according to patient size, use of iterative reconstruction technique. RADIATION DOSE SUMMARY: DLP: 796 mGycm COMPARISON: 10/09/2024 FINDINGS: There is no acute infarct, intracranial hemorrhage, or mass effect. There is no hydrocephalus or significant midline shift. Dense calcifications within the bilateral basal ganglia, grossly unchanged. There is [id number] chronic microvascular ischemic changes and xarf-eb-rzswdylg parenchymal volume loss. No acute, depressed calvarial fractures. No large scalp hematomas. The paranasal sinuses are clear. CT/Brain/Head without Contrast IMPRESSION: No acute intracranial process. Reading Location: [id number]
--- NOTE | 2025-02-25 18:02 | EKG12_ITS ---
Test Reason : FALL Blood Pressure : */* mmHG Vent. Rate : 95 BPM Atrial Rate : 95 BPM P-R Int : 146 ms QRS Dur : 68 ms QT Int : 390 ms P-R-T Axes : 42 2 63 degrees QTcB Int : 490 ms Normal sinus rhythm Nonspecific ST and T wave abnormality QTcB >= 480 msec Abnormal ECG Confirmed by Renaldo Ruiz ([id number]), slot editor ANA MARIA SOTO ([id number]) on 02/27/2025 10:18:47 AM Referred By: Confirmed By: Renaldo Ruiz
--- NOTE | 2025-02-25 18:02 | RAD_ITS ---
PROCEDURE: CHEST 1 VIEW (PORTABLE) 02/25/2025 REASON FOR EXAM: FALL, CONFUSION TECHNIQUE: Frontal view of the chest. COMPARISON: 09/23/2024 FINDINGS: No focal consolidation. No pleural effusion or pneumothorax. Cardiac silhouette is within normal limits. Calcified aortic arch. Bilateral multilevel rib deformities likely chronic although if there is concern for acute fractures, consider dedicated rib series or CT for further evaluation. RAD/Chest 1 View (Portable) IMPRESSION: Bilateral multilevel rib deformities likely chronic although if there is concer n for acute fractures, consider dedicated rib series or CT for further evaluation. Reading Location: [id number]
--- NOTE | 2025-02-25 18:03 | RAD_ITS ---
PROCEDURE: LEFT FOREARM 2 VIEWS 02/25/2025 REASON FOR EXAM: FALL, LEFT FOREARM PAIN TECHNIQUE: Procedure Code: RADFA Modality: DX Procedure: FOREARM 2 VIEWS Laterality: Left COMPARISON: None. FINDINGS: Acute nondisplaced impacted transverse fracture of the distal radial metadiaphysis, without any discrete intra-articular extension appreciated. Minimally displaced oblique fracture of the distal ulnar shaft, and probable nondisplaced fracture at the tip of the ulnar styloid process. No dislocation. Carpal alignment appears maintained. Diffuse qualitative osteopenia. Generalized soft tissue swelling about the distal forearm/wrist. RAD/Forearm 2 Views IMPRESSION: 1. Nondisplaced impacted transverse fracture of the distal radial metadiaphysis . 2. Minimally displaced oblique fracture of the distal ulnar shaft. 3. Nondisplaced fracture at the tip of the ulnar styloid process. Reading Location: [id number]
[2025-02-25 18:24] LABS: Hematocrit 39.6 % (37-47); Hemoglobin 12.6 g/dL (12.0-15.0); Immature Granulocytes Count 0.050 X10^3/uL (0.0-0.0); Mean Corp Hgb Conc 31.8 g/dL (32-36); Mean Corpuscular Volume 91.2 fL (81-99); Mean Platelet Vol. 9.7 fl (6.2-12.0); NRBC Flagged by Analyzer 0 % (0-5); Platelet Count 346 K/mm3 (150-450); RBC Distribution Width CV 12.8 % (11.6-14.6); RBC Distribution Width SD 42.5 fl (35.1-43.9); Red Blood Count 4.34 M/mm3 (4.2-5.4); White Blood Count 12.7 K/mm3 (4.4-11.0)
[2025-02-25 18:43] LABS: Anion Gap 13 (5-15); BUN 20 mg/dL (4-19); BUN/Creat Ratio 27.6 RATIO (10-20); Calcium,Total 9.2 mg/dL (7.6-11.0); Carbon Dioxide 23.8 mmol/L (21.0-32.0); Chloride 103 mmol/L (98-108); Estimated Creatinine Clearance 59.52 ml/min (50-250); Glucose 107 mg/dL (70-99); Potassium 4.5 mmol/L (3.3-5.1)
[2025-02-25 19:20] LABS: Color, Urine Yellow (Yellow); Glucose, Dipstick Normal (Normal); Ketone-Dipstick Negative (Negative); Leukocyte Esterase-Dipstick 100 /ul (Negative); Nitrite-Dipstick Negative (Negative); Occult Blood-Urine 10 /ul (Negative); Protein-Dipstick 15 mg/dl (Negative); Specific Gravity, Urine 1.010 (1.002-1.030); Urine Bilirubin Dipstick Negative (Negative)
[2025-02-25] MEDS: 0.9% Normal Saline (500mL Bag) 500 ML 999 ML IV (20:29)
[2025-02-25 20:43] LABS: Mucous, Urine 1+ /hpf (<or=2+); Red Blood Cells-Urine 0-5 SEEN /hpf (0-5); Squamous Epithelial Cells - UA 0-5 SEEN /hpf (5-10)
--- NOTE | 2025-02-25 20:56 | ED.RN ---
Attempted to ambulate patient. She normally uses a walker and cannot use left arm as it is splinted and in a sling. attemped with cane but pt. is unsteady
--- NOTE | 2025-02-25 20:58 | PCM.HP.STD ---
HPI - General General Date of Admission: 02/25/25 Date of Service: 02/25/25 Chief Complaint: Fall with left forearm pain and weakness HPI Narrative MICAELA COCHRAN, is a 79 F who presented to [facility] ED on 02/25/2025 with weakness and left forearm pain after a fall at home. Medical history significant for chronic debility, osteoporosis, hyperlipidemia, hypothyroidism, GERD and anxiety/depression. Patient lives at home with her and uses a walker for ambulation. She was at home alone today when she had a mechanical fall onto her left side. She had left arm pain after the fall and was unable to get up on her own and had to wait till her got home in order to get up. In the ED she was mildly hypertensive, was otherwise in normal sinus rhythm, afebrile and stable on room air at rest. WBC count 12.6, CBC and BMP otherwise benign. UA unremarkable. CT brain and chest x-ray unremarkable. Left forearm x-ray with nondisplaced impacted transverse fracture of the distal radial metadiaphysis, minimally displaced oblique fracture of the distal ulnar shaft, and nondisplaced fracture of the tip of the ulnar styloid process. She was placed in a cast and sling in the ED and given Tylenol for pain control. Staff attempted to ambulate her and she was not able to ambulate due to weakness and balance issues with a cast and sling on her arm. Hospitalist was then contacted for admission. I saw the patient at bedside in the ED. Patient was sitting back comfortably in bed, answering questions appropriately, in no acute distress. She reported minimal pain in her left arm currently. However, she noted that the cast and sling felt like a significant weight on her and it was difficult for her to move around. She denied any other acute concerns currently. Will be admitted for further management. [facility] Medical History Wears dentures Wears glasses Post-menopausal Anxiety Thyroid disease Risk for falls Difficulty swallowing History of echocardiogram Poor historian Non-smoker Sleep apnea Hypertension Migraines Chronic anemia Obesity Anxiety and depression GERD (gastroesophageal reflux disease) HLD (hyperlipidemia) PAF (paroxysmal atrial fibrillation) Fibromyalgia Osteoporosis Paroxysmal atrial fibrillation T12 compression fracture Closed right hip fracture Syncope Hypothyroid Home Medications ?Medication ?Instructions ?Recorded ?Last Taken ?Type alendronate 70 mg tablet 70 mg PO QWEEK osteoporosis 09/07/22 02/21/25 History atorvastatin 20 mg tablet 20 mg PO QHS HLD 09/07/22 02/24/25 History fluoxetine 40 mg capsule 40 mg PO DAILY depression 09/07/22 02/24/25 History omeprazole 20 mg capsule,delayed 20 mg PO DAILY GERD 09/07/22 02/24/25 History release calcium carbonate 500 mg (2.5 x 200 mg calcium (500 09/10/22 02/25/25 Rx mg)) PO TIDCM supplement #30 tabs cholecalciferol (vitamin D3) 25 50 mcg (2 x 25 mcg (1,000 unit)) 05/22/24 02/24/25 Rx mcg (1,000 unit) tablet PO DAILY #0 tabs multivitamin-iron 9 mg-folic acid 1 tab PO DAILYCM #0 tabs 05/22/24 02/24/25 Rx 400 mcg-calcium and minerals tablet (Therapeutic-M) acetaminophen 500 mg tablet 1,000 mg PO Q8 PRN pain 08/21/24 08/21/24 History cyclobenzaprine 5 mg tablet 5 mg PO TID PRN pain 10/09/24 01/23/25 History levothyroxine 125 mcg tablet 125 mcg PO DAILY 01/17/25 02/24/25 History Allergy/AdvReac Type Severity Reaction Status Date / Time codeine Allergy Unknown Verified 02/25/25 16:32 codeine phosphate (From AdvReac Unknown Verified 02/25/25 16:32 Tylenol-Codeine #3) nabumetone (From Relafen) AdvReac Unknown Verified 02/25/25 16:32 naproxen AdvReac Unknown Verified 02/25/25 16:32 Family History Mother Cancer Father Cancer Surgical History S/P ORIF (open reduction internal fixation) fracture History of section H/O ovarian cystectomy History of total right hip replacement S/P kyphoplasty S/P ORIF (open reduction internal fixation) fracture Social History household members: spouse Smoking Status: Never smoker alcohol intake: never substance use type: does not use ROS Constitutional Constitutional: Reports fatigue and weakness; Denies chills or fever(s) Cardiovascular Cardiovascular: Denies chest pain Respiratory/Chest Respiratory/Chest: Denies shortness of breath at rest Gastrointestinal Gastrointestinal: Denies abdominal pain Genitourinary Genitourinary: Denies dysuria Musculoskeletal Musculoskeletal: Denies arthralgias or myalgias Neurologic Neurologic: Denies dizziness, focal weakness, headache(s), numbness or tingling Vital Signs Vital Signs Vital Signs: 02/25/25 16:27 02/25/25 18:17 02/25/25 18:25 Temperature 98.2 F Temperature Source Oral Pulse Rate 92 90 Respiratory Rate 16 14 Respiratory Effort Normal Respiratory Depth Normal Respiratory Pattern Normal Blood Pressure 182/95 H 175/98 H Blood Pressure Mean 124 123 Pulse Ox 99 97 Oxygen Delivery Method Room Air Room Air 02/25/25 19:00 02/25/25 20:00 Temperature Temperature Source Pulse Rate 79 Respiratory Rate Respiratory Effort Respiratory Depth Respiratory Pattern Blood Pressure 168/87 H 143/84 H Blood Pressure Mean 114 103 Pulse Ox 96 Oxygen Delivery Method Weight Weight: 91.8 kg Body Mass Index (BMI) 40.8 Physical Exam Const alert, oriented x3 and no apparent distress Constitutional Narrative: Elderly female, class II obesity, mildly fatigued appearing, otherwise sitting back comfortably in bed, answering questions appropriately, in no acute distress. General Appearance: cooperative and comfortable HEENT normocephalic, head/scalp atraumatic, hearing grossly normal bilaterally, nasal mucous membranes and turbinates normal and moist oral mucous membranes Eyes PERRL, EOMs intact bilaterally and conjunctivae normal Neck full ROM Chest inspection of chest normal Resp normal respiratory effort, normal air movement, no use of accessory muscles and clear to auscultation bilaterally Cardio regular rate, regular rhythm, no murmurs and peripheral pulses 2+ throughout GI normal to inspection, nondistended, normoactive bowel sounds, soft to palpation, non-tender and non-distended Back/Spine normal ROM Extremity Extremity Narrative: Left arm with cast and sling in place. Neuro Speech: speech normal Psych mental status grossly normal Results Lab / Micro Data 02/25/25 18:12 02/25/25 18:12 Labs: Laboratory Results - last 24 hr 02/25/25 16:34: POC Glucose 104 02/25/25 18:12: WBC 12.7 H, RBC 4.34, Hgb 12.6, Hct 39.6, MCV 91.2, MCH 29.0, MCHC 31.8 L, RDW Std Deviation 42.5, RDW Coeff of Serafin 12.8, Plt Count 346, MPV 9.7, Immature Gran % (Auto) 0.400, Neut % (Auto) 83.4 H, Lymph % (Auto) 11.2 L, [place] % (Auto) 3.9, Eos % (Auto) 0.6, Baso % (Auto) 0.5, Absolute Neuts (auto) 10.6 H, Absolute Lymphs (auto) 1.42, Nucleated RBC % 0, Sodium 139, Potassium 4.5, Chloride 103, Carbon Dioxide 23.8, Anion Gap 13, BUN 20 H, Creatinine 0.71, Estim Creat Clear Calc 59.52, Est GFR (MDRD) Non-Af 88, BUN/Creatinine Ratio 27.6 H, Glucose 107 H, Calcium 9.2 02/25/25 19:02: Urine Color Yellow, Urine Clarity Clear, Urine pH 7.0, Ur Specific [place] 1.010, Urine Protein 15 H, Urine Glucose (UA) Normal, Urine Ketones Negative, Urine Occult Blood 10 H, Urine Nitrite Negative, Urine Bilirubin Negative, Urine Urobilinogen Normal, Ur Leukocyte Esterase 100 H, Urine RBC 0-5 SEEN, Urine WBC 5-10 SEEN, Ur Squamous Epith Cells 0-5 SEEN, Ur Renal Epithelial Cell 0 SEEN, Urine Bacteria 1+, Hyaline Casts 0-5 SEEN, Urine Mucus 1+ Imaging Radiology Impression Brain CT 02/25/25 18:02 IMPRESSION: No acute intracranial process. Reading Location: [facility] Chest X-Ray 02/25/25 18:02 IMPRESSION: Bilateral multilevel rib deformities likely chronic although if there is concern for acute fractures, consider dedicated rib series or CT for further evaluation. Reading Location: [facility] Forearm X-Ray 02/25/25 18:03 IMPRESSION: 1. Nondisplaced impacted transverse fracture of the distal radial metadiaphysis. 2. Minimally displaced oblique fracture of the distal ulnar shaft. 3. Nondisplaced fracture at the tip of the ulnar styloid process. Reading Location: [id number] Assessment & Plan Assessment/Plan (1) Debility: (2) Left forearm fracture: PLAN: Plan Patient is a 79-year-old female who presented to [facility] ED on 02/25/2025 with left arm pain and weakness after a mechanical fall at home. 1. Acute on chronic debility due to left forearm fractures and generalized weakness after a mechanical fall at home ? Admit under observation status to [facility]. PT/OT/case management consulted. Left forearm x-ray with nondisplaced impacted transverse fracture of the distal radial metadiaphysis, minimally displaced oblique fracture of the distal ulnar shaft, and nondisplaced fracture of the tip of the ulnar styloid process. CT brain unremarkable. Patient typically uses walker at home. Suspect she will need SNF placement on discharge. Appreciate therapy recommendations. Chronic medical conditions: ? Class II obesity: BMI 39 on admit. Complicates hospital course and care. ? Anxiety/depression: Stable. Continue home fluoxetine. ? GERD: Continue home PPI. ? Hypothyroidism: Continue home Synthroid. ? Osteoporosis: Continue home bisphosphonate on discharge. ? Hyperlipidemia: Continue home statin. ? Recent history of nephrolithiasis: Follows with Dr. Chaidez. S/p cystoscopy with stone basket extraction and right ureteral stent placement for right ureteral calculus on 01/24, with subsequent stent removal on 01/28. UA unremarkable on this admission patient with no concerns for UTI or kidney stone at this time. Continue outpatient follow-up. DVT prophylaxis: Lovenox CODE STATUS: Full code, verified Expected disposition: Likely SNF, 1 to 2 days Total clinical time spent by myself addressing the patient's medical issues, reviewing all the data, and collaborating with patient's care team: 61 minutes. Charges/Coding Visit Charges Inpatient E&M: 03297 Init Hosp L2
--- NOTE | 2025-02-25 21:32 | CM.ED ---
Care Management Face to Face with patient for initial transition planning/care coordination assessment in the ED.? This feature writer introduced self and role at [facility]. Patient alert and oriented. Patient willing to participate in assessment and is able to answer all questions appropriately.? Care providers, pharmacy, and demographics verified. Admitting Diagnosis: ??Fall Other diagnosis history: ?hypertension, migraines, GERD, HLD, fibromyalgia, osteoporosis PCP: ?[facility] Specialists: ?None Preferred Pharmacy: [facility] Insurance: ?[employer] Prescription Benefit: ?Yes Living Will/HPOA: ?HPOA completed and on file, patient states she thinks she has a LW done LNOK: ? Living Arrangements: ?patient lives with in a one story? home.? Patient reports to being mostly independent with ADLs, states helps her out of the shower ?just in case?.? helps with IADLs Transportation: ? drives DME: ?cane, walker, wheelchair HHC: ?used in the past SNF/Rehab: ?[facility] Resources: ?none Behavioral Health History: depression and anxiety Patient goals: Patient wishes to discharge home, denies need for home health care at this time. Patient denies any further needs or concerns at this time. Disposition Plan: admission to acute; RN CM/SW to follow for discharge planning needs that may arise. Nyasia Orourke, SHAREPOINT DESIGNER DEVELOPER, RECRUITER SPECIALIST
--- OUTSIDE RECORDS SUMMARY | 2025-02-25 22:17 | XMS RPT_ITS | CCD ---
Author Organization [facility] Care Team Providers Care Squirt Machine Operator Name Role Phone Vera Pompa MD Primary Care Provider Dr. Vera Pompa Primary Care Provider Dr. Giancarlo Wooten Emergency Provider Dr. Yessenia Andres Attending Provider Dr. Yessenia Andres Admit Provider Dr. Yessenia Andres Other Provider Dr. Saúl Manriquez Other Provider Dr. Luis Ashley Attending Provider Dr. Luis Ashley Other Provider Vera Pompa MD Primary Care Provider Dr. Odilon Rodríguez Chi Admit Provider Dr. Odilon Rodríguez Chi Other Provider Dr. Celeste Lloyd Attending Provider Vera Pompa MD Primary Care Provider Tannhof DIRECTOR OF STUDENT AFFAIRS.TECHNICAL STENOGRAPHER, Apryl Unavailable Kalin DIRECTOR OF STUDENT AFFAIRS.TECHNICAL STENOGRAPHER, Luis Enrique Unavailable Dr. Vera Pompa MD Primary Care Provider Edmundo Judd MD Attending Provider Edmundo Judd MD Emergency Provider Dr. Odilon Rodríguez MD, Chi Admit Provider Dr. Odilon Rodríguez MD, Chi Attending Provider LATESSA, CYNTHIA Referring Unavailable ELDERBROCK, VERA D Primary Care Unavailable NUZHAT NAIK Attending Unavailable LATESSA, CYNTHIA Referring Unavailable ELDERBROCK, VERA D Primary Care Unavailable ELDERBROCK, VERA D Primary Care Unavailable MUAKKANATALYAA, FARID RHONDA Admitting Unavailabl BISI Hanley Unavailable SILVINO JONES Attending Unavailable Tannhof DIRECTOR OF STUDENT AFFAIRS.TECHNICAL STENOGRAPHER, Apryl Unavailable Unavail able Blake SCHMIDT, Dr. Stevenson Emergency Provider Aletha SCHMIDT, Dr. Branch Primary Care Provider [phone] Blake SCHMIDT, Dr. Stevenson Attending Provider Owen SCHMIDT, Dr. Hodges Emergency Provider Aletha SCHMIDT, Dr. Branch Primary Care Provider Owen SCHMIDT, Dr. Hodges Attending Provider Jp ALDRIDGE, Dr. Rg Emergency Provider Jp ALDRIDGE, Dr. Rg Attending Provider Petr SCHMIDT, Dr. Trivedi Attending Provider Petr SCHMIDT, Dr. Trivedi Referring Provider Johana ALDRIDGE, Dr. Ingram Emergency Provider ALETHA VERA D Primary Care Unavailable ELDERBROCK, VERA D Attending Unavailable ELDERBROCK, VERA D Referring Unavailable ELDERBROCK, VERA D Primary Care Unavailable ELDERBROCK, VERA D Attending Unavailable ELDERBROCK, VERA D Primary Care Unavailable ELDERBROCK, VERA D Referring Unavailable ELDERBROCK, VERA D Primary Care Unavailable ELDERBROCK, VERA D Primary Care Unavailable Tannhof, Apryl Primary Care Unavailable Wyneski, Monika Consulting Unavailable Monika Chaidez Attending Unavailable Wyneski, Monika Referring Unavailable Felicita Ambrosio Attending Unavailable Tannhof, Apryl Primary Care Unavailable Wyneski, Monika Attending Unavailable Wyneski, Monika Referring Unavailable Tannhof, Apryl Primary Care Unavailable Tannhof, Apryl Primary Care Unavailable Laquita Anaya Attending Unavailable Elderbrock, Vera Primary Care Unavailable Marcos, Odilon Chi Admitting Unavailable Marcos, Odilon Chi Attending Unavailable Maurybrock, Vera Primary Care Unavailable Edward Humphreys Attending Unavailable Edward Humphreys Referring Unavailable Apryl Gorman Attending Unavailable Aletha, Vera Primary Care Unavailable Apryl Gorman Referring Unavailable [facility] Primary Care Unavailable Edmundo Judd Attending Unavailable [facility], Vera Primary Care Unavailable Graham Lozano Attending Unavailable [facility], Vera Primary Care Unavailable Carroll Weaver Attending Unavailable [facility], Vera Primary Care Unavailable Arcenio Trammell Attending Unavailable Nataly Vaughn Attending Unavailable [facility], Vera Primary Care Unavailable Apryl Gorman Referring Unavailable Monika Chaidez Attending Unavailable Apryl Gorman Primary Care Unavailable Allergies Allergy Classification Reported Allergen(s) Allergy Type Date of Onset Reaction(s) Facility Acetaminophen / Codeine (3 sources) Acetaminophen / Codeine Drug Allergy 04-07-19 24 Unknown [facility] Work Phone: Macrolides (antibiotic) (3 sources) Clarithromycin Drug Allergy 03-16-19 06 Unknown [facility] NSAIDs (6 sources) Naproxen Drug Allergy 03-16-19 06 Rash, [facility] Work Phone: Opioid Agonists (3 sources) Codeine Drug Allergy 01-06-20 07 [facility] (20 sources) Clarithromycin; Translations: [CLARITHROMYCIN] Drug Allergy 03-16-19 06 Unknown [facility] (20 sources) Codeine; Translations: [CODEINE] Drug Allergy 01-06-20 07 [facility] (20 sources) nabumetone; Translations: [NABUMETONE] Drug Allergy 03-16-19 06 Unknown [facility] (20 sources) Naproxen; Translations: [NAPROXEN] Drug Allergy 11-23-19 08 Rash [facility] Work Phone: (20 sources) tylenol#3 [Other] Propensity to adverse reactions 03-16-19 06 Unknown [facility] (12 sources) Codeine; Translations: [codeine phosphate] Drug Allergy 09-08-19 23 Unknown [facility] (20 sources) Acetaminophen / Codeine; Translations: [ACETAMINOPHEN-COD EINE] Drug Allergy 04-07-19 24 Unknown [facility] Work Phone: (1 source) Codeine Drug Allergy 01-25-20 25 [facility] (1 source) nabumetone Drug Allergy 01-25-20 [facility] (1 source) Naproxen Drug Allergy 01-25-20 [facility] Medications Current Medications Medication [...] mg oral tablet (20 sources) Bisphosphonate Start: 11-01-2024 take 1 tablet by mouth every week alendronate (FOSAMAX) 70 mg tablet Indications: Osteoporosis, unspecified osteoporosis type, unspecified pathological fracture presence Take 1 tablet by mouth one time a week. 12 tablet 3 11/01/2024 Active Start: 03-20-2016 End: 10-31-2024 take 1 tablet by mouth every week alendronate (FOSAMAX) 70 mg tablet Indications: Osteoporosis, unspecified osteoporosis type, unspecified pathological fracture presence Take 1 tablet by mouth one time a week. 12 tablet 3 11/08/2023 10/31/2024 Discontinued Start: 03-17-2016 End: 03-20-2016 take 1 tablet [...] MG tablet Discontinued 600 mg PO DAILY 30 June 19, 2015 9:57pm September 07, 2022 7:21pm calcium carbonate 1500 mg / cholecalciferol 0.01 mg oral tablet (20 sources) Vitamin D Start: 09-01-2012 take 1 tablet by mouth once daily calcium carbonate 600 mg-cholecalciferol 400 units 600 mg-10 mcg (400 unit) tab Take 1 tablet by mouth once daily. 09/01/2012 Active Comment on above: Take 1 tablet by james once daily. carbamide peroxide 65 mg/ml otic [...] tablet Discontinued 2000 U PO DAILY 30 0 June 19, 2015 12:00am September 07, 2022 7:21pm Start: 01-14-2013 End: 06-19-2015 take 1 tablet by mouth once daily Cholecalciferol (Vitamin D3) (Vitamin D3) 2,000 UNIT tablet Discontinued 2000 U PO DAILY January 14, 2013 12:00am June 19, 2015 9:55pm Start: 06-22-2011 take 1 capsule by mo [facility] once daily Cholecalciferol, Vitamin D3, 2,000 unit ORAL Cap Take 1 capsule by mouth once daily. 0 06/22/2011 Active Comment on above: Take 1 capsule by mo [facility] once daily. cyclobenzaprine hydrochloride 5 mg oral [...] NEEDED as needed for Muscle Spasm 0 0 March 20, 2016 1:00am September [...] DAILY NEEDED Take 1 tablet by james three times a day as needed. FLUoxetine 40 mg oral capsule (20 sources) Serotonin Reuptake Inhibitor Start: 02-03-2022 End: 06-21-2024 take 1 capsule by mouth once daily FLUoxetine (PROZAC) 40 mg capsule Indications: Episode of recurrent major depressive disorder, unspecified depression episode severity Take 1 capsule by mouth once daily. 90 capsule 3 05/31/2024 Active Start: 03-30-2021 take 1 capsule by mo [facility] once daily FLUoxetine HCl (PROZAC) 40 mg [...] on above: Take 1 capsule by mo [facility] once daily. TAKE 1 CAPSULE EVERY DAY levothyroxine sodium 0.125 mg oral tablet (20 sources) l-Thyroxine Start: take 1 tablet by mouth once daily levothyroxine (SYNTHROID) 125 mcg tablet Indications: Hypothyroidism, unspecified type Take 1 tablet by mouth once daily. 30 tablet 3 10/12/2024 Active Start: 03-21-2023 End: 10-12-2024 take 1 tablet by mouth once daily levothyroxine (SYNTHROID) 100 mcg tablet Indications: Hypothyroidism, unspecified type Take 1 tablet by mouth once daily. 90 tablet 3 12/05/2023 10/12/2024 Discontinued Start: 01-06-2023 take 1 tablet by james th once daily levothyroxine (SYNTHROID) 88 mcg tablet [...] james th once daily. TAKE 1 TABLET ONCE D AILY TAKE 1 TABLET EVERY DAY Lvzjqejc-Flrp-Nn-Ca lcium-Mins (Therapeutic-M) 9 mg iron-400 mcg Tablet (6 sources) Start: 05-22-2024 take 9 tablets by mouth once daily at mealtime Rsrrolnk-Kdcj-Sa- Calcium-Mins (Therapeutic-M) 9 mg iron-400 mcg Tablet Active 1 {tbl} PO DAILY WITH MEALS 0 May 22, 2024 12:00am Start: 05-22-2024 take 9 tablets by mo [facility] once daily at mealtime Ovbqzpgz-Wrtr-Fw-Calcium-Mins (Therapeutic-M) 9 mg iron-400 mcg Tablet Active 1 {tbl} PO DAILY WITH MEALS 0 May 22, 2024 12:00am MULTIVITS W-FE,OTHER MIN/LUT [...] Take 1 tablet by james once daily. omeprazole 20 mg delayed release [...] on above: Take 1 capsule by mo [facility] daily before breakfast. 1/2 hr before meal. oxyCODONE hydrochloride 5 mg oral tablet (20 sources) Opioid Agonist Start: 3 take 1 tablet by mouth once daily oxyCODONE IR (ROXICODONE) 5 mg immediate release tablet Take 1 tablet by mouth as directed. D/C from [facility]; for HIP fracture 09/29/2022 Active Start: 09-10-2022 [...] on above: Take 1 tablet by james as directed. D/C from [facility]; for HIP fracture Completed/Discontinued Medications Medication Drug Class(es) Dates Sig (Normalized) Sig (Original) aluminum hydroxide 80 mg/ml / magnesium hydroxide 80 mg/ml / simethicone 8 mg/ml oral suspension (11 sources) Start: 03-20-2016 End: 09-07-2022 take 1 [...] 2022 7:21pm baclofen 10 mg oral tablet (20 sources) gamma-Aminobutyric Acid-ergic Agonist Start: 03-17-2016 End: [...] 2015 10:34am ciprofloxacin 500 mg oral tablet (6 sources) Quinolone Antimicrobial Start: 11-05-2023 End: 05-05-2024 take 1 tablet by mouth twice daily Ciprofloxacin Hcl (Cipro) 500 mg tablet Discontinued 500 mg PO TWICE A DAY 14 0 November 05, 2023 12:00am May 05, 2024 5:39pm docusate sodium 100 mg oral capsule (11 sources) Start: 03-20-2016 End: 09-07-2022 take 2 capsules by mouth twice daily as needed for constipation Docusate Sodium (Dok) 100 MG capsule Discontinued 200 mg PO TWICE DAILY NEEDED as needed for Constipation 0 0 March 20, 2016 1:00am September 07, 2022 7:21pm docusate sodium 50 mg / sennosides, fci 8.6 mg oral tablet (20 sources) Start: [...] ml enoxaparin sodium 100 mg/ml prefilled syringe (10 sources) Low Molecular Weight Heparin Start: 09-11-19 End: 09-29-19 Enoxaparin 40 mg/0.4 mL Syringe Discontinued 40 mg SC 0600 4 0 September 10, 2022 12:00am September 28, 2022 9:24pm blood thinner start 09/12/22 ferrous sulfate 325 mg oral tablet (11 sources) Start: 06-10-19 End: 06-19-19 take 1 tablet by mouth twice daily at mealtime Ferrous Sulfate 325 MG tablet Discontinued 325 mg PO TWICE DAILY WITH MEALS 0 June 10, 2015 12:00am June 19, 2015 9:56pm gabapentin 100 mg oral capsule (17 sources) Anti-epileptic Agent Start: 05-09-19 End: 09-04-19 take 1 capsule by mouth every eight hours Gabapentin 100 mg Capsule Discontinued 100 mg PO EVERY 8 HOURS 90 30 0 May 22, 2024 12:00am August 21, 2024 4:55pm 1 ml heparin sodium, porcine 5000 unt/ml cartridge (11 sources) Unfractionated Heparin, Anti-coagulant Start: 06-10-19 End: [...] FOR DIZZINESS melatonin 3 mg oral tablet (10 sources) Start: 09-10-2022 End: 09-28-2022 take 1 tablet by mouth at bedtime as needed Melatonin 3 mg Tablet Discontinued 3 mg PO AT BEDTIME NEEDED as needed for Insomnia 0 0 September 10, 2022 12:00am September 28, 2022 9:24pm methocarbamol 500 mg oral tablet (18 sources) Muscle Relaxant Start: 05-22-2024 End: 10-12-2024 take 1 tablet by mouth three times daily as needed for muscle spasms Methocarbamol 500 mg Tablet Discontinued 500 mg PO 3 TIMES DAILY NEEDED as needed for muscle spasm 90 30 0 May 22, 2024 12:00am August 21, 2024 4:55pm Yfxxbjfu-Fgv-Cz-Ly copen-Lutein (Centrum Silver) 1 EACH tablet (20 sources) Start: 06-19-2015 End: 09-07-2022 take 1 tablet by mouth once daily Dpxrwzjl-Jnf-Uy-L ycopen-Lutein (Centrum Silver) 1 EACH tablet Discontinued 1 NMA PO DAILY 30 0 June 19, 2015 9:57pm September 07, 2022 7:21pm Start: 06-19-2015 End: 09-07-2022 take 1 tablet by mouth once daily Mugnrxoz-Kom-Uk-Lycopen-Lutein (Centrum Silver) 1 EACH tablet Discontinued 1 NMA PO DAILY June 19, 2015 9:57pm September 07, 2022 7:21pm Start: 06-19-2015 End: 09-07-2022 take 1 tablet by mouth once daily Hohqtosq-Pty-Lc-Lycopen-Lutein (Centrum Silver) 1 EACH tablet Discontinued 1 EACH PO DAILY June 19, 2015 9:57pm September 07, 2022 7:21pm Start: 06-05-2015 End: 06-19-2015 take 1 tablet by mouth once daily Wwtcccxa-Weu-Sg-Lycopen-Lutein (Centrum Silver) 1 EACH tablet Discontinued 1 NMA PO DAILY June 05, 2015 12:00am June 19, 2015 9:57pm Start: 06-05-2015 End: 06-19-2015 take 1 tablet by mouth once daily Wxnpzddv-Sti-Hp-Lycopen-Lutein (Centrum Silver) 1 EACH tablet Discontinued 1 EACH PO DAILY June 05, 2015 12:00am June 19, 2015 9:57pm nystatin 100 unt/mg topical powder (10 sources) Polyene Antifungal Start: 09-10-2022 End: 09-28-2022 Nystatin (Nyamyc) 100,000 unit/gram Powder Discontinued 1 NMA TOPICAL TWICE A DAY 0 September 10, 2022 12:00am September 28, 2022 9:24pm redness/yeast Please contact the information source for Protocol details. Start: 09-10-2022 End: 09-28-2022 Nystatin (Nyamyc) 100,000 un it/gram Powder Discontinued 1 APPLIC TOPICAL TWICE A DAY 0 September 10, 2022 12:00am September 28, 2022 9:24pm ondansetron 4 mg disintegrating oral tablet (3 sources) Serotonin-3 Receptor Antagonist Start: 09-23-2024 End: 10-09-2024 take 1 tablet by mouth every eight hours as needed for nausea Ondansetron 4 mg tablet,disintegrating Discontinued 4 mg PO EVERY 8 HOURS NEEDED as needed for Nausea 10 0 September 23, 2024 12:00am October 09, 2024 2:46pm polyethylene glycol 3350 44238 mg powder for oral solution (5 sources) Osmotic Laxative Start: 05-09-2024 End: 06-21-2024 polyethylene glycol 3350 17 gram packet Take 1 Packet by mouth once daily. Dissolve dose in 4 - 8 ounces of liquid and take as directed. 05/09/2024 06/21/2024 Discontinued propranolol hydrochloride 20 mg oral tablet (20 sources) beta-Adrenergic Azra Start: 01-14-2013 End: 03-20-2016 take 20 mg by mouth twice daily Propranolol HCl Discontinued 20 mg PO TWICE A DAY 60 0 June 19, 2015 9:57pm March 20, 2016 11:11am triamcinolone acetonide 0.43188 mg/mg topical ointment (20 sources) Corticosteroid Start: 11-24-2017 End: 10-12-2024 triamcinolone (KENALOG) 0.025 % ointment Indications: Rash Apply 1 application to affected area twice daily. 15 g 1 11/24/2017 10/12/2024 Discontinued Comment on above: Apply 1 application to affected area twice daily. Problems Active Problems Problem Classification Problem Date Documented Da te Episodic/Chronic Abdominal pain (1 source) Unspecified abdominal pain; Translations: [Unspecified abdominal pain] Onset: 5 Episodic Acute posthemorrhagic anemia (16 sources) Acute posthemorrhagic anemia; Translations: [Acute posthemorrhagic anemia] 09-09-2022 Episodic Anxiety disorders (1 source) Mixed anxiety and depressive disorder; Translations: [Other specified anxiety disorders] 09-01-2023 Chronic Calculus of urinary tract (1 source) Calculus of ureter; Translations: [Calculus of ureter] Onset: 5 Episodic Cardiac dysrhythmias (11 sources) Paroxysmal atrial fibrillation; Translations: [Paroxysmal atrial fibrillation] 03-20-2016 Chronic Comment on above: not a candidate for anticoagulation due to falls Conditions associated with dizziness or vertigo (20 sources) Dizziness; Translations: [Dizziness and giddiness] 05-25-2023 Episodic Deficiency and other anemia (2 sources) Anemia due to blood loss; Translations: [Iron deficiency anemia secondary to blood loss (chronic)] 06-10-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 Disorders of lipid metabolism (20 sources) Mixed hyperlipidemia; Translations: [Mixed hyperlipidemia] Onset: 0 Chronic Esophageal disorders (9 sources) Gastroesophageal reflux disease; Translations: [Gastro-esophageal reflux disease without esophagitis] 05-10-2024 Chronic Fluid and electrolyte disorders (4 sources) Dehydration; Translations: [Dehydration] Onset: 5 09-23-2024 Episodic Fracture of neck of femur (hip) (20 sources) Fracture of bone of hip region; Translations: [Fracture of unspecified part of neck of unspecified femur, initial encounter for closed fracture] 06-05-2015 Episodic Fracture of upper limb (11 sources) Fracture of clavicle; Translations: [Fracture of unspecified part of right clavicle, initial encounter for closed fracture] 04-30-2018 Episodic Genitourinary symptoms and ill-defined conditions (12 sources) Urge incontinence of urine; Translations: [Urge incontinence] Chronic Comment on above: intermittent Headache; including migraine (9 sources) Migraine; Translations: [Migraine, unspecified, not intractable, without status migrainosus] 05-10-2024 Chronic Malaise and fatigue (20 sources) Asthenia; Translations: [Other malaise] 10-09-2022 Episodic Mood disorders (20 sources) Recurrent major depressive episodes; Translations: [Major depressive disorder, recurrent, unspecified] Onset: 6 Chronic Nutritional deficiencies (20 sources) Vitamin D deficiency; Translations: [Vitamin D deficiency, unspecified] Onset: 0 Chronic Open wounds of extremities (12 sources) Tear of skin; Translations: [Laceration without foreign body of right forearm, initial encounter] Onset: 5 04-30-2018 Episodic Osteoporosis (20 sources) Osteoporosis; Translations: [Other osteoporosis without current pathological fracture] Onset: 6 Chronic Other aftercare (1 source) Post-discharge follow-up; Translations: [Encounter for follow-up examination after completed treatment for conditions other than malignant neoplasm] 05-27-2023 Episodic Other aftercare (1 source) Long-term current use of bisphosphonates; Translations: [longterm (current) use of bisphosphonates] 09-03-2024 Episodic Other aftercare (1 source) Other skilled nursing (current) drug therapy; Translations: [Long-term (current) use of other medications] 09-03-2024 Episodic Other circulatory disease (6 sources) H/O: atrial fibrillation; Translations: [Personal history of other diseases of the circulatory system] 11-03-2023 Episodic Other circulatory disease (5 sources) Elevated blood-pressure reading without diagnosis of hypertension; Translations: [Elevated blood-pressure reading, without diagnosis of hypertension] 08-21-2024 Episodic Other ear and sense organ disorders (7 sources) Impacted cerumen; Translations: [Impacted cerumen, unspecified ear] 05-25-2023 Episodic Other ear and sense organ disorders (1 source) Impacted cerumen of bilateral ears; Translations: [Impacted cerumen, bilateral] 05-30-2023 Episodic Other eye disorders (1 source) Mechanical ptosis of bilateral eyelids; Translations: [Ptosis, mechanical, bilateral] Onset: 5 Episodic Other fractures (9 sources) Compression fracture of thoracic spine; Translations: [Wedge compression fracture of T11-T12 vertebra, initial encounter for closed fracture] 05-13-2024 Episodic Other fractures (1 source) Wedge compression fracture of T11-T12 vertebra, sequela; Translations: [Closed wedge compression fracture of T12 vertebra, sequela] Onset: 5 Episodic Other fractures (1 source) Wedge compression fracture of T11-T12 vertebra, initial encounter for closed fracture; Translations: [Closed wedge compression fracture of T11 vertebra, initial encounter (HCC)] Onset: 5 Episodic Other fractures (2 sources) Multiple fractures of ribs, bilateral, initial encounter for closed fracture; Translations: [Closed fracture of multiple ribs of both sides, initial encounter] Onset: 5 Episodic Other gastrointestinal disorders (8 sources) Heartburn; Translations: [Heartburn] Episodic Other gastrointestinal disorders (9 sources) Incontinence of feces; Translations: [Full incontinence [...] Translations: [History of falling] 09-03-2024 Episodic Other injuries and conditions due to external causes (1 source) Encounter for examination and observation following other accident; Translations: [Encounter for examination and observation following other accident] Onset: 5 Episodic Other liver diseases (2 sources) Alkaline phosphatase raised; Translations: [Abnormal levels of other serum enzymes] 10-12-2024 Episodic Other liver diseases (1 source) Abnormal levels of other serum enzymes; Translations: [Elevated alkaline phosphatase level] Onset: 5 Episodic Other nervous system disorders (6 sources) Unable to walk; Translations: [Difficulty in walking, not elsewhere classified] 11-13-2023 Chronic Other nervous system disorders (1 source) Unsteadiness on feet; Translations: [Gait instability] Onset: 5 Episodic Other non-traumatic joint disorders (1 source) Ankle edema; Translations: [Effusion, right ankle] 08-31-2023 Episodic Other non-traumatic joint disorders (4 sources) Effusion of right knee joint; Translations: [Effusion, right knee] 09-13-2024 Episodic Other nutritional; endocrine; and metabolic disorders (5 sources) H/O: hypothyroidism; Translations: [Personal history of other endocrine, nutritional and metabolic disease] 08-21-2024 Episodic Other screening for suspected conditions (not mental disorders or infectious disease) (11 sources) Patient encounter status; Translations: [Encounter for screening mammogram for malignant neoplasm of breast] Onset: 5 Episodic Other upper respiratory disease (5 sources) Anterior epistaxis; Translations: [Epistaxis] 08-21-2024 Episodic Other upper respiratory disease (1 source) Epistaxis; Translations: [Epistaxis] Onset: 5 Episodic Residual codes; unclassified (9 sources) Sleep apnea; Translations: [Sleep apnea, unspecified] 10-09-2022 Chronic Residual codes; unclassified (2 sources) Sleep apnea, unspecified; Translations: [Unspecified sleep apnea] 10-01-2022 Chronic Residual codes; unclassified (20 sources) History of operation on musculoskeletal system; Translations: [Other specified postprocedural states] 09-07-2022 Episodic Residual codes; unclassified (11 sources) H/O Spinal surgery; Translations: [Other specified postprocedural states] 09-07-2022 Episodic Comment on above: T12 - 03/18/16 Residual codes; unclassified (2 sources) Other specified postprocedural states; Translations: [Other postprocedural status] 10-01-2022 Episodic Residual codes; unclassified (1 source) Bilateral lower limb edema; Translations: [Localized edema] 08-29-2023 Episodic Residual codes; unclassified (1 source) Disorientation, unspecified; Translations: [Disorientation, unspecified] Onset: 5 Episodic Screening and history of mental health and substance abuse codes (1 source) Encounter for screening examination for other mental health and behavioral disorders; Translations: [Encounter for screening examination for other mental health and behavioral disorders] Onset: 5 Episodic Spondylosis; intervertebral disc disorders; other back problems (14 sources) Lumbar spondylosis; Translations: [Spondylosis without myelopathy or radiculopathy, lumbar region] Onset: 5 06-21-2024 Chronic Superficial injury; contusion (14 sources) Right wrist contusion; Translations: [Contusion of right wrist, initial encounter] 05-13-2024 Episodic Thyroid disorders (20 sources) Hypothyroidism; Translations: [Other specified hypothyroidism] Onset: 6 Chronic Unclassified (3 sources) Xrays at 0945 Unclassified (3 sources) pt will make appt Unclassified (1 source) Elevated LFTs 10-12-2024 Unclassified (1 source) Age-related osteoporosis with current pathological fracture, other site, subsequent encounter for fracture with routine healing; Translations: [Age-related osteoporosis with current pathological fracture, other site, subsequent encounter for fracture with routine healing] Onset: 5 Urinary tract infections (18 sources) Urinary tract infectious disease; Translations: [Urinary tract infection, site not specified] 09-08-2022 Episodic Past or Other Problems Problem Classification Problem Date Documented Date Episodic/Chronic Blindness and vision defects (4 sources) Diplopia; Translations: [Diplopia] Onset: 10-02-2024 10-09-2024 Episodic Deficiency and other anemia (20 sources) Anemia; [...] fracture] Onset: 05-06-2024 03-17-2016 Episodic Other fractures (20 sources) Fracture of multiple ribs ; Translations: [Multiple fractures of ribs, unspecified side, initial encounter for closed fracture] Onset: 05-06-2024 05-08-2024 Episodic Other fractures (17 sources) Closed fracture of multiple left and right ribs; Translations: [Multiple fractures of ribs, bilateral, initial encounter for closed fracture] Onset: 05-06-2024 05-09-2024 Episodic Other fractures (18 sources) Closed fracture thoracic vertebra, wedge; Translations: [Wedge compression fracture of T11-T12 vertebra, subsequent encounter for fracture with routine healing] Onset: 05-08-2024 05-08-2024 Episodic Other injuries and conditions due to external causes (17 sources) Traumatic injury; Translations: [Injury, unspecified, initial encounter] Onset: 05-08-2024 05-08-2024 Episodic Other lower respiratory disease (17 sources) Respiratory insufficiency; Translations: [Other abnormalities of breathing] Onset: 05-07-2024 05-07-2024 Episodic Other nervous system disorders (17 sources) Acute pain due to injury; Translations: [Acute pain due to trauma] Onset: 05-07-2024 05-07-2024 Episodic Other nervous system disorders (15 sources) Abnormal gait; Translations: [Unsteadiness on feet] Onset: 06-21-2024 06-21-2024 Episodic Paralysis (20 sources) Paralysis; 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, unspecified] Onset: 11-23-2007 Resolved: 09-03-2024 04-10-2009 Chronic Spondylosis; intervertebral disc disorders; other back problems (20 sources) Backache; Translations: [Dorsalgia, unspecified] Onset: 01-24-2013 01-24-2013 Episodic Syncope (20 sources) Syncope; Translations: [Syncope and collapse] Onset: 05-08-2024 03-17-2016 Episodic Results Test Name Value Interpretation Reference Range Facility Discharge Instructionon 01-12 Discharge Instruction [facility] Medical Records Department [address] [place] [address] Instructions for Home/Discharge Instructions 01/24/25 1131 MR#: [id number] Acct: [id number] Name: MICAELA COCHRAN Rep #: [id number] : 1945 79 From: Monika Chaidez MD PCP: ADALBERTO Guy Status:REG [facility] Discharge Instructions Diet Discharge Diet: No restrictions Activity Discharge Activity: Return to Normal Activity Dressing / Incision Call your doctor if you observe: Fever of 101 or Higher, Inability to urinate and Inability to have a bowel movement Follow Up Care Please Follow Up With: Monika Chaidez MD Test Results: Test results from this visit will be discussed in further detail at your follow-up appointment, if applicable. Discharge Plan Admission Attending Provider: Monika Chaidez Primary Care Provider: Apryl Gorman Instructions Print Language: [place] Islander Discharge Orders/Prescriptions Prescriptions: New oxycodone-acetaminoph en 5-325 mg tablet 1 tab PO Q8H PRN (Reason: pain) 3 Days Qty: 10 0RF cephalexin 500 mg capsule 500 mg PO Q12 3 Days Qty: 6 0RF ondansetron 4 mg tablet,disintegrating 4 mg PO Q8H PRN (Reason: nausea and vomiting) Qty: 10 0RF phenazopyridine 100 mg tablet 100 mg PO TID PRN (Reason: pain) 30 Days Qty: 30 3RF Continued fluoxetine 40 mg capsule 40 mg PO DAILY atorvastatin 20 mg tablet 20 mg PO QHS Patient Comments: PT THINKS SHE IS TAKING SOMETHING FOR CHOLESTEROL AND THAT IT MAY BE ATORVASTATIN alendronate 70 mg tablet 70 mg PO QWEEK Rx Instructions: weekly. omeprazole 20 mg capsule,delayed release(DR/EC) 20 mg PO DAILY calcium carbonate 200 mg calcium (500 mg) Tablet,Chewable 500 mg PO TIDCM Qty: 30 0RF cholecalciferol (vitamin D3) 25 mcg (1,000 unit) Tablet 50 mcg PO DAILY Qty: 0 0RF Therapeutic-M 9 mg iron-400 mcg Tablet 1 tab PO DAILYCM Qty: 0 0RF cyclobenzaprine 5 mg tablet 5 mg PO TID PRN (Reason: pain) levothyroxine 125 mcg tablet 125 mcg PO DAILY acetaminophen 500 mg Tablet 1,000 mg PO Q8 PRN (Reason: pain) Referrals / Follow Up: Apryl Gorman NP-C [Primary Care Provider, Family Practice] Disposition Disposition (needs filled in before D/C Order can be placed): Home, Self Care 01/24/25 1135 Monika Chaidez MD CC: ADALBERTO Gorman Signed [facility] MR/POSTOP.[facility] 01-24-2025 MR/POSTOP.[facility] Medical Records Department [address] [place] [address] Anesthesia Postop Eval I 01/24/25 1224 MR#: [id number] Acct: [id number] Name: MICEALA COCHRAN Rep #: [id number] : 1945 79 From: Bri Odonnell CRNA PCP: ADALBERTO Guy Status:REG [facility] Y Race: C Location: [facility] Anesthesia: Postop Eval I Current Vital Signs Temperature: 97.6 F Pulse Rate: 106 Blood Pressure: 145/89 Respiratory Rate: 16 Pulse Ox: 93 Oxygen Delivery Method: Nasal Cannula Oxygen Flow Rate (L/min): 3 Assessment Airway patent: Yes Spontaneous unlabored respirations: Yes Mental status: Awake and Calm nausea: No Vomiting: No Anesthesia Complication: No Fluid Hydration Crystalloid volume administer (ml): 300 Total IV fluid infused: 300 Progress Note Anesthesia document: Postop Eval 1 completed: Yes 01/24/25 1225 Date Bri Odonnell CRNA Cosigner Signature: Date CC: Signed Normal [facility] MR/OUMNAQAV7oa 01-24-2025 MR/POSTOPAN2 [facility] Medical Records Department [address] [place] [address] Anesthesia Postop Eval II 01/24/25 1431 MR#: [id number] Acct: [id number] Name: MICAELA COCHRAN Rep #: [id number] : 1945 79 From: Bri Odonnell CRNA PCP: ADALBERTO Guy Status:DEP [facility] Y Race: C Location: [facility] Anesthesia Postop Eval I Sum Postop Eval Completion status Anesthesia document: Postop Eval 1 completed: Yes Anesthesia Postop Eval I Summary Anesthesia Postop Eval I Summary: Anesthesia Postop Eval I: Assessment Summary Airway patent Yes 01/24/25 12:25 POSTPARTUM RN.GDOTT Spontaneous unlabored Yes 01/24/25 12:25 POSTPARTUM RN.GDOTT respirations Mental status Awake,Calm 01/24/25 12:25 POSTPARTUM RN.GDOTT nausea No 01/24/25 12:25 POSTPARTUM RN.GDOTT Vomiting No 01/24/25 12:25 POSTPARTUM RN.GDOTT Anesthesia Postop Eval I: Fluid Summary Crystalloid volume administer 300 01/24/25 12:25 POSTPARTUM RN.GDOTT (ml) Colloids volume administered ( ml) Blood Product volume administered (ml) Total IV fluid infused 300 01/24/25 12:25 POSTPARTUM RN.GDOTT Anesthesia Postop Eval I: Summary Notes Anesthesia Complication No 01/24/25 12:25 POSTPARTUM RN.GDOTT Anesthesia Complication Comment: Post-operative progress note Anesthesia: Postop Eval II Evaluation Mental status: Awake and Calm Pain Level: 0 nausea: No Vomiting: No Complications Anesthesia Complication: No 01/24/25 1431 Date Bri Odonnell POSTPARTUM RN Cosigner Signature: Date CC: Signed Normal [facility] Operative Reporton 5 Operative Report [facility] Medical Records Department [address] [place] [address] Operative Report 01/24/25 1135 MR#: [id number] Acct: [id number] Name: MICAELA COCHRAN Rep #: [id number] : 1945 79 From: Monika Chaidez MD PCP: ADALBERTO Guy Status:REG [facility] Location: [facility] Multi Select Codes Urology Urology Charge Forwarding-multi code: 10747 Cysto w/ insert Ureteral Stent and Attention Flor Operative Report (Standard) Operative Information Date of Procedure: 01/24/25 Pre-Operative Diagnosis: Right ureteral calculus Post-Operative Diagnosis: Same Surgery/Procedure Performed: Cystoscopy, right ureteroscopy, thulium laser lithotripsy, stone basket extraction, right ureteral stent insertion fixed income manager: No Type of Anesthesia: General RN Documented Start/Stop Times: Operation Date: 01/24/25 11:20 Case Time Into Pre-Op 01/24/25 09:57 Out of Pre-Op 01/24/25 11:15 Anesthesia Start 01/24/25 11:27 Into Room 01/24/25 11:27 Procedure Start 01/24/25 11:46 Procedure End 01/24/25 12:01 Anesthesia End 01/24/25 12:13 Out of Room 01/24/25 12:13 Into Recovery 01/24/25 12:15 Procedure Start Time: 11:46 Procedure Stop Time: 12:01 Select all DRAINS/GRAFTS/IMPLANT S that apply: Drains Drain details: 6 Malay x 20 cm JJ stent Estimated Blood Loss: <5cc Specimen collected: Yes Description of specimen(s) removed: Right ureteral stone fragments Description of surgery: The patient was taken to the operating room and placed on the operating room table. Anesthesia monitored the head, neck, airway, IV access and vital signs throughout the case. Once anesthesia was appropriate ministered, she was placed into dorsolithotomy position was prepped and draped in usual sterile fashion. The cystoscope was inserted through the urethra under direct visualization into the urinary bladder. Bladder mucosa revealed no evidence of mass, erythema, ulceration or foreign body. The right ureteral orifice was intubated with a 0.035 Glidewire that advanced into the renal pelvis is seen on fluoroscopy. Alongside of this safety wire, the semirigid ureteroscope was advanced into the distal ureter and the stone was identified. Using a 200 ???m laser fiber, the stone was broken into small pieces that were removed with a stone basket. When the fragments were removed, the entire length of the ureter from the UPJ down to the ureteral orifice, the ureter was directly visualized revealing no evidence of laceration, injury or other abnormality. At this time the cystoscope was used with the pusher to backloaded the safety wire and a 6 Malay 20 cm JJ stent was placed over the wire into the renal pelvis with good positioning there and in the urinary bladder. The patient's bladder was then emptied and the cystoscope was removed. She was awakened and taken to the recovery room in good condition. There were no complications during the procedure. Surgical Findings: Distal right ureteral calculus, laser lithotripsy stone removal and stent. Complications Complications: No Admit VTE Documentation VTE Present on Admission: Yes VTE Mechan Device Prophylaxis: SCD's VTE Pharm Prophylaxis ordered?: No Reason prophylaxis not ordered: Treatment Not Indicated 01/24/25 1232 Cosigner Signature (if applicable): CC: ADALBERTO Gorman; Dr. Monika Chaidez MD Signed ADDENDUM by Dr. Monika Chaidez MD on 01/24/25 at 1243 Multi Select Codes Urology Urology Charge Forwarding-multi code: 86585 Cysto w/ Ureteroscopy w/RMVL/Manj Stones and 11317 Cysto/Uretero w/Lithotripsy 01/24/25 1243 Cosigner Signature (if applicable): cc: ADALBERTO Gorman; Dr. Monika Chaidez MD * Signed Normal [facility] Urine Cultureon 01-16-2025 URC Escherichia coli [place] Count >100,000 Escherichia coli: REACTION Ampicillin Islt YARITZA <=2 Ampicillin+Sulbac Islt YARITZA <=2 S Cefepime Islt YARITZA <=0.12 S cefTRIAXone Islt YARITZA <=0.25 S Ciprofloxacin Islt YARITZA <=0.06 S B-Lactamase Extended Susc Islt NEG Gentamicin Islt YARITZA <=1 S levoFLOXacin Islt YARITZA <=0.12 S Meropenem Islt YARITZA <=0.25 S Nitrofurantoin Islt YARITZA <=16 S Pip+Tazo Islt YARITZA <=4 S TMP SMX Islt YARITZA <=20 S Normal [facility] Comment on above: Performed By: #### M 100.1832 ####[facility] [address] [place], [place], [id number] MR/NEELMIAGermanBonita 01-15-2025 MR/WINIFRED [facility] [address], [address] [place], [place] [address] OFFICE VISIT Date of Service: 01/15/25 MR#: [id number] Acct: [id number] Name: MICAELA COCHRAN Rep #: [id number] : 1945 Provider: Dr. 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 Accompanied by: Is patient in pain?: No Allergies codeine Allergy (Verified 01/24/25 10:06) Unknown codeine phosphate (From Tylenol-Codeine #3) Adverse Reaction (Verified 01/24/25 10:06) Unknown nabumetone (From Relafen) Adverse Reaction (Verified 01/24/25 10:06) Unknown naproxen Adverse Reaction (Verified 01/24/25 10:06) Unknown Medications ???Medication ???Instructions ???Recorded ???Confirmed ???Type alendronate 70 mg tablet 70 mg PO QWEEK osteoporosis 01/24/25 History atorvastatin 20 mg tablet 20 mg PO QHS HLD 09/07/22 01/24/25 History fluoxetine 40 mg capsule 40 mg PO DAILY depression 09/07/22 01/24/25 History omeprazole 20 mg capsule,delayed 20 mg PO DAILY GERD 09/07/2201/24 History release calcium carbonate 500 mg (2.5 x 200 mg calcium (500 09/10/22 01/24/25 Rx mg)) PO TIDCM supplement #30 tabs cholecalciferol (vitamin D3) 25 50 mcg (2 x 25 mcg (1,000 unit)) 0 05/22/24 01/24/25 Rx mcg (1,000 unit) tablet PO DAILY #0 tabs multivitamin-iron 9 mg-folic acid 1 tab PO DAILYCM #0 tabs 05/22/24 01/24/25 Rx 400 mcg-calcium and minerals tablet (Therapeutic-M) acetaminophen 500 mg tablet 1,000 mg PO Q8 PRN pain 08/21/24 1 03/26/24 History cyclobenzaprine 5 mg tablet 5 mg PO TID PRN pain 10/09/2401/12 History levothyroxine 125 mcg tablet 125 mcg PO DAILY 01/17/25 01/24/25 History Have you fallen in the past year?: No Nurse's Note: bladder scan PVR 14cc PFSH Medical History Wears dentures Wears glasses Post-menopausal Anxiety Thyroid disease Risk for falls Difficulty swallowing History of echocardiogram Poor historian Non-smoker Sleep apnea Hypertension Migraines Chronic anemia Obesity Anxiety and depression GERD (gastroesophageal reflux disease) HLD (hyperlipidemia) PAF (paroxysmal atrial fibrillation) Fibromyalgia Osteoporosis Paroxysmal atrial fibrillation T12 compression fracture Closed right hip fracture Syncope Hypothyroid Surgical History S/P ORIF (open reduction internal fixation) fracture History of section H/O ovarian cystectomy History of total right hip replacement S/P kyphoplasty S/P ORIF (open reduction internal fixation) fracture Family History Mother Cancer Father Cancer Social History household members: spouse Smoking Status: Never smoker alcohol intake: never substance use type: does not use HPI HPI Urology Chief Complaint: new patient stones Details: MICAELA COCHRAN, is a 79 F. Micaela is a new patient here after being diagnosed with a right ureteral stone with urinary tract infection. This is the first stone she has struggled with. She started having pain about 2 weeks ago with right sided back pain. No nauesa, vomiting, fever, chills, dysuria. There is no gross hematuria. The pain is the issue. She has chronic pain, and this is worse than her usual pain. She is still having intermittent significant pain. She was given cipro and flomax in the ER. ROS Const Constitutional: No chills, fatigue, fever(s), headache(s), night sweats, weakness, weight change, abnormal sleep pattern or change in appetite Eyes Eyes: No change in vision ENT ENT: No headache(s) or dry mouth Resp Respiratory: No cough, chest congestion, shortness of breath or wheezing Cardio Cardiology: Positive for other (No chest pain.); No shortness of breath, irregular heart rhythm or lightheadedness Gastro GI: Positive for other (No nausea.); No abdominal pain, change in bowel habits, constipation, diarrhea or vomiting Musc Musculoskeletal: Positive for back pain; No abnormal gait Skin Skin: No yellowing of the eye, lesions, itchy eyes, rash or skin ulcer Neuro Neurology: No abnormal gait, confusion, dizziness, weakness, headache(s) or memory loss Psych Psychiatric: No abnormal sleep pattern, No change in appetite, No confusion and No memory loss Endo Endocrine: No fatigue, increased thirst/drinking or weight change Aller/Imm Allergy/Immunologic: No itchy eyes or wheezing Riky (more content not included)... Normal [facility] Abdomen/Pelvis without Conto n 01-14-2025 Abdomen/Pelvis without Cont [facility] Imaging Services [address], [place] [address] Abdomen/Pelvis without Cont MR#: [id number] Acct: [id number] Name: MICAELA COCHRAN Rep #: [id number] : 1945 F 79 From: Ha merchant MD PCP: ADALBERTO Guy Status: DEP ER Study: Abdomen/Pelvis without Cont Date of Exam: 06/05 Exam# [id number] Ordering Dr: Felicita Ambrosio MD PROCEDURE: ABDOMEN/PELVIS WITHOUT CONT 01/14/2025 REASON FOR EXAM: RIGHT FLANK PAIN, HX UTI-FINISHED ATB, FEELS WORSE TECHNIQUE: Procedure Code: CTABDPEL Modality: CT Procedure: ABDOMEN/PELVIS WITHOUT CONT Noncontrast technique limits evaluation of the abdominal and pelvic viscera. Coronal and Sagittal reconstruction series were provided. One or more dose reduction techniques were used (e.g., Automated exposure control, adjustment of the mA and/or kV according to patient size, use of iterative reconstruction technique). RADIATION DOSE SUMMARY: CTDlvol: 8.48 mGy DLP: 351.52 mGycm COMPARISON: None FINDINGS: Lung bases: Mild degree of increased linear markings at the lung bases suggestive of linear atelectasis and/or scarring. Coronary artery calcification. Moderate-sized hiatal hernia. Liver: Normal size. No obvious mass. Gallbladder: Small gallstones are seen along the dependent portion of the gallbladder lumen. Minimally distended gallbladder. Spleen: Scattered calcified splenic granulomas. Pancreas: Normal size. No surrounding inflammation. Adrenals: Unremarkable Kidneys: 4 mm nonobstructive calculus in the upper pole calyx of the left kidney. Mild right hydronephrosis. Mild degree of right hydroureter. There is evidence of a 5.2 mm calculus in the distal portion of the right ureter just proximal to the left ureterovesical junction. Bladder: Fullness of the bladder. Reproductive Organs: Prior hysterectomy. Adnexal regions are unremarkable. Bowel: Colonic diverticulosis without diverticulitis. Appendix: The appendix is not identified. There is no inflammatory process identified in the right lower quadrant to suggest appendicitis. Lymph nodes: Unremarkable. Vasculature: The abdominal aorta and IVC contours are normal. Noncontrast technique limits evaluation. Peritoneum / Retroperitoneum: Unremarkable Bones: Degenerative changes of the spine. CT/Abdomen/Pelvis without Cont IMPRESSION: Right hydronephrosis and right hydroureter due to a 5.2 mm calculus in the distal portion of the right ureter just proximal to the right ureterovesical junction. Multiple small gallstones along the dependent portion the gallbladder lumen. The gallbladder slightly distended. Hiatal hernia. Reading Location: [id number] CC: ADALBERTO Gorman; Dr. Felicita Ambrosio MD Inspector Cold Working: Signed Normal [facility] Basic Metabolic Profile (BMP )on 01-14-2025 BUN/CRE 32.7 RATIO High 10-20 [facility] Comment on above: Performed By: #### L 500.2500, L100.0100 ####[facility] [address] [place], [address] Calcium [Mass/Vol] 9.9 mg/dL Normal 7.6-11.0 [facility] Comment on above: Performed By: #### L 500.2500, L100.0100 ####[facility] [address] [place], [address] Chloride [Moles/Vol] 109 mmol/L High 98-108 [facility] Comment on above: Performed By: #### L 500.2500, L100.0100 ####[facility] [address] [place], [address] CO2 [Moles/Vol] 21.5 mmol/L Normal 21.0-32.0 [facility] Comment on above: Performed By: #### L 500.2500, L100.0100 ####[facility] [address] [place], [address] Creatinine [Mass/Vol] 0.66 mg/dL Low 0.70-1.20 [facility] Comment on above: Performed By: #### L 500.2500, L100.0100 ####[facility] [address] [place], [address] ECRCL 46.95 ml/min Low 50-250 [facility] Comment on above: Performed By: #### L 500.2500, L100.0100 ####[facility] [address] [place], [address] GAP 13 Normal 5-15 [facility] Comment on above: Performed By: #### L 500.2500, L100.0100 ####[facility] [address] [place], [address] GFR/1.73 sq M.predicted among non-blacks MDRD (S/P/Bld) [Vol rate/Area] 90 mL/min/{1.73_m2} Normal >60 [facility] Comment on above: Result Comment: mL/m in/1.73m2 CKD-EPI Creatinine Equation (2020) Performed By: #### L 500.2500, L100.0100 ####[facility] [address] [place], [address] Glucose [Mass/Vol] 96 mg/dL Normal 70-99 [facility] Comment on above: Performed By: #### L 500.2500, L100.0100 ####[facility] [address] [place], [address] Potassium [Moles/Vol] 3.9 mmol/L Normal 3.3-5.1 [facility] Comment on above: Performed By: #### L 500.2500, L100.0100 ####[facility] [address] [place], [address] Sodium [Moles/Vol] 143 mmol/L Normal 133-145 [facility] Comment on above: Performed By: #### L 500.2500, L100.0100 ####[facility] [address] [place], [address] Urea nitrogen [Mass/Vol] 21 mg/dL High 4-19 [facility] Comment on above: Performed By: #### L 500.2500, L100.0100 ####[facility] [address] [place], [address] CBC W/Diff, Automatedon 11-0 Absolute Lymph 0.88 X10 3/uL Normal 0.83-4.51 [facility] Comment on above: Performed By: #### L 500.2500, L100.0100 ####[facility] [address] [place], [address] Absolute Neut 10.4 X10 3/uL High 2.0-7.7 [facility] Comment on above: Performed By: #### L 500.2500, L100.0100 ####[facility] [address] [place], [address] Basophils/100 WBC (Bld) 0.4 % Normal 0-1 [facility] Comment on above: Performed By: #### L 500.2500, L100.0100 ####[facility] [address] [place], [address] Eosinophils/100 WBC (Bld) 1.3 % Normal 0-5 [facility] Comment on above: Performed By: #### L 500.2500, L100.0100 ####[facility] [address] [place], [address] Erythrocyte distribution width (RBC) [Ratio] 12.5 % Normal 11.6-14.6 [facility] Comment on above: Performed By: #### L 500.2500, L100.0100 ####[facility] [address] [place], [address] Hematocrit (Bld) [Volume fraction] 40.7 % Normal 37-47 [facility] Comment on above: Performed By: #### L 500.2500, L100.0100 ####[facility] [address] [place], [address] Hemoglobin (Bld) [Mass/Vol] 12.9 g/dL Normal 12.0-15.0 [facility] Comment on above: Performed By: #### L 500.2500, L100.0100 ####[facility] [address] [place], [address] IG% 0.300 Normal 0.0-0.9 [facility] Comment on above: Result Comment: IG% - Immature Granulocytes (promyelocytes, myelocytes and metamyelocytes) > 1% indicates that a LEFT SHIFT is Present. Performed By: #### L 500.2500, L100.0100 ####[facility] [address] [place], [address] Lymphocytes/100 WBC (Bld) 7.6 % Low 19-41 [facility] Comment on above: Performed By: #### L 500.2500, L100.0100 ####[facility] [address] [place], [address] MCH (RBC) [Entitic mass] 29.9 pg Normal 27.0-32.0 [facility] Comment on above: Performed By: #### L 500.2500, L100.0100 ####[facility] [address] [place], [address] MCHC (RBC) [Mass/Vol] 31.7 g/dL Low 32-36 [facility] Comment on above: Performed By: #### L 500.2500, L100.0100 ####[facility] [address] [place], [address] MCV (RBC) [Entitic vol] 94.4 fL Normal 81-99 [facility] Comment on above: Performed By: #### L 500.2500, L100.0100 ####[facility] [address] [place], [address] Monocytes/100 WBC (Bld) 0.3 % Normal 0-10 [facility] Comment on above: Performed By: #### L 500.2500, L100.0100 ####[facility] [address] [place], [address] Neutrophils/100 WBC (Bld) 90.1 % High 47-70 [facility] Comment on above: Performed By: #### L 500.2500, L100.0100 ####[facility] [address] [place], [address] Nucleated RBC (Bld) [#/Vol] 0 10*3/uL Normal 0-5 [facility] Comment on above: Performed By: #### L 500.2500, L100.0100 ####[facility] [address] [place], [address] Platelet mean volume (Bld) [Entitic vol] 10.0 fL Normal 6.2-12.0 [facility] Comment on above: Performed By: #### L 500.2500, L100.0100 ####[facility] [address] [place], [address] Platelets (Bld) [#/Vol] 314 10*3/uL Normal 150-450 [facility] Comment on above: Performed By: #### L 500.2500, L100.0100 ####[facility] [address] [place], [address] RBC (Bld) [#/Vol] 4.31 10*6/uL Normal 4.2-5.4 [facility] Comment on above: Performed By: #### L 500.2500, L100.0100 ####[facility] [address] [place], [address] RDW SD 43.8 fl Normal 35.1-43.9 [facility] Comment on above: Performed By: #### L 500.2500, L100.0100 ####[facility] [address] [place], [address] WBC (Bld) [#/Vol] 11.6 10*3/uL High 4.4-11.0 [facility] Comment on above: Performed By: #### L 500.2500, L100.0100 ####[facility] [address] [place], [address] Emergency Department Summary on 01-14-2025 Emergency Department Summary [facility] Medical Records Department [address] [place] [address] Emergency Department Summary 01/14/25 MR#: [id number] Acct: [id number] Name: MICAELA COCHRAN Rep #: [id number] : 1945 79 From: Felicita Ambrosio MD PCP: ADALBERTO Guy Status:DEP ER Location: ED HPI History of Present Illness Chief Complaint: Flank Pain Narrative Narrative: Patient is a 79-year-old female presenting to the emergency department for right sided flank pain. Patient states that she was here on 01/03 and diagnosed with a UTI. She states that she was having the flank pain at that time. States that she took all of her antibiotics, she was prescribed Keflex. States that she still having the right sided flank pain. She states it worsens with any movement or twisting of her back. States if she is sitting still she is not having pain. She denies any fever, chills, abdominal pain, nausea, vomiting, diarrhea. She denies any trauma to her back. Denies any falls. Denies any saddle anesthesia, bowel or bladder retention or incontinence. She is denying any dysuria or hematuria. Denying any frequency or urgency. States that she is been taking Tylenol at home for pain control. [facility] Medical History Hypothyroid Non-smoker Sleep apnea Hypertension Migraines Chronic anemia Obesity Anxiety and depression GERD (gastroesophageal reflux disease) HLD (hyperlipidemia) PAF (paroxysmal atrial fibrillation) Fibromyalgia Osteoporosis Paroxysmal atrial fibrillation T12 compression fracture Closed right hip fracture Syncope Home Medications ???Medication ???Instructions ???Recorded ???Last Taken ???Type alendronate 70 mg tablet 70 mg PO QWEEK osteoporosis 08/16/24 History atorvastatin 20 mg tablet 20 mg PO QHS HLD 09/07/22 10/08/24 History fluoxetine 40 mg capsule 40 mg PO DAILY depression 09/07/22 10/08/24 History omeprazole 20 mg capsule,delayed 20 mg PO DAILY GERD 09/07/2210/08 History release calcium carbonate 500 mg (2.5 x 200 mg calcium (500 09/10/22 10/08/24 Rx mg)) PO TIDCM supplement #30 tabs levothyroxine 100 mcg tablet 100 mcg PO DAILY THYROID 05/05/24 10/09/24 History cholecalciferol (vitamin D3) 25 50 mcg (2 x 25 mcg (1,000 unit)) 0 05/22/24 10/08/24 Rx mcg (1,000 unit) tablet PO DAILY #0 tabs multivitamin-iron 9 mg-folic acid 1 tab PO DAILYCM #0 tabs 05/22/24 10/08/24 Rx 400 mcg-calcium and minerals tablet (Therapeutic-M) acetaminophen 500 mg tablet 1,000 mg PO Q8 PRN pain 08/21/24 0 08/21/24 History cyclobenzaprine 5 mg tablet 5 mg PO TID PRN pain 10/09/2409/12 History cephalexin 500 mg capsule 500 mg PO Q12 #14 CAPSULES 5 Unknown Rx hydrocodone-acetamino phen 5-325mg 1 tab PO Q8H PRN Pain 3 days #10 01/03/25 Unknown Rx 5mg-325mg TABLETS ciprofloxacin HCl 500 mg tablet 500 mg PO BID 7 days #14 tabs 06/05 Unknown Rx (Cipro) tamsulosin 0.4 mg capsule (Flomax) 0.4 mg PO QHS #14 caps 01/14/25 Unknown Rx Allergy/AdvReac Type Severity Reaction Status Date / Time codeine Allergy Unknown Verified 01/14/25 10:27 codeine phosphate (From AdvReac Unknown Verified 01/14/25 10:27 Tylenol-Codeine #3) nabumetone (From Relafen) AdvReac Unknown Verified 01/14/25 10:27 naproxen AdvReac Unknown Verified 01/14/25 10:27 Family History Mother Cancer Father Cancer Surgical History S/P ORIF (open reduction internal fixation) fracture History of section H/O ovarian cystectomy History of total right hip replacement S/P kyphoplasty S/P ORIF (open reduction internal fixation) fracture Social History household members: spouse Smoking Status: Never smoker alcohol intake: never substance use type: does not use ROS ROS ED ROS Narrative See HPI EXAM Physical Exam Narrative Exam Narrative: Vital signs: Reviewed General: Alert and oriented x 3. No acute distress. Chronically ill-appearing. HEENT: Head is normocephalic and atraumatic, sinuses nontender, pupils equal round and reactive. Nares are patent. Oropharynx and throat exams normal. Neck: Supple without lymphadenopathy nontender Cardiovascular: Regular rate and rhythm, no murmurs. No rubs or gallops. Normal S1 and S2 Respiratory: Clear to auscultation bilaterally. No wheezes, rales, rhonchi Abdominal: Soft and nontender. Normal bowel sounds. No guarding or rebound. Nonsurgical abdomen Extremities: There is no midline cervical, thoracic or lumbar spinal tenderness to palpation. No step-offs or deformities. There is right CVA tenderness to palpation. There is also right lumbar paraspinal tende (more content not included)... Normal [facility] Urinalysis, Completeon 01-14 BACTERIA 2+ /hpf Normal None Seen [facility] Comment on above: Order Comment: CLEAN CATCH Performed By: #### L 506.0400, L501.32420, L501.9520 #### [facility] [address] [place], [address] RBC 5-10 SEEN Normal 0-5 [facility] Comment on above: Order Comment: CLEAN CATCH Performed By: #### L 506.0400, L501.19293, L501.9520 #### [facility] [address] [place], [address] WBC 0-5 SEEN Normal 0-5 [facility] Comment on above: Order Comment: CLEAN CATCH Performed By: #### L 506.0400, L501.98849, L501.9520 #### [facility] [address] [place], [address] EPI,SQUAMOUS 0 SEEN Normal 5-10 [facility] Comment on above: Order Comment: CLEAN CATCH Performed By: #### L 506.0400, L501.74261, L501.9520 #### [facility] [address] [place], [address] Mucus Ql (Urine sed) 0 SEEN Normal [facility] Comment on above: Order Comment: CLEAN CATCH Performed By: #### L 506.0400, L501.23051, L501.9520 #### [facility] [address] [place], [address] Urine Cultureon 01-05-2025 URC Presumptive E. coli [place] Count >100,000 Presumptive E. coli: REACTION Ampicillin Islt YARITZA <=2 Ampicillin+Sulbac Islt YARITZA <=2 S Cefepime Islt YARITZA <=0.12 S cefTRIAXone Islt YARITZA <=0.25 S Ciprofloxacin Islt YARITZA <=0.06 S B-Lactamase Extended Susc Islt NEG Gentamicin Islt YARITZA <=1 S levoFLOXacin Islt YARITZA <=0.12 S Meropenem Islt YARITZA <=0.25 S Nitrofurantoin Islt YARITZA <=16 S Pip+Tazo Islt YARITZA <=4 S TMP SMX Islt YARITZA <=20 S Normal [facility] Comment on above: Performed By: #### L 400.0001 #### [facility] [address] [place], [address] CBC W/Diff, Automatedon 12-13 Absolute Lymph 1.51 X10 3/uL Normal 0.83-4.51 [facility] Comment on above: Performed By: #### L 400.0001 #### [facility] [address] [place], [address] Absolute Neut 6.3 X10 3/uL Normal 2.0-7.7 [facility] Comment on above: Performed By: #### L 400.0001 #### [facility] [address] [place], [address] Basophils/100 WBC (Bld) 0.7 % Normal 0-1 [facility] Comment on above: Performed By: #### L 400.0001 #### [facility] [address] [place], [address] Eosinophils/100 WBC (Bld) 3.1 % Normal 0-5 [facility] Comment on above: Performed By: #### L 400.0001 #### [facility] [address] [place], [address] Erythrocyte distribution width (RBC) [Ratio] 12.8 % Normal 11.6-14.6 [facility] Comment on above: Performed By: #### L 400.0001 #### [facility] [address] [place], [address] Hematocrit (Bld) [Volume fraction] 38.8 % Normal 37-47 [facility] Comment on above: Performed By: #### L 400.0001 #### [facility] [facility] [place], [address] Hemoglobin (Bld) [Mass/Vol] 12.4 g/dL Normal 12.0-15.0 [facility] Comment on above: Performed By: #### L 400.0001 #### [facility] [address] [place], [address] IG% 0.600 Normal 0.0-0.9 [facility] Comment on above: Result Comment: IG% - Immature Granulocytes (promyelocytes, myelocytes and metamyelocytes) > 1% indicates that a LEFT SHIFT is Present. Performed By: #### L 400.0001 #### [facility] [address] [place], [address] Lymphocytes/100 WBC (Bld) 17.4 % Low 19-41 [facility] Comment on above: Performed By: #### L 400.0001 #### [facility] [address] [place], [address] MCH (RBC) [Entitic mass] 30.0 pg Normal 27.0-32.0 [facility] Comment on above: Performed By: #### L 400.0001 #### [facility] [address] [place], [address] MCHC (RBC) [Mass/Vol] 32.0 g/dL Normal 32-36 [facility] Comment on above: Performed By: #### L 400.0001 #### [facility] [address] [place], [address] MCV (RBC) [Entitic vol] 93.7 fL Normal 81-99 [facility] Comment on above: Performed By: #### L 400.0001 #### [facility] [address] [place], [address] Monocytes/100 WBC (Bld) 5.6 % Normal 0-10 [facility] Comment on above: Performed By: #### L 400.0001 #### [facility] [address] [place], [address] Neutrophils/100 WBC (Bld) 72.6 % High 47-70 [facility] Comment on above: Performed By: #### L 400.0001 #### [facility] [address] [place], [address] Nucleated RBC (Bld) [#/Vol] 0 10*3/uL Normal 0-5 [facility] Comment on above: Performed By: #### L 400.0001 #### [facility] [address] [place], [address] Platelet mean volume (Bld) [Entitic vol] 10.1 fL Normal 6.2-12.0 [facility] Comment on above: Performed By: #### L 400.0001 #### [facility] [address] [place], [address] Platelets (Bld) [#/Vol] 350 10*3/uL Normal 150-450 [facility] Comment on above: Performed By: #### L 400.0001 #### [facility] [address] [place], [address] RBC (Bld) [#/Vol] 4.14 10*6/uL Low 4.2-5.4 [facility] Comment on above: Performed By: #### L 400.0001 #### [facility] [address] [place], [address] RDW SD 44.3 fl High 35.1-43.9 [facility] Comment on above: Performed By: #### L 400.0001 #### [facility] [address] [place], [address] WBC (Bld) [#/Vol] 8.7 10*3/uL Normal 4.4-11.0 [facility] Comment on above: Performed By: #### L 400.0001 #### [facility] [address] [place], [address] Comprehensive Metabolic Prof [facility] 01-03-2025 Albumin [Mass/Vol] 3.5 g/dL Normal 3.4-4.8 [facility] Comment on above: Performed By: #### L 506.0400, L501.78597, L501.9520 #### [facility] [address] [place], [address] Albumin/Globulin [Mass ratio] 1.0 {ratio} Normal 0.9-2.4 [facility] Comment on above: Performed By: #### L 506.0400, L501.95992, L501.9520 #### [facility] [address] [place], [address] ALK PHOS 145 U/L High 35-104 [facility] Comment on above: Performed By: #### L 506.0400, L501.58787, L501.9520 #### [facility] [address] [place], [address] ALT [Catalytic activity/Vol] 34 U/L Normal <=34 [facility] Comment on above: Performed By: #### L 506.0400, L501.80021, L501.9520 #### [facility] [address] [place], [address] AST [Catalytic activity/Vol] 44 U/L High <=31 [facility] Comment on above: Performed By: #### L 506.0400, L501.73608, L501.9520 #### [facility] [address] [place], [address] Bilirubin [Mass/Vol] 0.68 mg/dL Normal 0.00-1.30 [facility] Comment on above: Performed By: #### L 506.0400, L501.61991, L501.9520 #### [facility] [address] [place], [address] BUN/CRE 25.3 RATIO High 10-20 [facility] Comment on above: Performed By: #### L 506.0400, L501.89297, L501.9520 #### [facility] [address] [place], [address] Calcium [Mass/Vol] 9.0 mg/dL Normal 7.6-11.0 [facility] Comment on above: Performed By: #### L 506.0400, L501.51376, L501.9520 #### [facility] [address] [place], [address] Chloride [Moles/Vol] 107 mmol/L Normal 98-108 [facility] Comment on above: Performed By: #### L 506.0400, L501.45596, L501.9520 #### [facility] [address] [place], [address] CO2 [Moles/Vol] 19.6 mmol/L Low 21.0-32.0 [facility] Comment on above: Performed By: #### L 506.0400, L501.53899, L501.9520 #### [facility] [address] [place], [address] Creatinine [Mass/Vol] 0.64 mg/dL Low 0.70-1.20 [facility] Comment on above: Performed By: #### L 506.0400, L501.09263, L501.9520 #### [facility] [address] [place], [address] GAP 12 Normal 5-15 [facility] Comment on above: Performed By: #### L 506.0400, L501.61602, L501.9520 #### [facility] [address] [place], [address] GFR/1.73 sq M.predicted among non-blacks MDRD (S/P/Bld) [Vol rate/Area] 91 mL/min/{1.73_m2} Normal >60 [facility] Comment on above: Result Comment: mL/m in/1.73m2 CKD-EPI Creatinine Equation (2020) Performed By: #### L 506.0400, L501.66567, L501.9520 #### [facility] [address] [place], [address] Globulin (S) [Mass/Vol] 3.6 g/dL Normal 2.2-4.2 [facility] Comment on above: Performed By: #### L 506.0400, L501.82924, L501.9520 #### [facility] [address] [place], [address] Glucose [Mass/Vol] 82 mg/dL Normal 70-99 [facility] Comment on above: Performed By: #### L 506.0400, L501.62691, L501.9520 #### [facility] [address] [place], [address] Potassium [Moles/Vol] 4.8 mmol/L Normal 3.3-5.1 [facility] Comment on above: Performed By: #### L 506.0400, L501.52748, L501.9520 #### [facility] [address] [place], [address] Sodium [Moles/Vol] 138 mmol/L Normal 133-145 [facility] Comment on above: Performed By: #### L 506.0400, L501.84281, L501.9520 #### [facility] [address] [place], [address] T PROT 7.0 g/dL Normal 5.9-8.4 [facility] Comment on above: Performed By: #### L 506.0400, L501.24871, L501.9520 #### [facility] [address] [place], [address] Urea nitrogen [Mass/Vol] 16 mg/dL Normal 4-19 [facility] Comment on above: Performed By: #### L 506.0400, L501.92840, L501.9520 #### [facility] [address] [place], [address] Emergency Department Summary on 01-03-2025 Emergency Department Summary [facility] Medical Records Department [address] [place] [address] Emergency Department Summary 01/03/25 MR#: [id number] Acct: [id number] Name: MICAELA COCHRAN Rep #: [id number] : 1945 79 From: Laquita Anaya DO PCP: ADALBERTO Guy Status:DEP ER Location: ED HPI History of Present Illness Chief Complaint: Flank Pain Informant: patient and spouse/S.O. Narrative Narrative: Patient is a 79-year-old female history of osteoporosis, atrial fibrillation (not on any anticoagulation) multiple fractures presenting for worsening right lower back pain. Patient states has been worsening over the past few days. She states yesterday her pain was pretty unbearable. It is much worse with movement better at rest. She states it hurts to move. She notes she falls a lot but has not had any recent falls in the past week or 2. Denies any nausea, vomiting, urinary symptoms such as frequency, urgency or blood in her urine, change in bowel movements or abdominal pain. Denies any chest pain or shortness of breath. Has been taking Tylenol and headache pills which have helped a little bit. Says she has been taking ibuprofen at home. She has tried Lidoderm patches at home. Came in for further evaluation and pain control. Notes her pain is not as bad as was yesterday but she is worried that it will worsen to that level. notes that she has been having increased issues with incontinence because she cannot make it to the bathroom in time which he thinks is secondary to her pain. [facility] Medical History Hypothyroid Non-smoker Sleep apnea Hypertension Migraines Chronic anemia Obesity Anxiety and depression GERD (gastroesophageal reflux disease) HLD (hyperlipidemia) PAF (paroxysmal atrial fibrillation) Fibromyalgia Osteoporosis Paroxysmal atrial fibrillation T12 compression fracture Closed right hip fracture Syncope Home Medications ???Medication ???Instructions ???Recorded ???Last Taken ???Type alendronate 70 mg tablet 70 mg PO QWEEK osteoporosis 08/16/24 History atorvastatin 20 mg tablet 20 mg PO QHS HLD 09/07/22 10/08/24 History fluoxetine 40 mg capsule 40 mg PO DAILY depression 09/07/22 10/08/24 History omeprazole 20 mg capsule,delayed 20 mg PO DAILY GERD 09/07/2210/08 History release calcium carbonate 500 mg (2.5 x 200 mg calcium (500 09/10/22 10/08/24 Rx mg)) PO TIDCM supplement #30 tabs levothyroxine 100 mcg tablet 100 mcg PO DAILY THYROID 05/05/24 10/09/24 History cholecalciferol (vitamin D3) 25 50 mcg (2 x 25 mcg (1,000 unit)) 0 05/22/24 10/08/24 Rx mcg (1,000 unit) tablet PO DAILY #0 tabs multivitamin-iron 9 mg-folic acid 1 tab PO DAILYCM #0 tabs 05/22/24 10/08/24 Rx 400 mcg-calcium and minerals tablet (Therapeutic-M) acetaminophen 500 mg tablet 1,000 mg PO Q8 PRN pain 08/21/24 0 08/21/24 History cyclobenzaprine 5 mg tablet 5 mg PO TID PRN pain 10/09/2409/12 History cephalexin 500 mg capsule 500 mg PO Q12 #14 CAPSULES 5 Unknown Rx hydrocodone-acetamino phen 5-325mg 1 tab PO Q8H PRN Pain 3 days #10 01/03/25 Unknown Rx 5mg-325mg TABLETS Allergy/AdvReac Type Severity Reaction Status Date / Time codeine Allergy Unknown Verified 01/03/25 11:21 codeine phosphate (From AdvReac Unknown Verified 01/03/25 11:21 Tylenol-Codeine #3) nabumetone (From Relafen) AdvReac Unknown Verified 01/03/25 11:21 naproxen AdvReac Unknown Verified 01/03/25 11:21 Family History Mother Cancer Father Cancer Surgical [...] Constitutional Constitutional ED: Denies chills or fever(s) Gastrointestinal Gastrointestinal: Denies abdominal pain, constipation, diarrhea, nausea or vomiting Genitourinary Genitourinary ED: Reports urinary frequency; Denies dysuria or hematuria Musculoskeletal Musculoskeletal: Reports back pain; Denies arthralgias or myalgias Integumentary Denies rash Neurologic Neurologic: Reports weakness; Denies headache(s) or paresthesias Psychiatric Psychiatric: Denies anxiety Hematologic/Lymphatic Hematologic/Lymphatic : Denies easy bleeding or easy bruising EXAM Physical Exam Const Vital Signs: 01/03/25 11:22 Temperature 96.9 F L Temperature Source T (more content not included)... Normal [facility] Lumbar Spine 2 or 3 Viewson 01-03-2025 Lumbar Spine 2 or 3 Views [facility] Imaging Services [address] [place], [place] [address] Lumbar Spine 2 or 3 Views MR#: [id number] Acct: [id number] Name: MICAELA COCHRAN Rep #: [id number] : 1945 F 79 From: Ha merchant MD PCP: ADALBERTO Guy Status: REG ER Study: Lumbar Spine 2 or 3 Views Date of Exam: Exam# [id number] Ordering Dr: Laquita Anaya DO PROCEDURE: LUMBAR SPINE 2 OR 3 VIEWS 01/03/2025 REASON FOR EXAM: PAIN 3 day history of right flank pain. TECHNIQUE: Procedure Code: RADSPLL Modality: DX Procedure: LUMBAR SPINE 2 OR 3 VIEWS COMPARISON: None FINDINGS: Vertebrae: Prior vertebroplasty of the T12 vertebrae. Discs: Disc space narrowing at the L1-L2, L2-L3 and L3-L4 levels. Facet joint osteoarthritis. 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 Prior vertebroplasty of the T12 vertebrae. Reading Location: [place] [address] CC: PERFORMANCE TEST CONSULTANT-C Apryl Gorman; Dr. Laquita Anaya DO Inspector Cold Working: Signed Normal [facility] Urinalysis, Completeon 01-03 BACTERIA 4+ /hpf Normal None Seen [facility] Comment on above: Order Comment: CLEAN CATCH Performed By: #### L 506.0400, L501.71740, L501.9520 #### [facility] [address] [place], [place], [address] RBC 25-50 SEEN Normal 0-5 [facility] Comment on above: Order Comment: CLEAN CATCH Performed By: #### L 506.0400, L501.80920, L501.9520 #### [facility] [address] [place], [address] WBC >100 SEEN Normal 0-5 [facility] Comment on above: Order Comment: CLEAN CATCH Performed By: #### L 506.0400, L501.56616, L501.9520 #### [facility] [address] [place], [address] EPI,SQUAMOUS 0 SEEN Normal 5-10 [facility] Comment on above: Order Comment: CLEAN CATCH Performed By: #### L 506.0400, L501.59068, L501.9520 #### [facility] [address] [place], [address] Mucus Ql (Urine sed) 0 SEEN Normal [facility] Comment on above: Order Comment: CLEAN CATCH Performed By: #### L 506.0400, L501.82959, L501.9520 #### [facility] [address] [place], [address] Comprehensive metabolic 2000 panelon 11-30-2024 Albumin [Mass/Vol] 3.4 g/dL Low 3.9-4.9 [facility] Comment on above: Order Comment: Speci men Type: BLOOD SPECIMEN Ordering Facility: [facility] Address: [address] [place] [address] Performed By: #### 3 016-3, 55718-7 #### [facility] CLIA [id number] [address] [place] [address] [place] ALP [Catalytic activity/Vol] 136 U/L High 34-123 [facility] Comment on above: Order Comment: Speci men Type: BLOOD SPECIMEN Ordering Facility: [facility] Address: [address] [place], [place] [address] Performed By: #### 3 016-3, 10736-4 #### [facility] CLIA [id number] [address] [place], [place] [address] [place] ALT [Catalytic activity/Vol] 25 U/L Normal 7-38 [facility] Comment on above: Order Comment: Speci men Type: BLOOD SPECIMEN Ordering Facility: [facility] Address: [address] [place] [address] Performed By: #### 3 016-3, #### [facility] CLIA [id number] [address] [place] [address] [place] Anion gap [Moles/Vol] 10 mmol/L Normal 8-15 [facility] Comment on above: Order Comment: Speci men Type: BLOOD SPECIMEN Ordering Facility: [facility] Address: [address] [place] [address] Performed By: #### 3 016-3, 75195-7 #### [facility] CLIA [id number] [address] [place] [address] [place] AST [Catalytic activity/Vol] 35 U/L Normal 13-35 [facility] Comment on above: Order Comment: Speci men Type: BLOOD SPECIMEN Ordering Facility: [facility] Address: [address] [place] [address] Performed By: #### 3 016-3, #### [facility] CLIA [id number] [address] [place] [address] [place] Bilirubin [Mass/Vol] 0.6 mg/dL Normal 0.2-1.3 [facility] Comment on above: Order Comment: Speci men Type: BLOOD SPECIMEN Ordering Facility: [facility] Address: [address] [place], [place] [address] Performed By: #### 3 016-3, #### [facility] CLIA [id number] [address] [place] [address] [place] Calcium [Mass/Vol] 9.5 mg/dL Normal 8.5-10.2 [facility] Comment on above: Order Comment: Speci men Type: BLOOD SPECIMEN Ordering Facility: [facility] Address: [address] [place] [address] Performed By: #### 3 016-3, 42579-9 #### [facility] CLIA [id number] [address] [place] [address] [place] Chloride [Moles/Vol] 106 mmol/L Normal 98-107 [facility] Comment on above: Order Comment: Speci men Type: BLOOD SPECIMEN Ordering Facility: [facility] Address: [address] [place] [address] Performed By: #### 3 016-3, 58979-1 #### [facility] CLIA [id number] [address] [place] [address] [place] CO2 [Moles/Vol] 23 mmol/L Normal 22-30 [facility] Comment on above: Order Comment: Speci men Type: BLOOD SPECIMEN Ordering Facility: [facility] Address: [address] [place] [address] Performed By: #### 3 016-3, 97106-0 #### [facility] CLIA [id number] [address] [place] [address] [place] Creatinine [Mass/Vol] 0.65 mg/dL Normal 0.58-0.96 [facility] Comment on above: Order Comment: Speci men Type: BLOOD SPECIMEN Ordering Facility: [facility] Address: [address] [place] [address] Performed By: #### 3 016-3, 08048-1 #### [facility] CLIA [id number] [address] [place] [address] [place] eGFRcr SerPlBld CKD-EPI 2020 91 mL/min/1.73m??? Normal >=60 [facility] Comment on above: Order Comment: Speci men Type: BLOOD SPECIMEN Ordering Facility: [facility] Address: [address] [place] [address] Result Comment: Reema mated Glomerular Filtration Rate [...] accurately reflect actual GFR. Performed By: #### 3 016-3, 38047-5 #### [facility] [place] [id number] [address] [place] [address] [place] Glucose [Mass/Vol] 90 mg/dL Normal 74-99 [facility] Comment on above: Order Comment: Glendy lizama Type: BLOOD SPECIMEN Ordering Facility: [facility] Address: [address] [place] [address] Result Comment: The [place] [employer] (ADA) provides guidance for cutoff [...] Standards of Medical Care in Diabetes 2016, [place] [employer]. Diabetes Care. 2016.39(Suppl 1). Performed By: #### 3 016-3, 53679-6 #### [facility] CLIA [id number] [address] [place] [address] [place] Potassium [Moles/Vol] 4.6 mmol/L Normal 3.7-5.1 [facility] Comment on above: Order Comment: Glendy lizama Type: BLOOD SPECIMEN Ordering Facility: [facility] Address: [address] [place] [address] Performed By: #### 3 016-3, 09439-8 #### [facility] [place] [id number] [address] [place] [address] [place] Protein [Mass/Vol] 6.8 g/dL Normal 6.3-8.0 [facility] Comment on above: Order Comment: Speci men Type: BLOOD SPECIMEN Ordering Facility: [facility] Address: [address] [place] [address] Performed By: #### 3 016-3, 87371-6 #### [facility] CLIA [id number] [address] [place] [address] [place] Sodium [Moles/Vol] 139 mmol/L Normal 136-144 [facility] Comment on above: Order Comment: Speci men Type: BLOOD SPECIMEN Ordering Facility: [facility] Address: [address] [place] [address] Performed By: #### 3 016-3, 79085-8 #### [facility] CLIA [id number] [address] [place] [address] [place] Urea nitrogen [Mass/Vol] 15 mg/dL Normal 7-21 [facility] Comment on above: Order Comment: Speci men Type: BLOOD SPECIMEN Ordering Facility: [facility] Address: [address] [place] [address] Performed By: #### 3 016-3, 21740-8 #### [facility] CLIA [id number] [address] [place] [address] [place] TSH SerPl-aCncon 11-30-2024 TSH Qn 0.015 m[IU]/L Low 0.270-4.200 [facility] Comment on above: Order Comment: Speci men Type: BLOOD SPECIMEN Ordering Facility: [facility] Address: [address] [place] [address] Performed By: #### 3 016-3, 28735-7 #### [facility] CLIA [id number] [address] [place] [address] [place] CNOVon 10-12-2024 CNOV Office Visit (FAMPWS ) MICAELA COCHRAN ([id number]) 1945 F Date Time Provider Department 10/12/24 2:20 PM VERA POMPA During your visit today, we recorded the following information about you: Pulse Respiration Blood pressure Weight 72/minute 16/minute 118/70 57.7 kg Vera Pompa MD 10/12/2024 5:43 PM Signed Chief Complaint Patient presents with: ED Follow-up HPI Micaela Cochran is a 78 year old female who presents here today for ER Follow Up.. Pt was in [facility] ER on 09/23/24 for dehydration and weakness. Pt is feeling better. Was told to follow up with PCP to adjust thyroid medication as TSH was elevated. Pt currently taking Synthroid 100 mcg daily. Pt went to [facility] ER on 10/09/24 for confusion and not feeling well. She states that her vision is occ double and doesn't make her think right. She saw Dr. Ramirez at [facility] who did MRI which didn't show anything. Eye doctor did some blood work which they are awaiting results on. ER recommended she follow up with Neurology. 10/09/24 visit 09/23/24 visit Chief complaint: Fatigue 78-year-old female presents with feeling rundown. She notes this has been going on for 3 days. She states she had a fall 10 days ago and injured her right knee and right hip. States she is able to ambulate although difficulty secondary diffuse weakness. notes decreased p.o. intake and she has been feeling more fatigued the last 3 days. Denies any head trauma or loss of conscious during initial fall they both deny any new headaches, chest pain, shortness of breath, palpitations, cough, fever, chills. Denies any abdominal pain, vomiting, diarrhea, nausea. Denies difficulty urination, urgency, frequency. Denies paleness of skin. Denies any new falls. MDM Narrative: The patient was initially hemodynamically stable, afebrile and nontoxic-appearing. Exam without focal neurologic deficits. Noted healing ecchymosis tothe right knee. No abdominal TTP. Lungs were clear no murmurs or auscultated rhythm abnormalities. I considered the following differential diagnosis: Dehydration, UTI, hypothyroidism, arrhythmia, ACS, anemia, electrolyte disturbance, pneumonia, viral illness amongst others I obtained a broad lab and imaging to further determine if the patient was suffering from a life-threatening etiology. Initially treated the patient with a 500 cc bolus of normal saline given report of decreased p.o. intake ALL IMAGES (IF OBTAINED) HAVE BEEN PERSONALLY REVIEWED AND INTERPRETED BY MYSELF. EKG with normal sinus rhythm, left axis deviation, prolonged QTc interval with a485, no STEMI, no arrhythmia. I have personally reviewed the patient's chest x-ray. Chest x-ray is unremarkable for pulmonary edema, pneumothorax, pneumonia or focal cardiopulmonary abnormality. CBC without leukocytosis, severe anemia, no thrombocytopenia. High-sensitivity troponin is negative, no evidence of myocardial ischemia Lipase is wnl indicating no pancreatic inflammation. TSH elevated consistent hypothyroidism, T4 normal, T3 slightly low again consistent with hypothyroidism will encourage continuation of home levothyroxine COVID flu RSV negative BMP without significant electrolyte abnormalities, there is a anion gap of suggest endorgan hypoperfusion likely suggesting dehydration in the clinical context of decreased p.o. intake. LFTs with slight elevations in AST, ALT and alk phos has no right upper quadrantabdominal pain, no GI specific symptoms such as nausea or vomiting. She is not jaundiced. Will encourage outpatient follow-up Urinalysis without UTI The patient was able to ambulate here in the ED without significant difficulty with her home walker. Her labs images suggest no acute life or limb threateningetiology. Likely dehydration from decreased p.o. intake. Will prescribe Zofranencouraged increase oral fluid intake The patient and/or family, caregivers express understanding. The patient and/orfamily, caregivers agrees with the plan. Shared decision making: I will have a discussion with the patient and or visitors regarding risk/benefits of further testing or admission. They will be made aware of of the risk/benefits inherent in this decision they will be given the opportunity to voice understanding. Total critical care time today provided was at least 0 minutes. This excludes separately billable procedures. Critical care time (if documented) is secondary to the patient having high probability of clinically significant/life threatening deterioration in the patient's condition which required my urgent intervention. I Past medical history, appointments, medications, allergies reviewed. Previous Medical History PAST MEDICAL HISTORY Diagnosis Date Adjustment disorder with depressed mood Breast calcifications 12/2016 Depression Iron deficie (more content not included)... Normal [facility] CBC panel Auto (Bld)on 10-10 Erythrocyte distribution width (RBC) [Ratio] 13.2 % Normal 11.5-15.0 [facility] Comment on above: Order Comment: Speci dl Type: BLOOD SPECIMEN Ordering Facility: [facility] Address: [address] [place] [address] Performed By: #### 3 016-3, 12615-6 #### [facility] CLIA [id number] [address] [place] [address] [place] Hematocrit (Bld) [Volume fraction] 36.5 % Normal 36.0-46.0 [facility] Comment on above: Order Comment: Madaii dl Type: BLOOD SPECIMEN Ordering Facility: [facility] Address: [address] [place] [address] Performed By: #### 3 016-3, 29048-8 #### [facility] CLIA [id number] [address] [place] [address] [place] Hemoglobin (Bld) [Mass/Vol] 11.9 g/dL Normal 11.5-15.5 [facility] Comment on above: Order Comment: Speci men Type: BLOOD SPECIMEN Ordering Facility: [facility] Address: [address] [place] [address] Performed By: #### 3 016-3, 30704-6 #### [facility] CLIA [id number] [address] [place] [address] [place] MCH (RBC) [Entitic mass] 30.5 pg Normal 26.0-34.0 [facility] Comment on above: Order Comment: Madaii dl Type: BLOOD SPECIMEN Ordering Facility: [facility] Address: [address] [place] [address] Performed By: #### 3 3, 64493-3 #### [facility] CLIA [id number] [address] [place] [address] [place] MCHC (RBC) [Mass/Vol] 32.6 g/dL Normal 30.5-36.0 [facility] Comment on above: Order Comment: Speci men Type: BLOOD SPECIMEN Ordering Facility: [facility] Address: [address] [place] [address] Performed By: #### 3 3, #### [facility] CLIA [id number] [address] [place] [address] [place] MCV (RBC) [Entitic vol] 93.6 fL Normal 80.0-100.0 [facility] Comment on above: Order Comment: Speci men Type: BLOOD SPECIMEN Ordering Facility: [facility] Address: [address] [place] [address] Performed By: #### 3 , #### [facility] CLIA [id number] [address] [place] [address] [place] Nucleated RBC (Bld) [#/Vol] 10*3/uL Normal <0.01 [facility] Comment on above: Order Comment: Speci men Type: BLOOD SPECIMEN Ordering Facility: [facility] Address: [address] [place] [address] Performed By: #### 3 , #### [facility] CLIA [id number] [address] [place] [address] [place] Platelet mean volume (Bld) [Entitic vol] 10.1 fL Normal 9.0-12.7 [facility] Comment on above: Order Comment: Speci men Type: BLOOD SPECIMEN Ordering Facility: [facility] Address: [address] [place] [address] Performed By: #### 3 3, 04435-7 #### [facility] CLIA [id number] [address] [place] [address] [place] Platelets (Bld) [#/Vol] 447 10*3/uL High 150-400 [facility] Comment on above: Order Comment: Speci men Type: BLOOD SPECIMEN Ordering Facility: [facility] Address: [address] [place] [address] Performed By: #### 3 016-3, 47275-1 #### [facility] CLIA [id number] [address] [place] [address] [place] RBC (Bld) [#/Vol] 3.90 10*6/uL Normal 3.90-5.20 [facility] Comment on above: Order Comment: Speci men Type: BLOOD SPECIMEN Ordering Facility: [facility] Address: [address] [place] [address] Performed By: #### 3 016-3, 99354-9 #### [facility] CLIA [id number] [address] [place] [address] [place] WBC (Bld) [#/Vol] 6.90 10*3/uL Normal 3.70-11.00 [facility] Comment on above: Order Comment: Speci men Type: BLOOD SPECIMEN Ordering Facility: [facility] Address: [address] [place] [address] Performed By: #### 3 016-3, 26322-7 #### [facility] CLIA [id number] [address] [place], [place] [address] [place] Comprehensive metabolic 2000 panelon 10-10-2024 Albumin [Mass/Vol] 3.7 g/dL Low 3.9-4.9 [facility] Comment on above: Order Comment: Speci men Type: BLOOD SPECIMEN Ordering Facility: [facility] Address: [address] [place] [address] Performed By: #### 3 016-3, 56647-6 #### [facility] CLIA [id number] [address] [place] [address] [place] ALP [Catalytic activity/Vol] 298 U/L High 34-123 [facility] Comment on above: Order Comment: Speci men Type: BLOOD SPECIMEN Ordering Facility: [facility] Address: [address] [place] [address] Performed By: #### 3 016-3, 06684-9 #### [facility] CLIA [id number] [address] [place] [address] [place] ALT [Catalytic activity/Vol] 67 U/L High 7-38 [facility] Comment on above: Order Comment: Speci men Type: BLOOD SPECIMEN Ordering Facility: [facility] Address: [address] [place] [address] Performed By: #### 3 016-3, 28350-1 #### [facility] CLIA [id number] [address] [place] [address] [place] Anion gap [Moles/Vol] 13 mmol/L Normal 8-15 [facility] Comment on above: Order Comment: Speci men Type: BLOOD SPECIMEN Ordering Facility: [facility] Address: [address] [place] [address] Performed By: #### 3 016-3, 37330-3 #### [facility] CLIA [id number] [address] [place] [address] [place] AST [Catalytic activity/Vol] 48 U/L High 13-35 [facility] Comment on above: Order Comment: Speci men Type: BLOOD SPECIMEN Ordering Facility: [facility] Address: [address] [place], [place] [address] Performed By: #### 3 016-3, 43775-6 #### [facility] CLIA [id number] [address] [place] [address] [place] Bilirubin [Mass/Vol] 0.7 mg/dL Normal 0.2-1.3 [facility] Comment on above: Order Comment: Speci men Type: BLOOD SPECIMEN Ordering Facility: [facility] Address: [address] [place], [place] [address] Performed By: #### 3 016-3, #### [facility] CLIA [id number] [address] [place] [address] [place] Calcium [Mass/Vol] 8.9 mg/dL Normal 8.5-10.2 [facility] Comment on above: Order Comment: Speci men Type: BLOOD SPECIMEN Ordering Facility: [facility] Address: [address] [place] [address] Performed By: #### 3 016-3, #### [facility] CLIA [id number] [address] [place] [address] [place] Chloride [Moles/Vol] 103 mmol/L Normal 98-107 [facility] Comment on above: Order Comment: Speci men Type: BLOOD SPECIMEN Ordering Facility: [facility] Address: [address] [place] [address] Performed By: #### 3 016-3, #### [facility] CLIA [id number] [address] [place] [address] [place] CO2 [Moles/Vol] 22 mmol/L Normal 22-30 [facility] Comment on above: Order Comment: Speci men Type: BLOOD SPECIMEN Ordering Facility: [facility] Address: [address] [place] [address] Performed By: #### 3 016-3, #### [facility] CLIA [id number] [address] [place] [address] [place] Creatinine [Mass/Vol] 0.72 mg/dL Normal 0.58-0.96 [facility] Comment on above: Order Comment: Speci men Type: BLOOD SPECIMEN Ordering Facility: [facility] Address: [address] [place], [place] [address] Performed By: #### 3 016-3, 08576-3 #### [facility] CLIA [id number] [address] [place] [address] [place] eGFRcr SerPlBld CKD-EPI 2020 87 mL/min/1.73m??? Normal >=60 [facility] Comment on above: Order Comment: Glendy lizama Type: BLOOD SPECIMEN Ordering Facility: [facility] Address: [address] [place] [address] Result Comment: Reema mated Glomerular Filtration Rate [...] accurately reflect actual GFR. Performed By: #### 3 016-3, 56231-0 #### [facility] CLIA [id number] [address] [place] [address] [place] Glucose [Mass/Vol] 82 mg/dL Normal 74-99 [facility] Comment on above: Order Comment: Glendy lizama Type: BLOOD SPECIMEN Ordering Facility: [facility] Address: [address] [place] [address] Result Comment: The [place] [employer] (ADA) provides guidance for cutoff [...] Standards of Medical Care in Diabetes 2016, [place] [employer]. Diabetes Care. 2016.39(Suppl 1). Performed By: #### 3 016-3, 36246-1 #### [facility] CLIA [id number] [address] [place] [address] [place] Potassium [Moles/Vol] 4.0 mmol/L Normal 3.7-5.1 [facility] Comment on above: Order Comment: Speci men Type: BLOOD SPECIMEN Ordering Facility: [facility] Address: [address] [place] [address] Performed By: #### 3 016-3, 62839-9 #### [facility] CLIA [id number] [address] [place] [address] [place] Protein [Mass/Vol] 7.4 g/dL Normal 6.3-8.0 [facility] Comment on above: Order Comment: Speci men Type: BLOOD SPECIMEN Ordering Facility: [facility] Address: [address] [place] [address] Performed By: #### 3 016-3, 12480-0 #### [facility] CLIA [id number] [address] [place] [address] [place] Sodium [Moles/Vol] 138 mmol/L Normal 136-144 [facility] Comment on above: Order Comment: Speci men Type: BLOOD SPECIMEN Ordering Facility: [facility] Address: [address] [place] [address] Performed By: #### 3 016-3, 80457-1 #### [facility] CLIA [id number] [address] [place] [address] [place] Urea nitrogen [Mass/Vol] 16 mg/dL Normal 7-21 [facility] Comment on above: Order Comment: Speci men Type: BLOOD SPECIMEN Ordering Facility: [facility] Address: [address] [place] [address] Performed By: #### 3 016-3, 90044-9 #### [facility] CLIA [id number] [address] [place] [address] [place] Lipid 1996 panelon 5 Cholesterol [Mass/Vol] 125 mg/dL Normal <200 [facility] Comment on above: Order Comment: Glendy men Type: BLOOD SPECIMEN Ordering Facility: [facility] Address: [address] [place] [address] Result Comment: <200 mg/dL, Desirable 200-239 mg/dL, Borderline high >239 mg/dL, High Performed By: #### 3 016-3, 80836-9 #### [facility] CLIA [id number] [address] [place] [address] [place] Cholesterol in HDL [Mass/Vol] 42 mg/dL Normal >39 [facility] Comment on above: Order Comment: Glendy men Type: BLOOD SPECIMEN Ordering Facility: [facility] Address: [address] [place] [address] Result Comment: 40-5 9 mg/dL, Acceptable >59 mg/dL, High: Negative risk factor for coronary heart disease <40 mg/dL, Low: Positive risk factor for coronary heart disease Performed By: #### 3 016-3, 63649-4 #### [facility] CLIA [id number] [address] [place] [address] [place] Cholesterol in LDL [Mass/Vol] 68 mg/dL Normal <100 [facility] Comment on above: Order Comment: Glendy lizama Type: BLOOD SPECIMEN Ordering Facility: [facility] Address: [address] [place] [address] Result Comment: <100 mg/dL, Optimal 100-129 mg/dL, Near optimal/above optimal 130-159 mg/dL, Borderline high 160-189 mg/dL, High >189 mg/dL, Very high Secondary prevention optimal LDL Cholesterol levels are recommended to be <70 mg/dL LDL cholesterol is calculated using the Chirinos-NIH equation. Performed By: #### 3 016-3, 17374-7 #### [facility] CLIA [id number] [address] [place] [address] [place] Cholesterol in LDL/Cholesterol in HDL [Mass ratio] 1.62 {ratio} Normal <2.54 [facility] Comment on above: Order Comment: Speci men Type: BLOOD SPECIMEN Ordering Facility: [facility] Address: [address] [place] [address] Result Comment: Jadiel hector: 1. National Cholesterol Education Program ATP III Guideline At-A-Glance Quick Desk Reference: National Heart, Lung, and Blood [place]. National Institutes of Health. 2001: NIH Publication No. 01-3305. 2. An International Atherosclerosis Society position paper: global recommendations for the management of dyslipidemia: executive summary, Atherosclerosis. 2014: 232(2):410-413. Performed By: #### 3 016-3, 41122-6 #### [facility] CLIA [id number] [address] [place] [address] [place] Cholesterol in VLDL [Mass/Vol] 11 mg/dL Normal <30 [facility] Comment on above: Order Comment: Glendy lizama Type: BLOOD SPECIMEN Ordering Facility: [facility] Address: [address] [place] [address] Performed By: #### 3 016-3, 46241-8 #### [facility] CLIA [id number] [address] [place] [address] [place] Cholesterol non HDL [Mass/Vol] 83 mg/dL Normal <130 [facility] Comment on above: Order Comment: Glendy lizama Type: BLOOD SPECIMEN Ordering Facility: [facility] Address: [address] [place] [address] Result Comment: <130 mg/dL, Optimal 130-159 mg/dL, Near optimal/above optimal 160-189 mg/dL, Borderline high 190-219 mg/dL, High >219 mg/dL, Very high Secondary prevention optimal non HDL Cholesterol levels are recommended to be <100 mg/dL Performed By: #### 3 016-3, 63874-5 #### [facility] CLIA [id number] [address] [place] [address] [place] Cholesterol.total/Choles terol in HDL [Mass ratio] 2.98 {ratio} Normal <5.10 [facility] Comment on above: Order Comment: Glendy lizama Type: BLOOD SPECIMEN Ordering Facility: [facility] Address: [address] [place] [address] Performed By: #### 3 016-3, 76030-1 #### [facility] CLIA [id number] [address] [place] [address] [place] FASTING TIME 12 hrs Normal [facility] Comment on above: Order Comment: Speci men Type: BLOOD SPECIMEN Ordering Facility: [facility] Address: [address] [place] [address] Performed By: #### 3 016-3, 93536-5 #### [facility] CLIA [id number] [address] [place] [address] [place] Triglyceride [Mass/Vol] 73 mg/dL Normal <150 [facility] Comment on above: Order Comment: Speci men Type: BLOOD SPECIMEN Ordering Facility: [facility] Address: [address] [place] [address] Result Comment: <150 mg/dL, Normal 150-199 mg/dL, Borderline high 200-499 mg/dL, High >499 mg/dL, Very high Performed By: #### 3 016-3, 91546-4 #### [facility] CLIA [id number] [address] [place] [address] [place] TSH SerPl-aCncon 10-10-2024 TSH Qn 16.300 m[IU]/L High 0.270-4.200 [facility] Comment on above: Order Comment: Speci men Type: BLOOD SPECIMEN Ordering Facility: [facility] Address: [address] [place] [address] Performed By: #### 3 016-3, 42177-8 #### [facility] CLIA [id number] [address] [place] [address] [place] 12 Lead EKGon 10-09-2024 12 Lead EKG [facility] [address] [place] [address] 12 Lead EKG 10/09/24 1358 MR#: [id number] Acct: [id number] Name: MICAELA COCHRAN Rep #: [id number] : 1945 78 From: Chinmay Klein MD Attending Dr: Status: DEP ER Ordering Dr: Nataly Vaughn DO Date: 10/09/24 Location: ED Sex: F C Admitted: Test Reason : WEAKNESS Blood Pressure : */* mmHG Vent. Rate : 77 BPM Atrial Rate : 77 BPM P-R Int : 142 ms QRS Dur : 68 ms QT Int : 410 ms P-R-T Axes : 45 -13 32 degrees QTcB Int : 463 ms Normal sinus rhythm Normal ECG Confirmed by CAITLIN SCHMIDT, CHINMAY ([id number]), health editor ARASH BARRAZA ([id number]) on 10/10/2024 8:37:59 AM Referred By: Confirmed By: CHINMAY KLEIN MD 10/10/24 0838 Date Chinmay Klein MD CC: Dr. Vera Pompa MD; Dr. Nataly Vaughn DO Signed Normal [facility] Absolute lymphocyte countOrd ered By: Nataly Vaughn on 10-09-2024 Lymphocytes Auto (Unsp spec) [#/Vol] 1.35 10*3/uL 0.83-4.51 [facility] Absolute neutrophil countOrd ered By: Nataly Vaughn on 10-09-2024 Neutrophils (Bld) [#/Vol] 4.9 10*3/uL 2.0-7.7 [facility] Anion gap in Serum or Plasma Ordered By: Nataly Vaughn on 10-09-2024 Anion gap [Moles/Vol] 14 mmol/L 5-15 [facility] Automated lymphocyte count a s percentage of total leukocytesOrdered By: Nataly Vaughn on 10-09-2024 Lymphocytes/100 WBC Auto (Unsp spec) 18.9 % Low 19-41 [facility] BUN/creatinine ratioOrdered By: Nataly Vaughn on 10-09-2024 Urea nitrogen/Creatinine [Mass ratio] 20.9 mg/mg High 10-20 [facility] Basophil percentageOrdered B y: Nataly Vaughn on 10-09-2024 Basophils/100 WBC (Bld) 0.8 % 0-1 [facility] Bilirubin Test strip Ql (U)O rdered By: Nataly Vaughn on 10-09-2024 Bilirubin Ql (U) Negative Negative [facility] Bilirubin, totalOrdered By: Nataly Vaughn on 10-09-2024 Bilirubin [Mass/Vol] 0.76 mg/dL 0.00-1.30 [facility] CBC W/Diff, Automatedon 09-12 Absolute Lymph 1.35 X10 3/uL Normal 0.83-4.51 [facility] Comment on above: Performed By: #### L 506.0400, L501.45533, L501.9520 #### [facility] [address] [place], [address] Absolute Neut 4.9 X10 3/uL Normal 2.0-7.7 [facility] Comment on above: Performed By: #### L 506.0400, L501.59526, L501.9520 #### [facility] [address] [place], [address] Basophils/100 WBC (Bld) 0.8 % Normal 0-1 [facility] Comment on above: Performed By: #### L 506.0400, L501.76595, L501.9520 #### [facility] [address] [place], [address] Eosinophils/100 WBC (Bld) 4.2 % Normal 0-5 [facility] Comment on above: Performed By: #### L 506.0400, L501.40958, L501.9520 #### [facility] [address] [place], [address] Erythrocyte distribution width (RBC) [Ratio] 13.2 % Normal 11.6-14.6 [facility] Comment on above: Performed By: #### L 506.0400, L501.69963, L501.9520 #### [facility] [address] [place], [address] Hematocrit (Bld) [Volume fraction] 37.6 % Normal 37-47 [facility] Comment on above: Performed By: #### L 506.0400, L501.92753, L501.9520 #### [facility] [address] [place], [address] Hemoglobin (Bld) [Mass/Vol] 11.9 g/dL Low 12.0-15.0 [facility] Comment on above: Performed By: #### L 506.0400, L501.49280, L501.9520 #### [facility] [address] [place], [address] IG% 0.400 Normal 0.0-0.9 [facility] Comment on above: Result Comment: IG% - Immature Granulocytes (promyelocytes, myelocytes and metamyelocytes) > 1% indicates that a LEFT SHIFT is Present. Performed By: #### L 506.0400, L501.51532, L501.9520 #### [facility] [address] [place], [address] Lymphocytes/100 WBC (Bld) 18.9 % Low 19-41 [facility] Comment on above: Performed By: #### L 506.0400, L501.69012, L501.9520 #### [facility] [address] [place], [address] MCH (RBC) [Entitic mass] 30.4 pg Normal 27.0-32.0 [facility] Comment on above: Performed By: #### L 506.0400, L501.72932, L501.9520 #### [facility] [address] [place], [address] MCHC (RBC) [Mass/Vol] 31.6 g/dL Low 32-36 [facility] Comment on above: Performed By: #### L 506.0400, L501.32778, L501.9520 #### [facility] [address] [place], [address] MCV (RBC) [Entitic vol] 96.2 fL Normal 81-99 [facility] Comment on above: Performed By: #### L 506.0400, L501.01461, L501.9520 #### [facility] [address] [place], [address] Monocytes/100 WBC (Bld) 7.3 % Normal 0-10 [facility] Comment on above: Performed By: #### L 506.0400, L501.40729, L501.9520 #### [facility] [address] [place], [address] Neutrophils/100 WBC (Bld) 68.4 % Normal 47-70 [facility] Comment on above: Performed By: #### L 506.0400, L501.00839, L501.9520 #### [facility] [address] [place], [address] Nucleated RBC (Bld) [#/Vol] 0 10*3/uL Normal 0-5 [facility] Comment on above: Performed By: #### L 506.0400, L501.13924, L501.9520 #### [facility] [address] [place], [address] Platelet mean volume (Bld) [Entitic vol] 9.8 fL Normal 6.2-12.0 [facility] Comment on above: Performed By: #### L 506.0400, L501.79231, L501.9520 #### [facility] [address] [place], [address] Platelets (Bld) [#/Vol] 429 10*3/uL Normal 150-450 [facility] Comment on above: Performed By: #### L 506.0400, L501.11868, L501.9520 #### [facility] [address] [place], [address] RBC (Bld) [#/Vol] 3.91 10*6/uL Low 4.2-5.4 [facility] Comment on above: Performed By: #### L 506.0400, L501.44327, L501.9520 #### [facility] [address] [place], [address] RDW SD 46.2 fl High 35.1-43.9 [facility] Comment on above: Performed By: #### L 506.0400, L501.50477, L501.9520 #### [facility] [address] [place], [address] WBC (Bld) [#/Vol] 7.2 10*3/uL Normal 4.4-11.0 [facility] Comment on above: Performed By: #### L 506.0400, L501.18986, L501.9520 #### [facility] [address] [place], [address] CRPon 10-09-2024 C-REACTIVE PROT 5.52 mg/L High 0.0-3.0 [facility] Comment on above: Performed By: #### L 506.0400, L501.57043, L501.9520 #### [facility] [address] [place], [address] CTA Head AND Neck W/ Contras ton 10-09-2024 CTA Head AND Neck W/ Contrast [facility] Imaging Services [address] [place] [address] CTA Head AND Neck W/ Contrast MR#: [id number] Acct: [id number] Name: MICAELA COCHRAN Rep #: [id number] : 1945 F 78 From: Ha merchant MD PCP: Dr. Vera Pompa MD Status: REG ER Study: CTA Head AND Neck W/ Contrast Date of Exam: Exam# [id number] Ordering Dr: Nataly Vaughn DO PROCEDURE: CTA HEAD AND NECK W/ CONTRAST 10/09/2024 REASON FOR EXAM: DIFFICULTY WITH VISION TECHNIQUE: CTA HEAD AND NECK W/ CONTRAST Multiplanar Sagittal and Coronal images were obtained. 3D post processing was performed CONTRAST: Isovue 370 VOLUME: 75 mL One or more dose reduction techniques were used (e.g., Automated exposure control, adjustment of the mA and/or kV according to patient size, use of iterative reconstruction technique). RADIATION DOSE SUMMARY: CTDlvol: 24 mGy DLP: 1307.26 mGycm COMPARISON: Prior CT scan of the head dated May 25, 2023. FINDINGS: Aortic Arch: Normal size and branching pattern. Mild atherosclerotic plaque. Brachiocephalic and Subclavians: Mild atherosclerotic plaque without significant stenosis. RIGHT Carotid: Right CCA: Unremarkable. Right ICA: Maximum stenosis (NASCET): <50 % Right ECA: Unremarkable. LEFT Carotid: Left CCA: Unremarkable. Left ICA: Mild calcified and soft plaque. Maximum stenosis (NASCET): <50 % Left ECA: Unremarkable. Vertebrals: Codominant. Arise from the subclavians. Both vertebrals form the basilar. RIGHT Vertebral: Unremarkable. LEFT Vertebral: Unremarkable. Anatomy: [place] anatomy is normal. Aneurysm or avm: No intracranial aneurysms or large vascular malformations are identified. Anterior cerebral arteries: Unremarkable: Middle cerebral arteries: Unremarkable. Basilar artery: Unremarkable. Posterior cerebral arteries: Unremarkable. Other major branches of the posterior circulation: Unremarkable. Major venous structures: Unremarkable. Other findings: Chronic changes on the unenhanced CT scan of the brain with the dense calcifications of the basal ganglia bilaterally. CT/CTA Head AND Neck W/ Contrast IMPRESSION: No significant plaque formation is seen. Chronic changes on the unenhanced CT scan of the brain. Reading Location: [id number] CC: Dr. Vera Pompa MD; Dr. Nataly Vaughn DO Inspector Cold Working: Signed Normal [facility] Carbon dioxide, total [Moles /volume] in Central venous bloodOrdered By: Nataly Lutherdarien on 10-09-2024 CO2 [Moles/Vol] 20.2 mmol/L Low 21.0-32.0 [facility] Chloride assayOrdered By: Tania Vaughn on 10-09-2024 Chloride [Moles/Vol] 103 mmol/L 98-108 [facility] Comprehensive Metabolic Prof ilon 10-09-2024 Albumin [Mass/Vol] 3.4 g/dL Normal 3.4-4.8 [facility] Comment on above: Performed By: #### L 506.0400, L501.11994, L501.9520 #### [facility] [address] [place], [address] Albumin/Globulin [Mass ratio] 0.9 {ratio} Normal 0.9-2.4 [facility] Comment on above: Performed By: #### L 506.0400, L501.98139, L501.9520 #### [facility] [address] [place], [address] ALK PHOS 305 U/L High 35-104 [facility] Comment on above: Performed By: #### L 506.0400, L501.09199, L501.9520 #### [facility] [address] [place], [address] ALT [Catalytic activity/Vol] 82 U/L High <=34 [facility] Comment on above: Performed By: #### L 506.0400, L501.64294, L501.9520 #### [facility] [address] [place], [address] AST [Catalytic activity/Vol] 67 U/L High <=31 [facility] Comment on above: Result Comment: Hemo lysis present, Results??could be affected. ?? Performed By: #### L 506.0400, L501.00078, L501.9520 #### [facility] [address] [place], [address] Bilirubin [Mass/Vol] 0.76 mg/dL Normal 0.00-1.30 [facility] Comment on above: Performed By: #### L 506.0400, L501.20675, L501.9520 #### [facility] [address] [place], [address] BUN/CRE 20.9 RATIO High 10-20 [facility] Comment on above: Performed By: #### L 506.0400, L501.02983, L501.9520 #### [facility] [address] [place], [address] Calcium [Mass/Vol] 8.6 mg/dL Normal 7.6-11.0 [facility] Comment on above: Performed By: #### L 506.0400, L501.36835, L501.9520 #### [facility] [address] [place], [address] Chloride [Moles/Vol] 103 mmol/L Normal 98-108 [facility] Comment on above: Performed By: #### L 506.0400, L501.65226, L501.9520 #### [facility] [address] [place], [address] CO2 [Moles/Vol] 20.2 mmol/L Low 21.0-32.0 [facility] Comment on above: Performed By: #### L 506.0400, L501.43356, L501.9520 #### [facility] [address] [place], [address] Creatinine [Mass/Vol] 0.67 mg/dL Low 0.70-1.20 [facility] Comment on above: Performed By: #### L 506.0400, L501.40741, L501.9520 #### [facility] [address] [place], [address] ECRCL 48.11 ml/min Low 50-250 [facility] Comment on above: Performed By: #### L 506.0400, L501.62317, L501.9520 #### [facility] [address] [place], [address] GAP 14 Normal 5-15 [facility] Comment on above: Performed By: #### L 506.0400, L501.66153, L501.9520 #### [facility] [address] [place], [address] GFR/1.73 sq M.predicted among non-blacks MDRD (S/P/Bld) [Vol rate/Area] 90 mL/min/{1.73_m2} Normal >60 [facility] Comment on above: Result Comment: mL/m in/1.73m2 CKD-EPI Creatinine Equation (2020) Performed By: #### L 506.0400, L501.98401, L501.9520 #### [facility] [address] [place], [address] Globulin (S) [Mass/Vol] 3.6 g/dL Normal 2.2-4.2 [facility] Comment on above: Performed By: #### L 506.0400, L501.05202, L501.9520 #### [facility] [address] [place], [address] Glucose [Mass/Vol] 92 mg/dL Normal 70-99 [facility] Comment on above: Performed By: #### L 506.0400, L501.31331, L501.9520 #### [facility] [address] [place], [address] Potassium [Moles/Vol] 4.3 mmol/L Normal 3.3-5.1 [facility] Comment on above: Result Comment: Hemo lysis present, Results??could be affected. ?? Performed By: #### L 506.0400, L501.16006, L501.9520 #### [facility] [address] [place], [address] Sodium [Moles/Vol] 137 mmol/L Normal 133-145 [facility] Comment on above: Performed By: #### L 506.0400, L501.24755, L501.9520 #### [facility] [address] [place], [address] T PROT 7.0 g/dL Normal 5.9-8.4 [facility] Comment on above: Performed By: #### L 506.0400, L501.72650, L501.9520 #### [facility] [address] [place], [address] Urea nitrogen [Mass/Vol] 14 mg/dL Normal 4-19 [facility] Comment on above: Performed By: #### L 506.0400, L501.74684, L501.9520 #### [facility] [address] [place], [address] Emergency Department Summary on 10-09-2024 Emergency Department Summary [facility] Medical Records Department [address] [place] [address] Emergency Department Summary 10/09/24 MR#: [id number] Acct: [id number] Name: MICAELA COCHRAN Rep #: [id number] : 1945 78 From: Nataly Vaughn DO PCP: Dr. Vera Pompa MD Status:REG ER Location: ED ADDENDUM by Dr. Laquita Anaya DO on 10/09/24 at 1803 Patient signed out to me pending CTA results and urinalysis. CT does not show any acute process. Urinalysis not distant with infection or other acute abnormalities. Patient reevaluated. She is comfortable discharge home with continued outpatient follow-up with ophthalmology. She has lab work scheduled for tomorrow. She is encouraged to keep this. Will be given referral for neurology as well. Discussed return symptoms including fever, difficulty swallowing/choking, shortness of breath or progression of her symptoms. She verbalized understand this. Discharged home in stable condition. 10/09/241802 Cosigner Signature (if applicable): cc: Dr. Vera Pompa MD * Signed HPI History of Present Illness Chief Complaint: Confusion Detail of Chief Complaint: Not feeling well Informant: patient Narrative Narrative: Patient presents to the emergency department with vague complaint of not feeling well. She has a hard time describing how she does not feel well. She describes feeling like she is only half there . states that while in the bathroom today she seemed a little disoriented. She for over the last week or so has been having some issue with her left eye. She has been seen by ophthalmology who ordered an MRI of her brain that was performed and was unremarkable. More blood testing was ordered yesterday. Patient denies recent illness. She has had some intermittent double vision. She denies chest pain or abdominal pain. She denies urinary symptoms. She has had no fever. [facility] Medical History Hypothyroid Non-smoker Sleep apnea Hypertension Migraines Chronic anemia Obesity Anxiety and depression GERD (gastroesophageal reflux disease) HLD (hyperlipidemia) PAF (paroxysmal atrial fibrillation) Fibromyalgia Osteoporosis Paroxysmal atrial fibrillation T12 compression fracture Closed right hip fracture Syncope Home Medications ???Medication ???Instructions ???Recorded ???Last Taken ???Type alendronate 70 mg tablet 70 mg PO QWEEK osteoporosis 08/16/24 History atorvastatin 20 mg tablet 20 mg PO QHS HLD 09/07/22 10/08/24 History fluoxetine 40 mg capsule 40 mg PO DAILY depression 09/07/22 10/08/24 History omeprazole 20 mg capsule,delayed 20 mg PO DAILY GERD 09/07/2210/08 History release calcium carbonate 500 mg (2.5 x 200 mg calcium (500 09/10/22 10/08/24 Rx mg)) PO TIDCM supplement #30 tabs levothyroxine 100 mcg tablet 100 mcg PO DAILY THYROID 05/05/24 10/09/24 History cholecalciferol (vitamin D3) 25 50 mcg (2 x 25 mcg (1,000 unit)) 0 05/22/24 10/08/24 Rx mcg (1,000 unit) tablet PO DAILY #0 tabs multivitamin-iron 9 mg-folic acid 1 tab PO DAILYCM #0 tabs 05/22/24 10/08/24 Rx 400 mcg-calcium and minerals tablet (Therapeutic-M) acetaminophen 500 mg tablet 1,000 mg PO Q8 PRN pain 08/21/24 0 08/21/24 History cyclobenzaprine 5 mg tablet 5 mg PO TID PRN pain 10/09/24 07/12/06 History Allergy/AdvReac Type Severity Reaction Status Date / Time codeine Allergy Unknown Verified 10/09/24 13:02 codeine phosphate (From AdvReac Unknown Verified 10/09/24 13:02 Tylenol-Codeine #3) nabumetone (From Relafen) AdvReac Unknown Verified 10/09/24 13:02 naproxen AdvReac Unknown Verified 10/09/24 13:02 Family History Mother Cancer Father Cancer Surgical History S/P ORIF (open reduction internal fixation) fracture History of section H/O ovarian cystectomy History of total right hip replacement S/P kyphoplasty S/P ORIF (open reduction internal fixation) fracture Social History household members: spouse Smoking Status: Never smoker alcohol intake: never substance use type: does not use ROS ROS ED Review of Systems ROS Unobtainable: other Constitutional Constitutional ED: Reports lethargy; Denies chills, fever(s), sweats or weight loss Eyes Eyes: Reports diplopia; Denies blurry vision or change in vision ENT ENT ED: Denies rhinorrhea or sore throat Cardiovascular Cardiovascular: Denies chest pain, orthopnea or racing heartbeat Respiratory/Chest Respiratory/Chest: Denies cough, dyspnea, dyspnea on exertion, orthopnea or sputum Gastrointestinal Gastrointestinal: Denies abdominal pain, diarrhea, nausea or vom (more content not included)... Normal [facility] Eosinophil percentageOrdered By: Nataly Vaughn on 10-09-2024 Eosinophils/100 WBC (Bld) 4.2 % 0-5 [facility] Erythrocyte Sed Rateon 10-09 SED RATE 40 mm/hr High 0-30 [facility] Comment on above: Performed By: #### L 506.0400, L501.44319, L501.9520 #### [facility] [place], [address] Erythrocyte distribution wid th ratioOrdered By: Nataly Vaughn on 10-09-2024 Erythrocyte distribution width (RBC) [Ratio] 13.2 % 11.6-14.6 [facility] Erythrocyte distribution wid th standard deviationOrdered By: Nataly Vaughn on 10-09-2024 Erythrocyte distribution width (RBC) [Ratio] 46.2 fl High 35.1-43.9 [facility] Erythrocyte sedimentation ra teOrdered By: Nataly Vaughn on 10-09-2024 ESR (Bld) [Velocity] 40 mm/h High 0-30 [facility] Glomerular filtration rate ( GFR) estimation/1.73 sq m using serum, plasma, or whole bOrdered By: Nataly Vaughn on 10-09-2024 GFR/1.73 sq M.predicted among non-blacks MDRD (S/P/Bld) [Vol rate/Area] 90 mL/min/{1.73_m2} >60 [facility] Comment on above: mL/min/1.73m2 CKD-EP I Creatinine Equation (2020) Hematocrit Auto (Bld) [Volum e fraction]Ordered By: Nataly Vaughn on 10-09-2024 Hematocrit (Bld) [Volume fraction] 37.6 % 37-47 [facility] Hemoglobin measurementOrdere d By: Nataly Vaughn on 10-09-2024 Hemoglobin (Bld) [Mass/Vol] 11.9 g/dL Low 12.0-15.0 [facility] Immature granulocytes/100 WB C Auto (Bld)Ordered By: Nataly Vaughn on 10-09-2024 Immature granulocytes/100 WBC (Bld) 0.400 % 0.0-0.9 [facility] Comment on above: IG% - Immature Granu locytes (promyelocytes, myelocytes and metamyelocytes) > 1% indicates that a LEFT SHIFT is Present. Ketones Test strip Ql (U)Ord ered By: Nataly Vaughn on 10-09-2024 Ketones Ql (U) Negative Negative [facility] - Chemistry and C hemistry - challengeOrdered By: Nataly Vaughn on 10-09-2024 AST [Catalytic activity/Vol] 67 U/L High <32 [facility] Comment on above: Hemolysis present, R esults could be affected. MCV (mean corpuscular volume ) determinationOrdered By: Nataly Vaughn on 10-09-2024 MCV (RBC) [Entitic vol] 96.2 fL 81-99 [facility] Magnesiumon 10-09-2024 Magnesium [Mass/Vol] 2.0 mg/dL Normal 1.5-2.2 [facility] Comment on above: Performed By: #### L 506.0400, L501.80653, L501.9520 #### [facility] [address] [place] [address], [address] Magnesium measurement (mass/ volume)Ordered By: Nataly Vaughn on 10-09-2024 Magnesium (Unsp spec) [Mass/Vol] 2.0 mg/dL 1.5-2.2 [facility] Mean corpuscular hemoglobin (MCH) determinationOrdered By: Nataly Vaughn on 10-09-2024 MCH (RBC) [Entitic mass] 30.4 pg 27.0-32.0 [facility] Mean corpuscular hemoglobin concentration (MCHC) determinationOrdered By: Nataly Vaughn on 10-09-2024 MCHC (RBC) [Mass/Vol] 31.6 g/dL Low 32-36 [facility] Mean platelet volume determi nationOrdered By: Nataly Vaughn on 10-09-2024 Platelet mean volume (Bld) [Entitic vol] 9.8 fL 6.2-12.0 [facility] Microscopic analysis of urin e for red blood cells (RBC)Ordered By: Nataly Vaughn on 10-09-2024 Microscopic analysis of urine for red blood cells (RBC) 0-5 SEEN /hpf 0-5 [facility] Monocyte percentageOrdered B y: Nataly Vaughn on 10-09-2024 Monocytes/100 WBC (Bld) 7.3 % 0-10 [facility] Mucus LM Ql (Urine sed)Order ed By: Nataly Vaughn on 10-09-2024 Mucus Ql (Urine sed) 0 SEEN /hpf [facility] Neutrophil percentageOrdered By: Nataly Vaughn on 10-09-2024 Neutrophils/100 WBC (Bld) 68.4 % 47-70 [facility] Nitrite Test strip Ql (U)Ord ered By: Nataly Vaughn on 10-09-2024 Nitrite Ql (U) Negative Negative [facility] Nucleated red blood cell per centageOrdered By: Nataly Vaughn on 10-09-2024 Nucleated RBC/100 WBC (Bld) [Ratio] 0 % 0-5 [facility] Platelet countOrdered By: Tania Vaughn on 10-09-2024 Platelets (Bld) [#/Vol] 429 10*3/uL 150-450 [facility] Potassium measurement (mass/ volume)Ordered By: Nataly Vaughn on 10-09-2024 Potassium (Unsp spec) [Mass/Vol] 4.3 mmol/L 3.3-5.1 [facility] Comment on above: Hemolysis present, R esults could be affected. Protein Test strip Ql (U)Ord ered By: Nataly Vaughn on 10-09-2024 Protein Ql (U) Negative Negative [facility] RBC Auto (Bld) [#/Vol]Ordere d By: Nataly Vaughn on 10-09-2024 RBC (Bld) [#/Vol] 3.91 10*6/uL Low 4.2-5.4 [facility] Serum creatinine measurement (mass/volume)Ordered By: Nataly Vaughn on 10-09-2024 Creatinine [Mass/Vol] 0.67 mg/dL Low 0.70-1.20 [facility] Serum globulin measurementOr dered By: Nataly Vaughn on 10-09-2024 Globulin (S) [Mass/Vol] 3.6 g/dL 2.2-4.2 [facility] Serum glucose measurement (m ass/volume)Ordered By: Nataly Vaughn on 10-09-2024 Glucose [Mass/Vol] 92 mg/dL 70-99 [facility] Serum or plasma C reactive p rotein measurement (mass/volume)Ordered By: Nataly Vaughn on 10-09-2024 CRP [Mass/Vol] 5.52 mg/L High 0.0-3.0 [facility] Serum or plasma alanine spann otransferase (ALT) measurementOrdered By: Nataly Vaughn on 10-09-2024 ALT [Catalytic activity/Vol] 82 U/L High <35 [facility] Serum or plasma albumin criss urement (mass/volume)Ordered By: Nataly Vaughn on 10-09-2024 Albumin [Mass/Vol] 3.4 g/dL 3.4-4.8 [facility] Serum or plasma albumin/glob ulin mass ratioOrdered By: Nataly Vaughn on 10-09-2024 Albumin/Globulin [Mass ratio] 0.9 {ratio} 0.9-2.4 [facility] Serum or plasma alkaline irene sphatase measurementOrdered By: Nataly Vaughn on 10-09-2024 ALP [Catalytic activity/Vol] 305 U/L High 35-104 [facility] Serum or plasma calcium criss urement (mass/volume)Ordered By: Nataly Vaughn on 10-09-2024 Calcium [Mass/Vol] 8.6 mg/dL 7.6-11.0 [facility] Serum or plasma urea nitroge n measurement (mass/volume)Ordered By: Ntaaly Vaughn on 10-09-2024 Urea nitrogen [Mass/Vol] 14 mg/dL 4-19 [facility] Sodium levelOrdered By: Pineda Vaughn on 10-09-2024 Sodium [Moles/Vol] 137 mmol/L 133-145 [facility] Squamous epithelial cells de tection in urine sediment by light microscopyOrdered By: Nataly Vaughn on 10-09-2024 Epithelial cells.squamous LM Ql (Urine sed) 0-5 SEEN /hpf 5-10 [facility] TSH DL <= 0.005 mIU/L QnOrde red By: Nataly Vaughn on 10-09-2024 TSH Qn 16.400 uIU/mL High 0.300-4.200 [facility] Thyroid Stim Hormone (TSH)on 10-09-2024 TSH 16.400 uIU/mL High 0.300-4.200 [facility] Comment on above: Performed By: #### L 506.0400, L501.17367, L501.9520 #### [facility] [address] [place], [address] Total proteinOrdered By: Rem us Ungur on 10-09-2024 Protein [Mass/Vol] 7.0 g/dL 5.9-8.4 [facility] Urinalysis, Completeon 10-09 EPI,SQUAMOUS 0-5 SEEN Normal 5-10 [facility] Comment on above: Order Comment: CLEAN CATCH Performed By: #### L 400.0001 #### [facility] [address] [place], [address] RBC 0-5 SEEN Normal 0-5 [facility] Comment on above: Order Comment: CLEAN CATCH Performed By: #### L 400.0001 #### [facility] [address] [place], [address] WBC 0-5 SEEN Normal 0-5 [facility] Comment on above: Order Comment: CLEAN CATCH Performed By: #### L 400.0001 #### [facility] [address] [place], [address] BACTERIA 0 SEEN Normal None Seen [facility] Comment on above: Order Comment: CLEAN CATCH Performed By: #### L 400.0001 #### [facility] [address] [place], [address] Mucus Ql (Urine sed) 0 SEEN Normal [facility] Comment on above: Order Comment: CLEAN CATCH Performed By: #### L 400.0001 #### [facility] [address] [place], [address] Urine clarityOrdered By: Rem us Ungur on 10-09-2024 Clarity (U) Clear Clear [facility] Urine color determinationOrd ered By: Fabyus Ungur on 10-09-2024 Color (U) Straw Yellow [facility] Urine glucose detectionOrder ed By: Nataly Vaughn on 10-09-2024 Glucose Ql (U) Normal mg/dl Normal [facility] Urine leukocyte esterase det ection by dipstickOrdered By: Nataly Vaughn on 10-09-2024 Leukocyte esterase Test strip Ql (U) Negative Negative [facility] Urine pHOrdered By: Nataly Goyal gur on 10-09-2024 pH (U) 8.0 [pH] 5.0 - 8.0 [facility] Urine sediment bacteria coun t by microscopy (number/high power field)Ordered By: Nataly Vaughn on 10-09-2024 Bacteria LM.HPF (Urine sed) [#/Area] 0 /[HPF] None Seen [facility] Urine specific gravity measu rementOrdered By: Nataly Vaughn on 10-09-2024 Specific gravity (U) [Rel density] 1.010 1.002-1.030 [facility] Urine urobilinogen measureme ntOrdered By: Nataly Vaughn on 10-09-2024 Urobilinogen Ql (U) Normal mg/dl Normal [facility] White blood cell (WBC) count Ordered By: Nataly Vaughn on 10-09-2024 WBC (Bld) [#/Vol] 7.2 10*3/uL 4.4-11.0 [facility] White blood cell countOrdere d By: Nataly Vaughn on 10-09-2024 White blood cell count 0-5 SEEN /hpf 0-5 [facility] ACETYLCHOLINE REC BLOCKING A Bon 10-08-2024 ACETYLCHOLINE BLOCKING, QUAL Negative Normal Negative [facility] Comment on above: Order Comment: Speci men Type: BLOOD SPECIMEN Ordering Facility: [facility] Address: [address] [place] [address] Result Comment: Anti -acetylcholine receptor blocking antibody test is used as an aid in diagnosis of myasthenia gravis. A negative result cannot exclude myasthenia gravis. Clinical correlation is required. Performed By: #### 3 016-3, 82356-7 #### [facility] CLIA [id number] [address] [place], [place] [address] [address] [place] Acetylcholine receptor blocking Ab/Acetylcholine Ab.total (S) [Molar fraction] <13 Normal <21 [facility] Comment on above: Order Comment: Speci men Type: BLOOD SPECIMEN Ordering Facility: [facility] Address: [address] [place] [address] Performed By: #### 3 -3, #### [facility] CLIA [id number] [address] [place] [address] [place] CBC W Auto Differential pane l (Bld)on 10-08-2024 Basophils (Bld) [#/Vol] 0.07 10*3/uL Normal <0.11 [facility] Comment on above: Order Comment: Speci men Type: BLOOD SPECIMEN Ordering Facility: [facility] Address: [address] [place] [address] Performed By: #### 3 016-3, #### [facility] CLIA [id number] [address] [place] [address] [place] Basophils/100 WBC (Bld) 1.0 % Normal [facility] Comment on above: Order Comment: Speci men Type: BLOOD SPECIMEN Ordering Facility: [facility] Address: [address] [place] [address] Performed By: #### 3 -3, #### [facility] CLIA [id number] [address] [place] [address] [place] Differential cell count method Nom (Bld) Auto Normal [facility] Comment on above: Order Comment: Speci men Type: BLOOD SPECIMEN Ordering Facility: [facility] Address: [address] [place] [address] Performed By: #### 3 -3, #### [facility] CLIA [id number] [address] [place] [address] [place] Eosinophils (Bld) [#/Vol] 0.28 10*3/uL Normal <0.46 [facility] Comment on above: Order Comment: Speci men Type: BLOOD SPECIMEN Ordering Facility: [facility] Address: [address] [place] [address] Performed By: #### 3 -3, 31301-7 #### [facility] CLIA [id number] [address] [place] [address] [place] Eosinophils/100 WBC (Bld) 4.1 % Normal [facility] Comment on above: Order Comment: Speci men Type: BLOOD SPECIMEN Ordering Facility: [facility] Address: [address] [place] [address] Performed By: #### 3 3, #### [facility] CLIA [id number] [address] [place] [address] [place] Erythrocyte distribution width (RBC) [Ratio] 13.2 % Normal 11.5-15.0 [facility] Comment on above: Order Comment: Speci men Type: BLOOD SPECIMEN Ordering Facility: [facility] Address: [address] [place] [address] Performed By: #### 3 3, #### [facility] CLIA [id number] [address] [place] [address] [place] Hematocrit (Bld) [Volume fraction] 37.5 % Normal 36.0-46.0 [facility] Comment on above: Order Comment: Speci men Type: BLOOD SPECIMEN Ordering Facility: [facility] Address: [address] [place] [address] Performed By: #### 3 3, #### [facility] CLIA [id number] [address] [place] [address] [place] Hemoglobin (Bld) [Mass/Vol] 11.9 g/dL Normal 11.5-15.5 [facility] Comment on above: Order Comment: Speci men Type: BLOOD SPECIMEN Ordering Facility: [facility] Address: [address] [place] [address] Performed By: #### 3 016-3, #### [facility] CLIA [id number] [address] [place] [address] [place] Immature granulocytes (Bld) [#/Vol] 0.03 10*3/uL Normal <0.10 [facility] Comment on above: Order Comment: Speci men Type: BLOOD SPECIMEN Ordering Facility: [facility] Address: [address] [place] [address] Performed By: #### 3 , #### [facility] CLIA [id number] [address] [place] [address] [place] Immature granulocytes/100 WBC (Bld) 0.4 % Normal [facility] Comment on above: Order Comment: Speci men Type: BLOOD SPECIMEN Ordering Facility: [facility] Address: [address] [place] [address] Performed By: #### 3 , #### [facility] CLIA [id number] [address] [place] [address] [place] Lymphocytes (Bld) [#/Vol] 1.26 10*3/uL Normal 1.00-4.00 [facility] Comment on above: Order Comment: Speci men Type: BLOOD SPECIMEN Ordering Facility: [facility] Address: [address] [place] [address] Performed By: #### 3 , #### [facility] CLIA [id number] [address] [place] [address] [place] Lymphocytes/100 WBC (Bld) 18.6 % Normal [facility] Comment on above: Order Comment: Speci men Type: BLOOD SPECIMEN Ordering Facility: [facility] Address: [address] [place] [address] Performed By: #### 3 016-3, #### [facility] CLIA [id number] [address] [place] [address] [place] MCH (RBC) [Entitic mass] 30.2 pg Normal 26.0-34.0 [facility] Comment on above: Order Comment: Speci men Type: BLOOD SPECIMEN Ordering Facility: [facility] Address: [address] [place] [address] Performed By: #### 3 016-3, 30855-6 #### [facility] CLIA [id number] [address] [place] [address] [place] MCHC (RBC) [Mass/Vol] 31.7 g/dL Normal 30.5-36.0 [facility] Comment on above: Order Comment: Speci men Type: BLOOD SPECIMEN Ordering Facility: [facility] Address: [address] [place] [address] Performed By: #### 3 016-3, 23910-0 #### [facility] CLIA [id number] [address] [place] [address] [place] MCV (RBC) [Entitic vol] 95.2 fL Normal 80.0-100.0 [facility] Comment on above: Order Comment: Speci men Type: BLOOD SPECIMEN Ordering Facility: [facility] Address: [address] [place] [address] Performed By: #### 3 016-3, #### [facility] CLIA [id number] [address] [place] [address] [place] Monocytes (Bld) [#/Vol] 0.40 10*3/uL Normal <0.87 [facility] Comment on above: Order Comment: Speci men Type: BLOOD SPECIMEN Ordering Facility: [facility] Address: [address] [place] [address] Performed By: #### 3 016-3, #### [facility] CLIA [id number] [address] [place] [address] [place] Monocytes/100 WBC (Bld) 5.9 % Normal C [facility] Comment on above: Order Comment: Speci men Type: BLOOD SPECIMEN Ordering Facility: [facility] Address: [address] [place] [address] Performed By: #### 3 016-3, 09917-9 #### [facility] CLIA [id number] [address] [place] [address] [place] Neutrophils (Bld) [#/Vol] 4.73 10*3/uL Normal 1.45-7.50 [facility] Comment on above: Order Comment: Speci men Type: BLOOD SPECIMEN Ordering Facility: [facility] Address: [address] [place] [address] Performed By: #### 3 016-3, 05113-6 #### [facility] CLIA [id number] [address] [place] [address] [place] Neutrophils/100 WBC (Bld) 70.0 % Normal [facility] Comment on above: Order Comment: Speci men Type: BLOOD SPECIMEN Ordering Facility: [facility] Address: [address] [place] [address] Performed By: #### 3 016-3, 59538-9 #### [facility] CLIA [id number] [address] [place] [address] [place] Nucleated RBC (Bld) [#/Vol] 10*3/uL Normal <0.01 [facility] Comment on above: Order Comment: Speci men Type: BLOOD SPECIMEN Ordering Facility: [facility] Address: [address] [place] [address] Performed By: #### 3 016-3, 69418-2 #### [facility] CLIA [id number] [address] [place] [address] [place] Nucleated RBC/100 WBC (Bld) [Ratio] 0.0 /100 WBC Normal [facility] Comment on above: Order Comment: Speci men Type: BLOOD SPECIMEN Ordering Facility: [facility] Address: [address] [place] [address] Performed By: #### 3 016-3, 78083-4 #### [facility] CLIA [id number] [address] [place] [address] [place] Platelet mean volume (Bld) [Entitic vol] 10.1 fL Normal 9.0-12.7 [facility] Comment on above: Order Comment: Speci men Type: BLOOD SPECIMEN Ordering Facility: [facility] Address: [address] [place] [address] Performed By: #### 3 -3, 94294-8 #### [facility] CLIA [id number] [address] [place] [address] [place] Platelets (Bld) [#/Vol] 452 10*3/uL High 150-400 [facility] Comment on above: Order Comment: Speci men Type: BLOOD SPECIMEN Ordering Facility: [facility] Address: [address] [place] [address] Performed By: #### 3 3, 31622-9 #### [facility] CLIA [id number] [address] [place] [address] [place] RBC (Bld) [#/Vol] 3.94 10*6/uL Normal 3.90-5.20 [facility] Comment on above: Order Comment: Speci men Type: BLOOD SPECIMEN Ordering Facility: [facility] Address: [address] [place] [address] Performed By: #### 3 -3, 21814-4 #### [facility] CLIA [id number] [address] [place] [address] [place] WBC (Bld) [#/Vol] 6.77 10*3/uL Normal 3.70-11.00 [facility] Comment on above: Order Comment: Speci men Type: BLOOD SPECIMEN Ordering Facility: [facility] Address: [address] [place] [address] Performed By: #### 3 016-3, 97030-2 #### [facility] CLIA [id number] [address] [place] [address] [place] CRP SerPl-mCncon 10-08-2024 CRP [Mass/Vol] 0.6 mg/dL Normal <0.9 [facility] Comment on above: Order Comment: Speci men Type: BLOOD SPECIMEN Ordering Facility: [facility] Address: [address] [place] [address] Performed By: #### 3 016-3, 71477-3 #### [facility] CLIA [id number] [address] [place] [address] [place] ESR Westergren method (Bld) [Velocity]on 10-08-2024 ESR (Bld) [Velocity] 51 mm/h High 0-20 [facility] Comment on above: Order Comment: Speci men Type: BLOOD SPECIMEN Ordering Facility: [facility] Address: [address] [place] [address] Performed By: #### 3 016-3, 92831-0 #### [facility] CLIA [id number] [address] [place] [address] [place] Tre 10-03-2024 CNPN Telephone (FAMWS) MICAELA COCHRAN ([id number]) 1945 F Date Time Provider Department 10/03/24 [facility] During your visit today, we recorded the following information about you: Duke Marroquin, RN 10/03/2024 10:26 AM Signed reports pt was seen at [facility] ER on 09/23/24 for dehydration/weakness. scheduled ER f/u appt for 10/12/24 (1st available in pcp office). Reports pt is feeling better. reports ER doctor told them pt's thyroid number was low, and advised them to call pcp to adjust levothyroxine 100 mcg daily. Please advise . Vera Pompa MD 10/11/2024 2:29 PM Signed Will review at appt Vera Pompa MD Allergies As of Date: 10/03/2024 Noted Allergy Reaction ACETAMINOPHEN-CODEINE 04/07/2023 16 - Unknown BIAXIN (CLARITHROMYCIN) 03/16/2005 16 - Unknown Comments: Doesn't remember, was a long time ago CODEINE 01/05/2007 Comments: unknown-long time ago NAPROXEN 11/23/2007 2 - Rash Comments: Generalized, nonpruritic RELAFEN (NABUMETONE) 03/16/2005 16 - Unknown Comments: Doesn't remember Date Reviewed: 09/03/2024 Reviewed by: Nettie Brandt MA - Fully Assessed Reason for Visit: [facility] ER f/u [Other] Prescriptions as of 10/11/2024 - omeprazole (PRILOSEC) 20 mg capsule Take [...] once daily. Problem List As Of Date 10/03/2024 Noted Resolved Major depressive disorder, recurrent episode [...] Gait instability [R26.81] 06/21/2024 Encounter Status:Closed by VERA POMPA on 10/11/24 Normal [facility] Brain W/WO Contraston 2024 Brain W/WO Contrast [facility] Imaging Services [address] [place] [address] [id number] Brain W/WO Contrast MR#: [id number] Acct: [id number] Name: MICAELA COCHRAN Rep #: [id number] : 1945 F 78 From: Nathanael Herring MD PCP: Dr. Vera Pompa MD Status: REG CLI Study: Brain W/WO Contrast Date of Exam: 09/27/24 Exam# [id number] Ordering Dr: Edward Humphreys MD PROCEDURE: BRAIN W/WO CONTRAST 09/27/2024 REASON FOR EXAM: DIPLOPIA; blurred vision, TECHNIQUE: Multiplanar and multisequential MRI of the brain/orbits was performed without and with IV gadolinium based contrast. Dedicated thin slice small siyeu-xm-jmti sequences through the orbits were performed pre and postcontrast. CONTRAST: Clariscan VOLUME: 13 mL COMPARISON: CT head 05/25/2023. FINDINGS: No regions of abnormal restricted diffusion to indicate recent infarct. Small nonenhancing densely calcified extra-axial nodular focus at the inner table of the right frontal convexity measuring roughly 10 mm, either a small heavily calcified meningioma versus inner table calvarial osteoma, benign. No mass-effect on the underlying right frontal lobe. No additional intracranial mass lesion, or areas of pathologic enhancement. Mild age-appropriate generalized brain parenchymal volume loss, and mild scattered foci of chronic small-vessel ischemic-gliotic change throughout the supratentorial white matter. No findings suggestive of a demyelinating process within the brain. Normal ventricular caliber. Mildly prominent benign perivascular spaces within the bilateral basal ganglia noted. Orbital contents appear normal and symmetric bilaterally. No orbital mass lesion, pathologic enhancement, or infiltration of the retrobulbar fat planes. No abnormal signal or pathologic enhancement involving the optic nerves or chiasm appreciated. The pituitary gland and parasellar structures are normal in appearance. Midline infundibulum. Preserved major vascular flow voids. Well-aerated paranasal sinuses and mastoid air cells. MRI/Brain W/WO Contrast IMPRESSION: No acute intracranial abnormality or specific cause for patient's visual symptoms. No mass lesion or pathologic enhancement. No evidence for demyelinating disease/optic neuritis. Reading Location: [id number] CC: Dr. Vera Pompa MD; Dr. Edward Humphreys MD Inspector Cold Working: Signed Normal [facility] Magnetic resonance imaging r eportOrdered By: Nathanael Herring on 09-27-2024 Study report [facility] Imaging Services [address], [place] [id number] Brain W/WO Contrast MR#: [id number] Acct: [id number] Name: MICAELA COCHRAN Rep #: [id number] : 1945 F 78 From: Bobby Herring MD PCP: Dr. Vera Pompa MD Status: RE G CLI Study:Brain W/WO Contrast Date of Exam: 09/27/24 Exam# [id number] Ordering Dr: Edward Humphreys MD PROCEDURE: BRAIN W/WO CONTRAST 09/27/2024 REASON FOR EXAM: DIPLOPIA; blurred vision, TECHNIQUE: Multiplanar and multisequential MRI of the brain/orbits was performed without and with IV gadolinium based contrast. Dedicated thin slice small tqaui-vr-evrd sequences through the orbits were performed pre and postcontrast. CONTRAST: Clariscan VOLUME: 13 mL COMPARISON: CT head 05/25/2023. FINDINGS: No regions of abnormal restricted diffusion to indicate recent infarct. Small nonenhancing densely calcified extra-axial nodular focus at the inner table of the right frontal convexity measuring roughly 10 mm, either a small heavily calcified meningioma versus inner table calvarial osteoma, benign. No mass-effect on the underlying right frontal lobe. No additional intracranial mass lesion, or areas of pathologic enhancement. Mild age-appropriate generalized brain parenchymal volume loss, and mild scattered foci of chronic small-vessel ischemic-gliotic change throughout the supratentorial white matter. No findings suggestive of a demyelinating process within the brain. Normal ventricular caliber. Mildly prominent benign perivascular spaces within the bilateral basal ganglia noted. Orbital contents appear normal and symmetric bilaterally. No orbital mass lesion, pathologic enhancement, or infiltration of the retrobulbar fat planes. No abnormal signal or pathologic enhancement involving the optic nerves or chiasm appreciated. The pituitary gland and parasellar structures are normal in appearance. Midline infundibulum. Preserved major vascular flow voids. Well-aerated paranasal sinuses and mastoidair cells. MRI/Brain W/WO Contrast IMPRESSION: No acute intracranial abnormality or specific cause for patient's visual symptoms. No mass lesion or pathologic enhancement. No evidence for demyelinating disease/optic neuritis. Reading Location: [id number] CC: Dr. Vera Pompa MD; Dr. Edward Humphreys MD ~ Inspector Cold Working: Signed [facility] 12 Lead EKGon 09-23-2024 12 Lead EKG [facility] Cardiovascular Services [address] [place] [address] 12 Lead EKG 09/23/24 1100 MR#: [id number] Acct: [id number] Name: MICAELA COCHRAN Rep #: [id number] : 1945 78 From: Renaldo Ruiz MD Attending Dr: Status: DEP ER Ordering Dr: Arcenio Trammell DO Date: 09/23/24 Location: ED Sex: F C Admitted: Test Reason : WEAKNESS Blood Pressure : */* mmHG Vent. Rate : 81 BPM Atrial Rate : 81 BPM P-R Int : 136 ms QRS Dur : 72 ms QT Int : 418 ms P-R-T Axes : 44 1 59 degrees QTcB Int : 485 ms Normal sinus rhythm QTcB >= 480 msec Abnormal ECG Confirmed by Renaldo Ruiz ([id number]), health editor ANA MARIA SOTO ([id number]) on 09/24/2024 1:10:24 PM Referred By: Confirmed By: Renaldo Ruiz 09/24/24 1310 Date Renaldo Ruiz MD CC: Dr. Vera Pompa MD; Dr. Arcenio Trammell DO Signed Normal [facility] Anion gap in Serum or Plasma Ordered By: Arcenio Trammell on 09-23-2024 Anion gap [Moles/Vol] 17 mmol/L High 5-15 [facility] BUN/creatinine ratioOrdered By: Arcenio Trammell on 09-23-2024 Urea nitrogen/Creatinine [Mass ratio] 21.4 mg/mg High 10-20 [facility] Bilirubin Test strip Ql (U)O rdered By: Arcenio Trammell on 09-23-2024 Bilirubin Ql (U) Negative Negative [facility] Bilirubin, totalOrdered By: Arcenio Trammell on 09-23-2024 Bilirubin [Mass/Vol] 0.75 mg/dL 0.00-1.30 [facility] CBC-Complete Blood Cnt No Radha meo 09-23-2024 Erythrocyte distribution width (RBC) [Ratio] 12.4 % Normal 11.6-14.6 [facility] Comment on above: Performed By: #### L 100.0500, L501.2450, L500.4050 #### [facility] [address] [place], [address] Hematocrit (Bld) [Volume fraction] 38.3 % Normal 37-47 [facility] Comment on above: Performed By: #### L 100.0500, L501.2450, L500.4050 #### [facility] [address] [place], [address] Hemoglobin (Bld) [Mass/Vol] 12.8 g/dL Normal 12.0-15.0 [facility] Comment on above: Performed By: #### L 100.0500, L501.2450, L500.4050 #### [facility] [address] [place], [address] MCH (RBC) [Entitic mass] 30.6 pg Normal 27.0-32.0 [facility] Comment on above: Performed By: #### L 100.0500, L501.2450, L500.4050 #### [facility] [address] [place], [address] MCHC (RBC) [Mass/Vol] 33.4 g/dL Normal 32-36 [facility] Comment on above: Performed By: #### L 100.0500, L501.2450, L500.4050 #### [facility] [address] [place], [address] MCV (RBC) [Entitic vol] 91.6 fL Normal 81-99 [facility] Comment on above: Performed By: #### L 100.0500, L501.2450, L500.4050 #### [facility] [address] [place] [facility], [address] Platelet mean volume (Bld) [Entitic vol] 9.4 fL Normal 6.2-12.0 [facility] Comment on above: Performed By: #### L 100.0500, L501.2450, L500.4050 #### [facility] [address] [place], [address] Platelets (Bld) [#/Vol] 442 10*3/uL Normal 150-450 [facility] Comment on above: Performed By: #### L 100.0500, L501.2450, L500.4050 #### [facility] [address] [place], [address] RBC (Bld) [#/Vol] 4.18 10*6/uL Low 4.2-5.4 [facility] Comment on above: Performed By: #### L 100.0500, L501.2450, L500.4050 #### [facility] [address] [place], [address] RDW SD 41.5 fl Normal 35.1-43.9 [facility] Comment on above: Performed By: #### L 100.0500, L501.2450, L500.4050 #### [facility] [address] [place], [address] WBC (Bld) [#/Vol] 9.4 10*3/uL Normal 4.4-11.0 [facility] Comment on above: Performed By: #### L 100.0500, L501.2450, L500.4050 #### [facility] [address] [place], [address] Calcium oxalate crystals det ection in urine sediment by light microscopyOrdered By: Arcenio Trammell on 09-23-2024 Calcium oxalate crystals LM Ql (Urine sed) 1+ /hpf [facility] Carbon dioxide, total [Moles /volume] in Central venous bloodOrdered By: Arcenio Trammell on 09-23-2024 CO2 [Moles/Vol] 21.8 mmol/L 21.0-32.0 [facility] Chest 1 View (Portable)on Chest 1 View (Portable) [facility] Imaging Services [address] [place] [address] Chest 1 View (Portable) MR#: [id number] Acct: [id number] Name: MICAELA COCHRAN Rep #: [id number] : 1945 F 78 From: Yanci Jo nd, MD PCP: Dr. Vera Pompa MD Status: PRE ER Study: Chest 1 View (Portable) Date of Exam: 09/23/24 Exam# [id number] Ordering Dr: Arcenio Trammell DO PROCEDURE: CHEST 1 VIEW (PORTABLE) 09/23/2024 REASON FOR EXAM: FATIGUE TECHNIQUE: Frontal view of the chest. COMPARISON: Chest radiograph 05/11/2024. FINDINGS: Hardware: Prior cement augmentation of the lower thoracic spine. Heart: The heart size is normal. Lungs: No focal consolidation, pleural effusion or pneumothorax. Bones: Degenerative changes are identified within the thoracic spine. Chronic bilateral rib fracture deformities. RAD/Chest 1 View (Portable) IMPRESSION: No Acute Findings. Reading Location: [facility] CC: Dr. Vera Pompa MD; Dr. Arcenio Trammell DO Inspector Cold Working: Signed Normal [facility] Chloride assayOrdered By: Alison Trammell on 09-23-2024 Chloride [Moles/Vol] 99 mmol/L 98-108 [facility] Comprehensive Metabolic Prof ilon 09-23-2024 Albumin [Mass/Vol] 3.9 g/dL Normal 3.4-4.8 [facility] Comment on above: Performed By: #### L 100.0500, L501.2450, L500.4050 #### [facility] [address] [place], [address] Albumin/Globulin [Mass ratio] 1.0 {ratio} Normal 0.9-2.4 [facility] Comment on above: Performed By: #### L 100.0500, L501.2450, L500.4050 #### [facility] [address] [place], [address] ALK PHOS 300 U/L High 35-104 [facility] Comment on above: Performed By: #### L 100.0500, L501.2450, L500.4050 #### [facility] [address] [place], [address] ALT [Catalytic activity/Vol] 63 U/L High <=34 [facility] Comment on above: Performed By: #### L 100.0500, L501.2450, L500.4050 #### [facility] [address] [place], [address] AST [Catalytic activity/Vol] 45 U/L High <=31 [facility] Comment on above: Performed By: #### L 100.0500, L501.2450, L500.4050 #### [facility] [address] [place], [address] Bilirubin [Mass/Vol] 0.75 mg/dL Normal 0.00-1.30 [facility] Comment on above: Performed By: #### L 100.0500, L501.2450, L500.4050 #### [facility] [address] [place], [address] BUN/CRE 21.4 RATIO High 10-20 [facility] Comment on above: Performed By: #### L 100.0500, L501.2450, L500.4050 #### [facility] [address] [place], [address] Calcium [Mass/Vol] 9.8 mg/dL Normal 7.6-11.0 [facility] Comment on above: Performed By: #### L 100.0500, L501.2450, L500.4050 #### [facility] [address] [place], [address] Chloride [Moles/Vol] 99 mmol/L Normal 98-108 [facility] Comment on above: Performed By: #### L 100.0500, L501.2450, L500.4050 #### [facility] [address] [place], [address] CO2 [Moles/Vol] 21.8 mmol/L Normal 21.0-32.0 [facility] Comment on above: Performed By: #### L 100.0500, L501.2450, L500.4050 #### [facility] [address] [place], [address] Creatinine [Mass/Vol] 0.66 mg/dL Low 0.70-1.20 [facility] Comment on above: Performed By: #### L 100.0500, L501.2450, L500.4050 #### [facility] [address] [place], [address] GAP 17 High 5-15 [facility] Comment on above: Performed By: #### L 100.0500, L501.2450, L500.4050 #### [facility] [address] [place], [address] GFR/1.73 sq M.predicted among non-blacks MDRD (S/P/Bld) [Vol rate/Area] 91 mL/min/{1.73_m2} Normal >60 [facility] Comment on above: Result Comment: mL/m in/1.73m2 CKD-EPI Creatinine Equation (2020) Performed By: #### L 100.0500, L501.2450, L500.4050 #### [facility] [address] [place], [address] Globulin (S) [Mass/Vol] 4.0 g/dL Normal 2.2-4.2 [facility] Comment on above: Performed By: #### L 100.0500, L501.2450, L500.4050 #### [facility] [address] [place], [address] Glucose [Mass/Vol] 104 mg/dL High 70-99 [facility] Comment on above: Performed By: #### L 100.0500, L501.2450, L500.4050 #### [facility] [address] [place], [address] Potassium [Moles/Vol] 3.7 mmol/L Normal 3.3-5.1 [facility] Comment on above: Performed By: #### L 100.0500, L501.2450, L500.4050 #### [facility] [address] [place], [address] Sodium [Moles/Vol] 138 mmol/L Normal 133-145 [facility] Comment on above: Performed By: #### L 100.0500, L501.2450, L500.4050 #### [facility] [address] [place], [address] T PROT 7.9 g/dL Normal 5.9-8.4 [facility] Comment on above: Performed By: #### L 100.0500, L501.2450, L500.4050 #### [facility] [address] [place], [address] Urea nitrogen [Mass/Vol] 14 mg/dL Normal 4-19 [facility] Comment on above: Performed By: #### L 100.0500, L501.2450, L500.4050 #### [facility] [address] [place], [address] Emergency Department Summary on 09-23-2024 Emergency Department Summary [facility] Medical Records Department [address] [place] [address] Emergency Department Summary 09/23/24 MR#: [id number] Acct: [id number] Name: MICAELA COCHRAN Rep #: [id number] : 1945 78 From: Arcenio Trammell DO PCP: Dr. Vera Pompa MD Status:REG ER Location: ED HPI History of Present Illness Chief Complaint: Weakness PFSH [facility] Medical History Hypothyroid Non-smoker Sleep apnea Hypertension [...] Q8 PRN pain 08/21/24 0 08/21/24 History ondansetron 4 mg disintegrating 4 mg PO Q8H PRN PRN Nausea #10 tab s 09/23/24 Unknown Rx tablet Allergy/AdvReac Type Severity Reaction Status Date / Time codeine Allergy Unknown Verified 09/23/24 10:25 codeine phosphate (From AdvReac Unknown Verified 09/23/24 10:25 Tylenol-Codeine #3) nabumetone (From Relafen) AdvReac Unknown Verified 09/23/24 10:25 naproxen AdvReac Unknown Verified 09/23/24 10:25 Family History Mother Cancer Father Cancer Surgical History S/P ORIF (open reduction internal fixation) fracture History of section H/O ovarian cystectomy History of total right hip replacement S/P kyphoplasty S/P ORIF (open reduction internal fixation) fracture Social History household members: spouse Smoking Status: Never smoker alcohol intake: never substance use type: does not use EXAM Physical Exam Const Vital Signs: 09/23/24 10:24 09/23/24 10:25 09/23/24 12:23 Temperature 98.3 F Temperature Source Oral Pulse Rate 88 78 Respiratory Rate 14 15 Respiratory Effort Normal Respiratory Pattern Normal Blood Pressure 153/91 H 166/94 H Blood Pressure Mean 111 118 Pulse Ox 96 98 Oxygen Delivery Method Room Air Room Air 09/23/24 14:00 Temperature Temperature Source Pulse Rate 74 Respiratory Rate 16 Respiratory Effort Respiratory Pattern Blood Pressure 181/91 H Blood Pressure Mean 121 Pulse Ox 93 Oxygen Delivery Method Room Air MDM MDM MDM Narrative Medical decision making narrative: HISTORY OF PRESENT ILLNESS: Chief complaint: Fatigue 78-year-old female presents with feeling rundown. She notes this has been going on for 3 days. She states she had a fall 10 days ago and injured her right knee and right hip. States she is able to ambulate although difficulty secondary diffuse weakness. notes decreased p.o. intake and she has been feeling more fatigued the last 3 days. Denies any head trauma or loss of conscious during initial fall they both deny any new headaches, chest pain, shortness of breath, palpitations, cough, fever, chills. Denies any abdominal pain, vomiting, diarrhea, nausea. Denies difficulty urination, urgency, frequency. Denies paleness of skin. Denies any new falls. REVIEW OF SYSTEMS: Pertinent positives: Fatigue Pertinent negatives: As per HPI PHYSICAL EXAM: Nursing triage notes reviewed, Vital signs reviewed Constitutional: please see mdm HENT: MMM Eyes: Pupils equal round and reactive to light, Extraocular muscles intact Neck: No stridor, no JVD, full neck ROM Lungs: Clear to auscultation, No wheezing or rales. No increased work of breathing, no conversational dyspnea, no accessory muscle use, no nasal flaring. No respiratory distress noted Heart: Regular rate and rhythm, No murmurs, No rubs and No gallops, 2+ distal pulses (radial, femoral (more content not included)... Normal [facility] Erythrocyte distribution wid th ratioOrdered By: Arcenio Trammell on 09-23-2024 Erythrocyte distribution width (RBC) [Ratio] 12.4 % 11.6-14.6 [facility] Erythrocyte distribution wid th standard deviationOrdered By: Arcenio Trammell on 09-23-2024 Erythrocyte distribution width (RBC) [Ratio] 41.5 fl 35.1-43.9 [facility] Free T3on 09-23-2024 Free T3 [Mass/Vol] 1.5 pg/mL Low 2.18-3.98 [facility] Comment on above: Performed By: #### L 506.0400, L501.08776, L501.9520 #### [facility] [place], [address] Free [id number] By: Arcenio giron on 09-23-2024 Free T3 [Mass/Vol] 1.5 pg/mL Low 2.18-3.98 [facility] Glomerular filtration rate ( GFR) estimation/1.73 sq m using serum, plasma, or whole bOrdered By: Arcenio Trammell on 09-23-2024 GFR/1.73 sq M.predicted among non-blacks MDRD (S/P/Bld) [Vol rate/Area] 91 mL/min/{1.73_m2} >60 [facility] Comment on above: mL/min/1.73m2 CKD-EP I Creatinine Equation (2020) Hematocrit Auto (Bld) [Volum e fraction]Ordered By: Arcenio Trammell on 09-23-2024 Hematocrit (Bld) [Volume fraction] 38.3 % 37-47 [facility] Hemoglobin measurementOrdere d By: Arcenio Trammell on 09-23-2024 Hemoglobin (Bld) [Mass/Vol] 12.8 g/dL 12.0-15.0 [facility] Influenza virus A and B and SARS-CoV-2 (COVID-19) and Respiratory syncytial virus RNAOrdered By: Arcenio Trammell on 09-23-2024 SARS-CoV-2 (COVID-19) RNA LAVERNE+probe Ql (Unsp spec) [facility] Ketones Test strip Ql (U)Ord ered By: Arcenio Trammell on 09-23-2024 Ketones Ql (U) 15 mg/dl High Negative [facility] L501.4021on 09-23-2024 Trop T High Sen 10 ng/L Normal <=14 [facility] Comment on above: Performed By: #### L 501.4021 #### [facility] [address] [place], [place], [id number] Laboratory - Chemistry and C hemistry - challengeOrdered By: Arcenio Trammell on 09-23-2024 AST [Catalytic activity/Vol] 45 U/L High <32 [facility] Lipaseon 09-23-2024 Lipase [Catalytic activity/Vol] 23 U/L Normal 13-75 [facility] Comment on above: Result Comment: Rose tapia note: LIPASE revised reference range effective 22. New Lipase methodology. Expected to produce lower values than the previous assay method. NEW Reference Range: 13 - 75 U/L Performed By: #### L 100.0500, L501.2450, L500.4050 ####[facility] [address] [place], [place], [id number] Lipase measurementOrdered By : Arcenio Trammell on 09-23-2024 Lipase [Catalytic activity/Vol] 23 U/L 13-75 [facility] Comment on above: Please note:LIPASE r evised reference range effective 22. New Lipase methodology. Expected to produce lower values than the previous assay method. NEW Reference Range: 13 - 75 U/L M100.678on 09-23-2024 M100.678 Pending SARS-CoV-2 (COVID 19) Negative INFLUENZA A Negative INFLUENZA B Negative RSV PCR Negative Normal [facility] Comment on above: Performed By: #### L 400.0001 #### [facility] [address] [place], [address] MCV (mean corpuscular volume ) determinationOrdered By: Arcenio Trammell on 09-23-2024 MCV (RBC) [Entitic vol] 91.6 fL 81-99 [facility] Mean corpuscular hemoglobin (MCH) determinationOrdered By: Arcenio Trammell on 09-23-2024 MCH (RBC) [Entitic mass] 30.6 pg 27.0-32.0 [facility] Mean corpuscular hemoglobin concentration (MCHC) determinationOrdered By: Arcenio Trammell on 09-23-2024 MCHC (RBC) [Mass/Vol] 33.4 g/dL 32-36 [facility] Mean platelet volume determi nationOrdered By: Arcenio Trammell on 09-23-2024 Platelet mean volume (Bld) [Entitic vol] 9.4 fL 6.2-12.0 [facility] Microscopic analysis of urin e for red blood cells (RBC)Ordered By: Arcenio Trammell on 09-23-2024 Microscopic analysis of urine for red blood cells (RBC) 0-5 SEEN /hpf 0-5 [facility] Mucus LM Ql (Urine sed)Order ed By: Arcenio Trammell on 09-23-2024 Mucus Ql (Urine sed) 2+ /hpf [facility] Nitrite Test strip Ql (U)Ord ered By: Arcenio Trammell on 09-23-2024 Nitrite Ql (U) Negative Negative [facility] Platelet countOrdered By: Alison Trammell on 09-23-2024 Platelets (Bld) [#/Vol] 442 10*3/uL 150-450 [facility] Potassium measurement (mass/ volume)Ordered By: Arcenio Trammell on 09-23-2024 Potassium (Unsp spec) [Mass/Vol] 3.7 mmol/L 3.3-5.1 [facility] [facility] Protein Test strip Ql (U)Ord ered By: Arcenio Trammell on 09-23-2024 Protein Ql (U) 30 mg/dl High Negative [facility] RBC Auto (Bld) [#/Vol]Ordere d By: Arcenio Trammell on 09-23-2024 RBC (Bld) [#/Vol] 4.18 10*6/uL Low 4.2-5.4 [facility] Serum creatinine measurement (mass/volume)Ordered By: Arcenio Trammell on 09-23-2024 Creatinine [Mass/Vol] 0.66 mg/dL Low 0.70-1.20 [facility] Serum globulin measurementOr dered By: Arcenio Trammell on 09-23-2024 Globulin (S) [Mass/Vol] 4.0 g/dL 2.2-4.2 [facility] Serum glucose measurement (m ass/volume)Ordered By: Arcenio Trammell on 09-23-2024 Glucose [Mass/Vol] 104 mg/dL High 70-99 [facility] Serum or plasma alanine spann otransferase (ALT) measurementOrdered By: Arcenio Trammell on 09-23-2024 ALT [Catalytic activity/Vol] 63 U/L High <35 [facility] Serum or plasma albumin criss urement (mass/volume)Ordered By: Arcenio Trammell on 09-23-2024 Albumin [Mass/Vol] 3.9 g/dL 3.4-4.8 [facility] Serum or plasma albumin/glob ulin mass ratioOrdered By: Arcenio Trammell on 09-23-2024 Albumin/Globulin [Mass ratio] 1.0 {ratio} 0.9-2.4 [facility] Serum or plasma alkaline irene sphatase measurementOrdered By: Arcenio Trammell on 09-23-2024 ALP [Catalytic activity/Vol] 300 U/L High 35-104 [facility] Serum or plasma calcium criss urement (mass/volume)Ordered By: Arcenio Trammell on 09-23-2024 Calcium [Mass/Vol] 9.8 mg/dL 7.6-11.0 [facility] Serum or plasma urea nitroge n measurement (mass/volume)Ordered By: Arcenio Trammell on 09-23-2024 Urea nitrogen [Mass/Vol] 14 mg/dL 4-19 [facility] Sodium levelOrdered By: Elinor Trammell on 09-23-2024 Sodium [Moles/Vol] 138 mmol/L 133-145 [facility] Squamous epithelial cells de tection in urine sediment by light microscopyOrdered By: Arcenio Trammell on 09-23-2024 Epithelial cells.squamous LM Ql (Urine sed) 0-5 SEEN /hpf 5-10 [facility] T4 Free Directon 09-23-2024 T4 FREE DIRECT 1.20 ng/dL Normal 0.76-1.46 [facility] Comment on above: Performed By: #### L 506.0400, L501.77534, L501.9520 #### [facility] [address] [place], [place], [id number] T4 freeOrdered By: Arcenio giron on 09-23-2024 Free T4 [Mass/Vol] 1.20 ng/dL 0.76-1.46 [facility] TSH DL <= 0.005 mIU/L QnOrde red By: Arcenio Trammell on 09-23-2024 TSH Qn 22.800 uIU/mL High 0.300-4.200 [facility] Thyroid Stim Hormone (TSH)on 09-23-2024 TSH 22.800 uIU/mL High 0.300-4.200 [facility] Comment on above: Performed By: #### L 506.0400, L501.51093, L501.9520 #### [facility] [address] [place], [address] Total proteinOrdered By: Russ Trammell on 09-23-2024 Protein [Mass/Vol] 7.9 g/dL 5.9-8.4 [facility] Troponin T.cardiac [Mass/vol ume] in Serum or Plasma by High sensitivity methodOrdered By: Arcenio Trammell on 09-23-2024 Troponin T.cardiac High sensitivity method [Mass/Vol] 10 ng/L <14 [facility] Urinalysis, Completeon 09-23 CA OX CRYSTAL 1+ /hpf Normal [facility] Comment on above: Order Comment: CLEAN CATCH Performed By: #### L 400.0001 #### [facility] [address] [place], [address] RBC 0-5 SEEN Normal 0-5 [facility] Comment on above: Order Comment: CLEAN CATCH Performed By: #### L 400.0001 #### [facility] [address] [place], [address] WBC 0-5 SEEN Normal 0-5 [facility] Comment on above: Order Comment: CLEAN CATCH Performed By: #### L 400.0001 #### [facility] [address] [place], [address] EPI,SQUAMOUS 0-5 SEEN Normal 5-10 [facility] Comment on above: Order Comment: CLEAN CATCH Performed By: #### L 400.0001 #### [facility] [address] [place], [address] Mucus Ql (Urine sed) 2+ /hpf Normal [facility] Comment on above: Order Comment: CLEAN CATCH Performed By: #### L 400.0001 #### [facility] [address] [place], [address] BACTERIA 0 SEEN Normal None Seen [facility] Comment on above: Order Comment: CLEAN CATCH Performed By: #### L 400.0001 #### [facility] [address] [place], [address] Urine clarityOrdered By: Russ Trammell on 09-23-2024 Clarity (U) Clear Clear [facility] Urine color determinationOrd ered By: Arcenio Trammell on 09-23-2024 Color (U) Yellow Yellow [facility] Urine glucose detectionOrder ed By: Arcenio Trammell on 09-23-2024 Glucose Ql (U) Normal mg/dl Normal [facility] Urine leukocyte esterase det ection by dipstickOrdered By: Arcenio Trammell on 09-23-2024 Leukocyte esterase Test strip Ql (U) 25 /ul High Negative [facility] Urine pHOrdered By: Arcenio escobedo on 09-23-2024 pH (U) 6.0 [pH] 5.0 - 8.0 [facility] Urine sediment bacteria coun t by microscopy (number/high power field)Ordered By: Arcenio Trammell on 09-23-2024 Bacteria LM.HPF (Urine sed) [#/Area] 0 /[HPF] None Seen [facility] Urine specific gravity measu rementOrdered By: Arcenio Trammell on 09-23-2024 Specific gravity (U) [Rel density] 1.015 1.002-1.030 [facility] Urine urobilinogen measureme ntOrdered By: Arcenio Trammell on 09-23-2024 Urobilinogen Ql (U) Normal mg/dl Normal [facility] White blood cell (WBC) count Ordered By: Arcenio Trammell on 09-23-2024 WBC (Bld) [#/Vol] 9.4 10*3/uL 4.4-11.0 [facility] White blood cell countOrdere d By: Arcenio Trammell on 09-23-2024 White blood cell count 0-5 SEEN /hpf 0-5 [facility] Emergency Department Summary on 09-13-2024 Emergency Department Summary [facility] Medical Records Department [address] [place] [address] Emergency Department Summary 09/13/24 MR#: [id number] Acct: [id number] Name: MICAELA COCHRAN Rep #: [id number] : 1945 78 From: Carroll Weaver MD [...] No traum (more content not included)... Normal [facility] HIP, UNI W/ Pelvis 2-3 Views on 09-13-2024 HIP, UNI W/ Pelvis 2-3 Views [facility] Imaging Services [address] [place], [place] [id number] HIP, UNI W/ Pelvis 2-3 Views MR#: [id number] Acct: [id number] Name: MICAELA COCHRAN Rep #: [id number] : 1945 F 78 From: Yacni Jo nd, MD PCP: Dr. Vera Pompa MD Status: REG ER Study: HIP, UNI W/ Pelvis 2-3 Views Date of Exam: 06/05 Exam# [id number] Ordering Dr: Carroll Weaver MD PROCEDURE: HIP, [...] hips. No obvious acute fracture. Reading Location: [facility] CC: Dr. Carroll Weaver MD; Dr. Vera Pompa MD Inspector Cold Working: Signed Normal [facility] Knee 4 or More Viewson 09-13 Knee 4 or More Views [facility] Imaging Services [address] [place] [address] Knee 4 or More Views MR#: [id number] Acct: [id number] Name: MICAELA COCHRAN Rep #: [id number] : 1945 F 78 From: Yanci Jo nd, MD PCP: Dr. Vera Pompa MD Status: REG ER Study: Knee 4 or More Views Date of Exam: 09/13/24 Exam# [id number] Ordering Dr: Carroll Weaver MD PROCEDURE: KNEE [...] obvious acute fracture. Small effusion. Reading Location: [id number] CC: Dr. Carroll Weaver MD; Dr. Vera Pompa MD Inspector Cold [facility]: [facility] MICAELA COCHRAN ([id number]) 1945 F Date Time Provider Department 09/03/24 12:00 PM VERA POMPA FAMPWS During your visit today, we recorded the following information about you: Pulse Respiration Blood pressure Weight 86/minute 16/minute 128/78 59.8 kg Height 1.499 m Vera Pompa MD 09/03/2024 12:39 PM Signed Micaela Cochran is a 78 year old female [...] (Family Medicine) Luis Enrique Caicedo APRN.BERNIE as Documentation Manager (Family Medicine) Medical/Family history review Reviewed and [...] 99% BMI 26.63 kg/m? Vision Screening: Right: Left: Both: Assessment/Plan Medicare annual wellness visit, initial (Z00.00) - Counseled on healthy diet and regular exercise - Fall avoidance information provided - Personalized prevention plan provided - Discussed need for and benefit of weight loss. BMI 26.63 kg/(m2) Chief Complaint Patient presents with: Medicare Wellness Exam Follow up HPI Micaela Cochran is a 78 year old female who presents here today for follow up BP and Nose bleed. Here with . Micaela Cochran is a 78-year-old female, with a history of falls, osteoporosis, and depression, presenting for a Medicare Annual Wellness Visit. Micaela reports difficulty with mobility and balance, stating, [...] her falls, stating, I don't know why. Micaela has a son who lives nearby and monitors her well-being, especially in the evenings. She has a ramp built by her orthodox to facilitate easier access to her home. She has participated in physical therapy in the past but has not done so recently. She possesses weights and resistance bands at home but admits to forgetting to use them regularly. Micaela was seen in the emergency room a [...] denies needing any refills at this time. Micaela tries to maintain a healthy diet, consuming [...] aura < (more content not included)... Normal [facility] Emergency Department Summary on 08-21-2024 Emergency Department Summary [facility] Medical Records Department [address] [place] [address] Emergency Department Summary 08/21/24 MR#: [id number] Acct: [id number] Name: MICAELA COCHRAN Rep #: [id number] : 1945 78 From: Graham Lozano MD PCP: Dr. Vera Pompa MD Status:REG [...] or scle (more content not included)... Normal [facility] 06-22-2024 [facility] Telephone (NEAGCLM) MICAELA COCHRAN ([id number]) 1945 F Date Time Provider Department 06/22/24 NUZHAT NAIK NEAGCLM During your visit today, we recorded the following information about you: Nuzhat Naik APRN.TECHNICAL STENOGRAPHER 06/22/2024 9:43 AM Signed Patient last seen [...] worsening symptoms arise. @JAYLENE@ Nuzhat Naik APRN-[facility] Allergies As of Date: 06/22/2024 Noted [...] Encounter Status:Closed by NUZHAT NAIK on 06/22/24 [facility] CNOVon 06-21-2024 CNOV Office Visit (NEAGCLM) MICAELA COCHRAN ([id number]) 1945 F Date Time Provider Department 06/21/24 2:00 PM NUZHAT NAIK NEAGCLM During your visit today, we recorded the following information about you: Pulse Blood pressure Weight Height 84/minute 131/84 59 kg 1.524 m Nuzhat Naik APRN.CNP 06/21/2024 2:42 PM Signed SPINE SURGERY FOLLOW UP NOTE JOSEP Sosa Date of visit: June 21, 2024 Patient Name: Ms.Joyce Ricardo Cochran Date of : 1945 Current Age: [age] year old Sex: female MRN/E# [id number] Last Office Visit: 05/10/2024 Chief Complaint: Patient presents with: Established Patient [facility] Neurosurgery Encounter: Dr. Benedict progress note from 05/06/24: NS plan of care - MRI reviewed; chronic T11, T12 fractures. No edema to suggest any acuity. Pain seems to be coming from rib fractures. Neuro intact on exam. TLSO brace for comfort. Upright films in brace. Will repeat XR in 6 weeks in the outpatient setting. Bisi Benedict MD HPI: Ms.Micaela Cochran presented to [facility] on 05/05/2024 after a ground level fall. [...] repeat thoracic x-rays, prompting her visit today. Micaela is a 78-year-old female presenting for follow-up after a recent hospitalization. Micaela reports significant improvement in back pain, currently [...] Procedure Laterality Date BREAST BIOPSY Left 12/16/2016 [facility]-Dr. Sandhu DELIVERY ONLY , low transverse x [...] taking: Reporte (more content not included)... Normal [facility] XR THORACO LUMBAR JNCT 2V AP /LATon 06-21-2024 XR THORACO LUMBAR JNCT 2V AP/LAT * * *Final Report* * * DATE OF EXAM: Jun 21 2024 2:38PM A1X [id number] - XR THORACO LUMBAR JNCT 2V AP/LAT / PROCEDURE REASON: Closed wedge compression fracture of T11 vertebra, initial encounter ([facility]) * * * * Physician Interpretation * * * * EXAMINATION: XR THORACO LUMBAR JNCT 2V AP/LAT HISTORY: closed wedge compression of T11, 6 week follow up Closed wedge compression fracture of T11 vertebra, initial encounter ([facility]) . TECHNIQUE: XR THORACO LUMBAR JNCT 2V [...] to prior. No new abnormality is seen. Inspector Cold Working: [facility] Transcribe Date/Time: Jun 26 2024 12:27P Dictated by : GUERDA DIAZ MD This examination was interpreted and the report reviewed and electronically signed by: GUERDA DIAZ MD on Jun 26 2024 12:31PM EST [id number] Normal [facility] Basic Metabolic Profile (BMP )on 06-07-2024 Anion Gap Normal 5-15 [facility] Comment on above: Result Comment: Canc elled via OM: Order cancelled - Patient discharged Performed By: #### L 100.0100, L500.2500 ####[facility] [address] [facility] [address] BUN Normal 4-19 [facility] Comment on above: Result Comment: Canc elled via OM: Order cancelled - Patient discharged Performed By: #### L 100.0100, L500.2500 ####[facility] [address] [facility] [address] BUN/CRE Normal 10-20 [facility] Comment on above: Result Comment: Canc elled via OM: Order cancelled - Patient discharged Performed By: #### L 100.0100, L500.2500 ####[facility] [address] [facility] [address] Calcium Normal 7.6-11.0 [facility] Comment on above: Result Comment: Canc elled via OM: Order cancelled - Patient discharged Performed By: #### L 100.0100, L500.2500 ####[facility] [address] [place], [address] Chloride Normal 96-108 [facility] Comment on above: Result Comment: Canc elled via OM: Order cancelled - Patient discharged Performed By: #### L 100.0100, L500.2500 ####[facility] [address] [place], [address] CO2 Normal 22.0-29.0 [facility] Comment on above: Result Comment: Canc elled via OM: Order cancelled - Patient discharged Performed By: #### L 100.0100, L500.2500 ####[facility] [address] [place], [address] CREAT,SERUM Normal 0.6-1.0 [facility] Comment on above: Result Comment: Canc elled via OM: Order cancelled - Patient discharged Performed By: #### L 100.0100, L500.2500 ####[facility] [address] [place], [address] eGFR Normal >60 [facility] Comment on above: Result Comment: Canc elled via OM: Order cancelled - Patient discharged Performed By: #### L 100.0100, L500.2500 ####[facility] [address] [place], [address] GLU Normal 70-99 [facility] Comment on above: Result Comment: Canc elled via OM: Order cancelled - Patient discharged Performed By: #### L 100.0100, L500.2500 ####[facility] [address] [place], [address] Potassium Normal 3.3-5.1 [facility] Comment on above: Result Comment: Canc elled via OM: Order cancelled - Patient discharged Performed By: #### L 100.0100, L500.2500 ####[facility] [address] [place], [address] Sodium Normal 133-145 [facility] Comment on above: Result Comment: Canc elled via OM: Order cancelled - Patient discharged Performed By: #### L 100.0100, L500.2500 ####[facility] [address] [place], [address] CBC W/Diff, Automatedon 03-2 Absolute Neut Normal 2.0-7.7 [facility] Comment on above: Result Comment: Canc elled via OM: Order cancelled - Patient discharged Performed By: #### L 100.0100, L500.2500 ####[facility] [address] [place], [address] HCT Normal 37-47 [facility] Comment on above: Result Comment: Canc elled via OM: Order cancelled - Patient discharged Performed By: #### L 100.0100, L500.2500 ####[facility] [address] [place], [address] HGB Normal 12.0-15.0 [facility] Comment on above: Result Comment: Canc elled via OM: Order cancelled - Patient discharged Performed By: #### L 100.0100, L500.2500 ####[facility] [address] [place], [address] MCH Normal 27.0-32.0 [facility] Comment on above: Result Comment: Canc elled via OM: Order cancelled - Patient discharged Performed By: #### L 100.0100, L500.2500 ####[facility] [address] [place], [address] MCHC Normal 32-36 [facility] Comment on above: Result Comment: Canc elled via OM: Order cancelled - Patient discharged Performed By: #### L 100.0100, L500.2500 ####[facility] [address] [place], [address] MCV Normal 81-99 [facility] Comment on above: Result Comment: Canc elled via OM: Order cancelled - Patient discharged Performed By: #### L 100.0100, L500.2500 ####[facility] [address] [place], [address] NEUT% Normal 47-70 [facility] Comment on above: Result Comment: Canc elled via OM: Order cancelled - Patient discharged Performed By: #### L 100.0100, L500.2500 ####[facility] [address] [place], [address] PLT Normal 150-450 [facility] Comment on above: Result Comment: Canc elled via OM: Order cancelled - Patient discharged Performed By: #### L 100.0100, L500.2500 ####[facility] [address] [place], [address] RBC Normal 4.2-5.4 [facility] Comment on above: Result Comment: Canc elled via OM: Order cancelled - Patient discharged Performed By: #### L 100.0100, L500.2500 ####[facility] [address] [place], [address] RDW CV Normal 11.6-14.6 [facility] Comment on above: Result Comment: Canc elled via OM: Order cancelled - Patient discharged Performed By: #### L 100.0100, L500.2500 ####[facility] [address] [place], [address] RDW SD Normal 35.1-43.9 [facility] Comment on above: Result Comment: Canc elled via OM: Order cancelled - Patient discharged Performed By: #### L 100.0100, L500.2500 ####[facility] [address] [place], [address] WBC Normal 4.4-11.0 [facility] Comment on above: Result Comment: Canc elled via OM: Order cancelled - Patient discharged Performed By: #### L 100.0100, L500.2500 ####[facility] [address] [place], [address] Basic Metabolic Profile (BMP )on 05-31-2024 Anion Gap Normal 5-15 [facility] Comment on above: Result Comment: Canc elled via OM: Order cancelled - Patient discharged Performed By: #### L 506.0400, L501.02780, L501.9520 #### [facility] [address] [place], [address] BUN Normal 4-19 [facility] Comment on above: Result Comment: Canc elled via OM: Order cancelled - Patient discharged Performed By: #### L 506.0400, L501.69220, L501.9520 #### [facility] [address] [place], [address] BUN/CRE Normal 10-20 [facility] Comment on above: Result Comment: Canc elled via OM: Order cancelled - Patient discharged Performed By: #### L 506.0400, L501.54416, L501.9520 #### [facility] [address] [place], [address] Calcium Normal 7.6-11.0 [facility] Comment on above: Result Comment: Canc elled via OM: Order cancelled - Patient discharged Performed By: #### L 506.0400, L501.73937, L501.9520 #### [facility] [address] [place], [address] Chloride Normal 96-108 [facility] Comment on above: Result Comment: Canc elled via OM: Order cancelled - Patient discharged Performed By: #### L 506.0400, L501.24147, L501.9520 #### [facility] [address] [place], [address] CO2 Normal 22.0-29.0 [facility] Comment on above: Result Comment: Canc elled via OM: Order cancelled - Patient discharged Performed By: #### L 506.0400, L501.87349, L501.9520 #### [facility] [address] [place], [address] CREAT,SERUM Normal 0.6-1.0 [facility] Comment on above: Result Comment: Canc elled via OM: Order cancelled - Patient discharged Performed By: #### L 506.0400, L501.70602, L501.9520 #### [facility] [address] [place], [address] eGFR Normal >60 [facility] Comment on above: Result Comment: Canc elled via OM: Order cancelled - Patient discharged Performed By: #### L 506.0400, L501.13230, L501.9520 #### [facility] [address] [place], [address] GLU Normal 70-99 [facility] Comment on above: Result Comment: Canc elled via OM: Order cancelled - Patient discharged Performed By: #### L 506.0400, L501.80153, L501.9520 #### [facility] [address] [place], [address] Potassium Normal 3.3-5.1 [facility] Comment on above: Result Comment: Canc elled via OM: Order cancelled - Patient discharged Performed By: #### L 506.0400, L501.57597, L501.9520 #### [facility] [address] [place], [address] Sodium Normal 133-145 [facility] Comment on above: Result Comment: Canc elled via OM: Order cancelled - Patient discharged Performed By: #### L 506.0400, L501.76887, L501.9520 #### [facility] [address] [place], [address] CBC W/Diff, Automatedon 03-2 0-2024 Absolute Neut Normal 2.0-7.7 [facility] Comment on above: Result Comment: Canc elled via OM: Order cancelled - Patient discharged Performed By: #### L 506.0400, L501.14697, L501.9520 #### [facility] [address] [place], [address] HCT Normal 37-47 [facility] Comment on above: Result Comment: Canc elled via OM: Order cancelled - Patient discharged Performed By: #### L 506.0400, L501.66618, L501.9520 #### [facility] [address] [place], [address] HGB Normal 12.0-15.0 [facility] Comment on above: Result Comment: Canc elled via OM: Order cancelled - Patient discharged Performed By: #### L 506.0400, L501.76029, L501.9520 #### [facility] [address] [place], [address] MCH Normal 27.0-32.0 [facility] Comment on above: Result Comment: Canc elled via OM: Order cancelled - Patient discharged Performed By: #### L 506.0400, L501.24924, L501.9520 #### [facility] [address] [place], [address] MCHC Normal 32-36 [facility] Comment on above: Result Comment: Canc elled via OM: Order cancelled - Patient discharged Performed By: #### L 506.0400, L501.72158, L501.9520 #### [facility] [address] [place], [address] MCV Normal 81-99 [facility] Comment on above: Result Comment: Canc elled via OM: Order cancelled - Patient discharged Performed By: #### L 506.0400, L501.72970, L501.9520 #### [facility] [address] [place], [address] NEUT% Normal 47-70 [facility] Comment on above: Result Comment: Canc elled via OM: Order cancelled - Patient discharged Performed By: #### L 506.0400, L501.72177, L501.9520 #### [facility] [address] [place], [address] PLT Normal 150-450 [facility] Comment on above: Result Comment: Canc elled via OM: Order cancelled - Patient discharged Performed By: #### L 506.0400, L501.56996, L501.9520 #### [facility] [address] [place], [address] RBC Normal 4.2-5.4 [facility] Comment on above: Result Comment: Canc elled via OM: Order cancelled - Patient discharged Performed By: #### L 506.0400, L501.31766, L501.9520 #### [facility] [address] [place], [address] RDW CV Normal 11.6-14.6 [facility] Comment on above: Result Comment: Canc elled via OM: Order cancelled - Patient discharged Performed By: #### L 506.0400, L501.53566, L501.9520 #### [facility] [address] [place], [address] RDW SD Normal 35.1-43.9 [facility] Comment on above: Result Comment: Canc elled via OM: Order cancelled - Patient discharged Performed By: #### L 506.0400, L501.01882, L501.9520 #### [facility] [address] [place], [place], [address] WBC Normal 4.4-11.0 [facility] Comment on above: Result Comment: Canc elled via OM: Order cancelled - Patient discharged Performed By: #### L 506.0400, L501.87170, L501.9520 #### [facility] [address] [place], [address] CNCOon 05-31-2024 CNCO Letter Text Normal [facility] CNPNon 05-25-2024 CNPN Telephone (FAMPWS) MICAELA COCHRAN ([id number]) 1945 F Date Time Provider Department 05/25/24 [facility] [place] During your visit today, we recorded the following information about you: Arash Nath RN 05/25/2024 10:56 AM Signed Dewart Hoop Cutter with [facility] called and reports Pt is scheduled to be discharged from [facility] on 05/25/24 for bibasilar pneumonia, rib fracture, [...] Amanda, KHADAR 05/25/2024 11:56 AM Signed Apryl Hoop Cutter with [facility] called and is notified of providers message and instructions. She voices understanding. Arash Nath RN Allergies As of Date: 05/25/2024 Noted Allergy Reaction ACETAMINOPHEN-CODEINE 04/07/2023 16 - Unknown BIAXIN (CLARITHROMYCIN) 03/16/2005 16 - Unknown Comments: Doesn't remember, was a long time ago CODEINE 01/05/2007 Comments: unknown-long time ago NAPROXEN 11/23/2007 2 - Rash Comments: Generalized, nonpruritic RELAFEN (NABUMETONE) 03/16/2005 16 - Unknown Comments: Doesn't remember Date Reviewed: 05/06/2024 Reviewed by: Sheryl Solitario RN - Fully Assessed Reason for Visit: Follow [...] and collapse [R55] 05/08/2024 Encounter Status:Closed by ARASH NATH on 05/25/24 Normal [facility] Absolute lymphocyte countOrd ered By: Odilon Rodríguez on 05-24-2024 Lymphocytes Auto (Unsp spec) [#/Vol] 2.11 10*3/uL 0.83-4.51 [facility] Absolute neutrophil countOrd ered By: Odilon Rodríguez on 05-24-2024 Neutrophils (Bld) [#/Vol] 4.5 10*3/uL 2.0-7.7 [facility] Automated lymphocyte count a s percentage of total leukocytesOrdered By: Odilon Rodríguez on 05-24-2024 Lymphocytes/100 WBC Auto (Unsp spec) 27.4 % 19-41 [facility] BUN/creatinine ratioOrdered By: Odilon Rodríguez on 05-24-2024 Urea nitrogen/Creatinine [Mass ratio] 31.4 mg/mg High 10-20 [facility] Basic Metabolic Profile (BMP )on 05-24-2024 Anion gap [Moles/Vol] 13 mmol/L Normal 5-15 [facility] Comment on above: Performed By: #### L 506.0400, L501.02743, L501.9520 #### [facility] [address] [place], [address] BUN/CRE 31.4 RATIO High 10- [facility] Comment on above: Performed By: #### L 506.0400, L501.09826, L501.9520 #### [facility] [address] [place], [address] Calcium [Mass/Vol] 8.5 mg/dL Normal 7.6-11.0 [facility] Comment on above: Performed By: #### L 506.0400, L501.49509, L501.9520 #### [facility] [address] [place], [address] Chloride [Moles/Vol] 106 mmol/L Normal 96-108 [facility] Comment on above: Performed By: #### L 506.0400, L501.79379, L501.9520 #### [facility] [address] [place], [address] CO2 [Moles/Vol] 20.9 mmol/L Low 22.0-29.0 [facility] Comment on above: Performed By: #### L 506.0400, L501.00436, L501.9520 #### [facility] [address] [place], [address] Creatinine [Mass/Vol] 0.61 mg/dL Low 0.70-1.20 [facility] Comment on above: Performed By: #### L 506.0400, L501.61757, L501.9520 #### [facility] [address] [place], [address] ECRCL 48.12 ml/min Low 50-250 [facility] Comment on above: Performed By: #### L 506.0400, L501.48982, L501.9520 #### [facility] [address] [place], [address] GFR/1.73 sq M.predicted among non-blacks MDRD (S/P/Bld) [Vol rate/Area] 93 mL/min/{1.73_m2} Normal >60 [facility] Comment on above: Result Comment: mL/m in/1.73m2 CKD-EPI Creatinine Equation (2020) Performed By: #### L 506.0400, L501.90128, L501.9520 #### [facility] [address] [place], [address] Glucose [Mass/Vol] 86 mg/dL Normal 70-99 [facility] Comment on above: Performed By: #### L 506.0400, L501.68999, L501.9520 #### [facility] [address] [place], [address] Potassium [Moles/Vol] 4.1 mmol/L Normal 3.3-5.1 [facility] Comment on above: Performed By: #### L 506.0400, L501.28873, L501.9520 #### [facility] [address] [place], [address] Sodium [Moles/Vol] 139 mmol/L Normal 133-145 [facility] Comment on above: Performed By: #### L 506.0400, L501.05242, L501.9520 #### [facility] [address] [place], [address] Urea nitrogen [Mass/Vol] 19 mg/dL Normal 4-19 [facility] Comment on above: Performed By: #### L 506.0400, L501.26284, L501.9520 #### [facility] [address] [place], [address] Basophil percentageOrdered B y: Odilon Rodríguez on 05-24-2024 Basophils/100 WBC (Bld) 0.6 % 0-1 [facility] CBC W/Diff, Automatedon 05-12 Absolute Lymph 2.11 X10 3/uL Normal 0.83-4.51 [facility] Comment on above: Performed By: #### L 506.0400, L501.26793, L501.9520 #### [facility] [address] [place], [address] Absolute Neut 4.5 X10 3/uL Normal 2.0-7.7 [facility] Comment on above: Performed By: #### L 506.0400, L501.89498, L501.9520 #### [facility] [address] [place], [address] Basophils/100 WBC (Bld) 0.6 % Normal 0-1 [facility] Comment on above: Performed By: #### L 506.0400, L501.32032, L501.9520 #### [facility] [address] [place], [address] Eosinophils/100 WBC (Bld) 4.5 % Normal 0-5 [facility] Comment on above: Performed By: #### L 506.0400, L501.48910, L501.9520 #### [facility] [address] [place], [address] Erythrocyte distribution width (RBC) [Ratio] 13.9 % Normal 11.6-14.6 [facility] Comment on above: Performed By: #### L 506.0400, L501.20322, L501.9520 #### [facility] [address] [place], [address] Hematocrit (Bld) [Volume fraction] 34.2 % Low 37-47 [facility] Comment on above: Performed By: #### L 506.0400, L501.04976, L501.9520 #### [facility] [address] [place], [address] Hemoglobin (Bld) [Mass/Vol] 11.4 g/dL Low 12.0-15.0 [facility] Comment on above: Performed By: #### L 506.0400, L501.01921, L501.9520 #### [facility] [address] [place], [address] IG% 0.400 Normal 0.0-0.9 [facility] Comment on above: Result Comment: IG% - Immature Granulocytes (promyelocytes, myelocytes and metamyelocytes) > 1% indicates that a LEFT SHIFT is Present. Performed By: #### L 506.0400, L501.74552, L501.9520 #### [facility] [address] [place], [address] Lymphocytes/100 WBC (Bld) 27.4 % Normal 19-41 [facility] Comment on above: Performed By: #### L 506.0400, L501.84847, L501.9520 #### [facility] [address] [place], [address] MCH (RBC) [Entitic mass] 31.2 pg Normal 27.0-32.0 [facility] Comment on above: Performed By: #### L 506.0400, L501.84493, L501.9520 #### [facility] [address] [place], [address] MCHC (RBC) [Mass/Vol] 33.3 g/dL Normal 32-36 [facility] Comment on above: Performed By: #### L 506.0400, L501.00062, L501.9520 #### [facility] [address] [place], [address] MCV (RBC) [Entitic vol] 93.7 fL Normal 81-99 [facility] Comment on above: Performed By: #### L 506.0400, L501.03975, L501.9520 #### [facility] [address] [place], [address] Monocytes/100 WBC (Bld) 8.2 % Normal 0-10 [facility] Comment on above: Performed By: #### L 506.0400, L501.78697, L501.9520 #### [facility] [address] [place], [address] Neutrophils/100 WBC (Bld) 58.9 % Normal 47-70 [facility] Comment on above: Performed By: #### L 506.0400, L501.22471, L501.9520 #### [facility] [address] [place], [address] Nucleated RBC (Bld) [#/Vol] 0 10*3/uL Normal 0-5 [facility] Comment on above: Performed By: #### L 506.0400, L501.04077, L501.9520 #### [facility] [address] [place], [address] Platelet mean volume (Bld) [Entitic vol] 9.3 fL Normal 6.2-12.0 [facility] Comment on above: Performed By: #### L 506.0400, L501.20604, L501.9520 #### [facility] [address] [place], [address] Platelets (Bld) [#/Vol] 477 10*3/uL High 150-450 [facility] Comment on above: Performed By: #### L 506.0400, L501.61634, L501.9520 #### [facility] [address] [place], [address] RBC (Bld) [#/Vol] 3.65 10*6/uL Low 4.2-5.4 [facility] Comment on above: Performed By: #### L 506.0400, L501.50397, L501.9520 #### [facility] [address] [place], [address] RDW SD 47.6 fl High 35.1-43.9 [facility] Comment on above: Performed By: #### L 506.0400, L501.47741, L501.9520 #### [facility] [address] [place], [address] WBC (Bld) [#/Vol] 7.7 10*3/uL Normal 4.4-11.0 [facility] Comment on above: Performed By: #### L 506.0400, L501.02337, L501.9520 #### [facility] [address] [place], [address] Carbon dioxide measurementOr dered By: Odilon Rodríguez on 05-24-2024 CO2 [Moles/Vol] 20.9 mmol/L Low 22.0-29.0 [facility] Chloride measurementOrdered By: Odilon Rodríguez 05-24-2024 Chloride [Moles/Vol] 106 mmol/L 96-108 [facility] Eosinophil percentageOrdered By: Odilon Rodríguez on 05-24-2024 Eosinophils/100 WBC (Bld) 4.5 % 0-5 [facility] Erythrocyte distribution wid th ratioOrdered By: Odilon Rodríguez on 05-24-2024 Erythrocyte distribution width (RBC) [Ratio] 13.9 % 11.6-14.6 [facility] Erythrocyte distribution wid th standard deviationOrdered By: Odilon Rodríguez 05-24-2024 Erythrocyte distribution width (RBC) [Entitic vol] 47.6 fL High 35.1-43.9 [facility] Erythrocyte distribution width (RBC) [Ratio] 47.6 fl High 35.1-43.9 [facility] Estimation of creatinine magno aranceOrdered By: Odilon Rodríguez on 05-24-2024 Estimated Creatinine Clearance Calc 48.12 ml/min Low 50-250 [facility] GFR/1.73 sq M.predicted simba g non-blacks MDRD (S/P/Bld) [Vol rate/Area]Ordered By: Odilon Rodríguez 05-24-2024 Estimated GFR (MDRD) Non-Af Amer 93 >60 [facility] Comment on above: mL/min/1.73m2 CKD-EP I Creatinine Equation (2020) Glomerular filtration rate ( GFR) estimation/1.73 sq m using serum, plasma, or whole bOrdered By: Odilon Rodríguez on 05-24-2024 GFR/1.73 sq M.predicted among non-blacks MDRD (S/P/Bld) [Vol rate/Area] 93 mL/min/{1.73_m2} >60 [facility] Comment on above: mL/min/1.73m2 CKD-EP I Creatinine Equation (2020) Hematocrit Auto (Bld) [Volum e fraction]Ordered By: Odilon Rodríguez 05-24-2024 Hematocrit (Bld) [Volume fraction] 34.2 % Low 37-47 [facility] Hemoglobin measurementOrdere d By: Odilon Rodríguez 05-24-2024 Hemoglobin (Bld) [Mass/Vol] 11.4 g/dL Low 12.0-15.0 [facility] Immature granulocytes/100 WB C Auto (Bld)Ordered By: Odilon Rodríguez 05-24-2024 Immature granulocytes/100 WBC (Bld) 0.400 % 0.0-0.9 [facility] Comment on above: IG% - Immature Granu locytes (promyelocytes, myelocytes and metamyelocytes) > 1% indicates that a LEFT SHIFT is Present. Lymphocytes Auto (Unsp spec) [#/Vol]Ordered By: Odilon Rodríguez on 05-24-2024 Lymphocytes (Bld) [#/Vol] 2.11 10*3/uL 0.83-4.51 [facility] Lymphocytes/100 WBC Auto (Un sp spec)Ordered By: Odilon Rodríguez on 05-24-2024 Lymphocytes/100 WBC (Bld) 27.4 % 19-41 [facility] MCV (mean corpuscular volume ) determinationOrdered By: Odilon Rodríguez on 05-24-2024 MCV (RBC) [Entitic vol] 93.7 fL 81-99 [facility] Mean corpuscular hemoglobin (MCH) determinationOrdered By: Odilon Rodríguez on 05-24-2024 MCH (RBC) [Entitic mass] 31.2 pg 27.0-32.0 [facility] Mean corpuscular hemoglobin concentration (MCHC) determinationOrdered By: Odilon Rodríguez on 05-24-2024 MCHC (RBC) [Mass/Vol] 33.3 g/dL 32-36 [facility] Mean platelet volume determi nationOrdered By: Odilon Rodríguez on 05-24-2024 Platelet mean volume (Bld) [Entitic vol] 9.3 fL 6.2-12.0 [facility] Monocyte percentageOrdered B y: Odilon Rodríguez on 05-24-2024 Monocytes/100 WBC (Bld) 8.2 % 0-10 [facility] Neutrophil percentageOrdered By: Odilon Rodríguez on 05-24-2024 Neutrophils/100 WBC (Bld) 58.9 % 47-70 [facility] Nucleated red blood cell per centageOrdered By: Odilon Rodríguez on 05-24-2024 Nucleated RBC/100 WBC (Bld) [Ratio] 0 % 0-5 [facility] Platelet countOrdered By: Christoph Rodríguez on 05-24-2024 Platelets (Bld) [#/Vol] 477 10*3/uL High 150-450 [facility] RBC Auto (Bld) [#/Vol]Ordere d By: Odilon Rodríguez on 05-24-2024 RBC (Bld) [#/Vol] 3.65 10*6/uL Low 4.2-5.4 [facility] Serum creatinine measurement (mass/volume)Ordered By: Odilon Rodríguez on 05-24-2024 Creatinine [Mass/Vol] 0.61 mg/dL Low 0.70-1.20 [facility] Serum glucose measurement (m ass/volume)Ordered By: Odilon Rodríguez on 05-24-2024 Glucose [Mass/Vol] 86 mg/dL 70-99 [facility] Serum or plasma anion gap de termination (moles/volume)Ordered By: Odilon Rodríguez on 05-24-2024 Anion gap [Moles/Vol] 13 mmol/L - [facility] Serum or plasma calcium criss urement (mass/volume)Ordered By: Odilon Rodríguez on 05-24-2024 Calcium [Mass/Vol] 8.5 mg/dL 7.6-11.0 [facility] Serum or plasma potassium me asurementOrdered By: Odilon Rodríguez on 05-24-2024 Potassium [Moles/Vol] 4.1 mmol/L 3.3-5.1 [facility] Serum or plasma sodium measu rement (moles/volume)Ordered By: Odilon Rodríguez on 05-24-2024 Sodium [Moles/Vol] 139 mmol/L 133-145 [facility] Serum or plasma urea nitroge n measurement (mass/volume)Ordered By: Odilon Rodríguez on 05-24-2024 Urea nitrogen [Mass/Vol] 19 mg/dL - [facility] White blood cell (WBC) count Ordered By: Odilon Rodríguez on 05-24-2024 WBC (Bld) [#/Vol] 7.7 10*3/uL 4.4-11.0 [facility] Basic Metabolic Profile (BMP )on 05-17-2024 Anion gap [Moles/Vol] 13 mmol/L Normal - [facility] Comment on above: Performed By: #### L 500.2500, L100.0100 ####[facility] [address] [place], [place], [address] BUN/CRE 34.2 RATIO High 10-20 [facility] Comment on above: Performed By: #### L 500.2500, L100.0100 ####[facility] [address] [place], [address] Calcium [Mass/Vol] 8.6 mg/dL Normal 7.6-11.0 [facility] Comment on above: Performed By: #### L 500.2500, L100.0100 ####[facility] [address] [place], [address] Chloride [Moles/Vol] 105 mmol/L Normal 96-108 [facility] Comment on above: Performed By: #### L 500.2500, L100.0100 ####[facility] [address] [place], [address] CO2 [Moles/Vol] 21.0 mmol/L Low 22.0-29.0 [facility] Comment on above: Performed By: #### L 500.2500, L100.0100 ####[facility] [address] [place], [address] Creatinine [Mass/Vol] 0.70 mg/dL Normal 0.70-1.20 [facility] Comment on above: Performed By: #### L 500.2500, L100.0100 ####[facility] [address] [place], [address] ECRCL 48.49 ml/min Low 50-250 [facility] Comment on above: Performed By: #### L 500.2500, L100.0100 ####[facility] [address] [place], [address] GFR/1.73 sq M.predicted among non-blacks MDRD (S/P/Bld) [Vol rate/Area] 90 mL/min/{1.73_m2} Normal >60 [facility] Comment on above: Result Comment: mL/m in/1.73m2 CKD-EPI Creatinine Equation (2020) Performed By: #### L 500.2500, L100.0100 ####[facility] [address] [place], [address] Glucose [Mass/Vol] 90 mg/dL Normal 70-99 [facility] Comment on above: Performed By: #### L 500.2500, L100.0100 ####[facility] [address] [place], [address] Potassium [Moles/Vol] 4.2 mmol/L Normal 3.3-5.1 [facility] Comment on above: Performed By: #### L 500.2500, L100.0100 ####[facility] [address] [place], [address] Sodium [Moles/Vol] 139 mmol/L Normal 133-145 [facility] Comment on above: Performed By: #### L 500.2500, L100.0100 ####[facility] [address] [place], [address] Urea nitrogen [Mass/Vol] 24 mg/dL High 4-19 [facility] Comment on above: Performed By: #### L 500.2500, L100.0100 ####[facility] [address] [place], [address] CBC W/Diff, Automatedon 03-0 6-5 Absolute Lymph 2.21 X10 3/uL Normal 0.83-4.51 [facility] Comment on above: Performed By: #### L 500.2500, L100.0100 ####[facility] [address] [place], [address] Absolute Neut 4.9 X10 3/uL Normal 2.0-7.7 [facility] Comment on above: Performed By: #### L 500.2500, L100.0100 ####[facility] [address] [place], [address] Basophils/100 WBC (Bld) 1.1 % High 0-1 [facility] Comment on above: Performed By: #### L 500.2500, L100.0100 ####[facility] [address] [place], [address] Eosinophils/100 WBC (Bld) 4.5 % Normal 0-5 [facility] Comment on above: Performed By: #### L 500.2500, L100.0100 ####[facility] [address] [place], [address] Erythrocyte distribution width (RBC) [Ratio] 13.6 % Normal 11.6-14.6 [facility] Comment on above: Performed By: #### L 500.2500, L100.0100 ####[facility] [address] [place], [address] Hematocrit (Bld) [Volume fraction] 33.6 % Low 37-47 [facility] Comment on above: Performed By: #### L 500.2500, L100.0100 ####[facility] [address] [place], [address] Hemoglobin (Bld) [Mass/Vol] 11.0 g/dL Low 12.0-15.0 [facility] Comment on above: Performed By: #### L 500.2500, L100.0100 ####[facility] [address] [place], [address] IG% 0.600 Normal 0.0-0.9 [facility] Comment on above: Result Comment: IG% - Immature Granulocytes (promyelocytes, myelocytes and metamyelocytes) > 1% indicates that a LEFT SHIFT is Present. Performed By: #### L 500.2500, L100.0100 ####[facility] [address] [place], [address] Lymphocytes/100 WBC (Bld) 26.2 % Normal 19-41 [facility] Comment on above: Performed By: #### L 500.2500, L100.0100 ####[facility] [address] [place], [address] MCH (RBC) [Entitic mass] 31.2 pg Normal 27.0-32.0 [facility] Comment on above: Performed By: #### L 500.2500, L100.0100 ####[facility] [address] [place], [address] MCHC (RBC) [Mass/Vol] 32.7 g/dL Normal 32-36 [facility] Comment on above: Performed By: #### L 500.2500, L100.0100 ####[facility] [address] [place], [address] MCV (RBC) [Entitic vol] 95.2 fL Normal 81-99 [facility] Comment on above: Performed By: #### L 500.2500, L100.0100 ####[facility] [address] [place], [address] Monocytes/100 WBC (Bld) 10.3 % High 0-10 [facility] Comment on above: Performed By: #### L 500.2500, L100.0100 ####[facility] [address] [place], [address] Neutrophils/100 WBC (Bld) 57.3 % Normal 47-70 [facility] Comment on above: Performed By: #### L 500.2500, L100.0100 ####[facility] [address] [place], [address] Nucleated RBC (Bld) [#/Vol] 0 10*3/uL Normal 0-5 [facility] Comment on above: Performed By: #### L 500.2500, L100.0100 ####[facility] [address] [place], [address] Platelet mean volume (Bld) [Entitic vol] 9.7 fL Normal 6.2-12.0 [facility] Comment on above: Performed By: #### L 500.2500, L100.0100 ####[facility] [address] [place], [address] Platelets (Bld) [#/Vol] 435 10*3/uL Normal 150-450 [facility] Comment on above: Performed By: #### L 500.2500, L100.0100 ####[facility] [address] [place], [address] RBC (Bld) [#/Vol] 3.53 10*6/uL Low 4.2-5.4 [facility] Comment on above: Performed By: #### L 500.2500, L100.0100 ####[facility] [address] [place], [address] RDW SD 47.1 fl High 35.1-43.9 [facility] Comment on above: Performed By: #### L 500.2500, L100.0100 ####[facility] [address] [place], [address] WBC (Bld) [#/Vol] 8.5 10*3/uL Normal 4.4-11.0 [facility] Comment on above: Performed By: #### L 500.2500, L100.0100 ####[facility] [address] [place], [address] Calculated very low density lipoprotein (VLDL) cholesterol measurementOrdered By: Odilon Rodríguez on 05-11-2024 Calculated very low density lipoprotein (VLDL) cholesterol measurement 13 mg/dL 5-40 [facility] VLDL Cholesterol 13 mg/dL 5-40 [facility] Chest PA and Lateralon 05-11 Chest PA and Lateral [facility] Imaging Services [address] [place] [address] Chest PA and Lateral MR#: [id number] Acct: [id number] Name: MICAELA COCHRAN Ricardo Rep #: [id number] : 1945 F 78 From: Ha merchant MD PCP: Dr. Vera Pompa MD Status: ADM IN Study: Chest PA and Lateral Date of Exam: 05/11/24 Exam# [id number] Ordering Dr: Odilon Rodríguez MD PROCEDURE: CHEST [...] mid lung. Large hiatal hernia. Reading Location: [id number] CC: Dr. Vear Pompa MD; Dr. Odilon Rodríguez MD Inspector Cold Working: Signed Normal [facility] LDL calc ser/plasOrdered By: Odilon Rodríguez on 05-11-2024 Cholesterol in LDL [Mass/Vol] 59 mg/dL [facility] Comment on above: Miajiijzxp=305-787 m g/dL & Higher Nwlj=126 mg/dL or greater LDL Cholesterol, Calculated 59 mg/dL [facility] Comment on above: Rizrbvhqyj=288-765 m g/dL & Higher Hnpl=401 mg/dL or greater Lipid Profileon 05-11-2024 CHOL:HDL 2.40 Normal [facility] Comment on above: Performed By: #### L 500.4100 ####[facility] [address] [place], [place], [id number] Cholesterol [Mass/Vol] 124 mg/dL Normal <=200 [facility] Comment on above: Result Comment: Chol esterol level, Desirable <200 mg/dL Borderline high cholesterol 200-239 mg/dL High cholesterol >=240 mg/dL Recommendations of the NCEP Adult Treatment Panel for the following risk-cutoff thresholds for the [place] population. Performed By: #### L 500.4100 ####[facility] [address] [place], [address] Cholesterol in HDL [Mass/Vol] 52 mg/dL Normal [facility] Comment on above: Result Comment: Mita onal Cholesterol Education Program (NCEP) guidelines: <40 mg/dL: Low HDL-cholesterol (major risk factor for CHD) >= 60 mg/dL: High HDL-cholesterol (negative risk factor for CHD) HDL-cholesterol is affected by a number of factors, e.g. smoking, exercise, hormones, sex and age. Performed By: #### L 500.4100 ####[facility] [address] [place], [address] Cholesterol in LDL [Mass/Vol] 59 mg/dL Normal [facility] Comment on above: Result Comment: Bord zaubgj=163-956 mg/dL Higher Lvxg=961 mg/dL or greater Performed By: #### L 500.4100 ####[facility] [address] [place], [address] Cholesterol in VLDL [Mass/Vol] 13 mg/dL Normal 5-40 [facility] Comment on above: Performed By: #### L 500.4100 ####[facility] [address] [place], [address] Triglyceride [Mass/Vol] 65 mg/dL Normal [facility] Comment on above: Result Comment: The drugs N-Acetylcysteine and Metamizole may falsely depress this assay. Normal range: <150 mg/dL Borderline High: 150-199 mg/dL High: 200-499 mg/dL Very High: >500 mg/dL Performed By: #### L 500.4100 ####[facility] [address] [place], [address] Screening total cholesterol/ high density lipoprotein (HDL) cholesterol ratioOrdered By: Odilon Rodríguez on 05-11-2024 Cholesterol.total/Choles terol in HDL [Mass ratio] 2.40 {ratio} [facility] Serum or plasma cholesterol in HDL measurement (mass/volume)Ordered By: Odilon Rodríguez on 05-11-2024 Cholesterol in HDL [Mass/Vol] 52 mg/dL >40 [facility] Comment on above: National Cholesterol Education Program (NCEP) guidelines:<40 mg/dL: Low HDL-cholesterol (major risk factor for CHD)>= 60 mg/dL: High HDL-cholesterol (negative risk factor for CHD)HDL-cholesterol is affected by a number of factors, e.g. smoking, exercise, hormones, sex and age. Serum or plasma cholesterol measurement (mass/volume)Ordered By: Odilon Rodríguez on 05-11-2024 Cholesterol [Mass/Vol] 124 mg/dL <201 [facility] Comment on above: Cholesterol level, D esirable <200 mg/dLBorderline high cholesterol 200-239 mg/dLHigh cholesterol >=240 mg/dLRecommendations of the NCEP Adult Treatment Panel for the following risk-cutoff thresholds for the [place] population. Triglycerides measurementOrd ered By: Odilon Rodríguez on 05-11-2024 Triglyceride [Mass/Vol] 65 mg/dL <199 [facility] Comment on above: The drugs N-Acetylcy steine and Metamizole may falsely depress this assay. Normal range: <150 mg/dLBorderline High: 150-199 mg/dLHigh: 200-499 mg/dLVery High: >500 mg/dL Abdomen Single Viewon 2024 Abdomen Single View [facility] Imaging Services [address] [place], [place] [address] Abdomen Single View MR#: [id number] Acct: [id number] Name: MICAELA COCHRAN Rep #: [id number] : 1945 F 78 From: Luis Peralta MD PCP: Dr. Vera Pompa MD Status: ADM IN Study: Abdomen Single View Date of Exam: 05/10/24 Exam# [id number] Ordering Dr: Odilon Rodríguez MD PROCEDURE: ABDOMEN [...] Other nonacute findings detailed above. Reading Location: [place] [address] CC: Dr. Vera Pompa MD; Dr. Odilon Rodríguez MD Inspector Cold Working: Signed Normal [facility] Basic Metabolic Profile (BMP )on 05-10-2024 Anion gap [Moles/Vol] 12 mmol/L Normal 5-15 [facility] Comment on above: Performed By: #### L 506.0400, L501.51676, L501.9520 #### [facility] Laboratory [address] [place], [address] BUN/CRE 41.5 RATIO High 10-20 [facility] Comment on above: Performed By: #### L 506.0400, L501.12705, L501.9520 #### [facility] [address] [place], [address] Calcium [Mass/Vol] 9.0 mg/dL Normal 7.6-11.0 [facility] Comment on above: Performed By: #### L 506.0400, L501.51568, L501.9520 #### [facility] [address] [place], [address] Chloride [Moles/Vol] 104 mmol/L Normal 96-108 [facility] Comment on above: Performed By: #### L 506.0400, L501.42148, L501.9520 #### [facility] [address] [place], [address] CO2 [Moles/Vol] 23.6 mmol/L Normal 22.0-29.0 [facility] Comment on above: Performed By: #### L 506.0400, L501.76340, L501.9520 #### [facility] [address] [place], [address] Creatinine [Mass/Vol] 0.6 mg/dL Normal 0.6-1.0 [facility] Comment on above: Performed By: #### L 506.0400, L501.74609, L501.9520 #### [facility] [address] [place], [address] ECRCL 47.90 ml/min Normal [facility] Comment on above: Performed By: #### L 506.0400, L501.49725, L501.9520 #### [facility] [address] [place], [address] GFR/1.73 sq M.predicted among non-blacks MDRD (S/P/Bld) [Vol rate/Area] 94 mL/min/{1.73_m2} Normal >60 [facility] Comment on above: Result Comment: mL/m in/1.73m2 CKD-EPI Creatinine Equation (2020) Performed By: #### L 506.0400, L501.45993, L501.9520 #### [facility] [address] [place], [address] Glucose [Mass/Vol] 92 mg/dL Normal 70-99 [facility] Comment on above: Performed By: #### L 506.0400, L501.68322, L501.9520 #### [facility] [address] [place], [address] Potassium [Moles/Vol] 4.6 mmol/L Normal 3.3-5.1 [facility] Comment on above: Performed By: #### L 506.0400, L501.31284, L501.9520 #### [facility] [address] [place], [address] Sodium [Moles/Vol] 140 mmol/L Normal 133-145 [facility] Comment on above: Performed By: #### L 506.0400, L501.29692, L501.9520 #### [facility] [address] [place], [address] Urea nitrogen [Mass/Vol] 23 mg/dL High 4-19 [facility] Comment on above: Performed By: #### L 506.0400, L501.39865, L501.9520 #### [facility] [address] [place], [address] CBC W/Diff, Automatedon 04-15 Absolute Lymph 2.19 X10 3/uL Normal 0.83-4.51 [facility] Comment on above: Performed By: #### L 506.0400, L501.01663, L501.9520 #### [facility] [address] [place], [address] Absolute Neut 4.6 X10 3/uL Normal 2.0-7.7 [facility] Comment on above: Performed By: #### L 506.0400, L501.81854, L501.9520 #### [facility] [address] [place], [address] Basophils/100 WBC (Bld) 0.7 % Normal 0-1 [facility] Comment on above: Performed By: #### L 506.0400, L501.57498, L501.9520 #### [facility] [address] [place], [address] Eosinophils/100 WBC (Bld) 6.4 % High 0-5 [facility] Comment on above: Performed By: #### L 506.0400, L501.64784, L501.9520 #### [facility] [address] [place], [address] Erythrocyte distribution width (RBC) [Ratio] 12.9 % Normal 11.6-14.6 [facility] Comment on above: Performed By: #### L 506.0400, L501.66543, L501.9520 #### [facility] [address] [place], [address] Hematocrit (Bld) [Volume fraction] 37.2 % Normal 37-47 [facility] Comment on above: Performed By: #### L 506.0400, L501.04132, L501.9520 #### [facility] [address] [place], [address] Hemoglobin (Bld) [Mass/Vol] 12.0 g/dL Normal 12.0-15.0 [facility] Comment on above: Performed By: #### L 506.0400, L501.87866, L501.9520 #### [facility] [address] [place], [address] IG% 0.200 Normal 0.0-0.9 [facility] Comment on above: Result Comment: IG% - Immature Granulocytes (promyelocytes, myelocytes and metamyelocytes) > 1% indicates that a LEFT SHIFT is Present. Performed By: #### L 506.0400, L501.35482, L501.9520 #### [facility] [address] [place], [address] Lymphocytes/100 WBC (Bld) 26.9 % Normal 19-41 [facility] Comment on above: Performed By: #### L 506.0400, L501.67542, L501.9520 #### [facility] [address] [place], [address] MCH (RBC) [Entitic mass] 30.6 pg Normal 27.0-32.0 [facility] Comment on above: Performed By: #### L 506.0400, L501.10608, L501.9520 #### [facility] [address] [place], [address] MCHC (RBC) [Mass/Vol] 32.3 g/dL Normal 32-36 [facility] Comment on above: Performed By: #### L 506.0400, L501.38112, L501.9520 #### [facility] [address] [place], [address] MCV (RBC) [Entitic vol] 94.9 fL Normal 81-99 [facility] Comment on above: Performed By: #### L 506.0400, L501.84429, L501.9520 #### [facility] [address] [place], [address] Monocytes/100 WBC (Bld) 8.7 % Normal 0-10 [facility] Comment on above: Performed By: #### L 506.0400, L501.84429, L501.9520 #### [facility] [address] [place], [address] Neutrophils/100 WBC (Bld) 57.1 % Normal 47-70 [facility] Comment on above: Performed By: #### L 506.0400, L501.22943, L501.9520 #### [facility] [address] [place], [address] Nucleated RBC (Bld) [#/Vol] 0 10*3/uL Normal 0-5 [facility] Comment on above: Performed By: #### L 506.0400, L501.68457, L501.9520 #### [facility] [address] [place], [address] Platelet mean volume (Bld) [Entitic vol] 10.1 fL Normal 6.2-12.0 [facility] Comment on above: Performed By: #### L 506.0400, L501.87255, L501.9520 #### [facility] [address] [place], [address] Platelets (Bld) [#/Vol] 304 10*3/uL Normal 150-450 [facility] Comment on above: Performed By: #### L 506.0400, L501.17507, L501.9520 #### [facility] [address] [place], [address] RBC (Bld) [#/Vol] 3.92 10*6/uL Low 4.2-5.4 [facility] Comment on above: Performed By: #### L 506.0400, L501.48792, L501.9520 #### [facility] [address] [place], [address] RDW SD 44.9 fl High 35.1-43.9 [facility] Comment on above: Performed By: #### L 506.0400, L501.10857, L501.9520 #### [facility] [address] [place], [address] WBC (Bld) [#/Vol] 8.1 10*3/uL Normal 4.4-11.0 [facility] Comment on above: Performed By: #### L 506.0400, L501.75696, L501.9520 #### [facility] [address] [place], [address] [facility]ICA[facility] COCHRAN ([id number]) 1945 F Date Time Provider Department 05/10/24 [facility]ENEDICT[facility] During your visit today, we recorded the following information about you: Yancy Alonso RN 05/10/2024 9:27 AM Signed [facility] nurse from [facility] [phone] called in regards to raffy boyer. 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 [3602] Prescriptions as of 05/10/2024 - acetaminophen (TYLENOL) [...] Status:Closed by YANCY ALONSO on 05/10/24 Normal [facility] Basic metabolic 2000 panelon 05-09-2024 Anion gap [Moles/Vol] 12 mmol/L Normal 8-15 [facility] Comment on above: Order Comment: Speci men Type: BLOOD SPECIMENOrdering Facility: [facility] Address: [address] [place] [address] Performed By: #### 2 4320-2, ####[facility] LABORATORYCLIA [id number] [place] [address] [place] Calcium [Mass/Vol] 9.2 mg/dL Normal 8.5-10.2 [facility] Comment on above: Order Comment: Speci men Type: BLOOD SPECIMENOrdering Facility: [facility] Address: [address] [place] [address] Performed By: #### 2 4320-2, ####[facility] LABORATORYCLIA [id number] [place] [address] [place] Chloride [Moles/Vol] 108 mmol/L High 98-107 [facility] Comment on above: Order Comment: Speci men Type: BLOOD SPECIMENOrdering Facility: [facility] Address: [address] [place] [address] Performed By: #### 2 4320-2, ####[facility]ATORYCLIA [id number] [place] [address] [place] CO2 [Moles/Vol] 23 mmol/L Normal 22-30 [facility] Comment on above: Order Comment: Speci men Type: BLOOD SPECIMENOrdering Facility: [facility] Address: [address] [place] [address] Performed By: #### 2 4320-2, ####[facility]ATORYCLIA [id number] [place] [address] [place] Creatinine [Mass/Vol] 0.59 mg/dL Normal 0.58-0.96 [facility] Comment on above: Order Comment: Glendy lizama Type: BLOOD SPECIMENOrdering Facility: [facility] Address: [address] [place] [address] Performed By: #### 2 4321-2, ####[facility] LABORATORYCLIA [id number] [place] [address] [facility] Creatinine and Glomerular filtration rate.predicted panel (S/P/Bld) 94 mL/min/1.73m??? Normal >=60 [facility] Comment on above: Order Comment: Glendy lizama Type: BLOOD SPECIMENOrdering Facility: [facility] Address: [address] [place] [address] Result Comment: Reema mated Glomerular Filtration Rate [...] actual GFR. Performed By: #### 2 4321-2, ####[facility]ORATORYCLIA [id number] [place] [address] [place] Glucose [Mass/Vol] 104 mg/dL High 74-99 [facility] Comment on above: Order Comment: Glendy lizama Type: BLOOD SPECIMENOrdering Facility: [facility] Address: [address] [place] [address] Result Comment: The [place] Diabetes Association (ADA) provides guidance for cutoff [...] Standards of Medical Care in Diabetes 2016, [place] [employer] Association. Diabetes Care. 2016.39(Suppl 1). Performed By: #### 2 1-2, ####[facility] LABORATORYCLIA [id number] [place] [address] [place] Potassium [Moles/Vol] 4.6 mmol/L Normal 3.7-5.1 [facility] Comment on above: Order Comment: Glendy lizama Type: BLOOD SPECIMENOrdering Facility: [facility] Address: [address] [place] [address] Performed By: #### 2 4320-04, ####[facility] LABORATORYCLIA [id number] [address] STATES OF [facility] Sodium [Moles/Vol] 143 mmol/L Normal 136-144 [facility] Comment on above: Order Comment: Glendy lizama Type: BLOOD SPECIMENOrdering Facility: [facility] Address: [address] [place] [address] Performed By: #### 2 4320-04, ####[facility] LABORATORYCLIA [id number] [address] [place] Urea nitrogen [Mass/Vol] 23 mg/dL High 7-21 [facility] Comment on above: Order Comment: Glendy lizama Type: BLOOD SPECIMENOrdering Facility: [facility] Address: [address] [place] [address] Performed By: #### 2 4320-04, ####[facility] LABORATORYCLIA [id number] [address] [place] CBC panel Auto (Bld)on 05-09 Erythrocyte distribution width (RBC) [Ratio] 12.9 % Normal 11.5-15.0 [facility] Comment on above: Order Comment: Glendy lizama Type: BLOOD SPECIMENOrdering Facility: [facility] Address: [address] [place] [address] Performed By: #### 5 8410-2 ####[facility] LABORATORYCLIA [id number] [address] Hematocrit (Bld) [Volume fraction] 37.8 % Normal 36.0-46.0 [facility] Comment on above: Order Comment: Speci men Type: BLOOD SPECIMENOrdering Facility: [facility] Address: [address] [place] [address] Performed By: #### 5 8410-2 ####[facility] LABORATORYCLIA [id number] [address] OF [facility] Hemoglobin (Bld) [Mass/Vol] 12.2 g/dL Normal 11.5-15.5 [facility] Comment on above: Order Comment: Speci men Type: BLOOD SPECIMENOrdering Facility: [facility] Address: [address] [place] [address] Performed By: #### 5 8410-2 ####[facility] LABORATORYCLIA [id number] [address] OF [facility] MCH (RBC) [Entitic mass] 30.6 pg Normal 26.0-34.0 [facility] Comment on above: Order Comment: Speci men Type: BLOOD SPECIMENOrdering Facility: [facility] Address: [address] [place] [address] Performed By: #### 5 8410-2 ####[facility] LABORATORYCLIA [id number] [address] [place] MCHC (RBC) [Mass/Vol] 32.3 g/dL Normal 30.5-36.0 [facility] Comment on above: Order Comment: Speci men Type: BLOOD SPECIMENOrdering Facility: [facility] Address: [address] [place] [address] Performed By: #### 5 8410-2 ####[facility] LABORATORYCLIA [id number] [address] [place] MCV (RBC) [Entitic vol] 94.7 fL Normal 80.0-100.0 [facility] Comment on above: Order Comment: Speci men Type: BLOOD SPECIMENOrdering Facility: [facility] Address: [address] [place] [address] Performed By: #### 5 8410-2 ####[facility] LABORATORYCLIA [id number] [place] [address] [place] Nucleated RBC (Bld) [#/Vol] 10*3/uL Normal <0.01 [facility] Comment on above: Order Comment: Speci men Type: BLOOD SPECIMENOrdering Facility: [facility] Address: [address] [place] [address] Performed By: #### 5 8410-2 ####[facility] LABORATORYCLIA [id number] [place] [address] [place] Platelet mean volume (Bld) [Entitic vol] 10.0 fL Normal 9.0-12.7 [facility] Comment on above: Order Comment: Speci men Type: BLOOD SPECIMENOrdering Facility: [facility] Address: [address] [place] [address] Performed By: #### 5 8410-2 ####[facility] LABORATORYCLIA [id number] [place] [address] [place] Platelets (Bld) [#/Vol] 295 10*3/uL Normal 150-400 [facility] Comment on above: Order Comment: Speci men Type: BLOOD SPECIMENOrdering Facility: [facility] Address: [address] [place] [address] Performed By: #### 5 8410-2 ####[facility] LABORATORYCLIA [id number] [place] [address] [place] RBC (Bld) [#/Vol] 3.99 10*6/uL Normal 3.90-5.20 [facility] Comment on above: Order Comment: Speci men Type: BLOOD SPECIMENOrdering Facility: [facility] Address: [address] [place] [address] Performed By: #### 5 8410-2 ####[facility] LABORATORYCLIA [id number] [place] [address] [place] WBC (Bld) [#/Vol] 8.68 10*3/uL Normal 3.70-11.00 [facility] Comment on above: Order Comment: Glendy lizama Type: BLOOD SPECIMENOrdering Facility: [facility] Address: [address] [place] [address] Performed By: #### 5 8410-2 ####[facility] LABORATORYCLIA [id number] [place] [address] [facility] CNDSon 05-09-2024 CNDS HNO ID: [id number] Author: SILVINO JONES MD Service: General Surgery [...] Time: 9:27 AM DISCHARGE SUMMARY PATIENT NAME: Micaela Cochran Code Status: Full Code Highest Readmission [...] unit under the trauma surgery service at [facility] on 05/05/2024 after sustaining a ground level [...] physical therapy who recommended placement at a custodial facility. She was deemed medically stable for discharge to a custodial facility on 05/09/2024. She will require follow [...] No pending results Discharge Disposition Discharge Disposition: [facility] - Less than 30 Days Activity [...] you become constipated, you may use any kmuw-mcr-ofacmtd treatment such as Milk of Magnesia, Sennakot, Prune Juice, Suppositories, etc. in addition to the stool softener/fiber supplement Keep area at rest and elevate it to reduce pain and swelling No alcohol or driving while on pain medication Use acetaminophen (Tylenol) as recommended on the bottle Use the dispensed medication (see prescription) You should use an ctwy-dfb-jhnnhkd stool softener (Docusate sodium) and/or a fiber [...] bleeding You (more content not included)... Normal [facility] Magnesium SerPl-mCncon 05-09 Magnesium [Mass/Vol] 1.9 mg/dL Normal 1.7-2.3 [facility] Comment on above: Order Comment: Speci men Type: BLOOD SPECIMENOrdering Facility: [facility] Address: [address] [place] [address] Performed By: #### 2 4321-2, 13634-7 ####[facility] LABORATORYCLIA [id number] [place] [id number] [place] THERAPY NTon 05-09-2024 THERAPY NT HNO ID: [id number] Author: JENY MARSHALL PT Service: Physical Therapy Author Type: Emergency Planning And Response Manager Type: Therapy (PT/OT/Speech/Resp) Filed: 05/09/2024 16:23 Note Text: Attestation signed by Jeny Marshall, PT at 05/09/2024 4:23 PM I reviewed and agree with the documentation corresponding to this therapy visit. SIGNATURE: Jeny Marshall, PT DATE: May 09, 2024 TIME: 4:23 PM Physical Therapy Treatment Summary SERVICE DATE: 05/09/2024 SERVICE TIME: 1008 to 1033 ROOM: [place] [address] PT 6 Clicks Score: 15 DISCHARGE RECOMMENDATIONS [...] gait and mobility-other TREATMENT INTERVENTIONS Therapeutic Exercise (20858), Therapeutic Activity (54514) Therapeutic Exercise (23859) Treatment Minutes: 14 $ Therapeutic Exercise (54350) Billed Units: 1 unit Patient completed BLE AROM (ankle pump, quad set, gluteal set, heel slide, hip abd/add to neutral, short arc quad, hip adductor squeeze) rib mobilization shoulder shrugs, rolls, retraction, shoulder elevated with hands clasped in front of body x 10 reps with cuing/set up amount of assist. Therapeutic Activity (71581) Treatment Minutes: 11 $ Therapeutic Activity (89916) Billed Units: 1 unit cuing/assist with rolling, [...] Wheeled Walker General Deviations/Observatio ns: Antalgic gait, Sallie decreased, Difficulty changing direction/turning, Narrow Base of Support, Non-functional gait speed, Step lengt (more content not included)... Normal [facility] Basic metabolic 2000 panelon 05-08-2024 Anion gap [Moles/Vol] 10 mmol/L Normal 8-15 [facility] Comment on above: Order Comment: Speci men Type: BLOOD SPECIMENOrdering Facility: [facility] Address: [address] [place] [address] Performed By: #### 1 9123-9, 84405-3 ####[facility] LABORATORYCLIA [id number] [place] [address] [place] Calcium [Mass/Vol] 8.9 mg/dL Normal 8.5-10.2 [facility] Comment on above: Order Comment: Speci men Type: BLOOD SPECIMENOrdering Facility: [facility] Address: [address] [place] [address] Performed By: #### 1 91239, 65820-1 ####[facility] LABORATORYCLIA [id number] [place] [address] [place] Chloride [Moles/Vol] 102 mmol/L Normal 98-107 [facility] Comment on above: Order Comment: Speci men Type: BLOOD SPECIMENOrdering Facility: [facility] Address: [address] [place] [address] Performed By: #### 1 9123-9, 92665-8 ####[facility] LABORATORYCLIA [id number] [place] [address] [place] CO2 [Moles/Vol] 26 mmol/L Normal 22-30 [facility] Comment on above: Order Comment: Speci men Type: BLOOD SPECIMENOrdering Facility: [facility] Address: [address] [place] [address] Performed By: #### 1 9123-9, 58332-1 ####[facility] LABORATORYCLIA [id number] [place] [address] [place] Creatinine [Mass/Vol] 0.69 mg/dL Normal 0.58-0.96 [facility] Comment on above: Order Comment: Glendy lizama Type: BLOOD SPECIMENOrdering Facility: [facility] Address: [address] [place] [address] Performed By: #### 1 9123-9, 47503-0 ####[facility] LABORATORYCLIA [id number] [address] [place] Creatinine and Glomerular filtration rate.predicted panel (S/P/Bld) 90 mL/min/1.73m??? Normal >=60 [facility] Comment on above: Order Comment: Glendy lizama Type: BLOOD SPECIMENOrdering Facility: [facility] Address: [address] [place] [address] Result Comment: Reema mated Glomerular Filtration Rate [...] actual GFR. Performed By: #### 1 9123-9, 15405-0 ####[facility] LABORATORYIA [id number] [place] [address] [place] Glucose [Mass/Vol] 120 mg/dL High 74-99 [facility] Comment on above: Order Comment: Glendy dl Type: BLOOD SPECIMENOrdering Facility: [facility] Address: [address] [place] [address] Result Comment: The [place] Diabetes Association (ADA) provides guidance for cutoff [...] Standards of Medical Care in Diabetes 2016, [place] [employer]. Diabetes Care. 2016.39(Suppl 1). Performed By: #### 1 9123-9, 84294-4 ####[facility] LABORATORYCLIA [id number] [address] STATES OF [facility] Potassium [Moles/Vol] 4.2 mmol/L Normal 3.7-5.1 [facility] Comment on above: Order Comment: Speci men Type: BLOOD SPECIMENOrdering Facility: [facility] Address: [address] [place] [address] Performed By: #### 1 9123-9, 04911-2 ####[facility] LABORATORYCLIA [id number] [address] Sodium [Moles/Vol] 138 mmol/L Normal 136-144 [facility] Comment on above: Order Comment: Madaii dl Type: BLOOD SPECIMENOrdering Facility: [facility] Address: [address] [place] [address] Performed By: #### 1 9123-9, 62355-3 ####[facility] LABORATORYCLIA [id number] [address] STATES OF [facility] Urea nitrogen [Mass/Vol] 26 mg/dL High 7-21 [facility] Comment on above: Order Comment: Speci men Type: BLOOD SPECIMENOrdering Facility: [facility] Address: [address] [place] [address] Performed By: #### 1 9123-9, 89249-4 ####[facility] LABORATORYCLIA [id number] [address] OF [facility] CASE MANAGEMon 05-08-2024 CASE MANAGEM HNO ID: [id number] Author: MYRTLE PICKENS, ? Service: ? Author Type: ? Type: Care Mgt Progress Note Filed: 05/08/2024 14:26 Note Text: [facility] PRECERT NOTE [employer] MEDICARE PPO approved [facility] for [facility]. Precert approved through 05/14. For any additional questions regarding approvals, transport or care management needs, please contact the CM assigned to this patient in the Treatment Team. SIGNATURE: Myrtle Pickens DATE: May 08, 2024 TIME: 2:25 PM Normal [facility] CBC panel Auto (Bld)on 05-08 Erythrocyte distribution width (RBC) [Ratio] 12.9 % Normal 11.5-15.0 [facility] Comment on above: Order Comment: Speci men Type: BLOOD SPECIMENOrdering Facility: [facility] Address: [address] [place] [address] Performed By: #### 5 8410-2 ####[facility] LABORATORYCLIA [id number] [address] OF [facility] Hematocrit (Bld) [Volume fraction] 42.6 % Normal 36.0-46.0 [facility] Comment on above: Order Comment: Speci men Type: BLOOD SPECIMENOrdering Facility: [facility] Address: [address] [place] [address] Performed By: #### 5 8410-2 ####[facility] LABORATORYCLIA [id number] [address] OF [facility] Hemoglobin (Bld) [Mass/Vol] 13.4 g/dL Normal 11.5-15.5 [facility] Comment on above: Order Comment: Speci men Type: BLOOD SPECIMENOrdering Facility: [facility] Address: [address] [place] [address] Performed By: #### 5 8410-2 ####[facility] LABORATORYCLIA [id number] [address] [place] MCH (RBC) [Entitic mass] 30.6 pg Normal 26.0-34.0 [facility] Comment on above: Order Comment: Speci men Type: BLOOD SPECIMENOrdering Facility: [facility] Address: [address] [place] [address] Performed By: #### 5 8410-2 ####[facility] LABORATORYCLIA [id number] [address] [place] MCHC (RBC) [Mass/Vol] 31.5 g/dL Normal 30.5-36.0 [facility] Comment on above: Order Comment: Speci men Type: BLOOD SPECIMENOrdering Facility: [facility] Address: [address] [place] [address] Performed By: #### 5 8410-2 ####[facility] LABORATORYCLIA [id number] [address] MCV (RBC) [Entitic vol] 97.3 fL Normal 80.0-100.0 [facility] Comment on above: Order Comment: Speci men Type: BLOOD SPECIMENOrdering Facility: [facility] Address: [address] [place] [address] Performed By: #### 5 8410-2 ####[facility] LABORATORYCLIA [id number] [address] [place] Nucleated RBC (Bld) [#/Vol] 10*3/uL Normal <0.01 [facility] Comment on above: Order Comment: Speci men Type: BLOOD SPECIMENOrdering Facility: [facility] Address: [address] [place] [address] Performed By: #### 5 8410-2 ####[facility] LABORATORYCLIA [id number] [address] STATES [facility] Platelet mean volume (Bld) [Entitic vol] 9.9 fL Normal 9.0-12.7 [facility] Comment on above: Order Comment: Speci men Type: BLOOD SPECIMENOrdering Facility: [facility] Address: [address] [place] [address] Performed By: #### 5 8410-2 ####[facility] LABORATORYCLIA [id number] [address] Platelets (Bld) [#/Vol] 289 10*3/uL Normal 150-400 [facility] Comment on above: Order Comment: Speci men Type: BLOOD SPECIMENOrdering Facility: [facility] Address: [address] [place] [address] Performed By: #### 5 8410-2 ####[facility] LABORATORYCLIA [id number] [place] [address] [place] RBC (Bld) [#/Vol] 4.38 10*6/uL Normal 3.90-5.20 [facility] Comment on above: Order Comment: Glendy lizama Type: BLOOD SPECIMENOrdering Facility: [facility] Address: [address] [place] [address] Performed By: #### 5 8410-2 ####[facility] LABORATORYCLIA [id number] [address] STATES OF [facility] WBC (Bld) [#/Vol] 9.93 10*3/uL Normal 3.70-11.00 [facility] Comment on above: Order Comment: Glendy lizama Type: BLOOD SPECIMENOrdering Facility: [facility] Address: [address] [place] [address] Performed By: #### 5 8410-2 ####[facility] LABORATORYCLIA [id number] [address] CONSULTon 05-08-2024 CONSULT HNO ID: [id number] Author: SHANNAN BREEN MD Service: General Surgery Author Type: Resident Type: Consults Filed: 05/14/2024 22:29 Note Text: Attestation signed by Shannan Breen MD at 05/14/2024 10:29 PM Patient was seen and evaluated by myself on this day May 08, 2024. I agree with the presented documentation unless specifically noted. 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 Her [...] Level on admission: 99.9 RibScore: 2 Ni [place], Julian B, Renata M, Elizabeth J, Sameer RT, Biffl W, Maikel J, Valentín CC, Yarely C, Marlo C, Wilson EE, Kristin GJ, Jean FM. RibScore: A novel radiographic score based on fracture pattern that predicts pneumonia, respiratory failure, and tracheostomy. J Trauma Acute Care Surg. 2016 Mar;80(1):95-101. doi: 10.1097/TA.2311623160 676748. PMID: 72343454. One point for each of the following: six or more ribs fractured, bilateral fractures, flail chest, three or more severely (bicortical) displaced fractures, first rib fracture, and at least one fracture in each of the three anatomic areas. RFF Index: 14.6 (for supplemental O2, osteoarthritis) Zbigniew Davila, Nichol BJ, Britney EB, Paula L, Snehal Wall, David DA, Pa YOUNG. Rib Fracture Frailty Index: A risk stratification tool for geriatric patients with multiple rib fractures. J Trauma Acute Care Surg. 2020Feb 11;91(6):932-939. doi: 10.1097/TA.3715028722 493100. PMID: 58033189. Contraindications: Shock: No Severe TBI: No Acute [place]: No Relative Contraindications: Existing injuries that take [...] control. SIGNATURE: Duane Ramon MD PATIENT NAME: Micaela Cochran DATE: May 08, 2024 TIME: 12:54 PM Pager: [phone] Subjective Micaela Cochran is a 78 year old female with a history of migraines, , and L hip fracture (more content not included)... Normal [facility] ECHO LIMITEDon 05-08-2024 ECHO LIMITED Echocardiography Report: [facility] Date of service: 05/08/2024 10:10:36 AM [facility] Ordering physician: DAVID HOROWITZ Indication: Sustained atrial fibrillation Technologist: Radha Gilliam [facility] Interpreting physician: Forrest Coleman MD PATIENT: Name: MRS. MICAELA COCHRAN : 1945 Age: 78 years Gender: [...] * * Final * * * CC [facility] : [id number] amicsSISUID Normal [facility] Magnesium SerPl-mCncon 05-08 Magnesium [Mass/Vol] 2.1 mg/dL Normal 1.7-2.3 [facility] Comment on above: Order Comment: Speci men Type: BLOOD SPECIMENOrdering Facility: [facility] Address: [address] [place] [address] Performed By: #### 1 9123-9, 29903-9 ####[facility] LABORATORYCLIA [id number] [place] [address] [facility] THERAPY NTon 05-08-2024 THERAPY NT HNO ID: [id number] Author: JENY MARSHALL, PT Service: Physical Therapy Author Type: Physical Therapist Type: Therapy (PT/OT/Speech/Resp) Filed: 05/08/2024 14:00 Note Text: Physical Therapy Treatment Summary SERVICE DATE: 05/08/2024 SERVICE TIME: 1314 to 1331 ROOM: [place] [address] PT 6 Clicks Score: 12 DISCHARGE RECOMMENDATIONS [...] gait and mobility-other TREATMENT INTERVENTIONS Therapeutic Activity (16816) Timed Code Treatment (minutes): 17 Skilled Treatment Time (minutes): 17 Therapeutic Activity (15235) Treatment Minutes: 17 $ Therapeutic Activity (00927) Billed Units: 1 unit Cues for log [...] Wheeled Walker General Deviations/Observatio ns: Antalgic gait, Sallie decreased, Flexed trunk posture, Step length decreased [...] Functional Mobility Training, Balance Training, Strengthening SIGNATURE: Jeny Marshall PT PATIENT NAME: Micaela Cochran DATE: May 08, 2024 TIME: 1:59 PM Normal [facility] Basic metabolic 2000 panelon 05-07-2024 Anion gap [Moles/Vol] 10 mmol/L Normal 8-15 [facility] Comment on above: Order Comment: Speci men Type: BLOOD SPECIMENOrdering Facility: [facility] Address: [address] [place] [address] Performed By: #### 2 4321-2, ####[facility] LABORATORYCLIA [id number] [place] [address] [place] Calcium [Mass/Vol] 8.7 mg/dL Normal 8.5-10.2 [facility] Comment on above: Order Comment: Speci men Type: BLOOD SPECIMENOrdering Facility: [facility] Address: [address] [place] [address] Performed By: #### 2 4320-2, ####[facility]ORATORYCLIA [id number] [place] [address] [place] Chloride [Moles/Vol] 106 mmol/L Normal 98-107 [facility] Comment on above: Order Comment: Speci men Type: BLOOD SPECIMENOrdering Facility: [facility] Address: [address] [place] [address] Performed By: #### 2 4320-2, ####[facility] [facility]ORATORYCLIA [id number] [place] [address] [place] CO2 [Moles/Vol] 24 mmol/L Normal 22-30 [facility] Comment on above: Order Comment: Speci men Type: BLOOD SPECIMENOrdering Facility: [facility] Address: [address] [place] [address] Performed By: #### 2 4320-2, ####[facility] LABORATORYCLIA [id number] [place] [address] [place] Creatinine [Mass/Vol] 0.65 mg/dL Normal 0.58-0.96 [facility] Comment on above: Order Comment: Speci men Type: BLOOD SPECIMENOrdering Facility: [facility] Address: [address] [place] [address] Performed By: #### 2 4321-2, 14614-2 ####[facility] CITYIA [id number] [place] [id number] [facility] [place] Creatinine and Glomerular filtration rate.predicted panel (S/P/Bld) 91 mL/min/1.73m??? Normal >=60 [facility] Comment on above: Order Comment: Glendy lizama Type: BLOOD SPECIMENOrdering Facility: [facility] Address: [address] [place] [address] Result Comment: Reema mated Glomerular Filtration Rate [...] actual GFR. Performed By: #### 2 4321-2, 72026-8 ####[facility] CITYIA [id number] [place] [address] [place] Glucose [Mass/Vol] 117 mg/dL High 74-99 [facility] Comment on above: Order Comment: Glendy lizama Type: BLOOD SPECIMENOrdering Facility: [facility] Address: [address] [place] [address] Result Comment: The [place] Diabetes Association (ADA) provides guidance for cutoff [...] Standards of Medical Care in Diabetes 2016, [place] [employer]. Diabetes Care. 2016.39(Suppl 1). Performed By: #### 2 4321-2, ####[facility]ORATORYCLIA [id number] [place] [address] [place] Potassium [Moles/Vol] 4.3 mmol/L Normal 3.7-5.1 [facility] Comment on above: Order Comment: Speci men Type: BLOOD SPECIMENOrdering Facility: [facility] Address: [address] [place] [address] Performed By: #### 2 4321-2, ####[facility] LABORATORYCLIA [id number] [place] [address] [place] Sodium [Moles/Vol] 140 mmol/L Normal 136-144 [facility] Comment on above: Order Comment: Speci men Type: BLOOD SPECIMENOrdering Facility: [facility] Address: [address] [place] [address] Performed By: #### 2 4321-2, ####[facility] LABORATORYCLIA [id number] [address] STATES OF [facility] Urea nitrogen [Mass/Vol] 17 mg/dL Normal 7-21 [facility] Comment on above: Order Comment: Speci men Type: BLOOD SPECIMENOrdering Facility: [facility] Address: [address] [place] [address] Performed By: #### 2 4321-2, ####[facility] LABORATORYCLIA [id number] [address] STATES OF [facility] CBC panel Auto (Bld)on 05-07 Erythrocyte distribution width (RBC) [Ratio] 12.8 % Normal 11.5-15.0 [facility] Comment on above: Order Comment: Speci men Type: BLOOD SPECIMENOrdering Facility: [facility] Address: [address] [place] [address] Performed By: #### 5 8410-2 ####[facility] LABORATORYCLIA [id number] [address] [place] Hematocrit (Bld) [Volume fraction] 38.5 % Normal 36.0-46.0 [facility] Comment on above: Order Comment: Speci men Type: BLOOD SPECIMENOrdering Facility: [facility] Address: [address] [place] [address] Performed By: #### 5 8410-2 ####[facility] LABORATORYCLIA [id number] [address] STATES OF [facility] Hemoglobin (Bld) [Mass/Vol] 12.4 g/dL Normal 11.5-15.5 [facility] Comment on above: Order Comment: Speci men Type: BLOOD SPECIMENOrdering Facility: [facility] Address: [address] [place] [address] Performed By: #### 5 8410-2 ####[facility] LABORATORYCLIA [id number] [address] [place] MCH (RBC) [Entitic mass] 30.9 pg Normal 26.0-34.0 [facility] Comment on above: Order Comment: Speci men Type: BLOOD SPECIMENOrdering Facility: [facility] Address: [address] [place] [address] Performed By: #### 5 8410-2 ####[facility] LABORATORYCLIA [id number] [address] OF [facility] MCHC (RBC) [Mass/Vol] 32.2 g/dL Normal 30.5-36.0 [facility] Comment on above: Order Comment: Speci men Type: BLOOD SPECIMENOrdering Facility: [facility] Address: [address] [place] [address] Performed By: #### 5 8410-2 ####[facility] LABORATORYCLIA [id number] [address] [place] MCV (RBC) [Entitic vol] 96.0 fL Normal 80.0-100.0 [facility] Comment on above: Order Comment: Speci men Type: BLOOD SPECIMENOrdering Facility: [facility] Address: [address] [place] [address] Performed By: #### 5 8410-2 ####[facility] LABORATORYCLIA [id number] [address] [place] Nucleated RBC (Bld) [#/Vol] 10*3/uL Normal <0.01 [facility] Comment on above: Order Comment: Speci men Type: BLOOD SPECIMENOrdering Facility: [facility] Address: [address] [place] [address] Performed By: #### 5 8410-2 ####[facility] LABORATORYCLIA [id number] [place] [address] [place] Platelet mean volume (Bld) [Entitic vol] 10.1 fL Normal 9.0-12.7 [facility] Comment on above: Order Comment: Speci men Type: BLOOD SPECIMENOrdering Facility: [facility] Address: [address] [place] [address] Performed By: #### 5 8410-2 ####[facility] LABORATORYCLIA [id number] [address] [place] Platelets (Bld) [#/Vol] 302 10*3/uL Normal 150-400 [facility] Comment on above: Order Comment: Speci men Type: BLOOD SPECIMENOrdering Facility: [facility] Address: [address] [place] [address] Performed By: #### 5 8410-2 ####[facility] LABORATORYCLIA [id number] [place] [address] [place] RBC (Bld) [#/Vol] 4.01 10*6/uL Normal 3.90-5.20 [facility] Comment on above: Order Comment: Speci men Type: BLOOD SPECIMENOrdering Facility: [facility] [facility] Address: [address] [place] [address] Performed By: #### 5 8410-2 ####[facility] LABORATORYCLIA [id number] [place] [address] [place] WBC (Bld) [#/Vol] 10.52 10*3/uL Normal 3.70-11.00 [facility] Comment on above: Order Comment: Speci men Type: BLOOD SPECIMENOrdering Facility: [facility] Address: [address] [place], [place] [address], [place] [address] Performed By: #### 5 8410-2 ####[facility] LABORATORYWH[facility] [id number] [place] [id number] [facility] [place] CONSULT PROGon 05-07-2024 CONSULT PROG HNO ID: [id number] Author: CRISSY GODDARD APRN.TECHNICAL STENOGRAPHER Service: Neurosurgery Author Type: Nurse Practitioner Type: [...] making for today's visit. SIGNATURE: Crissy Goddard APRN.TECHNICAL STENOGRAPHER PATIENT NAME: Micaela Cochran DATE: May 07, 2024 TIME: 10:21 AM Pager: [phone] Normal [facility] Magnesium SerPl-mCncon 05-07 Magnesium [Mass/Vol] 1.9 mg/dL Normal 1.7-2.3 [facility] Comment on above: Order Comment: Speci men Type: BLOOD SPECIMENOrdering Facility: [facility] Address: [address] [place] [address] Performed By: #### 2 4321-2, 56975-3 ####[facility] LABORATORYCLIA [id number] [place] [address] [place] STAPHYLOCOCCUS AUREUS AND MR SA SCREEN, PCR, NASALon 05-07-2024 S. aureus and MRSA panel LAVERNE+probe (Nose) Not detected Normal Not Detected [facility] Comment on above: Order Comment: Speci men Type: SWABOrdering Facility: [facility] Address: [address] [place] [address] Performed By: #### S APCR ####[facility] LABORATORYCLIA [id number] [place] [id number] [place] THERAPY NTon 05-07-2024 THERAPY NT HNO ID: [id number] Author: JENY MARSHALL, PT Service: Physical Therapy Author Type: Physical Therapist Type: Therapy (PT/OT/Speech/Resp) Filed: 05/07/2024 15:07 Note Text: Physical Therapy Evaluation Summary SERVICE DATE: 05/07/2024 SERVICE TIME: 1421 to 1436 ROOM: [place] [address] PT 6 Clicks Score: 14 DISCHARGE RECOMMENDATIONS [...] Skilled Treatment Time (minutes): 15 $ Evaluation-Moderate (91684) Billed Units: 1 unit Cues for log [...] Wheeled Walker General Deviations/Observatio ns: Antalgic gait, Sallie decreased, Flexed trunk posture, Step length decreased [...] Functional Mobility Training, Balance Training, Strengthening SIGNATURE: Jeny Marshall PT PATIENT NAME: Micaela Cochran DATE: May 07, 2024 TIME: 3:04 PM Normal [facility] THERAPY NT HNO ID: [id number] Author: TISH NAVARRO OTR/Ricardo Service: Occupational Therapy Author Type: Occupational Therapist Type: Therapy (PT/OT/Speech/Resp) Filed: 05/07/2024 15:05 Note Text: Occupational Therapy Evaluation Summary SERVICE DATE: 05/07/2024 SERVICE TIME: 1437 to 1452 ROOM: [place] [address] OT 6 Clicks Score: 14 DISCHARGE RECOMMENDATIONS [...] Time (minutes): 15 $ Evaluation - Moderate (49113) Billed Units: 1 unit TRAINING AND EDUCATION [...] Self Care/Home Management, Functional Mobility Training SIGNATURE: Tish Navarro OTR/L PATIENT NAME: Micaela Cochran DATE: May 07, 2024 TIME: 3:03 PM Normal [facility] THERAPY NT HNO ID: [id number] Author: JENY MARSHALL PT Service: Physical Therapy Author Type: Physical Therapist Type: Therapy (PT/OT/Speech/Resp) Filed: 05/07/2024 11:38 Note Text: PHYSICAL THERAPY MISSED VISIT SERVICE DATE: 05/07/2024 SERVICE TIME: 0837 ROOM: [place] [address] Patient not seen due to Clinical Appropriateness (brace has not arrived yet). SIGNATURE: Jeny Marshall PT PATIENT NAME: Micaela Cochran DATE: May 07, 2024 TIME: 9:00 AM PHYSICAL THERAPY MISSED VISIT SERVICE DATE: 05/07/2024 SERVICE TIME: 1134 ROOM: [place] [address] Patient not seen due to Test / Procedure. SIGNATURE: Jeny Marshall PT PATIENT NAME: Micaela Cochran DATE: May 07, 2024 TIME: 11:38 AM Normal [facility] XR THORACO LUMBAR JNCT 2V AP /LATon [...] kyphosis. Findings compatible with constipation again noted. Inspector Cold Working: PSCB Transcribe Date/Time: May 08 2024 7:46A Dictated by : ANDREI DELUCA MD This examination was interpreted and the report reviewed and electronically signed by: ANDREI DELUCA MD on May 08 2024 7:51AM EST [id number] N Normal [facility] 25([place])D3 [facility] 25-hydroxyvitamin D3 [Mass/Vol] 99.9 ng/mL Normal >=30.0 [facility] Comment on above: Order Comment: Speci men Type: BLOOD SPECIMENOrdering Facility: [facility] Address: [address] [place] [address] Result Comment: Clas sification of 25 [place] Vitamin D status: Deficiency: <= 20.0 ng/ml. Insufficiency: 21.0-29.0 ng/ml. Sufficiency: >= 30.0 ng/ml. Performed By: #### 1 989-3 ####[facility] LABORATORYCLIA [id number] [address] [place] ALLIED HEALTH 05-06-2024 ALLIED HEALTH HNO ID: [id number] Author: MARIANNE PHILLIPS RT(R) Service: Radiology Author Type: Technologist Type: Allied Health Filed: 05/06/2024 09:08 Note Text: Radiology Service Progress Note PATIENT NAME: Micaela Cochran DATE OF SERVICE: May 06, 2024 [...] PATIENT PRESENTS WITH AN IMPLANTABLE OR ATTACHED POSTMASTER RELIEF: No RADIOLOGY DEPARTMENT: MR; Exam(s) Completed: Spine: Cervical spine, Thoracic spine, and Lumbar spine PERIPHERAL IV DATA: Not applicable SIGNED BY: RT Landon(R) May 06, 2024 9:08 AM Normal [facility] ALLIED [facility] HNO ID: [id number] Author: KAMLESH LAGOS RT(R) Service: Radiology Author Type: Technologist Type: Allied Health Filed: 05/06/2024 02:24 Note Text: Radiology Service Progress Note PATIENT NAME: Micaela Cochran DATE OF SERVICE: May 06, 2024 [...] PATIENT PRESENTS WITH AN IMPLANTABLE OR ATTACHED POSTMASTER RELIEF: No RADIOLOGY DEPARTMENT: CT; Exam(s) Completed: Brain and Spine PERIPHERAL IV DATA: Inpatient: see LDA documentation SIGNED BY: Kamlesh Lagos, RT(R) May 06, 2024 2:23 AM Normal [facility] Amylase SerPl-cCncon 025 Amylase [Catalytic activity/Vol] 137 U/L High 30-104 [facility] Comment on above: Order Comment: Speci men Type: BLOOD SPECIMENOrdering Facility: [facility] Address: [address] [place] [address] Performed By: #### 3 040-3, 1798-8 ####[facility] LABORATORYCLIA [id number] [place] [address] [place] Basic metabolic 2000 panelon 05-06-2024 Anion gap [Moles/Vol] 16 mmol/L High 8-15 [facility] Comment on above: Order Comment: Speci men Type: BLOOD SPECIMENOrdering Facility: [facility] Address: [address] [place] [address] Performed By: #### 2 4321-2, , 2776-03 ####[facility] LABORATORYCLIA [id number] [place] [address] [place] Calcium [Mass/Vol] 8.9 mg/dL Normal 8.5-10.2 [facility] Comment on above: Order Comment: Speci men Type: BLOOD SPECIMENOrdering Facility: [facility] Address: [address] [place] [address] Performed By: #### 2 4321-2, , 2776-03 ####[facility] LABORATORYCLIA [id number] [place] [address] [place] Chloride [Moles/Vol] 104 mmol/L Normal 98-107 [facility] Comment on above: Order Comment: Speci men Type: BLOOD SPECIMENOrdering Facility: [facility] Address: [address] [place] [address] Performed By: #### 2 4321-2, , 2776- ####[facility] LABORATORYCLIA [id number] [place] [address] [place] CO2 [Moles/Vol] 19 mmol/L Low 22-30 [facility] Comment on above: Order Comment: Speci men Type: BLOOD SPECIMENOrdering Facility: [facility] Address: [address] [place] [address] Performed By: #### 2 4321-2, , 2776-03 ####[facility] LABORATORYCLIA [id number] [place] [address] [place] Creatinine [Mass/Vol] 0.52 mg/dL Low 0.58-0.96 [facility] Comment on above: Order Comment: Speci men Type: BLOOD SPECIMENOrdering Facility: [facility] Address: [address] [place] [address] Performed By: #### 2 4321-2, , 2776-03 ####[facility]CL[facility] [id number] [address] Creatinine and Glomerular filtration rate.predicted panel (S/P/Bld) 96 mL/min/1.73m??? Normal >=60 [facility] Comment on above: Order Comment: Speci men Type: BLOOD SPECIMENOrdering Facility: [facility] Address: [address] [place] [address] Result Comment: Reema mated Glomerular Filtration Rate [...] actual GFR. Performed By: #### 2 4321-2, , 2776-03 ####[facility] LABORATORYCLIA [id number] [place] [id number] [place] Glucose [Mass/Vol] 156 mg/dL High 74-99 [facility] Comment on above: Order Comment: Speci men Type: BLOOD SPECIMENOrdering Facility: [facility] Address: [address] [place] [address] Result Comment: The [place] Diabetes [employer] (ADA) provides guidance for cutoff [...] Standards of Medical Care in Diabetes 2016, [place] [employer]. Diabetes Care. 2016.39(Suppl 1). Performed By: #### 2 4321-2, , 2776-03 ####[facility] LABORATORYCLIA [id number] [place] [address] [place] Potassium [Moles/Vol] 4.2 mmol/L Normal 3.7-5.1 [facility] Comment on above: Order Comment: Speci men Type: BLOOD SPECIMENOrdering Facility: [facility] Address: [address] [place] [address] Performed By: #### 2 4321-2, , 2776-03 ####[facility] LABORATORYCLIA [id number] [place] [address] [place] Sodium [Moles/Vol] 139 mmol/L Normal 136-144 [facility] Comment on above: Order Comment: Speci men Type: BLOOD SPECIMENOrdering Facility: [facility] Address: [address] [place] [address] Performed By: #### 2 4321-2, , 2776-03 ####[facility] LABORATORYCLIA [id number] [place] [address] [place] Urea nitrogen [Mass/Vol] 14 mg/dL Normal 7-21 [facility] Comment on above: Order Comment: Madaii men Type: BLOOD SPECIMENOrdering Facility: [facility] Address: [address] [place] [address] Performed By: #### 2 4321-2, , 1 ####[facility] LABORATORYCLIA [id number] [address] STATES OF [facility] CBC panel Auto (Bld)on 05-06 Erythrocyte distribution width (RBC) [Ratio] 12.6 % Normal 11.5-15.0 [facility] Comment on above: Order Comment: Speci men Type: BLOOD SPECIMENOrdering Facility: [facility] Address: [address] [place] [address] Performed By: #### 5 8410-2 ####[facility] LABORATORYCLIA [id number] [address] Hematocrit (Bld) [Volume fraction] 39.9 % Normal 36.0-46.0 [facility] Comment on above: Order Comment: Speci men Type: BLOOD SPECIMENOrdering Facility: [facility] Address: [address] [place] [address] Performed By: #### 5 8410-2 ####[facility] LABORATORYCLIA [id number] [address] OF [facility] Hemoglobin (Bld) [Mass/Vol] 13.0 g/dL Normal 11.5-15.5 [facility] Comment on above: Order Comment: Speci men Type: BLOOD SPECIMENOrdering Facility: [facility] Address: [address] [place] [address] Performed By: #### 5 8410-2 ####[facility] LABORATORYCLIA [id number] [address] [place] MCH (RBC) [Entitic mass] 30.7 pg Normal 26.0-34.0 [facility] Comment on above: Order Comment: Speci men Type: BLOOD SPECIMENOrdering Facility: [facility] Address: [address] [place] [address] Performed By: #### 5 8410-2 ####[facility] LABORATORYCLIA [id number] [address] [place] MCHC (RBC) [Mass/Vol] 32.6 g/dL Normal 30.5-36.0 [facility] Comment on above: Order Comment: Speci men Type: BLOOD SPECIMENOrdering Facility: [facility] Address: [address] [place] [address] Performed By: #### 5 8410-2 ####[facility] LABORATORYCLIA [id number] [address] [place] MCV (RBC) [Entitic vol] 94.1 fL Normal 80.0-100.0 [facility] Comment on above: Order Comment: Speci men Type: BLOOD SPECIMENOrdering Facility: [facility] Address: [address] [place] [address] Performed By: #### 5 8410-2 ####[facility] LABORATORYCLIA [id number] [address] [place] Nucleated RBC (Bld) [#/Vol] 10*3/uL Normal <0.01 [facility] Comment on above: Order Comment: Speci men Type: BLOOD SPECIMENOrdering Facility: [facility] Address: [address] [place] [address] Performed By: #### 5 8410-2 ####[facility] LABORATORYCLIA [id number] [address] [place] Platelet mean volume (Bld) [Entitic vol] 10.0 fL Normal 9.0-12.7 [facility] Comment on above: Order Comment: Speci men Type: BLOOD SPECIMENOrdering Facility: [facility] Address: [address] [place] [address] Performed By: #### 5 8410-2 ####[facility] LABORATORYCLIA [id number] [address] [place] Platelets (Bld) [#/Vol] 308 10*3/uL Normal 150-400 [facility] Comment on above: Order Comment: Speci men Type: BLOOD SPECIMENOrdering Facility: [facility] Address: [address] [place] [address] Performed By: #### 5 8410-2 ####[facility] LABORATORYCLIA [id number] [address] OF [facility] RBC (Bld) [#/Vol] 4.24 10*6/uL Normal 3.90-5.20 [facility] Comment on above: Order Comment: Speci men Type: BLOOD SPECIMENOrdering Facility: [facility] Address: [address] [place] [address] Performed By: #### 5 8410-2 ####[facility] LABORATORYCLIA [id number] [address] [place] WBC (Bld) [#/Vol] 8.12 10*3/uL Normal 3.70-11.00 [facility] Comment on above: Order Comment: Speci men Type: BLOOD SPECIMENOrdering Facility: [facility] Address: [address] [place] [address] Performed By: #### 5 8410-2 ####[facility] LABORATORYCLIA [id number] [address] [place] BLOOD TYPEon 025 ABO O Normal [facility] Comment on above: Order Comment: Speci men Type: BLOOD SPECIMENOrdering Facility: [facility] Address: [address] [place] [address] Performed By: #### C ONABO ####[facility] BLOOD BANKCLIA [id number] [address] Rh Nom (Bld) Positive Normal [facility] Comment on above: Order Comment: Speci men Type: BLOOD SPECIMENOrdering Facility: [facility] Address: [address] [place] [address] Performed By: #### C ONABO ####[facility] BLOOD BANKCLIA [id number] [address] CONSULTon 05-06-2024 CONSULT HNO ID: [id number] Author: HORACE NOGUERA MD Service: General Surgery Author Type: Physician Type: Consults Filed: 05/06/2024 09:17 Note Text: Surgical ICU Consult Note This note was partially generated using Dragon voice recognition system, and there may be [...] repair, here as a trauma transfer from [place] after GLF at home, pt does not [...] Procedure Laterality Date BREAST BIOPSY Left 12/16/2016 [facility]-Dr. Sandhu DELIVERY ONLY , low transverse x [...] grossly in (more content not included)... Normal [facility] CONSULT HNO ID: [id number] Author: LATRELL WOLF PA-C Service: Neurosurgery Author Type: Physician Warehouse Incentive Selector Type: Consults Filed: 05/06/2024 01:30 Note Text: Attestation signed by Bisi Benedict MD at 05/06/2024 9:41 AM HANDP [...] Will likely treat in a TLSO brace. Bisi Benedict MD CONSULT: NEUROSURGERY SERVICE SERVICE DATE: 05/06/2024 SERVICE TIME: 12 REASON FOR CONSULT: Trauma, T11 burst fracture REQUESTING PHYSICIAN: Dr. Bates PRIMARY CARE PHYSICIAN: Vera Pompa MD Consultation requested by Dr. Horowitz [...] JAN, who presents for trauma transfer from [place] after fall. Neurosurgery consulted for T11 burst fracture. Patient poor historian. Was grabbing firewood and twisted and fell, was not using walker at the time. Reports 10/ back pain. Prior T12 fracture s/p kyphoplasty. [...] Procedure Laterality Date BREAST BIOPSY Left 12/16/2016 [facility]-Dr. Sandhu DELIVERY ONLY , low transverse x [...] [Nabumetone] U (more content not included)... Normal [facility] CT BRAIN WO IVCONon 05-06-19 CT BRAIN WO IVCON * * *Final Report* * * DATE OF EXAM: May 06 2024 2:21AM [facility] 0504 - CT BRAIN WO IVCON / [...] are unremarkable. IMPRESSION: No acute intracranial abnormality. Inspector Cold Working: REANNA Transcribe Date/Time: May 06 2024 2:38A Dictated by : JACQUELINE FARMER MD This examination was interpreted and the report reviewed and electronically signed by: JACQUELINE FARMER MD on May 06 2024 2:42AM EST [id number] N Normal [facility] CT CERVICAL SPINE WO IVCONon 05-06-2024 CT CERVICAL SPINE WO IVCON * * *Final Report* * * DATE OF EXAM: May 06 2024 2:21AM [facility] 0505 - CT CERVICAL SPINE WO IVCON [...] Counting reference: Craniocervical junction. Anatomic Variants: None. Kiln Transfer Operator (topogram) images: Alignment: Nonspecific straightening of the [...] vertebrae with counting from the craniocervical junction. Inspector Cold Working: REANNA Transcribe Date/Time: May 06 2024 2:24A Dictated by : JACQUELINE FARMER MD This examination was interpreted and the report reviewed and electronically signed by: JACQUELINE FARMER MD on May 06 2024 2:38AM EST [id number] N Normal [facility] CT LUMBAR SPINE WO IVCONon 0 05-06-2024 CT LUMBAR SPINE WO IVCON * * *Final Repo rt* * * DATE OF EXAM: May 06 2024 2:26AM [facility] 0508 - CT LUMBAR SPINE WO IVCON [...] junction. For the purposes of this report, Kiln Transfer Operator (topogram) images: Alignment: Minimal retrolisthesis of L1 [...] incidental findings as above. Anatomic Lumbar Variant: Inspector Cold Working: PSCB Transcribe Date/Time: May 06 2024 3:06A Dictated by : JACQUELINE FARMER MD This examination was interpreted and the report reviewed and electronically signed by: JACQUELINE FARMER MD on May 06 2024 3:20AM EST [id number] N Normal [facility] CT THORACIC SPINE WO IVCONon 05-06-2024 CT THORACIC SPINE WO IVCON * * *Final Report* * * DATE OF EXAM: May 06 2024 2:26AM [facility] 0514 - CT THORACIC SPINE WO IVCON [...] level. For the purposes of this report, Kiln Transfer Operator (topogram) images: Alignment: Intervally increased focal kyphosis [...] incidental findings as above Anatomic Thoracic/Lumbar Variant: Inspector Cold Working: REANNA Transcribe Date/Time: May 06 2024 2:42A Dictated by : JACQUELINE FARMER MD This examination was interpreted and the report reviewed and electronically signed by: JACQUELINE FARMER MD on May 06 2024 3:06AM EST [id number] N Normal [facility] Calcium.ionized [Moles/Vol]o n 05-06-2024 Calcium.ionized (BldV) [Mass/Vol] 1.15 mmol/L Normal 1.08-1.30 [facility] Comment on above: Order Comment: Speci men Type: BLOOD SPECIMENOrdering Facility: [facility] Address: [address] [place] [address] Performed By: #### 1 995-0 ####[facility] LABORATORYCLIA [id number] [address] [place] Calcium.ionized adjusted to pH 7.4 (Bld) [Moles/Vol] 1.12 mmol/L Normal 1.08-1.30 [facility] Comment on above: Order Comment: Speci men Type: BLOOD SPECIMENOrdering Facility: [facility] Address: [address] [place] [address] Performed By: #### 1 995-0 ####[facility] LABORATORYCLIA [id number] [address] [place] ECG COMPLETEon 05-06-2024 ECG COMPLETE Ventricular Rate : 9 6 BPM Atrial Rate : 96 BPM P-R Interval : 148 ms QRS Duration : 66 ms Q-T Interval : 392 ms QTC Calculation(Bazett) : 495 ms Calculated P [place] : 38 degrees Calculated R [place] : -8 degrees Calculated T [place] : 25 degrees NORMAL SINUS RHYTHM LOW VOLTAGE QRS POSSIBLE LATERAL INFARCT , AGE UNDETERMINED ABNORMAL ECG NO PREVIOUS ECGS AVAILABLE Confirmed by MD HARRIS CAROL ([id number]) on 05/06/2024 8:06:44 AM NAME : MICAELA COCHRAN PID : [id number] : 1945 Gender : Female Race : ORD : [id number] Procedure Date : May 06 2024 01:54:10 Edit Date : May 06 2024 08:06:49 Diagnosis: NORMAL SINUS RHYTHM LOW VOLTAGE QRS POSSIBLE LATERAL INFARCT , AGE UNDETERMINED ABNORMAL ECG NO PREVIOUS ECGS AVAILABLE Confirmed by MD HARRIS CAROL ([id number]) on 05/06/2024 8:06:44 AM Test Reason : Arrhythmia Location : 4 : AKED EM Overread By : MD HARRIS CAROL Edited By : MD HARRIS CAROL Referred By : , Acquired by : CHAR THOMASON [facility] ED NOTEon 05-06-2024 ED NOTE HNO ID: [id number] Author: GRABOWSKY, RAPHAEL, RN Service: ? Author Type: Registered Nurse Type: ED Notes Filed: 05/06/2024 16:26 Note Text: Arterial line attempt not successful. Dr. Paiz at bedside to attempt. [facility] ED NOTE HNO ID: [id number] Author: DEVEN GÓMEZ, KHADAR Service: Emergency Medicine Author Type: Registered Nurse Type: ED Notes Filed: 05/06/2024 13:22 Note Text: [place] sandwich, applesauce, and jello given to patient along with macarena pola [facility] ED NOTE HNO ID: [id number] Author: EFE RICKETTS, KHADAR Service: ? Author Type: Registered Nurse Type: ED Notes Filed: 05/06/2024 02:38 Note Text: Pt back from CT scan, monitors reattached. Pt requesting sth for pain after the transfers from bed to table. [facility] ED NOTE HNO ID: [id number] Author: EFE RICKETTS, KHADAR Service: ? Author Type: Registered Nurse Type: ED Notes Filed: 05/06/2024 02:21 Note Text: Pt to CT in cart [facility] ED NOTE HNO ID: [id number] Author: EFE RICKETTS, KHADAR Service: ? Author Type: Registered Nurse Type: ED Notes Filed: 05/06/2024 01:46 Note Text: CT notified of pt. [facility] ED PROV NOTEon 05-06-2024 ED PROV NOTE HNO ID: [id number] Author: BC HARRIS MD Service: Emergency Medicine Author Type: Physician Type: ED Provider Notes Filed: 05/06/2024 14:36 Note Text: This patient was signed out to me by Dr. Horowitz. The patient was originally admitted to the surgical ICU. The surgical team has now downgraded her to a regular surgical floor. BC HARRIS 05/06/24 1436 [facility] HIGH SENSITIVITY TROPONIN To n 05-06-2024 Troponin T.cardiac High sensitivity method [Mass/Vol] 20 ng/L High <12 [facility] Comment on above: Order Comment: Speci men Type: BLOOD SPECIMENOrdering Facility: [facility] Address: [address] [place] [address] [place] [id number] Performed By: #### H STNT ####[facility] LABORATORYCLIA [id number] [place] [address] [place] HISTORY PHYSICALon HISTORY PHYSICAL HNO ID: [id number] Author: HORACE NOGUERA MD Service: General Surgery Author Type: Physician Type: H&P Filed: 05/06/2024 09:19 Note Text: TRAUMA SURGERY HANDP [facility] ARRIVAL DATE: 05/05/2024 ARRIVAL TIME: 11:32 PM CATEGORY: consult INJURY DATE: 05/05/2024 INJURY TIME: 11:32 PM Subjective 78 year old female w hx of migraines, L hip fx s/p repair, here as a trauma transfer from [place] after GLF at home, pt does not [...] COVID-19 original vaccine, age 12+ yr, monovalent ([employer] - PURPLE TOP) 05/22/2020 06/12/2020 diphtheria tetanus [...] Procedure Laterality Date BREAST BIOPSY Left 12/16/2016 [facility]-Dr. Sandhu DELIVERY ONLY , low transverse x [...] or organome (more content not included)... Normal [facility] Lipase SerPl-cCncon 05-06-19 25 Lipase [Catalytic activity/Vol] 11 U/L Low 16-61 [facility] Comment on above: Order Comment: Speci men Type: BLOOD SPECIMENOrdering Facility: [facility] Address: [address] [place] [address] Performed By: #### 3 040-3, 1798-8 ####[facility] LABORATORYCLIA [id number] [place] [address] [place] MRI CERVICAL SPINE WO IVCONo n 05-06-2024 MRI CERVICAL SPINE WO IVCON * * *Final Report* * * DATE OF EXAM: May 06 2024 9:10AM [facility] 0297 - MRI CERVICAL SPINE WO IVCON [...] Disc bulge and facet/ligamentous hypertrophy resulting in jfpp-gn-xkkywnid spinal canal stenosis and mild bilateral foraminal [...] spinal flakito (more content not included)... Normal [facility] MRI LUMBAR SPINE WO IVCONon 05-06-2024 MRI LUMBAR SPINE WO IVCON * * *Final Report* * * DATE OF EXAM: May 06 2024 9:10AM [facility] 0303 - MRI LUMBAR SPINE [...] Disc bulge and facet/ligamentous hypertrophy resulting in ejvx-zr-isdkwvsj spinal canal stenosis and mild bilateral foraminal [...] canal sten (more content not included)... Normal [facility] MRI THORACIC SPINE WO IVCONo n 05-06-2024 MRI THORACIC SPINE WO IVCON * * *Final Report* * * DATE OF EXAM: May 06 2024 9:10AM [facility] 0325 - MRI THORACIC SPINE [...] Disc bulge and facet/ligamentous hypertrophy resulting in qgqy-pt-cvejehml spinal canal stenosis and mild bilateral foraminal [...] severe s (more content not included)... Normal [facility] Magnesium SerPl-mCncon 05-06 Magnesium [Mass/Vol] 1.7 mg/dL Normal 1.7-2.3 [facility] Comment on above: Order Comment: Glendy lizama Type: BLOOD SPECIMENOrdering Facility: [facility] Address: [address] [place] [address] Performed By: #### 2 4321-2, 71944-7, 2777-1 ####[facility] LABORATORYCLIA [id number] [place] [address] [place] PT panel Coag (PPP)on 2024 INR Coag (PPP) [Relative time] 1.0 {INR} Normal 0.9-1.3 [facility] Comment on above: Order Comment: Glendy lizama Type: BLOOD SPECIMENOrdering Facility: [facility] Address: [address] [place] [address] Result Comment: Maggi min K Antagonist (VKA) Therapeutic Range: INR 2 to 3 (Target INR of 2.5) Note: For patients treated with VKA drugs, such as warfarin, the [place] [employer] 2012 Guideline recommends [...] Chest 2012, 141:7S-47S Malka RA, et al. JACC 2017, 70: 252-289 Performed By: #### 3 4528-0, 84391-6 ####[facility] LABORATORYCLIA [id number] [place] [id number] [place] PT Coag (PPP) [Time] 11.3 s Normal 9.7-13.0 [facility] Comment on above: Order Comment: Speci men Type: BLOOD SPECIMENOrdering Facility: [facility] Address: [address] [place] [address] Performed By: #### 3 4528-0, 54500-3 ####[facility] LABORATORYCLIA [id number] [address] OF [facility] Phosphate SerPl-mCncon 05-06 Phosphate [Mass/Vol] 3.3 mg/dL Normal 2.7-4.8 [facility] Comment on above: Order Comment: Speci men Type: BLOOD SPECIMENOrdering Facility: [facility] Address: [address] [place] [address] Performed By: #### 2 4321-2, 50640-0, 2777-1 ####[facility] LABORATORYCLIA [id number] [address] TYPE + SCREENon 05-06-2024 ABO O Normal [facility] Comment on above: Order Comment: Speci men Type: BLOOD SPECIMENOrdering Facility: [facility] Address: [address] [place] [address] Performed By: #### T SCR ####[facility] BLOOD BANKCLIA [id number] [address] Rh Nom (Bld) Positive Normal [facility] Comment on above: Order Comment: Speci men Type: BLOOD SPECIMENOrdering Facility: [facility] Address: [address] [place] [address] Performed By: #### T SCR ####[facility] BLOOD BANKCLIA [id number] [address] OF [facility] TYPE AND SCREEN EXPIRATION 05/09/2024 23:59 Normal [facility] Comment on above: Order Comment: Speci men Type: BLOOD SPECIMENOrdering Facility: [facility] Address: [address] [place] [address] Performed By: #### T SCR ####[facility] BLOOD BANKCLIA [id number] [address] [place] Urinalysis complete panel (U )on 05-06-2024 Bilirubin Ql (U) Negative Normal Negative [facility] Comment on above: Order Comment: Speci men Type: URINE SPECIMENOrdering Facility: [facility] Address: [address] [place] [address] Performed By: #### 2 4356-8 ####[facility] LABORATORYCLIA [id number] [address] [place] Clarity (Unsp spec) Turbid Abnormal Clear [facility] Comment on above: Order Comment: Speci men Type: URINE SPECIMENOrdering Facility: [facility] Address: [address] [place] [address] Performed By: #### 2 4356-8 ####[facility] LABORATORYCLIA [id number] [address] Color (U) Yellow Normal yellow [facility] Comment on above: Order Comment: Speci men Type: URINE SPECIMENOrdering Facility: [facility] Address: [address] [place] [address] Performed By: #### 2 4356-8 ####[facility] LABORATORYCLIA [id number] [address] Glucose Test strip (U) [Mass/Vol] Negative Normal Trace, Negative [facility] Comment on above: Order Comment: Speci men Type: URINE SPECIMENOrdering Facility: [facility] Address: [address] [place] [address] Performed By: #### 2 4356-8 ####[facility] LABORATORYCLIA [id number] [place] [address] [place] Hemoglobin Ql (U) Trace Normal Negative, Trace [facility] Comment on above: Order Comment: Speci men Type: URINE SPECIMENOrdering Facility: [facility] Address: [address] [place] [address] Performed By: #### 2 4356-8 ####[facility] LABORATORYCLIA [id number] [address] [place] Ketones Ql (U) 2+ Abnormal Negative, Trace [facility] Comment on above: Order Comment: Speci men Type: URINE SPECIMENOrdering Facility: [facility] Address: [address] [place] [address] Performed By: #### 2 4356-8 ####[facility] LABORATORYCLIA [id number] [address] Leukocyte esterase Test strip Ql (U) 25 Bella/uL Normal Negative, 25 Bella/uL [facility] Comment on above: Order Comment: Speci men Type: URINE SPECIMENOrdering Facility: [facility] Address: [address] [place] [address] Performed By: #### 2 4356-8 ####[facility] LABORATORYCLIA [id number] [address] Nitrite Ql (U) Negative Normal Negative [facility] Comment on above: Order Comment: Speci men Type: URINE SPECIMENOrdering Facility: [facility] Address: [address] [place] [address] Performed By: #### 2 4356-8 ####[facility] LABORATORYCLIA [id number] [address] STATES [facility] pH (U) 6.0 [pH] Normal 5.0-8.0 [facility] Comment on above: Order Comment: Speci men Type: URINE SPECIMENOrdering Facility: [facility] Address: [address] [place] [address] Performed By: #### 2 4356-8 ####[facility] LABORATORYCLIA [id number] [address] STATES [facility] Protein (U) [Mass/Vol] Trace Normal Trace , Negative [facility] Comment on above: Order Comment: Speci men Type: URINE SPECIMENOrdering Facility: [facility] Address: [address] [place] [address] Performed By: #### 2 4356-8 ####[facility] LABORATORYCLIA [id number] [place] [address] [place] RBC LM.HPF (Urine sed) [#/Area] 3-5 /HPF Abnormal 0-3 /HPF [facility] Comment on above: Order Comment: Speci men Type: URINE SPECIMENOrdering Facility: [facility] Address: [address] [place] [address] Performed By: #### 2 4356-8 ####[facility] LABORATORYCLIA [id number] [address] [place] Specific gravity (U) [Rel density] 1.022 Normal 1.005-1.030 [facility] Comment on above: Order Comment: Speci men Type: URINE SPECIMENOrdering Facility: [facility] Address: [address] [place] [address] Performed By: #### 2 4356-8 ####[facility] LABORATORYCLIA [id number] [address] Urobilinogen Ql (U) Normal Normal Normal [facility] Comment on above: Order Comment: Speci men Type: URINE SPECIMENOrdering Facility: [facility] Address: [address] [place] [address] Performed By: #### 2 4356-8 ####[facility] LABORATORYCLIA [id number] [address] [place] WBC LM.HPF (Urine sed) [#/Area] 0-5 /HPF Normal 0-5 /HPF [facility] Comment on above: Order Comment: Speci men Type: URINE SPECIMENOrdering Facility: [facility] Address: [address] [place] [address] Performed By: #### 2 4356-8 ####[facility] LABORATORYCLIA [id number] [address] [place] XR CHEST 2V FRONTAL/LATon [...] additional imaging if there is back pain. Inspector Cold Working: REANNA Transcribe Date/Time: May 06 2024 8:08A Dictated by : CECILIA HARRIS MD This examination was interpreted and the report reviewed and electronically signed by: CECILIA HARRIS MD on May 06 2024 8:11AM EST [id number] N Normal [facility] aPTT PPPon 05-06-2024 aPTT Coag (PPP) [Time] 28.2 s Normal 23.0-32.4 [facility] Comment on above: Order Comment: Speci men Type: BLOOD SPECIMENOrdering Facility: [facility] Address: [address] [place] [address] Performed By: #### 3 4528-0, 56719-3 ####[facility] LABORATORYCLIA [id number] [place] [id number] [place] 12 Lead EKGon 05-05-2024 12 Lead EKG [facility] Cardiovascular Services [address] [place] [id number] 12 Lead EKG 05/05/24 1621 MR#: [id number] Acct: [id number] Name: MICAELA COCHRAN Rep #: [id number] : 1945 78 From: Renlado Ruiz MD Attending Dr: Status: DEP ER [...] ECG BASELINE ARTIFACT Confirmed by Renaldo Ruiz ([id number]), health editor ANA MARIA SOTO ([id number]) on 05/07/2024 10:16:02 AM Referred By: Confirmed By: Renaldo Ruiz 05/07/24 1016 Date Renaldo Ruiz MD CC: Dr. Edmundo Judd MD; Dr. Vera Pompa MD Signed Normal [facility] Absolute lymphocyte countOrd ered By: Edmundo Judd on 05-05-2024 Lymphocytes Auto (Unsp spec) [#/Vol] 0.90 10*3/uL 0.83-4.51 [facility] Absolute neutrophil countOrd ered By: Edmundo Judd on 05-05-2024 Neutrophils (Bld) [#/Vol] 8.6 10*3/uL High 2.0-7.7 [facility] Albumin to globulin ratioOrd ered By: Edmundo Judd on 05-05-2024 Albumin/Globulin [Mass ratio] 0.8 {ratio} Low 0.9-2.4 [facility] Alcohol, Blood (Medical)-Ser umon 05-05-2024 SERUM ETOH < 3.0 Normal [facility] Comment on above: Result Comment: The serum:whole blood ethanol ratio is approximately 1.14 and varies slightly with hematocrit. Medical Alcohol reference interval and critical value in non-tolerant individuals; 50 - 100 Impairment 100 Intoxication 100 - 250 Severe Poisoning 250 - 400 Deep/possible fatal coma Performed By: #### L 506.0400, L501.25896, L501.9520 #### [facility] Laboratory [facility], [address] Automated lymphocyte count a s percentage of total leukocytesOrdered By: Edmundo Judd on 05-05-2024 Lymphocytes/100 WBC Auto (Unsp spec) 8.9 % Low 19-41 [facility] Basophil percentageOrdered B y: Edmundo Judd on 05-05-2024 Basophils/100 WBC (Bld) 0.6 % 0-1 [facility] Bilirubin, totalOrdered By: Edmundo Judd on 05-05-2024 Bilirubin [Mass/Vol] 0.80 mg/dL 0.20-1.00 [facility] Comment on above: For patients on eltr ombopag therapy, use of Dimension [place] TBIL is not recommended. Blood urea nitrogen (BUN)/cr eatinine ratioOrdered By: Edmundo Judd on 05-05-2024 Urea nitrogen/Creatinine [Mass ratio] 25.6 mg/mg High 10-20 [facility] CBC W/Diff, Automatedon 04-15 Absolute Lymph 0.90 X10 3/uL Normal 0.83-4.51 [facility] Comment on above: Performed By: #### L 506.0400, L501.64717, L501.9520 #### [facility] Laboratory [address] [place], [address] Absolute Neut 8.6 X10 3/uL High 2.0-7.7 [facility] Comment on above: Performed By: #### L 506.0400, L501.64421, L501.9520 #### [facility] [address] [place], [address] Basophils/100 WBC (Bld) 0.6 % Normal 0-1 [facility] Comment on above: Performed By: #### L 506.0400, L501.59510, L501.9520 #### [facility] [address] [place], [address] Eosinophils/100 WBC (Bld) 0.9 % Normal 0-5 [facility] Comment on above: Performed By: #### L 506.0400, L501.83715, L501.9520 #### [facility] [address] [place], [address] Erythrocyte distribution width (RBC) [Ratio] 12.5 % Normal 11.6-14.6 [facility] Comment on above: Performed By: #### L 506.0400, L501.48389, L501.9520 #### [facility] [address] [place], [address] Hematocrit (Bld) [Volume fraction] 39.6 % Normal 37-47 [facility] Comment on above: Performed By: #### L 506.0400, L501.97756, L501.9520 #### [facility] [address] [place], [address] Hemoglobin (Bld) [Mass/Vol] 13.1 g/dL Normal 12.0-15.0 [facility] Comment on above: Performed By: #### L 506.0400, L501.53204, L501.9520 #### [facility] [address] [place], [address] IG% 0.500 Normal 0.0-0.9 [facility] Comment on above: Result Comment: IG% - Immature Granulocytes (promyelocytes, myelocytes and metamyelocytes) > 1% indicates that a LEFT SHIFT is Present. Performed By: #### L 506.0400, L501.85512, L501.9520 #### [facility] [address] [place], [address] Lymphocytes/100 WBC (Bld) 8.9 % Low 19-41 [facility] Comment on above: Performed By: #### L 506.0400, L501.60111, L501.9520 #### [facility] [address] [place], [address] MCH (RBC) [Entitic mass] 31.0 pg Normal 27.0-32.0 [facility] Comment on above: Performed By: #### L 506.0400, L501.92395, L501.9520 #### [facility] [address] [place], [address] MCHC (RBC) [Mass/Vol] 33.1 g/dL Normal 32-36 [facility] Comment on above: Performed By: #### L 506.0400, L501.06936, L501.9520 #### [facility] [address] [place], [address] MCV (RBC) [Entitic vol] 93.6 fL Normal 81-99 [facility] Comment on above: Performed By: #### L 506.0400, L501.15482, L501.9520 #### [facility] [address] [place], [address] Monocytes/100 WBC (Bld) 4.2 % Normal 0-10 [facility] Comment on above: Performed By: #### L 506.0400, L501.84268, L501.9520 #### [facility] [address] [place], [address] Neutrophils/100 WBC (Bld) 84.9 % High 47-70 [facility] Comment on above: Performed By: #### L 506.0400, L501.33821, L501.9520 #### [facility] [address] [place], [address] Nucleated RBC (Bld) [#/Vol] 0 10*3/uL Normal 0-5 [facility] Comment on above: Performed By: #### L 506.0400, L501.94294, L501.9520 #### [facility] [address] [place], [address] Platelet mean volume (Bld) [Entitic vol] 10.1 fL Normal 6.2-12.0 [facility] Comment on above: Performed By: #### L 506.0400, L501.00513, L501.9520 #### [facility] [address] [place], [address] Platelets (Bld) [#/Vol] 316 10*3/uL Normal 150-450 [facility] Comment on above: Performed By: #### L 506.0400, L501.18294, L501.9520 #### [facility] [address] [place], [address] RBC (Bld) [#/Vol] 4.23 10*6/uL Normal 4.2-5.4 [facility] Comment on above: Performed By: #### L 506.0400, L501.16887, L501.9520 #### [facility] [address] [place], [address] RDW SD 43.2 fl Normal 35.1-43.9 [facility] Comment on above: Performed By: #### L 506.0400, L501.56671, L501.9520 #### [facility] [address] [place], [address] WBC (Bld) [#/Vol] 10.1 10*3/uL Normal 4.4-11.0 [facility] Comment on above: Performed By: #### L 506.0400, L501.98202, L501.9520 #### [facility] [address] [place], [address] Carbon dioxide measurementOr dered By: Edmundo Judd on 05-05-2024 CO2 [Moles/Vol] 23.0 mmol/L 21.0-32.0 [facility] Chest without Contraston Chest without Contrast [facility] Imaging Services [address] [place] [address] Chest without Contrast MR#: [id number] Acct: [id number] Name: MICAELA COCHRAN Rep #: [id number] : 1945 F 78 From: James Betancur MD PCP: Dr. Vera Pompa MD Status: REG ER Study: Chest without Contrast Date of Exam: 05/05/24 Exam# [id number] Ordering Dr: Edmundo Judd MD PROCEDURE: CHEST [...] use of iterative reconstruction technique). Reading Location: [facility] CC: Dr. Edmundo Judd MD; Dr. Vera Pompa MD Inspector Cold Working: Signed Normal [facility] Chloride measurementOrdered By: Edmundo Judd on 05-05-2024 Chloride [Moles/Vol] 108 mmol/L High 98-107 [facility] Comprehensive Metabolic Prof ilon 05-05-2024 Albumin [Mass/Vol] 3.7 g/dL Normal 3.2-5.0 [facility] Comment on above: Performed By: #### L 506.0400, L501.90000, L501.9520 #### [facility] Laboratory [facility] [place], [address] Albumin/Globulin [Mass ratio] 0.8 {ratio} Low 0.9-2.4 [facility] Comment on above: Performed By: #### L 506.0400, L501.45190, L501.9520 #### [facility] [address] [place], [address] ALK P 105 U/L Normal 45-117 [facility] Comment on above: Performed By: #### L 506.0400, L501.28974, L501.9520 #### [facility] [address] [place], [address] ALT [Catalytic activity/Vol] 39 U/L Normal 13-56 [facility] Comment on above: Performed By: #### L 506.0400, L501.40116, L501.9520 #### [facility] [address] [place], [address] AST [Catalytic activity/Vol] 34 U/L Normal 15-37 [facility] Comment on above: Result Comment: Slig ht Hemolysis, Result may be falsely increased. Performed By: #### L 506.0400, L501.54149, L501.9520 #### [facility] [address] [place], [address] Bilirubin [Mass/Vol] 0.80 mg/dL Normal 0.20-1.00 [facility] Comment on above: Result Comment: For patients on eltrombopag therapy, use of Dimension [place] TBIL is not recommended. Performed By: #### L 506.0400, L501.77513, L501.9520 #### [facility] [address] [place], [address] BUN/CRE 25.6 RATIO High 10-20 [facility] Comment on above: Performed By: #### L 506.0400, L501.21735, L501.9520 #### [facility] [address] [place], [address] CA,Total 9.7 mg/dL Normal 8.5-10.1 [facility] Comment on above: Performed By: #### L 506.0400, L501.08465, L501.9520 #### [facility] [address] [place], [address] Chloride [Moles/Vol] 108 mmol/L High 98-107 [facility] Comment on above: Performed By: #### L 506.0400, L501.35338, L501.9520 #### [facility] [address] [place], [address] CO2 [Moles/Vol] 23.0 mmol/L Normal 21.0-32.0 [facility] Comment on above: Performed By: #### L 506.0400, L501.60054, L501.9520 #### [facility] [address] [place], [address] Creatinine [Mass/Vol] 0.70 mg/dL Normal 0.55-1.02 [facility] Comment on above: Result Comment: The validity of the calculated GFR GFRAA in patients over 70 years has not been determined. Clinical correlation is essential. Performed By: #### L 506.0400, L501.30826, L501.9520 #### [facility] [address] [place], [address] ECRCL 49.51 ml/min Normal [facility] Comment on above: Performed By: #### L 506.0400, L501.93341, L501.9520 #### [facility] [address] [place], [address] EST GFR - AA 104 mL/min Normal >60 [facility] Comment on above: Result Comment: Afri can [place] GFR Calc Performed By: #### L 506.0400, L501.57852, L501.9520 #### [facility] [address] [place], [address] GAP 8 Normal 5-15 [facility] Comment on above: Performed By: #### L 506.0400, L501.74996, L501.9520 #### [facility] [address] [place], [address] GFR/1.73 sq M.predicted among non-blacks MDRD (S/P/Bld) [Vol rate/Area] 86 mL/min/{1.73_m2} Normal >60 [facility] Comment on above: Result Comment: Non- GFR Calc Performed By: #### L 506.0400, L501.52257, L501.9520 #### [facility] [address] [place], [address] Globulin (S) [Mass/Vol] 4.4 g/dL High 2.2-4.2 [facility] Comment on above: Performed By: #### L 506.0400, L501.79156, L501.9520 #### [facility] [address] [place], [address] Glucose [Mass/Vol] 106 mg/dL Normal 74-106 [facility] Comment on above: Result Comment: Fast ing Glucose result from 100 to 125 mg/dL suggests IMPAIRED HOMEOSTASIS per A.D.A. criteria. Performed By: #### L 506.0400, L501.99150, L501.9520 #### [facility] [address] [place], [address] Potassium [Moles/Vol] 4.2 mmol/L Normal 3.5-5.1 [facility] Comment on above: Result Comment: Slig ht Hemolysis, Result may be falsely increased. Performed By: #### L 506.0400, L501.89084, L501.9520 #### [facility] [address] [place], [address] Sodium [Moles/Vol] 139 mmol/L Normal 136-145 [facility] Comment on above: Performed By: #### L 506.0400, L501.78099, L501.9520 #### [facility] [address] [place], [address] T PROT 8.1 g/dL Normal 6.4-8.2 [facility] Comment on above: Performed By: #### L 506.0400, L501.04483, L501.9520 #### [facility] [address] [place], [address] Urea nitrogen [Mass/Vol] 18 mg/dL Normal 7-18 [facility] Comment on above: Performed By: #### L 506.0400, L501.25564, L501.9520 #### [facility] [address] [place], [address] ED NOTEon 05-05-2024 ED NOTE HNO ID: [id number] Author: EFE RICKETTS RN Service: ? Author Type: Registered Nurse Type: ED Notes Filed: 05/06/2024 01:07 Note Text: CMS intact at 30 minutes post block. [facility] ED NOTE HNO ID: [id number] Author: EFE RICKETTS RN Service: ? Author Type: Registered Nurse Type: ED Notes Filed: 05/06/2024 01:06 Note Text: CMS intact @ 15 after nerve block. [facility] ED NOTE HNO ID: [id number] Author: EFE RICKETTS RN Service: ? Author Type: Registered Nurse Type: ED Notes Filed: 05/05/2024 21:21 Note Text: Pt on monitors, spo2, NBP from arrival to ED. Dr. Garcia and Dr. Harrington at bedside for nerve block procedure at this time. [facility] ED NOTE HNO ID: [id number] Author: EFE RICKETTS RN Service: ? Author Type: Registered Nurse Type: ED Notes Filed: 05/05/2024 21:06 Note Text: Placed on 2L nc d/t chest injury. 97% on 2L. Normal [facility] ED PROV NOTEon 05-05-2024 ED PROV NOTE HNO ID: [id number] Author: NASREEN HARRINGTON MD Service: Emergency Medicine Author Type: Physician Type: ED Provider Notes Filed: 05/08/2024 21:29 Note Text: ED Provider Note Patient Name: Micaela Cochran : 1945 SERVICE DATE: 05/05/24 History Patient presents with: Functional Transfers: Pt arrives via [facility] from [facility] as transfer for trauma consult. Pt. Fell early this afternoon at home, sustained multiple b/l rib fx 4-8 on left side, as well as T12 compression fx. C-spine cleared. Pt arrives AANDO3, GCS 15. 93% on RA, Hx frequent falls recently. 78-year-old female presenting to the emergency department via EMS as transfer from [place] for trauma evaluation. Patient ports earlier this [...] blood thinner complaints. Upon initial evaluation at [facility] earlier today she was found to have nondisplaced posterior 10th and 11th rib fractures as well as nondisplaced lateral fourth, fifth, sixth, seventh and eighth left-sided rib fractures. Additional findings includesevere compression fracture of T11. Previous vertebroplasty on T12 mentioned. Labs completed at [facility] including CBC, CMP, and alcohol level unrevealing. PAST MEDICAL HISTORY Diagnosis Date Adjustment disorder with depressed mood Breast calcifications 12/2016 Depression Iron deficiency anemia, unspecified Lateral sclerosis Migraine headache without aura <=1 per month as of May 2013 Myalgia and myositis, unspecified Osteoarthritis Spastic paresis (HCC) Unspecified hypothyroidism PAST SURGICAL HISTORY Procedure Laterality Date BREAST BIOPSY Left 12/16/2016 [facility]-Dr. Sandhu DELIVERY ONLY , low transverse x [...] Affect: Mood (more content not included)... Normal [facility] Emergency Department Summary on 05-05-2024 Emergency Department Summary [facility] Medical Records Department [address] [place] [address] Emergency Department Summary 05/05/24 MR#: [id number] Acct: [id number] Name: MICAELA COCHRAN Rep #: [id number] : 1945 78 From: Edmundo Judd MD [...] is unsure of her last tetanus immunization. [facility] Medical History Non-smoker Sleep apnea Hypertension Migraines [...] Rate 16 (more content not included)... Normal [facility] Eosinophil percentageOrdered By: Edmundo Judd on 05-05-2024 Eosinophils/100 WBC (Bld) 0.9 % 0-5 [facility] Erythrocyte distribution wid th ratioOrdered By: Edmundo Judd on 05-05-2024 Erythrocyte distribution width (RBC) [Ratio] 12.5 % 11.6-14.6 [facility] Erythrocyte distribution wid th standard deviationOrdered By: Edmundo Judd on 05-05-2024 Erythrocyte distribution width (RBC) [Entitic vol] 43.2 fL 35.1-43.9 [facility] Erythrocyte distribution width (RBC) [Ratio] 43.2 fl 35.1-43.9 [facility] Estimated glomerular filtrat ion rate (GFR) AmericanOrdered By: Edmundo Judd on 05-05-2024 Estimated GFR (MDRD) Amer 104 mL/min >60 [facility] Comment on above: GFR Calc Estimation of creatinine magno aranceOrdered By: Edmundo Judd on 05-05-2024 Estimated Creatinine Clearance Calc 49.51 ml/min [facility] Forearm 2 Viewson 05-05-2024 Forearm 2 Views [facility] Imaging Services [address] [place] [address] Forearm 2 Views MR#: [id number] Acct: [id number] Name: MICAELA COCHRAN Rep #: [id number] : 1945 F 78 From: James Betancur MD PCP: Dr. Vera Pompa MD Status: REG ER Study: Forearm 2 Views Date of Exam: 05/05/24 Exam# [id number] Ordering Dr: Edmunod Judd MD PROCEDURE: FOREARM 2 VIEWS REASON FOR EXAM: Trauma TECHNIQUE: Two views of the left forearm COMPARISON: None. FINDINGS: LEFT FOREARM: No fracture. No suspicious bone lesion. Mild osteopenia Normal alignment at the wrist and elbow. Soft tissues are unremarkable. RAD/Forearm 2 Views IMPRESSION: Degenerative changes with no acute osseous abnormality in the left forearm Reading Location: [facility] CC: Dr. Edmundo Judd MD; Dr. Vera Pompa MD Inspector Cold Working: Signed Normal [facility] Glomerular filtration rate ( GFR) estimationOrdered By: Edmundo Judd on 05-05-2024 Estimated GFR (MDRD) Non-Af Amer 86 mL/min >60 [facility] Comment on above: Non- GFR Calc GFR/1.73 sq M.predicted among non-blacks MDRD (S/P/Bld) [Vol rate/Area] 86 mL/min/{1.73_m2} >60 [facility] Comment on above: Non- GFR Calc Glucose measurementOrdered B y: Edmundo Judd on 05-05-2024 Glucose [Mass/Vol] 106 mg/dL 74-106 [facility] Comment on above: Fasting Glucose resu lt from 100 to 125 mg/dL suggests IMPAIRED HOMEOSTASIS per A.D.A. criteria. Hematocrit Auto (Bld) [Volum e fraction]Ordered By: Edmundo Judd on 05-05-2024 Hematocrit (Bld) [Volume fraction] 39.6 % 37-47 [facility] Hemoglobin measurementOrdere d By: Edmundo Judd on 05-05-2024 Hemoglobin (Bld) [Mass/Vol] 13.1 g/dL 12.0-15.0 [facility] Immature granulocytes/100 WB C Auto (Bld)Ordered By: Edmundo Judd on 05-05-2024 Immature granulocytes/100 WBC (Bld) 0.500 % 0.0-0.9 [facility] Comment on above: IG% - Immature Granu locytes (promyelocytes, myelocytes and metamyelocytes) > 1% indicates that a LEFT SHIFT is Present. Laboratory - Chemistry and C hemistry - challengeOrdered By: Edmundo Judd on 05-05-2024 AST [Catalytic activity/Vol] 34 U/L 15-37 [facility] Comment on above: Slight Hemolysis, Re sult may be falsely increased. Lymphocytes Auto (Unsp spec) [#/Vol]Ordered By: Edmundo Judd on 05-05-2024 Lymphocytes (Bld) [#/Vol] 0.90 10*3/uL 0.83-4.51 [facility] Lymphocytes/100 WBC Auto (Un sp spec)Ordered By: Edmundo Judd on 05-05-2024 Lymphocytes/100 WBC (Bld) 8.9 % Low 19-41 [facility] MCV (mean corpuscular volume ) determinationOrdered By: Edmundo Judd on 05-05-2024 MCV (RBC) [Entitic vol] 93.6 fL 81-99 [facility] Mean corpuscular hemoglobin (MCH) determinationOrdered By: Edmundo Judd on 05-05-2024 MCH (RBC) [Entitic mass] 31.0 pg 27.0-32.0 [facility] Mean corpuscular hemoglobin concentration (MCHC) determinationOrdered By: Edmundo Judd on 05-05-2024 MCHC (RBC) [Mass/Vol] 33.1 g/dL 32-36 [facility] Mean platelet volume determi nationOrdered By: Edmundo Judd on 05-05-2024 Platelet mean volume (Bld) [Entitic vol] 10.1 fL 6.2-12.0 [facility] Monocyte percentageOrdered B y: Edmundo Judd on 05-05-2024 Monocytes/100 WBC (Bld) 4.2 % 0-10 [facility] Neutrophil percentageOrdered By: Edmundo Judd on 05-05-2024 Neutrophils/100 WBC (Bld) 84.9 % High 47-70 [facility] Nucleated red blood cell per centageOrdered By: Edmundo Judd on 05-05-2024 Nucleated RBC/100 WBC (Bld) [Ratio] 0 % 0-5 [facility] Platelet countOrdered By: Dennis Judd on 05-05-2024 Platelets (Bld) [#/Vol] 316 10*3/uL 150-450 [facility] Potassium measurementOrdered By: Edmundo Judd on 05-05-2024 Potassium [Moles/Vol] 4.2 mmol/L 3.5-5.1 [facility] Comment on above: Slight Hemolysis, Re sult may be falsely increased. RBC Auto (Bld) [#/Vol]Ordere d By: Edmundo Judd on 05-05-2024 RBC (Bld) [#/Vol] 4.23 10*6/uL 4.2-5.4 [facility] Serum anion gap measurementO rdered By: Edmundo Judd on 05-05-2024 Anion gap [Moles/Vol] 8 mmol/L 5-15 [facility] Serum ethanol measurementOrd ered By: Edmundo Judd on 05-05-2024 Ethyl Alcohol Level < 3.0 mg/dL [facility] Comment on above: The serum:whole bloo d ethanol ratio is approximately 1.14and varies slightly with hematocrit. Medical Alcohol reference interval and critical value innon-tolerant individuals; 50 - 100 Impairment 100 Intoxication 100 - 250 Severe Poisoning 250 - 400 Deep/possible fatal coma Serum globulin measurementOr dered By: Edmundo Judd on 05-05-2024 Globulin (S) [Mass/Vol] 4.4 g/dL High 2.2-4.2 [facility] Serum or plasma alanine spann otransferase (ALT) measurementOrdered By: Edmundo Judd on 05-05-2024 ALT [Catalytic activity/Vol] 39 U/L 13-56 [facility] Serum or plasma albumin criss urement (mass/volume)Ordered By: Edmundo Judd on 05-05-2024 Albumin [Mass/Vol] 3.7 g/dL 3.2-5.0 [facility] Serum or plasma alkaline irene sphatase measurementOrdered By: Edmundo Judd on 05-05-2024 ALP [Catalytic activity/Vol] 105 U/L 45-117 [facility] Serum or plasma calcium criss urement (mass/volume)Ordered By: Edmundo Judd on 05-05-2024 Calcium [Mass/Vol] 9.7 mg/dL 8.5-10.1 [facility] Serum or plasma creatinine m easurement (mass/volume)Ordered By: Edmundo Judd on 05-05-2024 Creatinine [Mass/Vol] 0.70 mg/dL 0.55-1.02 [facility] Comment on above: The validity of the calculated GFR & GFRAA in patients over 70 years has not been determined. Clinical correlation is essential. Serum or plasma urea nitroge n measurement (mass/volume)Ordered By: Edmundo Judd on 05-05-2024 Urea nitrogen [Mass/Vol] 18 mg/dL 7-18 [facility] Sodium levelOrdered By: Edmundo Judd on 05-05-2024 Sodium [Moles/Vol] 139 mmol/L 136-145 [facility] Total proteinOrdered By: Pola Judd on 05-05-2024 Protein [Mass/Vol] 8.1 g/dL 6.4-8.2 [facility] White blood cell (WBC) count Ordered By: Edmundo Judd on 05-05-2024 WBC (Bld) [#/Vol] 10.1 10*3/uL 4.4-11.0 [facility] Wrist min 3 Viewson 05-05-19 Wrist min 3 Views [facility] Imaging Services [address] [place], [place] [address] Wrist min 3 Views MR#: [id number] Acct: [id number] Name: MICAELA COCHRAN Rep #: [id number] : 1945 F 78 From: James Betancur MD PCP: Dr. Vera Pompa MD Status: [facility] ER Study: Wrist min 3 Views Date of Exam: 05/05/24 Exam# [id number] Ordering Dr: Edmundo Judd MD PROCEDURE: WRIST [...] Edmundo Judd MD; Dr. Vera Pompa MD Inspector Cold Working: Signed Normal [facility] MICAEL[facility] COCHRAN ([id number]) 1945 F Date Time Provider Department 12/05/23 APRYL GORMAN [facility] During your visit today, we recorded the [...] tablet by mouth as directed. D/C from [facility]; for HIP fracture - senna-docusate (SENNA-S) 8.6-50 [...] Status:Closed by CELSO DAY on 12/30/23 Normal [facility] Telephone (FAMPWS) DIMASMICAELA ([id number]) 1945 F Date Time Provider Department 12/05/23 APRYL GORMAN [facility] During your visit today, we recorded the [...] tablet by mouth as directed. D/C from [facility]; for HIP fracture - senna-docusate (SENNA-S) 8.6-50 [...] mouth once daily. Cosign required by APRYL GORMAN[[id number]] LEVOTHYROXINE 100 MCG TABLET 30 t* 0 12/05/2023 01/04/2024 Route: ORAL Sig: Take 1 tablet by mouth once daily. Take on empty stomach Cosign required by APRYL GORMAN[[id number]] Medications Discontinued During This Encounter Prescriptions - levothyroxine (SYNTHROID) 100 mcg tablet (Discontinued) Take 1 tablet by mouth once daily. Encounter Status:Closed by CELSO DAY on 12/05/23 Normal [facility] CBC W Auto Differential pane l (Bld)on 08-29-2023 Basophils (Bld) [#/Vol] 0.07 10*3/uL [facility] Basophils/100 WBC (Bld) 0.9 % [facility] Differential cell count method Nom (Bld) Auto [facility] Eosinophils (Bld) [#/Vol] 0.39 10*3/uL [facility] Eosinophils/100 WBC (Bld) 4.8 % [facility] Erythrocyte distribution width (RBC) [Ratio] 12.8 % 11.5 - 15.0 % [facility] Hematocrit (Bld) [Volume fraction] 38.9 % 36.0 - 46.0 % [facility] Hemoglobin (Bld) [Mass/Vol] 12.4 g/dL 11.5 - 15.5 g/dL [facility] Immature granulocytes (Bld) [#/Vol] 0.03 10*3/uL [facility] Immature granulocytes/100 WBC (Bld) 0.4 % [facility] Lymphocytes (Bld) [#/Vol] 1.76 10*3/uL [facility] Lymphocytes/100 WBC (Bld) 21.7 % [facility] MCH (RBC) [Entitic mass] 30.5 pg 26. 0 - 34.0 pg [facility] MCHC (RBC) [Mass/Vol] 31.9 g/dL 30.5 - 36.0 g/dL [facility] MCV (RBC) [Entitic vol] 95.8 fL 80.0 - 100.0 fL [facility] Monocytes (Bld) [#/Vol] 0.68 10*3/uL [facility] Monocytes/100 WBC (Bld) 8.4 % [facility] Neutrophils (Bld) [#/Vol] 5.17 10*3/uL [facility] Neutrophils/100 WBC (Bld) 63.8 % [facility] Nucleated RBC (Bld) [#/Vol] NINF [facility] Nucleated RBC/100 WBC (Bld) [Ratio] 0.0 % /100 WBC [facility] Platelet mean volume (Bld) [Entitic vol] 10.5 fL 9.0 - 12.7 fL [facility] Platelets (Bld) [#/Vol] 362 10*3/uL [facility] RBC (Bld) [#/Vol] 4.06 10*6/uL 3.90 - 5.2 0 m/uL [facility] WBC (Bld) [#/Vol] 8.10 10*3/uL [facility] Absolute lymphocyte countOrd ered By: Carroll Weaver on 05-25-2023 Lymphocytes Auto (Unsp spec) [#/Vol] 1.91 10*3/uL 0.83-4.51 [facility] Automated lymphocyte count a s percentage of total leukocytesOrdered By: Carroll Weaver on 05-25-2023 Lymphocytes/100 WBC Auto (Unsp spec) 25.8 % 19-41 [facility] Basophil percentageOrdered B y: Carroll Weaver on 05-25-2023 Basophils/100 WBC (Bld) 1.1 % 0-1 [facility] Chloride [Moles/Vol] 110 mmol/L 98-107 [facility] Eosinophils/100 WBC (Bld) 5.8 % 0-5 [facility] Glucose [Mass/Vol] 84 mg/dL 74-106 [facility] Hemoglobin (Bld) [Mass/Vol] 12.5 g/dL 12.0-15.0 [facility] Monocytes/100 WBC (Bld) 9.6 % 0-10 [facility] Neutrophils (Bld) [#/Vol] 4.2 10*3/uL 2.0-7.7 [facility] Neutrophils/100 WBC (Bld) 57.4 % 47-70 [facility] Potassium [Moles/Vol] 4.0 mmol/L 3.5-5.1 [facility] Sodium [Moles/Vol] 142 mmol/L 136-145 [facility] WBC (Bld) [#/Vol] 7.4 10*3/uL 4.4-11.0 [facility] Determination of erythrocyte mean corpuscular volume (MCV)Ordered By: Carroll Weaver on 05-25-2023 MCV (RBC) [Entitic vol] 96.6 fL 81-99 [facility] Erythrocyte distribution wid th ratioOrdered By: Carroll Weaver on 05-25-2023 Erythrocyte distribution width (RBC) [Ratio] 12.3 % 11.6-14.6 [facility] Erythrocyte distribution wid th standard deviationOrdered By: Carroll Weaver on 05-25-2023 Erythrocyte distribution width (RBC) [Entitic vol] 43.7 fL 35.1-43.9 [facility] Hematocrit Auto (Bld) [Volum e fraction]Ordered By: Carroll Weaver on 05-25-2023 Hematocrit (Bld) [Volume fraction] 39.2 % 37-47 [facility] Immature granulocytes/100 WB C Auto (Bld)Ordered By: Carroll Weaver on 05-25-2023 Immature granulocytes/100 WBC (Bld) 0.300 % 0.0-0.9 [facility] Comment on above: IG% - Immature Granu locytes (promyelocytes, myelocytes and metamyelocytes) > 1% indicates that a LEFT SHIFT is Present. Laboratory - Chemistry and C hemistry - challengeOrdered By: Carroll Weaver on 05-25-2023 CO2 [Moles/Vol] 23.0 mmol/L 21.0-32.0 [facility] Urea nitrogen/Creatinine [Mass ratio] 33.0 mg/mg 10-20 [facility] - Hematology and Cell countsOrdered By: Carroll Weaver on 05-25-2023 MCH (RBC) [Entitic mass] 30.8 pg 27.0-32.0 [facility] MCHC (RBC) [Mass/Vol] 31.9 g/dL 32-36 [facility] Nucleated RBC/100 WBC (Bld) [Ratio] 0 % 0-5 [facility] Platelet mean volume (Bld) [Entitic vol] 9.8 fL 6.2-12.0 [facility] Platelets (Bld) [#/Vol] 301 10*3/uL 150-450 [facility] No Panel InformationOrdered By: Carroll Weaver on 05-25-2023 Estimated Creatinine Clearance Calc 50.10 ml/min [facility] Estimated GFR (MDRD) Amer 96 mL/min >60 [facility] Comment on above: GFR Calc Estimated GFR (MDRD) Non-Af Amer 79 mL/min >60 [facility] Comment on above: Non- GFR Calc RBC Auto (Bld) [#/Vol]Ordere d By: Carroll Weaver on 05-25-2023 RBC (Bld) [#/Vol] 4.06 10*6/uL 4.2-5.4 [facility] Serum or plasma calcium criss urement (mass/volume)Ordered By: Carroll Weaver on 05-25-2023 Calcium [Mass/Vol] 9.0 mg/dL 8.5-10.1 [facility] Serum or plasma creatinine m easurement (mass/volume)Ordered By: Carroll Weaver on 05-25-2023 Creatinine [Mass/Vol] 0.76 mg/dL 0.55-1.02 [facility] Comment on above: The validity of the calculated GFR & GFRAA in patients over 70 years has not been determined. Clinical correlation is essential. Serum or plasma urea nitroge n measurement (mass/volume)Ordered By: Carroll Weaver on 05-25-2023 Urea nitrogen [Mass/Vol] 25 mg/dL 7-18 [facility] Thin prep Papanicolaou smear with manual screeningOrdered By: Carroll Weaver on 05-25-2023 Thin prep Papanicolaou smear with manual screening 9 5-15 [facility] Absolute lymphocyte countOrd ered By: Odilon Rodríguez on 09-26-2022 Lymphocytes Auto (Unsp spec) [#/Vol] 1.63 10*3/uL 0.83-4.51 [facility] Basophil percentageOrdered B y: Odilon Rodríguez on 09-26-2022 Basophils/100 WBC (Bld) 1.5 % 0-1 [facility] Eosinophils/100 WBC (Bld) 4.2 % 0-5 [facility] Neutrophils (Bld) [#/Vol] 4.1 10*3/uL 2.0-7.7 [facility] Neutrophils/100 WBC (Bld) 61.1 % 47-70 [facility] WBC (Bld) [#/Vol] 6.7 10*3/uL 4.4-11.0 [facility] Blood erythrocytes count (nu mber/volume)Ordered By: [facility] on 09-26-2022 RBC (Bld) [#/Vol] 3.65 10*6/uL 4.2-5.4 [facility] Blood hemoglobin measurement (mass/volume)Or[facility] By: [facility] on 09-26-2022 Hemoglobin (Bld) [Mass/Vol] 11.0 g/dL 12.0-15.0 [facility] Blood lymphocytes/100 leukoc ytesOrdered By: [facility] on 09-26-2022 Lymphocytes/100 WBC (Bld) 24.5 % 19-41 [facility] Blood monocytes/100 leukocyt esOrdered By: [facility] on 09-26-2022 Monocytes/100 WBC (Bld) 8.4 % 0-10 [facility] Blood platelet mean volumeOr dered By: [facility] on 09-26-2022 Platelet mean volume (Bld) [Entitic vol] 9.3 fL 6.2-12.0 [facility] Determination of erythrocyte mean corpuscular volume (MCV)Ordered By: [facility] on 09-26-2022 MCV (RBC) [Entitic vol] 96.7 fL 81-99 [facility] Hematocrit Auto (Bld) [Volum e fraction]Ordered By: [facility] on 09-26-2022 Hematocrit (Bld) [Volume fraction] 35.3 % 37-47 [facility] Laboratory - Hematology and Cell countsOrdered By: [facility] on 09-26-2022 Erythrocyte distribution width (RBC) [Entitic vol] 59.7 fL 35.1-43.9 [facility] Erythrocyte distribution width (RBC) [Ratio] 16.8 % 11.6-14.6 [facility] Immature granulocytes/100 WBC (Bld) 0.300 % 0.0-0.9 [facility] Comment on above: IG% - Immature Granu locytes (promyelocytes, myelocytes and metamyelocytes) > 1% indicates that a LEFT SHIFT is Present. MCH (RBC) [Entitic mass] 30.1 pg 27.0-32.0 [facility] Nucleated RBC/100 WBC (Bld) [Ratio] 0 % 0-5 [facility] Auto (RBC) [Mass/Vol]Or dered By: Odilon Rodríguez on 09-26-2022 MCHC (RBC) [Mass/Vol] 31.2 g/dL 32-36 [facility] Platelets bldOrdered By: Odilon Rodríguez on 09-26-2022 Platelets (Bld) [#/Vol] 584 10*3/uL 150-450 [facility] Basophil percentageOrdered B y: Celeste Lloyd on 09-25-2022 Chloride [Moles/Vol] 110 mmol/L 98-107 [facility] Glucose [Mass/Vol] 93 mg/dL 74-106 [facility] Potassium [Moles/Vol] 4.1 mmol/L 3.5-5.1 [facility] Sodium [Moles/Vol] 142 mmol/L 136-145 [facility] Laboratory - Chemistry and C hemistry - challengeOrdered By: Celeste Lloyd on 09-25-2022 CO2 [Moles/Vol] 25.0 mmol/L 21.0-32.0 [facility] Urea nitrogen/Creatinine [Mass ratio] 26.4 mg/mg 10-20 [facility] No Panel InformationOrdered By: Celeste Lloyd on 09-25-2022 Estimated Creatinine Clearance Calc 35.45 ml/min [facility] Estimated GFR (MDRD) Amer 108 mL/min >60 [facility] Comment on above: GFR Calc Estimated GFR (MDRD) Non-Af Amer 89 mL/min >60 [facility] Comment on above: Non- GFR Calc Serum or plasma calcium criss urement (mass/volume)Ordered By: Celeste Lloyd on 09-25-2022 Calcium [Mass/Vol] 8.6 mg/dL 8.5-10.1 [facility] Serum or plasma creatinine m easurement (mass/volume)Ordered By: Celeste Lloyd on 09-25-2022 Creatinine [Mass/Vol] 0.68 mg/dL 0.55-1.02 [facility] Comment on above: The validity of the calculated GFR & GFRAA in patients over 70 years has not been determined. Clinical correlation is essential. Serum or plasma urea nitroge n measurement (mass/volume)Ordered By: Celeste Lloyd on 09-25-2022 Urea nitrogen [Mass/Vol] 18 mg/dL 7-18 [facility] Thin prep Papanicolaou smear with manual screeningOrdered By: Celeste Prema on 09-25-2022 Thin prep Papanicolaou smear with manual screening 7 5-15 [facility] Basophil percentageOrdered B y: Celeste Comerperico on 09-13-2022 Basophil percentage 3.1 mg/dL 2.5-4.9 [facility] Stool gastrointestinal hemog lobin detection by immunologic methodOrdered By: Celeste Prema on 09-13-2022 Lower GI hemoglobin IA Ql (Stl) [facility] Basophil percentageOrdered B y: Celeste Comerperico on 09-11-2022 Bilirubin [Mass/Vol] 1.20 mg/dL 0.20-1.00 [facility] Comment on above: For patients on eltr ombopag therapy, use of Dimension [place] TBIL is not recommended. Protein [Mass/Vol] 5.7 g/dL 6.4-8.2 [facility] Basophil percentage 0 SEEN /hpf 0-5 [facility] Bilirubin Test strip Ql (U)O rdered By: Celeste Comerperico on 09-11-2022 Bilirubin Ql (U) Negative Negative [facility] Direct bilirubinOrdered By: Celeste Prema on 09-11-2022 Bilirubin.direct [Mass/Vol] 0.34 mg/dL 0.00-0.30 [facility] Iron measurement (mass/mass) Ordered By: Celeste Prema on 09-11-2022 Iron (Unsp spec) [Mass/Mass] 13 ug/dL 50-170 [facility] Ketones Test strip Ql (U)Ord ered By: Celeste Prema on 09-11-2022 Ketones Ql (U) 150 mg/dl Negative [facility] Comment on above: CRITICAL VALUE *HCRI TICAL VALUE VERIFIED. CALLED TO Giovanni LOYA RN [facility]09/11/22 Moe07 Gurvinder Estes.RESULTS READ BACK BY SAME. Laboratory - Chemistry and C hemistry - challengeOrdered By: Celeste Lloyd on 09-11-2022 ALP [Catalytic activity/Vol] 101 U/L 45-117 [facility] ALT [Catalytic activity/Vol] 19 U/L 13-56 [facility] Cobalamin (Vitamin B12) [Mass/Vol] 298 pg/mL 211-911 [facility] Globulin (S) [Mass/Vol] 3.8 g/dL 2.2-4.2 [facility] Magnesium [Mass/Vol] 2.0 mg/dL 1.6-2.6 [facility] Mucus LM Ql (Urine sed)Order ed By: Celeste Lloyd on 09-11-2022 Mucus Ql (Urine sed) 2+ /hpf [facility] Nitrite Test strip Ql (U)Ord ered By: Celeste Lloyd on 09-11-2022 Nitrite Ql (U) Negative Negative [facility] No Panel InformationOrdered By: Celeste Lloyd on 09-11-2022 Total Iron Binding Capacity 191 ug/dL 250-450 [facility] Protein Test strip Ql (U)Ord ered By: Celeste Lloyd on 09-11-2022 Protein Ql (U) 30 mg/dl Negative [facility] Serum or plasma albumin criss urement (mass/volume)Ordered By: Celeste Lloyd on 09-11-2022 Albumin [Mass/Vol] 1.9 g/dL 3.2-5.0 [facility] Serum or plasma ferritin trinity surement (mass/volume)Ordered By: Celeste Lloyd on 09-11-2022 Ferritin [Mass/Vol] 66 ng/mL 8-252 [facility] Serum or plasma folate measu rement (mass/volume)Ordered By: Celeste Lloyd on 09-11-2022 Folate [Mass/Vol] 19.90 ng/mL 3.1-55.4 [facility] Serum or plasma iron saturat ion measurement (mass fraction)Ordered By: Celeste Lloyd on 09-11-2022 Iron saturation [Mass fraction] 6.8 % 15.0-55.0 [facility] Squamous epithelial cells de tection in urine sediment by light microscopyOrdered By: Celeste Lloyd on 09-11-2022 Epithelial cells.squamous LM Ql (Urine sed) 0 SEEN /hpf 5-10 [facility] Thin prep Papanicolaou smear with manual screeningOrdered By: Celeste Lloyd on 09-11-2022 Thin prep Papanicolaou smear with manual screening 33 U/L 15-37 [facility] Urine blood detectionOrdered By: Celeste Lloyd on 09-11-2022 RBC Ql (U) 25 /ul Negative [facility] RBC Ql (U) 0-5 SEEN /hpf 0-5 [facility] Urine clarityOrdered By: Yola Lloyd on 09-11-2022 Clarity (U) Clear Clear [facility] Urine color determinationOrd ered By: Celeste Lloyd on 09-11-2022 Color (U) Yellow Yellow [facility] Urine glucose detectionOrder ed By: Celeste Lloyd on 09-11-2022 Glucose Ql (U) Normal mg/dl Normal [facility] Urine leukocyte esterase det ection by dipstickOrdered By: Celeste Lloyd on 09-11-2022 Leukocyte esterase Test strip Ql (U) 25 /ul Negative [facility] Urine pHOrdered By: Celeste delcid on 09-11-2022 pH (U) 6.0 [pH] 5.0 - 8.0 [facility] Urine sediment bacteria coun t by microscopy (number/high power field)Ordered By: Celeste Lloyd on 09-11-2022 Bacteria LM.HPF (Urine sed) [#/Area] Not Reportable [facility] Urine specific gravity measu rementOrdered By: Celeste Lloyd on 09-11-2022 Specific gravity (U) [Rel density] 1.025 1.002-1.030 [facility] Urobilinogen Auto test strip Ql (U)Ordered By: Celeste Lloyd on 09-11-2022 Urobilinogen Ql (U) Normal mg/dl Normal [facility] Basophil percentageOrdered B y: Saúl Manriquez on 09-10-2022 WBC (Bld) [#/Vol] 9.8 10*3/uL 4.4-11.0 [facility] Blood erythrocytes count (nu mber/volume)Ordered By: Saúl Manriquez on 09-10-2022 RBC (Bld) [#/Vol] 2.22 10*6/uL 4.2-5.4 [facility] Blood hemoglobin measurement (mass/volume)Ordered By: Saúl Manriquez on 09-10-2022 Hemoglobin (Bld) [Mass/Vol] 6.8 g/dL 12.0-15.0 [facility] Blood platelet mean volumeOr dered By: Saúl Manriquez on 09-10-2022 Platelet mean volume (Bld) [Entitic vol] 9.9 fL 6.2-12.0 [facility] Determination of erythrocyte mean corpuscular volume (MCV)Ordered By: Saúl Manriquez on 09-10-2022 MCV (RBC) [Entitic vol] 96.8 fL 81-99 [facility] Hematocrit Auto (Bld) [Volum e fraction]Ordered By: Saúl Manriquez on 09-10-2022 Hematocrit (Bld) [Volume fraction] 21.5 % 37-47 [facility] Laboratory - Hematology and Cell countsOrdered By: Saúl Manriquez on 09-10-2022 Erythrocyte distribution width (RBC) [Entitic vol] 47.0 fL 35.1-43.9 [facility] Erythrocyte distribution width (RBC) [Ratio] 13.2 % 11.6-14.6 [facility] MCH (RBC) [Entitic mass] 30.6 pg 27.0-32.0 [facility] MCHC Auto (RBC) [Mass/Vol]Or dered By: Saúl Manriquez on 09-10-2022 MCHC (RBC) [Mass/Vol] 31.6 g/dL 32-36 [facility] Platelets bldOrdered By: Alexy Manriquez on 09-10-2022 Platelets (Bld) [#/Vol] 214 10*3/uL 150-450 [facility] Absolute lymphocyte countOrd ered By: Luis Ashley on 09-09-2022 Lymphocytes Auto (Unsp spec) [#/Vol] 0.94 10*3/uL 0.83-4.51 [facility] Basophil percentageOrdered B y: Luis Ashley on 09-09-2022 Basophils/100 WBC (Bld) 0.3 % 0-1 [facility] Chloride [Moles/Vol] 111 mmol/L 98-107 [facility] Eosinophils/100 WBC (Bld) 0.1 % 0-5 [facility] Glucose [Mass/Vol] 122 mg/dL 74-106 [facility] Comment on above: Fasting Glucose resu lt from 100 to 125 mg/dL suggests IMPAIRED HOMEOSTASIS per A.D.A. criteria. Neutrophils (Bld) [#/Vol] 7.2 10*3/uL 2.0-7.7 [facility] Neutrophils/100 WBC (Bld) 78.0 % 47-70 [facility] Potassium [Moles/Vol] 4.1 mmol/L 3.5-5.1 [facility] Sodium [Moles/Vol] 140 mmol/L 136-145 [facility] Blood lymphocytes/100 leukoc ytesOrdered By: Luis Ashley on 09-09-2022 Lymphocytes/100 WBC (Bld) 10.2 % 19-41 [facility] Blood monocytes/100 leukocyt esOrdered By: Luis Ashley on 09-09-2022 Monocytes/100 WBC (Bld) 10.9 % 0-10 [facility] Laboratory - Chemistry and C hemistry - challengeOrdered By: Luis Ashley on 09-09-2022 CO2 [Moles/Vol] 23.0 mmol/L 21.0-32.0 [facility] Urea nitrogen/Creatinine [Mass ratio] 21.7 mg/mg 10-20 [facility] Laboratory - Hematology and Cell countsOrdered By: Luis Ashley on 09-09-2022 Immature granulocytes/100 WBC (Bld) 0.500 % 0.0-0.9 [facility] Comment on above: IG% - Immature Granu locytes (promyelocytes, myelocytes and metamyelocytes) > 1% indicates that a LEFT SHIFT is Present. Nucleated RBC/100 WBC (Bld) [Ratio] 0 % 0-5 [facility] No Panel InformationOrdered By: Luis Ashley on 09-09-2022 Estimated Creatinine Clearance Calc 49.24 ml/min [facility] Estimated GFR (MDRD) Amer 116 mL/min >60 [facility] Comment on above: GFR Calc Estimated GFR (MDRD) Non-Af Amer 96 mL/min >60 [facility] Comment on above: Non- GFR Calc Vitamin D 25-Hydroxy 81.1 ng/mL [facility] Comment on above: Vitamin D 25(OH) Sta tus Range Deficiency <20 ng/mL (50nmol/L) Insufficiency 20 - 30 ng/mL (50 - 75 nmol/L) Sufficiency 30 - 100 ng/mL (75 - 250 nmol/L) Toxicity >100 ng/mL (>250 nmol/L) Serum or plasma calcium criss urement (mass/volume)Ordered By: Luis Ashley on 09-09-2022 Calcium [Mass/Vol] 7.8 mg/dL 8.5-10.1 [facility] Serum or plasma creatinine m easurement (mass/volume)Ordered By: Luis Ashley on 09-09-2022 Creatinine [Mass/Vol] 0.64 mg/dL 0.55-1.02 [facility] Comment on above: The validity of the calculated GFR & GFRAA in patients over 70 years has not been determined. Clinical correlation is essential. Serum or plasma urea nitroge n measurement (mass/volume)Ordered By: Luis Ashley on 09-09-2022 Urea nitrogen [Mass/Vol] 14 mg/dL 7-18 [facility] Thin prep Papanicolaou smear with manual screeningOrdered By: Luis Ashley on 09-09-2022 Thin prep Papanicolaou smear with manual screening 6 5-15 [facility] Basophil percentageOrdered B y: Yessenia Andres on 09-08-2022 Bilirubin [Mass/Vol] 0.80 mg/dL 0.20-1.00 [facility] Comment on above: For patients on eltr ombopag therapy, use of Dimension [place] TBIL is not recommended. Protein [Mass/Vol] 6.7 g/dL 6.4-8.2 [facility] INR in Blood by Coagulation assayOrdered By: Pawel Raygoza on 09-08-2022 INR Coag (Bld) [Relative time] 1.1 {INR} [facility] Laboratory - Chemistry and C hemistry - challengeOrdered By: Yessenia Andres on 09-08-2022 ALP [Catalytic activity/Vol] 97 U/L 45-117 [facility] ALT [Catalytic activity/Vol] 22 U/L 13-56 [facility] Globulin (S) [Mass/Vol] 3.8 g/dL 2.2-4.2 [facility] Laboratory - CoagulationOrde red By: Pawel Raygoza on 09-08-2022 aPTT Coag (Bld) [Time] 27.3 s 24.1-36.2 [facility] PT Coag (PPP) [Time] 14.3 s 11.7-14.9 [facility] No Panel InformationOrdered By: Pawel Raygoza on 09-08-2022 Thyroid Stimulating Hormone (TSH) 0.59 uIU/mL 0.358-3.74 [facility] Serum or plasma albumin criss urement (mass/volume)Ordered By: Yessenia Andres on 09-08-2022 Albumin [Mass/Vol] 2.9 g/dL 3.2-5.0 [facility] Serum or plasma albumin/glob ulin mass ratioOrdered By: Yessenia Dmitry on 09-08-2022 Albumin/Globulin [Mass ratio] 0.8 {ratio} 0.9-2.4 [facility] Thin prep Papanicolaou smear with manual screeningOrdered By: Yessenia Andres on 09-08-2022 Thin prep Papanicolaou smear with manual screening 25 U/L 15-37 [facility] Absolute lymphocyte countOrd ered By: Dr. Wooten on 09-07-2022 Lymphocytes Auto (Unsp spec) [#/Vol] 1.37 10*3/uL 0.83-4.51 [facility] Amorphous sediment detection in urine sediment by light microscopyOrdered By: Dr. Wooten on 09-07-2022 Amorphous sediment LM Ql (Urine sed) 1+ URATE [facility] Basophil percentageOrdered B y: Dr. Wooten on 09-07-2022 Basophil percentage 0-5 SEEN /hpf 0-5 [facility] Basophils/100 WBC (Bld) 0.6 % 0-1 [facility] Chloride [Moles/Vol] 111 mmol/L 98-107 [facility] Eosinophils/100 WBC (Bld) 3.8 % 0-5 [facility] Glucose [Mass/Vol] 102 mg/dL 74-106 [facility] Comment on above: Fasting Glucose resu lt from 100 to 125 mg/dL suggests IMPAIRED HOMEOSTASIS per A.D.A. criteria. Neutrophils (Bld) [#/Vol] 5.5 10*3/uL 2.0-7.7 [facility] Neutrophils/100 WBC (Bld) 70.1 % 47-70 [facility] Potassium [Moles/Vol] 4.2 mmol/L 3.5-5.1 [facility] Sodium [Moles/Vol] 140 mmol/L 136-145 [facility] WBC (Bld) [#/Vol] 7.8 10*3/uL 4.4-11.0 [facility] Bilirubin Test strip Ql (U)O rdered By: Dr. Wooten on 09-07-2022 Bilirubin Ql (U) Negative Negative [facility] Blood erythrocytes count (nu mber/volume)Ordered By: Dr. Wooten on 09-07-2022 RBC (Bld) [#/Vol] 3.80 10*6/uL 4.2-5.4 [facility] Blood hemoglobin measurement (mass/volume)Ordered By: Dr. Wooten on 09-07-2022 Hemoglobin (Bld) [Mass/Vol] 11.7 g/dL 12.0-15.0 [facility] Blood lymphocytes/100 leukoc ytesOrdered By: Dr. Wooten on 09-07-2022 Lymphocytes/100 WBC (Bld) 17.5 % 19-41 [facility] Blood monocytes/100 leukocyt esOrdered By: Dr. Wooten on 09-07-2022 Monocytes/100 WBC (Bld) 7.7 % 0-10 [facility] Blood platelet mean volumeOr dered By: Dr. Wooten on 09-07-2022 Platelet mean volume (Bld) [Entitic vol] 9.8 fL 6.2-12.0 [facility] Culture, urineOrdered By: Agnieszka Andres on 09-07-2022 Bacteria identified Cx Nom (U) Escherichia coli [facility] Determination of erythrocyte mean corpuscular volume (MCV)Ordered By: Dr. Wooten on 09-07-2022 MCV (RBC) [Entitic vol] 94.7 fL 81-99 [facility] Hematocrit Auto (Bld) [Volum e fraction]Ordered By: Dr. Wooten on 09-07-2022 Hematocrit (Bld) [Volume fraction] 36.0 % 37-47 [facility] Ketones Test strip Ql (U)Ord ered By: Dr. Wooten on 09-07-2022 Ketones Ql (U) 5 mg/dl Negative [facility] Laboratory - Chemistry and C hemistry - challengeOrdered By: Dr. Wooten on 09-07-2022 CO2 [Moles/Vol] 22.0 mmol/L 21.0-32.0 [facility] Urea nitrogen/Creatinine [Mass ratio] 25.9 mg/mg 10-20 [facility] Laboratory - Hematology and Cell countsOrdered By: Dr. Wooten on 09-07-2022 Erythrocyte distribution width (RBC) [Entitic vol] 45.5 fL 35.1-43.9 [facility] Erythrocyte distribution width (RBC) [Ratio] 13.0 % 11.6-14.6 [facility] Immature granulocytes/100 WBC (Bld) 0.300 % 0.0-0.9 [facility] Comment on above: IG% - Immature Granu locytes (promyelocytes, myelocytes and metamyelocytes) > 1% indicates that a LEFT SHIFT is Present. MCH (RBC) [Entitic mass] 30.8 pg 27.0-32.0 [facility] Nucleated RBC/100 WBC (Bld) [Ratio] 0 % 0-5 [facility] MCHC Auto (RBC) [Mass/Vol]Or dered By: Dr. Wooten on 09-07-2022 MCHC (RBC) [Mass/Vol] 32.5 g/dL 32-36 [facility] Mucus LM Ql (Urine sed)Order ed By: Dr. Wooten on 09-07-2022 Mucus Ql (Urine sed) 0 SEEN /hpf [facility] Nitrite Test strip Ql (U)Ord ered By: Dr. Wooten on 09-07-2022 Nitrite Ql (U) Positive Negative [facility] No Panel InformationOrdered By: Dr. Wooten on 09-07-2022 Estimated Creatinine Clearance Calc 45.98 ml/min [facility] Estimated GFR (MDRD) Amer 89 mL/min >60 [facility] Comment on above: GFR Calc Estimated GFR (MDRD) Non-Af Amer 73 mL/min >60 [facility] Comment on above: Non- GFR Calc Platelets bldOrdered By: Dr. Wooten on 09-07-2022 Platelets (Bld) [#/Vol] 296 10*3/uL 150-450 [facility] Protein Test strip Ql (U)Ord ered By: Dr. Wooten on 09-07-2022 Protein Ql (U) 15 mg/dl Negative [facility] Serum or plasma calcium criss urement (mass/volume)Ordered By: Dr. Wooten on 09-07-2022 Calcium [Mass/Vol] 8.4 mg/dL 8.5-10.1 [facility] Serum or plasma creatinine m easurement (mass/volume)Ordered By: Dr. Wooten on 09-07-2022 Creatinine [Mass/Vol] 0.81 mg/dL 0.55-1.02 [facility] Comment on above: The validity of the calculated GFR & GFRAA in patients over 70 years has not been determined. Clinical correlation is essential. Serum or plasma urea nitroge n measurement (mass/volume)Ordered By: Dr. Wooten on 09-07-2022 Urea nitrogen [Mass/Vol] 21 mg/dL 7-18 [facility] Squamous epithelial cells de tection in urine sediment by light microscopyOrdered By: Dr. Wooten on 09-07-2022 Epithelial cells.squamous LM Ql (Urine sed) 0-5 SEEN /hpf 5-10 [facility] Thin prep Papanicolaou smear with manual screeningOrdered By: Dr. Wooten on 09-07-2022 Thin prep Papanicolaou smear with manual screening 7 5-15 [facility] Urine blood detectionOrdered By: Dr. Wooten on 09-07-2022 RBC Ql (U) 50 /ul Negative [facility] RBC Ql (U) 0-5 SEEN /hpf 0-5 [facility] Urine clarityOrdered By: Dr. Wooten on 09-07-2022 Clarity (U) Sl. Cloudy Clear [facility] Urine color determinationOrd ered By: Dr. Wooten on 09-07-2022 Color (U) Yellow Yellow [facility] Urine glucose detectionOrder ed By: Dr. Wooten on 09-07-2022 Glucose Ql (U) Normal mg/dl Normal [facility] Urine leukocyte esterase det ection by dipstickOrdered By: Dr. Wooten on 09-07-2022 Leukocyte esterase Test strip Ql (U) 25 /ul Negative [facility] Urine pHOrdered By: Dr. Farhat anderson on 09-07-2022 pH (U) 6.0 [pH] 5.0 - 8.0 [facility] Urine sediment bacteria coun t by microscopy (number/high power field)Ordered By: Dr. Wooten on 09-07-2022 Bacteria LM.HPF (Urine sed) [#/Area] RARE /hpf None Seen [facility] Urine specific gravity measu rementOrdered By: Dr. Wooten on 09-07-2022 Specific gravity (U) [Rel density] 1.020 1.002-1.030 [facility] Urobilinogen Auto test strip Ql (U)Ordered By: Dr. Wooten on 09-07-2022 Urobilinogen Ql (U) Normal mg/dl Normal [facility] GENOVEVA SCREENINGon 06-24-2021 [facility] Vital Signs Date Time Vital Sign Value Performing Clinician Facility 10-12-2024 14:18-0400 Body mass index (BMI) [Ratio] 25.69 kg/m2 Vera Pompa MD Work Phone: [facility] 10-12-2024 14:18-0400 Body weight 57.7 kg Vera Pompa MD Work Phone: [facility] 10-12-2024 14:18-0400 Diastolic blood pressure 70 mm[Hg] Vera Pompa MD Work Phone: [facility] 10-12-2024 14:18-0400 Heart rate 72 /min Vera Pompa MD Work Phone: [facility] 10-12-2024 14:18-0400 Respiratory rate 16 /min Vera Pompa MD Work Phone: [facility] 10-12-2024 14:18-0400 Systolic blood pressure 118 mm[Hg] Vera Pompa MD Work Phone: [facility] 10-09-2024 18:37-0400 Body temperature 97.6 [degF] Dr. Vera Pompa MD Work Phone: [facility] 10-09-2024 18:37-0400 Diastolic blood pressure 87 mm[Hg] Dr. Vera Pompa MD Work Phone: [facility] 10-09-2024 18:37-0400 Heart rate 72 /min Dr. Vera Pompa MD Work Phone: 5([phone])431-053508 [place] [address] 10-09-2024 18:37-0400 Respiratory rate 16 /min Dr. Vera Pompa MD Work Phone: 1(450)477-638149 [place] [address] 10-09-2024 18:37-0400 SaO2% (BldA) [Mass fraction] 100 % Dr. Vera Pompa MD Work Phone: 2([phone])519-157849 [place] [address] 10-09-2024 18:37-0400 Systolic blood pressure 137 mm[Hg] Dr. Vera Pompa MD Work Phone: 7(489)118-096949 [place] [address] 10-09-2024 13:25-0400 Body mass index (BMI) [Ratio] 26.3 kg/m2 Dr. Vera Pompa MD Work Phone: 7(286)203-864149 [place] [address] 10-09-2024 13:25-0400 Body weight 59.[address] Vera Pompa MD Work Phone: 4(200)325-303549 [place] [address] 10-09-2024 13:00-0400 Body height 149.[address] Vera Pompa MD Work Phone: 3(373)043-797949 [place] [address] 09-23-2024 14:34-0400 Body temperature 98.3 [degF] Dr. Vera Pompa MD Work Phone: 6(807)654-749349 [place] [address] 09-23-2024 14:34-0400 Diastolic blood pressure 91 mm[Hg] Dr. Vera Pompa MD Work Phone: 4(666)377-620308 [place] [address] 09-23-2024 14:34-0400 Heart rate 74 /min Dr. Vera Pompa MD Work Phone: 7(642)387-868449 [place] [address] 09-23-2024 14:34-0400 Respiratory rate 16 /min Dr. Vera Pompa MD Work Phone: 7([phone])843-173108 [place] [address] 09-23-2024 14:34-0400 SaO2% (BldA) [Mass fraction] 93 % Dr. Vera Pompa MD Work Phone: 2([phone])[phone] [place] [address] 09-23-2024 14:34-0400 Systolic blood pressure 181 mm[Hg] Dr. Vera Pompa MD Work Phone: [facility] 09-23-2024 10:24-0400 Body height 149.[address] Vera Pompa MD Work Phone: [facility] 09-13-2024 16:48-0400 Body temperature 97.9 [degF] Dr. Vera Pompa MD Work Phone: [facility] 09-13-2024 16:48-0400 Diastolic blood pressure 86 mm[Hg] Dr. Vera Pompa MD Work Phone: [facility] 09-13-2024 16:48-0400 Heart rate 89 /min Dr. Vera Pompa MD Work Phone: [facility] 09-13-2024 16:48-0400 Respiratory rate 16 /min Dr. Vera Pompa MD Work Phone: [facility] 09-13-2024 16:48-0400 SaO2% (BldA) [Mass fraction] 99 % Dr. Vera Pompa MD Work Phone: [facility] 09-13-2024 16:48-0400 Systolic blood pressure 141 mm[Hg] Dr. Vera Pompa MD Work Phone: [facility] 09-13-2024 14:56-0400 Body height 149.[address] Vera Pompa MD Work Phone: [facility] 09-03-2024 11:57-0400 Body height 149.9 cm Vera Pompa MD Work Phone: [facility] 09-03-2024 11:57-0400 Body mass index (BMI) [Ratio] 26.63 kg/m2 Vera Pompa MD Work Phone: [facility] 09-03-2024 11:57-0400 Body weight 59.8 kg Vera Pompa MD Work Phone: [facility] 09-03-2024 11:57-0400 Diastolic blood pressure 78 mm[Hg] Vera Pompa MD Work Phone: [facility] 09-03-2024 11:57-0400 Heart rate 86 /min Vera Pompa MD Work Phone: [facility] 09-03-2024 11:57-0400 Respiratory rate 16 /min Vera Pompa MD Work Phone: [facility] 09-03-2024 11:57-0400 SaO2% (BldA) [Mass fraction] 99 % Vera Pompa MD Work Phone: [facility] 09-03-2024 11:57-0400 Systolic blood pressure 128 mm[Hg] Vera Pompa MD Work Phone: [facility] 08-21-2024 17:54-0400 Body temperature 97.4 [degF] Dr. Vera Pompa MD Work Phone: [facility] 08-21-2024 17:54-0400 Diastolic blood pressure 84 mm[Hg] Dr. Vera Pompa MD Work Phone: [facility] 08-21-2024 17:54-0400 Heart rate 74 /min Dr. Vera Pompa MD Work Phone: [facility] 08-21-2024 17:54-0400 Respiratory rate 16 /min Dr. Vera Pompa MD Work Phone: [facility] 08-21-2024 17:54-0400 SaO2% (BldA) [Mass fraction] 98 % Dr. Vera Pompa MD Work Phone: [facility] 08-21-2024 17:54-0400 Systolic blood pressure 168 mm[Hg] Dr. Vera Pompa MD Work Phone: [facility] 08-21-2024 15:44-0400 Body height 152.[address] Vera Pompa MD Work Phone: [facility] 06-21-2024 14:28-0400 Diastolic blood pressure 84 mm[Hg] Nuzhat Naik APRN.CNP Work Phone: [facility] 06-21-2024 14:28-0400 Systolic blood pressure 131 mm[Hg] Nuzhat Naik DIRECTOR OF STUDENT AFFAIRS.TECHNICAL STENOGRAPHER Work Phone: [facility] 06-21-2024 13:56-0400 Body height 152.4 cm Nuzhat Naik DIRECTOR OF STUDENT AFFAIRS.TECHNICAL STENOGRAPHER Work Phone: [facility] 06-21-2024 13:56-0400 Body mass index (BMI) [Ratio] 25.39 kg/m2 Nuzhat Naik DIRECTOR OF STUDENT AFFAIRS.TECHNICAL STENOGRAPHER Work Phone: [facility] 06-21-2024 13:56-0400 Body weight 58.97 kg Nuzhat Naik DIRECTOR OF STUDENT AFFAIRS.TECHNICAL STENOGRAPHER Work Phone: [facility] 06-21-2024 13:56-0400 Heart rate 84 /min Nuzhat Naik APRN.TECHNICAL STENOGRAPHER Work Phone: [facility] 06-21-2024 13:56-0400 SaO2% (BldA) [Mass fraction] 96 % Nuzhat Naik DIRECTOR OF STUDENT AFFAIRS.TECHNICAL STENOGRAPHER Work Phone: [facility] 05-25-2024 11:00-0400 Body temperature 97.9 [degF] Dr. Vera Pompa MD Work Phone: [facility] 05-25-2024 11:00-0400 Diastolic blood pressure 82 mm[Hg] Dr. Vera Pompa MD Work Phone: [facility] 05-25-2024 11:00-0400 Heart rate 75 /min Dr. Vera Pompa MD Work Phone: [facility] 05-25-2024 11:00-0400 Respiratory rate 16 /min Dr. Vera Pompa MD Work Phone: [facility] 05-25-2024 11:00-0400 SaO2% (BldA) [Mass fraction] 95 % Dr. Vera Pompa MD Work Phone: [facility] 05-25-2024 11:00-0400 Systolic blood pressure 158 mm[Hg] Dr. Vera Pompa MD Work Phone: 1(526)874-919649 [place] [address] 05-23-2024 13:17-0400 Inhaled oxygen flow rate 98 L/min Dr. Vera Pompa MD Work Phone: 1(253)653-762149 [place] [address] 05-22-2024 12:09-0400 Body mass index (BMI) [Ratio] 25.4 kg/m2 Dr. Vera Pompa MD Work Phone: 8(412)129-924549 [place] [address] 05-22-2024 12:09-0400 Body weight 59.[address] Vera Pompa MD Work Phone: 1(501)220-320849 [place] [address] 05-16-2024 13:39-0500 Body height 152.[address] Vera Pompa MD Work Phone: 3(311)772-342149 [place] [address] 05-15-2024 11:50-0500 Inhaled oxygen concentration 99 % Dr. Vera Pompa MD Work Phone: 1(866)016-713349 [place] [address] 05-05-2024 19:00-0500 Diastolic blood pressure 86 mm[Hg] Dr. Vera Pompa MD Work Phone: 3(277)910-217149 [place] [address] 05-05-2024 19:00-0500 Heart rate 95 /min Dr. Vera Pompa MD Work Phone: 7(355)067-345049 [place] [address] 05-05-2024 19:00-0500 Respiratory rate 18 /min Dr. Vera Pompa MD Work Phone: 4(408)149-400549 [place] [address] 05-05-2024 19:00-0500 SaO2% (BldA) [Mass fraction] 95 % Dr. Vera Pompa MD Work Phone: 7(045)849-354449 [place] [address] 05-05-2024 19:00-0500 Systolic blood pressure 159 mm[Hg] Dr. Vera Pompa MD Work Phone: 4(422)857-830649 [place] [address] 05-05-2024 16:59-0500 Body temperature 97.9 [degF] Dr. Vera Pompa MD Work Phone: 2(483)104-890749 [place] [address] 05-05-2024 16:06-0500 Body mass index (BMI) [Ratio] 27 kg/m2 Dr. Vera Pompa MD Work Phone: [facility] 05-05-2024 16:06-0500 Body weight 62.[address] Vera Pompa MD Work Phone: [facility] 09-01-2023 09:43-0400 Body mass index (BMI) [Ratio] 27.24 kg/m2 Apryl Gorman DIRECTOR OF STUDENT AFFAIRS.TECHNICAL STENOGRAPHER Work Phone: [facility] 09-01-2023 09:43-0400 Body weight 61.69 kg Apryl Gorman DIRECTOR OF STUDENT AFFAIRS.TECHNICAL STENOGRAPHER Work Phone: [facility] 09-01-2023 09:43-0400 Diastolic blood pressure 80 mm[Hg] Apryl Gorman DIRECTOR OF STUDENT AFFAIRS.TECHNICAL STENOGRAPHER Work Phone: [facility] 09-01-2023 09:43-0400 Heart rate 83 /min Apryl Gorman DIRECTOR OF STUDENT AFFAIRS.TECHNICAL STENOGRAPHER Work Phone: [facility] 09-01-2023 09:43-0400 Respiratory rate 16 /min Apryl Gorman DIRECTOR OF STUDENT AFFAIRS.TECHNICAL STENOGRAPHER Work Phone: [facility] 09-01-2023 09:43-0400 SaO2% (BldA) [Mass fraction] 95 % Apryl Gorman DIRECTOR OF STUDENT AFFAIRS.TECHNICAL STENOGRAPHER Work Phone: [facility] 09-01-2023 09:43-0400 Systolic blood pressure 114 mm[Hg] Apryl Gorman DIRECTOR OF STUDENT AFFAIRS.TECHNICAL STENOGRAPHER Work Phone: [facility] 08-29-2023 12:59-0400 Body mass index (BMI) [Ratio] 27.81 kg/m2 Kamlesh Sheppard MD Work Phone: [facility] 08-29-2023 12:59-0400 Body temperature 98.29 [degF] Kamlesh Sheppard MD Work Phone: [facility] 08-29-2023 12:59-0400 Body weight 63 kg Kamlesh Sheppard MD Work Phone: [facility] 08-29-2023 12:59-0400 Diastolic blood pressure 84 mm[Hg] Kamlesh Sheppard MD Work Phone: [facility] 08-29-2023 12:59-0400 Heart rate 99 /min Kamlesh Sheppard MD Work Phone: [facility] 08-29-2023 12:59-0400 Respiratory rate 21 /min Kamlesh Sheppard MD Work Phone: [facility] 08-29-2023 12:59-0400 SaO2% (BldA) [Mass fraction] 95 % Kamlesh Sheppard MD Work Phone: [facility] 08-29-2023 12:59-0400 Systolic blood pressure 140 mm[Hg] Kamlesh Sheppard MD Work Phone: [facility] 05-30-2023 12:27-0400 Body weight 63.05 kg Apryl Gorman DIRECTOR OF STUDENT AFFAIRS.TECHNICAL STENOGRAPHER Work Phone: [facility] 05-30-2023 12:27-0400 Diastolic blood pressure 88 mm[Hg] Apryl Hernandezhof DIRECTOR OF STUDENT AFFAIRS.TECHNICAL STENOGRAPHER Work Phone: [facility] 05-30-2023 12:27-0400 Heart rate 90 /min Apryl Hernandezhof DIRECTOR OF STUDENT AFFAIRS.TECHNICAL STENOGRAPHER Work Phone: [facility] 05-30-2023 12:27-0400 Respiratory rate 16 /min Apryl Hernandezhof DIRECTOR OF STUDENT AFFAIRS.TECHNICAL STENOGRAPHER Work Phone: [facility] 05-30-2023 12:27-0400 SaO2% (BldA) [Mass fraction] 97 % Apryl Hernandezhof DIRECTOR OF STUDENT AFFAIRS.TECHNICAL STENOGRAPHER Work Phone: [facility] 05-30-2023 12:27-0400 Systolic blood pressure 136 mm[Hg] Apryl Tannhof DIRECTOR OF STUDENT AFFAIRS.TECHNICAL STENOGRAPHER Work Phone: [facility] 05-25-2023 17:35-0400 Body temperature 98.3 [degF] [facility] 05-25-2023 17:35-0400 Diastolic blood pressure 82 mm[Hg] [facility] 05-25-2023 17:35-0400 Heart rate 86 /min [facility] 05-25-2023 17:35-0400 Respiratory rate 16 /min [facility] 05-25-2023 17:35-0400 SaO2% (BldA) [Mass fraction] 95 % [facility] 05-25-2023 17:35-0400 Systolic blood pressure 149 mm[Hg] [facility] 05-25-2023 12:49-0400 Body height 149.86 cm [facility] 05-25-2023 12:49-0400 Body mass index (BMI) [Ratio] 27.7 kg/m2 [facility] 05-25-2023 12:49-0400 Body weight 62.32 kg [facility] 01-05-2023 12:51-0400 Body weight 61.24 kg Apryl Daniellef DIRECTOR OF STUDENT AFFAIRS.TECHNICAL STENOGRAPHER Work Phone: [facility] 01-05-2023 12:51-0400 Diastolic blood pressure 88 mm[Hg] Apryl Hernandezhof DIRECTOR OF STUDENT AFFAIRS.TECHNICAL STENOGRAPHER Work Phone: [facility] 01-05-2023 12:51-0400 Heart rate 86 /min Apryl Hernandezhof DIRECTOR OF STUDENT AFFAIRS.TECHNICAL STENOGRAPHER Work Phone: [facility] 01-05-2023 12:51-0400 Respiratory rate 16 /min Apryl Daniellef DIRECTOR OF STUDENT AFFAIRS.TECHNICAL STENOGRAPHER Work Phone: [facility] 01-05-2023 12:51-0400 SaO2% (BldA) [Mass fraction] 98 % Apryl Daniellef DIRECTOR OF STUDENT AFFAIRS.TECHNICAL STENOGRAPHER Work Phone: [facility] 01-05-2023 12:51-0400 Systolic blood pressure 128 mm[Hg] Apryl Daniellef DIRECTOR OF STUDENT AFFAIRS.TECHNICAL STENOGRAPHER Work Phone: [facility] 10-01-2022 09:50-0400 Body temperature 98.3 [degF] Dr. Vera Pompa Work Phone: [facility] 10-01-2022 09:50-0400 Diastolic blood pressure 70 mm[Hg] Dr. Vera Pompa Work Phone: 1(495)704-370008 [place] [address] 10-01-2022 09:50-0400 Heart rate 83 /min Dr. Vera Pompa Work Phone: 0(758)077-601349 [place] [address] 10-01-2022 09:50-0400 Respiratory rate 16 /min Dr. Vera Pompa Work Phone: 3(963)206-255949 [place] [address] 10-01-2022 09:50-0400 SaO2% (BldA) [Mass fraction] 99 % Dr. Vera Pompa Work Phone: 6(816)728-304649 [place] [address] 10-01-2022 09:50-0400 Systolic blood pressure 130 mm[Hg] Dr. Vera Pompa Work Phone: 0(827)541-764749 [place] [address] 09-28-2022 08:20-0400 Body mass index (BMI) [Ratio] 26.6 kg/m2 Dr. Vera Pompa Work Phone: 3(977)603-402249 [place] [address] 09-28-2022 08:20-0400 Body weight 61.[address] Vera Pompa Work Phone: 5(797)416-222549 [place] [address] 09-22-2022 12:01-0400 Body height 152.[address] Vera Pompa Work Phone: 3(507)618-092249 [place] [address] 09-10-2022 16:47-0400 Inhaled oxygen flow rate 1.5 L/min Dr. Vera Pompa Work Phone: 3(723)053-378649 [place] [address] 09-10-2022 13:29-0400 Body temperature 99.1 [degF] Dr. Vera Pompa Work Phone: 8(414)990-201149 [place] [address] 09-10-2022 13:29-0400 Diastolic blood pressure 74 mm[Hg] Dr. Vera Pompa Work Phone: 6(332)662-128449 [place] [address] 09-10-2022 13:29-0400 Heart rate 106 /min Dr. Vera Pompa Work Phone: 9(249)078-534849 [place] [address] 09-10-2022 13:29-0400 Inhaled oxygen flow rate 1.5 L/min Dr. Vera Pompa Work Phone: 2(676)320-638808 [place] [address] 09-10-2022 13:29-0400 Respiratory rate 16 /min Dr. Vera Pompa Work Phone: 6(553)205-598249 [place] [address] 09-10-2022 13:29-0400 SaO2% (BldA) [Mass fraction] 93 % Dr. Vera Pompa Work Phone: 4(666)680-589549 [place] [address] 09-10-2022 13:29-0400 Systolic blood pressure 127 mm[Hg] Dr. Vera Pompa Work Phone: 4(544)464-647649 [place] [address] 09-08-2022 14:16-0400 Body height 151.[address] Vera Pompa Work Phone: 8(049)195-974149 [place] [address] 09-08-2022 14:16-0400 Body mass index (BMI) [Ratio] 27.3 kg/m2 Dr. Vera Pompa Work Phone: 0(053)344-884649 [place] [address] 09-08-2022 14:16-0400 Body weight 63.[address] Vera Pompa Work Phone: 2(906)983-174649 [place] [address] 09-07-2022 20:03-0400 Body temperature 97 [degF] Dr. Vera Pompa Work Phone: 3(586)304-581749 [place] [address] 09-07-2022 20:03-0400 Diastolic blood pressure 91 mm[Hg] Dr. Vera Pompa Work Phone: 9(534)338-290649 [place] [address] 09-07-2022 20:03-0400 Heart rate 91 /min Dr. Vera Pompa Work Phone: 2(571)616-604949 [place] [address] 09-07-2022 20:03-0400 Respiratory rate 14 /min Dr. Vera Pompa Work Phone: 6(010)949-706249 [place] [address] 09-07-2022 20:03-0400 SaO2% (BldA) [Mass fraction] 92 % Dr. Vera Pompa Work Phone: 1(416)052-758149 [place] [address] 09-07-2022 20:03-0400 Systolic blood pressure 159 mm[Hg] Dr. Vera Pompa Work Phone: 2(054)014-340649 [place] [address] 09-07-2022 16:57-0400 Body height [address] Vera Pompa Work Phone: [facility] 09-07-2022 16:57-0400 Body mass index (BMI) [Ratio] 30.4 kg/m2 Dr. Vera Pompa Work Phone: [facility] 09-07-2022 16:57-0400 Body weight 74.[address] Vera Pompa Work Phone: [facility] 12-24-2021 12:09-0400 Diastolic blood pressure 90 mm[Hg] Apryl Davidhof DIRECTOR OF STUDENT AFFAIRS.TECHNICAL STENOGRAPHER Work Phone: [facility] 12-24-2021 12:09-0400 Systolic blood pressure 119 mm[Hg] Apryl Hernandezhof DIRECTOR OF STUDENT AFFAIRS.TECHNICAL STENOGRAPHER Work Phone: [facility] 12-24-2021 10:59-0400 Body weight 62.6 kg Apryl Hernandezhof DIRECTOR OF STUDENT AFFAIRS.TECHNICAL STENOGRAPHER Work Phone: [facility] 12-24-2021 10:59-0400 Heart rate 85 /min Apryl Hernandezhof DIRECTOR OF STUDENT AFFAIRS.TECHNICAL STENOGRAPHER Work Phone: [facility] 12-24-2021 10:59-0400 Respiratory rate 16 /min Apryl Hernandezhof DIRECTOR OF STUDENT AFFAIRS.TECHNICAL STENOGRAPHER Work Phone: [facility] 12-24-2021 10:59-0400 SaO2% (BldA) [Mass fraction] 96 % Apryl Tannhof DIRECTOR OF STUDENT AFFAIRS.TECHNICAL STENOGRAPHER Work Phone: [facility] 08-24-2021 10:53-0400 Body height 150.5 cm Shanta Washington DIRECTOR OF STUDENT AFFAIRS.TECHNICAL STENOGRAPHER Work Phone: [facility] 08-24-2021 10:53-0400 Body weight 63.05 kg Shanta Washington DIRECTOR OF STUDENT AFFAIRS.TECHNICAL STENOGRAPHER Work Phone: [facility] 08-24-2021 10:53-0400 Diastolic blood pressure 80 mm[Hg] Shanta Washington DIRECTOR OF STUDENT AFFAIRS.TECHNICAL STENOGRAPHER Work Phone: [facility] 08-24-2021 10:53-0400 Heart rate 83 /min Shanta Washington DIRECTOR OF STUDENT AFFAIRS.TECHNICAL STENOGRAPHER Work Phone: [facility] 08-24-2021 10:53-0400 SaO2% (BldA) [Mass fraction] 98 % Shanta Washington DIRECTOR OF STUDENT AFFAIRS.TECHNICAL STENOGRAPHER Work Phone: [facility] 08-24-2021 10:53-0400 Systolic blood pressure 132 mm[Hg] Shanta Washington DIRECTOR OF STUDENT AFFAIRS.TECHNICAL STENOGRAPHER Work Phone: [facility] 06-22-2021 11:38-0400 Body weight 63.19 kg Vera Pompa MD Work Phone: [facility] 06-22-2021 11:38-0400 Diastolic blood pressure 74 mm[Hg] Vera Pompa MD Work Phone: [facility] 06-22-2021 11:38-0400 Heart rate 68 /min Vera Pompa MD Work Phone: [facility] 06-22-2021 11:38-0400 Respiratory rate 16 /min Vera Pompa MD Work Phone: [facility] 06-22-2021 11:38-0400 Systolic blood pressure 118 mm[Hg] Vera Pompa MD Work Phone: [facility] Encounters Encounter Date Encounter Type Care Provider Facility Start: 01-24-2025 ambulatory [facility] Facility [facility] Start: 01-24-2025 End: 01-24-2025 ambulatory Monika Chaidez Facility:[facility] Start: 01-15-2025 End: 01-15-2025 ambulatory [facility] Facility:[facility] Start: 01-14-2025 End: 01-14-2025 Emergency department patient visit Felicita Ambrosio Facility:[facility] Start: 01-03-2025 End: 01-03-2025 Emergency department patient visit [facility] Facility:[facility] Start: 11-30-2024 End: 11-30-2024 ambulatory VERA POMPA Facility:[facility] Start: 11-19-2024 ambulatory [facility] Facility :[facility] Start: 10-31-2024 End: 11-01-2024 Refill Vera Pompa MD Work Phone: [facility] Comment on above: Refill Request Start: 10-12-2024 End: 10-12-2024 Office outpatient visit 25 minutes Vera Pompa MD Work Phone: [facility] Comment on above: Elevated alkaline ph osphatase level (Primary Dx); Hypothyroidism, unspecified type; Elevated LFTs; Diplopia Start: 10-12-2024 End: 10-12-2024 ambulatory VERA POMPA Facility:[facility] Start: 10-10-2024 End: 10-10-2024 ambulatory VERA POMPA Facility:[facility] Start: 10-09-2024 End: 10-09-2024 Emergency department patient visit Dr. Vera Pompa MD Work Phone: -Emergency Department Work Phone: Start: 10-08-2024 End: 10-08-2024 ambulatory VERA POMPA Facility:[facility] Start: 10-03-2024 End: 10-11-2024 Telephone encounter Vera Pompa MD Work Phone: [facility] Comment on above: [facility] ER f/u Start: 09-27-2024 End: 09-27-[address] Vera Pompa MD Work Phone: -[facility] Start: 09-27-2024 End: 09-27-[address] Edward Humphreys MD -[facility] Work Phone: Start: 09-27-2024 End: 09-27-2024 ambulatory Vera Pompa Facility:[facility] Start: 09-24-2024 End: 09-24-2024 ambulatory Vera Pompa MD Work Phone: [facility] Comment on above: Allied Health Visit (Medication Adherence Outreach ) Start: 09-23-2024 End: 09-23-2024 Emergency department patient visit Dr. Vera Pompa MD Work Phone: -Emergency Department Work Phone: Start: 09-18-2024 End: 09-18-2024 ambulatory Vera Pompa MD Work Phone: [facility] Comment on above: Allied Health Visit (Medication Adherence Outreach ) Start: 09-17-2024 End: 09-17-2024 ambulatory Flakito Roger RN [employer] Management Comment on above: ACM KRISTIN RN ( Chart review per payor request) [...] depressive disorder, single episode, in partial remission; salvage determiner (current) use of bisphosphonates; Long-term current use of proton pump inhibitor therapy; History of falling Start: 09-03-2024 End: 09-03-2024 ambulatory VERA POMPA Facility:[facility] Start: 08-28-2024 End: 08-28-2024 Refill Vera Pompa MD Work Phone: [facility] Comment on above: Refill Request Start: 08-22-2024 End: 08-28-2024 Refill Vera Pompa MD Work Phone: [facility] Comment on above: Refill Request Start: 08-21-2024 End: 08-21-2024 Emergency department patient visit Dr. Vera Pompa MD Work Phone: -Emergency Department Work Phone: Start: 07-03-2024 End: 07-03-2024 ambulatory Manjinder Leary RN Work Phone: [employer] Start: 07-03-2024 End: 07-03-2024 Coordination of care plan Manjinder Leary RN Work Phone: [employer] Comment on above: Care Coordination (/ ) Start: 06-22-2024 End: 06-22-2024 Telephone encounter Nuzhat Naik DIRECTOR OF STUDENT AFFAIRS.TECHNICAL STENOGRAPHER Work Phone: [facility] Start: 06-21-2024 End: 06-21-2024 Patient encounter procedure Nuzhat Naik DIRECTOR OF STUDENT AFFAIRS.TECHNICAL STENOGRAPHER Work Phone: [facility] Comment on above: Closed wedge kyle lópez fracture of T12 vertebra, sequela (Primary Dx); Gait instability Start: 06-21-2024 End: 06-21-2024 ambulatory NUZHAT NAIK Facility:[facility] Start: 06-21-2024 End: 06-21-2024 Subsequent hospital visit by physician Xr [employer] SYSTEMS AUDITOR Comment on above: Closed wedge kyle lópez fracture of T11 vertebra, initial encounter ([facility]) [S22.080A] Start: 06-01-2024 End: 06-01-2024 ambulatory Luis Eduardo Ace[facility]christiane [facility] Start: 06-01-2024 End: 06-01-2024 Patient encounter procedure Luis Eduardo Banerjee SRIKANTH [facility] Comment on above: Population Health Na vigation Outreach ([facility] Start: 05-31-2024 End: 05-31-2024 Refill [facility] [address] Comment on above: Refill Request Start: 05-25-2024 End: 05-25-2024 Telephone encounter Vera Pompa MD Work Phone: [facility] Comment on above: Follow HH Orders Start: 05-24-2024 End: 05-28-2024 Patient Outreach Vera Pompa MD Work Phone: [facility] Comment on above: Transition Of Care Start: 05-09-2024 End: 05-25-2024 Evaluation and management of inpatient Dr. Odilon Rodríguez MD -Transitional Care Unit Start: 05-05-2024 End: 05-09-2024 Evaluation and management of inpatient VERA POMPA Facility:[facility] Start: 05-05-2024 End: 05-05-2024 Emergency department patient visit Dr. Edmundo Judd MD -Emergency Department Work Phone: Start: 04-27-2024 End: 04-27-2024 ambulatory Luis Eduardo Banerjee MA [facility] Start: 04-27-2024 End: 04-27-2024 Patient encounter procedure Luis Eduardo Banerjee [facility] Comment on above: Population Health Na vigation Outreach ([facility]) Start: 12-05-2023 End: 12-30-2023 Telephone encounter Apryl Gorman APRN.TECHNICAL STENOGRAPHER Work Phone: [facility] Start: 11-08-2023 End: 11-08-2023 Refill Vera Pompa MD Work Phone: [facility] Comment on above: Refill Request Start: 11-07-2023 End: 11-30-2023 Patient Outreach Vera Pompa MD Work Phone: [facility] Comment on above: Transition Of Care Start: 10-30-2023 End: 10-31-2023 Refill Luis Enrique Caicedo APRN.TECHNICAL STENOGRAPHER Work Phone: [facility] Comment on above: Refill Request Start: 10-21-2023 Refill Vera arriola MD Work Phone: [facility] Comment on above: Refill Request Start: 10-18-2023 Refill Vera arriola MD Work Phone: [facility] Comment on above: Refill Request Start: 10-07-2023 Refill Vera arriola MD Work Phone: [facility] Comment on above: Refill Request Start: 10-01-2023 Refill Luis Enrique PALACIO RN.TECHNICAL STENOGRAPHER Work Phone: [facility] Comment on above: Refill Request Start: 09-01-2023 End: 09-01-2023 Patient encounter procedure Apryl Gorman APRN.TECHNICAL STENOGRAPHER Work Phone: [facility] Comment on above: Hypothyroidism, unsp ecified type (Primary Dx); Ankle edema, bilateral; Hyperlipidemia, mixed; Anxiety with depression; Osteoporosis, unspecified osteoporosis type, unspecified pathological fracture presence Start: 08-30-2023 Telephone encounter Jeny Servando lee DIRECTOR OF STUDENT AFFAIRS.TECHNICAL STENOGRAPHER Work Phone: [facility] Comment on above: Results Start: 08-29-2023 End: 08-29-2023 Office outpatient visit 25 minutes Kamlesh Sheppard MD Work Phone: [facility] Comment on above: Bilateral leg edema (Primary Dx); Other specified hypothyroidism Start: 08-16-2023 Refill Luis Enrique PALACIO RN.TECHNICAL STENOGRAPHER Work Phone: [facility] Comment on above: Refill Request Start: 08-16-2023 Refill Vera arriola MD Work Phone: [facility] Comment on above: Refill Request Start: 08-10-2023 Telephone encounter Vera davies MD Work Phone: [facility] Comment on above: refill - short term Start: 06-07-2023 Refill Vera arriola MD Work Phone: [facility] Comment on above: Refill Request Start: 05-30-2023 End: 05-30-2023 Patient encounter procedure Apryl Gorman APRN.TECHNICAL STENOGRAPHER Work Phone: [facility] Comment on above: Hospital discharge f ollow-up (Primary Dx); Vertigo; Bilateral impacted cerumen Start: 05-25-2023 End: 05-25-2023 Emergency department patient visit [facility]-Emergency Department Work Phone: Start: 05-25-2023 End: 05-25-2023 Patient encounter procedure Kmalesh Sheppard MD Work Phone: [facility] Comment on above: Dizziness (Primary D x) Start: 04-07-2023 Refill Vera arriola MD Work Phone: [address] [place] [address] Start: 01-28-2023 Telephone encounter Luis Enrique Syedaniket rivera DIRECTOR OF STUDENT AFFAIRS.TECHNICAL STENOGRAPHER Work Phone: [facility] Comment on above: Results Start: 01-06-2023 Telephone encounter Vera davies MD Work Phone: [facility] Start: 01-05-2023 End: 01-05-2023 Patient encounter procedure Apryl Gorman DIRECTOR OF STUDENT AFFAIRS.TECHNICAL STENOGRAPHER Work Phone: [facility] Comment on above: Closed fracture of l eft hip, sequela (Primary Dx); Acute blood loss anemia; Hyperlipidemia, mixed; Episode of recurrent major depressive disorder, unspecified depression episode severity (HCC); Osteoporosis, unspecified osteoporosis type, unspecified pathological fracture presence; Other specified hypothyroidism; Screening for colon cancer; Encounter for immunization Start: 12-27-2022 Telephone encounter Apryl yates DIRECTOR OF STUDENT AFFAIRS.TECHNICAL STENOGRAPHER Work Phone: [facility] Comment on above: Orders (Medication R efill. ) Start: 12-09-2022 Refill Vera arriola MD Work Phone: [facility] Comment on above: Refill Request Start: 12-01-2022 End: 12-01-[address] Vera Pompa Work Phone: [facility] Work Phone: Start: 12-01-2022 End: 12-01-[address] Vera Pompa Work Phone: [facility]-Physical Therapy Work Phone: Start: 11-17-[address] Vera Pompa Work Phone: [facility] Therapy Work Phone: Start: 11-11-2022 End: 11-11-[address] Vera Pompa Work Phone: [facility] Work Phone: Start: 11-11-2022 End: 11-11-[address] Vera Pompa Work Phone: [facility]-Outpatient Bone Densitometry Work Phone: Start: 11-08-2022 ambulatory Mel Ye MA [employer] Comment on above: Population Health Na vigation Outreach ([employer]/) Start: 09-16-2022 ambulatory Madyson Perry MA [employer] Comment on above: Population Health Na vigation Outreach (HCC) Start: 09-11-2022 Non-patient / Non-visit Dr. Srikanth Pompa Work Phone: [facility] Work Phone: Start: 09-10-2022 End: 10-01-2022 Evaluation and management of inpatient Dr. Vera Pompa Work Phone: [facility]-Transitional Care Unit Start: 09-10-2022 Non-patient / Non-visit Dr. Srikanth Pompa Work Phone: [facility] Work Phone: Start: 09-09-2022 Non-patient / Non-visit Dr. Srikanth Pompa Work Phone: [facility] Work Phone: Start: 09-08-2022 Non-patient / Non-visit Dr. Srikanth Pompa Work Phone: [facility] Work Phone: Start: 09-07-2022 End: 09-10-2022 Evaluation and management of inpatient Dr. Vera Pompa Work Phone: [facility]-Medical Surgical 3 Start: 09-07-2022 Non-patient / Non-visit Dr. Srikanth Pompa Work Phone: [facility] Start: 08-10-2022 ambulatory Madyson Perry MA [employer] Comment on above: Population Health Na vigation Outreach (HCC) Start: 04-05-2022 Virginia PALACIO RN.TECHNICAL STENOGRAPHER Work Phone: [facility] Comment on above: Refill Request Start: 03-24-2022 Telephone encounter Vera davies MD Work Phone: [facility] Comment on above: Forms Start: 01-28-2022 Refill Vera arriola MD Work Phone: [facility] Comment on above: Refill Request Start: 12-24-2021 End: 12-24-2021 Patient encounter procedure Apryl Gorman DIRECTOR OF STUDENT AFFAIRS.TECHNICAL STENOGRAPHER Work Phone: [facility] Comment on above: Hyperlipidemia, mixe d (Primary Dx); Episode of recurrent major depressive disorder, unspecified depression episode severity (HCC); Osteoporosis, unspecified osteoporosis type, unspecified pathological fracture presence; Hypothyroidism, unspecified type; Vitamin D deficiency; Encounter for screening mammogram for malignant neoplasm of breast; Urge incontinence; Encounter for immunization Start: 12-05-2021 Refill Vera arriola MD Work Phone: [facility] Comment on above: Refill Request Start: 10-27-2021 Refill Vera arriola MD Work Phone: [facility] Comment on above: Refill Request Start: 10-23-2021 Refill Vera arriola MD Work Phone: [facility] Comment on above: Refill Request Start: 09-11-2021 Refill Vera arriola MD Work Phone: [facility] Comment on above: Refill Request Start: 08-24-2021 End: 08-24-2021 Patient encounter procedure Shanta Washington DIRECTOR OF STUDENT AFFAIRS.TECHNICAL STENOGRAPHER Work Phone: Gastroenterology Comment on above: Heart burn Start: 08-14-2021 Refill Luis Enrique PALACIO RN.[facility] Work Phone: [facility] Comment on above: Refill Request Start: 07-13-2021 Telephone encounter Luis Enrique rivera DIRECTOR OF STUDENT AFFAIRS.TECHNICAL STENOGRAPHER Work Phone: [facility] Comment on above: Results Start: 06-24-2021 Documentation procedure Mammog teddy Coordinator [facility] Start: 06-24-2021 Letter encounter Mammography Coordinator [facility] Start: 06-24-2021 Telephone encounter Vera davies MD Work Phone: [facility] [place] Comment on above: Results Start: 06-24-2021 End: 06-24-2021 Subsequent hospital visit by physician Screen Mammo [facility] Comment on above: Encounter for screen ing mammogram for malignant neoplasm of breast [Z12.31] Start: 06-22-2021 End: 06-22-2021 Patient encounter procedure Vera Pompa MD Work Phone: [facility] [place] Comment on above: Episode of recurrent major depressive disorder, unspecified depression episode severity (HCC) (Primary Dx); Hyperlipidemia, mixed; Other specified hypothyroidism; Other osteoporosis without current pathological fracture; Vitamin D deficiency; Heart burn; Anemia, unspecified type; Encounter for screening mammogram for malignant neoplasm of breast Start: 04-10-2009 Patient encounter status Vera Pompa MD Work Phone: [facility] Work Phone: Procedures Date Procedure Procedure Detail Performing Clinician Start: 10-09-2024 Urnls dip stick/tabl et reagent auto microscopy Dr. Vera Pompa MD Work Phone: Start: 10-09-2024 CT angiography of he ad and neck Dr. Vera Pompa MD Work Phone: Start: 10-09-[address] Vera Pompa MD Work Phone: Start: 09-27-2024 MRI of brain with contrast Dr. Vera Pompa MD Work Phone: Start: 09-23-2024 SARS-CoV-2, Influenz a & RSV (PCR) Dr. Vera Pompa MD Work Phone: Start: 09-23-2024 Urnls dip stick/tabl et reagent auto microscopy Dr. Vera Pompa MD Work Phone: Start: 09-23-2024 Plain chest X-ray Dr. Duke Pompa MD Work Phone: Start: 09-13-2024 Plain x-ray of pelvi s [...] Comment: Speci men Type: BLOOD SPECIMENOrdering Facility: [facility] Address: [address] [place] [address] Performed By: #### T SCR ####[facility] BLOOD BANKCLIA [id number] [address] [place] Start: 05-05-2024 Estimated creatinine clearance [...] HIGH DOSE, QUADRIVALENT (FLUZONE HIGH-DOSE) Apryl Gorman DIRECTOR OF STUDENT AFFAIRS.TECHNICAL STENOGRAPHER Work Phone: Start: 11-11-2022 Dual energy X-ray [...] QUADRIVALENT HIGH DOSE AGE 65+ Apryl Gorman DIRECTOR OF STUDENT AFFAIRS.TECHNICAL STENOGRAPHER Work Phone: Start: 07-03-2021 Lipid 1996 panel - S vineet or Plasma Vera Pompa MD Work Phone: Start: 06-24-2021 End: 06-24-2021 Mammography Vera Pompa MD Work Phone: Start: 01-01-2019 Mammography Vera mendes MD Work Phone: Plan of Treatment Date Care Activity Detail Author Start: 04-29-2028 Urine microalbumin profile DTa P,Tdap,Td Vaccine (4 - Td or Tdap) [facility] Start: 04-04-2028 Urine microalbumin profile [facility] Start: 10-11-2027 [facility] Start: 05-09-2027 [facility] Start: 08-28-2026 [facility] Start: 07-03-2026 Lipid 1996 panel - S vineet or Plasma Lipid Screening [facility] Start: 07-03-2026 Lipid panel Lipid Screening [facility] Start: 07-03-2026 LIPID SCREEN LIPID SCREEN [facility] Start: 01-19-2026 Cologuard (FIT-DNA) Cologuard (FIT-D NA) [facility] Start: 01-19-2026 Colorectal Cancer Screening Colorectal Cancer Screening [facility] Start: 01-19-2026 Screening for malign ant neoplasm of colon [facility] Start: 01-05-2026 Diabetes [facility] Start: 12-17-2025 LIPID SCREEN LIPID SCREEN [facility] Start: 10-12-2025 Annual PCP Team Patient Case Coordinator alexy Disease Visit Annual PCP Team Chronic Disease Visit [facility] Start: 09-03-2025 Annual PCP Team Patient Case Coordinator alexy Disease Visit Annual PCP Team Chronic Disease Visit [facility] Start: 09-03-2025 Anxiety Screening Anxiety Screening [facility] Start: 09-03-2025 Covid-19 Vaccine ( season) Covid-19 Vaccine () [facility] Comment on above: Postponed from 11/12 (Declined at this time) Start: 12-13-2024 End: 12-13-2024 Patient encounter procedure 12/13/2024 2:20 PM EDT Office Visit [facility] [place] [address] [place] [address] Vera Pompa MD [address] [place] [address] 2 month follow up [facility] Comment on above: 2 month follow up Start: 12-12-2024 End: 03-13-2025 Comprehensive metabolic 2000 panel - Serum or Plasma COMPREHENSIVE METABOLIC PANEL Lab Routine Elevated alkaline phosphatase level Elevated LFTs Expected: 12/12/2024 (Approximate), Expires: 03/13/2025 [facility] Comment on above: Expected: 12/12/2024 (Approximate), Expires: 03/13/2025 Start: 12-12-2024 End: 03-13-2025 Thyrotropin [Units/volume] in Serum or Plasma THYROID STIMULATING HORMONE Lab Routine Hypothyroidism, unspecified type Expected: 12/12/2024 (Approximate), Expires: 03/13/2025 [facility] Comment on above: Expected: 12/12/2024 (Approximate), Expires: 03/13/2025 Start: 11-12-2024 Influenza vaccination Influenza Vacc ine (#1) [facility] Start: 10-25-2024 End: 10-25-2024 Patient encounter procedure 10/25/2024 10:45 AM EDT Appointment Radiology [address] [place] [address] Dx: Elevated alkaline phosphatase level [R74.8]; Elevated LFTs [R79.89] Radiology Comment on above: Dx: Elevated alkalin e phosphatase level [R74.8]; Elevated LFTs [R79.89] Start: 10-12-2024 End: 10-12-2024 Patient encounter procedure 10/12/2024 2:20 PM EDT Office Visit [facility] [address] [place] [address] Vera Pompa MD [address] [place], [place] [id number] [facility] ER f/u 09/23/24 dehydration/weak. [facility] Comment on above: [facility] ER f/u 09/23/24 d ehydration/weak. Start: 10-09-2024 [facility] Start: 09-23-2024 [facility] Start: 09-23-2024 [facility] Start: 09-13-2024 [facility] Start: 09-03-2024 End: 12-03-2024 CBC panel - Blood by Automated count COMPLETE BLOOD COUNT Lab Routine Anemia, unspecified type Expected: 09/03/2024 (Approximate), Expires: 12/03/2024 [facility] Comment on above: Expected: 09/03/2024 (Approximate), Expires: 12/03/2024 Start: 09-03-2024 End: 12-03-2024 Comprehensive metabolic 2000 panel - Serum or Plasma COMPREHENSIVE METABOLIC PANEL Lab Routine Hyperlipidemia, mixed Expected: 09/03/2024 (Approximate), Expires: 12/03/2024 [facility] Work Phone: Comment on above: Expected: 09/03/2024 (Approximate), Expires: 12/03/2024 Start: 09-03-2024 End: 12-03-2024 Lipid 1996 panel - Serum or Plasma LIPID PANEL, FASTING Lab Routine Hyperlipidemia, mixed Expected: 09/03/2024 (Approximate), Expires: 12/03/2024 [facility] Comment on above: Expected: 09/03/2024 (Approximate), Expires: 12/03/2024 Start: 09-03-2024 End: 12-03-2024 Thyrotropin [Units/volume] in Serum or Plasma THYROID STIMULATING HORMONE Lab Routine Other specified hypothyroidism Expected: 09/03/2024 (Approximate), Expires: 12/03/2024 [facility] Comment on above: Expected: 09/03/2024 (Approximate), Expires: 12/03/2024 Start: 09-03-2024 End: 09-03-2024 Patient encounter procedure 09/03/2024 12:00 PM EDT Office Visit [facility] [place] [address] [place] [id number] Vera Pompa MD [address] [place] [id number] medicare wellness/BP check [facility] Comment on above: medicare wellness/BP check Start: 08-31-2024 Annual PCP Team Patient Case Coordinator alexy Disease Visit Annual PCP Team Chronic Disease Visit [facility] Start: 08-21-2024 [facility] Start: 08-21-2024 Control nasal hemorr jad anterior simple CONTROL OF NOSEBLEED [facility] Start: 07-03-2024 DIABETES SCREEN DIABETES SCREEN [facility] Start: 07-03-2024 Diabetes Screening Diabetes Screen[facility] Start: 06-18-2024 End: 06-18-2024 Patient encounter procedure [facility] [employer] AUDIT[employer] Comment on above: XR THORACO LUMBAR JU NCT 2V AP/LAT 6 week hosp f/u XR THORACOLUMBAR AP/ LAT Start: 05-31-2024 End: 05-31-2024 Patient encounter procedure 05/31/2024 2:20 PM EDT Office Visit Family [facility] [address] [place] [id number] Vera Pompa MD [address] [place] [id number] Hospital follow up [facility] Comment on above: Hospital follow up Start: 05-29-2024 Annual PCP Team Patient Case Coordinator alexy Disease Visit Annual PCP Team Chronic Disease Visit [facility] Start: 05-25-2024 Patient discharge [facility] Start: 05-24-2024 Developing a treatme nt plan [facility] Start: 05-24-2024 Development of care plan [facility] Start: 05-24-2024 [facility] Start: 05-22-2024 Referral to service [facility] Start: 05-17-2024 End: 05-17-2024 Patient encounter procedure 05/17/2024 2:00 PM EST Office Visit Family [facility] [address] [place] [address] Vera Pompa MD [address] [place], [place] [id number] follow up, influenza, hcc gap closure, review due [facility] Comment on above: follow up, influenza , hcc gap closure, review due Start: 05-11-2024 Speech therapy management [facility] Start: 05-10-2024 Speech therapy assessment [facility] Start: 05-10-2024 Development of care plan [facility] Start: 05-10-2024 Developing a treatme nt plan [facility] Start: 05-10-2024 Following clinical p athway protocol [facility] Start: 05-10-2024 End: 05-10-2024 [facility] Start: 05-10-2024 Application of device [facility] Start: 05-09-2024 Speech therapy assessment [facility] Start: 05-09-2024 Following clinical p athway protocol [facility] Start: 05-09-2024 Admission procedure [facility] Start: 05-09-2024 Introduction of urin rosanne catheter [facility] Start: 05-09-2024 Measuring intake and output [facility] Start: 05-09-2024 Patient referral to dietitian [facility] Start: 05-09-2024 Referral to occupati onal therapist [facility] Start: 05-09-2024 Referral to service [facility] Start: 05-09-2024 Vital signs measurements [facility] Start: 05-09-2024 [facility] Start: 05-05-2024 [facility] Start: 03-14-2024 Advance Directive Discussion Advance Directive Discussion [facility] Start: 03-14-2024 Medicare Advantage A nnual Wellness Visit Medicare Advantage Annual Wellness Visit [facility] Start: 01-18-2024 End: 01-18-2024 Patient encounter procedure 01/18/2024 3:00 PM EST Office Visit Family [facility] [address] [place] [address] Apryl Gorman, DIRECTOR OF STUDENT AFFAIRS.TECHNICAL STENOGRAPHER [address] [place] [address] 4 month follow up [facility] Comment on above: 4 month follow up Start: 01-06-2024 Annual PCP Team Patient Case Coordinator alexy Disease Visit Annual PCP Team Chronic Disease Visit [facility] Start: 12-30-2023 End: 12-30-2023 Patient encounter procedure 12/30/2023 10:00 AM EDT Office Visit Family [facility] [address] [place] [address] Aprly Gorman DIRECTOR OF STUDENT AFFAIRS.TECHNICAL STENOGRAPHER [address] [place] [address] 4 month follow up and labs [facility] Comment on above: 4 month follow up an d labs Start: 12-18-2023 DIABETES SCREEN DIABETES SCREEN [facility] Start: 11-15-2023 End: 11-15-2023 Patient encounter procedure 11/15/2023 11:20 AM EDT Office Visit [facility] [place] [address] [place] [address] Apryl Gorman, DIRECTOR OF STUDENT AFFAIRS.TECHNICAL STENOGRAPHER [address] [place] [address] TCM 14 day [facility] Hospital f/u [facility] Comment on above: TCM 14 day [facility] Hospi taylor f/u Start: 11-13-2023 Covid-19 Vaccine ( season) Covid-19 Vaccine ( season) [facility] Start: 11-13-2023 Covid-19 Vaccine ( season) Covid-19 Vaccine ( season) [facility] Start: 11-13-2023 Influenza vaccination Influenza Vacc ine (#1) [facility] Start: 10-05-2023 ANNUAL PCP 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 ALEXY DISEASE VISIT ANNUAL PCP TEAM CHRONIC DISEASE VISIT [facility] Start: 10-01-2023 End: 12-31-2023 Thyrotropin [Units/volume] in Serum or Plasma THYROID STIMULATING HORMONE Lab Routine Hypothyroidism, unspecified type Expected: 10/01/2023, Expires: 12/31/2023 [facility] Work Phone: Comment on above: Expected: 10/01/2023 , Expires: 12/31/2023 Start: 10-01-2023 End: 12-31-2023 Thyroxine (T4) free [Mass/volume] in Serum or Plasma T4 FREE/FREE THYROXINE Lab Routine Hypothyroidism, unspecified type Expected: 10/01/2023, Expires: 12/31/2023 [facility] Comment on above: Expected: 10/01/2023 , Expires: 12/31/2023 Start: 09-01-2023 End: 12-01-2023 Lipid 1996 panel - Serum or Plasma LIPID PANEL BASIC Lab Routine Hyperlipidemia, mixed Expected: 09/01/2023, Expires: 12/01/2023 [facility] Comment on above: Expected: 09/01/2023 , Expires: 12/01/2023 Start: 09-01-2023 End: 09-01-2023 Patient encounter procedure 09/01/2023 11:00 AM EDT Office Visit [facility] [place] [address] [place] [address] Apryl Gorman APRN.TECHNICAL STENOGRAPHER [address] [place] [address] f/u leg swelling and lab results 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 ALEXY DISEASE VISIT ANNUAL PCP TEAM CHRONIC DISEASE VISIT [facility] Start: 11-12-2022 Covid-19 Vaccine ( season) Covid-19 Vaccine ( season) [facility] Start: 11-12-2022 Influenza vaccination [facility] Start: 10-21-2022 RSV Vaccine (1 - 1-d ose 75+ series) RSV Vaccine (1 - 1-dose 75+ series) [facility] Start: 10-03-2022 Development of care plan [facility] Start: 10-01-2022 Patient discharge [facility] Start: 09-24-2022 [facility] Start: 09-11-2022 Development of care plan [facility] Start: 09-11-2022 Developing a treatme nt plan [facility] Start: 09-11-2022 Removal of urinary catheter [facility] Start: 09-10-2022 Admission procedure [facility] Start: 09-10-2022 Measuring intake and output [facility] Start: 09-10-2022 Patient referral to dietitian [facility] Start: 09-10-2022 Referral to occupati onal therapist [facility] Start: 09-10-2022 Referral to service [facility] Start: 09-10-2022 Vital signs measurements [facility] Start: 09-10-2022 End: 09-10-2022 [facility] Start: 09-10-2022 Following clinical p athway protocol [facility] Start: 09-10-2022 Patient discharge [facility] Start: 09-10-2022 End: 09-10-2022 Administration of blood product [facility] Start: 09-08-2022 Ambulation therapy management [facility] Start: 09-08-2022 Application of device [facility] Start: 09-08-2022 Exercises [facility] Start: 09-08-2022 Following clinical p athway protocol [facility] Start: 09-08-2022 Introduction of urin rosanne catheter [facility] Start: 09-08-2022 Neurovascular assessment [facility] Start: 09-08-2022 Patient education [facility] Start: 09-08-2022 Provision of activit y privileges [facility] Start: 09-08-2022 Recommendation to co ntinue with treatment [facility] Start: 09-08-2022 Referral to occupati onal therapist [facility] Start: 09-08-2022 Referral to service [facility] Start: 09-08-2022 Vital signs measurements [facility] Start: 09-08-2022 Wound care [facility] Start: 09-08-2022 End: 09-08-2022 [facility] Start: 09-08-2022 [facility] Start: 09-08-2022 End: 09-08-2022 Measuring intake and output [facility] Start: 09-07-2022 Following clinical p athway protocol [facility] Start: 09-07-2022 End: 09-07-2022 [facility] Start: 09-07-2022 Application of ice c ollar, cap or bag [facility] Start: 09-07-2022 Aspiration precautions [facility] Start: 09-07-2022 Assessment of risk o f venous thromboembolism [facility] Start: 09-07-2022 Bedrest [facility] Start: 09-07-2022 Consultation [facility] Start: 09-07-2022 Fall prevention [facility] Start: 09-07-2022 Inhalation therapy procedure [facility] Start: 09-07-2022 Insertion of cathete r into peripheral vein [facility] Start: 09-07-2022 Introduction of urin rosanne catheter [facility] Start: 09-07-2022 Neurovascular assessment [facility] Start: 09-07-2022 Oxygen therapy [facility] Start: 09-07-2022 Providing care accor ding to standard [facility] Start: 09-07-2022 Referral to occupati onal therapist [facility] Start: 09-07-2022 Referral to service [facility] Start: 09-07-2022 Skin care [facility] Start: 09-07-2022 Measuring intake and output [facility] Start: 09-07-2022 Admission procedure [facility] Start: 09-07-2022 Verification routine [facility] Start: 09-07-2022 [facility] Start: 06-24-2022 End: 08-24-2022 25-hydroxyvitamin D3 [Mass/volume] in Serum or Plasma VITAMIN D 25 HYDROXY Lab Routine Vitamin D deficiency Expected: 06/24/2022, Expires: 08/24/2022 [facility] Work Phone: Comment on above: Expected: 06/24/2022 , Expires: 08/24/2022 Start: 06-24-2022 End: 08-24-2022 CBC W Auto Differential panel - Blood CBC + DIFF Lab Routine Osteoporosis, unspecified osteoporosis type, unspecified pathological fracture presence Expected: 06/24/2022, Expires: 08/24/2022 [facility] Work Phone: Comment on above: Expected: 06/24/2022 , Expires: 08/24/2022 Start: 06-24-2022 End: 08-24-2022 Comprehensive metabolic 2000 panel - Serum or Plasma COMP METABOLIC PANEL Lab Routine Hyperlipidemia, mixed Expected: 06/24/2022, Expires: 08/24/2022 [facility] Work Phone: Comment on above: Expected: 06/24/2022 , Expires: 08/24/2022 Start: 06-24-2022 End: 08-24-2022 Lipid 1996 panel - Serum or Plasma LIPID PANEL BASIC Lab Routine Hyperlipidemia, mixed Expected: 06/24/2022, Expires: 08/24/2022 [facility] Work Phone: Comment on above: Expected: 06/24/2022 , Expires: 08/24/2022 Start: 06-24-2022 Mammography MAMMOGRAM [facility] Start: 06-24-2022 End: 01-23-2023 Screening mammography bi 2-view breast inc cad [facility] SCREENING Radiology Routine Encounter for screening mammogram for malignant neoplasm of breast Expected: 06/24/2022, Expires: 01/23/2023 [facility] Work Phone: Comment on above: Expected: 06/24/2022 , Expires: 01/23/2023 Start: 06-24-2022 End: 08-24-2022 Thyrotropin [Units/volume] in Serum or Plasma TSH BLD Lab Routine Hypothyroidism, unspecified type Expected: 06/24/2022, Expires: 08/24/2022 [facility] Work Phone: Comment on above: Expected: 06/24/2022 , Expires: 08/24/2022 Start: 06-22-2022 ANNUAL 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 ALEXY DISEASE VISIT ANNUAL PCP TEAM CHRONIC DISEASE VISIT [facility] Start: 03-14-2022 ADVANCE DIRECTIVE DISCUSSION ADVANCE DIRECTIVE DISCUSSION [facility] Start: 12-23-2021 COLORECTAL CANCER SCREENING COLORECTAL CANCER SCREENING [facility] Start: 12-23-2021 FECAL OCCULT BLOOD FECAL OCCULT BLOO D [facility] Start: 12-23-2021 Screening for malign ant neoplasm of colon Fecal Occult Blood [facility] Start: 11-12-2021 Influenza vaccination INFLUENZA (#1) [facility] Start: 06-23-2021 End: 08-23-2021 CBC W Auto Differential panel - Blood CBC + DIFF Lab Routine Anemia, unspecified type Expected: 06/23/2021 (Approximate), Expires: 08/23/2021 [facility] Work Phone: Comment on above: Expected: 06/23/2021 (Approximate), Expires: 08/23/2021 Start: 06-23-2021 End: 08-23-2021 Comprehensive metabolic 2000 panel - Serum or Plasma COMP METABOLIC PANEL Lab Routine Hyperlipidemia, mixed Expected: 06/23/2021 (Approximate), Expires: 08/23/2021 [facility] Work Phone: Comment on above: Expected: 06/23/2021 (Approximate), Expires: 08/23/2021 Start: 06-23-2021 End: 08-23-2021 LIPID PANEL BASIC LIPID PANEL BASIC Lab Routine Hyperlipidemia, mixed Expected: 06/23/2021 (Approximate), Expires: 08/23/2021 [facility] Work Phone: Comment on above: Expected: 06/23/2021 (Approximate), Expires: 08/23/2021 Start: 06-23-2021 End: 08-23-2021 Thyrotropin [Units/volume] in Serum or Plasma TSH BLD Lab Routine Other specified hypothyroidism Expected: 06/23/2021 (Approximate), Expires: 08/23/2021 [facility] Work Phone: Comment on above: Expected: 06/23/2021 (Approximate), Expires: 08/23/2021 Start: 06-23-2021 End: 08-23-2021 VITAMIN D 25 HYDROXY VITAMIN D 25 HYDROXY Lab Routine Vitamin D deficiency Expected: 06/23/2021 (Approximate), Expires: 08/23/2021 [facility] Work Phone: Comment on above: Expected: 06/23/2021 (Approximate), Expires: 08/23/2021 Start: 03-14-2021 ADVANCE DIRECTIVE DISCUSSION ADVANCE DIRECTIVE DISCUSSION [facility] Start: 11-12-2020 COVID-19 VACCINE (3 - Booster for Pfizer series) COVID-19 VACCINE (3 - Booster for Pfizer series) [facility] Start: 08-07-2020 COVID-19 VACCINE (3 - Booster for Pfizer series) COVID-19 VACCINE (3 - Booster for Pfizer series) [facility] Start: 08-07-2020 COVID-19 VACCINE (3 - Pfizer series) COVID-19 VACCINE (3 - Pfizer series) [facility] Start: 01-02-2020 Mammography MAMMOGRAM [facility] Start: 05-22-2015 Screening for osteoporosis Bone Dens ity Screening [facility] Start: 2007 RSV Vaccine (1 - 1-d ose 60+ series) RSV Vaccine (1 - 1-dose 60+ series) [facility] Start: 10-21-1997 SHINGRIX VACCINE (1 of 2) OWENS GRIX VACCINE (1 of 2) [facility] Start: 10-21-1992 COLOGUARD (FIT-DNA) COLOGUARD (FIT-D NA) [facility] Start: 10-21-1992 Colonoscopy COLONOSCOPY [facility] Start: 10-21-[address] COLONOGRAPHY [facility] Start: 10-21-1992 Screening for malign ant neoplasm of colon [facility] Start: 10-21-1992 SIGMOIDOSCOPY SIGMOIDOSCOPY [facility] Start: 10-21-1965 Anxiety Screening Anxiety Screening [facility] Alanine aminotransfe rase [Enzymatic activity/volume] in Serum or Plasma [facility] Albumin [Mass/volume ] in Serum or Plasma [facility] Alkaline phosphatase [Enzymatic activity/volume] in Serum or Plasma [facility] Anion gap measurement [facility] Aspartate aminotrans ferase [Enzymatic activity/volume] in Serum or Plasma [facility] Bilirubin, total measurement [facility] BUN/Creatinine ratio [facility] Calcium [Mass/volume ] in Serum or Plasma [facility] Carbon dioxide, tota l [Moles/volume] in Serum or Plasma [facility] Chloride [Moles/volu me] in Serum or Plasma [facility] COLOGUARD COLOGUARD Lab [facility]line [facility]unn Screening for colon cancer Ordered: 01/05/2023 [facility] Work Phone: Comment on above: Ordered: 01/05/2023 Creatinine [Moles/vo lume] in Serum or Plasma [facility] Glucose [Mass/volume ] in Serum or Plasma [facility] Hematocrit [Volume Fraction] of Blood [facility] Hemoglobin [Mass/vol ume] in Blood [facility] Leukocytes [#/volume ] in Blood [facility] End: 12-31-2023 [facility] SCREENING [facility] SCREENING Radiology Routine Encounter for screening mammogram for breast cancer 1 Occurrences starting 12/01/2022 until 12/31/2023 [facility] Work Phone: Comment on above: 1 Occurrences starti ng 12/01/2022 until 12/31/2023 Mean corpuscular hemoglobin concentration determination [facility] Mean corpuscular hemoglobin determination [facility] Measurement of renal function [facility] Neutrophil count [facility] Neutrophil percent differential count [facility] Patient Education [facility] Work Phone: Patient referral [facility] Work Phone: Platelets [#/volume] in Blood [facility] Potassium [Moles/vol ume] in Serum or Plasma [facility] Red blood cell count [facility] Red cell distributio n width determination [facility] End: 07-22-2022 Screening mammography bi 2-view breast inc cad [facility] SCREENING Radiology Routine Encounter for screening mammogram for malignant neoplasm of breast 1 Occurrences starting 06/22/2021 until 07/22/2022 [facility] Work Phone: Comment on above: 1 Occurrences starti ng 06/22/2021 until 07/22/2022 Sodium [Moles/volume ] in Serum or Plasma [facility] Total protein measurement [facility] Urea nitrogen [Mass/volume] in Serum or Plasma [facility] End: 11-11-2025 US Abdomen RUQ US ABD RIGHT UPPER QUADRANT Radiology Routine Elevated alkaline phosphatase level Elevated LFTs 1 Occurrences starting 10/12/2024 until 11/11/2025 [facility] Work Phone: Comment on above: 1 Occurrences starti ng 10/12/2024 until 11/11/2025 XR Spine thoracolumb ar junction 2 Views XR THORACO LUMBAR JUNCT 2V AP/LAT Radiology Routine Closed wedge compression fracture of T11 vertebra, initial encounter ([facility]) 06/21/2024 2:38 PM EDT [facility] Work Phone: [facility] Immunizations Immunization Date Immunization Notes Care Provider Deepika rodriguez 05-10-2024 influenza, high dose seasonal, preservative-free Dr. Vera Pompa MD Work Phone: [facility] 05-10-2024 influenza virus vacc ine, unspecified formulation Flakito Roger RN [facility] 01-05-2023 influenza (HD-IIV4) vaccine, age 65+ yr, high dose, quadrivalent, PF (FLUZONE HIGH-DOSE) Apryl Gorman DIRECTOR OF STUDENT AFFAIRS.TECHNICAL STENOGRAPHER Work Phone: [facility] 01-05-2023 influenza virus vacc ine, unspecified formulation Luis Enrique Caicedo DIRECTOR OF STUDENT AFFAIRS.TECHNICAL STENOGRAPHER Work Phone: [facility] 12-24-2021 Influenza, high dose seasonal Dr. Vera Pompa MD Work Phone: [facility] 12-24-2021 influenza, high dose seasonal, preservative-free Dr. Vera Pompa Work Phone: [facility] 12-24-2021 influenza, high-dose , quadrivalent vaccine (FLUZONE HIGH DOSE QUADRIVALENT) Apryl Gorman APRN.TECHNICAL STENOGRAPHER Work Phone: [facility] 12-24-2021 influenza virus vacc ine, unspecified formulation Vera Pompa MD Work Phone: [facility] 12-17-2020 influenza, high-dose , quadrivalent vaccine (FLUZONE HIGH DOSE QUADRIVALENT) Vera Pompa MD Work Phone: [facility] 06-12-2020 Covid (Pfizer) Dr. Vera stanley Work Phone: [facility] 05-22-2020 Covid (Pfizer) Dr. Vera stanley Work Phone: [facility] 03-12-2020 influenza, high-dose , quadrivalent vaccine (FLUZONE HIGH DOSE QUADRIVALENT) Vera Pompa MD Work Phone: [facility] 11-24-2018 influenza, high dose seasonal, preservative-free Vera Pompa MD Work Phone: [facility] 04-29-2018 tetanus toxoid, redu jarvis diphtheria toxoid, and acellular pertussis vaccine, adsorbed Dr. Vera Pompa Work Phone: [facility] 11-24-2017 influenza, high dose seasonal, preservative-free Vera Pompa MD Work Phone: [facility] 11-26-2016 influenza, high dose seasonal, preservative-free Vera Pompa MD Work Phone: [facility] 03-18-2016 influenza, injectabl e, quadrivalent, preservative free Dr. Vera Pompa Work Phone: [facility] 03-18-2016 influenza, seasonal, injectable Dr. Vera Pompa Work Phone: [facility] 01-30-2015 influenza, high dose seasonal, preservative-free Vera Pompa MD Work Phone: [facility] 01-30-2015 pneumococcal conjuga te vaccine, 13 valent Vera Pompa MD Work Phone: [facility] 12-12-[address] Vera Pompa Work Phone: [facility] 01-25-2013 influenza virus vacc ine, unspecified formulation Vera Pompa MD Work Phone: [facility] 10-28-2012 pneumococcal polysaccharide vaccine, 23 valent Vera Pompa MD Work Phone: [facility] 02-19-2011 influenza virus vacc ine, unspecified formulation Vera Pompa MD Work Phone: [facility] Work Phone: 03-19-2010 influenza virus vacc ine, unspecified formulation Vera Pompa MD Work Phone: [facility] Work Phone: 11-06-2004 diphtheria and tetan us toxoids, adsorbed for pediatric use Vera Pompa MD Work Phone: [facility] Work Phone: Payers Date Payer Category Payer Self-pay [id number] 2020 Medicare HUMANA MEDICARE HUMANA MEDICARE PPO [id number] 2020-Present [phone] [address] [place] [address] PPO [id number] 2020 Medicare HUMANA MEDICARE HUMANA MEDICARE PPO [id number] 2020-Present [phone] [place] [address] PPO [id number] 2020 Medicare (Managed Care) GAYE [facility] [id number] 2013 Medicare [id number] Medicare MEDICARE PART A B [id number] [facility] [id number] Unknown [id number] Unknown [id number] Unknown [id number] Unknown [id number] Unknown [id number] Unknown [id number] Unknown [id number] Unknown [id number] Unknown [id number] Unknown [id number] Unknown [id number] Unknown [id number] Social History Date Type Detail Facility Start: 12-24-2021 End: 10-09-2024 Tobacco smoking status NHIS Never smoked tobacco [facility] Start: 06-22-2021 End: 10-12-2024 Alcohol intake Current non-drinker of alcohol (finding) [facility] Start: 1945 Sex Assigned At Not on file C [facility] Start: 06-12-2021 End: 12-24-2021 Exposure to SARS-CoV-2 (event) Not sure [facility] Start: 12-24-2021 Tobacco use and exposure Smokeless tobacco non-user [facility] Start: 09-07-2022 End: 05-25-2023 Tobacco smoking status MIIS Unknown if ever smoked [facility] Start: 03-19-2016 None [facility] Start: 09-07-2022 Homeless [facility] Start: 04-08-2016 Non-smoker [facility] Start: 1945 Sex Assigned At Female [facility] Start: 10-04-2022 End: 05-07-2024 History of Social function [facility] Start: 10-04-2022 End: 05-07-2024 Tobacco use panel [facility] Start: 02-13-2012 Adult Depression Screening Assessment 0 [facility] Has the [employer], or water leaselock threatened to shut off services in your home in past 12Mo No [facility] (I/We) worried jocelyne er (my/our) food would run out before (I/we) got money to buy more. Never true [facility] Start: 05-25-2024 Sex Female (finding) [facility] How often to you hav e a drink containing alcohol? Never [facility] NEGATED: Highlighted row [facility] Medical Equipment Procedure Code Equipment Code Equipment Origin al Text Equipment Identifier Dates ORIF, hip, using Gamma nail LONG NAIL KIT FDA Start: 09-08-2022 ORIF, hip, using Gamma nail ([id number]) Orthopaedic bone screw, non-bioabsorbable, sterile [id number] FDA Start: 09-08-2022 ORIF, hip, using Gamma nail ([id number]) Orthopaedic bone screw, non-bioabsorbable, sterile [id number] FDA Start: 09-08-2022 ORIF, hip, using Gamma nail ([id number]) Orthopaedic bone screw, non-bioabsorbable, sterile ()[id number] FDA Start: 09-08-2022 ORIF, hip, using [...] Facility 09-03-2024 Total score [AUDIT-C] 0 09/04/19 12:02 PM Nettie Chi MA [facility] 05-25-2024 Functional status Chair;Bathroom Privileg e [facility] Work Phone: 05-23-2024 Functional status Tolerates Activity Well [facility] Work Phone: 05-09-2024 Are you deaf, or do you have serious difficulty hearing No 05/09/2024 5:10 PM Muna Cordero RN No [facility] 05-09-2024 Are you blind, or do you have serious difficulty seeing, even when wearing glasses No 05/09/2024 5:10 PM Muna Cordero RN No [facility] 05-09-2024 Do you have serious difficulty walking or climbing stairs Yes 05/09/2024 5:10 PM Muna Cordero RN Yes [facility] 05-09-2024 Do you have difficul ty dressing or bathing Yes 05/09/2024 5:10 PM Muna Cordero RN Yes [facility] 05-09-2024 Because of a physica l, mental, or emotional condition, do you have difficulty doing errands alone such as visiting a physician's office or shopping Yes 05/09/2024 5:10 PM Muna Cordero RN Yes [facility] 10-01-2022 Functional status Chair [facility] Work Phone: 09-10-2022 Functional status Bedrest [facility] Work Phone: 07-16-2014 Are you deaf, or do you have serious difficulty hearing No 07/16/2014 10:11 AM Nettie Chi MA No [facility] 07-16-2014 Are you blind, or do you have serious difficulty seeing, even when wearing glasses No 07/16/2014 10:11 AM Nettie Chi MA No [facility] 07-16-2014 Do you have serious difficulty walking or climbing stairs Yes 07/16/2014 10:11 AM Nettie Chi MA Yes [facility] 07-16-2014 Do you have difficul ty dressing or bathing No 07/16/2014 10:11 AM Nettie Chi MA No [facility] 07-16-2014 Because of a physica l, mental, or emotional condition, do you have difficulty doing errands alone such as visiting a physician's office or shopping No 07/16/2014 10:11 AM Nettie Chi MA No [facility] Mental Status Date Assessment Result Facility 10-09-2024 Cognitive function Voice/Name [facility] Work Phone: 09-23-2024 Cognitive function Level Of Cons ciousness Awake;Alert;Appropriate;Fol lows Commands [facility] Work Phone: 05-25-2024 Cognitive function Voice/Name [facility] Work Phone: 05-17-2024 Cognitive function Appropriate;[facility] Work Phone: 05-09-2024 Because of a physica l, mental, or emotional condition, do you have serious difficulty concentrating, remembering, or making decisions No 05/09/2024 5:10 PM Muna Cordero RN No [facility] 10-01-2022 Cognitive function Voice/Name [facility] Work Phone: 09-30-2022 Cognitive function Appropriate;[facility] Work Phone: 09-10-2022 Cognitive function Voice/Name [facility] Work Phone: 07-16-2014 Because of a physica l, mental, or emotional condition, do you have serious difficulty concentrating, remembering, or making decisions No 07/16/2014 10:11 AM EDT Nettie Brandt MA No [facility] Clinical Notes 06-22-2021 to 01-24-2025 Telephone Encounter - Luis Enrique Caicedo APRN.CNP - 11/01/2024 8:13 AM EDTTelephone Encounter - Luis Enrique Caicedo APRN.CNP - 11/01/2024 8:13 AM EDTTelephone Encounter - Kari Tony - 10/31/2024 4:41 PM EDT Note Date & Type Note Facility 01-24-2025 Note [facility] Medical Records Department [address] [place] [address] History Physical Exam 01/24/25 1124 MR#: [id number] Acct: [id number] Name: DIMASBETZYMICAELA L Rep #: [id number] : 1945 79 From: Monika Chaidez MD PCP: ADALBERTO Guy Status:[facility] Location: [facility] History and Physical Date of Admission: 01/24/25 Date of Service: 01/15/25 MR#: [id number] Acct: [id number] Name: MICAELA COCHRAN Rep #: [id number] : 1945 Provider: Dr. 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 Accompanied by: Is patient in pain?: No Allergies codeine Allergy (Verified 01/24/25 10:06) Unknown codeine phosphate (From Tylenol-Codeine #3) Adverse Reaction (Verified 01/24/25 10:06) Unknown nabumetone (From Relafen) Adverse Reaction (Verified 01/24/25 10:06) Unknown naproxen Adverse Reaction (Verified 01/24/25 10:06) Unknown Medications ???Medication ???Instructions ???Recorded ???Confirmed ???Type alendronate 70 mg tablet 70 mg PO QWEEK osteoporosis 09/07/22 01/24/25 Hist ory atorvastatin 20 mg tablet 20 mg PO QHS HLD 09/07/22 01/24/25 History fluoxetine 40 mg capsule 40 mg PO DAILY depression 09/07/22 01/24/25 Histor y omeprazole 20 mg capsule,delayed 20 mg PO DAILY GERD 09/07/22 01/24/25 History release calcium carbonate 500 mg (2.5 x 200 mg calcium (500 09/10/22 5 Rx mg)) PO TIDCM supplement #30 tabs cholecalciferol (vitamin D3) 25 50 mcg (2 x 25 mcg (1,000 unit)) 05/22/24 01/24/25 Rx mcg (1,000 unit) tablet PO DAILY #0 tabs multivitamin-iron 9 mg-folic acid 1 tab PO DAILYCM #0 tabs 05/22/24 01/24/25 Rx 400 mcg-calcium and minerals tablet (Therapeutic-M) acetaminophen 500 mg tablet 1,000 mg PO Q8 PRN pain 08/21/24 01/24/25 History cyclobenzaprine 5 mg tablet 5 mg PO TID PRN pain 10/09/24 01/24/25 History levothyroxine 125 mcg tablet 125 mcg PO DAILY 01/17/25 01/24/25 History Have you fallen in the past year?: No Nurse's Note: bladder scan PVR 14cc [facility] Medical History Wears dentures Wears glasses Post-menopausal Anxiety Thyroid disease Risk for falls Difficulty swallowing History of echocardiogram Poor historian Non-smoker Sleep apnea Hypertension Migraines Chronic anemia Obesity Anxiety and depression GERD (gastroesophageal reflux disease) HLD (hyperlipidemia) PAF (paroxysmal atrial fibrillation) Fibromyalgia Osteoporosis Paroxysmal atrial fibrillation T12 compression fracture Closed right hip fracture Syncope Hypothyroid Surgical History S/P ORIF (open reduction internal fixation) fracture History of section H/O ovarian cystectomy History of total right hip replacement S/P kyphoplasty S/P ORIF (open reduction internal fixation) fracture Family History Mother Cancer Father Cancer Social History household members: spouse Smoking Status: Never smoker alcohol intake: never substance use type: does not use HPI HPI Urology Chief Complaint: new patient stones Details: MICAELA COCHRAN, is a 79 F. Micaela is a new patient here after being diagnosed with a right ureteral stone with urinary tract infection. This is the first stone she has struggled with. She started having pain about 2 weeks ago with right sided back pain. No nauesa, vomiting, fever, chills, dysuria. There is no gross hematuria. The pain is the issue. She has chronic pain, and this is worse than her usual pain. She is still having intermittent significant pain. She was given cipro and flomax in the ER. ROS Const Constitutional: No chills, fatigue, fever(s), headache(s), night sweats, weakness, weight change, abnormal sleep pattern or change in appetite Eyes Eyes: No change in vision ENT ENT: No headache(s) or dry mouth Resp Respiratory: No cough, chest congestion, shortness of breath or wheezing Cardio Cardiology: Positive for other (No chest pain.); No shortness of breath, irregular heart rhythm or lightheadedness Gastro GI: Positive for other (No nausea.); No abdominal pain, change in bowel habits, constipation, diarrhea or vomiting Musc Musculoskeletal: Positive for back (more content not included)... [facility] 11-01-2024 Telephone encounter Note The following approved medication requests have been transmitted electronically. Requested Prescriptions Pending Prescriptions Disp Refills alendronate (FOSAMAX) 70 mg tablet 12 tablet 3 Sig: Take 1 tablet by mouth one time a week. Luis Enrique Caicedo APRN.BERNIE [facility] 11-01-2024 Miscellaneous Notes The following approved medication requests have been transmitted electronically. Requested Prescriptions Pending Prescriptions Disp Refills alendronate (FOSAMAX) 70 mg tablet 12 tablet 3 Sig: Take 1 tablet by mouth one time a week. Luis Enrique Caicedo APRN.CNP Prescription Refill Information The patient has been identified by name and date of : Yes Caregiver verified no other encounters exist for this prescription request: Yes Caregiver confirmed with patient/requestor that no other refills are due, in the near future, with this provider at this time: Yes The last office visit in the department: 10/03/2024 Does the patient have a future office visit with this provider/department: Yes Requested Prescriptions Pending Prescriptions Disp Refills alendronate (FOSAMAX) 70 mg tablet 12 tablet 3 Sig: Take 1 tablet by mouth one time a week. Kari Tony October 31, 2024 4:41 PM documented in this encounter [facility] 10-31-2024 Telephone encounter Note Prescription Refill Information The patient has been identified by name and date of : Yes Caregiver verified no other encounters exist for this prescription request: Yes Caregiver confirmed with patient/requestor that no other refills are due, in the near future, with this provider at this time: Yes The last office visit in the department: 10/03/2024 Does the patient have a future office visit with this provider/department: Yes Requested Prescriptions Pending Prescriptions Disp Refills alendronate (FOSAMAX) 70 mg tablet 12 tablet 3 Sig: Take 1 tablet by mouth one time a week. Kari Tony October 31, 2024 4:41 PM [facility] 10-12-2024 History of Presen t illness Narrative Images from the original note were not included. Chief Complaint Patient presents with: ED Follow-up HPI Micaela Cochran is a 78 year old female who presents here today for ER Follow Up.. Pt was in [facility] ER on 09/23/24 for dehydration and weakness. Pt is feeling better. Was told to follow up with PCP to adjust thyroid medication as TSH was elevated. Pt currently taking Synthroid 100 mcg daily. Pt went to [facility] ER on 10/09/24 for confusion and not feeling well. She states that her vision is occ double and doesn't make her think right. She saw Dr. Ramirez at [facility] who did MRI which didn't show anything. Eye doctor did some blood work which they are awaiting results on. ER recommended she follow up with Neurology. 10/09/24 visit 09/23/24 visit Chief complaint: Fatigue 78-year-old female presents with feeling rundown. She notes this has been going on for 3 days. She states she had a fall 10 days ago and injured her right knee and right hip. States she is able to ambulate although difficulty secondary diffuse weakness. notes decreased p.o. intake and she has been feeling more fatigued the last 3 days. Denies any head trauma or loss of conscious during initial fall they both deny any new headaches, chest pain, shortness of breath, palpitations, cough, fever, chills. Denies any abdominal pain, vomiting, diarrhea, nausea. Denies difficulty urination, urgency, frequency. Denies paleness of skin. Denies any new falls. MDM Narrative: The patient was initially hemodynamically stable, afebrile and nontoxic-appearing. Exam without focal neurologic deficits. Noted healing ecchymosis tothe right knee. No abdominal TTP. Lungs were clear no murmurs or auscultated rhythm abnormalities. I considered the following differential diagnosis: Dehydration, UTI, hypothyroidism, arrhythmia, ACS, anemia, electrolyte disturbance, pneumonia, viral illness amongst others I obtained a broad lab and imaging to further determine if the patient was suffering from a life-threatening etiology. Initially treated the patient with a 500 cc bolus of normal saline given report of decreased p.o. intake ALL IMAGES (IF OBTAINED) HAVE BEEN PERSONALLY REVIEWED AND INTERPRETED BY MYSELF. EKG with normal sinus rhythm, left axis deviation, prolonged QTc interval with a485, no STEMI, no arrhythmia. I have personally reviewed the patient's chest x-ray. Chest x-ray is unremarkable for pulmonary edema, pneumothorax, pneumonia or focal cardiopulmonary abnormality. CBC without leukocytosis, severe anemia, no thrombocytopenia. High-sensitivity troponin is negative, no evidence of myocardial ischemia Lipase is wnl indicating no pancreatic inflammation. TSH elevated consistent hypothyroidism, T4 normal, T3 slightly low again consistent with hypothyroidism will encourage continuation of home levothyroxine COVID flu RSV negative BMP without significant electrolyte abnormalities, there is a anion gap of suggest endorgan hypoperfusion likely suggesting dehydration in the clinical context of decreased p.o. intake. LFTs with slight elevations in AST, ALT and alk phos has no right upper quadrantabdominal pain, no GI specific symptoms such as nausea or vomiting. She is not jaundiced. Will encourage outpatient follow-up Urinalysis without UTI The patient was able to ambulate here in the ED without significant difficulty with her home walker. Her labs images suggest no acute life or limb threateningetiology. Likely dehydration from decreased p.o. intake. Will prescribe Zofranencouraged increase oral fluid intake The patient and/or family, caregivers express understanding. The patient and/orfamily, caregivers agrees with the plan. Shared decision making: I will have a discussion with the patient and or visitors regarding risk/benefits of further testing or admission. They will be made aware of of the risk/benefits inherent in this decision they will be given the opportunity to voice understanding. Total critical care time today provided was at least 0 minutes. This excludes separately billable procedures. Critical care time (if documented) is secondary to the patient having high probability of clinically significant/life threatening deterioration in the patient's condition which required my urgent intervention. I Past medical history, appointments, medications, allergies reviewed. [...] Procedure Laterality Date BREAST BIOPSY Left 12/16/2016 [facility]-Dr. Sandhu DELIVERY ONLY , low transverse x [...] Take 1 capsule by mouth once daily. levothyroxine (SYNTHROID) 100 mcg tablet Take 1 [...] use: No Drug use: No EXAM: BP 118/70 Pulse 72 Resp 16 Wt 57.7 kg (127 lb 3.3 oz) BMI 25.69 kg/m General Appearance: Well appearing, alert, in no acute distress, well-hydrated, well nourished.. Lungs: Lungs clear to auscultation. No wheezing, rhonchi, rales.. Heart: RRR without murmur, gallop, or rubs. No ectopy. Abdomen: Normal abdominal exam, Abdomen soft, non-tender. Bowel sounds normal. No masses, organomegaly. Health Maintenance List Shingrix Vaccine(1 of 2) Never done Bone Density Screening due on 05/22/2015 RSV Vaccine(1 - 1-dose 75+ series) Never done Influenza Vaccine(1) due on 11/12/2024 Annual PCP Team Chronic Disease Visit due on 09/03/2025 Anxiety Screening due on 09/03/2025 Diabetes Screening due on 10/11/2027 DTaP,Tdap,Td Vaccine(4 - Td or Tdap) due on 04/29/2028 Advance Directive Discussion Completed Medicare Advantage Annual Wellness Visit Completed Hepatitis C Screening Completed Pneumococcal Vaccine: 50+ Completed Mammogram Screening Discontinued Colorectal Cancer Screening Discontinued Data reviewed Care Everywhere 1. Hypothyroidism, unspecified type (E03.9) Currently on levothyroxine 100 mcg daily. Recent thyroid function tests suggest suboptimal control. - Increased levothyroxine dose to 125 mcg daily. - Sent prescription to [facility] for immediate initiation. - Recheck thyroid function tests in 2 months. 2. Elevated alkaline phosphatase level (R74.8) Elevated LFTs (R79.89) Recent lab work shows mildly elevated liver function tests, including alkaline phosphatase. - Ordered liver ultrasound to be performed at the specialty building on the corner [address] in [place]. - Follow-up in 2 months to review results and assess liver function. 3. Diplopia (H53.2) Intermittent diplopia noted. Recent MRI ordered by [facility] administrator was unremarkable. Blood tests for myasthenia gravis are pending. - Monitor symptoms; no immediate intervention required based on current findings. I agree with the Chief Complaint, ROS, and Past Histories independently gathered by the clinical learning support assistant and the remaining scribed note accurately describes my personal service to the patient. Recording using [employer] software for draft documentation of the visit was discussed with the patient/authorized commercial pest control representative; all questions welcomed and answered. Patient/authorized commercial pest control representative agreed to proceed Medical Decision Making: Problems: Moderate: 1+ chronic illnesses with change and New problem with uncertain prognosis Data: Unique test result(s) reviewed: 3+ Unique test(s) ordered: 3+ Risk: Moderate: Drug management Medical Decision Making Level: 4 - Moderate Vera Pompa MD The documentation for this note was completed by Nettie Brandt MA acting as scribe for Vera Pompa MD. October 12, 2024 2:22 PM. Nettie Brandt MA documented in this encounter [facility] 10-12-2024 Note HNO ID: [id number] Author: VERA POMPA MD Service: ? Author Type: Physician Type: Progress Notes Filed: 10/12/2024 17:43 Note Text: Chief Complaint Patient presents with: ED Follow-up HPI Micaela Cochran is a 78 year old female who presents here today for ER Follow Up.. Pt was in [facility] ER on 09/23/24 for dehydration and weakness. Pt is feeling better. Was told to follow up with PCP to adjust thyroid medication as TSH was elevated. Pt currently taking Synthroid 100 mcg daily. Pt went to [facility] ER on 10/09/24 for confusion and not feeling well. She states that her vision is occ double and doesn't make her think right. She saw Dr. Ramirez at [facility] who did MRI which didn't show anything. Eye doctor did some blood work which they are awaiting results on. ER recommended she follow up with Neurology. 10/09/24 visit 09/23/24 visit Chief complaint: Fatigue 78-year-old female presents with feeling rundown. She notes this has been going on for 3 days. She states she had a fall 10 days ago and injured her right knee and right hip. States she is able to ambulate although difficulty secondary diffuse weakness. notes decreased p.o. intake and she has been feeling more fatigued the last 3 days. Denies any head trauma or loss of conscious during initial fall they both deny any new headaches, chest pain, shortness of breath, palpitations, cough, fever, chills. Denies any abdominal pain, vomiting, diarrhea, nausea. Denies difficulty urination, urgency, frequency. Denies paleness of skin. Denies any new falls. MDM Narrative: The patient was initially hemodynamically stable, afebrile and nontoxic-appearing. Exam without focal neurologic deficits. Noted healing ecchymosis tothe right knee. No abdominal TTP. Lungs were clear no murmurs or auscultated rhythm abnormalities. I considered the following differential diagnosis: Dehydration, UTI, hypothyroidism, arrhythmia, ACS, anemia, electrolyte disturbance, pneumonia, viral illness amongst others I obtained a broad lab and imaging to further determine if the patient was suffering from a life-threatening etiology. Initially treated the patient with a 500 cc bolus of normal saline given report of decreased p.o. intake ALL IMAGES (IF OBTAINED) HAVE BEEN PERSONALLY REVIEWED AND INTERPRETED BY MYSELF. EKG with normal sinus rhythm, left axis deviation, prolonged QTc interval with a485, no STEMI, no arrhythmia. I have personally reviewed the patient's chest x-ray. Chest x-ray is unremarkable for pulmonary edema, pneumothorax, pneumonia or focal cardiopulmonary abnormality. CBC without leukocytosis, severe anemia, no thrombocytopenia. High-sensitivity troponin is negative, no evidence of myocardial ischemia Lipase is wnl indicating no pancreatic inflammation. TSH elevated consistent hypothyroidism, T4 normal, T3 slightly low again consistent with hypothyroidism will encourage continuation of home levothyroxine COVID flu RSV negative BMP without significant electrolyte abnormalities, there is a anion gap of suggest endorgan hypoperfusion likely suggesting dehydration in the clinical context of decreased p.o. intake. LFTs with slight elevations in AST, ALT and alk phos has no right upper quadrantabdominal pain, no GI specific symptoms such as nausea or vomiting. She is not jaundiced. Will encourage outpatient follow-up Urinalysis without UTI The patient was able to ambulate here in the ED without significant difficulty with her home walker. Her labs images suggest no acute life or limb threateningetiology. Likely dehydration from decreased p.o. intake. Will prescribe Zofranencouraged increase oral fluid intake The patient and/or family, caregivers express understanding. The patient and/orfamily, caregivers agrees with the plan. Shared decision making: I will have a discussion with the patient and or visitors regarding risk/benefits of further testing or admission. They will be made aware of of the risk/benefits inherent in this decision they will be given the opportunity to voice understanding. Total critical care time today provided was at least 0 minutes. This excludes separately billable procedures. Critical care time (if documented) is secondary to the patient having high probability of clinically significant/life threatening deterioration in the patient's condition which required my urgent intervention. I Past medical history, appointments, medications, allergies reviewed. Previous Medical History PAST MEDICAL HISTORY Diagnosis Date Adjustment disorder with depressed mood Breast calcifications 12/2016 Depression Iron deficiency anemia, unspecified Lateral sclerosis Migraine headache without aura <=1 per month as of May 2013 Myalgia and myositis, unspecified Osteoarthritis Spastic paresis (HCC) Unspecified hypothyroidism Previous Surgical History PAST SURGICAL HISTORY Proce (more content not included)... [facility] 10-11-2024 Telephone encounter Note Will review at appt Vera Pompa MD [facility] 10-11-2024 Miscellaneous Notes Will review at appt Vera Pompa MD reports pt was seen at [facility] ER on 09/23/24 for dehydration/weakness. scheduled ER f/u appt for 10/12/24 (1st available in pcp office). Reports pt is feeling better. reports ER doctor told them pt's thyroid number was low, and advised them to call pcp to adjust levothyroxine 100 mcg daily. Please advise . documented in this encounter [facility] 10-09-2024 Discharge summary [facility] 10-09-2024 Radiology Diagnostic study note [facility] Imaging Services [address] [place], [place] [id number] CTA Head AND Neck W/ Contrast MR#: [id number] Acct: [id number] Name: MICAELA COCHRAN Rep #: [id number] : 1945 F 78 From: Bucky Stephen MD PCP: Dr. Vera Pompa MD Status: RE G ER Study:CTA Head AND Neck W/ Contrast Date of E xam: 10/09/24 Exam# [id number] Ordering Dr: Tania Vaughn DO PROCEDURE: CTA HEAD AND NECK W/ CONTRAST 10/09/2024 REASON FOR EXAM: DIFFICULTY WITH VISION TECHNIQUE: CTA HEAD AND NECK W/ CONTRAST Multiplanar Sagittal and Coronal images were obtained. 3D post processing was performed CONTRAST: Isovue 370 VOLUME: 75 mL One or more dose reduction techniques were used (e.g., Automated exposure control, adjustment of the mA and/or kV according to patient size, use of iterative reconstruction technique). RADIATION DOSE SUMMARY: CTDlvol: 24 mGy DLP: 1307.26 mGycm COMPARISON: Prior CT scan of the head dated May 25, 2023. FINDINGS: Aortic Arch: Normal size and branching pattern. Mild atherosclerotic plaque. Brachiocephalic and Subclavians: Mild atherosclerotic plaque without significantstenosis. RIGHT Carotid: Right CCA: Unremarkable. Right ICA: Maximum stenosis (NASCET): <50 % Right ECA: Unremarkable. LEFT Carotid: Left CCA: Unremarkable. Left ICA: Mild calcified and soft plaque. Maximum stenosis (NASCET): <50 % Left ECA: Unremarkable. Vertebrals: Codominant. Arise from the subclavians. Both vertebrals form the basilar. RIGHT Vertebral: Unremarkable. LEFT Vertebral: Unremarkable. Anatomy: [place] anatomy is normal. Aneurysm or avm: No intracranial aneurysms or large vascular malformations are identified. Anterior cerebral arteries: Unremarkable: Middle cerebral arteries: Unremarkable. Basilar artery: Unremarkable. Posterior cerebral arteries: Unremarkable. Other major branches of the posterior circulation: Unremarkable. Major venous structures: Unremarkable. Other findings: Chronic changes on the unenhanced CT scan of the brain with the dense calcifications of the basal ganglia bilaterally. CT/CTA Head AND Neck W/ Contrast IMPRESSION: No significant plaque formation is seen. Chronic changes on the unenhanced CT scan of the brain. Reading Location: [id number] CC: Dr. Vera Pompa MD; Dr. Nataly Vaughn DO ~ Inspector Cold Working: Signed [facility] 10-09-2024 Discharge summary Note Date/Time October 09, 2024 6:03pm [facility] Medical Records Department [address] [place] [address] Emergency Department Summary 10/09/24 MR#: [id number] Acct: [id number] Name: MICAELA COCHRAN Rep #:[id number] : 1945 78 From: Nataly Vaughn DO PCP: Dr. Vera Pompa MD Status:RE G ER Location: ED ADDENDUM by Dr. Laquita Anaya DO on 10/09/24 at 1803 Patient signed out to me pending CTA results and urinalysis. CT does not show any acute process. Urinalysis not distant with infection or other acute abnormalities. Patient reevaluated. She is comfortable discharge home with continued outpatient follow-up with ophthalmology. She has lab work scheduled for tomorrow. She is encouraged to keep this. Will be given referral for neurologyas well. Discussed return symptoms including fever, difficulty swallowing/choking, shortness of breath or progression of her symptoms. She verbalized understand this. Discharged home in stable condition. 10/09/24 180<Electronically signed by Laquita Anaya DO> Cosigner Signature (if applicable): cc: Dr. Vera Pompa MD ~* Signed HPI History of Present Illness Chief Complaint: Confusion Detail of Chief Complaint: Not feeling well Informant: patient Narrative Narrative: Patient presents to the emergency department with vague complaint of not feelingwell. She has a hard time describing how she does not feel well. She describesfeeling like she is only half there. states that while in the bathroom today she seemed a little disoriented. She for over the last week or so has been having some issue with her left eye. She has been seen by ophthalmology who ordered an MRI of her brain that was performed and was unremarkable. More blood testing was ordered yesterday. Patient denies recent illness. She has had some intermittent double vision. She denies chest pain orabdominal pain. She denies urinary symptoms. She has had no fever. [facility] Medical History Hypothyroid Non-smoker Sleep apnea Hypertension Migraines Chronic anemia Obesity Anxiety and depression GERD (gastroesophageal reflux disease) HLD (hyperlipidemia) PAF (paroxysmal atrial fibrillation) Fibromyalgia Osteoporosis Paroxysmal atrial fibrillation T12 compression fracture Closed right hip fracture Syncope Home Medications ?Medication ?Instructions ?Recorded ?Last Taken ?Type alendronate 70 mg tablet 70 mg PO QWEEK osteoporosis 09/07/22 08/16/24 History atorvastatin 20 mg tablet 20 mg PO QHS HLD 09/07/22 History fluoxetine 40 mg capsule 40 mg PO DAILY depression 10/08/24 History omeprazole 20 mg capsule,delayed 20 mg PO DAILY GERD 0 09/07/22 10/08/24 History release calcium carbonate 500 mg (2.5 x 200 mg calcium (500 09/10/22 10/08/24 Rx mg)) PO TIDCM supplement #30 tabs levothyroxine 100 mcg tablet 100 mcg PO DAILY THYROID 05/05/24 10/09/24 History cholecalciferol (vitamin D3) 25 50 mcg (2 x 25 mcg (1, 000 unit)) 05/22/24 10/08/24 Rx mcg (1,000 unit) tablet PO DAILY #0 tabs multivitamin-iron 9 mg-folic acid 1 tab PO DAILYCM #0 tabs 05/22/24 10/08/24 Rx 400 mcg-calcium and minerals tablet (Therapeutic-M) acetaminophen 500 mg tablet 1,000 mg PO Q8 PRN pain 08/21/24 History cyclobenzaprine 5 mg tablet 5 mg PO TID PRN pain 10/0910/09/24 History Allergy/AdvReac Type Severity Reaction Status Date / Time codeine Allergy Unknown Verified 10/09/24 13:02 codeine phosphate (From AdvReac Unknown Verified 10/09/24 13:02 Tylenol-Codeine #3) nabumetone (From Relafen) AdvReac Unknown Verified 10/09/24 13:02 naproxen AdvReac Unknown Verified 10/09/24 13:02 Family History Mother Cancer Father Cancer Surgical History S/P ORIF (open reduction internal fixation) fracture History of section H/O ovarian cystectomy History of total right hip replacement S/P kyphoplasty S/P ORIF (open reduction internal fixation) fracture Social History household members: spouse Smoking Status: Never smoker alcohol intake: never substance use type: does not use ROS ROS ED Review of Systems ROS Unobtainable: other Constitutional Constitutional ED: Reports lethargy; Denies chills, fever(s), sweats or weight loss Eyes Eyes: Reports diplopia; Denies blurry vision or change in vision ENT ENT ED: Denies rhinorrhea or sore throat Cardiovascular Cardiovascular: Denies chest pain, orthopnea or racing heartbeat Respiratory/Chest Respiratory/Chest: Denies cough, dyspnea, dyspnea on exertion, orthopnea or sputum Gastrointestinal Gastrointestinal: Denies abdominal pain, diarrhea, nausea or vomiting Genitourinary Genitourinary ED: Denies dysuria, hematuria or urinary frequency Musculoskeletal Musculoskeletal: Denies arthralgias, back pain, myalgias or neck pain Integumentary Denies abscess, Abrasions or rash Neurologic Neurologic: Reports weakness; Denies headache(s) Psychiatric Psychiatric: Denies anxiety, depression or suicidal thoughts Endocrine Endocrinology: Denies polydipsia, polyphagia or polyuria Hematologic/Lymphatic Hematologic/Lymphatic: Denies easy bleeding, easy bruising or lymphadenopathy Allergic/Immunologic Allergic/Immunologic ED: Denies mouth swelling, tongue swelling or urticaria EXAM Physical Exam Const Vital Signs: 10/09/24 13:00 Temperature 97.3 F L Temperature Source Oral Pulse Rate 101 H Respiratory Rate 16 Blood Pressure 130/90 H Blood Pressure Mean 103 Pulse Ox 96 Oxygen Delivery Method Room Air Positive well nourished and well developed General Appearance ED: well developed and NAD HEENT Reports TM's clear and moist mucous membranes HEENT Narrative: Left upper eyelid slightly weak compared to the right. normocephalic and atraumatic; Negative for trauma or tenderness Tympanic Membrane ED: Yes TM's clear Eyes PERRL and EOMs intact bilaterally General Eye ED: Negative for pale conjunctiva or scleral icterus Neck no lymphadenopathy, supple and no JVD General: Negative for tenderness Chest Wall inspection of chest normal and palpation of chest normal Chest: Negative for tenderness Resp normal respiratory effort and clear to auscultation bilaterally Effort and Inspection: Negative for respiratory distress or pain with movement Auscultation: Negative for rhonchi, wheezes or diminished lung sounds Cardio regular rate, regular rhythm, S1 normal heart sound, S2 normal heart sound and no murmurs Peripheral Pulses: pulses 2+ throughout GI normal to inspection, nondistended, normoactive bowel sounds, soft to palpation,non-tender, non-distended and no masses Back/Spine no CVA tenderness and no thoracic nor lumbar tenderness Extremity normal to inspection General Extremety ED: Negative for edema General Extremity: Negative for edema Neuro oriented x3, CN's II-XII intact bilaterally, no sensory deficits noted and gait normal Sensorium / Orientation: awake, alert, oriented to person, oriented to place andoriented to time Motor Exam: strength 5/5 throughout and strength abnormal Psych mental status grossly normal Skin no rashes or lesions noted and no wounds MDM MDM MDM Narrative Medical decision making narrative: Patient presents the emergency department with vague complaint of chest not feeling right. Currently being followed by ophthalmology and had recent MRI of the brain on September 23 that was normal. I spoke with ophthalmology Dr. Ayala who stated that he is not certain the etiology of her symptoms and did order more labs yesterday to evaluate for myasthenia gravis. He recommended CTA of head and neck to rule out posterior circulation aneurysm and also recommended outpatient follow-up with neurology. Lab testing for myasthenia gravis typically can take up to 2 weeks. On arrival her EKG showed sinus rhythm with rate of 77 bpm with no acute ST segment changes. CBC with differential showed anormal white count of 7.2 with hemoglobin 11.9 and platelet count of 429. Chemistries were unremarkable. Sed rate slightly elevated 40. Alkaline phosphatase was 305 with an AST of 57 and ALT of 82. TSH was elevated at 16.4 but it is down from 20. Care of patient turned over to evening physician awaiting CTA results and final disposition. Lab Data Attestation: I reviewed the patient's lab results. Labs: Laboratory Results - last 24 hr 10/09/24 10/09/24 13:20 13:50 WBC 7.2 RBC 3.91 L Hgb 11.9 L Hct 37.6 MCV 96.2 MCH 30.4 MCHC 31.6 L RDW Std Deviation 46.2 H RDW Coeff of Serafin 13.2 Plt Count 429 MPV 9.8 Immature Gran % (Auto) 0.400 Neut % (Auto) 68.4 Lymph % (Auto) 18.9 L [place] % (Auto) 7.3 Eos % (Auto) 4.2 Baso % (Auto) 0.8 Absolute Neuts (auto) 4.9 Absolute Lymphs (auto) 1.35 Nucleated RBC % 0 ESR 40 H Sodium 137 Potassium 4.3 Chloride 103 Carbon Dioxide 20.2 L Anion Gap 14 BUN 14 Creatinine 0.67 L Estim Creat Clear Calc 48.11 L Est GFR (MDRD) Non-Af 90 BUN/Creatinine Ratio 20.9 H Glucose 92 Calcium 8.6 Magnesium 2.0 Total Bilirubin 0.76 AST 67 H ALT 82 H Alkaline Phosphatase 305 H C-React Prot Ext Range 5.52 H Total Protein 7.0 Albumin 3.4 Globulin 3.6 Albumin/Globulin Ratio 0.9 TSH 16.400 H Discharge Plan Triage Chief Complaint: Confusion ED Provider: Nataly Vaughn Dx/Rx/DC Orders Clinical Impression: Weakness, Diplopia Prescriptions: No Action fluoxetine 40 mg capsule 40 mg PO DAILY atorvastatin 20 mg tablet 20 mg PO QHS Patient Comments: PT THINKS SHE IS TAKING SOMETHING FOR CHOLESTEROL AND THAT IT MAY BE ATORVASTATIN alendronate 70 mg tablet 70 mg PO QWEEK Rx Instructions: weekly. omeprazole 20 mg capsule,delayed release(DR/EC) 20 mg PO DAILY calcium carbonate 200 mg calcium (500 mg) Tablet,Chewable 500 mg PO TIDCM Qty: 30 0RF cholecalciferol (vitamin D3) 25 mcg (1,000 unit) Tablet 50 mcg PO DAILY Qty: 0 0RF Therapeutic-M 9 mg iron-400 mcg Tablet 1 tab PO DAILYCM Qty: 0 0RF cyclobenzaprine 5 mg tablet 5 mg PO TID PRN (Reason: pain) levothyroxine 100 mcg tablet 100 mcg PO DAILY Patient Comments: [NO ORIGINAL SIG] acetaminophen 500 mg Tablet 1,000 mg PO Q8 PRN (Reason: pain) Primary Care Provider: Vera Pompa Referrals: Vera Pompa MD [Primary Care Provider] - [facility] [Other] Alcides Mcneil MD [Non-Staff -Ordering Privileges] - 3-5 Days Print Language: [place] What to do if you have Problems For any increased pain, shortness of breath, bleeding, nausea or vomiting, chestpain, or any unexpected problems, contact your Primary Care Provider. Call [facility] ([phone]) or report to the closest Emergency Room. Call 911 if necessary. 10/09/24 1512 <Electronically signed by Nataly Vaughn DO> Cosigner Signature (if applicable): CC: Dr. Vera Pompa MD ~ Signed [facility] Work Phone: [phone] 169-749807-25-2025 NoteHNO ID: [id number] Author: APRYL NGUYEN CPhT Service: ? Author Type: Seed Expert Type: Progress Notes Filed: 10/05/2024 10:27 Note Text: Patient is identified through a medication adherence outreach initiative based on pharmacy claims data from: [employer] Medication Adherence Category: Statins Third Attempt Medication(s) Atorvastatin 20 mg Medication Status per portal/Epic Reconcile Dispense: Not filled Medication Status per Profile Review: No refills Patient identified by name and Outreach to patient: Attempted Voicemail, VM full/not setup What was primary intervention? No intervention Apryl Nguyen CPhT [facility] Telephone encounter Note* Telephone Encounter - Duke Marroquin RN - 10/03/2024 10:23 AM EDT reports pt was seen at [facility] ER on 09/23/24 for dehydration/weakness. scheduled ER f/uappt for 10/12/24 (1st available in pcp office). Reports pt is feeling better. reports ER doctor told them pt's thyroid number was low, and advised them to call pcp to adjust levothyroxine 100 mcg daily. Please advise . [facility]07-14-2025 NoteHNO ID: [id number] Author: TIFF TRIVEDI CPhT Service: ? Author Type: Seed Expert Type: Progress Notes Filed: 09/24/2024 15:37 Note Text: Patient is identified through a medication adherence outreach initiative based on pharmacy claims data from: [employer] Medication Adherence Category: Statins Second Attempt Medication(s) Atorvastatin 20 mg 1 tab daily Due 08/13/24 last filled 05/16/24 for 90 ds Filled 10/08/23, 12/21/23, 03/03/24 all 90 ds Medication Status per portal/Epic Reconcile Dispense: Not filled Medication Status per Profile Review: No issues per profile review Patient identified by name and Outreach to patient: Attempted Voicemail, VM full/not setup What was primary intervention? No intervention Tiff Trivedi CPhT [facility] History of Present illness Narrative* Tiff Trivedi CPhT - 09/24/2024 3:33 PM EDT Patient is identified through a medication adherence outreach initiative based on pharmacy claims data from: [employer] Medication Adherence Category: Statins Second Attempt Medication(s) Atorvastatin 20 mg 1 tab daily Due 08/13/24 last filled 05/16/24 for 90 ds Filled 10/08/23, 12/21/23, 03/03/24 all 90 ds Medication Status per portal/Epic Reconcile Dispense: Not filled Medication Status per Profile Review: No issues per profile review Patient identified by name and Outreach to patient: Attempted Voicesrikanthil, WENDY full/not setup What was primary intervention? No intervention Tiff Trivedi CPhT [facility] Team [facility] NotePatient Outreach (PHPOHE) MICAELA COCHRAN ([id number]) 1945 F Date Time Provider Department 09/24/24 VERA POMPA PHPOHE During your visit today, we recorded the following information about you: Tiff Trivedi CPhT 09/24/2024 3:37 PM Signed Patient is identified through a medication adherence outreach initiative based on pharmacy claims data from: [employer] Medication Adherence Category: Statins Second Attempt Medication(s) Atorvastatin 20 mg 1 tab daily Due 08/13/24 last filled 05/16/24 for 90 ds Filled 10/08/23, 12/21/23, 03/03/24 all 90 ds Medication Status per portal/Epic Reconcile Dispense: Not filled Medication Status per Profile Review: No issues per profile review Patient identified by name and Outreach to patient: Attempted Voicemail, VM full/not setup What was primary intervention? No intervention Tiff Trivedi CPhT [facility] Apryl Nguyen CPhT 10/05/2024 10:27 AM Signed Patient is identified through a medication adherence outreach initiative based on pharmacy claims data from: [employer] Medication Adherence Category: Statins Third Attempt Medication(s) Atorvastatin 20 mg Medication Status per portal/Epic Reconcile Dispense: Not filled Medication Status per Profile Review: No refills Patient identified by name and Outreach to patient: Attempted Voicemail, VM full/not setup What was primary intervention? No intervention Apryl Nguyen CPhT [facility] Team Allergies As of Date: 09/24/2024 Noted Allergy Reaction ACETAMINOPHEN-CODEINE 04/07/2023 16 - [...] Cmt: Medication Adherence Outreach Prescriptions as of 10/05/2024 - omeprazole (PRILOSEC) 20 mg capsule Take [...] once daily. Problem List As Of Date 09/24/2024 Noted Resolved Major depressive disorder, recurrent episode [...] Gait instability [R26.81] 06/21/2024 Encounter Status:Closed by TIFF TRIVEDI on 09/24/24[facility] Discharge summary [facility] Medical Records Department [address] [place] [address] Emergency Department Summary 09/23/24 MR#: [id number] Acct: [id number] Name: MICAELA COCHRAN Rep #:[id number] : 1945 78 From: Arcenio Wilkins PCP: Dr. Vera Pompa MD Status:RE G ER Location: ED HPI History of Present Illness Chief Complaint: Weakness PFSH PFSH Medical History Hypothyroid Non-smoker Sleep [...] mg PO Q8 PRN pain 08/21/24 History ondansetron 4 mg disintegrating 4 mg PO Q8H PRN PRN Na usea #10 tabs 09/23/24 Unknown Rx tablet Allergy/AdvReac Type Severity Reaction Status Date / Time codeine Allergy Unknown Verified 09/23/24 10:25 codeine phosphate (From AdvReac Unknown Verified 09/23/24 10:25 Tylenol-Codeine #3) nabumetone (From Relafen) AdvReac Unknown Verified 09/23/24 10:25 naproxen AdvReac Unknown Verified 09/23/24 10:25 Family History Mother Cancer Father Cancer Surgical History S/P ORIF (open reduction internal fixation) fracture History of section H/O ovarian cystectomy History of total right hip replacement S/P kyphoplasty S/P ORIF (open reduction internal fixation) fracture Social History household members: spouse Smoking Status: Never smoker alcohol intake: never substance use type: does not use EXAM Physical Exam Const Vital Signs: 09/23/24 10:24 09/23/24 10:25 09/23/24 12:23 Temperature 98.3 F Temperature Source Oral Pulse Rate 88 78 Respiratory Rate 14 15 Respiratory Effort Normal Respiratory Pattern Normal Blood Pressure 153/91 H 166/94 H Blood Pressure Mean 111 118 Pulse Ox 96 98 Oxygen Delivery Method Room Air Room Air 09/23/24 14:00 Temperature Temperature Source Pulse Rate 74 Respiratory Rate 16 Respiratory Effort Respiratory Pattern Blood Pressure 181/91 H Blood Pressure Mean 121 Pulse Ox 93 Oxygen Delivery Method Room Air MDM MDM MDM Narrative Medical decision making narrative: HISTORY OF PRESENT ILLNESS: Chief complaint: Fatigue 78-year-old female presents with feeling rundown. She notes this has been going on for 3 days. She states she had a fall 10 days ago and injured her right knee and right hip. States she is able to ambulate although difficulty secondary diffuse weakness. notes decreased p.o. intake and shehas been feeling more fatigued the last 3 days. Denies any head trauma or loss of conscious during initial fall they both deny any new headaches, chest pain, shortness of breath, palpitations, cough,fever, chills. Denies any abdominal pain, vomiting, diarrhea, nausea. Denies difficulty urination, urgency, frequency. Denies paleness of skin. Denies any new falls. REVIEW OF SYSTEMS: Pertinent positives: Fatigue Pertinent negatives: As per HPI PHYSICAL EXAM: Nursing triage notes reviewed, Vital signs reviewed Constitutional: please see mdm HENT: MMM Eyes: Pupils equal round and reactive to light, Extraocular muscles intact Neck: No stridor, no JVD, full neck ROM Lungs: Clear to auscultation, No wheezing or rales. No increased work of breathing, no conversational dyspnea, no accessory muscle use, no nasal flaring. No respiratory distress noted Heart: Regular rate and rhythm, No murmurs, No rubs and No gallops, 2+ distal pulses (radial, femoral, posterior tibial) in all extremities Abdomen: Soft, there is no tenderness, rigidity, rebound or guarding, no obviousperitoneal signs, no palpable pulsatile abdominal masses, no auscultated abdominal bruit : No CVAT Extremities: No edema Neuro: No new focal neurological deficits, cranial nerves II through XII intact,5/5 strength in allpresent extremities. Intact sensation to light touch in all present extremities, 2+ reflexes bilateral patella tendons. Skin: No rash or lesions noted MEDICAL DECISION MAKING: Chief Complaint: please see HPI External records reviewed: Reviewed prior cardiovascular testing: Reviewed echocardiogram from 2017which showed ejection fraction of 65%. No wall motion abnormalities were noted during the study. Factors affecting care: Atrial fibrillation no anticoagulation osteoporosis, hyperlipidemia, GERD hypothyroidism, Social determinants of health: none History obtained from others: none Consults: none [facility] Narrative: The patient was initially hemodynamically stable, afebrile and nontoxic- appearing. Exam without focal neurologic deficits. Noted healing ecchymosis tothe right knee. No abdominal TTP. Lungs were clear no murmurs or auscultated rhythm abnormalities. I considered the following differential diagnosis: Dehydration, UTI, hypothyroidism, arrhythmia, ACS, anemia, electrolyte disturbance, pneumonia, viral illness amongst others I obtained a broad lab and imaging to further determine if the patient was suffering from a life-threatening etiology. Initially treated the patient with a 500 cc bolus of normal saline given report of decreased p.o. intake ALL IMAGES (IF OBTAINED) HAVE BEEN PERSONALLY REVIEWED AND INTERPRETED BY MYSELF. EKG with normal sinus rhythm, left axis deviation, prolonged QTc interval with a485, no STEMI, no arrhythmia. I have personally reviewed the patient's chest x-ray. Chest x-ray is unremarkable for pulmonary edema, pneumothorax, pneumonia or focal cardiopulmonary abnormality. CBC without leukocytosis, severe anemia, no thrombocytopenia. High-sensitivity troponin is negative, no evidence of myocardial ischemia Lipase is wnl indicating no pancreatic inflammation. TSH elevated consistent hypothyroidism, T4 normal, T3 slightly low again consistent with hypothyroidism will encourage continuation of home levothyroxine COVID flu RSV negative BMP without significant electrolyte abnormalities, there is a anion gap of suggest endorgan hypoperfusion likely suggesting dehydration in the clinical context of decreased p.o. intake. LFTs with slight elevations in AST, ALT and alk phos has no right upper quadrantabdominal pain, no GI specific symptoms such as nausea or vomiting. She is not jaundiced. Will encourage outpatient follow-up Urinalysis without UTI The patient was able to ambulate here in the ED without significant difficulty with her home walker. Her labs images suggest no acute life or limb threateningetiology. Likely dehydration from decreased p.o. intake. Will prescribe Zofranencouraged increase oral fluid intake The patient and/or family, caregivers express understanding. The patient and/orfamily, caregivers agrees with the plan. Shared decision making: I will have a discussion with the patient and or visitors regarding risk/benefits of further testing or admission. They will be made aware of of the risk/benefits inherent in this decision they will be given the opportunity to voice understanding. Total critical care time today provided was at least 0 minutes. This excludes separately billable procedures. Critical care time (if documented) is secondary to the patient having high probability ofclinically significant/life threatening deterioration in the patient's condition which required my urgent intervention. Impression: 1. Fatigue 2. Dehydration Dispo: Discharge This note was generated with [employer] dictation software. It may contain incorrectwords, spelling, and punctuation that were not noted in review of the chart prior to signing. Lab Data Labs: Laboratory Results - last 24 hr 09/23/24 09/23/24 10:44 12:54 WBC 9.4 RBC 4.18 L Hgb 12.8 Hct 38.3 MCV 91.6 MCH 30.6 MCHC 33.4 RDW Std Deviation 41.5 RDW Coeff of Serafin 12.4 Plt Count 442 MPV 9.4 Sodium 138 Potassium 3.7 Chloride 99 Carbon Dioxide 21.8 Anion Gap 17 H BUN 14 Creatinine 0.66 L Est GFR (MDRD) Non-Af 91 BUN/Creatinine Ratio 21.4 H Glucose 104 H Calcium 9.8 Total Bilirubin 0.75 AST 45 H ALT 63 H Alkaline Phosphatase 300 H Troponin T High Sens 10 Total Protein 7.9 Albumin 3.9 Globulin 4.0 Albumin/Globulin Ratio 1.0 Lipase 23 TSH 22.800 H Free T4 1.20 Free T3 pg/dL 1.5 L Urine Color Yellow Urine Clarity Clear Urine pH 6.0 Ur Specific [place] 1.015 Urine Protein 30 H Urine Glucose (UA) Normal Urine Ketones 15 H Urine Occult Blood 25 H Urine Nitrite Negative Urine Bilirubin Negative Urine Urobilinogen Normal Ur Leukocyte Esterase 25 H Urine RBC 0-5 SEEN Urine WBC 0-5 SEEN Ur Squamous Epith Cells 0-5 SEEN Calcium Oxalate Crystal 1+ Urine Bacteria 0 SEEN Urine Mucus 2+ Radiography Diagnostic Testing: Clinical Impression(s) from Imaging Studies Chest X-Ray 09/23/24 10:55 IMPRESSION: No Acute Findings. Reading Location: [facility] Discharge Plan Triage Chief Complaint: Weakness ED Provider: Arcenio Trammell Dx/Rx/DC Orders Clinical Impression: Acute dehydration, Hypothyroid Instructions: ED Dehydration (Adult) Prescriptions: New ondansetron 4 mg tablet,disintegrating 4 mg PO Q8H PRN PRN (Reason: Nausea) Qty: 10 0RF No Action fluoxetine 40 mg capsule [...] Vera Pompa MD [Primary Care Provider] - Activity Restrictions/Additional Instructions: Thank you for trusting us with your care today! Your presentation is likely secondary to dehydration and hypothyroidism. Please drink plenty of electrolyte containing beverages such as Body Armor, Pedialyte or Gatorade. Please follow with your primary care physician for further treatment of hypothyroidism. Please continue taking your already prescribed levothyroxine. This likely need to be adjusted Please take Tylenol (2 pills, 650 mg), ibuprofen (2 pills, 400 mg) every 6 hoursas needed for pain and fever control. Please return to the emergency department if your symptoms change or worsen. Please follow with your primary care physician for further outpatient evaluationand management. Print Language: [place] Disposition Disposition: Home, Self Care What to do if you have Problems For any increased pain, shortness of breath, bleeding, nausea or vomiting, chestpain, or any unexpected problems, contact your Primary Care Provider. Call [facility] ([phone]) or report tothe closest Emergency Room. Call 911 if necessary. 09/23/24 1436 Cosigner Signature (if applicable): CC: Dr. Vera Pompa MD ~ Signed [facility]07-13-2025 Discharge summary Author Arcenio Diazrus [facility] Note Date/Time September 23, 2024 2:39 pm [facility] Medical Records Department [address] [place] [address] Emergency Department Summary 09/23/24 MR#: [id number] Acct: [id number] Name: MICAELA COCHRAN Rep #:[id number] : 1945 78 From: Arcenio Wilkins PCP: Dr. Vera Pompa MD Status:RE G ER Location: ED HPI History of Present Illness Chief [facility]: [facility] Medical History Hypothyroid Non-smoker Sleep apnea Hypertension [...] mg PO Q8 PRN pain 08/21/24 History ondansetron 4 mg disintegrating 4 mg PO Q8H PRN PRN Na usea #10 tabs 09/23/24 Unknown Rx tablet Allergy/AdvReac Type Severity Reaction Status Date / Time codeine Allergy Unknown Verified 09/23/24 10:25 codeine phosphate (From AdvReac Unknown Verified 09/23/24 10:25 Tylenol-Codeine #3) nabumetone (From Relafen) AdvReac Unknown Verified 09/23/24 10:25 naproxen AdvReac Unknown Verified 09/23/24 10:25 Family History Mother Cancer Father Cancer Surgical History S/P ORIF (open reduction internal fixation) fracture History of section H/O ovarian cystectomy History of total right hip replacement S/P kyphoplasty S/P ORIF (open reduction internal fixation) fracture Social History household members: spouse Smoking Status: Never smoker alcohol intake: never substance use type: does not use EXAM Physical Exam Const Vital Signs: 09/23/24 10:24 09/23/24 10:25 09/23/24 12:23 Temperature 98.3 F Temperature Source Oral Pulse Rate 88 78 Respiratory Rate 14 15 Respiratory Effort Normal Respiratory Pattern Normal Blood Pressure 153/91 H 166/94 H Blood Pressure Mean 111 118 Pulse Ox 96 98 Oxygen Delivery Method Room Air Room Air 09/23/24 14:00 Temperature Temperature Source Pulse Rate 74 Respiratory Rate 16 Respiratory Effort Respiratory Pattern Blood Pressure 181/91 H Blood Pressure Mean 121 Pulse Ox 93 Oxygen Delivery Method Room Air MDM MDM MDM Narrative Medical decision making narrative: HISTORY OF PRESENT ILLNESS: Chief complaint: Fatigue 78-year-old female presents with feeling rundown. She notes this has been going on for 3 days. She states she had a fall 10 days ago and injured her right knee and right hip. States she is able to ambulate although difficulty secondary diffuse weakness. notes decreased p.o. intake and she has been feeling more fatigued the last 3 days. Denies any head trauma or loss of conscious during initial fall they both deny any new headaches, chest pain, shortness of breath, palpitations, cough, fever, chills. Denies any abdominal pain, vomiting, diarrhea, nausea. Denies difficulty urination, urgency, frequency. Denies paleness of skin. Denies any new falls. REVIEW OF SYSTEMS: Pertinent positives: Fatigue Pertinent negatives: As per HPI PHYSICAL EXAM: Nursing triage notes reviewed, Vital signs reviewed Constitutional: please see mdm HENT: MMM Eyes: Pupils equal round and reactive to light, Extraocular muscles intact Neck: No stridor, no JVD, full neck ROM Lungs: Clear to auscultation, No wheezing or rales. No increased work of breathing, no conversational dyspnea, no accessory muscle use, no nasal flaring. No respiratory distress noted Heart: Regular rate and rhythm, No murmurs, No rubs and No gallops, 2+ distal pulses (radial, femoral, posterior tibial) in all extremities Abdomen: Soft, there is no tenderness, rigidity, rebound or guarding, no obviousperitoneal signs, no palpable pulsatile abdominal masses, no auscultated abdominal bruit : No CVAT Extremities: No edema Neuro: No new focal neurological deficits, cranial nerves II through XII intact,5/5 strength in all present extremities. Intact sensation to light touch in all present extremities, 2+ reflexes bilateral patella tendons. Skin: No rash or lesions noted MEDICAL DECISION MAKING: Chief Complaint: please see HPI External records reviewed: Reviewed prior cardiovascular testing: Reviewed echocardiogram from 2017 which showed ejection fraction of 65%. No wall motion abnormalities were noted during the study. Factors affecting care: Atrial fibrillation no anticoagulation osteoporosis, hyperlipidemia, GERD hypothyroidism, Social determinants of health: none History obtained from others: none Consults: none [facility] Narrative: The patient was initially hemodynamically stable, afebrile and nontoxic- appearing. Exam without focal neurologic deficits. Noted healing ecchymosis tothe right knee. No abdominal TTP. Lungs were clear no murmurs or auscultated rhythm abnormalities. I considered the following differential diagnosis: Dehydration, UTI, hypothyroidism, arrhythmia, ACS, anemia, electrolyte disturbance, pneumonia, viral illness amongst others I obtained a broad lab and imaging to further determine if the patient was suffering from a life-threatening etiology. Initially treated the patient with a 500 cc bolus of normal saline given report of decreased p.o. intake ALL IMAGES (IF OBTAINED) HAVE BEEN PERSONALLY REVIEWED AND INTERPRETED BY MYSELF. EKG with normal sinus rhythm, left axis deviation, prolonged QTc interval with a485, no STEMI, no arrhythmia. I have personally reviewed the patient's chest x-ray. Chest x-ray is unremarkable for pulmonary edema, pneumothorax, pneumonia or focal cardiopulmonary abnormality. CBC without leukocytosis, severe anemia, no thrombocytopenia. High-sensitivity troponin is negative, no evidence of myocardial ischemia Lipase is wnl indicating no pancreatic inflammation. TSH elevated consistent hypothyroidism, T4 normal, T3 slightly low again consistent with hypothyroidism will encourage continuation of home levothyroxine COVID flu RSV negative BMP without significant electrolyte abnormalities, there is a anion gap of suggest endorgan hypoperfusion likely suggesting dehydration in the clinical context of decreased p.o. intake. LFTs with slight elevations in AST, ALT and alk phos has no right upper quadrantabdominal pain, no GI specific symptoms such as nausea or vomiting. She is not jaundiced. Will encourage outpatient follow-up Urinalysis without UTI The patient was able to ambulate here in the ED without significant difficulty with her home walker. Her labs images suggest no acute life or limb threateningetiology. Likely dehydration from decreased p.o. intake. Will prescribe Zofranencouraged increase oral fluid intake The patient and/or family, caregivers express understanding. The patient and/orfamily, caregivers agrees with the plan. Shared decision making: I will have a discussion with the patient and or visitors regarding risk/benefits of further testing or admission. They will be made aware of of the risk/benefits inherent in this decision they will be given the opportunity to voice understanding. Total critical care time today provided was at least 0 minutes. This excludes separately billable procedures. Critical care time (if documented) is secondary to the patient having high probability of clinically significant/life threatening deterioration in the patient's condition which required my urgent intervention. Impression: 1. Fatigue 2. Dehydration Dispo: Discharge This note was generated with Dragon dictation software. It may contain incorrectwords, spelling, and punctuation that were not noted in review of the chart prior to signing. Lab Data Labs: Laboratory Results - last 24 hr 09/23/24 09/23/24 10:44 12:54 WBC 9.4 RBC 4.18 L Hgb 12.8 Hct 38.3 MCV 91.6 MCH 30.6 MCHC 33.4 RDW Std Deviation 41.5 RDW Coeff of Serafin 12.4 Plt Count 442 MPV 9.4 Sodium 138 Potassium 3.7 Chloride 99 Carbon Dioxide 21.8 Anion Gap 17 H BUN 14 Creatinine 0.66 L Est GFR (MDRD) Non-Af 91 BUN/Creatinine Ratio 21.4 H Glucose 104 H Calcium 9.8 Total Bilirubin 0.75 AST 45 H ALT 63 H Alkaline Phosphatase 300 H Troponin T High Sens 10 Total Protein 7.9 Albumin 3.9 Globulin 4.0 Albumin/Globulin Ratio 1.0 Lipase 23 TSH 22.800 H Free T4 1.20 Free T3 pg/dL 1.5 L Urine Color Yellow Urine Clarity Clear Urine pH 6.0 Ur Specific [place] 1.015 Urine Protein 30 H Urine Glucose (UA) Normal Urine Ketones 15 H Urine Occult Blood 25 H Urine Nitrite Negative Urine Bilirubin Negative Urine Urobilinogen Normal Ur Leukocyte Esterase 25 H Urine RBC 0-5 SEEN Urine WBC 0-5 SEEN Ur Squamous Epith Cells 0-5 SEEN Calcium Oxalate Crystal 1+ Urine Bacteria 0 SEEN Urine Mucus 2+ Radiography Diagnostic Testing: Clinical Impression(s) from Imaging Studies Chest X-Ray 09/23/24 10:55 IMPRESSION: No Acute Findings. Reading Location: [facility] Discharge Plan Triage Chief Complaint: Weakness ED Provider: Arcenio Trammell Dx/Rx/DC Orders Clinical Impression: Acute dehydration, Hypothyroid Instructions: ED Dehydration (Adult) Prescriptions: New ondansetron 4 mg tablet,disintegrating 4 mg PO Q8H PRN PRN (Reason: Nausea) Qty: 10 0RF No Action fluoxetine 40 mg capsule [...] Vera Pompa MD [Primary Care Provider] - Activity Restrictions/Additional Instructions: Thank you for trusting us with your care today! Your presentation is likely secondary to dehydration and hypothyroidism. Please drink plenty of electrolyte containing beverages such as Body Armor, Pedialyte or Gatorade. Please follow with your primary care physician for further treatment of hypothyroidism. Please continue taking your already prescribed levothyroxine. This likely need to be adjusted Please take Tylenol (2 pills, 650 mg), ibuprofen (2 pills, 400 mg) every 6 hoursas needed for pain and fever control. Please return to the emergency department if your symptoms change or worsen. Please follow with your primary care physician for further outpatient evaluationand management. Print Language: [place] Islander Disposition Disposition: Home, Self Care What to do if you have Problems For any increased pain, shortness of breath, bleeding, nausea or vomiting, chestpain, or any unexpected problems, contact your Primary Care Provider. Call [facility] ([phone]) or report to the closest Emergency Room. Call 911 if necessary. 09/23/24 1439 <Electronically signed by Arcenio Trammell DO> Cosigner Signature (if applicable): CC: Dr. Vera Pompa MD ~ Signed [facility] Work Phone: 1(646) 527-183807-13-2025 Radiology Diagnostic study note [facility] Imaging Services [address] [place], [place] [address] Chest 1 View (Portable) MR#: [id number] Acct: [id number] Name: MICAELA COCHRAN Rep #: [id number] : 1945 F 78 From: Charleen Foster MD PCP: Dr. Vera Pompa MD Status: CO E ER Study:Chest 1 View (Portable) Date of Exam: 09/23/24 Exam# [id number] Ordering Dr: Toney Trammell DO PROCEDURE: CHEST 1 VIEW (PORTABLE) 09/23/2024 REASON FOR EXAM: FATIGUE TECHNIQUE: Frontal view of the chest. COMPARISON: Chest radiograph 05/11/2024. FINDINGS: Hardware: Prior cement augmentation of the lower thoracic spine. Heart: The heart size is normal. Lungs: No focal consolidation, pleural effusion or pneumothorax. Bones: Degenerative changes are identified within the thoracic spine. Chronic bilateral rib fracture deformities. RAD/Chest 1 View (Portable) IMPRESSION: No Acute Findings. Reading Location: [facility] CC: Dr. Vera Pompa MD; Dr. Arcenio Trammell DO ~ Inspector Cold Working: Signed [facility]07-09-2025 NoteHNO ID: [id number] Author: MANJINDER CARL MA Service: ? Author Type: Client Service Administrator Type: Progress Notes Filed: 09/19/2024 08:31 Note Text: POPULATION HEALTH NAVIGATION OUTREACH Action/FYI CM Pool Message: Type: ACM A follow-up appointment is not noted in patient's record. We are forwarding this patient to Network Navigation to schedule a PCP follow-up appointment following recent 09/13/2024 [facility] visit. ED Follow up [facility] 09/13/24 Fall HM care gaps: Last [...] patient: Unable to leave message Navigation Signature: Manjinder Carl MA September 19, 2024 8:27 [facility]07-08-2025 NoteHNO ID: [id number] Author: CYNTHIA VIGIL CPhT Service: ? Author Type: Seed Expert Type: Progress Notes Filed: 09/18/2024 15:23 Note Text: Patient is identified through a medication adherence outreach initiative based on pharmacy claims data from: [employer] Medication Adherence Category: Statins First Review Attribution Status: Correct attribution Medication(s) Atorvastatin 20 mg Medication Status per portal/Epic Reconcile Dispense: Not filled Medication Status per Profile Review: No issues per profile review Patient/provider appropriate for outreach? Yes Patient identified by name and Outreach to patient: Left Voicemail/message for return call What was primary intervention? Remind patient to lemon picker or fill yCnthia Vigil CPhT [facility] History of Present illness Narrative* Cynthia Vigil CPhT - 09/18/2024 3:22 PM EDT Patient is identified through a medication adherence outreach initiative based on pharmacy claims data from: [employer] Medication Adherence Category: Statins First Review Attribution Status: Correct attribution Medication(s) Atorvastatin 20 mg Medication Status per portal/Epic Reconcile Dispense: Not filled Medication Status per Profile Review: No issues per profile review Patient/provider appropriate for outreach? Yes Patient identified by name and Outreach to patient: Left Voicemail/message for return call What was primary intervention? Remind patient to lemon picker or fill Cynthia Vigil CPhT [facility] Team documented in [facility] encounterProvidence [facility]07-[facility]-2025 NotePatient Outreach (PHPOHE) MICAELA COCHRAN ([id number]) 1945 F Date Time Provider Department 09/18/24 VERA POPMA PHPOHE During your visit today, we recorded the following information about you: Cynthia Vigil CPhT 09/18/2024 3:23 PM Signed Patient is identified through a medication adherence outreach initiative based on pharmacy claims data from: [employer] Medication Adherence Category: Statins First Review Attribution Status: Correct attribution Medication(s) Atorvastatin 20 mg Medication Status per portal/Epic Reconcile Dispense: Not filled Medication Status per Profile Review: No issues per profile review Patient/provider appropriate for outreach? Yes Patient identified by name and Outreach to patient: Left Voicemail/message for return call What was primary intervention? Remind patient to lemon picker or fill Cynthia Vigil CPhT [facility] Pharm[facility] Team Allergies As of Date: [...] 06/21/2024 Encounter Status:Closed by CYNTHIA VIGIL on 09/18/24[facility] 09-17-2024 NoteHNO ID: [id number] Author: MANJINDER CARL MA Service: ? Author Type: Client Service Administrator Type: Progress Notes Filed: 09/17/2024 12:20 Note Text: POPULATION HEALTH NAVIGATION OUTREACH Action/FYI CM Pool Message: Type: ACM A follow-up appointment is not noted in patient's record. We are forwarding this patient to Network Navigation to schedule a PCP follow-up appointment following recent 09/13/2024 [facility] visit. ED Follow up [facility] 09/13/24 Fall care gaps: Last wellness [...] patient: Unable to leave message Navigation Signature: Manjinder Carl MA September 17, 2024 12:12 [facility]07-07-2025 History of Present illness Narrative* Manjinder Carl MA - 09/17/2024 12:12 PM EDT POPULATION HEALTH NAVIGATION OUTREACH Action/FYI CM Pool Message: Type: ACM A follow-up appointment is not noted in patient's record. We are forwarding this patient to [employer] to schedule a PCP follow-up appointment following recent 09/13/2024 [facility] visit. ED Follow up [facility] 09/13/24 Fall care gaps: Last wellness [...] patient: Unable to leave message Navigation Signature: Manjinder Carl MA September 17, 2024 12:12 PM * Flakito Roger RN - 09/17/2024 11:54 AM EDTSummary: Chart review per payor request ACM KRISTIN RN Patient identified by name and date of . Reason for review or outreach: Chart Review Kristin Priority Emergency Department Utilization REQUESTED ACTION/FYI: A follow-up appointment is not noted in patient's record. We are forwarding this patient to [employer] Navigation to schedule a PCP follow-up appointment following recent 09/13/2024 [facility] visit. Thank you! ED DIAGNOSES/REASON(S) FOR ED USE: 09/13/2024 [facility] ER for fall OTHER FINDINGS/SUMMARY: XR right hip/pelvis, XR right knee, labs Patient Attributed To: QAE Payer: Chilo ALEMAN Action Taken: Referrals/Routed: Population Health Navigation: Appointment. Router to [facility] [[phone]] Contact made with patient: No, Chart review only. Signature: Flakito Roger RN documented in this encounterProvidence Hospital07-07-2025 NoteHNO ID: [id number] Author: FLAKITO ROGER RN Service: ? Author Type: Registered Nurse Type: Progress Notes Filed: 09/17/2024 11:59 Note Text: Summary: Chart review per payor request AC KRISTIN RN Patient identified by name and date of . Reason for review or outreach: Chart Review Kristin Priority Emergency Department Utilization REQUESTED ACTION/FYI: A follow-up appointment is not noted in patient's record. We are forwarding this patient to Network Navigation to schedule a PCP follow-up appointment following recent 09/13/2024 [facility] visit. Thank you! ED DIAGNOSES/REASON(S) FOR ED USE: 09/13/2024 [facility] for fall OTHER FINDINGS/SUMMARY: XR right hip/pelvis, XR right knee, labs Patient Attributed To: QAE Payer: Chilo ALEMAN Action Taken: Referrals/Routed: Population Health Navigation: Appointment. Router to [facility] [[id number]] Contact made with patient: No, Chart review only. Signature: Flakito Roger RNOhio[facility]07-07-2025 NotePatient Outreach ([facility]) MICAELA COCHRAN ([id number]) 1945 F Date Time Provider Department 09/17/24 FLAKITO ROGERAbdirahman During your visit today, we recorded the following information about you: Flakito Roger RN 09/17/2024 11:59 AM Signed ACM KRISTIN RN Patient identified by name and date of . Reason for review or outreach: Chart Review Kristin Priority Emergency Department Utilization REQUESTED ACTION/FYI: A follow-up appointment is not noted in patient's record. We are forwarding this patient to [employer] to schedule a PCP follow-up appointment following recent 09/13/2024 [facility] visit. Thank you! ED DIAGNOSES/REASON(S) FOR ED USE: 09/13/2024 [facility] for fall OTHER FINDINGS/SUMMARY: XR right hip/pelvis, XR right knee, labs Patient Attributed To: SUKHIE Payer: Chilo ALEMAN Action Taken: Referrals/Routed: Population Health Navigation: Appointment. Router to [facility] [[id number]] Contact made with patient: No, Chart review only. Signature: KHADAR Ospina Lisa L, MA 09/17/2024 12:20 PM Signed POPULATION HEALTH NAVIGATION OUTREACH Action/FYI Delivery Club Message: Type: ACM A follow-up appointment is not noted in patient's record. We are forwarding this patient to [facility] to schedule a PCP follow-up appointment following recent 09/13/2024 [facility] visit. ED Follow up [facility] 09/13/24 Fall HM care gaps: Last wellness visit 09/03/24. Follow up due in February. [place] Outcome: 1st attempt. Patient has [employer] Assist which does not allow a voice mail option. Not MyChart active. Reason for Outreach Community Monitoring/Network Navigator Pools AND Phone Line: CM Pool Care Gaps due: Follow-up Appointment Patient Contacted: Unable or unnecessary to reach patient: Unable to leave message Navigation Signature: Manjinder Carl MA September 17, 2024 12:12 PM Manjinder Carl MA 09/19/2024 8:31 AM Signed POPULATION HEALTH NAVIGATION OUTREACH Action/FYI CM Pool Message: Type: ACM A follow-up appointment is not noted in patient's record. We are forwarding this patient to [facility] to schedule a PCP follow-up appointment following recent 09/13/2024 [facility] visit. 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 Lungs clearto auscultation. Heart regular rhythm rate about 90 [...] range of motion due to pain. Distal rightlower leg tib-fib, right ankle and right foot [...] obvious acute fracture. Small effusion. Reading Location: [facility] Hip/Pelvis X-Ray 09/13/24 16:00 IMPRESSION: Prior ORIF of the bilateral hips. No obvious acute fracture. Reading Location: [facility] Right hip and pelvis x-ray 3 [...] x-rays tonight showed no fracture of either thehip, pelvis or right knee. The swelling in the right knee may take several weeks to go away. If it is not improving follow-up. Print Language: [place]er Disposition Disposition: Home, Self Care What to do if you have Problems For any increased pain, shortness of breath, bleeding, nausea or vomiting, chestpain, or any unexpected problems, contact your Primary Care Provider. Call [facility] ([phone]) or report tothe closest Emergency Room. Call 911 if necessary. 09/13/24 4761 Cosigner Signature (if applicable): CC: Dr. Vera Pompa MD ~ Signed [facility]07-03-2025 Radiology Diagnostic study note [facility] Imaging Services [address] [place] [address] HIP, UNI W/ Pelvis 2-3 Views MR#: [id number] Acct: [id number] Name: MICAELA COCHRAN Rep #: [id number] : 1945 78 From: Charleen Foster MD PCP: Dr. Vera Pompa MD Status: [facility] ER Study:HIP, UNI W/ Pelvis 2-3 Views Date of Ex am: 09/13/24 Exam# [id number] Ordering Dr: Giovanni Weaver MD PROCEDURE: HIP, [...] hips. No obvious acute fracture. Reading Location: [facility] CC: Dr. Carroll Weaver MD; Dr. Vera Pompa MD ~ Inspector Cold Working: Signed [facility]07-03-2025 Radiology Diagnostic study note [facility] Imaging Services [address] [place] [id number] Knee 4 or More Views MR#: [id number] Acct: [id number] Name: MICAELA COCHRAN Rep #: [id number] : 1945 F 78 From: Charleen Foster MD PCP: Dr. Vera Pompa MD Status: [facility] ER Study:Knee 4 or More Views Date of Exam: 09/13/24 Exam# [id number] Ordering Dr: Giovanni Weaver MD PROCEDURE: KNEE [...] obvious acute fracture. Small effusion. Reading Location: [id number] CC: Dr. Carroll Weaver MD; Dr. Vera Pompa MD ~ Inspector Cold Working: Signed [facility]07-03-2025 Discharge summary Author Carroll Weaver [facility] Note Date/Time September 13, 2024 4:49p m [facility] Medical Records Department [address] [place] [address] Emergency Department Summary 09/13/24 MR#: [id number] Acct: [id number] Name: MICAELA COCHRAN Rep #:[id number] : 1945 78 From: Carroll Weaver MD [...] obvious acute fracture. Small effusion. Reading Location: [facility] Hip/Pelvis X-Ray 09/13/24 16:00 IMPRESSION: Prior ORIF of the bilateral hips. No obvious acute fracture. Reading Location: [facility] Right hip and pelvis x-ray 3 [...] it is not improving follow-up. Print Language: [place] Disposition Disposition: Home, Self Care What to do if you have Problems For any increased pain, shortness of breath, bleeding, nausea or vomiting, chestpain, or any unexpected problems, contact your Primary Care Provider. Call [facility] ([phone]) or report to the closest Emergency Room. Call 911 if necessary. 09/13/24 1097 <Electronically signed by Carroll Weaver MD> Cosigner Signature (if applicable): CC: Dr. Vera Pompa MD ~ Signed [facility] Work Phone: 1(291) 860-158606-23-2025 Instructions* Patient Instructions* Vera Pompa MD - [...] any questions or concerns. documented in this encounterProvidence Hospital06-23-2025 History of Present illness Narrative* Vera Pompa MD - 09/03/2024 12:00 PM EDT Images from the original note were not included. Micaela Cochran is a 78 year old female [...] (Family Medicine) Luis Enrique Caicedo APRN.BERNIE as Documentation Manager (Family Medicine) Medical/Family history review Reviewed and [...] 99% BMI 26.63 kg/m Vision Screening: Right: 20/40 Left: 20/ 40 Both: Assessment/Plan Medicare annual wellness visit, initial (Z00.00) - Counseled on healthy diet and regular exercise - Fall avoidance information provided - Personalized prevention plan provided - Discussed need for and benefit of weight loss. BMI 26.63 kg/(m^2) Chief Complaint Patient presents with: Medicare Wellness Exam Follow up HPI Micaela Cochran is a 78 year old female who presents here today for follow up BP and Nose bleed. Here with . Micaela Cochran is a 78-year-old female, with a history of falls, osteoporosis, and depression, presenting for a Medicare Annual Wellness Visit. Micaela reports difficulty with mobility and balance, stating, [...] her falls, stating, I don't know why. Micaela has a son who lives nearby and monitors her well-being, especially in the evenings. She has aramp built by her orthodox to facilitate easier access to her home. She has participated in physical therapy in the past but has not done so recently. She possesses weights and resistance bands at homebut admits to forgetting to use them regularly. Micaela was seen in the emergency room a [...] denies needing any refills at this time. Micaela tries to maintain a healthy diet, consuming [...] Procedure Laterality Date BREAST BIOPSY Left 12/16/2016 [facility]-Dr. 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 8. 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 Recording using [employer] software for draft documentation of the visit was discussed with the patient/authorized commercial pest control representative; all questions welcomed and answered. Patient/authorized commercial pest control representative agreed to proceed Medical Decision Making: Problems: Moderate: 2+ stable chronic illnesses Data: Unique test(s) ordered: 3+ Risk: Moderate: Drug management Medical Decision Making Level: 4 - Moderate Vera Pompa MD The documentation for this note was completed by Nettie Brandt MA acting as scribe for Vera Pompa MD. September 03, 2024 12:06 PM. Nettie Brandt MA documented in this encounterProvidence Hospital06-23-2025 NoteHNO ID: [id number] Author: VERA POMPA MD Service: ? Author Type: Physician Type: Progress Notes Filed: 09/03/2024 12:39 Note Text: Micaela Cochran is a 78 year old female [...] (Family Medicine) Luis Enrique Caicedo APRN.BERNIE as Documentation Manager (Family Medicine) Medical/Family history review Reviewed and [...] with: Medicare Wellness Exam Follow up HPI Micaela Cochran is a 78 year old female who presents here today for follow up BP and Nose bleed. Here with . Micaela Cochran is a 78-year-old female, with a history of falls, osteoporosis, and depression, presenting for a Medicare Annual Wellness Visit. Micaela reports difficulty with mobility and balance, stating, [...] her falls, stating, I don't know why. Micaela has a son who lives nearby and monitors her well-being, especially in the evenings. She has a ramp built by her orthodox to facilitate easier access to her home. She has participated in physical therapy in the past but has not done so recently. She possesses weights and resistance bands at home but admits to forgetting to use them regularly. Micaela was seen in the emergency room a [...] denies needing any refills at this time. Micaela tries to maintain a healthy diet, consuming [...] Procedure Laterality Date BREAST BIOPSY Left 12/16/2016 [facility]-Dr. Sandhu DELIVERY ONLY C-sect (more content not included)...[facility]06-17-[facility] Telephone encounter Note* Telephone Encounter - Luis Enrique Caicedo APRN.CNP - 08/28/2024 9:47 AM EDT The following approved medication requests have been transmitted electronically. Requested Prescriptions Pending Prescriptions Disp Refills omeprazole (PRILOSEC) 20 mg capsule 90 capsule 3 Sig: Take 1 capsule by mouth daily before breakfast. 1/2 hr before meal. Luis Enrique Caicedo APRN.CNP [facility]06-17-[facility] Miscellaneous Notes* Telephone Encounter - Luis Enrique [...] 28, 2024 9:22 AM documented in this encounterProvidence Hospital06-17-2025 Telephone encounter Note * Telephone Encounter - [...] Joy RN August 28, 2024 9:22 AM [facility]06-12-2025 Telephone encounter Note* Telephone Encounter - Vera Pompa MD - 08/23/2024 8:16 AM EDT OK to refill as ordered Vera Pompa MD [facility]06-12-2025 Miscellaneous Notes* Telephone Encounter - Vera Pompa [...] Last filled on 01/02/2024 Please send to [facility] mail order for 90 day rx Patient has been identified by name and birthdate. Duration of symptoms: N/A Person calling: self Call patient at: at home [phone] (home) [phone] (cell) Was an appointment scheduled: No Kim Das documented in this encounterProvidence Hospital06-11-2025 Telephone encounter Note * Telephone Encounter - Celso Gutierres RN - 08/22/2024 11:16 AM EDT Next OV with Dr. Pompa on 09/03/24. Last visit with neurosurgery was 06/21/24. PT was recommended. [facility]06-11-[facility] Telephone encounter Note* Telephone Encounter - Kim Golden - 08/22/2024 9:13 AM EDT Spouse, Berny is calling Vera Pompa MD today to request medication not on current med list: cyclobenzaprine (FLEXERIL) 5 mg tablet taking one tablet 3 times daily as needed Last filled on 01/02/2024 Please send to [facility] mail order for 90 day rx Patient has been identified by name and birthdate. Duration of symptoms: N/A Person calling: self Call patient at: at home [phone] (home) [phone] (cell) Was an appointment scheduled: Juliette Das [facility]06-10-2025 Discharge summary [facility] Medical Records Department [address] [place] [address] Emergency Department Summary 08/21/24 MR#: [id number] Acct: [id number] Name: MICAELA COCHRAN Rep #:[id number] : 1945 78 From: Graham Lozano MD [...] In light of this patient was discharged tofr[facility]lin [facility] with appropriate home-going instructions. Discharge Plan Triage [...] is needed. Is needed rechecked. Print Language: [place] Islander Disposition Disposition: Home, Self Care What to do if you have Problems For any increased pain, shortness of breath, bleeding, nausea or vomiting, chestpain, or any unexpected problems, contact your Primary Care Provider. Call [facility] ([phone]) or report tothe closest Emergency Room. Call 911 if necessary. 08/21/24 0508 Cosigner Signature (if applicable): CC: Dr. Vera Pompa MD ~ Signed [facility]06-10-2025 Discharge summary Author Graham Lozano [facility] Note Date/Time August 21, 2024 5:45 pm [facility] Medical Records Department [address] [place] [address] Emergency Department Summary 08/21/24 MR#: [id number] Acct: [id number] Name: MICAELA COCHRAN Rep #:[id number] : 1945 78 From: Graham Lozano MD [...] In light of this [facility] appropriate [facility]-going instructions. Discharge Plan Triage [...] is needed. Is needed rechecked. Print Language: [place] Disposition Disposition: Home, Self Care What to do if you have Problems For any increased pain, shortness of breath, bleeding, nausea or vomiting, chestpain, or any unexpected problems, contact your Primary Care Provider. Call [facility] ([phone]) or report to the closest Emergency Room. Call 911 if necessary. 08/21/241744 <Electronically signed by Graham Lozano MD> Cosigner Signature (if applicable): CC: Dr. Vera Pompa MD ~ Signed [facility] Work Phone: 1(574) 433-474406-10-2025 Hospital Discharge instructions Additional Instructions Need to make an appointment to see your doctor, Dr. Vera Pompa, for blood pressure recheck in 1 to 2 weeks. Your blood pressure was elevated in the emergency department at 159/88. Since you do not have a history of hypertension no further action/workup is needed. Is needed rechecked.[facility] Work Phone: 1(560) 119-730804-25-2025 NoteHNO ID: [id number] Author: ?, ?, ? Service: ? Author [...] orders: Medicare Annual Wellness Visit 09/03/2024 in [facility] with VERA POMPA - medicare wellness , hcc gaps Navigation Signature: Desire Onofre July 06, 2024 12:53 [facility]04-25-2025 NotePatient Outreach (NETNAV) MICAELA COCHRAN ([id number]) 1945 F Date Time Provider Department 07/06/24 VERA POMPA NETNAAlejandra During your visit today, we recorded the [...] orders: Medicare Annual Wellness Visit 09/03/2024 in [facility] with VERA POMPA - medicare wellness [...] Visit: Population Health Navigation Outreach [3910] Cmt: Chilo Rivas Prescriptions as of 07/06/2024 - acetaminophen (TYLENOL) [...] 06/21/2024 Encounter Status:Closed by DESIRE GUAN on 07/06/24[facility]04-22-2025 NoteHNO ID: [id number] Author: MANJINDER LEARY, RN Service: ? Author Type: Registered Nurse [...] for annual with PCP August 2024 . Manjinder Leary RN July 03, 2024 10:29 [facility]04-22-2025 History of Present illness Narrative* Manjinder Leary RN - 07/03/2024 10:29 AM EDT [...] for annual with PCP August 2024 . Manjinder Leary RN July 03, 2024 10:29 AM documented [facility]04-[facility]-2025 NotePatient Outreach (AMBCMG) MICAELA COCHRAN ([id number]) 1945 F Date Time Provider Department 07/03/24 MANJINDER LEARY During your visit today, we recorded the following information about you: Manjinder Leary RN 07/03/2024 10:31 AM Signed Value [...] for annual with PCP August 2024 . Manjinder Leary RN July 03, 2024 10:29 AM [...] Gait instability [R26.81] 06/21/2024 Encounter Status:Closed by MANJINDER LEARY on 07/03/24[facility]04-11-2025 Telephone encounter Note* Telephone Encounter - Nuzhat [...] any new or worsening symptoms arise. @JAYLENE@ JOSEP Sosa [facility]04-11-2025 Miscellaneous Notes* Telephone Encounter - Nuzhat Naik [...] worsening symptoms arise. @JAYLENE@ Nuzhat Naik APRN-BERNIE [facility] documented in this encounterProvidence Hospital04-10-2025 Instructions* Patient Instructions* Nuzhat Naik APRN.CNP - [...] if these symptoms occur. documented in this encounterProvidence Hospital04-10-2025 History of Present illness Narrative* Nuzhat Naik APRN.CNP - 06/21/2024 2:00 PM EDT SPINE SURGERY FOLLOW UP NOTE JOSEP Sosa Date of visit: June 21, 2024 Patient Name: Ms.Joyce Ricardo Cochran Date of : 1945 Current Age: [age] year old Sex: female MRN/E# [id number] Last Office Visit: 05/10/2024 Chief Complaint: Patient presents with: [facility] Neurosurgery Encounter: Dr. Benedict progress note from 05/06/24: NS plan of care - MRI reviewed; chronic T11, T12 fractures. No edema to suggest any acuity. Pain seems to be coming from rib fractures. Neuro intact on exam. TLSO brace for comfort. Upright films in brace. Will repeat XR in 6 weeks in the outpatient setting. Bisi Benedict MD HPI: Ms.Joyce Ricardo Cochran presented to [facility] on 05/05/2024 after a ground level fall. [...] repeat thoracic x-rays, prompting her visit today. Micaela is a 78-year-old female presenting for follow-up after a recent hospitalization. Micaela reports significant improvement in back pain, currently [...] Procedure Laterality Date BREAST BIOPSY Left 12/16/2016 [facility]-Dr. Sandhu DELIVERY ONLY , low transverse x [...] spine indicated old fractures per Dr. Benedict [facility] progress note; no surgical intervention required. -Repeat [...] - Provided order for physical therapy at [facility]; patient to initiate if desired. The patient consented to the use of ambient AI software for draft documentation of the visit consistent with [facility] s Notice of Privacy Practices. Nuzhat Naik APRN-BERNIE [facility] Gallegos This note was partially generated using ThinkHR voice recognition system, and there may be some incorrect words, spellings, and punctuation that were not noted in checking the note before saving. documented in this encounterProvidence Hospital04-10-2025 History of Present illness Narrative* Arash Arredondo RT(David) - 06/21/2024 2:00 PM EDT Radiology Service Progress Note PATIENT NAME: Micaela Cochran DATE OF SERVICE: June 21, 2024 [...] PATIENT PRESENTS WITH AN IMPLANTABLE OR ATTACHED POSTMASTER RELIEF: No RADIOLOGY DEPARTMENT: General X-ray: Exam(s) Completed: Spine X-Ray(s): Thoraco Lumbar Junction PERIPHERAL IV DATA: Not applicable SIGNED BY: BAY Sotomayor) June 21, 2024 1:33 PM documented in this encounterProvidence Hospital04-10-2025 NoteHNO ID: [id number] Author: ARASH ARREDONDO RT(David) Service: ? Author Type: Technologist Type: Progress Notes Filed: 06/21/2024 13:34 Note Text: Radiology Service Progress Note PATIENT NAME: Micaela Cochran DATE OF SERVICE: June 21, 2024 [...] PATIENT PRESENTS WITH AN IMPLANTABLE OR ATTACHED POSTMASTER RELIEF: No RADIOLOGY DEPARTMENT: General X-ray: Exam(s) Completed: Spine X-Ray(s): Thoraco Lumbar Junction PERIPHERAL IV DATA: Not applicable SIGNED BY: RT Bran(R) June 21, 2024 1:33 [facility]04-10-2025 NoteHNO ID: [id number] Author: NUZHAT NAIK APRN.CNP Service: ? Author Type: Nurse Practitioner Type: Progress Notes Filed: 06/21/2024 14:42 Note Text: SPINE SURGERY FOLLOW UP NOTE JOSEP Sosa Date of visit: June 21, 2024 Patient Name: Ms.Joyce Ricardo Cochran Date of : 1945 Current Age: [age] year old Sex: female MRN/E# [id number] Last Office Visit: 05/10/2024 Chief Complaint: Patient presents with: [facility] Patient [facility] Neurosurgery Encounter: Dr. Benedict progress note from 05/06/24: NS plan of care - MRI reviewed; chronic T11, T12 fractures. No edema to suggest any acuity. Pain seems to be coming from rib fractures. Neuro intact on exam. TLSO brace for comfort. Upright films in brace. Will repeat XR in 6 weeks in the outpatient setting. Bisi Benedict MD HPI: Ms.Joyce Ricardo Cochran presented to [facility] on 05/05/2024 after a ground level fall. [...] repeat thoracic x-rays, prompting her visit today. Micaela is a 78-year-old female presenting for follow-up after a recent hospitalization. Micaela reports significant improvement in back pain, currently [...] Procedure Laterality Date BREAST BIOPSY Left 12/16/2016 [facility]-Dr. Sandhu DELIVERY ONLY , low transverse x [...] Negative for cough, shor (more content not included)...[facility]03-21-2025 NoteHNO ID: [id number] Author: LUIS EDUARDO BANERJEE MA Service: ? Author Type: Client Service Administrator Type: Progress Notes Filed: 06/01/2024 13:56 Note [...] Eduardo Banerjee MA June 01, 2024 1:55 [facility]03-21-2025 History of Present illness Narrative* Luis [...] 01, 2024 1:55 PM documented in this encounterProvidence Hospital03-21-2025 NotePatient Outreach (NETNAV) MICAELA COCHRAN ([id number]) 1945 F Date Time Provider Department 06/01/24 LUIS EDUARDO BANERJEE During your visit today, we recorded the following information about you: Luis Eduardo Banerjee MA 06/01/2024 1:56 PM Signed POPULATION HEALTH NAVIGATION OUTREACH Action/ spoke to pt to schedule wellness, hcc [...] remember Date Reviewed: 05/06/2024 Reviewed by: Sheryl Solitario RN - Fully Assessed Reason for Visit: Population Health Navigation Outreach [3910] Cmt: gayegauri venegas richard Prescriptions as of 06/01/2024 - FLUoxetine (PROZAC) [...] Encounter Status:Closed by LUIS EDUARDO BANERJEE on 06/01/24[facility] 05-31-2024 Telephone encounter Note* Telephone Encounter - Vera Pompa MD - 05/31/2024 3:53 PM EDT OK to refill as ordered Vera Pompa MD [facility]03-20-2025 Miscellaneous Notes* Telephone Encounter - Vera Pompa [...] 40 mg capsule refilled and sent to [facility]. This PSS was unable to reorder the medication. Please advice. documented in this encounterProvidence Hospital03-20-2025 Telephone encounter Note * Telephone Encounter - [...] Fairchild MA May 31, 2024 3:24 PM [facility]03-20-2025 Telephone encounter Note* Telephone Encounter - Crystal Toussaint PSS - 05/31/2024 2:48 PM EDT Patient would like her FLUoxetime (PROZAC) 40 mg capsule refilled and sent to [facility]. This PSS was unable to reorder the medication. Please advice. [facility]03-14-2025 Telephone encounter Note* Telephone Encounter - Arash Nath RN - 05/25/2024 11:56 AM EDT Apryl Hoop Cutter with [facility] called and is notified of providers message and instructions.She voices understanding. Arash Nath RN [facility]03-14-2025 Miscellaneous Notes* Telephone Encounter - Arash Nath RN - 05/25/2024 11:56 AM EDT Arpyl Hoop Cutter with [facility] called and is notified of providers message and instructions.She voices understanding. Arash Nath RN * Telephone Encounter - Vera Pompa MD - 05/25/2024 11:50 AM EDT Yes, I will follow for SN/PT/OT/ST Vera Pompa MD * Telephone Encounter - Arash Nath RN - 05/25/2024 10:51 AM EDT Apryl Hoop Cutter with [facility] called and reports Pt is scheduled to be discharged from [facility] on 05/25/24 for bibasilar pneumonia, rib fracture, [...] Please call and advise. documented in this encounterProvidence Hospital03-14-2025 Telephone encounter Note * Telephone Encounter - Vera Pompa MD - 05/25/2024 11:50 AM EDT Yes, I will follow for SN/PT/OT/ST Vera Pompa MD [facility]03-14-2025 Telephone encounter Note* Telephone Encounter - Arash Nath RN - 05/25/2024 10:51 AM EDT Apryl Hoop Cutter with [facility] called and reports Pt is scheduled to be discharged from [facility] on 05/25/24 for bibasilar pneumonia, rib fracture, [...] out on Tuesday05/28/24. Please call and advise. [facility]03-13-2025 NoteHNO ID: [id number] Author: NETTIE BRANDT MA Service: ? Author Type: Client Service Administrator Type: Progress Notes Filed: 05/28/2024 09:55 Note Text: TRANSITION CARE MANAGEMENT (TCM) INITIAL CONTACT Client Service Administrator Outreach Provider Action/FYI: Office received discharge summary from [facility] on 05/22/24 but states in note she will be discharged home 05/25/24. Will need to call next week to do TCM. No appt scheduled with PCP at this time. Pt discharged home with [facility] PT/OT/ST. Has appt to follow up with Dr. Bisi Benedict on 06/18/24 at 10:00 AM with xrays prior. New O2 Initial contact with patient post discharge, spoke to patient. Patient identified by name and . TRANSITION CARE MANAGEMENT INITIAL OUTREACH DOCUMENTATION: No data to display SUMMARY: -Pt discharged from [facility] on 05/22/24. -Admitted for: 1) Debility 2) multiple rib fractures 3) Compression fracture of T11 vertebra 4) osteoporosis 5) HDL 6) Depression 7) Hypothyroidism 8) GERD 9) BPPV 10) Migraines Below copied from [email or web address]: Chief Complaint: Fall Narrative Narrative: 78-year-old female [...] is unsure of her last tetanus immunization. [facility] Narrative Medical decision making narrative: I reviewed [...] least observation. Patient was discussed with the [facility] Trauma transfer line. I discussed patient with [...] home with . Discharge home with 05/25/2024, [facility] PT/OT/ST, new O2. Oxygen: Patient requires 1LPM [...] are those medications? Methocar (more content not included)...[facility]03-13-2025 History of Present illness Narrative* Nettie Brandt MA - 05/24/2024 11:14 AM EDT Images from the original note were not included. TRANSITION CARE MANAGEMENT (TCM) INITIAL CONTACT Client Service Administrator Outreach Provider Action/FYI: Office received discharge summary from [facility] on 05/22/24 but states in note she will be discharged home 05/25/24. Will need to call next week to do TCM. No appt scheduled with PCP at this time. Pt discharged home with [facility] PT/OT/ST. Has appt to follow up with Dr. Bisi Benedict on 06/18/24 at 10:00 AM with xrays prior. New O2 Initial contact with patient post discharge, spoke to patient. Patient identified by name and . TRANSITION CARE MANAGEMENT INITIAL OUTREACH DOCUMENTATION: No data to display SUMMARY: -Pt discharged from [facility] on 05/22/24. -Admitted for: 1) Debility 2) multiple rib fractures 3) Compression fracture of T11 vertebra 4) osteoporosis 5) HDL 6) Depression 7) Hypothyroidism 8) GERD 9) BPPV 10) Migraines Below copied from [email or web address]: Chief Complaint: Fall Narrative Narrative: 78-year-old female [...] is unsure of her last tetanus immunization. [facility] Narrative Medical decision making narrative: I reviewed [...] least observation. Patient was discussed with the [facility] Trauma transfer line. I discussed patient with [...] home with . Discharge home with 05/25/2024, [facility] PT/OT/ST, new O2. Oxygen: Patient requires 1LPM [...] for provider to review documented in this encounterProvidence Hospital03-13-2025 NotePatient Outreach (FAMPWS) MICAELA COCHRAN ([id number]) 1945 F Date Time Provider Department 05/24/24 VERA POMPA During your visit today, we recorded the following information about you: Nettie Brandt MA 05/28/2024 9:55 AM Signed TRANSITION CARE MANAGEMENT (TCM) INITIAL CONTACT Client Service Administrator Outreach Provider Action/FYI: Office received discharge summary from [facility] on 05/22/24 but states in note she will be discharged home 05/25/24. Will need to call next week to do TCM. No appt scheduled with PCP at this time. Pt discharged home with [facility] PT/OT/ST. Has appt to follow up with Dr. Bisi Benedict on 06/18/24 at 10:00 AM with xrays prior. New O2 Initial contact with patient post discharge, spoke to patient. Patient identified by name and . TRANSITION CARE MANAGEMENT INITIAL OUTREACH DOCUMENTATION: No data to display SUMMARY: -Pt discharged from [facility] on 05/22/24. -Admitted for: 1) Debility 2) multiple rib fractures 3) Compression fracture of T11 vertebra 4) osteoporosis 5) HDL 6) Depression 7) Hypothyroidism 8) GERD 9) BPPV 10) Migraines Below copied from [email or web address]: Chief Complaint: Fall Narrative Narrative: 78-year-old female [...] least observation. Patient was discussed with the [facility] Trauma transfer line. I discussed patient with [...] home with . Discharge home with 05/25/2024, [facility] PT/OT/ST, new O2. Oxygen: Patient requires 1LPM [...] please reschedule accordingly. MEDICATIO (more content not included)...[facility]03-11-2025 Discharge summary Author Odilon Rodríguez [facility] Note Date/Time May 22, 2024 8:0 7pm [facility] Medical Records Department [address] [place] [address] Discharge Summary 05/22/241958 MR#: [id number] Acct: [id number] Name: MICAELA COCHRAN Rep #:[id number] : 1945 78 From: Odilon Rodríguez MD PCP: Dr. Vera Pompa MD Status:AD M IN Location: [facility] TCU09-1 Providers Date of Admission: 05/09/24 Primary Care Physician: Dr. Vera Pompa MD Consultations 05/22/24 19:14 Consult: Onc/Wound/assurance associate Routine Comment: Reason For Visit: RIB FRACTURES [...] Depression - Fluoxetine 40mg daily, stable chronic skilled nursing use, GDR not recommended. * Neuropathic pain [...] home with . Discharge home with 05/25/2024, [facility] PT/OT/ST, new O2. Oxygen: Patient requires 1LPM [...] and the community. Please Follow Up With: BISI BENEDICT MD When: As scheduled. Meaningful Use [...] Instructions / Restrictions: Discharge home with 05/25/2024, [facility] PT/OT/ST, new O2. Oxygen: Patient requires 1LPM [...] PRN (Reason: dizziness) Referrals / Follow Up: Bisi Benedict [Other] - 06/18/24 9:45 am (Xrays at [address] Benedict at 1000) Vera Pompa MD [Primary Care Provider] - (pt will make appt ) Disposition Disposition (needs filled in before D/C Order can be placed): Home Health Service 05/22/242006 <Electronically signed by Odilon Rodríguez MD> Cosigner Signature (if applicable): CC: Dr. Vrea Pompa MD; Dr. Odilon Rodríguez MD~ Signed [facility] Work Phone: 1(154) 169-387903-11-2025 Discharge summary [facility] Medical Records Department [address] [place] [address] Discharge Summary 05/22/241958 MR#: [id number] Acct: [id number] Name: MICAELA COCHRAN Rep #:[id number] : 1945 78 From: Odilon Rodríguez MD PCP: Dr. Vera Pompa MD Status:AD M IN [facility] Providers Date of Admission: 05/09/24 Primary Care Physician: Dr. 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 * Neuropathic pain [...] home with . Discharge home with 05/25/2024, [facility] PT/OT/ST, new O2. Oxygen: Patient requires 1LPM [...] and the community. Please Follow Up With: BISI BENEDICT MD When: As scheduled. Meaningful Use [...] Instructions / Restrictions: Discharge home with 05/25/2024, [facility] PT/OT/ST, new O2. Oxygen: Patient requires 1LPM [...] PRN (Reason: dizziness) Referrals / Follow Up: Bisi Benedict [Other] - 06/18/24 9:45 am (Xrays at [address] Benedict at 1000) Vera Pompa MD [Primary Care Provider] - (pt will make appt ) Disposition Disposition (needs filled in before D/C Order can be placed): Home Health Service 05/22/242006 Cosigner Signature (if applicable): CC: Dr. Vera Pompa MD; Dr. Odilon Rodríguez MD~ Signed [facility]03-11-2025 [facility] Medical Records Department [address] [place] [address] Discharge Summary 05/22/241958 MR#: [id number] Acct: [id number] Name: MICAELA COCHRAN Rep #: [id number] : 1945 78 From: Odilon Rodríguez MD PCP: Dr. Vera Pompa MD Status:ADM IN [facility] Providers Date of Admission: 05/09/24 Primary Care Physician: Dr. 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 * Neuropathic pain [...] home with . Discharge home with 05/25/2024, [facility] PT/OT/ST, new O2. Oxygen: Patient requires 1LPM [...] to auscultation bilaterally Cardio (more content not included)...[facility]02-28-2025 History and physical note Author Odilon Rodríguez [facility] Note Date/Time May 11, 2024 12:48pm [facility] Medical Records Department [address] [place] [address] History & Physical Exam 05/10/24 0744 MR#: [id number] Acct: [id number] Name: MICAELA COCHRAN Rep #:[id number] : 1945 78 From: Odilon Rodríguez MD PCP: Dr. Vera Pompa MD Status:AD M IN Location: [address] [facility] - General General Date of Admission: 05/09/24 Date of Service: 05/10/24 Chief Complaint: Here for rehabilitation. HPI Narrative MICAELA COCHRAN, is a 78 Female who presents with followin05/05/2024 Admit to [facility] for ground level fall, trauma. Traumatic injuries: [...] by physical therapy who recommended placement at custodial facility. 05/09/2024 Admit to TCU with debility, here for rehabilitation, strengthening, prior to discharge home with . 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 * Neuropathic pain [...] MD; Dr. Odilon Rodríguez MD ~* Signed [facility] Work Phone: 1(281) 531-562402-28-2025 History and physical note [facility] Medical Records Department [address] [place] [address] History & Physical Exam 05/10/24 0744 MR#: [id number] Acct: [id number] Name: MICAELA COCHRAN Rep #:[id number] : 1945 78 From: Odilon Rodríguez MD PCP: Dr. Vera Pompa MD Status:AD IN Location: [facility] - General General Date of Admission: 05/09/24 Date of Service: 05/10/24 Chief Complaint: Here for rehabilitation. HPI Narrative MICAELA COCHRAN, is a 78 Female who presents with followin05/05/2024 Admit to [facility] for ground level fall, trauma. Traumatic injuries: [...] by physical therapy who recommended placement at custodial facility. 05/09/2024 Admit to TCU with debility, here for rehabilitation, strengthening, prior to discharge home with . [facility] Medical History (Updated 05/10/24 @ 07:50 by [...] % (Auto) 57.1, Lymph % (Auto) 26.9, [place] % (Auto) 8.7, Eos % (Auto) 6.4 [...] Depression - Fluoxetine 40mg daily, stable chronic skilled nursing use, GDR not recommended. * Neuropathic pain [...] MD; Dr. Odilon Rodríguez MD ~* Signed [facility]02-28-2025 Radiology Diagnostic study note [facility] Imaging Services [address] [place] [address] [id number] Chest PA and Lateral MR#: [id number] Acct: [id number] Name: MICAELA COCHRAN Rep #: [id number] : 1945 F 78 From: Bucky Stephen MD PCP: Dr. Vera Pompa MD Status: AD M IN Study:Chest PA and Lateral Date of Exam: 05/11/24 Exam# [id number] Ordering Dr: Odilon Rodríguez MD PROCEDURE: CHEST [...] mid lung. Large hiatal hernia. Reading Location: [id number] CC: Dr. Vera Pompa MD; Dr. Odilon Rodríguez MD ~ Inspector Cold Working: Signed [facility] [facility] Progress note Author Mildred Salas [facility] Note Date/Time May 10, 2024 4:22pm [facility] Medical Records Department [address] [place] [address] Progress Note - Pharmacy 05/10/24 1509 MR#: [id number] Acct: [id number] Name: MICAELA COCHRAN Rep #:[id number] : 1945 78 From: Mildred Salas PCP: Dr. Vera Pompa MD Status:AD M IN Location: TCU TCU09- Documented by User: Mildred Salas 05/10/24 15:26 TCU RX Drug Regimen Review Subjective/Objective Subjective/Objective Subjective: TCU Admission. 78 YOF presented to ER after a fall, transferred to [facility]. Hospitalized for fall, multiple rib fractures, compression [...] Tablet PO 1,000 mg Q8 [facility] Administration Alendronate Sodium 70 mg 05/13/24 06:00 Alendronate Sodium 70 Mg Tablet PO Isbell@0600 [facility] Atorvastatin Calcium 20 mg 05/10/24 22:00 Atorvastatin Calcium 20 Mg Tablet PO QHS [facility] Calcium/Vitamin D 1 tablet 05/10/24 08:00 05/10/24 09:04 Calcium Carb/Vitamin D 1 Tablet Tablet PO 1 tablet DAILYCM [facility] Administration Cholecalciferol 50 mcg 05/10/24 10:00 05/10/24 09:04 Cholecalciferol (Vit D3) 25 Mcg Tablet (1,000 Units) PO 50 mcg DAILY [facility] Administration Enoxaparin Sodium 40 mg 05/11/24 06:00 Enoxaparin 40 Mg/0.4 Ml Syringe SC DAILY@0600 [facility] Fluoxetine HCl 40 mg 05/10/24 10:00 05/10/24 09:04 Fluoxetine Hcl 40 Mg Capsule PO 40 mg DAILY [facility] Administration Gabapentin 100 mg 05/09/24 22:37 05/10/24 14:22 Gabapentin 100 Mg Capsule PO 05/23/24 22:38 100 mg Q8 [facility] Administration Levothyroxine Sodium 100 mcg 05/10/24 06:00 05/10/24 06:09 Levothyroxine 100 Mcg Tablet PO 100 mcg DAILY@0600 [facility] Administration Lidocaine 1 patch 05/10/24 10:00 05/10/24 09:05 Lidocaine 5% Patch TOPICAL 1 patch DAILY [facility] Administration Protocol Meclizine HCl 25 mg 05/09/24 22:20 Meclizine Hcl 25 Mg Tablet PO TID PRN PRN dizziness Methocarbamol 500 mg 05/09/24 22:39 05/10/24 00:37 Methocarbamol 500 Mg Tablet PO 500 mg TID PRN PRN Administration muscle spasm Multivitamins/Minerals 1 tablet 05/10/24 08:00 05/10/24 09:04 Multivitamins,Ther W-[facility]inerals [facility] Administration Oxycodone HCl 5 mg 05/10/24 07:43 Oxycodone 5 Mg Tablet PO Q4H PRN PRN Pain Score 1-10 Pantoprazole Sodium 20 mg 05/10/24 10:00 05/10/24 09:03 Pantoprazole Sodium 20 Mg Tablet PO 20 mg DAILY [facility] Administration Polyethylene Glycol 17 gm 05/10/24 10:00 05/10/24 09:04 Polyethylene Glycol 3350 17 Gm Packet PO 17 gm DAILY [facility] Administration Senna/Docusate Sodium 2 tablet 05/10/24 10:00 05/10/24 09:03 Senna/Docusate Sodium 1 Tablet PO 2 tablet BID [facility] Administration Sodium Chloride 10 - 40 ml [...] PRN usage, muscle spasm and anticholinergicside effects (Gurvinder). 8. GERD: pantoprazole 20mg PO daily. Please continue to monitor for S/S of GERD and diarrhea (Gurvinder). 9. Rash: triamcinolone cream topical BID. Please continue to monitor for rash. 10. Nutrition: multivitamin with minerals. Please continue to monitor. 11. Hyperlipidemia: atorvastatin 20mg PO QHS. Please consider ordering a lipid panel as the last panel is from 2017. Thanks. Please continue to monitor for muscle [...] panel as the last panel is from 2017. Thanks. Date Date of Note: 05/10/24 Documented by User: Dr. Odilon Rodríguez MD 05/10/24 17:22 TCU RX Drug Regimen Review Provider Comments Provider responsibility Provider Comments to Recommendations by Pharmacy Agree 05/10/24 1526 <Electronically signed by Mildred Salas> Mildred Salas Cosigner Signature (if applicable): 05/10/24 1722 <Electronically signed by Odilon Rodríguez MD> CC: ~ Signed [facility] Work Phone: 1(154) 222-176902-27-2025 Progress note [facility] Medical Records Department [address] [place] [address] Progress Note - Pharmacy 05/10/24 1509 MR#: [id number] Acct: [id number] Name: MICAELA COCHRAN Rep #:[id number] : 1945 78 From: Mildred Salas PCP: Dr. Vera Pompa MD Status:AD M IN Location: [facility]11-12 Documented by User: Mildred Salas 05/10/24 15:26 TCU RX Drug Regimen Review Subjective/Objective Subjective/Objective Subjective: TCU Admission. 78 YOF presented to ER after a fall, transferred to [facility]. Hospitalized for fall, multiple rib fractures, compression [...] Tablet PO 1,000 mg Q8 [facility] Administration Alendronate Sodium 70 mg 05/13/24 06:00 Alendronate Sodium 70 Mg Tablet PO Isbell@0600 [facility] Atorvastatin Calcium 20 mg 05/10/24 22:00 Atorvastatin Calcium 20 Mg Tablet PO QHS [facility] Calcium/Vitamin D 1 tablet 05/10/24 08:00 05/10/24 09:04 Calcium Carb/Vitamin D 1 Tablet Tablet PO [facility] Administration Cholecalciferol 50 mcg 05/10/24 10:00 05/10/24 09:04 Cholecalciferol (Vit D3) 25 Mcg Tablet (1,000 Units) PO 50 mcg DAILY [facility] Administration Enoxaparin Sodium 40 mg 05/11/24 06:00 Enoxaparin 40 Mg/0.4 Ml Syringe SC DAILY@0600 [facility] Fluoxetine HCl 40 mg 05/10/24 10:00 05/10/24 09:04 Fluoxetine Hcl 40 Mg Capsule PO 40 mg DAILY [facility] Administration Gabapentin 100 mg 05/09/24 22:37 05/10/24 14:22 Gabapentin 100 Mg Capsule PO 05/23/24 22:38 100 mg Q8 [facility] Administration Levothyroxine Sodium 100 mcg 05/10/24 06:00 05/10/24 06:09 Levothyroxine 100 Mcg Tablet PO 100 mcg DAILY@0600 [facility] Administration Lidocaine 1 patch 05/10/24 10:00 05/10/24 09:05 Lidocaine 5% Patch TOPICAL 1 patch DAILY [facility] Administration Protocol Meclizine HCl 25 mg 05/09/24 [...] (if applicable): 05/10/24 1722 CC: ~ Signed [facility]02-27-2025 Radiology Diagnostic study note [facility] Imaging Services [address] [place], [place] [id number] Abdomen Single View MR#: [id number] Acct: [id number] Name: MICAELA COCHRAN Rep #: [id number] : 1945 F 78 From: Kaela Peralta MD PCP: Dr. Vera Pompa MD Status: AD M IN Study:Abdomen Single View Date of Exam: 05/10/24 Exam# [id number] Ordering Dr: Odilon Rodríguez MD PROCEDURE: ABDOMEN [...] Other nonacute findings detailed above. Reading Location: [place] [address] CC: Dr. Vera Pompa MD; Dr. Odilon Rodríguez MD ~ Inspector Cold Working: Signed [facility]02-27-2025 [facility] Medical Records Department [address] [place] [address] History Physical Exam 05/10/24 0744 MR#: [id number] Acct: [id number] Name: MICAELA COCHRAN Rep #: [id number] : 1945 78 From: Odilon Rodríguez MD PCP: Dr. Vera Pompa MD Status:ADM IN Location: [address] General Date of Admission: 05/09/24 Date of Service: 05/10/24 Chief Complaint: Here for rehabilitation. HPI Narrative MICAELA COCHRAN, is a 78 Female who presents with followin05/05/2024 Admit to [facility] for ground level fall, trauma. Traumatic injuries: [...] by physical therapy who recommended placement at custodial facility. 05/09/2024 Admit to TCU with debility, here for rehabilitation, strengthening, prior to discharge home with . [facility] Medical History (Updated 05/10/24 @ 07:50 by [...] Delivery Method Nasal Can (more content not included)...[facility]02-26-2025 Evaluation note* Diagnosis Onset Date Resolution Status Admit Date BPPV (benign paroxysmal positional vertigo) acute April 9:36pm Debility acute May 09, 2024 9:36pm Depression acute May 09, 2024 9:36pm GERD (gastroesophageal reflu x disease) acute May 09 9:36pm HLD (hyperlipidemia) acute 2024 9:36pm Hypothyroid acute April 9:36pm Migraines acute May 09, 2024 9:36pm Osteoporosis acute April 9:36pm Compression fracture of T11 vertebra inactive May 09 9:36pm Multiple rib fractures inactive Fe 2024 9:36pm [facility] Work Phone: 1(894) 626-699002-26-2025 Evaluation note* Diagnosis Onset Date Resolution Status Admit Date Debility acute May 09, 2024 9:36pm Depression acute May 09, 2024 9:36pm GERD (gastroesophageal reflu x disease) acute May 09 9:36pm HLD (hyperlipidemia) acute 2024 9:36pm Hypothyroid acute April 9:36pm Osteoporosis acute April 9:36pm BPPV (benign paroxysmal positional vertigo) resolved April 9:36pm Migraines resolved May 09, 2024 9:36pm Compression fracture of T11 vertebra inactive May 09 9:36pm Multiple rib fractures inactive pinon 2024 9:36pm [facility] Work Phone: 1(382) 230-232902-26-2025 NoteHNO ID: [id number] Author: ALEJANDRO SANDERS, RN Service: Care Management Author Type: Registered Nurse Type: Care Mgt Progress Note Filed: 05/09/2024 13:57 Note Text: CARE MANAGEMENT DISCHARGE NOTE SERVICE DATE: May 09, 2024 SERVICE TIME: 1:56 PM Admission Date: 05/05/2024 LOS: 3 days Discharge Arrangement Discharge Arrangement: [facility] Facility Services Arranged Provider Name: [facility] Care Unit Caregiver Assessment Caregiver is ready, willing and able to meet the patient's needs as recommended by the inter-professional team: Yes Name of Caregiver: [facility] [address] [place] [address] Transportation Arrangements Transportation Arrangements: Ambulance Transportation Agency and Phone #:: Other: See Comment ([facility] - [phone]) Date of Trip: 05/09/24 Time of Trip: 1800 Type of Service: BLS Non-emergency Is Patient Medicaid Pending?: No Was transportation financial coverage discussed with family?: Patient Deputy Juvenile Officer Location: [facility] Destination: [facility] [address] [place] [address] Financial Care Management Responsibility: None Handoff Communication: Handoff to: Other Caregiver Other Caregiver Name/Phone: Ester Mcneil - JAMEE Additional Information: Chart reviewed.Spoke to patient. Plan for DC today to [facility]. Patient agreeable. [facility] to transport via cot at 1800. Transport packet placed on front of chart. RN made aware. Current CM needs addressed. No new needs identified at this time. CM will continue to follow clinical course for further transitional, discharge or POC needs. Discharge Information Row Name ED to Hosp-Admission (Current) from 05/05/[address] [facility] Agency [facility] [address] [place] [address] SIGNATURE: Alejandro Sanders RN PATIENT NAME: Micaela Cochran DATE: May 09, 2024 TIME: 1:56 [facility]02-26-2025 NoteHNO ID: [id number] Author: DARIUS MCNEIL APRN.TECHNICAL STENOGRAPHER Service: General Surgery Author Type: Nurse Practitioner Type: Progress Notes Filed: 05/09/2024 11:24 Note Text: Documentation Query Please clarify the T11 Compression Fracture such as: T11 Compression fracture, due to trauma This document will become part of the patient's medical record.[facility]02-25-2025 NoteHNO ID: [id number] Author: ALEJANDRO SANDERS RN Service: Care Management Author Type: Registered Nurse Type: Care Mgt Progress Note Filed: 05/08/2024 13:07 Note Text: CARE MANAGEMENT PROGRESS NOTE SERVICE DATE: 05/08/2024 SERVICE TIME: 10:10 AM LOS: 2 days Post-Acute Discharge Planning Patient Goal(s): Independent living, General wellness, Be able to go home, Increase strength, Ambulate a little better, Better mobility, Less pain [place] of Choice Explained: Discharge Planning Participant(s): Patient/Family Comments: Anticipated # of Days Until Discharge: Transport at Discharge: Needs Prior to Discharge: Needs Prior to Discharge: To Be Determined, Discharge Prescriptions, OT/PT Evaluation, Discharge Transportation IMM Follow Up Copy Given: Yes Copy given to:: Patient Method: In Person (verbalized understanding) Post-Acute Discharge Plan: Chart reviewed, [facility] able to accept. Facility will start precert. Will need DC tx when ready. Forms on chart. CM will continue to follow clinical course for further transitional, discharge or POC needs. Update May 08, 2024 1:00 PM Precert is approved for [facility] through 05/14. Patient not medically ready as of yet. SIGNATURE: Alejandro Sanders RN PATIENT NAME: Micaela Cochran DATE: May 08, 2024 TIME: 10:10 [facility]02-25-2025 NoteHNO ID: [id number] Author: CAMERON ALVAREZ PA-C Service: General Surgery Author Type: Physician Warehouse Incentive Selector Type: Progress Notes Filed: 05/08/2024 09:54 Note [...] Therapy: Nasal Cannula IANDO: Date 05/07/24699 - 05/08/2459 05/08/24 07 - 05/09/24 0659 Shift [id number] 0970-9210 5803-1109 24 Hour Total [id number] 7108-5361 8531-1300 24 Hour Total INTAKE PO 240 680 [...] level fall on 05/05/24 (Trauma transfer from [facility]) Imaging performed: CT chest, XR left forearm, XR right wrist (05/05) CT HNTL-spine, CXR, MRI CTL-spine (05/06) XR T/L-spine (05/07) Traumatic Injuries: Nondisplaced posterior 10th AND 11th right rib fractures Nondisplaced lateral 4th-8th left rib fractures Severe compression fracture of T11 Operations/Procedures: None Care Plan: Bilateral (more content not included)...[facility]02-24-2025 NoteHNO ID: [id number] Author: ALEJANDRO SANDERS, RN Service: Care Management Author Type: Registered Nurse Type: Care Mgt Progress Note Filed: 05/07/2024 15:36 Note Text: CARE MANAGEMENT PROGRESS NOTE SERVICE DATE: 05/07/2024 SERVICE TIME: 3:36 PM LOS: 1 day Post-Acute Discharge Planning Patient Goal(s): Independent living, General wellness, Be able to go home, Increase strength, Ambulate a little better, Better mobility, Less pain [place] of [place] Explained: [place] of [place] Given: Yes Level of Care Discussed: [facility] Facility Discharge Planning Participant(s): Patient Patient/Family Comments: Anticipated # of Days Until Discharge: Transport at Discharge: Transportation Arrangements: To Be Determined Needs Prior to Discharge: Needs Prior to Discharge: To Be Determined, Discharge Prescriptions, OT/PT Evaluation, Discharge Transportation Post-Acute Discharge Plan: Chart reviewed, referral sent to [facility]. CM will continue to follow clinical course for further transitional, discharge or POC needs. SIGNATURE: Alejandro Sanders RN PATIENT NAME: Micaela Cochran DATE: May 07, 2024 TIME: 3:36 [facility]02-24-2025 NoteHNO ID: [id number] Author: CRISSY GODDARD APRN.TECHNICAL STENOGRAPHER Service: Neurosurgery Author Type: Nurse Practitioner Type: Plan of Care Filed: 05/07/2024 15:01 Note Text: Neurosurgery plan of care UR XR Thoraco-lumbar reviewed, stable. Rec 4 week follow up with repeat UR XR. We will sign off, please call with any questions or concerns. Discussed with Dr. Benedict. Crissy Goddard DIRECTOR OF STUDENT AFFAIRS.TECHNICAL STENOGRAPHER [phone] #[phone] NoteHNO ID: [id number] Author: CHAR PAUL, RN Service: Care Management Author Type: Registered Nurse Type: Care Mgt Initial Assessment Filed: 05/07/2024 13:55 Note Text: CARE MANAGEMENT: ASSESSMENT AND DISCHARGE PLAN SERVICE DATE: May 07, 2024 SERVICE TIME: 1:53 PM PCP: Vera Pompa MD Primary Contact: Extended Emergency Contact Information Primary Emergency Contact: Berny Cochran [address]: [address] [place] [id number] Mobile Relation: Spouse Admission Status: Inpatient Insurance Provider: [employer] MEDICARE PPO Discharge Planning requested by: Per Department Practice Potential Transition Plans To Be Determined, [facility] Facility/Intermediate Care Facility Advance Directives Current Advance Directive: Health Care Power of Soil Expert, Living Will In Chart: No Current Living [...] a little better, Better mobility, Less pain [place] of [place] Explained: [place] of Choice Given: Yes Level of Care Discussed: [facility] Facility Are you interested in bedside delivery [...] with spouse. Bedroom on main level. 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 +Walker and ramp. -Driving, dependent on spouse for transportation. Uses [facility] for short term scripts. States she has AD's, not on file. Room air at baseline, currently on 2L/NC. Patient is retired. PT/OT recs are pending. Brace in place. If needed, patient would like [facility] for SNF. Will follow for transitional care planning. SIGNATURE: Char Paul RN PATIENT NAME: Micaela Cochran DATE: May 07, 2024 TIME: 1:53 [facility]02-24-2025 NoteHNO ID: [id number] Author: DARIUS MCNEIL APRN.BERNIE Service: General Surgery Author Type: Nurse Practitioner Type: Progress Notes Filed: 05/07/2024 09:55 Note Text: Trauma Surgery Progress Note SERVICE DATE: 05/07/2024 Trauma Service Pager: For questions or concerns Mon-Fri 6a-5p please page [phone]. After 5pm and on Weekends and Holidays, please page [phone] if in ICU or [phone] if on RNF. SUBJECTIVE: No acute overnight [...] level fall on 05/05/24 (Trauma transfer from [facility]) Imaging performed: CT chest, XR left forearm, [...] Tylenol, Gabapentin, Li (more content not included)... [facility]02-23-2025 NoteHNO ID: [id number] Author: BISI BENEDICT MD Service: Neurosurgery Author Type: Physician Type: Plan of Care Filed: 05/06/2024 16:39 Note Text: NS plan of care - MRI reviewed; chronic T11, T12 fractures. No edema to suggest any acuity. Pain seems to be coming from rib fractures. Neuro intact on exam. TLSO brace for comfort. Upright films in brace. Will repeat XR in 6 weeks in the outpatient setting. Bisi Benedict [facility]02-14-2025 NoteHNO ID: [id number] Author: LUIS EDUARDO BANERJEE MA Service: ? Author Type: Client Service Administrator Type: Progress Notes Filed: 04/27/2024 13:47 Note [...] Patient scheduled/pended orders: Follow-up Appointment 05/17/2024 in [facility] with VERA POMPA - follow up, influenza, hcc gap closure, review due hm HCC related Navigation Signature: Luis Eduardo Banerjee MA April 27, 2024 1:44 [facility] History of Present illness Narrative* Luis Eduardo [...] Patient scheduled/pended orders: Follow-up Appointment 05/17/2024 in [facility] with VERA POMPA - follow up, influenza, hcc gap closure, review due HCC related Navigation Signature: Luis Eduardo Banerjee MA April 27, 2024 1:44 PM [facility] NotePatient Outreach (NETNAV) MICAELA COCHRAN ([id number]) 1945 F Date Time Provider Department 04/27/24 [...] Patient scheduled/pended orders: Follow-up Appointment 05/17/2024 in [facility] with VERA POMPA - follow up, influenza, hcc gap closure, review due HCC related Navigation Signature: Luis Eduardo Banerjee [...] Visit: Population Health Navigation Outreach [3910] Cmt: gayegauri soren richard Prescriptions as of 04/27/2024 - levothyroxine (SYNTHROID) [...] tablet by mouth as directed. D/C from [facility]; for HIP fracture - senna-docusate (SENNA-S) 8.6-50 [...] Encounter Status:Closed by LUIS EDUARDO BANERJEE on 04/27/24[facility] 12-05-2023 Telephone encounter Note* Telephone Encounter - Celso Day LPN - 12/05/2023 11:37 AM EDT .rx [facility]09-23-2024 Miscellaneous Notes* Telephone Encounter - Celso Day LPN - 12/05/2023 11:37 AM EDT .rx documented in this encounterProv[facility]08-27-2024 Telephone encounter Note * Telephone Encounter - Arash Nath RN - 11/08/2023 12:12 PM EDT Pts called and is notified of providers message. He voices understanding. Arash Nath RN [facility]08-27-2024 Miscellaneous Notes* Telephone Encounter - Arash Nath RN - 11/08/2023 12:12 PM EDT Pts called and is notified of providers message. He voices understanding. Arash Nath RN * Telephone Encounter - Vera Pompa MD - 11/08/2023 11:45 AM EDT OK to refill as ordered Vera Pompa MD * Telephone Encounter - Arash Nath RN - 11/08/2023 11:36 AM EDT [...] tablet by mouth one time a week. Arash Nath RN November 08, 2023 11:36 AM documented in this encounterProvidence Hospital08-27-2024 Telephone encounter Note * Telephone Encounter - Vera Pompa MD - 11/08/2023 11:45 AM EDT OK to refill as ordered Vera Pompa MD [facility]08-27-2024 Telephone encounter Note* Telephone Encounter - Arash Nath RN - 11/08/2023 11:36 AM EDT [...] tablet by mouth one time a week. Arash Nath RN November 08, 2023 11:36 AM [facility]08-26-2024 History of Present illness Narrative* Lisa Fairchild MA - 11/07/2023 12:28 PM EDT Images from the original note were not included. TRANSITION CARE MANAGEMENT (TCM) INITIAL CONTACT Client Service Administrator Outreach Provider Action/FYI: Called and spoke with pt who reports she overall feels the same, but no worse. Pt reports she feelstired, but this is an ongoing issue for her. Willing to setup appt requesting appt around 11:20 am next week, due to spouse having an appt this week in [place]. Initial contact with patient post discharge, spoke to patient. Patient identified by name and . TRANSITION CARE MANAGEMENT INITIAL OUTREACH DOCUMENTATION: No data to display SUMMARY: -Pt discharged from [facility] on 11/05/23. 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 Urine cultures came back positive for E. coli; patient was discharged on ciprofloxacin 2. Physical deconditioning ? Requested for PT OT eval and social staff worker to assist with discharge planning 3. Hypothyroidism [...] dizziness for last 2 days. HPI Narrative MICAELA COCHRAN, is a 78 F was brought [...] fever. Hospital records have been copied from [email or web address] Do you have a hospital follow up [...] recent hospitalization: Care Everywhere documented in this encounterProvidence Hospital08-09-2024 Telephone encounter Note * Telephone Encounter - Vera Pompa MD - 10/21/2023 11:36 AM EDT OK to refill as ordered Vera Pompa MD [facility]08-09-2024 Miscellaneous Notes* Telephone Encounter - Vera Pompa [...] 21, 2023 9:49 AM documented in this encounterProvidence Hospital08-09-2024 Telephone encounter Note * Telephone Encounter - [...] Piña LPN October 21, 2023 9:49 AM [facility]08-06-2024 Telephone encounter Note* Telephone Encounter - Apryl Gorman APRN.CNP - 10/18/2023 11:01 AM EDT The following approved medication requests have been transmitted electronically. Requested Prescriptions Pending Prescriptions Disp Refills omeprazole (PRILOSEC) 20 mg capsule 90 capsule 3 Sig: Take 1 capsule by mouth daily before breakfast. 1/2 hr before meal. Apryl Gorman APRN.CNP [facility]08-06-2024 Miscellaneous Notes* Telephone Encounter - Apryl Gorman APRN.CNP - 10/18/2023 11:01 AM EDT The following approved medication requests have been transmitted electronically. Requested Prescriptions Pending Prescriptions Disp Refills omeprazole (PRILOSEC) 20 mg capsule 90 capsule 3 Sig: Take 1 capsule by mouth daily before breakfast. 1/2 hr before meal. Apryl Gorman APRN.CNP * Telephone Encounter - Arash Nath RN - 10/18/2023 10:54 AM EDT [...] daily before breakfast. 1/2 hr before meal. Arash Nath RN October 18, 2023 10:54 AM documented in this encounterProvidence Hospital08-06-2024 Telephone encounter Note * Telephone Encounter - Arash Nath RN - 10/18/2023 10:54 AM EDT [...] daily before breakfast. 1/2 hr before meal. Arash Nath RN October 18, 2023 10:54 AM [facility]07-26-2024 Telephone encounter Note* Telephone Encounter - Luis Enrique Caicedo APRN.CNP - 10/07/2023 2:11 PM EDT The following approved medication requests have been transmitted electronically. Requested Prescriptions Pending Prescriptions Disp Refills atorvastatin (LIPITOR) 20 mg tablet 90 tablet 3 Sig: Take 1 tablet by mouth once daily. Luis Enrique Caicedo APRN.CNP [facility]07-26-2024 Miscellaneous Notes* Telephone Encounter - Luis Enrique [...] Thank you. Lise Gardiner. documented in this encounterProvidence Hospital07-26-2024 Telephone encounter Note * Telephone Encounter - [...] 12/30/2023 Please advise. Thank you. Lise [place]. [facility] Instructions* Patient Instructions* Apryl Gorman APRN.CNP - 09/01/2023 9:58 AM EDT Get repeat fasting labs in 4-6 weeks Continue to take all medication as prescribed Watch salt and processed foods in the diet May use compression socks and elevate the legs when needed Follow up pending lab results or sooner as needed. documented in this encounterProvidence Hospital06-[facility] History of Present illness Narrative* Apryl Gorman APRN.CNP - 09/01/2023 9:40 AM EDT This is a 77 year old female who presents today with: Patient presents with: Acute Visit: bilat ankle swelling HISTORY OF PRESENT ILLNESS: Micaela Cochran is a 77 year old female. [...] Procedure Laterality Date BREAST BIOPSY Left 12/16/2016 [facility] Sandhu DELIVERY ONLY , low transverse x [...] tablet by mouth as directed. D/C from [facility]; for HIP fracture (Patient not taking: Reported [...] APRN.BERNIE This note was partially generated using ThinkHR voice recognition system. Note was reviewed for accuracy. There may be minor misspellings or grammar miscues with Dragon voice recognition. documented in this encounterProv[facility]06-[facility]24 Telephone encounter Note * Telephone Encounter - Mildred Le LPN - 08/30/2023 8:33 AM EDT Patient given results and verbalized understanding of instructions given. Appt is on and pt is aware. Mildred Le LPN [facility]-18-[facility]24 Miscellaneous Notes* Telephone Encounter - Mildred Le [...] Bingham) Please advise. Telephone encounter CC Fernando POWELL documented in this encounterProvidence [facility]06-[facility]24 Telephone encounter Note * Telephone Encounter - Jeny Cristobal APRN.CNP - 08/30/2023 7:12 AM EDT CBC normal CMP normal TSH is outside of normal (history of same) Patient has appt this Tuesday with Fernando Bingham) Please advise. Telephone encounter CC Fernando POWELL [facility] Work Phone: 1(166) 786-922106-17-2024 History of Present illness Narrative* Kamlesh Sheppard MD - 08/29/2023 1:14 PM EDT [...] tablet by mouth as directed. D/C from [facility]; for HIP fracture (Patient not taking: Reported on 05/30/2023) ALLERGIES: ALLERGIES Allergen Reactions Acetaminophen-Codei* Unknown Biaxin [Clarithromy* Unknown Doesn't remember, was a long time ago Codeine unknown-long time ago Naproxen Rash Generalized, nonpruritic Relafen [Nabumetone] Unknown Doesn't remember VITALS: BP 140/84 Pulse 99 Temp 36.8 C (98.3 F) Resp 21 Wt 63 kg (138 lb 14.2 oz) SpO2 95% BMI27.81 kg/m Last 4 Encounter Wt Readings: Date: [...] COUNT AND DIFFERENTIAL - THYROID STIMULATING HORMONE Kamlesh Sheppard MD documented in this encounterProvidence Hospital06-04-2024 Telephone encounter Note * Telephone Encounter - Mandy Alexander MA - 08/16/2023 1:34 PM EDT Pharmacy request denied. Patient needs to contact office for refills. Mandy Alexander MA [facility]06-04-2024 Miscellaneous Notes* Telephone Encounter - Mandy Alexander MA - 08/16/2023 1:34 PM EDT Pharmacy request denied. Patient needs to contact office for refills. Mandy Alexander MA documented in this encounterProvidence Hospital06-04-2024 Telephone encounter Note * Telephone Encounter - Luis Enrique Caicedo APRN.CNP - 08/16/2023 12:57 PM EDT The following approved medication requests have been transmitted electronically. Requested Prescriptions Pending Prescriptions Disp Refills levothyroxine (SYNTHROID) 100 mcg tablet 90 tablet 0 Sig: Take 1 tablet by mouth once daily. Luis Enrique Caicedo APRN.CNP [facility]-04-2024 Miscellaneous Notes* Telephone Encounter - Luis Enrique [...] Thank you. Annetta Baig. documented in this encounterProvidence Hospital06-04-2024 Telephone encounter Note * Telephone Encounter - [...] found Please advise. Thank you. Annetta Baig. [facility]-29[facility]24 Telephone encounter Note* Telephone Encounter - Mary Lou Mark OCCA - 08/10/2023 3:22 PM EDT TC to patient who is informed of below. SHIREEN Hardin [facility]05-29-2024 Miscellaneous Notes* Telephone Encounter - Mary Lou [...] [facility] The following approved medication requests have been transmitted electronically. Requested Prescriptions Signed Prescriptions Disp Refills FLUoxetine (PROZAC) 40 mg capsule 5 capsule 0 Sig: Take 1 capsule by mouth once daily. Authorizing Provider: LUIS ENRIQUE CAICEDO APRN.CNP * Telephone Encounter - Janette [...] you. Janette Piña LPN. documented in this encounterProvidence Hospital05-29-2024 Telephone encounter Note * Telephone Encounter - Janette Piña LPN - 08/10/2023 2:04 PM EDT Attempted to reach spouse by phone without success. No voicemail set up. Janette Piña LPN [facility]-29-2024 Telephone encounter Note* Telephone Encounter - Luis Enrique Caicedo APRN.CNP - 08/10/2023 11:35 AM EDT Please let the patient know that [facility] The following approved medication requests have been transmitted electronically. Requested Prescriptions Signed Prescriptions Disp Refills FLUoxetine (PROZAC) 40 mg capsule 5 capsule 0 Sig: Take 1 capsule by mouth once daily. Authorizing Provider: LUIS ENRIQUE CAICEDO APRN.BERNIE [facility]-29-2024 Telephone encounter Note* Telephone Encounter - Janette [...] not found Thank you. Janette Piña LPN. [facility]03-26-2024 Miscellaneous Notes* Telephone Encounter - Luis Enrique [...] Thank you. Trish Quezada. documented in this encounterProvidence Hospital03-18-2024 History of Present illness Narrative* Apryl Gorman APRN.CNP - 05/30/2023 12:40 PM EDT This is a 77 year old female who presents today with: No chief complaint on file. HISTORY OF PRESENT ILLNESS: Micaela Cochran is a 77 year old female. No chief complaint on file. HOSPITAL/ER FOLLOW UP: Reason for visit: Dizziness Which facility: [facility] ER Date of visit: 05/25/2023 Diagnosis: Vertigo [...] Procedure Laterality Date BREAST BIOPSY Left 12/16/2016 [facility]-Dr. Sandhu DELIVERY ONLY , low transverse x [...] tablet by mouth as directed. D/C from [facility]; for HIP fracture senna-docusate (SENNA-S) 8.6-50 mg [...] APRN.CNP This note was partially generated using ThinkHR voice recognition system. Note was reviewed for accuracy. There may be minor misspellings or grammar miscues with ThinkHR voice recognition. documented in this encounterProvidence Hospital03-18-2024 Instructions* Patient Instructions* Apryl Gorman APRN.CNP - [...] with positional vertigo, slowly move into the [id number] position andwait for a minute. Next, slowly [...] period of time. ADDENDUM Particle repositioning procedure: Opqb-ey-mbfk instructions The particle repositioning procedure takes about [...] LB. Jonel ALEMAN. Peripheral Vestibular Disorders. In: [facility], Head and Neck Surgery, 3-Volume Set. Shafer; 2014. Jose Carlos Davila. Benign Paroxysmal Positional Vertigo (BPPV): History, Pathophysiology, Office Treatment and Future Directions. International Journal of Otolaryngology. 2011;2011:978088. Donna JS, Teressa CANDELARIO. Clinical practice. Benign paroxysmal positional vertigo. N Engl J Med. 2014 May 31;370(12):1138-47. Emre WILBURN, Maldonado MACK, Althea M, Kodak JF. The Head and Neck. In: Emre WILBURN, Maldonado MACK, Althea M, Kodak JF. eds. Hungin s Diagnostic Examination, 10e. [place], [place]: [facility]; 2015. Copyright 9050-9160 The [facility]. All rights reserved This information is provided by the [facility] and is not intended to replace the medical advice of your doctor or health care provider. Please consult your health care provider for advice about a specific medical condition. For additional health information, please contact the [facility] at the [facility] or toll-free extension [phone]. If you prefer, you may visit [email or web address] or [email or web address]. This document was last reviewed on: 2014 documented in this encounterProvidence Hospital03-13-2024 Discharge summary Author Edmundo Judd [facility] May 25, 2023 5:21pm Note Date/Time May 25, 2023 1:1 5pm [facility] Medical Records Department [address] [place] [address] Emergency Department Summary 05/25/23 MR#: [id number] Acct: [id number] Name: MICAELA COCHRAN Rep #:[id number] : 1945 77 From: Carroll Weaver MD PCP: Dr. Vera Pompa MD Status:RE ER Location: ED ADDENDUM by Dr. Edmundo [...] condition. She was diagnosed by neurologist at [facility] 5 to 10 years ago. But denies any new changes to her arms or legs. No worsening weakness or numbness. Prior similar symptoms: No Recent Illness/Hospitalization: No PFSH PFSH Medical History Anxiety and depression Chronic anemia [...] PO DAILY depression 09/07/22 [History Last Taken 09/10/22] levothyroxine 75 mcg tablet 75 mcg PO [...] all 4 extremities. 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 Dorsi plantarflexion intact. Fingertipto nose within [...] % (Auto) 57.4 Lymph % (Auto) 25.8 [place] % (Auto) 9.6 Eos % (Auto) 5.8 [...] Signed: Ha Stephen MD at 14:20 EDT Reading Location ID and State: [facility] / [place] , Service support , Rhythm Strip Rhythm Strip: Sinus Rhythm Rate: 88 Ectopy: None EKG Initial EKG: Attestation: I personally reviewed and interpreted this EKG as follows: Interpretation: Sinus Rhythm and No Acute Injury Pattern Comments: Normal sinus rhythm rate 88 no acute signs of [place], ischemia or dysrhythmia. Discharge Plan Triage Chief [...] your Primary Care Provider. Call [facility] ([phone]) or report to the closest Emergency Room. Call 911 if necessary. 05/25/23 1616 <Electronically signed by Carroll Weaver MD> Cosigner Signature (if applicable): CC: Dr. Vera Pompa MD ~ Signed [facility] Work Phone: 1(508) 787-790703-13-2024 History of Present illness Narrative* Kamlesh Sheppard MD - 05/25/2023 12:39 PM EDT [facility] Triage Note: [facility] with complaint of dizziness the last 2 days. She does not feelnear syncopal but feels spinning, especially when she turns her head. Denies injury, ear pain, or regular issues with vertigo (EMR shows PT referral for vertigo in 2017). She ambulates with a walker,no facial droop. She will go to the ER for further evaluation of vertigo. documented in this encounterProvidence Hospital01-25-2024 Miscellaneous Notes* Telephone Encounter - Vera Pompa [...] Thank you. Bekah Goff. documented in this encounterProvidence Hospital11-17-2023 Miscellaneous Notes* Telephone Encounter - Arash Nath RN - 01/28/2023 8:46 AM EST Pt called and is notified of providers results and instructions. Pt voices understanding. Arash Nath RN * Telephone Encounter - Luis Enrique Caicedo APRN.CNP - 01/28/2023 8:38 AM EST Please the patient know that her cologuard testing was normal. This screening is valid for three years. Luis Enrique Caicedo APRN.CNP documented in this encounterProvidence Hospital10-26-2023 Miscellaneous Notes* Telephone Encounter - Vera Pompa MD - 01/06/2023 4:58 PM EDT Already addressed in other note Vera Pompa MD documented in this encounterProvidence Hospital10-25-2023 Instructions* Patient Instructions* Apryl Gorman APRN.CNP - 01/05/2023 1:19 PM EDT Get labs completed Continue to take all medication as prescribed. Recommend considering another round of physical therapy if needed Cologuard stool tesitng will be mailed to your home. Flu vaccine given today, may get covid booster or RSV vaccine in the future. Follow up in 6 months. documented in this encounterProvidence Hospital10-25-2023 History of Present illness Narrative* Apryl Gorman APRN.CNP - 01/05/2023 1:00 PM EDT This is a 77 year old female who presents today with: Patient presents with: Follow Up: 3 month follow up HISTORY OF PRESENT ILLNESS: Micaela Cochran is a 77 year old female. [...] Procedure Laterality Date BREAST BIOPSY Left 12/16/2016 [facility]-Dr. Sandhu DELIVERY ONLY , low transverse x [...] tablet by mouth as directed. D/C from [facility]; for HIP fracture senna-docusate (SENNA-S) 8.6-50 mg [...] discussed and patient voices understanding. Apryl Gorman APRN.TECHNICAL STENOGRAPHER This note was partially generated using ThinkHR voice recognition system. Note was reviewed for accuracy. There may be minor misspellings or grammar miscues with [employer] voice recognition. documented in this encounterProvidence Hospital10-16-2023 Miscellaneous Notes* Telephone Encounter - Apryl Gorman APRN.CNP - 12/27/2022 3:13 PM EDT The following approved medication requests have been transmitted electronically. Requested Prescriptions Signed Prescriptions Disp Refills omeprazole (PRILOSEC) 20 mg capsule 90 capsule 3 Sig: Take 1 capsule by mouth daily before breakfast. 1/2 hr before meal. Authorizing Provider: APRYL GORMAN APRN.CNP documented in this encounterProvidence Hospital09-28-2023 Miscellaneous Notes* Telephone Encounter - Vera Pompa [...] and advise. Ayaz Mayer documented in this encounterProvidence Hospital09-20-2023 Discharge summary Author Chhaya Martinez [facility] December 01, 2022 2:17pm Note Date/Time December 01, 2022 2:17pm [facility] Physical Therapy [facility] [address] [place] [address] / REHABILITATION SERVICES DISCHARGE SUMMARY MR#: [id number] Acct: [id number] Name: MICAELA COCHRAN Rep #: [id number] : 1945 77 From: Chhaya Huggins Referring Dr.: Dr. Odilon Rodríguez MD Status: REG RCR Insurance: [employer] MEDICARE PPO SELF PAY INSURANCE Discharge Summary D/C summary: It has been my pleasure to treat MICAELA COCHRAN referred by Dr. Odilon Rodríguez MD,with [...] not maintain Gait: slightly antalgic- rollator- good sallie- safe- >300 feet HR/TR: able with UE [...] please feel free to call me at [phone]. Thank you for the referral of thispatient. Sincerely, Chhaya Martinez, [place] Balance/Gait/Functional tests Balance/Special Test Scores Lower Extremity Functional Score: 28 30 Second Chair Rise Test Seconds: 7 Improvement % Improvement: 100 <Electronically signed by Chhaya Martinez DPT> 12/01/22 8552 CC: Dr. Vera Pompa MD; Dr. Odilon Rodríguez MD ~ ELR Signed [facility] Work Phone: 1(699) 928-754208-28-2023 History of Present illness Narrative* Mel Ye MA - 11/08/2022 12:21 PM EDT POPULATION HEALTH NAVIGATION OUTREACH Action/FYI Due: colonoscopy, mammogram (active order) [facility] GAPS: G83.9 - Paralysis, unspecified - [id number] Last Billed 06/22/2021
F33.9 - Major depressive disorder, recurrent episode (HCC) - [id number] Last Billed 12/24/2021
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 N/A Reason for Outreach Care Gap or Scheduling/Wellness visits Payer: Payor: [id number] MEDICARE / Plan: [employer] MEDICARE PPO / [...] 08, 2022 12:21 PM documented in this encounterProvidence Hospital07-06-2023 History of Present illness Narrative* Madyson Perry MA - 09/16/2022 10:21 AM EDT POPULATION HEALTH NAVIGATION OUTREACH Action/ Patient is on HCC list for below gaps and needs appt to address : G83.9 - Paralysis, unspecified - [id number] Last Billed 06/22/2021
F33.9 - Major depressivedisorder, recurrent episode (HCC) - [id number] Last Billed 12/24/2021
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
Care gaps/appts to address: Well exam COLORECTAL CANCER SCREENING MAMMOGRAM Outcomes: Spoke to pt- she is currently admitted to [facility] for a fall- will call upon discharge to [facility] follow up Patient Identified by Name and : YES, via phone Outreach Outcome/Action Spoke to patient / parent / legal guardian: Patient will return the call or ask for return call Did you use a PCP flex slot to schedule this appointment? N/A Reason for Outreach HCC or suspected condition Payer: Payor: [id number] MEDICARE / Plan: [employer] MEDICARE PPO / [...] 16, 2022 10:22 AM documented in this encounterProvidence Hospital06-30-2023 Discharge summary Author Luis Ashley [facility] September 10, 2022 10:16am Note Date/Time September 10, 2022 10:1 5am [facility] Medical Records Department [address] [place] [address] Discharge Summary 09/10/22 1015 MR#: [id number] Acct: [id number] Name: MICAELA COCHRAN Rep #:[id number] : 1945 76 From: Luis Ashley DO PCP: Dr. Vera Pompa MD Status:AD M IN [facility] Prov[facility] Date of Admission: 09/07/22 Primary Care [...] in before D/C Order can be placed): [facility] Facility Charges/Coding Visit Charges Inpatient E&M: 29825 Disch Hosp >30min 09/10/22 1016 <Electronically signed by Luis Ashley DO> Cosigner Signature (if applicable): CC: Dr. Luis Ashley DO; Dr. Vera Pompa MD~ Signed [facility] Work Phone: 1(494) 277-191706-30-2023 Discharge summary Author Luis [facility] September 10, 2022 10:14am Note Date/Time September 10, 2022 10:1 0am [facility] Medical Records Department [address] [place] [address] [facility] MR#: [id number] Acct: [id number] Name: MICAELA COCHRAN Rep #:[id number] : 1945 76 From: Luis Ashley DO PCP: Dr. Vera Pompa MD Status:AD M IN Certification of patient admission REQUIRED AT TIME OF ADMISSION. I CERTIFY THAT POST-HOSPITAL F SERVICES ARE REQUIRED TO BE GIVEN ON AN IN-PATIENT BASIS BECAUSE OF THE ABOVE NAMED PATIENT'S NEED FOR GROUP HOME CARE ON A CONTINUING BASIS FOR THE CONDITION(S) FOR WHICH HE/SHE WAS RECEIVINGIN-PATIENT HOSPITAL SERVICES PRIOR TO HIS/HER TRANSFER TO [facility]. 09/10/22 1014<Electronically signed by Luis Ashley DO> [...] in before D/C Order can be placed): [facility] Facility (1) Hip fracture Qualifiers: Encounter type: initial encounter Fracture type: closed Laterality: left Qualified Code(s): S72.002A - Fracture of unspecified part of neck of left femur, initial encounter for closed fracture 09/10/22 1014 <Electronically signed by Luis Ashley DO> Cosigner Signature (if applicable): CC: Dr. Yessenia Andres MD; Dr. Vera Pompa MD; Dr. Saúl Manriquez DO ~ [facility] Work Phone: 1(968) 600-979306-30-2023 Progress note Author Luis Ashley [facility] September 10, 2022 10:08am Note Date/Time September 10, 2022 8:36 am [facility] Medical Records Department [address] [place] [address] Progress Note - Hospitalist 09/10/22 0834 MR#: [id number] Acct: [id number] Name: MICAELA COCHRAN Rep #:[id number] : 1945 76 From: Luis Ashley DO PCP: Dr. Vera Pompa MD Status:AD M IN Location: [address] Reason for Visit Reason for Visit: Diagnoses [...] 09/09/22 09/10/22 23:59 23:59 23:59 Intake Total 2031.5 / 2081.5 1890.00 / 2090.00 400 / 400 Output Total 1874 550 / 750 375 / 375 Balance 157.5 / 107.5 1340.00 / 1340.00 25 / 25 Lab / Micro Data 09/10/22 05:45 [...] Cosigner Signature (if applicable): CC: ~ Signed [facility] Work Phone: 1(199) 332-800206-30-2023 Progress note Author Saúl Manriquez [facility] September 10, 2022 7:56am Note Date/Time September 10, 2022 7:57 am [facility] Medical Records Department [address] [place] [address] Progress Note - Orthopedic 09/10/22 0754 MR#: [id number] Acct: [id number] Name: MICAELA COCHRAN Rep #:[id number] : 1945 76 From: Saúl isaacs DO PCP: Dr. Vera Pompa MD Status:AD M IN Location: [place] RV288-9 Subjective Subjective Patient seen and examined. She [...] 09/09/22 09/10/22 23:59 23:59 23:59 Intake Total 2.5 / 2082.5 1890.00 / 2090.00 400 / 400 Output Total 1874 550 / 750 375 / 375 Balance 157.5 / 107.5 1340.00 / 1340.00 25 / 25 Lab / Micro Data 09/10/22 05:45 [...] - Case management - D/C planning 09/10/22 2433 <Electronically signed by Saúl Manriquez DO> Cosigner Signature (if applicable): CC: ~ Signed [facility] Work Phone: 1(959) 214-217806-29-2023 Progress note Author Saúl Manriquez [facility] September 09, 2022 4:56pm Note Date/Time September 09, 2022 4:54 pm [facility] Medical Records Department [address] [place] [address] Progress Note - Orthopedic 09/09/22 1653 MR#: [id number] Acct: [id number] Name: MICAELA COCHRAN Rep #:[id number] : 1945 76 From: Saúl isaacs DO PCP: Dr. Vera Pompa MD Status:AD M IN Location: [place] UC714-8 Subjective Subjective Late entry note: Patient was [...] 78.0 H, Lymph % (Auto) 10.2 L, [place] % (Auto) 10.9 H, Eos % (Auto) [...] Cosigner Signature (if applicable): CC: ~ Signed [facility] Work Phone: 1(925) 741-883306-29-2023 Progress note Author Luis Ashley [facility] September 09, 2022 11:12am Note Date/Time September 09, 2022 8:47 am [facility] Medical Records Department [address] [facility] [place] [address] Progress Note - Hospitalist 09/09/2243 MR#: [id number] Acct: [id number] Name: MICAELA COCHRAN Rep #:[id number] : 1945 76 From: Luis Ashley DO PCP: Dr. Vera Pompa MD Status:AD M IN [facility] Reason for Visit Reason for Visit: Diagnoses [...] 78.0 H, Lymph % (Auto) 10.2 L, [place] % (Auto) 10.9 H, Eos % (Auto) [...] status: Full Charges/Coding Visit Charges Inpatient E&M: 22036 Subs Hosp L2 09/09/22 1112 <Electronically signed by Luis Ashley DO> Cosigner Signature (if applicable): CC: ~ Signed [facility] Work Phone: 1(544) 939-400006-28-2023 Procedure [facility] 09-08-2022 Progress note Author Luis Ashley [facility] September 08, 2022 10:51am Note Date/Time September 08, 2022 7:23 am [facility] Medical Records Department [facility] [place] [address] Progress Note - Hospitalist 09/08/22 0718 MR#: [id number] Acct: [id number] Name: MICAELA COCHRAN Rep #:[id number] : 1945 76 From: Luis Ashley DO PCP: Dr. Vera Pompa MD Status:AD M IN Location: [place] XX506-8 Reason for Visit Reason for Visit: Diagnoses [...] 70.1 H, Lymph % (Auto) 17.5 L, [place] % (Auto) 7.7, Eos % (Auto) 3.8, [...] Sl. Cloudy, Urine pH 6.0, Ur Specific [place] 1.020, Urine Protein 15 H, Urine Glucose [...] status: Full Charges/Coding Visit Charges Inpatient E&M: 50305 Subs Hosp L2 09/08/22 1051 <Electronically signed by Luis Ashley DO> Cosigner Signature (if applicable): CC: ~ Signed [facility] Work Phone: 1([phone]) 219-104006-27-2023 Consult note Author Saúl Manriquez [facility] September 07, 2022 8:32pm Note Date/Time September 07, 2022 8:32 pm [facility] Medical Records Department [facility] [place] [address] Consultation - Orthopedics 09/07/222028 MR#: [id number] Acct: [id number] Name: MICAELA COCHRAN Rep #:[id number] : 1945 76 From: Saúl isaacs DO PCP: Dr. Vera Pompa MD Status:AD M IN Location: [place] RG365-8 HPI Consult Data Date of Consult: 09/07/22 HPI Narrative Reason for Consultation: Left hip fracture HPI Narrative: MICAELA COCHRAN, is a 76 F who presents after mechanical fall from standing height onto the left side earlier today. [facility] revealed a comminuted intertrochanteric [...] any antecedent left hip or groin pain. [facility] Medical History (Updated 09/07/22 @ 19:13 by [...] 70.1 H, Lymph % (Auto) 17.5 L, [place] % (Auto) 7.7, Eos % (Auto) 3.8, [...] Sl. Cloudy, Urine pH 6.0, Ur Specific [place] 1.020, Urine Protein 15 H, Urine Glucose [...] applicable): CC: Dr. Vera Pompa MD~ Signed [facility] Work Phone: 1(645) 636-853006-27-2023 History and physical note Author Yessenia Andres [facility] September 07, 2022 8:17pm Note Date/Time September 07, 2022 7:20 pm [facility] Medical Records Department [address] [place] [address] H&P Exam - Hospitalist 09/07/221912 MR#: [id number] Acct: [id number] Name: MICAELA COCHRAN Rep #:[id number] : 1945 76 From: Yessenia Andres MD PCP: Dr. Vera Pompa MD Status:RE G ER Location: ED HPI - General General Date of Service: 09/07/22 Chief Complaint: Fall, L hip pain. HPI Narrative The patient is a 76 y/o F w/ PMHx: Chronic normocytic anemia, HLD, GERD, Anxietyand Depression, Hypothyroidism, PAF remotely not on any chronic anticoagulant therapy, Fibromylagia who presents to the [facility] ED on 09/07/22 with history unfortunately chemical [...] IV x1.ED discussed case with Dr. Manriquez. [facility] Medical History (Updated 09/07/22 @ 19:13 by [...] 70.1 H, Lymph % (Auto) 17.5 L, [place] % (Auto) 7.7, Eos % (Auto) 3.8, [...] Sl. Cloudy, Urine pH 6.0, Ur Specific [place] 1.020, Urine Protein 15 H, Urine Glucose [...] Keanu / Tel , Service support , Assessment & Plan Assessment/Plan (1) Hip fracture: PLAN: Plan The patient is a 76 y/o F w/ PMHx: Chronic normocytic anemia, HLD, GERD, Anxietyand Depression, Hypothyroidism, PAF remotely not on any chronic anticoagulant therapy, Fibromylagia who presents to the [facility] ED on 09/07/22 with history unfortunately chemical [...] Patient does not have healthcare power of Soil Expert in place however she does have a [...] 75 minutes. Charges/Coding Visit Charges Inpatient E&M: 80324 Init Hosp L3 Procedures Hospitalists Procedures: 94406 Advncd Care Plan 30 Min 09/07/22 2017 <Electronically signed by Yessenia Andres MD> Cosigner Signature (if applicable): CC: Dr. Yessenia Andres MD; Dr. Vera Pompa MD~ Signed [facility] Work Phone: 1(319) 328-154506-27-[address] Wooten [facility] September 07, 2022 7:03pm Note Date/Time September 07, 2022 7:01 pm [facility] Medical Records Department [address] [place] [address] Emergency Department Summary 09/07/22 MR#: [id number] Acct: [id number] Name: MICAELA COCHRAN Rep #:[id number] : 1945 76 From: Giancarlo Wooten DO [...] has history of right hip fracture distantly. [facility] Medical History Fibromyalgia Osteoporosis Home Medications calcium carbonate 600 mg calcium (1,500 mg) tablet 600 mg PO DAILY ##30 06/19/15[Rx Last Taken Unknown] cholecalciferol (vitamin D3) 25 mcg (1,000 unit) tablet (Vitamin D3) 2,000 unit PO DAILY ##30 06/19/15 [Rx Last Taken Unknown] fluoxetine 20 mg capsule 20 mg PO BID ##60 06/19/15 [Rx Last Taken Unknown] botpstvf-kaz-madgx acid 0.4 mg-lycopene 300 mcg-lutein 250 mcg [...] 70.1 H Lymph % (Auto) 17.5 L [place] % (Auto) 7.7 Eos % (Auto) 3.8 [...] Sl. Cloudy Urine pH 6.0 Ur Specific [place] 1.020 Urine Protein 15 H Urine Glucose [...] 20 mg PO BID Qty: 60 0RF pxtkkjzc-uln-FX-lycopen-lutein [Centrum Silver] 1 EACH tablet 1 ea [...] your Primary Care Provider. Call [facility] ([phone]) or report to the closest Emergency Room. Call 911 if necessary. 09/07/221902 <Electronically signed by Giancarlo Wooten DO> Cosigner Signature (if applicable): CC: Dr. Vera Pompa MD ~ Signed [facility] Work Phone: [phone]) 715-811406-27-2023 Discharge summary Author [facility] September 07, 2022 7:03pm Note Date/Time September 07, 2022 7:01 pm [facility] Medical Records Department [address] [place] [address] Emergency Department Summary 09/07/22 MR#: [id number] Acct: [id number] Name: MICAELA COCHRAN Rep #:[id number] : 1945 76 From: Giancarlo Wooten DO [...] has history of right hip fracture distantly. [facility] Medical History Fibromyalgia Osteoporosis Home Medications calcium carbonate 600 mg calcium (1,500 mg) tablet 600 mg PO DAILY ##30 06/19/15[Rx Last Taken Unknown] cholecalciferol (vitamin D3) 25 mcg (1,000 unit) tablet (Vitamin D3) 2,000 unit PO DAILY ##30 06/19/15 [Rx Last Taken Unknown] fluoxetine 20 mg capsule 20 mg PO BID ##60 06/19/15 [Rx Last Taken Unknown] gfwlmbjp-vxf-qkbyu acid 0.4 mg-lycopene 300 mcg-lutein 250 mcg [...] 70.1 H Lymph % (Auto) 17.5 L [place] % (Auto) 7.7 Eos % (Auto) 3.8 [...] Sl. Cloudy Urine pH 6.0 Ur Specific [place] 1.020 Urine Protein 15 H Urine Glucose [...] 18:12 EDT Reading Location ID and State: [id number] / Tel , Service support , Hip/Pelvis X-Ray 09/07/22 17:35 IMPRESSION: Acute fracture of the left femoral neck. Electronically Signed: Janette Levine MD at 18:06 EDT Reading Location ID and State: [id number] / Tel , Service support , Discharge Plan Triage Chief Complaint: Lower Extremity Injury ED Provider: Giancarlo Wooten Dx/Rx/DC Orders Prescriptions: No Action cholecalciferol (vitamin D3) [Vitamin D3] 1,000 UNIT tablet 2,000 unit PO DAILY Qty: 30 0RF calcium carbonate 600 MG tablet 600 mg PO DAILY Qty: 30 0RF fluoxetine 20 MG capsule 20 mg PO BID Qty: 60 0RF wbfmabve-rnv-LX-lycopen-lutein [Centrum Silver] 1 EACH tablet 1 ea [...] your Primary Care Provider. Call [facility] ([phone]) or report to the closest Emergency Room. Call 911 if necessary. 09/07/221902 <Electronically signed by Giancarlo Wooten DO> Cosigner Signature (if applicable): CC: Dr. Vera Pompa MD ~ Signed [facility] Work Phone: [phone]) 133-650005-30-2023 History of Present illness Narrative* Madyson Perry MA - 08/10/2022 2:14 PM EDT POPULATION HEALTH NAVIGATION OUTREACH Action/FYI Patient is on HCC list for below gaps and needs appt to address : G83.9 - Paralysis, unspecified - [id number] Last Billed 06/22/2021
F33.9 - Major depressivedisorder, recurrent episode (HCC) - [id number] Last Billed 12/24/2021
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
Care gaps/appts to address: [...] 10, 2022 2:27 PM documented in [facility] encounterProv[facility]01-23-2023 Miscellaneous Notes* Telephone Encounter - Vera Pompa [...] advise. Celso Day LPN documented in this encounterProvidence Hospital01-12-2023 Miscellaneous Notes* Telephone Encounter - Lisa Fairchild Ma - 03/25/2022 12:46 PM EST Spoke with pt who agrees to have mailed to home address on file. Lisa Fairchild Ma * Telephone Encounter - Vera Pompa MD - 03/25/2022 11:58 AM EST Rx printed for parking chris Pompa MD * Telephone Encounter - Lisa Fairchild Ma - 03/25/2022 8:30 AM EST Routed to PCP to complete. Will call to see if pt wants mailed to home or lemon picker, once complete. Lisa Fairchild Ma * Telephone Encounter - Nick Laamr LPN - 03/24/2022 4:09 PM EST Type of form: renewal of disability placard Form received via delivered to wrong providers mailbox When form is completed, contact pt for further instructions. Form has been forwarded to provider's nurse. Nick Lamar LPN documented in this encounterProvidence Hospital11-17-2022 Miscellaneous Notes* Telephone Encounter - Vera Pompa [...] and advise. Radha Prince documented in this encounterProvidence Hospital10-13-2022 Instructions* Patient Instructions* Apryl Gorman APRN.CNP - 12/24/2021 11:27 AM EDT Get repeat fasting labs in 6 months, 06/24/2021 Recommend setting a bathroom schedule to see if incontinence improves. Schedule appointment for Mammogram in June. You can consider colonoscopy or stool testing next year. Continue to eat a balanced diet. Follow up in 6 months or sooner as needed. documented in this encounterProvidence Hospital10-13-2022 History of Present illness Narrative* Apryl Gorman APRN.CNP - 12/24/2021 11:00 AM EDT This is a 76 year old female who presents today with: Patient presents with: 6 Month Exam HISTORY OF PRESENT ILLNESS: Micaela Cochran is a 76 year old female. [...] Procedure Laterality Date BREAST BIOPSY Left 12/16/2016 [facility]-Dr. Sandhu DELIVERY ONLY , low transverse x [...] refer to urology, Dr. Chaidez Local to [place]. 8. Encounter for immunization - ICD9: V03.89, ICD10: Z23 - VIS provided. - INFLUENZA SEASONAL QUADRIVALENT HIGH DOSE AGE 65+ Follow-up in 6 months or sooner as needed. Discussed treatment plan and patient voices understanding. Patient's questions answered appropriately. Medications and potential side effects were discussed and patient voices understanding. Apryl Gorman APRN.TECHNICAL STENOGRAPHER This note was partially generated using Therosteon recognition system. Note was reviewed for accuracy. There may be minor misspellings or grammar miscues with ThinkHR voice recognition. documented in this encounterProvidence Hospital09-26-2022 Miscellaneous Notes* Telephone Encounter - Luis Enrique [...] Thank you. Millie Sterling documented in this encounterProvidence Hospital08-16-2022 Miscellaneous Notes* Telephone Encounter - Luis Enrique [...] notify patient. Annetta Baig documented in this encounterProvidence Hospital08-12-2022 Miscellaneous Notes* Telephone Encounter - Luis Enrique [...] pharmacy. No need to notify patient. Annetta Sfaia documented in this encounterProvidence Hospital07-01-2022 Miscellaneous Notes* Telephone Encounter - Luis Enrique [...] patient. Mandy Wilson Pss documented in this encounterProvidence Hospital06-13-2022 Instructions* Patient Instructions* Shanta Washington APRN.CNP - [...] in a wedge pillow. documented in this encounterProvidence Hospital06-13-2022 History of Present illness Narrative* Shanta Washington [...] for internal providers or letter via the [employer] for external providers. Micaela Cochran is a 75 year old female [...] Procedure Laterality Date BREAST BIOPSY Left 12/16/2016 [facility]-Dr. Sandhu DELIVERY ONLY , low transverse x [...] which included preparing to see the patient, jvpe-xl-mauk patient care, completing clinical documentation, obtaining and/or reviewing separately obtained history, performing a medically appropriate examination, counseling and educating the pat ient/family/caregiver, ordering medications, tests, or procedures, communicating with other HCPs (not separately reported), independently interpreting results (not separately reported), communicatingresults to the patient/family/caregiver, and care coordination (not separately reported). Shanta Washington APRN.BERNIE DATE: 08/24/21 TIME: 10:30 AM documented in this encounterProvidence Hospital06-06-2022 Miscellaneous Notes* Telephone Encounter - eVra Pompa MD - 08/17/2021 8:16 AM EDT [...] advise. Celso Day LPN documented in this encounterProvidence Hospital05-02-2022 Miscellaneous Notes* Telephone Encounter - SERA Hardin [...] Luis Enrique Caicedo APRN.BERNIE documented in this encounterProvidence Hospital04-13-2022 Miscellaneous Notes* Telephone Encounter - Lisa Fairchild Ma - 06/24/2021 3:15 PM EDT Letter mailed to pt notifying her of normal mammogram and recommendation below from PCP. Lisa Fairchild Ma * Telephone Encounter - Vera Pompa MD - 06/24/2021 2:56 PM EDT Please notify patient that her mammogram is normal; recheck in 1 year Vera Pompa MD documented in this encounterProvidence Hospital04-13-2022 Miscellaneous Notes* Letter - Mammography Coordinator - 06/24/2021 11:05 AM EDT June 24, 2021 PID: [id number] Micaela Cochran [address] [place] [address] Dear Ms. Cochran, We are pleased to [...] report will [facility] permanent medical record and are available for your continuing care. Thank you for allowing us to help in meeting your health care needs. Sincerely, Dr. Diaz Interpreting Radiologist [facility] (Normal over 40) documented in this encounterProvidence Hospital04-13-2022 History of Present illness Narrative* Jim Hunter - 06/24/2021 10:10 AM EDT Radiology Service Progress Note PATIENT NAME: Micaela Cochran DATE OF SERVICE: June 24, 2021 [...] PERIPHERAL IV DATA: Not applicable SIGNED BY: iJm Hunter June 24, 2021 10:10 AM documented in this encounterProvidence Hospital04-11-2022 History of Present illness Narrative* Vera Pompa MD - 06/22/2021 11:40 AM EDT Chief Complaint Patient presents with: 6 Month Exam HPI Micaela Cochran is a 75 year old female [...] Procedure Laterality Date BREAST BIOPSY Left 12/16/2016 [facility]-Dr. Sandhu DELIVERY ONLY , low transverse x [...] Past Histories independently gathered by the clinical learning support assistant and the remaining scribed note accurately describes [...] AM. Nettie Brandt Ma documented in this encounterProvidence Hospital04-11-2022 Nurse Note* Nettie Brandt Ma - 06/22/2021 [...] Falls and Maintaining Balance documented in this encounterProvidence HospitalConsult note Author Dr. Manriquez [facility] September 07, 2022 8:32pm Note Date/Time September 07, 2022 8:32 pm [facility] Medical Records Department [address] [place] [address] Consultation - Orthopedics 09/07/222028 MR#: [id number] Acct: [id number] Name: MICAELA COCHRAN Rep #:[id number] : 1945 76 From: Saúl isaacs DO PCP: Dr. Vera Pompa MD Status:AD M IN Location: [facility] FE699-8 HPI Consult Data Date of Consult: 09/07/22 HPI Narrative Reason for Consultation: Left hip fracture HPI Narrative: MICAELA COCHRAN, is a 76 F who presents after mechanical fall from standing height onto the left side earlier today. [facility] a [...] any antecedent left hip or groin pain. [facility] Medical History (Updated 09/07/22 @ 19:13 by [...] 70.1 H, Lymph % (Auto) 17.5 L, [place] % (Auto) 7.7, Eos % (Auto) 3.8, [...] Sl. Cloudy, Urine pH 6.0, Ur Specific [place] 1.020, Urine Protein 15 H, Urine Glucose [...] EDT Reading Location ID and State: Keanu Pazi MD Tel , Service support , Hip/Pelvis [...] applicable): CC: Dr. Vera Pompa MD~ Signed [facility] Work Phone: Evaluation note* Diagnosis Episode of recurrent major depressive disorder, unspecified depression episode severity (HCC)- Primary Hyperlipidemia, mixed Mixed hyperlipidemia Other specified hypothyroidism Other osteoporosis without current pathological fracture Vitamin D deficiency Unspecified vitamin D deficiency Heart burn Heartburn Anemia, unspecified type Encounter for screening mammogram for malignant neoplasm of breast Other screening mammogram [facility] [place] [facility]* Diagnosis Encounter for screening mammogram for malignant neoplasm of breast Other screening mammogram documented [facility] [place] [facility]* Diagnosis Hyperlipidemia, mixed Mixed hyperlipidemia documented in this encounter [facility] [place] [facility]* Diagnosis Heart burn Heartburn documented in this [facility] [place] [facility]* Diagnosis Heart burn Heartburn documented in this [facility] [place] [facility]* Diagnosis Osteoporosis, unspecified osteoporosis type, unspecified pathological fracture presence documented in this encounter [facility] note* Diagnosis Primary lateral sclerosis (HCC) Primary lateral sclerosis [facility] [place] [facility]* Diagnosis Heart burn Heartburn documented in this encounter [facility] note* Diagnosis Hyperlipidemia, mixed- Primary Mixed hyperlipidemia [...] single bacterial disease documented in this encounter [facility]* Diagnosis Onset Date Resolution Status Hip fracture acute [facility] Work Phone: Evaluation note* Diagnosis Onset Date Resolution Status Acute blood loss anemia acut e Closed intertrochanteric fracture of left femur acute Hip fracture acute [facility] Work Phone: Evaluation note* Diagnosis [...] Fall resolved UTI (urinary tract infection) resolved [facility] Work Phone: Evaluation note* Diagnosis Encounter for screening mammogram for breast cancer documented in this encounter [facility] note* Diagnosis Osteoporosis, unspecified osteoporosis type, unspecified pathological fracture presence documented in this encounter [facility] note* Diagnosis Heart burn- Primary Heartburn documented in this encounter [facility] note* Diagnosis Closed fracture of left [...] single bacterial disease documented in this encounter [facility] note* Diagnosis Primary lateral sclerosis (HCC) Primary lateral sclerosis documented in this encounter [facility] noteNo assessment information availableWElyria Memorial [facility] Work Phone: Evaluation note* Diagnosis Dizziness- Primary Dizziness and giddiness documented in this encounter [facility] note* Diagnosis Hospital discharge follow-up- Primary Other follow-up examination Vertigo Dizziness and giddiness Bilateral impacted cerumen Impacted cerumen documented in this encounter [facility] note* Diagnosis Hypothyroidism, unspecified type documented in this encounter [facility] note* Diagnosis Hypothyroidism, unspecified type documented in this encounter [facility] note* Diagnosis Hypothyroidism, unspecified type documented in this encounter [facility] note* Diagnosis Bilateral leg edema- Primary Edema Other specified hypothyroidism documented in this encounter [facility] note* Diagnosis Hypothyroidism, unspecified type- Primary Ankle edema, bilateral Hyperlipidemia, mixed Mixed hyperlipidemia Anxiety with depression Osteoporosis, unspecified osteoporosis type, unspecified pathological fracture presence documented in this encounter [facility] note* Diagnosis Hyperlipidemia, mixed Mixed hyperlipidemia documented in this encounter [facility] note* Diagnosis Hyperlipidemia, mixed Mixed hyperlipidemia documented in this encounter [facility] note* Diagnosis Heart burn Heartburn documented in this encounter [facility] note* Diagnosis Primary lateral sclerosis (HCC) Primary lateral sclerosis documented in this encounter [facility] note* Diagnosis Osteoporosis, unspecified osteoporosis type, unspecified pathological fracture presence [facility] encounter [facility] [place] [facility]* Diagnosis Hypothyroidism, unspecified type documented in this encounter [facility] note* Diagnosis Hypothyroidism, unspecified type documented in this encounter [facility] note* Diagnosis Episode of recurrent major depressive disorder, unspecified depression episode severity (HCC) documented in this encounter [facility] note* Diagnosis Closed wedge compression fracture of T12 vertebra, sequela- Primary Gait instability Abnormality of gait documented in this encounter [facility] note* Diagnosis Closed wedge compression fracture of T11 vertebra, initial encounter (HCC) documented in this encounter [facility] note* Diagnosis Primary lateral sclerosis (HCC) Primary lateral sclerosis documented in this encounter [facility] note* Diagnosis Heart burn Heartburn documented in this encounter [facility] note* Diagnosis Encounter for Medicare annual [...] single episode, in partial or unspecified remission longterm (current) use of bisphosphonates Long-term current use of proton pump inhibitor therapy History of falling Personal history of fall documented in this encounter [facility] [place] [facility]* Diagnosis Elevated alkaline phosphatase level- Primary Other nonspecific abnormal serum enzyme levels Hypothyroidism, unspecified type Elevated LFTs Other abnormal blood chemistry Diplopia documented in this encounter [facility] note* Diagnosis Osteoporosis, unspecified osteoporosis type, unspecified pathological fracture presence [facility] Andres [facility] September 07, 2022 8:17pm Note Date/Time September 07, 2022 7:20 pm [facility] Medical Records Department [facility] [place] [address] H&P Exam - Hospitalist 09/07/221912 MR#: [id number] Acct: [id number] Name: MICAELA COCHRAN Rep #:[id number] : 1945 76 From: Yessenia Andres MD PCP: Dr. Vera Pompa MD Status:RE G ER Location: ED HPI - General General Date of Service: 09/07/22 Chief Complaint: Fall, L hip pain. HPI Narrative The patient is a 76 y/o F w/ PMHx: Chronic normocytic anemia, HLD, GERD, Anxietyand Depression, Hypothyroidism, PAF remotely not on any chronic anticoagulant therapy, Fibromylagia who presents to the [facility] ED on 09/07/22 with history unfortunately chemical [...] IV x1.ED discussed case with Dr. Manriquez. [facility] Medical History (Updated 09/07/22 @ 19:13 by [...] 70.1 H, Lymph % (Auto) 17.5 L, [place] % (Auto) 7.7, Eos % (Auto) 3.8, [...] Sl. Cloudy, Urine pH 6.0, Ur Specific [place] 1.020, Urine Protein 15 H, Urine Glucose [...] anticoagulant therapy, Fibromylagia who presents to the [facility] ED on 09/07/22 with history unfortunately chemical [...] Patient does not have healthcare power of Soil Expert in place however she does have a [...] 75 minutes. Charges/Coding Visit Charges Inpatient E&M: 27544 Init Hosp L3 Procedures Hospitalists Procedures: 96982 Advncd Care Plan 30 Min 09/07/222016 <Electronically signed by Yessenia Andres MD> Cosigner Signature (if applicable): CC: Dr. Yessenia Andres MD; Dr. Vera Pompa MD~ Signed [facility] Work Phone: Hospital Discharge instructions [...] If not improving follow-up your primary care physician.[facility] Work Phone: Hospital Discharge instructions Additional Instructions Discharge home with 05/25/2024, [facility] PT/OT/ST.[facility] Work Phone: Hospital Discharge instructionsAdditional [...] go away. If it is not improving follow-up.[facility] Work Phone: Hospital Discharge instructionsAdditional Instructions Thank you for trusting us with your care today! Your presentation is likely secondary to dehydration and hypothyroidism. Please drink plenty of electrolyte containing beverages such as Body Armor, Pedialyte or Gatorade. Please follow with your primary care physician for further treatment of hypothyroidism. Please continue taking your already prescribed levothyroxine. This likely need to be adjusted Please take Tylenol (2 pills, 650 mg), ibuprofen (2 pills, 400 mg) every 6 hours as needed for pain and fever control. Please return to the emergency department if your symptoms change or worsen. Please follow with your primary care physician for further outpatient evaluation and management.[facility] Work Phone: Hospital Discharge instructionsAdditional Instructions If you develop worsening symptoms, weakness, fever, shortness of breath or difficulty breathing or you start having difficulty swallowing or choking please return to the emergency room. Please follow-up tomorrow with your scheduled outpatient testing. You have been given referral for neurology as well.[facility] Work Phone: Reason for referral (narrative)* Diagnostic Procedure Only (Routine) - Authorized Specialty Diagnoses / Procedures Referred By Farshad huggins Referred To Contact [facility] Diagnoses Encounter for screening mammogram for malignant neoplasm of breast Procedures GENOVEVA SCREENING SCREENING MAMMOGRAPHY BI 2-VIEW BREAST INC CAD Vera Pompa MD [address] [place] [address] [facility] [address] [facility] [facility] [place] [address] Referral ID Status Reason Start Date Expiration Date Visits Requested Visits Authorized [id number] Authorized Auto-Generat ed Referral 06/22/2021 07/22/2022 1 1 * Consult, Test, Treat (Routine) - Authorized Specialty Diagnoses / Procedures Referred By Farshad huggins Referred To Contact Gastroenterology Diagnoses Heart burn Procedures CONSULT TO GASTROENTEROLOGY OFFICE/OUTPATIENT NEW HIGH MDM 60-74 MINUTES Vera Pompa MD [address] [place] [address] Referral ID Status Reason Start Date Expiration Date Visits Requested Visits Authorized [id number] Authorized PCP Requested Referral 06/22/2021 06/22/2022 1 1 [facility] for referral (narrative)* Diagnostic Procedure Only (Routine) - Closed Specialty Diagnoses / Procedures Referred By Olgaac t Referred To Contact [facility] Diagnoses Encounter for screening mammogram for malignant neoplasm of breast Procedures GENOVEVA SCREENING SCREENING MAMMOGRAPHY BI 2-VIEW BREAST INC Vera Mobley MD [address] [place] [address] [facility] Imaging [address] [place] [address] Referral ID Status Reason Start Date Expiration Date V isits Requested Visits Authorized [id number] Closed Auto-Generate d Referral 06/22/2021 07/22/2022 1 1 T [facility] for referral (narrative)* Diagnostic Procedure Only (Routine) - Pending Review Specialty Diagnoses / Procedures Referred By Contac t Referred To Contact [facility] Diagnoses Encounter for screening mammogram for malignant neoplasm of breast Procedures GENOVEVA SCREENING SCREENING MAMMOGRAPHY BI 2-VIEW BREAST INC Apryl Burris APRN.CNP [address] [place] [address] [facility] [address] [place] [address] Referral ID Status Reason Start Date Expiration Date Visits Requested Visits Authorized [id number] Pending Review Auto-Generat ed Referral 06/24/2022 01/23/2023 1 1 T [facility] for referral (narrative)* Diagnostic Procedure Only (Routine) - Pending Review Specialty Diagnoses / Procedures Referred By Contac t Referred To Contact [facility] Diagnoses Encounter for screening mammogram for breast cancer Procedures GENOVEVA SCREENING SCREENING MAMMOGRAPHY BI 2-VIEW BREAST INC Vera Mobley MD [address] [place] [address] [facility] Imaging [address] [place] [address] Referral ID Status Reason Start Date Expiration Date Visits Requested Visits Authorized [id number] Pending Review Auto-Generat ed Referral 12/01/2022 12/31/2023 1 1 [facility] for referral (narrative)No reason for referral information [facility]WEly[facility] Work Phone: Reason for visit Narrative* Diagnostic Procedure Only (Routine) - Closed Specialty Diagnoses / Procedures Referred By Farshad t Referred To Contact [facility] Diagnoses Encounter for screening mammogram for malignant neoplasm of breast Procedures GENOVEVA SCREENING SCREENING MAMMOGRAPHY BI 2-VIEW BREAST INC CAD Vera Pompa MD [address] [place] [address] [facility] [address] [place] [address] Referral ID Status Reason Start Date Expiration Date V isits Requested Visits Authorized [id number] Closed Auto-Generate d Referral 06/22/2021 07/22/2022 1 [facility] Diagnostic Procedure Only (Routine) - Closed Specialty Diagnoses / Procedures Referred By Farshad huggnis Referred To Contact X[facility] IMAGING Diagnoses Closed wedge compression fracture of T11 vertebra, initial encounter ([facility]) Procedures XR THORACO LUMBAR JUNCT 2V AP/LAT RADEX SPINE THORACOLUMBAR JUNCTION MIN 2 VIEWS Cynthia Tomas PA-C [address] [place] [id number] Phone: tel: fax: [place] [id number] Referral ID Status Reason Start Date Expiration Date V isits Requested Visits Authorized [id number] Closed Auto-Generate d Referral 05/07/2024 06/06/2025 1 1 [facility] Chief Complaint and Reason for Visit Chief [...] 2024 9:36pm GERD (gastroesophageal reflux disease) F r[facility]on 2024 9:36pm HLD (hyperlipidemia) May 09, 2024 [...] 2024 9:36pm GERD (gastroesophageal reflux disease) F [facility] 2024 9:36pm HLD (hyperlipidemia) May 09, 2024 [...] pm fall September 13, 2024 2:54p m Chief Complaint Admit Date NOSEBLEED August 21, 2024 3:44 pm fall September 13, 2024 2:54p m weakness September 23, 2024 10:2 3am Chief Complaint Admit Date NOSEBLEED August 21, 2024 3:44 pm fall September 13, 2024 2:54p m weakness September 23, 2024 10:2 3am Diplopia September 27, 2024 2:28 pm Chief Complaint Admit Date NOSEBLEED August 21, 2024 3:44 pm fall September 13, 2024 2:54p m weakness September 23, 2024 10:2 3am Diplopia September 27, 2024 2:28 pm AMS October 09, 2024 12:5 8pm Family History No Family History Records Found Relationship Condition Age at Onset Recorded Date/T loly mother Malignant neoplasm Unknown father Malignant neoplasm Unknown Advance Directives No Advanced Directives Records Found Advance Directive Response Recorded Date/ Time Advance Directives Yes March 17, 2016 12:38pm Living Will Yes September 07, 2022 5:01pm Power of Soil Expert No September 07 5:01pm Advance Directive Response Recorded Date/ Time Advance Directives Yes March 17, 2016 12:38pm Living Will Yes September 07, 2022 9:18pm Power of Soil Expert No September 07 9:18pm Advance Directive Response Recorded Date/ Time Name of Medical Power of Soil Expert Berny Cochran September 13, 2022 3:25pm Advance Directives Yes March 17, 2016 12:38pm Living Will Yes September 13, 2022 3 :25pm Power of Soil Expert Yes September 13, 2022 3:25pm Advance Directive Response Recorded Date/ Time Advance Directives Yes March 17, 2016 12:38pm Living Will Yes May 25, 2023 12:48pm Power of Soil Expert Yes May 24 12:48pm Name of Medical Power of Soil Expert . May 25, 2023 12:48pm Date Activated Date Inactivated Comments 05/06/2024 12:04 AM 05/10/2024 12:16 AM Question Answer Comments Full Code Order Discussed With: Patient Advance Directive Response Recorded Date/ Time Living Will Yes May 10 2:54pm Power of Soil Expert Yes May 10, 2024 2:54pm Name of Medical Power of Soil Expert BERNY COCHRAN, May 10, 2024 2:54pm Living Will No May 05 4:32pm Power of Soil Expert Yes May 05, 2024 4:32pm Name of Medical Power of Soil Expert Berny contreras May 05, 2024 4:32pm Advance Directives Yes March 17, 2016 12:38pm Date Activated Date Inactivated Comments 05/06/2024 12:04 AM 05/10/2024 12:16 AM Question Answer Comments Full Code Order Discussed With: Patient Advance Directive Response Recorded Date/ Time Living Will Yes May 10 2:54pm Do you have a Healthcare Pow er of Soil Expert? Yes May 10, 2024 2:54pm Name of Medical Power of Soil Expert BERNY COCHRAN, May 10, 2024 2:54pm Living Will No May 05 4:32pm Do you have a Healthcare Pow er of Soil Expert? Yes May 05, 2024 4:32pm Name of Medical Power of Soil Expert Berny contreras May 05, 2024 4:32pm Do you have a Healthcare Pow er of Soil Expert? No August 21, 2024 4:17pm Advance Directives Yes March 17, 2016 12:38pm Advance Directive Response Recorded Date/ Time Living Will Yes May 10 2:54pm Do you have a Healthcare Pow er of Soil Expert? Yes May 10, 2024 2:54pm Name of Medical Power of Soil Expert BERNY COCHRAN, May 10, 2024 2:54pm Do you have a Healthcare Pow er of Soil Expert? No August 21, 2024 4:17pm Do you have a Healthcare Pow er of Soil Expert? No September 13, 2024 2:54pm Advance Directives Yes March 17, 2016 12:38pm Advance Directive Response Recorded Date/ Time Do you have a Healthcare Power of Soil Expert? No September 23, 2024 10:25am Do you have a Healthcare Power of Soil Expert? No August 21, 2024 4:17pm Do you have a Healthcare Power of Soil Expert? No September 13, 2024 2:54pm Advance Directives Yes March 17, 2016 12:38pm Advance Directive Response Recorded Date/ Time Do you have a Healthcare Power of Soil Expert? No September 23, 2024 10:25am Do you have a Healthcare Power of Soil Expert? Yes October 09, 2024 1:22pm Do you have a Healthcare Power of Soil Expert? No August 21, 2024 4:17pm Do you have a Healthcare Power of Soil Expert? No September 13, 2024 2:54pm Advance Directives Yes March 17, 2016 12:38pm Reason for Referral Specialty Diagnoses / Procedures Referred By Contac t Referred To Contact Ent - Otolaryngology Diagnoses Bilateral impacted cerumen Procedures CONSULT TO ENT OFFICE/OUTPATIENT [facility] MDM 60 MINUTES Apryl Gorman APRN.TECHNICAL STENOGRAPHER [address] [place] [address] Referral ID Status Reason Start Date Expiration Date Visits Requested Visits Authorized [id number] Authorized PCP Requested Referral 05/30/2023 05/29/2024 1 1 Specialty Diagnoses / Procedures Referred By Farshad huggins Referred To Contact Diagnoses Bilateral impacted cerumen Apryl Gorman APRN.TECHNICAL STENOGRAPHER [address] [place] [address] Referral ID Status Reason Start Date Expiration Date Visits Re quested Visits Authorized [id number] Closed 1 1 Summary Purpose Additional Source Comments Source Comments (unrecognize d section and content) In the event this informatio n is protected by the Federal Confidentiality of Alcohol and Drug Abuse Patient Records regulations: The Federal rules restrict any use of the information to criminally investigate or prosecute any alcohol or drug abuse patient.[facility] the event this information is protected by the Federal Confidentiality of Alcohol and Drug Abuse Patient Records regulations: The Federal rules restrict any use of the information to criminally investigate or prosecute any alcohol or drug abuse patient.[facility] Hospital[facility] the event this information is protected by the Federal Confidentiality of Alcohol and Drug Abuse Patient Records regulations: The Federal rules restrict any use of the information to criminally investigate or prosecute any alcohol or drug abuse patient.[facility] HospitalIn the event this information is protected by the Federal Confidentiality of Alcohol and Drug Abuse Patient Records regulations: The Federal rules restrict any use of the information to criminally investigate or prosecute any alcohol or drug abuse patient.[facility] HospitalIn the event this information is protected by the Federal Confidentiality of Alcohol and Drug Abuse Patient Records regulations: The Federal rules restrict any use of the information to criminally investigate or prosecute any alcohol or drug abuse patient.[facility] HospitalIn the event this information is protected by the Federal Confidentiality of Alcohol and Drug Abuse Patient Records regulations: The Federal rules restrict any use of the information to criminally investigate or prosecute any alcohol or drug abuse patient.[facility] HospitalIn the event this information is protected by the Federal Confidentiality of Alcohol and Drug Abuse Patient Records regulations: The Federal rules restrict any use of the information to criminally investigate or prosecute any alcohol or drug abuse patient.[facility] HospitalIn the event this information is protected by the Federal Confidentiality of Alcohol and Drug Abuse Patient Records regulations: The Federal rules restrict any use of the information to criminally investigate or prosecute any alcohol or drug abuse patient.[facility] HospitalIn the event this information is protected by the Federal Confidentiality of Alcohol and Drug Abuse Patient Records regulations: The Federal rules restrict any use of the information to criminally investigate or prosecute any alcohol or drug abuse patient.[facility] HospitalIn the event this information is protected by the Federal Confidentiality of Alcohol and Drug Abuse Patient Records regulations: The Federal rules restrict any use of the information to criminally investigate or prosecute any alcohol or drug abuse patient.[facility] HospitalIn the event this information is protected by the Federal Confidentiality of Alcohol and Drug Abuse Patient Records regulations: The Federal rules restrict any use of the information to criminally investigate or prosecute any alcohol or drug abuse patient.[facility] HospitalIn the event this information is protected by the Federal Confidentiality of Alcohol and Drug Abuse Patient Records regulations: The Federal rules restrict any use of the information to criminally investigate or prosecute any alcohol or drug abuse patient.[facility] HospitalIn the event this information is protected by the Federal Confidentiality of Alcohol and Drug Abuse Patient Records regulations: The Federal rules restrict any use of the information to criminally investigate or prosecute any alcohol or drug abuse patient.[facility] HospitalIn the event this information is protected by the Federal Confidentiality of Alcohol and Drug Abuse Patient Records regulations: The Federal rules restrict any use of the information to criminally investigate or prosecute any alcohol or drug abuse patient.[facility] HospitalIn the event this information is protected by the Federal Confidentiality of Alcohol and Drug Abuse Patient Records regulations: The Federal rules restrict any use of the information to criminally investigate or prosecute any alcohol or drug abuse patient.[facility] HospitalIn the event this information is protected by the Federal Confidentiality of Alcohol and Drug Abuse Patient Records regulations: The Federal rules restrict any use of the information to criminally investigate or prosecute any alcohol or drug abuse patient.[facility] HospitalIn the event this information is protected by the Federal Confidentiality of Alcohol and Drug Abuse Patient Records regulations: The Federal rules restrict any use of the information to criminally investigate or prosecute any alcohol or drug abuse patient.[facility] HospitalIn the event this information is protected by the Federal Confidentiality of Alcohol and Drug Abuse Patient Records regulations: The Federal rules restrict any use of the information to criminally investigate or prosecute any alcohol or drug abuse patient.[facility] HospitalIn the event this information is protected by the Federal Confidentiality of Alcohol and Drug Abuse Patient Records regulations: The Federal rules restrict any use of the information to criminally investigate or prosecute any alcohol or drug abuse patient.[facility] HospitalIn the event this information is protected by the Federal Confidentiality of Alcohol and Drug Abuse Patient Records regulations: The Federal rules restrict any use of the information to criminally investigate or prosecute any alcohol or drug abuse patient.[facility] HospitalIn the event this information is protected by the Federal Confidentiality of Alcohol and Drug Abuse Patient Records regulations: The Federal rules restrict any use of the information to criminally investigate or prosecute any alcohol or drug abuse patient.[facility] HospitalIn the event this information is protected by the Federal Confidentiality of Alcohol and Drug Abuse Patient Records regulations: The Federal rules restrict any use of the information to criminally investigate or prosecute any alcohol or drug abuse patient.[facility] HospitalIn the event this information is protected by the Federal Confidentiality of Alcohol and Drug Abuse Patient Records regulations: The Federal rules restrict any use of the information to criminally investigate or prosecute any alcohol or drug abuse patient.[facility] HospitalIn the event this information is protected by the Federal Confidentiality of Alcohol and Drug Abuse Patient Records regulations: The Federal rules restrict any use of the information to criminally investigate or prosecute any alcohol or drug abuse patient.[facility] HospitalIn the event this information is protected by the Federal Confidentiality of Alcohol and Drug Abuse Patient Records regulations: The Federal rules restrict any use of the information to criminally investigate or prosecute any alcohol or drug abuse patient.[facility] HospitalIn the event this information is protected by the Federal Confidentiality of Alcohol and Drug Abuse Patient Records regulations: The Federal rules restrict any use of the information to criminally investigate or prosecute any alcohol or drug abuse patient.[facility] HospitalIn the event this information is protected by the Federal Confidentiality of Alcohol and Drug Abuse Patient Records regulations: The Federal rules restrict any use of the information to criminally investigate or prosecute any alcohol or drug abuse patient.[facility] HospitalIn the event this information is protected by the Federal Confidentiality of Alcohol and Drug Abuse Patient Records regulations: The Federal rules restrict any use of the information to criminally investigate or prosecute any alcohol or drug abuse patient.[facility] HospitalIn the event this information is protected by the Federal Confidentiality of Alcohol and Drug Abuse Patient Records regulations: The Federal rules restrict any use of the information to criminally investigate or prosecute any alcohol or drug abuse patient.[facility] HospitalIn the event this information is protected by the Federal Confidentiality of Alcohol and Drug Abuse Patient Records regulations: The Federal rules restrict any use of the information to criminally investigate or prosecute any alcohol or drug abuse patient.[facility] HospitalIn the event this information is protected by the Federal Confidentiality of Alcohol and Drug Abuse Patient Records regulations: The Federal rules restrict any use of the information to criminally investigate or prosecute any alcohol or drug abuse patient.[facility] HospitalIn the event this information is protected by the Federal Confidentiality of Alcohol and Drug Abuse Patient Records regulations: The Federal rules restrict any use of the information to criminally investigate or prosecute any alcohol or drug abuse patient.[facility] HospitalIn the event this information is protected by the Federal Confidentiality of Alcohol and Drug Abuse Patient Records regulations: The Federal rules restrict any use of the information to criminally investigate or prosecute any alcohol or drug abuse patient.[facility] HospitalIn the event this information is protected by the Federal Confidentiality of Alcohol and Drug Abuse Patient Records regulations: The Federal rules restrict any use of the information to criminally investigate or prosecute any alcohol or drug abuse patient.[facility] HospitalIn the event this information is protected by the Federal Confidentiality of Alcohol and Drug Abuse Patient Records regulations: The Federal rules restrict any use of the information to criminally investigate or prosecute any alcohol or drug abuse patient.[facility] HospitalIn the event this information is protected by the Federal Confidentiality of Alcohol and Drug Abuse Patient Records regulations: The Federal rules restrict any use of the information to criminally investigate or prosecute any alcohol or drug abuse patient.[facility] HospitalIn the event this information is protected by the Federal Confidentiality of Alcohol and Drug Abuse Patient Records regulations: The Federal rules restrict any use of the information to criminally investigate or prosecute any alcohol or drug abuse patient.[facility] HospitalIn the event this information is protected by the Federal Confidentiality of Alcohol and Drug Abuse Patient Records regulations: The Federal rules restrict any use of the information to criminally investigate or prosecute any alcohol or drug abuse patient.[facility] HospitalIn the event this information is protected by the Federal Confidentiality of Alcohol and Drug Abuse Patient Records regulations: The Federal rules restrict any use of the information to criminally investigate or prosecute any alcohol or drug abuse patient.[facility] HospitalIn the event this information is protected by the Federal Confidentiality of Alcohol and Drug Abuse Patient Records regulations: The Federal rules restrict any use of the information to criminally investigate or prosecute any alcohol or drug abuse patient.[facility] HospitalIn the event this information is protected by the Federal Confidentiality of Alcohol and Drug Abuse Patient Records regulations: The Federal rules restrict any use of the information to criminally investigate or prosecute any alcohol or drug abuse patient.[facility] HospitalIn the event this information is protected by the Federal Confidentiality of Alcohol and Drug Abuse Patient Records regulations: The Federal rules restrict any use of the information to criminally investigate or prosecute any alcohol or drug abuse patient.[facility] HospitalIn the event this information is protected by the Federal Confidentiality of Alcohol and Drug Abuse Patient Records regulations: The Federal rules restrict any use of the information to criminally investigate or prosecute any alcohol or drug abuse patient.[facility] HospitalIn the event this information is protected by the Federal Confidentiality of Alcohol and Drug Abuse Patient Records regulations: The Federal rules restrict any use of the information to criminally investigate or prosecute any alcohol or drug abuse patient.[facility] HospitalIn the event this information is protected by the Federal Confidentiality of Alcohol and Drug Abuse Patient Records regulations: The Federal rules restrict any use of the information to criminally investigate or prosecute any alcohol or drug abuse patient.[facility] HospitalIn the event this information is protected by the Federal Confidentiality of Alcohol and Drug Abuse Patient Records regulations: The Federal rules restrict any use of the information to criminally investigate or prosecute any alcohol or drug abuse patient.[facility] HospitalIn the event this information is protected by the Federal Confidentiality of Alcohol and Drug Abuse Patient Records regulations: The Federal rules restrict any use of the information to criminally investigate or prosecute any alcohol or drug abuse patient.[facility] HospitalIn the event this information is protected by the Federal Confidentiality of Alcohol and Drug Abuse Patient Records regulations: The Federal rules restrict any use of the information to criminally investigate or prosecute any alcohol or drug abuse patient.[facility] HospitalIn the event this information is protected by the Federal Confidentiality of Alcohol and Drug Abuse Patient Records regulations: The Federal rules restrict any use of the information to criminally investigate or prosecute any alcohol or drug abuse patient.[facility] HospitalIn the event this information is protected by the Federal Confidentiality of Alcohol and Drug Abuse Patient Records regulations: The Federal rules restrict any use of the information to criminally investigate or prosecute any alcohol or drug abuse patient.[facility] HospitalIn the event this information is protected by the Federal Confidentiality of Alcohol and Drug Abuse Patient Records regulations: The Federal rules restrict any use of the information to criminally investigate or prosecute any alcohol or drug abuse patient.[facility] HospitalIn the event this information is protected by the Federal Confidentiality of Alcohol and Drug Abuse Patient Records regulations: The Federal rules restrict any use of the information to criminally investigate or prosecute any alcohol or drug abuse patient.[facility] HospitalIn the event this information is protected by the Federal Confidentiality of Alcohol and Drug Abuse Patient Records regulations: The Federal rules restrict any use of the information to criminally investigate or prosecute any alcohol or drug abuse patient.[facility] HospitalIn the event this information is protected by the Federal Confidentiality of Alcohol and Drug Abuse Patient Records regulations: The Federal rules restrict any use of the information to criminally investigate or prosecute any alcohol or drug abuse patient.[facility] HospitalIn the event this information is protected by the Federal Confidentiality of Alcohol and Drug Abuse Patient Records regulations: The Federal rules restrict any use of the information to criminally investigate or prosecute any alcohol or drug abuse patient.[facility] HospitalIn the event this information is protected by the Federal Confidentiality of Alcohol and Drug Abuse Patient Records regulations: The Federal rules restrict any use of the information to criminally investigate or prosecute any alcohol or drug abuse patient.[facility] HospitalIn the event this information is protected by the Federal Confidentiality of Alcohol and Drug Abuse Patient Records regulations: The Federal rules restrict any use of the information to criminally investigate or prosecute any alcohol or drug abuse patient.[facility] HospitalIn the event this information is protected by the Federal Confidentiality of Alcohol and Drug Abuse Patient Records regulations: The Federal rules restrict any use of the information to criminally investigate or prosecute any alcohol or drug abuse patient.[facility] HospitalIn the event this information is protected by the Federal Confidentiality of Alcohol and Drug Abuse Patient Records regulations: The Federal rules restrict any use of the information to criminally investigate or prosecute any alcohol or drug abuse patient.[facility] HospitalIn the event this information is protected by the Federal Confidentiality of Alcohol and Drug Abuse Patient Records regulations: The Federal rules restrict any use of the information to criminally investigate or prosecute any alcohol or drug abuse patient.[facility] HospitalIn the event this information is protected by the Federal Confidentiality of Alcohol and Drug Abuse Patient Records regulations: The Federal rules restrict any use of the information to criminally investigate or prosecute any alcohol or drug abuse patient.[facility] Reason for Visit (unrecogniz ed section and content) Reason Comments 6 Month Exam Reason Comments Results Reason Comments Refill Request Reason Comments 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 Specialty Diagnoses / Procedures Referred By Contnii t Referred To Contact Gastroenterology Diagnoses Heart burn Procedures CONSULT TO GASTROENTEROLOGY OFFICE/OUTPATIENT [facility] MDM 60-74 MINUTES Vera Pompa MD [address] [place] [address] Referral ID Status Reason Start Date Expiration Date V isits Requested Visits Authorized [id number] Closed PCP Requested Referral 06/22/2021 06/22/2022 1 [...] Wellness Exam Reason Onset Date Comments ACM KRISTIN RN 09/17/2024 Chart review per payor request Reason Onset Date Comments Allied Health Visit 09/18/2024 Medication A dherence Outreach Reason Onset Date Comments Allied Health Visit 09/24/2024 Medication A dherence Outreach Reason Comments [facility] ER f/u Reason Comments ED Follow-up Reason Onset Date Comments Refill Request 10/31/2024 Care Teams (unrecognized sec tion and content) Squirt Machine Operator Relationship Specialty Start Date End Date Vera Pompa MD [address] [place], [place] [id number] PCP - General Family Practice 12/06/11 Squirt Machine Operator Relationship Specialty Start Date End Date Vera Pompa MD [address] [place], [place] [id number] PCP - General Family Practice 12/06/11 Squirt Machine Operator Relationship Specialty Start Date End Date Vera Pompa MD [address] [place], [place] [id number] PCP - General Family Practice 12/06/11 Squirt Machine Operator Relationship Specialty Start Date End Date Vera Pompa MD [address] [place] [address] PCP - General Family Practice 12/06/11 Squirt Machine Operator Relationship Specialty Start Date End Date Vera Pompa MD [address] [place] [address] PCP - General Family Practice 12/06/11 Squirt Machine Operator Relationship Specialty Start Date End Date Vera Pompa MD [address] [place] [address] PCP - General Family Practice 12/06/11 Squirt Machine Operator Relationship Specialty Start Date End Date Vera Pomap MD [address] [place] [address] PCP - General Family Medicine 12/06/11 Squirt Machine Operator Relationship Specialty Start Date End Date Vera Pompa MD [address] [place] [address] PCP - General Family Medicine 12/06/11 Squirt Machine Operator Relationship Specialty Start Date End Date Vera Pompa MD [address] [place] [address] PCP - General Family Medicine 12/06/11 Squirt Machine Operator Relationship Specialty Start Date End Date Vera Pompa MD [address] [place] [address] PCP - General Family Medicine 12/06/11 Team Status: Active Member Role Status Dates Dr. Vera Pompa MD Family Provider Active Dr. Vera Pompa MD Primary Care Provider Active Team Status: Active Member Role Status Dates Dr. Vera Pompa MD Primary Care Provider Active Dr. Giancarlo Wooten DO Emergency Provider Active Dr. Yessenia Andres MD Attending Provider Active Team Status: Active Member Role Status Dates Dr. Vera Pompa MD Primary Care Provider Active Dr. Giancarlo Je , DO Emergency Provider Active Dr. Yessenia [...] Provider, Other Provider Active Dr. Luis Ashley , DO Attending Provider, Other Provid er Active Dr. Saúl Manriquez , DO Other Provider Active Team Status: Inactive Member Role Status Dates Dr. Vera Pompa MD Primary Care Provider Active Dr. Giancarlo Wooten , Emergency Provider Active Dr. Yessenia Andres MD Admit Provider, Other Provider Active Dr. Luis Ashley , DO Attending Provider Active Dr. Saúl Manriquez , Other Provider Active Squirt Machine Operator Relationship Specialty Start Date End Date Vera Pompa MD [address] [place] [address] PCP - General Family Medicine 12/06/11 Team Status: Active Member Role Status Dates Dr. Vera Pompa MD Primary Care Provider Active Dr. Odilon Rodríguez MD Admit Provider, Other Provider A ctive Dr. Celeste Lloyd , Attending Provider Act miguel Team Status: Inactive [...] Primary Care Provider Active Dr. Saúl Manriquez , Attending Provider, Referrin g Provider Active Team Status: Inactive Member Role Status Dates Dr. Vera Pompa MD Primary Care Provider Active Dr. Odilon Rodríguez MD Attending Provider, Referring Pr ovider Active Squirt Machine Operator Relationship Specialty Start Date End Date Vera Pompa MD [address] [place] [address] PCP - General Family Medicine 12/06/11 Squirt Machine Operator Relationship Specialty Start Date End Date Vera Pompa MD [address] [place] [address] PCP - General Family Medicine 12/06/11 Squirt Machine Operator Relationship Specialty Start Date End Date Vera Pompa MD [address] [place] [address] PCP - General Family Medicine 12/06/11 Squirt Machine Operator Relationship Specialty Start Date End Date Vera Pompa MD [address] [place] [address] PCP - General Family Medicine 12/06/11 Squirt Machine Operator Relationship Specialty Start Date End Date Vera Pompa MD [address] [place] [address] PCP - General Family Medicine 12/06/11 Squirt Machine Operator Relationship Specialty Start Date End Date Vera Pompa MD [address] [place] [address] PCP - General Family Medicine 12/06/11 Team Status: Inactive Member Role Status Dates Dr. Vera Pompa MD Primary Care Provider Active Dr. Carroll Weaver MD Emergency Provider Active Squirt Machine Operator Relationship Specialty Start Date End Date Vera Pompa MD [address] [place] [address] PCP - General Family Medicine 12/06/11 Squirt Machine Operator Relationship Specialty Start Date End Date Vera Pompa MD [address] [place] [address] PCP - General Family Medicine 12/06/11 Squirt Machine Operator Relationship Specialty Start Date End Date Vera Pompa MD [address] [place] [address] PCP - General Family Medicine 12/06/11 Squirt Machine Operator Relationship Specialty Start Date End Date Vera Pompa MD [address] [place] [address] PCP - General Family Medicine 12/06/11 Squirt Machine Operator Relationship Specialty Start Date End Date Vera Pompa MD [address] [place] [address] PCP - General Family Medicine 12/06/11 Squirt Machine Operator Relationship Specialty Start Date End Date Vera Pompa MD [address] [place] [address] PCP - General Family Medicine 12/06/11 Squirt Machine Operator Relationship Specialty Start Date End Date Vera Pompa MD [address] [place] [address] PCP - General Family Medicine 12/06/11 Squirt Machine Operator Relationship Specialty Start Date End Date Vera Pompa MD [address] [place] [address] PCP - General Family Medicine 12/06/11 Squirt Machine Operator Relationship Specialty Start Date End Date Vera Pompa MD [address] [place] [address] PCP - General Family Medicine 12/06/11 Apryl Gorman APRN.TECHNICAL STENOGRAPHER [address] [place] [address] Documentation Manager Family Medicine 02/19/24 Luis Enrique Caicedo APRN.TECHNICAL STENOGRAPHER [address] [place] [address] Documentation Manager Family Medicine 02/28/24 Squirt Machine Operator Relationship Specialty Start Date End Date Vera Pompa MD [address] [place] [address] PCP - General Family Medicine 12/06/11 Apryl Gorman APRN.TECHNICAL STENOGRAPHER [address] [place] [address] Documentation Manager Family Medicine 02/19/24 Luis Enrique Caicedo DIRECTOR OF STUDENT AFFAIRS.TECHNICAL STENOGRAPHER [address] [place] [address] Documentation Manager Family Medicine 02/28/24 Squirt Machine Operator Relationship Specialty Start Date End Date Vera Pompa MD [address] [place] [address] PCP - General Family Medicine 12/06/11 Apryl Gorman DIRECTOR OF STUDENT AFFAIRS.TECHNICAL STENOGRAPHER [address] [place] [address] Documentation Manager Family Medicine 02/19/24 Luis Enrique Caicedo APRN.TECHNICAL STENOGRAPHER [address] [place] [address] Documentation Manager Family Medicine 02/28/24 Squirt Machine Operator Relationship Specialty Start Date End Date Vera Pompa MD [address] [place] [address] PCP - General Family Medicine 12/06/11 Apryl Gorman APRN.TECHNICAL STENOGRAPHER [address] [place] [address] Documentation Manager Family Medicine 02/19/24 Luis Enrique Caicedo DIRECTOR OF STUDENT AFFAIRS.TECHNICAL STENOGRAPHER [address] [place] [address] [facility] 02/28/24 Squirt Machine Operator Relationship Specialty Start Date End Date Vera Pompa MD [address] [place] [address] PCP - General Family Medicine 12/06/11 Apryl Gorman DIRECTOR OF STUDENT AFFAIRS.TECHNICAL STENOGRAPHER [address] [place] [address] [facility] 02/19/24 Luis Enrique Caicedo, DIRECTOR OF STUDENT AFFAIRS.TECHNICAL STENOGRAPHER [address] [place] [address] [facility] 02/28/24 Team Status: Active Member Role Status [...] May 09, 2024 End: May 25, 2024 Squirt Machine Operator Relationship Specialty Start Date End Date Vera Pompa MD [address] [place] [address] PCP - General Family Medicine 12/06/11 Apryl Gorman APRN.TECHNICAL STENOGRAPHER [address] [place] [address] Documentation Manager Family Medicine 02/19/24 Luis Enrique Caicedo APRN.TECHNICAL STENOGRAPHER [address] [place] [address] Documentation Manager Family Medicine 02/28/24 Squirt Machine Operator Relationship Specialty Start Date End Date Vera Pompa MD [address] [place] [address] PCP - General Family Medicine 12/06/11 Apryl Gorman APRN.TECHNICAL STENOGRAPHER [address] [place] [address] Documentation Manager Family Medicine 02/19/24 Luis Enrique Caicedo APRN.TECHNICAL STENOGRAPHER [address] [place] [address] Documentation Manager Family Medicine 02/28/24 Squirt Machine Operator Relationship Specialty Start Date End Date Vera Pompa MD [address] [place] [address] PCP - General Family Medicine 12/06/11 Apryl Gorman APRN.TECHNICAL STENOGRAPHER [address] [place] [address] Documentation Manager Family Medicine 02/19/24 Luis Enrique Caicedo APRN.TECHNICAL STENOGRAPHER [address] [place] [address] Documentation Manager [facility] Medicine 02/28/24 Squirt Machine Operator Relationship Specialty Start Date End Date Vera Pompa MD [address] [place] [address] PCP - General Family Medicine 12/06/11 Apryl Gorman APRN.TECHNICAL STENOGRAPHER [address] [place] [address] Documentation Manager [facility] 02/19/24 Luis Enrique Caicedo APRN.TECHNICAL STENOGRAPHER [address] [place] [address] Document[facility] 02/28/24 Team Status: Inactive Member Role Status Dates Dr. Vera Pompa MD Primary Care Provider Active Start: August 21, 2024 End: August 21, 2024 Dr. Graham Lozano MD Emergency Provider Active Sta rt: August 21, 2024 End: August 21, 2024 Squirt Machine Operator Relationship Specialty Start Date End Date Vera Pompa MD [address] [place] [address] PCP - General Family Medicine 12/06/11 Luis Enrique Caicedo DIRECTOR OF STUDENT AFFAIRS.TECHNICAL STENOGRAPHER [address] [place] [address] Document[facility] 02/28/24 Squirt Machine Operator Relationship Specialty Start Date End Date Vera Pompa MD [address] [place] [address] PCP - General Family Medicine 12/06/11 Luis Enrique Caicedo APRN.TECHNICAL STENOGRAPHER [address] [place], [place] [address] Documentation Manager [facility] 02/28/24 Squirt Machine Operator Relationship Specialty Start Date End Date Vera Pompa MD [address] [place], [place] [id number] PCP - General Family Medicine 12/06/11 Luis Enrique Caicedo APRN.TECHNICAL STENOGRAPHER [address] [place] [address] Documentation Manager [facility] 02/28/24 Team Status: Active Member Role/Relationship Status [...] September 13, 2024 End: September 13, 2024 Squirt Machine Operator Relationship Specialty Start Date End Date Vera Pompa MD [address] [place] [address] PCP - General Family Medicine 12/06/11 Luis Enrique Caicedo APRN.TECHNICAL STENOGRAPHER [address] [place] [address] Documentation Manager Family [facility] 02/28/24 Squirt Machine Operator Relationship Specialty Start Date End Date Vera Pompa MD [address] [place] [address] PCP - General Family Medicine 12/06/11 Luis Enrique Caicedo APRN.TECHNICAL STENOGRAPHER [address] [place] [address] Documentation Manager [facility] 02/28/24 Team Status: Inactive Member Role/Relationship Status Dates [...] September 13, 2024 Dr. Carroll Weaver MD Attending Provider Active S tart: September 13, 2024 End: September 13, 2024 Dr. Carroll Weaver MD Emergency Provider Active S tart: September 13, 2024 End: September 13, 2024 Team Status: Inactive Member Role/Relationship Status Dates Dr. Vera Pompa MD Primary Care Provider Active Start: September 23, 2024 End: September 23, 2024 Dr. Arcenio Trammell DO Emergency Provider Active Start: September 23, 2024 End: September 23, 2024 Team Status: Inactive Member Role/Relationship Status Dates Dr. Vera Pompa MD Primary Care Provider Active Start: September 23, 2024 End: September 23, 2024 Dr. Arcenio Trammell DO Attending Provider Active Start: September 23, 2024 End: September 23, 2024 Dr. Arcenio Trammell DO Emergency Provider Active Start: September 23, 2024 End: September 23, 2024 Team Status: Inactive Member Role/Relationship Status Dates Dr. Vera Pompa MD Primary Care Provider Active Start: September 27, 2024 End: September 27, 2024 Dr. Edward Humphreys MD Attending Provider Active Start: September 27, 2024 End: September 27, 2024 Dr. Edward Humphreys MD Referring Provider Active Start: September 27, 2024 End: September 27, 2024 Team Status: Inactive Member Role/Relationship Status Dates Dr. Vera Pompa MD Primary Care Provider Active Start: October 09, 2024 End: October 09, 2024 Dr. Nataly Vaughn DO Emergency Provider Active S tart: October 09, 2024 End: October 09, 2024 Squirt Machine Operator Relationship Specialty Start Date End Date Vera Pompa MD [address] [place] [address] PCP - General Family Medicine 12/06/11 Luis Enrique Caicedo APRN.TECHNICAL STENOGRAPHER [address] [place] [address] Documentation Manager Family Medicine 02/28/24 Goals (unrecognized section and content) Goals may be documented in a n alternate sectionGoals may be documented in an alternate sectionGoals may be documented in an alternate sectionGoals may be documented in an alternate sectionGoals may be documented in an alternate section INFORMATION SOURCE (unrecogn ized section and content) DATE CREATED AUTHOR 06/28/2024 [facility] DATE CREATED AUTHOR AUTHOR'S ORGANIZ ATION 12/01/2024 [facility] DATE CREATED AUTHOR AUTHOR'S ORGANIZ ATION 01/25/2025 [facility] FOR RECORDS PERTAINING TO PATIENTS WHO ARE [...] BE BASED ON THE PRIMARY CLINICAL RECORDS. [facility] [employer] [facility]. provides no warranty or guarantee of the accuracy or completeness of information in this document.
[2025-02-25] MEDS: 0.9% Saline Lock 10 ML Syringe IV (23:28)
[2025-02-26 03:15] VITALS: BP 132/84; PULSE 87; RESP 20; TEMP 36.6; O2SAT 94
[2025-02-26 07:01] LABS: Hematocrit 35.5 % (37-47); Hemoglobin 11.7 g/dL (12.0-15.0); Mean Corp Hgb Conc 33.0 g/dL (32-36); Mean Corpuscular Volume 90.1 fL (81-99); Mean Platelet Vol. 10.1 fl (6.2-12.0); Platelet Count 307 K/mm3 (150-450); RBC Distribution Width CV 13.2 % (11.6-14.6); RBC Distribution Width SD 43.3 fl (35.1-43.9); Red Blood Count 3.94 M/mm3 (4.2-5.4); White Blood Count 8.4 K/mm3 (4.4-11.0)
[2025-02-26 07:34] LABS: Anion Gap 11 (5-15); BUN 16 mg/dL (4-19); BUN/Creat Ratio 23.0 RATIO (10-20); Calcium,Total 8.7 mg/dL (7.6-11.0); Carbon Dioxide 22.4 mmol/L (21.0-32.0); Chloride 106 mmol/L (98-108); Estimated Creatinine Clearance 46.80 ml/min (50-250); Glucose 95 mg/dL (70-99); Potassium 3.9 mmol/L (3.3-5.1)
--- NOTE | 2025-02-26 07:59 | PCM.PN.HOSP ---
Reason for Visit Chief Complaint: Fall with left forearm pain and weakness Objective Data Objective Data Vital Signs: Vital Signs Temp Pulse Resp BP Pulse Ox O2 Del Method 98 F 87 20 H 132/84 H 94 Room Air 02/26/25 03:15 02/26/25 03:15 02/26/25 03:15 02/26/25 03:15 02/26/25 03:15 02/26/25 03:31 Oxygen Delivery Method Room Air Weight: 126 lb 15.78 oz Body Mass Index (BMI) 25.6 Intake & Output: Intake and Output for Last 24 Hours 02/24/25 02/25/25 02/26/25 23:59 23:59 23:59 Intake Total 500 / 600 200 / 200 Balance 500 / 600 200 / 200 Lab / Micro Data 02/26/25 06:17 02/26/25 06:17 Labs: Laboratory Results - last 24 hr 02/25/25 16:34: POC Glucose 104 02/25/25 18:12: WBC 12.7 H, RBC 4.34, Hgb 12.6, Hct 39.6, MCV 91.2, MCH 29.0, MCHC 31.8 L, RDW Std Deviation 42.5, RDW Coeff of Serafin 12.8, Plt Count 346, MPV 9.7, Immature Gran % (Auto) 0.400, Neut % (Auto) 83.4 H, Lymph % (Auto) 11.2 L, [place] % (Auto) 3.9, Eos % (Auto) 0.6, Baso % (Auto) 0.5, Absolute Neuts (auto) 10.6 H, Absolute Lymphs (auto) 1.42, Nucleated RBC % 0, Sodium 139, Potassium 4.5, Chloride 103, Carbon Dioxide 23.8, Anion Gap 13, BUN 20 H, Creatinine 0.71, Estim Creat Clear Calc 59.52, Est GFR (MDRD) Non-Af 88, BUN/Creatinine Ratio 27.6 H, Glucose 107 H, Calcium 9.2 02/25/25 19:02: Urine Color Yellow, Urine Clarity Clear, Urine pH 7.0, Ur Specific [place] 1.010, Urine Protein 15 H, Urine Glucose (UA) Normal, Urine Ketones Negative, Urine Occult Blood 10 H, Urine Nitrite Negative, Urine Bilirubin Negative, Urine Urobilinogen Normal, Ur Leukocyte Esterase 100 H, Urine RBC 0-5 SEEN, Urine WBC 5-10 SEEN, Ur Squamous Epith Cells 0-5 SEEN, Ur Renal Epithelial Cell 0 SEEN, Urine Bacteria 1+, Hyaline Casts 0-5 SEEN, Urine Mucus 1+ 02/26/25 06:17: WBC 8.4, RBC 3.94 L, Hgb 11.7 L, Hct 35.5 L, MCV 90.1, MCH 29.7, MCHC 33.0, RDW Std Deviation 43.3, RDW Coeff of Serafin 13.2, Plt Count 307, MPV 10.1, Sodium 139, Potassium 3.9, Chloride 106, Carbon Dioxide 22.4, Anion Gap 11, BUN 16, Creatinine 0.70, Estim Creat Clear Calc 46.80 L, Est GFR (MDRD) Non-Af 89, BUN/Creatinine Ratio 23.0 H, Glucose 95, Calcium 8.7 Radiography Diagnostic Testing: Radiology Impression Brain CT 02/25/25 18:02 IMPRESSION: No acute intracranial process. Reading Location: [facility] Chest X-Ray 02/25/25 18:02 IMPRESSION: Bilateral multilevel rib deformities likely chronic although if there is concern for acute fractures, consider dedicated rib series or CT for further evaluation. Reading Location: [facility] Forearm X-Ray 02/25/25 18:03 IMPRESSION: 1. Nondisplaced impacted transverse fracture of the distal radial metadiaphysis. 2. Minimally displaced oblique fracture of the distal ulnar shaft. 3. Nondisplaced fracture at the tip of the ulnar styloid process. Reading Location: [id number] Physical Exam Narrative Seen and examined Patient came to ED after she fell down in the kitchen on left arm, exact mechanism she does not remember. She says she probably passed out as she later on she was picked up by her . history of paroxysmal A-fib Physical exam General: Alert, Oriented x3, Cooperative HEENT: Atraumatic, PERRLA, EOMI, Normocephalic. Oral: No Gingival or Mucosal Lesions/ Ulcerations Neck: Supple, No JVD, Negative Carotid Bruits Chest wall/Lungs: Air entry diminished in bilateral lung bases. No crepitation/rhonchi Cardiovascular: Regular rate and rhythm, Normal S1,S2, No M/G/R Abdomen: Bowel Sounds Present, Soft, Non Tender, Non-Distended : No dysuria. No renal angle tenderness. No suprapubic tenderness. Extremities: No edema, Capillary Refill Less than 3 Seconds Skin: No rashes, No breakdown Musculoskeletal: Left arm is on the sling. there is no cast put on the forearm. Neurological: Cranial nerves II-XII grossly intact, DTR 2+/4. No acute focal neurological deficit. Psych/Mental Status: flat affect Assessment & Plan Assessment/Plan (1) Debility: (2) Left forearm fracture: PLAN: Plan Patient is a 79-year-old female who presented to [facility] ED on 02/25/2025 with left arm pain and weakness after a mechanical fall at home. 1. Acute on chronic debility due to left forearm fractures and generalized weakness after a mechanical fall at home ? Admit under observation status to [facility]. PT/OT/case management consulted. Left forearm x-ray with nondisplaced impacted transverse fracture of the distal radial metadiaphysis, minimally displaced oblique fracture of the distal ulnar shaft, and nondisplaced fracture of the tip of the ulnar styloid process. CT brain unremarkable. Patient typically uses walker at home. Suspect she will need SNF placement on discharge. Appreciate therapy recommendations. 02/26: Discussed with orthopedic surgeon Dr. Mcelroy. Left volar hard cast palpable. Discussed with Dr. Mcelroy. Does not need anything to be done at this time but follow-up with [facility] in 2 weeks. Chronic medical conditions: ? Class II obesity: BMI 39 on admit. Complicates hospital course and care. ? Anxiety/depression: Stable. Continue home fluoxetine. ? GERD: Continue home PPI. ? Hypothyroidism: Continue home Synthroid. ? Osteoporosis: Continue home bisphosphonate on discharge. ? Hyperlipidemia: Continue home statin. ? Recent history of nephrolithiasis: Follows with Dr. Chaidez. S/p cystoscopy with stone basket extraction and right ureteral stent placement for right ureteral calculus on 01/24, with subsequent stent removal on 01/28. UA unremarkable on this admission patient with no concerns for UTI or kidney stone at this time. Continue outpatient follow-up. Left intramedullary nailing in August 2022 DVT prophylaxis: Lovenox CODE STATUS: Full code, verified Expected disposition: Likely SNF, 1 to 2 days Total clinical time spent by myself addressing the patient's medical issues, reviewing all the data, and collaborating with patient's care team: 61 minutes.
[2025-02-26 08:25] VITALS: BP 138/80; PULSE 81; RESP 16; TEMP 36.6; O2SAT 94
[2025-02-26] MEDS: Cholecalciferol (VIT D3) 25 MCG TABLET (1,000 UNITS) 50 MCG PO (08:28)
--- NOTE | 2025-02-26 14:08 | DCINST_ITS ---
Discharge Instructions DC O2, CPAP, BIPAP needs Home O2 Discharge instructions: No Dressing / Incision Discharge Activity: Return to Normal Activity Weight Bearing Status: Weight bearing as tolerated Dressing / Incision Call your doctor if you observe: Fever of 101 or Higher, Coldness, Increased Pain, Numbness or Tingling, Change in Color, Inability to urinate, Inability to have a bowel movement, Shortness of breath, Dizziness, Fainting spells, Swelling in the ankles, Chest pain, Prolonged hiccupping, Increased palpitations (irregular heartbeat) and Calf discomfort Follow Up Care When: IN 2 WEEKS Test Results: Test results from this visit will be discussed in further detail at your follow- up appointment, if applicable. Discharge Plan Admission Admit Date/Time: 02/25/25 20:58 Attending Provider: James Sánchez Primary Care Provider: Apryl Gorman Consulting Providers: Brandon Perea; Cristobal Mcelroy Discharge Orders/Prescriptions Prescriptions: New tramadol 50 mg Tablet 50 mg PO TID PRN PRN (Reason: Pain Score 6-10) 3 Days Qty: 10 0RF Continued fluoxetine 40 mg capsule 40 mg PO DAILY atorvastatin 20 mg tablet 20 mg PO QHS Patient Comments: PT THINKS SHE IS TAKING SOMETHING FOR CHOLESTEROL AND THAT IT MAY BE ATORVASTATIN alendronate 70 mg tablet 70 mg PO QWEEK Rx Instructions: weekly. omeprazole 20 mg capsule,delayed release(DR/EC) 20 mg PO DAILY calcium carbonate 200 mg calcium (500 mg) Tablet,Chewable 500 mg PO TIDCM Qty: 30 0RF cholecalciferol (vitamin D3) 25 mcg (1,000 unit) Tablet 50 mcg PO DAILY Qty: 0 0RF Therapeutic-M 9 mg iron-400 mcg Tablet 1 tab PO DAILYCM Qty: 0 0RF cyclobenzaprine 5 mg tablet 5 mg PO TID PRN (Reason: pain) levothyroxine 125 mcg tablet 125 mcg PO DAILY acetaminophen 500 mg Tablet 1,000 mg PO Q8 PRN (Reason: pain) Referrals / Follow Up: Cristobal Mcelroy MD [Med Staff - Active Staff, Orthopedics] - Within 2 Weeks Referral Note: Left distal forearm, radius and ulnar fracture Apryl Gorman, AIRPLANE RENTAL CLERK-C [Primary Care Provider, Family Practice] - In 1 Week Disposition Disposition (needs filled in before D/C Order can be placed): Home Health Service
--- NOTE | 2025-02-26 14:12 | DS.PCM_ITS ---
Providers Date of Admission: 02/25/25 Date of Discharge: 02/26/25 Primary Care Physician: ADALBERTO Guy Consultations 02/26/25 08:04 Consult: Orthopedics Routine Consulting Provider: Cristobal Mcelroy Reason for Consult: left forearm distal radial and ulnar fracture EMERGENT Consult: No MD Notified: Yes Date Notified: 02/26/25 Time Notified: 08:04 Method of Notification: Text Reason For Visit: FALL WITH LEFT FORARM FRACTURE, DIFFICULTY W/ Diagnosis Discharge Diagnosis (1) Debility: Status: Acute Code(s): R53.81 - Other malaise (2) Left forearm fracture: Status: Acute Code(s): S52.92XA - Unspecified fracture of left forearm, initial encounter for closed fracture Plan Patient is a 79-year-old female who presented to [facility] ED on 02/25/2025 with left arm pain and weakness after a mechanical fall at home. 1. Acute on chronic debility due to left forearm fractures and generalized weakness after a mechanical fall at home ? Admit under observation status to [facility]. PT/OT/case management consulted. Left forearm x-ray with nondisplaced impacted transverse fracture of the distal radial metadiaphysis, minimally displaced oblique fracture of the distal ulnar shaft, and nondisplaced fracture of the tip of the ulnar styloid process. CT brain unremarkable. Patient typically uses walker at home. Suspect she will need SNF placement on discharge. Appreciate therapy recommendations. 02/26: Discussed with orthopedic surgeon Dr. Mcelroy. Left volar hard cast palpable. Discussed with Dr. Mcelroy. Does not need anything to be done at this time but follow-up with [facility] in 2 weeks. Patient was alerted to physical therapy and home health recommended. Discharged to home with follow-up to post orthopedic vitals in normal range. Unclear possible syncope: Patient does not remember. Blood pressure and heart rate normal range. secured entrance monitor shows sinus rhythm. Spontaneous recovery. Chronic medical conditions: ? Class II obesity: BMI 39 on admit. Complicates hospital course and care. ? Anxiety/depression: Stable. Continue home fluoxetine. ? GERD: Continue home PPI. ? Hypothyroidism: Continue home Synthroid. ? Osteoporosis: Continue home bisphosphonate on discharge. ? Hyperlipidemia: Continue home statin. ? Recent history of nephrolithiasis: Follows with Dr. Chaidez. S/p cystoscopy with stone basket extraction and right ureteral stent placement for right ureteral calculus on 01/24, with subsequent stent removal on 01/28. UA unremarkable on this admission patient with no concerns for UTI or kidney stone at this time. Continue outpatient follow-up. Left intramedullary nailing in August 2022 DVT prophylaxis: Lovenox CODE STATUS: Full code, verified Discharge medication reconciliation done. Discharge follow-up instructions completed. Discharge process discussed with the patient and all questions were answered to patient's satisfaction. Follow with PCP in 1 to 2 weeks Total time spent, exact 35 minutes on discharge meds reconciliation, examination, coordination of care with nurses and ancillary staff, review of imaging and blood test and discussion with the patient on follow-up instructions. Medications at Discharge Home Medications alendronate 70 mg tablet 70 mg PO QWEEK osteoporosis 09/07/22 atorvastatin 20 mg tablet 20 mg PO QHS HLD 09/07/22 fluoxetine 40 mg capsule 40 mg PO DAILY depression 09/07/22 omeprazole 20 mg capsule,delayed release 20 mg PO DAILY GERD 09/07/22 calcium carbonate 500 mg (2.5 x 200 mg calcium (500 mg)) PO TIDCM supplement #30 tabs 09/10/22 cholecalciferol (vitamin D3) 25 mcg (1,000 unit) tablet 50 mcg (2 x 25 mcg (1,000 unit)) PO DAILY #0 tabs 05/22/24 multivitamin-iron 9 mg-folic acid 400 mcg-calcium and minerals tablet (Therapeutic-M) 1 tab PO DAILYCM #0 tabs 05/22/24 acetaminophen 500 mg tablet 1,000 mg PO Q8 PRN pain 08/21/24 cyclobenzaprine 5 mg tablet 5 mg PO TID PRN pain 10/09/24 levothyroxine 125 mcg tablet 125 mcg PO DAILY 01/17/25 tramadol 50 mg tablet 50 mg PO TID PRN PRN Pain Score 6-10 3 days #10 tabs 02/26/25 Physical Exam Narrative Seen and examined Patient came to ED after she fell down in the kitchen on left arm, exact mechanism she does not remember. She says she probably passed out as she later on she was picked up by her . history of paroxysmal A-fib Physical exam General: Alert, Oriented x3, Cooperative HEENT: Atraumatic, PERRLA, EOMI, Normocephalic. Oral: No Gingival or Mucosal Lesions/ Ulcerations Neck: Supple, No JVD, Negative Carotid Bruits Chest wall/Lungs: Air entry diminished in bilateral lung bases. No crepitation/rhonchi Cardiovascular: Regular rate and rhythm, Normal S1,S2, No M/G/R Abdomen: Bowel Sounds Present, Soft, Non Tender, Non-Distended : No dysuria. No renal angle tenderness. No suprapubic tenderness. Extremities: No edema, Capillary Refill Less than 3 Seconds Skin: No rashes, No breakdown Musculoskeletal: Left arm is on the sling. there is no cast put on the forearm. Neurological: Cranial nerves II-XII grossly intact, DTR 2+/4. No acute focal neurological deficit. Psych/Mental Status: flat affect Weight / BMI Weight Weight: 126 lb 15.78 oz Body Mass Index (BMI) 25.6 ABG / Lab / Microbiology Data 02/26/25 06:17 02/26/25 06:17 Laboratory: Laboratory Results - last 24 hr 02/25/25 16:34: POC Glucose 104 02/25/25 18:12: WBC 12.7 H, RBC 4.34, Hgb 12.6, Hct 39.6, MCV 91.2, MCH 29.0, M CHC 31.8 L, RDW Std Deviation 42.5, RDW Coeff of Serafin 12.8, Plt Count 346, MPV 9.7, Immature Gran % (Auto) 0.400, Neut % (Auto) 83.4 H, Lymph % (Auto) 11.2 L, [place] % (Auto) 3.9, Eos % (Auto) 0.6, Baso % (Auto) 0.5, Absolute Neuts (auto) 10.6 H, Absolute Lymphs (auto) 1.42, Nucleated RBC % 0, Sodium 139, Potassium 4.5, Chloride 103, Carbon Dioxide 23.8, Anion Gap 13, BUN 20 H, Creatinine 0.71, Estim Creat Clear Calc 59.52, Est GFR (MDRD) Non-Af 88, BUN/Creatinine Ratio 27.6 H, Glucose 107 H, Calcium 9.2 02/25/25 19:02: Urine Color Yellow, Urine Clarity Clear, Urine pH 7.0, Ur Specific [place] 1.010, Urine Protein 15 H, Urine Glucose (UA) Normal, Urine Ketones Negative, Urine Occult Blood 10 H, Urine Nitrite Negative, Urine Bilirubin Negative, Urine Urobilinogen Normal, Ur Leukocyte Esterase 100 H, Urine RBC 0-5 SEEN, Urine WBC 5-10 SEEN, Ur Squamous Epith Cells 0-5 SEEN, Ur Renal Epithelial Cell 0 SEEN, Urine Bacteria 1+, Hyaline Casts 0-5 SEEN, Urine Mucus 1+ 02/26/25 06:17: WBC 8.4, RBC 3.94 L, Hgb 11.7 L, Hct 35.5 L, MCV 90.1, MCH 29.7, MCHC 33.0, RDW Std Deviation 43.3, RDW Coeff of Serafin 13.2, Plt Count 307, MPV 10.1, Sodium 139, Potassium 3.9, Chloride 106, Carbon Dioxide 22.4, Anion Gap 11, BUN 16, Creatinine 0.70, Estim Creat Clear Calc 46.80 L, Est GFR (MDRD) Non- Af 89, BUN/Creatinine Ratio 23.0 H, Glucose 95, Calcium 8.7 Radiography Diagnostic Testing: Radiology Impression Brain CT 02/25/25 18:02 IMPRESSION: No acute intracranial process. Reading Location: [facility] Chest X-Ray 02/25/25 18:02 IMPRESSION: Bilateral multilevel rib deformities likely chronic although if there is concern for acute fractures, consider dedicated rib series or CT for further evaluation. Reading Location: [facility] Forearm X-Ray 02/25/25 18:03 IMPRESSION: 1. Nondisplaced impacted transverse fracture of the distal radial metadiaphysis. 2. Minimally displaced oblique fracture of the distal ulnar shaft. 3. Nondisplaced fracture at the tip of the ulnar styloid process. Reading Location: [facility] D/C Instructions Weight Bearing Status: Weight bearing as tolerated Call your doctor if you observe: Fever of 101 or Higher, Coldness, Increased Pain, Numbness or Tingling, Change in Color, Inability to urinate, Inability to have a bowel movement, Shortness of breath, Dizziness, Fainting spells, Swelling in the ankles, Chest pain, Prolonged hiccupping, Increased palpitations (irregular heartbeat) and Calf discomfort DC O2, CPAP, BIPAP Needs Home O2 Discharge instructions: No When: IN 2 WEEKS Meaningful Use Info Meaningful Use Meaningful Use Diagnoses (Choose all that apply): None applicable Discharge Plan Admission Admit Date/Time: 02/25/25 20:58 Attending Provider: James Sánchez Primary Care Provider: Apryl Gorman Consulting Providers: Brandon Perea; Cristobal Mcelroy Discharge Orders/Prescriptions Prescriptions: New tramadol 50 mg Tablet 50 mg PO TID PRN PRN (Reason: Pain Score 6-10) 3 Days Qty: 10 0RF Continued fluoxetine 40 mg capsule 40 mg PO DAILY atorvastatin 20 mg tablet 20 mg PO QHS Patient Comments: PT THINKS SHE IS TAKING SOMETHING FOR CHOLESTEROL AND THAT IT MAY BE ATORVASTATIN alendronate 70 mg tablet 70 mg PO QWEEK Rx Instructions: weekly. omeprazole 20 mg capsule,delayed release(DR/EC) 20 mg PO DAILY calcium carbonate 200 mg calcium (500 mg) Tablet,Chewable 500 mg PO TIDCM Qty: 30 0RF cholecalciferol (vitamin D3) 25 mcg (1,000 unit) Tablet 50 mcg PO DAILY Qty: 0 0RF Therapeutic-M 9 mg iron-400 mcg Tablet 1 tab PO DAILYCM Qty: 0 0RF cyclobenzaprine 5 mg tablet 5 mg PO TID PRN (Reason: pain) levothyroxine 125 mcg tablet 125 mcg PO DAILY acetaminophen 500 mg Tablet 1,000 mg PO Q8 PRN (Reason: pain) Referrals / Follow Up: Cristobal Mcelroy MD [Med Staff - Active Staff, Orthopedics] - Within 2 Weeks Referral Note: Left distal forearm, radius and ulnar fracture Apryl Gorman, FARM ADVISOR-C [Primary Care Provider, Family Practice] - In 1 Week Disposition Disposition (needs filled in before D/C Order can be placed): Home Health Service Charges/Coding Visit Charges Inpatient E&M: 91890 Disch Hosp >30min
--- NOTE | 2025-02-26 14:24 | CASEMGMT ---
Patient has order for discharge. RN CM reviewed therapy notes, patient ambulated 150ft contact guard and could go home with help. RN CM in to discuss needs at discharge, at bedside. RN CM discuss additional therapy at discharge. Patient and states they would like to follow-up with PCP or ortho first. Patient and deny needs or help at discharge. Patient and had no further questions or concerns.
[2025-02-26 14:25] VITALS: BP 111/80; PULSE 99; RESP 18; TEMP 36.4; O2SAT 96
--- NOTE | 2025-02-26 14:43 | PHA.DC.MC.R ---
Pharmacy [facility] Counseling Pharmacy Service has performed discharge medication reconciliation and counseling for this patient. 1. TRAMADOL 50MG PO TID PRN PAIN The patient's discharge medication list was reviewed for discrepancies and discrepancies were resolved. The patient was counseled on the following discharge medications and changes in medications for homegoing were reviewed. The Reason for Use, instructions for use, and potential side effects were reviewed for all new medications. The patient's questions regarding all of their medications were answered. The patient was able to verbally demonstrate an understanding of their discharge medications. Medications at Discharge Home Medications alendronate 70 mg tablet 70 mg PO QWEEK osteoporosis 09/07/22 atorvastatin 20 mg tablet 20 mg PO QHS HLD 09/07/22 fluoxetine 40 mg capsule 40 mg PO DAILY depression 09/07/22 omeprazole 20 mg capsule,delayed release 20 mg PO DAILY GERD 09/07/22 calcium carbonate 500 mg (2.5 x 200 mg calcium (500 mg)) PO TIDCM supplement #30 tabs 09/10/22 cholecalciferol (vitamin D3) 25 mcg (1,000 unit) tablet 50 mcg (2 x 25 mcg (1,000 unit)) PO DAILY vitamin #0 tabs 05/22/24 multivitamin-iron 9 mg-folic acid 400 mcg-calcium and minerals tablet (Therapeutic-M) 1 tab PO DAILYCM vitamin #0 tabs 05/22/24 acetaminophen 500 mg tablet 1,000 mg PO Q8 PRN pain 08/21/24 cyclobenzaprine 5 mg tablet 5 mg PO TID PRN pain 10/09/24 levothyroxine 125 mcg tablet 125 mcg PO DAILY thyroid 01/17/25 tramadol 50 mg tablet 50 mg PO TID PRN PRN Pain Score 6-10 3 days #10 tabs 02/26/25
== END 2025-02-26 14:54 | disposition home health service (06) ==
LOC: ED 21:06 → PCU 22:13
PROVIDERS: Emergency Medicine; Admitting Provider Hospitalist; Emergency Provider Emergency Medicine; PCP Nurse Practitioner Family; Visit Provider Internal Medicine
DX: M80.032A Age-related osteoporosis with current pathological fracture, left forearm, initial encounter for fracture (principal); I48.0 Paroxysmal atrial fibrillation; R53.81 Other malaise; Z79.899 Other long term (current) drug therapy; R41.82 Altered mental status, unspecified; E78.5 Hyperlipidemia, unspecified; F32.A Depression, unspecified; F41.9 Anxiety disorder, unspecified; E03.9 Hypothyroidism, unspecified; R53.1 Weakness; I10 Essential (primary) hypertension; E66.812 Obesity, class 2; Z68.39 Body mass index [BMI] 39.0-39.9, adult; R26.2 Difficulty in walking, not elsewhere classified; M79.7 Fibromyalgia; Z79.890 Hormone replacement therapy; K21.9 Gastro-esophageal reflux disease without esophagitis; Y92.009 Unspecified place in unspecified non-institutional (private) residence as the place of occurrence of the external cause
CPT/HCPCS: 36415; 70450; 71045; 73090; 80048; 81001; 82962; 85025; 85027; 87086; 93005; 96360; 96372; 97162; 97166; 99221; 99285; A4216; G0378